=== PATIENT | female | born 1955 | race Caucasian/White ===

== ENCOUNTER 2016-12-29 13:51 | Emergency (ER) | payer OTHER ==
[~2016-12-29] VITALS: Ht 157.5 cm; Wt 75.0 kg
[~2016-12-29 13:51] MED LIST: ADV1DS IH; AGM875T PO; ALBU2.5V4 IH; ALBU8.5H2 IH; AZEL137S11 NS; AZEL137S4 NS; AZIT-21 PO; AZIT250T5 PO; BENZ200C25 PO; BENZ200C51 PO; CETI10CA PO; CHLO500T2 PO; CHLO500T4 PO; CIPR500S2 PO; CODE118S2 PO; CYCL10TA9 PO; DIPH25TA82 PO; DOXY100C2 PO; FEXO180T84 PO; FLT05NA16 NS; FLUT16SP22 NS; FLUT1DIS3 IH; GABA-488 PO; GABA-490 PO; HYDR-3812 PO; HYDR-757 PO; IBUP-1780 PO; IBUP800T26 PO; LACT1CAP62 PO; LEVO500T2 PO; MELO-170 PO; METH4TAB PO; MINO100C6 PO; MMT17NA; MNTL10T PO; NAPR500T PO; OMAL150V SQ; OMEP-10 PO; OMEP20TA7 PO; OMEPRAZOLE; ONDA4TAB8 PO; PHEN200T27 PO; PRCD5U PO; PRD20T PO; TIOT18CA2 IH; TRAM50TA2 PO; flexeril PO
--- OUTSIDE RECORDS SUMMARY | 2016-12-29 13:57 | XMS REPORT | Continuity of Care Document ---
Author Author [facility] Organization [facility] Address Unknown Phone Unavailable Care Team Providers Care Talent Director Name Role Phone [facility] PCP Insurance Providers Payer Name Policy Number Subscriber Name Relationship Self Pay Devi You 18 Self / Same As Patient Advance Directives Directive Response Recorded Date/Time Advance Directives No 09/24/16 12:05pm Health Care Power of Authorizer No 09/24/16 12:05pm Organ Donor Yes 09/24/16 [...] Inhalation Twice A Day 1 PUFF Tiotropium [place] 1 Inh 1 Inh Inhalation Daily 04/17/15 [...] Salmeterol Xinafoate/Fluticasone 250 Mcg/50 Mcg Inh, 1 [place] Inhalation Every 12 Hours 06/08/14 Discontinued Mometasone Furoate 17 Gm Naspr, 1 [place] Nasal Twice A Day 06/08/14 Discontinued Meloxicam 7.5 Mg Tablet, 1 Each Oral Daily 06/08/14 Discontinued [Omeprazole] , Mg Three Times A Day 06/08/14 Discontinued Ciprofloxacin 500 Mg/5 Ml [place]..rec, 500 Mg Oral Twice A Day 06/08/14 Discontinued Phenazopyridine Hcl 200 Mg Tablet, 1 Each Oral Twice A Day 06/08/14 Discontinued Fluticasone Propionate 16 Gm [place], 1 [place] Nasal Daily 07/28/14 Discontinued Fexofenadine Hcl 180 [...] 08/20/15 Discontinued Azelastine Hcl 137 Mcg/0.137 Ml [place].pump, 137 Mcg Nasal 01/28/16 Discontinued Omeprazole 20 [...] Reaction Status Last Updated Sulfa (Sulfonamide Antibiotics) ([id number]) Allergy Unknown Active 03/17 Immunizations No immunization records. Vital Signs Acute Vital Signs Vital Response Date/Time Temperature (Fahrenheit) 97.3 degrees F (97.6 - 99.5) 09/28/2016 11:40am Temperature (Calculated Celsius) 36.03737 degrees C (36.4 - 37.5) 09/28/2016 11:40am [...] 2.00 inches 09/28/2016 11:40am Height (Calculated Centimeters) 157.243755 cm 09/28/2016 11:40am Weight (Pounds) 147 pounds 09/28/2016 11:40am Weight (Ounces) 5.3 oz 09/28/2016 11:40am Weight (Calculated Grams) 81358.332 gm 09/28/2016 11:40am Weight (Calculated Kilograms) 66.123839 kilograms 09/28/2016 11:40am Capillary Refill Capillary Refill Less Than 3 Seconds 09/28/2016 11:40am Height 5 ft 2 in Weight 147 lb Body Mass Index 26.9 kg/m^2 Results No known relevant diagnostic tests, laboratory data and/or discharge summary. Procedures No known history of procedures. Encounters Encounter Location Arrival/Admit Date Discharge/Depart Date Attending Provider Discharged Rec[facility]ring [facility] 09/28/16 11:08am 11:59pm LALITHA SQUIRES DO Departed Emergency Room [facility] 09/24/16 11:34am 2:09pm OBDULIO FOSTER MD Registered Clinic [facility] 09/04/16 1:47pm YVETTE ROSA
[2016-12-29] MEDS ORDERED: PRD20T PO (14:45)
[2016-12-29] MEDS ORDERED: TRAM-42 PO (14:45)
--- NOTE | 2016-12-29 14:45 | ED Hip Pain/Injury ---
General Chief Complaint: Hip/Pelvic Problems Stated Complaint: L HIP AND BACK PAIN Source: patient Exam Limitations: no limitations History of Present Illness Time seen by provider: 14:41 Initial Comments To ER with left hip pain for several years. She's had this evaluated by her doctor with x-rays and no findings she states. Over the course of the past week she's had pain in the left side of the low back that radiates down the left leg worse than usual. No loss of bowel or bladder control. No history of cancer. No fevers or chills. No saddle anesthesia. She's been taking Motrin at home with some relief. She denies any twisting or falling or any injury Timing/Duration: week Severity: moderate Location: hip (L) Method of Injury: unknown Allergies and Home Medications Allergies Coded Allergies: Sulfa (Sulfonamide Antibiotics) (Unverified Allergy, Unknown, 06/08/14) Home Medications Albuterol 8.5 Gm Hfa.aer.ad 1 PUFF IH Q4H PRN PRN SHORTNESS OF BREATH (Reported ) 1 PUFFS Albuterol Sulfate 2.5 Mg/3 Ml Vial.neb #30 2.5 MG IH Q4H PRN PRN SHORTNESS OF BREATH Prescribed by: OBDULIO BAUGH on 09/24/16 1352 Azelastine Hcl 137 Mcg [place].pump 2 SPRAYS NS BID (Reported) Benzonatate 200 Mg Capsule #20 200 MG PO TID PRN PRN COUGH Prescribed by: OBDULIO BAUGH on 09/24/16 1352 Cetirizine Hcl 10 Mg Capsule 10 MG PO DAILY (Reported) Chlorzoxazone 500 Mg Tablet 500 MG PO TID (Reported) Chlorzoxazone 500 Mg Tablet 500 MG PO TID (Reported) Diphenhydramine Hcl 25 Mg Tablet 1 EACH PO HS (Reported) Fluticasone Propionate 16 Gm [place].susp 16 GM NS BID (Reported) Fluticasone/Salmeterol 1 Each Disk.w.dev 0 IH BID (Reported) 1 PUFF Gabapentin 300 Mg Capsule 300 MG PO DAILY (Reported) Ibuprofen 800 Mg Tablet 800 MG PO Q8H PRN PRN PAIN (Reported) Montelukast Sodium 10 Mg Tablet #30 1 TAB PO DAILY (Reported) Naproxen 500 Mg Tablet #20 500 MG PO BID Prescribed by: SITA VERDUZCO on 06/19/162055 Omalizumab 150 Mg [place] 150 MG SQ UD (Reported) Omeprazole 20 Mg Capsule.dr 40 MG PO BID (Reported) Prednisone 20 Mg Tab #10 40 MG PO DAILY Prescribed by: SITA VERDUZCO on 06/19/162055 Tiotropium [place] 1 Inh Aerp 1 INH IH DAILY (Reported) Tramadol HCl 50 Mg Tablet #14 50 MG PO Q4H PRN PRN PAIN Prescribed by: SITA VERDUZCO on 06/19/162055 Constitutional: see HPI EENTM: see HPI Respiratory: no symptoms reported Cardiovascular: no symptoms reported Genitourinary: no symptoms reported Musculoskeletal: see HPI back pain Skin: no symptoms reported Psychiatric/Neurological: No Symptoms Reported Past Sjanchn-Fxtync-Exunri Hx Patient Social History Alcohol Use: Denies Use Recreational Drug Use: No Smoking Status: Never a Smoker Recent Foreign Travel: No Contact w/Someone Who Travel: No Recent Hopitalizations: No Immunizations Up To Date Tetanus Booster (TDap): Unknown Date of Influenza Vaccine: Aug 06, 2016 Seasonal Allergies Seasonal Allergies: Yes Surgeries HX Surgeries: Yes (HAITAL HERNIA REPAIR, CARPAL TUNNEL) Surgeries: Abdominal, Gallbladder, Hysterectomy, Orthopedic Respiratory Hx Respiratory Disorders: Yes Respiratory Disorders: Asthma, COPD Cardiovascular Hx Cardiac Disorders: No Neurological Hx Neurological Disorders: No 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 System Hx 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 Disorders: No SUPPLIES PACKER History: Hysterectomy Genitourinary Hx Genitourinary Disorders: No Gastrointestinal Hx Gastrointestinal Disorders: Yes Gastrointestinal Disorders: Gastroesophageal Reflux Musculoskeletal Hx Musculoskeletal Disorders: Yes (OSTEOARTHRITIS) Musculoskeletal Disorders: Arthritis Endocrine Hx Endocrine Disorders: No HEENT HX ENT Disorders: No Loss of Vision: Bilateral Hearing Impairment: Denies Cancer Hx Cancer: No Psychosocial Hx Psychiatric Problems: No Integumentary HX Skin/Integumentary Disorder: No Blood Transfusions Hx Blood Disorders: No Adverse Reaction to a Blood Tr: No Physical Exam Vital Signs Capillary Refill : General Appearance: No Apparent Distress WD/WN HEENT: PERRL/EOMI TMs Normal Neck: Full Range of Motion Normal Inspection Non Tender Cardiovascular: Regular Rate, Rhythm Normal Peripheral Pulses Respiratory: Normal Breath Sounds No Accessory Muscle Use No Respiratory Distress Gastrointestinal: Normal Bowel Sounds Non Tender Soft Back: Normal Inspection Extremity: Normal Capillary Refill Normal Range of Motion Neurologic/Psychiatric: Alert Oriented x3 No Motor/Sensory Deficits Skin: Normal Color Warm/Dry Comments Positive straight leg raise on the left. Normal sensation in the toes Departure Impression Impression: Primary Impression: Lumbar radiculopathy Disposition: 01 HOME, SELF-CARE Condition: Stable Departure-Patient Inst. Decision time for Depature: 14:42 Referrals: [facility] (PCP/Family) Primary Care Physician Patient Instructions: Radiculopathy Add. Discharge Instructions: 1. Return to ER for any concerns 2. Follow-up with your doctor next week to discuss whether or not to obtain an MRI of your back 3. Steroids and pain medication as directed All discharge instructions reviewed with patient and/or family. Voiced understanding. Scripts Tramadol HCl (Ultram)50 Mg Jioabx23 Mg PO Q6H PRN PAIN #14 TAB Prov:NILA LEE APRN 12/29/16 Prednisone 20 Mg Tab40 Mg PO DAILY #8 TAB Prov:NILA LEE APRN 12/29/16 NILA LEE APRN Dec 29, 2016 14:45
[2016-12-29 14:56] VITALS: BP 126/81
== END 2016-12-29 14:56 | disposition home or self-care (01) ==
LOC: EDUNIT# 13:51 → ER 13:52
DX: M54.16 Radiculopathy, lumbar region (principal); J44.9 Chronic obstructive pulmonary disease, unspecified; Z79.899 Other long term (current) drug therapy
CPT/HCPCS: 99283

== ENCOUNTER 2017-01-22 13:47 | Outpatient (RCR) | payer OTHER ==
--- OUTSIDE RECORDS SUMMARY | 2016-10-26 09:56 | XMS REPORT | Continuity of Care Document ---
Author Author [facility] Organization [facility] Address Unknown Phone Unavailable Care Team Providers Care Vice President For Philanthropy Name Role Phone [facility] OF PCP Insurance Providers Payer Name Policy Number Subscriber Name Relationship Self Pay Devi You 18 Self / Same As Patient Advance Directives Directive Response Recorded Date/Time Advance Directives No 09/24/16 12:05pm Health Care Power of Bilingual Speech Therapist No 09/24/16 12:05pm Organ Donor Yes 09/24/16 12:05pm Problems Active Problems Medical Problem Onset Date Status Acute low back pain Unknown Acute Bronchitis Unknown Acute COPD exacerbation Unknown Acute Chronic cough Unknown Acute Concussion without loss of consciousness Unknown Acute Dog bite Unknown Acute Effusion, right knee Unknown Acute Fall Unknown Acute Gastroenteritis Unknown Acute Infiltrate noted on imaging study Unknown Acute Pain in right paraspinal region Unknown Acute Pyelonephritis Unknown Acute Right knee pain Unknown Acute Right shoulder strain Unknown Acute Soft tissue infection Unknown Acute Urinary tract infection Unknown Acute Medications Current Home Medications Medication Dose Units Route Directions Days/Qty Instructions Start Date Azelastine Hcl 137 Mcg 2 Sprays Nasal Twice A Day 06/08/14 Gabapentin 300 Mg 300 Mg Oral Daily 06/08/14 Diphenhydramine Hcl (Benadryl) 25 Mg 1 Each Oral Bedtime 07/28/14 Montelukast Sodium 10 Mg 1 Tab Oral Daily 30 07/28/14 Albuterol 8.5 Gm 1 Puff Inhalation Every 4HRS as needed for Shortness Of Breath 1 PUFFS 07/28/14 Fluticasone/Salmeterol 1 Each 0 Inhalation Twice A Day 1 PUFF Tiotropium [place] 1 Inh 1 Inh Inhalation Daily 04/17/15 Cetirizine Hcl 10 Mg 10 Mg Oral Daily 04/17/15 Omeprazole 20 Mg 40 Mg Oral Twice A Day 04/17/15 Chlorzoxazone 500 Mg 500 Mg Oral Three Times A Day 04/17/15 Omalizumab 150 Mg 150 Mg Sub-Q As Directed 01/28/16 Fluticasone Propionate 16 Gm 16 Gm Nasal Twice A Day 01/28/16 Chlorzoxazone 500 Mg 500 Mg Oral Three Times A Day 01/28/16 Ibuprofen 800 Mg 800 Mg Oral Every 8HRS as needed for Pain 01/28/16 Prednisone 20 Mg 40 Mg Oral Daily 10 06/19/16 Naproxen 500 Mg 500 Mg Oral Twice A Day 20 06/19/16 Tramadol Hcl 50 Mg 50 Mg Oral Every 4HRS as needed for Pain 14 Prednisone 20 Mg 20 Mg Oral As Directed 18 3 daily for 3 days, then 2 daily for 3 days, then one daily for 3 days 09/24/16 Azithromycin 250 Mg 250 Mg Oral As Directed 6 TAKE 2 TABLETS ON DAY ONE THEN TAKE 1 TABLET DAILY FOR FOUR MORE DAYS 09/24/16 Benzonatate 200 Mg 200 Mg Oral Three Times A Day as needed for Cough 20 09/24/16 Albuterol Sulfate 2.5 Mg/3 Ml 2.5 Mg Inhalation Every 4HRS as needed for Shortness Of Breath 30 09/24/16 Past Home Medications Medication Directions Ordered Status Salmeterol Xinafoate/Fluticasone 250 Mcg/50 Mcg Inh, 1 [place] Inhalation Every 12 Hours 06/08/14 Discontinued Mometasone Furoate 17 Gm Naspr, 1 [place] Nasal Twice A Day 06/08/14 Discontinued Meloxicam 7.5 Mg Tablet, 1 Each Oral Daily 06/08/14 Discontinued [Omeprazole] , Mg Three Times A Day 06/08/14 Discontinued Ciprofloxacin 500 Mg/5 Ml [place]..rec, 500 Mg Oral Twice A Day 06/08/14 Discontinued Phenazopyridine Hcl 200 Mg Tablet, 1 Each Oral Twice A Day 06/08/14 Discontinued Fluticasone Propionate 16 Gm [place], 1 [place] Nasal Daily 07/28/14 Discontinued Fexofenadine Hcl 180 Mg Tablet, 180 Mg Oral Daily 07/28/14 Discontinued Cyclobenzaprine Hcl (Flexeril) 10 Mg Tablet, 1 Each Oral Q8hr Prn as needed for Spasms 07/28/14 Discontinued Promethazine/Codeine 5 Ml Syrp, 5-10 Ml Oral Every 6 Hours as needed for Cough 12/26/14 Discontinued Mometasone Furoate 17 Gm Naspr, 1 Gm Nasal 02/03/15 Discontinued Ibuprofen (Motrin) 800 Mg Tablet, 800 Mg Oral Every 8 Hours as needed for Pain 02/03/15 Discontinued Azithromycin (Zpak) 250 Mg Tab, 0 Oral Z-Dwight 04/17/15 Discontinued Benzonatate (Tessalon Perles) 200 Mg Capsule, 1 Each Oral Give Every 8 Hrs On Schedule as needed for Cough 04/17/15 Discontinued Promethazine Hcl/Codeine 120 Ml Syrup, 1 Tsp Oral Every 6 Hours as needed for Cough 04/17/15 Discontinued Amoxicillin/Clavulanate K 875 Mg Tab, 1 Tab Oral Twice A Day 05/02/15 Discontinued Doxycycline Hyclate (Vibramycin) 100 Mg Capsule, 1 Each Oral Twice A Day 02/16 Discontinued Lactobacillus Acidophilus 1 Each Capsule, 1 Each Oral Twice A Day 05/07/15 Discontinued Hydrocodone Bit/Acetaminophen 1 Each Tablet, 1 Ea Oral Every 6 Hours as needed for Severe Pain 05/07/15 Discontinued Minocycline Hcl 100 Mg Capsule, 100 Mg Oral Twice A Day 05/07/15 Discontinued Hydrocodone/Acetaminophen 1 Each Tablet, 1-2 Each Oral Every 6 Hours as needed for Pain 08/08/15 Discontinued [Flexeril] , 10 Mg Oral Twice A Day 08/20/15 Discontinued Azithromycin 250 Mg Tablet, 250 Mg Oral As Directed 08/20/15 Discontinued Methylprednisolone 4 Mg Tab.ds.pk, 4 Mg Oral As Directed 08/20/15 Discontinued Levofloxacin 500 Mg Tablet, 500 Mg Oral Daily 08/20/15 Discontinued Azelastine Hcl 137 Mcg/0.137 Ml [place].pump, 137 Mcg Nasal 01/28/16 Discontinued Omeprazole 20 Mg Tablet.dr, 40 Mg Oral Twice A Day 01/28/16 Discontinued Gabapentin 400 Mg Capsule, 400 Mg Oral 01/28/16 Discontinued Ondansetron 4 Mg Tab.rapdis, 4 Mg Oral Every 4HRS for Nausea/Vomiting Discontinued Social History Social History Problem Response Recorded Date/Time Alcohol Use Denies Use 01/28/2016 12:29am Recreational Drug Use No 01/28/2016 12:29am Recent Foreign Travel No 07/04/2016 9:26am Do you dip or chew tobacco? No 01/28/2016 12:29am Recent Hopitalizations No 09/24/2016 12:05pm Hospital Discharge Instructions No hospital discharge instructions. Plan of Care Prescriptions See Medication Section Functional Status No functional status results. Allergies, Adverse Reactions, Alerts Allergen Type Severity Reaction Status Last Updated Sulfa (Sulfonamide Antibiotics) ([id number]) Allergy Unknown Active 03/17 Immunizations No immunization records. Vital Signs Acute Vital Signs Vital Response Date/Time Temperature (Fahrenheit) 97.3 degrees F (97.6 - 99.5) 09/28/2016 11:40am Temperature (Calculated Celsius) 36.20939 degrees C (36.4 - 37.5) 09/28/2016 11:40am Temperature Source Temporal 09/28/2016 11:40am Pulse Rate (adult) 97 bpm (60 - 90) 09/28/2016 11:40am Respiratory Rate 16 bpm (12 - 24) 09/28/2016 11:40am O2 Sat by Pulse Oximetry 98 % (88 - 100) 09/24/2016 2:09pm Blood Pressure 124/73 mm Hg 09/28/2016 11:40am Blood Pressure Mean 90 mm Hg 09/28/2016 11:40am Pain Numeric Pain Scale 0-No Pain 09/28/2016 11:40am Height (Feet) 5 feet 09/28/2016 11:40am Height (Inches) 2.00 inches 09/28/2016 11:40am Height (Calculated Centimeters) 157.050091 cm 09/28/2016 11:40am Weight (Pounds) 147 pounds 09/28/2016 11:40am Weight (Ounces) 5.3 oz 09/28/2016 11:40am Weight (Calculated Grams) 34805.332 gm 09/28/2016 11:40am Weight (Calculated Kilograms) 66.775412 kilograms 09/28/2016 11:40am Capillary Refill Capillary Refill Less Than 3 Seconds 09/28/2016 11:40am Height 5 ft 2 in Weight 147 lb Body Mass Index 26.9 kg/m^2 Results No known relevant diagnostic tests, laboratory data and/or discharge summary. Procedures No known history of procedures. Encounters Encounter Location Arrival/Admit Date Discharge/Depart Date Attending Provider Discharged [facility]ring [facility] 09/28/16 11:08am 11:59pm LALITHA SQUIRES DO Departed Emergency Room [facility] 09/24/16 11:34am 2:09pm OBDULIO FOSTER MD Registered Clinic [facility] 09/04/16 1:47pm YVETTE ROSA
[2016-10-26] MEDS: OMALIZUMAB 150 MG (XOLAIR) VIAL FREE STOCK SQ SCH (10:29)
[2016-10-26 10:34] VITALS: BP 114/73
[2016-11-27] MEDS: OMALIZUMAB 150 MG (XOLAIR) VIAL FREE STOCK SQ SCH (13:09)
[2016-11-27 13:10] VITALS: BP 112/71
[2016-12-25 13:45] VITALS: BP 117/74
[2016-12-25] MEDS: OMALIZUMAB 150 MG (XOLAIR) VIAL FREE STOCK SQ SCH (13:45)
[~2017-01-22] VITALS: Ht 157.5 cm; Wt 66.8 kg
[~2017-01-22 13:47] MED LIST changes: +TRAM-42 PO
[2017-01-22] MEDS: OMALIZUMAB 150 MG (XOLAIR) VIAL FREE STOCK SQ SCH (14:31)
[2017-01-22 14:35] VITALS: BP 134/83
== END 2017-01-24 | disposition home or self-care (01) ==
LOC: SDC 13:47
PROVIDERS: ATTEND Internal Medicine Critical Care Medicine
DX: J45.909 Unspecified asthma, uncomplicated (principal); J44.9 Chronic obstructive pulmonary disease, unspecified; R05 Cough; R06.00 Dyspnea, unspecified
CPT/HCPCS: 96372

== ENCOUNTER 2017-04-26 10:53 | Outpatient (RCR) | payer OTHER ==
[2017-02-22 12:49] VITALS: BP 130/80
[2017-02-22] MEDS: OMALIZUMAB SUB-Q 150 MG (XOLAIR) VIAL SQ SCH (12:49)
[2017-03-29 10:20] VITALS: BP 112/78
[2017-03-29] MEDS: OMALIZUMAB SUB-Q 150 MG (XOLAIR) VIAL SQ SCH (10:58)
[~2017-04-26] VITALS: Ht 157.5 cm; Wt 66.8 kg
[2017-04-26 11:30] VITALS: BP 126/73
[2017-04-26] MEDS: OMALIZUMAB SUB-Q 150 MG (XOLAIR) VIAL SQ SCH (11:35)
== END 2017-05-23 | disposition home or self-care (01) ==
LOC: SDC 10:53
PROVIDERS: ATTEND Internal Medicine Critical Care Medicine
DX: J45.909 Unspecified asthma, uncomplicated (principal); J44.9 Chronic obstructive pulmonary disease, unspecified; R05 Cough; R06.00 Dyspnea, unspecified
CPT/HCPCS: 96372

== ENCOUNTER 2017-07-22 11:22 | Outpatient (RCR) | payer OTHER ==
[2017-05-27] MEDS: OMALIZUMAB SUB-Q 150 MG (XOLAIR) VIAL SQ SCH (11:59)
[2017-05-27 12:16] VITALS: BP 117/74
[2017-06-24] MEDS: OMALIZUMAB SUB-Q 150 MG (XOLAIR) VIAL SQ SCH (11:29)
[2017-06-24 11:31] VITALS: BP 123/84
[~2017-07-22] VITALS: Ht 157.5 cm; Wt 66.8 kg
[~2017-07-22 11:22] MED LIST changes: +LORazepam INJ 2 MG/ML (ATIVAN) VIAL ONE
[2017-07-22] MEDS ORDERED: OMALIZUMAB 150 MG (XOLAIR) VIAL FREE STOCK SQ SCH (11:30)
[2017-07-22 12:05] VITALS: BP 119/75
== END 2017-08-03 | disposition home or self-care (01) ==
LOC: SDC 11:22
PROVIDERS: ATTEND Internal Medicine Critical Care Medicine
DX: J45.909 Unspecified asthma, uncomplicated (principal); J44.9 Chronic obstructive pulmonary disease, unspecified; R05 Cough; R06.00 Dyspnea, unspecified
CPT/HCPCS: 96372

== ENCOUNTER 2017-10-20 18:34 | Emergency (ER) | payer SELFPAY ==
[~2017-10-20] VITALS: Ht 157.5 cm; Wt 74.8 kg
[~2017-10-20 18:34] MED LIST changes: +AZIT250T12 PO; -AZIT250T5 PO; -LORazepam INJ 2 MG/ML (ATIVAN) VIAL ONE; +NAPR-1071 PO; -NAPR500T PO
--- OUTSIDE RECORDS SUMMARY | 2017-10-20 18:40 | XMS REPORT ---
Author Author TARIQ TATE [facility] Address [address] [place] [address] Care Team Providers Care Glaze Handler Name Role Phone TARIQ TATE Unavailable PROBLEMS Type Condition ICD9-CM Code VII25-DN Code Onset Dates Condition Status SNOMED Code Problem Enthesopathy of unspecified site 726.90 Active 67295238 Problem Osteoarthritis of both knees, unspecified osteoarthritis type M17.0 Active 480680081 Problem COPD (chronic obstructive pulmonary disease) 496 Active 05427251 Problem Unspecified breast screening V76.10 Active 923481689 Problem Moderate episode of recurrent major depressive disorder F33.1 Active 588919440 Problem Sciatic leg pain M54.30 Active 50048354 Problem Other depression F32.8 Active 46463501 Problem Hip bursitis, left M70.72 Active 97133196 Problem Chronic obstructive pulmonary disease, unspecified COPD type J44.9 Active 65954911 Problem Arthralgia of right temporomandibular joint M26.62 Active 41030494 ALLERGIES Substance Reaction Event Type Date Status Sulfamethoxazole nausea and vomiting Drug Allergy Jan, Active SOCIAL HISTORY Never Assessed PLAN OF CARE Activity Details Follow Up 4 Weeks Reason:leg pain VITAL SIGNS Height 62 in 2017-01-10 Weight 164.4 lbs 2017-01-10 Temperature 99.3 degrees Fahrenheit 2017-01-10 Heart Rate 88 bpm 2017-01-10 Respiratory Rate 16 2017-01-10 BMI 30.07 kg/m2 2017-01-10 Blood pressure systolic 120 mmHg 2017-01-10 Blood pressure diastolic 62 mmHg 2017-01-10 MEDICATIONS Medication Instructions Dosage Frequency Start Date End Date Duration Status Benadryl 25 MG Orally every 6 hrs 1 capsule as needed 6h Active Gabapentin 300 MG Orally 3 times a day 1 capsule 8h Active Omeprazole 20 MG Orally 2 times a day 2 capsules 12h Active Diclofenac Sodium 50 mg Orally Three times a day 1 tablet with food or milk 8h Jan, Active Spiriva HandiHaler 18 MCG Inhalation Once a day 1 capsule 24h Active Singulair 10 MG Orally Once a day 1 tablet 24h Active Albuterol 90 mcg/actuation by inhalation 4 times a day 2 puffs 6h Active Flonase 50 MCG/ACT Nasally 2 times a day 2 spray in each nostril 12h Active EPINEPHrine 0.3 MG/0.3ML Injection PRN as directed Aug, Active Advair Diskus 250 mcg-50 mcg Inhalation 2 times a day 1 puffs 12h Active Parafon Forte DSC 500 mg Orally Three times a day PRN. Must last one month 1 tablet Active Fluoxetine 20 mg Orally Once a day 2 capsule in the morning 24h Jun, Active Xolair 150 MG Active RESULTS No Results PROCEDURES No Known procedures IMMUNIZATIONS No Known Immunizations MEDICAL (GENERAL) HISTORY Type Description Date Medical History acid reflux Medical History hernia- Hiatel dx in 1999 Medical History asthma Medical History seasonal allergies Medical History chronic obstructive pulmonary disease (COPD) Medical History last mammogram 2014 reported as normal Medical History Depression Surgical History Bladder tied up 1999 Surgical History Post Cholecystectomy 1999 Surgical History Neuroplasty with transportation of median nerve at carpal tunnel right wrist Unknown Surgical History appendectomy 1999 Surgical History hysterectomy, total with bilateral salpingo-oophorectomy (BSO ) 2001 Hospitalization History surgeries Hospitalization History ER for left hip pain 12/2016
--- OUTSIDE RECORDS SUMMARY | 2017-10-20 18:40 | XMS REPORT ---
Author Author TARIQ TATE Organization [employer] Address Unknown Phone Unavailable Care Team Providers Care Locomotive Electrician Name Role Phone TARIQ TATE CP Unavailable Allergies No Known Allergies Problems Problem Type Condition Code Onset Dates Condition Status Problem Unspecified breast screening V76.10 Active Problem Influenza with other respiratory manifestations 487.1 Active Problem Need for prophylactic vaccination and inoculation, Influenza V04.81 Active Problem Osteoarthritis of both knees, unspecified osteoarthritis type M17.0 Active Problem Hip bursitis, left M70.72 Active Problem Other depression F32.8 Active Problem Allergic rhinitis, cause unspecified 477.9 Active Problem Acute sinusitis, unspecified 461.9 Active Problem COPD (chronic obstructive pulmonary disease) 496 Active Problem Unspecified otitis media 382.9 Active Problem Unspecified sinusitis (chronic) 473.9 Active Problem Cough 786.2 Active Problem Unspecified arthropathy, site unspecified 716.90 Active Problem Enthesopathy of unspecified site 726.90 Active Problem Acute bronchitis 466.0 Active Problem Acute upper respiratory infections of unspecified site 465.9 Active Problem Shortness of breath 786.05 Active Problem Unspecified myalgia and myositis 729.1 Active Problem Urinary tract infection, site not specified 599.0 Active Medications Medication Code System Code Instructions Start Date End Date Status Dosage Spiriva HandiHaler [facility] [id number] 18 MCG Inhalation Once a day 1 capsule Results No Known Results Summary Purpose [employer] Submission
--- OUTSIDE RECORDS SUMMARY | 2017-10-20 18:40 | XMS REPORT ---
Author Author DALIA MCCRACKEN Organization [employer] Address Unknown Phone Unavailable Care Team Providers Care Fuel Cell Technician Name Role Phone DALIA MCCRACKEN CP Unavailable Allergies No Known Allergies Problems Problem Type Condition Code Onset Dates Condition Status Problem Urinary tract infection, site not specified 599.0 Active Problem Need for prophylactic vaccination and inoculation, Influenza V04.81 Active Problem Unspecified breast screening V76.10 Active Problem Hip bursitis, left M70.72 Active Problem COPD (chronic obstructive pulmonary disease) 496 Active Problem Osteoarthritis of both knees, unspecified osteoarthritis type M17.0 Active Problem Acute sinusitis, unspecified 461.9 Active Problem Influenza with other respiratory manifestations 487.1 Active Problem Unspecified otitis media 382.9 Active Problem Allergic rhinitis, cause unspecified 477.9 Active Problem Unspecified arthropathy, site unspecified 716.90 Active Problem Unspecified sinusitis (chronic) 473.9 Active Problem Unspecified myalgia and myositis 729.1 Active Problem Enthesopathy of unspecified site 726.90 Active Problem Cough 786.2 Active Problem Acute bronchitis 466.0 Active Problem Acute upper respiratory infections of unspecified site 465.9 Active Problem Shortness of breath 786.05 Active Medications No Known Medications Results No Known Results Summary Purpose [employer] Submission
--- OUTSIDE RECORDS SUMMARY | 2017-10-20 18:41 | XMS REPORT ---
Author Author TARIQ TATE Organization [employer] Address Unknown Phone Unavailable Care Team Providers Care Instrument Processing Tech Name Role Phone TARIQ TATE CP Unavailable Allergies No Known Allergies Problems Problem Type Condition Code Onset Dates Condition Status Problem Other depression F32.8 Active Problem Osteoarthritis of both knees, unspecified osteoarthritis type M17.0 Active Problem Arthralgia of right temporomandibular joint M26.62 Active Problem Unspecified breast screening V76.10 Active Problem Enthesopathy of unspecified site 726.90 Active Problem Hip bursitis, left M70.72 Active Problem COPD (chronic obstructive pulmonary disease) 496 Active Medications No Known Medications Results No Known Results Summary Purpose [employer] Submission
--- OUTSIDE RECORDS SUMMARY | 2017-10-20 18:41 | XMS REPORT ---
Author Author TARIQ TATE Organization [employer] Address Unknown Phone Unavailable Care Team Providers Care Multigrapher Name Role Phone TARIQ TATE CP Unavailable Allergies No Known Allergies Problems Problem Type Condition Code Onset Dates Condition Status Problem Acute bronchitis 466.0 Active Problem Urinary tract infection, site not specified 599.0 Active Problem Shortness of breath 786.05 Active Problem Unspecified otitis media 382.9 Active Problem Allergic rhinitis, cause unspecified 477.9 Active Problem COPD (chronic obstructive pulmonary disease) 496 Active Problem Need for prophylactic vaccination and inoculation, Influenza V04.81 Active Problem Unspecified breast screening V76.10 Active Problem Acute sinusitis, unspecified 461.9 Active Problem Influenza with other respiratory manifestations 487.1 Active Problem Cough 786.2 Active Problem Acute upper respiratory infections of unspecified site 465.9 Active Problem Unspecified arthropathy, site unspecified 716.90 Active Problem Unspecified myalgia and myositis 729.1 Active Problem Unspecified sinusitis (chronic) 473.9 Active Problem Enthesopathy of unspecified site 726.90 Active Medications Medication Code System Code Instructions Start Date End Date Status Dosage Gabapentin [facility] [address]-56 400 MG Orally Once a day 1 capsule Parafon Forte DSC [facility] [address]-76 500 MG Orally Three times a day PRN. Must last one month February 22, 2015 1 tablet Results No Known Results Summary Purpose eClinicalWorks Submission
--- OUTSIDE RECORDS SUMMARY | 2017-10-20 18:41 | XMS REPORT ---
Author Author TARIQ TATE [facility] Address [address] [place] [address] Care Team Providers Care Transformer Repairer Name Role Phone TARIQ TATE Unavailable PROBLEMS Type Condition ICD9-CM Code [id number] Code Onset Dates Condition Status SNOMED Code Problem Enthesopathy of unspecified site 726.90 Active 61469353 Problem Osteoarthritis of both knees, unspecified osteoarthritis type M17.0 Active 373139079 Problem COPD (chronic obstructive pulmonary disease) 496 Active 32745079 Problem Unspecified breast screening V76.10 Active 773965491 Problem Moderate episode of recurrent major depressive disorder F33.1 Active 649181680 Problem Sciatic leg pain M54.30 Active 20995501 Problem Other depression F32.8 Active 95537685 Problem Hip bursitis, left M70.72 Active 98691439 Problem Chronic obstructive pulmonary disease, unspecified COPD type J44.9 Active 39270677 Problem Arthralgia of right temporomandibular joint M26.62 Active 65265906 ALLERGIES No Information SOCIAL HISTORY Never Assessed PLAN OF CARE VITAL SIGNS MEDICATIONS Medication Instructions Dosage Frequency Start Date End Date Duration Status Fluoxetine 20 mg Orally Once a day 2 capsule in the morning 24h Jun, Active RESULTS No Results PROCEDURES No Known [...]
--- OUTSIDE RECORDS SUMMARY | 2017-10-20 18:41 | XMS REPORT ---
Author Author THEO GRIER [facility] e[employer] Address Unknown Phone Unavailable Care Team Providers Care Crown Ceramist Name Role Phone THEO GRIER CP Unavailable Allergies, Adverse Reactions, Alerts Substance Reaction Event Type Sulfamethoxazole nausea and vomiting Drug Allergy Problems Problem Type Condition Code Onset Dates [...] Influenza with other respiratory manifestations 487.1 Active Assessment Encounter for immunization Z23 Active Assessment Screening breast examination Z12.39 Active Problem Cough 786.2 Active Problem Acute upper respiratory infections of unspecified site 465.9 Active Problem Unspecified arthropathy, site unspecified 716.90 Active Problem Unspecified myalgia and myositis 729.1 Active Problem Unspecified sinusitis (chronic) 473.9 Active Problem Enthesopathy of unspecified site 726.90 Active Medications Medication Code System Code Instructions Start Date End Date Status Dosage Singulair [facility] [address]-46 10 MG Orally Once a day 1 tablet Ibuprofen [facility] [address]-80 800 MG Orally Three times a day April 26, 2015 1 tablet Omeprazole [facility] [address]-02 20 MG Orally 2 times a day 2 capsules Gabapentin [facility] [address]-81 400 MG Orally Once a day 1 capsule Albuterol ND 0 90 mcg/actuation by inhalation 4 times a day 2 puffs Benadryl [facility] [address]-94 25 MG Orally every 6 hrs 1 capsule as needed Advair Diskus [facility] [address]-26 250 mcg-50 mcg Inhalation 2 times a day 1 puffs Parafon Forte DSC [facility] [address]-69 500 MG Orally Three times a day PRN. Must last one month February 22, 2015 1 tablet Spiriva HandiHaler [facility] [address]-97 18 MCG Inhalation Once a day 1 capsule Procedures Procedure Coding System Code Date PCV 13 CPT-4 74568 Aug 17, 2015 FLUARIX QUAD (3 & UP)-GSK-2014 CPT-4 92700 Aug 17, 2015 Preventive Care Est Pt. Age 40-64 CPT-4 18042 Aug 17, 2015 IMMUNIZATION ADMIN, EACH ADD (please include units) CPT-4 57235 Aug 17, 2015 SINGLE IMMUNIZATION ADMIN CPT-4 39224 Aug 17, 2015 Vital Signs Date/Time: Aug 17, 2015 Temperature 98.4 F Weight 165.0 lbs Height 62 in BMI 30.18 Index Blood Pressure Diastolic 76 mmHg Blood Pressure Systolic 100 mmHg Cardiac Monitoring Heart Rate 72 bpm Results No Known Results Immunizations Vaccine Administration Date FLUARIX QUAD (3 & UP)-GSK-2014Aug 17, 2015 PCV 13 Aug 17, 2015 Summary Purpose eClinicalWorks Submission
--- OUTSIDE RECORDS SUMMARY | 2017-10-20 18:41 | XMS REPORT ---
Author Author TARIQ TATE Organization [employer] Address Unknown Phone Unavailable Care Team Providers Care Satin Finisher Name Role Phone TARIQ TATE CP Unavailable [...] Instructions Start Date End Date Status Dosage EPINEPHrine [facility] [place] [address]-31 0.3 MG/0.3ML Injection PRN Aug 24, 2015 as directed Results No Known Results Summary Purpose eClinicalWorks Submission
--- OUTSIDE RECORDS SUMMARY | 2017-10-20 18:41 | XMS REPORT ---
Author Author TARIQ TATE Organization [employer] Address Unknown Phone Unavailable Care Team Providers Care Wheel Press Operator Name Role Phone TARIQ TATE CP Unavailable [...] Enthesopathy of unspecified site 726.90 Active Medications No Known Medications Results No Known Results Summary Purpose eClinicalWorks Submission
--- OUTSIDE RECORDS SUMMARY | 2017-10-20 18:42 | XMS REPORT ---
Author Author TARIQ TATE Organization [employer] Address Unknown Phone Unavailable Care Team Providers Care Group Work Program Aide Name Role Phone TARIQ TATE CP Unavailable [...] Instructions Start Date End Date Status Dosage EpiPen 2-Dwight [facility] [address]-02 0.3 MG/0.3ML Injection PRN Aug 24, 2015 as directed Results No Known Results Summary Purpose eClinicalWorks Submission
--- OUTSIDE RECORDS SUMMARY | 2017-10-20 18:42 | XMS REPORT ---
Author Author TARIQ TATE [facility] Address [address] [place] [address] Care Team Providers Care Pattern Hanger Name Role Phone TARIQ TATE Unavailable PROBLEMS Type Condition ICD9-CM Code [id number] Code Onset Dates Condition Status SNOMED Code Problem Enthesopathy of unspecified site 726.90 Active 67096289 Problem Osteoarthritis of both knees, unspecified osteoarthritis type M17.0 Active 711831782 Problem COPD (chronic obstructive pulmonary disease) 496 Active 63279091 Problem Unspecified breast screening V76.10 Active 943926200 Problem Moderate episode of recurrent major depressive disorder F33.1 Active 611485216 Problem Sciatic leg pain M54.30 Active 41385212 Problem Other depression F32.8 Active 63818060 Problem Hip bursitis, left M70.72 Active 03160145 Problem Chronic obstructive pulmonary disease, unspecified COPD type J44.9 Active 39678586 Problem Arthralgia of right temporomandibular joint M26.62 Active 51564098 ALLERGIES No Information SOCIAL HISTORY Never Assessed PLAN OF CARE VITAL SIGNS MEDICATIONS Unknown Medications RESULTS No Results PROCEDURES No Known procedures [...]
--- OUTSIDE RECORDS SUMMARY | 2017-10-20 18:42 | XMS REPORT ---
Author Author TARIQ TATE [facility] Address [address] [place] [address] Care Team Providers Care Facilities Administrator Name Role Phone TARIQ TATE Unavailable PROBLEMS Type Condition ICD9-CM Code [id number] Code Onset Dates Condition Status SNOMED Code Problem Enthesopathy of unspecified site 726.90 Active 83009549 Problem Osteoarthritis of both knees, unspecified osteoarthritis type M17.0 Active 680150995 Problem COPD (chronic obstructive pulmonary disease) 496 Active 56055141 Problem Unspecified breast screening V76.10 Active 084415525 Problem Moderate episode of recurrent major depressive disorder F33.1 Active 752047759 Problem Sciatic leg pain M54.30 Active 84225844 Problem Other depression F32.8 Active 28832341 Problem Hip bursitis, left M70.72 Active 34760836 Problem Chronic obstructive pulmonary disease, unspecified COPD type J44.9 Active 26859376 Problem Arthralgia of right temporomandibular joint M26.62 Active 70224314 ALLERGIES Unknown Allergies SOCIAL HISTORY No smoking Hx information available PLAN OF CARE VITAL SIGNS MEDICATIONS Medication Instructions Dosage Frequency Start Date End Date Duration Status Spiriva HandiHaler 18 MCG Inhalation Once a day 1 capsule 24h Active RESULTS No Results PROCEDURES No Known procedures IMMUNIZATIONS No Known Immunizations
--- OUTSIDE RECORDS SUMMARY | 2017-10-20 18:42 | XMS REPORT ---
Author Author YVETTE ROSA [facility] eClinicalWorks Address Unknown Phone Unavailable Care Team Providers Care Sales And Training Specialist Name Role Phone YVETTE ROSA CP Unavailable Allergies, Adverse Reactions, Alerts Substance Reaction Event Type Sulfamethoxazole nausea and vomiting Drug Allergy Problems Problem Type Condition Code Onset Dates Condition Status Assessment Encounter for well woman exam Z01.419 Active Problem Other depression F32.8 Active Problem Osteoarthritis of both knees, unspecified osteoarthritis type M17.0 Active Problem Arthralgia of right temporomandibular joint M26.62 Active Problem Unspecified breast screening V76.10 Active Problem Enthesopathy of unspecified site 726.90 Active Problem Hip bursitis, left M70.72 Active Problem COPD (chronic obstructive pulmonary disease) 496 Active Medications Medication Code System Code Instructions Start Date End Date Status Dosage Gabapentin [facility] [address]-23 400 MG Orally Once a day 1 capsule Ibuprofen [facility] [address]-06 800 MG Orally Three times a day April 26, 2015 1 tablet Omeprazole [facility] [address]-34 20 MG Orally 2 times a day 2 capsules EPINEPHrine [facility] [address]-98 0.3 MG/0.3ML Injection PRN Aug 24, 2015 as directed Xolair [facility] [address]-25 150 MG Subcutaneous not defined Flonase [facility] 27305189832 50 MCG/ACT Nasally 2 times a day 2 spray in each nostril Benadryl [facility] [address]-64 25 MG Orally every 6 hrs 1 capsule as needed Parafon Forte DSC [facility] [address]-28 500 MG Orally Three times a day PRN. Must last one month February 22, 2015 1 tablet Advair Diskus [facility] [address]-64 250 mcg-50 mcg Inhalation 2 times a day 1 puffs Singulair [facility] 63727923430 10 MG Orally Once a day 1 tablet Fluoxetine NDC 0 20 mg Orally Once a day Jun 04, 2016 2 capsule in the morning Flexeril [facility] [address]-49 10 MG Orally Three times a day 1 tablet Albuterol NDC 0 90 mcg/actuation by inhalation 4 times a day 2 puffs Spiriva HandiHaler [facility] [address]-01 18 MCG Inhalation Once a day 1 capsule Procedures Procedure Coding System Code Date Preventive Care Est Pt. Age 40-64 CPT-4 98918 Aug 13, 2016 Vital Signs Date/Time: Aug 13, 2016 Cardiac Monitoring Heart Rate 80 bpm Weight 162.2 lbs Height 62 in BMI 29.66 Index Blood Pressure Diastolic 68 mmHg Blood Pressure Systolic 126 mmHg Results No Known Results Summary Purpose eClinicalWorks Submission
--- OUTSIDE RECORDS SUMMARY | 2017-10-20 18:42 | XMS REPORT ---
Author Author TARIQ TATE Organization [employer] Address Unknown Phone Unavailable Care Team Providers Care Swimming Instructor Name Role Phone TARIQ TATE CP Unavailable [...] Instructions Start Date End Date Status Dosage Parafon Forte DSC [facility] [address]-18 500 MG Orally Three times a day PRN. Must last one month February 22, 2015 1 tablet Singulair [facility] [address]-32 10 MG Orally Once a day 1 tablet Results No Known Results Summary Purpose eClinicalWorks Submission
--- OUTSIDE RECORDS SUMMARY | 2017-10-20 18:42 | XMS REPORT ---
Author Author TARIQ TATE Organization [employer]ClinicalWorks Address Unknown Phone Unavailable Care Team Providers Care Polytechnic Teacher Name Role Phone TARIQ TATE CP Unavailable [...] Instructions Start Date End Date Status Dosage Advair Diskus [facility] [address]-84 250 mcg-50 mcg Inhalation 2 times a day 1 puffs Results No Known Results Summary Purpose eClinicalWorks Submission
--- OUTSIDE RECORDS SUMMARY | 2017-10-20 18:43 | XMS REPORT ---
Author Author TARIQ TATE [facility] Address [address] [place] [address] Care Team Providers Care Wire Inspector Name Role Phone TARIQ TATE Unavailable PROBLEMS Type Condition ICD9-CM Code [id number] Code Onset Dates Condition Status SNOMED Code Problem Enthesopathy of unspecified site 726.90 Active 58315370 Problem Osteoarthritis of both knees, unspecified osteoarthritis type M17.0 Active 519253485 Problem COPD (chronic obstructive pulmonary disease) 496 Active 44589864 Problem Unspecified breast screening V76.10 Active 885162193 Problem Moderate episode of recurrent major depressive disorder F33.1 Active 805861917 Problem Sciatic leg pain M54.30 Active 95993568 Problem Other depression F32.8 Active 43999727 Problem Hip bursitis, left M70.72 Active 70791070 Problem Chronic obstructive pulmonary disease, unspecified COPD type J44.9 Active 99659779 Problem Arthralgia of right temporomandibular joint M26.62 Active 31842075 ALLERGIES No Information SOCIAL HISTORY Never Assessed PLAN OF CARE VITAL SIGNS MEDICATIONS Medication Instructions Dosage Frequency Start Date End Date Duration Status Fluoxetine 40 mg Orally Once a day 1 capsule in the morning 24h Jun, 0 days Active Omeprazole 40 MG Orally 2 times a day 1 capsule 12h 0 days Active Diclofenac Sodium 50 mg Orally Three times a day 1 tablet with food or milk 8h Jan, 0 days Active Gabapentin 300 MG Orally 3 times a day 1 capsule 8h 0 days Active RESULTS No Results PROCEDURES No Known [...]
--- OUTSIDE RECORDS SUMMARY | 2017-10-20 18:43 | XMS REPORT ---
Author Author TARIQ TATE [facility] Address [address] [place] [address] Care Team Providers Care Financial Institution Vice President Name Role Phone TARIQ TATE Unavailable PROBLEMS Type Condition ICD9-CM Code WFT61-ZS Code Onset Dates Condition Status SNOMED Code Problem Enthesopathy of unspecified site 726.90 Active 61507785 Problem COPD (chronic obstructive pulmonary disease) 496 Active 12394094 Problem Unspecified breast screening V76.10 Active 296596233 Problem Sciatic leg pain M54.30 Active 82168956 Problem Chronic obstructive pulmonary disease, unspecified COPD type J44.9 Active 56003308 Problem Osteoarthritis of both knees, unspecified osteoarthritis type M17.0 Active 945898524 Problem Hip bursitis, left M70.72 Active 46099927 Problem Arthralgia of right temporomandibular joint M26.62 Active 13403533 Problem Other depression F32.8 Active 49543362 ALLERGIES Substance Reaction Event Type Date Status Sulfamethoxazole nausea and vomiting Drug Allergy Oct, Active SOCIAL HISTORY No smoking Hx information available PLAN OF CARE Activity Details Follow Up 3 Months Reason:depression VITAL SIGNS Height 62 in 2016-10-30 Weight 167.2 lbs 2016-10-30 Temperature 98.2 degrees Fahrenheit 2016-10-30 Heart Rate 90 bpm 2016-10-30 Respiratory Rate 18 2016-10-30 BMI 30.58 kg/m2 2016-10-30 Blood pressure systolic 106 mmHg 2016-10-30 Blood pressure diastolic 62 mmHg 2016-10-30 MEDICATIONS Medication Instructions Dosage Frequency Start Date End Date Duration Status Singulair 10 MG Orally Once a day 1 tablet 24h Active Albuterol 90 mcg/actuation by inhalation 4 times a day 2 puffs 6h Active Parafon Forte DSC 500 MG Orally Three times a day PRN. Must last one month 1 tablet Active Spiriva HandiHaler 18 MCG Inhalation Once a day 1 capsule 24h Active EPINEPHrine 0.3 MG/0.3ML Injection PRN as directed Aug, Active Fluoxetine 20 mg Orally Once a day 2 capsule in the morning 24h Jun, Active Omeprazole 20 MG Orally 2 times a day 2 capsules 12h Active Xolair 150 MG Active Advair Diskus 250 mcg-50 mcg Inhalation 2 times a day 1 puffs 12h Active Flonase 50 MCG/ACT Nasally 2 times a day 2 spray in each nostril 12h Active Ibuprofen 800 MG Orally Three times a day 1 tablet 8h Apr, Active Gabapentin 400 MG Orally Once a day 1 capsule 24h Active Benadryl 25 MG Orally every 6 hrs 1 capsule as needed 6h Active RESULTS No Results PROCEDURES Procedure Date Ordered Related Diagnosis Body Site Office Visit, Est Pt., Level 3 Oct 30, 2016 IMMUNIZATIONS No Known Immunizations
--- OUTSIDE RECORDS SUMMARY | 2017-10-20 18:43 | XMS REPORT ---
Author Author TARIQ TATE Organization eClinicalWorks Address Unknown Phone Unavailable Care Team Providers Care Office Technology Professor Name Role Phone TARIQ TATE CP Unavailable [...] Instructions Start Date End Date Status Dosage Azelastine HCl [facility] [address]-26 0.15 % Nasally Twice a day April 05, 2015 1 drop in each nostril Parafon Forte DSC [facility] [address]-60 500 MG Orally Three times a day PRN. Must last one month February 22, 2015 1 tablet Results No Known Results Summary Purpose eClinicalWorks Submission
--- OUTSIDE RECORDS SUMMARY | 2017-10-20 18:43 | XMS REPORT ---
Author Author TARIQ TATE [facility] Address [address] [place] [address] Care Team Providers Care Game Artist Name Role Phone TARIQ TATE Unavailable PROBLEMS Type Condition ICD9-CM Code JXP98-CY Code Onset Dates Condition Status SNOMED Code Problem Enthesopathy of unspecified site 726.90 Active 04191622 Problem Osteoarthritis of both knees, unspecified osteoarthritis type M17.0 Active 547651244 Problem COPD (chronic obstructive pulmonary disease) 496 Active 19794448 Problem Unspecified breast screening V76.10 Active 657631120 Problem Moderate episode of recurrent major depressive disorder F33.1 Active 670239400 Problem Sciatic leg pain M54.30 Active 07439071 Problem Other depression F32.8 Active 66627336 Problem Hip bursitis, left M70.72 Active 67186635 Problem Chronic obstructive pulmonary disease, unspecified COPD type J44.9 Active 81797123 Problem Arthralgia of right temporomandibular joint M26.62 Active 24752884 ALLERGIES No Information SOCIAL HISTORY Never Assessed [...]
--- OUTSIDE RECORDS SUMMARY | 2017-10-20 18:43 | XMS REPORT ---
Author Author TARIQ TATE [facility] Address [address] [place] [address] Care Team Providers Care Breaker Up Name Role Phone TARIQ TATE Unavailable PROBLEMS Type Condition ICD9-CM Code BTH04-VK Code Onset Dates Condition Status SNOMED Code Problem Enthesopathy of unspecified site 726.90 Active 08510742 Problem Osteoarthritis of both knees, unspecified osteoarthritis type M17.0 Active 558971967 Problem COPD (chronic obstructive pulmonary disease) 496 Active 51949043 Problem Unspecified breast screening V76.10 Active 918496017 Problem Moderate episode of recurrent major depressive disorder F33.1 Active 516374175 Problem Sciatic leg pain M54.30 Active 99046298 Problem Other depression F32.8 Active 53798561 Problem Hip bursitis, left M70.72 Active 73497210 Problem Chronic obstructive pulmonary disease, unspecified COPD type J44.9 Active 93331985 Problem Arthralgia of right temporomandibular joint M26.62 Active 06924242 ALLERGIES Unknown Allergies SOCIAL HISTORY No smoking Hx information available PLAN OF CARE VITAL SIGNS MEDICATIONS Unknown Medications RESULTS No Results PROCEDURES No Known procedures IMMUNIZATIONS No Known Immunizations
--- OUTSIDE RECORDS SUMMARY | 2017-10-20 18:43 | XMS REPORT ---
Author Author TARIQ TATE Organization [employer]ClinicalWorks Address Unknown Phone Unavailable Care Team Providers Care Boiler Operator Name Role Phone TARIQ TATE CP [...] Instructions Start Date End Date Status Dosage Flonase [facility] [address]-64 50 MCG/ACT Nasally 2 times a day Aug 12, 2015 2 spray in each nostril Results No Known Results Summary Purpose eClinicalWorks Submission
--- OUTSIDE RECORDS SUMMARY | 2017-10-20 18:43 | XMS REPORT ---
Author Author TARIQ TATE Organization [employer] Address Unknown Phone Unavailable Care Team Providers Care Pipelines Superintendent Name Role Phone TARIQ TATE CP Unavailable Allergies No Known Allergies Problems Problem Type Condition ICD-9 Code Onset Dates Condition Status Problem Acute [...] Date End Date Status Dosage Parafon Forte [facility] [address]-21 500 MG Orally Three times a day PRN. Must last one month February 22, 2015 1 tablet Results No Known Results Summary Purpose eClinicalWorks Submission
--- OUTSIDE RECORDS SUMMARY | 2017-10-20 18:44 | XMS REPORT ---
Author Author TARIQ TATE [facility] eClinicalWorks Address Unknown Phone Unavailable Care Team Providers Care Park Naturalist Name Role Phone TARIQ TATE CP Unavailable Allergies, Adverse Reactions, Alerts Substance [...] with other respiratory manifestations 487.1 Active Assessment Shoulder strain, right, initial encounter S46.911A Active Assessment Urinary tract infection N39.0 Active Problem Cough 786.2 Active Problem Acute upper respiratory infections of unspecified site 465.9 Active Problem Unspecified arthropathy, site unspecified 716.90 Active Problem Unspecified myalgia and myositis 729.1 Active Problem Unspecified sinusitis (chronic) 473.9 Active Problem Enthesopathy of unspecified site 726.90 Active Medications Medication Code System Code Instructions Start Date End Date Status Dosage Macrobid [facility] [address]-90 100 MG Orally every 12 hrs Aug 23, 2015Aug 1 capsule with food Omeprazole [facility] [address]-62 20 MG Orally 2 times a day 2 capsules PredniSONE [facility] [address]-12 5 MG Orally not defined Spiriva HandiHaler [facility] [address]-13 18 MCG Inhalation Once a day 1 capsule Levaquin [facility] [address]-83 500 MG Orally Once a day 1 tablet Singulair [facility] [address]-38 10 MG Orally Once a day 1 tablet Xolair [facility] [address]-20 150 MG Subcutaneous not defined Benadryl NDC [address]-10 25 MG Orally every 6 hrs 1 capsule as needed Advair Diskus [facility] [address]-15 250 mcg-50 mcg Inhalation 2 times a day 1 puffs Flexeril [facility] [address]-22 10 MG Orally Three times a day 1 tablet Albuterol NDC 0 90 mcg/actuation by inhalation 4 times a day 2 puffs Parafon Forte DSC [facility] [address]-85 500 MG Orally Three times a day PRN. Must last one month February 22, 2015 1 tablet Ibuprofen [facility] [address]-04 800 MG Orally Three times a day April 26, 2015 1 tablet Gabapentin [facility] [address]-23 400 MG Orally Once a day 1 capsule Procedures Procedure Coding System Code Date Office Visit, Est Pt., Level 3 CPT-4 89332 Aug 23, 2015 URINE CULTURE/COLONY COUNT CPT-4 68562 Aug 23, 2015 URINALYSIS, AUTO, W/O SCOPE CPT-4 35213 Aug 23, 2015 Vital Signs Date/Time: Aug 23, 2015 Temperature 98.5 F Weight 166.2 lbs Height 62 in BMI 30.40 Index Blood Pressure Diastolic 70 mmHg Blood Pressure Systolic 144 mmHg Cardiac Monitoring Heart Rate 68 bpm Results Name Result Date Reference Range Unit Abnormality Flag UA LONG DIP (IN HOUSE) Summary Purpose eClinicalWorks Submission
--- OUTSIDE RECORDS SUMMARY | 2017-10-20 18:44 | XMS REPORT ---
Author Author TARIQ TATE [facility] Address [address] [place] [address] Care Team Providers Care Allergist Immunologist Name Role Phone TARIQ TATE Unavailable PROBLEMS Type Condition ICD9-CM Code [id number] Code Onset Dates Condition Status SNOMED Code Problem Enthesopathy of unspecified site 726.90 Active 14742278 Problem Osteoarthritis of both knees, unspecified osteoarthritis type M17.0 Active 343568291 Problem COPD (chronic obstructive pulmonary disease) 496 Active 50348370 Problem Unspecified breast screening V76.10 Active 708212709 Problem Moderate episode of recurrent major depressive disorder F33.1 Active 362565549 Problem Sciatic leg pain M54.30 Active 87588061 Problem Other depression F32.8 Active 49817297 Problem Hip bursitis, left M70.72 Active 18153400 Problem Chronic obstructive pulmonary disease, unspecified COPD type J44.9 Active 77076068 Problem Arthralgia of right temporomandibular joint M26.62 Active 05462381 ALLERGIES No Information SOCIAL HISTORY Never Assessed PLAN OF CARE VITAL SIGNS MEDICATIONS Medication Instructions Dosage Frequency Start Date End Date Duration Status Singulair 10 mg Orally Once a day 1 tablet 24h Active Advair Diskus 250 mcg-50 mcg Inhalation 2 times a day 1 puffs 12h Active RESULTS No Results PROCEDURES No Known [...]
--- OUTSIDE RECORDS SUMMARY | 2017-10-20 18:44 | XMS REPORT ---
Author Author TRAIQ TATE [facility] eClinicalWorks Address Unknown Phone Unavailable Care Team Providers Care Engraver Steel Plate Name Role Phone TARIQ TATE CP Unavailable Allergies, Adverse Reactions, Alerts Substance Reaction Event Type Sulfamethoxazole nausea and vomiting Drug Allergy Problems Problem Type Condition Code Onset Dates Condition Status Assessment Encounter for immunization Z23 Active Assessment Other depression F32.8 Active Assessment Arthralgia of right temporomandibular joint M26.62 Active Problem Other depression F32.8 Active Problem [...] Date End Date Status Dosage Singulair [facility] 95427723452 10 MG Orally Once a day 1 tablet Parafon Forte DSC [facility] [address]-55 500 MG Orally Three times a day PRN. Must last one month February 22, 2015 1 tablet Ibuprofen [facility] [address]-60 800 MG Orally Three times a day April 26, 2015 1 tablet Advair Diskus [facility] [address]-76 250 mcg-50 mcg Inhalation 2 times a day 1 puffs Omeprazole [facility] [address]-17 20 MG Orally 2 times a day 2 capsules Xolair [facility] [address]-38 150 MG Subcutaneous not defined EPINEPHrine [facility] [address]-04 0.3 MG/0.3ML Injection PRN Aug 24, 2015 as directed Benadryl [facility] [address]-24 25 MG Orally every 6 hrs 1 capsule as needed Albuterol ND 0 90 mcg/actuation by inhalation 4 times a day 2 puffs Gabapentin [facility] [address]-09 400 MG Orally Once a day 1 capsule Fluoxetine NDC 0 20 mg Orally Once a day Jun 04, 2016 2 capsule in the morning Spiriva HandiHaler [facility] [address]-05 18 MCG Inhalation Once a day 1 capsule Flonase [facility] 35255533952 50 MCG/ACT Nasally 2 times a day 2 spray in each nostril Procedures Procedure Coding System Code Date FLUARIX QUAD P-FREE 3 AND UP .50 2015 CPT-4 73378 Aug 28, 2016 SINGLE IMMUNIZATION ADMIN CPT-4 75085 Aug 28, 2016 Office Visit, Est Pt., Level 3 CPT-4 83458 Aug 28, 2016 Vital Signs Date/Time: Aug 28, 2016 Cardiac Monitoring Heart Rate 92 bpm Weight 163.4 lbs Height 62 in BMI 29.88 Index Blood Pressure Diastolic 72 mmHg Blood Pressure Systolic 128 mmHg Results No Known Results Immunizations Vaccine Administration Date FLUARIX QUAD P-FREE 3 AND UP .50 2015Aug 28, 2016 Summary Purpose eClinicalWorks Submission
--- OUTSIDE RECORDS SUMMARY | 2017-10-20 18:44 | XMS REPORT ---
Author Author TARIQ TATE Organization eClinicalWorks Address Unknown Phone Unavailable Care Team Providers Care Vb Net Developer Name Role Phone TARIQ TATE CP Unavailable [...] Date End Date Status Dosage Spiriva HandiHaler [facility] [address]-65 18 MCG Inhalation Once a day 1 capsule Results No Known Results Summary Purpose eClinicalWorks Submission
--- OUTSIDE RECORDS SUMMARY | 2017-10-20 18:44 | XMS REPORT ---
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 [address]-01 100 MG Orally every 12 hrs Jun 11, 2016Jun 1 capsule with food Results No Known Results Summary Purpose eClinicalWorks Submission
--- OUTSIDE RECORDS SUMMARY | 2017-10-20 18:44 | XMS REPORT ---
Author Author TARIQ TATE Organization eClinicalWorks Address Unknown Phone Unavailable Care Team Providers Care Assembly Machine Set Up Mechanic Name Role Phone TARIQ TATE CP Unavailable [...] Instructions Start Date End Date Status Dosage Nasonex [facility] [address]-76 50 mcg/actuation Nasally 2 times a day 2 sprays Parafon Forte DSC [facility] [address]-83 500 MG Orally Three times a day PRN. Must last one month February 22, 2015 1 tablet Omeprazole [facility] [address]-51 20 MG Orally 2 times a day 2 capsules Results No Known Results Summary Purpose eClinicalWorks Submission
--- OUTSIDE RECORDS SUMMARY | 2017-10-20 18:45 | XMS REPORT ---
Author Author TARIQ TATE [facility] Address [address] [place] [address] Care Team Providers Care Clinical Fellow Name Role Phone TARIQ TATE Unavailable PROBLEMS Type Condition ICD9-CM Code [id number] Code Onset Dates Condition Status SNOMED Code Problem Enthesopathy of unspecified site 726.90 Active 38081442 Assessment Other depression F32.8 Jul, Active Problem Arthralgia of right temporomandibular joint M26.62 Active 83406439 Problem Other depression F32.8 Active 27640719 Problem COPD (chronic obstructive pulmonary disease) 496 Active 53808831 Problem Unspecified breast screening V76.10 Active 704928424 Problem Osteoarthritis of both knees, unspecified osteoarthritis type M17.0 Active 698244435 Problem Hip bursitis, left M70.72 Active 01547167 ALLERGIES Substance Reaction Event Type Date Status Sulfamethoxazole nausea and vomiting Drug Allergy Jul, Active SOCIAL HISTORY No smoking Hx information available PLAN OF CARE VITAL SIGNS Height 62 in 2016-07-11 Weight 162.8 lbs 2016-07-11 Heart Rate 101 bpm 2016-07-11 Respiratory Rate 16 2016-07-11 BMI 29.77 kg/m2 2016-07-11 Blood pressure systolic 122 mmHg 2016-07-11 Blood pressure diastolic 74 mmHg 2016-07-11 MEDICATIONS Medication Instructions Dosage Frequency Start Date End Date Duration Status Omeprazole 20 MG Orally 2 times a day 2 capsules 12h Active Albuterol 90 mcg/actuation by inhalation 4 times a day 2 puffs 6h Active EPINEPHrine 0.3 MG/0.3ML Injection PRN as directed Aug, Active Singulair 10 MG Orally Once a day 1 tablet 24h Active Benadryl 25 MG Orally every 6 hrs 1 capsule as needed 6h Active Flexeril 10 MG Orally Three times a day 1 tablet 8h Active Advair Diskus 250 mcg-50 mcg Inhalation 2 times a day 1 puffs 12h Active Ibuprofen 800 MG Orally Three times a day 1 tablet 8h Apr, Active Gabapentin 400 MG Orally Once a day 1 capsule 24h Active Xolair 150 MG Active Flonase 50 MCG/ACT Nasally 2 times a day 2 spray in each nostril 12h Aug Active Spiriva HandiHaler 18 MCG Inhalation Once a day 1 capsule 24h Active Parafon Forte DSC 500 MG Orally Three times a day PRN. Must last one month 1 tablet Feb, Active Fluoxetine 20 mg Orally Once a day 2 capsule in the morning 24h Jun, Active RESULTS No Results PROCEDURES Procedure Date Ordered Related Diagnosis Body Site Office Visit, Est Pt., Level 3 Jul 11, 2016 IMMUNIZATIONS No Known Immunizations
--- OUTSIDE RECORDS SUMMARY | 2017-10-20 18:47 | XMS REPORT | Continuity of Care Document ---
Author Author [facility] of [facility] of [facility] Address Unknown Phone Unavailable Allergies Active Description Code Type Severity Reaction Onset Reported/Identified Relationship to Patient Clinical Status Yes sulfa drug Drug Allergy 03/07/2011 Yes Sulfa (Sulfonamide Antibiotics) [id number] Drug Allergy Unknown N/A 2013 Medications There is no data. Problems Date Dx Coded Attending Type Code Diagnosis Diagnosed By 03/07/2011 TARIQ TATE APRN 477.0 ALLERGIC RHINITIS - POLLEN 03/07/2011 TARIQ TATE APRN 493.90 ASTHMA 03/07/2011 TARIQ TATE APRN 530.81 ESOPHAGEAL REFLUX 03/07/2011 477.0 ALLERGIC RHINITIS - POLLEN 03/07/2011 493.90 ASTHMA 03/07/2011 530.81 ESOPHAGEAL REFLUX 03/07/2011 477.0 ALLERGIC RHINITIS - POLLEN 03/07/2011 493.90 ASTHMA 03/07/2011 530.81 ESOPHAGEAL REFLUX 03/07/2011 477.0 ALLERGIC RHINITIS - POLLEN 03/07/2011 493.90 ASTHMA 03/07/2011 530.81 ESOPHAGEAL REFLUX 03/07/2011 477.0 ALLERGIC RHINITIS - POLLEN 03/07/2011 493.90 ASTHMA 03/07/2011 530.81 ESOPHAGEAL REFLUX 03/07/2011 477.0 ALLERGIC RHINITIS - POLLEN 03/07/2011 493.90 ASTHMA 03/07/2011 530.81 ESOPHAGEAL REFLUX 03/07/2011 477.0 ALLERGIC RHINITIS - POLLEN 03/07/2011 493.90 ASTHMA 03/07/2011 530.81 ESOPHAGEAL REFLUX 03/07/2011 477.0 ALLERGIC RHINITIS - POLLEN 03/07/2011 493.90 ASTHMA 03/07/2011 530.81 ESOPHAGEAL REFLUX 03/07/2011 477.0 ALLERGIC RHINITIS - POLLEN 03/07/2011 493.90 ASTHMA 03/07/2011 530.81 ESOPHAGEAL REFLUX 03/07/2011 DI SHUKLA DO 477.0 ALLERGIC RHINITIS - POLLEN 03/07/2011 SHUKLA DO, DI K 493.90 ASTHMA 03/07/2011 SHUKLA DO, DI K 530.81 ESOPHAGEAL REFLUX 03/07/2011 SHUKLA DO, DI K 477.0 ALLERGIC RHINITIS - POLLEN 03/07/2011 SHUKLA DO, DI K 493.90 ASTHMA 03/07/2011 SHUKLA DO, DI K 530.81 ESOPHAGEAL REFLUX 03/07/2011 SHUKLA DO, DI K 477.0 ALLERGIC RHINITIS - POLLEN 03/07/2011 SHUKLA DO, DI K 493.90 ASTHMA 03/07/2011 SHUKLA DO, DI K 530.81 ESOPHAGEAL REFLUX 03/07/2011 SHUKLA DO, DI K 477.0 ALLERGIC RHINITIS - POLLEN 03/07/2011 SHUKLA DO, DI K 493.90 ASTHMA 03/07/2011 SHUKLA DO, DI K 530.81 ESOPHAGEAL REFLUX 03/07/2011 TATE TARIQ WARNER R 477.0 ALLERGIC RHINITIS - POLLEN 03/07/2011 TATE LABORER SHELLFISH PROCESSINGTARIQ Mena R 493.90 ASTHMA 03/07/2011 TATE LABORER SHELLFISH PROCESSINGTARIQ Mena R 530.81 ESOPHAGEAL REFLUX 03/07/2011 TATE LABORER SHELLFISH PROCESSINGTARIQ R 477.0 ALLERGIC RHINITIS - POLLEN 03/07/2011 TATE LABORER SHELLFISH PROCESSING, TARIQ R 493.90 ASTHMA 03/07/2011 TATE LABORER SHELLFISH PROCESSING TARIQ R 530.81 ESOPHAGEAL REFLUX 03/07/2011 SHUKLA DO, DI K 477.0 ALLERGIC RHINITIS - POLLEN 03/07/2011 SHUKLA DO, DI K 493.90 ASTHMA 03/07/2011 SHUKLA DO, DI K 530.81 ESOPHAGEAL REFLUX 03/07/2011 SHUKLA DO, DI K 477.0 ALLERGIC RHINITIS - POLLEN 03/07/2011 SHUKLA DO, DI K 493.90 ASTHMA 03/07/2011 SHUKLA DO, DI K 530.81 ESOPHAGEAL REFLUX 03/07/2011 SHUKLA DO, DI K 477.0 ALLERGIC RHINITIS - POLLEN 03/07/2011 SHUKLA DO, DI K 493.90 ASTHMA 03/07/2011 SHUKLA DO, DI K 530.81 ESOPHAGEAL REFLUX 03/07/2011 SHUKLA DO, DI K 477.0 ALLERGIC RHINITIS - POLLEN 03/07/2011 SHUKLA DO, DI K 493.90 ASTHMA 03/07/2011 SHUKLA DO, DI K 530.81 ESOPHAGEAL REFLUX 03/07/2011 HELLWIG LABORER SHELLFISH PROCESSING, THEO E 477.0 ALLERGIC RHINITIS - POLLEN 03/07/2011 HELLWIG LABORER SHELLFISH PROCESSING, THEO E 493.90 ASTHMA 03/07/2011 SAMEERALWIG LABORER SHELLFISH PROCESSING, THEO E 530.81 ESOPHAGEAL REFLUX 03/07/2011 TATE LABORER SHELLFISH PROCESSINGTARIQ 477.0 ALLERGIC RHINITIS - POLLEN 03/07/2011 TATE LABORER SHELLFISH PROCESSING, TARIQ Bhardwaj 493.90 ASTHMA 03/07/2011 TATE LABORER SHELLFISH PROCESSING, TARIQ R 530.81 ESOPHAGEAL REFLUX 03/07/2011 SHUKLA DO, DI K 477.0 ALLERGIC RHINITIS - POLLEN 03/07/2011 SHUKLA DO, DI K 493.90 ASTHMA 03/07/2011 SHUKLA DO, DI K 530.81 ESOPHAGEAL REFLUX 03/07/2011 SHUKLA DO, DI K 477.0 ALLERGIC RHINITIS - POLLEN 03/07/2011 SHUKLA DO, DI K 493.90 ASTHMA 03/07/2011 SHUKLA DO, DI K 530.81 ESOPHAGEAL REFLUX 03/21/2011 TATE LABORER SHELLFISH PROCESSINGTARIQ Mena 372.30 CONJUNCTIVITIS UNSPECIFIED 03/21/2011 372.30 CONJUNCTIVITIS UNSPECIFIED 03/21/2011 372.30 CONJUNCTIVITIS UNSPECIFIED 03/21/2011 372.30 CONJUNCTIVITIS UNSPECIFIED 03/21/2011 372.30 CONJUNCTIVITIS UNSPECIFIED 03/21/2011 372.30 CONJUNCTIVITIS UNSPECIFIED 03/21/2011 372.30 CONJUNCTIVITIS UNSPECIFIED 03/21/2011 372.30 CONJUNCTIVITIS UNSPECIFIED 03/21/2011 372.30 CONJUNCTIVITIS UNSPECIFIED 03/21/2011 SHUKLA DO, DI K 372.30 CONJUNCTIVITIS UNSPECIFIED 03/21/2011 SHUKLA DO, DI K 372.30 CONJUNCTIVITIS UNSPECIFIED 03/21/2011 SHUKLA DO, DI K 372.30 CONJUNCTIVITIS UNSPECIFIED 03/21/2011 SHUKLA DO, DI K 372.30 CONJUNCTIVITIS UNSPECIFIED 03/21/2011 TATE TARIQ WARNER 372.30 CONJUNCTIVITIS UNSPECIFIED 03/21/2011 TATE LABORER SHELLFISH PROCESSINGTARIQ Mena 372.30 CONJUNCTIVITIS UNSPECIFIED 03/21/2011 SHUKLA DO, DI K 372.30 CONJUNCTIVITIS UNSPECIFIED 03/21/2011 SHUKLA DO, DI K 372.30 CONJUNCTIVITIS UNSPECIFIED 03/21/2011 SHUKLA DO, DI K 372.30 CONJUNCTIVITIS UNSPECIFIED 03/21/2011 SHUKLA DO, DI K 372.30 CONJUNCTIVITIS UNSPECIFIED 03/21/2011 THEO GRIER APRN 372.30 CONJUNCTIVITIS UNSPECIFIED 03/21/2011 TARIQ TATE APRN 372.30 CONJUNCTIVITIS UNSPECIFIED 03/21/2011 DI SHUKLA DO K 372.30 CONJUNCTIVITIS UNSPECIFIED 03/21/2011 SHUKLA , DI K 372.30 CONJUNCTIVITIS UNSPECIFIED 07/11/2011 TARIQ TATE APRN 536.8 DYSPEPSIA AND OTHER SPECIFIED DISORDERS OF FUNCTION OF STOMACH 07/11/2011 TARIQ TATE APRN V76.12 OTHER SCREENING MAMMOGRAM 07/11/2011 TARIQ TATE APRN V77.91 SCREENING FOR LIPOID DISORDERS 07/11/2011 TARIQ TATE APRN V81.2 SCREENING FOR OTHER AND UNSPECIFIED CARDIOVASCULAR CONDITIONS 07/11/2011 536.8 DYSPEPSIA AND OTHER SPECIFIED DISORDERS OF FUNCTION OF STOMACH 07/11/2011 V76.12 OTHER SCREENING MAMMOGRAM 07/11/2011 V77.91 SCREENING FOR LIPOID DISORDERS 07/11/2011 V81.2 SCREENING FOR OTHER AND UNSPECIFIED CARDIOVASCULAR CONDITIONS 07/11/2011 536.8 DYSPEPSIA AND OTHER SPECIFIED DISORDERS OF FUNCTION OF STOMACH 07/11/2011 V76.12 OTHER SCREENING MAMMOGRAM 07/11/2011 V77.91 SCREENING FOR LIPOID DISORDERS 07/11/2011 V81.2 SCREENING FOR OTHER AND UNSPECIFIED CARDIOVASCULAR CONDITIONS 07/11/2011 536.8 DYSPEPSIA AND OTHER SPECIFIED DISORDERS OF FUNCTION OF STOMACH 07/11/2011 V76.12 OTHER SCREENING MAMMOGRAM 07/11/2011 V77.91 SCREENING FOR LIPOID DISORDERS 07/11/2011 V81.2 SCREENING FOR OTHER AND UNSPECIFIED CARDIOVASCULAR CONDITIONS 07/11/2011 536.8 DYSPEPSIA AND OTHER SPECIFIED DISORDERS OF FUNCTION OF STOMACH 07/11/2011 V76.12 OTHER SCREENING MAMMOGRAM 07/11/2011 V77.91 SCREENING FOR LIPOID DISORDERS 07/11/2011 V81.2 SCREENING FOR OTHER AND UNSPECIFIED CARDIOVASCULAR CONDITIONS 07/11/2011 536.8 DYSPEPSIA AND OTHER SPECIFIED DISORDERS OF FUNCTION OF STOMACH 07/11/2011 V76.12 OTHER SCREENING MAMMOGRAM 07/11/2011 V77.91 SCREENING FOR LIPOID DISORDERS 07/11/2011 V81.2 SCREENING FOR OTHER AND UNSPECIFIED CARDIOVASCULAR CONDITIONS 07/11/2011 536.8 DYSPEPSIA AND OTHER SPECIFIED DISORDERS OF FUNCTION OF STOMACH 07/11/2011 V76.12 OTHER SCREENING MAMMOGRAM 07/11/2011 V77.91 SCREENING FOR LIPOID DISORDERS 07/11/2011 V81.2 SCREENING FOR OTHER AND UNSPECIFIED CARDIOVASCULAR CONDITIONS 07/11/2011 536.8 DYSPEPSIA AND OTHER SPECIFIED DISORDERS OF FUNCTION OF STOMACH 07/11/2011 V76.12 OTHER SCREENING MAMMOGRAM 07/11/2011 V77.91 SCREENING FOR LIPOID DISORDERS 07/11/2011 V81.2 SCREENING FOR OTHER AND UNSPECIFIED CARDIOVASCULAR CONDITIONS 07/11/2011 536.8 DYSPEPSIA AND OTHER SPECIFIED DISORDERS OF FUNCTION OF STOMACH 07/11/2011 V76.12 OTHER SCREENING MAMMOGRAM 07/11/2011 V77.91 SCREENING FOR LIPOID DISORDERS 07/11/2011 V81.2 SCREENING FOR OTHER AND UNSPECIFIED CARDIOVASCULAR CONDITIONS 07/11/2011 SHUKLA DO, DI K 536.8 DYSPEPSIA AND OTHER SPECIFIED DISORDERS OF FUNCTION OF STOMACH 07/11/2011 SHUKLA DO, DI K V76.12 OTHER SCREENING MAMMOGRAM 07/11/2011 SHUKLA DO, DI K V77.91 SCREENING FOR LIPOID DISORDERS 07/11/2011 SHUKLA DO, DI K V81.2 SCREENING FOR OTHER AND UNSPECIFIED CARDIOVASCULAR CONDITIONS 07/11/2011 SHUKLA DO, DI K 536.8 DYSPEPSIA AND OTHER SPECIFIED DISORDERS OF FUNCTION OF STOMACH 07/11/2011 SHUKLA DO, DI K V76.12 OTHER SCREENING MAMMOGRAM 07/11/2011 SHUKLA DO, DI K V77.91 SCREENING FOR LIPOID DISORDERS 07/11/2011 SHUKLA DO, DI K V81.2 SCREENING FOR OTHER AND UNSPECIFIED CARDIOVASCULAR CONDITIONS 07/11/2011 SHUKLA DO, DI K 536.8 DYSPEPSIA AND OTHER SPECIFIED DISORDERS OF FUNCTION OF STOMACH 07/11/2011 SHUKLA DO, DI K V76.12 OTHER SCREENING MAMMOGRAM 07/11/2011 SHUKLA DO, DI K V77.91 SCREENING FOR LIPOID DISORDERS 07/11/2011 SHUKLA DO, DI K V81.2 SCREENING FOR OTHER AND UNSPECIFIED CARDIOVASCULAR CONDITIONS 07/11/2011 SHUKLA DO, DI K 536.8 DYSPEPSIA AND OTHER SPECIFIED DISORDERS OF FUNCTION OF STOMACH 07/11/2011 SHUKLA DO, DI K V76.12 OTHER SCREENING MAMMOGRAM 07/11/2011 SHUKLA DO, DI K V77.91 SCREENING FOR LIPOID DISORDERS 07/11/2011 SHUKLA DO, DI K V81.2 SCREENING FOR OTHER AND UNSPECIFIED CARDIOVASCULAR CONDITIONS 07/11/2011 TATE LABORER SHELLFISH PROCESSINGTARIQ R 536.8 DYSPEPSIA AND OTHER SPECIFIED DISORDERS OF FUNCTION OF STOMACH 07/11/2011 TATE LABORER SHELLFISH PROCESSINGTARIQ R V76.12 OTHER SCREENING MAMMOGRAM 07/11/2011 TATE LABORER SHELLFISH PROCESSINGTARIQ R V77.91 SCREENING FOR LIPOID DISORDERS 07/11/2011 TATE LABORER SHELLFISH PROCESSING TARIQ R V81.2 SCREENING FOR OTHER AND UNSPECIFIED CARDIOVASCULAR CONDITIONS 07/11/2011 TATE LABORER SHELLFISH PROCESSINGTARIQ R 536.8 DYSPEPSIA AND OTHER SPECIFIED DISORDERS OF FUNCTION OF STOMACH 07/11/2011 TATE LABORER SHELLFISH PROCESSINGTARIQ R V76.12 OTHER SCREENING MAMMOGRAM 07/11/2011 TATE LABORER SHELLFISH PROCESSINGTARIQ R V77.91 SCREENING FOR LIPOID DISORDERS 07/11/2011 TATE LABORER SHELLFISH PROCESSINGTARIQ R V81.2 SCREENING FOR OTHER AND UNSPECIFIED CARDIOVASCULAR CONDITIONS 07/11/2011 SHUKLA DO, DI K 536.8 DYSPEPSIA AND OTHER SPECIFIED DISORDERS OF FUNCTION OF STOMACH 07/11/2011 SHUKLA DO, DI K V76.12 OTHER SCREENING MAMMOGRAM 07/11/2011 SHUKLA DO, DI K V77.91 SCREENING FOR LIPOID DISORDERS 07/11/2011 SHUKLA DO, DI K V81.2 SCREENING FOR OTHER AND UNSPECIFIED CARDIOVASCULAR CONDITIONS 07/11/2011 SHUKLA DO, DI K 536.8 DYSPEPSIA AND OTHER SPECIFIED DISORDERS OF FUNCTION OF STOMACH 07/11/2011 SHUKLA DO, DI K V76.12 OTHER SCREENING MAMMOGRAM 07/11/2011 SHUKLA DO, DI K V77.91 SCREENING FOR LIPOID DISORDERS 07/11/2011 SHUKLA DO, DI K V81.2 SCREENING FOR OTHER AND UNSPECIFIED CARDIOVASCULAR CONDITIONS 07/11/2011 SHUKLA DO, DI K 536.8 DYSPEPSIA AND OTHER SPECIFIED DISORDERS OF FUNCTION OF STOMACH 07/11/2011 SHUKLA DO, DI K V76.12 OTHER SCREENING MAMMOGRAM 07/11/2011 SHUKLA DO, DI K V77.91 SCREENING FOR LIPOID DISORDERS 07/11/2011 SHUKLA DO, DI K V81.2 SCREENING FOR OTHER AND UNSPECIFIED CARDIOVASCULAR CONDITIONS 07/11/2011 SHUKLA DO, DI K 536.8 DYSPEPSIA AND OTHER SPECIFIED DISORDERS OF FUNCTION OF STOMACH 07/11/2011 SHUKLA DO, DI K V76.12 OTHER SCREENING MAMMOGRAM 07/11/2011 SHUKLA DO, DI K V77.91 SCREENING FOR LIPOID DISORDERS 07/11/2011 SHUKLA DO, DI K V81.2 SCREENING FOR OTHER AND UNSPECIFIED CARDIOVASCULAR CONDITIONS 07/11/2011 HELLTHEO YA APRN E 536.8 DYSPEPSIA AND OTHER SPECIFIED DISORDERS OF FUNCTION OF STOMACH 07/11/2011 SAMEERALWIG THEO WARNER E V76.12 OTHER SCREENING MAMMOGRAM 07/11/2011 HELLWIG LABORER SHELLFISH PROCESSINGCAROL MneaE E V77.91 SCREENING FOR LIPOID DISORDERS 07/11/2011 HELLWIG THEO WARNER E V81.2 SCREENING FOR OTHER AND UNSPECIFIED CARDIOVASCULAR CONDITIONS 07/11/2011 TARIQ TATE APRN 536.8 DYSPEPSIA AND OTHER SPECIFIED DISORDERS OF FUNCTION OF STOMACH 07/11/2011 TARIQ TATE APRN V76.12 OTHER SCREENING MAMMOGRAM 07/11/2011 TARIQ TATE APRN V77.91 SCREENING FOR LIPOID DISORDERS 07/11/2011 TARIQ TATE APRN V81.2 SCREENING FOR OTHER AND UNSPECIFIED CARDIOVASCULAR CONDITIONS 07/11/2011 SHUKLA DO DI K 536.8 DYSPEPSIA AND OTHER SPECIFIED DISORDERS OF FUNCTION OF STOMACH 07/11/2011 SHUKLA DO DI K V76.12 OTHER SCREENING MAMMOGRAM 07/11/2011 SHUKLA DO DI K V77.91 SCREENING FOR LIPOID DISORDERS 07/11/2011 SHUKLA DO, DI K V81.2 SCREENING FOR OTHER AND UNSPECIFIED CARDIOVASCULAR CONDITIONS 07/11/2011 SHUKLA DO, DI K 536.8 DYSPEPSIA AND OTHER SPECIFIED DISORDERS OF FUNCTION OF STOMACH 07/11/2011 SHUKLA DO, DI K V76.12 OTHER SCREENING MAMMOGRAM 07/11/2011 SHUKLA DO, DI K V77.91 SCREENING FOR LIPOID DISORDERS 07/11/2011 SHUKLA DO, DI K V81.2 SCREENING FOR OTHER AND UNSPECIFIED CARDIOVASCULAR CONDITIONS 07/12/2011 TARIQ TATE APRN 627.3 POSTMENOPAUSAL ATROPHIC VAGINITIS 07/12/2011 TARIQ TATE APRN V72.31 SURVEYING TEACHER EXAM, ROUTINE 07/12/2011 627.3 POSTMENOPAUSAL ATROPHIC VAGINITIS 07/12/2011 V72.31 SURVEYING TEACHER EXAM, ROUTINE 07/12/2011 627.3 POSTMENOPAUSAL ATROPHIC VAGINITIS 07/12/2011 V72.31 SURVEYING TEACHER EXAM, ROUTINE 07/12/2011 627.3 POSTMENOPAUSAL ATROPHIC VAGINITIS 07/12/2011 V72.31 SURVEYING TEACHER EXAM, ROUTINE 07/12/2011 627.3 POSTMENOPAUSAL ATROPHIC VAGINITIS 07/12/2011 V72.31 SURVEYING TEACHER EXAM, ROUTINE 07/12/2011 627.3 POSTMENOPAUSAL ATROPHIC VAGINITIS 07/12/2011 V72.31 SURVEYING TEACHER EXAM, ROUTINE 07/12/2011 627.3 POSTMENOPAUSAL ATROPHIC VAGINITIS 07/12/2011 V72.31 SURVEYING TEACHER EXAM, ROUTINE 07/12/2011 627.3 POSTMENOPAUSAL ATROPHIC VAGINITIS 07/12/2011 V72.31 SURVEYING TEACHER EXAM, ROUTINE 07/12/2011 627.3 POSTMENOPAUSAL ATROPHIC VAGINITIS 07/12/2011 V72.31 SURVEYING TEACHER EXAM, ROUTINE 07/12/2011 DI SHUKLA DO 627.3 POSTMENOPAUSAL ATROPHIC VAGINITIS 07/12/2011 SHUKLA HOLLY LANGLEYA Nick V72.31 SURVEYING TEACHER EXAM, ROUTINE 07/12/2011 SHUKLA HOLLY LANGLEYA K 627.3 POSTMENOPAUSAL ATROPHIC VAGINITIS 07/12/2011 HOLLY SHUKLA DOA K V72.31 SURVEYING TEACHER EXAM, ROUTINE 07/12/2011 SHUKLA DOHOLLYA K 627.3 POSTMENOPAUSAL ATROPHIC VAGINITIS 07/12/2011 SHUKLA HOLLY LANGLEYA K V72.31 SURVEYING TEACHER EXAM, ROUTINE 07/12/2011 HOLLY SHUKLA DOA K 627.3 POSTMENOPAUSAL ATROPHIC VAGINITIS 07/12/2011 SHUKLA DO DI K V72.31 SURVEYING TEACHER EXAM, ROUTINE 07/12/2011 TATE TARIQ WARNER 627.3 POSTMENOPAUSAL ATROPHIC VAGINITIS 07/12/2011 TATE TARIQ WARNER V72.31 SURVEYING TEACHER EXAM, ROUTINE 07/12/2011 TATE TARIQ WARNER 627.3 POSTMENOPAUSAL ATROPHIC VAGINITIS 07/12/2011 TATE TARIQ WARNER V72.31 SURVEYING TEACHER EXAM, ROUTINE 07/12/2011 DI SHUKLA DO 627.3 POSTMENOPAUSAL ATROPHIC VAGINITIS 07/12/2011 HOLLY SHUKLA DOA K V72.31 SURVEYING TEACHER EXAM, ROUTINE 07/12/2011 SHUKLA DO, DI K 627.3 POSTMENOPAUSAL ATROPHIC VAGINITIS 07/12/2011 SHUKLA DO, DI K V72.31 SURVEYING TEACHER EXAM, ROUTINE 07/12/2011 SHUKLA DO, DI K 627.3 POSTMENOPAUSAL ATROPHIC VAGINITIS 07/12/2011 SHUKLA DO, DI K V72.31 SURVEYING TEACHER EXAM, ROUTINE 07/12/2011 SHUKLA DO, DI K 627.3 POSTMENOPAUSAL ATROPHIC VAGINITIS 07/12/2011 SHUKLA DO, DI K V72.31 SURVEYING TEACHER EXAM, ROUTINE 07/12/2011 SAMEERALTHEO YA APRN 627.3 POSTMENOPAUSAL ATROPHIC VAGINITIS 07/12/2011 THEO GRIER APRN V72.31 SURVEYING TEACHER EXAM, ROUTINE 07/12/2011 TARIQ TATE APRN 627.3 POSTMENOPAUSAL ATROPHIC VAGINITIS 07/12/2011 TARIQ TATE APRN V72.31 SURVEYING TEACHER EXAM, ROUTINE 07/12/2011 SHUKLA DO DI K 627.3 POSTMENOPAUSAL ATROPHIC VAGINITIS 07/12/2011 SHUKLA DO, DI K V72.31 SURVEYING TEACHER EXAM, ROUTINE 07/12/2011 SHUKLA DO, DI K 627.3 POSTMENOPAUSAL ATROPHIC VAGINITIS 07/12/2011 SHUKLA DO, DI K V72.31 SURVEYING TEACHER EXAM, ROUTINE 09/17/2011 TARIQ TATE APRN 354.0 CARPAL TUNNEL SYNDROME 09/17/2011 354.0 CARPAL TUNNEL SYNDROME 09/17/2011 354.0 CARPAL TUNNEL SYNDROME 09/17/2011 354.0 CARPAL TUNNEL SYNDROME 09/17/2011 354.0 CARPAL TUNNEL SYNDROME 09/17/2011 354.0 CARPAL TUNNEL SYNDROME 09/17/2011 354.0 CARPAL TUNNEL SYNDROME 09/17/2011 354.0 CARPAL TUNNEL SYNDROME 09/17/2011 354.0 CARPAL TUNNEL SYNDROME 09/17/2011 SHUKLA DO DI K 354.0 CARPAL TUNNEL SYNDROME 09/17/2011 SHUKLA DO DI K 354.0 CARPAL TUNNEL SYNDROME 09/17/2011 SHUKLA DO, DI K 354.0 CARPAL TUNNEL SYNDROME 09/17/2011 SHUKLA DO DI K 354.0 CARPAL TUNNEL SYNDROME 09/17/2011 TARIQ TATE APRN 354.0 CARPAL TUNNEL SYNDROME 09/17/2011 TARIQ TATE APRN 354.0 CARPAL TUNNEL SYNDROME 09/17/2011 SHUKLA DO, DI K 354.0 CARPAL TUNNEL SYNDROME 09/17/2011 SHUKLA DO, DI K 354.0 CARPAL TUNNEL SYNDROME 09/17/2011 SHUKLA DO, DI K 354.0 CARPAL TUNNEL SYNDROME 09/17/2011 SHUKLA DO, DI K 354.0 CARPAL TUNNEL SYNDROME 09/17/2011 THEO GRIER APRN 354.0 CARPAL TUNNEL SYNDROME 09/17/2011 TARIQ TATE APRN 354.0 CARPAL TUNNEL SYNDROME 09/17/2011 SHUKLA DO, DI K 354.0 CARPAL TUNNEL SYNDROME 09/17/2011 SHUKLA DO, DI K 354.0 CARPAL TUNNEL SYNDROME 06/23/2012 TARIQ TATE APRN 726.90 TENDONITIS 06/23/2012 TARIQ TATE APRN 729.1 MYALGIA AND MYOSITIS, UNSPECIFIED 06/23/2012 726.90 TENDONITIS 06/23/2012 729.1 MYALGIA AND MYOSITIS, UNSPECIFIED 06/23/2012 726.90 TENDONITIS 06/23/2012 729.1 MYALGIA AND MYOSITIS, UNSPECIFIED 06/23/2012 726.90 TENDONITIS 06/23/2012 729.1 MYALGIA AND MYOSITIS, UNSPECIFIED 06/23/2012 726.90 TENDONITIS 06/23/2012 729.1 MYALGIA AND MYOSITIS, UNSPECIFIED 06/23/2012 726.90 TENDONITIS 06/23/2012 729.1 MYALGIA AND MYOSITIS, UNSPECIFIED 06/23/2012 726.90 TENDONITIS 06/23/2012 729.1 MYALGIA AND MYOSITIS, UNSPECIFIED 06/23/2012 726.90 TENDONITIS 06/23/2012 729.1 MYALGIA AND MYOSITIS, UNSPECIFIED 06/23/2012 726.90 TENDONITIS 06/23/2012 729.1 MYALGIA AND MYOSITIS, UNSPECIFIED 06/23/2012 SHUKLA DI LANGLEY 726.90 TENDONITIS 06/23/2012 SHUKLA HOLLY LANGLEYA K 729.1 MYALGIA AND MYOSITIS, UNSPECIFIED 06/23/2012 VAZQUEZ LANGLEY DI K 726.90 TENDONITIS 06/23/2012 SHUKLA DO DI K 729.1 MYALGIA AND MYOSITIS, UNSPECIFIED 06/23/2012 SHUKLA DO, DI K 726.90 TENDONITIS 06/23/2012 SHUKLA DO, DI K 729.1 MYALGIA AND MYOSITIS, UNSPECIFIED 06/23/2012 SHUKLA DO DI K 726.90 TENDONITIS 06/23/2012 SHUKLA DO DI K 729.1 MYALGIA AND MYOSITIS, UNSPECIFIED 06/23/2012 TATE TARIQ WARNER 726.90 TENDONITIS 06/23/2012 TATE LABORER SHELLFISH PROCESSINGTARIQ Mena R 729.1 MYALGIA AND MYOSITIS, UNSPECIFIED 06/23/2012 TATE TARIQ WARNER 726.90 TENDONITIS 06/23/2012 TATE LABORER SHELLFISH PROCESSINGTARIQ Mena 729.1 MYALGIA AND MYOSITIS, UNSPECIFIED 06/23/2012 SHUKLA DOHOLLYA K 726.90 TENDONITIS 06/23/2012 SHUKLA DOHOLLYA K 729.1 MYALGIA AND MYOSITIS, UNSPECIFIED 06/23/2012 SHUKLA DO DI K 726.90 TENDONITIS 06/23/2012 SHUKLA DOHOLLYA K 729.1 MYALGIA AND MYOSITIS, UNSPECIFIED 06/23/2012 SHUKLA DO DI K 726.90 TENDONITIS 06/23/2012 SHUKLA DOHOLLYA K 729.1 MYALGIA AND MYOSITIS, UNSPECIFIED 06/23/2012 SHUKLA DOHOLLYA K 726.90 TENDONITIS 06/23/2012 SHUKLA DOHOLLYA K 729.1 MYALGIA AND MYOSITIS, UNSPECIFIED 06/23/2012 SAMEERALTHEO YA APRN E 726.90 TENDONITIS 06/23/2012 SAMEERALTHEO YA APRN E 729.1 MYALGIA AND MYOSITIS, UNSPECIFIED 06/23/2012 TATE TARIQ WARNER R 726.90 TENDONITIS 06/23/2012 TATE TARIQ WARNER R 729.1 MYALGIA AND MYOSITIS, UNSPECIFIED 06/23/2012 SHUKLA DOHOLLYA K 726.90 TENDONITIS 06/23/2012 SHUKLA DO, DI K 729.1 MYALGIA AND MYOSITIS, UNSPECIFIED 06/23/2012 SHUKLA DO, DI K 726.90 TENDONITIS 06/23/2012 SHUKLA DO, DI K 729.1 MYALGIA AND MYOSITIS, UNSPECIFIED 08/11/2012 TARIQ TATE APRN V04.81 FLU DX (3 YRS AND ABOVE, IM) 08/11/2012 V04.81 FLU DX (3 YRS AND ABOVE, IM) 08/11/2012 V04.81 FLU DX (3 YRS AND ABOVE, IM) 08/11/2012 V04.81 FLU DX (3 YRS AND ABOVE, IM) 08/11/2012 V04.81 FLU DX (3 YRS AND ABOVE, IM) 08/11/2012 V04.81 FLU DX (3 YRS AND ABOVE, IM) 08/11/2012 V04.81 FLU DX (3 YRS AND ABOVE, IM) 08/11/2012 V04.81 FLU DX (3 YRS AND ABOVE, IM) 08/11/2012 V04.81 FLU DX (3 YRS AND ABOVE, IM) 08/11/2012 SHUKLA DO, DI K V04.81 FLU DX (3 YRS AND ABOVE, IM) 08/11/2012 SHUKLA DO, DI K V04.81 FLU DX (3 YRS AND ABOVE, IM) 08/11/2012 SHUKLA DO, DI K V04.81 FLU DX (3 YRS AND ABOVE, IM) 08/11/2012 SHUKLA DO, DI K V04.81 FLU DX (3 YRS AND ABOVE, IM) 08/11/2012 TARIQ TATE APRN V04.81 FLU DX (3 YRS AND ABOVE, IM) 08/11/2012 TARIQ TATE APRN V04.81 FLU DX (3 YRS AND ABOVE, IM) 08/11/2012 SHUKLA DO, DI K V04.81 FLU DX (3 YRS AND ABOVE, IM) 08/11/2012 SHUKLA DO, DI K V04.81 FLU DX (3 YRS AND ABOVE, IM) 08/11/2012 SHUKLA DO, DI K V04.81 FLU DX (3 YRS AND ABOVE, IM) 08/11/2012 SHUKLA DO, DI K V04.81 FLU DX (3 YRS AND ABOVE, IM) 08/11/2012 THEO GRIER APRN V04.81 FLU DX (3 YRS AND ABOVE, IM) 08/11/2012 TATE LABORER SHELLFISH PROCESSINGTARIQ Mena V04.81 FLU DX (3 YRS AND ABOVE, IM) 08/11/2012 SHUKLA DO, DI K V04.81 FLU DX (3 YRS AND ABOVE, IM) 08/11/2012 SHUKLA DO, DI K V04.81 FLU DX (3 YRS AND ABOVE, IM) 08/13/2012 TATE LABORER SHELLFISH PROCESSINGTARIQ Mena V76.10 BREAST SCREENING UNSPECIFIED 08/13/2012 V76.10 BREAST SCREENING UNSPECIFIED 08/13/2012 V76.10 BREAST SCREENING UNSPECIFIED 08/13/2012 V76.10 BREAST SCREENING UNSPECIFIED 08/13/2012 V76.10 BREAST SCREENING UNSPECIFIED 08/13/2012 V76.10 BREAST SCREENING UNSPECIFIED 08/13/2012 V76.10 BREAST SCREENING UNSPECIFIED 08/13/2012 V76.10 BREAST SCREENING UNSPECIFIED 08/13/2012 V76.10 BREAST SCREENING UNSPECIFIED 08/13/2012 SHUKLA DO, DI K V76.10 BREAST SCREENING UNSPECIFIED 08/13/2012 SHUKLA DO, DI K V76.10 BREAST SCREENING UNSPECIFIED 08/13/2012 SHUKLA DO, DI K V76.10 BREAST SCREENING UNSPECIFIED 08/13/2012 SHUKLA DO, DI K V76.10 BREAST SCREENING UNSPECIFIED 08/13/2012 TATE TARIQ WARNER V76.10 BREAST SCREENING UNSPECIFIED 08/13/2012 TATE TARIQ WARNER V76.10 BREAST SCREENING UNSPECIFIED 08/13/2012 SHUKLA DO, DI K V76.10 BREAST SCREENING UNSPECIFIED 08/13/2012 SHUKLA DO, DI K V76.10 BREAST SCREENING UNSPECIFIED 08/13/2012 SHUKLA DO, DI K V76.10 BREAST SCREENING UNSPECIFIED 08/13/2012 SHUKLA DO, DI K V76.10 BREAST SCREENING UNSPECIFIED 08/13/2012 THEO GRIER APRN V76.10 BREAST SCREENING UNSPECIFIED 08/13/2012 TATE TARIQ WARNER V76.10 BREAST SCREENING UNSPECIFIED 08/13/2012 SHUKLA DO, DI K V76.10 BREAST SCREENING UNSPECIFIED 08/13/2012 SHUKLA DO, DI K V76.10 BREAST SCREENING UNSPECIFIED 09/08/2012 TATE TARIQ WARNER R 461.9 SINUSITIS ACUTE 09/08/2012 TATE LABORER SHELLFISH PROCESSING, TARIQ R 477.9 RHINITIS 09/08/2012 461.9 SINUSITIS ACUTE 09/08/2012 477.9 RHINITIS 09/08/2012 461.9 SINUSITIS ACUTE 09/08/2012 477.9 RHINITIS 09/08/2012 461.9 SINUSITIS ACUTE 09/08/2012 477.9 RHINITIS 09/08/2012 461.9 SINUSITIS ACUTE 09/08/2012 477.9 RHINITIS 09/08/2012 461.9 SINUSITIS ACUTE 09/08/2012 477.9 RHINITIS 09/08/2012 461.9 SINUSITIS ACUTE 09/08/2012 477.9 RHINITIS 09/08/2012 461.9 SINUSITIS ACUTE 09/08/2012 477.9 RHINITIS 09/08/2012 461.9 SINUSITIS ACUTE 09/08/2012 477.9 RHINITIS 09/08/2012 SHUKLA DO, DI K 461.9 SINUSITIS ACUTE 09/08/2012 SHUKLA DO, DI K 477.9 RHINITIS 09/08/2012 SHUKLA DO, DI K 461.9 SINUSITIS ACUTE 09/08/2012 SHUKLA DO, DI K 477.9 RHINITIS 09/08/2012 SHUKLA DO, DI K 461.9 SINUSITIS ACUTE 09/08/2012 SHUKLA DO, DI K 477.9 RHINITIS 09/08/2012 SHUKLA DO, DI K 461.9 SINUSITIS ACUTE 09/08/2012 SHUKLA DO, DI K 477.9 RHINITIS 09/08/2012 TATETARIQ CHRISTINE APRN R 461.9 SINUSITIS ACUTE 09/08/2012 TATE TARIQ WARNER R 477.9 RHINITIS 09/08/2012 TATE TARIQ WARNER R 461.9 SINUSITIS ACUTE 09/08/2012 TATE LABORER SHELLFISH PROCESSING, TARIQ R 477.9 RHINITIS 09/08/2012 SHUKLA DO, DI K 461.9 SINUSITIS ACUTE 09/08/2012 SHUKLA DO, DI K 477.9 RHINITIS 09/08/2012 SHUKLA DO, DI K 461.9 SINUSITIS ACUTE 09/08/2012 SHUKLA DO, DI K 477.9 RHINITIS 09/08/2012 SHUKLA DO, DI K 461.9 SINUSITIS ACUTE 09/08/2012 SHUKLA DO, DI K 477.9 RHINITIS 09/08/2012 SHUKLA DO, DI K 461.9 SINUSITIS ACUTE 09/08/2012 SHUKLA DO, DI K 477.9 RHINITIS 09/08/2012 THEO GRIER APRN E 461.9 SINUSITIS ACUTE 09/08/2012 THEO GRIER APRN E 477.9 RHINITIS 09/08/2012 TATE LABORER SHELLFISH PROCESSINGTARIQ Mena R 461.9 SINUSITIS ACUTE 09/08/2012 TATE LABORER SHELLFISH PROCESSING, TARIQ R 477.9 RHINITIS 09/08/2012 SHUKLA DO, DI K 461.9 SINUSITIS ACUTE 09/08/2012 SHUKLA DO, DI K 477.9 RHINITIS 09/08/2012 SHUKLA DO, DI K 461.9 SINUSITIS ACUTE 09/08/2012 SHUKLA DO, DI K 477.9 RHINITIS 12/29/2012 473.9 SINUSITIS ( CHRONIC) 12/29/2012 473.9 SINUSITIS ( CHRONIC) 12/29/2012 473.9 SINUSITIS ( CHRONIC) 12/29/2012 473.9 SINUSITIS ( CHRONIC) 12/29/2012 473.9 SINUSITIS ( CHRONIC) 12/29/2012 473.9 SINUSITIS ( CHRONIC) 12/29/2012 473.9 SINUSITIS ( CHRONIC) 12/29/2012 SHUKLA DO, DI K 473.9 SINUSITIS (CHRONIC) 12/29/2012 SHUKLA DO, DI K 473.9 SINUSITIS (CHRONIC) 12/29/2012 SHUKLA DO, DI K 473.9 SINUSITIS (CHRONIC) 12/29/2012 SHUKLA DO, DI K 473.9 SINUSITIS (CHRONIC) 12/29/2012 TATETARIQ CHRISTINE APRN R 473.9 SINUSITIS (CHRONIC) 12/29/2012 TATE LABORER SHELLFISH PROCESSINGTARIQ Mena R 473.9 SINUSITIS (CHRONIC) 12/29/2012 SHUKLA DO, DI K 473.9 SINUSITIS (CHRONIC) 12/29/2012 SHUKLA DO, DI K 473.9 SINUSITIS (CHRONIC) 12/29/2012 SHUKLA DO, DI K 473.9 SINUSITIS (CHRONIC) 12/29/2012 SHUKLA DO, DI K 473.9 SINUSITIS (CHRONIC) 12/29/2012 THEO GRIER APRN 473.9 SINUSITIS (CHRONIC) 12/29/2012 SHUKLA DO, DI K 473.9 SINUSITIS (CHRONIC) 12/29/2012 SHUKLA DO, DI K 473.9 SINUSITIS (CHRONIC) 01/26/2013 716.90 ARTHRITIS/ ARTHROPATHY, UNSPECIFIED 01/26/2013 716.90 ARTHRITIS/ ARTHROPATHY, UNSPECIFIED 01/26/2013 716.90 ARTHRITIS/ ARTHROPATHY, UNSPECIFIED 01/26/2013 716.90 ARTHRITIS/ ARTHROPATHY, UNSPECIFIED 01/26/2013 716.90 ARTHRITIS/ ARTHROPATHY, UNSPECIFIED 01/26/2013 716.90 ARTHRITIS/ ARTHROPATHY, UNSPECIFIED 01/26/2013 SHUKLA DO, DI K 716.90 ARTHRITIS/ ARTHROPATHY, UNSPECIFIED 01/26/2013 SHUKLA DO, DI K 716.90 ARTHRITIS/ ARTHROPATHY, UNSPECIFIED 01/26/2013 SHUKLA DO, DI K 716.90 ARTHRITIS/ ARTHROPATHY, UNSPECIFIED 01/26/2013 SHUKLA DO, DI K 716.90 ARTHRITIS/ ARTHROPATHY, UNSPECIFIED 01/26/2013 TARIQ TATE APRN 716.90 ARTHRITIS/ ARTHROPATHY, UNSPECIFIED 01/26/2013 TARIQ TATE APRN 716.90 ARTHRITIS/ ARTHROPATHY, UNSPECIFIED 01/26/2013 SHUKLA DO, DI K 716.90 ARTHRITIS/ ARTHROPATHY, UNSPECIFIED 01/26/2013 SHUKLA DO, DI K 716.90 ARTHRITIS/ ARTHROPATHY, UNSPECIFIED 01/26/2013 SHUKLA DO, DI K 716.90 ARTHRITIS/ ARTHROPATHY, UNSPECIFIED 01/26/2013 SHUKLA DO, DI K 716.90 ARTHRITIS/ ARTHROPATHY, UNSPECIFIED 01/26/2013 THEO GRIER APRN 716.90 ARTHRITIS/ ARTHROPATHY, UNSPECIFIED 01/26/2013 SHUKLA DO, DI K 716.90 ARTHRITIS/ ARTHROPATHY, UNSPECIFIED 01/26/2013 SHUKLA DO, DI K 716.90 ARTHRITIS/ ARTHROPATHY, UNSPECIFIED 07/07/2013 382.9 UNSPECIFIED OTITIS MEDIA 07/07/2013 382.9 UNSPECIFIED OTITIS MEDIA 07/07/2013 SHUKLA DO, DI K 382.9 UNSPECIFIED OTITIS MEDIA 07/07/2013 SHUKLA DO, DI K 382.9 UNSPECIFIED OTITIS MEDIA 07/07/2013 SHUKLA DO, DI K 382.9 UNSPECIFIED OTITIS MEDIA 07/07/2013 SHUKLA DO, DI K 382.9 UNSPECIFIED OTITIS MEDIA 07/07/2013 TATE LABORER SHELLFISH PROCESSINGTARIQ R 382.9 UNSPECIFIED OTITIS MEDIA 07/07/2013 TATE LABORER SHELLFISH PROCESSING, TARIQ R 382.9 UNSPECIFIED OTITIS MEDIA 07/07/2013 SHUKLA DO, DI K 382.9 UNSPECIFIED OTITIS MEDIA 07/07/2013 SHUKLA DO, DI K 382.9 UNSPECIFIED OTITIS MEDIA 07/07/2013 SHUKLA DO, DI K 382.9 UNSPECIFIED OTITIS MEDIA 07/07/2013 SHUKLA DO, DI K 382.9 UNSPECIFIED OTITIS MEDIA 07/07/2013 SAMEERALFELTON LABORER SHELLFISH PROCESSINGTHEO 382.9 UNSPECIFIED OTITIS MEDIA 07/07/2013 SHUKLA DO, DI K 382.9 UNSPECIFIED OTITIS MEDIA 07/07/2013 SHUKLA DO, DI K 382.9 UNSPECIFIED OTITIS MEDIA 07/21/2013 466.0 BRONCHITIS, ACUTE 07/21/2013 SHUKLA DO, DI K 466.0 BRONCHITIS, ACUTE 07/21/2013 SHUKLA DO, DI K 466.0 BRONCHITIS, ACUTE 07/21/2013 SHUKLA DO, DI K 466.0 BRONCHITIS, ACUTE 07/21/2013 SHUKLA DO, DI K 466.0 BRONCHITIS, ACUTE 07/21/2013 TATE LABORER SHELLFISH PROCESSING, TARIQ R 466.0 BRONCHITIS, ACUTE 07/21/2013 TATE LABORER SHELLFISH PROCESSING, TARIQ R 466.0 BRONCHITIS, ACUTE 07/21/2013 SHUKLA DO, DI K 466.0 BRONCHITIS, ACUTE 07/21/2013 SHUKLA DO, DI K 466.0 BRONCHITIS, ACUTE 07/21/2013 SHUKLA DO, DI K 466.0 BRONCHITIS, ACUTE 07/21/2013 SHUKLA DO, DI K 466.0 BRONCHITIS, ACUTE 07/21/2013 MARVEL LABORER SHELLFISH PROCESSINGTHEO Mena E 466.0 BRONCHITIS, ACUTE 07/21/2013 SHUKLA DO, DI K 466.0 BRONCHITIS, ACUTE 07/21/2013 SHUKLA DO, DI K 466.0 BRONCHITIS, ACUTE 09/23/2013 SHUKLA DO, DI K 465.9 UPPER RESPIRATORY INFECTION 09/23/2013 SHUKLA DO, DI K 465.9 UPPER RESPIRATORY INFECTION 09/23/2013 SHUKLA DO, DI K 465.9 UPPER RESPIRATORY INFECTION 09/23/2013 TARIQ TATE APRN 465.9 UPPER RESPIRATORY INFECTION 09/23/2013 TARIQ TATE APRN 465.9 UPPER RESPIRATORY INFECTION 09/23/2013 SHUKLA DO, DI K 465.9 UPPER RESPIRATORY INFECTION 09/23/2013 SHUKLA DO, DI K 465.9 UPPER RESPIRATORY INFECTION 09/23/2013 SHUKLA DO, DI K 465.9 UPPER RESPIRATORY INFECTION 09/23/2013 SHUKLA DO, DI K 465.9 UPPER RESPIRATORY INFECTION 09/23/2013 THEO GRIER APRN 465.9 UPPER RESPIRATORY INFECTION 09/23/2013 SHUKLA DO, DI K 465.9 UPPER RESPIRATORY INFECTION 09/23/2013 SHUKLA DO, DI K 465.9 UPPER RESPIRATORY INFECTION 10/26/2013 SHUKLA DO, DI K 786.2 COUGH 10/26/2013 SHUKLA DO, DI K 786.2 COUGH 10/26/2013 TARIQ TATE APRN R 786.2 COUGH 10/26/2013 TARIQ TATE APRN 786.2 COUGH 10/26/2013 SHUKLA DO, DI K 786.2 COUGH 10/26/2013 SHUKLA DO, DI K 786.2 COUGH 10/26/2013 SHUKLA DO, DI K 786.2 COUGH 10/26/2013 SHUKLA DO, DI K 786.2 COUGH 10/26/2013 THEO GRIER APRN 786.2 COUGH 10/26/2013 SHUKLA DO, DI K 786.2 COUGH 10/26/2013 SHUKLA DO, DI K 786.2 COUGH 12/10/2013 TARIQ TATE APRN 487.1 INFLUENZA 12/10/2013 SHUKLA DO, DI K 487.1 INFLUENZA 12/10/2013 SHUKLA DO, DI K 487.1 INFLUENZA 12/10/2013 SHUKLA DO, DI K 487.1 INFLUENZA 12/10/2013 SHUKLA DO, DI K 487.1 INFLUENZA 12/10/2013 THEO GRIER APRN 487.1 INFLUENZA 12/10/2013 SHUKLA DO, DI K 487.1 INFLUENZA 12/10/2013 SHUKLA DO, DI K 487.1 INFLUENZA 06/08/2014 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 Ot 590.80 PYELONEPHRITIS NOS 06/08/2014 LEE, PETER J LABORER SHELLFISH PROCESSING Ot 724.2 LUMBAGO 06/14/2014 SHUKLA DO, DI K 599.0 URINARY TRACT INFECTION 06/14/2014 SHUKLA DO, DI K 599.0 URINARY TRACT INFECTION 06/14/2014 SHUKLA DO, DI K 599.0 URINARY TRACT INFECTION 06/14/2014 THEO GRIER APRN 599.0 URINARY TRACT INFECTION 06/14/2014 SHUKLA DO, DI K 599.0 URINARY TRACT INFECTION 06/14/2014 SHUKLA DO, DI K 599.0 URINARY TRACT INFECTION 07/28/2014 SITA CLARKE Ot 784.0 HEADACHE 07/28/2014 SITA CLARKE Ot 850.0 CONCUSSION W/O COMA 07/28/2014 SITA CLARKE Ot E000.8 OTHER EXTERNAL CAUSE STATUS 07/28/2014 SITA CLARKE Ot E849.0 ACCIDENT IN HOME 07/28/2014 SITA CLARKE Ot E917.9 STRUCK BY OBJ/PERSON NEC 09/17/2014 CANDIE HERNANDEZ VP PURCHASING Ot V76.12 09/17/2014 THEO GRIER LABORER SHELLFISH PROCESSING Ot V76.12 09/17/2014 THEO GRIER LABORER SHELLFISH PROCESSING Ot V76.12 09/17/2014 THEO GRIER LABORER SHELLFISH PROCESSING Ot V76.12 12/26/2014 Ot 466.0 ACUTE BRONCHITIS 12/26/2014 Ot 786.2 COUGH 12/29/2014 CANDIE HERNANDEZ VP PURCHASING Ot V76.12 12/29/2014 THEO GRIER LABORER SHELLFISH PROCESSING Ot V76.12 01/18/2015 HOLLY SHUKLA DOA K 786.05 SHORTNESS OF BREATH 02/03/2015 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 Ot 724.2 LUMBAGO 02/03/2015 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 Ot 959.19 OTH INJURY OF OTHER SITES OF TRUNK 02/03/2015 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 Ot E000.8 OTHER EXTERNAL CAUSE STATUS 02/03/2015 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 Ot E849.0 ACCIDENT IN HOME 02/03/2015 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 Ot E888.9 FALL NOS 02/07/2015 HOLLY SHUKLA DOA K 496 COPD 02/11/2015 DI SHUKLA DO K 380.10 INFECTIVE OTITIS EXTERNA UNSPECIFIED 03/04/2015 TATETARIQ R CFNP Ot 496 03/04/2015 TATE, TARIQ R CFNP Ot 786.05 03/25/2015 TATE, TARIQ R CFNP Ot 496 03/25/2015 TATE, TARIQ R CFNP Ot 786.05 04/17/2015 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 Ot 496 CHR AIRWAY OBSTRUCT NEC 04/17/2015 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 Ot 786.2 COUGH 04/19/2015 TATE, TARIQ R CFNP Ot 573.8 04/19/2015 TATE, TARIQ R CFNP Ot 786.05 04/19/2015 TATE, TARIQ R CFNP Ot 786.2 04/19/2015 TATE, TARIQ R CFNP Ot 793.19 04/28/2015 TATE, TARIQ R CFNP Ot 573.8 04/28/2015 TATE, TARIQ R CFNP Ot 786.05 04/28/2015 TATE, TARIQ R CFNP Ot 786.2 04/28/2015 TATE, TARIQ R CFNP Ot 793.19 05/02/2015 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 Ot 881.00 OPEN WOUND OF FOREARM 05/02/2015 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 Ot 919.0 ABRASION NEC 05/02/2015 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 Ot E000.8 OTHER EXTERNAL CAUSE STATUS 05/02/2015 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 Ot E906.0 DOG BITE 05/02/2015 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 Ot V06.1 [id number], COMBINED [ 05/07/2015 CANDIE HERNANDEZ Ot V76.12 05/07/2015 THEO GRIER APRN Ot V76.12 05/07/2015 TATETARIQ R CFNP Ot 496 05/07/2015 TATE, TARIQ R CFNP Ot 786.05 05/07/2015 TATE, TARIQ R CFNP Ot 573.8 05/07/2015 TATE, TARIQ R CFNP Ot 786.05 05/07/2015 TATE, TARIQ R CFNP Ot 786.2 05/07/2015 TATE, TARIQ R CFNP Ot 793.19 05/07/2015 CANDIE HERNANDEZ VP PURCHASING Ot V76.12 05/07/2015 THEO GRIER LABORER SHELLFISH PROCESSING Ot V76.12 05/07/2015 TATE, TARIQ Bhardwaj CFNP Ot 496 05/07/2015 TATE, TARIQ R CFNP Ot 786.05 05/07/2015 TATE, TARIQ R CFNP Ot 573.8 05/07/2015 TATE, TARIQ R CFNP Ot 786.05 05/07/2015 TATE, TARIQ R CFNP Ot 786.2 05/07/2015 TATE, TARIQ Bhardwaj CFNP Ot 793.19 05/07/2015 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 Ot 686.9 LOCAL SKIN INFECTION NOS 05/07/2015 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 Ot 881.00 OPEN WOUND OF FOREARM 05/07/2015 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 Ot 890.0 OPEN WOUND OF HIP/THIGH 05/07/2015 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 Ot E000.8 OTHER EXTERNAL CAUSE STATUS 05/07/2015 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 Ot E906.0 DOG BITE 05/10/2015 CANDIE HERNANDEZ VP PURCHASING Ot V76.12 05/10/2015 THEO GRIER APRN Ot V76.12 05/10/2015 TATE, TARIQ Bhardwaj CFNP Ot 496 05/10/2015 TATE, TARIQ Bhardwaj CFNP Ot 786.05 05/10/2015 TATE, TARIQ Bhardwaj CFNP Ot 573.8 05/10/2015 TATE, TARIQ R CFNP Ot 786.05 05/10/2015 TATE, TARIQ R CFNP Ot 786.2 05/10/2015 TATE, TARIQ R CFNP Ot 793.19 06/07/2015 CANDIE HERNANDEZ VP PURCHASING Ot V76.12 06/07/2015 THEO GRIER LABORER SHELLFISH PROCESSING Ot V76.12 06/07/2015 TATE, TARIQ R CFNP Ot 496 06/07/2015 TATE, TARIQ R CFNP Ot 786.05 06/07/2015 TATE, TARIQ R CFNP Ot 573.8 06/07/2015 TATE, TARIQ R CFNP Ot 786.05 06/07/2015 TARIQ TATE CFNP Ot 786.2 06/07/2015 TARIQ TATE CFNP Ot 793.19 06/07/2015 LALITHA SQUIRES DO Ot 278.00 06/07/2015 TAVIA LANGLEYSTARLALITHA M Ot 496 06/07/2015 TAVIA LANGLEYSTARLALITHA M Ot 278.00 06/07/2015 LALITHA SQUIRES DO Ot 496 06/08/2015 LALITHA SQUIRES DO Ot 278.00 06/08/2015 TAVIA LANGLEY LALITHA M Ot 493.20 06/16/2015 TAVIA LANGLEY LALITHA M Ot 278.00 06/16/2015 LALITHA SQUIRES DO Ot 496 06/17/2015 LALITHA SQUIRES DO Ot 493.90 ASTHMA, UNSPECIFIED 06/17/2015 LALITHA SQUIRES DO Ot 786.09 RESPIRATORY ABNORM NEC 07/18/2015 LALITHA SQUIRES DO Ot 278.00 07/18/2015 LALITHA SQUIRES DO Ot 493.20 08/01/2015 TAVIA LANGLEY LALITHA M Ot 278.00 08/01/2015 TAVIA LANGLEY LALITHA M Ot 493.20 08/08/2015 ANA PAULA HERBERT, LUZ Canas Ot M25.511 PAIN IN RIGHT SHOULDER 08/08/2015 CANDIE HERNANDEZ Ot V76.12 08/08/2015 THEO GRIER APRN Ot V76.12 08/08/2015 TARIQ TATE CFNP Ot 496 08/08/2015 TARIQ TATE CFNP Ot 786.05 08/08/2015 TARIQ TATE CFNP Ot 573.8 08/08/2015 TARIQ TATE CFNP Ot 786.05 08/08/2015 TARIQ TATE CFNP Ot 786.2 08/08/2015 TARIQ TATE CFNP Ot 793.19 08/08/2015 LALITHA SQUIRES DO Ot 278.00 08/08/2015 LALITHA SQUIRES DO Ot 496 08/08/2015 LALITHA SQUIRES DO Ot 278.00 08/08/2015 LALITHA SQUIRES DO Ot 493.20 08/20/2015 Ot M54.9 DORSALGIA, UNSPECIFIED 08/20/2015 Ot N39.0 URINARY TRACT INFECTION, SITE NOT SPECIF 08/20/2015 Ot R91.8 OTHER NONSPECIFIC ABNORMAL FINDING OF NOAM 08/24/2015 CANDIE HERNANDEZP Ot V76.12 08/24/2015 THEO GRIER APRN Ot V76.12 08/24/2015 TARIQ TATE CFNP Ot 496 08/24/2015 TARIQ TATE R CFNP Ot 786.05 08/24/2015 TATETARIQ CHRISTINE R CFNP Ot 573.8 08/24/2015 TATETARIQ R CFNP Ot 786.05 08/24/2015 TATETARIQ R CFNP Ot 786.2 08/24/2015 TATETARIQ CHRISTINE CFNP Ot 793.19 08/24/2015 LALITHA SQUIRES DO Ot 278.00 08/24/2015 LALITHA SQUIRES DO Ot 496 08/24/2015 LALITHA SQUIRES DO Ot 278.00 08/24/2015 LALITHA SQUIRES DO Ot 493.20 08/24/2015 CANDIE HERNANDEZP Ot V76.12 08/24/2015 THEO GRIER LABORER SHELLFISH PROCESSING Ot V76.12 08/24/2015 TARIQ TATE CFNP Ot 496 08/24/2015 TATETARIQ CHRISTINE R CFNP Ot 786.05 08/24/2015 TATETARIQ CHRISTINE R CFNP Ot 573.8 08/24/2015 TARIQ TATE R CFNP Ot 786.05 08/24/2015 TARIQ TATE R CFNP Ot 786.2 08/24/2015 TATETARIQ CHRISTINE R CFNP Ot 793.19 08/24/2015 LALITHA SQUIRES DO Ot 278.00 08/24/2015 LALITHA SQUIRES DO Ot 496 08/24/2015 LALITHA SQUIRES DO Ot 278.00 08/24/2015 LALITHA SQUIRES DO Ot 493.20 08/26/2015 LALITHA SQUIRES DO Ot J44.9 08/26/2015 LALITHA SQUIRES DO Ot J45.909 08/26/2015 CANDIE HERNANDEZ Ot V76.12 08/26/2015 THEO GRIER APRN Ot V76.12 08/26/2015 TARIQ TATE R CFNP Ot 496 08/26/2015 TARIQ TATE R CFNP Ot 786.05 08/26/2015 TARIQ TATE R CFNP Ot 573.8 08/26/2015 TARIQ TATE R CFNP Ot 786.05 08/26/2015 TARIQ TATE R CFNP Ot 786.2 08/26/2015 TARIQ TATE R CFNP Ot 793.19 08/26/2015 STAR SQUIRES DOSON M Ot 278.00 08/26/2015 STAR SQUIRES DOSON M Ot 496 08/26/2015 STAR SQUIRES DOSON M Ot 278.00 08/26/2015 STAR SQUIRES DOSON M Ot 493.20 08/26/2015 THEO GRIER APRN Ot Z12.31 08/26/2015 STAR SQUIRES DOSON M Ot J44.9 08/26/2015 STAR SQUIRES DOSON M Ot J45.909 08/31/2015 STAR SQUIRES DOSON M Ot J44.9 08/31/2015 STAR SQUIRES DOSON M Ot J45.909 09/07/2015 THEO GRIER APRN Ot Z12.31 09/13/2015 THEO GRIER APRN Ot Z12.31 09/28/2015 STAR SQUIRES DOSON M Ot J44.9 09/28/2015 STAR SQUIRES DOSON M Ot J45.909 10/17/2015 STAR SQUIRES DOSON M Ot J44.9 10/17/2015 STAR SQUIRES DOSON M Ot J45.909 10/17/2015 STAR SQUIRES DOSON M Ot J44.9 10/17/2015 STAR SQUIRES DOSON M Ot J45.909 10/26/2015 STAR SQUIRES DOSON M Ot J44.9 10/26/2015 STAR SQUIRES DOSON M Ot J45.909 10/26/2015 STAR SQUIRES DOSON M Ot J44.9 10/26/2015 STAR SQUIRES DOSON M Ot J45.909 10/26/2015 LALITHA SQUIRES DO M Ot J44.9 10/26/2015 LALITHA SQUIRES DO M Ot J45.909 10/26/2015 LALITHA SQUIRES DO M Ot J44.9 10/26/2015 LALITHA SQUIRES DO M Ot J45.909 11/22/2015 LALITHA SQUIRES DO Ot J44.9 CHRONIC OBSTRUCTIVE PULMONARY DISEASE, U 11/22/2015 LALITHA SQUIRES DO Ot J45.909 UNSPECIFIED ASTHMA, UNCOMPLICATED 11/23/2015 LALITHA SQUIRES DO Ot J44.9 11/23/2015 LALITHA SQUIRES DO M Ot J45.909 11/23/2015 LALITHA SQUIRES DO Ot J44.9 11/23/2015 LALITHA SQUIRES DO M Ot J45.909 11/23/2015 LALITHA SQUIRES DO M Ot J44.9 11/23/2015 LALITHA SQUIRES DO M Ot J45.909 11/23/2015 LALITHA SQUIRES DO M Ot J44.9 11/23/2015 LALITHA SQUIRES DO M Ot J45.909 11/23/2015 LALITHA SQUIRES DO M Ot J44.9 11/23/2015 LALITHA SQUIRES DO M Ot J45.909 12/21/2015 LALITHA SQUIRES DO M Ot J44.9 12/21/2015 LALITHA SQUIRES DO M Ot J45.909 12/21/2015 LALITHA SQUIRES DO M Ot J44.9 12/21/2015 LALITHA SQUIRES DO M Ot J45.909 01/18/2016 LALITHA SQUIRES DO M Ot J44.9 01/18/2016 TAVIALALITHA MARADIAGA DO M Ot J45.909 01/18/2016 TAVIALALITHA MARADIAGA DO M Ot J44.9 01/18/2016 LALITHA SQUIRES DO M Ot J45.909 01/23/2016 LALITHA SQUIRES DO M Ot J44.9 01/23/2016 LALITHA SQUIRES DO M Ot J45.909 01/28/2016 KERVIN LIAO DO Ot K52.9 NONINFECTIVE GASTROENTERITIS AND COLITIS 01/28/2016 CANDIE HERNANDEZ Ot V76.12 01/28/2016 THEO GRIER APRN Ot V76.12 01/28/2016 TARIQ TATE R CFNP Ot 496 01/28/2016 TARIQ TATE R CFNP Ot 786.05 01/28/2016 TARIQ TATE R CFNP Ot 573.8 01/28/2016 TARIQ TATE R CFNP Ot 786.05 01/28/2016 TARIQ TATE R CFNP Ot 786.2 01/28/2016 TARIQ TATE R CFNP Ot 793.19 01/28/2016 LALITHA SQUIRES DO Ot 278.00 01/28/2016 LALITHA SQUIRES DO Ot 496 01/28/2016 LALITHA SQUIRES DO Ot 278.00 01/28/2016 LALITHA SQUIRES DO Ot 493.20 01/28/2016 THEO GRIER APRN Ot Z12.31 01/28/2016 LALITHA SQUIRES DO Ot J44.9 01/28/2016 LALITHA SQUIRES DO Ot J45.909 01/30/2016 KESHAWN LANGLEY KERVIN Nick Ot K52.9 02/15/2016 LALITHA SQUIRES DO Ot J44.9 02/15/2016 LALITHA SQUIRES DO Ot J45.909 02/15/2016 LALITHA SQUIRES DO Ot J44.9 02/15/2016 LALITHA SQUIRES DO Ot J45.909 02/21/2016 LALITHA SQUIRES DO Ot J44.9 CHRONIC OBSTRUCTIVE PULMONARY DISEASE, U 02/21/2016 LALITHA SQUIRES DO Ot J45.909 UNSPECIFIED ASTHMA, UNCOMPLICATED 03/14/2016 LALITHA SQUIRES DO Ot J44.9 CHRONIC OBSTRUCTIVE PULMONARY DISEASE, U 03/14/2016 LALITHA SQUIRES DO Ot J45.909 UNSPECIFIED ASTHMA, UNCOMPLICATED 03/14/2016 LALITHA SQUIRES DO Ot J44.9 CHRONIC OBSTRUCTIVE PULMONARY DISEASE, U 03/14/2016 LALITHA SQUIRES DO Ot J45.909 UNSPECIFIED ASTHMA, UNCOMPLICATED 03/15/2016 LALITHA SQUIRES DO Ot J44.9 CHRONIC OBSTRUCTIVE PULMONARY DISEASE, U 03/15/2016 LALITHA SQUIRES DO Ot J45.909 UNSPECIFIED ASTHMA, UNCOMPLICATED 03/20/2016 LALITHA SQUIRES DO Ot J44.9 CHRONIC OBSTRUCTIVE PULMONARY DISEASE, U 03/20/2016 LALITHA SQUIRES DO Ot J45.909 UNSPECIFIED ASTHMA, UNCOMPLICATED 04/11/2016 LALITHA SQUIRES DO Ot J44.9 CHRONIC OBSTRUCTIVE PULMONARY DISEASE, U 04/11/2016 LALITHA SQUIRES DO Ot J45.909 UNSPECIFIED ASTHMA, UNCOMPLICATED 05/09/2016 LALITHA SQUIRES DO Ot J44.9 CHRONIC OBSTRUCTIVE PULMONARY DISEASE, U 05/09/2016 LALITHA SQUIRES DO Ot J45.909 UNSPECIFIED ASTHMA, UNCOMPLICATED 06/06/2016 CANDIE HERNANDEZ Ot V76.12 OTH SCREEN MAMMO-MALIGN NEOPLASM OF YOLY 06/06/2016 THEO GRIER APRN Ot V76.12 OTH SCREEN MAMMO-MALIGN NEOPLASM OF YOLY 06/06/2016 TARIQ TATE CFNP Ot 496 CHR AIRWAY OBSTRUCT NEC 06/06/2016 TARIQ TATE CFNP Ot 786.05 SHORTNESS OF BREATH 06/06/2016 TARIQ TATE CFNP Ot 573.8 LIVER DISORDERS NEC 06/06/2016 TARIQ TATE CFNP Ot 786.05 SHORTNESS OF BREATH 06/06/2016 TARIQ TATE CFNP Ot 786.2 COUGH 06/06/2016 TARIQ TATE CFNP Ot 793.19 OTHER NONSPECIFIC ABNORMAL FINDING OF NOAM 06/06/2016 LALITHA SQUIRES DO Ot 278.00 OBESITY, NOS 06/06/2016 LALITHA SQUIRES DO Ot 496 CHR AIRWAY OBSTRUCT NEC 06/06/2016 LALITHA SQUIRES DO Ot 278.00 OBESITY, NOS 06/06/2016 LALITHA SQUIRES DO Ot 493.20 CHRONIC OBSTRUCTIVE ASTHMA, NOS 06/06/2016 THEO GRIER APRN Ot Z12.31 ENCNTR SCREEN MAMMOGRAM FOR MALIGNANT NE 06/06/2016 LALITHA SQUIRES DO Ot J44.9 CHRONIC OBSTRUCTIVE PULMONARY DISEASE, U 06/06/2016 LALITHA SQUIRES DO Ot J45.909 UNSPECIFIED ASTHMA, UNCOMPLICATED 06/06/2016 CANDIE HERNANDEZ Ot V76.12 OTH SCREEN MAMMO-MALIGN NEOPLASM OF YOLY 06/06/2016 THEO GRIER APRN Ot V76.12 OTH SCREEN MAMMO-MALIGN NEOPLASM OF YOLY 06/06/2016 TARIQ TATE Lashae CFNP Ot 496 CHR AIRWAY OBSTRUCT NEC 06/06/2016 TARIQ TATE R CFNP Ot 786.05 SHORTNESS OF BREATH 06/06/2016 TARIQ TATE R CFNP Ot 573.8 LIVER DISORDERS NEC 06/06/2016 TARIQ TATE R CFNP Ot 786.05 SHORTNESS OF BREATH 06/06/2016 TARIQ TATE R CFNP Ot 786.2 COUGH 06/06/2016 BEBETO TARIQ Bhardwaj CFNP Ot 793.19 OTHER NONSPECIFIC ABNORMAL FINDING OF NOAM 06/06/2016 LALITHA SQUIRES DO Ot 278.00 OBESITY, NOS 06/06/2016 LALITHA SQUIRES DO Ot 496 CHR AIRWAY OBSTRUCT NEC 06/06/2016 LALITHA SQUIRES DO Ot 278.00 OBESITY, NOS 06/06/2016 LALITHA SQUIRES DO Ot 493.20 CHRONIC OBSTRUCTIVE ASTHMA, NOS 06/06/2016 THEO GRIER APRN Ot Z12.31 ENCNTR SCREEN MAMMOGRAM FOR MALIGNANT NE 06/06/2016 LALITHA SQUIRES DO Ot J44.9 CHRONIC OBSTRUCTIVE PULMONARY DISEASE, U 06/06/2016 LALITHA SQUIRES DO Ot J45.909 UNSPECIFIED ASTHMA, UNCOMPLICATED 06/06/2016 LALITHA SQUIRES DO Ot J44.9 CHRONIC OBSTRUCTIVE PULMONARY DISEASE, U 06/06/2016 LALITHA SQUIRES DO Ot J45.909 UNSPECIFIED ASTHMA, UNCOMPLICATED 06/06/2016 LALITHA SQUIRES DO Ot J44.9 CHRONIC OBSTRUCTIVE PULMONARY DISEASE, U 06/06/2016 LALITHA SQUIRES DO Ot J45.909 UNSPECIFIED ASTHMA, UNCOMPLICATED 06/06/2016 LALITHA SQUIRES DO Ot J44.9 CHRONIC OBSTRUCTIVE PULMONARY DISEASE, U 06/06/2016 LALITHA SQUIRES DO Ot J45.909 UNSPECIFIED ASTHMA, UNCOMPLICATED 06/06/2016 LALITHA SQUIRES DO Ot J44.9 CHRONIC OBSTRUCTIVE PULMONARY DISEASE, U 06/06/2016 LALITHA SQUIRES DO Ot J45.909 UNSPECIFIED ASTHMA, UNCOMPLICATED 06/12/2016 LALITHA SQUIRES DO Ot J44.9 CHRONIC OBSTRUCTIVE PULMONARY DISEASE, U 06/12/2016 LALITHA SQUIRES DO Ot J45.909 UNSPECIFIED ASTHMA, UNCOMPLICATED 06/19/2016 CADNIE HERNANDEZ TIBURCIO Ot V76.12 OTH SCREEN MAMMO-MALIGN NEOPLASM OF YOLY 06/19/2016 THEO GRIER APRN Ot V76.12 OTH SCREEN MAMMO-MALIGN NEOPLASM OF YOLY 06/19/2016 TARIQ TATE CFNP Ot 496 CHR AIRWAY OBSTRUCT NEC 06/19/2016 TARIQ TATE CFNP Ot 786.05 SHORTNESS OF BREATH 06/19/2016 TARIQ TATE CFNP Ot 573.8 LIVER DISORDERS NEC 06/19/2016 TARIQ TATE CFNP Ot 786.05 SHORTNESS OF BREATH 06/19/2016 TARIQ TATE CFNP Ot 786.2 COUGH 06/19/2016 TARIQ TATE CFNP Ot 793.19 OTHER NONSPECIFIC ABNORMAL FINDING OF NOAM 06/19/2016 LALITHA SQUIRES DO Ot 278.00 OBESITY, NOS 06/19/2016 LALITHA SQUIRES DO Ot 496 CHR AIRWAY OBSTRUCT NEC 06/19/2016 LALITHA SQUIRES DO Ot 278.00 OBESITY, NOS 06/19/2016 LALITHA SQUIRES DO Ot 493.20 CHRONIC OBSTRUCTIVE ASTHMA, NOS 06/19/2016 THEO GRIER APRN Ot Z12.31 ENCNTR SCREEN MAMMOGRAM FOR MALIGNANT NE 06/19/2016 LALITHA SQUIRES DO Ot J44.9 CHRONIC OBSTRUCTIVE PULMONARY DISEASE, U 06/19/2016 LALITHA SQUIRES DO Ot J45.909 UNSPECIFIED ASTHMA, UNCOMPLICATED 06/19/2016 SITA CLARKE Ot M25.461 EFFUSION, RIGHT KNEE 06/19/2016 SITA CLARKE Ot M25.561 PAIN IN RIGHT KNEE 06/21/2016 SITA CLARKE Ot M25.461 EFFUSION, RIGHT KNEE 06/21/2016 SITA CLARKE Ot M25.561 PAIN IN RIGHT KNEE 06/25/2016 SITA CLARKE Ot M25.461 EFFUSION, RIGHT KNEE 06/25/2016 SITA CLARKE Ot M25.561 PAIN IN RIGHT KNEE 07/02/2016 LALITHA SQUIRES DO Ot J44.9 CHRONIC OBSTRUCTIVE PULMONARY DISEASE, U 07/02/2016 LALITHA SQUIRES DO Ot J45.909 UNSPECIFIED ASTHMA, UNCOMPLICATED 07/04/2016 CANDIE HERNANDEZ TIBURCIO Ot V76.12 OTH SCREEN MAMMO-MALIGN NEOPLASM OF YOLY 07/04/2016 THEO GRIER APRN Ot V76.12 OTH SCREEN MAMMO-MALIGN NEOPLASM OF YOLY 07/04/2016 TARIQ TATE CFNP Ot 496 CHR AIRWAY OBSTRUCT NEC 07/04/2016 TARIQ TATE CFNP Ot 786.05 SHORTNESS OF BREATH 07/04/2016 TARIQ TATE CFNP Ot 573.8 LIVER DISORDERS NEC 07/04/2016 TARIQ TATE CFNP Ot 786.05 SHORTNESS OF BREATH 07/04/2016 TARIQ TATE CFNP Ot 786.2 COUGH 07/04/2016 TARIQ TATE CFNP Ot 793.19 OTHER NONSPECIFIC ABNORMAL FINDING OF NOAM 07/04/2016 LALITHA SQUIRES DO Ot 278.00 OBESITY, NOS 07/04/2016 LALITHA SQUIRES DO Ot 496 CHR AIRWAY OBSTRUCT NEC 07/04/2016 LALITHA SQUIRES DO Ot 278.00 OBESITY, NOS 07/04/2016 LALITHA SQUIRES DO Ot 493.20 CHRONIC OBSTRUCTIVE ASTHMA, NOS 07/04/2016 THEO GRIER APRN Ot Z12.31 ENCNTR SCREEN MAMMOGRAM FOR MALIGNANT NE 07/04/2016 LALITHA SQUIRES DO Ot J44.9 CHRONIC OBSTRUCTIVE PULMONARY DISEASE, U 07/04/2016 LALITHA SQUIRES DO Ot J45.909 UNSPECIFIED ASTHMA, UNCOMPLICATED 07/04/2016 LALITHA SQUIRES DO Ot J44.9 CHRONIC OBSTRUCTIVE PULMONARY DISEASE, U 07/04/2016 LALITHA SQUIRES DO Ot J45.909 UNSPECIFIED ASTHMA, UNCOMPLICATED 07/04/2016 LALITHA SQUIRES DO Ot J44.9 CHRONIC OBSTRUCTIVE PULMONARY DISEASE, U 07/04/2016 LALITHA SQUIRES DO Ot J45.909 UNSPECIFIED ASTHMA, UNCOMPLICATED 07/05/2016 TAVIA LANGLEY LALITHA M Ot J44.9 CHRONIC OBSTRUCTIVE PULMONARY DISEASE, U 07/05/2016 TAVIA LANGLEY LALITHA M Ot J45.909 UNSPECIFIED ASTHMA, UNCOMPLICATED 08/02/2016 TAVIA LANGLEY LALITHA M Ot J44.9 CHRONIC OBSTRUCTIVE PULMONARY DISEASE, U 08/02/2016 TAVIA LANGLEY LALITHA M Ot J45.909 UNSPECIFIED ASTHMA, UNCOMPLICATED 08/29/2016 TAVIA LANGLEYSTARLALITHA M Ot J44.9 CHRONIC OBSTRUCTIVE PULMONARY DISEASE, U 08/29/2016 TAVIA LANGLEY, LALITHA M Ot J45.909 UNSPECIFIED ASTHMA, UNCOMPLICATED 08/29/2016 TAVIA LANGLEY LALITHA M Ot J44.9 CHRONIC OBSTRUCTIVE PULMONARY DISEASE, U 08/29/2016 TAVIA LANGLEY LALITHA M Ot J45.909 UNSPECIFIED ASTHMA, UNCOMPLICATED 08/31/2016 TAVIA LANGLEYLALITHA M Ot J44.9 CHRONIC OBSTRUCTIVE PULMONARY DISEASE, U 08/31/2016 TAVIA LANGLEY LALITHA M Ot J45.909 UNSPECIFIED ASTHMA, UNCOMPLICATED 08/31/2016 TAVIA LANGLEY LALITHA M Ot J44.9 CHRONIC OBSTRUCTIVE PULMONARY DISEASE, U 08/31/2016 TAVIA LANGLEY LALITHA M Ot J45.909 UNSPECIFIED ASTHMA, UNCOMPLICATED 09/05/2016 BAO ROSAHA L Ot Z12.31 ENCNTR SCREEN MAMMOGRAM FOR MALIGNANT NE 09/10/2016 MOE YVETTE L Ot Z12.31 ENCNTR SCREEN MAMMOGRAM FOR MALIGNANT NE 09/24/2016 KRISTIN HERBERT, OBDULIO T Ot J44.0 CHRONIC OBSTRUCTIVE PULMON DISEASE W ACU 09/24/2016 KRISTIN HERBERT, OBDULIO Merchant Ot R05 COUGH 09/24/2016 KRISTIN HERBERT, OBDULIO Merchant Ot 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 09/26/2016 KRISTIN HERBERT, OBDULIO Merchant Ot J44.0 CHRONIC OBSTRUCTIVE PULMON DISEASE W ACU 09/26/2016 KRISTIN HERBERT, OBDULIO T Ot R05 COUGH 09/26/2016 KRISTIN HERBERT, OBDULIO T Ot 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 09/28/2016 STAR SQUIRES DOSON M Ot J44.9 CHRONIC OBSTRUCTIVE PULMONARY DISEASE, U 09/28/2016 STAR SQUIRES DOSON M Ot J45.909 UNSPECIFIED ASTHMA, UNCOMPLICATED 09/30/2016 KRISTIN HERBERT, OBDULIO Merchant Ot J44.0 CHRONIC OBSTRUCTIVE PULMON DISEASE W ACU 09/30/2016 KRISTIN HERBERT, OBDULIO Merchant Ot R05 COUGH 09/30/2016 KRISTIN HERBERT, OBDULIO Merchant Ot 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 10/02/2016 STAR SQUIRES DOSON M Ot J44.9 CHRONIC OBSTRUCTIVE PULMONARY DISEASE, U 10/02/2016 STAR SQUIRES DOSON M Ot J45.909 UNSPECIFIED ASTHMA, UNCOMPLICATED 10/03/2016 LALITHA SQUIRES DO M Ot J44.9 CHRONIC OBSTRUCTIVE PULMONARY DISEASE, U 10/03/2016 STAR SQUIRES DOSON M Ot J45.909 UNSPECIFIED ASTHMA, UNCOMPLICATED 10/10/2016 LALITHA SQUIRES DO M Ot J44.9 CHRONIC OBSTRUCTIVE PULMONARY DISEASE, U 10/10/2016 STAR SQUIRES DOSON M Ot J45.909 UNSPECIFIED ASTHMA, UNCOMPLICATED 10/18/2016 STAR SQUIRES DOSON M Ot J44.9 CHRONIC OBSTRUCTIVE PULMONARY DISEASE, U 10/18/2016 STAR SQUIRES DOSON M Ot J45.909 UNSPECIFIED ASTHMA, UNCOMPLICATED 10/26/2016 STAR SQUIRES DOSON M Ot J44.9 CHRONIC OBSTRUCTIVE PULMONARY DISEASE, U 10/26/2016 STAR SQUIRES DOSON M Ot J45.909 UNSPECIFIED ASTHMA, UNCOMPLICATED 10/26/2016 STAR SQUIRES DOSON M Ot J44.9 CHRONIC OBSTRUCTIVE PULMONARY DISEASE, U 10/26/2016 STAR SQUIRES DOSON M Ot J45.909 UNSPECIFIED ASTHMA, UNCOMPLICATED 10/26/2016 STAR SQUIRES DOSON M Ot J44.9 CHRONIC OBSTRUCTIVE PULMONARY DISEASE, U 10/26/2016 STAR SQUIRES DOSON M Ot J45.909 UNSPECIFIED ASTHMA, UNCOMPLICATED 10/26/2016 STAR SQUIRES DOSON M Ot J44.9 CHRONIC OBSTRUCTIVE PULMONARY DISEASE, U 10/26/2016 STAR SQUIRES DOSON M Ot J45.909 UNSPECIFIED ASTHMA, UNCOMPLICATED 10/26/2016 TAVIALALITHA MARADIAGA DO Ot J44.9 CHRONIC OBSTRUCTIVE PULMONARY DISEASE, U 10/26/2016 LALITHA SQUIRES DO Ot J45.909 UNSPECIFIED ASTHMA, UNCOMPLICATED 10/29/2016 LALITHA SQUIRES DO Ot J44.9 CHRONIC OBSTRUCTIVE PULMONARY DISEASE, U 10/29/2016 LALITHA SQUIRES DO Ot J45.909 UNSPECIFIED ASTHMA, UNCOMPLICATED 10/31/2016 HERNANDEZCANDIE STINSON Willy DEY Ot V76.12 OTH SCREEN MAMMO-MALIGN NEOPLASM OF YOLY 10/31/2016 THEO GRIER APRN Ot V76.12 OTH SCREEN MAMMO-MALIGN NEOPLASM OF YOLY 10/31/2016 TARIQ TATE CFNP Ot 496 CHR AIRWAY OBSTRUCT NEC 10/31/2016 TARIQ TATE CFNP Ot 786.05 SHORTNESS OF BREATH 10/31/2016 TARIQ TATE CFNP Ot 573.8 LIVER DISORDERS NEC 10/31/2016 ATRIQ TATE CFNP Ot 786.05 SHORTNESS OF BREATH 10/31/2016 TARIQ TATE CFNP Ot 786.2 COUGH 10/31/2016 TARIQ TATE CFNP Ot 793.19 OTHER NONSPECIFIC ABNORMAL FINDING OF NOAM 10/31/2016 LALITHA SQUIRES DO Ot 278.00 OBESITY, NOS 10/31/2016 LALITHA SQUIRES DO Ot 496 CHR AIRWAY OBSTRUCT NEC 10/31/2016 LALITHA SQUIRES DO Ot 278.00 OBESITY, NOS 10/31/2016 LALITHA SQUIRES DO Ot 493.20 CHRONIC OBSTRUCTIVE ASTHMA, NOS 10/31/2016 THEO GRIER APRN Ot Z12.31 ENCNTR SCREEN MAMMOGRAM FOR MALIGNANT NE 10/31/2016 YVETTE ROSA Ot Z12.31 ENCNTR SCREEN MAMMOGRAM FOR MALIGNANT NE 10/31/2016 LALITHA SQUIRES DO Ot J44.9 CHRONIC OBSTRUCTIVE PULMONARY DISEASE, U 10/31/2016 LALITHA SQUIRES DO Ot J45.909 UNSPECIFIED ASTHMA, UNCOMPLICATED 10/31/2016 LALITHA SQUIRES DO Ot R05 COUGH 10/31/2016 LALITHA SQUIRES DO Ot R06.00 DYSPNEA, UNSPECIFIED 11/27/2016 LALITHA SQUIRES DO Ot J44.9 CHRONIC OBSTRUCTIVE PULMONARY DISEASE, U 11/27/2016 TAVIA DOSTARLALITHA M Ot J45.909 UNSPECIFIED ASTHMA, UNCOMPLICATED 11/27/2016 TAVIA DOSTARLALITHA M Ot R05 COUGH 11/27/2016 TAVIA DOSTARLALITHA M Ot R06.00 DYSPNEA, UNSPECIFIED 11/27/2016 TAVIA DOSTARLALITHA M Ot J44.9 CHRONIC OBSTRUCTIVE PULMONARY DISEASE, U 11/27/2016 TAVIA DOSTARLALITHA M Ot J45.909 UNSPECIFIED ASTHMA, UNCOMPLICATED 11/27/2016 TAVIA DOSTARLALITHA M Ot R05 COUGH 11/27/2016 TAVIA DOSTARLALITHA M Ot R06.00 DYSPNEA, UNSPECIFIED 12/25/2016 TAVIA DOSTARLALITHA M Ot J44.9 CHRONIC OBSTRUCTIVE PULMONARY DISEASE, U 12/25/2016 TAVIA DOSTARLALITHA M Ot J45.909 UNSPECIFIED ASTHMA, UNCOMPLICATED 12/25/2016 TAVIA DOSTARLALITHA M Ot R05 COUGH 12/25/2016 TAVIA DOSTARLALITHA M Ot R06.00 DYSPNEA, UNSPECIFIED 12/25/2016 TAVIA DOSTARLALITHA M Ot J44.9 CHRONIC OBSTRUCTIVE PULMONARY DISEASE, U 12/25/2016 TAVIA DOSATRLALITHA M Ot J45.909 UNSPECIFIED ASTHMA, UNCOMPLICATED 12/25/2016 TAVIA DOSTARLALITHA M Ot R05 COUGH 12/25/2016 TAVIA DOSTARLALITHA M Ot R06.00 DYSPNEA, UNSPECIFIED 12/29/2016 NILA LEE APRN Ot J44.9 CHRONIC OBSTRUCTIVE PULMONARY DISEASE, U 12/29/2016 NILA LEE APRN Ot M25.552 PAIN IN LEFT HIP 12/29/2016 NILA LEE APRN Ot M54.16 RADICULOPATHY, LUMBAR REGION 12/29/2016 NILA ELE APRN Ot 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 12/31/2016 NILA LEE APRN Ot J44.9 CHRONIC OBSTRUCTIVE PULMONARY DISEASE, U 12/31/2016 NILA LEE APRN Ot M25.552 PAIN IN LEFT HIP 12/31/2016 NILA LEE APRN Ot M54.16 RADICULOPATHY, LUMBAR REGION 12/31/2016 NILA LEE APRN Ot 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 01/22/2017 LALITHA SQUIRES DO M Ot J44.9 CHRONIC OBSTRUCTIVE PULMONARY DISEASE, U 01/22/2017 LALITHA SQUIRES DO M Ot J45.909 UNSPECIFIED ASTHMA, UNCOMPLICATED 01/22/2017 STAR SQUIRES DOSON M Ot R05 COUGH 01/22/2017 STAR SQUIRES DOSON M Ot R06.00 DYSPNEA, UNSPECIFIED 01/22/2017 LALITHA SQUIRES DO M Ot J44.9 CHRONIC OBSTRUCTIVE PULMONARY DISEASE, U 01/22/2017 STAR SQUIRES DOSON M Ot J45.909 UNSPECIFIED ASTHMA, UNCOMPLICATED 01/22/2017 STAR SQUIERS DOSON M Ot R05 COUGH 01/22/2017 STAR SQUIRES DOSON M Ot R06.00 DYSPNEA, UNSPECIFIED 01/24/2017 LALITHA SQUIRES DO M Ot J44.9 CHRONIC OBSTRUCTIVE PULMONARY DISEASE, U 01/24/2017 LALITHA SQUIRES DO M Ot J45.909 UNSPECIFIED ASTHMA, UNCOMPLICATED 01/24/2017 STAR SQUIRES DOSON M Ot R05 COUGH 01/24/2017 STAR SQUIRES DOSON M Ot R06.00 DYSPNEA, UNSPECIFIED 02/22/2017 LALITHA SQUIRES DO M Ot J44.9 CHRONIC OBSTRUCTIVE PULMONARY DISEASE, U 02/22/2017 LALITHA SQUIRES DO M Ot J45.909 UNSPECIFIED ASTHMA, UNCOMPLICATED 02/22/2017 STAR SQUIRES DOSON M Ot R05 COUGH 02/22/2017 STAR SQUIRES DOSON M Ot R06.00 DYSPNEA, UNSPECIFIED 02/22/2017 LALITHA SQUIRES DO M Ot J44.9 CHRONIC OBSTRUCTIVE PULMONARY DISEASE, U 02/22/2017 STAR SQUIRES DOSON M Ot J45.909 UNSPECIFIED ASTHMA, UNCOMPLICATED 02/22/2017 STAR SQUIRES DOSON M Ot R05 COUGH 02/22/2017 STAR SQUIRES DOSON M Ot R06.00 DYSPNEA, UNSPECIFIED 02/25/2017 STAR SQUIRES DOSON M Ot J44.9 CHRONIC OBSTRUCTIVE PULMONARY DISEASE, U 02/25/2017 STAR SQUIRES DOSON M Ot J45.909 UNSPECIFIED ASTHMA, UNCOMPLICATED 02/25/2017 STAR SQUIRES DOSON M Ot R05 COUGH 02/25/2017 LALITHA SQUIRES DO Ot R06.00 DYSPNEA, UNSPECIFIED 03/29/2017 LALITHA SQUIRES DO M Ot J44.9 CHRONIC OBSTRUCTIVE PULMONARY DISEASE, U 03/29/2017 LALITHA SQUIRES DO M Ot J45.909 UNSPECIFIED ASTHMA, UNCOMPLICATED 03/29/2017 TAVIA DOLALITHA M Ot R05 COUGH 03/29/2017 LALITHA SQUIRES DO M Ot R06.00 DYSPNEA, UNSPECIFIED 03/29/2017 LALITHA SQUIRES DO Ot J44.9 CHRONIC OBSTRUCTIVE PULMONARY DISEASE, U 03/29/2017 LALITHA SQUIRES DO M Ot J45.909 UNSPECIFIED ASTHMA, UNCOMPLICATED 03/29/2017 STAR SQUIRES DOSON M Ot R05 COUGH 03/29/2017 LALITHA SQUIRES DO M Ot R06.00 DYSPNEA, UNSPECIFIED 04/26/2017 LALITHA SQUIRES DO M Ot J44.9 CHRONIC OBSTRUCTIVE PULMONARY DISEASE, U 04/26/2017 LALITHA SQUIRES DO M Ot J45.909 UNSPECIFIED ASTHMA, UNCOMPLICATED 04/26/2017 LALITHA SQUIRES DO M Ot R05 COUGH 04/26/2017 LALITHA SQUIRES DO M Ot R06.00 DYSPNEA, UNSPECIFIED 04/26/2017 LALITHA SQUIRES DO M Ot J44.9 CHRONIC OBSTRUCTIVE PULMONARY DISEASE, U 04/26/2017 LALITHA SQUIRES DO M Ot J45.909 UNSPECIFIED ASTHMA, UNCOMPLICATED 04/26/2017 LALITHA SQUIRES DO M Ot R05 COUGH 04/26/2017 LALITHA SQUIRES DO M Ot R06.00 DYSPNEA, UNSPECIFIED 05/10/2017 LALITHA SQUIRES DO M Ot J44.9 CHRONIC OBSTRUCTIVE PULMONARY DISEASE, U 05/10/2017 STAR SQUIRES DOSON M Ot J45.909 UNSPECIFIED ASTHMA, UNCOMPLICATED 05/10/2017 TAVIA DOSTARLALITHA M Ot R05 COUGH 05/10/2017 STAR SQUIRES DOSON M Ot R06.00 DYSPNEA, UNSPECIFIED 05/23/2017 LALITHA SQUIRES DO M Ot J44.9 CHRONIC OBSTRUCTIVE PULMONARY DISEASE, U 05/23/2017 LALITHA SQUIRES DO M Ot J45.909 UNSPECIFIED ASTHMA, UNCOMPLICATED 05/23/2017 STAR SQUIRES DOSON M Ot R05 COUGH 05/23/2017 STAR SQUIRES DOSON M Ot R06.00 DYSPNEA, UNSPECIFIED 05/27/2017 TAVIA DOSTARLALITHA M Ot J44.9 CHRONIC OBSTRUCTIVE PULMONARY DISEASE, U 05/27/2017 TAVIA DOSTARLALITHA M Ot J45.909 UNSPECIFIED ASTHMA, UNCOMPLICATED 05/27/2017 TAVIA DOSTARLALITHA M Ot R05 COUGH 05/27/2017 TAVIA DOSTARLALITHA M Ot R06.00 DYSPNEA, UNSPECIFIED 05/27/2017 LALITHA SQUIRES DO M Ot J44.9 CHRONIC OBSTRUCTIVE PULMONARY DISEASE, U 05/27/2017 TAVIA DOSTARLALITHA M Ot J45.909 UNSPECIFIED ASTHMA, UNCOMPLICATED 05/27/2017 TAVIA DOSTARLALITHA M Ot R05 COUGH 05/27/2017 STAR SQUIRES DOSON M Ot R06.00 DYSPNEA, UNSPECIFIED 05/27/2017 LALITHA SQUIRES DO M Ot J44.9 CHRONIC OBSTRUCTIVE PULMONARY DISEASE, U 05/27/2017 STAR SQUIRES DOSON M Ot J45.909 UNSPECIFIED ASTHMA, UNCOMPLICATED 05/27/2017 STAR SQUIRES DOSON M Ot R05 COUGH 05/27/2017 TAVIA DOSTARLALITHA M Ot R06.00 DYSPNEA, UNSPECIFIED 05/28/2017 TAVIA DOSTARLALITHA M Ot J44.9 CHRONIC OBSTRUCTIVE PULMONARY DISEASE, U 05/28/2017 STAR SQUIRES DOSON M Ot J45.909 UNSPECIFIED ASTHMA, UNCOMPLICATED 05/28/2017 TAVIA DOSTARLALITHA M Ot R05 COUGH 05/28/2017 TAVIA DOSTARALLITHA M Ot R06.00 DYSPNEA, UNSPECIFIED 06/05/2017 LALITHA SQUIRES DO M Ot J44.9 CHRONIC OBSTRUCTIVE PULMONARY DISEASE, U 06/05/2017 TAVIA DOSTARLALITHA M Ot J45.909 UNSPECIFIED ASTHMA, UNCOMPLICATED 06/05/2017 TAVIA DOSTARLALITHA M Ot R05 COUGH 06/05/2017 TAVIA DOSTARLALITHA M Ot R06.00 DYSPNEA, UNSPECIFIED 06/24/2017 STAR SQUIRES DOSON M Ot J44.9 CHRONIC OBSTRUCTIVE PULMONARY DISEASE, U 06/24/2017 TAVIA DOSTARLALIHTA M Ot J45.909 UNSPECIFIED ASTHMA, UNCOMPLICATED 06/24/2017 TAVIASTAR MARADIAGA DOSON M Ot R05 COUGH 06/24/2017 STAR SQUIRES DOSON M Ot R06.00 DYSPNEA, UNSPECIFIED 06/24/2017 STAR SQUIRES DOSON M Ot J44.9 CHRONIC OBSTRUCTIVE PULMONARY DISEASE, U 06/24/2017 STAR SQUIRES DOSON M Ot J45.909 UNSPECIFIED ASTHMA, UNCOMPLICATED 06/24/2017 TAVIA DOSTARLALITHA M Ot R05 COUGH 06/24/2017 TAVIA DOSTARLALITHA M Ot R06.00 DYSPNEA, UNSPECIFIED 07/22/2017 STAR SQUIRES DOSON M Ot J44.9 CHRONIC OBSTRUCTIVE PULMONARY DISEASE, U 07/22/2017 TAVIA DOSTARLALITHA M Ot J45.909 UNSPECIFIED ASTHMA, UNCOMPLICATED 07/22/2017 TAVIA DOSTARLALITHA M Ot R05 COUGH 07/22/2017 TAVIA DOSTARLALITHA M Ot R06.00 DYSPNEA, UNSPECIFIED 07/22/2017 STAR SQUIRES DOSON M Ot J44.9 CHRONIC OBSTRUCTIVE PULMONARY DISEASE, U 07/22/2017 TAVIA DOSTARLALITHA M Ot J45.909 UNSPECIFIED ASTHMA, UNCOMPLICATED 07/22/2017 TAVIA DOSTARLALITHA M Ot R05 COUGH 07/22/2017 TAVIA DOSTARLALITHA M Ot R06.00 DYSPNEA, UNSPECIFIED 08/03/2017 TAVIA DOSTARLALITHA M Ot J44.9 CHRONIC OBSTRUCTIVE PULMONARY DISEASE, U 08/03/2017 TAVIA DOSTARLALITHA M Ot J45.909 UNSPECIFIED ASTHMA, UNCOMPLICATED 08/03/2017 TAVIA DOSTARLALITHA M Ot R05 COUGH 08/03/2017 TAVIA DOSATRLALITHA M Ot R06.00 DYSPNEA, UNSPECIFIED 08/09/2017 STAR SQUIRES DOSON M Ot J44.9 CHRONIC OBSTRUCTIVE PULMONARY DISEASE, U 08/09/2017 TAVIA DOSTARLALITHA M Ot J45.909 UNSPECIFIED ASTHMA, UNCOMPLICATED 08/09/2017 TAVIA DO LALITHA M Ot R05 COUGH 08/09/2017 TAVIA DOSATRLALITHA M Ot R06.00 DYSPNEA, UNSPECIFIED 08/19/2017 TAVIA DOSTARLALITHA M Ot J44.9 CHRONIC OBSTRUCTIVE PULMONARY DISEASE, U 08/19/2017 TAVIA DOSTARLALITHA M Ot J45.909 UNSPECIFIED ASTHMA, UNCOMPLICATED 08/19/2017 TAVIA DO LALITHA M Ot R05 COUGH 08/19/2017 TAVIA DOSTARLALITHA M Ot R06.00 DYSPNEA, UNSPECIFIED 08/19/2017 TAVIA DOSTARLALITHA M Ot J44.9 CHRONIC OBSTRUCTIVE PULMONARY DISEASE, U 08/19/2017 TAVIA DOSTARLALITHA M Ot J45.909 UNSPECIFIED ASTHMA, UNCOMPLICATED 08/19/2017 TAVIA DO, LALITHA M Ot R05 COUGH 08/19/2017 TAVIA DOSTARLALITHA M Ot R06.00 DYSPNEA, UNSPECIFIED 08/19/2017 TAVIA DOSTARLALITHA M Ot J44.9 CHRONIC OBSTRUCTIVE PULMONARY DISEASE, U 08/19/2017 TAVIA DO, LALITHA M Ot J45.909 UNSPECIFIED ASTHMA, UNCOMPLICATED 08/19/2017 TAVIA DO, LALITHA M Ot R05 COUGH 08/19/2017 TAVIA DO, LALITHA M Ot R06.00 DYSPNEA, UNSPECIFIED 08/19/2017 TAVIA DOSTARLALITHA M Ot J44.9 CHRONIC OBSTRUCTIVE PULMONARY DISEASE, U 08/19/2017 TAVIA DOSTARLALITHA M Ot J45.909 UNSPECIFIED ASTHMA, UNCOMPLICATED 08/19/2017 TAVIA DO, LALITHA M Ot R05 COUGH 08/19/2017 TAVIA DO, LALITHA M Ot R06.00 DYSPNEA, UNSPECIFIED 08/20/2017 TAVIA DOSTARLALITHA M Ot J44.9 CHRONIC OBSTRUCTIVE PULMONARY DISEASE, U 08/20/2017 TAVIA DOSTARLALITHA M Ot J45.909 UNSPECIFIED ASTHMA, UNCOMPLICATED 08/20/2017 TAVIA DO, LALITHA M Ot R05 COUGH 08/20/2017 TAVIA DOSTARLALITHA M Ot R06.00 DYSPNEA, UNSPECIFIED 09/17/2017 TAVIA DOSTARLALITHA M Ot J44.9 CHRONIC OBSTRUCTIVE PULMONARY DISEASE, U 09/17/2017 TAVIA DOSTARLALITHA M Ot J45.909 UNSPECIFIED ASTHMA, UNCOMPLICATED 09/17/2017 TAVIA DO, LALITHA M Ot R05 COUGH 09/17/2017 TAVIA DOSTARLALITHA M Ot R06.00 DYSPNEA, UNSPECIFIED 09/17/2017 TAVIA DOSTARLALITHA M Ot J44.9 CHRONIC OBSTRUCTIVE PULMONARY DISEASE, U 09/17/2017 TAVIA DOSTARLALITHA M Ot J45.909 UNSPECIFIED ASTHMA, UNCOMPLICATED 09/17/2017 TAVIA DOSTARLALITHA M Ot R05 COUGH 09/17/2017 TAVIA DOSTARLALITHA M Ot R06.00 DYSPNEA, UNSPECIFIED 09/17/2017 LALITHA SQUIRES DO Ot J44.9 CHRONIC OBSTRUCTIVE PULMONARY DISEASE, U 09/17/2017 LALITHA SQUIRES DO Ot J45.909 UNSPECIFIED ASTHMA, UNCOMPLICATED 09/17/2017 LALITHA SQUIRES DO Ot R05 COUGH 09/17/2017 LALITHA SQUIRES DO Ot R06.00 DYSPNEA, UNSPECIFIED 10/15/2017 STAR SQUIRES DOSON Willy Ot J44.9 CHRONIC OBSTRUCTIVE PULMONARY DISEASE, U 10/15/2017 LALITHA SQUIRES DO Ot J45.909 UNSPECIFIED ASTHMA, UNCOMPLICATED 10/15/2017 LALITHA SQUIRES DO M Ot R05 COUGH 10/15/2017 LALITHA SQUIRES DO Ot R06.00 DYSPNEA, UNSPECIFIED 10/15/2017 LALITHA SQUIRES DO Ot J44.9 CHRONIC OBSTRUCTIVE PULMONARY DISEASE, U 10/15/2017 LALITHA SQUIRES DO M Ot J45.909 UNSPECIFIED ASTHMA, UNCOMPLICATED 10/15/2017 TAVIA LANGLEY LALITHA Aguilera Ot R05 COUGH 10/15/2017 LALITHA SQUIRES DO Ot R06.00 DYSPNEA, UNSPECIFIED Procedures Code Description [place] [address] ROUTINE VENIPUNCTURE 10/26/2013 83864 XRAY CHEST 2 VIEW 10/26/2013 J3301 KENALOG INJ, PER 10 MG 10/26/2013 51369 LIPID PANEL 10/26/2013 51184 CBC 10/26/2013 2538702 GFR CALC (RESULT ONLY) 10/26/2013 03262 CMP 10/26/2013 26083 UA LONG DIP 06/14/2014 09935 MAMMOGRAM, SCREENING 08/18/2014 55861 XRAY CHEST 2 VIEW 02/17/2015 Results Test Result Range Influenza virus A and B antigen detection - 09/24/16 12:47 FLU RESULT NEGATIVE FOR INFLUENZA A AND B ANTIGENS BY IA NRG Encounters ACCT No. Visit Date/Time Discharge Status Pt. Type Provider Facility Loc./Unit Complaint [id number] 02/11/2015 08:47:00 02/11/2015 23:59:59 CLS Outpatient DI SHUKLA DO [id number] 12/07/2014 11:27:00 12/07/2014 23:59:59 CLS Outpatient DI SHUKLA DO [id number] 11/16/2014 10:08:00 11/16/2014 23:59:59 CLS Outpatient SHUKLA DODI [id number] 08/18/2014 10:57:00 08/18/2014 23:59:59 CLS Outpatient THEO GRIER APRN [id number] 07/29/2014 08:22:00 07/29/2014 23:59:59 CLS Outpatient HSUKLA DODI [id number] 06/24/2014 11:38:00 06/24/2014 23:59:59 CLS Outpatient SHUKLA DODI [id number] 06/14/2014 12:13:00 06/14/2014 23:59:59 CLS Outpatient SHUKLA DODI [id number] 03/24/2014 08:25:00 03/24/2014 23:59:59 CLS Outpatient SHUKLA DODI [id number] 12/10/2013 15:55:00 12/10/2013 23:59:59 CLS Outpatient TATETARIQ CHRISTINE APRN [id number] 11/12/2013 13:29:00 11/12/2013 23:59:59 CLS Outpatient SHUKLA DODI [id number] 10/26/2013 11:48:00 10/26/2013 23:59:59 CLS Outpatient SHUKLA DODI [id number] 10/23/2013 00:00:00 10/23/2013 23:59:59 CLS Outpatient TATETARIQ CHRISTINE APRN [id number] 09/23/2013 09:40:00 09/23/2013 23:59:59 CLS Outpatient SHUKLA DODI [id number] 08/19/2013 09:31:00 08/19/2013 23:59:59 CLS Outpatient SHUKLA DODI [id number] 12/29/2012 10:08:00 12/29/2012 23:59:59 CLS Outpatient [id number] 11/07/2012 09:34:00 11/07/2012 23:59:59 CLS Outpatient [id number] 10/08/2012 08:58:00 10/08/2012 23:59:59 CLS Outpatient TARIQ TATE APRN [id number] 09/08/2012 09:51:00 09/08/2012 23:59:59 CLS Outpatient TARIQ TATE APRN [id number] 07/21/2013 08:46:00 Document Registration [id number] 07/07/2013 08:45:00 Document Registration [id number] 06/05/2013 00:00:00 Document Registration [id number] 04/15/2013 10:45:00 Document Registration [id number] 03/13/2013 09:40:00 Document Registration [id number] 02/19/2013 10:11:00 Document Registration [id number] 10/15/2017 12:05:00 10/15/2017 23:59:59 CLS Outpatient LALITHA SQUIRES DO Via [facility] ASHTMA,COPD,ALLERGIC RHINITIS [id number] 07/22/2017 11:22:00 08/03/2017 00:01:00 DIS Outpatient LALITHA SQUIRES DO [facility] ASHTMA,COPD,ALLERGIC RHINITIS [id number] 04/26/2017 10:53:00 05/23/2017 00:01:00 DIS Outpatient LALITHA SQUIRES DO [facility] ASHA,COPD,ALLERGIC RHINITIS [id number] 01/22/2017 13:47:00 01/24/2017 00:01:00 [id number] 12/29/2016 13:52:00 12/29/2016 14:56:00 DIS Emergency NILA LEE APRN [facility] ER L HIP AND BACK PAIN [id number] 09/28/2016 11:08:00 10/02/2016 00:01:00 DIS [facility] [id number] 09/24/2016 11:34:00 09/24/2016 14:09:00 DIS Emergency OBDULIO FOSTER MD [facility] ER COUGH/CHEST CONGESTION [id number] 09/04/2016 13:47:00 09/04/2016 23:59:59 CLS Outpatient MEGANFFEYVETTE BROOKS [facility] RAD SCREENING [id number] 06/19/2016 19:03:00 06/19/2016 21:03:00 DIS Emergency SITA CLARKE [facility] ER R KNEE PAIN [id number] 06/06/2016 11:50:00 06/12/2016 00:01:00 DIS Outpatient LALITHA SQUIRES DO [facility] ASHTMA,COPD,ALLERGIC RHINITIS [id number] 02/15/2016 10:42:00 02/21/2016 00:01:00 DIS Outpatient LALITHA SQUIRES DO [facility] ASHTMA,COPD,ALLERGIC RHINITIS [id number] 01/28/2016 00:20:00 01/28/2016 02:26:00 DIS Emergency KESHAWN DO KERVIN Romero [facility] ER VOMITING [id number] 10/26/2015 12:54:00 10/26/2015 23:59:59 CLS Outpatient LALITHA SQUIRES DO [facility] ASHTMA,COPD,ALLERGIC RHINITIS [id number] 08/24/2015 10:43:00 08/24/2015 23:59:59 CLS Outpatient THEO GRIER APRN [facility] RAD SCREENING [id number] 08/08/2015 19:29:00 08/08/2015 22:16:00 DIS Emergency LUZ GOSS MD [facility] ER R SHOULDER PAIN [id number] 06/17/2015 10:57:00 06/17/2015 11:07:00 DIS Outpatient LALITHA SQUIRES DO [facility] SLEEP EDS, SNORING, GASPING DURING SLEEP [id number] 06/06/2015 14:10:00 06/06/2015 23:59:59 CLS Outpatient LALITHA SQUIRES DO [facility] RT COPD ASTHMA OBESITY [id number] 05/24/2015 15:10:00 05/24/2015 23:59:59 CLS Outpatient LALITHA SQUIRES DO [facility] LAB COPD,ASTHMA,OBESITY [id number] 05/07/2015 18:53:00 05/07/2015 19:25:00 DIS Emergency 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 Via [facility] ER DOG BITES INFECTED [id number] 05/02/2015 13:43:00 05/02/2015 15:21:00 DIS Emergency 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 Via [facility] ER MULTIPLE DOG BITES [id number] 04/17/2015 18:59:00 04/17/2015 20:13:00 DIS Emergency 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 Via [facility] ER COUGH;SOA [id number] 04/01/2015 13:52:00 04/01/2015 23:59:59 CLS Outpatient KEON BELLO MD (DDU) [facility] RAD [id number] 03/21/2015 08:59:00 03/21/2015 23:59:59 CLS Outpatient TARIQ TATE CFNP [facility] RAD COUGH [id number] 02/16/2015 12:16:00 02/16/2015 23:59:59 CLS Outpatient TARIQ TATE CFNP [facility] RAD COPD W/PERSISTENT COUGH [id number] 02/03/2015 15:02:00 02/03/2015 17:21:00 DIS Emergency 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 Via [facility] ER FALL, BACK/TAILBONE PAIN [id number] 08/23/2014 11:24:00 08/23/2014 23:59:59 CLS Outpatient THEO GRIER LABORER [employer]ING [facility] RAD SCREENING [id number] 07/28/2014 20:35:00 07/28/2014 23:27:00 DIS Emergency SITA CLARKE [facility] ER HEADACHE [id number] 06/08/2014 19:24:00 06/08/2014 20:38:00 DIS Emergency 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 [facility] ER L SIDE/BACK PAIN [id number] 08/17/2013 09:03:00 08/17/2013 23:59:59 CLS Outpatient CANDIE HERNANDEZ [facility] RAD ROUTINE [id number] 08/24/2015 10:43:00 Document Registration [id number] 12/26/2014 12:34:00 Document Registration [id number] 09/17/2014 11:01:00 Document Registration [id number] 09/17/2014 11:01:00 Document Registration
--- NOTE | 2017-10-20 19:42 | Diagnostic Imaging Report ---
INDICATION: Mid humeral pain, nontraumatic FINDINGS: No fracture, dislocation, bony erosion or abnormal periosteal reaction. No soft tissue gas or foreign body. IMPRESSION: Negative. Dictated by: Dictated on workstation # [id number]
--- NOTE | 2017-10-20 19:45 | Diagnostic Imaging Report ---
INDICATION: Woke with pain, no known injury. FINDINGS: There is AC joint and glenohumeral osteoarthritis relatively mild. No fracture or abnormal soft tissue calcifications. No loose body. No dislocation. IMPRESSION: No acute appearing abnormality Dictated by: Dictated on workstation # [id number]
--- NOTE | 2017-10-20 19:50 | ED Upper Extremity ---
General Chief Complaint: Upper Extremity Stated Complaint: R SHOULDER/ARM PAIN Nursing Triage Note: right mid humerus pain, no injury Nursing Sepsis Screen: No Definite Risk Source: patient History of Present Illness Time seen by provider: 19:05 Initial Comments PT STATES SHE WOKE UP WITH RIGHT UPPER ARM PAIN TODAY--PAIN FROM SHOULDER TO JUST ABOVE ELBOW STATES SHE WAS FINE WHEN SHE WENT TO BED LAST NIGHT NO KNOWN INJURY NO PARESTHESIAS OR MOTOR DEFICITS C/O MUCH PAIN WITH ANY MOVEMENT, AND THIS EVENING SHE HAD A POP AND SHARP PAIN IN HER SHOULDER AREA WHEN SHE MOVED IT YEARS AGO, SHE HAD PROBLEMS WITH THIS SHOULDER, BUT NOT FOR A LONG TIME PT IS RIGHT HANDED HAS NOT TAKEN ANYTHING FOR PAIN PCP: DOLORES TATE, [facility] Allergies and Home Medications Allergies Coded Allergies: Sulfa (Sulfonamide Antibiotics) (Unverified Allergy, Unknown, 06/08/14) Home Medications Albuterol 8.5 Gm Hfa.aer.ad, 1 PUFF IH Q4H PRN for SHORTNESS OF BREATH, ( Reported) 1 PUFFS Albuterol Sulfate 2.5 Mg/3 Ml Vial.neb, 2.5 MG IH Q4H PRN for SHORTNESS OF BREATH, #30 Prescribed by: OBDULIO BAUGH on 09/24/16 1352 Azelastine Hcl 137 Mcg [place].pump, 2 SPRAYS NS BID, (Reported) Cetirizine Hcl 10 Mg Capsule, 10 MG PO DAILY, (Reported) Chlorzoxazone 500 Mg Tablet, 500 MG PO TID, (Reported) Diphenhydramine Hcl 25 Mg Tablet, 1 EACH PO HS, (Reported) Fluticasone Propionate 16 Gm [place].susp, 16 GM NS BID, (Reported) Fluticasone/Salmeterol 1 Each Disk.w.dev, 0 IH BID, (Reported) 1 PUFF Gabapentin 300 Mg Capsule, 300 MG PO DAILY, (Reported) Ibuprofen 800 Mg Tablet, 800 MG PO Q8H PRN for PAIN, (Reported) Montelukast Sodium 10 Mg Tablet, 1 TAB PO DAILY, #30 (Reported) Omalizumab 150 Mg Ana, 150 MG SQ UD, (Reported) Omeprazole 20 Mg Capsule.dr, 40 MG PO BID, (Reported) Tiotropium [facility] 1 Inh Aerp, 1 INH IH DAILY, (Reported) Tramadol HCl 50 Mg Tablet, 50 MG PO Q4H PRN for PAIN, #14 Ref 0 Prescribed by: SITA VERDUZCO on 06/19/162055 Constitutional: no symptoms reported Respiratory: no symptoms reported Cardiovascular: no symptoms reported Gastrointestinal: no symptoms reported Musculoskeletal: see HPI Skin: no symptoms reported Psychiatric/Neurological: No Symptoms Reported Past Otathrs-Wkqyan-Jathro Hx Patient Social History Alcohol Use: Denies Use Recreational Drug Use: No Smoking Status: Never a Smoker 2nd Hand Smoke Exposure: No Recent Foreign Travel: No Contact w/Someone Who Travel: No Recent Infectious Disease Expo: No Recent Hopitalizations: No Immunizations Up To Date Tetanus Booster (TDap): Unknown Date of Influenza Vaccine: Aug 06, 2016 Seasonal Allergies Seasonal Allergies: Yes Surgeries History of Surgeries: Yes (HAITAL HERNIA REPAIR, CARPAL TUNNEL) Surgeries: Abdominal, Appendectomy, Gallbladder, Hysterectomy, Orthopedic Respiratory History of Respiratory Disorde: Yes Respiratory Disorders: Asthma, COPD Currently Using CPAP: No Currently Using BIPAP: No Cardiovascular History of Cardiac Disorders: No Neurological History of Neurological Disord: No 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 System : No Hx 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 Disorders: No 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, 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 Genitourinary History of Genitourinary Disor: No Gastrointestinal History of Gastrointestinal Di: Yes Gastrointestinal Disorders: Gastroesophageal Reflux Musculoskeletal History of Musculoskeletal Dis: Yes (OSTEOARTHRITIS) Musculoskeletal Disorders: Arthritis Endocrine History of Endocrine Disorders: No HEENT History of HEENT Disorders: No Loss of Vision: Bilateral Hearing Impairment: Denies Cancer History of Cancer: No Psychosocial History of Psychiatric Problem: Yes Behavioral Health Disorders: Depression Integumentary History of Skin or Integumenta: No Blood Transfusions History of Blood Disorders: No Adverse Reaction to a Blood Tr: No Physical Exam Vital Signs Vital Sign - Last 12Hours 10/20/17 19:06 Temp 99.0 Pulse 84 Resp 16 B/P (MAP) 117/77 (90) Pulse Ox 96 O2 Delivery Room Air Capillary Refill : Less Than 3 Seconds General Appearance: WD/WN, no apparent distress Neck: non-tender, full range of motion, supple, normal inspection Cardiovascular: normal peripheral pulses, regular rate, rhythm, no murmur Respiratory: chest non-tender, normal breath sounds, no respiratory distress, no accessory muscle use Back: normal inspection, no CVA tenderness, no vertebral tenderness Shoulder: no evidence of injury, bone tenderness, limited ROM, pain, soft tissue tenderness Elbow/Forearm: normal inspection Wrist: Yes normal inspection Hand: normal inspection Neurologic/Tendon: normal sensation, normal motor functions, normal tendon functions Neurologic/Psychiatric: band sawyer II-XII nml as tested, no motor/sensory deficits, alert, normal mood/affect, oriented x 3 Skin: normal color, warm/dry, No rash Splinting and Joint Reduction : Arm Sling: [place] Progress/Results/Core Measures Results/Orders My Orders Orders - KERVIN LIAO DO Shoulder, Right, 3 Views (10/20/17 19:13) Humerus, Right, 2 Views (10/20/17 19:13) Sling (10/20/17 19:50) Ketorolac Injection (Toradol Injection) (10/20/17 20:00) Orphenadrine Injection (Norflex Injectio (10/20/17 20:00) Ketorolac Injection (Toradol Injection) (10/20/17 19:57) Orphenadrine Injection (Norflex Injectio (10/20/17 19:57) Medications Given in ED Current Medications Medications Dose Ordered Sig/Basilio Route Start Time Stop Time Status Last Admin Dose Admin Ketorolac Tromethamine 60 mg ONCE ONCE IM 10/20/17 20:00 10/20/17 20:04 DC 10/20/17 20:00 60 MG Orphenadrine Citrate 60 mg ONCE ONCE IM 10/20/17 20:00 10/20/17 20:04 DC 10/20/17 20:00 60 MG Vital Signs/I&O Vital Sign - Last 12Hours 10/20/17 10/20/17 10/20/17 19:06 20:00 20:05 Temp 99.0 99.0 98.8 Pulse 84 80 Resp 16 16 B/P (MAP) 117/77 (90) Pulse Ox 96 97 O2 Delivery Room Air Room Air Blood Pressure Mean: 90 Diagnostic Imaging Comments XRAYS RIGHT SHOULDER AND HUMERUS--NO ACUTE PROCESS, PER RADIOLOGIST REPORTS @ 1947 Reviewed: Reviewed by Me Departure Impression Impression: Primary Impression: Pain in right upper arm Disposition: 01 HOME, SELF-CARE Condition: Stable Departure-Patient Inst. Referrals: [facility] [place] (PCP/Family) Primary Care Physician Patient Instructions: How to Use a Shoulder Sling, Muscle Strain (DC) Add. Discharge Instructions: ALTERNATE ICE AND HEAT TO SORE AREA AT 20 MINUTE INTERVALS WEAR SLING AT ALL TIMES TAKE YOUR IBUPROFEN AND TRAMADOL EVERY 6 HOURS NEEDED FOR PAIN FOLLOW UP WITH YOUR DR THIS WEEK FOR FURTHER CARE All discharge instructions reviewed with patient and/or family. Voiced understanding. KERVIN LIAO DO Oct 20, 2017 19:50
[2017-10-20] MEDS ORDERED: ORPHENADRINE 60 MG/2 ML (NORFLEX) AMP ONE (19:57)
[2017-10-20] MEDS ORDERED: KETOROLAC 60 MG/2 ML VIAL IM ONE ×2 (19:57→20:00)
[2017-10-20] MEDS ORDERED: ORPHENADRINE 60 MG/2 ML (NORFLEX) AMP IM ONE (20:00)
[2017-10-20 20:05] VITALS: BP 115/71
== END 2017-10-20 20:04 | disposition home or self-care (01) ==
LOC: EDUNIT# 18:34 → ER 18:35
DX: M79.621 Pain in right upper arm (principal); F32.9 Major depressive disorder, single episode, unspecified; M19.90 Unspecified osteoarthritis, unspecified site; K21.9 Gastro-esophageal reflux disease without esophagitis; J44.9 Chronic obstructive pulmonary disease, unspecified; Z90.710 Acquired absence of both cervix and uterus; Z90.49 Acquired absence of other specified parts of digestive tract; Z98.890 Other specified postprocedural states
CPT/HCPCS: 73030; 73060; 99284

== ENCOUNTER 2017-11-12 13:18 | Outpatient (RCR) | payer OTHER ==
[2017-08-19 13:48] VITALS: BP 123/76
[2017-08-19] MEDS: OMALIZUMAB 150 MG (XOLAIR) VIAL FREE STOCK SQ SCH (13:49)
[2017-09-17 13:15] VITALS: BP 117/74
[2017-09-17] MEDS: OMALIZUMAB 150 MG (XOLAIR) VIAL FREE STOCK SQ SCH (13:56)
[2017-10-15 12:11] VITALS: BP 114/79
[2017-10-15] MEDS: OMALIZUMAB 150 MG (XOLAIR) VIAL FREE STOCK SQ SCH (12:31)
[~2017-11-12] VITALS: Ht 157.5 cm; Wt 66.8 kg
[~2017-11-12 13:18] MED LIST changes: +ACHD5005 PO; -HYDR-3812 PO
[2017-11-12] MEDS: OMALIZUMAB 150 MG (XOLAIR) VIAL FREE STOCK SQ SCH (14:00)
[2017-11-12 14:05] VITALS: BP 121/74
== END 2017-11-17 | disposition home or self-care (01) ==
LOC: SDC 13:18
PROVIDERS: ATTEND Internal Medicine Critical Care Medicine
DX: J45.909 Unspecified asthma, uncomplicated (principal); J44.9 Chronic obstructive pulmonary disease, unspecified; R05 Cough; R06.00 Dyspnea, unspecified
CPT/HCPCS: 96372

== ENCOUNTER 2018-03-05 12:07 | Outpatient (RCR) | payer OTHER ==
[2017-12-11 12:13] VITALS: BP 118/72
[2017-12-11] MEDS: OMALIZUMAB 150 MG (XOLAIR) VIAL FREE STOCK SQ SCH (13:09)
[2018-01-08 14:10] VITALS: BP 114/74
[2018-01-08] MEDS: OMALIZUMAB 150 MG (XOLAIR) VIAL FREE STOCK SQ SCH (14:14)
[2018-02-05 09:38] VITALS: BP 117/77
[2018-02-05] MEDS: OMALIZUMAB 150 MG (XOLAIR) VIAL FREE STOCK SQ SCH (09:38)
[~2018-03-05] VITALS: Ht 157.5 cm; Wt 66.8 kg
[2018-03-05] MEDS: OMALIZUMAB 150 MG (XOLAIR) VIAL FREE STOCK SQ SCH (12:50)
[2018-03-05 12:55] VITALS: BP 124/78
== END 2018-03-11 | disposition home or self-care (01) ==
LOC: SDC 12:07
PROVIDERS: ATTEND Internal Medicine Critical Care Medicine
DX: J45.909 Unspecified asthma, uncomplicated (principal); J44.9 Chronic obstructive pulmonary disease, unspecified; R05 Cough; R06.00 Dyspnea, unspecified
CPT/HCPCS: 96372

== ENCOUNTER 2018-07-31 12:33 | Outpatient (RCR) | payer OTHER ==
[~2018-07-31] VITALS: Ht 157.5 cm; Wt 66.8 kg
[2018-07-31] MEDS ORDERED: OMALIZUMAB 150 MG (XOLAIR) VIAL FREE STOCK SQ SCH (12:41)
[2018-07-31 12:45] VITALS: BP 123/79
== END 2018-08-03 | disposition home or self-care (01) ==
LOC: SDC 12:33
PROVIDERS: ATTEND Internal Medicine Critical Care Medicine
DX: J45.909 Unspecified asthma, uncomplicated (principal); R05 Cough; R06.00 Dyspnea, unspecified
CPT/HCPCS: 96372

== ENCOUNTER → 2018-09-02 | Outpatient (CLI) | payer OTHER ==
--- NOTE | 2018-09-02 12:51 | Diagnostic Imaging Report ---
INDICATION: Routine screening. COMPARISON: 09/04/2016 and 10/24/2015. TECHNIQUE: 2D and 3D bilateral screening mammography was performed with CAD. FINDINGS: Both breasts are heterogeneously dense, limiting the sensitivity of mammography. Circumscribed benign-appearing nodules in the outer portions of both breasts appear stable and most consistent with intraparenchymal lymph nodes. The parenchymal pattern is stable. No spiculated mass or malignant appearing microcalcifications are seen. The axillae are unremarkable. IMPRESSION: No mammographic features suspicious for malignancy are identified. ACR BI-RADS Category 2: Benign findings. Result letter will be mailed to the patient. Note: At least 10% of breast cancer is not imaged by mammography. Dictated by: Dictated on workstation # [id number]
== END ==
LOC: RAD 09:26
PROVIDERS: ATTEND Registered Nurse
DX: Z12.31 Encounter for screening mammogram for malignant neoplasm of breast (principal)
CPT/HCPCS: 77067

== ENCOUNTER 2018-09-24 11:37 | Outpatient (RCR) | payer OTHER ==
[2018-08-27 12:10] VITALS: BP 117/69
[~2018-09-24] VITALS: Ht 157.5 cm; Wt 77.1 kg
[~2018-09-24 11:37] MED LIST changes: +OMALIZUMAB SUB-Q 150 MG (XOLAIR) VIAL SQ SCH
[2018-09-24] MEDS ORDERED: OMALIZUMAB 150 MG (XOLAIR) VIAL FREE STOCK SQ SCH (12:00)
[2018-09-24 12:15] VITALS: BP 118/73
== END 2018-11-25 | disposition home or self-care (01) ==
LOC: SDC 11:37
PROVIDERS: ATTEND Internal Medicine Critical Care Medicine
DX: J45.909 Unspecified asthma, uncomplicated (principal); J44.9 Chronic obstructive pulmonary disease, unspecified; R05 Cough; R06.00 Dyspnea, unspecified
CPT/HCPCS: 96372

== ENCOUNTER 2018-11-11 16:38 | Emergency (ER) | payer SELFPAY ==
[~2018-11-11] VITALS: Ht 160 cm; Wt 77.1 kg
[~2018-11-11 16:38] MED LIST changes: -OMALIZUMAB SUB-Q 150 MG (XOLAIR) VIAL SQ SCH
--- OUTSIDE RECORDS SUMMARY | 2018-11-11 16:44 | XMS REPORT ---
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 Name Role Phone TARIQ TATE Unavailable PROBLEMS Type Condition ICD9-CM Code SMC19-QB Code Onset Dates Condition Status SNOMED Code Problem Hip bursitis, left M70.72 Active 65330931 Problem Osteoarthritis of both knees, unspecified osteoarthritis type M17.0 Active 060138469 Problem Psychophysiological insomnia F51.04 Active 368494994 Problem Moderate episode of recurrent major depressive disorder F33.1 Active 785979978 Problem Arthralgia of right temporomandibular joint M26.62 Active 15405991 Problem Other depression F32.8 Active 17257637 Problem Sciatic leg pain M54.30 Active 94360453 Problem Chronic obstructive pulmonary disease, unspecified COPD type J44.9 Active 61032282 ALLERGIES No Information ENCOUNTERS Encounter Location Date Diagnosis [facility] [id number] [place] [address] [id number] Oct, [facility] [address] [id number] Sep, [facility] [id number] [place] [address] [id number] Sep, Psychophysiological insomnia F51.04 [facility] [id number] [place] [address] [id number] Aug, Breast cancer screening Z12.31 [facility] [id number] [place] [address] [id number] Aug, [facility] [id number] [place] [address] 247231- 6173 Aug, [facility] [id number] [place] [address] [id number] Jul, [facility] [id number] [place] [address] [id number] Jul, Chronic obstructive pulmonary disease, unspecified COPD type J44.9 ; Osteoarthritis of both knees, unspecified osteoarthritis type M17.0 ; Moderate episode of recurrent major depressive disorder F33.1 and Sciatic leg pain M54.30 [facility] [address] [id number] [place] [id number] Jun, Moderate episode of recurrent major depressive disorder F33.1 ; Sciatic leg pain M54.30 and Chronic obstructive pulmonary disease, unspecified COPD type J44.9 [facility] [address] [id number] [place] [id number] Jun, [facility] [address] [id number] [place] [address] [id number] May, Sciatic leg pain M54.30 [facility] [address] [id number] [place] [address] [id number] May, Chronic obstructive pulmonary disease, unspecified COPD type J44.9 [facility] [address] [id number] [id number] May, [facility] [address] [id number] [place] [address] [id number] Apr, Moderate episode of recurrent major depressive disorder F33.1 ; Sciatic leg pain M54.30 and Chronic obstructive pulmonary disease, unspecified COPD type J44.9 [facility] [address] [id number] [place] [id number] March, [facility] [address] [id number] [place] [id number] Feb, Sciatic leg pain M54.30 [facility] [address] [id number][place] [id number] Feb, [facility] [address] [id number] [place] [id number] Dec, Moderate episode of recurrent major depressive disorder F33.1 ; Sciatic leg pain M54.30 ; Chronic obstructive pulmonary disease, unspecified COPD type J44.9 and Screening for thyroid disorder Z13.29 [facility] [id number] [place] [id number] Dec, Chronic obstructive pulmonary disease, unspecified COPD type J44.9 [facility] [address] [id number] [place] [id number] Nov, Sciatic leg pain M54.30 [facility] [address] [id number], [place] [id number] Oct, [facility] [address] [id number] [place] [id number] Oct, Acute pain of right shoulder M25.511 [facility] [id number] [place] [address] [id number] Oct, Chronic obstructive pulmonary disease, unspecified COPD type J44.9 [facility] [address] [id number] [place] [id number] Oct, [facility] [address] [id number] [place] [address] [id number] Sep, Chronic obstructive pulmonary disease, unspecified COPD type J44.9 and Sciatic leg pain M54.30 [facility] [address] [id number] [place] [id number] Aug, Moderate episode of recurrent major depressive disorder F33.1 and Chronic obstructive pulmonary disease, unspecified COPD type J44.9 [facility] [address] [id number], [place] [id number] Aug, Moderate episode of recurrent major depressive disorder F33.1 [facility] [address] [id number] [place] [id number] Jul, Other depression F32.8 and Chronic obstructive pulmonary disease, unspecified COPD type J44.9 [facility] [address] [id number] [place] [id number] Jul, Moderate episode of recurrent major depressive disorder F33.1 [facility] [address] [id number], [place] [id number] Jun, [facility] [address] [id number] [place] [id number] Jun, Moderate episode of recurrent major depressive disorder F33.1 [facility] [address] [id number] [place] [id number] Jun, Moderate episode of recurrent major depressive disorder F33.1 [facility] [id number] [place] [id number] Jun, [facility] [id number] [place] [id number] Jun, Sciatic leg pain M54.30 [facility] [id number] [place] [id number] Jun, [facility] [id number] [place] [address] [id number] May, Screening for thyroid disorder Z13.29 and Screening for lipid disorders Z13.220 [facility] [id number] [place] [address] [id number] May, Other depression F32.8 [facility] [address]005[address]100[address] [place] 942129518 Apr, Sciatic leg pain M54.30 [facility] [address]00565100EL [place] [id number] Apr, Screening for lipid disorders Z13.220 ; Screening for thyroid disorder Z13.29 and Chronic obstructive pulmonary disease, unspecified COPD type J44.9 [id number] [place] [id number] Apr, Screening for lipid disorders Z13.220 ; Screening for thyroid disorder Z13.29 and Chronic obstructive pulmonary disease, unspecified COPD type J44.[address] [id number] [place] [id number] Apr, [address] [place] [id number] Apr, Chronic obstructive pulmonary disease, unspecified COPD type J44.9 [facility] [address] [place] [address] [id number] [place] [address] March [address] [address] [facility] [id number] [place] [id number] March, Sciatic leg pain M54.30 and Other depression F32.8 [address]005[address] [place] [id number] March, [facility] [id number] [place] [id number] Jan, Other depression F32.8 and Sciatic leg pain M54.30 [facility] [id number] [place] [address] [id number] Jan, Sciatic leg pain M54.30 [facility] [id number] [place] [address] [id number] Dec, Other depression F32.8 [facility] [address] [id number] [place] [address] [id number] Dec, Chronic obstructive pulmonary disease, unspecified COPD type J44.9 [facility] [address] [id number] [place] [address] [id number] Nov, [facility] [id number] [place] [address] [id number] Oct, Other depression F32.8 and Chronic obstructive pulmonary disease, unspecified COPD type J44.9 [facility] [id number] [place] [address] [id number] Aug, [facility] [id number] [place] [address] [id number] Aug, Other depression F32.8 ; Arthralgia of right temporomandibular joint M26.62 and Encounter for immunization Z23 [facility] [id number] [place] [address] [id number] Aug, Encounter for well woman exam Z01.419 [facility] [id number] [place] [address] [id number] Jul, Other depression F32.8 and Arthralgia of right temporomandibular joint M26.62 [facility] [id number] [place] [id number] Jun, [facility] CECILIA [place]ING[place] [id number] [place] [address] Jun [facility] [address] [id number] [place] [id number] Jun, [facility] [id number] [place] [id number] Jun, Other depression F32.8 and Urinary tract infection without hematuria, site unspecified N39.0 [facility] [id number] [place] [id number] Apr, [facility] [id number] [place] [address] [id number] Apr, Dysuria R30.0 [facility] [address]00565100[place], [place]- [address] March, [facility] [id number] [place] [address] [id number] March, Urinary tract infection, site unspecified N39.0 [facility] [id number] [place] [address] [id number] March, Urinary tract infection, site unspecified N39.0 [facility] [id number] [place] [address] [id number] Feb, [facility] [id number] [place] [address] [id number] Feb, Headache R51 and Ear pain H92.09 [facility] [id number] [place] [id number] Jan, Osteoarthritis of both knees, unspecified osteoarthritis type M17.0 and Hip bursitis, left M70.72 [facility] [id number] [place] [id number] Jan, [facility] [id number] [place] [address] [id number] Dec, Unspecified arthropathy, site unspecified 716.90 and COPD (chronic obstructive pulmonary disease) 496 [facility] [address] [id number] [place] [id number] Dec, [facility] [address] [id number] [place] [address] [id number] Nov, [facility] [id number] [place] [address] [id number] Oct, [facility] [id number] [place] [id number] Sep, [facility] [id number] [place] [id number] Sep, [facility] [address] [facility] [id number] [place] [id number] Aug, [facility]ARCELINA [address] [facility] [id number], [place] [id number] Aug, [facility] [address] [facility] [id number] [place] [id number] Aug, Urinary tract infection N39.0 and Shoulder strain, right, initial encounter S46.911A [facility] [id number] [place] [id number] Aug, Screening breast examination Z12.39 and Encounter for immunization Z23 [address] [address] [id number] [place] [address] [id number] Aug, [facility] [id number] [phone] Aug, [facility] [id number] [place] [address] [id number] Jul, [facility] [id number] [place] [address] [id number] Jun, [place] [id number] [place] [address] [id number] Jun, Allergic rhinitis, cause unspecified 477.9 and Cough 786.2 [facility] [id number] [place] [address] [id number] May, [address] [id number] [place] [address] [id number] May, [facility] [id number] [place] [address] [id number] May, Visit for suture removal V58.32 [facility] [id number] [place] [address] [id number] May, Dog bite 879.8 [facility] [id number] [place] [address] [id number] Apr, Rib pain on right side 786.50 [place] [id number] [place] [address] [id number] Apr, [place] [id number] [place] [id number] Apr, Allergic rhinitis, cause unspecified 477.9 and Cough 786.2 [facility] [id number] [place] [id number] March, [facility] [id number] [place] [id number] March, [facility] [id number] [place] [address] [id number] March, [facility] [id number] [place] [address] [id number] March, [facility] [id number] [place] [address] [id number] March, Cough 786.2 and Shortness of breath 786.05 [facility] [id number] [place] [address] [id number] March, [facility] [id number] [place] [address] [id number] March, Cough 786.2 ; COPD (chronic obstructive pulmonary disease) 496 and Allergic rhinitis, cause unspecified 477.9 [facility] [id number] [place] [address] [id number] Feb, Allergic rhinitis, cause unspecified 477.9 ; Cough 786.2 and COPD ( chronic obstructive pulmonary disease) 496 [facility] [address]00565100[place], [place] [address]- 2546 Feb, [facility] [id number] [place] [address] 66378 2546 Feb, [facility] [id number] [place] [address] 26466 2543 Jan, [facility] [id number] [place] [address] 95863 2546 Jan, [facility] [id number] [place] [address] 52924- 2546 Jan, [facility] [id number] [place] [address] [id number] Jan, [facility] [place] [facility] [address] [facility] [id number], [place] [address]- 65[address] Jan, [facility] [address] [facility] [id number] [place] [id number] Dec, [facility] [place] [facility] [address] [facility] [id number], [place] [address]- 3106 Dec, [facility] [address] [facility] [id number] [place] [id number] Dec, [facility] [place] [facility] [address] [facility] [id number] [address]- 7346 Dec, [facility] [address] [facility] [id number] [place] [id number] Dec, [facility] [place] [facility] [address]00565100[place], [place] [address]- 4266 Dec, [facility] [place] [facility] [address]00565100[place], [place] [address]- 2546 Dec, [facility] [address] [facility] [id number] [place] [id number] Nov, [facility] [place] [facility] [address]00565100[place], [place] [address]- 0436 Nov, [facility] [place] [facility] [address] [id number], [place] [address]- 2755 Nov, [facility] [address] [facility] [id number] [place] [id number] Nov, [facility] [place] [facility] [address] [facility] [id number], [place] [address]- 2546 Nov, [facility] [address] [facility] [id number] [place] [id number] Oct, [facility] [place] [facility] [address] [facility] [id number], [place] [address]- 2546 Oct, [facility] [address] [facility] [id number] [place] [id number] Sep, [facility] [place] [facility] [address] [id number], [place] [address]- 7734 Sep, [facility] [address] [facility] [id number] [place] [id number] Sep, [facility] [place] [facility] [address] [facility] [id number], [place] [address]- 7023 Sep, [facility] [address] [facility] [id number] [place] [id number] Aug, [facility] [place] [facility] [address] [facility] [id number], [place] [address]- 9767 Aug, [facility] [address] [facility] [id number] [place] [id number] Aug, [facility] [place] [facility] [address] [facility] [id number], [place] [address]- 6478 Aug, [facility] [place] [facility] [address] [facility] [id number], [place] [address]- 4976 Jul, [facility] [address] [facility] [id number] [place] [id number] Jul, [facility] [address] [facility] [id number] [place] [id number] Jul, [facility] [address] [facility] [id number] [place] [id number] Jul, [facility] [place] [facility] [address] [facility] [id number], [place] [address]- 0019 Jul, [facility] [place] [facility] [address] [facility] [id number], [place] [address]- 7486 Jul, [facility] [place] [facility] [address] [facility] [id number], [place] [address]- 5239 Jul, [facility] [place] [facility] [address] [facility] [id number], [place] [address]- 5851 Jul, [facility] [address] [facility] [id number] [place] 803779003 Jun, [facility] [place] [facility] [address] [facility] [id number], [place] [address]- 0738 Jun, [facility] [place] [facility] [address] [facility] [id number], [place] [address]- 5683 Jun, [facility] [address] [id number] [place] [id number] Jun, [facility] [place] [facility] [address] [facility] [id number] [place] [address]- 5773 Jun, [facility] [address] [facility] [id number] [place] [id number] Jun, [facility] [place] [facility] [address] [facility] [id number] [place] [address]- 0201 Jun, [facility] [address] [facility] [id number] [place] [id number] Apr, [facility] [place] [facility] [address] [facility] [id number], [place] [address]- 8932 Apr, [facility] [address] [facility] [id number] [place] [id number] Apr, [facility] [place] [facility] [address], [place] 90340324- 4634 Apr, [facility] [address] [facility] [id number] [place] [id number] Apr, [facility] [place] [facility] [address]65[address], [place] [address]- 7575 Apr, [facility] [place] [facility] [address] [facility] [id number], [place] [address]- 6815 March, [facility] [place] [facility] [address] [facility] [id number], [place] [address]- 3364 March, [facility] [address] [id number] [place] [id number] March, [facility] [address] [facility] [id number] [place] [id number] Feb, [facility] [place] [facility] [address] [facility] [id number] [place] [address]- 2242 Feb, [facility] [address] [facility] [id number] [place] [id number] Jan, [facility] [place] [facility] [address] [facility] [id number], [place] [address]- 5849 Jan, [facility] [address] [facility] [id number] [place] [id number] Dec, [facility] [place] [facility] [address] [facility] [id number], [place] [address]- 3826 Dec, [facility] [address] [facility] [id number] [place] [id number] Dec, [facility] [place] [facility] [address] [facility] [id number] [place] [address] 2546 Dec, [facility] [place] [facility] [address] [facility] [id number] [place] [address] 2546 Dec, [facility] [place] [facility] [address] [id number] [place] [address]- 4076 Dec, [facility] [address] [id number] [place] [id number] Nov, [facility] [place] [facility] [address] [id number] [address] Nov, [facility] [address] [id number] [place] [id number] Nov, [facility] [place] [facility] [address] [id number] [address] Nov, [facility] [address] [id number] [place] [id number] Nov, [facility] [place] [facility] [address] [facility] [id number], [place] [address] Nov, [facility] [address] [facility] [id number] [place] [id number] Oct, [facility] [place] [facility] [address] [facility] [id number], [place] [address] Oct, [facility] [place] [facility] [address] [facility] [id number][place] [address] Oct, [facility] [address] [facility] [id number] [place] [id number] Oct, [facility] [address] [facility] [id number], [place] [address] Sep, [facility] [address] [facility] [id number], [place] [address] Sep, [facility] [address] [id number] [place] [id number] Sep, [facility] [address] [facility] [id number], [place] [address] Sep, [facility] [address] [id number] [place] [id number] Aug, [facility] [address] [facility] [id number], [place] [address] Aug, [facility] [address] [id number] [place] [id number] Jul, [facility] [address] [id number] [place] [id number] Jul, [facility] [address] [id number] [place] [id number] Jun, [facility] [address] [id number] [place] [id number] May, [facility] [address] [id number] [place] [id number] May, [facility] [address] [id number], [place] [address] May, [facility] [address] [id number] [place] [id number] Apr, [facility] [address] [id number] [place] [id number] Apr, [facility] [address] [id number] [place] [id number] March, [facility] [address] [id number] [place] [id number] Feb, [facility] [address] [id number] [place] [id number] Feb, [facility] [address] [id number] [place] [id number] Jan, [facility] [address] [id number] [place] [id number] Jan, [facility] [address] [id number] [place] [id number] Dec, [facility] [address] [id number] [place] [id number] Nov, [facility] [place] [facility] [address] [facility] [id number], [place] [address] Oct, [facility] [place] [facility] [address] [facility] [id number] [address] Oct, [facility] [address] [facility] [id number] [place] [id number] Oct, [facility] [address], [place] [address] Oct, [facility] [address] [facility] [id number], [place] [address] Oct, [facility] [address] [id number] [place] [id number] Oct, [facility] [address] [facility] [id number] [place] [id number] Sep, [facility] [address]65[address], [place] [address] Sep, [facility] [address] [id number] [place] [id number] Sep, [facility] [address] [facility] [id number], [place] [address] Sep, [facility] [address] [id number] [place] [id number] Aug, [facility] [address] [facility] [id number], [place] [address] Aug, [facility] [address] [id number] [place] [id number] Aug, [facility] [address] [id number] [place] [id number] Jun, [facility] [id number] [place] [id number] Jun, [facility] [address] [id number], [place] [address] May, [facility] [id number] [place] [id number] Apr, [facility] [id number] [place] [id number] March, [facility] [id number] [place] [id number] Feb, [facility] [id number] [place] [id number] Jan, [facility] [id number] [place] [id number] Nov, [facility] [id number] [place] [phone] Sep, [facility] [id number] [place] [id number] Sep, [facility] [id number] [place] [phone] Aug, [facility] [id number] [place] [id number] Apr, [facility] [id number] [place] [id number] March, IMMUNIZATIONS No Known Immunizations SOCIAL HISTORY Never Assessed REASON FOR VISIT Requests return call PLAN OF CARE VITAL SIGNS MEDICATIONS Unknown Medications RESULTS No Results PROCEDURES No Known procedures INSTRUCTIONS MEDICATIONS ADMINISTERED No Known Medications MEDICAL (GENERAL) HISTORY Type Description Date Medical [...]
--- OUTSIDE RECORDS SUMMARY | 2018-11-11 16:44 | XMS REPORT ---
Author Author TARIQ TATE [facility] Address [address] [place] [address] Care Team Providers Care Senior Systems Administrator Name Role Phone TARIQ TATE Unavailable PROBLEMS Type Condition ICD9-CM Code UJN57-LO Code Onset Dates Condition Status SNOMED Code Problem Hip bursitis, left M70.72 Active 81586201 Problem Osteoarthritis of both knees, unspecified osteoarthritis type M17.0 Active 212347005 Problem Psychophysiological insomnia F51.04 Active 715932469 Problem Moderate episode of recurrent major depressive disorder F33.1 Active 346033553 Problem Arthralgia of right temporomandibular joint M26.62 Active 56537750 Problem Other depression F32.8 Active 38719121 Problem Sciatic leg pain M54.30 Active 62737237 Problem Chronic obstructive pulmonary disease, unspecified COPD type J44.9 Active [id number] ALLERGIES No Information ENCOUNTERS Encounter Location Date Diagnosis [facility] [id number] [place] [address] [id number] Oct, [facility] [id number] [place] [address] [id number] Sep, [facility] [id number] [place] [address] [id number] Sep, [facility] [id number] [place] [address] [phone] Sep, Psychophysiological insomnia F51.04 [facility] [id number] [place] [address] [id number] Aug, Breast cancer screening Z12.31 [facility] [id number] [place] [address] [id number] Aug, [facility] [address] [id number], [place] [address] Aug, [facility] [id number] [place] [address] [id number] Jul, [facility] [place] [address] [id number] [id number] Jul, Chronic obstructive pulmonary disease, unspecified COPD type J44.9 ; Osteoarthritis of both knees, unspecified osteoarthritis type M17.0 ; Moderate episode of recurrent major depressive disorder F33.1 and Sciatic leg pain M54.30 [facility] [place] [id number] [place] [address] [id number] Jun, Moderate episode of recurrent major depressive disorder F33.1 ; Sciatic leg pain M54.30 and Chronic obstructive pulmonary disease, unspecified COPD type J44.9 [facility] [id number] [place] [address] [id number] Jun, [facility] [place] [id number] [place] [address] [id number] May, Sciatic leg pain M54.30 [facility] [address] [id number] [place] [address] [id number] May, Chronic obstructive pulmonary disease, unspecified COPD type J44.9 [facility] [address] [id number], [place] [id number] May, [facility] [place] [id number] [place] [address] [id number] Apr, Moderate episode of recurrent major depressive disorder F33.1 ; Sciatic leg pain M54.30 and Chronic obstructive pulmonary disease, unspecified COPD type J44.9 [facility] [address] [id number], [place] [id number] March, [facility] [place] [id number] [place] [address] [id number] Feb, Sciatic leg pain M54.30 [facility] [address] [id number], [place] [id number] Feb, [facility] [place] [address] [id number], [place] [id number] Dec, Moderate episode of recurrent major depressive disorder F33.1 ; Sciatic leg pain M54.30 ; Chronic obstructive pulmonary disease, unspecified COPD type J44.9 and Screening for thyroid disorder Z13.29 [facility] [place] [address] [id number], [place] [id number] Dec, Chronic obstructive pulmonary disease, unspecified COPD type J44.9 [facility] [place] [address] [id number] [place] [id number] Nov, Sciatic leg pain M54.30 [facility] [address] [id number], [place] [id number] Oct, [facility] [address] [id number], [place] [phone] Oct, Acute pain of right shoulder M25.511 [facility] [place] [address] [id number] [place] [id number] Oct, Chronic obstructive pulmonary disease, unspecified COPD type J44.9 [facility] [place] [address] [id number], [place] [id number] Oct, [facility] [place] [id number] [place] [address] [id number] Sep, Chronic obstructive pulmonary disease, unspecified COPD type J44.9 and Sciatic leg pain M54.30 [facility] [place] [address] [id number], [place] [id number] Aug, Moderate episode of recurrent major depressive disorder F33.1 and Chronic obstructive pulmonary disease, unspecified COPD type J44.9 [facility] [address] [id number], [place] [phone] Aug, Moderate episode of recurrent major depressive disorder F33.1 [facility] [place] [address] [id number], [place] [id number] Jul, Other depression F32.8 and Chronic obstructive pulmonary disease, unspecified COPD type J44.9 [facility] [place] [address] [id number], [place] [id number] Jul, Moderate episode of recurrent major depressive disorder F33.1 [facility] [address] [id number], [place] [phone] Jun, [facility] [place] [address] [id number], [place] [id number] Jun, Moderate episode of recurrent major depressive disorder F33.1 [facility] [place] [address] [id number], [place] [id number] Jun, Moderate episode of recurrent major depressive disorder F33.1 [facility] [place] [address] [id number], [place] [id number] Jun, [facility] [place] [address] [id number], [place] [id number] Jun, Sciatic leg pain M54.30 [facility] [place] [address] [id number], [place] [phone] Jun, [facility] [place] [address] [id number], [place] [id number] May, Screening for thyroid disorder Z13.29 and Screening for lipid disorders Z13.220 [facility] [place] [address] [id number], [place] [id number] May, Other depression F32.8 [facility] [place] [address] [id number], [place] [id number] Apr, Sciatic leg pain M54.30 [facility] [place] [address] [id number], [place] [id number] Apr, Screening for lipid disorders Z13.220 ; Screening for thyroid disorder Z13.29 and Chronic obstructive pulmonary disease, unspecified COPD type J44.9 [facility] [place] [address] [id number], [place] [phone] Apr, Screening for lipid disorders Z13.220 ; Screening for thyroid disorder Z13.29 and Chronic obstructive pulmonary disease, unspecified COPD type J44.9 [facility] [place] [address] [id number], [place] [id number] Apr, [facility] [place] [address] [id number], [place] [id number] Apr, Chronic obstructive pulmonary disease, unspecified COPD type J44.9 [facility] [place] [address] [place], [place] [address]E [id number] [place] [address] March [facility] [place] [address] [id number], [place] [phone] March, Sciatic leg pain M54.30 and Other depression F32.8 [facility] [place] [address] [id number], [place] [id number] March, [facility] [place] [address] [id number] [place] [address] [id number] Jan, Other depression F32.8 and Sciatic leg pain M54.30 [facility] [place] [id number] [place] [address] [id number] Jan, Sciatic leg pain M54.30 [facility] [place] [id number] [place] [address] [id number] Dec, Other depression F32.8 [facility] [place] [id number] [place] [address] [id number] Dec, Chronic obstructive pulmonary disease, unspecified COPD type J44.9 [facility] [place] [id number] [place] [address] [id number] Nov, [facility] [place] [id number] [place] [address] [id number] Oct, Other depression F32.8 and Chronic obstructive pulmonary disease, unspecified COPD type J44.9 [facility] [place] [address] [id number], [place] [id number] Aug, [facility] [place] [id number] [place] [address] [id number] Aug, Other depression F32.8 ; Arthralgia of right temporomandibular joint M26.62 and Encounter for immunization Z23 [facility] [place] [address] [id number] [place] [address] [id number] Aug, Encounter for well woman exam Z01.419 [facility] [place] [address] [id number] [place] [address] [id number] Jul, Other depression F32.8 and Arthralgia of right temporomandibular joint M26.62 [facility] [place] [id number] [place] [address] [id number] Jun, [facility] [place] [address] [id number] [place] [address] Jun [facility] [place] [address] [id number] [place] [address] [id number] Jun, [facility] [address] [id number], [place] [id number] Jun, Other depression F32.8 and Urinary tract infection without hematuria, site unspecified N39.0 [facility] [place] [id number], [place] [phone] Apr, [facility] [place] [id number] [place] [address] [id number] Apr, Dysuria R30.0 [facility] [address] [id number], [place] [address] March, [facility] [place] [id number] [place] [address] [id number] March, Urinary tract infection, site unspecified N39.0 [facility] [place] [id number] [place] [address] [id number] March, Urinary tract infection, site unspecified N39.0 [facility] [place] [id number] [place] [address] [id number] Feb, [facility] [place] [id number] [place] [address] [id number] Feb, Headache R51 and Ear pain H92.09 [facility] [place] [id number] [place] [address] [id number] Jan, Osteoarthritis of both knees, unspecified osteoarthritis type M17.0 and Hip bursitis, left M70.72 [facility] [place] [id number], [place] [id number] Jan, [facility] [place] [id number] [place] [address] [id number] Dec, Unspecified arthropathy, site unspecified 716.90 and COPD (chronic obstructive pulmonary disease) 496 [facility] [place] [id number] [place] [address] [id number] Dec, [facility] [place] [id number] [place] [address] [id number] Nov, [facility] [id number], [place] [id number] Oct, [facility] [place] [address] [id number], [place] [phone] Sep, [facility] [address] [facility] [id number], [place] [id number] Sep, [facility] [id number], [place] [id number] Aug, [facility] [place] [address] [facility] [address] [id number], [place] [id number] Aug, [facility] [id number], [place] [id number] Aug, Urinary tract infection N39.0 and Shoulder strain, right, initial encounter [address]46.[address] [address] [id number], [place] [id number] Aug, Screening breast examination Z12.39 and Encounter for immunization Z23 [address] [id number], [place] [id number] Aug, [facility] [place] [id number] [place] [address] [id number] Aug, [facility] [address] [facility] [id number], [place] [id number] Jul, [address] [place] [id number] [place] [address] [id number] Jun, [address] [id number], [place] [id number] Jun, Allergic rhinitis, cause unspecified 477.9 and Cough 786.2 [address] [id number] [place] [address] [id number] May, [facility] [id number], [place] [id number] May, [place] [address] [facility] [id number], [place] [id number] May, Visit for suture removal V58.32 [facility] [id number] [place] [address] [id number] May, Dog bite 879.8 [address] [id number], [place] [id number] Apr, Rib pain on right side 786.50 [place] [address] [id number], [place] [id number] Apr, [facility] [place] [id number] [place] [address] [id number] Apr, Allergic rhinitis, cause unspecified 477.9 and Cough 786.2 [facility] [place] [id number], [place] [id number] March, [facility] [place] [id number] [place] [address] [id number] March, [facility] [place] [id number] [place] [address] [id number] March, [facility] [place] [id number] [place] [address] [id number] March, [facility] [place] [id number] [place] [address] [id number] March, Cough 786.2 and Shortness of breath 786.05 [facility] [place] [id number] [place] [address] [id number] March, [facility] [place] [id number] [place] [address] [id number] March, Cough 786.2 ; COPD (chronic obstructive pulmonary disease) 496 and Allergic rhinitis, cause unspecified 477.9 [facility] [place] [id number] [place] [address] [id number] Feb, Allergic rhinitis, cause unspecified 477.9 ; Cough 786.2 and COPD ( chronic obstructive pulmonary disease) 496 [facility] [address] [id number], [place] [address] Feb, [facility] [id number] [place] [address] Feb, [facility] [id number] [place] [address] 89420 2546 Jan, [facility] [id number] [place] [address]- 2546 Jan, [facility] [id number] [place] [address]- [address] Jan, [facility] [address] [id number] [place] [id number] Jan, [facility] [place] [facility] [address] [id number] [place] [address]- 25[address] Jan, [facility] [address] [id number] [place] [id number] Dec, [facility] [place] [facility] [address] [facility] [id number] [place] [address]- 25[address] Dec, [facility] [address] [id number] [place] [id number] Dec, [facility] [place] [facility] [address] [facility] [id number] [place] [address]- 2546 Dec, [facility] [address] [id number] [place] [id number] Dec, [facility] [place] [facility] [address]00565100[place], [place] [address]- [address] Dec, [facility] [place] [facility] [address] [facility] [id number], [place] [address]- 2546 Dec, [facility] [address] [facility] [id number], [place] [id number] Nov, [facility] [place] [facility] [address] [facility] [id number], [place] [address]- [address] Nov, [facility] [place] [facility] [address] [facility] [id number], [place] [address]- [address] Nov, [facility] [address] [id number], [place] [id number] Nov, [facility] [place] [facility] [address] [facility] [id number], [place] [address]- [address] Nov, [facility] [address] [id number] [place] [id number] Oct, [facility] [place] [facility] [address] [facility] [id number], [place] [address]- 289[address] Oct, [facility] [address] [id number] [place] [id number] Sep, [facility] [place] [facility] [address] [id number], [place] [address]- 0747 Sep, [facility] [address] [id number], [place] [id number] Sep, [facility] [place] [facility] [address] [facility] [id number], [place] [address]- 6[address] Sep, [facility] [address] [id number], [place] [id number] Aug, [facility] [place] [facility] [address] [facility] [id number], [place] [address]- 9414 Aug, [facility] [address] [id number], [place] [id number] Aug, [facility] [place] [facility] [address] [facility] [id number], [place] [address]- 8[address] Aug, [facility] [place] [facility] [address] [facility] [id number], [place] [address]- 9[address] Jul, [facility] [address] [id number], [place] [id number] Jul, [facility] [address] [id number], [place] [id number] Jul, [facility] [address] [id number], [place] [id number] Jul, [facility] [place] [facility] [address] [facility] [id number], [place] [address]- 1007 Jul, [facility] [place] [facility] [address] [facility] [id number], [place] [address]- 8735 Jul, [facility] [place] [facility] [address] [facility] [id number], [place] [address]- 3051 Jul, [facility] [place] [facility] [address] [facility] [id number], [place] [address]- 97[address] Jul, [facility] [address] [facility] [id number], [place] [id number] Jun, [facility] [place] [facility] [address] [id number], [place] [address]- 2[address] Jun, [facility] [place] [facility] [address] [id number], [place] [address]- 2915 Jun, [facility] [place] [address] [id number] [place] [id number] Jun, [facility] [address] [id number], [place] [address]- 8088 Jun, [facility] [address] [id number] [place] [id number] Jun, [facility] [address] [id number], [place] [address]- 9089 Jun, [facility] [address] [facility] [id number], [place] [id number] Apr, [facility] [place] [facility] [address] [facility] [id number], [place] [address]- 5[address] Apr, [facility] [address] [facility] [id number], [place] [id number] Apr, [facility] [place] [facility] [address] [facility] [id number], [place] [address]- 4961 Apr, [facility] [address] [facility] [id number], [place] [id number] Apr, [facility] [place] [facility] [address] [facility] [id number], [place] [address]- 3090 Apr, [facility] [place] [facility] [address] [facility] [id number], [place] [address]- 0482 March, [facility] [place] [facility] [address] [id number], [place] [address]- 3855 March, [facility] [address] [id number] [place] [id number] March, [facility] [address] [facility] [id number], [place] [id number] Feb, [facility] [place] [facility] [address] [facility] [id number][place] [address] Feb, [facility] [address] [id number] [place] [id number] Jan, [facility] [address] [facility] [id number] [place] [address] Jan, [facility] [address] [id number] [place] [id number] Dec, [facility] [address] [facility] [id number], [place] [address] Dec, [facility] [address] [id number] [place] [id number] Dec, [facility] [place] [facility] [address] [facility] [id number] [place] [address] Dec, [facility] [place] [facility] [address] [id number] [place] [address] Dec, [facility] [place] [facility] [id number], [place] [address] Dec, [facility] [address] [facility] [id number][place] [id number] Nov, [facility] [place] [facility] [id number], [place] [address] Nov, [facility] [address] [facility] [id number][place] [id number] Nov, [facility] [place] [facility] [address] [id number], [place] [address] Nov, [facility] [address] [facility] [id number][place] [id number] Nov, [facility] [place] [facility] [address] [facility] [id number], [place] [address] Nov, [facility] [address] [facility] [id number], [place] [id number] Oct, [facility] [place] [facility] [address] [facility] [id number], [place] [address] Oct, [facility] [place] [facility] [address] [facility] [id number], [place] [address] Oct, [facility] [address] [id number] [place] [id number] Oct, [facility] [address] [facility] [id number], [place] [address] Sep, [facility] [address] [facility] [id number], [place] [address] Sep, [facility] [address] [id number][place] [id number] Sep, [facility] [address] [facility] [id number], [place] [address] Sep, [facility] [address] [id number][place] [id number] Aug, [facility] [id number], [place] [address] Aug, [facility] [address] [id number][place] [id number] Jul, [facility] [address] [id number] [place] [id number] Jul, [facility] [address] [id number] [place] [id number] Jun, [facility] [address] [id number] [place] [id number] May, [facility] [address] [id number], [place] [id number] May, [facility] [place] [facility] [address] [facility] [id number], [place] [address] May, [facility] [address] [id number] [place] [id number] Apr, [facility] [address] [id number] [place] [id number] Apr, [facility] [address] [id number] [place] [id number] March, [facility] [address] [id number] [place] [id number] Feb, [facility] [address] [id number] [place] [id number] Feb, [facility] [address] [id number] [place] [id number] Jan, [facility] [address] [id number] [place] [id number] Jan, [facility] [address] [id number] [place] [id number] Dec, [facility] [address] [id number] [place] [id number] Nov, [facility] [address] [facility] [id number], [place] [address] Oct, [facility] [address] [facility] [id number], [place] [address] Oct, [facility] [address] [facility] [id number][place] [id number] Oct, [facility] [id number], [place] [address] Oct, [facility] [address]65[address], [place] [address] Oct, [facility] [address] [facility] [id number][place] [id number] Oct, [facility] [address] [facility] [id number][place] [id number] Sep, [facility] [address] [facility] [id number], [place] [address] Sep, [facility] [address] [id number][place] [id number] Sep, [facility] [address] [facility] [id number], [place] [address] Sep, [facility] [address] [facility] [id number][place] [id number] Aug, [facility] [address] [id number], [place] [address] Aug, [facility] [address] [id number][place] [id number] Aug, [facility] [id number][place] [id number] Jun, [facility] [place] [id number][place] [id number] Jun, [facility] [id number] [place] [address] May, [facility] [place] [facility] [place] [id number][place] [id number] Apr, [facility] [place] [id number] [place] [id number] March, [facility] [id number] [place] [id number] Feb, [facility] [id number] [place] [id number] Jan, [facility] [id number] [place] [id number] Nov, [facility] [id number] [place] [address] Sep, [facility] [id number] [place] [address] Sep, [facility] [id number] [place] [address] Aug, [facility] [id number] [place] [address] Apr, [facility] [id number] [place] [address] March, IMMUNIZATIONS No Known Immunizations SOCIAL HISTORY Never Assessed REASON FOR VISIT PLAN OF CARE VITAL SIGNS MEDICATIONS Medication Instructions Dosage Frequency Start Date End Date Duration Status Omeprazole 40 mg Orally 2 times a day 1 capsule 12h 30 days Active RESULTS No Results PROCEDURES No [...]
--- OUTSIDE RECORDS SUMMARY | 2018-11-11 16:45 | XMS REPORT ---
Author Author TARIQ TATE Organization [facility] Address [address] [place] [address] Care Team Providers Care Furniture Technician Name Role Phone TARIQ TATE Unavailable PROBLEMS Type Condition ICD9-CM Code HGM10-FS Code Onset Dates Condition Status SNOMED Code Problem Hip bursitis, left M70.72 Active 51696264 Problem Moderate episode of recurrent major depressive disorder F33.1 Active 501577438 Problem Sciatic leg pain M54.30 Active 29823010 Problem Other depression F32.8 Active 34184200 Problem Osteoarthritis of both knees, unspecified osteoarthritis type M17.0 Active 594670187 Problem Chronic obstructive pulmonary disease, unspecified COPD type J44.9 Active 65158970 Problem Arthralgia of right temporomandibular joint M26.62 Active 81554537 ALLERGIES Substance Reaction Event Type Date Status Sulfamethoxazole nausea and vomiting Drug Allergy Jul, Active ENCOUNTERS Encounter Location Date Diagnosis [place] [id number] [place] [address] [id number] Jul, [place] [id number] [place] [address] [phone] Jul, Chronic obstructive pulmonary disease, unspecified COPD type J44.9 ; Osteoarthritis of both knees, unspecified osteoarthritis type M17.0 ; Moderate episode of recurrent major depressive disorder F33.1 and Sciatic leg pain M54.30 [facility] [id number], [place] [address] Jun, Moderate episode of recurrent major depressive disorder F33.1 ; Sciatic leg pain M54.30 and Chronic obstructive pulmonary disease, unspecified COPD type J44.9 [facility] [id number], [place] [id number] Jun, [place] [id number] [place] [address] [phone] May, Sciatic leg pain M54.30 [facility] [address] [id number], [place] [id number] May, Chronic obstructive pulmonary disease, unspecified COPD type J44.9 [facility] [address] [id number] [place] [phone] May, [facility] [address] [id number], [place] [id number] Apr, Moderate episode of recurrent major depressive disorder F33.1 ; Sciatic leg pain M54.30 and Chronic obstructive pulmonary disease, unspecified COPD type J44.9 [facility] [address] [id number], [place] [address]233429 March, [facility] [address] [id number] [place] [place] [address] [phone] Feb, Sciatic leg pain M54.30 [facility] [address] [id number] [place] [id number] Feb, [facility] [address] [id number], [place] [id number] Dec, Moderate episode of recurrent major depressive disorder F33.1 ; Sciatic leg pain M54.30 ; Chronic obstructive pulmonary disease, unspecified COPD type J44.9 and Screening for thyroid disorder Z13.29 [facility] [address] [id number], [place] [id number] Dec, Chronic obstructive pulmonary disease, unspecified COPD type J44.9 [facility] [place] [address] [id number], [place] [id number] Nov, Sciatic leg pain M54.30 [facility] [address] [id number] [place] [id number] Oct, [facility] [address] [id number], [place] [id number] Oct, Acute pain of right shoulder M25.511 [facility] [address] [id number], [place] 448644481 Oct, Chronic obstructive pulmonary disease, unspecified COPD type J44.9 [facility] [address] [id number], [place] [id number] Oct, [facility] [address] [id number], [place] 505103249 Sep, Chronic obstructive pulmonary disease, unspecified COPD type J44.9 and Sciatic leg pain M54.30 [facility] [address] [id number] [place] [address] [phone] Aug, Moderate episode of recurrent major depressive disorder F33.1 and Chronic obstructive pulmonary disease, unspecified COPD type J44.9 [facility] [place] [address] [facility] [address] [id number] [place] [phone] Aug, Moderate episode of recurrent major depressive disorder F33.1 [facility] [address] [id number] [place] [address] [phone] Jul, Other depression F32.8 and Chronic obstructive pulmonary disease, unspecified COPD type J44.9 [facility] [address] [id number] [place] [address] [phone] Jul, Moderate episode of recurrent major depressive disorder F33.1 [facility] [place] [address] [facility] [address] [id number] [place] [id number] Jun, [facility] [address] [id number] [place] [address] [id number] Jun, Moderate episode of recurrent major depressive disorder F33.1 [facility] [address] [id number] [place] [address] [phone] Jun, Moderate episode of recurrent major depressive disorder F33.1 [facility] [address] [id number] [place] [address] [phone] Jun, [facility] [address] [id number] [place] [address] [phone] Jun, Sciatic leg pain M54.30 [facility] [address] [id number] [place] [address] [phone] Jun, [facility] [address] [id number] [place] [address] [phone] May, Screening for thyroid disorder Z13.29 and Screening for lipid disorders Z13.220 [facility] [address] [id number] [place] [address] [phone] May, Other depression F32.8 [facility] [address] [id number], [place] [id number] Apr, Sciatic leg pain M54.30 [facility] [address] [id number] [place] [address] [phone] Apr, Screening for lipid disorders Z13.220 ; Screening for thyroid disorder Z13.29 and Chronic obstructive pulmonary disease, unspecified COPD type J44.9 [facility] [address] [id number] [place] [address] [phone] Apr, Screening for lipid disorders Z13.220 ; Screening for thyroid disorder Z13.29 and Chronic obstructive pulmonary disease, unspecified COPD type J44.9 [facility] [address] [id number], [place] [id number] Apr, [facility] [address] [id number] [place] [address] [phone] Apr, Chronic obstructive pulmonary disease, unspecified COPD type J44.9 [facility] [id number] [address] March [facility] [address] [id number], [place] [id number] March, Sciatic leg pain M54.30 and Other depression F32.8 [facility] [address] [id number], [place] [id number] March, [facility] [address] [id number], [place] [phone] Jan, Other depression F32.8 and Sciatic leg pain M54.30 [facility] [address] [id number], [place] [id number] Jan, Sciatic leg pain M54.30 [facility] [address] [id number], [place] [id number] Dec, Other depression F32.8 [facility] [address] [id number], [place] [id number] Dec, Chronic obstructive pulmonary disease, unspecified COPD type J44.9 [facility] [address] [id number], [place] [phone] Nov, [facility] [address] [id number], [place] [id number] Oct, Other depression F32.8 and Chronic obstructive pulmonary disease, unspecified COPD type J44.9 [facility] [id number] [place] [place] [address] [phone] Aug, [facility] [id number] [place] [address] [phone] Aug, Other depression F32.8 ; Arthralgia of right temporomandibular joint M26.62 and Encounter for immunization Z23 [facility] [id number] [place] [address] [phone] Aug, Encounter for well woman exam Z01.419 [facility] [place] [id number] [place] [address] [phone] Jul, Other depression F32.8 and Arthralgia of right temporomandibular joint M26.62 [facility] [place] [id number] [place] [address] [phone] Jun, [facility] [place] [address] [id number] [place] [address] Jun [facility] [place] [id number], [place] [phone] Jun, [facility] [id number] [place] [address] [phone] Jun, Other depression F32.8 and Urinary tract infection without hematuria, site unspecified N39.0 [facility] [place] [id number], [place] [id number] Apr, [facility] [id number] [place] [address] [phone] Apr, Dysuria R30.0 [facility] [address]00565100[place] [address]- [address] March, [facility] [id number] [place] [address] [phone] March, Urinary tract infection, site unspecified N39.0 [facility] [place] [id number], [place] [id number] March, Urinary tract infection, site unspecified N39.0 [facility] [place] [address] [id number], [place] [phone] Feb, [facility] [address] [id number] [place] [address] [phone] Feb, Headache R51 and Ear pain H92.09 [facility] [place] [address] [id number] [place] [address] [phone] Jan, Osteoarthritis of both knees, unspecified osteoarthritis type M17.0 and Hip bursitis, left M70.72 [facility] [place] [address] [id number] [place] [address] [phone] Jan, [facility] [address] [id number] [place] [address] [phone] Dec, Unspecified arthropathy, site unspecified 716.90 and COPD (chronic obstructive pulmonary disease) 496 [facility] [place] [address] [id number], [place] [id number] Dec, [facility] [address] [id number] [place] [address] [phone] Nov, [facility] [address] [id number] [place] [address] [phone] Oct, [facility] [address] [id number] [place] [address] [phone] Sep, [facility] [address] [id number], [place] [phone] Sep, [facility] [address] [id number], [place] [id number] Aug, [address] [id number] [place] [phone] Aug, [facility] [place] [address] [facility] [id number], [place] [phone] Aug, Urinary tract infection N39.0 and Shoulder strain, right, initial encounter S46.911A [facility] [place] [id number] [place] [place] [address] [phone] 14 Aug, 2015 Screening breast examination Z12.39 and Encounter for immunization Z23 [facility] [id number] [place] [address] [id number] Aug, [facility] [address] [facility] [id number] [place] [id number] Aug, [facility] [id number], [place] [id number] Jul, [facility] [id number], [place] [id number] Jun, [facility] [id number] [place] [place] [address] [phone] Jun, Allergic rhinitis, cause unspecified 477.9 and Cough 786.2 [facility] [id number] [place] [place] [address] [id number] May, [facility] [id number] [place] [place] [address] [phone] May, [facility] [id number] [place] [address] [phone] May, Visit for suture removal V58.32 [facility] [id number], [place] [id number] May, Dog bite 879.8 [facility] [id number] [place] [address] [phone] Apr, Rib pain on right side 786.50 [facility] [id number], [place] [id number] Apr, [facility] [id number] [place] [address] [phone] Apr, Allergic rhinitis, cause unspecified 477.9 and Cough 786.2 [facility] [id number], [place] [id number] March, [facility] [id number], [place] [id number] March, [facility] [id number], [place] [id number] March, [facility] [id number], [place] [id number] March, [facility] [id number], [place] 485143729 March, Cough 786.2 and Shortness of breath 786.05 [facility] [place] [id number], [place] [id number] March, [facility] [place] [id number] [place] [address] [phone] March, Cough 786.2 ; COPD (chronic obstructive pulmonary disease) 496 and Allergic rhinitis, cause unspecified 477.9 [facility] [id number], [place] [id number] Feb, Allergic rhinitis, cause unspecified 477.9 ; Cough 786.2 and COPD ( chronic obstructive pulmonary disease) 496 [facility] [id number] [place] [address] 2406 Feb, [facility] [id number] [place] [address] 00281- 9106 Feb, [facility] [id number] [place] [address] 09[address]- 1306 Jan, [facility] [id number] [place] [address] 47[address]- 4676 Jan, [facility] [id number] [place] [address] 04357- 2443 Jan, [facility] [id number], [place] [phone] Jan, [facility] [address]00565100[place], [place] [address]- 25[address] Jan, [facility] [id number], [place] [id number] Dec, [facility] [address]00565100[place], [place] [address]- 2546 Dec, [facility] [id number], [place] [id number] Dec, [facility] [address]00565100[place], [place] [address]- 2546 Dec, [facility] [place] [address]00565100[place], [place] [id number] Dec, [facility] [place] [facility] [address] [facility] [id number], [place] [address]- 4714 Dec, [facility] [place] [facility] [address] [facility] [id number], [place] [address]- 7716 Dec, [facility] [address] [facility] [id number], [place] [id number] Nov, [facility] [place] [facility] [address] [facility] [id number], [place] [address]- 1692 Nov, [facility] [place] [facility] [address] [facility] [id number], [place] [address]- 9513 Nov, [facility] [address] [facility] [id number], [place] [id number] Nov, [facility] [place] [facility] [address] [facility] [id number], [place] [address]- 4508 Nov, [facility] [address] [facility] [id number], [place] [id number] Oct, [facility] [place] [facility] [address] [facility] [id number], [place] [address]- 9[address] Oct, [facility] [address] [facility] [id number], [place] [id number] Sep, [facility] [place] [facility] [address] [facility] [id number], [place] [address]- 1497 Sep, [facility] [address] [facility] [id number], [place] 055936096 Sep, [facility] [place] [facility] [address] [facility] [id number], [place] [address]- 7470 Sep, [facility] [address] [facility] [id number], [place] [id number] Aug, [facility] [place] [facility] [address] [facility] [id number], [place] [address]- 5765 Aug, [facility] [address] [facility] [id number], [place] [id number] Aug, [facility] [place] [facility] [address] [facility] [id number], [place] [address]- 1736 Aug, [facility] [place] [facility] [address] [id number] [place] [address]- 4453 Jul, [facility] [address] [id number] [place] [id number] Jul, [facility] [address] [facility] [id number] [place] [id number] Jul, [facility] [address] [id number] [place] [id number] Jul, [facility] [place] [facility] [address] [facility] [id number] [address]- 8419 Jul, [facility] [place] [facility] [address] [facility] [id number], [place] [address]- 6387 Jul, [facility] [place] [facility] [address] [place] [address]- 3280 Jul, [facility] [place] [facility] [address] [facility] [id number], [place] [address]- 8389 Jul, [facility] [address] [facility] [id number], [place] [id number] Jun, [facility] [place] [facility] [address] [facility] [id number], [place] [address]- 7037 Jun, [facility] [place] [facility] [address] [facility] [id number], [place] [address]- 0163 Jun, [facility] [address] [facility] [id number], [place] [id number] Jun, [facility] [place] [facility] [address] [facility] [id number], [place] [address]- 1161 Jun, [facility] [address] [facility] [id number] [place] [id number] Jun, [facility] [place] [facility] [address] [facility] [id number], [place] [address]- 4716 Jun, [facility] [address] [facility] [id number], [place] [id number] Apr, [facility] [place] [facility] [address] [facility] [id number], [place] [address]- 3952 Apr, [facility] [address] [facility] [id number] [place] [id number] Apr, [facility] [place] [facility] [address] [id number] [address]- 8526 Apr, [facility] [id number], [place] [id number] Apr, [facility] [place] [facility] [address] [facility] [id number] [place] [address]- 9184 Apr, [facility] [place] [facility] [address]00565100[place], [place] [address]- 7394 March, [facility] [place] [facility] [address]00565100[place], [place] [address]- 5334 March, [facility] [id number], [place] [id number] March, [facility] [address] [id number], [place] [id number] Feb, [facility] [place] [id number], [place] [address] Feb, [facility] [place] [address] [id number][place] [id number] Jan, [facility] [address] [id number], [place] [address] Jan, [facility] [place] [id number][place] [id number] Dec, [facility] [address] [id number] [address] Dec, [facility] [place] [address] [facility] [id number][place] [id number] Dec, [facility] [address] [id number], [place] [address] Dec, [facility] [id number], [place] [address] Dec, [facility] [address] [facility] [id number], [place] [address] Dec, [facility] [place] [address] [facility] [id number][place] [id number] Nov, [facility] [address] [facility] [id number], [place] [address] Nov, [facility] [place] [address] [facility] [id number][place] [id number] Nov, [facility] [address] [facility] [id number], [place] [address] Nov, [facility] [place] [address] [facility] [id number][place] [id number] Nov, [facility] [id number], [place] [address] Nov, [facility] [place] [id number][place] [id number] Oct, [facility] [address] [facility] [id number], [place] [address] Oct, [facility] [id number], [place] [address] Oct, [facility] [place] [address] [facility] [id number][place] [id number] Oct, [facility] [id number], [place] [address] Sep, [facility] [address] [facility] [id number], [place] [address] Sep, [facility] [place] [address] [facility] [id number], [place] [id number] Sep, [facility] [address] [facility] [id number], [place] [address] Sep, [facility] [place] [address] [facility] [id number] [place] [id number] Aug, [facility] [id number], [place] [address] Aug, [facility] [place] [address] [id number] [place] [id number] Jul, [facility] [place] [address] [id number] [place] [id number] Jul, [facility] [place] [address] [id number] [place] [id number] Jun, [facility] [place] [address] [id number] [place] [id number] May, [facility] [place] [address] [id number] [place] [id number] May, [facility] [address] [facility] [id number], [place] [address] May, [facility] [place] [address] [id number] [place] [id number] Apr, [facility] [place] [address] [id number] [place] [id number] Apr, [facility] [place] [address] [id number] [place] [id number] March, [facility] [place] [address] [id number] [place] [id number] Feb, [facility] [place] [address] [id number] [place] [id number] Feb, [facility] [place] [address] [id number] [place] [id number] Jan, [facility] [place] [address] [id number] [place] [id number] Jan, [facility] [place] [address] [id number] [place] [id number] Dec, [facility] [place] [address] [id number] [place] [id number] Nov, [facility] [address] [facility] [id number], [place] [address] Oct, [facility] [address] [id number], [place] [address] Oct, [facility] [place] [address] [id number][place] [id number] Oct, [facility] [address] [facility] [id number], [place] [address] Oct, [facility] [address] [facility] [id number], [place] [address] Oct, [facility] [place] [address] [id number][place] [id number] Oct, [facility] [place] [address] [id number][place] [id number] Sep, [facility] [address] [facility] [id number], [place] [address] Sep, [facility] [place] [address] [address] [id number][place] [id number] Sep, [facility] [address] [facility] [id number], [place] [address] Sep, [facility] [place] [address] [place] [address] [id number][place] [id number] Aug, [facility] [address] [facility] [id number], [place] [address] Aug, [facility] [place] [address] [id number][place] [id number] Aug, [facility] [place] [address] [address] [id number][place] [id number] Jun, [facility] [place] [address] [address] [id number][place] [id number] Jun, [facility] [address] [facility] [id number], [place] [address] May, [facility] [place] [address] [id number], [place] [id number] Apr, [facility] [place] [address] [id number][place] [id number] March, [facility] [place] [address] [id number][place] [id number] Feb, [facility] [place] [address] [id number][place] [id number] Jan, [facility] [address] [facility] [id number] [place] [id number] Nov, [facility] [address] [facility] [id number], [place] [address] Sep, [facility] [address] [facility] [id number], [place] [address] Sep, [facility] [address] [id number], [place] [address] Aug, [facility] [address] [facility] [id number], [place] [address] Apr, [facility] [address] [facility] [id number], [place] [address] March, IMMUNIZATIONS No Known Immunizations SOCIAL HISTORY Never Assessed REASON FOR VISIT CHM- Depression/COPD f/u Kee CAN PLAN OF CARE Activity Details Follow Up 6 Months Reason: VITAL SIGNS Height 62 in 2018-07-10 Weight 175 lbs 2018-07-10 Temperature 99.2 degrees Fahrenheit 2018-07-10 Heart Rate 106 bpm 2018-07-10 Respiratory Rate 18 2018-07-10 Oximetry 96 % 2018-07-10 BMI 32.00 kg/m2 2018-07-10 Blood pressure systolic 118 mmHg 2018-07-10 Blood pressure diastolic 76 mmHg 2018-07-10 MEDICATIONS Medication Instructions Dosage Frequency Start Date End Date Duration Status ProAir HFA 108 (90 Base) MCG/ACT Inhalation every 4 hrs as needed 2 puffs 0 days Active EPINEPHrine 0.3 MG/0.3ML Injection PRN as directed Aug, Active Symbicort 160-4.5 MCG/ACT Inhalation Twice a day 2 puffs 12h Jul, Active Xolair 150 MG Active Seroquel 25 MG Orally at bedtime as needed 1 tablet 0 days Active Atorvastatin Calcium 20 mg Orally Once a day at bedtime 1 tablet May, 0 days Active Fluoxetine 40 mg Orally Once a day 2 capsule in the morning 24h 0 days Active Flonase 50 MCG/ACT Nasally 2 times a day 2 spray in each nostril 12h Active Singulair 10 mg Orally Once a day 1 tablet in the evening 24h 27 Khalif, 2017 0 days Active Omeprazole 40 mg Orally 2 times a day 1 capsule 12h 0 days Active Diclofenac Sodium 50 MG Orally Three times a day 1 tablet with food or milk 8h Jan, 0 days Active Levothyroxine Sodium 25 MCG Orally Once a day half a tablet on an empty stomach in the morning 24h May, 0 days Active Spiriva HandiHaler 18 MCG Inhalation Once a day 1 capsule 24h Active Gabapentin 300 MG Orally 3 times [...]
--- OUTSIDE RECORDS SUMMARY | 2018-11-11 16:45 | XMS REPORT ---
Author Author WERO BARKLEY [facility] Address [address] [place] [address] Care Team Providers Care Performance Architect Name Role Phone RUBIA WERO Unavailable PROBLEMS Type Condition ICD9-CM Code VGG74-DF Code Onset Dates Condition Status SNOMED Code Problem Hip bursitis, left M70.72 Active 05222362 Problem Moderate episode of recurrent major depressive disorder F33.1 Active 898431788 Problem Sciatic leg pain M54.30 Active 24965374 Problem Other depression F32.8 Active 18214578 Problem Osteoarthritis of both knees, unspecified osteoarthritis type M17.0 Active 063576003 Problem Chronic obstructive pulmonary disease, unspecified COPD type J44.9 Active 14636645 Problem Arthralgia of right temporomandibular joint M26.62 Active 27610963 ALLERGIES Substance Reaction Event Type Date Status Sulfamethoxazole nausea and vomiting Drug Allergy Aug, Active ENCOUNTERS Encounter Location Date Diagnosis [address] [id number] Aug, Breast cancer screening Z12.31 [id number] [place] [address] [id number] Aug, [facility] [address] [id number], [place] [address] Aug, [facility] [id number] [place] [address] [id number] Jul, [id number] [place] [address] [id number] Jul, Chronic obstructive pulmonary disease, unspecified COPD type J44.9 ; Osteoarthritis of both knees, unspecified osteoarthritis type M17.0 ; Moderate episode of recurrent major depressive disorder F33.1 and Sciatic leg pain M54.30 [facility] [id number] [place] [address] [id number] Jun, Moderate episode of recurrent major depressive disorder F33.1 ; Sciatic leg pain M54.30 and Chronic obstructive pulmonary disease, unspecified COPD type J44.9 [facility] [address] [id number], [place] [id number] Jun, [facility] [place] [address] [id number], [place] [id number] May, Sciatic leg pain M54.30 [facility] [place] [address] [id number], [place] [id number] May, Chronic obstructive pulmonary disease, unspecified COPD type J44.9 [facility] [address] [id number][place] [id number] May, [facility] [address] [id number], [place] [id number] Apr, Moderate episode of recurrent major depressive disorder F33.1 ; Sciatic leg pain M54.30 and Chronic obstructive pulmonary disease, unspecified COPD type J44.9 [facility] [address] [id number], [place] [id number] March, [facility] [address] [id number], [place] [id number] Feb, Sciatic leg pain M54.30 [facility] [address] [id number], [place] [id number] Feb, [facility] [place] [address] [id number], [place] 116017512 Dec, Moderate episode of recurrent major depressive disorder F33.1 ; Sciatic leg pain M54.30 ; Chronic obstructive pulmonary disease, unspecified COPD type J44.9 and Screening for thyroid disorder Z13.29 [facility] [address] [id number], [place] [id number] Dec, Chronic obstructive pulmonary disease, unspecified COPD type J44.9 [facility] [address] [id number], [place] 728331498 Nov, Sciatic leg pain M54.30 [facility] [address] [id number], [place] [id number] Oct, [facility] [address] [id number], [place] 189270670 Oct, Acute pain of right shoulder M25.511 [facility] [address] [id number], [place] [id number] Oct, Chronic obstructive pulmonary disease, unspecified COPD type J44.9 [facility] [address] [id number], [place] [id number] Oct, [facility] [id number] [place] [address] [id number] Sep, Chronic obstructive pulmonary disease, unspecified COPD type J44.9 and Sciatic leg pain M54.30 [facility] [id number] [place] [address] [id number] Aug, Moderate episode of recurrent major depressive disorder F33.1 and Chronic obstructive pulmonary disease, unspecified COPD type J44.9 [facility] [address] [id number], [place] [id number] Aug, Moderate episode of recurrent major depressive disorder F33.1 [facility] [address] [id number], [place] [id number] Jul, Other depression F32.8 and Chronic obstructive pulmonary disease, unspecified COPD type J44.9 [facility] [place] [address] [id number], [place] [id number] Jul, Moderate episode of recurrent major depressive disorder F33.1 [facility] [address] [id number], [place] [id number] Jun, [facility] [address] [id number], [place] [id number] Jun, Moderate episode of recurrent major depressive disorder F33.1 [facility] [address] [id number], [place] [id number] Jun, Moderate episode of recurrent major depressive disorder F33.1 [facility] [address] [id number], [place] 880409934 Jun, [facility] [place] [address] [id number], [place] 847008935 Jun, Sciatic leg pain M54.30 [facility] [address] [id number], [place] [id number] Jun, [facility] [address] [id number], [place] [id number] May, Screening for thyroid disorder Z13.29 and Screening for lipid disorders Z13.220 [facility] [address] [id number], [place] 138640817 May, Other depression F32.8 [facility] [id number] [place] [address] [id number] Apr, Sciatic leg pain M54.30 [facility] [address] [id number], [place] [id number] Apr, Screening for lipid disorders Z13.220 ; Screening for thyroid disorder Z13.29 and Chronic obstructive pulmonary disease, unspecified COPD type J44.9 [facility] [address] [id number], [place] 786056416 Apr, Screening for lipid disorders Z13.220 ; Screening for thyroid disorder Z13.29 and Chronic obstructive pulmonary disease, unspecified COPD type J44.9 [facility] [address] [id number], [place] 047293357 Apr, [facility] [id number] [place] [address] [id number] Apr, Chronic obstructive pulmonary disease, unspecified COPD type J44.[address] [facility] [address] [id number] [place] [address] March [facility] [address] [id number], [place] [id number] March, Sciatic leg pain M54.30 and Other depression F32.8 [facility] [address] [id number], [place] [id number] March, [facility] [address] [id number], [place] [id number] Jan, Other depression F32.8 and Sciatic leg pain M54.30 [facility] [address] [id number], [place] 388775456 Jan, Sciatic leg pain M54.30 [facility] [address] [id number], [place] [id number] Dec, Other depression F32.8 [facility] [address] [id number], [place] 460802514 Dec, Chronic obstructive pulmonary disease, unspecified COPD type J44.9 [facility] [address] [id number], [place] 687604477 Nov, [facility] [id number] [place] [address] [id number] Oct, Other depression F32.8 and Chronic obstructive pulmonary disease, unspecified COPD type J44.9 [facility] [id number] [place] [address] [id number] Aug, [facility] [place] [id number] [place] [address] [id number] Aug, Other depression F32.8 ; Arthralgia of right temporomandibular joint M26.62 and Encounter for immunization Z23 [facility] [id number] [place] [address] [id number] Aug, Encounter for well woman exam Z01.419 [facility] [id number], [place] 091013476 Jul, Other depression F32.8 and Arthralgia of right temporomandibular joint M26.62 [facility] [id number], [place] [id number] Jun, [facility] [address] [id number] [place] [address] Jun [facility] [id number], [place] [id number] Jun, [facility] [address] [id number], [place] 085531083 Jun, Other depression F32.8 and Urinary tract infection without hematuria, site unspecified N39.0 [facility] [id number], [place] [id number] Apr, [facility] [id number], [place] 305941525 Apr, Dysuria R30.0 [facility] [address] [facility] [id number] [address] March, [facility] [place] [id number], [place] [id number] March, Urinary tract infection, site unspecified N39.0 [facility] [place] [id number], [place] 349671077 March, Urinary tract infection, site unspecified N39.0 [facility] [place] [id number], [place] 643147764 Feb, [facility] [place] [id number], [place] 014763266 Feb, Headache R51 and Ear pain H92.09 [facility] [id number], [place] 420348317 Jan, Osteoarthritis of both knees, unspecified osteoarthritis type M17.0 and Hip bursitis, left M70.72 [facility] [id number], [place] [id number] Jan, [facility] [place] [id number], [place] 942195760 Dec, Unspecified arthropathy, site unspecified 716.90 and COPD (chronic obstructive pulmonary disease) 496 [facility] [id number], [place] 135382262 Dec, [facility] [address] [id number], [place] [id number] Nov, [facility] [id number], [place] [id number] Oct, [facility] [place] [address] [facility] [id number], [place] 279108950 Sep, [facility] [place] [address] [facility] [id number], [place] [id number] Sep, [facility] [address] [facility] [id number], [place] [id number] Aug, [facility] [address] [facility] [id number], [place] [id number] Aug, [facility] [place] [address] [facility] [id number] [place] [address] [id number] Aug, Urinary tract infection N39.0 and Shoulder strain, right, initial encounter S46.911A [facility] [id number] [place] [address] [id number] Aug, Screening breast examination Z12.39 and Encounter for immunization Z23 [facility] [id number], [place] 297843553 Aug, [facility] [id number] [place] [address] [id number] Aug, [facility] [id number] [place] [address] [id number] Jul, [facility] [id number] [place] [address] [id number] Jun, [facility] [id number] [place] [address] [id number] Jun, Allergic rhinitis, cause unspecified 477.9 and Cough 786.2 [facility] [id number] [place] [address] [id number] May, [facility] [id number] [place] [address] [id number] May, [facility] [id number] [place] [address] [id number] May, Visit for suture removal V58.32 [facility] [id number] [place] [address] [id number] May, Dog bite 879.8 [facility] [id number] [place] [address] [id number] Apr, Rib pain on right side 786.50 [facility] [id number], [place] [id number] Apr, [facility] [id number] [place] [address] [id number] Apr, Allergic rhinitis, cause unspecified 477.9 and Cough 786.2 [facility] [id number] [place] [address] [id number] March, [facility] [id number] [place] [address] [id number] March, [facility] [address] [id number], [place] [id number] March, [facility] [address] [id number], [place] [id number] March, [facility] [address] [id number], [place] [id number] March, Cough 786.2 and Shortness of breath 786.05 [facility] [id number], [place] [id number] March, [facility] [id number], [place] 038760495 March, Cough 786.2 ; COPD (chronic obstructive pulmonary disease) 496 and Allergic rhinitis, cause unspecified 477.9 [facility] [id number], [place] [id number] Feb, Allergic rhinitis, cause unspecified 477.9 ; Cough 786.2 and COPD ( chronic obstructive pulmonary disease) 496 [facility] [address]00565100[place], [place] [address]- [address] Feb, [facility] [address]00565100[place], [place] [address]- 6[address] Feb, [facility] [address] [id number], [place] [address]- 239[address] Jan, [facility] [address]00565100[place], [place] [address]- 113[address] Jan, [facility] [address]00565100[place], [place] [address]- 2541 Jan, [facility] [address] [id number], [place] [id number] Jan, [facility] [address]00565100[place], [place] [address]- 2546 Jan, [facility] [address] [id number], [place] [id number] Dec, [facility] [id number] [place] [address] Dec, 2014 [facility] [address] [id number] [place] [id number] Dec, [facility] [place] [facility] [address] [facility] [id number], [place] [address]- [address] Dec, [facility] [address] [id number] [place] [id number] Dec, [facility] [place] [facility] [address] [facility] [id number], [place] [address]- 4[address] Dec, [facility] [place] [facility] [address] [facility] [id number] [place] [address]- 6[address] Dec, [facility] [address] [facility] [id number], [place] [id number] Nov, [facility] [place] [facility] [address]00565100[place], [place] [address]- 78[address] Nov, [facility] [place] [facility] [address]00565100[place], [place] [address]- 3429 Nov, [facility] [address] [facility] [id number], [place] [id number] Nov, [facility] [place] [facility] [address]65[address], [place] [address]- 0014 Nov, [facility] [address] [facility] [id number], [place] [id number] Oct, [facility] [place] [facility] [address] [facility] [id number], [place] [address]- 97[address] Oct, [facility] [address] [id number], [place] [id number] Sep, [facility] [place] [facility] [address] [facility] [id number], [place] [address]- 7[address] Sep, [facility] [address] [id number], [place] [id number] Sep, [facility] [place] [facility] [address] [facility] [id number], [place] [address]- 5875 Sep, [facility] [address] [id number] [place] [id number] Aug, [facility] [place] [facility] [address] [id number] [place] [address]- 3084 Aug, [facility] [address] [id number] [place] [id number] Aug, [facility] [place] [facility] [address] [facility] [id number] [place] [address]- 5176 Aug, [facility] [place] [facility] [address] [id number] [place] [address]- 4356 Jul, [facility] [address] [id number] [place] [id number] Jul, [facility] [address] [id number] [place] 868393083 Jul, [facility] [address] [facility] [id number] [place] [id number] Jul, [facility] [place] [facility] [address] [facility] [id number], [place] [address]- 0476 Jul, [facility] [place] [facility] [address] [facility] [id number], [place] [address]- 6221 Jul, [facility] [place] [facility] [address] [facility] [id number], [place] [address]- 7608 Jul, [facility] [place] [facility] [address] [facility] [id number], [place] [address]- 3704 Jul, [facility] [address] [facility] [id number], [place] [id number] Jun, [facility] [place] [facility] [address] [facility] [id number], [place] [address]- 7886 Jun, [facility] [place] [facility] [address] [facility] [id number], [place] [address]- 0593 Jun, [facility] [address] [facility] [id number] [place] [id number] Jun, [facility] [place] [facility] [address] [facility] [id number], [place] [address]- 5824 Jun, [facility] [address] [id number] [place] [id number] Jun, [facility] [place] [facility] [address] [facility] [id number] [place] [address]- 2546 Jun, [facility] [address] [id number] [place] [id number] Apr, [facility] [place] [facility] [address] [facility] [id number] [place] [address]- 5136 Apr, [facility] [address] [id number] [place] [id number] Apr, [facility] [place] [facility] [address] [facility] [id number][place] [address]- 1326 Apr, [facility] [address] [facility] [id number] [place] [id number] Apr, [facility] [place] [facility] [address] [facility] [id number], [place] [address]- 8572 Apr, [facility] [place] [facility] [address] [facility] [id number], [place] [address]- 5612 March, [facility] [place] [facility] [address] [facility] [id number], [place] [address]- 3896 March, [facility] [address] [facility] [id number], [place] [id number] March, [facility] [address] [facility] [id number] [place] [id number] Feb, [facility] [place] [facility] [address] [facility] [id number], [place] [address]- 1195 Feb, [facility] [address] [id number] [place] [id number] Jan, [facility] [place] [facility] [address] [facility] [id number], [place] [address]- 5066 Jan, [facility] [address] [facility] [id number] [place] [id number] Dec, [facility] [place] [facility] [address] [facility] [id number], [place] [address]- 2011 Dec, [facility] [address] [facility] [id number] [place] 719376091 Dec, [facility] [place] [facility] [address] [facility] [id number] [place] [address]- 2546 Dec, [facility] [place] [facility] [address] [facility] [id number] [place] [address]- 2546 Dec, [facility] [address] [facility] [id number], [place] [address]- 2546 Dec, [facility] [address] [facility] [id number] [place] [id number] Nov, [facility] [place] [address] [facility] [id number], [place] [address]- 2546 Nov, [facility] [address] [id number], [place] [id number] Nov, [facility] [place] [address]00565100[place], [place] [address]- 2546 Nov, [facility] [address] [facility] [id number], [place] [id number] Nov, [facility] [place] [facility] [address]00565100[place], [place] [address]- 2546 Nov, [facility] [address] [id number], [place] [id number] Oct, [facility] [place] [facility] [address] [facility] [id number], [place] [address]- 2546 Oct, [facility] [place] [facility] [address] [facility] [id number][place] [address]- 2546 Oct, [facility] [address] [facility] [id number], [place] [id number] Oct, [facility] [place] [facility] [address] [facility] [id number], [place] [address]- 2546 Sep, [facility] [place] [facility] [address] [facility] [id number][place] [address] Sep, [facility] [address] [id number] [place] [id number] Sep, [facility] [address] [facility] [id number][place] [address] Sep, [facility] [address] [id number] [place] [id number] Aug, [facility] [address] [facility] [id number], [place] [address] Aug, [facility] [address] [id number] [place] [id number] Jul, [facility] [address] [id number] [place] [id number] Jul, [facility] [address] [id number] [place] [id number] Jun, [facility] [address] [id number] [place] [id number] May, [facility] [address] [id number] [place] [id number] May, [facility] [address] [facility] [id number][place] [address] May, [facility] [address] [id number] [place] [id number] Apr, [facility] [address] [id number] [place] [id number] Apr, [facility] [address] [id number] [place] [id number] March, [facility] [address] [id number] [place] [id number] Feb, [facility] [address] [id number] [place] [id number] Feb, [facility] [address] [id number] [place] [id number] Jan, [facility] [address] [id number] [place] [id number] Jan, [facility] [address] [id number] [place] [id number] Dec, [facility] [address] [id number][place] [id number] Nov, [facility] [address] [facility] [id number], [place] [address] Oct, [facility] [address] [facility] [id number], [place] [address] Oct, [facility] [address] [id number][place] [id number] Oct, [facility] [address] [facility] [id number], [place] [address] Oct, [facility] [address] [facility] [id number], [place] [address] Oct, [facility] [address] [facility] [id number][place] [id number] Oct, [facility] [address] [id number][place] [id number] Sep, [facility] [address] [facility] [id number], [place] [address] Sep, [facility] [address] [id number][place] [id number] Sep, [facility] [id number], [place] [address] Sep, [facility] [address] [facility] [id number][place] [id number] Aug, [facility] [address] [facility] [id number], [place] [address] Aug, [facility] [address] [address] [id number] [id number] Aug, [facility] [address] [id number][place] [id number] Jun, [facility] [address] [id number][place] [id number] Jun, [facility] [address] [facility] [id number] [address] May, [facility] [address] [id number] [id number] Apr, [facility] [address] [id number] [id number] March, [facility] [address] [id number] [id number] Feb, [facility] [address] [id number] [id number] Jan, [facility] [id number] [id number] Nov, [facility] [id number], [place] [address] Sep, [facility] [id number] [place] [id number] Sep, [facility] [id number] [place] [id number] Aug, [facility] [address] [id number], [place] [address] Apr, [facility] [id number], [place] [address] March, IMMUNIZATIONS No Known Immunizations SOCIAL HISTORY Never Assessed REASON FOR VISIT Breast exam Kee CAN PLAN OF CARE Activity Details Follow Up pending mammogram, prn Reason: VITAL SIGNS Height 62 in 2018-08-26 Weight 172.1 lbs 2018-08-26 Temperature 97.8 degrees Fahrenheit 2018-08-26 Heart Rate 88 bpm 2018-08-26 Respiratory Rate 18 2018-08-26 BMI 31.47 kg/m2 2018-08-26 Blood pressure systolic 110 mmHg 2018-08-26 Blood pressure diastolic 70 mmHg 2018-08-26 MEDICATIONS Medication Instructions Dosage Frequency Start Date End Date Duration Status Levothyroxine Sodium 25 MCG Orally Once a day half a tablet on an empty stomach in the morning 24h May, 0 days Active Singulair 10 mg Orally Once a day 1 tablet in the evening 24h Apr, 0 days Active Flonase 50 MCG/ACT Nasally 2 times a day 2 spray in each nostril 12h Active Omeprazole 40 mg Orally 2 times a day 1 capsule 12h 0 days Active Spiriva HandiHaler 18 MCG Inhalation Once a day 1 capsule 24h Active Atorvastatin Calcium 20 mg Orally Once a day at bedtime 1 tablet May, 0 days Active Seroquel 25 MG Orally at bedtime as needed 1 tablet 0 days Active Diclofenac Sodium 50 MG Orally Three times a day 1 tablet with food or milk 8h Jan, 0 days Active Xolair 150 MG Active EPINEPHrine 0.3 MG/0.3ML Injection PRN as directed Aug, Active Symbicort 160-4.5 MCG/ACT Inhalation Twice a day 2 puffs 12h Jul, Active ProAir HFA 108 (90 Base) MCG/ACT Inhalation every 4 hrs as needed 2 puffs 0 days Active Fluoxetine 40 mg Orally Once a day 2 capsule in the morning 24h 0 days Active Gabapentin 300 MG Orally [...]
--- OUTSIDE RECORDS SUMMARY | 2018-11-11 16:45 | XMS REPORT ---
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 Name Role Phone TARIQ TATE Unavailable PROBLEMS Type Condition ICD9-CM Code RCS36-OG Code Onset Dates Condition Status SNOMED Code Problem Hip bursitis, left M70.72 Active 71180711 Problem Moderate episode of recurrent major depressive disorder F33.1 Active 741965591 Problem Sciatic leg pain M54.30 Active 39319065 Problem Other depression F32.8 Active 65066912 Problem Osteoarthritis of both knees, unspecified osteoarthritis type M17.0 Active 717344398 Problem Chronic obstructive pulmonary disease, unspecified COPD type J44.9 Active 20355000 Problem Arthralgia of right temporomandibular joint M26.62 Active 35300039 ALLERGIES No Information ENCOUNTERS Encounter Location Date Diagnosis [facility] [id number] [place] [address] [id number] Jul, [id number] [place] [address] [id number] Jul, Chronic obstructive pulmonary disease, unspecified COPD type J44.9 ; Osteoarthritis of both knees, unspecified osteoarthritis type M17.0 ; Moderate episode of recurrent major depressive disorder F33.1 and Sciatic leg pain M54.30 [facility] [id number] [place] [address] [id number] Jun, Moderate episode of recurrent major depressive disorder F33.1 ; Sciatic leg pain M54.30 and Chronic obstructive pulmonary disease, unspecified COPD type J44.9 [facility] [id number] [place] [address] [id number] Jun, [facility] [address] [id number] [place] [address] [id number] May, Sciatic leg pain M54.30 [place] [address] [id number] [place] [address] [id number] May, Chronic obstructive pulmonary disease, unspecified COPD type J44.9 [facility] [address] [id number], [place] [id number] May, [facility] [address] [id number], [place] [id number] Apr, Moderate episode of recurrent major depressive disorder F33.1 ; Sciatic leg pain M54.30 and Chronic obstructive pulmonary disease, unspecified COPD type J44.9 [facility] [address] [id number], [place] [id number] March, [facility] [address] [id number], [place] [id number] Feb, Sciatic leg pain M54.30 [facility] [address] [id number], [place] [id number] Feb, [facility] [address] [id number], [place] [id number] Dec, Moderate episode of recurrent major depressive disorder F33.1 ; Sciatic leg pain M54.30 ; Chronic obstructive pulmonary disease, unspecified COPD type J44.9 and Screening for thyroid disorder Z13.29 [facility] [address] [id number], [place] [id number] Dec, Chronic obstructive pulmonary disease, unspecified COPD type J44.9 [facility] [address] [id number], [place] [id number] Nov, Sciatic leg pain M54.30 [facility] [address] [id number], [place] [id number] Oct, [facility] [address] [id number], [place] [id number] Oct, Acute pain of right shoulder M25.511 [facility] [address] [id number], [place] [id number] Oct, Chronic obstructive pulmonary disease, unspecified COPD type J44.9 [facility] [address] [id number], [place] [id number] Oct, [facility] [address] [id number] [place] [address] [id number] Sep, Chronic obstructive pulmonary disease, unspecified COPD type J44.9 and Sciatic leg pain M54.30 [facility] [address] [id number] [place] [address] [id number] Aug, Moderate episode of recurrent major depressive disorder F33.1 and Chronic obstructive pulmonary disease, unspecified COPD type J44.9 [facility] [address] [id number], [place] [id number] Aug, Moderate episode of recurrent major depressive disorder F33.1 [facility] [id number] [place] [address] [id number] Jul, Other depression F32.8 and Chronic obstructive pulmonary disease, unspecified COPD type J44.9 [facility] [id number] [place] [address] [id number] Jul, Moderate episode of recurrent major depressive disorder F33.1 [facility] [address] [id number], [place] [id number] Jun, [facility] [address] [id number] [place] [address] [id number] Jun, Moderate episode of recurrent major depressive disorder F33.1 [facility] [id number] [place] [address] [id number] Jun, Moderate episode of recurrent major depressive disorder F33.1 [facility] [address] [id number] [place] [address] [id number] Jun, [facility] [address] [id number] [place] [address] [id number] Jun, Sciatic leg pain M54.30 [facility] [address] [id number] [place] [address] [id number] Jun, [facility] [address] [id number] [place] [address] [id number] May, Screening for thyroid disorder Z13.29 and Screening for lipid disorders Z13.220 [facility] [address] [id number] [place] [address] [id number] May, Other depression F32.8 [facility] [address] [id number] [place] [address] [id number] Apr, Sciatic leg pain M54.30 [facility] [address] [id number], [place] [id number] Apr, Screening for lipid disorders Z13.220 ; Screening for thyroid disorder Z13.29 and Chronic obstructive pulmonary disease, unspecified COPD type J44.9 [facility] [address] [id number] [place] [address] [id number] Apr, Screening for lipid disorders Z13.220 ; Screening for thyroid disorder Z13.29 and Chronic obstructive pulmonary disease, unspecified COPD type J44.9 [facility] [address] [id number], [place] [id number] Apr, [facility] [id number] [place] [address] [id number] Apr, Chronic obstructive pulmonary disease, unspecified COPD type J44.9 [facility] [address]00565[address] [address] March [facility] [id number] [place] [address] [id number] March, Sciatic leg pain M54.30 and Other depression F32.8 [facility] [address] [id number] [place] [address] [id number] March, [facility] [id number] [place] [address] [id number] Jan, Other depression F32.8 and Sciatic leg pain M54.30 [facility] [address] [id number] [place] [address] [id number] Jan, Sciatic leg pain M54.30 [facility] [address] [id number], [place] [id number] Dec, Other depression F32.8 [facility] [address] [id number] [place] [address] [id number] Dec, Chronic obstructive pulmonary disease, unspecified COPD type J44.9 [facility] [address] [id number], [place] [id number] Nov, [facility] [id number] [place] [address] [id number] Oct, Other depression F32.8 and Chronic obstructive pulmonary disease, unspecified COPD type J44.9 [facility] [id number] [place] [address] [id number] Aug, [facility] [id number] [place] [address] [id number] Aug, Other depression F32.8 ; Arthralgia of right temporomandibular joint M26.62 and Encounter for immunization Z23 [facility] [id number] [place] [address] [id number] Aug, Encounter for well woman exam Z01.419 [facility] [place] [id number] [place] [address] [id number] Jul, Other depression F32.8 and Arthralgia of right temporomandibular joint M26.62 [facility] [id number], [place] [id number] Jun, [facility] [id number] [place] [address] Jun [facility] [id number], [place] [id number] Jun, [facility] [id number] [place] [address] [id number] Jun, Other depression F32.8 and Urinary tract infection without hematuria, site unspecified N39.0 [facility] [id number], [place] [id number] Apr, [facility] [id number], [place] [id number] Apr, Dysuria R30.0 [facility] [address]00565100[place] [address] March, [facility] [id number] [place] [address] [id number] March, Urinary tract infection, site unspecified N39.0 [facility] [id number], [place] [id number] March, Urinary tract infection, site unspecified N39.0 [facility]00565100[place] [id number] Feb, [facility] [id number], [place] [id number] Feb, Headache R51 and Ear pain H92.09 [facility] [id number], [place] [id number] Jan, Osteoarthritis of both knees, unspecified osteoarthritis type M17.0 and Hip bursitis, left M70.72 [facility] [id number], [place] [id number] Jan, [facility] [id number], [place] 436952551 Dec, Unspecified arthropathy, site unspecified 716.90 and COPD (chronic obstructive pulmonary disease) 496 [facility] [id number], [place] [id number] Dec, [address]00565100[place], [place] [id number] Nov, [facility] [id number] [place] [address] [id number] Oct, [facility] [id number] [place] [address] [id number] Sep, [place] [id number] [place] [address] [id number] Sep, [address]00565100[place], [place] [id number] Aug, [address] [id number], [place] [id number] Aug, [facility] [address] [facility] [id number], [place] [id number] Aug, Urinary tract infection N39.0 and Shoulder strain, right, initial encounter S46.911A [address]00565100[place], [place] [id number] Aug, Screening breast examination Z12.39 and Encounter for immunization Z23 [place] [id number] [id number] 08 Aug, 2015 [place] [address]00565100[place], [place] [id number] Aug, [facility] [address] [id number], [place] [id number] Jul, [facility] [id number], [place] [id number] Jun, [facility] [id number], [place] [id number] Jun, Allergic rhinitis, cause unspecified 477.9 and Cough 786.2 [facility] [id number], [place] [id number] May, [facility] [id number], [place] [id number] May, [facility] [id number], [place] 337846042 May, Visit for suture removal V58.32 [facility] [id number], [place] 669731823 May, Dog bite 879.8 [facility] [id number], [place] [id number] Apr, Rib pain on right side 786.50 [facility] [id number], [place] [id number] Apr, [facility] [id number], [place] [id number] Apr, Allergic rhinitis, cause unspecified 477.9 and Cough 786.2 [facility] [id number], [place] [id number] March, [facility] [address] [id number], [place] [id number] March, [facility] [address] [id number], [place] 577162300 March, [facility] [id number], [place] [id number] March, [facility] [address] [id number], [place] 401784170 March, Cough 786.2 and Shortness of breath 786.05 [facility] [address] [id number], [place] [id number] March, [facility] [address] [id number] [place] [id number] March, Cough 786.2 ; COPD (chronic obstructive pulmonary disease) 496 and Allergic rhinitis, cause unspecified 477.9 [facility] [address] [id number], [place] [id number] Feb, Allergic rhinitis, cause unspecified 477.9 ; Cough 786.2 and COPD ( chronic obstructive pulmonary disease) 496 [facility] [address]00565100[place] [address] 2546 Feb, [facility] [place] [facility] [id number] [place] [address] 31300 2546 Feb, [facility] [address] [id number] [address]- 8[address] Jan, [facility] [place] [facility] [address] [id number] [address] 2546 Jan, [facility] [address]00565100[place] [address]- 1487 Jan, [facility] [id number], [place] [id number] Jan, [facility] [address]00565100[place] [address]- 5[address] Jan, [facility] [id number], [place] 693128735 Dec, [facility] [address]00565100[place] [address]- 2546 Dec, [facility] [address] [id number], [place] [id number] Dec, [facility] [address]00565100[place] [address]- 2546 Dec, [facility] [address] [id number], [place] [id number] Dec, [facility] [place] [facility] [address] [id number] [address]- 7586 Dec, [facility] [place] [facility] [address] [facility] [id number] [place] [address]- 8648 Dec, [facility] [address] [id number], [place] [id number] Nov, [facility] [place] [facility] [address] [facility] [id number] [address]- 0849 Nov, [facility] [place] [facility] [address] [facility] [id number] [place] [address]- 2468 Nov, [facility] [address] [facility] [id number], [place] 744473067 Nov, [facility] [place] [facility] [address] [facility] [id number] [place] [address]- 7461 Nov, [facility] [address] [facility] [id number], [place] [id number] Oct, [facility] [place] [facility] [address] [facility] [id number] [address]- 6314 Oct, [facility] [address] [facility] [id number], [place] 722373913 Sep, [facility] [place] [facility] [address] [facility] [id number] [place] [address]- 3117 Sep, [facility] [address] [facility] [id number], [place] [id number] Sep, [facility] [place] [facility] [address] [facility] [id number] [place] [address]- 3[address] Sep, [facility] [address] [facility] [id number], [place] [id number] Aug, [facility] [place] [facility] [address] [facility] [id number] [place] [address]- 285[address] Aug, [facility] [address] [id number], [place] 002646863 Aug, [facility] [place] [facility] [address] [facility] [id number] [address]- 47[address] Aug, [facility] [place] [facility] [address] [id number] [place]- [address] Jul, [facility] [address] [id number] [place] [id number] Jul, [facility] [address] [id number] [place] [id number] Jul, [facility] [address] [id number] [place] [id number] Jul, [facility] [place] [facility] [address] [facility] [id number] [place] [address]- 7102 Jul, [facility] [place] [facility] [address] [facility] [id number] [place] [address]- 9729 Jul, [facility] [place] [facility] [address] [facility] [id number] [address]- 1981 Jul, [facility] [place] [facility] [address]00565100[place] [address]- 2638 Jul, [facility] [address] [facility] [id number], [place] [id number] Jun, [facility] [place] [facility] [address] [facility] [id number] [address]- 6[address] Jun, [facility] [place] [facility] [address] [facility] [id number] [address] 1941 Jun, [facility] [address] [id number], [place] 366881010 Jun, [facility] [place] [facility] [address] [facility] [id number] [address]- 1264 Jun, [facility] [address] [id number] [place] [id number] Jun, [facility] [place] [facility] [address] [facility] [id number] [address]- 8158 Jun, [facility] [address] [id number], [place] 170920653 Apr, [facility] [place] [facility] [address] [facility] [id number] [address]- 8776 Apr, [facility] [address] [facility] [id number] [place] 213566885 Apr, [facility] [place] [facility] [address] [facility] [id number] [place] [address]- 6286 Apr, [facility] [address] [facility] [id number] [place] 744724247 Apr, [facility] [place] [facility] [address]00565100[place] [address]- 8173 Apr, [facility] [place] [facility] [address] [id number] [place] [address]- 2769 March, [facility] [place] [facility] [address] [place] [address]- 9284 March, [facility] [address] [id number] [place] [id number] March, [facility] [address] [id number] [place] 916445429 Feb, [facility] [place] [facility] [address]00565100[place] [address]- 6723 Feb, [facility] [address] [facility] [id number] [place] [id number] Jan, [facility] [place] [facility] [address]00565100[place] [address]- 2453 Jan, [facility] [id number], [place] 624381629 Dec, [facility] [place] [facility] [address] [facility] [id number] [address]- 3297 Dec, [facility] [address] [facility] [id number] [place] 710089577 Dec, [facility] [place] [facility] [address] [id number] [address]- 0785 Dec, [facility] [place] [facility] [address]00565100[place] [address]- 7615 Dec, [facility] [place] [facility] [address] [facility] [id number] [address]- 2546 Dec, [facility] [address] [facility] [id number], [place] 940269654 Nov, [facility] [place] [facility] [address] [facility] [id number] [address] 2546 Nov, [facility] [address] [facility] [id number], [place] 817783513 Nov, [facility] [place] [facility] [address] [facility] [id number] [address] 2546 Nov, [facility] [address] [facility] [id number], [place] 480961046 Nov, [facility] [place] [facility] [address] [facility] [id number] [address] 2546 Nov, [facility] [id number], [place] 917205388 Oct, [facility] [place] [facility] [address] [facility] [id number] [address]- 9646 Oct, [facility] [place] [facility] [address]00565100[place] [address]- 2516 Oct, [facility] [id number], [place] 604130713 Oct, [facility] [place] [facility] [address]00565100[place] [address]- 6106 Sep, [facility] [address] [facility] [id number] [address] Sep, [facility] [address] [facility] [id number][place] [id number] Sep, [facility] [address] [facility] [id number] [place] [address] Sep, [facility] [address] [facility] [id number][place] [id number] Aug, [facility] [address] [id number] [address] Aug, [facility] [address] [id number] [place] [id number] Jul, [facility] [address] [id number] [place] [id number] Jul, [facility] [address] [id number] [place] [id number] Jun, [facility] [address] [id number] [place] [id number] May, [facility] [address] [id number] [place] [id number] May, [facility] [address] [facility] [id number] [place] [address] May, [facility] [address] [id number] [place] [id number] Apr, [facility] [address] [id number] [place] [id number] Apr, [facility] [address] [id number] [place] [id number] March, [facility] [address] [id number] [place] [id number] Feb, [facility] [address] [id number] [place] [id number] Feb, [facility] [address] [id number] [place] [id number] Jan, [facility] [address] [id number] [place] [id number] Jan, [facility] [address] [id number] [place] [id number] Dec, [facility] [address] [id number] [place] [id number] Nov, [facility] [address] [id number] [address] Oct, [facility] [address] [facility] [id number] [address] Oct, [facility] [address] [id number][place] [id number] Oct, [facility] [address] [facility] [id number] [place] [address] Oct, [facility] [address] [facility] [id number] [place] [address] Oct, [facility] [address] [id number] [place] [id number] Oct, [facility] [address] [id number] [place] [id number] Sep, [facility] [address] [facility] [id number] [place] [address] Sep, [facility] [address] [id number] [place] [id number] Sep, [facility] [address] [facility] [id number] [place] [address] Sep, [facility] [address] [id number][place] [id number] Aug, [facility] [address] [facility] [id number] [place] [address] Aug, [facility] [address] [id number][place] [id number] Aug, [facility] [address] [id number][place] [id number] Jun, [facility] [address] [id number][place] [id number] Jun, [facility] [facility] [address] [facility] [id number] [address] May, [facility] [address] [id number][place] [id number] Apr, [facility] [address] [id number] [place] [id number] March, [facility] [address] [id number] [place] [id number] Feb, [facility] [address] [id number][place] [id number] Jan, [facility] [address] [id number] [place] [id number] Nov, [facility] [address] [facility] [id number] [place] [id number] Sep, [facility] [address] [facility] [id number] [place] [id number] Sep, [facility] [address] [facility] [id number] [place] [address] Aug, [facility] [address] [facility] [id number] [place] [id number] Apr, [facility] [address] [facility] [id number] [place] [address] March, IMMUNIZATIONS No Known Immunizations SOCIAL HISTORY [...]
--- OUTSIDE RECORDS SUMMARY | 2018-11-11 16:46 | XMS REPORT ---
Author Author TARIQ TATE [facility] Address [address] [place] [address] Care Team Providers Care Mirror Polisher Name Role Phone TARIQ TATE Unavailable PROBLEMS Type Condition ICD9-CM Code SEB68-TZ Code Onset Dates Condition Status SNOMED Code Problem Hip bursitis, left M70.72 Active 99296498 Problem Moderate episode of recurrent major depressive disorder F33.1 Active 282548229 Problem Sciatic leg pain M54.30 Active 92538368 Problem Other depression F32.8 Active 31401163 Problem Osteoarthritis of both knees, unspecified osteoarthritis type M17.0 Active 558763680 Problem Chronic obstructive pulmonary disease, unspecified COPD type J44.9 Active 46075665 Problem Arthralgia of right temporomandibular joint M26.62 Active 50776166 ALLERGIES No Information ENCOUNTERS Encounter Location Date Diagnosis [facility] [id number] [place] [address] [id number] Jul, [id number] [place] [address] [id number] Jul, Chronic obstructive pulmonary disease, unspecified COPD type J44.9 ; Osteoarthritis of both knees, unspecified osteoarthritis type M17.0 ; Moderate episode of recurrent major depressive disorder F33.1 and Sciatic leg pain M54.30 [facility] [id number] [place] [address] [id number] Jun, Moderate episode of recurrent major depressive disorder F33.1 ; Sciatic leg pain M54.30 and Chronic obstructive pulmonary disease, unspecified COPD type J44.9 [facility] [address] [id number] [place] [address] [id number] Jun, [facility] [address] [id number] [place] [address] [id number] May, Sciatic leg pain M54.30 [place] [id number] [place] [address] [phone] May, Chronic obstructive pulmonary disease, unspecified COPD type J44.9 [facility] [address] [id number][place] [id number] May, [facility] [address] [id number], [place] 323766923 Apr, Moderate episode of recurrent major depressive disorder F33.1 ; Sciatic leg pain M54.30 and Chronic obstructive pulmonary disease, unspecified COPD type J44.9 [facility] [address] [id number], [place] 578778084 March, [facility] [address] [id number], [place] [id number] Feb, Sciatic leg pain M54.30 [facility] [address] [id number], [place] [id number] Feb, [facility] [address] [id number], [place] 865752377 Dec, Moderate episode of recurrent major depressive disorder F33.1 ; Sciatic leg pain M54.30 ; Chronic obstructive pulmonary disease, unspecified COPD type J44.9 and Screening for thyroid disorder Z13.29 [facility] [address] [id number], [place] [id number] Dec, Chronic obstructive pulmonary disease, unspecified COPD type J44.9 [facility] [address] [id number], [place] [id number] Nov, Sciatic leg pain M54.30 [facility] [address] [id number], [place] [id number] Oct, [facility] [address] [id number], [place] 194729324 Oct, Acute pain of right shoulder M25.511 [facility] [address] [id number], [place] 350169202 Oct, Chronic obstructive pulmonary disease, unspecified COPD type J44.9 [facility] [address] [id number], [place] 500037349 Oct, [facility] [address] [id number] [place] [address] [id number] Sep, Chronic obstructive pulmonary disease, unspecified COPD type J44.9 and Sciatic leg pain M54.30 [facility] [id number] [place] [address] [id number] Aug, Moderate episode of recurrent major depressive disorder F33.1 and Chronic obstructive pulmonary disease, unspecified COPD type J44.9 [facility] [address] [id number], [place] 512652565 Aug, Moderate episode of recurrent major depressive disorder F33.1 [facility] [id number] [place] [address] [id number] Jul, Other depression F32.8 and Chronic obstructive pulmonary disease, unspecified COPD type J44.9 [facility] [address] [id number] [place] [address] [id number] Jul, Moderate episode of recurrent major depressive disorder F33.1 [facility] [place] [address] [facility] [address] [id number], [place] [id number] Jun, [facility] [id number] [place] [address] [id number] Jun, Moderate episode of recurrent major depressive disorder F33.1 [facility] [address] [id number] [place] [address] [id number] Jun, Moderate episode of recurrent major depressive disorder F33.1 [facility] [address] [id number] [place] [address] [id number] Jun, [facility] [address] [id number] [place] [address] [id number] Jun, Sciatic leg pain M54.30 [facility] [address] [id number] [place] [address] [id number] Jun, [facility] [address] [id number] [place] [address] [id number] May, Screening for thyroid disorder Z13.29 and Screening for lipid disorders Z13.220 [facility] [address] [id number] [place] [address] [id number] May, Other depression F32.8 [facility] [address] [id number] [place] [address] [id number] Apr, Sciatic leg pain M54.30 [facility] [address] [id number], [place] [phone] Apr, Screening for lipid disorders Z13.220 ; Screening for thyroid disorder Z13.29 and Chronic obstructive pulmonary disease, unspecified COPD type J44.9 [facility] [address] [id number] [place] [address] [id number] Apr, Screening for lipid disorders Z13.220 ; Screening for thyroid disorder Z13.29 and Chronic obstructive pulmonary disease, unspecified COPD type J44.9 [facility] [address] [id number], [place] [id number] Apr, [facility] [id number] [place] [address] [id number] Apr, Chronic obstructive pulmonary disease, unspecified COPD type J44.9 [facility] [address]00565100[place] [address] March [facility] [address] [id number] [place] [address] [id number] March, Sciatic leg pain M54.30 and Other depression F32.8 [facility] [address] [id number] [place] [address] [id number] March, [facility] [id number] [place] [address] [phone] Jan, Other depression F32.8 and Sciatic leg pain M54.30 [facility] [address] [id number] [place] [address] [id number] Jan, Sciatic leg pain M54.30 [facility] [address] [id number], [place] [id number] Dec, Other depression F32.8 [facility] [address] [id number] [place] [address] [id number] Dec, Chronic obstructive pulmonary disease, unspecified COPD type J44.9 [facility] [address] [id number], [place] [id number] Nov, [facility] [id number] [place] [address] [id number] Oct, Other depression F32.8 and Chronic obstructive pulmonary disease, unspecified COPD type J44.9 [facility] [id number] [place] [address] [id number] Aug, [facility] [id number] [place] [address] [id number] Aug, Other depression F32.8 ; Arthralgia of right temporomandibular joint M26.62 and Encounter for immunization Z23 [facility] [id number] [place] [address] [id number] Aug, Encounter for well woman exam Z01.419 [facility] [place] [address] [id number] [place] [address] [id number] Jul, Other depression F32.8 and Arthralgia of right temporomandibular joint M26.62 [facility] [id number], [place] [id number] Jun, [facility] [id number] [place] [address] Jun [facility] [id number], [place] [phone] Jun, [facility] [id number] [place] [address] [id number] Jun, Other depression F32.8 and Urinary tract infection without hematuria, site unspecified N39.0 [facility] [id number], [place] [id number] Apr, [facility] [id number], [place] [id number] Apr, Dysuria R30.0 [facility] [address]00565100[place], [place] 16700[address]- [address] March, [facility] [id number] [place] [address] [id number] March, Urinary tract infection, site unspecified N39.0 [facility] [id number], [place] [id number] March, Urinary tract infection, site unspecified N39.0 [facility]00565100[place], [place] [id number] Feb, [facility] [id number], [place] 787070704 Feb, Headache R51 and Ear pain H92.09 [facility] [id number], [place] 264968219 Jan, Osteoarthritis of both knees, unspecified osteoarthritis type M17.0 and Hip bursitis, left M70.72 [facility] [id number], [place] [phone] Jan, [facility] [id number], [place] [id number] Dec, Unspecified arthropathy, site unspecified 716.90 and COPD (chronic obstructive pulmonary disease) 496 [facility] [id number], [place] 638121348 Dec, [address]00565100[place], [place] [id number] Nov, [facility] [id number] [place] [address] [id number] Oct, [facility] [id number] [place] [address] [id number] Sep, [place] [id number] [place] [address] [id number] Sep, [address]00565100[place], [place] 867408468 Aug, [address] [id number], [place] 328201819 Aug, [facility] [address] [facility] [id number], [place] 253983107 Aug, Urinary tract infection N39.0 and Shoulder strain, right, initial encounter S46.911A [address]00565100[place], [place] 922684738 Aug, Screening breast examination Z12.39 and Encounter for immunization Z23 [id number] 674452531 08 Aug, 2015 [facility] [address]00565100[place] [id number] Aug, [facility] [address] [id number], [place] 528302922 Jul, [facility] [id number], [place] [id number] Jun, [facility] [id number], [place] [id number] Jun, Allergic rhinitis, cause unspecified 477.9 and Cough 786.2 [facility] [id number], [place] [id number] May, [facility] [id number], [place] [id number] May, [facility] [id number], [place] 330544317 May, Visit for suture removal V58.32 [facility] [id number], [place] 773868767 May, Dog bite 879.8 [facility] [id number], [place] 797679896 Apr, Rib pain on right side 786.50 [facility] [id number], [place] [id number] Apr, [facility] [id number], [place] 785785268 Apr, Allergic rhinitis, cause unspecified 477.9 and Cough 786.2 [facility] [id number], [place] [id number] March, [facility] [address] [id number], [place] [id number] March, [facility] [address] [id number], [place] 169982362 March, [facility] [id number], [place] 322276546 March, [facility] [address] [id number], [place] [id number] March, Cough 786.2 and Shortness of breath 786.05 [facility] [address] [id number], [place] [id number] March, [facility] [address] [id number] [place] [id number] March, Cough 786.2 ; COPD (chronic obstructive pulmonary disease) 496 and Allergic rhinitis, cause unspecified 477.9 [facility] [address] [id number], [place] 574183478 Feb, Allergic rhinitis, cause unspecified 477.9 ; Cough 786.2 and COPD ( chronic obstructive pulmonary disease) 496 [facility] [address]00565100[place], [place] [address] 2546 Feb, [facility] [id number] [place] [address] 2546 Feb, [facility] [address] [id number], [place] [address]- 6[address] Jan, [facility] [place] [facility] [address] [id number], [place] [address] 2546 Jan, [facility] [address]00565100[place], [place] [address]- 2908 Jan, [facility] [id number], [place] [id number] Jan, [facility] [address]00565100[place], [place] [address]- 8116 Jan, [facility] [id number], [place] 106363301 Dec, [facility] [address]00565100[place], [place] [address]- 2546 Dec, [facility] [address] [id number], [place] [id number] Dec, [facility] [address]00565100[place], [place] [address]- 2546 Dec, [facility] [address] [id number], [place] [id number] Dec, [facility] [place] [facility] [address] [id number], [place] [address]- 7076 Dec, [facility] [place] [facility] [address] [facility] [id number], [place] [address]- 5839 Dec, [facility] [address] [id number], [place] 736389902 Nov, [facility] [place] [facility] [address] [facility] [id number], [place] [address]- 1198 Nov, [facility] [place] [facility] [address] [facility] [id number], [place] [address]- 8099 Nov, [facility] [address] [facility] [id number], [place] [id number] Nov, [facility] [place] [facility] [address] [facility] [id number], [place] [address]- 5461 Nov, [facility] [address] [facility] [id number], [place] 074235136 Oct, [facility] [place] [facility] [address] [facility] [id number], [place] [address]- 0377 Oct, [facility] [address] [facility] [id number], [place] 711856183 Sep, [facility] [place] [facility] [address] [facility] [id number], [place] [address]- 6360 Sep, [facility] [address] [facility] [id number], [place] [id number] Sep, [facility] [place] [facility] [address] [facility] [id number], [place] [address]- 1822 Sep, [facility] [address] [facility] [id number], [place] [id number] Aug, [facility] [place] [facility] [address] [facility] [id number], [place] [address]- 3122 Aug, [facility] [address] [id number], [place] 734738152 Aug, [facility] [place] [facility] [address] [facility] [id number], [place] [address]- 6655 Aug, [facility] [place] [facility] [address] [id number] [place]- 5759 Jul, [facility] [address] [id number] [place] [id number] Jul, [facility] [address] [id number] [place] 728121135 Jul, [facility] [address] [id number] [place] 489039259 Jul, [facility] [place] [facility] [address] [facility] [id number] [place] [address]- 4978 Jul, [facility] [place] [facility] [address] [facility] [id number] [address]- 5195 Jul, [facility] [place] [facility] [address] [facility] [id number], [place] [address]- 2555 Jul, [facility] [place] [facility] [address]00565100[place], [place] [address]- 9308 Jul, [facility] [address] [facility] [id number], [place] 908461376 Jun, [facility] [place] [facility] [address] [facility] [id number], [place] [address]- 1080 Jun, [facility] [place] [facility] [address] [facility] [id number], [place] [address]- 8063 Jun, [facility] [address] [id number], [place] 795345291 Jun, [facility] [place] [facility] [address] [facility] [id number], [place] [address]- 4647 Jun, [facility] [address] [id number] [place] [id number] Jun, [facility] [place] [facility] [address] [facility] [id number], [place] [address]- 5047 Jun, [facility] [address] [id number], [place] 626941089 Apr, [facility] [place] [facility] [address] [facility] [id number], [place] [address]- 4086 Apr, [facility] [address] [facility] [id number] [place] [id number] Apr, [facility] [place] [facility] [address] [facility] [id number] [place] [address]- 4546 Apr, [facility] [address] [facility] [id number] [place] 016993468 Apr, [facility] [place] [facility] [address]00565100[place], [place] [address]- 8572 Apr, [facility] [place] [facility] [address] [id number] [address]- 4809 March, [facility] [place] [facility] [address] [place] [address]- 7253 March, [facility] [address] [id number] [place] [id number] March, [facility] [address] [id number] [place] 917631783 Feb, [facility] [place] [facility] [address]00565100[place], [place] [address]- 7149 Feb, [facility] [address] [facility] [id number] [place] 679341466 Jan, [facility] [place] [facility] [address]00565100[place], [place] [address]- 1457 Jan, [facility] [id number], [place] [id number] Dec, [facility] [place] [facility] [address] [facility] [id number], [place] [address]- 6269 Dec, [facility] [address] [facility] [id number] [place] [id number] Dec, [facility] [place] [facility] [address] [id number], [place] [address]- 8793 Dec, [facility] [place] [facility] [address]00565100[place], [place] [address]- 6558 Dec, [facility] [place] [facility] [address] [facility] [id number], [place] [address]- 2546 Dec, [facility] [address] [facility] [id number], [place] 854504508 Nov, [facility] [place] [facility] [address] [facility] [id number], [place] [address] 2546 Nov, [facility] [address] [facility] [id number], [place] 403623584 Nov, [facility] [place] [facility] [address] [facility] [id number], [place] [address] 2546 Nov, [facility] [address] [facility] [id number], [place] 703078197 Nov, [facility] [place] [facility] [address] [facility] [id number], [place] [address] 2546 Nov, [facility] [id number], [place] [id number] Oct, [facility] [place] [facility] [address] [facility] [id number], [place] [address]- 7946 Oct, [facility] [place] [facility] [address]00565100[place], [place] [address]- 8896 Oct, [facility] [id number], [place] 217463878 Oct, [facility] [place] [facility] [address]00565100[place], [place] [address]- 7476 Sep, [facility] [place] [address] [facility] [id number], [place] [address] Sep, [facility] [address] [facility] [id number][place] [id number] Sep, [facility] [address] [facility] [id number], [place] [address] Sep, [facility] [address] [facility] [id number][place] [id number] Aug, [facility] [address] [id number], [place] [address] Aug, [facility] [address] [id number] [place] [id number] Jul, [facility] [address] [id number] [place] [id number] Jul, [facility] [address] [id number] [place] [id number] Jun, [facility] [address] [id number] [place] [id number] May, [facility] [address] [id number] [place] [id number] May, [facility] [place] [address] [facility] [id number], [place] [address] May, [facility] [address] [id number] [place] [id number] Apr, [facility] [address] [id number] [place] [id number] Apr, [facility] [address] [id number] [place] [id number] March, [facility] [address] [id number] [place] [id number] Feb, [facility] [address] [id number] [place] [id number] Feb, [facility] [address] [id number] [place] [id number] Jan, [facility] [address] [id number] [place] [id number] Jan, [facility] [address] [id number] [place] [id number] Dec, [facility] [address] [id number] [place] [id number] Nov, [facility] [place] [address] [id number], [place] [address] Oct, [facility] [place] [address] [facility] [id number], [place] [address] Oct, [facility] [address] [id number][place] [id number] Oct, [facility] [address] [facility] [id number], [place] [address] Oct, [facility] [address] [facility] [id number], [place] [address] Oct, [facility] [address] [id number] [place] [id number] Oct, [facility] [address] [id number] [place] [id number] Sep, [facility] [address] [facility] [id number], [place] [address] Sep, [facility] [address] [id number] [place] [id number] Sep, [facility] [address] [facility] [id number], [place] [address] Sep, [facility] [address] [id number][place] [id number] Aug, [facility] [address] [facility] [id number], [place] [address] Aug, [facility] [address] [id number][place] [id number] Aug, [facility] [address] [id number][place] [id number] Jun, [facility] [address] [id number][place] [id number] Jun, [facility] [address] [facility] [id number], [place] [address] May, [facility] [address] [id number][place] [id number] Apr, [facility] [address] [id number] [place] [id number] March, [facility] [address] [id number] [place] [id number] Feb, [facility] [address] [id number], [place] [id number] Jan, [facility] [address] [id number] [place] [id number] Nov, [facility] [address] [facility] [id number], [place] [address] Sep, [facility] [address] [facility] [id number], [place] [address] Sep, [facility] [address] [facility] [id number], [place] [address] Aug, [facility] [address] [facility] [id number], [place] [address] Apr, [facility] [address] [facility] [id number][place] [id number] March, IMMUNIZATIONS No Known Immunizations SOCIAL HISTORY Never Assessed REASON FOR VISIT med refill PLAN OF CARE VITAL SIGNS MEDICATIONS Medication Instructions Dosage Frequency Start Date End Date Duration Status Gabapentin 300 MG Orally 3 times a day 1 capsule 8h 0 days Active ProAir HFA 108 (90 Base) MCG/ACT Inhalation every 4 hrs as needed 2 puffs 0 days Active Fluoxetine 40 mg Orally Once a day 2 capsule in the morning 24h 0 days Active Seroquel 25 MG Orally at bedtime as needed 1 tablet 0 days Active Levothyroxine Sodium 25 MCG Orally Once a day half a tablet on an empty stomach in the morning 24h May, 0 days Active Omeprazole 40 mg Orally 2 times a day 1 capsule 12h 0 days Active RESULTS No Results PROCEDURES [...]
--- OUTSIDE RECORDS SUMMARY | 2018-11-11 16:46 | XMS REPORT ---
Author Author YVETTE BLOOM Organization [facility] Address [address] [place] [address] Care Team Providers Care Latent Print Examiner Name Role Phone YVETTE BLOOM Unavailable PROBLEMS Type Condition ICD9-CM Code [id number] Code Onset Dates Condition Status SNOMED Code Problem Hip bursitis, left M70.72 Active 25909104 Problem Moderate episode of recurrent major depressive disorder F33.1 Active 340923984 Problem Sciatic leg pain M54.30 Active 54699297 Problem Other depression F32.8 Active 80167556 Problem Osteoarthritis of both knees, unspecified osteoarthritis type M17.0 Active 571252203 Problem Chronic obstructive pulmonary disease, unspecified COPD type J44.9 Active 37883054 Problem Arthralgia of right temporomandibular joint M26.62 Active 29520479 ALLERGIES No Information ENCOUNTERS Encounter Location Date Diagnosis [place] [id number] [place] [address] [id number] Jul, Chronic obstructive pulmonary disease, unspecified COPD type J44.9 ; Osteoarthritis of both knees, unspecified osteoarthritis type M17.0 ; Moderate episode of recurrent major depressive disorder F33.1 and Sciatic leg pain M54.30 [place] [id number] [place] [address] [id number] Jun, Moderate episode of recurrent major depressive disorder F33.1 ; Sciatic leg pain M54.30 and Chronic obstructive pulmonary disease, unspecified COPD type J44.9 [address] [place] [address] [id number] Jun, [place] [id number] [place] [address] [id number] May, Sciatic leg pain M54.30 [address] [place] [address] [id number] May, Chronic obstructive pulmonary disease, unspecified COPD type J44.9 [facility] [address] [id number][place] [id number] May, [facility] [place] [address] [id number], [place] [id number] Apr, Moderate episode of recurrent major depressive disorder F33.1 ; Sciatic leg pain M54.30 and Chronic obstructive pulmonary disease, unspecified COPD type J44.9 [facility] [place] [address] [id number], [place] [id number] March, [facility] [place] [address] [id number], [place] [id number] Feb, Sciatic leg pain M54.30 [facility] [address] [id number], [place] [id number] Feb, [facility] [place] [address] [id number], [place] [id number] Dec, Moderate episode of recurrent major depressive disorder F33.1 ; Sciatic leg pain M54.30 ; Chronic obstructive pulmonary disease, unspecified COPD type J44.9 and Screening for thyroid disorder Z13.29 [facility] [place] [address] [id number], [place] [phone] Dec, Chronic obstructive pulmonary disease, unspecified COPD type J44.9 [facility] [place] [address] [id number], [place] [id number] Nov, Sciatic leg pain M54.30 [facility] [address] [id number], [place] [id number] Oct, [facility] [place] [address] [id number], [place] [id number] Oct, Acute pain of right shoulder M25.511 [facility] [place] [id number] [place] [address] [id number] Oct, Chronic obstructive pulmonary disease, unspecified COPD type J44.9 [facility] [place] [address] [id number], [place] [id number] Oct, [facility] [place] [address] [id number], [place] [id number] Sep, Chronic obstructive pulmonary disease, unspecified COPD type J44.9 and Sciatic leg pain M54.30 [facility] [place] [address] [id number], [place] [id number] Aug, Moderate episode of recurrent major depressive disorder F33.1 and Chronic obstructive pulmonary disease, unspecified COPD type J44.9 [facility] [address] [id number], [place] [id number] Aug, Moderate episode of recurrent major depressive disorder F33.1 [facility] [place] [id number] [place] [address] [id number] Jul, Other depression F32.8 and Chronic obstructive pulmonary disease, unspecified COPD type J44.9 [facility] [place] [id number] [place] [address] [id number] Jul, Moderate episode of recurrent major depressive disorder F33.1 [facility] [place] [address] [facility] [address] [id number], [place] [id number] Jun, [facility] [place] [id number] [place] [address] [id number] Jun, Moderate episode of recurrent major depressive disorder F33.1 [facility] [place] [id number] [place] [address] [id number] Jun, Moderate episode of recurrent major depressive disorder F33.1 [facility] [place] [address] [id number] [place] [address] [id number] Jun, [facility] [place] [address] [id number] [place] [address] [id number] Jun, Sciatic leg pain M54.30 [facility] [place] [id number] [place] [address] [id number] Jun, [facility] [place] [id number] [place] [address] [id number] May, Screening for thyroid disorder Z13.29 and Screening for lipid disorders Z13.220 [facility] [place] [id number] [place] [address] [id number] May, Other depression F32.8 [facility] [place] [id number] [place] [address] [id number] Apr, Sciatic leg pain M54.30 [facility] [place] [address] [id number], [place] [id number] Apr, Screening for lipid disorders Z13.220 ; Screening for thyroid disorder Z13.29 and Chronic obstructive pulmonary disease, unspecified COPD type J44.9 [facility] [place] [address] [id number], [place] [id number] Apr, Screening for lipid disorders Z13.220 ; Screening for thyroid disorder Z13.29 and Chronic obstructive pulmonary disease, unspecified COPD type J44.9 [facility] [place] [address] [id number], [place] [id number] Apr, [facility] [place] [id number] [place] [address] [id number] Apr, Chronic obstructive pulmonary disease, unspecified COPD type J44.[address] [facility] [address] [id number] [place] [address] March [facility] [place] [id number] [place] [address] [id number] March, Sciatic leg pain M54.30 and Other depression F32.8 [facility] [place] [address] [id number], [place] [id number] March, [facility] [place] [address] [id number] [place] [address] [id number] Jan, Other depression F32.8 and Sciatic leg pain M54.30 [facility] [place] [address] [id number], [place] [id number] Jan, Sciatic leg pain M54.30 [facility] [place] [address] [id number], [place] [id number] Dec, Other depression F32.8 [facility] [place] [address] [id number], [place] [id number] Dec, Chronic obstructive pulmonary disease, unspecified COPD type J44.9 [facility] [place] [address] [id number], [place] [id number] Nov, [facility] [place] [id number] [place] [address] [id number] Oct, Other depression F32.8 and Chronic obstructive pulmonary disease, unspecified COPD type J44.9 [facility] [place] [id number] [place] [address] [id number] Aug, [facility] [place] [address] [place] [id number] [place] [address] [id number] Aug, Other depression F32.8 ; Arthralgia of right temporomandibular joint M26.62 and Encounter for immunization Z23 [facility] [place] [address] [place] [id number] [place] [address] [id number] Aug, Encounter for well woman exam Z01.419 [facility] [place] [address] [place] [id number] [place] [address] [id number] Jul, Other depression F32.8 and Arthralgia of right temporomandibular joint M26.62 [facility] [place] [id number] [place] [address] [id number] Jun, [facility] [address] [id number] [place] [address] Jun [facility] [place] [id number], [place] [id number] Jun, [facility] [place] [id number] [place] [address] [id number] Jun, Other depression F32.8 and Urinary tract infection without hematuria, site unspecified N39.0 [facility] [place] [id number], [place] [id number] Apr, [facility] [place] [address] [place] [id number] [place] [address] [id number] Apr, Dysuria R30.0 [facility] [address]00565100[place], [place] [address]24[address]- [address] March, [facility] [place] [id number] [place] [address] [id number] March, Urinary tract infection, site unspecified N39.0 [facility] [place] [id number] [place] [address] [id number] March, Urinary tract infection, site unspecified N39.0 [facility] [place] [address] [place] [id number] [place] [address] [id number] Feb, [facility] [address] [place] [id number], [place] [id number] Feb, Headache R51 and Ear pain H92.09 [facility] [id number] [place] [address] [id number] Jan, Osteoarthritis of both knees, unspecified osteoarthritis type M17.0 and Hip bursitis, left M70.72 [facility] [id number] [place] [address] [id number] Jan, [facility] [address] [place] [id number] [place] [address] [id number] Dec, Unspecified arthropathy, site unspecified 716.90 and COPD (chronic obstructive pulmonary disease) 496 [facility] [id number] [place] [address] [id number] Dec, [facility] [id number] [place] [address] [id number] Nov, [facility] [id number] [place] [address] [id number] Oct, [facility] [id number] [place] [address] [id number] Sep, [place] [id number] [place] [address] [id number] Sep, [facility] [id number] [place] [address] [id number] Aug, [address] [id number], [place] [id number] Aug, [facility] [id number] [place] [address] [id number] Aug, Urinary tract infection N39.0 and Shoulder strain, right, initial encounter S46.911A [place] [id number] [place] [address] [id number] Aug, 2015 Screening breast examination Z12.39 and Encounter for immunization Z23 [place] [address] [place] [id number], [place] [id number] 08 Aug, 2015 [facility] [place] [id number] [place] [address] [id number] Aug, [facility] [id number], [place] [id number] Jul, [facility] [address] [place] [id number] [place] [address] [id number] Jun, [facility] [address] [place] [id number] [place] [address] [id number] Jun, Allergic rhinitis, cause unspecified 477.9 and Cough 786.2 [facility] [address] [place] [id number] [place] [address] [id number] May, [facility] [id number] [place] [address] [id number] May, [facility] [address] [place] [id number] [place] [address] [id number] May, Visit for suture removal V58.32 [facility] [address] [place] [id number] [place] [address] [id number] May, Dog bite 879.8 [facility] [address] [place] [id number] [place] [address] [id number] Apr, Rib pain on right side 786.50 [facility] [id number] [place] [address] [id number] Apr, [facility] [address] [place] [id number] [place] [address] [id number] Apr, Allergic rhinitis, cause unspecified 477.9 and Cough 786.2 [facility] [id number], [place] [id number] March, [facility] [id number] [place] [address] [id number] March, [facility] [id number] [place] [address] [id number] March, [facility] [address] [place] [id number] [place] [address] [id number] March, [facility] [address] [id number] [place] [address] [id number] March, Cough 786.2 and Shortness of breath 786.05 [facility] [address] [place] [id number] [place] [address] [id number] March, [facility] [place] [address] [place] [id number], [place] [id number] March, Cough 786.2 ; COPD (chronic obstructive pulmonary disease) 496 and Allergic rhinitis, cause unspecified 477.9 [facility] [place] [address] [place] [id number], [place] [id number] Feb, Allergic rhinitis, cause unspecified 477.9 ; Cough 786.2 and COPD ( chronic obstructive pulmonary disease) 496 [facility] [address]00565100[place], [place] [address] Feb, [facility] [address] [place] [id number] [place] [address] 2546 Feb, [facility] [address]00565100[place], [place] [address]- 2546 Jan, [facility] [address]00565100[place], [place] [address]- 4[address] Jan, [facility] [address]00565100[place], [place] [address]- 2546 Jan, [facility] [place] [id number], [place] [id number] Jan, [facility] [address]00565100[place], [place] [address]- 2546 Jan, [facility] [place] [address] [place] [id number], [place] [id number] Dec, [facility] [address]00565100[place], [place] [address]- 2546 Dec, [facility] [place] [address] [place] [id number], [place] [id number] Dec, [facility] [address]00565100[place], [place] [address]- 2546 Dec, [facility] [place] [address] [place] [id number], [place] [id number] Dec, [facility] [address]00565100[place], [place] [address]- 7166 Dec, [facility] [place] [facility] [address] [id number] [place] [address]- 97[address] Dec, [facility] [place] [address] [id number], [place] [id number] Nov, [facility] [place] [facility] [address] [facility] [id number] [place] [address]- 3228 Nov, [facility] [place] [facility] [address] [facility] [id number], [place] [address]- 5507 Nov, [facility] [place] [address] [facility] [id number] [place] [id number] Nov, [facility] [place] [facility] [address] [facility] [id number], [place] [address]- 5897 Nov, [facility] [place] [address] [facility] [id number], [place] [id number] Oct, [facility] [place] [facility] [address] [facility] [id number], [place] [address]- 2660 Oct, [facility] [place] [address] [facility] [id number], [place] [id number] Sep, [facility] [place] [facility] [address] [place] [id number], [place] [address]- 3296 Sep, [facility] [place] [address] [facility] [id number], [place] [id number] Sep, [facility] [place] [facility] [address] [facility] [id number], [place] [address]- 7076 Sep, [facility] [place] [address] [facility] [id number], [place] [id number] Aug, [facility] [place] [facility] [address] [facility] [id number], [place] [address]- 9949 Aug, [facility] [place] [address] [facility] [id number], [place] [id number] Aug, [facility] [place] [facility] [address] [facility] [id number], [place] [address]- 6057 Aug, [facility] [place] [facility] [address] [facility] [id number] [place] [address]- 0246 Jul, [facility] [place] [address] [id number] [place] [id number] Jul, [facility] [place] [address] [id number] [place] [id number] Jul, [facility] [address] [id number] [place] [id number] Jul, [facility] [place] [facility] [address] [facility] [id number] [place] [address]- 9153 Jul, [facility] [place] [facility] [address] [facility] [id number] [place] [address]- 2513 Jul, [facility] [place] [facility] [address] [facility] [id number], [place] [address]- 7460 Jul, [facility] [place] [facility] [address] [facility] [id number], [place] [address]- 9129 Jul, [facility] [place] [address] [facility] [id number], [place] [id number] Jun, [facility] [place] [facility] [address] [facility] [id number], [place] [address]- 0873 Jun, [facility] [place] [facility] [address] [facility] [id number], [place] [address]- 1064 Jun, [facility] [address] [facility] [id number] [place] [id number] Jun, [facility] [place] [facility] [address] [facility] [id number], [place] [address]- 1585 Jun, [facility] [address] [id number] [place] [id number] Jun, [facility] [place] [facility] [address] [facility] [id number], [place] [address]- 0190 Jun, [facility] [address] [facility] [id number] [place] 610003639 Apr, [facility] [place] [facility] [address] [facility] [id number], [place] [address]- 2658 Apr, [facility] [address] [facility] [id number], [place] [id number] Apr, [facility] [place] [facility] [address] [facility] [id number], [place] [address]- 5830 Apr, [facility] [address] [facility] [id number], [place] 102551845 Apr, [facility] [place] [facility] [address]00565100[place], [place] [address]- 2245 Apr, [facility] [place] [facility] [address]00565100[place], [place] [address]- 0304 March, [facility] [place] [facility] [address]00565100[place], [place] [address]- 7742 March, [facility] [address] [facility] [id number], [place] [id number] March, [facility] [address] [id number], [place] 569488185 Feb, [facility] [place] [facility] [address]00565100[place], [place] [address]- 1397 Feb, [facility] [address] [facility] [id number], [place] 833859559 Jan, [facility] [place] [facility] [address]00565100[place], [place] [address]- 2290 Jan, [facility] [address] [facility] [id number], [place] [id number] Dec, [facility] [place] [facility] [address]00565100[place], [place] [address]- 6106 Dec, [facility] [address] [facility] [id number], [place] [id number] Dec, [facility] [place] [facility] [address]00565100[place], [place] [address]- 1466 Dec, [facility] [place] [facility] [address] [id number], [place] [address]- 5670 Dec, [facility] [place] [facility] [address]00565100[place], [place] [address]- 8896 Dec, [facility] [address] [id number] [place] [id number] Nov, [facility] [place] [facility] [address] [facility] [id number][place] [address]- 0006 Nov, [facility] [address] [id number] [place] [id number] Nov, [facility] [place] [facility] [address] [facility] [id number], [place] [address]- 0206 Nov, [facility] [address] [id number] [place] [id number] Nov, [facility] [place] [facility] [address] [facility] [id number], [place] [address]- 9456 Nov, [facility] [address] [id number], [place] 758215402 Oct, [facility] [place] [facility] [address]00565100[place], [place] [address]- 1356 Oct, [facility] [place] [facility] [address] [facility] [id number], [place] [address]- 4577 Oct, [facility] [address] [facility] [id number], [place] 433845709 Oct, [facility] [place] [facility] [address]00565100[place], [place] [address]- 3743 Sep, [facility] [place] [facility] [address] [facility] [id number], [place] [address]- 0146 Sep, [facility] [address] [id number] [id number] Sep, [facility] [address] [facility] [id number], [place] [address] Sep, [facility] [place] [address] [facility] [id number][place] [id number] Aug, [facility] [address] [facility] [id number], [place] [address] Aug, [facility] [place] [address] [id number] [place] [id number] Jul, [facility] [place] [address] [id number] [place] [id number] Jul, [facility] [place] [address] [id number] [place] [id number] Jun, [facility] [place] [address] [id number] [place] [id number] May, [facility] [place] [address] [id number] [place] [id number] May, [facility] [address] [facility] [id number][place] [id number] May, [facility] [place] [address] [id number] [place] [id number] Apr, [facility] [place] [address] [id number] [place] [id number] Apr, [facility] [place] [address] [id number] [place] [id number] March, [facility] [place] [address] [id number] [place] [id number] Feb, [facility] [place] [address] [id number] [place] [id number] Feb, [facility] [place] [address] [id number] [place] [id number] Jan, [facility] [place] [address] [id number] [place] [id number] Jan, [facility] [place] [address] [id number] [place] [id number] Dec, [facility] [place] [address] [id number] [place] [id number] Nov, [facility] [address] [facility] [id number][place] [id number] [address] Oct, [facility] [address] [facility] [id number][place] [address] Oct, [facility] [place] [address] [id number] [place] [id number] Oct, [facility] [address] [facility] [id number], [place] [address] Oct, [facility] [address] [facility] [id number], [place] [address] Oct, [facility] [place] [address] [id number][place] [id number] Oct, [facility] [place] [address] [id number] [place] [id number] Sep, [facility] [address] [facility] [id number], [place] [address] Sep, [facility] [place] [address] [id number] [place] [id number] Sep, [facility] [address] [facility] [id number], [place] [address] Sep, [facility] [place] [address] [id number][place] [id number] Aug, [facility] [address] [facility] [id number], [place] [address] Aug, [facility] [place] [address] [id number] [place] [id number] Aug, [facility] [place] [address] [id number][place] [id number] Jun, [facility] [place] [address] [id number][place] [id number] Jun, [facility] [address] [facility] [id number] [address] May, [facility] [address] [id number] [id number] Apr, [facility] [address] [id number] [place] [id number] March, [facility] [address] [id number] [place] [id number] Feb, [facility] [address] [id number] [place] [id number] Jan, [facility] [address] [id number] [place] [id number] Nov, [facility] [address] [facility] [id number] [place] [address] Sep, [facility] [address] [id number], [place] [address] Sep, [facility] [address] [facility] [id number], [place] [address] Aug, [facility] [address] [facility] [id number][place] [address] Apr, [facility] [address] [facility] [id number], [place] [address] March, IMMUNIZATIONS No Known Immunizations SOCIAL HISTORY Never Assessed REASON FOR VISIT PALS PLAN OF CARE VITAL SIGNS MEDICATIONS Medication Instructions Dosage Frequency Start Date End Date Duration Status Advair Diskus 250 mcg-50 mcg Inhalation 2 [...]
--- OUTSIDE RECORDS SUMMARY | 2018-11-11 16:47 | XMS REPORT ---
Author Author TARIQ TATE [facility] Address [address] [place] [address] Care Team Providers Care Bindery Chief Name Role Phone TARIQ TATE Unavailable PROBLEMS Type Condition ICD9-CM Code SNO86-DL Code Onset Dates Condition Status SNOMED Code Problem Hip bursitis, left M70.72 Active 01299619 Problem Moderate episode of recurrent major depressive disorder F33.1 Active 339698086 Problem Sciatic leg pain M54.30 Active 29613637 Problem Other depression F32.8 Active 56521223 Problem Osteoarthritis of both knees, unspecified osteoarthritis type M17.0 Active 021974735 Problem Chronic obstructive pulmonary disease, unspecified COPD type J44.9 Active 71358131 Problem Arthralgia of right temporomandibular joint M26.62 Active 86115330 ALLERGIES No Information ENCOUNTERS Encounter Location Date Diagnosis [facility] [id number] [place] [address] [id number] Jul, [place] [id number] [place] [address] [id number] Jul, Chronic obstructive pulmonary disease, unspecified COPD type J44.9 ; Osteoarthritis of both knees, unspecified osteoarthritis type M17.0 ; Moderate episode of recurrent major depressive disorder F33.1 and Sciatic leg pain M54.30 [facility] [id number] [place] [address] [id number] Jun, Moderate episode of recurrent major depressive disorder F33.1 ; Sciatic leg pain M54.30 and Chronic obstructive pulmonary disease, unspecified COPD type J44.9 [facility] [id number] [place] [address] [id number] Jun, [facility] [address] [id number] [place] [address] [id number] May, Sciatic leg pain M54.30 [place] [id number] [place] [address] [id number] May, Chronic obstructive pulmonary disease, unspecified COPD type J44.9 [facility] [address] [id number] [place] [id number] May, [facility] [place] [address] [id number], [place] [id number] Apr, Moderate episode of recurrent major depressive disorder F33.1 ; Sciatic leg pain M54.30 and Chronic obstructive pulmonary disease, unspecified COPD type J44.9 [facility] [place] [address] [id number], [place] [id number] March, [facility] [address] [id number], [place] 737131674 Feb, Sciatic leg pain M54.30 [facility] [address] [id number] [place] [id number] Feb, [facility] [address] [id number], [place] 552779329 Dec, Moderate episode of recurrent major depressive disorder F33.1 ; Sciatic leg pain M54.30 ; Chronic obstructive pulmonary disease, unspecified COPD type J44.9 and Screening for thyroid disorder Z13.29 [facility] [address] [id number], [place] 026170919 Dec, Chronic obstructive pulmonary disease, unspecified COPD type J44.9 [facility] [place] [address] [id number], [place] 155230797 Nov, Sciatic leg pain M54.30 [facility] [address] [id number] [place] [id number] Oct, [facility] [address] [id number], [place] 349283755 Oct, Acute pain of right shoulder M25.511 [facility] [address] [id number], [place] [id number] Oct, Chronic obstructive pulmonary disease, unspecified COPD type J44.9 [facility] [place] [address] [id number], [place] [id number] Oct, [facility] [id number] [place] [address] [id number] Sep, Chronic obstructive pulmonary disease, unspecified COPD type J44.9 and Sciatic leg pain M54.30 [facility] [address] [id number] [place] [address] [id number] Aug, Moderate episode of recurrent major depressive disorder F33.1 and Chronic obstructive pulmonary disease, unspecified COPD type J44.9 [facility] [address] [address] [id number] [place] [id number] Aug, Moderate episode of recurrent major depressive disorder F33.1 [facility] [id number] [place] [address] [id number] Jul, Other depression F32.8 and Chronic obstructive pulmonary disease, unspecified COPD type J44.9 [facility] [id number] [place] [address] [id number] Jul, Moderate episode of recurrent major depressive disorder F33.1 [facility] [place] [address] [facility] [address] [id number] [place] [id number] Jun, [facility] [address] [id number] [place] [address] [id number] Jun, Moderate episode of recurrent major depressive disorder F33.1 [facility] [address] [id number] [place] [address] [id number] Jun, Moderate episode of recurrent major depressive disorder F33.1 [facility] [id number] [place] [address] [id number] Jun, [facility] [id number] [place] [address] [id number] Jun, Sciatic leg pain M54.30 [facility] [id number] [place] [address] [id number] Jun, [facility] [address] [id number] [place] [address] [id number] May, Screening for thyroid disorder Z13.29 and Screening for lipid disorders Z13.220 [facility] [id number] [place] [address] [id number] May, Other depression F32.8 [facility] [address] [id number] [place] [address] [id number] Apr, Sciatic leg pain M54.30 [facility] [place] [address] [id number], [place] [id number] Apr, Screening for lipid disorders Z13.220 ; Screening for thyroid disorder Z13.29 and Chronic obstructive pulmonary disease, unspecified COPD type J44.9 [facility] [place] [address] [id number] [place] [address] [id number] Apr, Screening for lipid disorders Z13.220 ; Screening for thyroid disorder Z13.29 and Chronic obstructive pulmonary disease, unspecified COPD type J44.9 [facility] [place] [address] [id number], [place] [id number] Apr, [facility] [place] [id number] [place] [address] [id number] Apr, Chronic obstructive pulmonary disease, unspecified COPD type J44.9 [facility] [address] [address] March [facility] [place] [address] [id number] [place] [address] [id number] March, Sciatic leg pain M54.30 and Other depression F32.8 [facility] [place] [address] [id number] [place] [address] [id number] March, [facility] [place] [id number] [place] [address] [id number] Jan, Other depression F32.8 and Sciatic leg pain M54.30 [facility] [place] [address] [id number] [place] [address] [id number] Jan, Sciatic leg pain M54.30 [facility] [place] [address] [id number], [place] 937677746 Dec, Other depression F32.8 [facility] [place] [address] [id number] [place] [address] [id number] Dec, Chronic obstructive pulmonary disease, unspecified COPD type J44.9 [facility] [place] [address] [id number], [place] [id number] Nov, [facility] [place] [id number] [place] [address] [id number] Oct, Other depression F32.8 and Chronic obstructive pulmonary disease, unspecified COPD type J44.9 [facility] [id number] [place] [address] [id number] Aug, [facility] [id number] [place] [address] [id number] Aug, Other depression F32.8 ; Arthralgia of right temporomandibular joint M26.62 and Encounter for immunization Z23 [facility] [place] [id number] [place] [address] [id number] Aug, Encounter for well woman exam Z01.419 [facility] [place] [id number] [place] [address] [id number] Jul, Other depression F32.8 and Arthralgia of right temporomandibular joint M26.62 [facility] [id number], [place] [id number] Jun, [facility] [id number] [place] [address] Jun [facility] [id number], [place] [id number] Jun, [facility] [place] [id number] [place] [address] [id number] Jun, Other depression F32.8 and Urinary tract infection without hematuria, site unspecified N39.0 [facility] [id number], [place] [id number] Apr, [facility] [id number], [place] [id number] Apr, Dysuria R30.0 [facility] [address]00565100[place] 55743559- [address] March, [facility] [id number] [place] [address] [id number] March, Urinary tract infection, site unspecified N39.0 [facility] [id number], [place] [id number] March, Urinary tract infection, site unspecified N39.0 [facility]00565100[place], [place] 168104811 Feb, [facility] [id number], [place] 921748654 Feb, Headache R51 and Ear pain H92.09 [facility] [id number], [place] 422841129 Jan, Osteoarthritis of both knees, unspecified osteoarthritis type M17.0 and Hip bursitis, left M70.72 [facility] [id number], [place] [id number] Jan, [facility] [id number], [place] 018112323 Dec, Unspecified arthropathy, site unspecified 716.90 and COPD (chronic obstructive pulmonary disease) 496 [facility] [id number], [place] 326284810 Dec, [address]00565100[place] [id number] Nov, [facility] [id number] [place] [address] [id number] Oct, [facility] [id number] [place] [address] [id number] Sep, [place] [id number] [place] [address] [id number] Sep, [address]00565100[place], [place] [id number] Aug, [address] [id number] [place] 960904484 Aug, [facility] [address] [facility] [id number], [place] [id number] Aug, Urinary tract infection N39.0 and Shoulder strain, right, initial encounter S46.911A [address]00565100[place], [place] 587394995 Aug, Screening breast examination Z12.39 and Encounter for immunization Z23 [place] [id number] [id number] 08 Aug, 2015 [facility] [address]00565100[place] 868[address]8799 Aug, [facility] [address] [id number], [place] 610504633 Jul, [facility] [id number], [place] 066195579 Jun, [facility] [id number], [place] [id number] Jun, Allergic rhinitis, cause unspecified 477.9 and Cough 786.2 [facility] [id number], [place] [id number] May, [facility] [id number], [place] 019206555 May, [facility] [id number], [place] [id number] May, Visit for suture removal V58.32 [facility] [id number], [place] [id number] May, Dog bite 879.8 [facility] [id number], [place] 775413145 Apr, Rib pain on right side 786.50 [facility] [id number], [place] 885140924 Apr, [facility] [id number], [place] 760470676 Apr, Allergic rhinitis, cause unspecified 477.9 and Cough 786.2 [facility] [id number], [place] 529858154 March, [facility] [address] [id number], [place] [id number] March, [facility] [address] [id number], [place] [id number] March, [facility] [id number], [place] 834398347 March, [facility] [address] [id number], [place] 532397508 March, Cough 786.2 and Shortness of breath 786.05 [facility] [address] [id number], [place] [id number] March, [facility] [place] [address] [id number] [place] [id number] March, Cough 786.2 ; COPD (chronic obstructive pulmonary disease) 496 and Allergic rhinitis, cause unspecified 477.9 [facility] [address] [id number], [place] 020468245 Feb, Allergic rhinitis, cause unspecified 477.9 ; Cough 786.2 and COPD ( chronic obstructive pulmonary disease) 496 [facility] [address]00565100[place], [place] [address] 2546 Feb, [facility] [place] [facility] [id number] [place] [address] 2546 Feb, [facility] [address] [id number], [place] [address]- 25[address] Jan, [facility] [place] [facility] [address] [id number], [place] [address] 2546 Jan, [facility] [address]00565100[place], [place] [address]- 7[address] Jan, [facility] [id number], [place] [id number] Jan, [facility] [address]00565100[place], [place] [address]- 2[address] Jan, [facility] [id number], [place] 960375463 Dec, [facility] [address]00565100[place], [place] [address]- 2546 Dec, [facility] [address] [id number], [place] 101460716 Dec, [facility] [address]00565100[place], [place] [address]- 25[address] Dec, [facility] [address] [id number], [place] 010926811 Dec, [facility] [place] [facility] [address] [id number], [place] [address]- 4856 Dec, [facility] [place] [facility] [address] [facility] [id number], [place] [address]- 2[address] Dec, [facility] [address] [id number], [place] 694759230 Nov, [facility] [place] [facility] [address] [facility] [id number], [place] [address]- 5[address] Nov, [facility] [place] [facility] [address] [facility] [id number], [place] [address]- 7116 Nov, [facility] [address] [facility] [id number], [place] [id number] Nov, [facility] [place] [facility] [address] [facility] [id number], [place] [address]- 4816 Nov, [facility] [address] [facility] [id number], [place] [id number] Oct, [facility] [place] [facility] [address] [facility] [id number], [place] [address]- 0400 Oct, [facility] [address] [facility] [id number], [place] 568678683 Sep, [facility] [place] [facility] [address] [facility] [id number], [place] [address]- 98[address] Sep, [facility] [address] [facility] [id number], [place] [id number] Sep, [facility] [place] [facility] [address] [facility] [id number], [place] [address]- 3113 Sep, [facility] [address] [facility] [id number], [place] 821500405 Aug, [facility] [place] [facility] [address] [facility] [id number], [place] [address]- 6949 Aug, [facility] [address] [id number], [place] [id number] Aug, [facility] [place] [facility] [address] [facility] [id number], [place] [address]- 7852 Aug, [facility] [place] [facility] [address] [id number] [place] [address] Jul, [facility] [address] [id number] [place] 390841918 Jul, [facility] [address] [id number] [place] [id number] Jul, [facility] [address] [id number] [place] [id number] Jul, [facility] [place] [facility] [address] [facility] [id number] [place] [address]- 1375 Jul, [facility] [place] [facility] [address] [facility] [id number] [place] [address]- 8867 Jul, [facility] [place] [facility] [address] [facility] [id number], [place] [address]- 5523 Jul, [facility] [place] [facility] [address]00565100[place], [place] [address]- 2271 Jul, [facility] [address] [facility] [id number], [place] 392172904 Jun, [facility] [place] [facility] [address] [facility] [id number], [place] [address]- 0710 Jun, [facility] [place] [facility] [address] [facility] [id number], [place] [address]- 5406 Jun, [facility] [address] [id number], [place] 442885251 Jun, [facility] [place] [facility] [address] [facility] [id number], [place] [address]- 4491 Jun, [facility] [address] [id number] [place] [id number] Jun, [facility] [place] [facility] [address] [facility] [id number][place] [address]- 1378 Jun, [facility] [address] [id number], [place] [id number] Apr, [facility] [place] [facility] [address] [facility] [id number], [place] [address]- 1046 Apr, [facility] [address] [facility] [id number] [place] 796132489 Apr, [facility] [place] [facility] [address] [facility] [id number] [place] [address]- 6106 Apr, [facility] [address] [facility] [id number] [place] 477690191 Apr, [facility] [place] [facility] [address]00565100[place], [place] [address]- 7[address] Apr, [facility] [place] [facility] [address] [id number] [place] [address]- 1356 March, [facility] [place] [facility] [address]65100[facility] [place] [address]- 8502 March, [facility] [address] [id number] [place] 905225274 March, [facility] [address] [id number] [place] [id number] Feb, [facility] [place] [facility] [address]00565100[place], [place] [address]- 4872 Feb, [facility] [address] [facility] [id number] [place] [id number] Jan, [facility] [place] [facility] [address]00565100[place], [place] [address]- 4847 Jan, [facility] [id number], [place] 082876565 Dec, [facility] [place] [facility] [address] [facility] [id number], [place] [address]- 0089 Dec, [facility] [address] [facility] [id number] [place] [id number] Dec, [facility] [place] [facility] [address] [id number], [place] [address]- 3879 Dec, [facility] [place] [facility] [address]00565100[place], [place] [address]- 2596 Dec, [facility] [place] [facility] [address] [facility] [id number], [place] [address]- 2546 Dec, [facility] [address] [facility] [id number], [place] 382805096 Nov, [facility] [place] [facility] [address] [facility] [id number], [place] [address] 2546 Nov, [facility] [address] [facility] [id number], [place] 519812516 Nov, [facility] [place] [facility] [address] [facility] [id number], [place] [address] 2546 Nov, [facility] [address] [facility] [id number], [place] 219856368 Nov, [facility] [place] [facility] [address] [facility] [id number], [place] [address] 2546 Nov, [facility] [id number], [place] 787336195 Oct, [facility] [place] [facility] [address] [facility] [id number], [place] [address]- 9466 Oct, [facility] [place] [facility] [address]00565100[place], [place] [address]- 2856 Oct, [facility] [id number], [place] [id number] Oct, [facility] [place] [facility] [address]00565100[place], [place] [address]- 5396 Sep, [facility] [place] [facility] [address] [facility] [id number], [place] [address]- 2536 Sep, [facility] [address] [facility] [id number], [place] 254124984 Sep, [facility] [place] [facility] [address] [facility] [id number], [place] [address] 2546 Sep, [facility] [address] [facility] [id number], [place] 639873069 Aug, [facility] [place] [facility] [address] [id number], [place] [address]- 6406 Aug, [facility] [address] [id number] [place] [id number] Jul, [facility] [address] [id number] [place] [id number] Jul, [facility] [address] [id number] [place] [id number] Jun, [facility] [address] [id number] [place] [id number] May, [facility] [address] [id number] [place] [id number] May, [facility] [address] [facility] [id number], [place] [address] May, [facility] [address] [id number] [place] [id number] Apr, [facility] [address] [id number] [place] [id number] Apr, [facility] [address] [id number] [place] [id number] March, [facility] [address] [id number] [place] [id number] Feb, [facility] [address] [id number] [place] [id number] Feb, [facility] [address] [id number] [place] [id number] Jan, [facility] [address] [id number] [place] [id number] Jan, [facility] [address] [id number] [place] [id number] Dec, [facility] [address] [id number] [place] [id number] Nov, [facility] [address] [id number] [address] Oct, [facility] [address] [facility] [id number], [place] [address] Oct, [facility] [address] [id number][place] [id number] Oct, [facility] [address] [facility] [id number], [place] [address] Oct, [facility] [address] [facility] [id number], [place] [address] Oct, [facility] [address] [id number] [place] [id number] Oct, [facility] [address] [id number] [place] [id number] Sep, [facility] [address] [facility] [id number], [place] [address] Sep, [facility] [address] [id number] [place] [id number] Sep, [facility] [address] [facility] [id number], [place] [address] Sep, [facility] [address] [id number][place] [id number] Aug, [facility] [address] [facility] [id number], [place] [address] Aug, [facility] [address] [id number][place] [id number] Aug, [facility] [address] [id number][place] [id number] Jun, [facility] [address] [id number][place] [id number] Jun, [facility] [address] [facility] [id number], [place] [address] May, [facility] [address] [id number][place] [id number] Apr, [facility] [address] [id number] [place] [id number] March, [facility] [address] [id number] [place] [id number] Feb, [facility] [address] [id number][place] [id number] Jan, [facility] [address] [id number] [place] [id number] Nov, [facility] [address] [facility] [id number][place] [id number] Sep, [facility] [address] [facility] [id number] [address] Sep, [facility] [address] [facility] [id number], [place] [address] Aug, [facility] [address] [facility] [id number][place] [id number] Apr, [facility] [facility] [address] [facility] [id number] [id number] March, IMMUNIZATIONS No Known Immunizations SOCIAL HISTORY Never Assessed REASON FOR VISIT PALS PLAN OF CARE VITAL SIGNS MEDICATIONS Unknown [...]
--- OUTSIDE RECORDS SUMMARY | 2018-11-11 16:47 | XMS REPORT ---
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 Name Role Phone TARIQ TATE Unavailable PROBLEMS Type Condition ICD9-CM Code BHF16-ZL Code Onset Dates Condition Status SNOMED Code Problem Hip bursitis, left M70.72 Active 65798672 Problem Moderate episode of recurrent major depressive disorder F33.1 Active 200605949 Problem Sciatic leg pain M54.30 Active 20662197 Problem Other depression F32.8 Active 43600050 Problem Osteoarthritis of both knees, unspecified osteoarthritis type M17.0 Active 739249484 Problem Chronic obstructive pulmonary disease, unspecified COPD type J44.9 Active 22934255 Problem Arthralgia of right temporomandibular joint M26.62 Active [id number] ALLERGIES No Information ENCOUNTERS Encounter Location Date Diagnosis [facility] [id number] [place] [address] [id number] Jul, Chronic obstructive pulmonary disease, unspecified COPD type J44.9 ; Osteoarthritis of both knees, unspecified osteoarthritis type M17.0 ; Moderate episode of recurrent major depressive disorder F33.1 and Sciatic leg pain M54.30 [facility] [id number] [place] [address] [id number] Jun, Moderate episode of recurrent major depressive disorder F33.1 ; Sciatic leg pain M54.30 and Chronic obstructive pulmonary disease, unspecified COPD type J44.9 [facility] [id number] [place] [address] [id number] Jun, [facility] [id number] [place] [address] [id number] May, Sciatic leg pain M54.30 [facility] [id number] [place] [address] [id number] May, Chronic obstructive pulmonary disease, unspecified COPD type J44.9 [facility] [address] [id number] [id number] May, [facility] [id number], [place] [phone] Apr, Moderate episode of recurrent major depressive disorder F33.1 ; Sciatic leg pain M54.30 and Chronic obstructive pulmonary disease, unspecified COPD type J44.9 [facility] [address] [id number], [place] [id number] March, [facility] [address] [id number][place] [phone] Feb, Sciatic leg pain M54.30 [facility] [address] [id number], [place] [phone] Feb, [facility] [address] [id number], [place] [id number] Dec, Moderate episode of recurrent major depressive disorder F33.1 ; Sciatic leg pain M54.30 ; Chronic obstructive pulmonary disease, unspecified COPD type J44.9 and Screening for thyroid disorder Z13.29 [facility] [address] [id number][place] [phone] Dec, Chronic obstructive pulmonary disease, unspecified COPD type J44.9 [facility] [address] [id number][place] [id number] Nov, Sciatic leg pain M54.30 [facility] [address] [id number], [place] [id number] Oct, [facility] [address] [id number], [place] [id number] Oct, Acute pain of right shoulder M25.511 [facility] [address] [id number], [place] [id number] Oct, Chronic obstructive pulmonary disease, unspecified COPD type J44.9 [facility] [address] [id number], [place] [id number] Oct, [facility] [address] [id number], [place] 828662697 Sep, Chronic obstructive pulmonary disease, unspecified COPD type J44.9 and Sciatic leg pain M54.30 [facility] [address] [id number], [place] [id number] Aug, Moderate episode of recurrent major depressive disorder F33.1 and Chronic obstructive pulmonary disease, unspecified COPD type J44.[address] [facility] [address] [id number], [place] [phone] Aug, Moderate episode of recurrent major depressive disorder F33.1 [facility] [address] [id number] [place] [address] [id number] Jul, Other depression F32.8 and Chronic obstructive pulmonary disease, unspecified COPD type J44.9 [facility] [address] [id number] [place] [address] [id number] Jul, Moderate episode of recurrent major depressive disorder F33.1 [facility] [address] [id number], [place] [id number] Jun, [facility] [id number] [place] [address] [id number] Jun, Moderate episode of recurrent major depressive disorder F33.1 [facility] [address] [id number] [place] [address] [id number] Jun, Moderate episode of recurrent major depressive disorder F33.1 [facility] [id number] [place] [address] [id number] Jun, [facility] [address] [id number] [place] [address] [id number] Jun, Sciatic leg pain M54.30 [facility] [address] [id number] [place] [address] [id number] Jun, [facility] [id number] [place] [address] [id number] May, Screening for thyroid disorder Z13.29 and Screening for lipid disorders Z13.220 [facility] [address] [id number] [place] [address] [id number] May, Other depression F32.8 [facility] [address] [id number], [place] 778103310 Apr, Sciatic leg pain M54.30 [facility] [address] [id number], [place] [id number] Apr, Screening for lipid disorders Z13.220 ; Screening for thyroid disorder Z13.29 and Chronic obstructive pulmonary disease, unspecified COPD type J44.9 [facility] [address] [id number], [place] 268945357 Apr, Screening for lipid disorders Z13.220 ; Screening for thyroid disorder Z13.29 and Chronic obstructive pulmonary disease, unspecified COPD type J44.9 [facility] [address] [id number], [place] [phone] Apr, [facility] [address] [id number], [place] 727731711 Apr, Chronic obstructive pulmonary disease, unspecified COPD type J44.[address] [facility] [address] [id number] [place] [address] March [facility] [address] [id number], [place] [id number] March, Sciatic leg pain M54.30 and Other depression F32.8 [facility] [address] [id number], [place] [id number] March, [facility] [id number] [place] [address] [id number] Jan, Other depression F32.8 and Sciatic leg pain M54.30 [facility] [id number] [place] [address] [id number] Jan, Sciatic leg pain M54.30 [facility] [address] [id number], [place] [id number] Dec, Other depression F32.8 [facility] [address] [id number], [place] [id number] Dec, Chronic obstructive pulmonary disease, unspecified COPD type J44.9 [facility] [address] [id number], [place] [id number] Nov, [facility] [id number] [place] [address] [id number] Oct, Other depression F32.8 and Chronic obstructive pulmonary disease, unspecified COPD type J44.9 [facility] [id number], [place] [id number] Aug, [facility] [id number] [place] [address] [id number] Aug, Other depression F32.8 ; Arthralgia of right temporomandibular joint M26.62 and Encounter for immunization Z23 [facility] [id number] [place] [address] [id number] Aug, Encounter for well woman exam Z01.419 [facility] [id number] [place] [address] [id number] Jul, Other depression F32.8 and Arthralgia of right temporomandibular joint M26.62 [facility] [id number] [place] [address] [id number] Jun, [facility] [id number] [place] [address] Jun [facility] [id number], [place] [id number] Jun, [facility] [id number] [place] [address] [id number] Jun, Other depression F32.8 and Urinary tract infection without hematuria, site unspecified N39.0 [facility] [id number], [place] [id number] Apr, [facility] [id number], [place] [id number] Apr, Dysuria R30.0 [facility] [address]00565100[place] [address] March, [facility] [id number], [place] [id number] March, Urinary tract infection, site unspecified N39.0 [facility] [id number] [place] [address] [id number] March, Urinary tract infection, site unspecified N39.0 [facility] [id number], [place] [id number] Feb, [facility]00565100[place], [place] 063506143 Feb, Headache R51 and Ear pain H92.09 [place] [id number] [place] [address] [id number] Jan, Osteoarthritis of both knees, unspecified osteoarthritis type M17.0 and Hip bursitis, left M70.72 [facility] [id number] [place] [address] [id number] Jan, [place] [id number] [place] [address] [id number] Dec, Unspecified arthropathy, site unspecified 716.90 and COPD (chronic obstructive pulmonary disease) [address] [place] [address] [id number] Dec, [place] [id number] [place] [address] [id number] Nov, [address] [place] [address] [id number] Oct, [place] [id number] [place] [address] [id number] Sep, [place] [id number] [place] [address] [id number] Sep, [address] [place] [address] [id number] Aug, [address] [id number], [place] [id number] Aug, [id number] [place] [address] [id number] Aug, Urinary tract infection N39.0 and Shoulder strain, right, initial encounter S46.911A [address] [place] [address] [id number] Aug, Screening breast examination Z12.39 and Encounter for immunization Z23 [address] [place] [address] [id number] Aug, [facility] [address]00565100[place] [id number] Aug, [place] [address] [facility] [id number], [place] [id number] Jul, [facility] [address] [id number], [place] [phone] Jun, [facility] [id number] [place] [address] [id number] Jun, Allergic rhinitis, cause unspecified 477.9 and Cough 786.2 [facility] [id number] [place] [address] [id number] May, [facility] [id number] [place] [address] [id number] May, [facility] [id number] [place] [address] [id number] May, Visit for suture removal V58.32 [facility] [id number] [place] [address] [id number] May, Dog bite 879.8 [facility] [id number] [place] [address] [id number] Apr, Rib pain on right side 786.50 [facility] [id number], [place] [id number] Apr, [facility] [id number] [place] [address] [id number] Apr, Allergic rhinitis, cause unspecified 477.9 and Cough 786.2 [facility] [id number], [place] [id number] March, [facility] [id number], [place] [id number] March, [facility] [id number], [place] [id number] March, [facility] [id number], [place] [id number] March, [facility] [id number] [place] [address] [id number] March, Cough 786.2 and Shortness of breath 786.05 [facility] [id number], [place] [id number] March, [facility] [address] [id number], [place] 726153475 March, Cough 786.2 ; COPD (chronic obstructive pulmonary disease) 496 and Allergic rhinitis, cause unspecified 477.9 [facility] [id number], [place] [id number] Feb, Allergic rhinitis, cause unspecified 477.9 ; Cough 786.2 and COPD ( chronic obstructive pulmonary disease) 496 [facility] [address]00565100[place], [place] [address] Feb, [facility] [address]00565100[place], [place] [address]- [address]46 Feb, [facility] [address]00565100[place], [place] [address]- 2546 Jan, [facility] [address]00565100[place], [place] [address]- 5036 Jan, [facility] [address]00565100[place], [place] [address]- 1176 Jan, [facility] [address] [id number], [place] [id number] Jan, [facility] [address]00565100[place], [place] [address]- 2546 Jan, [facility] [address] [id number], [place] [id number] Dec, [facility] [address]00565100[place], [place] [address]- 2546 Dec, [facility] [address] [id number], [place] [id number] Dec, [facility] [address]00565100[place], [place] [address]- 2546 Dec, [facility] [address] [id number], [place] [id number] Dec, [facility] [address] [id number], [place] [address]- [address]46 Dec, [facility] [place] [facility] [address] [facility] [id number], [place] [address]- [address] Dec, [facility] [address] [facility] [id number] [place] [phone] Nov, [facility] [place] [facility] [address] [facility] [id number], [place] [address]- 5733 Nov, [facility] [place] [facility] [address] [facility] [id number], [place] [address]- 2725 Nov, [facility] [address] [facility] [id number], [place] [id number] Nov, [facility] [place] [facility] [address] [facility] [id number], [place] [address]- 1567 Nov, [facility] [address] [facility] [id number], [place] [id number] Oct, [facility] [place] [facility] [address] [facility] [id number], [place] [address]- [address]24 Oct, [facility] [address] [facility] [id number], [place] [id number] Sep, [facility] [place] [facility] [address] [facility] [id number], [place] [address]- 5[address] Sep, [facility] [address] [facility] [id number], [place] 749390824 Sep, [facility] [place] [facility] [address] [facility] [id number], [place] [address]- 2176 Sep, [facility] [address] [facility] [id number], [place] 049438353 Aug, [facility] [place] [facility] [address] [facility] [id number], [place] [address]- 5029 Aug, [facility] [address] [facility] [id number], [place] [id number] Aug, [facility] [place] [facility] [address] [facility] [id number], [place] [address]- 6619 Aug, [facility] [place] [facility] [address] [facility] [id number], [place] [address]- 0604 Jul, [facility] [address] [id number] [place] [id number] Jul, [facility] [address] [id number] [place] [id number] Jul, [facility] [address] [id number] [place] [id number] Jul, [facility] [place] [facility] [address] [facility] [id number], [place] [address]- 7822 Jul, [facility] [place] [facility] [address] [facility] [id number], [place] [address]- 3414 Jul, [facility] [place] [facility] [address] [facility] [id number], [place] [address]- 0105 Jul, [facility] [place] [facility] [address] [facility] [id number], [place] [address]- 3747 Jul, [facility] [address] [facility] [id number], [place] [id number] Jun, [facility] [place] [facility] [address] [facility] [id number], [place] [address]- 5799 Jun, [facility] [place] [facility] [address] [facility] [id number], [place] [address]- 8686 Jun, [facility] [address] [facility] [id number], [place] [id number] Jun, [facility] [place] [facility] [address] [facility] [id number], [place] [address]- 9836 Jun, [facility] [address] [id number] [place] [id number] Jun, [facility] [place] [facility] [address] [id number], [place] [address]- 5539 Jun, [facility] [address] [id number], [place] 816492393 Apr, [facility] [place] [facility] [address] [facility] [id number], [place] 45716737- 4666 Apr, [facility] [address] [id number], [place] [id number] Apr, [facility] [place] [facility] [address] [facility] [id number] [place] [address]- 9036 Apr, [facility] [address] [id number] [place] [id number] Apr, [facility] [place] [facility] [address] [id number] [address]- 0286 Apr, [facility] [place] [facility] [address] [id number] [address]- 0178 March, [facility] [place] [facility] [address] [facility] [id number] [place] [address]- 6045 March, [facility] [address] [id number] [place] [id number] March, [facility] [address] [id number] [place] [id number] Feb, [facility] [place] [facility] [address]00565100[place], [place] [address]- 7205 Feb, [facility] [address] [id number] [place] [id number] Jan, [facility] [place] [facility] [address]00565100[place], [place] [address]- 3167 Jan, [facility] [address] [facility] [id number] [place] [id number] Dec, [facility] [place] [facility] [address] [id number], [place] [address]- 2956 Dec, [facility] [address] [facility] [id number] [place] [id number] Dec, [facility] [place] [facility] [address] [facility] [id number], [place] [address]- 4687 Dec, [facility] [place] [facility] [address] [facility] [id number], [place] [address]- 7806 Dec, [facility] [place] [facility] [address] [id number], [place] [address]- 7001 Dec, [facility] [address] [facility] [id number], [place] [id number] Nov, [facility] [address] [facility] [id number], [place] [address]- 7836 Nov, [facility] [address] [facility] [id number], [place] [id number] Nov, [facility] [address] [facility] [id number], [place] [address]- 2546 Nov, [facility] [address] [facility] [id number], [place] [id number] Nov, [facility] [address] [facility] [id number], [place] [address] 2546 Nov, [facility] [address] [facility] [id number], [place] 815965219 Oct, [facility] [address]00565100[place], [place] [address]- 8326 Oct, [facility] [place] [facility] [address]00565100[place], [place] [address]- 2546 Oct, [facility] [address] [facility] [id number], [place] [id number] Oct, [facility] [place] [facility] [address]00565100[place], [place] [address]- 4016 Sep, [facility] [address]65100[place], [place] [address] Sep, [facility] [address] [facility] [id number][place] [id number] Sep, [facility] [address] [facility] [id number], [place] [address] Sep, [facility] [address] [facility] [id number][place] [id number] Aug, [facility] [address] [facility] [id number], [place] [address] Aug, [facility] [address] [facility] [id number][place] [id number] Jul, [facility] [address] [id number] [place] [id number] Jul, [facility] [address] [id number] [place] [id number] Jun, [facility] [address] [id number] [place] [id number] May, [facility] [address] [id number] [place] [id number] May, [facility] [address] [facility] [id number], [place] [address] May, [facility] [address] [id number] [place] [id number] Apr, [facility] [address] [id number] [place] [id number] Apr, [facility] [address] [id number] [place] [id number] March, [facility] [address] [id number] [place] [id number] Feb, [facility] [address] [id number] [place] [id number] Feb, [facility] [address] [id number] [place] [id number] Jan, [facility] [address] [id number] [place] [id number] Jan, [facility] [address] [id number] [place] [id number] Dec, [facility] [address] [id number] [place] [id number] Nov, [facility] [address] [facility] [id number], [place] [address] Oct, [facility] [address] [facility] [id number] [address] Oct, [facility] [address] [id number] [place] [id number] Oct, [facility] [id number] [place] [address] Oct, [facility] [address] [id number], [place] [address] Oct, [facility] [address] [id number] [place] [id number] Oct, [facility] [address] [id number] [place] [id number] Sep, [facility] [address] [facility] [id number], [place] [address] Sep, [facility] [address] [id number] [place] [id number] Sep, [facility] [address] [facility] [id number], [place] [address] Sep, [facility] [address] [id number][place] [id number] Aug, [facility] [address] [facility] [id number], [place] [address] Aug, [facility] [address] [id number], [place] [id number] Aug, [facility] [address] [id number] [place] [id number] Jun, [facility] [address] [id number] [place] [id number] Jun, [facility] [address] [facility] [id number], [place] [address] May, [facility] [address] [id number][place] [id number] Apr, [facility] [address] [id number] [place] [id number] March, [facility] [address] [id number] [place] [id number] Feb, [facility] [address] [id number] [place] [id number] Jan, [facility] [address] [id number] [place] [id number] Nov, [facility] [address] [facility] [id number] [place] [address] Sep, [facility] [address] [facility] [id number] [address] Sep, [facility] [address] [facility] [id number], [place] [address] Aug, [facility] [address] [facility] [id number], [place] [address] Apr, [facility] [address] [facility] [id number], [place] [address] March, IMMUNIZATIONS No Known Immunizations SOCIAL HISTORY Never Assessed REASON FOR VISIT Medication question PLAN OF CARE VITAL SIGNS MEDICATIONS Medication Instructions Dosage Frequency Start Date End Date Duration Status Diclofenac Sodium 50 MG Orally Three times a day 1 tablet with food or milk 8h Jan, 0 days Active Atorvastatin Calcium 20 mg Orally Once a day at bedtime 1 tablet May, 0 days Active RESULTS No Results PROCEDURES [...]
--- OUTSIDE RECORDS SUMMARY | 2018-11-11 16:48 | XMS REPORT ---
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 Role Phone TARIQ TATE Unavailable PROBLEMS Type Condition ICD9-CM Code JVE10-LY Code Onset Dates Condition Status SNOMED Code Problem Hip bursitis, left M70.72 Active 26673308 Problem Moderate episode of recurrent major depressive disorder F33.1 Active 257265886 Problem Sciatic leg pain M54.30 Active 08284344 Problem Other depression F32.8 Active 09247496 Problem Osteoarthritis of both knees, unspecified osteoarthritis type M17.0 Active 613097540 Problem Chronic obstructive pulmonary disease, unspecified COPD type J44.9 Active 52204063 Problem Arthralgia of right temporomandibular joint M26.62 Active 54569831 ALLERGIES No Information ENCOUNTERS Encounter Location Date Diagnosis [facility] [id number] [place] [address] [id number] Jul, [place] [id number] [place] [address] [id number] Jun, Moderate episode of recurrent major depressive disorder F33.1 ; Sciatic leg pain M54.30 and Chronic obstructive pulmonary disease, unspecified COPD type J44.9 [facility] [address] [id number] [place] [address] [id number] Jun, [facility] [address] [id number] [place] [address] [id number] May, Sciatic leg pain M54.30 [facility] [address] [id number] [place] [address] [id number] May, Chronic obstructive pulmonary disease, unspecified COPD type J44.9 [facility] [address] [facility] [address] [id number] [place] [id number] May, [facility] [id number] [place] [address] [id number] Apr, Moderate episode of recurrent major depressive disorder F33.1 ; Sciatic leg pain M54.30 and Chronic obstructive pulmonary disease, unspecified COPD type J44.9 [facility] [address] [id number], [place] [id number] March, [facility] [address] [id number], [place] [id number] Feb, Sciatic leg pain M54.30 [facility] [address] [id number] [place] [id number] Feb, [facility] [address] [id number], [place] [id number] Dec, Moderate episode of recurrent major depressive disorder F33.1 ; Sciatic leg pain M54.30 ; Chronic obstructive pulmonary disease, unspecified COPD type J44.9 and Screening for thyroid disorder Z13.29 [facility] [address] [id number] [place] [address] [id number] Dec, Chronic obstructive pulmonary disease, unspecified COPD type J44.9 [facility] [address] [id number], [place] [id number] Nov, Sciatic leg pain M54.30 [facility] [address] [facility] [id number] [place], [place] [phone] Oct, [facility] [address] [id number], [place] [id number] Oct, Acute pain of right shoulder M25.511 [facility] [address] [id number] [place] [address] [id number] Oct, Chronic obstructive pulmonary disease, unspecified COPD type J44.9 [facility] [address] [id number], [place] [id number] Oct, [facility] [address] [id number] [place] [address] [id number] Sep, Chronic obstructive pulmonary disease, unspecified COPD type J44.9 and Sciatic leg pain M54.30 [facility] [address] [id number], [place] [id number] Aug, Moderate episode of recurrent major depressive disorder F33.1 and Chronic obstructive pulmonary disease, unspecified COPD type J44.9 [facility] [address] [id number] [place] 589342497 Aug, Moderate episode of recurrent major depressive disorder F33.1 [facility] [address] [id number], [place] 469810151 Jul, Other depression F32.8 and Chronic obstructive pulmonary disease, unspecified COPD type J44.9 [facility] [address] [id number], [place] [id number] Jul, Moderate episode of recurrent major depressive disorder F33.1 [facility] [place] [address] [facility] [id number] [place], [place] [id number] Jun, [facility] [address] [id number], [place] [id number] Jun, Moderate episode of recurrent major depressive disorder F33.1 [facility] [address] [id number], [place] [id number] Jun, Moderate episode of recurrent major depressive disorder F33.1 [facility] [address] [id number], [place] [id number] Jun, [facility] [address] [id number] [place] [address] [id number] Jun, Sciatic leg pain M54.30 [facility] [address] [id number], [place] [id number] Jun, [facility] [address] [id number] [place] [address] [id number] May, Screening for thyroid disorder Z13.29 and Screening for lipid disorders Z13.220 [facility] [address] [id number], [place] [id number] May, Other depression F32.8 [facility] [address] [id number] [place] [address] [id number] Apr, Sciatic leg pain M54.30 [facility] [address] [id number] [place] [address] [id number] Apr, Screening for lipid disorders Z13.220 ; Screening for thyroid disorder Z13.29 and Chronic obstructive pulmonary disease, unspecified COPD type J44.9 [facility] [address] [id number], [place] [id number] Apr, Screening for lipid disorders Z13.220 ; Screening for thyroid disorder Z13.29 and Chronic obstructive pulmonary disease, unspecified COPD type J44.9 [facility] [address] [id number], [place] [id number] Apr, [facility] [address] [id number] [place] [address] [id number] Apr, Chronic obstructive pulmonary disease, unspecified COPD type J44.9 [facility] [address] [id number] [place] [address] March [facility] [address] [id number] [place] [address] [id number] March, Sciatic leg pain M54.30 and Other depression F32.8 [facility] [address] [id number] [place] [address] [id number] March, [facility] [address] [id number] [place] [address] [id number] Jan, Other depression F32.8 and Sciatic leg pain M54.30 [facility] [address] [id number] [place] [address] [id number] Jan, Sciatic leg pain M54.30 [facility] [address] [id number] [place] [address] [id number] Dec, Other depression F32.8 [facility] [address] [id number], [place] [id number] Dec, Chronic obstructive pulmonary disease, unspecified COPD type J44.9 [facility] [address] [id number], [place] [id number] Nov, [facility] [address] [id number] [place] [address] [id number] Oct, Other depression F32.8 and Chronic obstructive pulmonary disease, unspecified COPD type J44.9 [facility] [address] [id number], [place] [id number] Aug, [facility] [address] [id number] [place] [address] [id number] Aug, Other depression F32.8 ; Arthralgia of right temporomandibular joint M26.62 and Encounter for immunization Z23 [facility] [id number] [place] [address] [id number] Aug, Encounter for well woman exam Z01.419 [facility] [id number] [place] [address] [id number] Jul, Other depression F32.8 and Arthralgia of right temporomandibular joint M26.62 [facility] [address] [id number], [place] [id number] Jun, [facility] [place] [address] [id number] [address] Jun [facility] [id number] [place] [address] [id number] Jun, [facility] [id number] [place] [address] [id number] Jun, Other depression F32.8 and Urinary tract infection without hematuria, site unspecified N39.0 [facility] [id number], [place] [id number] Apr, [facility] [id number] [place] [address] [id number] Apr, Dysuria R30.0 [facility] [address]00565100[place] [address] March, [facility] [id number] [place] [address] [id number] March, Urinary tract infection, site unspecified N39.0 [facility] [id number] [place] [address] [id number] March, Urinary tract infection, site unspecified N39.0 [facility] [id number] [place] [address] [id number] Feb, [facility] [id number] [place] [address] [id number] Feb, Headache R51 and Ear pain H92.09 [facility] [id number] [place] [address] [id number] Jan, Osteoarthritis of both knees, unspecified osteoarthritis type M17.0 and Hip bursitis, left M70.72 [facility] [id number] [place] [address] [id number] Jan, [facility] [id number] [place] [address] [id number] Dec, Unspecified arthropathy, site unspecified 716.90 and COPD (chronic obstructive pulmonary disease) 496 [facility] [id number], [place] [id number] Dec, [facility] [id number] [place] [address] [id number] Nov, [facility] [id number] [place] [address] [id number] Oct, [facility] [id number] [place] [address] [id number] Sep, [id number] [place] [address] [id number] Sep, [facility] [id number] [place] [address] [id number] Aug, [address] [id number] [place] [id number] Aug, [facility] [id number], [place] [id number] Aug, Urinary tract infection N39.0 and Shoulder strain, right, initial encounter S46.911A [place] [id number], [place] [id number] Aug, Screening breast examination Z12.39 and Encounter for immunization Z23 [place] [id number], [place] [id number] Aug, [facility] [place] [address]00565100[place] [address] Aug, [facility] [address] [facility] [id number], [place] [id number] Jul, [id number] [place] [address] [id number] Jun, [facility] [id number], [place] [id number] Jun, Allergic rhinitis, cause unspecified 477.9 and Cough 786.2 [facility] [address] [id number] [place] [address] [id number] May, [facility] [id number] [place] [address] [id number] May, [facility] [id number] [place] [address] [id number] May, Visit for suture removal V58.32 [facility] [id number] [place] [address] [id number] May, Dog bite 879.8 [facility] [id number] [place] [address] [id number] Apr, Rib pain on right side 786.50 [facility] [id number] [place] [address] [id number] Apr, [facility] [id number] [place] [address] [id number] Apr, Allergic rhinitis, cause unspecified 477.9 and Cough 786.2 [facility] [id number] [place] [address] [id number] March, [facility] [id number] [place] [address] [id number] March, [facility] [id number] [place] [address] [id number] March, [facility] [id number] [place] [address] [id number] March, [facility] [id number] [place] [address] [id number] March, Cough 786.2 and Shortness of breath 786.05 [facility] [id number] [place] [address] [id number] March, [facility] [id number] [place] [address] [id number] March, Cough 786.2 ; COPD (chronic obstructive pulmonary disease) 496 and Allergic rhinitis, cause unspecified 477.9 [facility] [id number], [place] [id number] Feb, Allergic rhinitis, cause unspecified 477.9 ; Cough 786.2 and COPD ( chronic obstructive pulmonary disease) 496 [facility] [address]00565100[place] [address]- [address] 14 Feb, 2015 [facility] [id number], [place] [address]- 0[address] Feb, [facility] [id number], [place] [address]- 1066 Jan, [facility] [id number] [place] [address]- 7706 Jan, [facility] [address]00565100[place], [place] [address]- 1276 Jan, [facility] [id number], [place] [id number] Jan, [facility] [place] [id number], [place] [address]- 1566 Jan, [facility] [id number], [place] [id number] Dec, [facility] [place] [address]00565100[place], [place] [address]- 2546 Dec, [facility] [id number], [place] [id number] Dec, [facility] [place] [address]00565100[place], [place] [address]- 2546 Dec, [facility] [address] [id number], [place] [id number] Dec, [facility] [place] [address]00565100[place], [place] [address]- 2546 Dec, [facility] [address]00565100[place], [place] [address]- 2546 Dec, [facility] [id number], [place] [id number] Nov, [facility] [address] [id number], [place] [address]- 2655 Nov, [facility] [address] [facility] [id number] [address]- 3746 Nov, [facility] [address] [id number], [place] [id number] Nov, [facility] [address] [id number], [place] [address]- 5106 Nov, [facility] [address] [id number], [place] [id number] Oct, [facility] [address] [id number], [place] [address]- 1806 Oct, [facility] [address] [id number], [place] [id number] Sep, [facility] [address] [facility] [id number], [place] [address]- 7[address] Sep, [facility] [address] [id number], [place] [id number] Sep, [facility] [address] [facility] [id number][place] [address]- 0016 Sep, [facility] [address] [id number], [place] [id number] Aug, [facility] [address] [facility] [id number], [place] [address]- 7676 Aug, [facility] [address] [id number], [place] [id number] Aug, [facility] [address] [id number], [place] [address]- 0633 Aug, [facility] [address] [facility] [id number], [place] [address]- 8606 Jul, [facility] [address] [id number], [place] [id number] Jul, [facility] [address] [id number] [place] [id number] Jul, [facility] [address] [id number] [place] [id number] Jul, [facility] [address] [id number], [place] [address]- 3960 Jul, [facility] [address] [facility] [id number], [place] [address]- 6097 Jul, [facility] [address] [id number], [place] [address]- 5553 Jul, [facility] [address] [id number], [place] [address]- 4212 Jul, [facility] [address] [facility] [id number], [place] [id number] Jun, [facility] [address]00565100[place], [place] [address]- 8669 Jun, [facility] [address] [facility] [id number] [address]- 5693 Jun, [facility] [address] [id number] [place] [id number] Jun, [facility] [address] [facility] [id number], [place] [address]- 7974 Jun, [facility] [address] [id number], [place] [id number] Jun, [facility] [address] [id number], [place] [address]- 9982 Jun, [facility] [address] [id number], [place] 795503450 Apr, [facility] [address] [id number], [place] [address]- 7874 Apr, [facility] [address] [id number], [place] 065465409 Apr, [facility] [address] [facility] [id number] [address]- 4433 Apr, [facility] [address] [id number], [place] 415764128 Apr, [facility] [address] [facility] [id number], [place] [address]- 1777 Apr, [facility] [address] [id number], [place] [address]- 3346 March, [facility] [address]00565100[place], [place] [address]- 7803 March, [facility] [address] [facility] [id number], [place] [id number] March, [facility] [address] [facility] [id number], [place] 802118198 Feb, [facility] [address]00565100[place], [place] [address]- 5597 Feb, [facility] [id number], [place] [id number] Jan, [facility] [address]00565100[place], [place] [address]- 4319 Jan, [facility] [address] [facility] [id number], [place] 857866559 Dec, [facility] [address]00565100[place], [place] [address]- 9904 Dec, [facility] [address] [id number], [place] 142229597 Dec, [facility] [address]00565100[place], [place] [address]- 7474 Dec, [facility] [address] [facility] [id number] [address]- 3781 Dec, [facility] [address] [facility] [id number], [place] [address]- 7210 Dec, [facility] [address] [facility] [id number], [place] [id number] Nov, [facility] [address]00565100[place], [place] [address]- 2546 Nov, [facility] [address] [id number] [place] [id number] Nov, [facility] [address] [facility] [id number][place] [address]- 2546 Nov, [facility] [address] [id number], [place] [id number] Nov, [facility] [address] [facility] [id number], [place] [address] 2546 Nov, [facility] [address] [id number], [place] 476106179 Oct, [facility] [address] [facility] [id number], [place] [address]- 7126 Oct, [facility] [address] [id number], [place] [address]- 6726 Oct, [facility] [address] [id number], [place] 841181586 Oct, [facility] [address] [facility] [id number], [place] [address]- [address] Sep, [facility] [address] [facility] [id number], [place] [address] Sep, [facility] [place] [address] [id number][place] [id number] Sep, [facility] [address] [facility] [id number], [place] [address] Sep, [facility] [place] [address] [id number][place] [id number] Aug, [facility] [address] [id number], [place] [address] Aug, [facility] [place] [address] [id number][place] [id number] Jul, [facility] [place] [address] [id number] [place] [id number] Jul, [facility] [place] [address] [id number][place] [id number] Jun, [facility] [place] [address] [id number] [place] [id number] May, [facility] [place] [address] [id number] [place] [id number] May, [facility] [address] [facility] [id number], [place] [address] May, [facility] [place] [address] [id number] [place] [id number] Apr, [facility] [place] [address] [id number] [place] [id number] Apr, [facility] [place] [address] [id number] [place] [id number] March, [facility] [place] [address] [id number] [place] [id number] Feb, [facility] [place] [address] [id number] [place] [id number] Feb, [facility] [place] [address] [id number] [place] [id number] Jan, [facility] [place] [address] [id number] [place] [id number] Jan, [facility] [place] [address] [id number] [place] [id number] Dec, [facility] [place] [address] [id number] [place] [id number] Nov, [facility] [id number], [place] [address] Oct, [facility] [address] [facility] [id number], [place] [address] Oct, [facility] [place] [address] [id number] [place] [id number] Oct, [facility] [address] [facility] [id number], [place] [address] Oct, [facility] [address] [id number], [place] [address] Oct, [facility] [place] [address] [id number] [place] [id number] Oct, [facility] [place] [address] [id number] [place] [id number] Sep, [facility] [id number] [address] Sep, [facility] [place] [address] [id number] [place] [id number] Sep, [facility] [id number] [place] [id number] Sep, [facility] [place] [address] [id number] [place] [id number] Aug, [facility] [id number] [place] [address] Aug, [facility] [place] [address] [id number] [place] [id number] Aug, [facility] [place] [address] [id number][place] [id number] Jun, [facility] [place] [address] [id number] [place] [id number] Jun, [facility] [id number], [place] [address] May, [facility] [place] [address] [id number][place] [id number] Apr, [facility] [place] [address] [id number] [place] [id number] March, [facility] [place] [address] [id number] [id number] Feb, [facility] [place] [address] [id number] [place] [id number] Jan, [facility] [place] [address] [id number][place] [id number] Nov, [facility] [id number] [address] Sep, [facility] [id number] [place] [address] Sep, [facility] [place] [address] [facility] [id number] [place] [address] Aug, [facility], [place] [address] [facility] [id number] [address], [facility], [place] [address] [facility] [id number] [address] March, IMMUNIZATIONS No Known Immunizations SOCIAL HISTORY Never Assessed REASON FOR VISIT Refill request PLAN OF CARE VITAL SIGNS MEDICATIONS Medication [...]
--- OUTSIDE RECORDS SUMMARY | 2018-11-11 16:49 | XMS REPORT ---
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 Name Role Phone TARIQ TATE Unavailable PROBLEMS Type Condition ICD9-CM Code NZD02-YY Code Onset Dates Condition Status SNOMED Code Problem Hip bursitis, left M70.72 Active 72837845 Problem Moderate episode of recurrent major depressive disorder F33.1 Active 084029027 Problem Sciatic leg pain M54.30 Active 47211079 Problem Other depression F32.8 Active 54328274 Problem Osteoarthritis of both knees, unspecified osteoarthritis type M17.0 Active 005187923 Problem Chronic obstructive pulmonary disease, unspecified COPD type J44.9 Active 04563947 Problem Arthralgia of right temporomandibular joint M26.62 Active 62840103 ALLERGIES No Information ENCOUNTERS Encounter Location Date Diagnosis [facility] [id number] [place] [address] [id number] Jul, [place] [id number] [place] [address] [id number] Jun, Moderate episode of recurrent major depressive disorder F33.1 ; Sciatic leg pain M54.30 and Chronic obstructive pulmonary disease, unspecified COPD type J44.9 [facility] [id number] [place] [address] [id number] Jun, [facility] [address] [id number] [place] [address] [id number] May, Sciatic leg pain M54.30 [facility] [address] [id number] [place] [address] [id number] May, Chronic obstructive pulmonary disease, unspecified COPD type J44.9 [facility] [address] [id number][place] [id number] May, [facility] [id number] [place] [address] [id number] Apr, Moderate episode of recurrent major depressive disorder F33.1 ; Sciatic leg pain M54.30 and Chronic obstructive pulmonary disease, unspecified COPD type J44.9 [facility] [place] [address] [id number], [place] [id number] March, [facility] [place] [address] [id number], [place] [id number] Feb, Sciatic leg pain M54.30 [facility] [address] [id number], [place] [id number] Feb, [facility] [place] [address] [id number], [place] [id number] Dec, Moderate episode of recurrent major depressive disorder F33.1 ; Sciatic leg pain M54.30 ; Chronic obstructive pulmonary disease, unspecified COPD type J44.9 and Screening for thyroid disorder Z13.29 [facility] [id number] [place] [address] [id number] Dec, Chronic obstructive pulmonary disease, unspecified COPD type J44.9 [facility] [address] [id number], [place] [id number] Nov, Sciatic leg pain M54.30 [facility] [address] [id number], [place] [id number] Oct, [facility] [place] [address] [id number], [place] [id number] Oct, Acute pain of right shoulder M25.511 [facility] [id number] [place] [address] [id number] Oct, Chronic obstructive pulmonary disease, unspecified COPD type J44.9 [facility] [address] [id number], [place] [id number] Oct, [facility] [place] [address] [id number] [place] [address] [id number] Sep, Chronic obstructive pulmonary disease, unspecified COPD type J44.9 and Sciatic leg pain M54.30 [facility] [address] [id number], [place] [id number] Aug, Moderate episode of recurrent major depressive disorder F33.1 and Chronic obstructive pulmonary disease, unspecified COPD type J44.9 [facility] [address] [id number], [place] [id number] Aug, Moderate episode of recurrent major depressive disorder F33.1 [facility] [address] [id number], [place] [id number] Jul, Other depression F32.8 and Chronic obstructive pulmonary disease, unspecified COPD type J44.9 [facility] [place] [address] [id number], [place] [id number] Jul, Moderate episode of recurrent major depressive disorder F33.1 [facility] [place] [address] [id number], [place] [id number] Jun, [facility] [place] [address] [id number], [place] [id number] Jun, Moderate episode of recurrent major depressive disorder F33.1 [facility] [place] [address] [id number], [place] [id number] Jun, Moderate episode of recurrent major depressive disorder F33.1 [facility] [place] [address] [id number], [place] [id number] Jun, [facility] [place] [address] [id number] [place] [address] [id number] Jun, Sciatic leg pain M54.30 [facility] [place] [address] [id number], [place] [id number] Jun, [facility] [address] [id number] [place] [address] [id number] May, Screening for thyroid disorder Z13.29 and Screening for lipid disorders Z13.220 [facility] [place] [address] [id number], [place] [id number] May, Other depression F32.8 [facility] [place] [address] [id number] [place] [address] [id number] Apr, Sciatic leg pain M54.30 [facility] [place] [address] [id number] [place] [address] [id number] Apr, Screening for lipid disorders Z13.220 ; Screening for thyroid disorder Z13.29 and Chronic obstructive pulmonary disease, unspecified COPD type J44.9 [facility] [place] [address] [id number], [place] [id number] Apr, Screening for lipid disorders Z13.220 ; Screening for thyroid disorder Z13.29 and Chronic obstructive pulmonary disease, unspecified COPD type J44.9 [facility] [address] [id number], [place] [id number] Apr, [facility] [address] [id number] [place] [address] [id number] Apr, Chronic obstructive pulmonary disease, unspecified COPD type J44.9 [facility] [address] [id number] [place] [address] March [facility] [place] [address] [id number] [place] [address] [id number] March, Sciatic leg pain M54.30 and Other depression F32.8 [facility] [place] [address] [id number] [place] [address] [id number] March, [facility] [address] [id number] [place] [address] [id number] Jan, Other depression F32.8 and Sciatic leg pain M54.30 [facility] [place] [id number] [place] [address] [id number] Jan, Sciatic leg pain M54.30 [facility] [place] [address] [id number] [place] [address] [id number] Dec, Other depression F32.8 [facility] [place] [address] [id number], [place] [id number] Dec, Chronic obstructive pulmonary disease, unspecified COPD type J44.9 [facility] [place] [address] [id number], [place] [id number] Nov, [facility] [address] [id number] [place] [address] [id number] Oct, Other depression F32.8 and Chronic obstructive pulmonary disease, unspecified COPD type J44.9 [facility] [place] [address] [id number], [place] [id number] Aug, [facility] [place] [address] [id number] [place] [address] [id number] Aug, Other depression F32.8 ; Arthralgia of right temporomandibular joint M26.62 and Encounter for immunization Z23 [facility] [place] [id number] [place] [address] [id number] Aug, Encounter for well woman exam Z01.419 [facility] [place] [id number] [place] [address] [id number] Jul, Other depression F32.8 and Arthralgia of right temporomandibular joint M26.62 [facility] [place] [address] [id number], [place] [id number] Jun, [facility] [place] [address] [id number] [place] [address] Jun [facility] [place] [id number] [place] [address] [id number] Jun, [facility] [place] [id number] [place] [address] [id number] Jun, Other depression F32.8 and Urinary tract infection without hematuria, site unspecified N39.0 [facility] [place] [id number], [place] [id number] Apr, [facility] [id number] [place] [address] [id number] Apr, Dysuria R30.0 [facility] [address]00565100[place], [place] [address] March, [facility] [id number] [place] [address] [id number] March, Urinary tract infection, site unspecified N39.0 [facility] [place] [id number] [place] [address] [id number] March, Urinary tract infection, site unspecified N39.0 [facility] [id number] [place] [address] [id number] Feb, [facility] [id number] [place] [address] [id number] Feb, Headache R51 and Ear pain H92.09 [facility] [place] [id number] [place] [address] [id number] Jan, Osteoarthritis of both knees, unspecified osteoarthritis type M17.0 and Hip bursitis, left M70.72 [facility] [id number] [place] [address] [id number] Jan, [facility] [id number] [place] [address] [id number] Dec, Unspecified arthropathy, site unspecified 716.90 and COPD (chronic obstructive pulmonary disease) 496 [facility] [id number], [place] [id number] Dec, [facility] [id number] [place] [address] [id number] Nov, [facility] [id number] [place] [address] [id number] Oct, [facility] [id number] [place] [address] [id number] Sep, [id number] [place] [address] [id number] Sep, [facility] [id number] [place] [address] [id number] Aug, [address] [id number], [place] [id number] Aug, [facility] [id number], [place] [id number] Aug, Urinary tract infection N39.0 and Shoulder strain, right, initial encounter S46.911A [place] [id number], [place] [id number] Aug, Screening breast examination Z12.39 and Encounter for immunization Z23 [place] [id number], [place] [id number] Aug, [facility] [place] [address]00565100[place] [id number] Aug, [facility] [address] [facility] [id number], [place] [phone] Jul, [id number] [place] [address] [id number] Jun, [facility] [id number], [place] [id number] Jun, Allergic rhinitis, cause unspecified 477.9 and Cough 786.2 [facility] [id number] [place] [address] [id number] May, [facility] [id number] [place] [address] [id number] May, [facility] [id number] [place] [address] [id number] May, Visit for suture removal V58.32 [facility] [id number] [place] [address] [id number] May, Dog bite 879.8 [facility] [id number] [place] [address] [id number] Apr, Rib pain on right side 786.50 [facility] [id number] [place] [address] [id number] Apr, [facility] [id number] [place] [address] [phone] Apr, Allergic rhinitis, cause unspecified 477.9 and Cough 786.2 [facility] [id number] [place] [address] [id number] March, [facility] [id number] [place] [address] [id number] March, [facility] [id number] [place] [address] [id number] March, [facility] [id number] [place] [address] [id number] March, [facility] [id number] [place] [address] [id number] March, Cough 786.2 and Shortness of breath 786.05 [facility] [id number] [place] [address] [id number] March, [facility] [id number] [place] [address] [id number] March, Cough 786.2 ; COPD (chronic obstructive pulmonary disease) 496 and Allergic rhinitis, cause unspecified 477.9 [facility] [id number], [place] [id number] Feb, Allergic rhinitis, cause unspecified 477.9 ; Cough 786.2 and COPD ( chronic obstructive pulmonary disease) 496 [facility] [address]00565100[place], [place] [address] 14 Feb, 2015 [facility] [address]00565100[place], [place] [address] Feb, [facility] [address]00565100[place], [place] [address] Jan, [facility] [id number] [place] [address] Jan, [facility] [address]00565100[place], [place] [address]- 9[address] Jan, [facility] [id number], [place] [id number] Jan, [facility] [address]00565100[place], [place] [address] 9[address] Jan, [facility] [id number], [place] [id number] Dec, [facility] [address]00565100[place], [place] [address] Dec, [facility] [id number], [place] [id number] Dec, [facility] [address]00565100[place], [place] [address]- 2546 Dec, [facility] [address] [id number], [place] [phone] Dec, [facility] [address]00565100[place], [place] [address]- [address] Dec, [facility] [address]00565100[place], [place] [address]- 2546 Dec, [facility] [id number], [place] [id number] Nov, [facility] [address] [id number], [place] [address] Nov, [facility] [address] [facility] [id number], [place] [address] Nov, [facility] [address] [id number], [place] [id number] Nov, [facility] [address] [id number], [place] [address] Nov, [facility] [address] [id number], [place] [id number] Oct, [facility] [address] [id number], [place] [address] Oct, [facility] [place] [address] [id number], [place] [id number] Sep, [facility] [address] [facility] [id number], [place] [address] Sep, [facility] [address] [id number], [place] [id number] Sep, [facility] [address] [facility] [id number], [place] [address] Sep, [facility] [address] [id number], [place] [id number] Aug, [facility] [address] [facility] [id number], [place] [address] Aug, [facility] [address] [id number], [place] [id number] Aug, [facility] [address] [id number], [place] [address] Aug, [facility] [address] [facility] [id number], [place] [address] 8[address] Jul, [facility] [address] [id number], [place] [id number] Jul, [facility] [address] [id number] [place] [id number] Jul, [facility] [address] [id number] [place] [id number] Jul, [facility] [address] [id number], [place] [address]- 0778 Jul, [facility] [address] [facility] [id number], [place] [address]- 2536 Jul, [facility] [address] [id number], [place] [address]- 9989 Jul, [facility] [address] [id number], [place] [address]- 7969 Jul, [facility] [address] [facility] [id number], [place] [id number] Jun, [facility] [address]00565100[place], [place] [address]- 9[address] Jun, [facility] [address] [facility] [id number], [place] [address]- 5743 Jun, [facility] [address] [id number] [place] [id number] Jun, [facility] [address] [facility] [id number], [place] [address]- 7[address] Jun, [facility] [address] [id number], [place] [id number] Jun, [facility] [address] [id number], [place] [address]- 6[address] Jun, [facility] [address] [id number], [place] [id number] Apr, [facility] [address] [id number], [place] [address]- 0123 Apr, [facility] [address] [id number], [place] [id number] Apr, [facility] [address] [facility] [id number], [place] [address]- 2012 Apr, [facility] [address] [id number], [place] [id number] Apr, [facility] [address] [facility] [id number], [place] [address]- 8[address] Apr, [facility] [address] [id number], [place] [address]- 6176 March, [facility] [address]00565100[place], [place] [address]- 8626 March, [facility] [address] [facility] [id number], [place] [id number] March, [facility] [address] [facility] [id number], [place] [id number] Feb, [facility] [address]00565100[place], [place] [address] 1987 Feb, [facility] [id number], [place] [id number] Jan, [facility] [address]00565100[place], [place] [address]- 7998 Jan, [facility] [address] [facility] [id number], [place] 818556970 Dec, [facility] [address]00565100[place], [place] [address]- 3829 Dec, [facility] [address] [id number], [place] [id number] Dec, [facility] [address]65100[place], [place] [address]- 2969 Dec, [facility] [address] [facility] [id number], [place] [address]- 7942 Dec, [facility] [address] [facility] [id number], [place] [address]- 1287 Dec, [facility] [address] [facility] [id number], [place] 340090392 Nov, [facility] [address]00565100[place], [place] [address]- 2546 Nov, [facility] [address] [id number] [place] [id number] Nov, [facility] [address] [facility] [id number], [place] [address]- 2546 Nov, [facility] [address] [id number], [place] 364151959 Nov, [facility] [address] [facility] [id number], [place] [address] 2546 Nov, [facility] [address] [id number], [place] [id number] Oct, [facility] [address] [facility] [id number], [place] [address]- 0526 Oct, [facility] [address] [id number], [place] [address]- 0876 Oct, [facility] [address] [id number], [place] [id number] Oct, [facility] [address] [facility] [id number], [place] [address]- 1840 Sep, [facility] [address] [facility] [id number], [place] [address]- 5196 Sep, [facility] [address] [id number], [place] 808199066 Sep, [facility] [address] [facility] [id number], [place] [address] Sep, [facility] [place] [address] [id number][place] [id number] Aug, [facility] [address] [id number], [place] [address] Aug, [facility] [place] [address] [id number][place] [id number] Jul, [facility] [place] [address] [id number] [place] [id number] Jul, [facility] [place] [address] [id number][place] [id number] Jun, [facility] [place] [address] [id number] [place] [id number] May, [facility] [place] [address] [id number] [place] [id number] May, [facility] [address] [facility] [id number], [place] [address] May, [facility] [place] [address] [id number] [place] [id number] Apr, [facility] [place] [address] [id number] [place] [id number] Apr, [facility] [place] [address] [id number] [place] [id number] March, [facility] [place] [address] [id number] [place] [id number] Feb, [facility] [place] [address] [id number] [place] [id number] Feb, [facility] [place] [address] [id number] [place] [id number] Jan, [facility] [place] [address] [id number] [place] [id number] Jan, [facility] [place] [address] [id number] [place] [id number] Dec, [facility] [place] [address] [id number] [place] [id number] Nov, [facility] [id number], [place] [address] Oct, [facility] [address] [facility] [id number], [place] [address] Oct, [facility] [place] [address] [id number] [place] [id number] Oct, [facility] [address] [facility] [id number], [place] [address] Oct, [facility] [address] [id number], [place] [address] Oct, [facility] [place] [address] [id number] [place] [id number] Oct, [facility] [place] [address] [id number] [place] [id number] Sep, [facility] [id number], [place] [address] Sep, [facility] [place] [address] [id number] [place] [id number] Sep, [facility] [id number] [place] [address] Sep, [facility] [place] [address] [id number] [place] [id number] Aug, [facility] [id number] [place] [address] Aug, [facility] [place] [address] [id number] [place] [id number] Aug, [facility] [place] [address] [id number][place] [id number] Jun, [facility] [place] [address] [id number] [place] [id number] Jun, [facility] [address]00565100[place], [place] [address] May, [facility] [place] [address] [id number][place] [address] Apr, [facility] [place] [address] [id number] [place] [id number] March, [facility] [place] [address] [id number][place] [id number] Feb, [facility] [place] [address] [id number] [place] [id number] Jan, [facility] [place] [address] [id number][place] [id number] Nov, [facility] [address] [address] Sep, [facility] [id number] [place] [phone] Sep, [facility] [address] [facility] [id number] [place] [address] Aug, [facility] [address] [facility] [id number], [place] [address] Apr, [facility] [address] [facility] [id number] [place] [address] March, IMMUNIZATIONS No Known Immunizations SOCIAL HISTORY Never Assessed REASON FOR VISIT Repository refills PLAN OF CARE VITAL SIGNS MEDICATIONS Medication Instructions Dosage Frequency Start Date End Date Duration Status Fluoxetine 40 mg Orally Once a day 2 capsule in the morning 24h 0 days Active Seroquel 25 MG Orally at bedtime as needed 1 tablet 0 days Active Singulair 10 mg Orally Once a day 1 tablet in the evening 24h Apr, 0 days Active Gabapentin 300 MG Orally 3 times a day 1 capsule 8h 0 days Active Diclofenac Sodium 25 MG Orally Three times a day 2 tablet with food or milk 8h Jan, 0 days Active ProAir HFA 108 (90 Base) MCG/ACT Inhalation every 4 hrs as needed 2 puffs 0 days Active Levothyroxine Sodium 25 MCG Orally Once a day half a tablet on an empty stomach in the morning 24h May, 0 days Active RESULTS No Results [...]
--- OUTSIDE RECORDS SUMMARY | 2018-11-11 16:49 | XMS REPORT ---
Author Author TARIQ TATE Organization 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 Name Role Phone TARIQ TATE Unavailable PROBLEMS Type Condition ICD9-CM Code GEX28-YG Code Onset Dates Condition Status SNOMED Code Problem Hip bursitis, left M70.72 Active 84091952 Problem Moderate episode of recurrent major depressive disorder F33.1 Active 779898493 Problem Sciatic leg pain M54.30 Active 77957090 Problem Other depression F32.8 Active 79561679 Problem Osteoarthritis of both knees, unspecified osteoarthritis type M17.0 Active 713010112 Problem Chronic obstructive pulmonary disease, unspecified COPD type J44.9 Active 26955534 Problem Arthralgia of right temporomandibular joint M26.62 Active 65121929 ALLERGIES No Information ENCOUNTERS Encounter Location Date Diagnosis [place] [id number] [place] [address] [id number] Jun, [place] [id number] [place] [address] [id number] Jun, [place] [id number] [place] [address] [id number] May, Sciatic leg pain M54.30 [facility] [id number] [place] [address] [id number] May, Chronic obstructive pulmonary disease, unspecified COPD type J44.[address] [place] [address] [id number] [id number] May, [facility] [id number] [place] [address] [id number] Apr, Moderate episode of recurrent major depressive disorder F33.1 ; Sciatic leg pain M54.30 and Chronic obstructive pulmonary disease, unspecified COPD type J44.9 [facility] [id number] [place] [address] [id number] March, [facility] [address] [id number], [place] [phone] Feb, Sciatic leg pain M54.[address] [facility] [address] [id number], [place] [id number] Feb, [facility] [address] [id number], [place] 748753469 Dec, Moderate episode of recurrent major depressive disorder F33.1 ; Sciatic leg pain M54.30 ; Chronic obstructive pulmonary disease, unspecified COPD type J44.9 and Screening for thyroid disorder Z13.29 [facility] [address] [id number], [place] [phone] Dec, Chronic obstructive pulmonary disease, unspecified COPD type J44.9 [facility] [place] [address] [id number], [place] 638497082 Nov, Sciatic leg pain M54.30 [facility] [address] [address] [id number], [place] [id number] Oct, [facility] [address] [id number], [place] [id number] Oct, Acute pain of right shoulder M25.511 [facility] [address] [id number], [place] [phone] Oct, Chronic obstructive pulmonary disease, unspecified COPD type J44.9 [facility] [place] [address] [id number], [place] [id number] Oct, [facility] [address] [id number], [place] [id number] Sep, Chronic obstructive pulmonary disease, unspecified COPD type J44.9 and Sciatic leg pain M54.30 [facility] [address] [id number], [place] [id number] Aug, Moderate episode of recurrent major depressive disorder F33.1 and Chronic obstructive pulmonary disease, unspecified COPD type J44.9 [facility] [address] [id number], [place] [id number] Aug, Moderate episode of recurrent major depressive disorder F33.1 [facility] [address] [id number], [place] [id number] Jul, Other depression F32.8 and Chronic obstructive pulmonary disease, unspecified COPD type J44.9 [facility] [place] [id number] [place] [address] [id number] Jul, Moderate episode of recurrent major depressive disorder F33.1 [facility] [place] [address] [facility] [id number], [place] [id number] Jun, [facility] [id number] [place] [address] [id number] Jun, Moderate episode of recurrent major depressive disorder F33.1 [facility] [place] [id number] [place] [address] [id number] Jun, Moderate episode of recurrent major depressive disorder F33.1 [facility] [place] [id number] [place] [address] [id number] Jun, [facility] [place] [address] [id number] [place] [address] [id number] Jun, Sciatic leg pain M54.30 [facility] [place] [address] [id number], [place] [id number] Jun, [facility] [place] [address] [id number] [place] [address] [id number] May, Screening for thyroid disorder Z13.29 and Screening for lipid disorders Z13.220 [facility] [place] [id number] [place] [address] [id number] May, Other depression F32.8 [facility] [place] [address] [id number], [place] 096692217 Apr, Sciatic leg pain M54.30 [facility] [place] [address] [id number], [place] [id number] Apr, Screening for lipid disorders Z13.220 ; Screening for thyroid disorder Z13.29 and Chronic obstructive pulmonary disease, unspecified COPD type J44.9 [facility] [address] [id number], [place] [id number] Apr, Screening for lipid disorders Z13.220 ; Screening for thyroid disorder Z13.29 and Chronic obstructive pulmonary disease, unspecified COPD type J44.9 [facility] [address] [id number], [place] [id number] Apr, [facility] [address] [id number] [place] [address] [id number] Apr, Chronic obstructive pulmonary disease, unspecified COPD type J44.9 [facility] [place] [address] [place], [place] [address] [id number] [place] [address] March [facility] [address] [id number] [place] [address] [id number] March, Sciatic leg pain M54.30 and Other depression F32.8 [facility] [place] [address] [id number] [place] [address] [id number] March, [facility] [place] [address] [id number] [place] [address] [id number] Jan, Other depression F32.8 and Sciatic leg pain M54.30 [facility] [place] [address] [id number] [place] [address] [id number] Jan, Sciatic leg pain M54.30 [facility] [place] [address] [id number] [place] [address] [id number] Dec, Other depression F32.8 [facility] [place] [address] [id number] [place] [address] [id number] Dec, Chronic obstructive pulmonary disease, unspecified COPD type J44.9 [facility] [place] [address] [id number] [place] [address] [id number] Nov, [facility] [place] [address] [id number] [place] [address] [id number] Oct, Other depression F32.8 and Chronic obstructive pulmonary disease, unspecified COPD type J44.9 [facility] [place] [id number] [place] [address] [id number] Aug, [facility] [place] [address] [id number] [place] [address] [id number] Aug, Other depression F32.8 ; Arthralgia of right temporomandibular joint M26.62 and Encounter for immunization Z23 [facility] [place] [address] [id number] [place] [address] [id number] Aug, Encounter for well woman exam Z01.419 [facility] [id number], [place] [id number] Jul, Other depression F32.8 and Arthralgia of right temporomandibular joint M26.62 [facility] [address] [id number], [place] [id number] Jun, [facility] [place] [address] [address] [id number] [place] [address] Jun [facility] [address] [place] [address] [id number] [place] [address] [id number] Jun, [facility] [place] [address] [address] [id number] [place] [address] [id number] Jun, Other depression F32.8 and Urinary tract infection without hematuria, site unspecified N39.0 [facility] [place] [id number] [place] [address] [id number] Apr, [facility] [place] [id number] [place] [address] [id number] Apr, Dysuria R30.0 [facility] [address]005[address] [address]- [address] March, [facility] [place] [id number] [place] [address] [id number] March, Urinary tract infection, site unspecified N39.0 [facility] [place] [id number] [place] [address] [id number] March, Urinary tract infection, site unspecified N39.0 [facility] [place] [id number] [place] [address] [id number] Feb, [facility] [place] [id number] [place] [address] [id number] Feb, Headache R51 and Ear pain H92.09 [facility] [place] [id number] [place] [address] [id number] Jan, Osteoarthritis of both knees, unspecified osteoarthritis type M17.0 and Hip bursitis, left M70.72 [facility] [place] [id number] [place] [address] [id number] Jan, [facility] [address] [facility] [id number], [place] [phone] Dec, Unspecified arthropathy, site unspecified 716.90 and COPD (chronic obstructive pulmonary disease) 496 [facility] [id number], [place] [id number] Dec, [facility] [id number], [place] [id number] Nov, [facility] [id number] [place] [address] [id number] Oct, [facility] [id number], [place] [id number] Sep, [facility] [id number] [place] [address] [id number] Sep, [facility] [id number], [place] [id number] Aug, [address] [id number][place] [id number] Aug, [facility] [id number], [place] [id number] Aug, Urinary tract infection N39.0 and Shoulder strain, right, initial encounter S46.911A [place] [id number] [place] [address] [id number] Aug, Screening breast examination Z12.39 and Encounter for immunization Z23 [address]00565100[place], [place] [id number] Aug, [facility] [place] [id number] [id number] Aug, [facility] [address] [facility] [id number], [place] [id number] Jul, [place] [id number] [place] [address] [id number] Jun, [place] [id number], [place] [id number] Jun, Allergic rhinitis, cause unspecified 477.9 and Cough 786.2 [id number] [place] [address] [id number] May, [facility] [address] [place] [id number], [place] [id number] May, [facility] [id number], [place] [id number] May, Visit for suture removal V58.32 [facility] [id number], [place] [id number] May, Dog bite 879.8 [facility] [id number], [place] [id number] Apr, Rib pain on right side 786.50 [facility] [id number], [place] [id number] Apr, [facility] [id number], [place] [id number] Apr, Allergic rhinitis, cause unspecified 477.9 and Cough 786.2 [facility] [id number], [place] [id number] March, [facility] [id number], [place] [id number] March, [facility] [address] [place] [address] [id number], [place] [id number] March, [facility] [address] [place] [address] [id number], [place] [id number] March, [facility] [id number], [place] [id number] March, Cough 786.2 and Shortness of breath 786.05 [facility] [address] [place] [address] [id number], [place] [id number] March, [facility] [address] [place] [address] [id number], [place] [id number] March, Cough 786.2 ; COPD (chronic obstructive pulmonary disease) 496 and Allergic rhinitis, cause unspecified 477.9 [facility] [address] [place] [address] [id number], [place] [id number] Feb, Allergic rhinitis, cause unspecified 477.9 ; Cough 786.2 and COPD ( chronic obstructive pulmonary disease) 496 [facility] [address] [id number], [place] [address] 14 Feb, 2015 [facility] [place] [facility] [address] [facility] [id number], [place] [address]- 8[address] Feb, [facility] [place] [facility] [address] [facility] [id number], [place] [address] 2546 Jan, [facility] [place] [facility] [address] [facility] [id number], [place] [address]- 8626 Jan, [facility] [place] [facility] [address] [facility] [id number], [place] [address]- 2546 Jan, [facility] [address] [facility] [id number], [place] [id number] Jan, [facility] [place] [facility] [address] [id number], [place] [address]- 1396 Jan, [facility] [id number], [place] [id number] Dec, [facility] [place] [facility] [address] [id number], [place] [address]- 1036 Dec, [facility] [address] [place] [id number], [place] [id number] Dec, [facility] [place] [facility] [address]00565100[place], [place] [address]- 2546 Dec, [facility] [id number], [place] [id number] Dec, [facility] [place] [facility] [address] [facility] [id number], [place] [address]- 2546 Dec, [facility] [place] [facility] [address] [facility] [id number], [place] [address]- 2546 Dec, [facility] [address] [facility] [id number], [place] [id number] Nov, [facility] [place] [facility] [address] [facility] [id number], [place] [address]- 5676 Nov, [facility] [place] [facility] [address] [facility] [id number], [place] [address]- 8978 Nov, [facility] [address] [id number], [place] 536767091 Nov, [facility] [place] [facility] [address] [facility] [id number], [place] [address]- 5[address] Nov, [facility] [address] [id number], [place] [id number] Oct, [facility] [place] [facility] [address] [facility] [id number], [place] [address]- 405[address] Oct, [facility] [address] [id number], [place] 886935032 Sep, [facility] [place] [facility] [address] [facility] [id number], [place] [address]- 5300 Sep, [facility] [address] [facility] [id number], [place] [id number] Sep, [facility] [place] [facility] [address]00565100[place], [place] [address]- 3[address] Sep, [facility] [address] [facility] [id number], [place] [id number] Aug, [facility] [place] [facility] [address]00565100[place], [place] [address]- 5517 Aug, [facility] [address] [facility] [id number], [place] 051737346 Aug, [facility] [place] [facility] [address]00565100[place], [place] [address]- 2617 Aug, [facility] [place] [facility] [address] [facility] [id number], [place] [address]- 74[address] Jul, [facility] [address] [id number], [place] 953165572 Jul, [facility] [address] [id number], [place] 501811712 Jul, [facility] [address] [id number], [place] 755643741 Jul, [facility] [place] [facility] [address] [facility] [id number], [place] [address]- 8114 Jul, [facility] [place] [facility] [address] [facility] [id number] [place] [address]- 1379 Jul, [facility] [place] [facility] [address] [facility] [id number], [place] [address]- 2181 Jul, [facility] [place] [facility] [address] [facility] [id number], [place] [address]- 4406 Jul, [facility] [address] [facility] [id number], [place] 313824675 Jun, [facility] [place] [facility] [address] [facility] [id number] [place] [address]- 8591 Jun, [facility] [place] [facility] [address] [facility] [id number], [place] [address]- 6090 Jun, [facility] [address] [facility] [id number], [place] 017994791 Jun, [facility] [place] [facility] [address] [facility] [id number], [place] [address]- 0054 Jun, [facility] [address] [facility] [id number], [place] 925543680 Jun, [facility] [place] [facility] [address] [facility] [id number], [place] [address]- 1716 Jun, [facility] [address] [facility] [id number], [place] 677147697 Apr, [facility] [place] [facility] [address] [facility] [id number], [place] [address]- 9254 Apr, [facility] [address] [facility] [id number], [place] 258537530 Apr, [facility] [place] [facility] [address] [facility] [id number], [place] [address]- 1125 Apr, [facility] [address] [facility] [id number], [place] [id number] Apr, [facility] [place] [facility] [address] [facility] [id number], [place] [address]- 0115 Apr, [facility] [place] [facility] [address] [facility] [id number], [place] [address]- 9087 March, [facility] [place] [facility] [address] [facility] [id number], [place] [address]- 6072 March, [facility] [address] [id number] [place] [id number] March, [facility] [address] [facility] [id number] [place] 828398311 Feb, [facility] [place] [facility] [address] [facility] [id number], [place] [address] 2543 Feb, [facility] [address] [facility] [id number] [place] 155963722 Jan, [facility] [place] [facility] [address] [facility] [id number], [place] [address]- 5246 Jan, [facility] [id number], [place] 045874408 Dec, [facility] [place] [facility] [address] [facility] [id number], [place] [address]- 2675 Dec, [facility] [address] [facility] [id number], [place] [id number] Dec, [facility] [place] [facility] [address]00565100[place], [place] [address]- 4398 Dec, [facility] [place] [facility] [address]00565100[place], [place] [address]- 5248 Dec, [facility] [place] [facility] [address] [facility] [id number], [place] [address]- 8255 Dec, [facility] [address] [facility] [id number], [place] 390452479 Nov, [facility] [place] [facility] [address] [facility] [id number], [place] [address]- 4196 Nov, [facility] [address] [facility] [id number], [place] [id number] Nov, [facility] [place] [facility] [address] [facility] [id number] [place] [address]- 2546 Nov, [facility] [address] [id number] [place] [id number] Nov, [facility] [address] [facility] [id number], [place] [address]- 2546 Nov, [facility] [address] [id number] [place] [id number] Oct, [facility] [address] [facility] [id number], [place] [address]- 2546 Oct, [facility] [address] [facility] [id number] [place] [address]- 2546 Oct, [facility] [address] [id number] [place] [id number] Oct, [facility] [address] [id number], [place] [address]- 2546 Sep, [facility] [address] [id number] [address]- 2546 Sep, [facility] [address] [id number], [place] [id number] Sep, [facility] [address] [facility] [id number], [place] [address]- 2546 Sep, [facility] [address] [id number], [place] [id number] Aug, [facility] [address] [facility] [id number], [place] [address] Aug, [facility] [place] [address] [id number] [place] [id number] Jul, [facility] [place] [address] [id number] [place] [id number] Jul, [facility] [place] [address] [id number] [place] [id number] Jun, [facility] [place] [address] [id number] [place] [id number] May, [facility] [place] [address] [id number] [place] [id number] May, [facility] [place] [facility] [address] [facility] [id number], [place] [address] May, [facility] [place] [address] [id number] [place] [id number] Apr, [facility] [place] [address] [id number] [place] [id number] Apr, [facility] [place] [address] [id number] [place] [id number] March, [facility] [place] [address] [id number] [place] [id number] Feb, [facility] [place] [address] [id number] [place] [id number] Feb, [facility] [place] [address] [id number] [place] [id number] Jan, [facility] [place] [address] [id number] [place] [id number] Jan, [facility] [place] [address] [id number] [place] [id number] Dec, [facility] [place] [address] [id number] [place] [id number] Nov, [facility] [place] [facility] [id number], [place] [address] Oct, [facility] [place] [facility] [id number], [place] [address] Oct, [facility] [place] [address] [id number] [place] [id number] Oct, [facility] [place] [facility] [address] [facility] [id number], [place] [address] Oct, [facility] [place] [facility] [address] [facility] [id number], [place] [address] Oct, [facility] [place] [address] [id number] [place] [id number] Oct, [facility] [place] [address] [id number] [place] [id number] Sep, [facility] [place] [facility] [id number], [place] [address] Sep, [facility] [place] [address] [id number] [place] [id number] Sep, [facility] [place] [facility] [address] [facility] [id number], [place] [address] Sep, [facility] [place] [address] [id number] [place] [id number] Aug, [facility] [place] [facility] [address] [facility] [id number] [place] [address] Aug, [facility] [place] [address] [id number] [place] [id number] Aug, [facility] [place] [address] [id number] [place] [id number] Jun, [facility] [place] [address] [id number] [place] [id number] Jun, [facility] [place] [facility] [address] [facility] [id number], [place] [address] May, [facility] [place] [address] [id number] [place] [id number] Apr, [facility] [place] [address] [id number] [place] [id number] March, [facility] [place] [address] [id number] [place] [id number] Feb, [facility] [place] [address] [id number] [place] [id number] Jan, [facility] [place] [address] [id number] [place] [id number] Nov, [facility] [place] [facility] [address] [facility] [id number], [place] [address] Sep, [facility] [place] [facility] [address] [facility] [id number], [place] [address] Sep, [facility] [place] [facility] [address] [facility] [id number], [place] [address] Aug, [facility] [place] [facility] [id number] [address] Apr, [facility] [address] [facility] [facility] [id number] [place] [id number] March, IMMUNIZATIONS No Known Immunizations SOCIAL HISTORY [...]
--- OUTSIDE RECORDS SUMMARY | 2018-11-11 16:50 | XMS REPORT ---
Author Author TARIQ TATE [facility] Address [address] [place] [address] Care Team Providers Care Disc Inspector Name Role Phone TARIQ TATE Unavailable PROBLEMS Type Condition ICD9-CM Code OOR07-PD Code Onset Dates Condition Status SNOMED Code Problem Hip bursitis, left M70.72 Active 63930776 Problem Moderate episode of recurrent major depressive disorder F33.1 Active 824284220 Problem Sciatic leg pain M54.30 Active 12250063 Problem Other depression F32.8 Active 99094974 Problem Osteoarthritis of both knees, unspecified osteoarthritis type M17.0 Active 145219345 Problem Chronic obstructive pulmonary disease, unspecified COPD type J44.9 Active 42153782 Problem Arthralgia of right temporomandibular joint M26.62 Active 66503985 ALLERGIES No Information ENCOUNTERS Encounter Location Date Diagnosis [facility] [id number] [place] [address] [id number] Jun, [place] [id number] [place] [address] [id number] May, Sciatic leg pain M54.30 [place] [id number] [place] [id number] May, Chronic obstructive pulmonary disease, unspecified COPD type J44.[address] [id number] [place] [id number] May, [place] [id number] SPRINGS[place] [id number] Apr, Moderate episode of recurrent major depressive disorder F33.1 ; Sciatic leg pain M54.30 and Chronic obstructive pulmonary disease, unspecified COPD type J44.9 [facility] [address] [facility] [id number] [place] [id number] March, [facility] [id number] [place] [address] [id number] Feb, Sciatic leg pain M54.30 [facility] [address] [id number] [place] [id number] Feb, [facility] [place] [id number] [place] [id number] Dec, Moderate episode of recurrent major depressive disorder F33.1 ; Sciatic leg pain M54.30 ; Chronic obstructive pulmonary disease, unspecified COPD type J44.9 and Screening for thyroid disorder Z13.29 [facility] [address] [id number] [place] [id number] Dec, Chronic obstructive pulmonary disease, unspecified COPD type J44.9 [facility] [id number] [place] [address] [id number] Nov, Sciatic leg pain M54.30 [facility] [address] [facility] [address] [id number] [place] [id number] Oct, [facility] [address] [id number] SPRINGS[place] 247221229 Oct, Acute pain of right shoulder M25.511 [facility] [address] [id number] [place] [id number] Oct, Chronic obstructive pulmonary disease, unspecified COPD type J44.9 [facility] [address] [id number] [place] [id number] Oct, [facility] [address] [id number] [place] [id number] Sep, Chronic obstructive pulmonary disease, unspecified COPD type J44.9 and Sciatic leg pain M54.30 [facility] [address] [id number] [place] [id number] Aug, Moderate episode of recurrent major depressive disorder F33.1 and Chronic obstructive pulmonary disease, unspecified COPD type J44.9 [facility] [address] [id number] [place] 636852851 Aug, Moderate episode of recurrent major depressive disorder F33.1 [facility] [id number] [place] 515432028 Jul, Other depression F32.8 and Chronic obstructive pulmonary disease, unspecified COPD type J44.9 [facility] [address] [id number] [place] [id number] Jul, Moderate episode of recurrent major depressive disorder F33.1 [facility] Holly0 [facility] [address] [id number] [place] [id number] Jun, [facility] [address] [id number] [place] [id number] Jun, Moderate episode of recurrent major depressive disorder F33.1 [facility] [address] [id number] [place] [id number] Jun, Moderate episode of recurrent major depressive disorder F33.1 [facility] [id number] [place] [address] [id number] Jun, [facility] [address] [id number] [place] [address] [id number] Jun, Sciatic leg pain M54.30 [facility] [id number] [place] [address] [id number] Jun, [facility] [address] [id number] [place] [address] [id number] May, Screening for thyroid disorder Z13.29 and Screening for lipid disorders Z13.220 [facility] [id number] [place] [address] [id number] May, Other depression F32.8 [facility] [address] [id number] [place] [id number] Apr, Sciatic leg pain M54.30 [facility] [address] [id number] [place] [id number] Apr, Screening for lipid disorders Z13.220 ; Screening for thyroid disorder Z13.29 and Chronic obstructive pulmonary disease, unspecified COPD type J44.9 [facility] [id number] [place] [address] [id number] Apr, Screening for lipid disorders Z13.220 ; Screening for thyroid disorder Z13.29 and Chronic obstructive pulmonary disease, unspecified COPD type J44.9 [facility] [address] [id number] [place] [id number] Apr, [facility] [address] [id number] [place] [id number] Apr, Chronic obstructive pulmonary disease, unspecified COPD type J44.9 [facility] [place] [id number] [address] March [facility] [address] [id number] [place] [id number] March, Sciatic leg pain M54.30 and Other depression F32.8 [facility] [address] [id number] [place] [id number] March, [facility] [id number] [place] [address] [id number] Jan, Other depression F32.8 and Sciatic leg pain M54.30 [facility] [id number] [place] [address] [id number] Jan, Sciatic leg pain M54.30 [facility] [address] [id number] [place] [id number] Dec, Other depression F32.8 [facility] [address] [id number] [place] [id number] Dec, Chronic obstructive pulmonary disease, unspecified COPD type J44.9 [facility] [address] [id number] [place] [id number] Nov, [facility] [address] [id number] [place] 412431287 Oct, Other depression F32.8 and Chronic obstructive pulmonary disease, unspecified COPD type J44.9 [facility] [address] [id number] [place] [id number] Aug, [facility] [address] [id number] [place] [id number] Aug, Other depression F32.8 ; Arthralgia of right temporomandibular joint M26.62 and Encounter for immunization Z23 [facility] [address] [id number] [place] [id number] Aug, Encounter for well woman exam Z01.419 [facility] [id number] [place] [address] [id number] Jul, Other depression F32.8 and Arthralgia of right temporomandibular joint M26.62 [facility] [id number] [place] [address] [id number] Jun, [facility] [place] [id number] [place] [address] Jun [facility] [id number] [place] [address] [id number] Jun, [facility] [id number] [place] [address] [id number] Jun, Other depression F32.8 and Urinary tract infection without hematuria, site unspecified N39.0 [facility] [id number] [place] [address] [id number] Apr, [facility] [id number] [place] [address] [id number] Apr, Dysuria R30.0 [facility] [address]005[place]100[place] [address] March, [facility] [id number] [place] [address] [id number] March, Urinary tract infection, site unspecified N39.0 [facility] [id number] [place] [address] [id number] March, Urinary tract infection, site unspecified N39.0 [facility] [id number] [place] [address] [id number] Feb, [facility] [id number] [place] [address] [id number] Feb, Headache R51 and Ear pain H92.09 [facility] [id number] [place] [address] [id number] Jan, Osteoarthritis of both knees, unspecified osteoarthritis type M17.0 and Hip bursitis, left M70.72 [facility] [address] [id number] [place] [id number] Jan, [facility] [id number] [place] [address] [id number] Dec, Unspecified arthropathy, site unspecified 716.90 and COPD (chronic obstructive pulmonary disease) 496 [facility] [address] [facility] [id number] [place] [id number] Dec, [facility] [id number] [place] [id number] Nov, [facility] [address] [place] [id number] [place] [id number] Oct, [facility] [id number] [place] [address] [id number] Sep, [facility] [address] [facility] [id number] [place] [id number] Sep, [facility] [id number] [place] [id number] Aug, [address] [id number] [place] [id number] Aug, [facility] [id number] [place] [id number] Aug, Urinary tract infection N39.0 and Shoulder strain, right, initial encounter S46.911A [facility] [id number] [place] [id number] Aug, Screening breast examination Z12.39 and Encounter for immunization Z23 [facility] [id number] [place] [id number] Aug, [facility] [place] [address] [facility] [id number] [id number] Aug, [facility] [address] [facility] [id number] [place] [id number] Jul, [facility] [address] [facility] [id number] [place], [place] [id number] Jun, [facility] [id number] [place] [address] [id number] Jun, Allergic rhinitis, cause unspecified 477.9 and Cough 786.2 [facility] [id number] [place] [id number] May, [facility] [id number] [place] [address] [id number] May, [facility] [address] [place] [id number] [place] [address] [id number] May, Visit for suture removal V58.32 [facility] [id number] [place] [address] [id number] May, Dog bite 879.8 [facility] [id number] [place] [address] [id number] Apr, Rib pain on right side 786.50 [facility] [id number] [place] [address] [id number] Apr, [facility] [id number] [place] [address] [id number] Apr, Allergic rhinitis, cause unspecified 477.9 and Cough 786.2 [facility] [id number] [place] [address] [id number] March, [facility] [id number] [place] [address] [id number] March, [facility] [id number] [place] [address] [id number] March, [facility] [id number] [place] [address] [id number] March, [facility] [id number] [place] [address] [id number] March, Cough 786.2 and Shortness of breath 786.05 [facility] [id number] [place] [address] [id number] March, [facility] [id number] [place] [address] [id number] March, Cough 786.2 ; COPD (chronic obstructive pulmonary disease) 496 and Allergic rhinitis, cause unspecified 477.9 [facility] [id number] [place] [address] [id number] Feb, Allergic rhinitis, cause unspecified 477.9 ; Cough 786.2 and COPD ( chronic obstructive pulmonary disease) 496 [facility] [id number] [place] [address] [id number] Feb, [facility] [address] [facility] [id number] [address]- 6[address] Feb, [facility] [address] [facility] [id number] [address]- [address] Jan, [facility] [address] [facility] [id number], [place] [address]- 2546 Jan, [facility] [address] [facility] [id number], [place] [address]- 6126 Jan, [facility] [address] [facility] [id number] [place] [id number] Jan, [facility] [address] [facility] [id number], [place] [address]- 7776 Jan, [facility] [address] [facility] [id number] [place] [id number] Dec, [facility] [address] [facility] [id number], [place] [address]- 3756 Dec, [facility] [address] [facility] [id number] [place] [id number] Dec, [facility] [address] [facility] [id number] [address] 2546 Dec, [facility] [address] [facility] [id number] [place] [id number] Dec, [facility] [address] [place] [id number], [place] [address]- 2546 Dec, [facility] [address] [facility] [id number], [place] [address]- 2546 Dec, [facility] [address] [facility] [id number] [place] [id number] Nov, [facility] [address] [facility] [id number][place] [address]- 2546 Nov, [facility] [address] [facility] [id number], [place] [address]- 2546 Nov, [facility] [address] [facility] [id number] [place] [id number] Nov, [facility] [address] [id number], [place] [address]- 8456 Nov, [facility] [address] [id number] [place] [id number] Oct, [facility] [address] [facility] [id number], [place] [address]- 3178 Oct, [facility] [address] [id number] [place] [id number] Sep, [facility] [address] [facility] [id number], [place] [address]- 4905 Sep, [facility] [address] [facility] [id number] [place] 023641183 Sep, [facility] [address]00565100[place], [place] [address]- 7817 Sep, [facility] [address] [facility] [id number] [place] [id number] Aug, [facility] [address] [facility] [id number], [place] 260564- 45[address] Aug, [facility] [address] [facility] [id number] [place] [id number] Aug, [facility] [address] [facility] [id number][place] 759[place]- 6940 Aug, [facility] [address] [facility] [id number], [place] [address]- 0070 Jul, [facility] [address] [id number] [place] [id number] Jul, [facility] [address] [id number] [place] [id number] Jul, [facility] [address] [facility] [id number] [place] [id number] Jul, [facility] [address] [facility] [id number], [place] [address]- 2358 Jul, [facility] [address] [facility] [id number], [place] [address]- 4422 Jul, [facility] [address] [facility] [id number], [place] [address]- 1520 Jul, [facility] [address] [facility] [id number], [place] [address]- 3102 Jul, [facility] [address] [facility] [id number] [place] [id number] Jun, [facility] [address] [facility] [id number], [place] [address]- 0424 Jun, [facility] [address] [facility] [id number][place] [address]- 5622 Jun, [facility] [address] [facility] [id number] [place] [id number] Jun, [facility] [address]00565100[place], [place] [address]- 0368 Jun, [facility] [address] [id number] [place] [id number] Jun, [facility] [address] [facility] [id number][place] [address]- 4631 Jun, [facility] [address] [facility] [id number] [place] [id number] Apr, [facility] [address] [facility] [id number], [place] [address]- 8654 Apr, [facility] [address] [facility] [id number] [place] 812243923 Apr, [facility] [address] [facility] [id number], [place] [address]- 7651 Apr, [facility] [address] [facility] [id number] [place] 136006724 Apr, [facility] [address] [facility] [id number] [address]- 1365 Apr, [facility] [address] [facility] [id number], [place] [address]- 2127 March, [facility] [address] [id number] [address]- 6369 March, [facility] [address] [id number] [place] [id number] March, [facility] [address] [id number] [place] [id number] Feb, [facility] [address] [facility] [id number], [place] [address]- 7741 Feb, [facility] [address] [id number] [place] [id number] Jan, [facility] [address] [facility] [id number][place] [address]- 8426 Jan, [facility] [address] [facility] [id number] [place] [id number] Dec, [facility] [address] [facility] [id number], [place] [address]- 2591 Dec, [facility] [address] [facility] [id number] [place]INGS[place] 923104964 Dec, [facility] [address] [facility] [id number], [place] [address]- 8267 Dec, [facility] [address] [facility] [id number], [place] [address]- 7666 Dec, [facility] [address] [facility] [id number], [place] [address]- 4923 Dec, [facility] [address] [facility] [id number] [place] [id number] Nov, [facility] [address] [facility] [id number][place] [address]- 6096 Nov, [facility] [address] [id number] [place] [id number] Nov, [facility] [address] [facility] [id number], [place] [address]- 5057 Nov, [facility] [address] [facility] [id number] [place] [id number] Nov, [facility] [address] [facility] [id number], [place] [address]- 2546 Nov, [facility] [address] [id number] [place] [id number] Oct, [facility] [address] [facility] [id number], [place] [address]- 5596 Oct, [facility] [address] [facility] [id number] [address]- 5576 Oct, [facility] [address] [facility] [id number] [place] [id number] Oct, [facility] [address] [facility] [id number], [place] [address]- 8852 Sep, [facility] [address]00565100[place], [place] [address]- 8751 Sep, [facility] [address] [facility] [id number] [place] [id number] Sep, [facility] [address] [facility] [id number], [place] [address] Sep, [facility] [place] [address] [facility] [id number] [place] [id number] Aug, [facility] [id number], [place] [address] Aug, [facility] [place] [address] [id number] [place] [id number] Jul, [facility] [place] [address] [id number] [place] [id number] Jul, [facility] [place] [address] [id number] [place] [id number] Jun, [facility] [place] [address] [id number] [place] [id number] May, [facility] [place] [address] [id number] [place] [id number] May, [facility] [id number], [place] [address] May, [facility] [place] [address] [id number] [place] [id number] Apr, [facility] [place] [address] [id number] [place] [id number] Apr, [facility] [place] [address] [id number] [place] [id number] March, [facility] [place] [address] [id number] [place] [id number] Feb, [facility] [place] [address] [id number] [place] [id number] Feb, [facility] [place] [address] [id number] [place] [id number] Jan, [facility] [place] [address] [id number] [place] [id number] Jan, [facility] [place] [address] [id number] [place] [id number] Dec, [facility] [place] [address] [id number] [place] [id number] Nov, [facility] [address] [facility] [id number], [place] [address] Oct, [facility] [address] [facility] [id number], [place] [address] Oct, [facility] [place] [address] [id number] [place] [id number] Oct, [facility] [address] [facility] [id number], [place] [address] Oct, [facility] [address] [facility] [id number], [place] [address] Oct, [facility] [place] [address] [id number] [place] [id number] Oct, [facility] [place] [address] [id number] [place] [id number] Sep, [facility] [address] [facility] [id number], [place] [address] Sep, [facility] [place] [address] [id number] [place] [id number] Sep, [facility] [address] [address] [id number] [address] Sep, [facility] [address] [id number] [place] [id number] Aug, [facility] [address] [facility] [id number], [place] [address] Aug, [facility] [address] [id number] [place] [id number] Aug, [facility] [address] [id number] [place] [id number] Jun, [facility] [address] [id number] [place] [id number] Jun, [facility] [address] [facility] [id number], [place] [address] May, [facility] [address] [id number] [place] [id number] Apr, [facility] [address] [id number] [place] [id number] March, [facility] [address] [id number] [place] [id number] Feb, [facility] [address] [id number] [place] [id number] Jan, [facility] [address] [id number] [place] [id number] Nov, [facility] [address] [facility] [id number], [place] [address] Sep, [facility] [address] [facility] [id number], [place] [address] Sep, [facility] [address] [facility] [id number][place] [id number] Aug, [facility] [address] [facility] [id number], [place] [address] Apr, [facility] [address] [id number] [place] [address] March, IMMUNIZATIONS No Known Immunizations SOCIAL HISTORY Never Assessed REASON FOR VISIT pals received PLAN OF CARE VITAL SIGNS MEDICATIONS Unknown [...]
--- OUTSIDE RECORDS SUMMARY | 2018-11-11 16:50 | XMS REPORT ---
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 Name Role Phone TARIQ TATE Unavailable PROBLEMS Type Condition ICD9-CM Code ELZ83-RY Code Onset Dates Condition Status SNOMED Code Problem Hip bursitis, left M70.72 Active 09836676 Problem Moderate episode of recurrent major depressive disorder F33.1 Active 019345348 Problem Sciatic leg pain M54.30 Active 34442095 Problem Other depression F32.8 Active 59991693 Problem Osteoarthritis of both knees, unspecified osteoarthritis type M17.0 Active 044865203 Problem Chronic obstructive pulmonary disease, unspecified COPD type J44.9 Active 11556637 Problem Arthralgia of right temporomandibular joint M26.62 Active 93727349 ALLERGIES No Information ENCOUNTERS Encounter Location Date Diagnosis [facility] [id number] [place] [address] [id number] Jun, [place] [id number] [place] [address] [phone] May, Sciatic leg pain M54.30 [place] [id number], [place] [id number] May, Chronic obstructive pulmonary disease, unspecified COPD type J44.[address] [id number] [id number] May, [place] [id number], [place] [id number] Apr, Moderate episode of recurrent major depressive disorder F33.1 ; Sciatic leg pain M54.30 and Chronic obstructive pulmonary disease, unspecified COPD type J44.9 [facility] [address] [facility] [id number] [place] [address] [id number] March, [facility] [id number] [place] [address] [id number] Feb, Sciatic leg pain M54.30 [facility] [address] [id number][place] [phone] Feb, [facility] [id number], [place] [id number] Dec, Moderate episode of recurrent major depressive disorder F33.1 ; Sciatic leg pain M54.30 ; Chronic obstructive pulmonary disease, unspecified COPD type J44.9 and Screening for thyroid disorder Z13.29 [facility] [address] [id number], [place] [id number] Dec, Chronic obstructive pulmonary disease, unspecified COPD type J44.9 [facility] [id number] [place] [address] [id number] Nov, Sciatic leg pain M54.30 [facility] [address] [facility] [address] [id number], [place] [id number] Oct, [facility] [address] [id number], [place] [id number] Oct, Acute pain of right shoulder M25.511 [facility] [place] [address] [id number], [place] 744822805 Oct, Chronic obstructive pulmonary disease, unspecified COPD type J44.9 [facility] [address] [id number], [place] [id number] Oct, [facility] [address] [id number], [place] 721724661 Sep, Chronic obstructive pulmonary disease, unspecified COPD type J44.9 and Sciatic leg pain M54.30 [facility] [address] [id number], [place] [id number] Aug, Moderate episode of recurrent major depressive disorder F33.1 and Chronic obstructive pulmonary disease, unspecified COPD type J44.9 [facility] [address] [id number], [place] 616834455 Aug, Moderate episode of recurrent major depressive disorder F33.1 [facility] [id number], [place] 884632176 Jul, Other depression F32.8 and Chronic obstructive pulmonary disease, unspecified COPD type J44.9 [facility] [address] [id number], [place] [id number] Jul, Moderate episode of recurrent major depressive disorder F33.1 [facility] [facility] [address] [id number], [place] [id number] Jun, [facility] [address] [id number], [place] [id number] Jun, Moderate episode of recurrent major depressive disorder F33.1 [facility] [address] [id number], [place] 624513353 Jun, Moderate episode of recurrent major depressive disorder F33.1 [facility] [id number] [place] [address] [id number] Jun, [facility] [address] [id number] [place] [address] [id number] Jun, Sciatic leg pain M54.30 [facility] [place] [address] [id number] [place] [address] [id number] Jun, [facility] [address] [id number] [place] [address] [id number] May, Screening for thyroid disorder Z13.29 and Screening for lipid disorders Z13.220 [facility] [address] [id number] [place] [address] [id number] May, Other depression F32.8 [facility] [address] [id number], [place] [id number] Apr, Sciatic leg pain M54.30 [facility] [address] [id number], [place] [id number] Apr, Screening for lipid disorders Z13.220 ; Screening for thyroid disorder Z13.29 and Chronic obstructive pulmonary disease, unspecified COPD type J44.9 [facility] [id number] [place] [address] [id number] Apr, Screening for lipid disorders Z13.220 ; Screening for thyroid disorder Z13.29 and Chronic obstructive pulmonary disease, unspecified COPD type J44.9 [facility] [address] [id number], [place] [id number] Apr, [facility] [address] [id number], [place] [id number] Apr, Chronic obstructive pulmonary disease, unspecified COPD type J44.9 [facility] [id number] [address] March [facility] [address] [id number], [place] [id number] March, Sciatic leg pain M54.30 and Other depression F32.8 [facility] [address] [id number], [place] 154224287 March, [facility] [address] [id number] [place] [address] [id number] Jan, Other depression F32.8 and Sciatic leg pain M54.30 [facility] [address] [id number] [place] [address] [id number] Jan, Sciatic leg pain M54.30 [facility] [address] [id number], [place] [id number] Dec, Other depression F32.8 [facility] [address] [id number], [place] 115759075 Dec, Chronic obstructive pulmonary disease, unspecified COPD type J44.9 [facility] [address] [id number], [place] [id number] Nov, [facility] [address] [id number], [place] [id number] Oct, Other depression F32.8 and Chronic obstructive pulmonary disease, unspecified COPD type J44.9 [facility] [address] [id number], [place] [id number] Aug, [facility] [address] [id number], [place] [id number] Aug, Other depression F32.8 ; Arthralgia of right temporomandibular joint M26.62 and Encounter for immunization Z23 [facility] [address] [id number], [place] [id number] Aug, Encounter for well woman exam Z01.419 [facility] [id number] [place] [address] [id number] Jul, Other depression F32.8 and Arthralgia of right temporomandibular joint M26.62 [facility] [id number] [place] [address] [id number] Jun, [facility] [id number] [place] [address] Jun [facility] [id number] [place] [address] [id number] Jun, [facility] [id number] [place] [address] [id number] Jun, Other depression F32.8 and Urinary tract infection without hematuria, site unspecified N39.0 [facility] [id number] [place] [address] [id number] Apr, [facility] [id number] [place] [address] [id number] Apr, Dysuria R30.0 [facility] [address]00565100[place] [address] March, [facility] [place] [id number] [place] [address] [id number] March, Urinary tract infection, site unspecified N39.0 [facility] [id number] [place] [address] [id number] March, Urinary tract infection, site unspecified N39.0 [facility] [id number] [place] [address] [id number] Feb, [facility] [id number] [place] [address] [id number] Feb, Headache R51 and Ear pain H92.09 [facility] [id number] [place] [address] [id number] Jan, Osteoarthritis of both knees, unspecified osteoarthritis type M17.0 and Hip bursitis, left M70.72 [facility] [address] [id number], [place] [id number] Jan, [facility] [id number] [place] [address] [id number] Dec, Unspecified arthropathy, site unspecified 716.90 and COPD (chronic obstructive pulmonary disease) 496 [facility] [address] [facility] [id number], [place] [id number] Dec, [facility] [id number], [place] [id number] Nov, [facility] [address] [id number], [place] [id number] Oct, [facility] [id number] [place] [address] [id number] Sep, [facility] [address] [facility] [id number], [place] [id number] Sep, [facility] [id number], [place] [id number] Aug, [address] [id number], [place] [id number] Aug, [facility] [id number], [place] [id number] Aug, Urinary tract infection N39.0 and Shoulder strain, right, initial encounter S46.911A [facility] [id number], [place] [id number] Aug, Screening breast examination Z12.39 and Encounter for immunization Z23 [facility] [id number], [place] [id number] Aug, [facility] [address] [facility] [id number], [place] [id number] Aug, [facility] [address] [facility] [id number], [place] [id number] Jul, [facility] [address] [facility] [id number], [place] [id number] Jun, [facility] [id number] [place] [address] [id number] Jun, Allergic rhinitis, cause unspecified 477.9 and Cough 786.2 [facility] [id number], [place] [id number] May, [facility] [id number] [place] [address] [id number] May, [facility] [id number] [place] [address] [id number] May, Visit for suture removal V58.32 [facility] [id number] [place] [address] [id number] May, Dog bite 879.8 [facility] [id number] [place] [address] [id number] Apr, Rib pain on right side 786.50 [facility] [id number] [place] [address] [id number] Apr, [facility] [id number] [place] [address] [id number] Apr, Allergic rhinitis, cause unspecified 477.9 and Cough 786.2 [facility] [id number] [place] [address] [id number] March, [facility] [id number] [place] [address] [id number] March, [facility] [id number] [place] [address] [id number] March, [facility] [id number] [place] [address] [id number] March, [facility] [id number] [place] [address] [id number] March, Cough 786.2 and Shortness of breath 786.05 [facility] [id number] [place] [address] [id number] March, [facility] [id number] [place] [address] [id number] March, Cough 786.2 ; COPD (chronic obstructive pulmonary disease) 496 and Allergic rhinitis, cause unspecified 477.9 [facility] [id number] [place] [address] [id number] Feb, Allergic rhinitis, cause unspecified 477.9 ; Cough 786.2 and COPD ( chronic obstructive pulmonary disease) [address] [facility] [id number] [place] [address] [id number] 9924 Feb, [facility] [address] [facility] [id number][place] [address] Feb, [facility] [address] [facility] [id number][place] [address]- 2096 Jan, [facility] [address] [facility] [id number][place] [address]- 2546 Jan, [facility] [address] [facility] [id number], [place] [address]- 3426 Jan, [facility] [address] [facility] [id number], [place] [id number] Jan, [facility] [address] [facility] [id number], [place] [address]- 2326 Jan, [facility] [address] [facility] [id number], [place] [id number] Dec, [facility] [address] [facility] [id number][place] [address]- 2086 Dec, [facility] [address] [facility] [id number], [place] [id number] Dec, [facility] [address] [facility] [id number], [place] [address] 2546 Dec, [facility] [address] [facility] [id number], [place] [id number] Dec, [facility] [address] [id number], [place] [address]- 2546 Dec, [facility] [address] [facility] [id number][place] [address]- 2546 Dec, [facility] [address] [facility] [id number], [place] [id number] Nov, [facility] [address] [facility] [id number][place] [address]- 2546 Nov, [facility] [address] [facility] [id number], [place] [address]- 2546 Nov, [facility] [address] [facility] [id number], [place] [id number] Nov, [facility] [address] [id number], [place] [address]- 3[address] Nov, [facility] [address] [id number], [place] [id number] Oct, [facility] [address] [facility] [id number][place] [address]- 0457 Oct, [facility] [address] [id number], [place] [id number] Sep, [facility] [address] [facility] [id number], [place] [address]- 2902 Sep, [facility] [address] [facility] [id number], [place] 815778968 Sep, [facility] [address]00565100[place], [place] [address]- 1639 Sep, [facility] [address] [facility] [id number], [place] [id number] Aug, [facility] [address] [facility] [id number], [place] 342272- 9185 Aug, [facility] [address] [facility] [id number], [place] [id number] Aug, [facility] [address] [facility] [id number], [place] 377092- 0479 Aug, [facility] [address] [facility] [id number][place] [address]- 5595 Jul, [facility] [address] [id number], [place] 817531091 Jul, [facility] [address] [id number], [place] [id number] Jul, [facility] [address] [facility] [id number], [place] 865952649 Jul, [facility] [address] [facility] [id number][place] [address]- 6654 Jul, [facility] [address] [facility] [id number][place] [address]- 1300 Jul, [facility] [address] [facility] [id number][place] [address]- 4423 Jul, [facility] [address] [facility] [id number][place] [address]- 1436 Jul, [facility] [address] [facility] [id number], [place] [id number] Jun, [facility] [address] [facility] [id number][place] [address]- 0940 Jun, [facility] [address] [facility] [id number][place] [address]- 5765 Jun, [facility] [address] [facility] [id number], [place] [id number] Jun, [facility] [address]00565100[place], [place] [address]- 5606 Jun, [facility] [address] [id number], [place] [id number] Jun, [facility] [address] [facility] [id number][place] [address]- 9300 Jun, [facility] [address] [facility] [id number], [place] 685985247 Apr, [facility] [address] [facility] [id number], [place] [address]- 6043 Apr, [facility] [address] [facility] [id number], [place] 559601715 Apr, [facility] [address] [facility] [id number][place] [address]- 3583 Apr, [facility] [address] [facility] [id number], [place] [id number] Apr, [facility] [address] [facility] [id number], [place] [address]- 6684 Apr, [facility] [address] [facility] [id number][place] [address]- 7505 March, [facility] [address] [id number][place] [address]- 5808 March, [facility] [address] [id number] [place] [id number] March, [facility] [address] [id number] [place] [id number] Feb, [facility] [address] [facility] [id number][place] [address]- 3625 Feb, [facility] [address] [id number] [place] [id number] Jan, [facility] [address] [facility] [id number], [place] [address]- 3226 Jan, [facility] [address] [facility] [id number] [place] [id number] Dec, [facility] [address] [facility] [id number][place] [address]- 1972 Dec, [facility] [address] [facility] [id number], [place] 776011019 Dec, [facility] [address] [facility] [id number][place] [address]- 6129 Dec, [facility] [address] [facility] [id number], [place] [address]- 8876 Dec, [facility] [address] [facility] [id number][place] [address]- 2086 Dec, [facility] [address] [facility] [id number], [place] [id number] Nov, [facility] [address] [facility] [id number], [place] [address]- 8663 Nov, [facility] [address] [id number], [place] [id number] Nov, [facility] [address] [facility] [id number][place] [address]- 7786 Nov, [facility] [address] [facility] [id number], [place] [id number] Nov, [facility] [address] [facility] [id number][place] [address]- 2546 Nov, [facility] [address] [id number], [place] [id number] Oct, [facility] [address] [facility] [id number][place] [address]- 3216 Oct, [facility] [address] [facility] [id number][place] [address]- 6166 Oct, [facility] [address] [facility] [id number], [place] 530864100 Oct, [facility] [address] [facility] [id number], [place] [address]- 1673 Sep, [facility] [address]00565100[place], [place] [address]- 6756 Sep, [facility] [address] [facility] [id number], [place] [id number] Sep, [facility] [address] [facility] [id number], [place] [address] Sep, [facility] [place] [address] [facility] [id number][place] [id number] Aug, [facility] [id number], [place] [address] Aug, [facility] [place] [address] [id number] [id number] Jul, [facility] [place] [address] [id number][place] [id number] Jul, [facility] [place] [address] [id number][place] [id number] Jun, [facility] [place] [address] [id number][place] [id number] May, [facility] [place] [address] [id number][place] [id number] May, [facility] [id number], [place] [address] May, [facility] [place] [address] [id number] [place] [id number] Apr, [facility] [place] [address] [id number] [place] [id number] Apr, [facility] [place] [address] [id number] [place] [id number] March, [facility] [place] [address] [id number] [place] [id number] Feb, [facility] [place] [address] [id number] [place] [id number] Feb, [facility] [place] [address] [id number] [place] [id number] Jan, [facility] [place] [address] [id number] [place] [id number] Jan, [facility] [place] [address] [id number] [place] [id number] Dec, [facility] [place] [address] [id number] [place] [id number] Nov, [facility] [address] [facility] [id number], [place] [address] Oct, [facility] [address] [facility] [id number][place] [address] Oct, [facility] [place] [address] [id number][place] [id number] Oct, [facility] [address] [facility] [id number], [place] [address] Oct, [facility] [address] [facility] [id number], [place] [address] Oct, [facility] [place] [address] [id number] [place] [id number] Oct, [facility] [place] [address] [id number] [place] [id number] Sep, [facility] [address] [facility] [id number], [place] [address] Sep, [facility] [place] [address] [id number] [place] [id number] Sep, [facility] [address] [id number], [place] [address] Sep, [facility] [place] [address] [id number] [place] [id number] Aug, [facility] [address] [facility] [id number], [place] [address] Aug, [facility] [place] [address] [id number] [place] [id number] Aug, [facility] [place] [address] [id number] [place] [id number] Jun, [facility] [place] [address] [id number] [place] [id number] Jun, [facility] [address] [facility] [id number] [address] May, [facility] [address] [id number] [place] [id number] Apr, [facility] [address] [id number] [place] [id number] March, [facility] [address] [id number] [place] [id number] Feb, [facility] [address] [id number] [place] [id number] Jan, [facility] [address] [id number] [place] [id number] Nov, [facility] [address] [facility] [id number], [place] [address] Sep, [facility] [address] [facility] [id number], [place] [address] Sep, [facility] [address] [facility] [id number][place] [id number] Aug, [facility] [address] [facility] [id number][place] [address] Apr, [facility] [address] [id number] [place] [address] March, IMMUNIZATIONS No Known Immunizations SOCIAL HISTORY [...]
--- OUTSIDE RECORDS SUMMARY | 2018-11-11 16:51 | XMS REPORT ---
Author Author TARIQ TATE Organization [facility] Address [address] [place] [address] Care Team Providers Care Teacher Tutor Name Role Phone TARIQ TATE Unavailable PROBLEMS Type Condition ICD9-CM Code [id number] Code Onset Dates Condition Status SNOMED Code Problem Hip bursitis, left M70.72 Active 11161416 Problem Moderate episode of recurrent major depressive disorder F33.1 Active 981931915 Problem Sciatic leg pain M54.30 Active 80804017 Problem Other depression F32.8 Active 08170563 Problem Osteoarthritis of both knees, unspecified osteoarthritis type M17.0 Active 887415226 Problem Chronic obstructive pulmonary disease, unspecified COPD type J44.9 Active 25970997 Problem Arthralgia of right temporomandibular joint M26.62 Active 93255364 ALLERGIES Substance Reaction Event Type Date Status Sulfamethoxazole nausea and vomiting Drug Allergy Dec, Active ENCOUNTERS Encounter Location Date Diagnosis [facility] [address] [id number], [place] [id number] May, [place] [id number] [place] [address] [id number] Apr, Moderate episode of recurrent major depressive disorder F33.1 ; Sciatic leg pain M54.30 and Chronic obstructive pulmonary disease, unspecified COPD type J44.9 [facility] [address] [id number] [place] [id number] March, [facility] [id number] [place] [address] [id number] Feb, Sciatic leg pain M54.30 [facility] [address] [id number], [place] [id number] Feb, [facility] [place] [address] [id number] EARTH[place] [id number] Dec, Moderate episode of recurrent major depressive disorder F33.1 ; Sciatic leg pain M54.30 ; Chronic obstructive pulmonary disease, unspecified COPD type J44.9 and Screening for thyroid disorder Z13.29 [facility] [place] [address] [id number] [place] [address] [id number] Dec, Chronic obstructive pulmonary disease, unspecified COPD type J44.9 [facility] [place] [address] [id number] [place]ARTH, [place] [id number] Nov, Sciatic leg pain M54.30 [facility] [address] [id number], [place] [id number] Oct, [facility] [place] [address] [id number] [place] [address] [id number] Oct, Acute pain of right shoulder M25.511 [facility] [place] [address] [id number] [place] [address] [id number] Oct, Chronic obstructive pulmonary disease, unspecified COPD type J44.9 [facility] [address] [id number] [place] [address] [id number] Oct, [facility] [place] [address] [id number] [place] [address] [id number] Sep, Chronic obstructive pulmonary disease, unspecified COPD type J44.9 and Sciatic leg pain M54.30 [facility] [place] [address] [id number] EARTH, [place] [id number] Aug, Moderate episode of recurrent major depressive disorder F33.1 and Chronic obstructive pulmonary disease, unspecified COPD type J44.9 [facility] [address] [id number], [place] [id number] Aug, Moderate episode of recurrent major depressive disorder F33.1 [facility] [place] [address] [id number] [place]ARTH, [place] [id number] Jul, Other depression F32.8 and Chronic obstructive pulmonary disease, unspecified COPD type J44.9 [facility] [address] [id number] [place]ARTH[place] [id number] Jul, Moderate episode of recurrent major depressive disorder F33.1 [facility] [address] [id number], [place] [id number] Jun, [facility] [place] [address] [id number] [place]ARTH, [place] [id number] Jun, Moderate episode of recurrent major depressive disorder F33.1 [facility] [place] [address] [id number] [place] [address] [id number] Jun, Moderate episode of recurrent major depressive disorder F33.1 [facility] [place] [address] [id number] [place]ARTH, [place] [id number] Jun, [facility] [place] [address] [id number] [place] [address] [id number] Jun, Sciatic leg pain M54.30 [facility] [place] [address] [id number] [place] [address] [id number] Jun, [facility] [place] [address] [id number] [place] [address] [id number] May, Screening for thyroid disorder Z13.29 and Screening for lipid disorders Z13.220 [facility] [place] [id number] [place] [address] [id number] May, Other depression F32.8 [facility] [place] [address] [id number] EARTH, [place] [id number] Apr, Sciatic leg pain M54.30 [facility] [place] [address] [id number] [place] [address] [id number] Apr, Screening for lipid disorders Z13.220 ; Screening for thyroid disorder Z13.29 and Chronic obstructive pulmonary disease, unspecified COPD type J44.9 [facility] [place] [address] [id number] EARTH, [place] [id number] Apr, Screening for lipid disorders Z13.220 ; Screening for thyroid disorder Z13.29 and Chronic obstructive pulmonary disease, unspecified COPD type J44.9 [facility] [place] [address] [id number] E[place]TH, [place] [id number] Apr, [facility] [place] [id number] [place] [address] [id number] Apr, Chronic obstructive pulmonary disease, unspecified COPD type J44.9 [facility] [address] [id number] [place] [address] March [facility] [place] [address] [id number] [place]AR[place], [place] [id number] March, Sciatic leg pain M54.30 and Other depression F32.8 [facility] [place] [id number] [place] [address] [id number] March, [facility] [place] [address] [id number] [place] [address] [id number] Jan, Other depression F32.8 and Sciatic leg pain M54.30 [facility] [place] [address] [id number] [place] [address] [id number] Jan, Sciatic leg pain M54.30 [facility] [place] [address] [id number] [place] [address] [id number] Dec, Other depression F32.8 [facility] [place] [address] [id number] [place] [address] [id number] Dec, Chronic obstructive pulmonary disease, unspecified COPD type J44.9 [facility] [place] [address] [id number] [place] [address] [id number] Nov, [facility] [place] [address] [place] [id number] [place] [address] [id number] Oct, Other depression F32.8 and Chronic obstructive pulmonary disease, unspecified COPD type J44.9 [facility] [address] [id number] [place] [address] [id number] Aug, [facility] [id number] [place] [address] [id number] Aug, Other depression F32.8 ; Arthralgia of right temporomandibular joint M26.62 and Encounter for immunization Z23 [facility] [id number] [place] [address] [id number] Aug, Encounter for well woman exam Z01.419 [facility] [id number] [place] [address] [id number] Jul, Other depression F32.8 and Arthralgia of right temporomandibular joint M26.62 [facility] [place] [address] [id number] [place]ARTH, [place] [id number] Jun, [facility] [address] [id number] [address] Jun [facility] [place] [address] [id number] [place]AR[place], [place] [id number] Jun, [facility] [place] [id number] [place] [address] [id number] Jun, Other depression F32.8 and Urinary tract infection without hematuria, site unspecified N39.0 [facility] [place] [address] [id number] [place] [address] [id number] Apr, [facility] [place] [address] [place] [id number] [place] [address] [id number] Apr, Dysuria R30.0 [facility] [address]00565100[place] [address] March, [facility] [place] [id number] [place] [address] [id number] March, Urinary tract infection, site unspecified N39.0 [facility] [place] [id number] [place] [address] [id number] March, Urinary tract infection, site unspecified N39.0 [facility] [place] [id number] [place], [place] [id number] Feb, [facility] [place] [id number] [place] [address] [id number] Feb, Headache R51 and Ear pain H92.09 [facility] [place] [id number] [place] [address] [id number] Jan, Osteoarthritis of both knees, unspecified osteoarthritis type M17.0 and Hip bursitis, left M70.72 [facility] [place] [address] [id number] EARTH, [place] [id number] Jan, [facility] [place] [id number] [place], [place] 886684484 Dec, Unspecified arthropathy, site unspecified 716.90 and COPD (chronic obstructive pulmonary disease) 496 [facility] [place] [address] [id number] [place], [place] [id number] Dec, [facility] [place] [id number] [place], [place] [id number] Nov, [facility] [id number] [place] [id number] Oct, [facility] [address] [id number] [place], [place] [id number] Sep, [facility] [id number] [place], [place] [id number] Sep, [facility] [address] [id number] [place]AR[place], [place] [id number] Aug, [facility] [address] [id number], [place] [id number] Aug, [facility] [address] [id number] [place]ARTH, [place] [id number] Aug, Urinary tract infection N39.0 and Shoulder strain, right, initial encounter S46.911A [facility] [id number] [place], [place] [id number] Aug, Screening breast examination Z12.39 and Encounter for immunization Z23 [place] [id number] [place], [place] [id number] Aug, [facility] [place] [address] [facility] [id number], [place] [id number] Aug, [facility] [id number] [place] [address] [id number] Jul, [facility] [id number] [place]ARTH, [place] [id number] Jun, [place] [address] [place] [place] [id number] [place], [place] [id number] Jun, Allergic rhinitis, cause unspecified 477.9 and Cough 786.2 [facility] [address] [id number] [place]ARTH, [place] [id number] May, [facility] [address] [id number] [place], [place] [id number] May, [facility] [id number] [place], [place] [id number] May, Visit for suture removal V58.32 [facility] [id number] [place]TH, [place] [id number] May, Dog bite 879.8 [facility] [id number] [place]ARTH, [place] [id number] Apr, Rib pain on right side 786.50 [facility] [place] [id number] [place] [address] [id number] Apr, [facility] [place] [id number] [place] [address] [id number] Apr, Allergic rhinitis, cause unspecified 477.9 and Cough 786.2 [facility] [place] [id number] [place] [address] [id number] March, [facility] [id number] [place] [address] [id number] March, [facility] [id number] [place] [address] [id number] March, [facility] [id number] [place] [address] [id number] March, [facility] [id number] [place] [address] [id number] March, Cough 786.2 and Shortness of breath 786.05 [facility] [id number] [place] [address] [id number] March, [facility] [id number] [place] [address] [id number] March, Cough 786.2 ; COPD (chronic obstructive pulmonary disease) 496 and Allergic rhinitis, cause unspecified 477.9 [facility] [id number] [place] [address] [id number] Feb, Allergic rhinitis, cause unspecified 477.9 ; Cough 786.2 and COPD ( chronic obstructive pulmonary disease) 496 [facility] [place] [id number] [place] [address] Feb, [facility] [place] [id number] [place] [address] 520[address]- 1158 Feb, [facility] [place] [id number] [place] [address] 61444- 1590 Jan, [facility] [place] [id number] [place] [address] 35084- 9581 Jan, [facility] [place] [facility] [address] [id number] [address]- [address] Jan, [facility] [address] [id number] [place] [id number] Jan, [facility] [place] [facility] [address] [facility] [id number] [address]- 25[address] Jan, [facility] [address] [id number] [place] [id number] Dec, [facility] [place] [facility] [address] [id number] [place] [address]- [address] Dec, [facility] [address] [id number] [place] [id number] Dec, [facility] [place] [facility] [address] [id number] [address]- 2546 Dec, [facility] [address] [id number] [place] [id number] Dec, [facility] [place] [facility] [address] [facility] [id number] [address]- 2546 Dec, [facility] [place] [facility] [address] [id number] [place] [address]- [address] Dec, [facility] [address] [id number] EARTH, [place] [id number] Nov, [facility] [place] [facility] [address] [id number] [address]- 2546 Nov, [facility] [place] [facility] [address] [facility] [id number] [address]- [address] Nov, [facility] [address] [id number] [place] [id number] Nov, [facility] [place] [facility] [address] [facility] [id number] [place] [address]- 2546 Nov, [facility] [address] [id number] [place] [id number] Oct, [facility] [place] [facility] [address] [facility] [id number] [place] [address]- 6[address] Oct, [facility] [address] [id number] [place] [id number] Sep, [facility] [place] [facility] [address] [facility] [id number] [address]- [address] Sep, [facility] [address] [id number] [place] [id number] Sep, [facility] [place] [facility] [address] [facility] [id number] [address]- 98[address] Sep, [facility] [address] [id number] [place] [id number] Aug, [facility] [place] [facility] [address] [facility] [id number] [address]- 10[address] Aug, [facility] [address] [id number] [place] [id number] Aug, [facility] [place] [facility] [address] [facility] [id number] [place] [address]- 16[address] Aug, [facility] [place] [facility] [address] [facility] [id number] [place] [address]- 8[address] Jul, [facility] [address] [id number] [place], [place] [id number] Jul, [facility] [address] [id number] [place], [place] [id number] Jul, [facility] [address] [id number] [place], [place] [id number] Jul, [facility] [place] [facility] [address] [facility] [id number] [place] [address]- 64[address] Jul, [facility] [place] [facility] [address] [facility] [id number] [address]- 6367 Jul, [facility] [place] [facility] [address] [facility] [id number] [address]- 3123 Jul, [facility] [place] [facility] [address] [facility] [id number] [place] [address]- 38[address] Jul, [facility] [address] [id number] [place]ARTH, [place] [id number] Jun, [facility] [place] [facility] [address] [facility] [id number] [address]- 4293 Jun, [facility] [place] [facility] [address] [facility] [id number] [address]- 2286 Jun, [facility] [address] [id number] [place]AR[place], [place] [id number] Jun, [facility] [place] [facility] [address] [facility] [id number] [place] [address]- 4926 Jun, [facility] [address] [id number] EARTH, [place] [id number] Jun, [facility] [place] [facility] [address] [facility] [id number] [address]- 06[address] Jun, [facility] [address] [id number] [place]ARTH, [place] [id number] Apr, [facility] [place] [facility] [address] [id number] [address]- 1036 Apr, [facility] [address] [id number] [place] [id number] Apr, [facility] [place] [facility] [address] [id number] [address]- 7981 Apr, [facility] [address] [id number] [place], [place] 148553755 Apr, [facility] [place] [facility] [address] [facility] [id number] [address]- 2104 Apr, [facility] [place] [facility] [address] [facility] [id number] [place] [address]- 0600 March, [facility] [place] [facility] [address] [facility] [id number] [address]- 9646 March, [facility] [address] [id number] [place], [place] [id number] March, [facility] [address] [id number] [place], [place] [id number] Feb, [facility] [place] [facility] [address] [facility] [id number] [place] [address]- 3226 Feb, [facility] [address] [id number] [place] [id number] Jan, [facility] [place] [facility] [address] [facility] [id number] [place] [address]- 5816 Jan, [facility] [address] [id number] [place] [id number] Dec, [facility] [place] [facility] [address] [id number] [place] [address]- 4766 Dec, [facility] [address] [id number] [place] [id number] Dec, [facility] [place] [facility] [address] [facility] [id number] [address]- 5111 Dec, [facility] [place] [facility] [address] [id number] [address]- 2262 Dec, [facility] [place] [facility] [address] [facility] [id number] [address]- 2647 Dec, [facility] [address] [id number] [place] [id number] Nov, [facility] [place] [facility] [address] [facility] [id number] [place] [address]- 2414 Nov, [facility] [address] [id number] [place]AR[place], [place] [id number] Nov, [facility] [place] [facility] [address] [facility] [id number] [address] 2546 Nov, [facility] [address] [id number] [place]ARTH, [place] [id number] Nov, [facility] [place] [facility] [address] [facility] [id number] [address] Nov, [facility] [address] [facility] [facility] [id number] [place] [id number] Oct, [facility] [address] [facility] [id number] [place] [address] Oct, [facility] [address] [facility] [id number] [place] [address] Oct, [facility] [address] [facility] [facility] [id number] [place] [id number] Oct, [facility] [address] [facility] [id number] [place] [address] Sep, [facility] [address] [facility] [id number] [place] [address] Sep, [facility] [address] [id number] [place] [id number] Sep, [facility] [address] [facility] [id number] [place] [address] Sep, [facility] [address] [id number] [place] [id number] Aug, [facility] [id number] [address] Aug, [facility] [address] [id number] [place] [id number] Jul, [facility] [address] [id number] [place] [id number] Jul, [facility] [address] [id number] [place] [id number] Jun, [facility] [address] [id number] [place] [id number] May, [facility] [address] [id number] [place] [id number] May, [facility] [address] [facility] [id number] [place] [address] May, [facility] [address] [id number] [place] [id number] Apr, [facility] [address] [id number] [place] [id number] Apr, [facility] [address] [id number] [place] [id number] March, [facility] [address] [id number] [place] [id number] Feb, [facility] [address] [id number] [place] [id number] Feb, [facility] [address] [id number] [place] [id number] Jan, [facility] [address] [id number] [place] [id number] Jan, [facility] [address] [id number] [place] [id number] Dec, [facility] [address] [id number] [place] [id number] Nov, [facility] [address] [facility] [id number] [place] [address] Oct, [facility] [id number] [address] Oct, [facility] [address] [facility] [facility] [id number] [place] [id number] Oct, [facility] [id number] [address] Oct, [facility] [id number] [address] Oct, [facility] [address] [facility] [facility] [id number] [place] [id number] Oct, [facility] [address] [facility] [facility] [id number] [place] [id number] Sep, [facility] [address] [facility] [id number] [place] [address] Sep, [facility] [address] [facility] [facility] [id number] [place] [id number] Sep, [facility] [address] [facility] [id number] [address] Sep, [facility] [address] [id number] [id number] Aug, [facility] [id number] [address] Aug, [facility] [address] [id number] [place] [id number] Aug, [facility] [address] [id number] [place] [id number] Jun, [facility] [address] [id number] [place] [id number] Jun, [facility] [place] [id number] [place] [phone] May, [facility] [address] [id number] [place] [id number] Apr, [facility] [address] [id number] [place] [id number] March, [facility] [address] [id number] [place] [id number] Feb, [facility] [id number] [place] [id number] Jan, [facility] [id number] [id number] Nov, [facility] [place] [id number] [place] [phone] Sep, [facility] [place] [id number] [place] [phone] Sep, [facility] [place] [id number] [place] [phone] Aug, [facility] [place] [id number] [address] Apr, [facility] [place] [id number] [place] [phone] March, IMMUNIZATIONS No Known Immunizations SOCIAL HISTORY Never Assessed REASON FOR VISIT 3 month f/u Depression Kee CAN PLAN OF CARE Activity Details Follow Up 6 Months Reason:depression copd VITAL SIGNS Height 62 in 2017-12-18 Weight 166 lbs 2017-12-18 Temperature 98 degrees Fahrenheit 2017-12-18 Heart Rate 78 bpm 2017-12-18 Respiratory Rate 16 2017-12-18 BMI 30.36 kg/m2 2017-12-18 Blood pressure systolic 118 mmHg 2017-12-18 Blood pressure diastolic 68 mmHg 2017-12-18 MEDICATIONS Medication Instructions Dosage Frequency Start Date End Date Duration Status Levothyroxine Sodium 25 MCG Orally Once a day half a tablet on an empty stomach in the morning 24h May, 0 days Active Advair Diskus 250 mcg-50 mcg Inhalation 2 times a day 1 puffs 12h Active Gabapentin 300 MG Orally 3 times a day 1 capsule 8h 0 days Active Diclofenac Sodium 50 mg Orally Three times a day 1 tablet with food or milk 8h Jan, 0 days Active ProAir HFA 108 (90 Base) MCG/ACT Inhalation every 4 hrs as needed 2 puffs Active Singulair 10 mg Orally Once a day 1 tablet in the evening 24h Apr, Active Flonase 50 MCG/ACT Nasally 2 times a day 2 spray in each nostril 12h Active Seroquel 25 MG Orally at bedtime as needed 1 tablet Active EPINEPHrine 0.3 MG/0.3ML Injection PRN as directed Aug, Not-Taking Spiriva HandiHaler 18 MCG Inhalation Once a day 1 capsule 24h Active Atorvastatin Calcium 20 mg Orally Once a day at bedtime 1 tablet May, 0 days Active Fluoxetine 40 mg Orally Once a day 2 capsule in the morning 24h Active Xolair 150 MG Active Omeprazole 40 mg Orally 2 times a day 1 capsule 12h 0 days Active RESULTS Name Result Date Reference Range TSH 2017-12-18 TSH 4.04 0.40-4.50 PROCEDURES Procedure Date Ordered Result Body Site ASSAY THYROID STIM HORMONE Dec 18, 2017 VENIPUNCT, ROUTINE* Dec 18, 2017 INSTRUCTIONS MEDICATIONS ADMINISTERED No Known Medications MEDICAL [...]
--- OUTSIDE RECORDS SUMMARY | 2018-11-11 16:51 | XMS REPORT ---
Author Author RAFAT LONGORIA [facility] Address Unknown Phone Unavailable Care Team Providers Care Gill Box Fixer Name Role Phone RAFAT LONGORIA Unavailable Unavailable PROBLEMS Type Condition ICD9-CM Code VTF82-FO Code Onset Dates Condition Status SNOMED Code Problem Hip bursitis, left M70.72 Active 65746304 Problem Moderate episode of recurrent major depressive disorder F33.1 Active 341434688 Problem Sciatic leg pain M54.30 Active 18592297 Problem Other depression F32.8 Active 44104753 Problem Osteoarthritis of both knees, unspecified osteoarthritis type M17.0 Active 217914784 Problem Chronic obstructive pulmonary disease, unspecified COPD type J44.9 Active 44299245 Problem Arthralgia of right temporomandibular joint M26.62 Active 93851200 ALLERGIES No Information ENCOUNTERS Encounter Location Date Diagnosis [facility] [id number] [place] [address] [id number] Feb, Sciatic leg pain M54.30 [facility] [id number] [place] [address] [id number] Feb, [facility] [place] [id number] [place] [address] [id number] Dec, Moderate episode of recurrent major depressive disorder F33.1 ; Sciatic leg pain M54.30 ; Chronic obstructive pulmonary disease, unspecified COPD type J44.9 and Screening for thyroid disorder Z13.29 [address] [address]2964 Dec, Chronic obstructive pulmonary disease, unspecified COPD type J44.9 [place] [id number] [place] [address] [id number] Nov, Sciatic leg pain M54.30 [facility] [address] [id number], [place] [id number] Oct, [place] [id number] [place] [address] [id number] Oct, Acute pain of right shoulder M25.511 [facility] [place] [address] [id number], [place] [id number] Oct, Chronic obstructive pulmonary disease, unspecified COPD type J44.9 [facility] [place] [address] [id number], [place] [id number] Oct, [facility] [place] [address] [id number], [place] [id number] Sep, Chronic obstructive pulmonary disease, unspecified COPD type J44.9 and Sciatic leg pain M54.30 [facility] [place] [address] [id number], [place] [id number] Aug, Moderate episode of recurrent major depressive disorder F33.1 and Chronic obstructive pulmonary disease, unspecified COPD type J44.[address] [facility] [address] [id number], [place] [id number] Aug, Moderate episode of recurrent major depressive disorder F33.1 [facility] [place] [address] [id number], [place] [id number] Jul, Other depression F32.8 and Chronic obstructive pulmonary disease, unspecified COPD type J44.9 [facility] [place] [address] [id number], [place] [id number] Jul, Moderate episode of recurrent major depressive disorder F33.1 [facility] [address] [id number][place] [id number] Jun, [facility] [place] [address] [id number], [place] [id number] Jun, Moderate episode of recurrent major depressive disorder F33.1 [facility] [place] [address] [id number], [place] [id number] Jun, Moderate episode of recurrent major depressive disorder F33.1 [facility] [place] [address] [id number], [place] 312266557 Jun, [facility] [place] [address] [id number], [place] [id number] Jun, Sciatic leg pain M54.30 [facility] [place] [address] [id number], [place] 201868424 Jun, [facility] [place] [address] [id number], [place] 355185034 May, Screening for thyroid disorder Z13.29 and Screening for lipid disorders Z13.220 [facility] [place] [address] [id number], [place] 070248412 May, Other depression F32.8 [facility] [place] [address] [id number], [place] 194597600 Apr, Sciatic leg pain M54.30 [facility] [place] [id number] [place] [address] [id number] Apr, Screening for lipid disorders Z13.220 ; Screening for thyroid disorder Z13.29 and Chronic obstructive pulmonary disease, unspecified COPD type J44.9 [facility] [place] [address] [id number], [place] 674200748 Apr, Screening for lipid disorders Z13.220 ; Screening for thyroid disorder Z13.29 and Chronic obstructive pulmonary disease, unspecified COPD type J44.9 [facility] [place] [address] [id number], [place] [id number] Apr, [facility] [place] [address] [id number], [place] [id number] Apr, Chronic obstructive pulmonary disease, unspecified COPD type J44.9 [facility] [address] [id number] [place] [address] March [facility] [place] [address] [id number], [place] 760774876 March, Sciatic leg pain M54.30 and Other depression F32.8 [facility] [place] [address] [id number], [place] [id number] March, [facility] [place] [address] [id number], [place] [id number] Jan, Other depression F32.8 and Sciatic leg pain M54.30 [facility] [place] [address] [id number], [place] 748562912 Jan, Sciatic leg pain M54.30 [facility] [place] [address] [id number], [place] 109264759 Dec, Other depression F32.8 [facility] [place] [id number], [place] [id number] Dec, Chronic obstructive pulmonary disease, unspecified COPD type J44.9 [facility] [place] [id number], [place] [id number] Nov, [facility] [place] [id number] [place] [address] [id number] Oct, Other depression F32.8 and Chronic obstructive pulmonary disease, unspecified COPD type J44.9 [facility] [place] [id number], [place] 793169910 Aug, [facility] [place] [id number] [place] [address] [id number] Aug, Other depression F32.8 ; Arthralgia of right temporomandibular joint M26.62 and Encounter for immunization Z23 [facility] [place] [id number] [place] [address] [id number] Aug, Encounter for well woman exam Z01.419 [facility] [place] [id number] [place] [address] [id number] Jul, Other depression F32.8 and Arthralgia of right temporomandibular joint M26.62 [facility] [place] [id number], [place] [id number] Jun, [facility] [place] [address] [id number] [place] [address] Jun [facility] [place] [id number], [place] 776750090 Jun, [facility] [place] [id number], [place] 288468862 Jun, Other depression F32.8 and Urinary tract infection without hematuria, site unspecified N39.0 [facility] [place] [id number], [place] [id number] Apr, [facility] [place] [id number], [place] [id number] Apr, Dysuria R30.0 [facility] [address]00565100[place] [address] March, [facility] [place] [address] [id number], [place] [id number] March, Urinary tract infection, site unspecified N39.0 [facility] [place] [address] [id number], [place] [id number] March, Urinary tract infection, site unspecified N39.0 [facility] [place] [address] [id number], [place] 755943275 Feb, [facility] [place] [id number] [place] [address] [id number] Feb, Headache R51 and Ear pain H92.09 [facility] [place] [id number] [place] [address] [id number] Jan, Osteoarthritis of both knees, unspecified osteoarthritis type M17.0 and Hip bursitis, left M70.72 [facility] [place] [address] [id number] [place] [address] [id number] Jan, [facility] [place] [address] [id number] [place] [address] [id number] Dec, Unspecified arthropathy, site unspecified 716.90 and COPD (chronic obstructive pulmonary disease) 496 [facility] [place] [id number] [place] [address] [id number] Dec, [facility] [place] [address] [id number], [place] 024622954 Nov, [facility] [place] [address] [id number], [place] [id number] Oct, [facility] [place] [address] [id number], [place] [id number] Sep, [facility] [place] [address] [id number], [place] 901333546 Sep, [facility] [place] [address] [id number], [place] [id number] Aug, [facility] [place] [address] [facility] [id number], [place] [id number] Aug, [facility] [place] [address] [id number], [place] [id number] Aug, Urinary tract infection N39.0 and Shoulder strain, right, initial encounter S46.911A [facility] [id number], [place] [id number] Aug, Screening breast examination Z12.39 and Encounter for immunization Z23 [facility] [id number], [place] [id number] Aug, [facility] [id number] [place] [address] [id number] Aug, [facility] [id number] [place] [address] [id number] Jul, [place] [id number] [place] [address] [id number] Jun, [facility] [id number] [place] [address] [id number] Jun, Allergic rhinitis, cause unspecified 477.9 and Cough 786.2 [facility] [id number] [place] [address] [id number] May, [facility] [id number] [place] [address] [id number] May, [facility] [id number] [place] [address] [id number] May, Visit for suture removal V58.32 [facility] [id number] [place] [address] [id number] May, Dog bite 879.8 [place] [id number] [place] [address] [id number] Apr, Rib pain on right side 786.50 [facility] [id number] [place] [address] [id number] Apr, [place] [id number] [place] [address] [id number] Apr, Allergic rhinitis, cause unspecified 477.9 and Cough 786.2 [facility] [id number], [place] [id number] March, [place] [id number] [place] [address] [id number] March, [facility] [address] [id number], [place] [id number] March, [facility] [place] [address] [id number], [place] [id number] March, [facility] [place] [address] [id number], [place] [id number] March, Cough 786.2 and Shortness of breath 786.05 [facility] [place] [id number], [place] [id number] March, [facility] [place] [id number], [place] 625685049 March, Cough 786.2 ; COPD (chronic obstructive pulmonary disease) 496 and Allergic rhinitis, cause unspecified 477.9 [facility] [place] [id number], [place] [id number] Feb, Allergic rhinitis, cause unspecified 477.9 ; Cough 786.2 and COPD ( chronic obstructive pulmonary disease) 496 [facility] [id number] [place] [address]66- 2546 Feb, [facility] [id number] [place] [address] 74280- 2546 Feb, [facility] [id number] [place] [address] 06185- 2546 Jan, [facility] [id number] [place] [address] 68605- 2546 Jan, [facility] [id number] [place] [address] 28592- 2546 Jan, [facility] [place] [address] [id number], [place] [id number] Jan, [facility] [id number] [place] [address] 26076- 2546 Jan, [facility] [place] [id number], [place] [id number] Dec, [facility] [id number] [place] [address] 63532- 2546 Dec, [facility] [place] [address] [id number] [place] [id number] Dec, [facility] [place] [facility] [address] [facility] [id number] [place] [address]- 65[address] Dec, [facility] [place] [address] [id number] [place] [id number] Dec, [facility] [place] [facility] [address] [facility] [id number] [place] [address]- 9726 Dec, [facility] [place] [facility] [address] [facility] [id number] [place] [address]- 4317 Dec, [facility] [place] [address] [facility] [id number] [place] [id number] Nov, [facility] [place] [facility] [address] [facility] [id number] [place] [address]- 2593 Nov, [facility] [place] [facility] [address] [place] [id number] [address]- 8[address] Nov, [facility] [place] [address] [facility] [id number], [place] [phone] Nov, [facility] [place] [facility] [address] [facility] [id number], [place] [address]- 384[address] Nov, [facility] [place] [address] [facility] [id number], [place] [id number] Oct, [facility] [place] [facility] [address] [facility] [id number][place] [address]- 28[address] Oct, [facility] [place] [address] [facility] [id number], [place] [id number] Sep, [facility] [place] [facility] [address] [facility] [id number][place] [address]- 45[address] Sep, [facility] [place] [address] [id number], [place] [id number] Sep, [facility] [place] [facility] [address] [facility] [id number], [place] [address]- 8[address] Sep, [facility] [place] [address] [facility] [id number], [place] [id number] Aug, [facility] [place] [facility] [address] [id number] [place] [address]- 1521 Aug, [facility] [address] [id number] [place] [id number] Aug, [facility] [place] [facility] [address] [id number] [place] [address]- 8876 Aug, [facility] [place] [facility] [address] [id number], [place] 312995- 9755 Jul, [facility] [place] [address] [id number] [place] [id number] Jul, [facility] [address] [id number] [place] [id number] Jul, [facility] [place] [address] [id number] [place] [id number] Jul, [facility] [place] [facility] [address] [facility] [id number], [place] [address]- 3356 Jul, [facility] [place] [facility] [address] [facility] [id number], [place] [address]- 7745 Jul, [facility] [place] [facility] [address] [facility] [id number], [place] [address]- 0759 Jul, [facility] [place] [facility] [address] [facility] [id number][place] [address]- 3012 Jul, [facility] [place] [address] [facility] [id number], [place] [id number] Jun, [facility] [place] [facility] [address] [id number], [place] [address]- 6848 Jun, [facility] [place] [facility] [address] [id number][place] [address]- 3592 Jun, [facility] [address] [id number], [place] [id number] Jun, [facility] [place] [facility] [address] [id number], [place] [address]- 2147 Jun, [facility] [address] [id number] [place] [id number] Jun, [facility] [place] [facility] [address] [id number], [place] [address]- 5566 Jun, [facility] [place] [address] [id number] [place] [id number] Apr, [facility] [place] [facility] [address] [facility] [id number], [place] [address]- 5966 Apr, [facility] [address] [id number] [place] [id number] Apr, [facility] [place] [facility] [address] [facility] [id number], [place] [address]- 2428 Apr, [facility] [place] [address] [facility] [id number] [place] 785349593 Apr, [facility] [place] [facility] [address] [id number], [place] [address]- 8406 Apr, [facility] [place] [facility] [address] [facility] [id number], [place] [address]- 2575 March, [facility] [place] [facility] [address] [facility] [id number], [place] [address]- 7528 March, [facility] [place] [address] [facility] [id number], [place] [id number] March, [facility] [place] [address] [facility] [id number], [place] [id number] Feb, [facility] [place] [facility] [address] [facility] [id number], [place] [address]- 2732 Feb, [facility] [address] [id number], [place] [id number] Jan, [facility] [place] [facility] [address] [facility] [id number], [place] [address]- 7844 Jan, [facility] [place] [address] [facility] [id number] [place] 102348767 Dec, [facility] [place] [facility] [address] [facility] [id number], [place] [address]- 0171 Dec, [facility] [place] [address] [facility] [id number], [place] 545495665 Dec, [facility] [address] [facility] [id number], [place] [address] 2546 Dec, [facility] [place] [facility] [address] [facility] [id number], [place] [address]- 2546 Dec, [facility] [address] [facility] [id number], [place] [address]- 2546 Dec, [facility] [place] [address] [facility] [id number], [place] 311318591 Nov, [facility] [address] [facility] [id number], [place] [address]- 8366 Nov, [facility] [place] [address] [facility] [id number], [place] 381766974 Nov, [facility] [address]00565100[place], [place] [address]- 4646 Nov, [facility] [address] [facility] [id number], [place] 455472793 Nov, [facility] [address] [id number], [place] [address]- 7406 Nov, [facility] [address] [facility] [id number], [place] [id number] Oct, [facility] [place] [facility] [address] [facility] [id number][place] [address]- 3316 Oct, [facility] [place] [facility] [address] [facility] [id number], [place] [address]- 2546 Oct, [facility] [address] [facility] [id number], [place] 095175538 Oct, [facility] [place] [facility] [address] [facility] [id number], [place] [address]- 4346 Sep, [facility] [place] [facility] [address] [facility] [id number], [place] [address]- 2586 Sep, [facility] [address] [facility] [id number], [place] [id number] Sep, [facility] [address] [facility] [id number], [place] [address]- 2546 Sep, [facility] [address] [id number] [place] [id number] Aug, [facility] [address] [facility] [id number][place] [address]- 2546 Aug, [facility] [address] [id number] [place] 654457899 Jul, [facility] [address] [id number] [place] [id number] Jul, [facility] [address] [id number] [place] [id number] Jun, [facility] [address] [id number] [place] 313860191 May, [facility] [address] [id number] [place] 057609789 May, [facility] [address] [facility] [id number][place] [address]- 2546 May, [facility] [address] [id number] [place] [id number] Apr, [facility] [address] [id number] [place] [id number] Apr, [facility] [address] [id number], [place] 357370078 March, [facility] [address] [id number] [place] 823443756 Feb, [facility] [address] [id number] [place] [id number] Feb, [facility] [address] [id number] [place] [id number] Jan, [facility] [address] [id number] [place] [id number] Jan, [facility] [address] [id number] [place] [id number] Dec, [facility] [address] [id number][place] [id number] Nov, [facility] [address] [facility] [id number][place] [address] Oct, [facility] [address] [facility] [id number][place] [address] Oct, [facility] [address] [id number][place] [id number] Oct, [facility] [address] [facility] [id number], [place] [address] Oct, [facility] [address] [facility] [id number], [place] [address] Oct, [facility] [address] [id number][place] [id number] Oct, [facility] [address] [id number][place] [id number] Sep, [facility] [address] [facility] [id number][place] [address] Sep, [facility] [address] [id number][place] [id number] Sep, [facility] [address] [facility] [id number], [place] [address] Sep, [facility] [address] [id number][place] [id number] Aug, [facility] [address] [facility] [id number], [place] [address] Aug, [facility] [address] [id number], [place] [id number] Aug, [facility] [address] [id number][place] [id number] Jun, [facility] [address] [id number][place] [id number] Jun, [facility] [address] [facility] [id number], [place] [address] May, [facility] [address] [id number][place] [id number] Apr, [facility] [address] [facility] [id number], [place] [id number] March, [facility] [address] [id number][place] [id number] Feb, [facility] [address] [id number][place] [id number] Jan, [facility] [address] [id number][place] [id number] Nov, [facility] [id number] [address] Sep, [facility] [id number] [place] [address] Sep, [facility] [id number], [place] [address] Aug, [facility] [id number] [place] [address] Apr, [facility] [id number], [place] [address] March, IMMUNIZATIONS No Known Immunizations SOCIAL HISTORY Never Assessed REASON FOR VISIT f/u PLAN OF CARE Activity Details Follow Up Next available Reason: VITAL SIGNS MEDICATIONS Medication Instructions Dosage Frequency Start Date End Date Duration Status Fluoxetine 40 mg Orally Once a day 1 capsule in the morning 24h Active Fluoxetine 20 mg Orally Once a day total 60 mg/d 1 capsule in the morning Active Seroquel 25 MG Orally at bedtime as needed .5-1 tablet Active RESULTS No Results PROCEDURES Procedure Date Ordered Result Body Site Psychotherapy, patient &/family, 30 minutes, established patient Jul 19, 2017 INSTRUCTIONS MEDICATIONS ADMINISTERED No Known Medications [...] hysterectomy, total with bilateral salpingo-oophorectomy (BSO ) 2002 Hospitalization History surgeries Hospitalization History ER for left hip pain 12/2016
--- OUTSIDE RECORDS SUMMARY | 2018-11-11 16:51 | XMS REPORT ---
Author Author TARIQ TATE Organization [facility] Address [address] [place] [address] Care Team Providers Care Chrome Plater Name Role Phone TARIQ TATE Unavailable PROBLEMS Type Condition ICD9-CM Code [id number] Code Onset Dates Condition Status SNOMED Code Problem Hip bursitis, left M70.72 Active 97747690 Problem Moderate episode of recurrent major depressive disorder F33.1 Active 366119036 Problem Sciatic leg pain M54.30 Active 38352147 Problem Other depression F32.8 Active 09999480 Problem Osteoarthritis of both knees, unspecified osteoarthritis type M17.0 Active 359123555 Problem Chronic obstructive pulmonary disease, unspecified COPD type J44.9 Active 80812808 Problem Arthralgia of right temporomandibular joint M26.62 Active 45193938 ALLERGIES No Information ENCOUNTERS Encounter Location Date Diagnosis [id number] [place] [address] [id number] March, [address] [id number] [place] [address] [id number] Feb, Sciatic leg pain M54.[address] [id number] [id number] Feb, [address] [place] [address] [id number] Dec, Moderate episode of recurrent major depressive disorder F33.1 ; Sciatic leg pain M54.30 ; Chronic obstructive pulmonary disease, unspecified COPD type J44.9 and Screening for thyroid disorder Z13.[address] [place] [address] [id number] 05 Dec, 2017 Chronic obstructive pulmonary disease, unspecified COPD type J44.[id number] [place] [address] [id number] Nov, Sciatic leg pain M54.30 [facility] [address] [id number] [place] [id number] Oct, [facility] [address] [id number] [place] [id number] Oct, Acute pain of right shoulder M25.511 [facility] [address] [id number] [place] [id number] Oct, Chronic obstructive pulmonary disease, unspecified COPD type J44.9 [facility] [address] [id number] [place], [place] [id number] Oct, [facility] [address] [id number] [place] [id number] Sep, Chronic obstructive pulmonary disease, unspecified COPD type J44.9 and Sciatic leg pain M54.30 [facility] [address] [id number] [place] [id number] Aug, Moderate episode of recurrent major depressive disorder F33.1 and Chronic obstructive pulmonary disease, unspecified COPD type J44.9 [facility] [address] [id number][place] [id number] Aug, Moderate episode of recurrent major depressive disorder F33.1 [facility] [address] [id number] [place] [id number] Jul, Other depression F32.8 and Chronic obstructive pulmonary disease, unspecified COPD type J44.9 [facility] [place] [address] [id number] [place] 955891117 Jul, Moderate episode of recurrent major depressive disorder F33.1 [facility] [address] [id number], [place] [id number] Jun, [facility] [address] [id number] [place], [place] 618108875 Jun, Moderate episode of recurrent major depressive disorder F33.1 [facility] [address] [id number] [place], [place] [id number] Jun, Moderate episode of recurrent major depressive disorder F33.1 [facility] [address] [id number] [place], [place] [id number] Jun, [facility] [address] [id number] [place], [place] 139400973 Jun, Sciatic leg pain M54.30 [facility] [place] [id number] [place], [place] [id number] Jun, [facility] [place] [id number] [place] [address] [id number] May, Screening for thyroid disorder Z13.29 and Screening for lipid disorders Z13.220 [facility] [place] [id number] [place] [address] [id number] May, Other depression F32.8 [facility] [place] [id number] [place], [place] 907430687 Apr, Sciatic leg pain M54.30 [facility] [place] [id number] [place] [address] [id number] Apr, Screening for lipid disorders Z13.220 ; Screening for thyroid disorder Z13.29 and Chronic obstructive pulmonary disease, unspecified COPD type J44.9 [facility] [place] [id number] [place] [address] [id number] Apr, Screening for lipid disorders Z13.220 ; Screening for thyroid disorder Z13.29 and Chronic obstructive pulmonary disease, unspecified COPD type J44.9 [facility] [id number] [place], [place] [id number] Apr, [address]100[place], [place] 739411277 Apr, Chronic obstructive pulmonary disease, unspecified COPD type J44.9 [facility] [address] [id number] [place] [address] March [facility] [place] [address] [facility] [id number] [place] [id number] March, Sciatic leg pain M54.30 and Other depression F32.8 [facility] [place] [id number] [place], [place] [id number] March, [facility] [place] [address] [id number] [place] 258548187 Jan, Other depression F32.8 and Sciatic leg pain M54.30 [facility] [place] [id number] [place] [address] [id number] Jan, Sciatic leg pain M54.30 [facility] [place] [id number] [place] [address] [id number] Dec, Other depression F32.8 [facility] [place] [id number] [place] [address] [id number] 07 Dec, 2016 Chronic obstructive pulmonary disease, unspecified COPD type J44.9 [facility] [place] [id number] [place] [address] [id number] Nov, [facility] [place] [id number] [place] [address] [id number] Oct, Other depression F32.8 and Chronic obstructive pulmonary disease, unspecified COPD type J44.9 [facility] [place] [id number] [place] [address] [id number] Aug, [facility] [id number] [place] [address] [id number] Aug, Other depression F32.8 ; Arthralgia of right temporomandibular joint M26.62 and Encounter for immunization Z23 [facility] [id number] [place] [address] [id number] Aug, Encounter for well woman exam Z01.419 [place] [id number] [place] [address] [id number] Jul, Other depression F32.8 and Arthralgia of right temporomandibular joint M26.62 [facility] [id number] [place] [id number] Jun, [facility] [address] [id number] [place] [address] Jun [facility] [id number] [place] [address] [id number] Jun, [place] [id number] [place] [address] [id number] Jun, Other depression F32.8 and Urinary tract infection without hematuria, site unspecified N39.0 [facility] [id number] [place] [address] [id number] Apr, [facility] [address] [id number] [place] [id number] Apr, Dysuria R30.0 [facility] [address] [place] [address] March, [facility] [id number] [place] [id number] March, Urinary tract infection, site unspecified N39.0 [facility] [place] [id number] [place] 814724316 March, Urinary tract infection, site unspecified N39.0 [facility] [place] [id number] [place] [id number] Feb, [facility] [place] [id number] [place] [address] [id number] Feb, Headache R51 and Ear pain H92.09 [facility] [place] [id number] [place], [place] [id number] Jan, Osteoarthritis of both knees, unspecified osteoarthritis type M17.0 and Hip bursitis, left M70.72 [facility] [place] [id number] [place] [id number] Jan, [facility] [place] [id number] [place] [address] [id number] Dec, Unspecified arthropathy, site unspecified 716.90 and COPD (chronic obstructive pulmonary disease) 496 [facility] [place] [address] [facility] [id number] [place], [place] [id number] Dec, [facility] [id number] [place], [place] [id number] Nov, [facility] [address] [facility] [id number] [place], [place] [id number] Oct, [facility] [id number] [place], [place] [id number] Sep, [facility] [id number] [place], [place] 618193082 Sep, [facility] [place] [address] [facility] [id number] [place], [place] [id number] Aug, [facility] [place] [address] [facility] [id number] [place] [id number] Aug, [facility] [address] [facility] [id number] [place] 178194470 Aug, Urinary tract infection N39.0 and Shoulder strain, right, initial encounter S46.911A [facility] [address] [facility] [id number] [place], [place] 988780841 Aug, Screening breast examination Z12.39 and Encounter for immunization Z23 [facility] [address] [facility] [id number] [place], [place] 532782180 Aug, [facility]AN GRADY 604 [facility] [id number][place] [id number] Aug, [facility] [id number] [place] 064303859 Jul, [facility] [id number] [place], [place] 130664866 Jun, [facility] [id number] [place], [place] 866654822 Jun, Allergic rhinitis, cause unspecified 477.9 and Cough 786.2 [facility] [address] [facility] [id number] [place], [place] [id number] May, [facility] [id number] [place], [place] 709419725 May, [facility] [address] [id number] [place] 034471617 May, Visit for suture removal V58.32 [facility] [address] [facility] [id number] [place], [place] [id number] May, Dog bite 879.8 [facility] [address] [facility] [id number] [place], [place] [id number] Apr, Rib pain on right side 786.50 [facility] [id number] [place], [place] 759744559 Apr, [facility] [address] [facility] [id number] [place], [place] [id number] Apr, Allergic rhinitis, cause unspecified 477.9 and Cough 786.2 [facility] [address] [id number], [place] 538715624 March, [facility] [place] [address] [id number] [place], [place] 513862235 March, [facility] [address] [id number] [place], [place] [id number] March, [facility] [id number] [place], [place] [id number] March, [facility] [id number] [place], [place] 525338899 March, Cough 786.2 and Shortness of breath 786.05 [facility] [place] [id number] [place], [place] [id number] March, [facility] [id number] [place] [address] [id number] March, Cough 786.2 ; COPD (chronic obstructive pulmonary disease) 496 and Allergic rhinitis, cause unspecified 477.9 [facility] [place] [id number] [place], [place] [id number] Feb, Allergic rhinitis, cause unspecified 477.9 ; Cough 786.2 and COPD ( chronic obstructive pulmonary disease) 496 [facility] [id number] [place] [address] Feb, [facility] [id number] [place] [address] 61509- 1473 Feb, [facility] [address] [place] [address] 84994- 1437 Jan, [facility] [id number] [place] [address] 84661- 7772 Jan, [facility] [id number] [place] [address] 49[address]- 2[address] Jan, [facility] [place] [id number] [place] [id number] Jan, [facility] [address] [id number], [place] [address] Jan, [facility] [place] [address] [id number] [id number] Dec, 2014 [facility] [place] [facility] [address] [facility] [id number], [place] [address]- [address] Dec, 2014 [facility] [address] [facility] [id number] [place], [place] [id number] Dec, 2014 [facility] [place] [facility] [address]00565100[place], [place] [address]- 8896 Dec, 2014 [facility] [address] [facility] [id number] [place], [place] [id number] Dec, [facility] [place] [facility] [address] [facility] [id number] [place] [address]- 45[address] Dec, [facility] [place] [facility] [address]005[address]100[facility] [place] [address]- 8799 Dec, [facility] [id number] [place], [place] [id number] Nov, [facility] [place] [facility] [address]00565100[place], [place] [address]- 8786 Nov, [facility] [place] [facility] [address] [id number], [place] [address]- 4989 Nov, [facility] [address] [facility] [id number] [place] [id number] Nov, [facility] [place] [facility] [address] [id number], [place] [address] 9396 Nov, [facility] [address] [facility] [id number] [place], [place] [id number] Oct, [facility] [place] [facility] [address] [id number], [place] [address]- 7946 Oct, [facility] [address] [facility] [id number] [place], [place] 845098685 Sep, [facility] [place] [facility] [address] [facility] [id number], [place] [address]- 8306 Sep, [facility] [address] [id number] [place] 650382899 Sep, [facility] [place] [facility] [address] [facility] [id number], [place] [address]- 7716 Sep, [facility] [address] [facility] [id number] [place], [place] [id number] Aug, [facility] [place] [facility] [address] [facility] [id number], [place] [address]- 8797 Aug, [facility] [address] [facility] [id number] [place], [place] [id number] Aug, [facility] [place] [facility] [address] [facility] [id number], [place] [address]- 4882 Aug, [facility] [place] [facility] [address] [facility] [id number], [place] [address]- 2203 Jul, [facility] [address] [facility] [id number] [place], [place] [id number] Jul, [facility] [address] [facility] [id number] [place], [place] 344832523 Jul, [facility] [address] [facility] [id number] [place] 488358261 Jul, [facility] [place] [facility] [address] [facility] [id number], [place] [address]- 8424 Jul, [facility] [place] [facility] [address] [facility] [id number], [place] [address]- 2257 Jul, [facility] [place] [facility] [address] [facility] [id number], [place] [address]- 4332 Jul, [facility] [place] [facility] [address] [facility] [id number], [place] [address]- 4285 Jul, [facility] [address] [facility] [id number] [place], [place] [id number] Jun, [facility] [place] [facility] [address] [facility] [id number], [place] [address]- 9168 Jun, [facility] [place] [facility] [address] [facility] [id number], [place] [address]- 6585 Jun, [facility] [address] [facility] [id number] [place], [place] 712460505 Jun, [facility] [place] [facility] [address] [id number] [place] [address]- 2617 Jun, [facility] [address] [facility] [id number] [place] 004280900 Jun, [facility] [place] [facility] [address] [facility] [id number], [place] [address]- 7845 Jun, [facility] [address] [facility] [id number] [place] 759586391 Apr, [facility] [place] [facility] [address] [facility] [id number] [place] [address]- 3244 Apr, [facility] [address] [facility] [id number] [place] 640660505 Apr, [facility] [place] [facility] [address] [facility] [id number], [place] [address]- 1309 Apr, [facility] [address] [id number] [place] 708294248 Apr, [facility] [place] [facility] [address] [facility] [id number], [place] [address]- 2756 Apr, [facility] [place] [facility] [address] [facility] [id number], [place] [address]- 4529 March, [facility] [place] [facility] [address] [facility] [id number], [place] [address]- 7466 March, [facility] [address] [facility] [id number] [place] 729900796 March, [facility] [address] [facility] [id number] [place], [place] 955304614 Feb, [facility] [place] [facility] [address] [facility] [id number], [place] [address]- 2086 Feb, [facility] [address] [facility] [id number] [place] [id number] Jan, [facility] [place] [facility] [address] [facility] [id number] [address]- 6978 Jan, [facility] [address] [facility] [id number] [place], [place] 179439995 Dec, [facility] [address] [facility] [id number], [place] [address]- 3936 Dec, [facility] [address] [facility] [id number] [place], [place] [id number] Dec, [facility] [address] [facility] [id number], [place] [address]- 6218 Dec, [facility] [place] [facility] [address] [facility] [id number], [place] [address]- 0362 Dec, [facility] [address] [facility] [id number], [place] [address]- 5571 Dec, [facility] [address] [facility] [id number] [place], [place] 885176306 Nov, [facility] [address]00565100[place], [place] [address]- 4014 Nov, [facility] [address] [id number] [place] [id number] Nov, [facility] [address] [id number], [place] [address]- 4871 Nov, [facility] [address] [facility] [id number] [place], [place] 530686931 Nov, [facility] [address] [id number], [place] [address]- 6382 Nov, [facility] [address] [facility] [id number] [place], [place] [id number] Oct, [facility] [place] [facility] [address] [facility] [id number], [place] [address]- 6055 Oct, [facility] [place] [facility] [address] [facility] [id number][place] [address]- 6553 Oct, [facility] [address] [facility] [id number] [place], [place] 719003200 Oct, [facility] [place] [facility] [address] [id number], [place] [address]- 6101 Sep, [facility] [place] [facility] [address] [facility] [id number], [place] [address] 2544 Sep, [facility] [address] [id number] [place] [id number] Sep, [facility] [address] [facility] [id number], [place] [address] 2544 Sep, [facility] [address] [id number] [place] 145425387 Aug, [facility] [address] [facility] [id number] [place] [address] 2549 Aug, [facility] [address] [id number] [place] [id number] Jul, [facility] [address] [id number] [place] [id number] Jul, [facility] [address] [id number] [place] 804409629 Jun, [facility] [address] [id number] [place] [id number] May, [facility] [address] [id number] [place] 550049547 May, [facility] [address] [facility] [id number], [place] [address]- 2546 May, [facility] [address] [id number] [place] 689374936 Apr, [facility] [address] [id number] [place] 608363311 Apr, [facility] [address] [id number] [place] 358292241 March, [facility] [address] [id number] [place] 093805784 Feb, [facility] [address] [id number] [place] [id number] Feb, [facility] [address] [id number] [place] 503043547 Jan, [facility] [address] [id number] [place] [id number] Jan, [facility] [address] [id number] [place] 128922463 Dec, [facility] [address] [id number] [place] [id number] Nov, [facility] [address] [facility] [id number], [place] [address] Oct, [facility] [place] [facility] [address] [facility] [id number], [place] [address] Oct, [facility] [address] [id number] [place] [id number] Oct, [facility] [address] [facility] [id number] [place] [address] Oct, [facility] [id number], [place] [address] Oct, [facility] [address] [id number] [place] [id number] Oct, [facility] [address] [facility] [id number] [place] [id number] Sep, [facility] [id number], [place] [address] Sep, [facility] [address] [facility] [id number] [place] [id number] Sep, [facility] [address] [id number], [place] [address] Sep, [facility] [address] [id number] [place] [id number] Aug, [facility] [place] [facility] [address] [facility] [id number], [place] [address] Aug, [facility] [address] [id number] [place] [id number] Aug, [facility] [address] [id number] [place] [id number] Jun, [facility] [address] [id number] [place] [id number] Jun, [facility] [id number], [place] [address] May, [facility] [id number] [place] [id number] Apr, [facility] [id number] [place] [id number] March, [facility] [id number] [place] [id number] Feb, [facility] [id number] [place] [id number] Jan, [facility] [id number] [place] [id number] Nov, [facility] [id number] [place] [address] Sep, [facility] [id number] [place] [address] Sep, [facility] [id number] [place] [address] Aug, [facility] [id number] [place] [address] Apr, [facility] [id number] [place] [id number] March, IMMUNIZATIONS No Known Immunizations SOCIAL HISTORY Never Assessed REASON FOR VISIT med refills PLAN OF CARE VITAL SIGNS MEDICATIONS Medication Instructions Dosage Frequency Start Date End Date Duration Status Diclofenac Sodium 50 mg Orally Three times a day 1 tablet with food or milk 8h Jan, 0 days Active Levothyroxine Sodium 25 MCG Orally Once a day half a tablet on an empty stomach in the morning 24h May, 0 days Active Atorvastatin Calcium 20 mg Orally Once a day at bedtime 1 tablet May, 0 days Active ProAir HFA 108 (90 Base) MCG/ACT Inhalation every 4 hrs as needed 2 puffs Active Gabapentin 300 MG Orally 3 times [...]
--- OUTSIDE RECORDS SUMMARY | 2018-11-11 16:52 | XMS REPORT ---
Author Author TARIQ TATE [facility] Address [address] [place] [address] Care Team Providers Care Litigation Attorney Name Role Phone TARIQ TATE Unavailable PROBLEMS Type Condition ICD9-CM Code PKV04-YO Code Onset Dates Condition Status SNOMED Code Problem Hip bursitis, left M70.72 Active 12758753 Problem Moderate episode of recurrent major depressive disorder F33.1 Active 279827209 Problem Sciatic leg pain M54.30 Active 07601361 Problem Other depression F32.8 Active 14007222 Problem Osteoarthritis of both knees, unspecified osteoarthritis type M17.0 Active 521252844 Problem Chronic obstructive pulmonary disease, unspecified COPD type J44.9 Active 38639057 Problem Arthralgia of right temporomandibular joint M26.62 Active 51629419 ALLERGIES No Information ENCOUNTERS Encounter Location Date Diagnosis [facility] [employer] [id number] [id number] Feb, [id number] [place] [address] [id number] 14 Dec, 2017 Moderate episode of recurrent major depressive disorder F33.1 ; Sciatic leg pain M54.30 ; Chronic obstructive pulmonary disease, unspecified COPD type J44.9 and Screening for thyroid disorder Z13.[id number] [place] [address] [id number] 05 Dec, 2017 Chronic obstructive pulmonary disease, unspecified COPD type J44.[id number] [place] [address] [id number] Nov, Sciatic leg pain M54.30 [facility] [address] [id number][place] [id number] Oct, [place] [id number] [place] [address] [id number] Oct, Acute pain of right shoulder M25.511 [facility] [address] [id number] [place]OU[place] 447273156 Oct, Chronic obstructive pulmonary disease, unspecified COPD type J44.9 [facility] [address] [id number] [place] [id number] Oct, [facility] [address] [id number] [place] [id number] Sep, Chronic obstructive pulmonary disease, unspecified COPD type J44.9 and Sciatic leg pain M54.30 [facility] [address] [id number] [place]OU[place] 275842559 Aug, Moderate episode of recurrent major depressive disorder F33.1 and Chronic obstructive pulmonary disease, unspecified COPD type J44.9 [facility] [address] [id number], [place] 186701495 Aug, Moderate episode of recurrent major depressive disorder F33.1 [facility] [address] [id number] [place]OU[place] 712998148 Jul, Other depression F32.8 and Chronic obstructive pulmonary disease, unspecified COPD type J44.9 [facility] [place] [address] [id number] [place] [id number] Jul, Moderate episode of recurrent major depressive disorder F33.1 [facility] [address] [id number], [place] [id number] Jun, [facility] [address] [id number] [place] 130310142 Jun, Moderate episode of recurrent major depressive disorder F33.1 [facility] [address] [id number] [place] 420845949 Jun, Moderate episode of recurrent major depressive disorder F33.1 [facility] [address] [id number] [place] 402108379 Jun, [facility] [address] [id number] [place] 8189019[address] Jun, Sciatic leg pain M54.30 [facility] [address] [id number] [place] 470795[address] Jun, [facility] [address] [id number] [place]OU[place] 685496238 May, Screening for thyroid disorder Z13.29 and Screening for lipid disorders Z13.220 [facility] [address] [id number] [place] 685790759 May, Other depression F32.8 [facility] [place] [address] [id number] [place] 537829745 Apr, Sciatic leg pain M54.30 [facility] [place] [id number] [place] [address] [id number] Apr, Screening for lipid disorders Z13.220 ; Screening for thyroid disorder Z13.29 and Chronic obstructive pulmonary disease, unspecified COPD type J44.9 [facility] [place] [id number] [place] [address] [id number] Apr, Screening for lipid disorders Z13.220 ; Screening for thyroid disorder Z13.29 and Chronic obstructive pulmonary disease, unspecified COPD type J44.9 [facility] [place] [address] [id number] [place] [id number] Apr, [facility] [place] [address] [id number] [place] [id number] Apr, Chronic obstructive pulmonary disease, unspecified COPD type J44.9 [facility] [address] [id number] [place] [address] March [facility] [place] [address] [id number] [place] 764752134 March, Sciatic leg pain M54.30 and Other depression F32.8 [facility] [address] [id number] [place] 160469856 March, [facility] [place] [address] [id number] [place] 814625941 Jan, Other depression F32.8 and Sciatic leg pain M54.30 [facility] [address] [id number] [place] 827379758 Jan, Sciatic leg pain M54.30 [facility] [place] [address] [id number] [place] 014585066 Dec, Other depression F32.8 [facility] [place] [address] [id number] [place] 759012611 Dec, Chronic obstructive pulmonary disease, unspecified COPD type J44.9 [facility] [place] [id number] [place] [address] [id number] Nov, [facility] [place] [id number] [place] [address] [id number] Oct, Other depression F32.8 and Chronic obstructive pulmonary disease, unspecified COPD type J44.9 [facility] [place] [id number] [place] [address] [id number] Aug, [facility] [place] [id number] [place] [address] [id number] Aug, Other depression F32.8 ; Arthralgia of right temporomandibular joint M26.62 and Encounter for immunization Z23 [facility] [place] [id number] [place] [address] [id number] Aug, Encounter for well woman exam Z01.419 [facility] [place] [id number] [place] [address] [id number] Jul, Other depression F32.8 and Arthralgia of right temporomandibular joint M26.62 [facility] [place] [id number] [place] [address] [id number] Jun, [facility] [id number] [place] [address] Jun [facility] [place] [id number] [place] [id number] Jun, [facility] [place] [id number] [place] [address] [id number] Jun, Other depression F32.8 and Urinary tract infection without hematuria, site unspecified N39.0 [facility] [place] [id number] [place] [address] [id number] Apr, [facility] [place] [id number] [place] [address] [id number] Apr, Dysuria R30.0 [facility] [address]005[address] [address]- [address] March, [facility] [address] [id number] [place] 029799595 March, Urinary tract infection, site unspecified N39.0 [facility] [place] [address] [id number] [place] [address] [id number] March, Urinary tract infection, site unspecified N39.0 [facility] [place] [address] [id number] [place], [place] [phone] Feb, [facility] [place] [id number] [place] [address] [id number] Feb, Headache R51 and Ear pain H92.09 [facility] [place] [id number] [place] [address] [id number] Jan, Osteoarthritis of both knees, unspecified osteoarthritis type M17.0 and Hip bursitis, left M70.72 [facility] [place] [address] [id number] [place]OU[place] [id number] Jan, [facility] [place] [address] [id number] [place] 729853960 Dec, Unspecified arthropathy, site unspecified 716.90 and COPD (chronic obstructive pulmonary disease) 496 [facility] [address] [id number] [place] [id number] Dec, [facility] [place] [address] [id number] [place] 765543568 Nov, [facility] [place] [address] [id number] [place] [id number] Oct, [facility] [place] [address] [id number] [place] [id number] Sep, [facility] [place] [address] [id number] [place] 370866825 Sep, [facility] [place] [address] [id number] [place] [id number] Aug, [facility] [place] [address] [facility] [address] [id number] [place] [phone] Aug, [facility] [place] [address] [id number] [place] [id number] Aug, Urinary tract infection N39.0 and Shoulder strain, right, initial encounter S46.911A [facility] [address] [id number] [place] 810178299 Aug, Screening breast examination Z12.39 and Encounter for immunization Z23 [facility] [id number] [place] 997126777 Aug, [facility] [id number] [id number] Aug, [facility] [id number] [place] [address] [id number] Jul, [facility] [id number] [place] [address] [id number] Jun, [facility] [id number] [place] [address] [id number] Jun, Allergic rhinitis, cause unspecified 477.9 and Cough 786.2 [facility] [id number] [place] [address] [id number] May, [facility] [id number] [place] [address] [id number] May, [facility] [id number] [place] [address] [id number] May, Visit for suture removal V58.32 [facility] [id number] [place] [address] [phone] May, Dog bite 879.8 [facility] [id number] [place] [address] [id number] Apr, Rib pain on right side 786.50 [facility] [id number] [place] [address] [id number] Apr, [facility] [id number] [place] [address] [id number] Apr, Allergic rhinitis, cause unspecified 477.9 and Cough 786.2 [facility] [id number] [place] [address] [id number] March, [facility] [id number] [place] [address] [id number] March, [facility] [id number] [place] [address] [id number] March, [facility] [place] [address] [id number] [place] [id number] March, [facility] [place] [id number] [place]OU[place], [place] [id number] March, Cough 786.2 and Shortness of breath 786.05 [facility] [place] [id number] [place], [place] [id number] March, [facility] [place] [id number] [place] [id number] March, Cough 786.2 ; COPD (chronic obstructive pulmonary disease) 496 and Allergic rhinitis, cause unspecified 477.9 [facility] [place] [id number] [place] [address] [id number] Feb, Allergic rhinitis, cause unspecified 477.9 ; Cough 786.2 and COPD ( chronic obstructive pulmonary disease) 496 [facility] [address]00565100[place], [place] [address] Feb, [facility] [address]00565100[place], [place] [address]- [address] Feb, [facility] [address] [id number], [place] [address] 2546 Jan, [facility] [address]00565100[place], [place] [address]- [address]46 Jan, [facility] [address]00565100[place], [place] [address]- [address] Jan, [facility] [place] [address] [id number] [place] 004170249 Jan, [facility] [address]00565100[place], [place] [address]- 25[address] Jan, [facility] [place] [address] [id number] [place] [id number] Dec, [facility] [address]00565100[place], [place] [address]- [address]46 Dec, [facility] [place] [id number] [place] [id number] Dec, [facility] [place] [facility] [address] [facility] [id number], [place] [address]- [address] Dec, [facility] [address] [facility] [id number] [place] [id number] Dec, [facility] [place] [facility] [address]00565100[place], [place] [address]- [address] Dec, [facility] [place] [facility] [address]00565100[place], [place] [address] 8[address] Dec, [facility] [address] [facility] [id number] [place]OU[place] [id number] Nov, [facility] [place] [facility] [address]00565100[place], [place] [address]- 2[address] Nov, [facility] [place] [facility] [address]00565100[place], [place] [address]- 8331 Nov, [facility] [id number] [place] [id number] Nov, [facility] [place] [facility] [address]00565100[place], [place] [address] Nov, [facility] [id number] [place], [place] 729810178 Oct, [facility] [place] [facility] [address] [id number], [place] [address]- 16[address] Oct, [facility] [address] [facility] [id number] [place]OU[place] [id number] Sep, [facility] [place] [facility] [address] [facility] [id number], [place] [address]- [address] Sep, [facility] [address] [facility] [id number] [place] [id number] Sep, [facility] [place] [facility] [address] [id number], [place] [address]- 4[address] Sep, [facility] [address] [id number] [place] 889343399 Aug, [facility] [place] [facility] [address] [id number], [place] 819858- 97[address] Aug, [facility] [address] [id number] [place] [id number] Aug, [facility] [place] [facility] [address] [facility] [id number] [place]- 9626 Aug, [facility] [place] [facility] [address] [facility] 3] [id number] [place]- 6[address] Jul, [facility] [address] [id number] [place] [id number] Jul, [facility] [address] [id number] [place] [id number] Jul, [facility] [address] [facility] [id number] [place] [id number] Jul, [facility] [place] [facility] [address] [facility]] [id number], [place] [address]- 6[address] Jul, [facility] [place] [facility] [address] [facility]] [id number], [place] [address]- [address] Jul, [facility] [place] [facility] [address] [facility] 3] [id number][place] [address]- 12[address] Jul, [facility] [place] [facility] [address] [facility] 3] [id number], [place] [address]- 7969 Jul, [facility] [address] [facility] [id number] [place] 114865004 Jun, [facility] [place] [facility] [address] [facility]] [id number], [place] [address]- 7977 Jun, [facility] [place] [facility] [address] [facility] 3] [id number] [place] [address]- 4[address] Jun, [facility] [address] [id number] [place]OU[place] 987259931 Jun, [facility] [place] [facility] [address] [facility]] [id number], [place] 91813537- 1775 Jun, [facility] [address] [facility] [id number] [place] 730952466 Jun, [facility] [place] [facility] [address] [facility]] [id number][place] [address]- 3622 Jun, [facility] [address] [id number] [place] [id number] Apr, [facility] [place] [facility] [address] [facility]] [id number], [place] [address]- 3[address] Apr, [facility] [address] [facility] [id number] [place] [id number] Apr, [facility] [place] [facility] [address] [facility]] [id number], [place] [address]- 9081 Apr, [facility] [address] [facility] [id number] [place] 611005999 Apr, [facility] [place] [facility] [address] [facility]] [id number], [place] [address]- 0756 Apr, [facility] [place] [facility] [address] [id number], [place] [address]- 4957 March, [facility] [place] [facility] [address] [facility] 3] [id number], [place] [address]- 2770 March, [facility] [address] [id number] [place] [id number] March, [facility] [address] [facility] [id number] [place] [id number] Feb, [facility] [place] [facility] [address] [facility]NOTE 3] [id number], [place] [address]- 0395 Feb, [facility] [address] [id number] [place]OU[place] [id number] Jan, [facility] [place] [facility] [address] [facility] 3] [id number], [place] [address]- 6524 Jan, [facility] [address] [facility] [id number] [place]OU[place], [place] 613886294 Dec, [facility] [place] [facility] [address] [facility]] [id number], [place] [address]- 4115 Dec, [facility] [address] [facility] [id number] [place]OU[place] 301426201 Dec, [facility] [place] [facility] [address] [facility] 3] [id number], [place] [address]- 7796 Dec, [facility] [place] [facility] [address] [facility] 3] [id number] [address]- 2176 Dec, [facility] [address] [facility] 3] [id number], [place] [address]- 2546 Dec, [facility] [address] [facility] [id number] [place]OU[place], [place] 533927211 Nov, [facility] [place] [facility] [address] [facility] 3] [id number], [place] [address]- 2946 Nov, [facility] [address] [facility] [id number] [place] 067818674 Nov, [facility] [place] [facility] [address]65[address], [place] [address]- 6596 Nov, [facility] [address] [id number] [place] [id number] Nov, [facility] [place] [facility] [address] [id number], [place] [address]- 5136 Nov, [facility] [address] [id number] [place] 276975037 Oct, [facility] [place] [facility] [address] [facility]] [id number], [place] [address]- 4106 Oct, [facility] [place] [facility] [address] [facility] 3] [id number], [place] [address]- 2546 Oct, [facility] [address] [facility] [id number] [place] 589805580 Oct, [facility] [place] [facility] [address] [facility] [id number], [place] [address]- 6196 Sep, [facility] [place] [facility] [address] [facility]] [id number], [place] [address]- 2546 Sep, [facility] [address] [facility] [id number] [place]OU[place] 038692690 Sep, [facility] [place] [facility] [address] [facility]] [id number], [place] [address]- 9326 Sep, [facility] [address] [id number] [place] [id number] Aug, [facility] [address] [facility] [id number][place] [address]- 2546 Aug, [facility] [address] [id number] [place] [id number] Jul, [facility] [address] [id number] [place] [id number] Jul, [facility] [address] [id number] [place] [id number] Jun, [facility] [address] [id number] [place] [id number] May, [facility] [address] [id number] [place] [id number] May, [facility] [id number], [place] [address] May, [facility] [address] [id number] [place] [id number] Apr, [facility] [address] [id number] [place] [id number] Apr, [facility] [address] [id number] [place] [id number] March, [facility] [address] [id number] [place] [id number] Feb, [facility] [address] [id number] [place] [id number] Feb, [facility] [address] [id number] [place] [id number] Jan, [facility] [address] [id number] [place] [id number] Jan, [facility] [address] [id number] [place] [id number] Dec, [facility] [address] [id number] [place] [id number] Nov, [facility] [place] [facility] [address] [id number], [place] [address] Oct, [facility] [place] [facility] [address] [facility][NOTE 3] [id number] [place] [address] Oct, [facility] [address] [id number] [place] [id number] Oct, [facility] [place] [facility] [address] [facility][NOTE 3] [id number], [place] [address] Oct, [facility] [place] [facility] [address] [facility][NOTE 3] [id number] [place] [address] Oct, [facility] [address] [id number] [place] [id number] Oct, [facility] [address] [id number] [place]OU[place] [id number] Sep, [facility] [address] [facility][NOTE 3] [id number], [place] [address] Sep, [facility] [address] [facility] [id number] [place]OU[place] [id number] Sep, [facility] [place] [facility] [address] [facility][NOTE 3] [id number], [place] [address] Sep, [facility] [address] [facility] [id number] [place]OU[place] [id number] Aug, [facility] [address] [facility][NOTE 3] [id number], [place] [address] Aug, [facility] [address] [id number] [place]OU[place] [id number] Aug, [facility] [address] [id number] [place]OU[place] [id number] Jun, [facility] [address] [id number] [place]OU[place] [id number] Jun, [facility] [place] [facility] [address] [facility][NOTE 3] [id number], [place] [address] May, [facility] [address] [facility] [id number] [place]OU[place] [id number] Apr, [facility] [address] [id number] [place] [id number] March, [facility] [address] [id number] [place] [id number] Feb, [facility] [address] [place] [id number] [id number] Jan, [facility] [address]005[address] [id number] Nov, [facility] [address]005[address]100[place], [place] [address] Sep, [facility] [id number] [place] [address]- 5064 Sep, [facility] [id number] [place] [address] 23237- 1136 Aug, [facility] [address] [id number], [place] [address] Apr, [facility] [address] [id number], [place] [address] March, IMMUNIZATIONS No Known Immunizations SOCIAL HISTORY Never Assessed REASON FOR VISIT PALS -Advair received PLAN OF CARE VITAL SIGNS MEDICATIONS [...]
--- OUTSIDE RECORDS SUMMARY | 2018-11-11 16:53 | XMS REPORT ---
Author Author TARIQ TATE Organization [facility] Address [address] [place] [address] Care Team Providers Care Terrazzo Grinder Name Role Phone TARIQ TATE Unavailable PROBLEMS Type Condition ICD9-CM Code UTH80-QR Code Onset Dates Condition Status SNOMED Code Problem Hip bursitis, left M70.72 Active 02454994 Problem Moderate episode of recurrent major depressive disorder F33.1 Active 821330067 Problem Sciatic leg pain M54.30 Active 65987302 Problem Other depression F32.8 Active 42049750 Problem Osteoarthritis of both knees, unspecified osteoarthritis type M17.0 Active 918775546 Problem Chronic obstructive pulmonary disease, unspecified COPD type J44.9 Active 04719614 Problem Arthralgia of right temporomandibular joint M26.62 Active 77238567 ALLERGIES No Information ENCOUNTERS Encounter Location Date Diagnosis [id number] [place] [address] [id number] 14 Dec, 2017 Moderate episode of recurrent major depressive disorder F33.1 ; Sciatic leg pain M54.30 ; Chronic obstructive pulmonary disease, unspecified COPD type J44.9 and Screening for thyroid disorder Z13.29 [id number] [place] [address] [id number] Dec, Chronic obstructive pulmonary disease, unspecified COPD type J44.9 [address] [facility] [id number] [place] [address] [id number] Nov, Sciatic leg pain M54.[address] [id number] [id number] Oct, [facility] [id number] [place] [address] [id number] Oct, Acute pain of right shoulder M25.511 [address] [place] [address] [id number] Oct, Chronic obstructive pulmonary disease, unspecified COPD type J44.9 [facility] [address] [id number], [place] [phone] Oct, [facility] [address] [id number] [place] [address] [id number] Sep, Chronic obstructive pulmonary disease, unspecified COPD type J44.9 and Sciatic leg pain M54.30 [facility] [id number] [place] [address] [id number] Aug, Moderate episode of recurrent major depressive disorder F33.1 and Chronic obstructive pulmonary disease, unspecified COPD type J44.9 [facility] [address] [id number] [place] [id number] Aug, Moderate episode of recurrent major depressive disorder F33.1 [facility] [address] [id number], [place] [id number] Jul, Other depression F32.8 and Chronic obstructive pulmonary disease, unspecified COPD type J44.9 [facility] [address] [id number], [place] [id number] Jul, Moderate episode of recurrent major depressive disorder F33.1 [facility] [address] [id number] [place] [phone] Jun, [facility] [address] [id number], [place] 612932558 Jun, Moderate episode of recurrent major depressive disorder F33.1 [facility] [place] [address] [id number], [place] [phone] Jun, Moderate episode of recurrent major depressive disorder F33.1 [facility] [address] [id number], [place] [id number] Jun, [facility] [address] [id number], [place] [id number] Jun, Sciatic leg pain M54.30 [facility] [address] [id number], [place] [id number] Jun, [facility] [address] [id number], [place] [id number] May, Screening for thyroid disorder Z13.29 and Screening for lipid disorders Z13.220 [facility] [address] [id number], [place] 508194477 May, Other depression F32.8 [facility] [address] [id number] [place] [address] [id number] Apr, Sciatic leg pain M54.30 [facility] [address] [id number], [place] 101387926 Apr, Screening for lipid disorders Z13.220 ; Screening for thyroid disorder Z13.29 and Chronic obstructive pulmonary disease, unspecified COPD type J44.9 [facility] [address] [id number], [place] [id number] Apr, Screening for lipid disorders Z13.220 ; Screening for thyroid disorder Z13.29 and Chronic obstructive pulmonary disease, unspecified COPD type J44.9 [facility] [address] [id number], [place] 5457[address]152 Apr, [facility] [id number] [place] [address] [id number] Apr, Chronic obstructive pulmonary disease, unspecified COPD type J44.[address] [facility] [address] [id number] [place] [address] March [facility] [id number] [place] [address] [id number] March, Sciatic leg pain M54.30 and Other depression F32.8 [facility] [address] [id number], [place] [id number] March, [facility] [address] [id number], [place] [id number] Jan, Other depression F32.8 and Sciatic leg pain M54.30 [facility] [address] [id number], [place] [id number] Jan, Sciatic leg pain M54.30 [facility] [place] [id number], [place] [id number] Dec, Other depression F32.8 [facility] [address] [id number], [place] [id number] Dec, Chronic obstructive pulmonary disease, unspecified COPD type J44.9 [facility] [id number], [place] [id number] Nov, [facility] [id number] [place] [address] [phone] Oct, Other depression F32.8 and Chronic obstructive pulmonary disease, unspecified COPD type J44.9 [facility] [id number] [place] [address] [id number] Aug, [facility] [id number] [place] [address] [id number] Aug, Other depression F32.8 ; Arthralgia of right temporomandibular joint M26.62 and Encounter for immunization Z23 [facility] [place] [id number] [place] [address] [id number] Aug, Encounter for well woman exam Z01.419 [facility] [place] [id number] [place] [address] [id number] Jul, Other depression F32.8 and Arthralgia of right temporomandibular joint M26.62 [facility] [id number], [place] [id number] Jun, [facility] [address] [id number] [place] [address] Jun [facility] [id number] [place] [address] [id number] Jun, [facility] [id number] [place] [address] [id number] Jun, Other depression F32.8 and Urinary tract infection without hematuria, site unspecified N39.0 [facility] [id number], [place] [id number] Apr, [facility] [id number] [place] [address] [phone] Apr, Dysuria R30.0 [facility] [address]00565100[place], [place] [address] March, [facility] [id number] [place] [address] [id number] March, Urinary tract infection, site unspecified N39.0 [facility] [place] [address] [id number], [place] [id number] March, Urinary tract infection, site unspecified N39.0 [facility] [place] [address] [id number], [place] [phone] Feb, [facility] [address] [id number] [place] [address] [id number] Feb, Headache R51 and Ear pain H92.09 [facility] [id number] [place] [address] [id number] Jan, Osteoarthritis of both knees, unspecified osteoarthritis type M17.0 and Hip bursitis, left M70.72 [facility] [id number] [place] [address] [id number] Jan, [facility] [place] [id number] [place] [address] [phone] Dec, Unspecified arthropathy, site unspecified 716.90 and COPD (chronic obstructive pulmonary disease) 496 [facility] [place] [address] [id number], [place] [id number] Dec, [facility] [id number] [place] [address] [id number] Nov, [facility] [address] [id number] [place] [address] [phone] Oct, [facility] [id number] [place] [address] [id number] Sep, [facility] [id number] [place] [address] [id number] Sep, [facility] [address] [facility] [id number], [place] [id number] Aug, [facility] [place] [address] [facility] [id number] [place] [id number] Aug, [facility] [place] [address] [facility] [id number], [place] [phone] Aug, Urinary tract infection N39.0 and Shoulder strain, right, initial encounter S46.911A [facility] [id number] [place] [address] [id number] Aug, Encounter for immunization Z23 and Screening breast examination Z12.39 [facility] [address] [id number], [place] [phone] Aug, [facility] [id number] [place] [phone] Aug, [facility] [id number], [place] [phone] Jul, [facility] [id number] [place] [address] [id number] Jun, [facility] [id number], [place] [id number] Jun, Allergic rhinitis, cause unspecified 477.9 and Cough 786.2 [facility] [id number] [place] [address] [id number] May, [facility] [id number], [place] [id number] May, [facility] [id number] [place] [address] [phone] May, Visit for suture removal V58.32 [facility] [id number], [place] 946342904 May, Dog bite 879.8 [facility] [id number] [place] [address] [id number] Apr, Rib pain on right side 786.50 [facility] [id number], [place] [id number] Apr, [facility] [id number] [place] [address] [id number] Apr, Allergic rhinitis, cause unspecified 477.9 and Cough 786.2 [facility] [id number], [place] [phone] March, [facility] [id number] [place] [address] [id number] March, [facility] [id number], [place] [id number] March, [facility] [id number] [place] [address] [phone] March, [facility] [address] [id number], [place] [phone] March, Cough 786.2 and Shortness of breath 786.05 [facility] [place] [id number], [place] [phone] March, [facility] [id number], [place] [phone] March, Cough 786.2 ; COPD (chronic obstructive pulmonary disease) 496 and Allergic rhinitis, cause unspecified 477.9 [facility] [id number], [place] [id number] Feb, Allergic rhinitis, cause unspecified 477.9 ; Cough 786.2 and COPD ( chronic obstructive pulmonary disease) 496 [facility] [address]00565100[place], [place] [address]- [address] Feb, [facility] [id number] [place] [address]23- 3456 Feb, [facility] [id number] [place] [address] 19333- 2540 Jan, [facility] [id number] [place] [address] 88098- 0696 Jan, [facility] [address]00565100[place], [place] [address]- 0229 Jan, [facility] [id number], [place] [id number] Jan, [facility] [address]00565100[place], [place] [address]- 2546 Jan, [facility] [id number], [place] [id number] Dec, [facility] [address]00565100[place], [place] [address]- 2546 Dec, [facility] [address] [id number], [place] [id number] Dec, [facility] [address] [id number], [place] [address]- 6[address] Dec, [facility] [address] [id number] [place] [id number] Dec, [facility] [place] [facility] [address] [facility] [id number], [place] [address]- 8166 Dec, [facility] [place] [facility] [address] [facility] [id number] [place] [address]- 2546 Dec, [facility] [address] [facility] [id number], [place] [id number] Nov, [facility] [place] [facility] [address] [facility] [id number] [place] [address]- 5196 Nov, [facility] [place] [facility] [address] [facility] [id number] [place] [address]- 5801 Nov, [facility] [address] [facility] [id number], [place] [id number] Nov, [facility] [place] [facility] [address] [facility] [id number], [place] [address]- 2264 Nov, [facility] [address] [facility] [id number] [place] [id number] Oct, [facility] [place] [facility] [address] [facility] [id number], [place] [address]- 5026 Oct, [facility] [address] [facility] [id number] [place] [id number] Sep, [facility] [place] [facility] [address] [facility] [id number], [place] [address]- 2546 Sep, [facility] [address] [facility] [id number], [place] 840447025 Sep, [facility] [place] [facility] [address] [facility] [id number] [place] [address] 2546 Sep, [facility] [address] [facility] [id number], [place] [phone] Aug, [facility] [place] [facility] [address] [facility] [id number], [place] [address]- 0436 Aug, [facility] [address] [id number], [place] [id number] Aug, [facility] [place] [facility] [address] [facility] [id number], [place] [address]- 4015 Aug, [facility] [place] [facility] [address] [facility] [id number], [place] 164984- 2165 Jul, [facility] [address] [id number] [place] [id number] Jul, [facility] [address] [id number] [place] [id number] Jul, [facility] [address] [facility] [id number] [place] [id number] Jul, [facility] [place] [facility] [address] [facility] [id number], [place] [address]- 7372 Jul, [facility] [place] [facility] [address]00565100[place], [place] [address]- 1275 Jul, [facility] [place] [facility] [address] [facility] [id number], [place] [address]- 6644 Jul, [facility] [place] [facility] [address] [facility] [id number], [place] [address]- 7770 Jul, [facility] [address] [facility] [id number], [place] [id number] Jun, [facility] [place] [facility] [address] [facility] [id number], [place] [address]- 6967 Jun, [facility] [place] [facility] [address] [facility] [id number], [place] [address]- 4013 Jun, [facility] [address] [facility] [id number], [place] 090859863 Jun, [facility] [place] [facility] [address] [facility] [id number], [place] [address]- 5064 Jun, [facility] [address] [facility] [id number] [place] [id number] Jun, [facility] [place] [facility] [address] [facility] [id number], [place] [address]- 0728 Jun, [facility] [address] [id number], [place] [id number] Apr, [facility] [place] [facility] [address] [facility] [id number], [place] [address]- 2546 Apr, [facility] [address] [id number], [place] [id number] Apr, [facility] [place] [facility] [address]00565100[place], [place] [address]- 5166 Apr, [facility] [address] [id number], [place] 199720757 Apr, [facility] [place] [facility] [address]00565100[place], [place] [address]- 7306 Apr, [facility] [place] [facility] [address]00565100[place], [place] [address]- 6004 March, [facility] [place] [facility] [address]00565100[place], [place] [address]- 4424 March, [facility] [address] [id number], [place] [id number] March, [facility] [address] [facility] [id number], [place] [id number] Feb, [facility] [place] [facility] [address]00565100[place], [place] [address]- 9916 Feb, [facility] [address] [id number], [place] [id number] Jan, [facility] [place] [facility] [address] [facility] [id number], [place] [address] 2546 Jan, [facility] [address] [id number], [place] [id number] Dec, [facility] [place] [facility] [address] [facility] [id number], [place] [address]- 7896 Dec, [facility] [address] [facility] [id number], [place] 098471080 Dec, [facility] [place] [facility] [address]00565100[place], [place] [address]- 4706 Dec, [facility] [place] [facility] [address] [facility] [id number], [place] [address]- 9224 Dec, [facility] [place] [facility] [address] [id number], [place] [address]- 9750 Dec, [facility] [id number], [place] 542945781 Nov, [facility] [place] [facility] [address] [facility] [id number], [place] [address]- 6152 Nov, [facility] [address] [id number], [place] 142227216 Nov, [facility] [place] [facility] [address]00565100[place], [place] [address]- 1353 Nov, [facility] [id number], [place] 255055941 Nov, [facility] [place] [facility] [address]00565100[place], [place] [address]- 3211 Nov, [facility] [id number], [place] 124711763 Oct, [facility] [place] [facility] [address]00565100[place], [place] [address]- 9302 Oct, [facility] [place] [facility] [address]00565100[place], [place] [address]- 6458 Oct, [facility] [address] [id number], [place] 880230937 Oct, [facility] [place] [facility] [address] [facility] [id number], [place] [address]- 2152 Sep, [facility] [place] [facility] [address] [facility] [id number], [place] [address]- 7539 Sep, [facility] [address] [id number], [place] 134842008 Sep, [facility] [place] [facility] [address] [facility] [id number], [place] [address]- 5462 Sep, [facility] [address] [id number] [place] [id number] Aug, [facility] [address] [facility] [id number][place] [address]- 1554 Aug, [facility] [address] [id number] [place] [id number] Jul, [facility] [address] [id number] [place] [id number] Jul, [facility] [address] [id number] [place] [id number] Jun, [facility] [address] [id number] [place] 858479469 May, [facility] [address] [id number] [place] [id number] May, [facility] [address] [facility] [id number], [place] [address]- 2546 May, [facility] [address] [id number] [place] [id number] Apr, [facility] [address] [id number] [place] [id number] Apr, [facility] [address] [id number] [place] [id number] March, [facility] [address] [id number] [place] [id number] Feb, [facility] [address] [id number] [place] [id number] Feb, [facility] [address] [id number] [place] [id number] Jan, [facility] [address] [id number] [place] [id number] Jan, [facility] [address] [id number] [place] [id number] Dec, [facility] [address] [id number] [place] [id number] Nov, [facility] [id number] [address] Oct, [facility] [address] [facility] [id number], [place] [address] Oct, [facility] [address] [id number] [place] [id number] Oct, [facility] [address] [facility] [id number], [place] [address] Oct, [facility] [address] [facility] [id number], [place] [address] Oct, [facility] [address] [id number] [id number] Oct, [facility] [address] [id number] [place] [id number] Sep, [facility] [address] [facility] [id number], [place] [address] Sep, [facility] [address] [id number][place] [id number] Sep, [facility] [address] [id number], [place] [address] Sep, [facility] [address] [id number][place] [id number] Aug, [facility] [address] [facility] [id number], [place] [address] Aug, [facility] [address] [id number][place] [id number] Aug, [facility] [address] [id number][place] [id number] Jun, [facility] [address] [id number][place] [id number] Jun, [facility] [address] [facility] [id number], [place] [address] May, [facility] [address] [id number][place] [id number] Apr, [facility] [address] [id number][place] [id number] March, [facility] [address] [id number] [place] [id number] Feb, [facility] [address] [facility] [id number][place] [id number] Jan, [facility] [address] [id number] [id number] Nov, [facility] [id number], [place] [address] Sep, [facility] [id number], [place] [address] Sep, [facility] [id number], [place] [address] Aug, [facility] [id number], [place] [address] Apr, [facility] [id number], [place] [address] March, IMMUNIZATIONS No Known Immunizations SOCIAL HISTORY Never Assessed REASON FOR VISIT med refill PLAN OF CARE VITAL SIGNS MEDICATIONS Medication Instructions Dosage Frequency Start Date End Date Duration Status ProAir HFA 108 (90 Base) MCG/ACT Inhalation every 4 hrs as needed 2 puffs 0 days Active Gabapentin 300 MG Orally [...]
--- OUTSIDE RECORDS SUMMARY | 2018-11-11 16:53 | XMS REPORT ---
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 Name Role Phone TARIQ TATE Unavailable PROBLEMS Type Condition ICD9-CM Code YLI83-XD Code Onset Dates Condition Status SNOMED Code Problem Hip bursitis, left M70.72 Active 77321768 Problem Moderate episode of recurrent major depressive disorder F33.1 Active 671582265 Problem Sciatic leg pain M54.30 Active 89144904 Problem Other depression F32.8 Active 97213729 Problem Osteoarthritis of both knees, unspecified osteoarthritis type M17.0 Active 513035383 Problem Chronic obstructive pulmonary disease, unspecified COPD type J44.9 Active 18840791 Problem Arthralgia of right temporomandibular joint M26.62 Active 55424580 ALLERGIES No Information ENCOUNTERS Encounter Location Date Diagnosis [id number] [place] [address] [id number] Dec, Moderate episode of recurrent major depressive disorder F33.1 ; Sciatic leg pain M54.30 ; Chronic obstructive pulmonary disease, unspecified COPD type J44.9 and Screening for thyroid disorder Z13.29 [id number] [place] [address] [id number] Dec, Chronic obstructive pulmonary disease, unspecified COPD type J44.9 [place] [address] [facility] [id number] [place] [address] [id number] Nov, Sciatic leg pain M54.[address] [place] [place] [address] [id number] [id number] Oct, [facility] [id number] [place] [address] [id number] Oct, Acute pain of right shoulder M25.511 [address] [place] [address] [id number] Oct, Chronic obstructive pulmonary disease, unspecified COPD type J44.9 [facility] [place] [address] [id number], [place] [id number] Oct, [facility] [place] [id number] [place] [address] [id number] Sep, Chronic obstructive pulmonary disease, unspecified COPD type J44.9 and Sciatic leg pain M54.30 [facility] [place] [address] [id number] [place] [address] [id number] Aug, Moderate episode of recurrent major depressive disorder F33.1 and Chronic obstructive pulmonary disease, unspecified COPD type J44.9 [facility] [address] [id number] [id number] Aug, Moderate episode of recurrent major depressive disorder F33.1 [facility] [place] [address] [id number], [place] [id number] Jul, Other depression F32.8 and Chronic obstructive pulmonary disease, unspecified COPD type J44.9 [facility] [place] [address] [id number], [place] [id number] Jul, Moderate episode of recurrent major depressive disorder F33.1 [facility] [address] [id number], [place] [id number] Jun, [facility] [place] [address] [id number], [place] [id number] Jun, Moderate episode of recurrent major depressive disorder F33.1 [facility] [place] [address] [id number], [place] [id number] Jun, Moderate episode of recurrent major depressive disorder F33.1 [facility] [place] [address] [id number], [place] [id number] Jun, [facility] [place] [address] [id number], [place] 480547946 Jun, Sciatic leg pain M54.30 [facility] [place] [address] [id number], [place] [id number] Jun, [facility] [place] [address] [id number], [place] [id number] May, Screening for thyroid disorder Z13.29 and Screening for lipid disorders Z13.220 [facility] [place] [address] [id number], [place] 895506042 May, Other depression F32.8 [facility] [place] [address] [id number] [place] [address] [id number] Apr, Sciatic leg pain M54.30 [facility] [place] [address] [id number], [place] [id number] Apr, Screening for lipid disorders Z13.220 ; Screening for thyroid disorder Z13.29 and Chronic obstructive pulmonary disease, unspecified COPD type J44.9 [facility] [address] [id number], [place] [id number] Apr, Screening for lipid disorders Z13.220 ; Screening for thyroid disorder Z13.29 and Chronic obstructive pulmonary disease, unspecified COPD type J44.9 [facility] [address] [id number], [place] [id number] Apr, [facility] [place] [id number] [place] [address] [id number] Apr, Chronic obstructive pulmonary disease, unspecified COPD type J44.[address] [facility] [address] [id number] [place] [address] March [facility] [id number] [place] [address] [id number] March, Sciatic leg pain M54.30 and Other depression F32.8 [facility] [place] [address] [id number], [place] [id number] March, [facility] [place] [address] [id number], [place] [id number] Jan, Other depression F32.8 and Sciatic leg pain M54.30 [facility] [address] [id number], [place] [id number] Jan, Sciatic leg pain M54.30 [facility] [place] [id number], [place] [id number] Dec, Other depression F32.8 [facility] [place] [address] [id number], [place] 398391643 Dec, Chronic obstructive pulmonary disease, unspecified COPD type J44.9 [facility] [id number], [place] [id number] Nov, [facility] [place] [id number] [place] [address] [id number] Oct, Other depression F32.8 and Chronic obstructive pulmonary disease, unspecified COPD type J44.9 [facility] [id number] [place] [address] [id number] Aug, [facility] [place] [id number] [place] [address] [id number] Aug, Other depression F32.8 ; Arthralgia of right temporomandibular joint M26.62 and Encounter for immunization Z23 [facility] [place] [address] [place] [place] [id number] [place] [address] [id number] Aug, Encounter for well woman exam Z01.419 [facility] [place] [address] [place] [id number] [place] [address] [id number] Jul, Other depression F32.8 and Arthralgia of right temporomandibular joint M26.62 [facility] [place] [id number], [place] [id number] Jun, [facility] [address] [id number] [place] [address] Jun [facility] [place] [id number] [place] [address] [id number] Jun, [facility] [place] [id number] [place] [address] [id number] Jun, Other depression F32.8 and Urinary tract infection without hematuria, site unspecified N39.0 [facility] [place] [id number], [place] [id number] Apr, [facility] [place] [id number] [place] [address] [id number] Apr, Dysuria R30.0 [facility] [address]00565100[place] [address]- [address] March, [facility] [place] [id number] [place] [address] [id number] March, Urinary tract infection, site unspecified N39.0 [facility] [place] [address] [id number], [place] [id number] March, Urinary tract infection, site unspecified N39.0 [facility] [place] [address] [id number], [place] [id number] Feb, [facility] [place] [address] [id number] [place] [address] [id number] Feb, Headache R51 and Ear pain H92.09 [facility] [place] [id number] [place] [address] [id number] Jan, Osteoarthritis of both knees, unspecified osteoarthritis type M17.0 and Hip bursitis, left M70.72 [facility] [place] [id number] [place] [address] [id number] Jan, [facility] [place] [id number] [place] [address] [id number] Dec, Unspecified arthropathy, site unspecified 716.90 and COPD (chronic obstructive pulmonary disease) 496 [facility] [place] [address] [id number], [place] [id number] Dec, [facility] [place] [id number] [place] [address] [id number] Nov, [facility] [place] [address] [id number] [place] [address] [id number] Oct, [facility] [place] [id number] [place] [address] [id number] Sep, [facility] [place] [address] [id number] [place] [address] [id number] Sep, [facility] [place] [address] [facility] [id number], [place] [id number] Aug, [facility] [place] [address] [facility] [id number] [place] [id number] Aug, [facility] [place] [address] [facility] [id number], [place] [id number] Aug, Urinary tract infection N39.0 and Shoulder strain, right, initial encounter S46.911A [facility] [place] [id number] [place] [address] [id number] Aug, Screening breast examination Z12.39 and Encounter for immunization Z23 [facility] [address] [place] [id number], [place] [id number] Aug, [facility] [id number], [place] [id number] Aug, [facility] [id number], [place] [id number] Jul, [facility] [id number] [place] [address] [id number] Jun, [facility] [id number], [place] [id number] Jun, Allergic rhinitis, cause unspecified 477.9 and Cough 786.2 [facility] [id number] [place] [address] [id number] May, [facility] [id number], [place] [id number] May, [facility] [address] [id number] [place] [address] [id number] May, Visit for suture removal V58.32 [facility] [id number], [place] [id number] May, Dog bite 879.8 [facility] [id number] [place] [address] [id number] Apr, Rib pain on right side 786.50 [facility] [id number], [place] [id number] Apr, [facility] [address] [place] [id number] [place] [address] [id number] Apr, Allergic rhinitis, cause unspecified 477.9 and Cough 786.2 [facility] [id number], [place] [id number] March, [facility] [id number] [place] [address] [id number] March, [facility] [id number], [place] [id number] March, [facility] [address] [place] [id number] [place] [address] [id number] March, [facility] [place] [address] [place] [id number], [place] [id number] March, Cough 786.2 and Shortness of breath 786.05 [facility] [place] [id number], [place] [id number] March, [facility] [place] [id number], [place] [id number] March, Cough 786.2 ; COPD (chronic obstructive pulmonary disease) 496 and Allergic rhinitis, cause unspecified 477.9 [facility] [place] [id number], [place] [id number] Feb, Allergic rhinitis, cause unspecified 477.9 ; Cough 786.2 and COPD ( chronic obstructive pulmonary disease) 496 [facility] [address]00565100[place], [place] [address] Feb, [facility] [address] [place] [id number] [place] [address] 80[address]- 0086 Feb, [facility] [id number] [place] [address] 26252- 2548 Jan, [facility] [address] [place] [id number] [place] [address] 07580- 0396 Jan, [facility] [address]00565100[place], [place] [address]- 4804 Jan, [facility] [id number], [place] [id number] Jan, [facility] [address]00565100[place], [place] [address]- 2546 Jan, [facility] [id number], [place] [id number] Dec, [facility] [address]00565100[place], [place] [address]- 2546 Dec, [facility] [address] [place] [id number], [place] [id number] Dec, [facility] [address] [place] [address] [id number], [place] [address]- 9566 Dec, [facility] [address] [id number] [place] [id number] Dec, [facility] [place] [facility] [address] [facility] [id number], [place] [address]- [address] Dec, [facility] [place] [facility] [address] [facility] 3] [id number] [place] [address]- 2546 Dec, [facility] [address] [facility] [id number], [place] [id number] Nov, [facility] [place] [facility] [address] [facility]] [id number] [place] [address]- 5246 Nov, [facility] [place] [facility] [address] [facility] 3] [id number] [place] [address]- 1766 Nov, [facility] [address] [facility] [id number], [place] [id number] Nov, [facility] [place] [facility] [address] [facility] 3] [id number], [place] [address]- 4177 Nov, [facility] [address] [facility] [id number] [place] [id number] Oct, [facility] [place] [facility] [address] [facility] 3] [id number], [place] [address]- 7916 Oct, [facility] [address] [facility] [id number] [place] [id number] Sep, [facility] [place] [facility] [address] [facility] 3] [id number], [place] [address]- 2546 Sep, [facility] [address] [facility] [id number], [place] [id number] Sep, [facility] [place] [facility] [address] [facility] 3] [id number] [place] [address] 2546 Sep, [facility] [address] [facility] [id number], [place] [id number] Aug, [facility] [place] [facility] [address] [facility]] [id number], [place] [address]- 7657 Aug, [facility] [address] [id number], [place] [id number] Aug, [facility] [place] [facility] [address] [facility] 3] [id number], [place] [address]- 0256 Aug, [facility] [place] [facility] [address] [facility] 3] [id number], [place] 309912- 7654 Jul, [facility] [address] [id number] [place] [id number] Jul, [facility] [address] [id number] [place] [id number] Jul, [facility] [address] [facility] [id number] [place] 026831835 Jul, [facility] [place] [facility] [address] [facility] 3] [id number], [place] [address]- 9561 Jul, [facility] [place] [facility] [address]00565100[place], [place] [address]- 6885 Jul, [facility] [place] [facility] [address] [facility] 3] [id number], [place] [address]- 9813 Jul, [facility] [place] [facility] [address] [facility]NOTE 3] [id number], [place] [address]- 3507 Jul, [facility] [address] [facility] [id number], [place] [id number] Jun, [facility] [place] [facility] [address] [facility] 3] [id number], [place] [address]- 0819 Jun, [facility] [place] [facility] [address] [facility] 3] [id number], [place] [address]- 1784 Jun, [facility] [address] [facility] [id number], [place] [id number] Jun, [facility] [place] [facility] [address] [facility] 3] [id number], [place] [address]- 3196 Jun, [facility] [address] [facility] [id number] [place] [id number] Jun, [facility] [place] [facility] [address] [facility] 3] [id number], [place] [address]- 1640 Jun, [facility] [address] [id number], [place] [id number] Apr, [facility] [place] [facility] [address] [facility] 3] [id number], [place] [address]- 2546 Apr, [facility] [address] [id number], [place] 336508934 Apr, [facility] [place] [facility] [address]00565100[place], [place] [address]- 2726 Apr, [facility] [address] [id number], [place] [id number] Apr, [facility] [place] [facility] [address]00565100[place], [place] [address]- 7956 Apr, [facility] [place] [facility] [address]00565100[place], [place] [address]- 5311 March, [facility] [place] [facility] [address]00565100[place], [place] [address]- 9817 March, [facility] [address] [id number], [place] 560624798 March, [facility] [address] [facility] [id number], [place] 234572398 Feb, [facility] [place] [facility] [address]00565100[place], [place] [address]- 5306 Feb, [facility] [address] [id number], [place] 837959179 Jan, [facility] [place] [facility] [address] [facility] 3] [id number], [place] [address] 2546 Jan, [facility] [address] [id number], [place] [id number] Dec, [facility] [place] [facility] [address] [facility]NOTE 3] [id number], [place] [address]- 6356 Dec, [facility] [address] [facility] [id number], [place] 044819961 Dec, [facility] [place] [facility] [address]00565100[place], [place] [address]- 0066 Dec, [facility] [place] [facility] [address] [facility]NOTE 3] [id number], [place] [address]- 6112 Dec, [facility] [place] [facility] [address] [id number], [place] [address]- 9233 Dec, [facility] [id number], [place] 050999779 Nov, [facility] [place] [facility] [address] [facility]NOTE 3] [id number], [place] [address]- 4567 Nov, [facility] [address] [id number], [place] 512835903 Nov, [facility] [place] [facility] [address]00565100[place], [place] [address]- 0931 Nov, [facility] [id number], [place] 724245509 Nov, [facility] [place] [facility] [address]00565100[place], [place] [address]- 0863 Nov, [facility] [id number], [place] 697606554 Oct, [facility] [place] [facility] [address]00565100[place], [place] [address]- 7965 Oct, [facility] [place] [facility] [address]00565100[place], [place] [address]- 3178 Oct, [facility] [address] [id number], [place] 575037136 Oct, [facility] [facility] [address] [facility]NOTE 3] [id number], [place] [address]- 8858 Sep, [facility] [facility] [address] [facility]NOTE 3] [id number], [place] [address]- 4079 Sep, [facility] [address] [id number], [place] 695999804 Sep, [facility] [address] [facility]NOTE 3] [id number], [place] [address]- 7283 Sep, [facility] [address] [id number] [place] 994265067 Aug, [facility] [address] [facility] 3] [id number], [place] [address]- 1826 Aug, [facility] [address] [id number] [place] [id number] Jul, [facility] [address] [id number] [place] [id number] Jul, [facility] [address] [id number] [place] [id number] Jun, [facility] [address] [id number] [place] [id number] May, [facility] [address] [id number] [place] [id number] May, [facility] [address] [facility][NOTE 3] [id number], [place] [address] May, [facility] [address] [id number] [place] [id number] Apr, [facility] [address] [id number] [place] [id number] Apr, [facility] [address] [id number] [place] [id number] March, [facility] [address] [id number] [place] [id number] Feb, [facility] [address] [id number] [place] [id number] Feb, [facility] [address] [id number] [place] [id number] Jan, [facility] [address] [id number] [place] [id number] Jan, [facility] [address] [id number] [place] [id number] Dec, [facility] [address] [id number] [place] [id number] Nov, [facility] [id number] [address] Oct, [facility] [address] [facility][NOTE 3] [id number], [place] [address] Oct, [facility] [address] [id number] [place] [id number] Oct, [facility] [address] [facility][NOTE 3] [id number], [place] [address] Oct, [facility] [address] [facility][NOTE 3] [id number], [place] [address] Oct, [facility] [address] [id number][place] [id number] Oct, [facility] [address] [id number] [place] [id number] Sep, [facility] [address] [facility][NOTE 3] [id number], [place] [address] Sep, [facility] [address] [id number][place] [id number] Sep, [facility] [address] [id number] [address] Sep, [facility] [address] [id number], [place] [id number] Aug, [facility] [address] [facility][NOTE 3] [id number], [place] [address] Aug, [facility] [address] [id number], [place] [id number] Aug, [facility] [address] [id number], [place] [id number] Jun, [facility] [address] [id number], [place] [id number] Jun, [facility] [address] [facility][NOTE 3] [id number], [place] [address] May, [facility] [address] [id number][place] [id number] Apr, [facility] [address] [id number][place] [id number] March, [facility] [address] [id number] [place] [id number] Feb, [facility] [address] [facility] [id number][place] [id number] Jan, [facility] [address] [id number][place] [id number] Nov, [facility] [id number], [place] [address] Sep, [facility] [id number], [place] [address] Sep, [facility] [id number], [place] [address] Aug, [facility] [facility] [id number], [place] [address], [facility] [id number], [place] [address] March, IMMUNIZATIONS No Known Immunizations SOCIAL [...]
--- OUTSIDE RECORDS SUMMARY | 2018-11-11 16:54 | XMS REPORT ---
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 Role Phone TARIQ TATE Unavailable PROBLEMS Type Condition ICD9-CM Code [id number] Code Onset Dates Condition Status SNOMED Code Problem Hip bursitis, left M70.72 Active 55879942 Problem Moderate episode of recurrent major depressive disorder F33.1 Active 830756237 Problem Sciatic leg pain M54.30 Active 40104437 Problem Other depression F32.8 Active 71005245 Problem Osteoarthritis of both knees, unspecified osteoarthritis type M17.0 Active 649130165 Problem Chronic obstructive pulmonary disease, unspecified COPD type J44.9 Active 12756145 Problem Arthralgia of right temporomandibular joint M26.62 Active [id number] ALLERGIES No Information ENCOUNTERS Encounter Location Date Diagnosis [id number] [place] [address] [id number] 14 Dec, 2017 Moderate episode of recurrent major depressive disorder F33.1 ; Sciatic leg pain M54.30 ; Chronic obstructive pulmonary disease, unspecified COPD type J44.9 and Screening for thyroid disorder Z13.29 [id number] [place] [address] [id number] Dec, Chronic obstructive pulmonary disease, unspecified COPD type J44.9 [place] [address] [facility] [id number] [place] [address] [id number] Nov, Sciatic leg pain M54.[address] [id number] [id number] Oct, [facility] [id number] [place] [address] [id number] Oct, Acute pain of right shoulder M25.511 [address] [place] [address] [id number] Oct, Chronic obstructive pulmonary disease, unspecified COPD type J44.9 [facility] [place] [address] [id number] [place] [id number] Oct, [facility] [place] [id number] [place] [address] [id number] Sep, Chronic obstructive pulmonary disease, unspecified COPD type J44.9 and Sciatic leg pain M54.30 [facility] [place] [address] [id number] [place] [address] [id number] Aug, Moderate episode of recurrent major depressive disorder F33.1 and Chronic obstructive pulmonary disease, unspecified COPD type J44.9 [facility] [address] [id number][place] [id number] Aug, Moderate episode of recurrent major depressive disorder F33.1 [facility] [place] [address] [id number] [place] [id number] Jul, Other depression F32.8 and Chronic obstructive pulmonary disease, unspecified COPD type J44.9 [facility] [place] [address] [id number] [place] [id number] Jul, Moderate episode of recurrent major depressive disorder F33.1 [facility] [address] [id number], [place] [id number] Jun, [facility] [place] [address] [id number] [place] [id number] Jun, Moderate episode of recurrent major depressive disorder F33.1 [facility] [place] [address] [id number] [place] [id number] Jun, Moderate episode of recurrent major depressive disorder F33.1 [facility] [place] [address] [id number] [place] [id number] Jun, [facility] [place] [address] [id number] [place] [id number] Jun, Sciatic leg pain M54.30 [facility] [place] [address] [id number] [place] [id number] Jun, [facility] [place] [address] [id number] [place] [id number] May, Screening for thyroid disorder Z13.29 and Screening for lipid disorders Z13.220 [facility] [place] [address] [id number] [place] [id number] May, Other depression F32.8 [facility] [place] [id number] [place] [address] [id number] Apr, Sciatic leg pain M54.30 [facility] [place] [address] [id number] [place] [id number] Apr, Screening for lipid disorders Z13.220 ; Screening for thyroid disorder Z13.29 and Chronic obstructive pulmonary disease, unspecified COPD type J44.9 [facility] [place] [address] [id number] [place] 1216[address]179 Apr, Screening for lipid disorders Z13.220 ; Screening for thyroid disorder Z13.29 and Chronic obstructive pulmonary disease, unspecified COPD type J44.9 [facility] [place] [address] [id number] [place] [id number] Apr, [facility] [place] [id number] [place] [address] [id number] Apr, Chronic obstructive pulmonary disease, unspecified COPD type J44.[address] [facility] [address] [id number] [place] [address] March [facility] [place] [id number] [place] [address] [id number] March, Sciatic leg pain M54.30 and Other depression F32.8 [facility] [place] [address] [id number] [place] [id number] March, [facility] [place] [place] [address] [id number] [place] 670873096 Jan, Other depression F32.8 and Sciatic leg pain M54.30 [facility] [place] [address] [id number] [place] [id number] Jan, Sciatic leg pain M54.30 [facility] [place] [id number] [place] 024222072 Dec, Other depression F32.8 [facility] [place] [address] [id number] [place] 567831161 Dec, Chronic obstructive pulmonary disease, unspecified COPD type J44.9 [facility] [place] [id number] [place] [id number] Nov, [facility] [place] [address] [id number] [place] [address] [id number] Oct, Other depression F32.8 and Chronic obstructive pulmonary disease, unspecified COPD type J44.9 [facility] [place] [id number] [place] [address] [id number] Aug, [facility] [place] [id number] [place] [address] [id number] Aug, Other depression F32.8 ; Arthralgia of right temporomandibular joint M26.62 and Encounter for immunization Z23 [facility] [place] [address] [address] [id number] [place] [address] [id number] Aug, Encounter for well woman exam Z01.419 [facility] [place] [address] [address] [place] [id number] [place] [address] [id number] Jul, Other depression F32.8 and Arthralgia of right temporomandibular joint M26.62 [facility] [place] [id number] [place] [id number] Jun, [facility] [address] [id number] [place] [address] Jun [facility] [place] [id number] [place] [address] [id number] Jun, [facility] [place] [id number] [place] [address] [id number] Jun, Other depression F32.8 and Urinary tract infection without hematuria, site unspecified N39.0 [facility] [place] [id number] [place] [id number] Apr, [facility] [place] [id number] [place] [address] [id number] Apr, Dysuria R30.0 [facility] [address]00565100[place] [address]- [address] March, [facility] [place] [id number] [place] [address] [id number] March, Urinary tract infection, site unspecified N39.0 [facility] [place] [address] [id number] [place] [id number] March, Urinary tract infection, site unspecified N39.0 [facility] [place] [address] [id number] [place] [id number] Feb, [facility] [place] [id number] [place] [address] [id number] Feb, Headache R51 and Ear pain H92.09 [facility] [place] [id number] [place] [address] [id number] Jan, Osteoarthritis of both knees, unspecified osteoarthritis type M17.0 and Hip bursitis, left M70.72 [facility] [place] [address] [id number] [place] [address] [id number] Jan, [facility] [place] [id number] [place] [address] [id number] Dec, Unspecified arthropathy, site unspecified 716.90 and COPD (chronic obstructive pulmonary disease) 496 [facility] [place] [address] [id number] [place] [id number] Dec, [facility] [place] [id number] [place] [address] [id number] Nov, [facility] [place] [id number] [place] [address] [id number] Oct, [facility] [place] [id number] [place] [address] [id number] Sep, [facility] [place] [address] [id number] [place] [address] [id number] Sep, [facility] [place] [address] [facility] [id number] [place] [id number] Aug, [facility] [place] [address] [facility] [id number] [place] [id number] Aug, [facility] [place] [address] [facility] [id number] [place] [id number] Aug, Urinary tract infection N39.0 and Shoulder strain, right, initial encounter S46.911A [facility] [place] [id number] [place] [address] [id number] Aug, Encounter for immunization Z23 and Screening breast examination Z12.39 [facility] [address] [place] [id number] [place] 188430714 Aug, [facility] [id number] [id number] Aug, [facility] [id number] [place] [id number] Jul, [facility] [id number] [place] [address] [id number] Jun, [facility] [id number] [place] [id number] Jun, Allergic rhinitis, cause unspecified 477.9 and Cough 786.2 [facility] [id number] [place] [address] [id number] May, [facility] [id number] [place] [id number] May, [facility] [address] [address] [id number] [place] [address] [id number] May, Visit for suture removal V58.32 [facility] [id number] [place] [id number] May, Dog bite 879.8 [facility] [id number] [place] [address] [id number] Apr, Rib pain on right side 786.50 [facility] [id number] [place] [id number] Apr, [facility] [address] [address] [id number] [place] [address] [id number] Apr, Allergic rhinitis, cause unspecified 477.9 and Cough 786.2 [facility] [id number] [place] [id number] March, [facility] [id number] [place] [address] [id number] March, [facility] [id number] [place] [id number] March, [facility] [address] [place] [address] [id number] [place] [address] [id number] March, [facility] [place] [address] [place] [address] [id number] [place] [id number] March, Cough 786.2 and Shortness of breath 786.05 [facility] [place] [id number] [place] [id number] March, [facility] [place] [id number] [place] [id number] March, Cough 786.2 ; COPD (chronic obstructive pulmonary disease) 496 and Allergic rhinitis, cause unspecified 477.9 [facility] [place] [id number] [place] [id number] Feb, Allergic rhinitis, cause unspecified 477.9 ; Cough 786.2 and COPD ( chronic obstructive pulmonary disease) 496 [facility] [address]00565100[place], [place] [address]- [address] Feb, [facility] [address] [place] [id number] [place] [address]- 9326 Feb, [facility] [address] [place] [address] 70371- 2544 Jan, [facility] [address] [id number] [place] [address] 77[address]- 1646 Jan, [facility] [address]00565100[place], [place] [address]- 48[address] Jan, [facility] [id number] [place] [id number] Jan, [facility] [address]00565100[place], [place] [address]- 2546 Jan, [facility] [id number] [place] [id number] Dec, [facility] [address]00565100[place], [place] [address]- 2546 Dec, [facility] [address] [place] [address] [id number] [place] [id number] Dec, [facility] [address] [place] [id number], [place] [address]- 7[address] Dec, [facility] [address] [id number] [place] [id number] Dec, [facility] [place] [facility] [address] [facility] [id number], [place] [address]- 5[address] Dec, [facility] [place] [facility] [address] [facility] [id number] [place] [address]- 2546 Dec, [facility] [place] [address] [facility] [id number] [place] [id number] Nov, [facility] [place] [facility] [address] [facility] [id number] [place] [address]- 6276 Nov, [facility] [place] [facility] [address] [facility] [id number] [place] [address]- 3675 Nov, [facility] [place] [address] [facility] [id number] [place] [id number] Nov, [facility] [place] [facility] [address] [facility] [id number], [place] [address]- 4789 Nov, [facility] [address] [facility] [id number] [place] [id number] Oct, [facility] [place] [facility] [address] [facility] [id number][place] [address]- 5316 Oct, [facility] [address] [facility] [id number] [place] [id number] Sep, [facility] [place] [facility] [address] [facility] [id number][place] [address]- 2546 Sep, [facility] [address] [facility] [id number] [place] [id number] Sep, [facility] [place] [facility] [address] [facility] [id number] [place] [address] 2546 Sep, [facility] [address] [facility] [id number] [place] [id number] Aug, [facility] [place] [facility] [address] [facility] [id number], [place] [address]- 2[address] Aug, [facility] [address] [id number] [place] [id number] Aug, [facility] [place] [facility] [address] [facility] [id number], [place] [address]- 0082 Aug, [facility] [place] [facility] [address] [facility] [id number], [place] 093097- 4380 Jul, [facility] [address] [id number] [place] [id number] Jul, [facility] [address] [id number] [place] [id number] Jul, [facility] [address] [facility] [id number] [place] [id number] Jul, [facility] [place] [facility] [address] [facility] [id number] [address]- 6916 Jul, [facility] [place] [facility] [address]00565100[place], [place] [address]- 9989 Jul, [facility] [place] [facility] [address] [facility] [id number], [place] [address]- 5952 Jul, [facility] [place] [facility] [address] [facility] [id number], [place] [address]- 5869 Jul, [facility] [address] [facility] [id number] [place] [id number] Jun, [facility] [place] [facility] [address] [facility] [id number], [place] [address]- 4823 Jun, [facility] [place] [facility] [address] [facility] [id number], [place] [address]- 2675 Jun, [facility] [address] [facility] [id number] [place] [id number] Jun, [facility] [place] [facility] [address] [facility] [id number], [place] [address]- 9691 Jun, [facility] [address] [facility] [id number] [place] [id number] Jun, [facility] [place] [facility] [address] [facility] [id number][place] [address]- 0840 Jun, [facility] [address] [id number] [place] [id number] Apr, [facility] [place] [facility] [address] [facility] [id number], [place] [address]- 2546 Apr, [facility] [address] [id number] [place] 168423500 Apr, [facility] [place] [facility] [address]00565100[place], [place] [address]- 3146 Apr, [facility] [address] [id number] [place] [id number] Apr, [facility] [place] [facility] [address]00565100[place], [place] [address]- 4796 Apr, [facility] [place] [facility] [address]00565100[place], [place] [address]- 8429 March, [facility] [place] [facility] [address]00565100[place], [place] [address]- 4824 March, [facility] [address] [id number] [place] [id number] March, [facility] [address] [facility] [id number] [place] [id number] Feb, [facility] [place] [facility] [address]00565100[place], [place] [address]- 4946 Feb, [facility] [address] [id number] [place] [id number] Jan, [facility] [place] [facility] [address] [facility] [id number], [place] [address] 2546 Jan, [facility] [address] [id number] [place] 075231587 Dec, [facility] [place] [facility] [address] [facility] [id number][place] [address]- 1676 Dec, [facility] [address] [facility] [id number] [place] 664106285 Dec, [facility] [place] [facility] [address]00565100[place], [place] [address]- 7116 Dec, [facility] [place] [facility] [address] [facility] [id number] [address]- 4657 Dec, [facility] [place] [facility] [address] [id number], [place] [address]- 7464 Dec, [facility] [id number] [place] [id number] Nov, [facility] [place] [facility] [address] [facility] [id number], [place] [address]- 7681 Nov, [facility] [address] [id number] [place] 998242825 Nov, [facility] [place] [facility] [address]00565100[place], [place] [address]- 7495 Nov, [facility] [id number] [place] [id number] Nov, [facility] [place] [facility] [address]00565100[place], [place] [address]- 0258 Nov, [facility] [id number] [place] [id number] Oct, [facility] [place] [facility] [address]00565100[place], [place] [address]- 7224 Oct, [facility] [place] [facility] [address]00565100[place], [place] [address]- 1741 Oct, [facility] [address] [id number] [place] [id number] Oct, [facility] [place] [facility] [address] [facility] [id number], [place] [address]- 5488 Sep, [facility] [place] [facility] [address] [facility] [id number], [place] [address]- 1357 Sep, [facility] [address] [id number] [place] [id number] Sep, [facility] [place] [facility] [address] [facility] [id number], [place] [address]- 3896 Sep, [facility] [address] [id number] [place] [id number] Aug, [facility] [address] [facility] [id number], [place] [address]- 8473 Aug, [facility] [address] [id number] [place] [id number] Jul, [facility] [address] [id number] [place] [id number] Jul, [facility] [address] [id number] [place] [id number] Jun, [facility] [address] [id number] [place] [id number] May, [facility] [address] [id number] [place] [id number] May, [facility] [address] [facility] [id number], [place] [address] May, [facility] [address] [id number] [place] [id number] Apr, [facility] [address] [id number] [place] [id number] Apr, [facility] [address] [id number] [place] [id number] March, [facility] [address] [id number] [place] [id number] Feb, [facility] [address] [id number] [place] [id number] Feb, [facility] [address] [id number] [place] [id number] Jan, [facility] [address] [id number] [place] [id number] Jan, [facility] [address] [id number] [place] [id number] Dec, [facility] [address] [id number] [place] [id number] Nov, [facility] [id number], [place] [address] Oct, [facility] [address] [facility] [id number], [place] [address] Oct, [facility] [address] [id number] [place] [id number] Oct, [facility] [address] [facility] [id number], [place] [address] Oct, [facility] [address] [facility] [id number], [place] [address] Oct, [facility] [address] [id number] [place] [id number] Oct, [facility] [address] [id number] [place] [id number] Sep, [facility] [address] [facility] [id number][place] [address] Sep, [facility] [address] [id number] [place] [id number] Sep, [facility] [address] [id number], [place] [address] Sep, [facility] [address] [id number] [place] [id number] Aug, [facility] [address] [facility] [id number], [place] [address] Aug, [facility] [address] [id number] [place] [id number] Aug, [facility] [address] [id number] [place] [id number] Jun, [facility] [address] [id number] [place] [id number] Jun, [facility] [address] [facility] [id number], [place] [address] May, [facility] [address] [id number] [place] [id number] Apr, [facility] [address] [id number] [place] [id number] March, [facility] [address] [id number] [place] [id number] Feb, [facility] [address] [facility] [id number] [place] [id number] Jan, [facility] [address] [id number] [id number] Nov, [facility] [id number] [address] Sep, [facility] [id number] [address] Sep, [facility] [id number] [address] Aug, [facility] [id number] [address] Apr, [facility] [id number] [address] March, IMMUNIZATIONS No Known Immunizations SOCIAL HISTORY Never Assessed REASON FOR VISIT med change PLAN OF CARE VITAL SIGNS MEDICATIONS Medication Instructions Dosage Frequency Start Date End Date Duration Status Accolate 20 mg Orally Twice a day 1 tablet 12h Apr, Active RESULTS No Results PROCEDURES No Known [...]
--- OUTSIDE RECORDS SUMMARY | 2018-11-11 16:54 | XMS REPORT ---
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 Role Phone TARIQ TATE Unavailable PROBLEMS Type Condition ICD9-CM Code BNQ38-SD Code Onset Dates Condition Status SNOMED Code Problem Hip bursitis, left M70.72 Active 75286392 Problem Moderate episode of recurrent major depressive disorder F33.1 Active 744853262 Problem Sciatic leg pain M54.30 Active 96966329 Problem Other depression F32.8 Active 67483465 Problem Osteoarthritis of both knees, unspecified osteoarthritis type M17.0 Active 799311239 Problem Chronic obstructive pulmonary disease, unspecified COPD type J44.9 Active 64320878 Problem Arthralgia of right temporomandibular joint M26.62 Active 36720317 ALLERGIES Substance Reaction Event Type Date Status Sulfamethoxazole nausea and vomiting Drug Allergy May, Active ENCOUNTERS Encounter Location Date Diagnosis [id number] [place] [address] [id number] Dec, Moderate episode of recurrent major depressive disorder F33.1 ; Sciatic leg pain M54.30 ; Chronic obstructive pulmonary disease, unspecified COPD type J44.9 and Screening for thyroid disorder Z13.[address] [id number] [place] [id number] Dec, Chronic obstructive pulmonary disease, unspecified COPD type J44.[address] [id number] [place] [id number] Nov, Sciatic leg pain M54.30 [place] [address] [facility] [address] [id number] [id number] Oct, [address] [id number] [place] 350294404 Oct, Acute pain of right shoulder M25.511 [address]00565100[place] 799260283 Oct, Chronic obstructive pulmonary disease, unspecified COPD type J44.9 [facility] [place] [address] [id number] [place], [place] [id number] Oct, [facility] [place] [address] [id number] [place] [address] [id number] Sep, Chronic obstructive pulmonary disease, unspecified COPD type J44.9 and Sciatic leg pain M54.30 [facility] [place] [address] [id number] [place], [place] 311184746 Aug, Moderate episode of recurrent major depressive disorder F33.1 and Chronic obstructive pulmonary disease, unspecified COPD type J44.9 [facility] [address] [id number], [place] [id number] Aug, Moderate episode of recurrent major depressive disorder F33.1 [facility] [place] [address] [id number] [place], [place] [id number] Jul, Other depression F32.8 and Chronic obstructive pulmonary disease, unspecified COPD type J44.9 [facility] [place] [address] [id number] [place], [place] 411064126 Jul, Moderate episode of recurrent major depressive disorder F33.1 [facility] [address] [id number], [place] [id number] Jun, [facility] [place] [address] [id number] [place], [place] [id number] Jun, Moderate episode of recurrent major depressive disorder F33.1 [facility] [place] [address] [id number] [place], [place] 595926486 Jun, Moderate episode of recurrent major depressive disorder F33.1 [facility] [place] [address] [id number] [place], [place] [id number] Jun, [facility] [place] [address] [id number] [place], [place] 135567474 Jun, Sciatic leg pain M54.30 [facility] [place] [address] [id number] [place], [place] [id number] Jun, [facility] [place] [address] [id number] [place], [place] [id number] May, Screening for thyroid disorder Z13.29 and Screening for lipid disorders Z13.220 [facility] [place] [address] [id number] [place] [address] [id number] May, Other depression F32.8 [facility] [place] [address] [id number] [place] [address] [id number] Apr, Sciatic leg pain M54.30 [facility] [place] [address] [id number] [place] [address] [id number] Apr, Screening for lipid disorders Z13.220 ; Screening for thyroid disorder Z13.29 and Chronic obstructive pulmonary disease, unspecified COPD type J44.9 [facility] [place] [id number] [place] [address] [id number] Apr, Screening for lipid disorders Z13.220 ; Screening for thyroid disorder Z13.29 and Chronic obstructive pulmonary disease, unspecified COPD type J44.9 [facility] [place] [id number] [place], [place] [id number] Apr, [facility] [place] [id number] [place] [address] [id number] Apr, Chronic obstructive pulmonary disease, unspecified COPD type J44.9 [facility] [address] [id number] [place] [address] March [facility] [place] [id number] [place] [address] [id number] March, Sciatic leg pain M54.30 and Other depression F32.8 [facility] [place] [address] [id number] [place], [place] [id number] March, [facility] [place] [address] [facility] [id number] [place], [place] [id number] Jan, Other depression F32.8 and Sciatic leg pain M54.30 [facility] [place] [id number] [place] [address] [id number] Jan, Sciatic leg pain M54.30 [facility] [place] [id number] [place], [place] [id number] Dec, Other depression F32.8 [facility] [place] [id number] [place] [address] [id number] Dec, Chronic obstructive pulmonary disease, unspecified COPD type J44.9 [facility] [place] [id number] [place] [address] [id number] Nov, [facility] [place] [id number] [place] [address] [id number] Oct, Other depression F32.8 and Chronic obstructive pulmonary disease, unspecified COPD type J44.9 [facility] [place] [id number] [place] [address] [id number] Aug, [facility] [place] [id number] [place] [address] [id number] Aug, Other depression F32.8 ; Arthralgia of right temporomandibular joint M26.62 and Encounter for immunization Z23 [facility] [place] [id number] [place] [address] [id number] Aug, Encounter for well woman exam Z01.419 [facility] [place] [id number] [place] [address] [id number] Jul, Other depression F32.8 and Arthralgia of right temporomandibular joint M26.62 [facility] [place] [id number] [place], [place] [id number] Jun, [facility] [address] [id number] [place] [address] Jun [facility] [place] [id number] [place] [address] [id number] Jun, [facility] [place] [id number] [place] [address] [id number] Jun, Other depression F32.8 and Urinary tract infection without hematuria, site unspecified N39.0 [facility] [place] [id number] [place] [address] [id number] Apr, [facility] [place] [id number] [place] [address] [id number] Apr, Dysuria R30.0 [facility] [address]00565100[place], [place] [address] March, [facility] [place] [id number] [place] [address] [place] [id number] March, Urinary tract infection, site unspecified N39.0 [facility] [place] [address] [id number] [place], [place] 540702377 March, Urinary tract infection, site unspecified N39.0 [facility] [place] [address] [id number] [place], [place] [id number] Feb, [facility] [place] [address] [id number] [place] [address] [id number] Feb, Headache R51 and Ear pain H92.09 [facility] [place] [address] [id number] [place], [place] [id number] Jan, Osteoarthritis of both knees, unspecified osteoarthritis type M17.0 and Hip bursitis, left M70.72 [facility] [place] [address] [id number] [place], [place] [id number] Jan, [facility] [place] [address] [id number] [place], [place] [id number] Dec, Unspecified arthropathy, site unspecified 716.90 and COPD (chronic obstructive pulmonary disease) 496 [facility] [place] [address] [id number] [place], [place] [id number] Dec, [facility] [place] [address] [id number] [place], [place] [id number] Nov, [facility] [place] [address] [id number] [place], [place] [id number] Oct, [facility] [address] [id number] [place], [place] [id number] Sep, [facility] [place] [address] [id number] [place], [place] [id number] Sep, [facility] [place] [address] [id number] [place], [place] [id number] Aug, [facility] [place] [address] [facility] [address] [id number] [facility] [id number] Aug, [facility] [place] [address] [id number] [place], [place] [phone] Aug, Urinary tract infection N39.0 and Shoulder strain, right, initial encounter S46.911A [facility] [address] [id number] [place], [place] [id number] 14 Aug, 2015 Encounter for immunization Z23 and Screening breast examination Z12.39 [facility] [id number] [place], [place] 186450985 Aug, [facility] [id number], [place] [id number] Aug, [facility] [id number] [place], [place] [id number] Jul, [facility] [id number] [place] [address] [id number] Jun, [facility] [id number] [place] [address] [id number] Jun, Allergic rhinitis, cause unspecified 477.9 and Cough 786.2 [facility] [id number] [place], [place] [id number] May, [facility] [id number] [place], [place] [id number] May, [facility] [id number] [place] [address] [id number] May, Visit for suture removal V58.32 [facility] [id number] [place] [address] [id number] May, Dog bite 879.8 [facility] [id number] [place], [place] [id number] Apr, Rib pain on right side 786.50 [facility] [id number] [place], [place] [id number] Apr, [facility] [id number] [place], [place] [id number] Apr, Allergic rhinitis, cause unspecified 477.9 and Cough 786.2 [facility] [id number] [place], [place] [id number] March, [facility] [id number] [place], [place] [id number] March, [facility] [id number] [place], [place] [id number] March, [facility] [id number] [place], [place] [id number] March, [facility] [place] [id number] [place], [place] [id number] March, Cough 786.2 and Shortness of breath 786.05 [facility] [place] [id number] [place], [place] [id number] March, [facility] [place] [id number] [place] [address] [id number] March, Cough 786.2 ; COPD (chronic obstructive pulmonary disease) 496 and Allergic rhinitis, cause unspecified 477.9 [facility] [place] [id number] [place] [address] [id number] Feb, Allergic rhinitis, cause unspecified 477.9 ; Cough 786.2 and COPD ( chronic obstructive pulmonary disease) [address] [facility] [id number] [place] [address]- [address]46 Feb, [facility] [id number] [place] [address] 68575- 2546 Feb, [facility] [id number] [place] [address] 15297- 2546 Jan, [facility] [id number] [place] [address] 62548- 2546 Jan, [facility] [address] [id number], [place] [address]- [address] Jan, [facility] [place] [id number] [place], [place] [id number] Jan, [facility] [address]00565100[place], [place] [address]- 2546 Jan, [facility] [place] [id number] [place], [place] [id number] Dec, [facility] [address]00565100[place], [place] [address]- [address]46 Dec, [facility] [place] [id number] [place], [place] [id number] Dec, [facility] [place] [facility] [address] [id number], [place] [address]- [address] Dec, [facility] [address] [facility] [id number] [place] [id number] Dec, [facility] [place] [facility] [address] [facility] [id number] [place] [address]- [address] Dec, [facility] [place] [facility] [address] [facility] [id number] [place] [address]- 2546 Dec, [facility] [address] [id number] [place], [place] [id number] Nov, [facility] [place] [facility] [address] [facility] [id number] [place] [address]- 49[address] Nov, [facility] [place] [facility] [address]00565100[place], [place] [address]- [address] Nov, [facility] [id number] [place], [place] [id number] Nov, [facility] [place] [facility] [address] [facility] [id number], [place] [address]- 0627 Nov, [facility] [address] [facility] [id number] [place], [place] [id number] Oct, [facility] [place] [facility] [address] [id number], [place] [address]- 84[address] Oct, [facility] [address] [id number] [place], [place] [id number] Sep, [facility] [place] [facility] [address] [facility] [id number][place] [address]- 2546 Sep, [facility] [address] [id number] [place], [place] [id number] Sep, [facility] [place] [facility] [address] [facility] [id number] [address]- 7566 Sep, [facility] [address] [facility] [id number] [place], [place] [id number] Aug, [facility] [place] [facility] [address] [facility] [id number], [place] [address]- 0[address] Aug, [facility] [address] [id number] [place] [id number] Aug, [facility] [place] [facility] [address] [facility] [id number] [address]- 1196 Aug, [facility] [place] [facility] [address] [id number], [place] 053210- 1166 Jul, [facility] [address] [id number] [place] [id number] Jul, [facility] [address] [id number] [place] [id number] Jul, [facility] [address] [id number] [place] [id number] Jul, [facility] [place] [facility] [address] [facility] [id number], [place] [address]- 5[address] Jul, [facility] [place] [facility] [address]00565100[place], [place] [address]- 7127 Jul, [facility] [place] [facility] [address] [facility] [id number], [place] [address]- 4458 Jul, [facility] [place] [facility] [address] [id number], [place] [address]- 1177 Jul, [facility] [address] [facility] [id number] [place], [place] 198022715 Jun, [facility] [place] [facility] [address] [facility] [id number] [address]- 3294 Jun, [facility] [place] [facility] [address] [facility] [id number], [place] [address]- 5714 Jun, [facility] [address] [id number] [place] [id number] Jun, [facility] [place] [facility] [address] [facility] [id number] [address]- 2584 Jun, [facility] [address] [id number] [place], [place] 910010059 Jun, [facility] [place] [facility] [address] [facility] [id number], [place] [address]- 0059 Jun, [facility] [address] [facility] [id number] [place], [place] [id number] Apr, [facility] [place] [facility] [address] [facility] [id number], [place] [address]- 7519 Apr, [facility] [address] [facility] [id number] [place], [place] [id number] Apr, [facility] [place] [facility] [address] [facility] [id number] [address]- 5762 Apr, [facility] [address] [facility] [id number] [place], [place] [id number] Apr, [facility] [place] [facility] [address] [facility] [id number], [place] [address]- 6973 Apr, [facility] [place] [facility] [address]00565100[place], [place] [address]- 0477 March, [facility] [place] [facility] [address] [facility] [id number] [address]- 5533 March, [facility] [address] [facility] [id number] [place], [place] [id number] March, [facility] [address] [facility] [id number] [place], [place] [id number] Feb, [facility] [place] [facility] [address] [facility] [id number], [place] [address]- 0075 Feb, [facility] [address] [facility] [id number] [place], [place] 785911050 Jan, [facility] [place] [facility] [address] [facility] [id number], [place] [address]- 4487 Jan, [facility] [address] [facility] [id number] [place], [place] 126983245 Dec, [facility] [place] [facility] [address] [facility] [id number] [place] [address]- 5326 Dec, [facility] [address] [facility] [id number] [place], [place] [id number] Dec, [facility] [place] [facility] [address] [id number], [place] [address]- 8530 Dec, [facility] [place] [facility] [address] [id number] [place] [address]- 1411 Dec, [facility] [address] [facility] [id number], [place] [address]- 8139 Dec, [facility] [address] [facility] [id number] [place], [place] [id number] Nov, [facility] [address] [id number], [place] [address]- 4050 Nov, [facility] [address] [facility] [id number] [place], [place] [id number] Nov, [facility] [address] [facility] [id number], [place] [address]- 7356 Nov, [facility] [address] [id number] [place] 876327552 Nov, [facility] [address] [facility] [id number], [place] [address]- 9646 Nov, [facility] [address] [facility] [id number] [place], [place] [id number] Oct, [facility] [address] [facility] [id number] [address]- 4226 Oct, [facility] [place] [facility] [address] [facility] [id number], [place] [address]- 2918 Oct, [facility] [address] [facility] [id number] [place], [place] [id number] Oct, [facility] [place] [facility] [address] [id number], [place] [address]- 1859 Sep, [facility] [place] [facility] [address] [facility] [id number] [address]- 9746 Sep, [facility] [address] [facility] [id number] [id number] Sep, [facility] [address] [facility] [id number], [place] [address] Sep, [facility] [address] [id number] [place] [id number] Aug, [facility] [address] [facility] [id number], [place] [address] Aug, [facility] [address] [id number] [place] [id number] Jul, [facility] [address] [id number] [place] [id number] Jul, [facility] [address] [id number] [place] [id number] Jun, [facility] [address] [id number] [place] [id number] May, [facility] [address] [id number] [place] [id number] May, [facility] [id number], [place] [address] May, [facility] [address] [id number] [place] [id number] Apr, [facility] [address] [id number] [place] [id number] Apr, [facility] [address] [id number] [place] [id number] March, [facility] [address] [id number] [place] [id number] Feb, [facility] [address] [id number] [place] [id number] Feb, [facility] [address] [id number] [place] [id number] Jan, [facility] [address] [id number] [place] [id number] Jan, [facility] [address] [id number] [place] [id number] Dec, [facility] [address] [id number] [place] [id number] Nov, [facility] [address] [facility] [id number], [place] [address] Oct, [facility] [address] [id number], [place] [address] Oct, [facility] [address] [id number] [id number] Oct, [facility] [address] [facility] [id number], [place] [address] Oct, [facility] [address] [facility] [id number], [place] [address] Oct, [facility] [address] [id number] [place] [id number] Oct, [facility] [id number] [place] [id number] Sep, [facility] [id number], [place] [address] Sep, [facility] [address] [id number] [place] [id number] Sep, [facility] [address] [facility] [id number], [place] [address] Sep, [facility] [address] [id number] [place] [id number] Aug, [facility] [address] [facility] [id number], [place] [address] Aug, [facility] [address] [id number] [id number] Aug, [facility] [address] [id number] [place] [id number] Jun, [facility] [address] [id number] [place] [id number] Jun, [facility] [address] [facility] [id number], [place] [address] May, [facility] [address] [id number] [id number] Apr, [facility] [id number] [place] [id number] March, [facility] [address] [facility] [id number] [place] [id number] Feb, [facility] [address] [facility] [id number] [place] [id number] Jan, [facility] [address] [facility] [id number] [place] [id number] Nov, [facility] [id number] [address] Sep, [facility] [id number] [address] Sep, [facility] [id number] [place] [id number] Aug, [facility] [id number] [address] Apr, [facility] [id number] [address] March, IMMUNIZATIONS No Known Immunizations SOCIAL HISTORY Never Assessed REASON FOR VISIT Depression follow up Feng [employer] PLAN OF CARE Activity Details Follow Up 3 Months Reason:depression VITAL SIGNS Height 62 in 2017-05-06 Weight 174.4 lbs 2017-05-06 Temperature 98.1 degrees Fahrenheit 2017-05-06 Heart Rate 78 bpm 2017-05-06 Respiratory Rate 18 2017-05-06 BMI 31.89 kg/m2 2017-05-06 Blood pressure systolic 122 mmHg 2017-05-06 Blood pressure diastolic 70 mmHg 2017-05-06 MEDICATIONS Medication Instructions Dosage Frequency Start Date End Date Duration Status Accolate 20 mg Orally Twice a day 1 tablet 12h Apr, Active Gabapentin 300 MG Orally 3 times a day 1 capsule 8h 0 days Active Advair Diskus 250 mcg-50 mcg Inhalation 2 times a day 1 puffs 12h Active Singulair 10 mg Orally Once a day 1 tablet 24h Active ProAir HFA 108 (90 Base) MCG/ACT Inhalation every 4 hrs as needed 2 puffs 0 days Active Omeprazole 20 MG Orally 2 times a day 2 capsules 12h Active EPINEPHrine 0.3 MG/0.3ML Injection PRN as directed Aug, Active Omeprazole 40 MG Orally 2 times a day 1 capsule 12h 0 days Active Fluoxetine 40 mg Orally Once a day 1 capsule in the morning 24h Jun, Active Singulair 10 mg Orally Once a day 1 tablet in the evening 24h Apr, Active Xolair 150 MG Active Seroquel 25 MG Orally at bedtime as needed .5-1 tablet May, Active Diclofenac Sodium 50 mg Orally Three times a day 1 tablet with food or milk 8h Jan, 0 days Active Parafon Forte DSC 500 mg Orally Three times a day PRN. Must last one month 1 tablet Active Albuterol 90 mcg/actuation by inhalation 4 times a day 2 puffs 6h Active Spiriva HandiHaler 18 MCG Inhalation Once a day 1 capsule 24h Active Flonase 50 MCG/ACT Nasally 2 times a day 2 spray in each nostril 12h Active RESULTS No Results PROCEDURES No [...]
--- OUTSIDE RECORDS SUMMARY | 2018-11-11 16:55 | XMS REPORT ---
Author Author RAFAT LONGORIA [facility] Address Unknown Phone Unavailable Care Team Providers Care Research Lab Assistant Name Role Phone RAFAT LONGORIA Unavailable Unavailable PROBLEMS Type Condition ICD9-CM Code ENT67-WZ Code Onset Dates Condition Status SNOMED Code Problem Hip bursitis, left M70.72 Active 99137051 Problem Moderate episode of recurrent major depressive disorder F33.1 Active 056340045 Problem Sciatic leg pain M54.30 Active 56101878 Problem Other depression F32.8 Active 78123930 Problem Osteoarthritis of both knees, unspecified osteoarthritis type M17.0 Active 293885498 Problem Chronic obstructive pulmonary disease, unspecified COPD type J44.9 Active 92129692 Problem Arthralgia of right temporomandibular joint M26.62 Active 89060062 ALLERGIES No Information ENCOUNTERS Encounter Location Date Diagnosis [facility]TT[facility] [employer] [address] [id number] [id number] Feb, [facility]ITALzweitgeistBUS [id number] [place] [address] [id number] 14 Dec, 2017 Moderate episode of recurrent major depressive disorder F33.1 ; Sciatic leg pain M54.30 ; Chronic obstructive pulmonary disease, unspecified COPD type J44.9 and Screening for thyroid disorder Z13.29 [facility] [place] [address] [id number], [place] [id number] 05 Dec, 2017 Chronic obstructive pulmonary disease, unspecified COPD type J44.9 [facility] [address] [id number] [place] [address] [id number] Nov, Sciatic leg pain M54.30 [facility]ITALInteractive Advisory SoftwareTER [address] [id number] [place] [id number] Oct, [facility]ITALzweitgeistBUS [address] [id number] [place] [address] [id number] Oct, Acute pain of right shoulder M25.511 [facility] [place] [address] [id number] [place] [address] [id number] Oct, Chronic obstructive pulmonary disease, unspecified COPD type J44.9 [facility] [place] [address] [id number], [place] [id number] Oct, [facility] [place] [address] [id number] [place] [address] [id number] Sep, Chronic obstructive pulmonary disease, unspecified COPD type J44.9 and Sciatic leg pain M54.30 [facility] [place] [address] [id number] [place] [address] [id number] Aug, Moderate episode of recurrent major depressive disorder F33.1 and Chronic obstructive pulmonary disease, unspecified COPD type J44.9 [facility] [address] [id number] [place] [id number] Aug, Moderate episode of recurrent major depressive disorder F33.1 [facility] [place] [address] [id number], [place] [id number] Jul, Other depression F32.8 and Chronic obstructive pulmonary disease, unspecified COPD type J44.9 [facility] [place] [address] [id number][place] [id number] Jul, Moderate episode of recurrent major depressive disorder F33.1 [facility]ITALHARVEY [address] [id number] [place] [id number] Jun, [facility] [place] [address] [id number], [place] [id number] Jun, Moderate episode of recurrent major depressive disorder F33.1 [facility] [place] [address] [id number][place] [id number] Jun, Moderate episode of recurrent major depressive disorder F33.1 [facility] [place] [address] [id number], [place] [id number] Jun, [facility] [place] [address] [id number], [place] [id number] Jun, Sciatic leg pain M54.30 [facility] [place] [address] [id number], [place] [phone] Jun, [facility] [place] [address] [id number], [place] [id number] May, Screening for thyroid disorder Z13.29 and Screening for lipid disorders Z13.220 [facility] [place] [address] [id number], [place] [id number] May, Other depression F32.8 [facility] [place] [address] [id number] [place] [address] [id number] Apr, Sciatic leg pain M54.30 [facility] [place] [address] [id number] [place] [address] [id number] Apr, Screening for lipid disorders Z13.220 ; Screening for thyroid disorder Z13.29 and Chronic obstructive pulmonary disease, unspecified COPD type J44.9 [facility] [place] [id number] [place] [address] [id number] Apr, Screening for lipid disorders Z13.220 ; Screening for thyroid disorder Z13.29 and Chronic obstructive pulmonary disease, unspecified COPD type J44.9 [facility] [place] [id number] [place] [address] [id number] Apr, [facility] [place] [id number] [place] [address] [id number] Apr, Chronic obstructive pulmonary disease, unspecified COPD type J44.9 [facility] [address] [id number] [place] [address] March [facility] [place] [id number] [place] [address] [id number] March, Sciatic leg pain M54.30 and Other depression F32.8 [facility] [place] [address] [id number], [place] [id number] March, [facility] [place] [id number] [place] [address] [id number] Jan, Other depression F32.8 and Sciatic leg pain M54.30 [facility] [place] [id number] [place] [address] [id number] Jan, Sciatic leg pain M54.30 [facility] [place] [id number] [place] [address] [id number] Dec, Other depression F32.8 [facility] [place] [id number] [place] [address] [id number] Dec, Chronic obstructive pulmonary disease, unspecified COPD type J44.9 [facility] [place] [id number], [place] [id number] Nov, [facility] [place] [id number] [place] [address] [id number] Oct, Other depression F32.8 and Chronic obstructive pulmonary disease, unspecified COPD type J44.9 [facility] [place] [id number] [place] [address] [id number] Aug, [facility] [place] [id number] [place] [address] [id number] Aug, Other depression F32.8 ; Arthralgia of right temporomandibular joint M26.62 and Encounter for immunization Z23 [facility] [place] [id number] [place] [address] [id number] Aug, Encounter for well woman exam Z01.419 [facility] [place] [id number] [place] [address] [id number] Jul, Other depression F32.8 and Arthralgia of right temporomandibular joint M26.62 [facility] [place] [id number], [place] [id number] Jun, [facility] [place] [address] [place], [place] [address] [id number] [place] [address] Jun [facility] [place] [id number], [place] [id number] Jun, [facility] [place] [id number] [place] [address] [id number] Jun, Other depression F32.8 and Urinary tract infection without hematuria, site unspecified N39.0 [facility] [place] [id number], [place] [phone] Apr, [facility] [place] [id number] [place] [address] [id number] Apr, Dysuria R30.0 [facility] [address]00565100[place] [address] March, [facility] [place] [id number] [place] [address] [id number] March, Urinary tract infection, site unspecified N39.0 [facility] [place] [address] [id number], [place] [id number] March, Urinary tract infection, site unspecified N39.0 [facility] [place] [address] [id number], [place] [id number] Feb, [facility] [place] [address] [id number] [place] [address] [id number] Feb, Headache R51 and Ear pain H92.09 [facility] [place] [address] [id number] [place] [address] [id number] Jan, Osteoarthritis of both knees, unspecified osteoarthritis type M17.0 and Hip bursitis, left M70.72 [facility] [place] [address] [id number] [place] [address] [id number] Jan, [facility] [address] [id number] [place] [address] [id number] Dec, Unspecified arthropathy, site unspecified 716.90 and COPD (chronic obstructive pulmonary disease) 496 [facility] [place] [address] [id number], [place] [id number] Dec, [facility] [place] [address] [id number] [place] [address] [id number] Nov, [facility] [address] [id number] [place] [address] [id number] Oct, [facility] [address] [id number], [place] [id number] Sep, [facility] [address] [id number], [place] [phone] Sep, [facility] [place] [address] [id number], [place] [id number] Aug, [facility] [address] [id number] [place] [phone] Aug, [facility] [place] [address] [id number], [place] [id number] Aug, Urinary tract infection N39.0 and Shoulder strain, right, initial encounter S46.911A [facility] [place] [address] [id number], [place] [id number] Aug, Screening breast examination Z12.39 and Encounter for immunization Z23 [facility] [place] [address] [id number], [place] [id number] Aug, [facility] [id number] [place] [id number] Aug, [facility] [place] [address] [id number], [place] [id number] Jul, [facility] [place] [id number] [place] [address] [id number] Jun, [facility] [id number], [place] [id number] Jun, Allergic rhinitis, cause unspecified 477.9 and Cough 786.2 [facility] [id number], [place] [id number] May, [facility] [id number], [place] [id number] May, [facility] [place] [id number] [place] [address] [id number] May, Visit for suture removal V58.32 [facility] [id number], [place] [phone] May, Dog bite 879.8 [facility] [id number], [place] [phone] Apr, Rib pain on right side 786.50 [facility] [id number], [place] [id number] Apr, [facility] [id number], [place] [phone] Apr, Allergic rhinitis, cause unspecified 477.9 and Cough 786.2 [facility] [id number], [place] [id number] March, [facility] [place] [id number], [place] [id number] March, [facility] [address] [id number], [place] [id number] March, [facility] [address] [id number], [place] [id number] March, [facility] [id number], [place] [id number] March, Cough 786.2 and Shortness of breath 786.05 [facility] [place] [id number], [place] [id number] March, [facility] [id number], [place] [id number] March, Cough 786.2 ; COPD (chronic obstructive pulmonary disease) 496 and Allergic rhinitis, cause unspecified 477.9 [facility] [place] [id number] [place] [address] [id number] Feb, Allergic rhinitis, cause unspecified 477.9 ; Cough 786.2 and COPD ( chronic obstructive pulmonary disease) 496 [facility] [id number] [place] [address] Feb, [facility] [id number] [place] [address] 70241 2546 Feb, [facility] [id number] [place] [address] 75788- 2545 Jan, [facility] [id number] [place] [address] 51079- 2546 Jan, [facility] [id number] [place] [address] 65619- 3626 Jan, [facility] [id number], [place] [id number] Jan, [facility] [address]00565100[place], [place] [address] Jan, [facility] [id number], [place] [id number] Dec, [facility] [address] [id number], [place] [address]- [address] Dec, [facility] [address] [id number], [place] [phone] Dec, [facility] [place] [facility] [address] [id number], [place] [address] Dec, [facility] [address] [id number] [place] [id number] Dec, [facility] [place] [facility] [address] [facility] [place] [id number] [place] [address] 2546 Dec, [facility] [place] [facility] [address] [facility] [id number] [place] [address] Dec, [facility] [address] [id number], [place] [id number] Nov, [facility] [place] [facility] [address] [facility] [id number] [place] [address] Nov, [facility] [place] [facility] [address] [id number], [place] [address]- [address] Nov, [facility] [address] [facility] [id number], [place] [id number] Nov, [facility] [place] [facility] [address] [facility] [id number] [address]- [address] Nov, [facility] [address] [facility] [id number], [place] [id number] Oct, [facility] [place] [facility] [address] [facility] [id number] [address] Oct, [facility] [address] [id number], [place] [id number] Sep, [facility] [place] [facility] [address] [facility] [id number] [address]- [address] Sep, [facility] [address] [id number], [place] [id number] Sep, [facility] [place] [facility] [address] [facility] [id number][place] [address]- [address] Sep, [facility] [address] [facility] [id number], [place] [id number] Aug, [facility] [place] [facility] [address] [facility] [id number][place] [address]- [address]484 Aug, [facility] [address] [id number] [place] [id number] Aug, [facility] [place] [facility] [address] [id number], [place] [address]- [address] Aug, [facility] [place] [facility] [address] [id number] [address]- 1516 Jul, [facility] [address] [id number] [place] [id number] Jul, [facility] [address] [id number] [place] [id number] Jul, [facility] [address] [id number] [place] [id number] Jul, [facility] [place] [facility] [address] [facility] [id number] [address]- [address] Jul, [facility] [place] [facility] [address] [facility] [id number] [address]- 9914 Jul, [facility] [place] [facility] [address] [facility] [id number] [address]- 1536 Jul, [facility] [place] [facility] [address] [facility] [id number] [address]- 0[address] Jul, [facility] [address] [facility] [id number], [place] [id number] Jun, [facility] [place] [facility] [address] [facility] [id number], [place] [address]- 7966 Jun, [facility] [place] [facility] [address] [facility] [id number] [address]- 3846 Jun, [facility] [address] [id number], [place] [id number] Jun, [facility] [place] [facility] [address] [facility] [id number], [place] 26686785- 3706 Jun, [facility] [address] [id number] [place] [id number] Jun, [facility] [place] [facility] [address] [facility] [id number] [address]- 4776 Jun, [facility] [address] [facility] [id number] [place] [id number] Apr, [facility] [place] [facility] [address] [facility] [id number] [address]- 4[address] Apr, [facility] [address] [facility] [id number] [place] [id number] Apr, [facility] [place] [facility] [address] [facility] [id number] [address]- 2199 Apr, [facility] [address] [facility] [id number] [place] [id number] Apr, [facility] [place] [facility] [address]00565100[place], [place] [address]- 92[address] Apr, [facility] [place] [facility] [address]65[address] [place] [address]- [address] March, [facility] [place] [facility] [address]00565100[place], [place] [address]- 7966 March, [facility] [address] [facility] [id number] [place] [id number] March, [facility] [address] [facility] [id number], [place] [id number] Feb, [facility] [place] [facility] [address]00565100[place], [place] [address]- 30[address] Feb, [facility] [address] [facility] [id number], [place] [id number] Jan, [facility] [place] [facility] [address] [facility] [id number] [address] 2547 Jan, [facility] [address] [facility] [id number] [place] [id number] Dec, [facility] [place] [facility] [address] [facility] [id number] [place] [address]- 1056 Dec, [facility] [address] [facility] [id number], [place] [id number] Dec, [facility] [place] [facility] [address] [facility] [id number] [address]- 3626 Dec, [facility] [place] [facility] [address] [facility] [id number], [place] [address]- 6986 Dec, [facility] [place] [facility] [address] [facility] [id number] [address]- 6556 Dec, [facility] [address] [facility] [id number], [place] [id number] Nov, [facility] [place] [facility] [address] [facility] [id number] [address]- 4646 Nov, [facility] [address] [facility] [id number] [place] [address] [id number] Nov, [facility] [place] [facility] [address] [id number], [place] [address]- 8076 Nov, [facility] [id number], [place] [id number] Nov, [facility] [place] [facility] [address]00565100[place], [place] [address] Nov, [facility] [place] [address] [facility] [id number][place] [id number] Oct, [facility] [place] [facility] [address] [id number] [address] Oct, [facility] [place] [facility] [address] [facility] [place] [id number] [address] Oct, [facility] [place] [address] [facility] [id number][place] [id number] Oct, [facility] [place] [facility] [address] [facility] [place] [id number], [place] [address] Sep, [facility] [place] [facility] [address] [facility] [place] [id number] [address] Sep, [facility] [place] [address] [facility] [id number][place] [id number] Sep, [facility] [place] [facility] [address] [facility] [place] [id number] [address] Sep, [facility] [place] [address] [id number] [place] [id number] Aug, [facility] [address] [facility] [place] [id number] [address] Aug, [facility] [place] [address] [id number] [place] [id number] Jul, [facility] [place] [address] [id number] [place] [id number] Jul, [facility] [place] [address] [id number] [place] [id number] Jun, [facility] [place] [address] [id number] [place] [id number] May, [facility] [place] [address] [id number] [place] [id number] May, [facility] [id number], [place] [address] May, [facility] [place] [address] [id number] [place] [id number] Apr, [facility] [place] [address] [id number] [place] [id number] Apr, [facility] [place] [address] [id number] [place] [id number] March, [facility] [place] [address] [id number] [place] [id number] Feb, [facility] [place] [address] [id number] [place] [id number] Feb, [facility] [place] [address] [id number] [place] [id number] Jan, [facility] [place] [address] [id number] [place] [id number] Jan, [facility] [place] [address] [id number] [place] [id number] Dec, [facility] [place] [address] [id number] [place] [id number] Nov, [facility] [id number], [place] [address] Oct, [facility] [place] [facility] [address] [id number] [place] [address] Oct, [facility] [place] [address] [id number] [place] [id number] Oct, [facility] [place] [facility] [address] [facility] [place] [id number] [place] [address] Oct, [facility] [place] [facility] [address] [facility] [place] [id number], [place] [address] Oct, [facility] [place] [address] [id number] [place] [id number] Oct, [facility] [place] [address] [id number] [place] [id number] Sep, [facility] [place] [facility] [address]00565100[place], [place] [address] Sep, [facility] [place] [address] [id number][place] [id number] Sep, [facility] [address] [facility] [place] [id number], [place] [address] Sep, [facility] [place] [address] [id number] [place] [id number] Aug, [facility] [place] [facility] [address] [facility] [place] [id number] [address] Aug, [facility] [place] [address] [id number] [place] [id number] Aug, [facility] [place] [address] [id number][place] [id number] Jun, [facility] [place] [address] [id number] [place] [id number] Jun, [facility] [place] [facility] [address] [place] [facility] [id number] [address] May, [facility] [address] [id number] [place] [id number] Apr, [facility] [address] [id number] [place] [id number] March, [facility] [address] [facility] [id number] [place] [id number] Feb, [facility] [address] [facility] [id number] [id number] Jan, [facility] [address] [facility] [id number] [id number] Nov, [facility] [id number] [address] Sep, [facility] [id number] [address] Sep, [facility] [address] [id number] [address] Aug, [facility] [id number] [address] Apr, [facility] [id number] [address] March, IMMUNIZATIONS No Known Immunizations SOCIAL HISTORY Never Assessed REASON FOR VISIT F/U PLAN OF CARE Activity Details Follow Up Next available Reason: VITAL SIGNS MEDICATIONS Medication Instructions Dosage Frequency Start Date End Date Duration Status Fluoxetine 40 mg Orally Once a day 1 capsule in the morning 24h Active Seroquel 25 MG Orally at bedtime as needed .5-1 tablet Active Fluoxetine 20 mg Orally Once a day total 60 mg/d 1 capsule in the morning Active RESULTS No Results PROCEDURES Procedure Date Ordered Result Body Site Psychotherapy, patient &/family, 30 minutes, established patient Jun 28, 2017 INSTRUCTIONS MEDICATIONS ADMINISTERED No Known Medications [...]
--- OUTSIDE RECORDS SUMMARY | 2018-11-11 16:55 | XMS REPORT ---
Author Author TARIQ TATE Organization [facility] Address [address] [place] [address] Care Team Providers Care Analytical Data Scientist Name Role Phone TARIQ TATE Unavailable PROBLEMS Type Condition ICD9-CM Code AUN70-DT Code Onset Dates Condition Status SNOMED Code Problem Hip bursitis, left M70.72 Active 10677527 Problem Moderate episode of recurrent major depressive disorder F33.1 Active 483417862 Problem Sciatic leg pain M54.30 Active 75045833 Problem Other depression F32.8 Active 29212559 Problem Osteoarthritis of both knees, unspecified osteoarthritis type M17.0 Active 721530775 Problem Chronic obstructive pulmonary disease, unspecified COPD type J44.9 Active 02272178 Problem Arthralgia of right temporomandibular joint M26.62 Active 87237062 ALLERGIES No Information ENCOUNTERS Encounter Location Date Diagnosis [id number] [place] [address] [id number] 14 Dec, 2017 Moderate episode of recurrent major depressive disorder F33.1 ; Sciatic leg pain M54.30 ; Chronic obstructive pulmonary disease, unspecified COPD type J44.9 and Screening for thyroid disorder Z13.[id number] [place] [address] [id number] Dec, Chronic obstructive pulmonary disease, unspecified COPD type J44.9 [place] [address] [facility] [id number] [place] [address] [id number] Nov, Sciatic leg pain M54.[address] [id number] 490987[place] Oct, [facility] [id number] [place] [address] [id number] Oct, Acute pain of right shoulder M25.511 [address] [place] [address] [id number] Oct, Chronic obstructive pulmonary disease, unspecified COPD type J44.9 [facility] [place] [address] [id number], [place] [id number] Oct, [facility] [place] [id number] [place] [address] [id number] Sep, Chronic obstructive pulmonary disease, unspecified COPD type J44.9 and Sciatic leg pain M54.30 [facility] [place] [id number] [place] [address] [id number] Aug, Moderate episode of recurrent major depressive disorder F33.1 and Chronic obstructive pulmonary disease, unspecified COPD type J44.9 [facility] [address] [id number][place] [id number] Aug, Moderate episode of recurrent major depressive disorder F33.1 [facility] [place] [address] [id number], [place] [id number] Jul, Other depression F32.8 and Chronic obstructive pulmonary disease, unspecified COPD type J44.9 [facility] [place] [address] [id number], [place] [id number] Jul, Moderate episode of recurrent major depressive disorder F33.1 [facility] [address] [id number], [place] [id number] Jun, [facility] [place] [address] [id number], [place] 640383979 Jun, Moderate episode of recurrent major depressive disorder F33.1 [facility] [place] [address] [id number], [place] [id number] Jun, Moderate episode of recurrent major depressive disorder F33.1 [facility] [place] [address] [id number], [place] [id number] Jun, [facility] [place] [address] [id number], [place] [id number] Jun, Sciatic leg pain M54.30 [facility] [place] [address] [id number], [place] [id number] Jun, [facility] [place] [address] [id number], [place] [id number] May, Screening for thyroid disorder Z13.29 and Screening for lipid disorders Z13.220 [facility] [place] [address] [id number], [place] 036803791 May, Other depression F32.8 [facility] [place] [id number] [place] [address] [id number] Apr, Sciatic leg pain M54.30 [facility] [place] [address] [id number], [place] [id number] Apr, Screening for lipid disorders Z13.220 ; Screening for thyroid disorder Z13.29 and Chronic obstructive pulmonary disease, unspecified COPD type J44.9 [facility] [place] [address] [id number], [place] [id number] Apr, Screening for lipid disorders Z13.220 ; Screening for thyroid disorder Z13.29 and Chronic obstructive pulmonary disease, unspecified COPD type J44.9 [facility] [place] [address] [id number], [place] [id number] Apr, [facility] [place] [id number] [place] [address] [id number] Apr, Chronic obstructive pulmonary disease, unspecified COPD type J44.[address] [facility] [address] [id number] [place] [address] March [facility] [place] [id number] [place] [address] [id number] March, Sciatic leg pain M54.30 and Other depression F32.8 [facility] [place] [address] [id number], [place] [id number] March, [facility] [place] [address] [id number], [place] [id number] Jan, Other depression F32.8 and Sciatic leg pain M54.30 [facility] [place] [address] [id number], [place] [id number] Jan, Sciatic leg pain M54.30 [facility] [place] [id number], [place] [id number] Dec, Other depression F32.8 [facility] [place] [address] [id number], [place] [id number] Dec, Chronic obstructive pulmonary disease, unspecified COPD type J44.9 [facility] [place] [id number], [place] [id number] Nov, [facility] [place] [id number] [place] [address] [id number] Oct, Other depression F32.8 and Chronic obstructive pulmonary disease, unspecified COPD type J44.9 [facility] [place] [id number] [place] [address] [id number] Aug, [facility] [place] [id number] [place] [address] [id number] Aug, Other depression F32.8 ; Arthralgia of right temporomandibular joint M26.62 and Encounter for immunization Z23 [facility] [place] [address] [place] [id number] [place] [address] [id number] Aug, Encounter for well woman exam Z01.419 [facility] [place] [address] [place] [id number] [place] [address] [id number] Jul, Other depression F32.8 and Arthralgia of right temporomandibular joint M26.62 [facility] [place] [id number], [place] [id number] Jun, [facility] [address] [id number] [place] [address] Jun [facility] [place] [id number] [place] [address] [id number] Jun, [facility] [place] [id number] [place] [address] [id number] Jun, Other depression F32.8 and Urinary tract infection without hematuria, site unspecified N39.0 [facility] [place] [id number], [place] [id number] Apr, [facility] [place] [id number] [place] [address] [id number] Apr, Dysuria R30.0 [facility] [address]00565[address] [address]41- [address] March, [facility] [place] [id number] [place] [address] [id number] March, Urinary tract infection, site unspecified N39.0 [facility] [place] [address] [id number], [place] [id number] March, Urinary tract infection, site unspecified N39.0 [facility] [place] [address] [id number], [place] [id number] Feb, [facility] [place] [address] [id number] [place] [address] [id number] Feb, Headache R51 and Ear pain H92.09 [facility] [place] [address] [id number] [place] [address] [id number] Jan, Osteoarthritis of both knees, unspecified osteoarthritis type M17.0 and Hip bursitis, left M70.72 [facility] [place] [id number] [place] [address] [id number] Jan, [facility] [place] [id number] [place] [address] [id number] Dec, Unspecified arthropathy, site unspecified 716.90 and COPD (chronic obstructive pulmonary disease) 496 [facility] [place] [address] [id number], [place] [id number] Dec, [facility] [place] [id number] [place] [address] [id number] Nov, [facility] [place] [address] [id number] [place] [address] [id number] Oct, [facility] [place] [id number] [place] [address] [id number] Sep, [facility] [place] [address] [id number] [place] [address] [id number] Sep, [facility] [place] [address] [facility] [id number], [place] [id number] Aug, [facility] [place] [address] [facility] [id number] [place] [id number] Aug, [facility] [place] [address] [facility] [id number], [place] [id number] Aug, Urinary tract infection N39.0 and Shoulder strain, right, initial encounter S46.911A [facility] [place] [id number] [place] [address] [id number] Aug, Encounter for immunization Z23 and Screening breast examination Z12.39 [facility] [address] [place] [id number], [place] [id number] Aug, [facility] [id number], [place] [id number] Aug, [facility] [id number], [place] [id number] Jul, [facility] [id number] [place] [address] [id number] Jun, [facility] [id number], [place] [id number] Jun, Allergic rhinitis, cause unspecified 477.9 and Cough 786.2 [facility] [id number] [place] [address] [id number] May, [facility] [id number], [place] [id number] May, [facility] [address] [id number] [place] [address] [id number] May, Visit for suture removal V58.32 [facility] [id number], [place] [id number] May, Dog bite 879.8 [facility] [id number] [place] [address] [id number] Apr, Rib pain on right side 786.50 [facility] [id number], [place] [id number] Apr, [facility] [address] [place] [id number] [place] [address] [id number] Apr, Allergic rhinitis, cause unspecified 477.9 and Cough 786.2 [facility] [id number], [place] [id number] March, [facility] [id number] [place] [address] [id number] March, [facility] [id number], [place] [id number] March, [facility] [address] [place] [id number] [place] [address] [id number] March, [facility] [place] [address] [address] [id number], [place] [id number] March, Cough 786.2 and Shortness of breath 786.05 [facility] [place] [id number], [place] [id number] March, [facility] [place] [id number], [place] [id number] March, Cough 786.2 ; COPD (chronic obstructive pulmonary disease) 496 and Allergic rhinitis, cause unspecified 477.9 [facility] [place] [id number], [place] [id number] Feb, Allergic rhinitis, cause unspecified 477.9 ; Cough 786.2 and COPD ( chronic obstructive pulmonary disease) 496 [facility] [address]00565100[place], [place] [address]- [address]46 Feb, [facility] [address] [place] [id number] [place] [address] 46[address]- 6646 Feb, [facility] [id number] [place] [address] 08748- 2541 Jan, [facility] [address] [place] [place] [id number] [place] [address] 50501- 2966 Jan, [facility] [address]00565100[place], [place] [address]- 2899 Jan, [facility] [id number], [place] [id number] Jan, [facility] [address]00565100[place], [place] [address]- 2546 Jan, [facility] [id number], [place] [id number] Dec, [facility] [address]00565100[place], [place] [address]- 2546 Dec, [facility] [address] [place] [address] [id number], [place] [phone] Dec, [facility] [address] [place] [id number], [place] [address]- 8[address] Dec, [facility] [address] [id number] [place] [id number] Dec, [facility] [place] [facility] [address] [facility] [id number], [place] [address]- 0686 Dec, [facility] [place] [facility] [address] [facility] [id number] [address]- 2546 Dec, [facility] [address] [facility] [id number], [place] [id number] Nov, [facility] [place] [facility] [address] [facility] [id number] [address]- 2936 Nov, [facility] [place] [facility] [address] [facility] [id number] [place] [address]- 4438 Nov, [facility] [address] [facility] [id number], [place] [id number] Nov, [facility] [place] [facility] [address] [facility] [id number], [place] [address]- 1101 Nov, [facility] [address] [facility] [id number] [place] [id number] Oct, [facility] [place] [facility] [address] [facility] [id number], [place] [address]- 6176 Oct, [facility] [address] [facility] [id number] [place] [id number] Sep, [facility] [place] [facility] [address] [facility] [id number], [place] [address]- 2546 Sep, [facility] [address] [facility] [id number], [place] [id number] Sep, [facility] [place] [facility] [address] [facility] [id number] [place] [address] 2546 Sep, [facility] [address] [facility] [id number], [place] [id number] Aug, [facility] [place] [facility] [address] [facility] [id number], [place] [address]- 2863 Aug, [facility] [address] [id number], [place] [id number] Aug, [facility] [place] [facility] [address] [facility] [id number], [place] [address]- 2837 Aug, [facility] [place] [facility] [address] [facility] [id number], [place] 921058- 4569 Jul, [facility] [address] [id number] [place] [id number] Jul, [facility] [address] [id number] [place] [id number] Jul, [facility] [address] [facility] [id number] [place] [id number] Jul, [facility] [place] [facility] [address] [facility] [id number], [place] [address]- 9126 Jul, [facility] [place] [facility] [address]00565100[place], [place] [address]- 8451 Jul, [facility] [place] [facility] [address] [facility] [id number], [place] [address]- 5713 Jul, [facility] [place] [facility] [address] [facility] [id number], [place] [address]- 9651 Jul, [facility] [address] [facility] [id number], [place] [id number] Jun, [facility] [place] [facility] [address] [facility] [id number], [place] [address]- 3648 Jun, [facility] [place] [facility] [address] [facility] [id number], [place] [address]- 6867 Jun, [facility] [address] [facility] [id number], [place] [id number] Jun, [facility] [place] [facility] [address] [facility] [id number], [place] [address]- 8277 Jun, [facility] [address] [facility] [id number] [place] [id number] Jun, [facility] [place] [facility] [address] [facility] [id number], [place] [address]- 5805 Jun, [facility] [address] [id number], [place] [id number] Apr, [facility] [place] [facility] [address] [facility] [id number], [place] [address]- 2546 Apr, [facility] [address] [id number], [place] [id number] Apr, [facility] [place] [facility] [address]00565100[place], [place] [address]- 0116 Apr, [facility] [address] [id number], [place] [id number] Apr, [facility] [place] [facility] [address]00565100[place], [place] [address]- 6726 Apr, [facility] [place] [facility] [address]00565100[place], [place] [address]- 2606 March, [facility] [place] [facility] [address]00565100[place], [place] [address]- 1096 March, [facility] [address] [id number], [place] [id number] March, [facility] [address] [facility] [id number], [place] 128162036 Feb, [facility] [place] [facility] [address]00565100[place], [place] [address]- 2166 Feb, [facility] [address] [id number], [place] 380861269 Jan, [facility] [place] [facility] [address] [facility] [id number], [place] [address] 2546 Jan, [facility] [address] [id number], [place] 425008056 Dec, [facility] [place] [facility] [address] [facility] [id number], [place] [address]- 2176 Dec, [facility] [address] [facility] [id number], [place] 064948877 Dec, [facility] [place] [facility] [address]00565100[place], [place] [address]- 6686 Dec, [facility] [place] [facility] [address] [facility] [id number], [place] [address]- 0484 Dec, [facility] [place] [facility] [address] [place] [address] [id number], [place] [address]- 7270 Dec, [facility] [id number], [place] 844818649 Nov, [facility] [place] [facility] [address] [facility] [id number], [place] [address]- 0092 Nov, [facility] [address] [id number], [place] [id number] Nov, [facility] [place] [facility] [address]00565100[place], [place] [address]- 9870 Nov, [facility] [id number], [place] 102676729 Nov, [facility] [place] [facility] [address]00565100[place], [place] [address]- 6268 Nov, [facility] [id number], [place] 261328096 Oct, [facility] [place] [facility] [address]00565100[place], [place] [address]- 3618 Oct, [facility] [place] [facility] [address]00565100[place], [place] [address]- 9622 Oct, [facility] [address] [id number], [place] 298873205 Oct, [facility] [place] [facility] [address] [facility] [id number], [place] [address]- 6962 Sep, [facility] [place] [facility] [address] [facility] [id number], [place] [address]- 8184 Sep, [facility] [address] [id number], [place] [id number] Sep, [facility] [facility] [address] [facility] [id number], [place] [address]- 1569 Sep, [facility] [address] [id number] [place] [id number] Aug, [facility] [address] [facility] [id number], [place] [address]- 6337 Aug, [facility] [address] [id number] [place] [id number] Jul, [facility] [address] [id number] [place] 115678053 Jul, [facility] [address] [id number] [place] [id number] Jun, [facility] [address] [id number] [place] 018637812 May, [facility] [address] [id number] [place] 177562711 May, [facility] [address] [facility] [id number], [place] [address]- 2546 May, [facility] [address] [id number] [place] [id number] Apr, [facility] [address] [id number] [place] 183392713 Apr, [facility] [address] [id number] [place] 823571018 March, [facility] [address] [id number] [place] [id number] Feb, [facility] [address] [id number] [place] 036361325 Feb, [facility] [address] [id number] [place] 010947123 Jan, [facility] [address] [id number] [place] [id number] Jan, [facility] [address] [id number] [place] [id number] Dec, [facility] [address] [id number] [place] [id number] Nov, [facility] [address]00565100[place], [place] [address]- 2520 Oct, [facility] [place] [facility] [address] [facility] [id number], [place] [address] Oct, [facility] [address] [id number] [place] [id number] Oct, [facility] [address] [facility] [id number], [place] [address] Oct, [facility] [address] [facility] [id number], [place] [address] Oct, [facility] [address] [id number] [id number] Oct, [facility] [address] [id number] [place] [id number] Sep, [facility] [address] [facility] [id number], [place] [address] Sep, [facility] [address] [id number] [id number] Sep, [facility] [address] [id number] [address] Sep, [facility] [address] [id number][place] [id number] Aug, [facility] [address] [facility] [id number], [place] [address] Aug, [facility] [address] [id number][place] [id number] Aug, [facility] [address] [id number] [id number] Jun, [facility] [address] [id number] [id number] Jun, [facility] [address] [facility] [id number], [place] [address] May, [facility] [address] [id number][place] [id number] Apr, [facility] [address] [id number][place] [id number] March, [facility] [address] [id number] [place] [id number] Feb, [facility] [address] [facility] [id number][place] [id number] Jan, [facility] [address] [id number] [id number] Nov, [facility] [id number], [place] [address] Sep, [facility] [id number], [place] [address] Sep, [facility] [id number], [place] [address] Aug, [facility] [id number], [place] [address] Apr, [facility] [id number], [place] [address] March, IMMUNIZATIONS No Known Immunizations SOCIAL HISTORY Never Assessed REASON FOR VISIT Lab draw Kee CAN, Called in Accolate yesterday because she was told Singulair was very expensive. Accolate is $31.00 and Singulair is $6.00. DC'd Accolate and called in Singulair. rony Hernandez PLAN OF CARE VITAL SIGNS MEDICATIONS Medication Instructions Dosage Frequency Start Date End Date Duration Status Singulair 10 mg Orally Once a day 1 tablet in the evening 24h Apr, Active RESULTS Name Result Date Reference Range TSH 2017-04-30 TSH 6.980 0.450-4.500 CBC 2017-04-30 WBC 5.8 3.4-10.8 RBC 5.04 3.77-5.28 Hemoglobin 14.5 11.1-15.9 Hematocrit 44.6 34.0-46.6 MCV 89 79-97 MCH 28.8 26.6-33.0 MCHC 32.5 31.5-35.7 RDW 14.3 12.3-15.4 Platelets 275 150-379 Neutrophils 41 Lymphs 42 Monocytes 10 Eos 5 Basos 2 Immature Cells Neutrophils (Absolute) 2.4 1.4-7.0 Lymphs (Absolute) 2.4 0.7-3.1 Monocytes(Absolute) 0.6 0.1-0.9 Eos (Absolute) 0.3 0.0-0.4 Baso (Absolute) 0.1 0.0-0.2 Immature Granulocytes 0 Immature Grans (Abs) 0.0 0.0-0.1 [facility] Hematology Comments: LIPID PANEL 2017-04-30 Cholesterol, Total 231 100-199 Triglycerides 148 0-149 HDL Cholesterol 42 >39 VLDL Cholesterol Khadar 30 5-40 LDL Cholesterol Calc 159 0-99 Comment: CMP 2017-04-30 Glucose, Serum 87 65-99 BUN 11 8-27 Creatinine, Serum 0.83 0.57-1.00 eGFR If NonAfricn Am 77 >59 eGFR If Africn Am 89 >59 BUN/Creatinine Ratio 13 12-28 Sodium, Serum 142 134-144 Potassium, Serum 3.8 3.5-5.2 Chloride, Serum 105 96-106 Carbon Dioxide, Total 21 18-29 Calcium, Serum 9.2 8.7-10.3 Protein, Total, Serum 6.5 6.0-8.5 Albumin, Serum 4.2 3.6-4.8 Globulin, Total 2.3 1.5-4.5 A/G Ratio 1.8 1.2-2.2 Bilirubin, Total 0.6 0.0-1.2 Alkaline Phosphatase, S 71 39-117 AST (SGOT) 21 0-40 ALT (SGPT) 45 0-32 PROCEDURES Procedure Date Ordered Result Body Site COMPREHEN METABOLIC PANEL April 30, 2017 LIPID PANEL April 30, 2017 ASSAY THYROID STIM HORMONE April 30, 2017 COMPLETE CBC W/AUTO DIFF WBC April 30, 2017 VENIPUNCT, ROUTINE* April 30, 2017 INSTRUCTIONS MEDICATIONS ADMINISTERED No Known Medications [...]
--- OUTSIDE RECORDS SUMMARY | 2018-11-11 16:56 | XMS REPORT ---
Author Author TARIQ TATE [facility] Address [address] [place] [address] Care Team Providers Care Home Economics Expert Name Role Phone TARIQ TATE Unavailable PROBLEMS Type Condition ICD9-CM Code RBY09-HV Code Onset Dates Condition Status SNOMED Code Problem Hip bursitis, left M70.72 Active 06843866 Problem Moderate episode of recurrent major depressive disorder F33.1 Active 769601814 Problem Sciatic leg pain M54.30 Active 07354206 Problem Other depression F32.8 Active 20026002 Problem Osteoarthritis of both knees, unspecified osteoarthritis type M17.0 Active 570622615 Problem Chronic obstructive pulmonary disease, unspecified COPD type J44.9 Active 98533742 Problem Arthralgia of right temporomandibular joint M26.62 Active 14728559 ALLERGIES Substance Reaction Event Type Date Status Sulfamethoxazole nausea and vomiting Drug Allergy Jun, Active ENCOUNTERS Encounter Location Date [facility] [address] [id number] [id number] Feb, [place] [id number] [place] [address] [id number] Dec, Moderate episode of recurrent major depressive disorder F33.1 ; Sciatic leg pain M54.30 ; Chronic obstructive pulmonary disease, unspecified COPD type J44.9 and Screening for thyroid disorder Z13.[address] [id number], [place] [id number] Dec, Chronic obstructive pulmonary disease, unspecified COPD type J44.[id number] [place] [address] [id number] Nov, Sciatic leg pain M54.30 [facility] [address] [id number], [place] [id number] Oct, [place] [id number] [place] [address] [place] [id number] Oct, Acute pain of right shoulder M25.511 [facility] [place] [address] [id number], [place] 299548113 Oct, Chronic obstructive pulmonary disease, unspecified COPD type J44.9 [facility] [place] [address] [id number], [place] 890423256 Oct, [facility] [place] [id number] [place] [address] [id number] Sep, Chronic obstructive pulmonary disease, unspecified COPD type J44.9 and Sciatic leg pain M54.30 [facility] [place] [id number] [place] [address] [id number] Aug, Moderate episode of recurrent major depressive disorder F33.1 and Chronic obstructive pulmonary disease, unspecified COPD type J44.9 [facility] [address] [id number][place] [id number] Aug, Moderate episode of recurrent major depressive disorder F33.1 [facility] [place] [address] [id number], [place] [id number] Jul, Other depression F32.8 and Chronic obstructive pulmonary disease, unspecified COPD type J44.9 [facility] [place] [id number] [place] [address] [id number] Jul, Moderate episode of recurrent major depressive disorder F33.1 [facility] [address] [id number], [place] [id number] Jun, [facility] [place] [address] [id number], [place] 210467476 Jun, Moderate episode of recurrent major depressive disorder F33.1 [facility] [place] [address] [id number], [place] [id number] Jun, Moderate episode of recurrent major depressive disorder F33.1 [facility] [place] [address] [id number], [place] 439589316 Jun, [facility] [place] [address] [id number], [place] 261992523 Jun, Sciatic leg pain M54.30 [facility] [place] [id number] [place] [address] [id number] Jun, [facility] [place] [address] [id number], [place] 038423033 May, Screening for thyroid disorder Z13.29 and Screening for lipid disorders Z13.220 [facility] [place] [address] [id number], [place] [id number] May, Other depression F32.8 [facility] [place] [address] [id number], [place] 826181216 Apr, Sciatic leg pain M54.30 [facility] [place] [address] [id number], [place] [id number] Apr, Screening for lipid disorders Z13.220 ; Screening for thyroid disorder Z13.29 and Chronic obstructive pulmonary disease, unspecified COPD type J44.9 [facility] [place] [address] [id number], [place] 050520535 Apr, Screening for lipid disorders Z13.220 ; Screening for thyroid disorder Z13.29 and Chronic obstructive pulmonary disease, unspecified COPD type J44.9 [facility] [place] [address] [id number], [place] [id number] Apr, [facility] [place] [address] [facility] [id number], [place] [id number] Apr, Chronic obstructive pulmonary disease, unspecified COPD type J44.9 [facility] [address] [id number] [place] [address] March [facility] [place] [address] [id number], [place] [id number] March, Sciatic leg pain M54.30 and Other depression F32.8 [facility] [place] [address] [id number], [place] [id number] March, [facility] [place] [address] [id number], [place] 670288876 Jan, Other depression F32.8 and Sciatic leg pain M54.30 [facility] [place] [address] [id number], [place] [id number] Jan, Sciatic leg pain M54.30 [facility] [place] [id number], [place] 503455606 Dec, Other depression F32.8 [facility] [place] [id number], [place] 498457490 Dec, Chronic obstructive pulmonary disease, unspecified COPD type J44.9 [facility] [place] [id number], [place] [id number] Nov, [facility] [place] [id number] [place] [address] [id number] Oct, Other depression F32.8 and Chronic obstructive pulmonary disease, unspecified COPD type J44.9 [facility] [place] [id number], [place] [id number] Aug, [facility] [place] [address] [place] [id number] [place] [address] [id number] Aug, Other depression F32.8 ; Arthralgia of right temporomandibular joint M26.62 and Encounter for immunization Z23 [facility] [place] [address] [place] [id number] [place] [address] [id number] Aug, Encounter for well woman exam Z01.419 [facility] [place] [id number], [place] 545133335 Jul, Other depression F32.8 and Arthralgia of right temporomandibular joint M26.62 [facility] [place] [id number], [place] [id number] Jun, [facility] [place] [address] [id number] [place] [address] Jun [facility] [place] [id number], [place] [id number] Jun, [facility] [place] [id number], [place] 271872976 Jun, Other depression F32.8 and Urinary tract infection without hematuria, site unspecified N39.0 [facility] [place] [id number], [place] [id number] Apr, [facility] [place] [id number], [place] 988811434 Apr, Dysuria R30.0 [facility] [address]00565100[place], [place] [address] March, [facility] [place] [id number], [place] 226908923 March, Urinary tract infection, site unspecified N39.0 [facility] [place] [id number], [place] 641885319 March, Urinary tract infection, site unspecified N39.0 [facility] [place] [id number], [place] [id number] Feb, [facility] [place] [id number] [place] [address] [id number] Feb, Headache R51 and Ear pain H92.09 [facility] [place] [id number] [place] [address] [id number] Jan, Osteoarthritis of both knees, unspecified osteoarthritis type M17.0 and Hip bursitis, left M70.72 [facility] [place] [id number], [place] 628759558 Jan, [facility] [place] [id number], [place] 690785867 Dec, Unspecified arthropathy, site unspecified 716.90 and COPD (chronic obstructive pulmonary disease) 496 [facility] [place] [id number], [place] 545184971 Dec, [facility] [place] [id number], [place] 137046031 Nov, [facility] [place] [id number], [place] 016980774 Oct, [facility] [place] [id number], [place] 024693140 Sep, [facility] [place] [address] [facility] [id number], [place] 756302540 Sep, [facility] [place] [id number], [place] 901709752 Aug, [facility] [place] [address] [facility] [id number][facility] [id number] Aug, [facility] [place] [id number], [place] 013418102 Aug, Urinary tract infection N39.0 and Shoulder strain, right, initial encounter S46.911A [facility] [id number], [place] [id number] Aug, Encounter for immunization Z23 and Screening breast examination Z12.39 [facility] [address] [place] [id number], [place] 878990578 Aug, [facility] [place] [id number] [place] [address] [id number] Aug, [facility] [id number], [place] [id number] Jul, [place] [id number] [place] [address] [id number] Jun, [facility] [id number] [place] [address] [id number] Jun, Allergic rhinitis, cause unspecified 477.9 and Cough 786.2 [place] [id number] [place] [address] [id number] May, [facility] [id number] [place] [address] [id number] May, [place] [id number] [place] [address] [id number] May, Visit for suture removal V58.32 [facility] [id number] [place] [address] [id number] May, Dog bite 879.8 [place] [id number] [place] [address] [id number] Apr, Rib pain on right side 786.50 [facility] [address] [place] [id number], [place] [id number] Apr, [place] [id number] [place] [address] [id number] Apr, Allergic rhinitis, cause unspecified 477.9 and Cough 786.2 [facility] [id number], [place] [id number] March, [place] [id number] [place] [address] [id number] March, [facility] [place] [address] [place] [id number], [place] [id number] March, [facility] [place] [address] [place] [id number], [place] [id number] March, [facility] [place] [address] [place] [id number], [place] [id number] March, Cough 786.2 and Shortness of breath 786.05 [facility] [place] [id number], [place] [id number] March, [facility] [place] [id number], [place] [id number] March, Cough 786.2 ; COPD (chronic obstructive pulmonary disease) 496 and Allergic rhinitis, cause unspecified 477.9 [facility] [place] [id number], [place] 502485899 Feb, Allergic rhinitis, cause unspecified 477.9 ; Cough 786.2 and COPD ( chronic obstructive pulmonary disease) 496 [facility] [id number] [place] [address]- [address]46 Feb, [facility] [id number] [place] [address] 51535- 1696 Feb, [facility] [address] [place] [id number] [place] [address] 7[address] 2546 Jan, [facility] [address] [place] [id number], [place] [address]- 8046 Jan, [facility] [address] [place] [id number] [place] [address] 71698- 2546 Jan, [facility] [address] [place] [address] [id number], [place] [id number] Jan, [facility] [address] [place] [id number] [place] [address] 30314- 2546 Jan, [facility] [address] [place] [address] [id number], [place] [id number] Dec, [facility] [id number] [place] [address] 26994- 7376 Dec, [facility] [place] [address] [id number] [place] [id number] Dec, [facility] [place] [facility] [address] [id number] [place] [address]- [address] Dec, [facility] [place] [address] [id number] [place] [id number] Dec, [facility] [place] [facility] [address] [facility] [id number], [place] [address] 2546 Dec, [facility] [place] [facility] [address] [facility] [id number] [place] [address]- 9[address] Dec, [facility] [address] [id number], [place] 422821296 Nov, [facility] [place] [facility] [address]00565100[place], [place] [address]- 69[address] Nov, [facility] [place] [facility] [address]00565100[place], [place] [address]- 5565 Nov, [facility] [place] [address] [id number], [place] [id number] Nov, [facility] [place] [facility] [address]00565100[place], [place] [address]- 4[address] Nov, [facility] [place] [address] [facility] [id number], [place] [id number] Oct, [facility] [place] [facility] [address] [facility] [id number], [place] [address]- 9[address] Oct, [facility] [address] [id number], [place] 635112188 Sep, [facility] [place] [facility] [address] [id number], [place] [address]- 8[address] Sep, [facility] [place] [address] [id number], [place] 819449314 Sep, [facility] [place] [facility] [address] [facility] [id number], [place] [address]- 9[address] Sep, [facility] [address] [id number] [place] [id number] Aug, [facility] [place] [facility] [address] [id number] [place] 7035[place]- 0812 Aug, [facility] [place] [address] [id number] [place] [id number] Aug, [facility] [place] [facility] [address] [facility] [id number] [place] [address]- 3626 Aug, [facility] [place] [facility] [address] [id number], [place] [address]- 4406 Jul, [facility] [place] [address] [id number] [place] [id number] Jul, [facility] [address] [id number] [place] [id number] Jul, [facility] [place] [address] [id number] [place] [id number] Jul, [facility] [place] [facility] [address] [facility] [id number], [place] [address]- 7[address] Jul, [facility] [place] [facility] [address] [id number], [place] [address]- 5[address] Jul, [facility] [place] [facility] [address] [facility] [id number], [place] [address]- 9016 Jul, [facility] [place] [facility] [address] [facility] [id number], [place] [address]- 2470 Jul, [facility] [place] [address] [facility] [id number], [place] 468537985 Jun, [facility] [place] [facility] [address] [id number], [place] [address]- 5623 Jun, [facility] [place] [facility] [address] [facility] [id number] [place] [address]- 6566 Jun, [facility] [place] [address] [id number] [place] [id number] Jun, [facility] [place] [facility] [address] [id number], [place] [address]- 2384 Jun, [facility] [place] [address] [id number] [place] [id number] Jun, [facility] [place] [facility] [address] [facility] [id number], [place] [address]- 1514 Jun, [facility] [place] [address] [facility] [id number] [place] [id number] Apr, [facility] [place] [facility] [address] [facility] [id number], [place] [address]- 4476 Apr, [facility] [place] [address] [facility] [id number] [place] [id number] Apr, [facility] [place] [facility] [address] [facility] [id number], [place] [address]- 6225 Apr, [facility] [address] [facility] [id number] [place] [id number] Apr, [facility] [place] [facility] [address]00565100[place], [place] [address]- 5497 Apr, [facility] [place] [facility] [address] [facility] [id number], [place] [address]- 9335 March, [facility] [place] [facility] [address] [facility] [id number], [place] [address]- 5659 March, [facility] [address] [facility] [id number] [place] [id number] March, [facility] [address] [place] [id number] [place] [id number] Feb, [facility] [place] [facility] [address] [facility] [id number], [place] [address]- 5917 Feb, [facility] [address] [facility] [id number] [place] [id number] Jan, [facility] [place] [facility] [address] [facility] [id number], [place] [address]- 3922 Jan, [facility] [address] [facility] [id number] [place] [id number] Dec, [facility] [place] [facility] [address] [facility] [id number], [place] [address]- 1418 Dec, [facility] [address] [id number], [place] [id number] Dec, [facility] [address] [facility] [id number] [place] [address]- 2546 Dec, [facility] [place] [facility] [address] [facility] [id number] [place] [address]- 2546 Dec, [facility] [place] [facility] [address] [facility] [id number], [place] [address]- 2546 Dec, [facility] [address] [id number], [place] 934013673 Nov, [facility] [place] [facility] [address] [facility] [id number] [place] [address]- 2546 Nov, [facility] [address] [id number], [place] [id number] Nov, [facility] [address]00565100[place], [place] [address]- 2546 Nov, [facility] [address] [id number], [place] [id number] Nov, [facility] [place] [facility] [address] [address] [id number], [place] [address]- 2546 Nov, [facility] [address] [facility] [id number], [place] [id number] Oct, [facility] [place] [facility] [address] [facility] [id number], [place] [address]- 2546 Oct, [facility] [place] [facility] [address] [facility] [id number], [place] [address]- 2546 Oct, [facility] [place] [address] [id number], [place] [id number] Oct, [facility] [place] [facility] [address] [facility] [id number], [place] [address]- 2546 Sep, [facility] [place] [facility] [address] [facility] [id number], [place] [address]- 2546 Sep, [facility] [address] [id number] [place] [id number] Sep, [facility] [address] [facility] [id number], [place] [address]- 2546 Sep, [facility] [address] [id number] [place] [id number] Aug, [facility] [address] [facility] [id number], [place] [address] Aug, [facility] [address] [id number] [place] [id number] Jul, [facility] [address] [id number] [place] [id number] Jul, [facility] [address] [id number] [place] [id number] Jun, [facility] [address] [id number] [place] [id number] May, [facility] [address] [id number] [place] [id number] May, [facility] [address] [facility] [id number], [place] [address] May, [facility] [address] [id number] [place] [id number] Apr, [facility] [address] [id number] [place] [id number] Apr, [facility] [address] [id number] [place] [id number] March, [facility] [address] [id number] [place] [id number] Feb, [facility] [address] [id number] [place] [id number] Feb, [facility] [address] [id number] [place] [id number] Jan, [facility] [address] [id number] [place] [id number] Jan, [facility] [address] [id number] [place] [id number] Dec, [facility] [address] [id number][place] [id number] Nov, [facility] [address] [facility] [id number], [place] [address] Oct, [facility] [address] [facility] [id number], [place] [address] Oct, [facility] [address] [facility] [id number][place] [id number] Oct, [facility] [address] [facility] [id number], [place] [address] Oct, [facility] [address] [facility] [id number], [place] [address] Oct, [facility] [address] [facility] [id number][place] [id number] Oct, [facility] [address] [id number] [id number] Sep, [facility] [id number], [place] [address] Sep, [facility] [address] [facility] [id number], [place] [id number] Sep, [facility] [id number], [place] [address] Sep, [facility] [address] [id number][place] [id number] Aug, [facility] [address] [facility] [id number], [place] [address] Aug, [facility] [address] [id number][place] [id number] Aug, [facility] [address] [id number], [place] [id number] Jun, [facility] [address] [facility] [id number][place] [id number] Jun, [facility] [address] [facility] [id number], [place] [address] May, [facility] [address] [id number][place] [id number] Apr, [facility] [address] [id number][place] [id number] March, [facility] [address] [id number][place] [id number] Feb, [facility] [address] [id number][place] [id number] Jan, [facility] [id number], [place] [id number] Nov, [facility] [address] [id number], [place] [address] Sep, [facility] [id number] [place] [address] Sep, [facility] [id number] [place] [address] Aug, [facility] [facility] [id number] [place] [id number] Apr, [facility] [id number], [place] [id number] March, IMMUNIZATIONS No Known Immunizations SOCIAL HISTORY Never Assessed REASON FOR VISIT CHM- Depression f/u. Hasn't felt much difference since starting the seroquel last month [facility] CAN PLAN OF CARE Activity Details Follow Up 4 Weeks Reason:depression VITAL SIGNS Height 62 in 2017-06-27 Weight 172.6 lbs 2017-06-27 Temperature 98.0 degrees Fahrenheit 2017-06-27 Heart Rate 76 bpm 2017-06-27 Respiratory Rate 16 2017-06-27 BMI 31.57 kg/m2 2017-06-27 Blood pressure systolic 124 mmHg 2017-06-27 Blood pressure diastolic 70 mmHg 2017-06-27 MEDICATIONS Medication Instructions Dosage Frequency Start Date End Date Duration Status Diclofenac Sodium 50 mg Orally Three times a day 1 tablet with food or milk 8h Jan, 0 days Active Accolate 20 mg Orally Twice a day 1 tablet 12h Apr, Active Parafon Forte DSC 500 mg Orally Three times a day PRN. Must last one month 1 tablet Active Spiriva HandiHaler 18 MCG Inhalation Once a day 1 capsule 24h Active ProAir HFA 108 (90 Base) MCG/ACT Inhalation every 4 hrs as needed 2 puffs 0 days Active Levothyroxine Sodium 25 MCG Orally Once a day half a tablet on an empty stomach in the morning 24h May, 0 days Active Seroquel 25 MG Orally at bedtime as needed .5-1 tablet May, Active Xolair 150 MG Active Advair Diskus 250 mcg-50 mcg Inhalation 2 times a day 1 puffs 12h Active Singulair 10 mg Orally Once a day 1 tablet in the evening 24h Apr, Active Fluoxetine 40 mg Orally Once a day 1 capsule in the morning 24h Jun, Active Flonase 50 MCG/ACT Nasally 2 times a day 2 spray in each nostril 12h Active Gabapentin 300 MG Orally 3 times a day 1 capsule 8h 0 days Active Atorvastatin Calcium 20 mg Orally Once a day at bedtime 1 tablet May, 0 days Active Omeprazole 40 MG Orally 2 times a day 1 capsule 12h 0 days Active Fluoxetine 20 mg Orally Once a day total 60 mg/d 1 capsule in the morning Jun, Active RESULTS No Results PROCEDURES No [...]
--- OUTSIDE RECORDS SUMMARY | 2018-11-11 16:56 | XMS REPORT ---
Author Author TARIQ TATE Organization [facility] Address [address] [place] [address] Care Team Providers Care Warehouse Picker Name Role Phone TARIQ TATE Unavailable PROBLEMS Type Condition ICD9-CM Code UEA43-LH Code Onset Dates Condition Status SNOMED Code Problem Hip bursitis, left M70.72 Active 51035568 Problem Moderate episode of recurrent major depressive disorder F33.1 Active 270440883 Problem Sciatic leg pain M54.30 Active 05297703 Problem Other depression F32.8 Active 25363099 Problem Osteoarthritis of both knees, unspecified osteoarthritis type M17.0 Active 719954054 Problem Chronic obstructive pulmonary disease, unspecified COPD type J44.9 Active 76073580 Problem Arthralgia of right temporomandibular joint M26.62 Active 70853168 ALLERGIES No Information ENCOUNTERS Encounter Location Date Diagnosis [id number] [place] [address] [id number] Apr, Moderate episode of recurrent major depressive disorder F33.1 ; Sciatic leg pain M54.30 and Chronic obstructive pulmonary disease, unspecified COPD type J44.[id number] [place] [address] [id number] March, [id number] [place] [address] [id number] Feb, Sciatic leg pain M54.30 [place] [address] [facility] [address] [id number][place] [id number] Feb, [id number] [place] [address] [id number] 14 Dec, 2017 Moderate episode of recurrent major depressive disorder F33.1 ; Sciatic leg pain M54.30 ; Chronic obstructive pulmonary disease, unspecified COPD type J44.9 and Screening for thyroid disorder Z13.29 [place] [id number] [place] [address] [id number] Dec, Chronic obstructive pulmonary disease, unspecified COPD type J44.9 [facility] [address] [id number] [place] [id number] Nov, Sciatic leg pain M54.[address] [facility] [address] [id number], [place] [id number] Oct, [facility] [address] [id number] [place] 075187301 Oct, Acute pain of right shoulder M25.511 [facility] [address] [id number] [place] [id number] Oct, Chronic obstructive pulmonary disease, unspecified COPD type J44.9 [facility] [address] [id number] [place] [id number] Oct, [facility] [address] [id number] [place] 739381764 Sep, Chronic obstructive pulmonary disease, unspecified COPD type J44.9 and Sciatic leg pain M54.30 [facility] [address] [id number] [place] [id number] Aug, Moderate episode of recurrent major depressive disorder F33.1 and Chronic obstructive pulmonary disease, unspecified COPD type J44.9 [facility] [address] [id number], [place] 399701426 Aug, Moderate episode of recurrent major depressive disorder F33.1 [facility] [address] [id number] [place] 512477149 Jul, Other depression F32.8 and Chronic obstructive pulmonary disease, unspecified COPD type J44.9 [facility] [address] [id number] [place] 238531336 Jul, Moderate episode of recurrent major depressive disorder F33.[address] [facility] [address] [id number], [place] [id number] Jun, [facility] [address] [id number] [place] 830993052 Jun, Moderate episode of recurrent major depressive disorder F33.1 [facility] [address] [id number] [place] [id number] Jun, Moderate episode of recurrent major depressive disorder F33.1 [facility] [id number] [place] [address]84392851 Jun, [facility] [id number] [place] 025209105 Jun, Sciatic leg pain M54.30 [facility] [id number] [place] [address] [id number] Jun, [facility] [id number] [place] [address] [id number] May, Screening for thyroid disorder Z13.29 and Screening for lipid disorders Z13.220 [place] [id number] [place] [address] [id number] May, Other depression F32.8 [address] 019982476 Apr, Sciatic leg pain M54.30 [address] [place] [address] [id number] Apr, Screening for lipid disorders Z13.220 ; Screening for thyroid disorder Z13.29 and Chronic obstructive pulmonary disease, unspecified COPD type J44.9 [address] [place] [address] [id number] Apr, Screening for lipid disorders Z13.220 ; Screening for thyroid disorder Z13.29 and Chronic obstructive pulmonary disease, unspecified COPD type J44.9 [facility] [address]100[place] [address]175[address]338 Apr, [facility] [address] [place] [id number] Apr, Chronic obstructive pulmonary disease, unspecified COPD type J44.9 [facility] [address] [place] [address] [id number] [place] [address] March [facility] [id number] [place] [id number] March, Sciatic leg pain M54.30 and Other depression F32.8 [address] [place] 348761716 March, [facility] [address] [id number] [place] 087540997 Jan, Other depression F32.8 and Sciatic leg pain M54.30 [facility] [address] [id number] [place] [id number] Jan, Sciatic leg pain M54.30 [facility] [address] [id number] [place] 180025992 Dec, Other depression F32.8 [facility] [id number] [place] [address] [id number] Dec, Chronic obstructive pulmonary disease, unspecified COPD type J44.9 [facility] [id number] [place] [address] [id number] Nov, [facility] [id number] [place] [address] [id number] Oct, Other depression F32.8 and Chronic obstructive pulmonary disease, unspecified COPD type J44.9 [facility] [address] [id number] [place] 713083478 Aug, [facility] [id number] [place] 761336128 Aug, Other depression F32.8 ; Arthralgia of right temporomandibular joint M26.62 and Encounter for immunization Z23 [facility] [place] [id number] [place] [id number] Aug, Encounter for well woman exam Z01.419 [facility] [place] [address] [id number] [place] 452168289 Jul, Other depression F32.8 and Arthralgia of right temporomandibular joint M26.62 [facility] [address] [id number] [place] [phone] Jun, [facility] [id number] [place] [address] Jun [facility] [address] [id number] [place] [id number] Jun, [facility] [id number] [place] [address] [id number] Jun, Other depression F32.8 and Urinary tract infection without hematuria, site unspecified N39.0 [facility] [id number] [place] [address] [id number] Apr, [facility] [id number] [place] [address] [id number] Apr, Dysuria R30.0 [facility] [address] [id number] [address] March, [facility] [id number] [place] [address] [id number] March, Urinary tract infection, site unspecified N39.0 [facility] [id number] [place] [address] [id number] March, Urinary tract infection, site unspecified N39.0 [facility] [id number] [place] [address] [id number] Feb, [facility] [id number] [place] [address] [id number] Feb, Headache R51 and Ear pain H92.09 [facility] [id number] [place] [address] [id number] Jan, Osteoarthritis of both knees, unspecified osteoarthritis type M17.0 and Hip bursitis, left M70.72 [facility] [id number] [place] [address] [id number] Jan, [facility] [id number] [place] [address] [id number] Dec, Unspecified arthropathy, site unspecified 716.90 and COPD (chronic obstructive pulmonary disease) 496 [facility] [id number] [place] [id number] Dec, [facility] [id number] [place] [address] [id number] Nov, [facility] [id number] [place] 823004951 Oct, [facility] [id number] [place] [address] [id number] Sep, [facility] [address] [facility] [id number] [place] [phone] Sep, [facility] [address] [facility] [id number] [place] [id number] Aug, [facility] [id number], [place] [id number] Aug, [facility] [address] [facility] [id number] [place] 995145559 Aug, Urinary tract infection N39.0 and Shoulder strain, right, initial encounter S46.911A [facility] [address] [facility] [id number] [place] [id number] Aug, Screening breast examination Z12.39 and Encounter for immunization Z23 [facility] [id number] [place] 316714217 Aug, [facility] [address]00565[address] [id number] Aug, [facility] [id number] [place] 807443815 Jul, [facility] [id number] [place] [address] [id number] Jun, [facility] [id number] [place] [address] [id number] Jun, Allergic rhinitis, cause unspecified 477.9 and Cough 786.2 [facility] [id number] [place] [address] [id number] May, [facility] [id number] [place] [address] [id number] May, [facility] [address] [facility] [id number] [place] 590606498 May, Visit for suture removal V58.32 [facility] [id number] [place] [address] [id number] May, Dog bite 879.8 [facility] [address] [place] [id number] [place] [id number] Apr, Rib pain on right side 786.50 [facility] [id number] [place] [address] [id number] Apr, [facility] [address] [id number] [place] [phone] Apr, Allergic rhinitis, cause unspecified 477.9 and Cough 786.2 [facility] [address] [id number] [place] [id number] March, [facility] [id number] [place] 151538275 March, [facility] [id number] [place] [id number] March, [facility] [id number] [place] 197787031 March, [facility] [id number] [place] [address] [id number] March, Cough 786.2 and Shortness of breath 786.05 [facility] [id number] [place] [address] [id number] March, [facility] [id number] [place] 750699551 March, Cough 786.2 ; COPD (chronic obstructive pulmonary disease) 496 and Allergic rhinitis, cause unspecified 477.9 [facility] [id number] [place] 515816853 Feb, Allergic rhinitis, cause unspecified 477.9 ; Cough 786.2 and COPD ( chronic obstructive pulmonary disease) 496 [facility] [address]00565100[place] [address] Feb, [facility] [id number] [place] [address] Feb, [facility] [address]00565100[place] [address]- [address] Jan, [facility] [id number] [place] [address] 76[address]- 2689 Jan, [facility] [address] [id number] [address]- [address] Jan, [facility] [address] [id number] [id number] Jan, [facility] [place] [facility] [address] [facility] [id number], [place] [address]- [address] Jan, [facility] [address] [facility] [id number] [place] [id number] Dec, [facility] [place] [facility] [address] [facility] [id number][place] [address]- 9[address] Dec, [facility] [address] [facility] [id number] [place] [id number] Dec, [facility] [place] [facility] [address] [facility] [id number][place] [address]- 6[address] Dec, [facility] [address] [facility] [id number] [place] [id number] Dec, [facility] [place] [facility] [address]00565100[place], [place] [address]- 8[address] Dec, [facility] [place] [facility] [address]00565100[place], [place] [address]- 4607 Dec, [facility] [address] [facility] [id number] [place] [id number] Nov, [facility] [place] [facility] [address]00565100[place], [place] [address]- 00[address] Nov, [facility] [place] [facility] [address] [id number], [place] [address]- 1656 Nov, [facility] [address] [facility] [id number] [place] [id number] Nov, [facility] [place] [facility] [address] [facility] [id number][place] [address]- 368[address] Nov, [facility] [address] [facility] [id number] [place] 867349032 Oct, [facility] [place] [facility] [address] [facility] [id number][place] [address]- 9466 Oct, [facility] [address] [id number] [place] [id number] Sep, [facility] [place] [facility] [address] [id number][place] [address]- 85[address] Sep, [facility] [address] [facility] [id number] [place] [id number] Sep, [facility] [place] [facility] [address] [facility] [id number][place] [address]- 9007 Sep, [facility] [address] [facility] [id number] [place] [id number] Aug, [facility] [place] [facility] [address] [facility] [id number], [place] [address]- 0427 Aug, [facility] [address] [id number] [place] [id number] Aug, [facility] [place] [facility] [address] [facility] [id number] [address]- 6902 Aug, [facility] [place] [facility] [address] [facility] [id number][place] [address]- 5767 Jul, [facility] [address] [id number] [place] 875689332 Jul, [facility] [address] [facility] [id number] [place] [id number] Jul, [facility] [address] [facility] [id number] [place] 776018993 Jul, [facility] [place] [facility] [address] [facility] [id number], [place] [address]- 1877 Jul, [facility] [place] [facility] [address] [facility] [id number][place] [address]- 9191 Jul, [facility] [place] [facility] [address] [facility] [id number], [place] [address]- 1655 Jul, [facility] [place] [facility] [address] [facility] [id number][place] [address]- 5070 Jul, [facility] [address] [facility] [id number] [place] [id number] Jun, [facility] [place] [facility] [address] [facility] [id number][place] [address]- 3016 Jun, [facility] [place] [facility] [address] [id number] [place] [address]- 0661 Jun, [facility] [address] [id number] [place] 718238659 Jun, [facility] [place] [facility] [address] [id number] [place] [address]- 5306 Jun, [facility] [address] [id number] [place] 102962572 Jun, [facility] [place] [facility] [address] [id number] [place] [address]- 4981 Jun, [facility] [address] [id number] [place] 738264684 Apr, [facility] [place] [facility] [address] [facility] [id number][place] [address]- 3111 Apr, [facility] [address] [facility] [id number] [place] 714898441 Apr, [facility] [place] [facility] [address] [facility] [id number][place] [address]- 4281 Apr, [facility] [address] [id number] [place] [id number] Apr, [facility] [place] [facility] [address] [facility] [id number][place] [address]- 4139 Apr, [facility] [place] [facility] [address] [facility] [id number] [place] [address]- 9866 March, [facility] [place] [facility] [address] [id number] [place] [address]- 4847 March, [facility] [address] [id number] [place] [id number] March, [facility] [address] [id number] [place] [id number] Feb, [facility] [place] [facility] [address] [id number] [place] [address]- 2554 Feb, [facility] [address] [id number] [place] 630264000 Jan, [facility] [address] [facility] [id number], [place] [address]- 0666 Jan, [facility] [address] [facility] [id number] [place] [id number] Dec, [facility] [place] [facility] [address]00565100[place], [place] [address]- 8366 Dec, [facility] [address] [facility] [id number] [place] 498337656 Dec, [facility] [place] [facility] [address] [facility] [id number][place] [address]- 7537 Dec, [facility] [place] [facility] [address] [id number], [place] [address]- 0696 Dec, [facility] [place] [facility] [address]00565100[place], [place] [address]- [address] Dec, [facility] [address] [id number] [place] 421547363 Nov, [facility] [place] [facility] [address] [id number], [place] [address]- 3229 Nov, [facility] [address] [id number] [place] 554752743 Nov, [facility] [place] [facility] [address] [id number], [place] [address]- 5326 Nov, [facility] [address] [facility] [id number] [place] 439624311 Nov, [facility] [place] [facility] [address] [facility] [id number][place] [address]- 6566 Nov, [facility] [address] [facility] [id number] [place] 226882370 Oct, [facility] [place] [facility] [address] [facility] [id number][place] [address]- 7346 Oct, [facility] [place] [facility] [address] [id number], [place] [address]- 2320 Oct, [facility] [address] [id number] [place] 699202966 Oct, [facility] [address] [facility] [id number], [place] [address]- 2546 Sep, [facility] [address] [facility] [id number][place] [address]- 2546 Sep, [facility] [address] [id number] [place] 069797604 Sep, [facility] [place] [facility] [address] [facility] [id number][place] [address]- 2546 Sep, [facility] [address] [id number] [place] 226061558 Aug, [facility] [place] [facility] [address] [facility] [id number][place] [address]- 2546 Aug, [facility] [address] [id number] [place] [id number] Jul, [facility] [address] [id number] [place] 191437729 Jul, [facility] [address] [id number] [place] [id number] Jun, [facility] [address] [id number] [place] [id number] May, [facility] [address] [id number] [place] 846040118 May, [facility] [address] [id number], [place] [address]- 2546 May, [facility] [address] [id number] [place] 245278835 Apr, [facility] [address] [id number] [place] 185633294 Apr, [facility] [address] [id number] [place] [id number] March, [facility] [address] [id number] [place] [id number] Feb, [facility] [address] [id number] [place] [id number] Feb, [facility] [address] [id number] [place] [id number] Jan, [facility] [address] [id number] [place] [id number] Jan, [facility] [address] [id number] [place] [id number] Dec, [facility] [address] [id number] [place] [id number] Nov, [facility] [address] [facility] [id number], [place] [address] Oct, [facility] [address] [facility] [id number], [place] [address] Oct, [facility] [address] [id number] [place] [id number] Oct, [facility] [id number], [place] [address] Oct, [facility] [id number], [place] [address] Oct, [facility] [address] [id number] [place] [id number] Oct, [facility] [address] [facility] [id number] [place] [id number] Sep, [facility] [address]00565[address], [place] [address] Sep, [facility] [address] [id number] [place] [id number] Sep, [facility] [address] [facility] [id number], [place] [address] Sep, [facility] [address] [facility] [id number] [place] [id number] Aug, [facility] [address] [id number], [place] [address] Aug, [facility] [address] [facility] [id number] [place] [id number] Aug, [facility] [id number] [place] [id number] Jun, [facility] [id number] [place] [id number] Jun, [facility] [id number] [place] [address] May, [facility] [id number] [place] [id number] Apr, [facility] [id number] [place] [id number] March, [facility] [id number] [place] [id number] Feb, [facility] [id number] [place] [id number] Jan, [facility] [id number] [place] [id number] Nov, [facility] [id number] [place] [address] Sep, [facility] [id number] [place] [address] Sep, [facility] [id number] [place] [address] Aug, [facility] [id number] [place] [address] Apr, [facility] [id number] [place] [address] March, IMMUNIZATIONS No Known Immunizations SOCIAL HISTORY Never Assessed REASON FOR VISIT PALS Received-Advair PLAN OF CARE VITAL SIGNS MEDICATIONS Unknown Medications RESULTS No Results PROCEDURES No Known procedures INSTRUCTIONS MEDICATIONS ADMINISTERED No Known Medications MEDICAL (GENERAL) HISTORY Type Description Date Medical History acid reflux Medical History hernia- Hiatel dx in 1999 Medical History asthma Medical History seasonal allergies Medical History chronic obstructive pulmonary disease (COPD) Medical History last mammogram 2015 reported as normal Medical History Depression Surgical History Bladder tied up 1999 Surgical History Post Cholecystectomy 1999 Surgical History Neuroplasty with transportation of median nerve at carpal tunnel right wrist Unknown Surgical History appendectomy 1999 Surgical History hysterectomy, total with bilateral salpingo-oophorectomy (BSO ) 2001 Hospitalization History surgeries Hospitalization History ER for left hip pain 12/2016
--- OUTSIDE RECORDS SUMMARY | 2018-11-11 16:57 | XMS REPORT ---
Author Author TARIQ TATE [facility] Address [address] [place] [address] Care Team Providers Care Skip Tracer Name Role Phone TARIQ TATE Unavailable PROBLEMS Type Condition ICD9-CM Code RSF13-DJ Code Onset Dates Condition Status SNOMED Code Problem Hip bursitis, left M70.72 Active 10967529 Problem Moderate episode of recurrent major depressive disorder F33.1 Active 124215115 Problem Sciatic leg pain M54.30 Active 98648735 Problem Other depression F32.8 Active 67484877 Problem Osteoarthritis of both knees, unspecified osteoarthritis type M17.0 Active 986970057 Problem Chronic obstructive pulmonary disease, unspecified COPD type J44.9 Active 37465718 Problem Arthralgia of right temporomandibular joint M26.62 Active 90204870 ALLERGIES Substance Reaction Event Type Date Status Sulfamethoxazole nausea and vomiting Drug Allergy Oct, Active ENCOUNTERS Encounter Location Date Diagnosis [address] [id number] [place] [address] [id number] Apr, Moderate episode of recurrent major depressive disorder F33.1 ; Sciatic leg pain M54.30 and Chronic obstructive pulmonary disease, unspecified COPD type J44.[address] [id number] [place] [address] [id number] March, [address] [id number] [place] [address] [id number] Feb, Sciatic leg pain M54.30 [facility] [address] [id number] [id number] Feb, [address] [id number] [place] [address] [id number] Dec, Moderate episode of recurrent major depressive disorder F33.1 ; Sciatic leg pain M54.30 ; Chronic obstructive pulmonary disease, unspecified COPD type J44.9 and Screening for thyroid disorder Z13.29 [facility] [address] [id number], [place] [id number] Dec, Chronic obstructive pulmonary disease, unspecified COPD type J44.9 [facility] [place] [address] [id number] [place] [id number] Nov, Sciatic leg pain M54.30 [facility] [address] [id number], [place] [phone] Oct, [facility] [address] [id number], [place] 057110743 Oct, Acute pain of right shoulder M25.511 [facility] [place] [address] [id number] [place] [id number] Oct, Chronic obstructive pulmonary disease, unspecified COPD type J44.9 [facility] [place] [address] [id number], [place] [id number] Oct, [facility] [place] [address] [id number] [place] [address] [id number] Sep, Chronic obstructive pulmonary disease, unspecified COPD type J44.9 and Sciatic leg pain M54.30 [facility] [place] [address] [id number], [place] [id number] Aug, Moderate episode of recurrent major depressive disorder F33.1 and Chronic obstructive pulmonary disease, unspecified COPD type J44.9 [facility] [address] [id number], [place] [id number] Aug, Moderate episode of recurrent major depressive disorder F33.1 [facility] [address] [id number], [place] [id number] Jul, Other depression F32.8 and Chronic obstructive pulmonary disease, unspecified COPD type J44.9 [facility] [place] [address] [id number], [place] [id number] Jul, Moderate episode of recurrent major depressive disorder F33.[address] [facility] [address] [id number], [place] [id number] Jun, [facility] [place] [address] [id number], [place] [id number] Jun, Moderate episode of recurrent major depressive disorder F33.1 [facility] [place] [address] [id number], [place] [phone] Jun, Moderate episode of recurrent major depressive disorder F33.1 [facility] [place] [address] [id number], [place] [id number] Jun, [facility] [place] [address] [id number], [place] [id number] Jun, Sciatic leg pain M54.30 [facility] [place] [address] [id number], [place] 829534878 Jun, [facility] [place] [address] [id number], [place] [id number] May, Screening for thyroid disorder Z13.29 and Screening for lipid disorders Z13.220 [facility] [place] [address] [id number], [place] 517351051 May, Other depression F32.8 [facility] [place] [address] [id number], [place] [id number] Apr, Sciatic leg pain M54.30 [facility] [place] [address] [id number], [place] [id number] Apr, Screening for lipid disorders Z13.220 ; Screening for thyroid disorder Z13.29 and Chronic obstructive pulmonary disease, unspecified COPD type J44.9 [facility] [place] [address] [id number], [place] [id number] Apr, Screening for lipid disorders Z13.220 ; Screening for thyroid disorder Z13.29 and Chronic obstructive pulmonary disease, unspecified COPD type J44.9 [facility] [place] [address] [id number], [place] [id number] Apr, [facility] [place] [address] [id number], [place] [id number] Apr, Chronic obstructive pulmonary disease, unspecified COPD type J44.9 [facility] [place] [address] [place], [place] [address] [id number] [place] [address] March [facility] [place] [address] [id number], [place] [id number] March, Sciatic leg pain M54.30 and Other depression F32.8 [facility] [place] [address] [id number], [place] [id number] March, [facility] [place] [address] [id number] [place] [address] [id number] Jan, Other depression F32.8 and Sciatic leg pain M54.30 [facility] [place] [address] [id number] [place] [address] [id number] Jan, Sciatic leg pain M54.30 [facility] [place] [address] [id number] [place] [address] [id number] Dec, Other depression F32.8 [facility] [place] [address] [id number] [place] [address] [id number] Dec, Chronic obstructive pulmonary disease, unspecified COPD type J44.9 [facility] [place] [address] [id number] [place] [address] [id number] Nov, [facility] [id number] [place] [address] [id number] Oct, Other depression F32.8 and Chronic obstructive pulmonary disease, unspecified COPD type J44.9 [facility] [address] [id number], [place] [id number] Aug, [facility] [id number] [place] [address] [id number] Aug, Other depression F32.8 ; Arthralgia of right temporomandibular joint M26.62 and Encounter for immunization Z23 [place] [id number] [place] [address] [id number] Aug, Encounter for well woman exam Z01.419 [facility] [id number] [place] [address] [id number] Jul, Other depression F32.8 and Arthralgia of right temporomandibular joint M26.62 [facility] [id number] [place] [address] [id number] Jun, [facility] [place] [id number] [place] [address] Jun [facility] [id number] [place] [address] [id number] Jun, [facility] [id number], [place] 022833204 Jun, Other depression F32.8 and Urinary tract infection without hematuria, site unspecified N39.0 [facility] [place] [id number], [place] [id number] Apr, [facility] [place] [id number] [place] [address] [id number] Apr, Dysuria R30.0 [facility] [address]00565100[place] [address] March, [facility] [place] [id number] [place] [address] [id number] March, Urinary tract infection, site unspecified N39.0 [facility] [place] [id number] [place] [address] [id number] March, Urinary tract infection, site unspecified N39.0 [facility] [place] [id number] [place] [address] [id number] Feb, [facility] [id number] [place] [address] [id number] Feb, Headache R51 and Ear pain H92.09 [facility] [id number] [place] [address] [id number] Jan, Osteoarthritis of both knees, unspecified osteoarthritis type M17.0 and Hip bursitis, left M70.72 [facility] [place] [id number], [place] 315719672 Jan, [facility] [place] [id number] [place] [address] [id number] Dec, Unspecified arthropathy, site unspecified 716.90 and COPD (chronic obstructive pulmonary disease) 496 [facility] [place] [id number] [place] [address] [id number] Dec, [facility] [place] [id number] [place] [address] [id number] Nov, [facility] [id number], [place] [id number] Oct, [facility] [place] [address] [id number], [place] [id number] Sep, [facility] [place] [address] [facility] [id number], [place] [id number] Sep, [facility] [id number], [place] [id number] Aug, [facility] [place] [address] [facility] [address] [id number], [place] [id number] Aug, [facility] [place] [id number], [place] [id number] Aug, Urinary tract infection N39.0 and Shoulder strain, right, initial encounter S46.911A [facility] [id number], [place] 359161029 Aug, Screening breast examination Z12.39 and Encounter for immunization Z23 [facility] [id number], [place] [id number] Aug, [facility] [place] [address]00565100[place] [id number] Aug, [facility] [address] [facility] [id number], [place] [id number] Jul, [facility] [id number], [place] [id number] Jun, [facility] [id number], [place] 746231184 Jun, Allergic rhinitis, cause unspecified 477.9 and Cough 786.2 [facility] [id number], [place] [id number] May, [facility] [id number], [place] [id number] May, [facility] [address] [facility] [id number], [place] [id number] May, Visit for suture removal V58.32 [facility] [id number], [place] [id number] May, Dog bite 879.8 [place] [id number], [place] [id number] Apr, Rib pain on right side 786.50 [facility] [address] [id number], [place] [id number] Apr, [facility] [place] [address] [id number], [place] [id number] Apr, Allergic rhinitis, cause unspecified 477.9 and Cough 786.2 [facility] [place] [id number], [place] [id number] March, [facility] [place] [id number] [place] [address] [id number] March, [facility] [place] [id number] [place] [address] [id number] March, [facility] [place] [id number] [place] [address] [id number] March, [facility] [place] [id number] [place] [address] [id number] March, Cough 786.2 and Shortness of breath 786.05 [facility] [place] [id number] [place] [address] [id number] March, [facility] [place] [id number] [place] [address] [id number] March, Cough 786.2 ; COPD (chronic obstructive pulmonary disease) 496 and Allergic rhinitis, cause unspecified 477.9 [facility] [id number] [place] [address] [id number] Feb, Allergic rhinitis, cause unspecified 477.9 ; Cough 786.2 and COPD ( chronic obstructive pulmonary disease) 496 [facility] [address]00565100[place] [address] Feb, [facility] [id number] [place] [address]- [address] Feb, [facility] [id number] [place] [address]68- 1794 Jan, [facility] [id number] [place] [address] 91[address]- 5831 Jan, [facility] [id number] [place] [address]- 1601 Jan, [facility] [address] [id number] [place] [id number] Jan, [facility] [place] [facility] [address] [facility] [id number] [place] [address]- [address] Jan, [facility] [address] [id number] [place] [id number] Dec, [facility] [place] [facility] [address] [facility] [id number] [address]- 2546 Dec, [facility] [address] [id number] [place] [id number] Dec, [facility] [place] [facility] [address] [facility] [id number][place] [address]- 2546 Dec, [facility] [address] [facility] [id number] [place] [id number] Dec, [facility] [place] [facility] [address]00565100[place] [address]- 2546 Dec, [facility] [place] [facility] [address] [facility] [id number] [address]- 4516 Dec, [facility] [address] [facility] [id number], [place] [id number] Nov, [facility] [place] [facility] [address] [facility] [id number] [address]- 9[address] Nov, [facility] [place] [facility] [address] [facility] [id number] [address]- 40[address] Nov, [facility] [address] [id number], [place] [id number] Nov, [facility] [place] [facility] [address] [facility] [id number] [address]- 8866 Nov, [facility] [address] [id number], [place] [id number] Oct, [facility] [place] [facility] [address] [facility] [id number], [place] [address]- 7506 Oct, [facility] [address] [id number], [place] [id number] Sep, [facility] [place] [facility] [address] [id number], [place] [address]- 8123 Sep, [facility] [address] [id number], [place] [id number] Sep, [facility] [place] [facility] [address] [facility] [id number] [address]- 1743 Sep, [facility] [address] [id number], [place] [id number] Aug, [facility] [place] [facility] [address] [facility] [id number], [place] 225492- 8826 Aug, [facility] [address] [id number], [place] [id number] Aug, [facility] [place] [facility] [address] [facility] [id number], [place] 247907- 6838 Aug, [facility] [place] [facility] [address] [facility] [id number], [place] [address]- 1644 Jul, [facility] [address] [id number], [place] [id number] Jul, [facility] [address] [id number], [place] [id number] Jul, [facility] [address] [id number], [place] [id number] Jul, [facility] [place] [facility] [address] [facility] [id number], [place] [address]- 5434 Jul, [facility] [place] [facility] [address] [facility] [id number] [address]- 5194 Jul, [facility] [place] [facility] [address] [facility] [id number] [address]- 7177 Jul, [facility] [place] [facility] [address] [facility] [id number], [place] [address]- 8167 Jul, [facility] [address] [facility] [id number], [place] [id number] Jun, [facility] [place] [facility] [address] [id number] [address]- 8020 Jun, [facility] [place] [facility] [address] [id number][place] [address]- 2075 Jun, [facility] [address] [id number] [place] [id number] Jun, [facility] [address] [id number] [address]- 6398 Jun, [facility] [address] [facility] [id number] [place] [id number] Jun, [facility] [place] [facility] [address] [id number] [address]- 1351 Jun, [facility] [address] [facility] [id number] [place] [id number] Apr, [facility] [place] [facility] [address] [facility] [id number] [address]- 2844 Apr, [facility] [address] [facility] [id number], [place] 077131325 Apr, [facility] [place] [facility] [address] [facility] [id number], [place] 013392- 3940 Apr, [facility] [address] [facility] [id number], [place] [id number] Apr, [facility] [place] [facility] [address] [facility] [id number] [address]- 5135 Apr, [facility] [place] [facility] [address] [facility] [id number], [place] [address]- 5004 March, [facility] [place] [facility] [address] [id number] [address]- 5046 March, [facility] [address] [id number] [place] [id number] March, [facility] [address] [facility] [id number], [place] [id number] Feb, [facility] [place] [facility] [address] [facility] [id number] [address]- 1556 Feb, [facility] [address] [id number] [place] 017853081 Jan, [facility] [address] [facility] [id number] [address]- 2546 Jan, [facility] [address] [facility] [id number], [place] [id number] Dec, [facility] [address] [facility] [id number] [address]- 8946 Dec, [facility] [address] [id number] [place] 690783747 Dec, [facility] [place] [facility] [address] [facility] [id number] [address]- 3666 Dec, [facility] [place] [facility] [address] [id number] [address]- 4166 Dec, [facility] [place] [facility] [address]00565100[place] [address]- 0912 Dec, [facility] [address] [facility] [id number], [place] 143735116 Nov, [facility] [place] [facility] [address]00565100[place] [address]- 9506 Nov, [facility] [address] [facility] [id number], [place] [id number] Nov, [facility] [place] [facility] [address] [id number], [place] [address]- 5206 Nov, [facility] [address] [facility] [id number], [place] 411478003 Nov, [facility] [place] [facility] [address] [facility] [id number] [address]- 2546 Nov, [facility] [address] [facility] [id number], [place] 056286048 Oct, [facility] [place] [facility] [address] [id number] [address]- 9916 Oct, [facility] [place] [facility] [address] [facility] [id number] [address]- 2546 Oct, [facility] [address] [id number] [place] [id number] Oct, [facility] [address] [facility] [id number] [address]- 2546 Sep, [facility] [address] [facility] [id number] [address]- 2546 Sep, [facility] [address] [id number], [place] [id number] Sep, [facility] [address] [facility] [id number] [address] Sep, [facility] [address] [id number][place] [id number] Aug, [facility] [address] [id number] [address] Aug, [facility] [address] [id number][place] [id number] Jul, [facility] [address] [id number] [place] [id number] Jul, [facility] [address] [id number] [place] [id number] Jun, [facility] [address] [id number][place] [id number] May, [facility] [address] [id number][place] [id number] May, [facility] [address] [facility] [id number], [place] [address] May, [facility] [address] [id number] [place] [id number] Apr, [facility] [address] [id number] [place] [id number] Apr, [facility] [address] [id number] [place] [id number] March, [facility] [address] [id number] [place] [id number] Feb, [facility] [address] [id number] [place] [id number] Feb, [facility] [address] [id number] [place] [id number] Jan, [facility] [address] [id number] [place] [id number] Jan, [facility] [address] [id number] [place] [id number] Dec, [facility] [address] [id number] [place] [id number] Nov, [facility] [address] [facility] [id number], [place] [address] Oct, [facility] [address] [facility] [id number] [address] Oct, [facility] [address] [facility] [id number][place] [id number] Oct, [facility] [id number], [place] [address] Oct, [facility] [id number], [place] [address] Oct, [facility] [address] [facility] [id number][place] [id number] Oct, [facility] [address] [facility] [id number][place] [id number] Sep, [facility] [address] [facility] [id number], [place] [address] Sep, [facility] [address] [facility] [id number][place] [id number] Sep, [facility] [address] [facility] [id number], [place] [address] Sep, [facility] [address] [facility] [id number][place] [id number] Aug, [facility] [address] [id number], [place] [address] Aug, [facility] [address] [id number], [place] [id number] Aug, [facility] [address] [id number][place] [id number] Jun, [facility] [address] [id number] [place] [id number] Jun, [facility] [address] [id number], [place] [address] May, [facility] [address] [id number] [place] [id number] Apr, [facility] [address] [id number] [place] [id number] March, [facility] [id number] [place] [id number] Feb, [facility] [id number] [place] [id number] Jan, [facility] [place] [id number] [place] [address] [id number] Nov, [facility] [id number] [place] [phone] Sep, [facility] [id number] [place] [phone] Sep, [facility] [id number] [place] [phone] Aug, [facility] [id number] [place] [phone] Apr, [facility] [id number] [place] [address] [phone] March, IMMUNIZATIONS No Known Immunizations SOCIAL HISTORY Never Assessed REASON FOR VISIT ER f/u right shoulder pain f/u, xray marky Sweet MA PLAN OF CARE Activity Details Follow Up prn Reason: VITAL SIGNS Height 62 in 2017-10-22 Weight 166.6 lbs 2017-10-22 Temperature 97.3 degrees Fahrenheit 2017-10-22 Heart Rate 76 bpm 2017-10-22 Respiratory Rate 16 2017-10-22 BMI 30.47 kg/m2 2017-10-22 Blood pressure systolic 110 mmHg 2017-10-22 Blood pressure diastolic 62 mmHg 2017-10-22 MEDICATIONS Medication Instructions Dosage Frequency Start Date End Date Duration Status Ibuprofen 800 MG Orally Three times a day 1 tablet with food or milk as needed 8h Oct, Active Xolair 150 MG Active Spiriva HandiHaler 18 MCG Inhalation Once a day 1 capsule 24h Active Advair Diskus 250 mcg-50 mcg Inhalation 2 times a day 1 puffs 12h Active Singulair 10 mg Orally Once a day 1 tablet in the evening 24h Apr, Active Omeprazole 40 mg Orally 2 times a day 1 capsule 12h 0 days Active Fluoxetine 40 mg Orally Once a day 2 capsule in the morning 24h Active Accolate 20 mg Orally Twice a day 1 tablet 12h Apr, Active EPINEPHrine 0.3 MG/0.3ML Injection PRN as directed Aug, Not-Taking Flonase 50 MCG/ACT Nasally 2 times a day 2 spray in each nostril 12h Active ProAir HFA 108 (90 Base) MCG/ACT [...] bedtime 1 tablet May, 0 days Active Levothyroxine Sodium 25 MCG Orally Once a day half a tablet on an empty stomach in the morning 24h May, 0 days Active Seroquel 25 MG Orally at bedtime as needed 1 tablet Active RESULTS No Results PROCEDURES No Known [...]
--- OUTSIDE RECORDS SUMMARY | 2018-11-11 16:59 | XMS REPORT ---
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 Name Role Phone TARIQ TATE Unavailable PROBLEMS Type Condition ICD9-CM Code XSL52-ZA Code Onset Dates Condition Status SNOMED Code Problem Hip bursitis, left M70.72 Active 63274858 Problem Moderate episode of recurrent major depressive disorder F33.1 Active 609736023 Problem Sciatic leg pain M54.30 Active 95785629 Problem Other depression F32.8 Active 06064228 Problem Osteoarthritis of both knees, unspecified osteoarthritis type M17.0 Active 921235159 Problem Chronic obstructive pulmonary disease, unspecified COPD type J44.9 Active 61103702 Problem Arthralgia of right temporomandibular joint M26.62 Active 62199413 ALLERGIES No Information ENCOUNTERS Encounter Location Date Diagnosis [id number] [place] [address] [id number] Apr, [id number] [place] [address] [id number] March, [place] [id number] [place] [address] [id number] Feb, Sciatic leg pain M54.30 [facility] [address] [id number] [id number] Feb, [address] [id number] [place] [address] [id number] Dec, Moderate episode of recurrent major depressive disorder F33.1 ; Sciatic leg pain M54.30 ; Chronic obstructive pulmonary disease, unspecified COPD type J44.9 and Screening for thyroid disorder Z13.[id number] [place] [address] [id number] Dec, Chronic obstructive pulmonary disease, unspecified COPD type J44.9 [address] [id number] Nov, Sciatic leg pain M54.30 [facility] [address] [id number] [place] [id number] Oct, [facility] [address] [id number], [place] 645603693 Oct, Acute pain of right shoulder M25.511 [facility] [address] [id number], [place] [id number] Oct, Chronic obstructive pulmonary disease, unspecified COPD type J44.9 [facility] [address] [id number], [place] 640507987 Oct, [facility] [address] [id number] [place] [address] [id number] Sep, Chronic obstructive pulmonary disease, unspecified COPD type J44.9 and Sciatic leg pain M54.30 [facility] [address] [id number], [place] [id number] Aug, Moderate episode of recurrent major depressive disorder F33.1 and Chronic obstructive pulmonary disease, unspecified COPD type J44.9 [facility] [address] [id number], [place] [id number] Aug, Moderate episode of recurrent major depressive disorder F33.1 [facility] [address] [id number], [place] [id number] Jul, Other depression F32.8 and Chronic obstructive pulmonary disease, unspecified COPD type J44.9 [facility] [address] [id number], [place] [id number] Jul, Moderate episode of recurrent major depressive disorder F33.1 [facility] [address] [id number], [place] [id number] Jun, [facility] [address] [id number], [place] [id number] Jun, Moderate episode of recurrent major depressive disorder F33.1 [facility] [address] [id number], [place] [id number] Jun, Moderate episode of recurrent major depressive disorder F33.1 [facility] [address] [id number], [place] [id number] Jun, [facility] [address] [id number], [place] [id number] Jun, Sciatic leg pain M54.30 [facility] [address] [id number], [place] 199217536 Jun, [facility] [address] [id number], [place] 312589918 May, Screening for thyroid disorder Z13.29 and Screening for lipid disorders Z13.220 [facility] [address] [id number], [place] [id number] May, Other depression F32.8 [facility] [address] [id number] [place] [address] [id number] Apr, Sciatic leg pain M54.30 [facility] [id number], [place] [id number] Apr, Screening for lipid disorders Z13.220 ; Screening for thyroid disorder Z13.29 and Chronic obstructive pulmonary disease, unspecified COPD type J44.9 [facility] [address] [id number], [place] [id number] Apr, Screening for lipid disorders Z13.220 ; Screening for thyroid disorder Z13.29 and Chronic obstructive pulmonary disease, unspecified COPD type J44.9 [facility] [address] [id number], [place] [id number] Apr, [facility] [address] [id number], [place] 434691127 Apr, Chronic obstructive pulmonary disease, unspecified COPD type J44.9 [facility] [place] [facility] [address] [id number] [place] [address] March [facility] [address] [facility] [id number], [place] [id number] March, Sciatic leg pain M54.30 and Other depression F32.8 [facility] [address] [id number], [place] 956694463 March, [facility] [id number], [place] 509271846 Jan, Other depression F32.8 and Sciatic leg pain M54.30 [facility] [id number], [place] 203809455 Jan, Sciatic leg pain M54.30 [facility] [id number] [place] [address] [id number] Dec, Other depression F32.8 [facility] [id number] [place] [address] [id number] Dec, Chronic obstructive pulmonary disease, unspecified COPD type J44.9 [facility] [id number] [place] [address] [id number] Nov, [facility] [address] [id number] [place] [address] [id number] Oct, Other depression F32.8 and Chronic obstructive pulmonary disease, unspecified COPD type J44.9 [facility] [id number] [place] [address] [id number] Aug, [facility] [place] [id number] [place] [address] [id number] Aug, Other depression F32.8 ; Arthralgia of right temporomandibular joint M26.62 and Encounter for immunization Z23 [facility] [place] [id number] [place] [address] [id number] Aug, Encounter for well woman exam Z01.419 [facility] [place] [id number] [place] [address] [id number] Jul, Other depression F32.8 and Arthralgia of right temporomandibular joint M26.62 [facility] [id number], [place] 038234951 Jun, [facility] [place] [address] [id number] [address] Jun [facility] [id number] [place] [address] [id number] Jun, [facility] [id number] [place] [address] [id number] Jun, Other depression F32.8 and Urinary tract infection without hematuria, site unspecified N39.0 [facility] [place] [id number], [place] [id number] Apr, [facility] [id number], [place] [id number] Apr, Dysuria R30.0 [facility] [address] [id number] [address] March, [facility] [id number], [place] [id number] March, Urinary tract infection, site unspecified N39.0 [facility] [id number], [place] [id number] March, Urinary tract infection, site unspecified N39.0 [facility] [place] [id number], [place] 775241652 Feb, [facility] [place] [id number] [place] [address] [id number] Feb, Headache R51 and Ear pain H92.09 [facility] [place] [id number], [place] [id number] Jan, Osteoarthritis of both knees, unspecified osteoarthritis type M17.0 and Hip bursitis, left M70.72 [facility] [place] [id number], [place] [id number] Jan, [facility] [place] [id number] [place] [address] [id number] Dec, Unspecified arthropathy, site unspecified 716.90 and COPD (chronic obstructive pulmonary disease) 496 [facility] [id number], [place] [id number] Dec, [facility] [id number], [place] [id number] Nov, [facility] [id number], [place] [id number] Oct, [facility] [address] [id number], [place] [id number] Sep, [facility] [id number], [place] 943793312 Sep, [facility] [place] [address] [id number], [place] [id number] Aug, [facility] [place] [address] [facility] [address] [id number], [place] 775180736 Aug, [facility] [id number], [place] [id number] Aug, Urinary tract infection N39.0 and Shoulder strain, right, initial encounter S46.911A [facility] [id number] [place] [address] [id number] Aug, Encounter for immunization Z23 and Screening breast examination Z12.39 [facility] [address] [facility] [id number], [place] [id number] Aug, [facility] [address]00565100[place] [id number] Aug, [facility] [address] [place] [address] [id number], [place] [id number] Jul, [facility] [id number] [place] [address] [id number] Jun, [facility] [id number], [place] [id number] Jun, Allergic rhinitis, cause unspecified 477.9 and Cough 786.2 [facility] [id number] [place] [address] [id number] May, [place] [address] [place] [id number], [place] 665488357 May, [place] [id number] [place] [address] [id number] May, Visit for suture removal V58.32 [facility] [address] [facility] [id number], [place] 978139987 May, Dog bite 879.8 [place] [id number] [place] [address] [id number] Apr, Rib pain on right side 786.50 [facility] [address] [place] [address] [id number], [place] [id number] Apr, [place] [id number] [place] [address] [id number] Apr, Allergic rhinitis, cause unspecified 477.9 and Cough 786.2 [facility] [id number], [place] [id number] March, [facility] [id number], [place] [id number] March, [facility] [place] [id number] [place] [address] [id number] March, [facility] [id number] [place] [address] [id number] March, [facility] [place] [id number] [place] [address] [id number] March, Cough 786.2 and Shortness of breath 786.05 [facility] [place] [address] [id number] [place] [address] [id number] March, [facility] [id number] [place] [address] [id number] March, Cough 786.2 ; COPD (chronic obstructive pulmonary disease) 496 and Allergic rhinitis, cause unspecified 477.9 [facility] [place] [id number], [place] [id number] Feb, Allergic rhinitis, cause unspecified 477.9 ; Cough 786.2 and COPD ( chronic obstructive pulmonary disease) 496 [facility] [address] [id number], [place] [address] Feb, [facility] [id number] [place] [address] 9565 Feb, [facility] [id number] [place] [address] 43600 2545 Jan, [facility] [id number] [place] [address] 316[address]- 9991 Jan, [facility] [id number] [place] [address] 64[address]- 6241 Jan, [facility] [id number], [place] [id number] Jan, [facility] [id number] [place] [address] [place] [address] Jan, [facility] [address] [facility] [id number] [place] 468321905 Dec, [facility] [place] [facility] [address] [facility] [id number], [place] [address]- [address] Dec, [facility] [address] [facility] [id number], [place] [id number] Dec, [facility] [place] [facility] [address] [facility] [id number], [place] [address]- 9736 Dec, [facility] [address] [facility] [id number], [place] 418166199 Dec, [facility] [place] [facility] [address] [facility] [id number], [place] [address]- 4486 Dec, [facility] [place] [facility] [address]00565100[place], [place] [address]- 8816 Dec, [facility] [address] [facility] [id number], [place] [id number] Nov, [facility] [place] [facility] [address] [facility] [id number], [place] [address]- 6471 Nov, [facility] [place] [facility] [address] [facility] [id number], [place] [address]- 1142 Nov, [facility] [address] [facility] [id number], [place] [id number] Nov, [facility] [place] [facility] [address] [facility] [id number], [place] [address]- 2253 Nov, [facility] [address] [facility] [id number], [place] [id number] Oct, [facility] [place] [facility] [address] [facility] [id number], [place] [address]- 0386 Oct, [facility] [address] [facility] [id number], [place] [id number] Sep, [facility] [place] [facility] [address] [id number], [place] [address]- 0079 Sep, [facility] [address] [id number], [place] [id number] Sep, [facility] [place] [facility] [address] [facility] [id number], [place] [address]- 6956 Sep, [facility] [address] [id number] [place] [id number] Aug, [facility] [place] [facility] [address] [facility] [id number], [place] [address]- 2097 Aug, [facility] [address] [id number], [place] [id number] Aug, [facility] [place] [facility] [address] [facility] [id number], [place] [address]- 7785 Aug, [facility] [place] [facility] [address] [facility] [id number], [place] [address]- 8866 Jul, [facility] [address] [facility] [id number], [place] 816901135 Jul, [facility] [address] [facility] [id number], [place] 745325357 Jul, [facility] [address] [facility] [id number] [place] [id number] Jul, [facility] [place] [facility] [address] [facility] [id number], [place] [address]- 5761 Jul, [facility] [place] [facility] [address] [facility] [id number], [place] [address]- 7691 Jul, [facility] [place] [facility] [address] [facility] [id number], [place] [address]- 6967 Jul, [facility] [place] [facility] [address] [facility] [id number], [place] [address]- 5457 Jul, [facility] [address] [facility] [id number], [place] 307407956 Jun, [facility] [place] [facility] [address] [facility] [id number], [place] [address]- 0895 Jun, [facility] [place] [facility] [address] [facility] [id number], [place] [address]- 8269 Jun, [facility] [address] [id number] [place] 863488585 Jun, [facility] [place] [facility] [address] [id number] [place] [address]- 7646 Jun, [facility] [address] [id number] [place] 203536772 Jun, [facility] [place] [facility] [address] [facility] [id number] [place] [address]- 6636 Jun, [facility] [address] [id number] [place] 366950241 Apr, [facility] [place] [facility] [address] [facility] [id number], [place] [address]- 5866 Apr, [facility] [address] [id number] [place] 720247888 Apr, [facility] [place] [facility] [address]00565100[place], [place] [address]- 6558 Apr, [facility] [address] [id number], [place] 020563020 Apr, [facility] [place] [facility] [address] [facility] [id number], [place] [address]- 6906 Apr, [facility] [place] [facility] [address] [facility] [id number], [place] [address]- 0500 March, [facility] [place] [facility] [address] [facility] [id number], [place] [address]- 8956 March, [facility] [address] [id number], [place] 541651116 March, [facility] [address] [id number] [place] 771195149 Feb, [facility] [place] [facility] [address] [facility] [id number], [place] [address]- 2256 Feb, [facility] [address] [id number] [place] 208972517 Jan, [facility] [place] [facility] [address] [facility] [id number], [place] [address]- 8096 Jan, [facility] [address] [id number], [place] 878450719 Dec, [facility] [address] [facility] [id number], [place] [address]- 4556 Dec, [facility] [address] [facility] [id number], [place] 151076317 Dec, [facility] [address] [facility] [id number], [place] [address]- 7086 Dec, [facility] [address] [facility] [id number], [place] [address]- 1003 Dec, [facility] [address] [facility] [id number], [place] [address]- 1992 Dec, [facility] [address] [facility] [id number], [place] [id number] Nov, [facility] [address]00565100[place], [place] [address]- 7045 Nov, [facility] [address] [facility] [id number], [place] [id number] Nov, [facility] [address] [id number], [place] [address]- 6334 Nov, [facility] [address] [facility] [id number], [place] [id number] Nov, [facility] [address] [facility] [id number], [place] [address] 2546 Nov, [facility] [address] [facility] [id number], [place] 515077590 Oct, [facility] [place] [facility] [address] [facility] [id number], [place] [address] 2546 Oct, [facility] [place] [facility] [address] [facility] [id number], [place] [address]- 2546 Oct, [facility] [address] [facility] [id number], [place] 974901157 Oct, [facility] [place] [facility] [address] [facility] [id number], [place] [address]- 5275 Sep, [facility] [address] [facility] [id number], [place] [address]- 6341 Sep, [facility] [address] [id number] [place] 560589671 Sep, [facility] [address] [facility] [id number], [place] [address]- 8573 Sep, [facility] [address] [id number] [place] 874555669 Aug, [facility] [address] [facility] [id number], [place] [address]- 9303 Aug, [facility] [address] [id number] [place] 715972838 Jul, [facility] [address] [id number] [place] 417326407 Jul, [facility] [address] [id number] [place] 668610659 Jun, [facility] [address] [id number] [place] 724362195 May, [facility] [address] [id number] [place] [id number] May, [facility] [address] [facility] [id number], [place] [address] May, [facility] [address] [id number] [place] [id number] Apr, [facility] [address] [id number] [place] [id number] Apr, [facility] [address] [id number] [place] [id number] March, [facility] [address] [id number] [place] [id number] Feb, [facility] [address] [id number] [place] [id number] Feb, [facility] [address] [id number] [place] [id number] Jan, [facility] [address] [id number] [place] [id number] Jan, [facility] [address] [id number] [place] [id number] Dec, [facility] [address] [id number] [place] [id number] Nov, [facility] [address] [facility] [id number], [place] [address] Oct, [facility] [address] [facility] [id number], [place] [address] Oct, [facility] [address] [id number][place] [id number] Oct, [facility] [address] [facility] [id number], [place] [address] Oct, [facility] [address] [id number], [place] [address] Oct, [facility] [address] [id number][place] [id number] Oct, [facility] [address] [id number][place] [id number] Sep, [facility] [address] [facility] [id number], [place] [address] Sep, [facility] [address] [id number][place] [id number] Sep, [facility] [address] [facility] [id number], [place] [address] Sep, [facility] [address] [id number], [place] [id number] Aug, [facility] [address] [facility] [id number], [place] [address] Aug, [facility] [address] [id number][place] [id number] Aug, [facility] [address] [facility] [id number][place] [id number] Jun, [facility] [address] [id number][place] [id number] Jun, [facility] [id number] [place] [address] May, [facility] [address] [id number][place] [id number] Apr, [facility] [id number][place] [id number] March, [facility] [id number] [place] [id number] Feb, [facility] [id number] [place] [id number] Jan, [facility] [id number] [place] [id number] Nov, [facility] [id number] [place] [address] Sep, [facility] [id number] [place] [address] Sep, [facility] [id number] [place] [id number] Aug, [facility] [address] [id number] [place] [id number] [id number] Apr, [facility] [id number] [place] [phone] March, IMMUNIZATIONS No Known Immunizations SOCIAL HISTORY Never Assessed REASON FOR VISIT PALS refill PLAN OF CARE VITAL SIGNS MEDICATIONS Unknown [...]
--- OUTSIDE RECORDS SUMMARY | 2018-11-11 17:00 | XMS REPORT ---
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 Name Role Phone TARIQ TATE Unavailable PROBLEMS Type Condition ICD9-CM Code RZO06-ET Code Onset Dates Condition Status SNOMED Code Problem Hip bursitis, left M70.72 Active 51198651 Problem Moderate episode of recurrent major depressive disorder F33.1 Active 286256225 Problem Sciatic leg pain M54.30 Active 79183624 Problem Other depression F32.8 Active 71390073 Problem Osteoarthritis of both knees, unspecified osteoarthritis type M17.0 Active 855262672 Problem Chronic obstructive pulmonary disease, unspecified COPD type J44.9 Active 98256646 Problem Arthralgia of right temporomandibular joint M26.62 Active 25729226 ALLERGIES No Information ENCOUNTERS Encounter Location Date Diagnosis [id number] [place] [address] [id number] Apr, [id number] [place] [address] [id number] March, [place] [id number] [place] [address] [id number] Feb, Sciatic leg pain M54.30 [facility] [id number] [id number] [place] [id number] Feb, [address] [id number] [place] [address] [id number] Dec, Moderate episode of recurrent major depressive disorder F33.1 ; Sciatic leg pain M54.30 ; Chronic obstructive pulmonary disease, unspecified COPD type J44.9 and Screening for thyroid disorder Z13.[id number] [place] [address] [id number] Dec, Chronic obstructive pulmonary disease, unspecified COPD type J44.9 [address] [id number] Nov, Sciatic leg pain M54.30 [facility] [address] [id number] [place] [id number] Oct, [facility] [address] [id number], [place] [id number] Oct, Acute pain of right shoulder M25.511 [facility] [address] [id number], [place] [id number] Oct, Chronic obstructive pulmonary disease, unspecified COPD type J44.9 [facility] [address] [id number], [place] [phone] Oct, [facility] [id number] [place] [address] [id number] Sep, Chronic obstructive pulmonary disease, unspecified COPD type J44.9 and Sciatic leg pain M54.30 [facility] [place] [address] [id number], [place] [id number] Aug, Moderate episode of recurrent major depressive disorder F33.1 and Chronic obstructive pulmonary disease, unspecified COPD type J44.9 [facility] [address] [id number] [place] [phone] Aug, Moderate episode of recurrent major depressive disorder F33.1 [facility] [address] [id number], [place] [id number] Jul, Other depression F32.8 and Chronic obstructive pulmonary disease, unspecified COPD type J44.9 [facility] [address] [id number], [place] [id number] Jul, Moderate episode of recurrent major depressive disorder F33.1 [facility] [address] [id number] [place] [phone] Jun, [facility] [address] [id number], [place] 200036709 Jun, Moderate episode of recurrent major depressive disorder F33.1 [facility] [address] [id number], [place] [id number] Jun, Moderate episode of recurrent major depressive disorder F33.1 [facility] [address] [id number], [place] [id number] Jun, [facility] [address] [id number], [place] 646999034 Jun, Sciatic leg pain M54.30 [facility] [address] [id number], [place] 241105179 Jun, [facility] [address] [id number], [place] [id number] May, Screening for thyroid disorder Z13.29 and Screening for lipid disorders Z13.220 [facility] [address] [id number], [place] [id number] May, Other depression F32.8 [facility] [id number] [place] [address] [id number] Apr, Sciatic leg pain M54.30 [facility] [id number], [place] [id number] Apr, Screening for lipid disorders Z13.220 ; Screening for thyroid disorder Z13.29 and Chronic obstructive pulmonary disease, unspecified COPD type J44.9 [facility] [address] [id number], [place] [id number] Apr, Screening for lipid disorders Z13.220 ; Screening for thyroid disorder Z13.29 and Chronic obstructive pulmonary disease, unspecified COPD type J44.9 [facility] [address] [id number], [place] [phone] Apr, [facility] [address] [id number], [place] [id number] Apr, Chronic obstructive pulmonary disease, unspecified COPD type J44.9 [facility] [place] [facility] [address] [id number] [place] [address] March [facility] [address] [facility] [id number], [place] [id number] March, Sciatic leg pain M54.30 and Other depression F32.8 [facility] [address] [id number], [place] [phone] March, [facility] [id number], [place] 519850278 Jan, Other depression F32.8 and Sciatic leg pain M54.30 [facility] [id number], [place] 699962365 Jan, Sciatic leg pain M54.30 [facility] [id number] [place] [address] [id number] Dec, Other depression F32.8 [facility] [id number] [place] [address] [id number] Dec, Chronic obstructive pulmonary disease, unspecified COPD type J44.9 [facility] [place] [id number] [place] [address] [id number] Nov, [facility] [id number] [place] [address] [id number] Oct, Other depression F32.8 and Chronic obstructive pulmonary disease, unspecified COPD type J44.9 [facility] [id number] [place] [address] [id number] Aug, [facility] [place] [id number] [place] [address] [id number] Aug, Other depression F32.8 ; Arthralgia of right temporomandibular joint M26.62 and Encounter for immunization Z23 [facility] [place] [id number] [place] [address] [id number] Aug, Encounter for well woman exam Z01.419 [facility] [place] [id number] [place] [address] [id number] Jul, Other depression F32.8 and Arthralgia of right temporomandibular joint M26.62 [facility] [id number], [place] [phone] Jun, [facility] [place] [address] [id number] [address] Jun [facility] [place] [id number] [place] [address] [id number] Jun, [facility] [place] [id number] [place] [address] [id number] Jun, Other depression F32.8 and Urinary tract infection without hematuria, site unspecified N39.0 [facility] [place] [id number], [place] 550472610 Apr, [facility] [id number], [place] [id number] Apr, Dysuria R30.0 [facility] [address] [id number] [address] March, [facility] [id number], [place] [id number] March, Urinary tract infection, site unspecified N39.0 [facility] [id number], [place] 815953348 March, Urinary tract infection, site unspecified N39.0 [facility] [place] [id number], [place] [id number] Feb, [facility] [place] [id number] [place] [address] [id number] Feb, Headache R51 and Ear pain H92.09 [facility] [place] [id number], [place] [id number] Jan, Osteoarthritis of both knees, unspecified osteoarthritis type M17.0 and Hip bursitis, left M70.72 [facility] [place] [id number], [place] [phone] Jan, [facility] [place] [id number] [place] [address] [id number] Dec, Unspecified arthropathy, site unspecified 716.90 and COPD (chronic obstructive pulmonary disease) 496 [facility] [place] [id number], [place] [id number] Dec, [facility] [id number], [place] [id number] Nov, [facility] [id number], [place] [phone] Oct, [facility] [address] [id number], [place] 747388934 Sep, [facility] [id number], [place] 643761204 Sep, [facility] [address] [id number], [place] [id number] Aug, [facility] [place] [address] [facility] [address] [id number] [place] [id number] Aug, [facility] [id number], [place] [id number] Aug, Urinary tract infection N39.0 and Shoulder strain, right, initial encounter S46.911A [facility] [id number] [place] [address] [id number] Aug, Encounter for immunization Z23 and Screening breast examination Z12.39 [facility] [address] [facility] [id number], [place] [id number] Aug, [facility] [address]00565100[place] [phone] Aug, [facility] [address] [place] [address] [id number], [place] [id number] Jul, [facility] [id number] [place] [address] [id number] Jun, [facility] [id number], [place] [id number] Jun, Allergic rhinitis, cause unspecified 477.9 and Cough 786.2 [facility] [id number] [place] [address] [id number] May, [place] [address] [id number], [place] 360942474 May, [place] [id number] [place] [address] [id number] May, Visit for suture removal V58.32 [facility] [address] [facility] [id number], [place] [phone] May, Dog bite 879.8 [place] [id number] [place] [address] [phone] Apr, Rib pain on right side 786.50 [facility] [address] [place] [id number], [place] [id number] Apr, [place] [id number] [place] [address] [id number] Apr, Allergic rhinitis, cause unspecified 477.9 and Cough 786.2 [facility] [place] [id number], [place] [id number] March, [facility] [place] [id number], [place] [id number] March, [facility] [place] [id number] [place] [address] [id number] March, [facility] [place] [id number] [place] [address] [id number] March, [facility] [place] [id number] [place] [address] [id number] March, Cough 786.2 and Shortness of breath 786.05 [facility] [place] [id number] [place] [address] [id number] March, [facility] [id number] [place] [address] [id number] March, Cough 786.2 ; COPD (chronic obstructive pulmonary disease) 496 and Allergic rhinitis, cause unspecified 477.9 [facility] [place] [id number], [place] [id number] Feb, Allergic rhinitis, cause unspecified 477.9 ; Cough 786.2 and COPD ( chronic obstructive pulmonary disease) 496 [facility] [address] [id number] [address] Feb, [facility] [id number] [place] [address]- 4136 Feb, [facility] [id number] [place] [address] 85435 2548 Jan, [facility] [id number] [place] [address] 97860- 3715 Jan, [facility] [id number] [place] [address] 98[address]- 0928 Jan, [facility] [id number], [place] [id number] Jan, [facility] [id number] [place] [address] [place] [address]- 7266 Jan, [facility] [address] [facility] [id number] [place] [id number] Dec, [facility] [place] [facility] [address] [facility] [id number] [address]- 2466 Dec, [facility] [address] [facility] [id number], [place] [id number] Dec, [facility] [place] [facility] [address] [facility] [id number] [address]- 6796 Dec, [facility] [address] [facility] [id number], [place] [phone] Dec, [facility] [place] [facility] [address] [facility] [id number] [address]- 3306 Dec, [facility] [place] [facility] [address]00565100[place], [place] [address]- 4066 Dec, [facility] [address] [facility] [id number], [place] 735458510 Nov, [facility] [place] [facility] [address] [facility] [id number], [place] [address]- 1771 Nov, [facility] [place] [facility] [address] [facility] [id number][place] [address]- 5004 Nov, [facility] [address] [facility] [id number], [place] [id number] Nov, [facility] [place] [facility] [address] [facility] [id number], [place] [address]- 0360 Nov, [facility] [address] [facility] [id number], [place] [id number] Oct, [facility] [place] [facility] [address] [facility] [id number], [place] [address]- 2916 Oct, [facility] [address] [facility] [id number], [place] [id number] Sep, [facility] [place] [facility] [address] [id number], [place] [address]- 5640 Sep, [facility] [address] [id number], [place] [id number] Sep, [facility] [place] [facility] [address] [facility] [id number], [place] [address]- 1758 Sep, [facility] [address] [id number] [place] [id number] Aug, [facility] [place] [facility] [address] [facility] [id number][place] [address]- 4794 Aug, [facility] [address] [id number], [place] [id number] Aug, [facility] [place] [facility] [address] [facility] [id number][place] [address]- 9832 Aug, [facility] [place] [facility] [address] [facility] [id number], [place] [address]- 6342 Jul, [facility] [address] [facility] [id number], [place] [id number] Jul, [facility] [address] [facility] [id number], [place] [id number] Jul, [facility] [address] [facility] [id number] [place] 895343275 Jul, [facility] [place] [facility] [address] [facility] [id number][place] [address]- 4713 Jul, [facility] [place] [facility] [address] [facility] [id number][place] [address]- 3667 Jul, [facility] [place] [facility] [address] [facility] [id number][place] [address]- 8374 Jul, [facility] [place] [facility] [address] [facility] [id number], [place] [address]- 0958 Jul, [facility] [address] [facility] [id number], [place] [id number] Jun, [facility] [place] [facility] [address] [facility] [id number], [place] [address]- 7167 Jun, [facility] [place] [facility] [address] [facility] [id number], [place] [address]- 4700 Jun, [facility] [address] [id number] [place] 332434193 Jun, [facility] [place] [facility] [address] [id number] [place] [address]- 9096 Jun, [facility] [address] [id number] [place] [id number] Jun, [facility] [place] [facility] [address] [facility] [id number] [place] [address]- 8526 Jun, [facility] [address] [id number] [place] [id number] Apr, [facility] [place] [facility] [address] [facility] [id number], [place] [address]- 2466 Apr, [facility] [address] [id number] [place] 136826384 Apr, [facility] [place] [facility] [address]00565100[place] [address]- 0800 Apr, [facility] [address] [id number], [place] 711427250 Apr, [facility] [place] [facility] [address] [facility] [id number], [place] [address]- 5606 Apr, [facility] [place] [facility] [address] [facility] [id number] [address]- 8430 March, [facility] [place] [facility] [address] [facility] [id number] [address]- 4586 March, [facility] [address] [id number], [place] 534559099 March, [facility] [address] [id number] [place] 336929898 Feb, [facility] [place] [facility] [address] [facility] [id number] [address]- 6736 Feb, [facility] [address] [id number] [place] 097679549 Jan, [facility] [place] [facility] [address] [facility] [id number][place] [address]- 3246 Jan, [facility] [address] [id number], [place] 267240649 Dec, [facility] [address] [facility] [id number], [place] [address]- 0906 Dec, [facility] [address] [facility] [id number], [place] 698393740 Dec, [facility] [address] [facility] [id number] [address]- 7606 Dec, [facility] [address] [facility] [id number][place] [address]- 7469 Dec, [facility] [address] [facility] [id number] [address]- 1720 Dec, [facility] [address] [facility] [id number], [place] [id number] Nov, [facility] [address]00565100[place] [address]- 1563 Nov, [facility] [address] [facility] [id number], [place] 631721739 Nov, [facility] [address] [id number] [address]- 9336 Nov, [facility] [address] [facility] [id number], [place] 761551347 Nov, [facility] [address] [facility] [id number] [address] 2546 Nov, [facility] [address] [facility] [id number], [place] [id number] Oct, [facility] [place] [facility] [address] [facility] [id number] [address] 2546 Oct, [facility] [place] [facility] [address] [facility] [id number], [place] [address]- 2546 Oct, [facility] [address] [facility] [id number], [place] 171067380 Oct, [facility] [place] [facility] [address] [facility] [id number], [place] [address]- 8978 Sep, [facility] [address] [facility] [id number], [place] [address]- 1175 Sep, [facility] [address] [id number] [place] 929009857 Sep, [facility] [address] [facility] [id number][place] [address]- 5401 Sep, [facility] [address] [id number] [place] [id number] Aug, [facility] [address] [facility] [id number], [place] [address]- 7447 Aug, [facility] [address] [id number] [place] [id number] Jul, [facility] [address] [id number] [place] [id number] Jul, [facility] [address] [id number] [place] [id number] Jun, [facility] [address] [id number] [place] [id number] May, [facility] [address] [id number] [place] [id number] May, [facility] [address] [facility] [id number][place] [address] May, [facility] [address] [id number] [place] [id number] Apr, [facility] [address] [id number] [place] [id number] Apr, [facility] [address] [id number] [place] [id number] March, [facility] [address] [id number] [place] [id number] Feb, [facility] [address] [id number] [place] [id number] Feb, [facility] [address] [id number] [place] [id number] Jan, [facility] [address] [id number] [place] [id number] Jan, [facility] [address] [id number] [place] [id number] Dec, [facility] [address] [id number] [place] [id number] Nov, [facility] [address] [facility] [id number][place] [address] Oct, [facility] [address] [facility] [id number], [place] [address] Oct, [facility] [address] [id number][place] [id number] Oct, [facility] [address] [facility] [id number], [place] [address] Oct, [facility] [address] [id number] [address] Oct, [facility] [address] [id number][place] [id number] Oct, [facility] [address] [id number][place] [id number] Sep, [facility] [address] [facility] [id number], [place] [address] Sep, [facility] [address] [id number][place] [id number] Sep, [facility] [address] [facility] [id number], [place] [address] Sep, [facility] [address] [id number][place] [id number] Aug, [facility] [address] [facility] [id number], [place] [address] Aug, [facility] [address] [id number][place] [id number] Aug, [facility] [address] [facility] [id number][place] [id number] Jun, [facility] [address] [id number][place] [id number] Jun, [facility] [address] [id number], [place] [address] May, [facility] [address] [id number][place] [id number] Apr, [facility] [id number], [place] [id number] March, [facility] [id number][place] [id number] Feb, [facility] [id number], [place] [id number] Jan, [facility] [id number] [place] [id number] Nov, [facility] [id number] [place] [address] Sep, [facility] [id number] [place] [address] Sep, [facility] [id number] [place] [address] Aug, [facility] [id number] [place] [address] Apr, [facility] [address] [id number], [place] [address] March, IMMUNIZATIONS No Known Immunizations SOCIAL HISTORY [...] tied up 1999 Surgical History Post Cholecystectomy 2000 Surgical History Neuroplasty with transportation of median nerve at carpal tunnel right wrist Unknown Surgical History appendectomy 1999 Surgical History hysterectomy, total with bilateral salpingo-oophorectomy (BSO ) 2001 Hospitalization History surgeries Hospitalization History ER for left hip pain 12/2016
--- OUTSIDE RECORDS SUMMARY | 2018-11-11 17:01 | XMS REPORT ---
Author Author TARIQ TATE Organization [facility] Address [address] [place] [address] Care Team Providers Care Vocational Rehab Consultant Name Role Phone TARIQ TATE Unavailable PROBLEMS Type Condition ICD9-CM Code WOA30-QF Code Onset Dates Condition Status SNOMED Code Problem Hip bursitis, left M70.72 Active 85556707 Problem Moderate episode of recurrent major depressive disorder F33.1 Active 521994914 Problem Sciatic leg pain M54.30 Active 24154330 Problem Other depression F32.8 Active 06444484 Problem Osteoarthritis of both knees, unspecified osteoarthritis type M17.0 Active 769816439 Problem Chronic obstructive pulmonary disease, unspecified COPD type J44.9 Active 37850623 Problem Arthralgia of right temporomandibular joint M26.62 Active 27603649 ALLERGIES No Information ENCOUNTERS Encounter Location Date Diagnosis [id number] [place] [address] [id number] 14 Dec, 2017 Moderate episode of recurrent major depressive disorder F33.1 ; Sciatic leg pain M54.30 ; Chronic obstructive pulmonary disease, unspecified COPD type J44.9 and Screening for thyroid disorder Z13.[id number] [place] [address] [id number] Dec, Chronic obstructive pulmonary disease, unspecified COPD type J44.9 [place] [address] [address] [facility] [id number] [place] [address] [id number] Nov, Sciatic leg pain M54.[address] [id number][place] [phone] Oct, [facility] [id number] [place] [address] [id number] Oct, Acute pain of right shoulder M25.511 [address] [place] [address] [id number] Oct, Chronic obstructive pulmonary disease, unspecified COPD type J44.9 [facility] [place] [address] [id number] [id number] Oct, [facility] [place] [id number] [place] [address] [id number] Sep, Chronic obstructive pulmonary disease, unspecified COPD type J44.9 and Sciatic leg pain M54.30 [facility] [place] [id number] [place] [address] [id number] Aug, Moderate episode of recurrent major depressive disorder F33.1 and Chronic obstructive pulmonary disease, unspecified COPD type J44.9 [facility] [place] [address] [id number][place] [id number] Aug, Moderate episode of recurrent major depressive disorder F33.1 [facility] [place] [address] [id number], [place] [phone] Jul, Other depression F32.8 and Chronic obstructive pulmonary disease, unspecified COPD type J44.9 [facility] [place] [address] [id number][place] 875133927 Jul, Moderate episode of recurrent major depressive disorder F33.1 [facility] [address] [id number], [place] [phone] Jun, [facility] [place] [address] [id number], [place] [id number] Jun, Moderate episode of recurrent major depressive disorder F33.1 [facility] [place] [address] [id number][place] 896006846 Jun, Moderate episode of recurrent major depressive disorder F33.1 [facility] [place] [address] [id number], [place] [phone] Jun, [facility] [place] [address] [id number], [place] [id number] Jun, Sciatic leg pain M54.30 [facility] [place] [address] [id number], [place] [phone] Jun, [facility] [place] [address] [id number], [place] [id number] May, Screening for thyroid disorder Z13.29 and Screening for lipid disorders Z13.220 [facility] [place] [address] [id number], [place] [id number] May, Other depression F32.8 [facility] [place] [address] [id number] [place] [address] [id number] Apr, Sciatic leg pain M54.30 [facility] [place] [address] [id number], [place] 648471391 Apr, Screening for lipid disorders Z13.220 ; Screening for thyroid disorder Z13.29 and Chronic obstructive pulmonary disease, unspecified COPD type J44.9 [facility] [place] [address] [id number], [place] 942479612 Apr, Screening for lipid disorders Z13.220 ; Screening for thyroid disorder Z13.29 and Chronic obstructive pulmonary disease, unspecified COPD type J44.9 [facility] [place] [address] [id number], [place] [id number] Apr, [facility] [place] [id number] [place] [address] [id number] Apr, Chronic obstructive pulmonary disease, unspecified COPD type J44.[address] [facility] [address] [id number] [place] [address] March [facility] [place] [id number] [place] [address] [id number] March, Sciatic leg pain M54.30 and Other depression F32.8 [facility] [place] [address] [id number], [place] [id number] March, [facility] [place] [address] [id number], [place] 384122786 Jan, Other depression F32.8 and Sciatic leg pain M54.30 [facility] [place] [address] [id number], [place] [id number] Jan, Sciatic leg pain M54.30 [facility] [place] [id number], [place] 868396649 Dec, Other depression F32.8 [facility] [place] [address] [id number], [place] 344818925 Dec, Chronic obstructive pulmonary disease, unspecified COPD type J44.9 [facility] [place] [id number], [place] 862327566 Nov, [facility] [place] [address] [place] [id number] [place] [address] [id number] Oct, Other depression F32.8 and Chronic obstructive pulmonary disease, unspecified COPD type J44.9 [facility] [place] [id number] [place] [address] [id number] Aug, [facility] [place] [address] [id number] [place] [address] [id number] Aug, Other depression F32.8 ; Arthralgia of right temporomandibular joint M26.62 and Encounter for immunization Z23 [facility] [place] [address] [address] [place] [id number] [place] [address] [id number] Aug, Encounter for well woman exam Z01.419 [facility] [place] [address] [address] [place] [id number] [place] [address] [id number] Jul, Other depression F32.8 and Arthralgia of right temporomandibular joint M26.62 [facility] [place] [id number], [place] [id number] Jun, [facility] [address] [id number] [place] [address] Jun [facility] [place] [id number] [place] [address] [id number] Jun, [facility] [place] [id number] [place] [address] [id number] Jun, Other depression F32.8 and Urinary tract infection without hematuria, site unspecified N39.0 [facility] [place] [id number], [place] [id number] Apr, [facility] [place] [id number] [place] [address] [id number] Apr, Dysuria R30.0 [facility] [address] [address] March, [facility] [place] [id number] [place] [address] [id number] March, Urinary tract infection, site unspecified N39.0 [facility] [place] [address] [id number], [place] [id number] March, Urinary tract infection, site unspecified N39.0 [facility] [place] [address] [id number], [place] [id number] Feb, [facility] [place] [id number] [place] [address] [id number] Feb, Headache R51 and Ear pain H92.09 [facility] [place] [address] [id number] [place] [address] [id number] Jan, Osteoarthritis of both knees, unspecified osteoarthritis type M17.0 and Hip bursitis, left M70.72 [facility] [place] [id number] [place] [address] [id number] Jan, [facility] [place] [id number] [place] [address] [id number] Dec, Unspecified arthropathy, site unspecified 716.90 and COPD (chronic obstructive pulmonary disease) 496 [facility] [place] [address] [id number], [place] 527489558 Dec, [facility] [place] [id number] [place] [address] [id number] Nov, [facility] [place] [id number] [place] [address] [id number] Oct, [facility] [place] [id number] [place] [address] [id number] Sep, [facility] [place] [id number] [place] [address] [id number] Sep, [facility] [place] [address] [facility] [id number], [place] [id number] Aug, [facility] [place] [address] [facility] [id number] [place] [address] Aug, [facility] [place] [address] [facility] [id number], [place] [phone] Aug, Urinary tract infection N39.0 and Shoulder strain, right, initial encounter S46.911A [facility] [place] [id number] [place] [address] [id number] Aug, Encounter for immunization Z23 and Screening breast examination Z12.39 [facility] [address] [place] [id number], [place] [phone] Aug, [facility] [id number] 944[address]2414 Aug, [facility] [id number], [place] [phone] Jul, [facility] [id number] [place] [address] [id number] Jun, [facility] [id number], [place] [id number] Jun, Allergic rhinitis, cause unspecified 477.9 and Cough 786.2 [facility] [id number] [place] [address] [id number] May, [facility] [id number], [place] [id number] May, [facility] [address] [place] [id number] [place] [address] [id number] May, Visit for suture removal V58.32 [facility] [id number], [place] [id number] May, Dog bite 879.8 [facility] [id number] [place] [address] [id number] Apr, Rib pain on right side 786.50 [facility] [id number], [place] [id number] Apr, [facility] [address] [place] [id number] [place] [address] [id number] Apr, Allergic rhinitis, cause unspecified 477.9 and Cough 786.2 [facility] [id number], [place] [id number] March, [facility] [id number] [place] [address] [id number] March, [facility] [id number], [place] [id number] March, [facility] [address] [place] [id number] [place] [address] [id number] March, [facility] [place] [address] [place] [address] [id number], [place] [id number] March, Cough 786.2 and Shortness of breath 786.05 [facility] [place] [id number], [place] [id number] March, [facility] [place] [id number], [place] [id number] March, Cough 786.2 ; COPD (chronic obstructive pulmonary disease) 496 and Allergic rhinitis, cause unspecified 477.9 [facility] [place] [id number], [place] [id number] Feb, Allergic rhinitis, cause unspecified 477.9 ; Cough 786.2 and COPD ( chronic obstructive pulmonary disease) 496 [facility] [address] [address] Feb, [facility] [address] [place] [id number] [place] [address]- 7096 Feb, [facility] [address] [place] [address] 63793- 2545 Jan, [facility] [address] [place] [id number] [place] [address]- 5626 Jan, [facility] [address]00565100[place], [place] [address]- [address] Jan, [facility] [id number], [place] [id number] Jan, [facility] [address]00565100[place], [place] [address]- [address]46 Jan, [facility] [id number], [place] [id number] Dec, [facility] [address]00565100[place], [place] [address]- 25[address] Dec, [facility] [address] [place] [address] [id number], [place] [phone] Dec, [facility] [address] [place] [id number], [place] [address]- 8[address] Dec, [facility] [address] [id number] [place] [id number] Dec, [facility] [place] [facility] [address] [facility] [id number], [place] [address]- [address] Dec, [facility] [place] [facility] [address] [facility] [id number] [place] [address]- 25[address] Dec, [facility] [place] [address] [facility] [id number], [place] [id number] Nov, [facility] [place] [facility] [address] [facility] [id number] [place] [address]- 0066 Nov, [facility] [place] [facility] [address] [facility] [id number] [place] [address]- 6258 Nov, [facility] [address] [facility] [id number], [place] 417632493 Nov, [facility] [place] [facility] [address] [facility] [id number], [place] [address]- 7[address] Nov, [facility] [address] [facility] [id number] [place] 019114332 Oct, [facility] [place] [facility] [address] [facility] [id number], [place] [address]- 1276 Oct, [facility] [address] [facility] [id number] [place] [id number] Sep, [facility] [place] [facility] [address] [facility] [id number], [place] [address]- 2546 Sep, [facility] [address] [facility] [id number], [place] [phone] Sep, [facility] [place] [facility] [address] [facility] [id number] [place] [address] 2546 Sep, [facility] [address] [facility] [id number], [place] 159077593 Aug, [facility] [place] [facility] [address] [facility] [id number], [place] [address]- 5[address] Aug, [facility] [address] [id number], [place] [id number] Aug, [facility] [place] [facility] [address] [facility] [id number], [place] [address]- 3666 Aug, [facility] [place] [facility] [address] [facility] [id number], [place] 779103- 6957 Jul, [facility] [address] [id number] [place] 039556871 Jul, [facility] [address] [id number] [place] [id number] Jul, [facility] [address] [facility] [id number] [place] 053573783 Jul, [facility] [place] [facility] [address] [facility] [id number], [place] [address]- 9261 Jul, [facility] [place] [facility] [address]00565100[place], [place] [address]- 9815 Jul, [facility] [place] [facility] [address] [facility] [id number], [place] [address]- 4245 Jul, [facility] [place] [facility] [address] [facility] [id number][place] [address]- 3777 Jul, [facility] [address] [facility] [id number], [place] 011512121 Jun, [facility] [place] [facility] [address] [facility] [id number], [place] [address]- [address] Jun, [facility] [place] [facility] [address] [facility] [id number], [place] [address]- 9614 Jun, [facility] [address] [facility] [id number], [place] 110101335 Jun, [facility] [place] [facility] [address] [facility] [id number], [place] [address]- 8376 Jun, [facility] [address] [facility] [id number] [place] [id number] Jun, [facility] [place] [facility] [address] [facility] [id number], [place] [address]- 2342 Jun, [facility] [address] [id number], [place] [id number] Apr, [facility] [place] [facility] [address] [facility] [id number], [place] [address]- 2546 Apr, [facility] [address] [id number], [place] 109464800 Apr, [facility] [place] [facility] [address]00565100[place], [place] [address]- 0806 Apr, [facility] [address] [id number], [place] [id number] Apr, [facility] [place] [facility] [address]00565100[place], [place] [address]- 0116 Apr, [facility] [place] [facility] [address]00565100[place], [place] [address]- 8518 March, [facility] [place] [facility] [address]00565100[place], [place] [address]- 0879 March, [facility] [address] [id number], [place] 372450807 March, [facility] [address] [facility] [id number], [place] 215496820 Feb, [facility] [place] [facility] [address]00565100[place], [place] [address]- 5476 Feb, [facility] [address] [id number], [place] [id number] Jan, [facility] [place] [facility] [address] [facility] [id number], [place] [address] 2546 Jan, [facility] [address] [id number], [place] 525949870 Dec, [facility] [place] [facility] [address] [facility] [id number], [place] [address]- 0426 Dec, [facility] [address] [facility] [id number], [place] [id number] Dec, [facility] [place] [facility] [address]00565100[place], [place] [address]- 0496 Dec, [facility] [place] [facility] [address] [facility] [id number], [place] [address]- 5745 Dec, [facility] [place] [facility] [address] [place] [address] [id number], [place] [address]- 7924 Dec, [facility] [id number], [place] 215664683 Nov, [facility] [place] [facility] [address] [facility] [id number], [place] [address]- 0243 Nov, [facility] [address] [id number], [place] 606493956 Nov, [facility] [place] [facility] [address]00565100[place], [place] [address]- 72[address] Nov, [facility] [id number], [place] 680394859 Nov, [facility] [place] [facility] [address]00565100[place], [place] [address]- 0994 Nov, [facility] [id number], [place] 484840123 Oct, [facility] [place] [facility] [address]00565100[place], [place] [address]- 6196 Oct, [facility] [address]00565100[place], [place] [address]- 6778 Oct, [facility] [address] [id number], [place] 938199245 Oct, [facility] [place] [facility] [address] [facility] [id number], [place] [address]- 9542 Sep, [facility] [place] [facility] [address] [facility] [id number], [place] [address]- 6747 Sep, [facility] [address] [id number], [place] 575354759 Sep, [facility] [place] [facility] [address] [facility] [id number], [place] [address]- 6058 Sep, [facility] [address] [id number] [place] 147401984 Aug, [facility] [address] [facility] [id number], [place] [address]- 6231 Aug, [facility] [address] [id number] [place] [id number] Jul, [facility] [address] [id number] [place] [id number] Jul, [facility] [address] [id number] [place] [id number] Jun, [facility] [address] [id number] [place] [id number] May, [facility] [address] [id number] [place] [id number] May, [facility] [address] [facility] [id number], [place] [address] May, [facility] [address] [id number] [place] [id number] Apr, [facility] [address] [id number] [place] [id number] Apr, [facility] [address] [id number] [place] [id number] March, [facility] [address] [id number] [place] [id number] Feb, [facility] [address] [id number] [place] [id number] Feb, [facility] [address] [id number] [place] [id number] Jan, [facility] [address] [id number] [place] [id number] Jan, [facility] [address] [id number] [place] [id number] Dec, [facility] [address] [id number] [place] [id number] Nov, [facility] [id number], [place] [address] Oct, [facility] [address] [facility] [id number], [place] [address] Oct, [facility] [address] [id number] [place] [id number] Oct, [facility] [address] [facility] [id number], [place] [address] Oct, [facility] [address] [facility] [id number], [place] [address] Oct, [facility] [address] [id number][place] [id number] Oct, [facility] [address] [id number] [place] [id number] Sep, [facility] [address] [facility] [id number], [place] [address] Sep, [facility] [address] [id number][place] [id number] Sep, [facility] [address] [id number], [place] [address] Sep, [facility] [address] [id number][place] [id number] Aug, [facility] [address] [facility] [id number], [place] [address] Aug, [facility] [address] [id number][place] [id number] Aug, [facility] [address] [id number][place] [id number] Jun, [facility] [address] [id number][place] [id number] Jun, [facility] [address] [facility] [id number], [place] [address] May, [facility] [address] [id number][place] [id number] Apr, [facility] [address] [id number][place] [id number] March, [facility] [address] [id number] [place] [id number] Feb, [facility] [address] [facility] [id number][place] [id number] Jan, [facility] [address] [id number][place] [id number] Nov, [facility] [id number], [place] [address] Sep, [facility] [id number], [place] [address] Sep, [facility] [id number] [address] Aug, [facility] [id number] [id number] Apr, [facility] [id number], [place] [address] March, IMMUNIZATIONS No Known Immunizations SOCIAL HISTORY Never Assessed REASON FOR VISIT PALS received PLAN OF CARE VITAL SIGNS MEDICATIONS No Known Medications RESULTS No Results PROCEDURES No Known [...]
--- OUTSIDE RECORDS SUMMARY | 2018-11-11 17:08 | XMS REPORT | Continuity of Care Document ---
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 PULMONARY DISEASE, U 04/30/2018 TAVIA DOSTARLALITHA M Ot R05 COUGH 04/30/2018 TAVIA DOSTARLALITHA M Ot R06.00 DYSPNEA, UNSPECIFIED 04/30/2018 TAVIA DOSTARLALITHA M Ot J44.9 CHRONIC OBSTRUCTIVE PULMONARY DISEASE, U 04/30/2018 TAVIA DOSTARLALITHA M Ot R05 COUGH 04/30/2018 TAVIA DOSTARLALITHA M Ot R06.00 DYSPNEA, UNSPECIFIED 2018 LALITHA SQUIRES DO M Ot J44.9 CHRONIC OBSTRUCTIVE PULMONARY DISEASE, U 2018 TAVIA DOSTARLALITHA M Ot R05 COUGH 2018 TAVIA DOSTARLALITHA M Ot R06.00 DYSPNEA, UNSPECIFIED 2018 TAVIA DOSTARLALITHA M Ot J44.9 CHRONIC OBSTRUCTIVE PULMONARY DISEASE, U 2018 TAVIA DOSTARLALITHA M Ot R05 COUGH 2018 TAVIA DOSTARLALITHA M Ot R06.00 DYSPNEA, UNSPECIFIED 2018 TAVIA DOSTARLALITHA M Ot J44.9 CHRONIC OBSTRUCTIVE PULMONARY DISEASE, U 2018 TAVIA DOSTARLALITHA M Ot R05 COUGH 2018 TAVIA DOSTARLALITHA M Ot R06.00 DYSPNEA, UNSPECIFIED 06/03/2018 TAVIA DOSTARLALITHA M Ot J44.9 CHRONIC OBSTRUCTIVE PULMONARY DISEASE, U 06/03/2018 TAVIA DOSTARLALITHA M Ot J45.909 UNSPECIFIED ASTHMA, UNCOMPLICATED 06/03/2018 TAVIA DOSTARLALITHA M Ot R05 COUGH 06/03/2018 TAVIA DOSTARLALITHA M Ot R06.00 DYSPNEA, UNSPECIFIED 06/30/2018 TAVIA DOSTARLALITHA M Ot J44.9 CHRONIC OBSTRUCTIVE PULMONARY DISEASE, U 06/30/2018 TAVIA DO, LALITHA M Ot R05 COUGH 06/30/2018 TAVIA DOSTARLALITHA M Ot R06.00 DYSPNEA, UNSPECIFIED 07/01/2018 STAR SQUIRES DOSON M Ot J44.9 CHRONIC OBSTRUCTIVE PULMONARY DISEASE, U 07/01/2018 TAVIA DOSTARLALITHA M Ot R05 COUGH 07/01/2018 TAVIA DOSTARLALITHA M Ot R06.00 DYSPNEA, UNSPECIFIED 07/29/2018 STAR SQUIRES DOSON M Ot J44.9 CHRONIC OBSTRUCTIVE PULMONARY DISEASE, U 07/29/2018 TAVIA DO, LALITHA M Ot R05 COUGH 07/29/2018 TAVIA DO, LALITHA M Ot R06.00 DYSPNEA, UNSPECIFIED 08/03/2018 TAVIA DOSTARLALITHA M Ot J45.909 UNSPECIFIED ASTHMA, UNCOMPLICATED 08/03/2018 TAVIA DOSTARLALITHA M Ot R05 COUGH 08/03/2018 TAVIA DOSTARLALITHA M Ot R06.00 DYSPNEA, UNSPECIFIED 08/06/2018 STAR SQUIRES DOSON M Ot J45.909 UNSPECIFIED ASTHMA, UNCOMPLICATED 08/06/2018 TAVIA DOSTARLALITHA M Ot R05 COUGH 08/06/2018 TAVIA DOSTARLALITHA M Ot R06.00 DYSPNEA, UNSPECIFIED 08/27/2018 TAVIA DOSTARLALITHA M Ot J44.9 CHRONIC OBSTRUCTIVE PULMONARY DISEASE, U 08/27/2018 TAVIA DOSTARLALITHA M Ot R05 COUGH 08/27/2018 TAVIA DOSTARLALITHA M Ot R06.00 DYSPNEA, UNSPECIFIED 08/27/2018 TAVIA DOSTARLALITHA M Ot J44.9 CHRONIC OBSTRUCTIVE PULMONARY DISEASE, U 08/27/2018 TAVIA DOSTARLALITHA M Ot R05 COUGH 08/27/2018 STAR SQUIRES DOSON M Ot R06.00 DYSPNEA, UNSPECIFIED 08/27/2018 TAVIA DOSTARLALITHA M Ot J44.9 CHRONIC OBSTRUCTIVE PULMONARY DISEASE, U 08/27/2018 TAVIA DOSTARLALITHA M Ot R05 COUGH 08/27/2018 TAVIA DOSTARLALITHA M Ot R06.00 DYSPNEA, UNSPECIFIED 08/28/2018 STAR SQUIRES DOSON M Ot J44.9 CHRONIC OBSTRUCTIVE PULMONARY DISEASE, U 08/28/2018 TAVIA DOSTARLALITHA M Ot R05 COUGH 08/28/2018 TAVIA DOSTARLALITHA M Ot R06.00 DYSPNEA, UNSPECIFIED 09/04/2018 KARON BARKLEYI Missael BUNK ASSEMBLER Ot Z12.31 ENCNTR SCREEN MAMMOGRAM FOR MALIGNANT NE 09/24/2018 LALITHA SQUIRES DO M Ot J44.9 CHRONIC OBSTRUCTIVE PULMONARY DISEASE, U 09/24/2018 STAR SQUIRES DOSON M Ot J45.909 UNSPECIFIED ASTHMA, UNCOMPLICATED 09/24/2018 STAR SQUIRES DOSON M Ot R05 COUGH 09/24/2018 STAR SQUIRES DOSON M Ot R06.00 DYSPNEA, UNSPECIFIED 09/24/2018 TAVIA DOSTARLALITHA M Ot J44.9 CHRONIC OBSTRUCTIVE PULMONARY DISEASE, U 09/24/2018 STAR SQUIRES DOSON M Ot J45.909 UNSPECIFIED ASTHMA, UNCOMPLICATED 09/24/2018 TAVIA DOSTARLALITHA M Ot R05 COUGH 09/24/2018 TAVIA DOSTARLALITHA M Ot R06.00 DYSPNEA, UNSPECIFIED 10/13/2018 LALITHA SQUIRES DO M Ot J44.9 CHRONIC OBSTRUCTIVE PULMONARY DISEASE, U 10/13/2018 STAR SQUIRES DOSON M Ot J45.909 UNSPECIFIED ASTHMA, UNCOMPLICATED 10/13/2018 TAVIA DOSTARLALITHA M Ot R05 COUGH 10/13/2018 TAVIA DOSTARLALITHA M Ot R06.00 DYSPNEA, UNSPECIFIED 10/13/2018 TAVIA DOSTARLALITHA M Ot J44.9 CHRONIC OBSTRUCTIVE PULMONARY DISEASE, U 10/13/2018 TAVIA DOSTARLALITHA M Ot J45.909 UNSPECIFIED ASTHMA, UNCOMPLICATED 10/13/2018 TAVIA DOSTARLALITHA M Ot R05 COUGH 10/13/2018 TAVIA DOSTARLALITHA M Ot R06.00 DYSPNEA, UNSPECIFIED 10/22/2018 LALITHA SQUIRES DO Ot J44.9 CHRONIC OBSTRUCTIVE PULMONARY DISEASE, U 10/22/2018 LALITHA SQUIRES DO Ot R05 COUGH 10/22/2018 LALITHA SQUIRES DO Ot R06.00 DYSPNEA, UNSPECIFIED 10/22/2018 WERO BARKLEY ALANA Ot Z12.31 ENCNTR SCREEN MAMMOGRAM FOR MALIGNANT NE Procedures Code [place] [address] ROUTINE VENIPUNCTURE 10/26/2013 40223 XRAY CHEST 2 VIEW 10/26/2013 J3301 KENALOG INJ, PER 10 MG 10/26/2013 07949 LIPID PANEL 10/26/2013 81885 CBC 10/26/2013 4971131 GFR CALC (RESULT ONLY) 10/26/2013 32050 CMP 10/26/2013 98548 UA LONG DIP 06/14/2014 65783 MAMMOGRAM, SCREENING 08/18/2014 84430 XRAY CHEST 2 VIEW 02/17/2015 Results Test Result Range Influenza virus A and B antigen detection - 09/24/16 12:47 FLU RESULT NEGATIVE FOR INFLUENZA A AND B ANTIGENS BY IA NRG TSH - 12/18/17 14:03 TSH 4.04 mIU/L 0.40-4.50 Encounters ACCT No. Visit Date/Time Discharge Status Pt. Type Provider Facility Loc./Unit Complaint [id number] 02/11/2015 08:47:00 02/11/2015 23:59:59 CLS Outpatient DI SHUKLA DO [id number] 12/07/2014 11:27:00 12/07/2014 23:59:59 CLS Outpatient DI SHUKLA DO [id number] 11/16/2014 10:08:00 11/16/2014 23:59:59 CLS Outpatient DI SHUKLA DO [id number] 08/18/2014 10:57:00 08/18/2014 23:59:59 CLS Outpatient THEO GRIER APRN [id number] 07/29/2014 08:22:00 07/29/2014 23:59:59 CLS Outpatient DI SHUKLA DO [id number] 06/24/2014 11:38:00 06/24/2014 23:59:59 CLS Outpatient DI SHUKLA DO [id number] 06/14/2014 12:13:00 06/14/2014 23:59:59 CLS Outpatient DI SHUKLA DO [id number] 03/24/2014 08:25:00 03/24/2014 23:59:59 CLS Outpatient DI SHUKLA DO [id number] 12/10/2013 15:55:00 12/10/2013 23:59:59 CLS Outpatient BEBETO COLEMANTARIQ Mena [id number] 11/12/2013 13:29:00 11/12/2013 23:59:59 CLS Outpatient DI SHUKLA DO [id number] 10/26/2013 11:48:00 10/26/2013 23:59:59 CLS Outpatient DI SHUKLA DO Nick [id number] 10/23/2013 00:00:00 10/23/2013 23:59:59 CLS Outpatient TATE BUNK ASSEMBLERTARIQ Mena [id number] 09/23/2013 09:40:00 09/23/2013 23:59:59 CLS Outpatient DI SHUKLA DO Nick [id number] 08/19/2013 09:31:00 08/19/2013 23:59:59 CLS Outpatient DI SHUKLA DO Nick [id number] 12/29/2012 10:08:00 12/29/2012 23:59:59 CLS Outpatient [id number] 11/07/2012 09:34:00 11/07/2012 23:59:59 CLS Outpatient [id number] 10/08/2012 08:58:00 10/08/2012 23:59:59 CLS Outpatient TATE TARIQ WARNER [id number] 09/08/2012 09:51:00 09/08/2012 23:59:59 CLS Outpatient TATETARIQ Rojo APRN [id number] 07/21/2013 08:46:00 Document Registration [id number] 07/07/2013 08:45:00 Document Registration [id number] 06/05/2013 00:00:00 Document Registration [id number] 04/15/2013 10:45:00 Document Registration [id number] 03/13/2013 09:40:00 Document Registration [id number] 02/19/2013 10:11:00 Document Registration [id number] 10/22/2018 10:00:00 10/22/2018 23:59:59 CLS Preadmit LALITHA SQUIRES DO [facility] J45.909 ASTHMA [id number] 09/24/2018 11:37:00 09/24/2018 23:59:59 CLS Outpatient LALITHA SQUIRES DO [facility] J45.909 ASTHMA [id number] 09/02/2018 09:26:00 09/02/2018 23:59:59 CLS Outpatient WERO BARKLEY APRN [facility] RAD SCREENING [id number] 07/31/2018 12:33:00 08/03/2018 00:01:00 DIS Outpatient LALITHA SQUIRES DO [facility] J45.909 ASTHMA [id number] 07/02/2018 13:00:00 07/02/2018 23:59:59 CLS Preadmit LALITHA SQUIRES DO [facility] ASHTMA,COPD,ALLERGIC RHINITIS [id number] 06/30/2018 12:51:00 07/01/2018 00:01:00 DIS Outpatient LALITHA SQUIRES DO [facility] ASHA,COPD,ALLERGIC RHINITIS [id number] 03/05/2018 12:07:00 03/11/2018 00:01:00 [facility] [id number] 11/12/2017 13:18:00 11/17/2017 00:01:00 DIS Outpatient LALITHA SQUIRES DO [facility] ASHA,COPD,ALLERGIC RHINITIS [id number] 10/20/2017 18:35:00 10/20/2017 20:04:00 DIS Emergency KERVIN LIAO DO [facility] ER R SHOULDER/ARM PAIN [id number] 07/22/2017 11:22:00 08/03/2017 00:01:00 DIS Outpatient LALITHA SQUIRES DO [facility] ASHA,COPD,ALLERGIC RHINITIS [id number] 04/26/2017 10:53:00 05/23/2017 00:01:00 DIS Outpatient LALITHA SQUIRES DO [facility] ASHTMA,COPD,ALLERGIC RHINITIS [id number] 01/22/2017 13:47:00 01/24/2017 00:01:00 DIS Outpatient LALITHA SQUIRES DO [facility] ASHTMA,COPD,ALLERGIC RHINITIS [id number] 12/29/2016 13:52:00 12/29/2016 14:56:00 DIS Emergency LEENILA APRN [facility] ER L HIP AND BACK PAIN [id number] 09/28/2016 11:08:00 10/02/2016 00:01:00 DIS Outpatient LALITHA SQUIRES DO [facility] ASHTMA,COPD,ALLERGIC RHINITIS [id number] 09/24/2016 11:34:00 09/24/2016 14:09:00 DIS Emergency OBDULIO FOSTER MD [facility] ER COUGH/CHEST CONGESTION [id number] 09/04/2016 13:47:00 09/04/2016 23:59:59 CLS Outpatient YVETTE ROSA [facility] RAD SCREENING [id number] 06/19/2016 19:03:00 06/19/2016 21:03:00 DIS Emergency SITA CLARKE [facility] ER R KNEE PAIN [id number] 06/06/2016 11:50:00 06/12/2016 00:01:00 DIS Outpatient LALITHA SQUIRES DO [facility] ASHA,COPD,ALLERGIC RHINITIS [id number] 02/15/2016 10:42:00 02/21/2016 00:01:00 DIS Outpatient LALITHA SQUIRES DO [facility] ASHA,COPD,ALLERGIC RHINITIS [id number] 01/28/2016 00:20:00 01/28/2016 02:26:00 DIS Emergency KERVIN LIAO DO [facility] ER VOMITING [id number] 10/26/2015 12:54:00 10/26/2015 23:59:59 CLS Outpatient LALITHA SQUIRES DO [facility] ASHTMA,COPD,ALLERGIC RHINITIS [id number] 08/24/2015 10:43:00 08/24/2015 23:59:59 CLS Outpatient THEO GRIER BUNK ASSEMBLER [facility] RAD SCREENING [id number] 08/08/2015 19:29:00 08/08/2015 22:16:00 DIS Emergency LUZ GOSS MD [facility] ER R SHOULDER PAIN [id number] 06/17/2015 10:57:00 06/17/2015 11:07:00 DIS Outpatient LALITHA SQUIRES DO [facility] SLEEP EDS, SNORING, GASPING DURING SLEEP [id number] 06/06/2015 14:10:00 06/06/2015 23:59:59 CLS Outpatient LALITHA SQUIRES DO [facility] RT COPD ASTHMA OBESITY [id number] 05/24/2015 15:10:00 05/24/2015 23:59:59 CLS Outpatient LALITHA SQUIRES DO [facility] LAB COPD,ASTHMA,OBESITY [id number] 05/07/2015 18:53:00 05/07/2015 19:25:00 DIS Emergency NILA LEE APRN [facility] ER DOG BITES INFECTED [id number] 05/02/2015 13:43:00 05/02/2015 15:21:00 DIS Emergency NILA LEE BUNK ASSEMBLER [facility] ER MULTIPLE DOG BITES [id number] 04/17/2015 18:59:00 04/17/2015 20:13:00 DIS Emergency NILA LEE APRN [facility] ER COUGH;SOA [id number] 04/01/2015 13:52:00 04/01/2015 23:59:59 CLS Outpatient KEON BELLO MD (DDU) [facility] RAD [id number] 03/21/2015 08:59:00 03/21/2015 23:59:59 CLS Outpatient TARIQ TATE CFNP [facility] RAD COUGH [id number] 02/16/2015 12:16:00 02/16/2015 23:59:59 CLS Outpatient TARIQ TATE CFNP [facility] RAD COPD W/PERSISTENT COUGH [id number] 02/03/2015 15:02:00 02/03/2015 17:21:00 DIS Emergency NILA LEE APRN [facility] ER FALL, BACK/TAILBONE PAIN [id number] 08/23/2014 11:24:00 08/23/2014 23:59:59 CLS Outpatient THEO GRIER BUNK ASSEMBLER [facility] RAD SCREENING [id number] 07/28/2014 20:35:00 07/28/2014 23:27:00 DIS Emergency SITA CLARKE [facility] ER HEADACHE [id number] 06/08/2014 19:24:00 06/08/2014 20:38:00 DIS Emergency NILA LEE APRN [facility] ER L SIDE/BACK PAIN [id number] 08/17/2013 09:03:00 08/17/2013 23:59:59 CLS Outpatient HERNANDEZCANDIE [facility] RAD ROUTINE [id number] 08/24/2015 10:43:00 Document Registration [id number] 12/26/2014 12:34:00 Document Registration [id number] 09/17/2014 11:01:00 Document Registration [id number] 09/17/2014 11:01:00 Document Registration [id number] 10/14/2018 13:40:00 10/14/2018 23:59:59 CLS Outpatient TARIQ TATE APRN [facility] [id number] 12/18/2017 13:00:00 Document Registration
--- NOTE | 2018-11-11 17:11 | Diagnostic Imaging Report ---
INDICATION: Fall with laceration to the knee. TIME OF EXAM: 05:23 p.m. FINDINGS: Three views of the right knee demonstrate medial and patellofemoral compartmental degenerative change. Articular surfaces are smooth. No fracture, dislocation, or effusion is seen. IMPRESSION: Degenerative changes. No acute bony abnormality is detected. Dictated by: Dictated on workstation # [id number]
--- NOTE | 2018-11-11 17:13 | Diagnostic Imaging Report ---
PATIENT HISTORY: Fall, pain to posterior elbow. TECHNIQUE: Three views of the left elbow. COMPARISON: None. FINDINGS: No acute fracture or dislocation is seen in the left elbow. Alignment appears normal. Joint spaces are preserved. There is no significant left elbow joint effusion. IMPRESSION: No acute osseous abnormality is seen in the left elbow. Dictated by: Dictated on workstation # [id number]
--- NOTE | 2018-11-11 17:15 | Diagnostic Imaging Report ---
INDICATION: Fall. TIME OF EXAM: 05:24 p.m. FINDINGS: Frontal and lateral views of the right tibia and fibula were obtained. Alignment at the knee and ankle appears normal. The tibia and fibula appear intact. No fractures are seen. Soft tissues are unremarkable. IMPRESSION: No acute abnormality is detected. Dictated by: Dictated on workstation # [id number]
--- NOTE | 2018-11-11 17:39 | ED Fall/Injury ---
General Chief Complaint: Trauma-Non Activation Stated Complaint: FELL Nursing Triage Note: PT BROUGHT IN BY [facility] WITH COMPLAINT OF FALL. PT STATES SHE WAS WALKING OUT OF THE [place] QUICK STOP AND TRIPPED GOING DOWN THE STEP. PT IS COMPLAINING OF RIGHT LEG PAIN AND LEFT ELBOW. DENIES NECK PAIN. Source: patient, EMS Exam Limitations: no limitations History of Present Illness Date Seen by Provider: Nov 11, 2018 Time Seen by Provider: 17:41 Initial Comments To ER per [facility] ambulance service after she fell at a gas station and [facility]. She did not hit her head and denies any neck pain. Fire department on scene did apply rigid cervical collar. She has an abrasion to the anterior right knee, hematoma to the right anterior lower leg, abrasion to the dorsal left elbow. No other complaints of pain. Tetanus is up-to-date. No other injury. Occurred: just prior to arrival Severity: mild Injuries/Pain Location: upper extremity, lower extremity Context: tripped Loss of Consciousness: no loss of consciousness Associated Symptoms (Fall): No Abdominal Pain, No Chest Pain, No Confusion, No Dizziness, No Headache, No Lightheadedness, No Muscle Spasms, No Nausea/Vomiting , No Neck Pain, No Ringing in Ears, No Seizures, No Shortness of Air, No Slurred Speech Allergies and Home Medications Allergies Coded Allergies: Sulfa (Sulfonamide Antibiotics) (Unverified Allergy, Unknown, 06/08/14) Home Medications Albuterol 8.5 Gm Hfa.aer.ad, 1 PUFF IH Q4H PRN for SHORTNESS OF BREATH, ( Reported) 1 PUFFS Albuterol Sulfate 2.5 Mg/3 Ml Vial.neb, 2.5 MG IH Q4H PRN for SHORTNESS OF BREATH Prescribed by: OBDULIO BAUGH on 09/24/16 1352 Azelastine Hcl 137 Mcg [place].pump, 2 SPRAYS NS BID, (Reported) Cetirizine Hcl 10 Mg Capsule, 10 MG PO DAILY, (Reported) Chlorzoxazone 500 Mg Tablet, 500 MG PO TID, (Reported) Diphenhydramine Hcl 25 Mg Tablet, 1 EACH PO HS, (Reported) Fluticasone Propionate 16 Gm [place].susp, 16 GM NS BID, (Reported) Fluticasone/Salmeterol 1 Each Disk.w.dev, 0 IH BID, (Reported) 1 PUFF Gabapentin 300 Mg Capsule, 300 MG PO DAILY, (Reported) Ibuprofen 800 Mg Tablet, 800 MG PO Q8H PRN for PAIN, (Reported) Montelukast Sodium 10 Mg Tablet, 1 TAB PO DAILY, (Reported) Omalizumab 150 Mg Ana, 150 MG SQ UD, (Reported) Omeprazole 20 Mg Capsule.dr, 40 MG PO BID, (Reported) Tiotropium [place] 1 Inh Aerp, 1 INH IH DAILY, (Reported) Tramadol HCl 50 Mg Tablet, 50 MG PO Q4H PRN for PAIN Prescribed by: SITA VERDUZCO on 06/19/162055 Patient Home Medication List Home Medication List Reviewed: Yes Review of Systems Review of Systems Constitutional: see HPI Eyes: No Symptoms Reported Ears, Nose, Mouth, Throat: no symptoms reported Respiratory: no symptoms reported Cardiovascular: no symptoms reported Genitourinary: no symptoms reported Musculoskeletal: see HPI Skin: see HPI Past Hbypfxi-Nvexqk-Arlxxw Hx Patient Social History Alcohol Use: Denies Use Recreational Drug Use: No Smoking Status: Never a Smoker 2nd Hand Smoke Exposure: No Recent Foreign Travel: No Contact w/Someone Who Travel: No Recent Infectious Disease Expo: No Recent Hopitalizations: No Immunizations Up To Date Tetanus Booster (TDap): Unknown Date of Influenza Vaccine: Aug 06, 2016 Seasonal Allergies Seasonal Allergies: Yes Past Medical History Surgeries: Yes (HIATAL HERNIA REPAIR, CARPAL TUNNEL) Abdominal, Appendectomy, Gallbladder, Hysterectomy, Orthopedic Respiratory: Yes Asthma, COPD Currently Using CPAP: No Currently Using BIPAP: No Cardiac: No Neurological: No 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 Disorders: No [employer] History: Hysterectomy, Menopausal Genitourinary: No Gastrointestinal: Yes Gastroesophageal Reflux Musculoskeletal: Yes (OSTEOARTHRITIS) Arthritis Endocrine: No HEENT: No Loss of Vision: Bilateral Hearing Impairment: Denies Cancer: No Psychosocial: Yes Depression Integumentary: No Blood Disorders: No Adverse Reaction/Blood Tranf: No Physical Exam Vital Signs Vital Signs - First Documented 11/11/18 16:38 Pulse 69 Resp 20 B/P (MAP) 129/75 (93) Pulse Ox 96 O2 Delivery Room Air Capillary Refill : Less Than 3 Seconds Height, Weight, BMI Height: 5'3.00" Weight: 170lbs. 5.3oz. 77.989300va; 27.0 BMI Method:Stated General Appearance: WD/WN, no apparent distress HEENT: PERRL/EOMI, normal ENT inspection, TMs normal Neck: non-tender, full range of motion, other (I remove the rigid cervical collar upon arrival to ER. She is able to flex her chin to chest and turn to either direction without pain. She has no paresthesias.) Respiratory: chest non-tender, lungs clear, normal breath sounds Gastrointestinal: normal bowel sounds, non tender, soft Neurologic/Psychiatric: alert, normal mood/affect, oriented x 3 Skin: normal color, warm/dry, other (there is an abrasion to the right anterior knee. A small quarter-sized hematoma to the right anterior lower leg. Small abrasion to the posterior left elbow.) Mariaelena Coma Score Best Eye Response: (4) Open Spontaneously Best Verbal Response: (5) Oriented Best Motor Response: (6) Obeys Commands Mariaelena Total: 15 Progress/Results/Core Measures Results/Orders My Orders Orders - NILA LEE APRN Tibia/Fibula, Right, 2 Views (11/11/18 16:41) Knee, Right, 3 Views (11/11/18 16:41) Elbow, Left, 3 Views (11/11/18 16:41) Vital Signs/I&O 11/11/18 16:38 Pulse 69 Resp 20 B/P (MAP) 129/75 (93) Pulse Ox 96 O2 Delivery Room Air Blood Pressure Mean: 93 Departure Impression Primary Impression: Abrasion Additional Impression: Hematoma Disposition: 01 HOME, SELF-CARE Condition: Stable Departure-Patient Inst. Decision time for Depature: 17:43 Referrals: [facility] (PCP/Family) Primary Care Physician Patient Instructions: Skin Abrasions (DC) Add. Discharge Instructions: 1. Return to ER for any redness swelling or other concerns. Follow-up with your doctor next week. All discharge instructions reviewed with patient and/or family. Voiced understanding. NILA LEE APRN Nov 11, 2018 17:39
[2018-11-11 18:00] VITALS: BP 129/75
== END 2018-11-11 18:00 | disposition home or self-care (01) ==
LOC: EDUNIT# 16:38 → ER 16:39
DX: S80.11XA Contusion of right lower leg, initial encounter (principal); S50.02XA Contusion of left elbow, initial encounter; S80.01XA Contusion of right knee, initial encounter; J44.9 Chronic obstructive pulmonary disease, unspecified; K21.9 Gastro-esophageal reflux disease without esophagitis; F32.9 Major depressive disorder, single episode, unspecified; R40.2142 Coma scale, eyes open, spontaneous, at arrival to emergency department; R40.2252 Coma scale, best verbal response, oriented, at arrival to emergency department; R40.2362 Coma scale, best motor response, obeys commands, at arrival to emergency department; Z88.2 Allergy status to sulfonamides; Z79.51 Long term (current) use of inhaled steroids; Z98.890 Other specified postprocedural states; Z90.49 Acquired absence of other specified parts of digestive tract; Z90.710 Acquired absence of both cervix and uterus; W10.8XXA Fall (on) (from) other stairs and steps, initial encounter; Y92.524 Gas station as the place of occurrence of the external cause
CPT/HCPCS: 73080; 73562; 73590

== ENCOUNTER 2019-07-02 14:38 | Emergency (ER) | payer SELFPAY ==
[~2019-07-02] VITALS: Ht 157.5 cm; Wt 80.3 kg
--- NOTE | 2019-07-02 15:09 | ED Upper Extremity ---
General Chief Complaint: Upper Extremity Stated Complaint: R SHOULDER PAIN Nursing Triage Note: PATIENT STATES THAT SHE HAS BEEN HAVING SHOULDER PAIN FOR 3 DAYS. SHE DOES NOT RECALL ANY INJURY. Nursing Sepsis Screen: No Definite Risk Source: patient Exam Limitations: no limitations History of Present Illness Date Seen by Provider: Jul 02, 2019 Time Seen by Provider: 15:08 Initial Comments To ER with reports of right shoulder pain for 3 days no known injury. Limited range of motion of the shoulder because of the severe pain. Pain is worsened with any movement. No fevers or chills. No falls or trauma. Onset: just prior to arrival Severity: moderate Pain/Injury Location: right shoulder Method of Injury: unknown Modifying Factors: Improves With Movement Allergies and Home Medications Allergies Coded Allergies: Sulfa (Sulfonamide Antibiotics) (Unverified Allergy, Unknown, 06/08/14) Home Medications Albuterol 8.5 Gm Hfa.aer.ad, 1 PUFF IH Q4H PRN for SHORTNESS OF BREATH, (R eported) 1 PUFFS Albuterol Sulfate 2.5 Mg/3 Ml Vial.neb, 2.5 MG IH Q4H PRN for SHORTNESS OF BREATH Prescribed by: OBDULIO BAUGH on 09/24/16 1352 Azelastine Hcl 137 Mcg [place].pump, 2 SPRAYS NS BID, (Reported) Cetirizine Hcl 10 Mg Capsule, 10 MG PO DAILY, (Reported) Chlorzoxazone 500 Mg Tablet, 500 MG PO TID, (Reported) Diphenhydramine Hcl 25 Mg Tablet, 1 EACH PO HS, (Reported) Fluticasone Propionate 16 Gm [place].susp, 16 GM NS BID, (Reported) Fluticasone/Salmeterol 1 Each Disk.w.dev, 0 IH BID, (Reported) 1 PUFF Gabapentin 300 Mg Capsule, 300 MG PO DAILY, (Reported) Ibuprofen 800 Mg Tablet, 800 MG PO Q8H PRN for PAIN, (Reported) Montelukast Sodium 10 Mg Tablet, 1 TAB PO DAILY, (Reported) Naproxen 500 Mg Tablet.dr, 500 MG PO PRN PRN for PAIN-MODERATE Prescribed by: NILA LEE on 07/02/19 1533 Omalizumab 150 Mg Ana, 150 MG SQ UD, (Reported) Omeprazole 20 Mg Capsule.dr, 40 MG PO BID, (Reported) Tiotropium [place] 1 Inh Aerp, 1 INH IH DAILY, (Reported) Tramadol HCl 50 Mg Tablet, 50 MG PO Q4H PRN for PAIN Prescribed by: SITA VERDUZCO on 06/19/162055 Patient Home Medication List Home Medication List Reviewed: Yes Review of Systems Constitutional: see HPI EENTM: see HPI Respiratory: no symptoms reported Cardiovascular: no symptoms reported Genitourinary: no symptoms reported Musculoskeletal: see HPI Skin: no symptoms reported Psychiatric/Neurological: No Symptoms Reported Past Abglutw-Lgsqyx-Xfaati Hx Patient Social History Alcohol Use: Denies Use Recreational Drug Use: No Smoking Status: Never a Smoker 2nd Hand Smoke Exposure: No Recent Foreign Travel: No Contact w/Someone Who Travel: No Recent Infectious Disease Expo: No Recent Hopitalizations: No Immunizations Up To Date Tetanus Booster (TDap): Unknown Date of Influenza Vaccine: Aug 06, 2016 Seasonal Allergies Seasonal Allergies: Yes Past Medical History Surgeries: Yes (HIATAL HERNIA REPAIR, CARPAL TUNNEL) Abdominal, Appendectomy, Gallbladder, Hysterectomy, Orthopedic Respiratory: Yes Asthma, COPD Currently Using CPAP: No Currently Using BIPAP: No Cardiac: No Neurological: No 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 0oz. [id number]; 27.0 BMI Method:Actual General Appearance: WD/WN, no apparent distress HEENT: PERRL/EOMI, normal ENT inspection Respiratory: no respiratory distress, no accessory muscle use Gastrointestinal: normal bowel sounds, non tender, soft Shoulder: normal inspection, limited ROM, pain Elbow/Forearm: normal inspection, non-tender Hand: normal inspection, non-tender Neurologic/Psychiatric: alert, normal mood/affect, oriented x 3 Skin: normal color ( she passed out or name or anything about), warm/dry Progress/Results/Core Measures Results/Orders My Orders Orders - NILA LEE APRN Shoulder, Right, 3 Views (07/02/19 15:05) Vital Signs/I&O 07/02/19 14:41 Temp 97.5 Pulse 76 Resp 18 B/P (MAP) 136/82 (100) Pulse Ox 98 Blood Pressure Mean: 100 Departure Impression Primary Impression: Internal derangement of right shoulder Disposition: 01 HOME, SELF-CARE Condition: Stable Departure-Patient Inst. Decision time for Depature: 15:31 Referrals: [facility] [place] (PCP/Family) Primary Care Physician Patient Instructions: NO INSTRUCTIONS GIVEN Add. Discharge Instructions: 1. Medication as directed 2. Return to ER for any concerns 3. If pain persists into next week or your family doctor to discuss obtaining an MRI of the shoulder. All discharge instructions reviewed with patient and/or family. Voiced understanding. Scripts Naproxen (Naproxen) 500 Mg Tablet. 500 MG PO PRN PRN for PAIN-MODERATE, #20 TAB Prov: NILA LEE APRN 07/02/19 NILA LEE APRN Jul 02, 2019 15:09
[2019-07-02] MEDS ORDERED: NAPR500T8 PO (15:33)
--- NOTE | 2019-07-02 15:39 | Diagnostic Imaging Report ---
EXAMINATION: Right shoulder, three views. INDICATION: Right shoulder pain. No evidence of injury. COMPARISON: 10/20/2017. FINDINGS: No fracture or acute osseous abnormality. Bony alignment is maintained. The humeral head is well seated in the glenohumeral joint. Acromioclavicular joint is intact. Soft tissues are unremarkable. IMPRESSION: No acute fracture or dislocation. Dictated by: Dictated on workstation # [id number]
[2019-07-02 15:59] VITALS: BP 136/82
== END 2019-07-02 16:02 | disposition home or self-care (01) ==
LOC: EDUNIT# 14:38 → ER 14:39
DX: M24.111 Other articular cartilage disorders, right shoulder (principal); J44.9 Chronic obstructive pulmonary disease, unspecified; F32.9 Major depressive disorder, single episode, unspecified; K21.9 Gastro-esophageal reflux disease without esophagitis; Z90.710 Acquired absence of both cervix and uterus; Z90.49 Acquired absence of other specified parts of digestive tract; Z88.2 Allergy status to sulfonamides; Z79.51 Long term (current) use of inhaled steroids
CPT/HCPCS: 73030

== ENCOUNTER 2019-07-10 01:26 | Emergency (ER) | payer SELFPAY ==
[~2019-07-10] VITALS: Ht 157.5 cm; Wt 80.3 kg
[~2019-07-10 01:26] MED LIST changes: +NAPR500T8 PO
--- NOTE | 2019-07-10 01:31 | NUR ---
pt to rm 7 c/o right shoulder pain since 06/26/19. denies injury. seen pcp 07/07/19 for same. reports pain increasing. pt wearing sling at this time.
[2019-07-10] MEDS ORDERED: RX-CYCLOBENZAPRINE 10 MG (FLEXERIL) TAB PPK#3 PO STA (01:40)
[2019-07-10] MEDS ORDERED: METH4TAB PO (01:44)
[2019-07-10] MEDS ORDERED: CYCL10TA9 PO (01:44)
--- NOTE | 2019-07-10 01:44 | ED Upper Extremity ---
General Chief Complaint: Upper Extremity Stated Complaint: RT SHOULDER PAIN Nursing Triage Note: right shoulder pain since 06/26/19, denies injury. Nursing Sepsis Screen: No Definite Risk Source: patient, old records History of Present Illness Date Seen by Provider: Jul 10, 2019 Time Seen by Provider: 01:32 Initial Comments PT ARRIVES VIA POV FROM HOME, WEARING A SLING ON RIGHT ARM C/O RIGHT SHOULDER PAIN SINCE 06/26/19 NO INJURY NO PRIOR PROBLEMS WITH THIS SHOULDER NO RADIATION OF PAIN NO PARESTHESIAS OR MOTOR DEFICITS PAIN IS MUCH WORSE WITH ANY MOVEMENTS PT IS RIGHT HANDED SEEN HERE 06/30/19 FOR THIS PROBLEM--XRAYS WERE READ NORMAL, PT PLACED IN A SLING AND GIVEN RX FOR NAPROXEN SEEN BY [facility] AT [facility] ON 07/07/19 AND XRAYS TAKEN AGAIN AND REPORTEDLY NORMAL. NO ADDITIONAL RX HAS FOLLOW UP APPOINTMENT 07/21/19 PT MOSTLY TALKS ABOUT HER WHO 01/03/19, AND DOES NOT MENTION HER SHOULDER PAIN FOR REMAINDER OF ER STAY PCP: [facility] Allergies and Home Medications Allergies Coded Allergies: Sulfa (Sulfonamide Antibiotics) (Unverified Allergy, Unknown, 06/08/14) Home Medications Albuterol 8.5 Gm Hfa.aer.ad, 1 PUFF IH Q4H PRN for SHORTNESS OF BREATH, (Reported) 1 PUFFS Albuterol Sulfate 2.5 Mg/3 Ml Vial.neb, 2.5 MG IH Q4H PRN for SHORTNESS OF BREATH Prescribed by: OBDULIO BAUGH on 09/24/16 1352 Azelastine Hcl 137 Mcg [place].pump, 2 SPRAYS NS BID, (Reported) Cetirizine Hcl 10 Mg Capsule, 10 MG PO DAILY, (Reported) Chlorzoxazone 500 Mg Tablet, 500 MG PO TID, (Reported) Cyclobenzaprine HCl 10 Mg Tablet, 10 MG PO Q8H Prescribed by: KERVIN LIAO on 07/10/19 0144 Diphenhydramine Hcl 25 Mg Tablet, 1 EACH PO HS, (Reported) Fluticasone Propionate 16 Gm [place].susp, 16 GM NS BID, (Reported) Fluticasone/Salmeterol 1 Each Disk.w.dev, 0 IH BID, (Reported) 1 PUFF Gabapentin 300 Mg Capsule, 300 MG PO DAILY, (Reported) Ibuprofen 800 Mg Tablet, 800 MG PO Q8H PRN for PAIN, (Reported) Methylprednisolone 4 Mg Tab.ds.pk, 4 MG PO UD Prescribed by: KERVIN LIAO on 07/10/19 0144 Montelukast Sodium 10 Mg Tablet, 1 TAB PO DAILY, (Reported) Naproxen 500 Mg Tablet.dr, 500 MG PO PRN PRN for PAIN-MODERATE Prescribed by: NILA LEE on 07/02/19 1533 Omalizumab 150 Mg Ana, 150 MG SQ UD, (Reported) Omeprazole 20 Mg Capsule.dr, 40 MG PO BID, (Reported) Tiotropium [place] 1 Inh Aerp, 1 INH IH DAILY, (Reported) Tramadol HCl 50 Mg Tablet, 50 MG PO Q4H PRN for PAIN Prescribed by: SITA VERDUZCO on 06/19/162055 Patient Home Medication List Home Medication List Reviewed: Yes Review of Systems Constitutional: no symptoms reported Respiratory: no symptoms reported; No short of breath Cardiovascular: no symptoms reported; No chest pain Gastrointestinal: no symptoms reported Genitourinary: no symptoms reported Musculoskeletal: see HPI; No back pain; joint pain (RIGHT SHOULDER); No neck pain Skin: no symptoms reported Psychiatric/Neurological: No Symptoms Reported; Denies Numbness, Denies Paresthesia, Denies Tingling, Denies Weakness Past Rwmwvec-Xcfshb-Sxyeng Hx Patient Social History Alcohol Use: Denies Use Recreational Drug Use: No Smoking Status: Never a Smoker 2nd Hand Smoke Exposure: No Recent Foreign Travel: No Contact w/Someone Who Travel: No Recent Infectious Disease Expo: No Recent Hopitalizations: No Physical Abuse: No Sexual Abuse: No Mistreated: No Fear: No Immunizations Up To Date Tetanus Booster (TDap): Unknown Date of Influenza Vaccine: Aug 06, 2016 Seasonal Allergies Seasonal Allergies: Yes Past Medical History Surgeries: Yes (HIATAL HERNIA REPAIR, CARPAL TUNNEL) Abdominal, Appendectomy, Gallbladder, Hysterectomy, Orthopedic Respiratory: Yes Asthma, COPD Currently Using CPAP: No Currently Using BIPAP: No Cardiac: No Neurological: No : No 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 Disorders: No 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 0oz. 80.928336gy; 27.0 BMI Method:Stated General Appearance: WD/WN, no apparent distress, other (VERY MALODOROUS, AND IS COVERED IN ANIMAL HAIR) Neck: non-tender, full range of motion, supple, normal inspection Cardiovascular: normal peripheral pulses, regular rate, rhythm, no edema, no JVD, no murmur Respiratory: chest non-tender, normal breath sounds, no respiratory distress, no accessory muscle use Gastrointestinal: non tender, soft Back: normal inspection, no CVA tenderness, no vertebral tenderness Shoulder: no evidence of injury; No asymmetry; bone tenderness; No deformity; limited ROM, pain, soft tissue tenderness; No swelling Elbow/Forearm: normal inspection, non-tender, no evidence of injury, normal ROM Wrist: Yes normal inspection, Yes non-tender, Yes no evidence of injury, Yes normal ROM Hand: normal inspection, non-tender, no evidence of injury, normal ROM Neurologic/Tendon: normal sensation, normal motor functions, normal tendon functions Neurologic/Psychiatric: services host II-XII nml as tested, no motor/sensory deficits, alert, normal mood/affect, oriented x 3 Skin: normal color, warm/dry; No rash Progress/Results/Core Measures Results/Orders My Orders Orders - KERVIN LIAO DO Ketorolac Injection (Toradol Injection) (07/10/19 01:45) Rx-Cyclobenzaprine Tablet (Rx-Flexeril T (07/10/19 01:40) Vital Signs/I&O 07/10/19 01:31 Temp 97.9 Pulse 79 Resp 18 B/P (MAP) 132/93 (106) Pulse Ox 97 O2 Delivery Room Air Blood Pressure Mean: 106 Progress Progress Note : Progress Note REVIEWED XRAYS AND REPORT FROM 06/30/19--READ NORMAL BY RADIOLOGIST Departure Impression Primary Impression: Right shoulder pain Disposition: 01 HOME, SELF-CARE Condition: Stable Departure-Patient Inst. Referrals: [facility] (PCP) Primary Care Physician DEUCE RUIZ MD Patient Instructions: How to Use a Shoulder Sling, Shoulder Pain (DC) Add. Discharge Instructions: STOP NAPROXEN ALTERNATE ICE AND HEAT TO AREA AT 20 MINUTE INTERVALS WEAR SLING NEEDED FOR COMFORT FOLLOW UP WITH DR. RUIZ FOR FURTHER CARE--CALL IN AM TO MAKE AN APPOINTMENT All discharge instructions reviewed with patient and/or family. Voiced understanding. Scripts Cyclobenzaprine HCl (Cyclobenzaprine HCl) 10 Mg Tablet 10 MG PO Q8H, #15 TAB Prov: KERVIN LIAO DO 07/10/19 Methylprednisolone (Medrol) 4 Mg Tab.ds.pk 4 MG PO UD, #1 PKG Prov: KERVIN LIAO DO 07/10/19 KERVIN LIAO DO Jul 10, 2019 01:44
[2019-07-10] MEDS ORDERED: KETOROLAC 60 MG/2 ML VIAL IM ONE (01:45)
[2019-07-10 01:53] VITALS: BP 132/93
== END 2019-07-10 01:56 | disposition home or self-care (01) ==
LOC: EDUNIT# 01:26 → ER 01:29
DX: M25.511 Pain in right shoulder (principal); J44.9 Chronic obstructive pulmonary disease, unspecified; K21.9 Gastro-esophageal reflux disease without esophagitis; F32.9 Major depressive disorder, single episode, unspecified; Z88.2 Allergy status to sulfonamides; Z98.890 Other specified postprocedural states; Z90.49 Acquired absence of other specified parts of digestive tract; Z90.710 Acquired absence of both cervix and uterus
CPT/HCPCS: 96372; 99284

== ENCOUNTER 2019-07-23 07:20 | Inpatient (IN) | payer OTHER ==
[~2019-07-23] VITALS: Ht 160.2 cm; Wt 86.3 kg
[2019-07-23] MEDS ORDERED: ACETAMINOPHEN 500 MG TAB (TYLENOL) ONE (07:32)
[2019-07-23] MEDS ORDERED: LACTATED RINGERS 1,000 ML IV ONE ×2 (07:32→07:38)
[2019-07-23] MEDS ORDERED: ACETAMINOPHEN 500 MG TAB (TYLENOL) PO PRN (07:45)
[2019-07-23 07:50] LABS: BASOPHILS % (AUTO) 0 % (0-10); EOSINOPHILS % (AUTO) 0 % (0-10); HEMATOCRIT 43 % (35-52); HEMOGLOBIN 14.1 G/DL (11.5-16.0); LYMPHOCYTES # (AUTO) 0.8 X 10^3 (1.0-4.0); LYMPHOCYTES % (AUTO) 11 % (12-44); MEAN CORPUSCULAR HEMOGLOBIN 29 PG (25-34); MEAN CORPUSCULAR HGB CONC 33 G/DL (32-36); MEAN CORPUSCULAR VOLUME 89 FL (80-99); MEAN PLATELET VOLUME 10.3 FL (7.4-10.4); MONOCYTES # (AUTO) 0.2 X 10^3 (0.0-1.0); MONOCYTES % (AUTO) 2 % (0-12); NEUTROPHILS # (AUTO) 6.4 X 10^3 (1.8-7.8); NEUTROPHILS % (AUTO) 86 % (42-75); PLATELET COUNT 246 10^3/uL (130-400); RED CELL DISTRIBUTION WIDTH 14.1 % (10.0-14.5); WHITE BLOOD COUNT 7.5 10^3/uL (4.3-11.0)
[2019-07-23 07:55] LABS: INR 0.9 (0.8-1.4); PROTHROMBIN TIME PATIENT 12.5 SEC (12.2-14.7)
[2019-07-23 08:04] LABS: ALBUMIN 3.9 GM/DL (3.2-4.5); BILIRUBIN,TOTAL 0.9 MG/DL (0.1-1.0); CALCIUM 9.2 MG/DL (8.5-10.1); CREATININE SERUM 0.96 MG/DL (0.60-1.30); POTASSIUM 3.4 MMOL/L (3.6-5.0); TOTAL PROTEIN 6.6 GM/DL (6.4-8.2)
--- NOTE | 2019-07-23 08:06 | ED General ---
General Chief Complaint: Respiratory Problems Stated Complaint: CP;SOA Nursing Triage Note: PT AMB TO RM 5 WITH COMPLAINT OF SOA, CP, AND COUGH. STATES STARTED AT 2 AM. Nursing Sepsis Screen: No Definite Risk Source of Information: Patient Exam Limitations: No Limitations (OBDULIO CHAMPION MED STUDENT) History of Present Illness Date Seen by Provider: Jul 23, 2019 Time Seen by Provider: 07:50 Initial Comments The patient is a wd/wn 64 y/o female who is here with a chief complaint of cough and shortness of breath. She reports that she woke up at 2 am with a wet cough and shortness of breath. She used albuterol inhaler five times with minimal relief. She is also experiencing midepigastric pain as well as midline, lower thoracic back pain. She is also complaining of a mild headache and unsteadiness. She denies nausea, vomiting, or diarrhea. She has no known recent sick contacts. Timing/Duration: 4-6 Hours Severity: Moderate Associated Systoms: Chest Pain, Cough, Fever/Chills, Headaches; No Nausea/Vomiting; Shortness of Air (OBDULIO CHAMPION MED STUDENT) Allergies and Home Medications Allergies Coded Allergies: Sulfa (Sulfonamide Antibiotics) (Unverified Allergy, Unknown, 06/08/14) Home Medications Albuterol 8.5 Gm Hfa.aer.ad, 1 PUFF IH Q4H PRN for SHORTNESS OF BREATH, (Reported) 1 PUFFS Albuterol Sulfate 2.5 Mg/3 Ml Vial.neb, 2.5 MG IH Q4H PRN for SHORTNESS OF BREATH Prescribed by: OBDULIO BAUGH on 09/24/16 1352 Azelastine Hcl 137 Mcg [place].pump, 2 SPRAYS NS BID, (Reported) Cetirizine Hcl 10 Mg Capsule, 10 MG PO DAILY, (Reported) Chlorzoxazone 500 Mg Tablet, 500 MG PO TID, (Reported) Cyclobenzaprine HCl 10 Mg Tablet, 10 MG PO Q8H Prescribed by: KERVIN LIAO on 07/10/19 0144 Diphenhydramine Hcl 25 Mg Tablet, 1 EACH PO HS, (Reported) Fluticasone Propionate 16 Gm [place].susp, 16 GM NS BID, (Reported) Fluticasone/Salmeterol 1 Each Disk.w.dev, 0 IH BID, (Reported) 1 PUFF Gabapentin 300 Mg Capsule, 300 MG PO DAILY, (Reported) Ibuprofen 800 Mg Tablet, 800 MG PO Q8H PRN for PAIN, (Reported) Methylprednisolone 4 Mg Tab.ds.pk, 4 MG PO UD Prescribed by: KERVIN LIAO on 07/10/19 0144 Montelukast Sodium 10 Mg Tablet, 1 TAB PO DAILY, (Reported) Naproxen 500 Mg Tablet.dr, 500 MG PO PRN PRN for PAIN-MODERATE Prescribed by: NILA LEE on 07/02/19 1533 Omalizumab 150 Mg Ana, 150 MG SQ UD, (Reported) Omeprazole 20 Mg Capsule.dr, 40 MG PO BID, (Reported) Tiotropium [place] 1 Inh Aerp, 1 INH IH DAILY, (Reported) Tramadol HCl 50 Mg Tablet, 50 MG PO Q4H PRN for PAIN Prescribed by: SITA VERDUZCO on 06/19/162055 Patient Home Medication List Home Medication List Reviewed: Yes (LUZ GOSS MD) Review of Systems Review of Systems Constitutional: chills, fever EENTM: No blurred vision, No double vision Respiratory: cough, short of breath Cardiovascular: chest pain; No palpitations Gastrointestinal: abdominal pain (LUQ); No diarrhea, No nausea, No vomiting Musculoskeletal: back pain, neck pain (OBDULIO CHAMPION STUDENT) Constitutional: chills, fever EENTM: nose congestion, throat pain Respiratory: cough, short of breath, wheezing Cardiovascular: see HPI Gastrointestinal: abdominal pain (LUQ); No nausea, No vomiting (LUZ GOSS MD) All Other Systems Reviewed Negative Unless Noted: Yes (LUZ GOSS MD) Past Mxvkplf-Fubocc-Wdzzdm Hx Past Med/Social Hx: Reviewed Nursing Past Med/Soc Hx (LUZ GOSS MD) Patient Social History Alcohol Use: Denies Use Recreational Drug Use: No Smoking Status: Never a Smoker 2nd Hand Smoke Exposure: No Recent Foreign Travel: No Contact w/Someone Who Travel: No Recent Infectious Disease Expo: No Recent Hopitalizations: No Physical Abuse: No Sexual Abuse: No Mistreated: No Fear: No (OBDULIO CHAMPION STUDENT) Immunizations Up To Date Tetanus Booster (TDap): Unknown Date of Influenza Vaccine: Aug 06, 2016 (OBDULIO CHAMPION STUDENT) Seasonal Allergies Seasonal Allergies: Yes (OBDULIO CHAMPION STUDENT) Past Medical History Surgeries: Yes (HIATAL HERNIA REPAIR, CARPAL TUNNEL) Abdominal, Appendectomy, Gallbladder, Hysterectomy, Orthopedic Respiratory: Yes Asthma, COPD Currently Using CPAP: No Currently Using BIPAP: No Cardiac: No Neurological: No 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 Disorders: No 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, 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 Genitourinary: No Gastrointestinal: Yes Gastroesophageal Reflux Musculoskeletal: Yes Arthritis Endocrine: No HEENT: No Loss of Vision: Bilateral Hearing Impairment: Denies Cancer: No Psychosocial: Yes Depression Integumentary: No Blood Disorders: No Adverse Reaction/Blood Tranf: No (OBDULIO CHAMPION STUDENT) Family Medical History Reviewed Nursing Family Hx (LUZ GOSS MD) No Pertinent Family Hx (LUZ GOSS MD) Physical Exam-Suspected Sepsis Physical Exam Vital Signs Vital Signs - First Documented 07/23/19 07:22 Temp 40.2 Pulse 104 Resp 32 B/P (MAP) 143/83 (103) Pulse Ox 92 O2 Delivery Room Air (LUZ GOSS MD) Vital Signs Capillary Refill : Less Than 3 Seconds (OBDULIO CHAMPION STUDENT) Blood Pressure Mean: 103 Height, Weight, BMI Height: 5'2.00" Weight: 177lbs. 0oz. 80.038891di; 31.00 BMI Method:Stated General Appearance: WD/WN, Anxious Respiratory: Chest Non Tender, Wheezing Cardiovascular: No Murmur, Tachycardia Gastrointestinal: Normal Bowel Sounds, Tenderness Neurologic/Psychiatric: Alert, Oriented x3, No Motor/Sensory Deficits (OBDULIO STONER MED STUDENT) General Appearance: WD/WN, Anxious HEENT: PERRL/EOMI, Pharyngeal Erythema Neck: Non Tender, Supple Respiratory: Crackles, Wheezing Cardiovascular: No Murmur, Tachycardia Gastrointestinal: Soft, Tenderness (mild left upper quadrant) Back: Normal Inspection, No CVA Tenderness, No Vertebral Tenderness Extremity: Normal Range of Motion, Non Tender Neurologic/Psychiatric: Alert, Oriented x3, No Motor/Sensory Deficits Skin: normal color, warm/dry (LUZ GOSS MD) Focused Exam Lactate Level 07/23/19 07:38: Lactic Acid Level 3.27*H (LUZ GOSS MD) Lactic Acid Level Laboratory Tests Test 07/23/19 07:38 Lactic Acid Level 3.27 MMOL/L (0.50-2.00) *H (LUZ GOSS MD) Progress/Results/Core Measures Suspected Sepsis Recent Fever Within 48 Hours: No Infection Criteria Present: None New/Unexplained Altered Menta: No Sepsis Screen: No Definite Risk SIRS Temperature: Pulse: 104 Respiratory Rate: 32 Laboratory Tests 07/23/19 07:38: White Blood Count 7.5 Blood Pressure 143 /83 Mean: 103 07/23/19 07:38: Laboratory Tests 07/23/19 07:38: Platelet Count 246 (OBDULIO CHAMPION STUDENT) Results/Orders Lab Results Laboratory Tests Test 07/23/19 07:38 07/23/19 08:20 Range/Units White Blood Count 7.5 4.3-11.0 10^3/uL Red Blood Count 4.81 4.35-5.85 10^6/uL Hemoglobin 14.1 11.5-16.0 G/DL Hematocrit 43 35-52 % Mean Corpuscular Volume 89 80-99 FL Mean Corpuscular Hemoglobin 29 25-34 PG Mean Corpuscular Hemoglobin Concent 33 32-36 G/DL Red Cell Distribution Width 14.1 10.0-14.5 % Platelet Count 246 130-400 10^3/uL Mean Platelet Volume 10.3 7.4-10.4 FL Neutrophils (%) (Auto) 86 H 42-75 % Lymphocytes (%) (Auto) 11 L 12-44 % Monocytes (%) (Auto) 2 0-12 % Eosinophils (%) (Auto) 0 0-10 % Basophils (%) (Auto) 0 0-10 % Neutrophils # (Auto) 6.4 1.8-7.8 X 10^3 Lymphocytes # (Auto) 0.8 L 1.0-4.0 X 10^3 Monocytes # (Auto) 0.2 0.0-1.0 X 10^3 Eosinophils # (Auto) 0.0 0.0-0.3 10^3/uL Basophils # (Auto) 0.0 0.0-0.1 10^3/uL Neutrophils % (Manual) 83 % Lymphocytes % (Manual) 14 % Monocytes % (Manual) 3 % Blood Morphology Comment NORMAL Prothrombin Time 12.5 12.2-14.7 SEC INR Comment 0.9 0.8-1.4 Activated Partial Thromboplast Time 25 24-35 SEC Sodium Level 144 135-145 MMOL/L Potassium Level 3.4 L 3.6-5.0 MMOL/L Chloride Level 109 H 98-107 MMOL/L Carbon Dioxide Level 23 21-32 MMOL/L Anion Gap 12 5-14 MMOL/L Blood Urea Nitrogen 14 7-18 MG/DL Creatinine 0.96 0.60-1.30 MG/DL Estimat Glomerular Filtration Rate 59 BUN/Creatinine Ratio 15 Glucose Level 120 H 70-105 MG/DL Lactic Acid Level 3.27 *H 0.50-2.00 MMOL/L Calcium Level 9.2 8.5-10.1 MG/DL Corrected Calcium 9.3 8.5-10.1 MG/DL Total Bilirubin 0.9 0.1-1.0 MG/DL Aspartate Amino Transf (AST/SGOT) 21 5-34 U/L Alanine Aminotransferase (ALT/SGPT) 33 0-55 U/L Alkaline Phosphatase 81 40-136 U/L Troponin I < 0.028 <0.028 NG/ML Total Protein 6.6 6.4-8.2 GM/DL Albumin 3.9 3.2-4.5 GM/DL Lipase 10 8-78 U/L Urine Color YELLOW Urine Clarity CLEAR Urine pH 7 5-9 Urine Specific [place] 1.010 L 1.016-1.022 Urine Protein NEGATIVE NEGATIVE Urine Glucose (UA) NEGATIVE NEGATIVE Urine Ketones NEGATIVE NEGATIVE Urine Nitrite NEGATIVE NEGATIVE Urine Bilirubin NEGATIVE NEGATIVE Urine Urobilinogen NORMAL NORMAL MG/DL Urine Leukocyte Esterase 2+ H NEGATIVE Urine RBC (Auto) 2+ H NEGATIVE Urine RBC 2-5 H /HPF Urine WBC 0-2 /HPF Urine Squamous Epithelial Cells RARE /HPF Urine Crystals NONE /LPF Urine Bacteria NEGATIVE /HPF Urine Casts NONE /LPF Urine Mucus NEGATIVE /LPF Urine Culture Indicated NO (LUZ GOSS MD) Micro Results Microbiology 07/23/19 Influenza Types A,B Antigen (MAL) - Final, Complete (LUZ GOSS MD) My Orders Orders - LUZ GOSS MD Cbc With Automated Diff (07/23/19 07:38) Comprehensive Metabolic Panel (07/23/19 07:38) Blood Culture (07/23/19 07:38) Sputum Culture (07/23/19 07:38) Urinalysis (07/23/19 07:38) Urine Culture (07/23/19 07:38) Protime With Inr (07/23/19 07:38) Partial Thromboplastin Time (07/23/19 07:38) Chest 1 View, Ap/Pa Only (07/23/19 07:38) Acetaminophen Tablet (Tylenol Tablet) (07/23/19 07:45) Ed Iv/Invasive Line Start (07/23/19 07:38) Vital Signs Adult Sepsis Patie Q15M (07/23/19 07:38) O2 (07/23/19 07:38) Remove Rings In Anticipation O (07/23/19 07:38) Lactic Acid Analyzer (07/23/19 07:38) Influenza A And B Antigens (07/23/19 07:38) Lactated Ringers (Lr 1000 Ml Iv Solution (07/23/19 07:38) Lactated Ringers (Lr 1000 Ml Iv Solution (07/23/19 07:32) Acetaminophen Tablet (Tylenol Tablet) (07/23/19 07:32) Troponin I (07/23/19 07:43) Ekg Tracing (07/23/19 07:43) Manual Differential (07/23/19 07:38) Lipase (07/23/19 07:54) Albuterol/Ipra Inhalation Soln (Duoneb I (07/23/19 09:00) Svn Small Volume Nebulizer (07/23/19 08:58) Cefepime Injection (Maxipime Injection) (07/23/19 09:00) Albuterol/Ipra Inhalation Soln (Duoneb I (07/23/19 08:51) (LUZ GOSS MD) Medications Given in ED Current Medications Medications Dose Ordered Sig/Basilio Route Start Time Stop Time Status Last Admin Dose Admin Acetaminophen 1,000 mg ONCE PRN PO 07/23/19 07:45 07/23/19 07:45 DC 07/23/19 07:43 1,000 MG Lactated Ringer's 1,000 ml @ 0 mls/hr Q0M ONCE IV 07/23/19 07:38 07/23/19 07:40 DC 07/23/19 07:43 1,000 MLS/HR (LUZ GOSS MD) Vital Signs/I&O 07/23/19 07/23/19 07:22 07:43 Temp 40.2 40.2 Pulse 104 Resp 32 B/P (MAP) 143/83 (103) Pulse Ox 92 O2 Delivery Room Air (LUZ GOSS MD) Vital Signs/I&O Capillary Refill : Less Than 3 Seconds (OBDULIO CHAMPION MED STUDENT) Blood Pressure Mean: 103 Progress Note : Time: 08:05 Progress Note The patient is anxious but resting in the exam room. She will be evaluated for possible sepsis with routine protocol as well as troponin and lipase. Tylenol is administered for fever and pain and LR for fluid resuscitation. (OBDULIO CHAMPION MED STUDENT) Progress Note : Progress Note I have seen and evaluated the patient and agree with above except as indicated. I have directed the plan of care. Patient's here with onset of cough, shortness of breath and high fever. Noted worse this morning early and started with what cough and now has a dry cough. Also reports sore throat. Physical exam reveals wheezes to bilateral lung with left greater than right and a few crackles at the left base. She is tachycardic. Abdomen is soft and nontender. She is mentating well. Plan is for IV, labs, blood cultures, lactic as a, influenza screen, UA and chest x-ray. LR 1 L bolus. Tylenol 1 g by mouth. Monitor patient. 0852: Pneumonia noted. We will initiate treatment. Patient will car admission due to elevated lactic acid and pneumonia. Duo neb ordered. Cefepime 1 g IV ordered. 0903: I have discussed the case with Dr. Dhaliwal and she accepts patient for admission, inpatient status. Requested consult with Dr. García which was done at 0904. Patient agrees with admission. Patient does have elevated lactic acid but it is less than 4. She is not hypotensive. She does not require high-volume fluid resuscitation at this time. (LUZ GOSS MD) ECG Initial ECG Impression Date: Jul 23, 2019 Initial ECG Impression Time: 07:39 Initial ECG Rate: 103 Initial ECG Rhythm: S.Tach Initial ECG Comparisson: No Previous ECG Available Comment Sinus tachycardia with normal axis. No evidence of ST elevation [place]. No previous available for comparison. Interpreted by me. (LUZ GOSS MD) Diagnostic Imaging Diagonstic Imaging: Xray Plain Films/CT/US/NM/MRI: chest Comments NAME: DEON SERVIN [facility] REC#: [id number] PT STATUS: REG ER : 1955 PHYSICIAN: LUZ GOSS MD ADMIT DATE: 07/23/19/ER Draft Date of Exam:07/23/19 CHEST 1 VIEW, AP/PA ONLY INDICATION: Complains shortness of breath, chest pain and cough this started about 2:00 AM. EXAM: Portable chest x-ray upright view. COMPARISONS: Chest x-ray dated 09/24/2016. FINDINGS: There is interval development of small to moderate amount of patchy airspace infiltrates involving the periphery of the left midlung field and left lung base. Remainder of lungs are clear. There is no pleural effusion or pneumothorax. There is mild cardiomegaly. There is no significant pulmonary vascular congestion. There is right curvature of the thoracic spine. IMPRESSION: 1: Interval development of left midlung field left lung base infiltrates. 2: There is mild cardiomegaly. Dictated on workstation # [id number] Dict: 07/23/19 0835 Trans: 07/23/19 0847 [id number] Interpreted by: ETHAN GUERRA MD Electronically signed by: Reviewed: Reviewed by Me (LUZ GOSS MD) Departure Communication (Admissions) Time/Spoke to Admitting Phy: 09:03 (LUZ GOSS MD) Impression Primary Impression: Left lower lobe pneumonia Qualified Codes: J18.1 - Lobar pneumonia, unspecified organism Disposition: ADMITTED INPATIENT Condition: Stable Admissions Decision to Admit Reason: Admit from ER (General) Decision to Admit/Date: Jul 23, 2019 Time/Decision to Admit Time: 09:03 (LUZ GOSS MD) Departure-Patient Inst. Referrals: [facility] (PCP/Family) Primary Care Physician OBDULIO CHAMPION STUDENT Jul 23, 2019 08:06 LUZ GOSS MD Jul 23, 2019 08:54
[2019-07-23 08:25] LABS: LYMPHOCYTES % (MANUAL) 14 %; MONOCYTES % (MANUAL) 3 %; NEUTROPHILS % (MANUAL) 83 %; RBC MORPH NORMAL
[2019-07-23 08:28] LABS: BILIRUBIN,URINE NEGATIVE (NEGATIVE); CLARITY,URINE CLEAR; COLOR,URINE YELLOW; GLUCOSE, URINE (UA) NEGATIVE (NEGATIVE); KETONES,URINE NEGATIVE (NEGATIVE); LEUKOCYTE ESTERASE ,URINE 2+ (NEGATIVE); NITRITE,URINE NEGATIVE (NEGATIVE); PH,URINE 7 (5-9); PROTEIN,URINE NEGATIVE (NEGATIVE); UROBILINOGEN,URINE NORMAL (NORMAL)
[2019-07-23 08:44] LABS: BACTERIA,URINE NEGATIVE /HPF; SQUAMOUS EPITHELIAL CELL,UR RARE /HPF; WBC,URINE 0-2 /HPF
--- NOTE | 2019-07-23 08:47 | Diagnostic Imaging Report ---
INDICATION: Complains shortness of breath, chest pain and cough this started about 2:00 AM. EXAM: Portable chest x-ray upright view. COMPARISONS: Chest x-ray dated 09/24/2016. FINDINGS: There is interval development of small to moderate amount of patchy airspace infiltrates involving the periphery of the left midlung field and left lung base. Remainder of lungs are clear. There is no pleural effusion or pneumothorax. There is mild cardiomegaly. There is no significant pulmonary vascular congestion. There is right curvature of the thoracic spine. IMPRESSION: 1: Interval development of left midlung field left lung base infiltrates. 2: There is mild cardiomegaly. Dictated by: Dictated on workstation # [id number]
[2019-07-23] MEDS ORDERED: RT-ALBUTEROL/IPRATROPIUM 3 ML (DUONEB) VIAL ONE (08:51)
[2019-07-23] MEDS ORDERED: RT-ALBUTEROL/IPRATROPIUM 3 ML (DUONEB) VIAL INH ONE (09:00)
[2019-07-23] MEDS ORDERED: CEFEPIME INJECTION 1,000 MG in WATER (STERILE) FOR INJECTION 10 ML IV ONE (09:00)
[2019-07-23] MEDS ORDERED: CEFEPIME 1 GM (MAXIPIME) VIAL ONE (09:10)
[2019-07-23] MEDS ORDERED: WATER (STERILE) FOR INJECTION 10 ML ONE (09:10)
--- NOTE | 2019-07-23 09:40 | NUR ---
DEON SERVIN admitted to room 414-1, with an admitting diagnosis of PNEUMONIA, on 07/23/19 from [place] via EMERGENCY, accompanied by ADULT SISTERS.DEON SERVIN introduced to surroundings, call light, bed controls, phone, TV, temperature control, lights, meal times, smoking policy, visitor policy, side rail policy, bathrooms and showers. DEON SERVIN verbalizes understanding that [facility] is not responsible for the loss or damage to any personal effects or valuables that are kept in the patients posession during their hospitalization. The following Patient Care Plans were discussed with the PNEUMONIA: Discharge Planning, PAIN, and PNEUMONIA. DEON SERVIN verbalizes understanding of Interdisciplinary Patient Education. Patient and/or family were informed about the Rapid Response Team and its purpose.
[2019-07-23 09:49] VITALS: BP 118/62
[2019-07-23] MEDS ORDERED: CATHETER FLUSH 10 ML SYR IV PRN (10:00)
[2019-07-23] MEDS: LACTATED RINGERS 1,000 ML IV SCH ×3 (10:12→23:36)
[2019-07-23] MEDS ORDERED: CETI10TA20 PO (10:46)
[2019-07-23] MEDS ORDERED: MULT1TAB69 PO (10:46)
[2019-07-23] MEDS ORDERED: ATOR20TA66 PO (11:28)
[2019-07-23] MEDS ORDERED: FLUT1DIS26 IH (11:28)
[2019-07-23] MEDS ORDERED: FLUO40CA12 PO (11:28)
[2019-07-23] MEDS ORDERED: QUET100T PO (11:28)
[2019-07-23] MEDS ORDERED: RT-ALBUINH IH (11:28)
[2019-07-23] MEDS ORDERED: OMEP40CA36 PO (11:28)
[2019-07-23] MEDS ORDERED: DICL50TA6 PO (11:28)
[2019-07-23] MEDS ORDERED: MONT10TA24 PO (11:28)
[2019-07-23] MEDS ORDERED: GABA-488 PO (11:28)
[2019-07-23] MEDS ORDERED: TIOT18CA2 IH (11:28)
[2019-07-23] MEDS ORDERED: LEVO25TA5 PO (11:28)
--- NOTE | 2019-07-23 11:35 | NUR ---
SPOKE WITH THE PATIENT ABOUT HER MEDICATIONS. SHE LISTED WHAT SHE IS TAKING. SHE STATES SHE GETS MOST OF HER MEDS THROUGH THE REPOSITORY IN [place]. I CALLED THEM WELL [facility] FOR A LIST OF RECENTLY DISPENSED MEDICATIONS. [facility] FILLED: 06-30-19 SEROQUEL 100MG 1.5 TABS HS #45 06-09-19 GABAPENTIN 300MG TID #90 [place] REPOSITORY: 07-15-19 OMEPRAZOLE 40MG BID #180 06-30-19 PROAIR 1 PUFFS Q4H PRN #1 06-08-19 SINGULAIR 10MG HS #90 05-12-19 DICLOFENAC 50MG TID #180 (STATES SHE ONLY TAKES IT BID) 05-12-19 LEVOTHYROXINE 25MCG 1.5 TABS DAILY #90 (INCREASED FROM 1/2 TAB TO 1.5 TABS) 05-08-19 ATORVASTATIN 20MG HS #90 05-08-19 PROZAC 40MG 2 DAILY #90 05-05-19 ADVAIR 250/50 BID #3 (PALS) 02-26-19 SPIRIVA #90 HS (PALS) MAY HAVE BEEN MAILED OUT SINCE THAT WAS AUTHORIZED) FLONASE 2 SPRAYS EN BID OTC MEDS: MTV DAILY ZYRTEC DAILY
[2019-07-23 12:00] VITALS: BP 97/61
[2019-07-23 14:08] VITALS: BP 143/83
[2019-07-23] MEDS ORDERED: RT-ALBUTEROL/IPRATROPIUM 3 ML (DUONEB) VIAL INH PRN (14:30)
[2019-07-23] MEDS: ACETAMINOPHEN 500 MG TAB (TYLENOL) PO PRN (15:20)
[2019-07-23] MEDS: CHLORASEPTIC SPRAY 177 ML LIQUID MC PRN ×2 (15:58→21:08)
[2019-07-23] MEDS: CEFEPIME 1,000 MG/SWFI 10 ML IV PUSH IV SCH ×4 (15:58→21:09)
[2019-07-23] MEDS: ONDANSETRON 4 MG/2 ML (SDV) Z0FRAN IV PRN (15:58)
[2019-07-23 16:00] VITALS: BP 111/70
[2019-07-23] MEDS: RT-ALBUTEROL/IPRATROPIUM 3 ML (DUONEB) VIAL INH SCH ×2 (18:50→22:36)
[2019-07-23 20:00] VITALS: BP 134/66
--- NOTE | 2019-07-23 21:07 | Progress Note ---
Progress Note Chief complaint: Cough with fever HPI: This is a 64yoWF patient of [facility] who presented to the ER with a couple day Hx of cough, found to have a 104 fever, found to have left lower lobe pneumonia and Hx COPD with a lactic acid of 3.0 consistent with sepsis, given IV fluids in the ER and placed on Cefepime protocol for pneumonia. Dr. García will consulted. FRANCK TUCKER DO Jul 23, 2019 21:07
[2019-07-23] MEDS ORDERED: LOPERAMIDE 2 MG (IMODIUM) TABLET PO PRN (21:15)
[2019-07-23] MEDS ORDERED: diphenhydrAMINE 25 MG TAB (BENADRYL) PO PRN (21:15)
[2019-07-23] MEDS ORDERED: MELATONIN 3 MG TABLET PO PRN (21:15)
[2019-07-23] MEDS ORDERED: CALCIUM CARBONATE 500 MG (TUMS) TAB.CHEW PO PRN (21:15)
[2019-07-23] MEDS ORDERED: IBUPROFEN TABLET 200 MG TAB PO PRN (21:15)
[2019-07-23] MEDS ORDERED: ALPRAZolam 0.25 MG (XANAX) TAB PO PRN (21:15)
[2019-07-23] MEDS ORDERED: HYDROcodone/APAP 5 MG/325 MG (LORTAB) TAB PO PRN (21:15)
[2019-07-23] MEDS ORDERED: fentaNYL INJECTION 100 MCG/2 ML AMP IVP PRN (21:15)
[2019-07-23] MEDS ORDERED: DOCUSATE SODIUM 100 MG (COLACE) CAP PO PRN (21:15)
[2019-07-24] VITALS: BP 111/68
[2019-07-24 04:00] VITALS: BP 111/62
[2019-07-24] MEDS: CHLORASEPTIC SPRAY 177 ML LIQUID MC PRN (04:33)
[2019-07-24] MEDS: CEFEPIME 1,000 MG/SWFI 10 ML IV PUSH IV SCH ×8 (04:33→22:01)
[2019-07-24] MEDS: RT-ALBUTEROL/IPRATROPIUM 3 ML (DUONEB) VIAL INH SCH ×5 (05:03→21:45)
[2019-07-24 06:00] LABS: BASOPHILS % (AUTO) 0 % (0-10); EOSINOPHILS # (AUTO) 0.1 10^3/uL (0.0-0.3); EOSINOPHILS % (AUTO) 0 % (0-10); HEMATOCRIT 34 % (35-52); LYMPHOCYTES # (AUTO) 2.1 X 10^3 (1.0-4.0); LYMPHOCYTES % (AUTO) 16 % (12-44); MEAN CORPUSCULAR HEMOGLOBIN 29 PG (25-34); MEAN CORPUSCULAR HGB CONC 33 G/DL (32-36); MEAN CORPUSCULAR VOLUME 89 FL (80-99); MEAN PLATELET VOLUME 10.3 FL (7.4-10.4); MONOCYTES % (AUTO) 7 % (0-12); NEUTROPHILS # (AUTO) 10.3 X 10^3 (1.8-7.8); NEUTROPHILS % (AUTO) 76 % (42-75); PLATELET COUNT 198 10^3/uL (130-400); RED CELL DISTRIBUTION WIDTH 14.4 % (10.0-14.5); WHITE BLOOD COUNT 13.6 10^3/uL (4.3-11.0)
[2019-07-24 06:24] LABS: ALANINE AMINOTRANSFERASE 27 U/L (0-55); ALKALINE PHOSPHATASE 73 U/L (40-136); BILIRUBIN,TOTAL 0.6 MG/DL (0.1-1.0); BUN/CREATININE RATIO 16; CALCIUM 8.8 MG/DL (8.5-10.1); CARBON DIOXIDE 24 MMOL/L (21-32); CHLORIDE 110 MMOL/L (98-107); CREATININE SERUM 0.82 MG/DL (0.60-1.30); GFR ESTIMATED > 60; GLUCOSE 98 MG/DL (70-105); POTASSIUM 3.6 MMOL/L (3.6-5.0); SODIUM 140 MMOL/L (135-145); TOTAL PROTEIN 5.1 GM/DL (6.4-8.2)
[2019-07-24] MEDS: LACTATED RINGERS 1,000 ML IV SCH (06:26)
[2019-07-24 08:00] VITALS: BP 126/73
[2019-07-24] MEDS: SENNA W/DOCUSATE (SENOKOT S) TABLET PO SCH ×2 (08:05→22:09)
--- NOTE | 2019-07-24 11:35 | History & Physical-Hospitalist ---
History of Present Illness HPI/Chief Complaint Chief complaint: Sepsis with fever and pneumonia HPI: This is a 64-year-old white female with known COPD he sees Dr. García on a regular basis who presents to the ER with complaints of cough and fever found to have a left lower lobe pneumonia with elevated lactic acid and in need of aggressive treatment. 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 Her home medications were reviewed and restarted and IV fluid was given which resulted in improvement in lactic acid that resolved the elevated reading. Overall patient felt that she was improved from ER admission. Source: patient Exam Limitations: no limitations Date Seen 07/24/19 Time Seen by a Provider: 09:00 Attending Physician Keira Dhaliwal DO [facility] Referring Physician Date of Admission Jul 23, 2019 at 09:14 Home Medications & Allergies Home Medications Reviewed patient Home Medication Reconciliation performed by pharmacy medication reconciliations network control technician and/or nursing. Patients Allergies have been reviewed. Allergies Allergies Coded Allergies Sulfa (Sulfonamide Antibiotics) (Unverified Allergy, Unknown, 06/08/14) Past Lsuybeo-Wlpdly-Fkkzhx Hx Past Med/Social Hx: Reviewed Nursing Past Med/Soc Hx, Reviewed and Corrections made Patient Social History Marrital Status: Employed/Student: unemployed, retired Alcohol Use: Denies Use Recreational Drug Use: No Smoking Status: Never a Smoker 2nd Hand Smoke Exposure: No Physical Abuse Screen: No Sexual Abuse: No Recent Foreign Travel: No Contact w/other who traveled: No Recent Hopitalizations: No Recent Infectious Disease Expo: No Immunizations Up To Date Tetanus Booster (TDap): Unknown Date of Pneumonia Vaccine: Jul 23, 2013 Date of Influenza Vaccine: Aug 06, 2016 Seasonal Allergies Seasonal Allergies: Yes Past Medical History Surgeries: Abdominal, Appendectomy, Gallbladder, Hysterectomy, Orthopedic Respiratory: COPD Currently Using CPAP: No Currently Using BIPAP: No 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: No Hysterectomy, Menopausal Gastrointestinal: Gastroesophageal Reflux Musculoskeletal: Arthritis Loss of Vision: Bilateral Hearing Impairment: Denies Psychosocial: Depression History of Blood Disorders: No Adverse Reaction to Blood Parada: No Family History Reviewed Nursing Family Hx No Pertinent Family Hx Review of Systems Constitutional: see HPI EENTM: no symptoms reported Respiratory: cough, dyspnea on exertion, wheezing Cardiovascular: no symptoms reported Gastrointestinal: no symptoms reported Genitourinary: no symptoms reported Musculoskeletal: no symptoms reported Skin: no symptoms reported Psychiatric/Neurological: Anxiety, Depressed Physical Exam Physical Exam Vital Signs Vital Signs - First Documented 07/23/19 07:22 Temp 40.2 Pulse 104 Resp 32 B/P (MAP) 143/83 (103) Pulse Ox 92 O2 Delivery Room Air Capillary Refill : Less Than 3 SecondsLess Than 3 Seconds Height, Weight, BMI Height: 5'2.00" Weight: 177lbs. 0oz. 80.708099ah; 33.62 BMI Method:Stated General Appearance: No Apparent Distress, WD/WN, Anxious, Chronically ill Eyes: Right Eye Normal Inspection, Right Eye PERRL HEENT: PERRL/EOMI, Normal ENT Inspection, Pharynx Normal, Moist Mucous Membranes Neck: Full Range of Motion, Normal Inspection, Non Tender Respiratory: Chest Non Tender, No Accessory Muscle Use, No Respiratory Distress , Crackles, Wheezing Cardiovascular: Regular Rate, Rhythm, No Edema, No Gallop, No JVD, No Murmur, Normal Peripheral Pulses Gastrointestinal: Normal Bowel Sounds, No Organomegaly, No Pulsatile Mass, Non Tender, Soft Back: Normal Inspection, No CVA Tenderness, No Vertebral Tenderness Extremity: Normal Capillary Refill, Normal Inspection, Normal Range of Motion, Non Tender, No Calf Tenderness, No Pedal Edema Neurologic/Psychiatric: Alert, Oriented x3, No Motor/Sensory Deficits, Normal Mood/Affect Skin: Normal Color, Warm/Dry Lymphatic: No Adenopathy Results Results/Procedures Labs Laboratory Tests 07/24/19 05:40 07/25/19 05:09 Patient resulted labs reviewed. Assessment/Plan Admission Diagnosis Assessment: Left lower lobe pneumonia Sepsis COPD exacerbation Mental illness Plan: Antibiotics IV fluids Pulmonary consultation is appreciated Admission Status: Inpatient Order (span 2 midnights) Reason for Inpatient Admission: Pneumonia with COPD high risk for decompensation requiring pulmonology consultation will take 3 days Diagnosis/Problems Diagnosis/Problems (1) Left lower lobe pneumonia Status: Acute Qualifiers: Pneumonia type: due to unspecified organism Qualified Codes: J18.1 - Lobar pneumonia, unspecified organism (2) COPD exacerbation Status: Acute Clinical Quality Measures DVT/VTE Risk/Contraindication: Risk Factor Score Per Nursin RFS Level Per Nursing on Admit: 4+=Very High KEIRA DHALIWAL DO Jul 24, 2019 11:35
[2019-07-24] MEDS ORDERED: FLUTICASONE NASAL SPRAY (FLONASE) 16 GM BTL NS PRN (11:45)
[2019-07-24] MEDS ORDERED: RT-ALBUTEROL SULF 2.5 MG/3 ML PRE-MIX VIAL IH PRN (11:45)
--- NOTE | 2019-07-24 11:45 | Pulmonary Consultation ---
History of Present Illness History of Present Illness Date of Consultation 07/23/19 Late Note Today is 07/24/19 1600 Time Seen by Provider: 11:39 Date of Admission History of Present Illness 64yo presented to ED secondary to worsening cough, wheezing, and SOB. She did take extra doses of albuterol however it did not seem to help her SOB. She does have a documented fever. No prior episodes like this in the past. Influenza is negative. Pt was found to have hypotension in the ED. CXR shows PNA on the left. She was given aggressive IVF in the ED. I am consulted for pulmonary management. Allergies and Home Medications Allergies Coded Allergies: Sulfa (Sulfonamide Antibiotics) (Unverified Allergy, Unknown, 06/08/14) Home Medications Albuterol Sulfate 1 Puff Puff, 2 PUFF IH Q4H PRN for SHORTNESS OF BREATH, (Reported) 1 PUFF = 90 MCG Atorvastatin Calcium 20 Mg Tablet, 20 MG PO HS, (Reported) Cetirizine HCl 10 Mg Tablet, 10 MG PO DAILY, (Reported) Diclofenac Sodium 50 Mg Tablet.dr, 50 MG PO BID, (Reported) Fluoxetine HCl 40 Mg Capsule, 80 MG PO DAILY, (Reported) TAKES 2 (40MG) CAPSULES Fluticasone Propionate 16 Gm [place].susp, 2 SPRAYS NS BID PRN for ALLERGIES, (Reported) Fluticasone/Salmeterol 1 Each Blst.w.dev, 1 PUFF IH BID, (Reported) Gabapentin 300 Mg Capsule, 300 MG PO BID, (Reported) Levothyroxine Sodium 25 Mcg Tablet, 37.5 MCG PO DAILY, (Reported) TAKES 1 & 1/2 (25MCG) TABLET Montelukast Sodium 10 Mg Tablet, 10 MG PO HS, (Reported) Multivitamin 1 Each Tablet, 1 TAB PO DAILY, (Reported) Omeprazole 40 Mg Capsule.dr, 40 MG PO BID, (Reported) Quetiapine Fumarate 100 Mg Tablet, 150 MG PO HS, (Reported) TAKES 1 & 1/2 (100MG) TABLETS Tiotropium [place] 1 Inh Aerp, 1 CAP IH HS, (Reported) Past Qljqhvj-Tpzugx-Cljkle Hx Past Med/Social Hx: Reviewed Nursing Past Med/Soc Hx Patient Social History Alcohol Use: Denies Use Recreational Drug Use: No Smoking Status: Never a Smoker 2nd Hand Smoke Exposure: No Recent Foreign Travel: No Contact w/Someone Who Travel: No Recent Infectious Disease Expo: No Recent Hopitalizations: No Physical Abuse: No Sexual Abuse: No Mistreated: No Fear: No Immunizations Up To Date Tetanus Booster (TDap): Unknown Date of Pneumonia Vaccine: Jul 23, 2013 Date of Influenza Vaccine: Aug 06, 2016 Seasonal Allergies Seasonal Allergies: Yes Past Medical History Surgeries: Yes (HIATAL HERNIA REPAIR, CARPAL TUNNEL) Abdominal, Appendectomy, Gallbladder, Hysterectomy, Orthopedic Respiratory: Yes Asthma, COPD Currently Using CPAP: No Currently Using BIPAP: No Cardiac: No Neurological: No 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 Disorders: No 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, Menopausal Genitourinary: No Gastrointestinal: Yes Gastroesophageal Reflux Musculoskeletal: Yes Arthritis Endocrine: No HEENT: No Loss of Vision: Bilateral Hearing Impairment: Denies Cancer: No Psychosocial: Yes Depression Integumentary: No Blood Disorders: No Adverse Reaction/Blood Tranf: No Family Medical History Reviewed Nursing Family Hx No Pertinent Family Hx Review of Systems Time Seen by Provider: 11:45 Constitutional: Fever, Chills, Sweats, Weakness, Malaise, Other Eyes: No: Pain, Vision change, Conjunctivae inflammation, Eyelid inflammation, Other, Redness ENT: Nose congestion; No: Ear pain, Ear discharge, Nose pain, Nose discharge, Mouth pain, Mouth swelling, Throat pain, Throat swelling, Other Respiratory: Cough, Shortness of breath, SOB with excertion, Wheezing, Sputum Cardiovascular: Palpitations, Paroxysmal Noc. Dyspnea; No: Chest Pain Gastrointestinal: No: Nausea, Vomiting, Diarrhea Genitourinary: No Dysuria, No Frequency, No Incontinence, No Hematuria, No Retention, No Other Musculoskeletal: No: other, neck pain, shoulder pain, arm pain, back pain, hand pain, leg pain, foot pain Sepsis Event Evaluation Height, Weight, BMI Height: 5'2.00" Weight: 177lbs. 0oz. 80.339060vo; 33.62 BMI Method:Stated Exam Exam Vital Signs Date Time Temp Pulse Resp B/P (MAP) Pulse Ox O2 Delivery O2 Flow Rate FiO2 07/24/19 10:39 92 Room Air 07/24/19 08:00 37.2 97 20 126/73 (90) 94 Room Air 07/24/19 06:53 92 Room Air 07/24/19 04:00 37.1 99 24 111/62 (78) 94 Room Air 07/24/19 00:10 37.4 07/24/19 00:00 38.3 106 18 111/68 (82) 93 Room Air 07/23/19 23:05 38.3 07/23/19 22:36 93 Room Air 07/23/19 20:36 Room Air 07/23/19 20:00 37.6 114 20 134/66 (88) 93 Room Air 07/23/19 18:50 93 Room Air 07/23/19 16:00 38.4 85 20 111/70 (84) 93 Room Air 07/23/19 15:49 93 Room Air 07/23/19 14:08 40.2 104 92 07/23/19 12:00 38.1 97 14 97/61 (73) 94 Room Air I & O 07/24/19 07:00 Intake Total 5920 ml Output Total 2100 ml Balance 3820 ml Height & Weight Height: 5'2.00" Weight: 177lbs. 0oz. 80.639168fm; 33.62 BMI Method:Stated General Appearance: WD/WN, Anxious, Mild Distress HEENT: PERRL/EOMI, Pharyngeal Erythema Neck: Non Tender, Supple Respiratory: Crackles, Decreased Breath Sounds, Wheezing Cardiovascular: No Murmur, Tachycardia Capillary Refill: Less Than 3 Seconds Gastrointestinal: normal bowel sounds, non tender, soft Extremity: Normal Range of Motion, Non Tender Neurologic/Psychiatric: Alert, Oriented x3, No Motor/Sensory Deficits Skin: Normal Color, Warm/Dry Lymphatic: No Adenopathy Results Lab Laboratory Tests 07/23/19 07:38 07/24/19 05:40 Assessment/Plan Assessment/Plan LLL pneumonia with sepsis -Cefepime -August cultures - await final C&S Metabolic lactic acidosis -Continue IVF -repeat LA -Monitor Sinus tachy -IVF Low threshold for transferring to ICU. LALITHA SQUIRES DO Jul 24, 2019 11:44
--- NOTE | 2019-07-24 11:58 | Pulmonary Progress Note ---
Subjective Time Seen by a Provider: 11:57 Subjective/Events-last exam Pt feels improved. Sepsis Event Evaluation Height, Weight, BMI Height: 5'2.00" Weight: 177lbs. 0oz. 80.015864ip; 33.62 BMI Method:Stated Focused Exam Lactate Level 07/23/19 07:38: Lactic Acid Level 3.27*H 07/23/19 10:14: Lactic Acid Level 2.62*H Exam Exam Vital Signs Date Time Temp Pulse Resp B/P (MAP) Pulse Ox O2 Delivery O2 Flow Rate FiO2 07/24/19 10:39 92 Room Air 07/24/19 08:00 37.2 97 20 126/73 (90) 94 Room Air 07/24/19 06:53 92 Room Air 07/24/19 04:00 37.1 99 24 111/62 (78) 94 Room Air 07/24/19 00:10 37.4 07/24/19 00:00 38.3 106 18 111/68 (82) 93 Room Air 07/23/19 23:05 38.3 07/23/19 22:36 93 Room Air 07/23/19 20:36 Room Air 07/23/19 20:00 37.6 114 20 134/66 (88) 93 Room Air 07/23/19 18:50 93 Room Air 07/23/19 16:00 38.4 85 20 111/70 (84) 93 Room Air 07/23/19 15:49 93 Room Air 07/23/19 14:08 40.2 104 92 07/23/19 12:00 38.1 97 14 97/61 (73) 94 Room Air I & O 07/24/19 07:00 Intake Total 5920 ml Output Total 2100 ml Balance 3820 ml Height & Weight Height: 5'2.00" Weight: 177lbs. 0oz. 80.913708ec; 33.62 BMI Method:Stated General Appearance: No Apparent Distress, WD/WN, Anxious HEENT: PERRL/EOMI, Pharyngeal Erythema Neck: Non Tender, Supple Respiratory: Crackles, Decreased Breath Sounds Cardiovascular: No Murmur, Tachycardia Capillary Refill: Less Than 3 Seconds Gastrointestinal: normal bowel sounds, non tender, soft Extremity: Normal Range of Motion, Non Tender Neurologic/Psychiatric: Alert, Oriented x3, No Motor/Sensory Deficits Skin: Normal Color, Warm/Dry Lymphatic: No Adenopathy Results Lab Laboratory Tests 07/23/19 07:38 07/24/19 05:40 Assessment/Plan Assessment/Plan LLL pneumonia with sepsis -Cefepime -August cultures - await final C&S Metabolic lactic acidosis -Continue IVF -repeat LA -Monitor Sinus tachy -IVF LALTIHA SQUIRES DO Jul 24, 2019 11:58
[2019-07-24 12:00] VITALS: BP 125/68
[2019-07-24] MEDS ORDERED: FAMOTIDINE 20 MG (PEPCID) TABLET PO PRN (12:00)
[2019-07-24] MEDS: ACETAMINOPHEN 500 MG TAB (TYLENOL) PO PRN (13:12)
[2019-07-24] MEDS: ENOXAPARIN 40 MG/0.4 ML (LOVENOX) SYR SC SCH (13:13)
[2019-07-24] MEDS: ONDANSETRON 4 MG/2 ML (SDV) Z0FRAN IV PRN ×3 (13:13→21:56)
[2019-07-24 16:00] VITALS: BP 142/86
--- NOTE | 2019-07-24 18:45 | NUR ---
PT CONTINUES TO BE NAUSIATED WITH BOUTS OF EMESIS X2
[2019-07-24 19:50] VITALS: BP 146/86
[2019-07-24] MEDS: PANTOPRAZOLE 40 MG (PROTONIX) TAB PO SCH (20:34)
[2019-07-24] MEDS ORDERED: UMECLIDINIUM BROMIDE (INCRUSE ELLIPTA) 7'S IH SCH (21:00)
[2019-07-24] MEDS ORDERED: QUEtiapine 100 MG (SEROquel) TAB IMMEDIATE RELEASE PO SCH (21:00)
[2019-07-24] MEDS ORDERED: MONTELUKAST 10 MG (SINGULAIR) TAB PO SCH (21:00)
[2019-07-24] MEDS: RT-ADVAIR HFA 115/21 MCG PER PUFF IH SCH (21:45)
[2019-07-24] MEDS: GABAPENTIN 300 MG (NEURONTIN) CAP PO SCH (22:00)
[2019-07-24] MEDS: ETODOLAC 200 MG (LODINE) CAP PO SCH (22:16)
[2019-07-25 00:54] VITALS: BP 112/70
[2019-07-25] MEDS: RT-ALBUTEROL/IPRATROPIUM 3 ML (DUONEB) VIAL INH SCH ×3 (01:45→10:27)
[2019-07-25] MEDS: ACETAMINOPHEN 500 MG TAB (TYLENOL) PO PRN ×2 (02:13→12:18)
[2019-07-25] MEDS: CEFEPIME 1,000 MG/SWFI 10 ML IV PUSH IV SCH ×2 (04:00)
[2019-07-25 04:16] VITALS: BP 97/50
[2019-07-25 05:25] LABS: BASOPHILS % (AUTO) 0 % (0-10); EOSINOPHILS # (AUTO) 0.1 10^3/uL (0.0-0.3); EOSINOPHILS % (AUTO) 1 % (0-10); HEMATOCRIT 35 % (35-52); HEMOGLOBIN 11.5 G/DL (11.5-16.0); LYMPHOCYTES # (AUTO) 1.7 X 10^3 (1.0-4.0); LYMPHOCYTES % (AUTO) 18 % (12-44); MEAN CORPUSCULAR HEMOGLOBIN 29 PG (25-34); MEAN CORPUSCULAR HGB CONC 33 G/DL (32-36); MEAN CORPUSCULAR VOLUME 89 FL (80-99); MEAN PLATELET VOLUME 10.5 FL (7.4-10.4); MONOCYTES # (AUTO) 0.7 X 10^3 (0.0-1.0); MONOCYTES % (AUTO) 8 % (0-12); NEUTROPHILS % (AUTO) 73 % (42-75); PLATELET COUNT 200 10^3/uL (130-400); RED CELL DISTRIBUTION WIDTH 14.2 % (10.0-14.5); WHITE BLOOD COUNT 9.5 10^3/uL (4.3-11.0)
[2019-07-25 05:47] LABS: ALANINE AMINOTRANSFERASE 27 U/L (0-55); ALBUMIN 3.4 GM/DL (3.2-4.5); ALKALINE PHOSPHATASE 68 U/L (40-136); BILIRUBIN,TOTAL 0.8 MG/DL (0.1-1.0); BUN/CREATININE RATIO 15; CALCIUM 9.1 MG/DL (8.5-10.1); CARBON DIOXIDE 23 MMOL/L (21-32); CHLORIDE 109 MMOL/L (98-107); CREATININE SERUM 0.75 MG/DL (0.60-1.30); GFR ESTIMATED > 60; GLUCOSE 93 MG/DL (70-105); POTASSIUM 3.5 MMOL/L (3.6-5.0); SODIUM 141 MMOL/L (135-145); TOTAL PROTEIN 5.9 GM/DL (6.4-8.2)
[2019-07-25] MEDS ORDERED: LEVOTHYROXINE 25 MCG (LEVOTHROID) TAB PO SCH (06:30)
[2019-07-25] MEDS: RT-ADVAIR HFA 115/21 MCG PER PUFF IH SCH (07:17)
[2019-07-25 08:00] VITALS: BP 125/81
[2019-07-25] MEDS ORDERED: UMECLIDINIUM BROMIDE (INCRUSE ELLIPTA) 7'S IH SCH (08:00)
[2019-07-25] MEDS ORDERED: LORATADINE (CLARITIN) 10 MG TAB PO SCH (09:00)
[2019-07-25] MEDS ORDERED: KCL 20 MEQ TAB (K-DUR) PO ONE (09:00)
[2019-07-25] MEDS ORDERED: MULTIVIT W/MINERALS TAB (THERAGRAN M) PO SCH (09:00)
[2019-07-25] MEDS ORDERED: FLUoxetine HCL 20 MG (PROzac) CAP PO SCH (09:00)
[2019-07-25] MEDS ORDERED: CEFDINIR 300 MG (OMNICEF) CAP PO SCH (09:00)
--- NOTE | 2019-07-25 09:00 | Pulmonary Progress Note ---
Subjective Time Seen by a Provider: 09:00 Subjective/Events-last exam Pt appears to be doing better. Sepsis Event Evaluation Height, Weight, BMI Height: 5'2.00" Weight: 177lbs. 0oz. 80.785470fa; 33.62 BMI Method:Stated Focused Exam Lactate Level 07/23/19 07:38: Lactic Acid Level 3.27*H 07/23/19 10:14: Lactic Acid Level 2.62*H 07/24/19 16:40: Lactic Acid Level 0.94 Exam Exam Vital Signs Date Time Temp Pulse Resp B/P (MAP) Pulse Ox O2 Delivery O2 Flow Rate FiO2 07/25/19 08:00 36.5 64 20 125/81 (96) 92 Room Air 07/25/19 07:21 Room Air 07/25/19 07:20 Room Air 07/25/19 07:19 90 Room Air 07/25/19 04:16 36.5 108 18 97/50 (66) 90 Room Air 07/25/19 01:45 88 Room Air 07/25/19 00:54 37.2 108 20 112/70 (84) 94 Room Air 07/24/19 21:45 90 Room Air 07/24/19 21:45 98 Room Air 07/24/19 19:50 36.8 90 20 146/86 (106) 95 Room Air 07/24/19 16:00 37.3 98 18 142/86 (104) 96 Room Air 07/24/19 12:00 37.8 105 20 125/68 (87) 94 Room Air 07/24/19 10:39 92 Room Air I & O 07/25/19 07:00 Intake Total 2274 ml Output Total 2650 ml Balance -376 ml Height & Weight Height: 5'2.00" Weight: 177lbs. 0oz. 80.488314vj; 33.62 BMI Method:Stated General Appearance: No Apparent Distress, WD/WN, Anxious HEENT: PERRL/EOMI, Pharyngeal Erythema Neck: Non Tender, Supple Respiratory: Crackles, Decreased Breath Sounds Cardiovascular: No Murmur, Tachycardia Capillary Refill: Less Than 3 Seconds Gastrointestinal: normal bowel sounds, non tender, soft Extremity: Normal Range of Motion, Non Tender Neurologic/Psychiatric: Alert, Oriented x3, No Motor/Sensory Deficits Skin: Normal Color, Warm/Dry Lymphatic: No Adenopathy Results Lab Laboratory Tests 07/24/19 05:40 07/25/19 05:09 Assessment/Plan Assessment/Plan LLL pneumonia with sepsis -Cefepime - change to PO omnicef - needs total Abx 7days -August cultures - await final C&S Metabolic lactic acidosis -Continue IVF -Monitor Sinus tachy -IVF LALITHA SQUIRES DO Jul 25, 2019 09:00
[2019-07-25] MEDS: SENNA W/DOCUSATE (SENOKOT S) TABLET PO SCH (09:37)
[2019-07-25] MEDS: GABAPENTIN 300 MG (NEURONTIN) CAP PO SCH (09:37)
[2019-07-25] MEDS: PANTOPRAZOLE 40 MG (PROTONIX) TAB PO SCH (09:38)
--- NOTE | 2019-07-25 10:19 | Diagnostic Imaging Report ---
INDICATION: Pneumonia. COMPARISON: 07/23/2019 TECHNIQUE: Single radiograph of the chest dated 07/25/2019. FINDINGS: The cardiac silhouette is mildly enlarged, though stable. No significant pulmonary vascular congestion. Left basilar opacities are again identified, though slightly improved since the prior examination. Minimal right basilar interstitial opacities have developed. No significant right pleural effusion. Probable tiny left pleural effusion. No pneumothorax. No acute osseous abnormality. IMPRESSION: Improved though persistent left basilar infiltrate. Developing minimal right basilar atelectasis and/or pneumonitis. Dictated by: Dictated on workstation # [id number]
[2019-07-25] MEDS ORDERED: CEFD300C3 PO (10:45)
--- NOTE | 2019-07-25 10:48 | Discharge Summary ---
Discharge Summary Hospital Course Was the Problem List Reviewed?: Yes Problems/Dx: (1) Left lower lobe pneumonia Status: Acute Qualifiers: Qualified Codes: J18.1 - Lobar pneumonia, unspecified organism (2) COPD exacerbation Status: Acute Hospital Course Date of Admission: Jul 23, 2019 at 09:14 Admission Diagnosis : Family Physician/Provider: Kelechi Lan - [facility] Date of Discharge: 07/25/19 Discharge Diagnosis: Pneumonia, exacerbation of COPD, sepsis, elevated lactic acid Hospital Course: Patient had an uneventful hospital course after she was admitted for sepsis elevated lactic acid and found to have pneumonia. 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 Patient tolerated antibiotics and IV fluids well and those were discontinued once oral intake was adequate. Overall patient felt well did not require any steroids her lungs were much improved at time of discharge and was able to be discharged in improved condition. Labs and Pending Lab Test: Laboratory Tests 07/24/19 16:40: Lactic Acid Level 0.94 07/25/19 05:09: White Blood Count 9.5, Red Blood Count 3.91L, Hemoglobin 11.5, Hematocrit 35, Mean Corpuscular Volume 89, Mean Corpuscular Hemoglobin 29, Mean Corpuscular Hemoglobin Concent 33, Red Cell Distribution Width 14.2, Platelet Count 200, Mean Platelet Volume 10.5H, Neutrophils (%) (Auto) 73, Lymphocytes (%) (Auto) 18, Monocytes (%) (Auto) 8, Eosinophils (%) (Auto) 1, Basophils (%) (Auto) 0, Neutrophils # (Auto) 7.0, Lymphocytes # (Auto) 1.7, Monocytes # (Auto) 0.7, Eosinophils # (Auto) 0.1, Basophils # (Auto) 0.0, Sodium Level 141, Potassium Level 3.5L, Chloride Level 109H, Carbon Dioxide Level 23, Anion Gap 9, Blood Urea Nitrogen 11, Creatinine 0.75, Estimat Glomerular Filtration Rate > 60, BUN/Creatinine Ratio 15, Glucose Level 93, Calcium Level 9.1, Corrected Calcium 9.6, Total Bilirubin 0.8, Aspartate Amino Transf (AST/SGOT) 17, Alanine Aminotransferase (ALT/SGPT) 27, Alkaline Phosphatase 68, Total Protein 5.9L, Albumin 3.4 Microbiology 07/23/19 Blood Culture - Preliminary, Resulted No growth 07/23/19 Influenza Types A,B Antigen (MAL) - Final, Complete 07/23/19 Urine Culture - Final, Complete 3 or more isolates Home Meds Active Reported Seroquel (Quetiapine Fumarate) 100 Mg Tablet 150 Mg PO HS TAKES 1 & 1/2 (100MG) TABLETS Advair 250-50 Diskus (Fluticasone/Salmeterol) 1 Each Blst.w.dev 1 Puff IH BID Proair Hfa (Albuterol Sulfate) 1 Puff Puff 2 Puff IH Q4H PRN 1 PUFF = 90 MCG Atorvastatin Calcium 20 Mg Tablet 20 Mg PO HS Levothyroxine Sodium 25 Mcg Tablet 37.5 Mcg PO DAILY TAKES 1 & 1/2 (25MCG) TABLET Diclofenac Sodium 50 Mg Tablet.dr 50 Mg PO BID Omeprazole 40 Mg Capsule.dr 40 Mg PO BID Gabapentin 300 Mg Capsule 300 Mg PO BID Prozac (Fluoxetine HCl) 40 Mg Capsule 80 Mg PO DAILY TAKES 2 (40MG) CAPSULES Spiriva (Tiotropium [place]) 1 Inh Aerp 1 Cap IH HS Montelukast Sodium 10 Mg Tablet 10 Mg PO HS Multivitamins (Multivitamin) 1 Each Tablet 1 Tab PO DAILY Zyrtec (Cetirizine HCl) 10 Mg Tablet 10 Mg PO DAILY Fluticasone Propionate 16 Gm [place].susp 2 Sprays NS BID PRN Assessment/Pt Instructions Please see Asher Celestin as scheduled on 07/29/19 Discharge Planning: <30 minutes discharge planning Discharge Instructions Discharge Diet: No Restrictions Pneumonia Vaccine Order Indica: Yes Discharge Physical Examination Vital Signs Vital Signs Date Time Temp Pulse Resp B/P (MAP) Pulse Ox O2 Delivery O2 Flow Rate FiO2 07/25/19 10:28 93 Room Air 07/25/19 08:00 36.5 64 20 125/81 (96) General Appearance: No Apparent Distress, WD/WN Respiratory: Chest Non Tender, Normal Breath Sounds, No Accessory Muscle Use, No Respiratory Distress, Crackles (LLL) Neurologic/Psychiatric: Alert, Oriented x3, No Motor/Sensory Deficits, Normal Mood/Affect Allergies: Coded Allergies: Sulfa (Sulfonamide Antibiotics) (Unverified Allergy, Unknown, 06/08/14) Discharge Summary Date of Admission Jul 23, 2019 at 09:14 Date of Discharge Clinical Quality Measures DVT/VTE Risk/Contraindication: Risk Factor Score Per Nursin RFS Level Per Nursing on Admit: 4+=Very High FRANCK TUCKER DO Jul 25, 2019 10:48
[2019-07-25] MEDS: ETODOLAC 200 MG (LODINE) CAP PO SCH (11:11)
[2019-07-25 12:00] VITALS: BP 122/70
[2019-07-25] MEDS: ENOXAPARIN 40 MG/0.4 ML (LOVENOX) SYR SC SCH (12:18)
[2019-07-25 13:30] VITALS: BP 122/70
--- NOTE | 2019-07-25 13:30 | NUR ---
DEON SERVIN demonstrates understanding of discharge instructions and accurately returns instructions upon questioning. Copy of Post-Discharge Instructions and Medication Discharge Instructions given to PATIENT. DEON SERVIN is able to manage continuing needs after discharge. Patients belongings returned to PATIENT. Skin dry and intact; no breakdown noted. Patient discharged from [facility]- on 07/25/19 at 1330. DEON SERVIN left floor via W/C, accompanied by STAFF AND FAMILY.
== END 2019-07-25 13:30 | disposition home or self-care (01) | DRG 871 ==
LOC: EDUNIT# 07:20 → ER 07:21 → 4TH 09:14
PROVIDERS: ADMIT Internal Medicine; ATTEND Internal Medicine
DX: A41.9 Sepsis, unspecified organism (principal); J18.1 Lobar pneumonia, unspecified organism; J44.0 Chronic obstructive pulmonary disease with (acute) lower respiratory infection; J44.1 Chronic obstructive pulmonary disease with (acute) exacerbation; E87.2 Acidosis; K21.9 Gastro-esophageal reflux disease without esophagitis; M19.91 Primary osteoarthritis, unspecified site; F32.9 Major depressive disorder, single episode, unspecified; J30.2 Other seasonal allergic rhinitis
CPT/HCPCS: 36415; 71045; 80053; 81000; 83605; 83690; 84484; 85007; 85025; 85027; 85610; 85730; 87040; 87088; 87804; 93005; 94640; 94664; 94760; 96374

== ENCOUNTER → 2019-08-03 | Outpatient (CLI) | payer SELFPAY ==
[~2019-08-03] MED LIST changes: +ATOR20TA66 PO; +CEFD300C3 PO; +CETI10TA20 PO; +DICL50TA6 PO; +FLUO40CA12 PO; +FLUT1DIS26 IH; +LEVO25TA5 PO; +MONT10TA24 PO; +MULT1TAB69 PO; +OMEP40CA36 PO; +QUET100T PO; +RT-ALBUINH IH
== END ==
LOC: ORTHO 08:49
PROVIDERS: ATTEND Orthopaedic Surgery
DX: M25.511 Pain in right shoulder (principal)

== ENCOUNTER 2019-08-29 11:12 | Emergency (ER) | payer SELFPAY ==
[~2019-08-29] VITALS: Ht 157 cm; Wt 80.3 kg
--- NOTE | 2019-08-29 11:30 | ED Upper Extremity ---
General Chief Complaint: Upper Extremity Stated Complaint: FALL - R ARM / RIB PAIN Nursing Triage Note: PT AMBULATE TO TRIAGE WITH C/O RIGHT ARM AND RIB PAIN STARTING A COUPLE WEEKS AGO AFTER A FALL. PT STATES WAS SEEN [facility] AND WAS TOLD THAT THERE WAS NO FX IN RIBS OR ARM. PT STATES PAIN IS WORSE TODAY WITH PAIN ON INSPIRATION. Nursing Sepsis Screen: No Definite Risk Source: patient Exam Limitations: no limitations History of Present Illness Date Seen by Provider: Aug 29, 2019 Time Seen by Provider: 11:28 Initial Comments To ER with reports of right shoulder and right anterolateral lower rib pain. She fell a few weeks ago and has had some pain intermittently since then, today the pains a bit worse than it has been. Onset: just prior to arrival Severity: moderate Pain/Injury Location: right shoulder Method of Injury: fell (3 weeks ago) Modifying Factors: Worse With Movement Allergies and Home Medications Allergies Coded Allergies: Sulfa (Sulfonamide Antibiotics) (Unverified Allergy, Unknown, 06/08/14) Home Medications Albuterol Sulfate 1 Puff Puff, 2 PUFF IH Q4H PRN for SHORTNESS OF BREATH, (Reported) 1 PUFF = 90 MCG Atorvastatin Calcium 20 Mg Tablet, 20 MG PO HS, (Reported) Cefdinir 300 Mg Capsule, 300 MG PO BID Prescribed by: FRANCK TUCKER on 07/25/19 1045 Cetirizine HCl 10 Mg Tablet, 10 MG PO DAILY, (Reported) Diclofenac Sodium 50 Mg Tablet.dr, 50 MG PO BID, (Reported) Fluoxetine HCl 40 Mg Capsule, 80 MG PO DAILY, (Reported) TAKES 2 (40MG) CAPSULES Fluticasone Propionate 16 Gm [place].susp, 2 SPRAYS NS BID PRN for ALLERGIES, (Reported) Fluticasone/Salmeterol 1 Each Blst.w.dev, 1 PUFF IH BID, (Reported) Gabapentin 300 Mg Capsule, 300 MG PO BID, (Reported) Levothyroxine Sodium 25 Mcg Tablet, 37.5 MCG PO DAILY, (Reported) TAKES 1 & 1/2 (25MCG) TABLET Montelukast Sodium 10 Mg Tablet, 10 MG PO HS, (Reported) Multivitamin 1 Each Tablet, 1 TAB PO DAILY, (Reported) Omeprazole 40 Mg Capsule.dr, 40 MG PO BID, (Reported) Quetiapine Fumarate 100 Mg Tablet, 150 MG PO HS, (Reported) TAKES 1 & 1/2 (100MG) TABLETS Tiotropium [place] 1 Inh Aerp, 1 CAP IH HS, (Reported) Patient Home Medication List Home Medication List Reviewed: Yes Review of Systems Constitutional: see HPI EENTM: see HPI Respiratory: no symptoms reported Cardiovascular: no symptoms reported Genitourinary: no symptoms reported Musculoskeletal: see HPI Skin: no symptoms reported Psychiatric/Neurological: No Symptoms Reported Past Liavjth-Mzsdhs-Lxldgo Hx Patient Social History Alcohol Use: Denies Use Recreational Drug Use: No Smoking Status: Never a Smoker 2nd Hand Smoke Exposure: No Recent Foreign Travel: No Contact w/Someone Who Travel: No Recent Infectious Disease Expo: No Recent Hopitalizations: No Physical Abuse: No Sexual Abuse: No Mistreated: No Fear: No Immunizations Up To Date Tetanus Booster (TDap): Unknown Date of Pneumonia Vaccine: Jul 23, 2013 Date of Influenza Vaccine: Aug 06, 2016 Seasonal Allergies Seasonal Allergies: Yes Past Medical History Surgeries: Yes (HIATAL HERNIA REPAIR, CARPAL TUNNEL) Abdominal, Appendectomy, Gallbladder, Hysterectomy, Orthopedic Respiratory: Yes Asthma, COPD Currently Using CPAP: No Currently Using BIPAP: No Cardiac: No Neurological: No 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 Disorders: No 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 0oz. 80.899859yh; 32.00 BMI Method:Stated General Appearance: WD/WN, no apparent distress HEENT: PERRL/EOMI, normal ENT inspection Respiratory: no respiratory distress, no accessory muscle use Gastrointestinal: normal bowel sounds, non tender Shoulder: normal inspection, non-tender, no evidence of injury, ecchymosis (old yellowish bruising lateral right upper arm. ) Elbow/Forearm: normal inspection, non-tender Hand: normal inspection, non-tender Neurologic/Psychiatric: alert, normal mood/affect, oriented x 3 Skin: normal color, warm/dry Progress/Results/Core Measures Results/Orders My Orders Orders - NILA LEE APRN Shoulder, Right, 3 Views (08/29/19 11:28) Ribs/Unilateral With Chest (08/29/19 11:28) Vital Signs/I&O 08/29/19 11:18 Temp 36.8 Pulse 85 Resp 17 B/P (MAP) 123/82 (96) O2 Delivery Room Air Blood Pressure Mean: 96 Departure Impression Primary Impression: Chest wall pain Disposition: 01 HOME, SELF-CARE Condition: Stable Departure-Patient Inst. Decision time for Depature: 12:18 Referrals: [facility] (PCP/Family) Primary Care Physician Patient Instructions: Chest Pain Add. Discharge Instructions: 1. Tylenol and ibuprofen for pain control 2. Return to ER for any concerns 3. All discharge instructions reviewed with patient and/or family. Voiced understanding. NILA LEE APRN Aug 29, 2019 11:30
--- NOTE | 2019-08-29 12:08 | Diagnostic Imaging Report ---
EXAMINATION: PA chest and right ribs at 1150 hours. INDICATION: Fell, chest pain. A single PA view of the chest and three views of the right ribs were obtained. The heart size is within normal limits and similar to the prior exam of 07/25/2019. The bibasilar atelectasis/infiltrate and small left pleural effusion seen previously have essentially resolved. The lungs are generally clear. The mediastinum is not widened. The views of the ribs show no evidence for a displaced rib fracture. There is no sign of a pneumothorax either. IMPRESSION: 1. The appearance of the chest has improved since the prior exam as both lung bases are much better aerated. There is no evidence for an acute cardiopulmonary abnormality at this time. 2. There is no displaced rib fracture on the right. Dictated by: Dictated on workstation # [id number]
--- NOTE | 2019-08-29 12:08 | Diagnostic Imaging Report ---
Right shoulder at 11:52. Indication: Fell 2 weeks ago, shoulder pain. 3 views were obtained. There is no fracture, dislocation or acute bony abnormality evident. As noted on the prior exam of 07/02/2019 there is moderate narrowing of the glenohumeral joint and the acromioclavicular joint. The soft tissues are unremarkable. Impression: There is no evidence for an acute bony abnormality. Dictated by: Dictated on workstation # [id number]
[2019-08-29 12:22] VITALS: BP 129/81
== END 2019-08-29 12:22 | disposition home or self-care (01) ==
LOC: EDUNIT# 11:12 → ER 11:13
DX: S40.021A Contusion of right upper arm, initial encounter (principal); R07.89 Other chest pain; J44.9 Chronic obstructive pulmonary disease, unspecified; F32.9 Major depressive disorder, single episode, unspecified; K21.9 Gastro-esophageal reflux disease without esophagitis; Z88.2 Allergy status to sulfonamides; Z79.51 Long term (current) use of inhaled steroids; Z90.710 Acquired absence of both cervix and uterus; Z90.49 Acquired absence of other specified parts of digestive tract; W19.XXXA Unspecified fall, initial encounter
CPT/HCPCS: 71101; 73030

== ENCOUNTER → 2019-09-23 | Outpatient (CLI) | payer OTHER ==
--- NOTE | 2019-09-23 14:44 | Diagnostic Imaging Report ---
INDICATION: Dyspnea. COMPARISON: Comparison made with prior examination from 08/29/2019. FINDINGS: Heart size is normal. Mediastinum is unremarkable. Lungs are clear. There is no pleural effusion or pneumothorax. IMPRESSION: No acute cardiopulmonary abnormality. Dictated by: Dictated on workstation # [id number]
== END ==
LOC: RAD 11:51
PROVIDERS: ATTEND Nurse Practitioner Family
DX: J45.909 Unspecified asthma, uncomplicated (principal)
CPT/HCPCS: 71046

== ENCOUNTER → 2019-09-24 | Outpatient (CLI) | payer SELFPAY | LOC: ORTHO 09:38 | PROVIDERS: ATTEND Orthopaedic Surgery | DX: S50.311A Abrasion of right elbow, initial encounter (principal); M25.511 Pain in right shoulder; M79.601 Pain in right arm; J40 Bronchitis, not specified as acute or chronic; J45.909 Unspecified asthma, uncomplicated; W19.XXXA Unspecified fall, initial encounter ==

== ENCOUNTER 2019-10-08 07:15 | Inpatient (IN) | payer OTHER ==
[~2019-10-08] VITALS: Ht 151.5 cm; Wt 80.9 kg
[~2019-10-08 07:15] MED LIST changes: +OMEP40CA27 PO; -OMEP40CA36 PO; -TRAM50TA2 PO; +TRM50T PO
[2019-10-08] MEDS ORDERED: LACTATED RINGERS 1,000 ML IV ONE ×2 (07:23→07:25)
[2019-10-08] MEDS ORDERED: ACETAMINOPHEN 500 MG TAB (TYLENOL) ONE (07:23)
[2019-10-08] MEDS ORDERED: ACETAMINOPHEN 500 MG TAB (TYLENOL) PO PRN (07:30)
[2019-10-08 07:38] LABS: BASOPHILS % (AUTO) 0 % (0-10); EOSINOPHILS # (AUTO) 0.1 10^3/uL (0.0-0.3); EOSINOPHILS % (AUTO) 1 % (0-10); HEMATOCRIT 41 % (35-52); HEMOGLOBIN 13.4 G/DL (11.5-16.0); LYMPHOCYTES # (AUTO) 0.6 X 10^3 (1.0-4.0); LYMPHOCYTES % (AUTO) 5 % (12-44); MEAN CORPUSCULAR HEMOGLOBIN 29 PG (25-34); MEAN CORPUSCULAR HGB CONC 33 G/DL (32-36); MEAN CORPUSCULAR VOLUME 89 FL (80-99); MEAN PLATELET VOLUME 10.1 FL (7.4-10.4); MONOCYTES # (AUTO) 0.3 X 10^3 (0.0-1.0); MONOCYTES % (AUTO) 3 % (0-12); NEUTROPHILS # (AUTO) 11.2 X 10^3 (1.8-7.8); NEUTROPHILS % (AUTO) 92 % (42-75); PLATELET COUNT 265 10^3/uL (130-400); RED CELL DISTRIBUTION WIDTH 15.1 % (10.0-14.5); WHITE BLOOD COUNT 12.2 10^3/uL (4.3-11.0)
--- NOTE | 2019-10-08 07:40 | ED General ---
General Chief Complaint: Respiratory Problems Stated Complaint: SOA;DIZZINESS Nursing Triage Note: PT TO RM 6 BY WHEELCHAIR WITH COMPLAINT OF DIZZINESS THAT STARTED AT 4AM, CHEST PAIN SINCE LAST NIGHT, AND COUGH/CONGESTION. Nursing Sepsis Screen: No Definite Risk Source of Information: Patient Exam Limitations: No Limitations History of Present Illness Date Seen by Provider: Oct 08, 2019 Time Seen by Provider: 07:28 Initial Comments Here with report of fever, dizziness and shortness of air that started at around 4 AM. Also complains of chest congestion in the left lower aspect. Does have history of pneumonia on the left and July. Arrives with fever of 39C. He i s short of breath. Denies nausea, vomiting or diarrhea. Reports taking her meds as directed. Complains of being thirsty. Timing/Duration: 4-6 Hours Severity: Moderate Associated Systoms: Chest Pain, Cough, Fever/Chills; No Nausea/Vomiting; Shortness of Air; No Weakness Allergies and Home Medications Allergies Coded Allergies: Sulfa (Sulfonamide Antibiotics) (Unverified Allergy, Unknown, 06/08/14) Home Medications Albuterol Sulfate 1 Puff Puff, 2 PUFF IH Q4H PRN for SHORTNESS OF BREATH, (Reported) 1 PUFF = 90 MCG Atorvastatin Calcium 20 Mg Tablet, 20 MG PO HS, (Reported) Cefdinir 300 Mg Capsule, 300 MG PO BID Prescribed by: FRANCK TUCKER on 07/25/19 1045 Cetirizine HCl 10 Mg Tablet, 10 MG PO DAILY, (Reported) Diclofenac Sodium 50 Mg Tablet.dr, 50 MG PO BID, (Reported) Fluoxetine HCl 40 Mg Capsule, 80 MG PO DAILY, (Reported) TAKES 2 (40MG) CAPSULES Fluticasone Propionate 16 Gm [place].susp, 2 SPRAYS NS BID PRN for ALLERGIES, (Reported) Fluticasone/Salmeterol 1 Each Blst.w.dev, 1 PUFF IH BID, (Reported) Gabapentin 300 Mg Capsule, 300 MG PO BID, (Reported) Levothyroxine Sodium 25 Mcg Tablet, 37.5 MCG PO DAILY, (Reported) TAKES 1 & 1/2 (25MCG) TABLET Montelukast Sodium 10 Mg Tablet, 10 MG PO HS, (Reported) Multivitamin 1 Each Tablet, 1 TAB PO DAILY, (Reported) Omeprazole 40 Mg Capsule.dr, 40 MG PO BID, (Reported) Quetiapine Fumarate 100 Mg Tablet, 150 MG PO HS, (Reported) TAKES 1 & 1/2 (100MG) TABLETS Tiotropium [place] 1 Inh Aerp, 1 CAP IH HS, (Reported) Patient Home Medication List Home Medication List Reviewed: Yes Review of Systems Review of Systems Constitutional: see HPI, chills, fever EENTM: no symptoms reported Respiratory: see HPI, short of breath Cardiovascular: see HPI, chest pain (left-sided tightness nonradiating) Gastrointestinal: abdominal pain (LUQ); No nausea, No vomiting Genitourinary: no symptoms reported Musculoskeletal: muscle pain; No muscle weakness Skin: no symptoms reported Psychiatric/Neurological: No Symptoms Reported All Other Systems Reviewed Negative Unless Noted: Yes Past Rfkscci-Bpdwih-Felfzb Hx Past Med/Social Hx: Reviewed Nursing Past Med/Soc Hx Patient Social History Alcohol Use: Denies Use Recreational Drug Use: No Smoking Status: Never a Smoker 2nd Hand Smoke Exposure: No Recent Foreign Travel: No Contact w/Someone Who Travel: No Recent Infectious Disease Expo: No Recent Hopitalizations: No Physical Abuse: No Sexual Abuse: No Mistreated: No Fear: No Immunizations Up To Date Tetanus Booster (TDap): Unknown Date of Pneumonia Vaccine: Jul 23, 2013 Date of Influenza Vaccine: Aug 06, 2016 Seasonal Allergies Seasonal Allergies: Yes Past Medical History Surgeries: Yes (HIATAL HERNIA REPAIR, CARPAL TUNNEL) Abdominal, Appendectomy, Gallbladder, Hysterectomy, Orthopedic Respiratory: Yes Asthma, COPD Currently Using CPAP: No Currently Using BIPAP: No Cardiac: No Neurological: No 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 Disorders: No 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, 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 Genitourinary: No Gastrointestinal: Yes Gastroesophageal Reflux Musculoskeletal: Yes Arthritis Endocrine: No HEENT: No Loss of Vision: Bilateral Hearing Impairment: Denies Cancer: No Psychosocial: Yes Depression Integumentary: No Blood Disorders: No Adverse Reaction/Blood Tranf: No Family Medical History Reviewed Nursing Family Hx No Pertinent Family Hx Physical Exam-Suspected Sepsis Physical Exam Vital Signs Vital Signs - First Documented 10/08/19 07:15 Temp 39.2 Pulse 124 Resp 24 B/P (MAP) 116/75 (89) Pulse Ox 94 O2 Delivery Room Air Capillary Refill : Less Than 3 Seconds Blood Pressure Mean: 89 POS Height, Weight, BMI Height: 5'2.00" Weight: 177lbs. 0oz. [id number]; 32.00 BMI Method:Stated General Appearance: No Apparent Distress, WD/WN HEENT: PERRL/EOMI, TMs Normal, Pharynx Normal Neck: Non Tender, Supple Respiratory: Lungs Clear, Normal Breath Sounds Cardiovascular: No Murmur, Tachycardia Gastrointestinal: Non Tender, Soft Back: Normal Inspection, No CVA Tenderness, No Vertebral Tenderness Extremity: Normal Inspection, Normal Range of Motion, Non Tender, No Calf Tenderness Neurologic/Psychiatric: Alert, Oriented x3 Skin: normal color, warm/dry Focused Exam Lactate Level 10/08/19 07:21: Lactic Acid Level 2.80*H Lactic Acid Level Laboratory Tests Test 10/08/19 07:21 Lactic Acid Level 2.80 MMOL/L (0.50-2.00) *H Progress/Results/Core Measures Suspected Sepsis Recent Fever Within 48 Hours: No Infection Criteria Present: None New/Unexplained Altered Menta: No Sepsis Screen: No Definite Risk SIRS Temperature: Pulse: 124 Respiratory Rate: 24 Laboratory Tests 10/08/19 07:21: White Blood Count 12.2H Blood Pressure 116 /75 Mean: 89 10/08/19 07:21: Lactic Acid Level 2.80*H Laboratory Tests 10/08/19 07:21: Creatinine 0.96, INR Comment 1.0, Platelet Count 265, Total Bilirubin 0.9 Results/Orders Lab Results Laboratory Tests Test 10/08/19 07:21 10/08/19 08:07 Range/Units White Blood Count 12.2 H 4.3-11.0 10^3/uL Red Blood Count 4.62 4.35-5.85 10^6/uL Hemoglobin 13.4 11.5-16.0 G/DL Hematocrit 41 35-52 % Mean Corpuscular Volume 89 80-99 FL Mean Corpuscular Hemoglobin 29 25-34 PG Mean Corpuscular Hemoglobin Concent 33 32-36 G/DL Red Cell Distribution Width 15.1 H 10.0-14.5 % Platelet Count 265 130-400 10^3/uL Mean Platelet Volume 10.1 7.4-10.4 FL Neutrophils (%) (Auto) 92 H 42-75 % Lymphocytes (%) (Auto) 5 L 12-44 % Monocytes (%) (Auto) 3 0-12 % Eosinophils (%) (Auto) 1 0-10 % Basophils (%) (Auto) 0 0-10 % Neutrophils # (Auto) 11.2 H 1.8-7.8 X 10^3 Lymphocytes # (Auto) 0.6 L 1.0-4.0 X 10^3 Monocytes # (Auto) 0.3 0.0-1.0 X 10^3 Eosinophils # (Auto) 0.1 0.0-0.3 10^3/uL Basophils # (Auto) 0.0 0.0-0.1 10^3/uL Neutrophils % (Manual) 93 % Lymphocytes % (Manual) 3 % Monocytes % (Manual) 4 % Blood Morphology Comment NORMAL Prothrombin Time 13.2 12.2-14.7 SEC INR Comment 1.0 0.8-1.4 Activated Partial Thromboplast Time 25 24-35 SEC Sodium Level 142 135-145 MMOL/L Potassium Level 3.8 3.6-5.0 MMOL/L Chloride Level 107 98-107 MMOL/L Carbon Dioxide Level 22 21-32 MMOL/L Anion Gap 13 5-14 MMOL/L Blood Urea Nitrogen 13 7-18 MG/DL Creatinine 0.96 0.60-1.30 MG/DL Estimat Glomerular Filtration Rate 59 BUN/Creatinine Ratio 14 Glucose Level 141 H 70-105 MG/DL Lactic Acid Level 2.80 *H 0.50-2.00 MMOL/L Calcium Level 9.2 8.5-10.1 MG/DL Corrected Calcium 9.4 8.5-10.1 MG/DL Total Bilirubin 0.9 0.1-1.0 MG/DL Aspartate Amino Transf (AST/SGOT) 19 5-34 U/L Alanine Aminotransferase (ALT/SGPT) 40 0-55 U/L Alkaline Phosphatase 81 40-136 U/L Troponin I < 0.028 <0.028 NG/ML Total Protein 6.3 L 6.4-8.2 GM/DL Albumin 3.8 3.2-4.5 GM/DL Amylase Level 47 25-125 U/L Lipase 16 8-78 U/L Urine Color YELLOW Urine Clarity CLEAR Urine pH 8.0 5-9 Urine Specific [place] 1.015 L 1.016-1.022 Urine Protein NEGATIVE NEGATIVE Urine Glucose (UA) NEGATIVE NEGATIVE Urine Ketones NEGATIVE NEGATIVE Urine Nitrite NEGATIVE NEGATIVE Urine Bilirubin NEGATIVE NEGATIVE Urine Urobilinogen 1.0 < = 1.0 MG/DL Urine Leukocyte Esterase NEGATIVE NEGATIVE Urine RBC (Auto) NEGATIVE NEGATIVE Urine RBC NONE /HPF Urine WBC NONE /HPF Urine Squamous Epithelial Cells 0-2 /HPF Urine Crystals NONE /LPF Urine Bacteria NEGATIVE /HPF Urine Casts NONE /LPF Urine Mucus NEGATIVE /LPF Urine Culture Indicated NO My Orders Orders - LUZ GOSS MD Ed Iv/Invasive Line Start (10/08/19 07:25) Lactated Ringers (Lr 1000 Ml Iv Solution (10/08/19 07:25) Cbc With Automated Diff (10/08/19 07:25) Comprehensive Metabolic Panel (10/08/19 07:25) Blood Culture (10/08/19 07:25) Sputum Culture (10/08/19 07:25) Urinalysis (10/08/19 07:25) Urine Culture (10/08/19 07:25) Protime With Inr (10/08/19 07:25) Partial Thromboplastin Time (10/08/19 07:25) Chest 1 View, Ap/Pa Only (10/08/19 07:25) Acetaminophen Tablet (Tylenol Tablet) (10/08/19 07:30) Vital Signs Adult Sepsis Patie Q15M (10/08/19 07:25) O2 (10/08/19 07:25) Remove Rings In Anticipation O (10/08/19 07:25) Lactic Acid Analyzer (10/08/19 07:25) Influenza A And B Antigens (10/08/19 07:25) Lactated Ringers (Lr 1000 Ml Iv Solution (10/08/19 07:23) Acetaminophen Tablet (Tylenol Tablet) (10/08/19 07:23) Manual Differential (10/08/19 07:21) Troponin I (10/08/19 07:40) Ekg Tracing (10/08/19 07:40) Amylase (10/08/19 07:42) Lipase (10/08/19 07:42) Mrsa Screen (Icu,Preop,Cath) (10/08/19 07:19) Medications Given in ED Current Medications Medications Dose Ordered Sig/Basilio Route Start Time Stop Time Status Last Admin Dose Admin Acetaminophen 1,000 mg ONCE PRN PO 10/08/19 07:30 10/08/19 07:31 DC 10/08/19 07:30 1,000 MG Lactated Ringer's 1,000 ml @ 0 mls/hr Q0M ONCE IV 10/08/19 07:25 10/08/19 07:28 DC 10/08/19 07:30 500 MLS/HR Vital Signs/I&O 10/08/19 07:15 Temp 39.2 Pulse 124 Resp 24 B/P (MAP) 116/75 (89) Pulse Ox 94 O2 Delivery Room Air Capillary Refill : Less Than 3 Seconds Blood Pressure Mean: 89 POS Progress Note : Progress Note Seen and evaluated. IV, labs, blood cultures, lactic acid, UA, chest x-ray and LR 1 L bolus ordered. Acetaminophen 1000 mg by mouth. Patient has vague comp laints of chest pain which she actually is saying is tightness or congestion but we will go ahead and get EKG and troponin. Influenza screen ordered as well. Monitor patient. 0839: I discussed the case with Dr. Tucker as she has left lower lobe pneumonia. Consult Dr. García completed. Cefepime 2 g IV. Patient agrees to admission. ECG Initial ECG Impression Date: Oct 08, 2019 Initial ECG Impression Time: 08:26 Initial ECG Rate: 104 Initial ECG Rhythm: S.Tach Initial ECG Comparisson: Unchanged Comment Sinus rhythm with leftward axis. No evidence of ST elevation NH. Unchanged from previous. Interpreted by me. Departure Communication (Admissions) Time/Spoke to Admitting Phy: 08:33 Time/Spoke to Consulting Phy: 08:35 Impression Primary Impression: Pneumonia involving left lung Qualified Codes: J18.1 - Lobar pneumonia, unspecified organism Disposition: ADMITTED INPATIENT Condition: Stable Admissions Decision to Admit Reason: Admit from ER (General) Decision to Admit/Date: Oct 08, 2019 Time/Decision to Admit Time: 08:33 Departure-Patient Inst. Referrals: [facility] (PCP/Family) Primary Care Physician LUZ GOSS MD Oct 08, 2019 07:39 POS
[2019-10-08 07:51] LABS: ALBUMIN 3.8 GM/DL (3.2-4.5); BILIRUBIN,TOTAL 0.9 MG/DL (0.1-1.0); CALCIUM 9.2 MG/DL (8.5-10.1); CREATININE SERUM 0.96 MG/DL (0.60-1.30); POTASSIUM 3.8 MMOL/L (3.6-5.0); TOTAL PROTEIN 6.3 GM/DL (6.4-8.2)
[2019-10-08 07:54] LABS: PROTHROMBIN TIME PATIENT 13.2 SEC (12.2-14.7)
[2019-10-08 08:00] LABS: AMYLASE 47 U/L (25-125); LIPASE 16 U/L (8-78)
--- NOTE | 2019-10-08 08:11 | Diagnostic Imaging Report ---
INDICATION: Dizziness. Chest pain. Cough. Comparison with 09/23/2019. FINDINGS: There has been development of some alveolar infiltrate in the left lung base since previous exam. Left upper lung is clear. The right lung is clear. The heart is not enlarged. No pneumothorax or pleural effusion. IMPRESSION: Developing left lower lobe infiltrate consistent with pneumonia. Dictated by: Dictated on workstation # [id number]
[2019-10-08 08:12] LABS: LYMPHOCYTES % (MANUAL) 3 %; MONOCYTES % (MANUAL) 4 %; NEUTROPHILS % (MANUAL) 93 %; RBC MORPH NORMAL
[2019-10-08 08:12] LABS: BILIRUBIN,URINE NEGATIVE (NEGATIVE); CLARITY,URINE CLEAR; COLOR,URINE YELLOW; GLUCOSE, URINE (UA) NEGATIVE (NEGATIVE); KETONES,URINE NEGATIVE (NEGATIVE); LEUKOCYTE ESTERASE ,URINE NEGATIVE (NEGATIVE); NITRITE,URINE NEGATIVE (NEGATIVE); PROTEIN,URINE NEGATIVE (NEGATIVE)
[2019-10-08 08:21] LABS: BACTERIA,URINE NEGATIVE /HPF; SQUAMOUS EPITHELIAL CELL,UR 0-2 /HPF
[2019-10-08] MEDS ORDERED: CEFEPIME INJECTION 2,000 MG in WATER (STERILE) FOR INJECTION 20 ML IV STA (08:43)
--- NOTE | 2019-10-08 09:30 | NUR ---
DEON SERVIN admitted to room 425-1, with an admitting diagnosis of PNEUMONIA, on 10/08/19 from ER via W/C, accompanied by STAFF.DEON SERVIN introduced to surroundings, call light, bed controls, phone, TV, temperature control, lights, meal times, smoking policy, visitor policy, side rail policy, bathrooms and showers. Patient Rights given to patient in the handbook.DEON SERVIN verbalizes understanding that [facility] is not responsible for the loss or damage to any personal effects or valuables that are kept in the patients posession during their hospitalization. The following Patient Care Plans were discussed with the PT: Discharge Planning, PAIN CONTROL,IV THERAPY, and TESTS AND PROCEDURES. DEON SERVIN verbalizes understanding of Interdisciplinary Patient Education. Patient and/or family were informed about the Rapid Response Team and its purpose.
[2019-10-08 09:55] VITALS: BP 116/75
[2019-10-08] MEDS ORDERED: CEFEPIME 2,000 MG/SWFI 20 ML IV PUSH IV SCH ×2 (10:00)
[2019-10-08] MEDS ORDERED: ONDANSETRON 4 MG/2 ML (SDV) Z0FRAN IVP PRN (10:15)
[2019-10-08 10:21] VITALS: BP 111/62
--- NOTE | 2019-10-08 11:30 | History & Physical-Hospitalist ---
NONI,SHAHZAD,MED STUDENT 10/08/19 1130: History of Present Illness HPI/Chief Complaint Patient is a 64 y/o female who presented to the ED today after waking this morning around 0200 with fever, chills, productive cough, and shortness of breath. She was diagnosed with pneumonia and placed on cefepime and received breathing treatments. Her shortness of breath, fever, and chills have improved. She continues to complain of cough but states that it is a more dry cough now. The cough is made worse with deep inspiration and is associated with headache, neck pain, dizziness, and chest pain. She was evaluated in the ED for the chest pain with EKG and troponins which were negative for acute process. She had a flu shot 2 weeks ago. Denies abdominal pain, constipation, diarrhea, or dysuria. Date Seen 10/08/19 Time Seen by a Provider: 11:16 Attending Physician Keira Tucker DO [email or web address] Ref[facility] Date of Admission Oct 08, 2019 at 09:12 Home Medications & Allergies Home Medications Reviewed patient Home Medication Reconciliation performed by pharmacy medication reconciliations plumbing service technician and/or nursing. Patients Allergies have been reviewed. 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) Alcohol Use: Denies Use Recreational Drug Use: No Smoking Status: Never a Smoker 2nd Hand Smoke Exposure: No Recent Foreign Travel: No Contact w/other who traveled: No Recent Hopitalizations: No Recent Infectious Disease Expo: No Immunizations Up To Date Tetanus Booster (TDap): Unknown Date of Pneumonia Vaccine: Jul 23, 2013 Date of Influenza Vaccine: Aug 06, 2016 Seasonal Allergies Seasonal Allergies: Yes Past Medical History Surgeries: Abdominal, Appendectomy, Gallbladder, Hysterectomy, Orthopedic Respiratory: COPD Currently Using CPAP: No Currently Using BIPAP: No 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: No Hysterectomy, Menopausal Gastrointestinal: Gastroesophageal Reflux Musculoskeletal: Arthritis Loss of Vision: Bilateral Hearing Impairment: Denies Psychosocial: Depression History of Blood Disorders: No Adverse Reaction to Blood Parada: No Family History Reviewed Nursing Family Hx No Pertinent Family Hx Review of Systems Constitutional: chills, dizziness, fever EENTM: No hearing loss, No vision loss Respiratory: cough, phlegm, short of breath Cardiovascular: chest pain; No palpitations Gastrointestinal: No abdominal pain, No constipation, No diarrhea Genitourinary: No dysuria, No hematuria Musculoskeletal: muscle pain, neck pain Skin: No lesions, No rash Psychiatric/Neurological: Denies Anxiety, Denies Depressed Physical Exam Physical Exam Vital Signs Vital Signs - First Documented 10/08/19 10/08/19 07:15 09:55 Temp 39.2 Pulse 124 Resp 24 B/P (MAP) 116/75 (89) Pulse Ox 94 O2 Delivery Room Air FiO2 21 Capillary Refill : Less Than 3 Seconds Height, Weight, BMI Height: 5'2.00" Weight: 177lbs. 0oz. [id number]; 35.24 BMI Method:Stated General Appearance: No Apparent Distress, WD/WN HEENT: PERRL/EOMI, Pharynx Normal Neck: Full Range of Motion, Supple Respiratory: Chest Non Tender, Lungs Clear, Normal Breath Sounds, No Accessory Muscle Use, No Respiratory Distress Cardiovascular: Regular Rate, Rhythm, No Edema, No Murmur Gastrointestinal: Non Tender, Soft; No Distended Extremity: Non Tender, No Pedal Edema Neurologic/Psychiatric: Alert, No Motor/Sensory Deficits, Normal Mood/Affect Skin: Normal Color, Warm/Dry Lymphatic: No Adenopathy Results Results/Procedures Labs Laboratory Tests 10/08/19 07:21 Patient resulted labs reviewed. Assessment/Plan Admission Diagnosis Reason for Inpatient Admission: Pneumonia Fever Assessment and Plan Assessment: Pneumonia Fever COPD Plan: Cefepime IV fluids Influenza swab pending Dr. García consult Albuterol treatments PRN Fever improving KEIRA TUCKER DO 10/08/192137: History of Present Illness HPI/Chief Complaint Chief complaint: Fever with cough HPI: This is a 64yoWF clinic Pt of [facility] who presents to the ER with cough and fever for the past several days, found to have a pneumonia with elevated lactic acid of 2.9 and hypoxia. She was given aggressive IV fluids and IV antibiotics and nebulizer treatments, Dr. García will be consulted and Pt was placed inpatient status for IV antibiotics and resolution of sepsis. Source: patient Exam Limitations: no limitations Past Ealmxsl-Ltgfzf-Xsflfj Hx Past Med/Social Hx: Reviewed Nursing Past Med/Soc Hx, Reviewed and Corrections made Patient Social History Smoking Status: Former Smoker Review of Systems Constitutional: fever Respiratory: cough, dyspnea on exertion Physical Exam Physical Exam General Appearance: No Apparent Distress, Anxious, Chronically ill Eyes: Right Eye Normal Inspection, Right Eye PERRL HEENT: PERRL/EOMI, Normal ENT Inspection, Pharynx Normal, Moist Mucous Membranes Neck: Full Range of Motion, Normal Inspection, Non Tender Respiratory: Chest Non Tender, No Accessory Muscle Use, No Respiratory Distress, Crackles, Decreased Breath Sounds, Wheezing Cardiovascular: Regular Rate, Rhythm, No Edema, No Gallop, No JVD, No Murmur, Normal Peripheral Pulses Gastrointestinal: Normal Bowel Sounds, No Organomegaly, No Pulsatile Mass, Non Tender, Soft Back: Normal Inspection, No CVA Tenderness, No Vertebral Tenderness Extremity: Normal Capillary Refill, Normal Inspection, Normal Range of Motion, Non Tender, No Calf Tenderness, No Pedal Edema Neurologic/Psychiatric: Alert, Oriented x3, No Motor/Sensory Deficits, Normal Mood/Affect Skin: Normal Color, Warm/Dry Lymphatic: No Adenopathy Assessment/Plan Admission Diagnosis Assessment: PNA Sepsis Fever Leukocytosis COPD Plan: ABx IVF Home meds O2 Admission Status: Inpatient Order (span 2 midnights) Reason for Inpatient Admission: PNA with sepsis Diagnosis/Problems Diagnosis/Problems (1) Sepsis (2) Pneumonia involving left lung Status: Acute Qualifiers: Pneumonia type: due to unspecified organism Lung location: lower lobe of lung Qualified Codes: J18.1 - Lobar pneumonia, unspecified organism (3) COPD exacerbation Status: Acute (4) Chronic cough Status: Acute Supervisory-Addendum Brief Verification & Attestation Participated in pt care: history, MDM, physical Personally performed: exam, history, MDM, supervision of care Care discussed with: Medical Student Procedures: n/a Results interpretation: Verified all documentation Verification and Attestation of Medical Student E/M Service A medical student performed and documented this service in my presence. I reviewed and verified all information documented by the medical student and made modifications to such information, when appropriate. I personally performed the physical exam and medical decision making. Keira Tucker, Oct 08, 2019,21:38 SHAHZAD CHENEY,MED STUDENT Oct 08, 2019 11:30 KEIRA CHILDERS DO Oct 08, 2019 21:38 POS
[2019-10-08 12:00] VITALS: BP 117/72
[2019-10-08] MEDS ORDERED: RT-ALBUTEROL/IPRATROPIUM 3 ML (DUONEB) VIAL INH PRN (12:00)
[2019-10-08] MEDS ORDERED: CELE100C PO (13:15)
--- NOTE | 2019-10-08 13:15 | Pulmonary Consultation ---
History of Present Illness History of Present Illness Date Seen by Provider: Oct 08, 2019 Time Seen by Provider: 13:09 Date of Admission History of Present Illness 64yo presented to ED secondary to fever, CP, chills, productive cough and worsening SOB. She was dx with PNA in the ED and admitted with Cefepime and close observation. Troponin while in ED is negative. Denies abdominal pain, constipation, diarrhea, or dysuria. I am consulted for pulmonary management. Allergies and Home Medications Allergies Coded Allergies: Sulfa (Sulfonamide Antibiotics) (Unverified Allergy, Unknown, 06/08/14) Home Medications Albuterol Sulfate 1 Puff Puff, 2 PUFF IH Q4H PRN for SHORTNESS OF BREATH, (Repo rted) 1 PUFF = 90 MCG Atorvastatin Calcium 20 Mg Tablet, 20 MG PO HS, (Reported) Celecoxib 100 Mg Capsule, 100 MG PO BID, (Reported) Cetirizine HCl 10 Mg Tablet, 10 MG PO DAILY, (Reported) Fluoxetine HCl 40 Mg Capsule, 80 MG PO DAILY, (Reported) TAKES 2 (40MG) CAPSULES Fluticasone Propionate 16 Gm [place].susp, 2 SPRAYS NS BID PRN for ALLERGIES, (Reported) Fluticasone/Salmeterol 1 Each Blst.w.dev, 1 PUFF IH BID, (Reported) Gabapentin 300 Mg Capsule, 300 MG PO BID, (Reported) Levothyroxine Sodium 25 Mcg Tablet, 37.5 MCG PO DAILY, (Reported) TAKES 1 & 1/2 (25MCG) TABLET Montelukast Sodium 10 Mg Tablet, 10 MG PO HS, (Reported) LAST RECEIVED #90 8-- FROM REPOSITORY Multivitamin 1 Each Tablet, 1 TAB PO DAILY, (Reported) Omeprazole 40 Mg Capsule.dr, 40 MG PO BID, (Reported) Quetiapine Fumarate 100 Mg Tablet, 150 MG PO HS, (Reported) TAKES 1 & 1/2 (100MG) TABLETS Tiotropium [place] 1 Inh Aerp, 1 CAP IH HS, (Reported) Past Kmackbu-Onwnop-Afsguv Hx Past Med/Social Hx: Reviewed Nursing Past Med/Soc Hx Patient Social History Alcohol Use: Denies Use Recreational Drug Use: No Smoking Status: Never a Smoker 2nd Hand Smoke Exposure: No Recent Foreign Travel: No Contact w/Someone Who Travel: No Recent Infectious Disease Expo: No Recent Hopitalizations: No Physical Abuse: No Sexual Abuse: No Mistreated: No Fear: No Immunizations Up To Date Tetanus Booster (TDap): Unknown Date of Pneumonia Vaccine: Jul 23, 2013 Date of Influenza Vaccine: Aug 06, 2016 Seasonal Allergies Seasonal Allergies: Yes Past Medical History Surgeries: Yes (HIATAL HERNIA REPAIR, CARPAL TUNNEL) Abdominal, Appendectomy, Gallbladder, Hysterectomy, Orthopedic Respiratory: Yes Asthma, COPD Currently Using CPAP: No Currently Using BIPAP: No Cardiac: No Neurological: No 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, 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 Genitourinary: No Gastrointestinal: Yes Gastroesophageal Reflux Musculoskeletal: Yes Arthritis Endocrine: No HEENT: No Loss of Vision: Bilateral Hearing Impairment: Denies Cancer: No Psychosocial: Yes Depression Integumentary: No Blood Disorders: No Adverse Reaction/Blood Tranf: No Family Medical History Reviewed Nursing Family Hx No Pertinent Family Hx Review of Systems Time Seen by Provider: 13:17 Constitutional: Fever, Chills, Sweats, Weakness, Malaise, Other Eyes: No: Pain, Vision change, Conjunctivae inflammation, Eyelid inflammation, Other, Redness ENT: Nose congestion; No: Ear pain, Ear discharge, Nose pain, Nose discharge, Mouth pain, Mouth swelling, Throat pain, Throat swelling, Other Respiratory: Cough, Dry, Shortness of breath Cardiovascular: Paroxysmal Noc. Dyspnea, Lt Headedness Gastrointestinal: No: Nausea, Vomiting, Abdominal Pain, Diarrhea, Constipation, Melena, Hematochezia, Other Sepsis Event Evaluation Height, Weight, BMI Height: 5'2.00" Weight: 177lbs. 0oz. 80.715982pf; 35.24 BMI Method:Stated Exam Exam Vital Signs Date Time Temp Pulse Resp B/P (MAP) Pulse Ox O2 Delivery O2 Flow Rate FiO2 10/08/19 12:00 36.0 101 18 117/72 (87) 94 Room Air 10/08/19 10:22 Room Air 10/08/19 10:21 37.6 102 20 111/62 92 Room Air 10/08/19 09:55 39.2 124 94 21 10/08/19 07:15 39.2 124 24 116/75 (89) 94 Room Air Height & Weight Height: 5'2.00" Weight: 177lbs. 0oz. 80.080349vt; 35.24 BMI Method:Stated General Appearance: WD/WN, Anxious, Chronically ill, Mild Distress, Obese HEENT: PERRL/EOMI, Pharynx Normal Neck: Full Range of Motion, Supple Respiratory: Chest Non Tender, No Accessory Muscle Use, No Respiratory Distress, Crackles, Decreased Breath Sounds Cardiovascular: Regular Rate, Rhythm, No Edema, No Murmur, Normal Peripheral Pulses, Tachycardia Capillary Refill: Less Than 3 Seconds Gastrointestinal: normal bowel sounds, non tender, soft, no organomegaly Extremity: Non Tender, No Pedal Edema Neurologic/Psychiatric: Alert, No Motor/Sensory Deficits, Normal Mood/Affect Skin: Normal Color, Warm/Dry Lymphatic: No Adenopathy Results Lab Laboratory Tests 10/08/19 07:21 Assessment/Plan Assessment/Plan PNA with sepsis -Continue Cefepime -Monitor closely -Duoneb -August cultures -IVF Metabolic lactic acidosis -IVF Anemia -Montior COPDAE -02 -SVNS LALITHA SQUIRES DO Oct 08, 2019 13:15 POS
--- NOTE | 2019-10-08 13:23 | NUR ---
SPOKE WITH THE PATIENT ABOUT HER MEDICATIONS. SHE STATES THE ONLY THING THAT HAS CHANGED SINCE HER LAST VISIT WAS THEY RECENTLY STOPPED DICLOFENAC AND PRESCRIBED CELEBREX. [facility] FILLED: 10-05-19 CELEBREX 100MG BID 09-21-19 GABAPENTIN 300MG TID #90 (STATES SHE ONLY TAKES IT BID) 09-14-19 SEROQUEL 100MG 1.5 TABS HS #135 08-31-19 IBU 800MG TID #90 (NO LONGER TAKING 08-04-19 LIPITOR 20MG HS #90 07-10-19 FLEXERIL 10MG Q8H #15 (NO LONGER TAKING) [facility] REPOSITORY DISPENSED: 10-05-19 FLUOXETINE 40MG 2 DAILY 10-05-19 OMEPRAZOLE 40MG BID 09-14-19 PROAIR INHALER 08-04-19 LEVOTHYROXINE 25MCG 1.5 TABS DAILY #90 08-04-19 LIPITOR 20MG 06-08-19 SINGULAIR 10MG HS #90 (NOTED PAST DUE FILL DATE ON MED REC) ADVAIR 250-50 AND SPIRIVA ARE DISPENSED THROUGH [facility]. OTC MEDS: MTV DAILY ZYRTEC DAILY PATIENT ALSO STATES SHE USES FLONASE NASAL SPRAY NEEDED THAT SHE RECEIVES FROM THE CLINIC HOWEVER THEY DID NOT STATE WHEN IT WAS LAST GIVEN.
[2019-10-08 16:00] VITALS: BP 104/60
[2019-10-08] MEDS ORDERED: ACETAMINOPHEN 325 MG TABLET PO PRN (16:00)
[2019-10-08] MEDS: NS IV 1000 ML 1,000 ML IV SCH ×2 (17:27→19:21)
[2019-10-08] MEDS: RT-ALBUTEROL/IPRATROPIUM 3 ML (DUONEB) VIAL INH SCH ×3 (18:55→21:54)
[2019-10-08 19:17] VITALS: BP 150/67
[2019-10-08] MEDS: ENOXAPARIN 40 MG/0.4 ML (LOVENOX) SYR SC SCH (19:21)
[2019-10-08] MEDS: CEFEPIME 2,000 MG/SWFI 20 ML IV PUSH IV SCH ×2 (20:00)
[2019-10-08] MEDS ORDERED: CALCIUM CARBONATE 500 MG (TUMS) TAB.CHEW PO PRN (21:45)
[2019-10-08] MEDS ORDERED: fentaNYL INJECTION 100 MCG/2 ML AMP IVP PRN (21:45)
[2019-10-08] MEDS ORDERED: diphenhydrAMINE 25 MG TAB (BENADRYL) PO PRN (21:45)
[2019-10-08] MEDS ORDERED: LOPERAMIDE 2 MG (IMODIUM) TABLET PO PRN (21:45)
[2019-10-08] MEDS ORDERED: MELATONIN 3 MG TABLET PO PRN (21:45)
[2019-10-08] MEDS ORDERED: ALPRAZolam 0.25 MG (XANAX) TAB PO PRN (21:45)
[2019-10-08] MEDS ORDERED: DOCUSATE SODIUM 100 MG (COLACE) CAP PO PRN (21:45)
[2019-10-08] MEDS ORDERED: FLUTICASONE NASAL SPRAY (FLONASE) 16 GM BTL NS PRN (21:45)
[2019-10-08] MEDS ORDERED: GABAPENTIN 300 MG (NEURONTIN) CAP ONE (21:58)
[2019-10-08] MEDS ORDERED: SENNA W/DOCUSATE (SENOKOT S) TABLET ONE (21:58)
[2019-10-08] MEDS ORDERED: PANTOPRAZOLE 40 MG (PROTONIX) TAB PO ONE (21:58)
[2019-10-08] MEDS ORDERED: MONTELUKAST 10 MG (SINGULAIR) TAB ONE (21:59)
[2019-10-08] MEDS ORDERED: QUEtiapine 100 MG (SEROquel) TAB IMMEDIATE RELEASE ONE (22:00)
[2019-10-08] MEDS ORDERED: CELECOXIB 100 MG (CeleBREX) CAP PO ONE (22:00)
[2019-10-08] MEDS: CELECOXIB 100 MG (CeleBREX) CAP PO SCH (22:04)
[2019-10-08] MEDS: GABAPENTIN 300 MG (NEURONTIN) CAP PO SCH (22:04)
[2019-10-08] MEDS: QUEtiapine 100 MG (SEROquel) TAB IMMEDIATE RELEASE PO SCH (22:05)
[2019-10-08] MEDS: PANTOPRAZOLE 40 MG (PROTONIX) TAB PO SCH (22:05)
[2019-10-08] MEDS: MONTELUKAST 10 MG (SINGULAIR) TAB PO SCH (22:06)
[2019-10-09] VITALS (7 sets, daily range): BP systolic 102–131; BP diastolic 55–78
[2019-10-09] MEDS: NS IV 1000 ML 1,000 ML IV SCH (01:50)
[2019-10-09] MEDS: RT-ALBUTEROL/IPRATROPIUM 3 ML (DUONEB) VIAL INH SCH ×6 (02:04→21:35)
[2019-10-09 05:41] LABS: BASOPHILS % (AUTO) 0 % (0-10); EOSINOPHILS # (AUTO) 0.2 10^3/uL (0.0-0.3); EOSINOPHILS % (AUTO) 2 % (0-10); HEMATOCRIT 32 % (35-52); HEMOGLOBIN 10.4 G/DL (11.5-16.0); LYMPHOCYTES # (AUTO) 1.7 X 10^3 (1.0-4.0); LYMPHOCYTES % (AUTO) 18 % (12-44); MEAN CORPUSCULAR HEMOGLOBIN 29 PG (25-34); MEAN CORPUSCULAR HGB CONC 32 G/DL (32-36); MEAN CORPUSCULAR VOLUME 90 FL (80-99); MEAN PLATELET VOLUME 10.2 FL (7.4-10.4); MONOCYTES # (AUTO) 0.6 X 10^3 (0.0-1.0); MONOCYTES % (AUTO) 6 % (0-12); NEUTROPHILS # (AUTO) 7.2 X 10^3 (1.8-7.8); NEUTROPHILS % (AUTO) 74 % (42-75); PLATELET COUNT 191 10^3/uL (130-400); RED CELL DISTRIBUTION WIDTH 15.1 % (10.0-14.5); WHITE BLOOD COUNT 9.7 10^3/uL (4.3-11.0)
--- NOTE | 2019-10-09 06:04 | Pulmonary Progress Note ---
Subjective Time Seen by a Provider: 06:04 Subjective/Events-last exam Pt appears to be doing better Sepsis Event Evaluation Height, Weight, BMI Height: 5'2.00" Weight: 177lbs. 0oz. 80.912230tf; 35.24 BMI Method:Stated Focused Exam Lactate Level 10/08/19 07:21: Lactic Acid Level 2.80*H 10/08/19 09:40: Lactic Acid Level 2.00 Exam Exam Vital Signs Date Time Temp Pulse Resp B/P (MAP) Pulse Ox O2 Delivery O2 Flow Rate FiO2 10/09/19 02:05 95 Room Air 10/09/19 00:15 37.1 89 20 103/64 (77) 93 Room Air 10/08/19 21:54 95 Room Air 10/08/19 19:55 95 Room Air 10/08/19 19:17 36.6 89 18 150/67 (94) 95 Room Air 10/08/19 18:57 95 Room Air 10/08/19 16:00 37.0 85 18 104/60 (75) 95 Room Air 10/08/19 15:56 92 Room Air 10/08/19 15:50 92 Room Air 10/08/19 12:00 36.0 101 18 117/72 (87) 94 Room Air 10/08/19 10:22 Room Air 10/08/19 10:21 37.6 102 20 111/62 92 Room Air 10/08/19 09:55 39.2 124 94 21 10/08/19 09:30 102 22 127/76 93 Room Air 10/08/19 07:15 39.2 124 24 116/75 (89) 94 Room Air I & O 10/09/19 07:00 Intake Total 4190 ml Output Total 3950 ml Balance 240 ml Height & Weight Height: 5'2.00" Weight: 177lbs. 0oz. 80.089379vj; 35.24 BMI Method:Stated General Appearance: No Apparent Distress, Anxious, Chronically ill HEENT: PERRL/EOMI, Normal ENT Inspection, Pharynx Normal, Moist Mucous Membranes Neck: Full Range of Motion, Normal Inspection, Non Tender Respiratory: Chest Non Tender, No Accessory Muscle Use, No Respiratory Distress, Crackles, Decreased Breath Sounds, Wheezing Cardiovascular: Regular Rate, Rhythm, No Edema, No Gallop, No JVD, No Murmur, Normal Peripheral Pulses Capillary Refill: Less Than 3 Seconds Extremity: Normal Capillary Refill, Normal Inspection, Normal Range of Motion, Non Tender, No Calf Tenderness, No Pedal Edema Neurologic/Psychiatric: Alert, Oriented x3, No Motor/Sensory Deficits, Normal Mood/Affect Skin: Normal Color, Warm/Dry Lymphatic: No Adenopathy Results Lab Laboratory Tests 10/08/19 07:21 10/09/19 05:00 Assessment/Plan Assessment/Plan PNA with sepsis -Continue Cefepime -Monitor closely -Duoneb -August cultures -IVF -- SL IVF Metabolic lactic acidosis- resolved Anemia -Montior COPDAE -02 -SVNS LALITHA SQUIRES DO Oct 09, 2019 06:04 POS
[2019-10-09 06:11] LABS: ALANINE AMINOTRANSFERASE 26 U/L (0-55); ALBUMIN 2.9 GM/DL (3.2-4.5); ALKALINE PHOSPHATASE 59 U/L (40-136); BILIRUBIN,TOTAL 0.6 MG/DL (0.1-1.0); BUN/CREATININE RATIO 15; CALCIUM 8.4 MG/DL (8.5-10.1); CARBON DIOXIDE 21 MMOL/L (21-32); CHLORIDE 112 MMOL/L (98-107); CREATININE SERUM 0.79 MG/DL (0.60-1.30); GFR ESTIMATED > 60; GLUCOSE 102 MG/DL (70-105); POTASSIUM 3.8 MMOL/L (3.6-5.0); SODIUM 141 MMOL/L (135-145); TOTAL PROTEIN 4.9 GM/DL (6.4-8.2)
[2019-10-09] MEDS: RT-ADVAIR HFA 115/21 MCG PER PUFF IH SCH ×2 (08:15→19:35)
[2019-10-09] MEDS: CEFEPIME 2,000 MG/SWFI 20 ML IV PUSH IV SCH ×4 (08:30→20:45)
[2019-10-09] MEDS: SENNA W/DOCUSATE (SENOKOT S) TABLET PO SCH ×2 (08:30→20:47)
[2019-10-09] MEDS: PANTOPRAZOLE 40 MG (PROTONIX) TAB PO SCH ×2 (08:30→20:48)
[2019-10-09] MEDS: GABAPENTIN 300 MG (NEURONTIN) CAP PO SCH ×2 (08:30→20:47)
[2019-10-09] MEDS: MULTIVIT W/MINERALS TAB (THERAGRAN M) PO SCH (08:30)
[2019-10-09] MEDS: LORATADINE (CLARITIN) 10 MG TAB PO SCH (08:31)
[2019-10-09] MEDS: LEVOTHYROXINE 25 MCG (LEVOTHROID) TAB PO SCH (08:31)
[2019-10-09] MEDS: FLUoxetine HCL 20 MG (PROzac) CAP PO SCH (08:31)
[2019-10-09] MEDS: CELECOXIB 100 MG (CeleBREX) CAP PO SCH ×2 (08:31→20:49)
[2019-10-09] MEDS ORDERED: NON-FORMULARY MEDICATION 1 EA EA (Cetirizine HCl (Zyrtec) 10 MG) PO SCH (09:00)
[2019-10-09] MEDS ORDERED: NON-FORMULARY MEDICATION 1 EA EA (Fluticasone/Salmeterol (Advair 250-50 Diskus) 1 PUFF) IH SCH (09:00)
[2019-10-09] MEDS ORDERED: NON-FORMULARY MEDICATION 1 EA EA (Omeprazole 40 MG) PO SCH (09:00)
[2019-10-09] MEDS ORDERED: FLUOXETINE HCL 80 MG PO SCH (09:00)
--- NOTE | 2019-10-09 13:01 | Progress Note - Hospitalist ---
SHAHZAD CHENEY,MED STUDENT 10/09/19 1301: Subjective HPI/CC On Admission Date Seen by Provider: Oct 09, 2019 Time Seen by Provider: 11:48 Chief complaint: Fever with cough HPI: This is a 64yoWF clinic Pt of [facility] who presents to the ER with cough and fever for the past several days, found to have a pneumonia with elevated lactic acid of 2.9 and hypoxia. She was given aggressive IV fluids and IV antibiotics and nebulizer treatments, Dr. García will be consulted and Pt was placed inpatient status for IV antibiotics and resolution of sepsis. Subjective/Events-last exam Continues to have dry cough but overall feeling better, breathing is improved Complains of sore throat from coughing WBC count down to 9.[address] García following Focused Exam Lactate Level 10/08/19 07:21: Lactic Acid Level 2.80*H 10/08/19 09:40: Lactic Acid Level 2.00 Objective Exam Vital Signs Vital Signs Date Time Temp Pulse Resp B/P (MAP) Pulse Ox O2 Delivery O2 Flow Rate FiO2 10/09/19 12:00 37.7 90 18 127/73 (91) 96 Room Air 10/08/19 09:55 21 Capillary Refill : Less Than 3 Seconds General Appearance: No Apparent Distress, WD/WN HEENT: PERRL/EOMI, Pharynx Normal; No Pharyngeal Erythema Neck: Full Range of Motion, Non Tender, Supple Respiratory: Chest Non Tender, Lungs Clear, Normal Breath Sounds, No Accessory Muscle Use, No Respiratory Distress Cardiovascular: Regular Rate, Rhythm, No Edema, No Murmur Gastrointestinal: Non Tender, Soft; No Distended Extremity: Non Tender, No Pedal Edema Neurologic/Psychiatric: Alert, No Motor/Sensory Deficits, Normal Mood/Affect Skin: Normal Color, Warm/Dry Lymphatic: No Adenopathy Results/Procedures Lab Laboratory Tests 10/09/19 05:00 10/09/19 05:20 Patient resulted labs reviewed. Assessment/Plan Assessment and Plan Assess & Plan/Chief Complaint Assessment: Pneumonia Fever resolved COPD Plan: Cefepime IV fluids Will order chloraseptic spray for sore throat Dr. García following Albuterol treatments PRN Clinical Quality Measures DVT/VTE Risk/Contraindication: Risk Factor Score Per Nursin RFS Level Per Nursing on Admit: 3=High KEIRA TUCKER DO 10/10/19 0949: Subjective Subjective/Events-last exam Bowels are moving. Heplock IV fluid. Chloraseptic spray will be given for sore throat. Tolerating antibiotics. Nebulizer treatments maintained. Getting up to go to the bathroom pretty well. Review of Systems General: Fatigue Pulmonary: Dyspnea Objective Exam General Appearance: No Apparent Distress, WD/WN Respiratory: Lungs Clear, Normal Breath Sounds Cardiovascular: Regular Rate, Rhythm Neurologic/Psychiatric: Alert, Oriented x3, No Motor/Sensory Deficits, Normal Mood/Affect Assessment/Plan Assessment and Plan Assess & Plan/Chief Complaint Assessment: PNA Sepsis Fever Leukocytosis COPD Plan: ABx IVFHL Home meds O2 Supervisory-Addendum Brief Verification & Attestation Participated in pt care: history, MDM, physical Personally performed: exam, history, MDM, supervision of care Care discussed with: Medical Student Procedures: n/a Results interpretation: Verified all documentation Verification and Attestation of Medical Student E/M Service A medical student performed and documented this service in my presence. I reviewed and verified all information documented by the medical student and made modifications to such information, when appropriate. I personally performed the physical exam and medical decision making. Keira Tucker, Oct 10, 2019,09:48 SHAHZAD CHENEY,MED STUDENT Oct 09, 2019 13:01 KEIRA CHILDERS DO Oct 10, 2019 09:49 POS
--- NOTE | 2019-10-09 16:10 | NUR ---
Pastoral care visit.
[2019-10-09] MEDS: ENOXAPARIN 40 MG/0.4 ML (LOVENOX) SYR SC SCH (18:09)
[2019-10-09] MEDS: UMECLIDINIUM BROMIDE (INCRUSE ELLIPTA) 7'S IH SCH (19:35)
[2019-10-09] MEDS: MONTELUKAST 10 MG (SINGULAIR) TAB PO SCH (20:48)
[2019-10-09] MEDS: HYDROcodone/APAP 5 MG/325 MG (LORTAB) TAB PO PRN ×2 (20:49→21:19)
[2019-10-09] MEDS: QUEtiapine 100 MG (SEROquel) TAB IMMEDIATE RELEASE PO SCH (20:53)
[2019-10-09] MEDS ORDERED: TIOTROPIUM BROMIDE (SPIRIVA) 5'S INHALER IH SCH (21:00)
[2019-10-09] MEDS ORDERED: QUETIAPINE FUMARATE 150 MG PO SCH (21:00)
[2019-10-10] MEDS: RT-ALBUTEROL/IPRATROPIUM 3 ML (DUONEB) VIAL INH SCH ×4 (02:00→22:54)
[2019-10-10 03:35] VITALS: BP 96/60
[2019-10-10 08:00] VITALS: BP 95/47
[2019-10-10] MEDS: SENNA W/DOCUSATE (SENOKOT S) TABLET PO SCH ×2 (08:09→21:17)
[2019-10-10] MEDS: GABAPENTIN 300 MG (NEURONTIN) CAP PO SCH ×2 (08:09→21:16)
[2019-10-10] MEDS: CEFEPIME 2,000 MG/SWFI 20 ML IV PUSH IV SCH ×4 (08:09→21:16)
[2019-10-10] MEDS: LORATADINE (CLARITIN) 10 MG TAB PO SCH (08:09)
[2019-10-10] MEDS: MULTIVIT W/MINERALS TAB (THERAGRAN M) PO SCH (08:09)
[2019-10-10] MEDS: FLUoxetine HCL 20 MG (PROzac) CAP PO SCH (08:09)
[2019-10-10] MEDS: CELECOXIB 100 MG (CeleBREX) CAP PO SCH ×2 (08:09→21:16)
[2019-10-10] MEDS: LEVOTHYROXINE 25 MCG (LEVOTHROID) TAB PO SCH (08:09)
[2019-10-10] MEDS: PANTOPRAZOLE 40 MG (PROTONIX) TAB PO SCH ×2 (08:09→21:14)
[2019-10-10] MEDS: RT-ADVAIR HFA 115/21 MCG PER PUFF IH SCH ×2 (10:36→19:51)
[2019-10-10 12:02] VITALS: BP 120/70
--- NOTE | 2019-10-10 12:04 | Progress Note - Hospitalist ---
Subjective HPI/CC On Admission Date Seen by Provider: Oct 10, 2019 Time Seen by Provider: 10:30 Chief complaint: Fever with cough HPI: This is a 64[facility]WF clinic Pt of [facility] who presents to the ER with cough and fever for the past several days, found to have a pneumonia with elevated lactic acid of 2.9 and hypoxia. She was given aggressive IV fluids and IV antibiotics and nebulizer treatments, Dr. García will be consulted and Pt was placed inpatient status for IV antibiotics and resolution of sepsis. Subjective/Events-last exam Patient feels pretty good Wants some Chloraseptic for sore throat Her nasal passageways are dry so will initiate saline nasal spray Appreciate Dr. García consultation Patient coughing quite a bit today Denies any pain Review of Systems General: Fatigue Pulmonary: Dyspnea, Cough Focused Exam Lactate Level Objective Exam Vital Signs Vital Signs Date Time Temp Pulse Resp B/P (MAP) Pulse Ox O2 Delivery O2 Flow Rate FiO2 10/11/19 13:37 96 Room Air 10/11/19 08:00 37.1 83 20 123/74 (90) 10/08/19 09:55 21 Capillary Refill : Less Than 3 SecondsLess Than 3 Seconds General Appearance: No Apparent Distress, WD/WN Respiratory: Chest Non Tender, Lungs Clear, Normal Breath Sounds, No Accessory Muscle Use, No Respiratory Distress Cardiovascular: Regular Rate, Rhythm, No Edema, No Gallop, No JVD, No Murmur, Normal Peripheral Pulses Neurologic/Psychiatric: Alert, Oriented x3, No Motor/Sensory Deficits, Normal Mood/Affect Results/Procedures Lab Patient resulted labs reviewed. Assessment/Plan Assessment and Plan Assess & Plan/Chief Complaint Assessment: PNA Sepsis Fever Leukocytosis COPD Plan: ABx IVFHL Home meds O2 Diagnosis/Problems Diagnosis/Problems (1) Sepsis (2) Pneumonia involving left lung Status: Acute Qualifiers: Pneumonia type: due to unspecified organism Lung location: lower lobe of lung Qualified Codes: J18.1 - Lobar pneumonia, unspecified organism (3) COPD exacerbation Status: Acute (4) Chronic cough Status: Acute Clinical Quality Measures DVT/VTE Risk/Contraindication: Risk Factor Score Per Nursin RFS Level Per Nursing on Admit: 3=High FRANCK TUCKER DO Oct 10, 2019 12:04 POS
--- NOTE | 2019-10-10 14:31 | Pulmonary Progress Note ---
Subjective Time Seen by a Provider: 13:35 Sepsis Event Evaluation Height, Weight, BMI Height: 5'2.00" Weight: 177lbs. 0oz. 80.147432lt; 35.24 BMI Method:Stated Focused Exam Lactate Level 10/08/19 07:21: Lactic Acid Level 2.80*H 10/08/19 09:40: Lactic Acid Level 2.00 Exam Exam Vital Signs Date Time Temp Pulse Resp B/P (MAP) Pulse Ox O2 Delivery O2 Flow Rate FiO2 10/10/19 12:02 36.6 104 20 120/70 (87) Room Air 10/10/19 10:36 94 Room Air 10/10/19 08:00 Room Air 10/10/19 08:00 36.8 86 20 95/47 (63) 95 Room Air 10/10/19 03:35 36.9 82 20 96/60 (72) 93 Room Air 10/09/19 23:58 37.1 92 21 102/60 (74) 93 Room Air 10/09/19 21:35 96 Room Air 10/09/19 21:19 37.4 10/09/19 20:00 96 Room Air 10/09/19 19:37 37.4 83 18 128/67 (87) 95 Room Air 10/09/19 19:36 96 Room Air 10/09/19 16:00 37.3 76 18 119/55 (76) 96 Room Air 10/09/19 15:22 96 Room Air I & O 10/10/19 07:00 Intake Total 3010 ml Output Total 2500 ml Balance 510 ml Height & Weight Height: 5'2.00" Weight: 177lbs. 0oz. 80.423240yr; 35.24 BMI Method:Stated General Appearance: No Apparent Distress, WD/WN HEENT: PERRL/EOMI, Pharynx Normal; No Pharyngeal Erythema Neck: Full Range of Motion, Non Tender, Supple Respiratory: Lungs Clear, Normal Breath Sounds Cardiovascular: Regular Rate, Rhythm Capillary Refill: Less Than 3 Seconds Gastrointestinal: normal bowel sounds, non tender, soft, no organomegaly Extremity: Non Tender, No Pedal Edema Neurologic/Psychiatric: Alert, Oriented x3, No Motor/Sensory Deficits, Normal Mood/Affect Skin: Normal Color, Warm/Dry Lymphatic: No Adenopathy Results Lab Laboratory Tests 10/09/19 05:00 10/09/19 05:20 Assessment/Plan Assessment/Plan PNA with sepsis -Cefepime -Monitor closely -Duoneb -August cultures Metabolic lactic acidosis- resolved Anemia -Montior COPDAE -02 -SVNS LALITHA SQUIRES DO Oct 10, 2019 14:31
[2019-10-10 16:00] VITALS: BP 117/78
[2019-10-10] MEDS: ENOXAPARIN 40 MG/0.4 ML (LOVENOX) SYR SC SCH (17:29)
[2019-10-10] MEDS ORDERED: SALINE NASAL SPRAY (OCEAN) 45 ML BTL PRN (17:30)
[2019-10-10] MEDS ORDERED: CHLORASEPTIC SPRAY 177 ML LIQUID MC PRN (17:30)
[2019-10-10] MEDS ORDERED: SALINE NASAL SPRAY (OCEAN) 45 ML BTL ONE (17:32)
[2019-10-10] MEDS ORDERED: CHLORASEPTIC SPRAY 177 ML LIQUID MC ONE (17:33)
[2019-10-10] MEDS: ACETAMINOPHEN 500 MG TAB (TYLENOL) PO PRN (17:45)
[2019-10-10 19:40] VITALS: BP 118/69
[2019-10-10] MEDS: MONTELUKAST 10 MG (SINGULAIR) TAB PO SCH (21:14)
[2019-10-10] MEDS: QUEtiapine 100 MG (SEROquel) TAB IMMEDIATE RELEASE PO SCH (21:16)
[2019-10-10 23:39] VITALS: BP 108/67
[2019-10-11] MEDS: RT-ALBUTEROL/IPRATROPIUM 3 ML (DUONEB) VIAL INH SCH ×4 (03:39→19:08)
[2019-10-11 08:00] VITALS: BP 123/74
[2019-10-11] MEDS: CEFEPIME 2,000 MG/SWFI 20 ML IV PUSH IV SCH ×4 (08:14→21:12)
[2019-10-11] MEDS: LORATADINE (CLARITIN) 10 MG TAB PO SCH (08:14)
[2019-10-11] MEDS: MULTIVIT W/MINERALS TAB (THERAGRAN M) PO SCH (08:14)
[2019-10-11] MEDS: CELECOXIB 100 MG (CeleBREX) CAP PO SCH ×2 (08:14→21:11)
[2019-10-11] MEDS: PANTOPRAZOLE 40 MG (PROTONIX) TAB PO SCH ×2 (08:14→21:11)
[2019-10-11] MEDS: GABAPENTIN 300 MG (NEURONTIN) CAP PO SCH ×2 (08:14→21:11)
[2019-10-11] MEDS: FLUoxetine HCL 20 MG (PROzac) CAP PO SCH (08:14)
[2019-10-11] MEDS: SENNA W/DOCUSATE (SENOKOT S) TABLET PO SCH ×2 (08:14→21:12)
[2019-10-11] MEDS: LEVOTHYROXINE 25 MCG (LEVOTHROID) TAB PO SCH (08:15)
[2019-10-11] MEDS: RT-ADVAIR HFA 115/21 MCG PER PUFF IH SCH ×2 (09:36→19:13)
[2019-10-11] MEDS: UMECLIDINIUM BROMIDE (INCRUSE ELLIPTA) 7'S IH SCH ×2 (10:21→19:15)
--- NOTE | 2019-10-11 12:11 | Progress Note - Hospitalist ---
Subjective HPI/CC On Admission Date Seen by Provider: Oct 11, 2019 Time Seen by Provider: 10:30 Chief complaint: Fever with cough HPI: This is a 64yoWF clinic Pt of [facility] who presents to the ER with cough and fever for the past several days, found to have a pneumonia with elevated lactic acid of 2.9 and hypoxia. She was given aggressive IV fluids and IV antibiotics and nebulizer treatments, Dr. García will be consulted and Pt was placed inpatient status for IV antibiotics and resolution of sepsis. Subjective/Events-last exam Robitussin-DM will be started for the cough Needs a neb machine at home Does not feel comfortable leaving today Will need close monitoring in order for patient to avoid readmission Walking around pretty well Review of Systems General: Fatigue Pulmonary: Dyspnea Objective Exam Vital Signs Vital Signs Date Time Temp Pulse Resp B/P (MAP) Pulse Ox O2 Delivery O2 Flow Rate FiO2 10/11/19 13:37 96 Room Air 10/11/19 08:00 37.1 83 20 123/74 (90) 10/08/19 09:55 21 Capillary Refill : Less Than 3 SecondsLess Than 3 Seconds General Appearance: No Apparent Distress, WD/WN Respiratory: Chest Non Tender, Lungs Clear, Normal Breath Sounds, No Accessory Muscle Use, No Respiratory Distress Cardiovascular: Regular Rate, Rhythm, No Edema, No Gallop, No JVD, No Murmur, Normal Peripheral Pulses Neurologic/Psychiatric: Alert, Oriented x3, No Motor/Sensory Deficits, Normal Mood/Affect Results/Procedures Lab Patient resulted labs reviewed. Assessment/Plan Assessment and Plan Assess & Plan/Chief Complaint Assessment: PNA Sepsis Fever Leukocytosis COPD Plan: ABx IVFHL Home meds O2 Diagnosis/Problems Diagnosis/Problems (1) Sepsis (2) Pneumonia involving left lung Status: Acute Qualifiers: Pneumonia type: due to unspecified organism Lung location: lower lobe of lung Qualified Codes: J18.1 - Lobar pneumonia, unspecified organism (3) COPD exacerbation Status: Acute (4) Chronic cough Status: Acute Clinical Quality Measures DVT/VTE Risk/Contraindication: Risk Factor Score Per Nursin RFS Level Per Nursing on Admit: 3=High FRANCK TUCKER DO Oct 11, 2019 12:10 POS
[2019-10-11 15:26] VITALS: BP 120/73
[2019-10-11] MEDS: guaiFENesin/DM (ROBITUSSIN DM) 10 ML UDC PO PRN (17:00)
[2019-10-11] MEDS: ENOXAPARIN 40 MG/0.4 ML (LOVENOX) SYR SC SCH (17:01)
[2019-10-11 19:17] VITALS: BP 123/75
[2019-10-11] MEDS: QUEtiapine 100 MG (SEROquel) TAB IMMEDIATE RELEASE PO SCH (21:10)
[2019-10-11] MEDS: MONTELUKAST 10 MG (SINGULAIR) TAB PO SCH (21:11)
[2019-10-11] MEDS: HYDROcodone/APAP 5 MG/325 MG (LORTAB) TAB PO PRN (21:55)
[2019-10-11 23:41] VITALS: BP 122/76
[2019-10-12] MEDS: guaiFENesin/DM (ROBITUSSIN DM) 10 ML UDC PO PRN ×2 (00:32→12:12)
[2019-10-12] MEDS: RT-ALBUTEROL/IPRATROPIUM 3 ML (DUONEB) VIAL INH SCH ×4 (00:33→11:47)
[2019-10-12 05:53] LABS: BASOPHILS % (AUTO) 1 % (0-10); EOSINOPHILS # (AUTO) 0.3 10^3/uL (0.0-0.3); EOSINOPHILS % (AUTO) 5 % (0-10); HEMATOCRIT 36 % (35-52); HEMOGLOBIN 11.8 G/DL (11.5-16.0); LYMPHOCYTES # (AUTO) 1.7 X 10^3 (1.0-4.0); LYMPHOCYTES % (AUTO) 28 % (12-44); MEAN CORPUSCULAR HEMOGLOBIN 29 PG (25-34); MEAN CORPUSCULAR HGB CONC 33 G/DL (32-36); MEAN CORPUSCULAR VOLUME 87 FL (80-99); MEAN PLATELET VOLUME 10.1 FL (7.4-10.4); MONOCYTES # (AUTO) 0.5 X 10^3 (0.0-1.0); MONOCYTES % (AUTO) 9 % (0-12); NEUTROPHILS # (AUTO) 3.4 X 10^3 (1.8-7.8); NEUTROPHILS % (AUTO) 57 % (42-75); PLATELET COUNT 257 10^3/uL (130-400); RED CELL DISTRIBUTION WIDTH 15.3 % (10.0-14.5); WHITE BLOOD COUNT 5.9 10^3/uL (4.3-11.0)
[2019-10-12 06:17] LABS: ALBUMIN 3.5 GM/DL (3.2-4.5); BILIRUBIN,TOTAL 0.4 MG/DL (0.1-1.0); CALCIUM 8.9 MG/DL (8.5-10.1); CREATININE SERUM 0.95 MG/DL (0.60-1.30); POTASSIUM 3.8 MMOL/L (3.6-5.0); TOTAL PROTEIN 5.9 GM/DL (6.4-8.2)
[2019-10-12] MEDS: RT-ADVAIR HFA 115/21 MCG PER PUFF IH SCH (06:50)
[2019-10-12 07:50] VITALS: BP 117/77
[2019-10-12] MEDS: LEVOTHYROXINE 25 MCG (LEVOTHROID) TAB PO SCH (08:21)
[2019-10-12] MEDS: GABAPENTIN 300 MG (NEURONTIN) CAP PO SCH (08:21)
[2019-10-12] MEDS: CELECOXIB 100 MG (CeleBREX) CAP PO SCH (08:21)
[2019-10-12] MEDS: LORATADINE (CLARITIN) 10 MG TAB PO SCH (08:21)
[2019-10-12] MEDS: PANTOPRAZOLE 40 MG (PROTONIX) TAB PO SCH (08:21)
[2019-10-12] MEDS: MULTIVIT W/MINERALS TAB (THERAGRAN M) PO SCH (08:21)
[2019-10-12] MEDS: CEFEPIME 2,000 MG/SWFI 20 ML IV PUSH IV SCH ×2 (08:21)
[2019-10-12] MEDS: SENNA W/DOCUSATE (SENOKOT S) TABLET PO SCH (08:22)
[2019-10-12] MEDS: FLUoxetine HCL 20 MG (PROzac) CAP PO SCH (08:24)
[2019-10-12] MEDS: ACETAMINOPHEN 500 MG TAB (TYLENOL) PO PRN (12:13)
--- NOTE | 2019-10-12 12:38 | Discharge Summary ---
Diagnosis/Chief Complaint Date of Admission Oct 08, 2019 at 09:12 Date of Discharge 10/12/19 Admission Diagnosis Admission Diagnosis See problem list Discharge Diagnosis See below Problems/Diagnosis: (1) Sepsis Assessment & Plan: - Patient was started on IV antibiotics and IVFs, Had elevated LA upon admission that resolved with repeat. Qualifiers: Qualified Codes: A41.9 - Sepsis, unspecified organism (2) CAP (community acquired pneumonia) Qualifiers: Qualified Codes: J18.9 - Pneumonia, unspecified organism (3) COPD exacerbation Assessment & Plan: - Likely 2/2 to PNA, MAT protocol, patient was sent script for nebulizer upon d/c for duoneb Status: Acute Discharge Summary-Simple/Stand Consultations Dr García: Pulmonary and Critical Care Discharge Physical Examination Allergies: Coded Allergies: Sulfa (Sulfonamide Antibiotics) (Unverified Allergy, Unknown, 06/08/14) Vitals & I&Os Vital Sign - Last 12Hours Date Time Temp Pulse Resp B/P (MAP) Pulse Ox O2 Delivery O2 Flow Rate FiO2 10/12/19 11:47 92 Room Air 10/12/19 07:50 36.8 96 16 117/77 (90) 10/08/19 09:55 21 Intake and Output 10/12/19 00:00 Intake Total 1620 ml Balance 1620 ml General Appearance: Alert, Oriented X3, Cooperative, No Acute Distress HEENT: Mucous Memb Moist/[place] Respiratory: Clear to Auscultation, Normal Air Movement Cardiovascular: Regular Rate, No Murmurs Abdominal: Normal Bowel Sounds, Soft, No Tenderness, No Masses Extremities: No Edema, No Tenderness/Swelling Skin: No Rashes, No Breakdown Neuro: Normal Speech, Strength at 5/5 X4 Ext, Sensation Intact, Cranial Nerves 3-12 NL Psych/Mental Status: Mental Status NL, Mood NL Hospital Course Was the Problem List Reviewed?: Yes See final discharge diagnosis. Discussion & Recommendations 64 yo F with known COPD that presented with several days of fever and increased shortness of breath. Patient improved with nebulizer treatments and antibiotics. LA resolved with IVFs. She was able to be titrated to RA prior to d/c. Patient was sent home to complete antibiotics PO. Discharge Condition at discharge stable Instructions to patient/family Please see electronic discharge instructions given to patient. Discharge Medications Reviewed and agree with Discharge Medication list on patient's Discharge Instruction sheet Clinical Quality Measures DVT/VTE Risk/Contraindication: Risk Factor Score Per Nursin RFS Level Per Nursing on Admit: 3=High Copy Copies To 1: Asher BANDA HOLLY R MD Oct 12, 2019 12:38 POS
[2019-10-12] MEDS ORDERED: CEFD300C3 PO (12:46)
--- NOTE | 2019-10-12 12:50 | Discharge Instructions ---
Discharge [facility] Reconcile Patient Problems Problems Reviewed?: Yes Discharge Medications New, Converted or Re-Newed RX: Transmitted to Pharmacy New Medications: Cefdinir (Cefdinir) 300 Mg Capsule 300 MG PO BID, #10 CAP Continued Medications: Albuterol Sulfate (Proair Hfa) 1 Puff Puff 2 PUFF IH Q4H PRN for SHORTNESS OF BREATH, INHALER 1 PUFF = 90 MCG Atorvastatin Calcium (Atorvastatin Calcium) 20 Mg Tablet 20 MG PO HS, TAB Celecoxib (Celebrex) 100 Mg Capsule 100 MG PO BID, CAP Cetirizine HCl (Zyrtec) 10 Mg Tablet 10 MG PO DAILY, TAB Fluoxetine HCl (Prozac) 40 Mg Capsule 80 MG PO DAILY, CAP TAKES 2 (40MG) CAPSULES Fluticasone Propionate (Fluticasone Propionate) 16 Gm [place].susp 2 SPRAYS NS BID PRN for ALLERGIES, EA Fluticasone/Salmeterol (Advair 250-50 Diskus) 1 Each Blst.w.dev 1 PUFF IH BID Gabapentin (Gabapentin) 300 Mg Capsule 300 MG PO BID, CAP Levothyroxine Sodium (Levothyroxine Sodium) 25 Mcg Tablet 37.5 MCG PO DAILY, TAB TAKES 1 & 1/2 (25MCG) TABLET Montelukast Sodium (Montelukast Sodium) 10 Mg Tablet 10 MG PO HS, TAB LAST RECEIVED #90 06-08-19 FROM REPOSITORY Multivitamin (Multivitamins) 1 Each Tablet 1 TAB PO DAILY, TAB Omeprazole (Omeprazole) 40 Mg Capsule.dr 40 MG PO BID, CAP Quetiapine Fumarate (Seroquel) 100 Mg Tablet 150 MG PO HS, TAB TAKES 1 & 1/2 (100MG) TABLETS Tiotropium [place] (Spiriva) 1 Inh Aerp 1 CAP IH HS, INHALER Patient Instructions Goal/Follow Up Appt: You will be called with appt with Asher Celestin Patient Instructions: - make sure to complete your antibiotics - Continue to use IS and Aerobike Activity & Diet Discharge Diet: Cardiac Diet Activity as Tolerated: Yes Copy Copies To 1: [facility] MD Oct 12, 2019 12:50 POS
--- NOTE | 2019-10-12 15:05 | NUR ---
CM/SS spoke with the patient to assess for needs upon discharge. Plan: The patient will return home with Nebulizer from [facility] ([phone]). Options for Self Pay were discussed. CM/SS contacted DME and faxed over information. The patient states that she did not have any other needs and her sister was present in room who was going to give her a ride home.
--- OUTSIDE RECORDS SUMMARY | 2019-11-03 06:02 | XMS REPORT | Continuity of Care Document ---
Author Organization Unknown Address Unknown Phone Unavailable Allergies Active Description Code Type Severity Reaction Onset Reported/Identified Relationship to Patient Clinical Status Yes sulfa drug Drug Allergy 03/07/2011 Yes Sulfa (Sulfonamide Antibiotics) [id number] Drug Allergy Unknown N/A 014 Medications There is no data. Problems Date Dx Coded Attending Type Code Diagnosis Diagnosed By 03/07/2011 TARIQ TATE APRN 477.0 ALLERGIC RHINITIS - POLLEN 03/07/2011 TARIQ TATE APRN 493.90 ASTHMA 03/07/2011 TARIQ TATE APRN 530.81 ESOPHAGEAL REFLUX 03/07/2011 477.0 SAYRA RGIC RHINITIS - POLLEN 03/07/2011 493.90 ASTHMA 03/07/2011 530.81 ESO PHAGEAL REFLUX 03/07/2011 477.0 SAYRA RGIC RHINITIS - POLLEN 03/07/2011 493.90 ASTHMA 03/07/2011 530.81 ESO PHAGEAL REFLUX 03/07/2011 477.0 SAYRA RGIC RHINITIS - POLLEN 03/07/2011 493.90 ASTHMA 03/07/2011 530.81 ESO PHAGEAL REFLUX 03/07/2011 477.0 SAYRA RGIC RHINITIS - POLLEN 03/07/2011 493.90 ASTHMA 03/07/2011 530.81 ESO PHAGEAL REFLUX 03/07/2011 477.0 SAYRA RGIC RHINITIS - POLLEN 03/07/2011 493.90 ASTHMA 03/07/2011 530.81 ESO PHAGEAL REFLUX 03/07/2011 477.0 SAYRA RGIC RHINITIS - POLLEN 03/07/2011 493.90 ASTHMA 03/07/2011 530.81 ESO PHAGEAL REFLUX 03/07/2011 477.0 SAYRA RGIC RHINITIS - POLLEN 03/07/2011 493.90 ASTHMA 03/07/2011 530.81 ESO PHAGEAL REFLUX 03/07/2011 477.0 SAYRA RGIC RHINITIS - POLLEN 03/07/2011 493.90 ASTHMA 03/07/2011 530.81 ESO PHAGEAL REFLUX 03/07/2011 SHUKLA DO, DI K 477.0 [...] DI K 530.81 ESOPHAGEAL REFLUX 03/07/2011 TATE DERMATOLOGIST, TARIQ R 477.0 ALLERGIC RHINITIS - POLLEN 03/07/2011 TATE DERMATOLOGIST, TARIQ R 493.90 ASTHMA 03/07/2011 TATE DERMATOLOGIST, TARIQ R 530.81 ESOPHAGEAL REFLUX 03/07/2011 TATE DERMATOLOGIST, TARIQ R 477.0 ALLERGIC RHINITIS - POLLEN 03/07/2011 TATE DERMATOLOGIST, TARIQ R 493.90 ASTHMA 03/07/2011 TATE DERMATOLOGIST, TARIQ R 530.81 ESOPHAGEAL REFLUX 03/07/2011 SHUKLA [...] DI K 530.81 ESOPHAGEAL REFLUX 03/07/2011 HELLWIG DERMATOLOGIST, THEO E 477.0 ALLERGIC RHINITIS - POLLEN 03/07/2011 HELLWIG DERMATOLOGIST, THEO E 493.90 ASTHMA 03/07/2011 HELLWIG DERMATOLOGIST, THEO E 530.81 ESOPHAGEAL REFLUX 03/07/2011 TATE TARIQ WARNER 477.0 ALLERGIC RHINITIS - POLLEN 03/07/2011 TATE DERMATOLOGISTTRAIQ Mena 493.90 ASTHMA 03/07/2011 TATE DERMATOLOGIST, TARIQ Bhardwaj 530.81 ESOPHAGEAL REFLUX 03/07/2011 SHUKLA DO, DI K 477.0 ALLERGIC RHINITIS - POLLEN 03/07/2011 SHUKLA DO, DI K 493.90 ASTHMA 03/07/2011 SHUKLA DO, DI K 530.81 ESOPHAGEAL REFLUX 03/07/2011 SHUKLA DO, DI K 477.0 ALLERGIC RHINITIS - POLLEN 03/07/2011 SHUKLA DO, DI K 493.90 ASTHMA 03/07/2011 SHUKLA DO, DI K 530.81 ESOPHAGEAL REFLUX 03/21/2011 TATETARIQ CHRISTINE APRN 372.30 CONJUNCTIVITIS UNSPECIFIED 03/21/2011 372.30 CON JUNCTIVITIS UNSPECIFIED 03/21/2011 372.30 CON JUNCTIVITIS UNSPECIFIED 03/21/2011 372.30 CON JUNCTIVITIS UNSPECIFIED 03/21/2011 372.30 CON JUNCTIVITIS UNSPECIFIED 03/21/2011 372.30 CON JUNCTIVITIS UNSPECIFIED 03/21/2011 372.30 CON JUNCTIVITIS UNSPECIFIED 03/21/2011 372.30 CON JUNCTIVITIS UNSPECIFIED 03/21/2011 372.30 CON JUNCTIVITIS UNSPECIFIED 03/21/2011 SHUKLA DO, DI K 372.30 CONJUNCTIVITIS UNSPECIFIED 03/21/2011 SHUKLA DO, DI K 372.30 CONJUNCTIVITIS UNSPECIFIED 03/21/2011 SHUKLA DO, DI K 372.30 CONJUNCTIVITIS UNSPECIFIED 03/21/2011 SHUKLA DO, DI K 372.30 CONJUNCTIVITIS UNSPECIFIED 03/21/2011 TATETARIQ CHRISTINE APRN 372.30 CONJUNCTIVITIS UNSPECIFIED 03/21/2011 TATE TARIQ WARNER 372.30 CONJUNCTIVITIS UNSPECIFIED 03/21/2011 SHUKLA DO, DI K 372.30 CONJUNCTIVITIS UNSPECIFIED 03/21/2011 SHUKLA , DI K 372.30 CONJUNCTIVITIS UNSPECIFIED 03/21/2011 SHUKLA DO, DI K 372.30 CONJUNCTIVITIS UNSPECIFIED 03/21/2011 SHUKLA DO, DI K 372.30 CONJUNCTIVITIS UNSPECIFIED 03/21/2011 THEO GRIER APRN 372.30 CONJUNCTIVITIS UNSPECIFIED 03/21/2011 TARIQ TATE APRN 372.30 CONJUNCTIVITIS UNSPECIFIED 03/21/2011 VAZQUEZ LANGLEY DI K 372.30 CONJUNCTIVITIS UNSPECIFIED 03/21/2011 VAZQUEZ LANGLEY, DI K 372.30 CONJUNCTIVITIS UNSPECIFIED 07/11/2011 TARIQ TATE APRN 536.8 DYSPEPSIA AND OTHER SPECIFIED DISORDERS OF FUNCTION OF STOMACH 07/11/2011 TARIQ TATE APRN V76.12 OTHER SCREENING MAMMOGRAM 07/11/2011 TARIQ TATE APRN V77.91 SCREENING FOR LIPOID DISORDERS 07/11/2011 TARIQ TATE APRN V81.2 SCREENING FOR OTHER AND UNSPECIFIED CARDIOVASCULAR CON DITIONS 07/11/2011 536.8 DYSP EPSIA AND OTHER SPECIFIED DISORDERS OF FUNCTION OF STOMACH 07/11/2011 V76.12 OTH ER SCREENING MAMMOGRAM 07/11/2011 V77.91 SCR EENING FOR LIPOID DISORDERS 07/11/2011 V81.2 SCRE ENING FOR OTHER AND UNSPECIFIED CARDIOVASCULAR CONDITIONS 07/11/2011 536.8 DYSP EPSIA AND OTHER SPECIFIED DISORDERS OF FUNCTION OF STOMACH 07/11/2011 V76.12 OTH ER SCREENING MAMMOGRAM 07/11/2011 V77.91 SCR EENING FOR LIPOID DISORDERS 07/11/2011 V81.2 SCRE ENING FOR OTHER AND UNSPECIFIED CARDIOVASCULAR CONDITIONS 07/11/2011 536.8 DYSP EPSIA AND OTHER SPECIFIED DISORDERS OF FUNCTION OF STOMACH 07/11/2011 V76.12 OTH ER SCREENING MAMMOGRAM 07/11/2011 V77.91 SCR EENING FOR LIPOID DISORDERS 07/11/2011 V81.2 SCRE ENING FOR OTHER AND UNSPECIFIED CARDIOVASCULAR CONDITIONS 07/11/2011 536.8 DYSP EPSIA AND OTHER SPECIFIED DISORDERS OF FUNCTION OF STOMACH 07/11/2011 V76.12 OTH ER SCREENING MAMMOGRAM 07/11/2011 V77.91 SCR EENING FOR LIPOID DISORDERS 07/11/2011 V81.2 SCRE ENING FOR OTHER AND UNSPECIFIED CARDIOVASCULAR CONDITIONS 07/11/2011 536.8 DYSP EPSIA AND OTHER SPECIFIED DISORDERS OF FUNCTION OF STOMACH 07/11/2011 V76.12 OTH ER SCREENING MAMMOGRAM 07/11/2011 V77.91 SCR EENING FOR LIPOID DISORDERS 07/11/2011 V81.2 SCRE ENING FOR OTHER AND UNSPECIFIED CARDIOVASCULAR CONDITIONS 07/11/2011 536.8 DYSP EPSIA AND OTHER SPECIFIED DISORDERS OF FUNCTION OF STOMACH 07/11/2011 V76.12 OTH ER SCREENING MAMMOGRAM 07/11/2011 V77.91 SCR EENING FOR LIPOID DISORDERS 07/11/2011 V81.2 SCRE ENING FOR OTHER AND UNSPECIFIED CARDIOVASCULAR CONDITIONS 07/11/2011 536.8 DYSP EPSIA AND OTHER SPECIFIED DISORDERS OF FUNCTION OF STOMACH 07/11/2011 V76.12 OTH ER SCREENING MAMMOGRAM 07/11/2011 V77.91 SCR EENING FOR LIPOID DISORDERS 07/11/2011 V81.2 SCRE ENING FOR OTHER AND UNSPECIFIED CARDIOVASCULAR CONDITIONS 07/11/2011 536.8 DYSP EPSIA AND OTHER SPECIFIED DISORDERS OF FUNCTION OF STOMACH 07/11/2011 V76.12 OTH ER SCREENING MAMMOGRAM 07/11/2011 V77.91 SCR EENING FOR LIPOID DISORDERS 07/11/2011 V81.2 SCRE ENING FOR OTHER AND UNSPECIFIED CARDIOVASCULAR CONDITIONS 07/11/2011 SHUKLA DO DI K 536.8 DYSPEPSIA AND OTHER SPECIFIED DISORDERS OF FUNCTION OF STOMACH 07/11/2011 SHUKLA DO DI K V76.12 OTHER SCREENING MAMMOGRAM 07/11/2011 SHUKLA DO DI K V77.91 SCREENING FOR LIPOID DISORDERS 07/11/2011 SHUKLA DO DI K V81.2 SCREENING FOR OTHER AND UNSPECIFIED CARDIOVASCULAR CONDITIONS 07/11/2011 SHUKLA DO DI K 536.8 DYSPEPSIA AND OTHER SPECIFIED DISORDERS OF FUNCTION OF STOMACH 07/11/2011 SHUKLA DO DI K V76.12 OTHER SCREENING MAMMOGRAM 07/11/2011 SHUKLA DO DI K V77.91 SCREENING FOR LIPOID DISORDERS 07/11/2011 SHUKLA DO DI K V81.2 SCREENING FOR OTHER AND [...] OTHER AND UNSPECIFIED CARDIOVASCULAR CONDITIONS 07/11/2011 TATE DERMATOLOGIST TARIQ R 536.8 DYSPEPSIA AND OTHER SPECIFIED DISORDERS OF FUNCTION OF STOMACH 07/11/2011 TATE DERMATOLOGIST TARIQ R V76.12 OTHER SCREENING MAMMOGRAM 07/11/2011 TATE DERMATOLOGISTTARIQ R V77.91 SCREENING FOR LIPOID DISORDERS 07/11/2011 TATE DERMATOLOGISTTARIQ Mena R V81.2 SCREENING FOR OTHER AND UNSPECIFIED CARDIOVASCULAR CON DITIONS 07/11/2011 TATE DERMATOLOGISTTARIQ Mena R 536.8 DYSPEPSIA AND OTHER SPECIFIED DISORDERS OF FUNCTION OF STOMACH 07/11/2011 TATE DERMATOLOGIST, TARIQ R V76.12 OTHER SCREENING MAMMOGRAM 07/11/2011 TATE DERMATOLOGIST TARIQ R V77.91 SCREENING FOR LIPOID DISORDERS 07/11/2011 TATE DERMATOLOGIST TARIQ R V81.2 SCREENING FOR OTHER AND UNSPECIFIED CARDIOVASCULAR CON DITIONS 07/11/2011 SHUKLA DO DI K 536.8 DYSPEPSIA [...] FOR OTHER AND UNSPECIFIED CARDIOVASCULAR CONDITIONS 07/11/2011 THEO GRIER APRN 536.8 DYSPEPSIA AND OTHER SPECIFIED DISORDERS OF FUNCTION OF STOMACH 07/11/2011 THEO GRIER APRN E V76.12 OTHER SCREENING MAMMOGRAM 07/11/2011 MARVEL DERMATOLOGISTHOLLY MenaSIE E V77.91 SCREENING FOR LIPOID DISORDERS 07/11/2011 THEO GRIER APRN E V81.2 SCREENING FOR OTHER AND UNSPECIFIED CARDIOVASCULAR CON DITIONS 07/11/2011 TARIQ TATE APRN 536.8 DYSPEPSIA AND OTHER SPECIFIED DISORDERS OF FUNCTION OF STOMACH 07/11/2011 TARIQ TATE APRN V76.12 OTHER SCREENING MAMMOGRAM 07/11/2011 TARIQ TATE APRN V77.91 SCREENING FOR LIPOID DISORDERS 07/11/2011 TATE TARIQ WARNER R V81.2 SCREENING FOR OTHER AND UNSPECIFIED CARDIOVASCULAR CON DITIONS 07/11/2011 SHUKLA DO DI K 536.8 DYSPEPSIA AND OTHER SPECIFIED DISORDERS OF FUNCTION OF STOMACH 07/11/2011 SHUKLA DO, DI K V76.12 OTHER SCREENING MAMMOGRAM 07/11/2011 SHUKLA DO, DI K V77.91 SCREENING FOR LIPOID DISORDERS 07/11/2011 SHUKLA DO, DI K V81.2 SCREENING FOR OTHER AND UNSPECIFIED CARDIOVASCULAR CONDITIONS 07/11/2011 SHUKLA DO DI K 536.8 DYSPEPSIA AND OTHER SPECIFIED DISORDERS OF FUNCTION OF STOMACH 07/11/2011 DI SHUKLA DO V76.12 OTHER SCREENING MAMMOGRAM 07/11/2011 DI SHUKLA DO V77.91 SCREENING FOR LIPOID DISORDERS 07/11/2011 DI SHUKLA DO V81.2 SCREENING FOR OTHER AND UNSPECIFIED CARDIOVASCULAR CONDITIONS 07/12/2011 TARIQ TATE APRN 627.3 POSTMENOPAUSAL ATROPHIC VAGINITIS 07/12/2011 TARIQ TATE APRN V72.31 TRACTOR EXPERT EXAM, ROUTINE 07/12/2011 627.3 POST MENOPAUSAL ATROPHIC VAGINITIS 07/12/2011 V72.31 TRACTOR EXPERT EXAM, ROUTINE 07/12/2011 627.3 POST MENOPAUSAL ATROPHIC VAGINITIS 07/12/2011 V72.31 TRACTOR EXPERT EXAM, ROUTINE 07/12/2011 627.3 POST MENOPAUSAL ATROPHIC VAGINITIS 07/12/2011 V72.31 TRACTOR EXPERT EXAM, ROUTINE 07/12/2011 627.3 POST MENOPAUSAL ATROPHIC VAGINITIS 07/12/2011 V72.31 TRACTOR EXPERT EXAM, ROUTINE 07/12/2011 627.3 POST MENOPAUSAL ATROPHIC VAGINITIS 07/12/2011 V72.31 TRACTOR EXPERT EXAM, ROUTINE 07/12/2011 627.3 POST MENOPAUSAL ATROPHIC VAGINITIS 07/12/2011 V72.31 TRACTOR EXPERT EXAM, ROUTINE 07/12/2011 627.3 POST MENOPAUSAL ATROPHIC VAGINITIS 07/12/2011 V72.31 TRACTOR EXPERT EXAM, ROUTINE 07/12/2011 627.3 POST MENOPAUSAL ATROPHIC VAGINITIS 07/12/2011 V72.31 TRACTOR EXPERT EXAM, ROUTINE 07/12/2011 DI SHUKLA DO 627.3 POSTMENOPAUSAL ATROPHIC VAGINITIS 07/12/2011 DI SHUKLA DO V72.31 TRACTOR EXPERT EXAM, ROUTINE 07/12/2011 DI SHUKLA DO 627.3 POSTMENOPAUSAL ATROPHIC VAGINITIS 07/12/2011 SHUKLA DI LANGLEY V72.31 TRACTOR EXPERT EXAM, ROUTINE 07/12/2011 DI SHUKLA DO 627.3 POSTMENOPAUSAL ATROPHIC VAGINITIS 07/12/2011 SHUKLA HOLLY LANGLEYA Nick V72.31 TRACTOR EXPERT EXAM, ROUTINE 07/12/2011 SHUKLA HOLLY LANGLEYA Nick 627.3 POSTMENOPAUSAL ATROPHIC VAGINITIS 07/12/2011 HOLLY SHUKLA DOA Nick V72.31 TRACTOR EXPERT EXAM, ROUTINE 07/12/2011 TARIQ TATE APRN 627.3 POSTMENOPAUSAL ATROPHIC VAGINITIS 07/12/2011 TATE TARIQ WARNER V72.31 TRACTOR EXPERT EXAM, ROUTINE 07/12/2011 TATE TARIQ WARNER 627.3 POSTMENOPAUSAL ATROPHIC VAGINITIS 07/12/2011 TATE TARIQ WARNER V72.31 TRACTOR EXPERT EXAM, ROUTINE 07/12/2011 SHUKLA DI LANGLEY 627.3 POSTMENOPAUSAL ATROPHIC VAGINITIS 07/12/2011 SHUKLA DO, DI Romero V72.31 TRACTOR EXPERT EXAM, ROUTINE 07/12/2011 SHUKLA DO, DI Romero 627.3 POSTMENOPAUSAL ATROPHIC VAGINITIS 07/12/2011 SHUKLA DO, DI Romero V72.31 TRACTOR EXPERT EXAM, ROUTINE 07/12/2011 SHUKLA DODI 627.3 POSTMENOPAUSAL ATROPHIC VAGINITIS 07/12/2011 SHUKLA DO, DI Romero V72.31 TRACTOR EXPERT EXAM, ROUTINE 07/12/2011 SHUKLA DI LANGLEY 627.3 POSTMENOPAUSAL ATROPHIC VAGINITIS 07/12/2011 SHUKLA DODI V72.31 TRACTOR EXPERT EXAM, ROUTINE 07/12/2011 THEO GRIER APRN 627.3 POSTMENOPAUSAL ATROPHIC VAGINITIS 07/12/2011 SAMEERALTHEO YA APRN V72.31 TRACTOR EXPERT EXAM, ROUTINE 07/12/2011 TATE TARIQ WARENR 627.3 POSTMENOPAUSAL ATROPHIC VAGINITIS 07/12/2011 TATE TARIQ WARNER V72.31 TRACTOR EXPERT EXAM, ROUTINE 07/12/2011 DI SHUKLA DO 627.3 POSTMENOPAUSAL ATROPHIC VAGINITIS 07/12/2011 SHUKLA DODI V72.31 TRACTOR EXPERT EXAM, ROUTINE 07/12/2011 SHUKLA DODI 627.3 POSTMENOPAUSAL ATROPHIC VAGINITIS 07/12/2011 SHUKLA DO, DI K V72.31 TRACTOR EXPERT EXAM, ROUTINE 09/17/2011 TARIQ TATE APRN 354.0 CARPAL TUNNEL SYNDROME 09/17/2011 354.0 CARP AL TUNNEL SYNDROME 09/17/2011 354.0 CARP AL TUNNEL SYNDROME 09/17/2011 354.0 CARP AL TUNNEL SYNDROME 09/17/2011 354.0 CARP AL TUNNEL SYNDROME 09/17/2011 354.0 CARP AL TUNNEL SYNDROME 09/17/2011 354.0 CARP AL TUNNEL SYNDROME 09/17/2011 354.0 CARP AL TUNNEL SYNDROME 09/17/2011 354.0 CARP AL TUNNEL SYNDROME 09/17/2011 SHUKLA DO, DI K [...] 729.1 MYALGIA AND MYOSITIS, UNSPECIFIED 06/23/2012 726.90 TEN DONITIS 06/23/2012 729.1 MYAL DAVE AND MYOSITIS, UNSPECIFIED 06/23/2012 726.90 TEN DONITIS 06/23/2012 729.1 MYAL DAVE AND MYOSITIS, UNSPECIFIED 06/23/2012 726.90 TEN DONITIS 06/23/2012 729.1 MYAL DAVE AND MYOSITIS, UNSPECIFIED 06/23/2012 726.90 TEN DONITIS 06/23/2012 729.1 MYAL DAVE AND MYOSITIS, UNSPECIFIED 06/23/2012 726.90 TEN DONITIS 06/23/2012 729.1 MYAL DAVE AND MYOSITIS, UNSPECIFIED 06/23/2012 726.90 TEN DONITIS 06/23/2012 729.1 MYAL DAVE AND MYOSITIS, UNSPECIFIED 06/23/2012 726.90 TEN DONITIS 06/23/2012 729.1 MYAL DAVE AND MYOSITIS, UNSPECIFIED 06/23/2012 726.90 TEN DONITIS 06/23/2012 729.1 MYAL DAVE AND MYOSITIS, UNSPECIFIED 06/23/2012 SHUKLA DO DI K 726.90 TENDONITIS 06/23/2012 SHUKLA DO, DI K 729.1 MYALGIA AND MYOSITIS, UNSPECIFIED 06/23/2012 SHUKLA DO, DI K 726.90 TENDONITIS 06/23/2012 SHUKLA DO, DI K 729.1 MYALGIA AND MYOSITIS, UNSPECIFIED 06/23/2012 SHUKLA DO, DI K 726.90 TENDONITIS 06/23/2012 SHUKLA DO DI K 729.1 MYALGIA AND MYOSITIS, UNSPECIFIED 06/23/2012 SHUKLA DO, DI K 726.90 TENDONITIS 06/23/2012 SHUKLA DO, DI K 729.1 MYALGIA AND MYOSITIS, UNSPECIFIED 06/23/2012 TATETARIQ CHRISTINE APRN 726.90 TENDONITIS 06/23/2012 TARIQ TATE APRN 729.1 MYALGIA AND MYOSITIS, UNSPECIFIED 06/23/2012 TARIQ TATE APRN 726.90 TENDONITIS 06/23/2012 TARIQ TATE APRN 729.1 MYALGIA AND MYOSITIS, UNSPECIFIED 06/23/2012 SHUKLA DO DI K 726.90 TENDONITIS 06/23/2012 SHUKLA DO, [...] K 729.1 MYALGIA AND MYOSITIS, UNSPECIFIED 06/23/2012 SAMEERATHEO VILLAR APRN E 726.90 TENDONITIS 06/23/2012 THEO GRIER APRN E 729.1 MYALGIA AND MYOSITIS, UNSPECIFIED 06/23/2012 TARIQ TATE APRN 726.90 TENDONITIS 06/23/2012 TARIQ TATE APRN 729.1 MYALGIA AND MYOSITIS, UNSPECIFIED 06/23/2012 DI SHUKLA DO 726.90 TENDONITIS 06/23/2012 DI SHUKLA DO 729.1 MYALGIA AND MYOSITIS, UNSPECIFIED 06/23/2012 DI SHUKLA DO K 726.90 TENDONITIS 06/23/2012 DI SHUKLA DO 729.1 MYALGIA AND MYOSITIS, UNSPECIFIED 08/11/2012 TARIQ [...] DX (3 YRS AND ABOVE, IM) 08/11/2012 DI SHUKLA DO V04.81 FLU DX (3 YRS AND ABOVE, IM) 08/11/2012 DI SHUKLA DO K V04.81 FLU DX (3 YRS AND ABOVE, IM) 08/11/2012 DI SHUKLA DO K V04.81 FLU DX (3 YRS AND ABOVE, IM) 08/11/2012 DI SHUKLA DO K V04.81 FLU DX (3 YRS AND [...] DX (3 YRS AND ABOVE, IM) 08/13/2012 TARIQ TATE APRN V76.10 BREAST SCREENING UNSPECIFIED 08/13/2012 V76.10 CODY AST SCREENING UNSPECIFIED 08/13/2012 V76.10 CODY AST SCREENING UNSPECIFIED 08/13/2012 V76.10 CODY AST SCREENING UNSPECIFIED 08/13/2012 V76.10 CODY AST SCREENING UNSPECIFIED 08/13/2012 V76.10 CODY AST SCREENING UNSPECIFIED 08/13/2012 V76.10 CODY AST SCREENING UNSPECIFIED 08/13/2012 V76.10 CODY AST SCREENING UNSPECIFIED 08/13/2012 V76.10 CODY AST SCREENING UNSPECIFIED 08/13/2012 HOLLY SHUKLA DOA K V76.10 BREAST SCREENING UNSPECIFIED 08/13/2012 SHUKLA DO, DI K V76.10 BREAST SCREENING UNSPECIFIED 08/13/2012 SHUKLA DO, DI K V76.10 BREAST SCREENING UNSPECIFIED 08/13/2012 SHUKLA , DI K V76.10 BREAST SCREENING UNSPECIFIED 08/13/2012 TARIQ TATE APRN V76.10 BREAST SCREENING UNSPECIFIED 08/13/2012 TARIQ TATE APRN V76.10 BREAST SCREENING UNSPECIFIED 08/13/2012 SHUKLA DI LANGLEY K V76.10 BREAST SCREENING UNSPECIFIED 08/13/2012 SHUKLA DO, DI K V76.10 BREAST SCREENING UNSPECIFIED 08/13/2012 SHUKLA DO, DI K V76.10 BREAST SCREENING UNSPECIFIED 08/13/2012 SHUKLA DO, DI K V76.10 BREAST SCREENING UNSPECIFIED 08/13/2012 MARVEL COLEMANTrina THEO Shelly V76.10 BREAST SCREENING UNSPECIFIED 08/13/2012 TARIQ TATE APRN V76.10 BREAST SCREENING UNSPECIFIED 08/13/2012 SHUKLA DO, DI K V76.10 BREAST SCREENING UNSPECIFIED 08/13/2012 SHUKLA DO, DI K V76.10 BREAST SCREENING UNSPECIFIED 09/08/2012 TARIQ TATE APRN 461.9 SINUSITIS ACUTE 09/08/2012 TARIQ TATE APRN 477.9 RHINITIS 09/08/2012 461.9 SINU SITIS ACUTE 09/08/2012 477.9 RHINITIS 09/08/2012 461.9 SINU SITIS ACUTE 09/08/2012 477.9 RHINITIS 09/08/2012 461.9 SINU SITIS ACUTE 09/08/2012 477.9 RHINITIS 09/08/2012 461.9 SINU SITIS ACUTE 09/08/2012 477.9 RHINITIS 09/08/2012 461.9 SINU SITIS ACUTE 09/08/2012 477.9 RHINITIS 09/08/2012 461.9 SINU SITIS ACUTE 09/08/2012 477.9 RHINITIS 09/08/2012 461.9 SINU SITIS ACUTE 09/08/2012 477.9 RHINITIS 09/08/2012 461.9 SINU SITIS ACUTE 09/08/2012 477.9 RHINITIS 09/08/2012 SHUKLA DO, [...] SHUKLA DO, DI K 477.9 RHINITIS 09/08/2012 TATE DERMATOLOGIST, TARIQ R 461.9 SINUSITIS ACUTE 09/08/2012 TATE DERMATOLOGIST, TARIQ R 477.9 RHINITIS 09/08/2012 TATE DERMATOLOGIST, TARIQ R 461.9 SINUSITIS ACUTE 09/08/2012 TATE DERMATOLOGIST, TARIQ R 477.9 RHINITIS 09/08/2012 SHUKLA DO, [...] SHUKLA DO, DI K 477.9 RHINITIS 09/08/2012 HELLWIG DERMATOLOGISTTHEO E 461.9 SINUSITIS ACUTE 09/08/2012 HELLWIG DERMATOLOGIST, THEO E 477.9 RHINITIS 09/08/2012 TATE DERMATOLOGIST, TARIQ R 461.9 SINUSITIS ACUTE 09/08/2012 TATE DERMATOLOGIST, TARIQ R 477.9 RHINITIS 09/08/2012 SHUKLA DO, DI K 461.9 SINUSITIS ACUTE 09/08/2012 SHUKLA DO, DI K 477.9 RHINITIS 09/08/2012 SHUKLA DO, DI K 461.9 SINUSITIS ACUTE 09/08/2012 SHUKLA DO, DI K 477.9 RHINITIS 12/29/2012 473.9 SINU SITIS (CHRONIC) 12/29/2012 473.9 SINU SITIS (CHRONIC) 12/29/2012 473.9 SINU SITIS (CHRONIC) 12/29/2012 473.9 SINU SITIS (CHRONIC) 12/29/2012 473.9 SINU SITIS (CHRONIC) 12/29/2012 473.9 SINU SITIS (CHRONIC) 12/29/2012 473.9 SINU SITIS (CHRONIC) 12/29/2012 SHUKLA DO, DI K 473.9 SINUSITIS (CHRONIC) 12/29/2012 SHUKLA DO, DI K 473.9 SINUSITIS (CHRONIC) 12/29/2012 SHUKLA DO, DI K 473.9 SINUSITIS (CHRONIC) 12/29/2012 SHUKLA DO, DI K 473.9 SINUSITIS (CHRONIC) 12/29/2012 TARIQ TATE APRN 473.9 SINUSITIS (CHRONIC) 12/29/2012 TARIQ TATE APRN 473.9 SINUSITIS (CHRONIC) 12/29/2012 SHUKLA DO, DI K 473.9 SINUSITIS (CHRONIC) 12/29/2012 SHUKLA DO, DI K 473.9 SINUSITIS (CHRONIC) 12/29/2012 SHUKLA DO, DI K 473.9 SINUSITIS (CHRONIC) 12/29/2012 SHUKLA DO, DI K 473.9 SINUSITIS (CHRONIC) 12/29/2012 THEO GRIER APRN 473.9 SINUSITIS (CHRONIC) 12/29/2012 SHUKLA DO, DI K 473.9 SINUSITIS (CHRONIC) 12/29/2012 SHUKLA DO, DI K 473.9 SINUSITIS (CHRONIC) 01/26/2013 716.90 ART HRITIS/ ARTHROPATHY, UNSPECIFIED 01/26/2013 716.90 ART HRITIS/ ARTHROPATHY, UNSPECIFIED 01/26/2013 716.90 ART HRITIS/ ARTHROPATHY, UNSPECIFIED 01/26/2013 716.90 ART HRITIS/ ARTHROPATHY, UNSPECIFIED 01/26/2013 716.90 ART HRITIS/ ARTHROPATHY, UNSPECIFIED 01/26/2013 716.90 ART HRITIS/ ARTHROPATHY, UNSPECIFIED 01/26/2013 SHUKLA DO, DI K 716.90 ARTHRITIS/ ARTHROPATHY, UNSPECIFIED 01/26/2013 SHUKLA DO, DI K 716.90 ARTHRITIS/ ARTHROPATHY, UNSPECIFIED 01/26/2013 SHUKLA DO, DI K 716.90 ARTHRITIS/ ARTHROPATHY, UNSPECIFIED 01/26/2013 SHUKLA DO, DI K 716.90 ARTHRITIS/ ARTHROPATHY, UNSPECIFIED 01/26/2013 TARIQ TATE APRN 716.90 ARTHRITIS/ ARTHROPATHY, UNSPECIFIED 01/26/2013 TARIQ TATE APRN 716.90 ARTHRITIS/ ARTHROPATHY, UNSPECIFIED 01/26/2013 SHUKLA DO DI K 716.90 ARTHRITIS/ ARTHROPATHY, UNSPECIFIED 01/26/2013 SHUKLA DO, DI K 716.90 ARTHRITIS/ ARTHROPATHY, UNSPECIFIED 01/26/2013 SHUKLA DO, DI K 716.90 ARTHRITIS/ ARTHROPATHY, UNSPECIFIED 01/26/2013 SHUKLA DO, DI K 716.90 ARTHRITIS/ ARTHROPATHY, UNSPECIFIED 01/26/2013 THEO GRIER APRN 716.90 ARTHRITIS/ ARTHROPATHY, UNSPECIFIED 01/26/2013 SHUKLA DO, DI K 716.90 ARTHRITIS/ ARTHROPATHY, UNSPECIFIED 01/26/2013 SHUKLA DO, DI K 716.90 ARTHRITIS/ ARTHROPATHY, UNSPECIFIED 07/07/2013 382.9 UNSP ECIFIED OTITIS MEDIA 07/07/2013 382.9 UNSP ECIFIED OTITIS MEDIA 07/07/2013 SHUKLA DO, DI K 382.9 UNSPECIFIED OTITIS MEDIA 07/07/2013 SHUKLA DO, DI K 382.9 UNSPECIFIED OTITIS MEDIA 07/07/2013 SHUKLA DO, DI K 382.9 UNSPECIFIED OTITIS MEDIA 07/07/2013 SHUKLA DO, DI K 382.9 UNSPECIFIED OTITIS MEDIA 07/07/2013 TARIQ TATE APRN 382.9 UNSPECIFIED OTITIS MEDIA 07/07/2013 TARIQ TATE APRN 382.9 UNSPECIFIED OTITIS MEDIA 07/07/2013 SHUKLA DO, DI K 382.9 UNSPECIFIED OTITIS MEDIA 07/07/2013 SHUKLA DO, DI K 382.9 UNSPECIFIED OTITIS MEDIA 07/07/2013 SHUKLA DO, DI K 382.9 UNSPECIFIED OTITIS MEDIA 07/07/2013 SHUKLA DO, DI K 382.9 UNSPECIFIED OTITIS MEDIA 07/07/2013 THEO GRIER APRN 382.9 UNSPECIFIED OTITIS MEDIA 07/07/2013 SHUKLA DO, DI K 382.9 UNSPECIFIED OTITIS MEDIA 07/07/2013 SHUKLA DO, DI K 382.9 UNSPECIFIED OTITIS MEDIA 07/21/2013 466.0 BRON CHITIS, ACUTE 07/21/2013 SHUKLA DO, DI K 466.0 BRONCHITIS, ACUTE 07/21/2013 SHUKLA DO, DI K 466.0 BRONCHITIS, ACUTE 07/21/2013 SHUKLA DO, DI K 466.0 BRONCHITIS, ACUTE 07/21/2013 SHUKLA DO, DI K 466.0 BRONCHITIS, ACUTE 07/21/2013 TARIQ TATE APRN 466.0 BRONCHITIS, ACUTE 07/21/2013 TARIQ TATE APRN R 466.0 BRONCHITIS, ACUTE 07/21/2013 SHUKLA DO, DI K 466.0 BRONCHITIS, ACUTE 07/21/2013 SHUKLA DO, DI K 466.0 BRONCHITIS, ACUTE 07/21/2013 SHUKLA DO, DI K 466.0 BRONCHITIS, ACUTE 07/21/2013 SHUKLA DO, DI K 466.0 BRONCHITIS, ACUTE 07/21/2013 THEO GRIER APRN E 466.0 BRONCHITIS, ACUTE 07/21/2013 SHUKLA DO, DI K 466.0 BRONCHITIS, ACUTE 07/21/2013 SHUKLA DO, DI K 466.0 BRONCHITIS, ACUTE 09/23/2013 SHUKLA DO, DI K 465.9 UPPER RESPIRATORY INFECTION 09/23/2013 SHUKLA DO, DI K 465.9 UPPER RESPIRATORY INFECTION 09/23/2013 SHUKLA DO, DI K 465.9 UPPER RESPIRATORY INFECTION 09/23/2013 TARIQ TATE APRN R 465.9 UPPER RESPIRATORY INFECTION 09/23/2013 TARIQ TATE APRN 465.9 UPPER RESPIRATORY INFECTION 09/23/2013 SHUKLA DO, DI K 465.9 UPPER RESPIRATORY INFECTION 09/23/2013 SHUKLA DO, DI K 465.9 UPPER RESPIRATORY INFECTION 09/23/2013 SHUKLA DO, DI K 465.9 UPPER RESPIRATORY INFECTION 09/23/2013 SHUKLA DO, DI K 465.9 UPPER RESPIRATORY INFECTION 09/23/2013 THEO GRIER APRN E 465.9 UPPER RESPIRATORY INFECTION 09/23/2013 SHUKLA DO, [...] K 786.2 COUGH 10/26/2013 THEO GRIER APRN E 786.2 COUGH 10/26/2013 SHUKLA DO, DI K 786.2 COUGH 10/26/2013 SHUKLA , DI K 786.2 COUGH 12/10/2013 TARIQ TATE APRN 487.1 INFLUENZA 12/10/2013 SHUKLA DO, DI K 487.1 INFLUENZA 12/10/2013 SHUKLA DO, DI K 487.1 INFLUENZA 12/10/2013 SHUKLA DO, DI K 487.1 INFLUENZA 12/10/2013 SHUKLA DO, DI K 487.1 INFLUENZA 12/10/2013 THEO GRIER APRN 487.1 INFLUENZA 12/10/2013 SHUKLA DO, DI K 487.1 INFLUENZA 12/10/2013 SHUKLA , DI K 487.1 INFLUENZA 06/08/2014 NILA LEE DERMATOLOGIST Ot 590.80 PYELONEPHRITIS NOS 06/08/2014 NILA LEE DERMATOLOGIST Ot 724 .2 LUMBAGO 06/14/2014 VAZQUEZ LANGLEY, DI K 599.0 URINARY TRACT INFECTION 06/14/2014 VAZQUEZ LANGLEY, DI K 599.0 URINARY TRACT INFECTION 06/14/2014 VAZQUEZ LANGLEY, DI K 599.0 URINARY TRACT INFECTION 06/14/2014 THEO GRIER APRN 599.0 URINARY TRACT INFECTION 06/14/2014 VAZQUEZ LANGLEY, DI K 599.0 URINARY TRACT INFECTION 06/14/2014 VAZQUEZ LANGLEY, DI K 599.0 URINARY TRACT INFECTION 07/28/2014 SITA CLARKE Ot 784.0 HEADACHE 07/28/2014 SITA CLARKE Ot 850.0 CONCUSSION W/O COMA 07/28/2014 SITA CLARKE Ot E000.8 OTHER EXTERNAL CAUSE STATUS 07/28/2014 SITA CLARKE Ot E849.0 ACCIDENT IN HOME 07/28/2014 SITA CLARKE Ot E917.9 STRUCK BY OBJ/PERSON NEC 09/17/2014 CANDIE HERNANDEZ Ot V76.12 09/17/2014 THEO GRIER DERMATOLOGIST Ot V76.12 09/17/2014 THEO GRIER DERMATOLOGIST Ot V76.12 09/17/2014 THEO GRIER DERMATOLOGIST Ot V76.12 12/26/2014 Ot 466.0 ACUT E BRONCHITIS 12/26/2014 Ot 786.2 COUGH 12/29/2014 CANDIE HERNANDEZ BUSINESS PROCESS LEAD Ot V76.12 12/29/2014 THEO GRIER ALANA Ot V76.12 01/18/2015 DI SHUKLA DO K 786.05 SHORTNESS OF BREATH 02/03/2015 NILA LEE DERMATOLOGIST Ot 724 .2 LUMBAGO 02/03/2015 NILA LEE DERMATOLOGIST Ot 959.19 OTH INJURY OF OTHER SITES OF TRUNK 02/03/2015 NILA LEE DERMATOLOGIST Ot E000.8 OTHER EXTERNAL CAUSE STATUS 02/03/2015 NILA LEE DERMATOLOGIST Ot E849.0 ACCIDENT IN HOME 02/03/2015 NILA LEE APRN Ot E888.9 FALL NOS 02/07/2015 DI SHUKLA DO K 496 COPD 02/11/2015 VAZQUEZ LANGLEY DI K 380.10 INFECTIVE OTITIS EXTERNA UNSPECIFIED 03/04/2015 TARIQ TATE R CFNP Ot 496 03/04/2015 TARIQ TATE R CFNP Ot 786.05 03/25/2015 BEBETO TARIQ R CFNP Ot 496 03/25/2015 BEBETO, TARIQ R CFNP Ot 786.05 04/17/2015 NILA LEE APRN Ot 496 CHR AIRWAY OBSTRUCT NEC 04/17/2015 NILA LEE DERMATOLOGIST Ot 786 .2 COUGH 04/19/2015 TATETARIQ CHRISTINE R CFNP Ot 573.8 04/19/2015 TATE TARIQ R CFNP Ot 786.05 04/19/2015 TATE, TARIQ R CFNP Ot 786.2 04/19/2015 TATE, TARIQ R CFNP Ot 793.19 04/28/2015 TATE, TARIQ R CFNP Ot 573.8 04/28/2015 TATE TARIQ R CFNP Ot 786.05 04/28/2015 TATE, TARIQ R CFNP Ot 786.2 04/28/2015 TATE, TARIQ R CFNP Ot 793.19 05/02/2015 NILA LEE DERMATOLOGIST Ot 881.00 OPEN WOUND OF FOREARM 05/02/2015 NILA LEE DERMATOLOGIST Ot 919 .0 ABRASION NEC 05/02/2015 NILA LEE DERMATOLOGIST Ot E000.8 OTHER EXTERNAL CAUSE STATUS 05/02/2015 NILA LEE DERMATOLOGIST Ot E906.0 DOG BITE 05/02/2015 NILA LEE DERMATOLOGIST Ot V06 .1 [id number], COMBINED [ 05/07/2015 CANDIE HERNANDEZP Ot V76.12 05/07/2015 THEO GRIER APRN Ot V76.12 05/07/2015 TATETARIQ R CFNP Ot 496 05/07/2015 TATETARIQ R CFNP Ot 786.05 05/07/2015 TATETARIQ R CFNP Ot 573.8 05/07/2015 TATETARIQ R CFNP Ot 786.05 05/07/2015 TATE, TARIQ R CFNP Ot 786.2 05/07/2015 TATETARIQ R CFNP Ot 793.19 05/07/2015 CANDIE HERNANDEZP Ot V76.12 05/07/2015 THEO GRIER DERMATOLOGIST Ot V76.12 05/07/2015 TATETARIQ R CFNP Ot 496 05/07/2015 TATETARIQ R CFNP Ot 786.05 05/07/2015 TATETARIQ R CFNP Ot 573.8 05/07/2015 TATE, TARIQ R CFNP Ot 786.05 05/07/2015 TATE, TARIQ R CFNP Ot 786.2 05/07/2015 TATETARIQ CFNP Ot 793.19 05/07/2015 NILA LEE DERMATOLOGIST Ot 686 .9 LOCAL SKIN INFECTION NOS 05/07/2015 NILA LEE DERMATOLOGIST Ot 881.00 OPEN WOUND OF FOREARM 05/07/2015 NILA LEE DERMATOLOGIST Ot 890 .0 OPEN WOUND OF HIP/THIGH 05/07/2015 NILA LEE DERMATOLOGIST Ot E000.8 OTHER EXTERNAL CAUSE STATUS 05/07/2015 NILA LEE DERMATOLOGIST Ot E906.0 DOG BITE 05/10/2015 CANDIE HERNANDEZ BUSINESS PROCESS LEAD Ot V76.12 05/10/2015 THEO GRIER DERMATOLOGIST Ot V76.12 05/10/2015 TARIQ TATE CFNP Ot 496 05/10/2015 TATE, TARIQ R CFNP Ot 786.05 05/10/2015 TATE, TARIQ R CFNP Ot 573.8 05/10/2015 TATE, TARIQ R CFNP Ot 786.05 05/10/2015 TATE, TARIQ R CFNP Ot 786.2 05/10/2015 TATE, TARIQ R CFNP Ot 793.19 06/07/2015 CANDIE HERNANDEZ Ot V76.12 06/07/2015 THEO GRIER APRN Ot V76.12 06/07/2015 TATE, TARIQ R CFNP Ot 496 06/07/2015 TATE, TARIQ R CFNP Ot 786.05 06/07/2015 TATE, TARIQ R CFNP Ot 573.8 06/07/2015 TATE, TARIQ R CFNP Ot 786.05 06/07/2015 TATE, TARIQ R CFNP Ot 786.2 06/07/2015 TATE, TARIQ R CFNP Ot 793.19 06/07/2015 LALITHA SQUIRES DO M Ot 278. 00 06/07/2015 TAVIA LANGLEY, LALITHA M Ot 496 06/07/2015 TAVIA LANGLEY, LALITHA M Ot 278. 00 06/07/2015 TAVIA LANGLEY, LALITHA M Ot 496 06/08/2015 TAVIA DO, LALITHA M Ot 278. 00 06/08/2015 TAVIA LANGLEY, LALITHA M Ot 493. 20 06/16/2015 TAVIA LANGLEY, LALITHA M Ot 278. 00 06/16/2015 TAVIA DO, LALITHA M Ot 496 06/17/2015 LALITHA SQUIRES DO M Ot 493. 90 ASTHMA, UNSPECIFIED 06/17/2015 TAVIA DOLALITHA M Ot 786. 09 RESPIRATORY ABNORM NEC 07/18/2015 TAVIA LANGLEY, LALITHA M Ot 278. 00 07/18/2015 TAVIA LANGLEY, LALITHA M Ot 493. 20 08/01/2015 TAVIA LANGLEY, LALITHA M Ot 278. 00 08/01/2015 STAR SQUIRES DOSON M Ot 493. 20 08/08/2015 ANA PAULA HERBERT, LUZ Canas Ot M25.511 PAIN IN RIGHT SHOULDER 08/08/2015 CANDIE HERNANDEZ Ot V76.12 08/08/2015 THEO GRIER APRN Ot V76.12 08/08/2015 TATETARIQ CHRISTINE CFNP Ot 496 08/08/2015 TATETARIQ R CFNP Ot 786.05 08/08/2015 TATETARIQ R CFNP Ot 573.8 08/08/2015 TATETARIQ R CFNP Ot 786.05 08/08/2015 TATETARIQ CFNP Ot 786.2 08/08/2015 TATETARIQ CFNP Ot 793.19 08/08/2015 LALITHA SQUIRES DO Ot 278. 00 08/08/2015 LALITHA SQUIRES DO Ot 496 08/08/2015 LALITHA SQUIRES DO Ot 278. 00 08/08/2015 LALITHA SQUIRES DO Ot 493. 20 08/20/2015 Ot M54.9 DORS ALGIA, UNSPECIFIED 08/20/2015 Ot N39.0 URIN SHANIA TRACT INFECTION, SITE NOT SPECIF 08/20/2015 Ot R91.8 OTHE R NONSPECIFIC ABNORMAL FINDING OF NOAM 08/24/2015 CANDIE HERNANDEZ Ot V76.12 08/24/2015 THEO GRIER APRN Ot V76.12 08/24/2015 TATETARIQ CHRISTINE CFNP Ot 496 08/24/2015 TATETARIQ CHRISTINE R CFNP Ot 786.05 08/24/2015 TATETARIQ CHRISTINE CFNP Ot 573.8 08/24/2015 TATETARIQ CHRISTINE R CFNP Ot 786.05 08/24/2015 TATETARIQ R CFNP Ot 786.2 08/24/2015 TATETARIQ R CFNP Ot 793.19 08/24/2015 LALITHA SQUIRES DO Ot 278. 00 08/24/2015 LALITHA SQUIRES DO Ot 496 08/24/2015 LALITHA SQUIRES DO Ot 278. 00 08/24/2015 LALITHA SQUIRES DO Ot 493. 20 08/24/2015 CANDIE HERNANDEZP Ot V76.12 08/24/2015 THEO GRIER DERMATOLOGIST Ot V76.12 08/24/2015 TATETARIQ CHRISTINE R CFNP Ot 496 08/24/2015 TARIQ TATE R CFNP Ot 786.05 08/24/2015 TARIQ TATE R CFNP Ot 573.8 08/24/2015 TARIQ TATE R CFNP Ot 786.05 08/24/2015 TARIQ TATE R CFNP Ot 786.2 08/24/2015 TARIQ TATE R CFNP Ot 793.19 08/24/2015 LALITHA SQUIRES DO M Ot 278. 00 08/24/2015 STAR SQUIRES DOSON M Ot 496 08/24/2015 TAVIA DOSTARLALITHA M Ot 278. 00 08/24/2015 STAR SQUIRES DOSON M Ot 493. 20 08/26/2015 LALITHA SQUIRES DO M Ot J44. 9 08/26/2015 LALITHA SQUIRES DO M Ot J45.909 08/26/2015 CANDIE HERNANDEZ Ot V76.12 08/26/2015 THEO GRIER APRN Ot V76.12 08/26/2015 TARIQ TATE R CFNP Ot 496 08/26/2015 TARIQ TATE R CFNP Ot 786.05 08/26/2015 TARIQ TATE R CFNP Ot 573.8 08/26/2015 TARIQ TATE R CFNP Ot 786.05 08/26/2015 TARIQ TATE R CFNP Ot 786.2 08/26/2015 TARIQ TATE R CFNP Ot 793.19 08/26/2015 STAR SQUIRES DOSON M Ot 278. 00 08/26/2015 STAR SQUIRES DOSON M Ot 496 08/26/2015 STAR SQUIRES DOSON M Ot 278. 00 08/26/2015 STAR SQUIRES DOSON M Ot 493. 20 08/26/2015 THEO GRIER APRN Ot Z12.31 08/26/2015 STAR SQUIRES DOSON M Ot J44. 9 08/26/2015 STAR SQUIRES DOSON M Ot J45.909 08/31/2015 STAR SQUIRES DOSON M Ot J44. 9 08/31/2015 STAR SQUIRES DOSON M Ot J45.909 09/07/2015 THEO GRIER APRN Ot Z12.31 09/13/2015 THEO GRIER APRN Ot Z12.31 09/28/2015 LALITHA SQUIRES DO Ot J44. 9 09/28/2015 LALITHA SQUIRES DO M Ot J45.909 10/17/2015 TAVIA DOLALITHA M Ot J44. 9 10/17/2015 TAVIA DOLALITHA M Ot J45.909 10/17/2015 LALITHA SQUIRES DO M Ot J44. 9 10/17/2015 LALITHA SQUIRES DO M Ot J45.909 10/26/2015 TAVIA DOLALITHA M Ot J44. 9 10/26/2015 TAVIA DOLALITHA M Ot J45.909 10/26/2015 LALITHA SQUIRES DO M Ot J44. 9 10/26/2015 LALITHA SQUIRES DO M Ot J45.909 10/26/2015 LALITHA SQUIRES DO M Ot J44. 9 10/26/2015 LALITHA SQUIRES DO M Ot J45.909 10/26/2015 LALITHA SQUIRES DO Ot J44. 9 10/26/2015 LALITHA SQUIRES DO M Ot J45.909 11/22/2015 LALITHA SQUIRES DO Ot J44. 9 CHRONIC OBSTRUCTIVE PULMONARY DISEASE, U 11/22/2015 LALITHA SQUIRES DO Ot J45.909 UNSPECIFIED ASTHMA, UNCOMPLICATED 11/23/2015 LALITHA SQUIRES DO Ot J44. 9 11/23/2015 LALITHA SQUIRES DO M Ot J45.909 11/23/2015 LALITHA SQUIRES DO M Ot J44. 9 11/23/2015 LALITHA SQUIRES DO M Ot J45.909 11/23/2015 LALITHA SQUIRES DO M Ot J44. 9 11/23/2015 LALITHA SQUIRES DO M Ot J45.909 11/23/2015 LALITHA SQUIRES DO M Ot J44. 9 11/23/2015 LALITHA SQUIRES DO M Ot J45.909 11/23/2015 LALITHA SQUIRES DO M Ot J44. 9 11/23/2015 LALITHA SQUIRES DO Ot J45.909 12/21/2015 LALITHA SQUIRES DO M Ot J44. 9 12/21/2015 TAVIA DOLALITHA M Ot J45.909 12/21/2015 TAVIA DOLALITHA M Ot J44. 9 12/21/2015 TAVIA DO, LALITHA M Ot J45.909 01/18/2016 TAVIA DOSTARLALITHA M Ot J44. 9 01/18/2016 TAVIA DOLALITHA M Ot J45.909 01/18/2016 TAVIA DOLALITHA M Ot J44. 9 01/18/2016 TAVIA DOLALITHA M Ot J45.909 01/23/2016 TAVIA DOLALITHA M Ot J44. 9 01/23/2016 TAVIA DOLALITHA M Ot J45.909 01/28/2016 KERVIN LIAO DO Ot K52.9 NONINFECTIVE GASTROENTERITIS AND COLITIS 01/28/2016 CANDIE HERNANDEZ Ot V76.12 01/28/2016 THEO GRIER APRN Ot V76.12 01/28/2016 TARIQ TATE CFNP Ot 496 01/28/2016 TARIQ TATE R CFNP Ot 786.05 01/28/2016 TARIQ TATE CFNP Ot 573.8 01/28/2016 TARIQ TATE CFNP Ot 786.05 01/28/2016 TARIQ TATE CFNP Ot 786.2 01/28/2016 TARIQ TATE CFNP Ot 793.19 01/28/2016 LALITHA SQUIRES DO M Ot 278. 00 01/28/2016 LALITHA SQUIRES DO M Ot 496 01/28/2016 LALITHA SQUIRES DO M Ot 278. 00 01/28/2016 LALITHA SQUIRES DO M Ot 493. 20 01/28/2016 THEO GRIER APRN Ot Z12.31 01/28/2016 LALITHA SQUIRES DO M Ot J44. 9 01/28/2016 LALITHA SQUIRES DO M Ot J45.909 01/30/2016 KERVIN LIAO DO Ot K52.9 02/15/2016 LALITHA SQUIRES DO M Ot J44. 9 02/15/2016 LALITHA SQUIRES DO M Ot J45.909 02/15/2016 LALITHA SQUIRES DO M Ot J44. 9 02/15/2016 TAVIA DO LALITHA M Ot J45.909 02/21/2016 TAVIA DOSTARLALITHA M Ot J44. 9 CHRONIC OBSTRUCTIVE PULMONARY DISEASE, U 02/21/2016 TAVIA DO, LALITHA M Ot J45.909 UNSPECIFIED ASTHMA, UNCOMPLICATED 03/14/2016 TAVIA DOSTARLALITHA M Ot J44. 9 CHRONIC OBSTRUCTIVE PULMONARY DISEASE, U 03/14/2016 TAVIA DO, LALITHA M Ot J45.909 UNSPECIFIED ASTHMA, UNCOMPLICATED 03/14/2016 TAVIA DO, LALITHA M Ot J44. 9 CHRONIC OBSTRUCTIVE PULMONARY DISEASE, U 03/14/2016 TAVIA DO, LALITHA M Ot J45.909 UNSPECIFIED ASTHMA, UNCOMPLICATED 03/15/2016 TAVIA DOSTARLALITHA M Ot J44. 9 CHRONIC OBSTRUCTIVE PULMONARY DISEASE, U 03/15/2016 TAVIA DOSTARLALITHA M Ot J45.909 UNSPECIFIED ASTHMA, UNCOMPLICATED 03/20/2016 STAR SQUIRES DOSON M Ot J44. 9 CHRONIC OBSTRUCTIVE PULMONARY DISEASE, U 03/20/2016 TAVIA DO, LALITHA M Ot J45.909 UNSPECIFIED ASTHMA, UNCOMPLICATED 04/11/2016 TAVIA DO, LALITHA M Ot J44. 9 CHRONIC OBSTRUCTIVE PULMONARY DISEASE, U 04/11/2016 TAVIA DO, LALITHA M Ot J45.909 UNSPECIFIED ASTHMA, UNCOMPLICATED 05/09/2016 TAVIA DO, LALITHA M Ot J44. 9 CHRONIC OBSTRUCTIVE PULMONARY DISEASE, U 05/09/2016 TAVIA DO LALITHA M Ot J45.909 UNSPECIFIED ASTHMA, UNCOMPLICATED 06/06/2016 CANDIE [...] TARIQ TATE CFNP Ot 786.2 COUGH 06/06/2016 TATETARIQ CHRISTINE CFNP Ot 793.19 OTHER NONSPECIFIC ABNORMAL FINDING OF NOAM 06/06/2016 LALITHA SQUIRES DO Ot 278. 00 OBESITY, NOS 06/06/2016 LALITHA SQUIRES DO Ot 496 CHR AIRWAY OBSTRUCT NEC 06/06/2016 LALITHA SQUIRES DO Ot 278. 00 OBESITY, NOS 06/06/2016 LALITHA SQUIRES DO Ot 493. 20 CHRONIC OBSTRUCTIVE ASTHMA, NOS 06/06/2016 THEO GRIER DERMATOLOGIST Ot Z12.31 ENCNTR SCREEN MAMMOGRAM FOR MALIGNANT NE 06/06/2016 LALITHA SQUIRES DO Ot J44. 9 CHRONIC OBSTRUCTIVE PULMONARY DISEASE, U 06/06/2016 LALITHA SQUIRES DO Ot J45.909 UNSPECIFIED ASTHMA, UNCOMPLICATED 06/06/2016 CANDIE HERNANDEZ Ot V76.12 OTH SCREEN MAMMO-MALIGN NEOPLASM OF YOLY 06/06/2016 THEO GRIER DERMATOLOGIST Ot V76.12 OTH SCREEN MAMMO-MALIGN NEOPLASM OF [...] OF NOAM 06/06/2016 LALITHA SQUIRES DO Ot 278. 00 OBESITY, NOS 06/06/2016 LALITHA SQUIRES DO Ot 496 CHR AIRWAY OBSTRUCT NEC 06/06/2016 LALITHA SQUIRES DO Ot 278. 00 OBESITY, NOS 06/06/2016 LALITHA SQUIRES DO Ot 493. 20 CHRONIC OBSTRUCTIVE ASTHMA, NOS 06/06/2016 THEO GRIER E DERMATOLOGIST Ot Z12.31 ENCNTR SCREEN MAMMOGRAM FOR MALIGNANT NE 06/06/2016 LALITHA SQUIRES DO Ot J44. 9 CHRONIC OBSTRUCTIVE PULMONARY DISEASE, U 06/06/2016 STAR SQUIRES DOSON M Ot J45.909 UNSPECIFIED ASTHMA, UNCOMPLICATED 06/06/2016 LALITHA SQUIRES DO M Ot J44. 9 CHRONIC OBSTRUCTIVE PULMONARY DISEASE, U 06/06/2016 STAR SQUIRES DOSON M Ot J45.909 UNSPECIFIED ASTHMA, UNCOMPLICATED 06/06/2016 STAR SQUIRES DOSON M Ot J44. 9 CHRONIC OBSTRUCTIVE PULMONARY DISEASE, U 06/06/2016 STAR SQUIRES DOSON M Ot J45.909 UNSPECIFIED ASTHMA, UNCOMPLICATED 06/06/2016 STAR SQUIRES DOSON M Ot J44. 9 CHRONIC OBSTRUCTIVE PULMONARY DISEASE, U 06/06/2016 STAR SQUIRES DOSON M Ot J45.909 UNSPECIFIED ASTHMA, UNCOMPLICATED 06/06/2016 LALITHA SQUIRES DO M Ot J44. 9 CHRONIC OBSTRUCTIVE PULMONARY DISEASE, U 06/06/2016 STAR SQUIRES DOSON M Ot J45.909 UNSPECIFIED ASTHMA, UNCOMPLICATED 06/12/2016 STAR SQUIRES DOSON M Ot J44. 9 CHRONIC OBSTRUCTIVE PULMONARY DISEASE, U 06/12/2016 STAR SQUIRES DOSON M Ot J45.909 UNSPECIFIED ASTHMA, UNCOMPLICATED 06/19/2016 CANDIE HERNANDEZ Ot V76.12 OTH SCREEN MAMMO-MALIGN [...] OF NOAM 06/19/2016 LALITHA SQUIRES DO Ot 278. 00 OBESITY, NOS 06/19/2016 STAR SQUIRES DOSON M Ot 496 CHR AIRWAY OBSTRUCT NEC 06/19/2016 LALITHA SQUIRES DO Ot 278. 00 OBESITY, NOS 06/19/2016 LALITHA SQUIRES DO Ot 493. 20 CHRONIC OBSTRUCTIVE ASTHMA, NOS 06/19/2016 THEO GRIER APRN Ot Z12.31 ENCNTR SCREEN MAMMOGRAM FOR MALIGNANT NE 06/19/2016 LALITHA SQUIRES DO Ot J44. 9 CHRONIC OBSTRUCTIVE PULMONARY DISEASE, U 06/19/2016 LALITHA SQUIRES DO Ot J45.909 UNSPECIFIED ASTHMA, UNCOMPLICATED 06/19/2016 KEYSHAWN CLARKEEN L Ot M25.461 EFFUSION, RIGHT KNEE 06/19/2016 LUBA ZULETA, SITA L Ot M25.561 PAIN IN RIGHT KNEE 06/21/2016 LUBA ZULETA, SITA L Ot M25.461 EFFUSION, RIGHT KNEE 06/21/2016 LUBA ZULETA, SITA L Ot M25.561 PAIN IN RIGHT KNEE 06/25/2016 SITA CLARKE L Ot M25.461 EFFUSION, RIGHT KNEE 06/25/2016 KEYSHAWN CLARKEEN L Ot M25.561 PAIN IN RIGHT KNEE 07/02/2016 LALITHA SQUIRES DO Ot J44. 9 CHRONIC OBSTRUCTIVE PULMONARY DISEASE, U 07/02/2016 LALITHA SQUIRES DO Ot J45.909 UNSPECIFIED ASTHMA, UNCOMPLICATED 07/04/2016 CANDIE HERNANDEZ Ot V76.12 OTH SCREEN MAMMO-MALIGN [...] OF NOAM 07/04/2016 LALITHA SQUIRES DO Ot 278. 00 OBESITY, NOS 07/04/2016 LALITHA SQUIRES DO Ot 496 CHR AIRWAY OBSTRUCT NEC 07/04/2016 LALITHA SQUIRES DO Ot 278. 00 OBESITY, NOS 07/04/2016 LALITHA SQUIRES DO M Ot 493. 20 CHRONIC OBSTRUCTIVE ASTHMA, NOS 07/04/2016 MARVELTHEO ALAAN Ot Z12.31 ENCNTR SCREEN MAMMOGRAM FOR MALIGNANT NE 07/04/2016 LALITHA SQUIRES DO M Ot J44. 9 CHRONIC OBSTRUCTIVE PULMONARY DISEASE, U 07/04/2016 STAR SQUIRES DOSON M Ot J45.909 UNSPECIFIED ASTHMA, UNCOMPLICATED 07/04/2016 LALITHA SQUIRES DO M Ot J44. 9 CHRONIC OBSTRUCTIVE PULMONARY DISEASE, U 07/04/2016 STAR SQUIRES DOSON M Ot J45.909 UNSPECIFIED ASTHMA, UNCOMPLICATED 07/04/2016 STAR SQUIRES DOSON M Ot J44. 9 CHRONIC OBSTRUCTIVE PULMONARY DISEASE, U 07/04/2016 STAR SQUIRES DOSON M Ot J45.909 UNSPECIFIED ASTHMA, UNCOMPLICATED 07/05/2016 LALITHA SQUIRES DO M Ot J44. 9 CHRONIC OBSTRUCTIVE PULMONARY DISEASE, U 07/05/2016 STAR SQUIRES DOSON M Ot J45.909 UNSPECIFIED ASTHMA, UNCOMPLICATED 08/02/2016 STAR SQUIRES DOSON M Ot J44. 9 CHRONIC OBSTRUCTIVE PULMONARY DISEASE, U 08/02/2016 STAR SQUIRES DOSON M Ot J45.909 UNSPECIFIED ASTHMA, UNCOMPLICATED 08/29/2016 STAR SQUIRES DOSON M Ot J44. 9 CHRONIC OBSTRUCTIVE PULMONARY DISEASE, U 08/29/2016 STAR SQUIRES DOSON M Ot J45.909 UNSPECIFIED ASTHMA, UNCOMPLICATED 08/29/2016 STAR SQUIRES DOSON M Ot J44. 9 CHRONIC OBSTRUCTIVE PULMONARY DISEASE, U 08/29/2016 STAR SQUIRES DOSON M Ot J45.909 UNSPECIFIED ASTHMA, UNCOMPLICATED 08/31/2016 STAR SQUIRES DOSON M Ot J44. 9 CHRONIC OBSTRUCTIVE PULMONARY DISEASE, U 08/31/2016 STAR SQUIRES DOSON M Ot J45.909 UNSPECIFIED ASTHMA, UNCOMPLICATED 08/31/2016 STAR SQUIRES DOSON M Ot J44. 9 CHRONIC OBSTRUCTIVE PULMONARY DISEASE, U 08/31/2016 STAR SQUIRES DOSON M Ot J45.909 UNSPECIFIED ASTHMA, UNCOMPLICATED 09/05/2016 YVETTE ROSA Ot Z12.31 ENCNTR SCREEN MAMMOGRAM FOR MALIGNANT NE 09/10/2016 YVETTE ROSA L Ot Z12.31 ENCNTR SCREEN MAMMOGRAM FOR MALIGNANT NE 09/24/2016 KRISTIN HERBERT, OBDULIO Merchant Ot J44.0 CHRONIC OBSTRUCTIVE PULMON DISEASE W ACU 09/24/2016 KRISTIN HERBERT, OBDULIO Merchant Ot R05 COUGH 09/24/2016 KRISTIN HERBERT, OBDULIO Merchant Ot Z79.899 OTHER GROUP HOME (CURRENT) DRUG THERAPY 09/26/2016 KRISTIN HERBERT, OBDULIO Merchant Ot J44.0 CHRONIC OBSTRUCTIVE PULMON DISEASE W ACU 09/26/2016 KRISTIN HERBERT, OBDULIO Merchant Ot R05 COUGH 09/26/2016 KRISTIN HERBERT, OBDULIO Merchant Ot Z79.899 OTHER PHOTOGRAPHY COORDINATOR (CURRENT) DRUG THERAPY 09/28/2016 LALITHA SQUIRES DO Ot J44. 9 CHRONIC OBSTRUCTIVE PULMONARY DISEASE, U 09/28/2016 LALITHA SQUIRES DO Ot J45.909 UNSPECIFIED ASTHMA, UNCOMPLICATED 09/30/2016 OBDULIO FOSTER MD Ot J44.0 CHRONIC OBSTRUCTIVE PULMON DISEASE W ACU 09/30/2016 OBDULIO FOSTER MD Ot R05 COUGH 09/30/2016 OBDULIO FOSTER MD Ot Z79.899 OTHER GROUP HOME (CURRENT) DRUG THERAPY 10/02/2016 LALITHA SQUIRES DO Ot J44. 9 CHRONIC OBSTRUCTIVE PULMONARY DISEASE, U 10/02/2016 LALITHA SQUIRES DO Ot J45.909 UNSPECIFIED ASTHMA, UNCOMPLICATED 10/03/2016 LALITHA SQUIRES DO Ot J44. 9 CHRONIC OBSTRUCTIVE PULMONARY DISEASE, U 10/03/2016 LALITHA SQUIRES DO Ot J45.909 UNSPECIFIED ASTHMA, UNCOMPLICATED 10/10/2016 LALITHA SQUIRES DO Ot J44. 9 CHRONIC OBSTRUCTIVE PULMONARY DISEASE, U 10/10/2016 LALITHA SQUIRES DO Ot J45.909 UNSPECIFIED ASTHMA, UNCOMPLICATED 10/18/2016 LALITHA SQUIRES DO Ot J44. 9 CHRONIC OBSTRUCTIVE PULMONARY DISEASE, U 10/18/2016 LALITHA SQUIRES DO Ot J45.909 UNSPECIFIED ASTHMA, UNCOMPLICATED 10/26/2016 LALITHA SQUIRES DO M Ot J44. 9 CHRONIC OBSTRUCTIVE PULMONARY DISEASE, U 10/26/2016 STAR SQUIRES DOSON M Ot J45.909 UNSPECIFIED ASTHMA, UNCOMPLICATED 10/26/2016 STAR SQUIRES DOSON M Ot J44. 9 CHRONIC OBSTRUCTIVE PULMONARY DISEASE, U 10/26/2016 STAR SQUIRES DOSON M Ot J45.909 UNSPECIFIED ASTHMA, UNCOMPLICATED 10/26/2016 STAR SQUIRES DOSON M Ot J44. 9 CHRONIC OBSTRUCTIVE PULMONARY DISEASE, U 10/26/2016 TAVIA DOSTARLALITHA M Ot J45.909 UNSPECIFIED ASTHMA, UNCOMPLICATED 10/26/2016 STAR SQUIRES DOSON M Ot J44. 9 CHRONIC OBSTRUCTIVE PULMONARY DISEASE, U 10/26/2016 STAR SQUIRES DOSON M Ot J45.909 UNSPECIFIED ASTHMA, UNCOMPLICATED 10/26/2016 STAR SQUIRES DOSON M Ot J44. 9 CHRONIC OBSTRUCTIVE PULMONARY DISEASE, U 10/26/2016 STAR SQUIRES DOSON M Ot J45.909 UNSPECIFIED ASTHMA, UNCOMPLICATED 10/29/2016 STAR SQUIRES DOSON M Ot J44. 9 CHRONIC OBSTRUCTIVE PULMONARY DISEASE, U 10/29/2016 STAR SQUIRES DOSON M Ot J45.909 UNSPECIFIED ASTHMA, UNCOMPLICATED 10/31/2016 CANDIE HERNANDEZ Ot V76.12 OTH SCREEN MAMMO-MALIGN [...] OF NOAM 10/31/2016 LALITHA SQUIRES DO Ot 278. 00 OBESITY, NOS 10/31/2016 LALITHA SQUIRES DO M Ot 496 CHR AIRWAY OBSTRUCT NEC 10/31/2016 LALITHA SQUIRES DO Ot 278. 00 OBESITY, NOS 10/31/2016 LALITHA SQUIRES DO Ot 493. 20 CHRONIC OBSTRUCTIVE ASTHMA, NOS 10/31/2016 THEO GRIER APRN Ot Z12.31 ENCNTR SCREEN MAMMOGRAM FOR MALIGNANT NE 10/31/2016 YVETTE ROSA Ot Z12.31 ENCNTR SCREEN MAMMOGRAM FOR MALIGNANT NE 10/31/2016 LALITHA SQUIRES DO Ot J44. 9 CHRONIC OBSTRUCTIVE PULMONARY DISEASE, U 10/31/2016 LALITHA SQUIRES DO Ot J45.909 UNSPECIFIED ASTHMA, UNCOMPLICATED 10/31/2016 LALITHA SQUIRES DO Ot R05 COUGH 10/31/2016 LALITHA SQUIRES DO Ot R06. 00 DYSPNEA, UNSPECIFIED 11/27/2016 LALITHA SQUIRES DO Ot J44. 9 CHRONIC OBSTRUCTIVE PULMONARY DISEASE, U 11/27/2016 LALITHA SQUIRES DO Ot J45.909 UNSPECIFIED ASTHMA, UNCOMPLICATED 11/27/2016 LALITHA SQUIRES DO Ot R05 COUGH 11/27/2016 LALITHA SQUIRES DO Ot R06. 00 DYSPNEA, UNSPECIFIED 11/27/2016 LALITHA SQUIRES DO Ot J44. 9 CHRONIC OBSTRUCTIVE PULMONARY DISEASE, U 11/27/2016 LALITHA SQUIRES DO Ot J45.909 UNSPECIFIED ASTHMA, UNCOMPLICATED 11/27/2016 LALITHA QSUIRES DO M Ot R05 COUGH 11/27/2016 LALITHA SQUIRES DO Ot R06. 00 DYSPNEA, UNSPECIFIED 12/25/2016 LALITHA SQUIRES DO Ot J44. 9 CHRONIC OBSTRUCTIVE PULMONARY DISEASE, U 12/25/2016 LALITHA SQUIRES DO Ot J45.909 UNSPECIFIED ASTHMA, UNCOMPLICATED 12/25/2016 LALITHA SQUIRES DO Ot R05 COUGH 12/25/2016 LALITHA SQUIRES DO Ot R06. 00 DYSPNEA, UNSPECIFIED 12/25/2016 LALITHA SQUIRES DO Ot J44. 9 CHRONIC OBSTRUCTIVE PULMONARY DISEASE, U 12/25/2016 LALITHA SQUIRES DO Ot J45.909 UNSPECIFIED ASTHMA, UNCOMPLICATED 12/25/2016 LALITHA SQUIRES DO Ot R05 COUGH 12/25/2016 LALITHA SQUIRES DO Ot R06. 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 9 CHRONIC OBSTRUCTIVE PULMONARY DISEASE, U 01/22/2017 LALITHA SQUIRES DO M Ot J45.909 UNSPECIFIED ASTHMA, UNCOMPLICATED 01/22/2017 STAR SQUIRES DOSON M Ot R05 COUGH 01/22/2017 LALITHA SQUIRES DO M Ot R06. 00 DYSPNEA, UNSPECIFIED 01/22/2017 LALITHA SQUIRES DO M Ot J44. 9 CHRONIC OBSTRUCTIVE PULMONARY DISEASE, U 01/22/2017 LALITHA SQUIRES DO M Ot J45.909 UNSPECIFIED ASTHMA, UNCOMPLICATED 01/22/2017 LALITHA SQUIRES DO M Ot R05 COUGH 01/22/2017 LALITHA SQUIRES DO M Ot R06. 00 DYSPNEA, UNSPECIFIED 01/24/2017 LALITHA SQUIRES DO M Ot J44. 9 CHRONIC OBSTRUCTIVE PULMONARY DISEASE, U 01/24/2017 LALITHA SQUIRES DO Ot J45.909 UNSPECIFIED ASTHMA, UNCOMPLICATED 01/24/2017 LALITHA SQUIRES DO M Ot R05 COUGH 01/24/2017 LALITHA SQUIRES DO M Ot R06. 00 DYSPNEA, UNSPECIFIED 02/22/2017 LALITHA SQUIRES DO M Ot J44. 9 CHRONIC OBSTRUCTIVE PULMONARY DISEASE, U 02/22/2017 LALITHA SQUIRES DO Ot J45.909 UNSPECIFIED ASTHMA, UNCOMPLICATED 02/22/2017 LALITHA SQUIRES DO M Ot R05 COUGH 02/22/2017 LALITHA SQUIRES DO Ot R06. 00 DYSPNEA, UNSPECIFIED 02/22/2017 LALITHA SQUIRES DO M Ot J44. 9 CHRONIC OBSTRUCTIVE PULMONARY DISEASE, U 02/22/2017 LALITHA SQUIRES DO M Ot J45.909 UNSPECIFIED ASTHMA, UNCOMPLICATED 02/22/2017 LALITHA SQUIRES DO M Ot R05 COUGH 02/22/2017 LALITHA SQUIRES DO M Ot R06. 00 DYSPNEA, UNSPECIFIED 02/25/2017 LALITHA SQUIRES DO M Ot J44. 9 CHRONIC OBSTRUCTIVE PULMONARY DISEASE, U 02/25/2017 LALITHA SQUIRES DO M Ot J45.909 UNSPECIFIED ASTHMA, UNCOMPLICATED 02/25/2017 LALITHA SQUIRES DO M Ot R05 COUGH 02/25/2017 LALITHA SQUIRES DO M Ot R06. 00 DYSPNEA, UNSPECIFIED 03/29/2017 LALITHA SQUIRES DO Ot J44. 9 CHRONIC OBSTRUCTIVE PULMONARY DISEASE, U 03/29/2017 LALITHA SQUIRES DO M Ot J45.909 UNSPECIFIED ASTHMA, UNCOMPLICATED 03/29/2017 LALITHA SQUIRES DO M Ot R05 COUGH 03/29/2017 LALITHA SQUIRES DO M Ot R06. 00 DYSPNEA, UNSPECIFIED 03/29/2017 LALITHA SQUIRES DO M Ot J44. 9 CHRONIC OBSTRUCTIVE PULMONARY DISEASE, U 03/29/2017 LALITHA SQUIRES DO M Ot J45.909 UNSPECIFIED ASTHMA, UNCOMPLICATED 03/29/2017 LALITHA SQUIRES DO M Ot R05 COUGH 03/29/2017 LALITHA SQUIRES DO M Ot R06. 00 DYSPNEA, UNSPECIFIED 04/26/2017 LALITHA SQUIRES DO M Ot J44. 9 CHRONIC OBSTRUCTIVE PULMONARY DISEASE, U 04/26/2017 LALITHA SQUIRES DO M Ot J45.909 UNSPECIFIED ASTHMA, UNCOMPLICATED 04/26/2017 LALITHA SQUIRES DO M Ot R05 COUGH 04/26/2017 LALITHA SQUIRES DO M Ot R06. 00 DYSPNEA, UNSPECIFIED 04/26/2017 LALITHA SQUIRES DO M Ot J44. 9 CHRONIC OBSTRUCTIVE PULMONARY DISEASE, U 04/26/2017 LALITHA SQUIRES DO M Ot J45.909 UNSPECIFIED ASTHMA, UNCOMPLICATED 04/26/2017 STAR SQUIRES DOSON M Ot R05 COUGH 04/26/2017 LALITHA SQUIRES DO M Ot R06. 00 DYSPNEA, UNSPECIFIED 05/10/2017 LALITHA SQUIRES DO M Ot J44. 9 CHRONIC OBSTRUCTIVE PULMONARY DISEASE, U 05/10/2017 LALITHA SQUIRES DO M Ot J45.909 UNSPECIFIED ASTHMA, UNCOMPLICATED 05/10/2017 LALITHA SQUIRES DO M Ot R05 COUGH 05/10/2017 LALITHA SQUIRES DO M Ot R06. 00 DYSPNEA, UNSPECIFIED 05/23/2017 LALITHA SQUIRES DO M Ot J44. 9 CHRONIC OBSTRUCTIVE PULMONARY DISEASE, U 05/23/2017 LALITHA SQUIRES DO M Ot J45.909 UNSPECIFIED ASTHMA, UNCOMPLICATED 05/23/2017 STAR SQUIRES DOSON M Ot R05 COUGH 05/23/2017 LALITHA SQUIRES DO M Ot R06. 00 DYSPNEA, UNSPECIFIED 05/27/2017 LALITHA SQUIRES DO M Ot J44. 9 CHRONIC OBSTRUCTIVE PULMONARY DISEASE, U 05/27/2017 LALITHA SQUIRES DO M Ot J45.909 UNSPECIFIED ASTHMA, UNCOMPLICATED 05/27/2017 STAR SQUIRES DOSON M Ot R05 COUGH 05/27/2017 STAR SQUIRES DOSON M Ot R06. 00 DYSPNEA, UNSPECIFIED 05/27/2017 LALITHA SQUIRES DO M Ot J44. 9 CHRONIC OBSTRUCTIVE PULMONARY DISEASE, U 05/27/2017 LALTIHA SQUIRES DO M Ot J45.909 UNSPECIFIED ASTHMA, UNCOMPLICATED 05/27/2017 STAR SQUIRES DOSON M Ot R05 COUGH 05/27/2017 LALITHA SQUIRES DO M Ot R06. 00 DYSPNEA, UNSPECIFIED 05/27/2017 LALITHA SQUIRES DO M Ot J44. 9 CHRONIC OBSTRUCTIVE PULMONARY DISEASE, U 05/27/2017 LALITHA SQUIRES DO M Ot J45.909 UNSPECIFIED ASTHMA, UNCOMPLICATED 05/27/2017 STAR SQUIRES DOSON M Ot R05 COUGH 05/27/2017 TAVIA DOSTARLALITHA M Ot R06. 00 DYSPNEA, UNSPECIFIED 05/28/2017 STAR SQUIRES DOSON M Ot J44. 9 CHRONIC OBSTRUCTIVE PULMONARY DISEASE, U 05/28/2017 STAR SQUIRES DOSON M Ot J45.909 UNSPECIFIED ASTHMA, UNCOMPLICATED 05/28/2017 STAR SQUIRES DOSON M Ot R05 COUGH 05/28/2017 LALITHA SQUIRES DO M Ot R06. 00 DYSPNEA, UNSPECIFIED 06/05/2017 LALITHA SQUIRES DO M Ot J44. 9 CHRONIC OBSTRUCTIVE PULMONARY DISEASE, U 06/05/2017 LALITHA SQUIRES DO M Ot J45.909 UNSPECIFIED ASTHMA, UNCOMPLICATED 06/05/2017 LALITHA SQUIRES DO M Ot R05 COUGH 06/05/2017 LALITHA SQUIRES DO M Ot R06. 00 DYSPNEA, UNSPECIFIED 06/24/2017 LALITHA SQUIRES DO M Ot J44. 9 CHRONIC OBSTRUCTIVE PULMONARY DISEASE, U 06/24/2017 LALITHA SQUIRES DO M Ot J45.909 UNSPECIFIED ASTHMA, UNCOMPLICATED 06/24/2017 LALITHA SQUIRES DO M Ot R05 COUGH 06/24/2017 LALITHA SQUIRES DO M Ot R06. 00 DYSPNEA, UNSPECIFIED 06/24/2017 LALITHA SQUIRES DO M Ot J44. 9 CHRONIC OBSTRUCTIVE PULMONARY DISEASE, U 06/24/2017 LALITHA SQUIRES DO M Ot J45.909 UNSPECIFIED ASTHMA, UNCOMPLICATED 06/24/2017 STAR SQUIRES DOSON M Ot R05 COUGH 06/24/2017 STAR SQUIRES DOSON M Ot R06. 00 DYSPNEA, UNSPECIFIED 07/22/2017 LALITHA SQUIRES DO M Ot J44. 9 CHRONIC OBSTRUCTIVE PULMONARY DISEASE, U 07/22/2017 LALITHA SQUIRES DO M Ot J45.909 UNSPECIFIED ASTHMA, UNCOMPLICATED 07/22/2017 STAR SQUIRES DOSON M Ot R05 COUGH 07/22/2017 LALITHA SQUIRES DO M Ot R06. 00 DYSPNEA, UNSPECIFIED 07/22/2017 LALITHA SQUIRES DO M Ot J44. 9 CHRONIC OBSTRUCTIVE PULMONARY DISEASE, U 07/22/2017 STAR SQUIRES DOSON M Ot J45.909 UNSPECIFIED ASTHMA, UNCOMPLICATED 07/22/2017 STAR SQUIRES DOSON M Ot R05 COUGH 07/22/2017 TAVIA DOSTARLALITHA M Ot R06. 00 DYSPNEA, UNSPECIFIED 08/03/2017 STAR SQUIRES DOSON M Ot J44. 9 CHRONIC OBSTRUCTIVE PULMONARY DISEASE, U 08/03/2017 STAR SQUIRES DOSON M Ot J45.909 UNSPECIFIED ASTHMA, UNCOMPLICATED 08/03/2017 TAVIA DOSTARLALITHA M Ot R05 COUGH 08/03/2017 TAVIA DO, LALITHA M Ot R06. 00 DYSPNEA, UNSPECIFIED 08/09/2017 TAVIA DOSTARLALITHA M Ot J44. 9 CHRONIC OBSTRUCTIVE PULMONARY DISEASE, U 08/09/2017 TAVIA DOSTARLALITHA M Ot J45.909 UNSPECIFIED ASTHMA, UNCOMPLICATED 08/09/2017 TAVIA DOSTARLALITHA M Ot R05 COUGH 08/09/2017 TAVIA DOSTARLALITHA M Ot R06. 00 DYSPNEA, UNSPECIFIED 08/19/2017 TAVIA DOSTARLALITHA M Ot J44. 9 CHRONIC OBSTRUCTIVE PULMONARY DISEASE, U 08/19/2017 TAVIA DOSTARLALITHA M Ot J45.909 UNSPECIFIED ASTHMA, UNCOMPLICATED 08/19/2017 TAVIA DOSTARLALITHA M Ot R05 COUGH 08/19/2017 TAVIA DOSTARLALITHA M Ot R06. 00 DYSPNEA, UNSPECIFIED 08/19/2017 TAVIA DOSTARLALITHA M Ot J44. 9 CHRONIC OBSTRUCTIVE PULMONARY DISEASE, U 08/19/2017 TAVIA DOSTARLALITHA M Ot J45.909 UNSPECIFIED ASTHMA, UNCOMPLICATED 08/19/2017 TAVIA DOSTARLALITHA M Ot R05 COUGH 08/19/2017 TAVIA DOSTARLALITHA M Ot R06. 00 DYSPNEA, UNSPECIFIED 08/19/2017 TAVIA DOSTARLALITHA M Ot J44. 9 CHRONIC OBSTRUCTIVE PULMONARY DISEASE, U 08/19/2017 TAVIA DOSTARLALITHA M Ot J45.909 UNSPECIFIED ASTHMA, UNCOMPLICATED 08/19/2017 TAVIA DOSTARLALITHA M Ot R05 COUGH 08/19/2017 TAVIA DOSTARLALITHA M Ot R06. 00 DYSPNEA, UNSPECIFIED 08/19/2017 TAVIA DOSTARLALITHA M Ot J44. 9 CHRONIC OBSTRUCTIVE PULMONARY DISEASE, U 08/19/2017 TAVIA DOSTARLALITHA M Ot J45.909 UNSPECIFIED ASTHMA, UNCOMPLICATED 08/19/2017 TAVIA DOSTARLALITHA M Ot R05 COUGH 08/19/2017 TAVIA DO LALITHA M Ot R06. 00 DYSPNEA, UNSPECIFIED 08/20/2017 TAVIA DOSTARLALITHA M Ot J44. 9 CHRONIC OBSTRUCTIVE PULMONARY DISEASE, U 08/20/2017 TAVIA DOSTARLALITHA M Ot J45.909 UNSPECIFIED ASTHMA, UNCOMPLICATED 08/20/2017 TAVIA DOSTARLALITHA M Ot R05 COUGH 08/20/2017 TAVIA DOSTARLALITHA M Ot R06. 00 DYSPNEA, UNSPECIFIED 09/17/2017 TAVIA DOSTARLALITHA M Ot J44. 9 CHRONIC OBSTRUCTIVE PULMONARY DISEASE, U 09/17/2017 TAVIA DOSTARLALITHA M Ot J45.909 UNSPECIFIED ASTHMA, UNCOMPLICATED 09/17/2017 ATVIA DOSTARLALITHA M Ot R05 COUGH 09/17/2017 TAVIA DOSTARLALITHA M Ot R06. 00 DYSPNEA, UNSPECIFIED 09/17/2017 TAVIA DOSTARLALITHA M Ot J44. 9 CHRONIC OBSTRUCTIVE PULMONARY DISEASE, U 09/17/2017 TAVIA DOSTARLALITHA M Ot J45.909 UNSPECIFIED ASTHMA, UNCOMPLICATED 09/17/2017 TAVIA DOSTARLALITHA M Ot R05 COUGH 09/17/2017 TAVIA DOSTARLALITHA M Ot R06. 00 DYSPNEA, UNSPECIFIED 09/17/2017 TAVIA DOSTARLALITHA M Ot J44. 9 CHRONIC OBSTRUCTIVE PULMONARY DISEASE, U 09/17/2017 TAVIA DOSTARLALITHA M Ot J45.909 UNSPECIFIED ASTHMA, UNCOMPLICATED 09/17/2017 TAVIA DOSTARLALITHA M Ot R05 COUGH 09/17/2017 TAVIA DOSTARLALITHA M Ot R06. 00 DYSPNEA, UNSPECIFIED 10/15/2017 STAR SQUIRES DOSON M Ot J44. 9 CHRONIC OBSTRUCTIVE PULMONARY DISEASE, U 10/15/2017 TAVIA DOSTARLALITHA M Ot J45.909 UNSPECIFIED ASTHMA, UNCOMPLICATED 10/15/2017 TAVIA DOSTARLALITHA M Ot R05 COUGH 10/15/2017 TAVIA DOSTARLALITHA M Ot R06. 00 DYSPNEA, UNSPECIFIED 10/15/2017 TAVIA DOSTARLALITHA M Ot J44. 9 CHRONIC OBSTRUCTIVE PULMONARY DISEASE, U 10/15/2017 TAVIA DOSTARLALITHA M Ot J45.909 UNSPECIFIED ASTHMA, UNCOMPLICATED 10/15/2017 TAVIA DOSTARLALITHA M Ot R05 COUGH 10/15/2017 TAVIA DOSTARLALITHA M Ot R06. 00 DYSPNEA, UNSPECIFIED 10/20/2017 KERVIN LIAO DO Ot F32.9 MAJOR DEPRESSIVE DISORDER, SINGLE EPISOD 10/20/2017 KERVIN LIAO DO Ot J44.9 CHRONIC OBSTRUCTIVE PULMONARY DISEASE, U 10/20/2017 KERVIN LIAO DO Ot K21.9 GASTRO-ESOPHAGEAL REFLUX DISEASE WITHOUT 10/20/2017 KERVIN LIAO DO Ot M19.90 UNSPECIFIED OSTEOARTHRITIS, UNSPECIFIED 10/20/2017 KERVIN LIAO DO Ot M79.621 PAIN IN RIGHT UPPER ARM 10/20/2017 KERVIN LIAO DO Ot Z90.49 ACQUIRED ABSENCE OF OTHER SPECIFIED PART 10/20/2017 KERVIN LIAO DO Ot Z90.710 ACQUIRED ABSENCE OF BOTH CERVIX AND UTER 10/20/2017 KERVIN LIAO DO Ot Z98.890 OTHER SPECIFIED POSTPROCEDURAL STATES 11/12/2017 LALITHA SQUIRES DO Ot J44. 9 CHRONIC OBSTRUCTIVE PULMONARY DISEASE, U 11/12/2017 LALITHA SQUIRES DO Ot J45.909 UNSPECIFIED ASTHMA, UNCOMPLICATED 11/12/2017 LALITHA SQUIRES DO Ot R05 COUGH 11/12/2017 LALITHA SQUIRES DO Ot R06. 00 DYSPNEA, UNSPECIFIED 11/13/2017 LALITHA SQUIRES DO Ot J44. 9 CHRONIC OBSTRUCTIVE PULMONARY DISEASE, U 11/13/2017 LALITHA SQUIRES DO Ot J45.909 UNSPECIFIED ASTHMA, UNCOMPLICATED 11/13/2017 LALITHA SQUIRES DO Ot R05 COUGH 11/13/2017 LALITHA SQUIRES DO Ot R06. 00 DYSPNEA, UNSPECIFIED 11/17/2017 LALITHA SQUIRES DO Ot J44. 9 CHRONIC OBSTRUCTIVE PULMONARY DISEASE, U 11/17/2017 LALITHA SQUIRES DO Ot J45.909 UNSPECIFIED ASTHMA, UNCOMPLICATED 11/17/2017 LALITHA SQUIRES DO Ot R05 COUGH 11/17/2017 LALITHA SQUIRES DO Ot R06. 00 DYSPNEA, UNSPECIFIED 11/18/2017 LALITHA SQUIRES DO Ot J44. 9 CHRONIC OBSTRUCTIVE PULMONARY DISEASE, U 11/18/2017 LALITHA SQUIRES DO Ot J45.909 UNSPECIFIED ASTHMA, UNCOMPLICATED 11/18/2017 LALITHA SQUIRES DO M Ot R05 COUGH 11/18/2017 LALITHA SQUIRES DO Ot R06. 00 DYSPNEA, UNSPECIFIED 11/29/2017 LALITHA SQUIRES DO Ot J44. 9 CHRONIC OBSTRUCTIVE PULMONARY DISEASE, U 11/29/2017 LALITHA SQUIRES DO Ot J45.909 UNSPECIFIED ASTHMA, UNCOMPLICATED 11/29/2017 TAVIA DO, LALITHA M Ot R05 COUGH 11/29/2017 TAVIA DOSTARLALITHA M Ot R06. 00 DYSPNEA, UNSPECIFIED 12/11/2017 TAVIA DOSTARLALITHA M Ot J44. 9 CHRONIC OBSTRUCTIVE PULMONARY DISEASE, U 12/11/2017 TAVIA DOSTARLALITHA M Ot J45.909 UNSPECIFIED ASTHMA, UNCOMPLICATED 12/11/2017 TAVIA DOSTARLALITHA M Ot R05 COUGH 12/11/2017 TAVIA DOSTARLALITAH M Ot R06. 00 DYSPNEA, UNSPECIFIED 12/11/2017 TAVIA DOSTARLALITHA M Ot J44. 9 CHRONIC OBSTRUCTIVE PULMONARY DISEASE, U 12/11/2017 TAVIA DOSTARLALITHA M Ot J45.909 UNSPECIFIED ASTHMA, UNCOMPLICATED 12/11/2017 TAVIA DOSTARLALITHA M Ot R05 COUGH 12/11/2017 TAVIA DOSTARLALITHA M Ot R06. 00 DYSPNEA, UNSPECIFIED 12/11/2017 TAVIA DOSTARLALITHA M Ot J44. 9 CHRONIC OBSTRUCTIVE PULMONARY DISEASE, U 12/11/2017 TAVIA DOSTARLALITHA M Ot J45.909 UNSPECIFIED ASTHMA, UNCOMPLICATED 12/11/2017 TAVIA DOSTARLALITHA M Ot R05 COUGH 12/11/2017 TAVIA DOSTARLALITHA M Ot R06. 00 DYSPNEA, UNSPECIFIED 12/12/2017 TAVIA DOSTARLALITHA M Ot J44. 9 CHRONIC OBSTRUCTIVE PULMONARY DISEASE, U 12/12/2017 TAVIA DOSTARLALITHA M Ot J45.909 UNSPECIFIED ASTHMA, UNCOMPLICATED 12/12/2017 TAVIA DOSTARLALITHA M Ot R05 COUGH 12/12/2017 TAVIA DOSTARLALITHA M Ot R06. 00 DYSPNEA, UNSPECIFIED 01/08/2018 TAVIA DOSTARLALITHA M Ot J44. 9 CHRONIC OBSTRUCTIVE PULMONARY DISEASE, U 01/08/2018 TAVIA DOSTARLALITHA M Ot J45.909 UNSPECIFIED ASTHMA, UNCOMPLICATED 01/08/2018 TAVIA DO LALITHA M Ot R05 COUGH 01/08/2018 TAVIA DO LALITHA M Ot R06. 00 DYSPNEA, UNSPECIFIED 01/16/2018 TAVIA DOSTARLALITHA M Ot J44. 9 CHRONIC OBSTRUCTIVE PULMONARY DISEASE, U 01/16/2018 TAVIA DO, LALITHA M Ot J45.909 UNSPECIFIED ASTHMA, UNCOMPLICATED 01/16/2018 TAVIA DO, LALITHA M Ot R05 COUGH 01/16/2018 TAVIA DOSTARLALITHA M Ot R06. 00 DYSPNEA, UNSPECIFIED 02/05/2018 TAVIA DOSTARLALITHA M Ot J44. 9 CHRONIC OBSTRUCTIVE PULMONARY DISEASE, U 02/05/2018 TAVIA DOSTARLALITHA M Ot J45.909 UNSPECIFIED ASTHMA, UNCOMPLICATED 02/05/2018 TAVIA DOSTARLALITHA M Ot R05 COUGH 02/05/2018 TAVIA DOSTARLALITHA M Ot R06. 00 DYSPNEA, UNSPECIFIED 02/05/2018 TAVIA DOSTARLALITHA M Ot J44. 9 CHRONIC OBSTRUCTIVE PULMONARY DISEASE, U 02/05/2018 TAVIA DOSTARLALITHA M Ot J45.909 UNSPECIFIED ASTHMA, UNCOMPLICATED 02/05/2018 TAVIA DOSTARLALITHA M Ot R05 COUGH 02/05/2018 TAVIA DOSTARLALITHA M Ot R06. 00 DYSPNEA, UNSPECIFIED 03/05/2018 STAR SQUIRES DOSON M Ot J44. 9 CHRONIC OBSTRUCTIVE PULMONARY DISEASE, U 03/05/2018 TAVIA DOSTARLALITHA M Ot J45.909 UNSPECIFIED ASTHMA, UNCOMPLICATED 03/05/2018 TAVIA DOSTARLALITHA M Ot R05 COUGH 03/05/2018 TAVIA DOSTARLALITHA M Ot R06. 00 DYSPNEA, UNSPECIFIED 03/05/2018 TAVIA DOSTARLALITHA M Ot J44. 9 CHRONIC OBSTRUCTIVE PULMONARY DISEASE, U 03/05/2018 TAVIA DOSTARLALITHA M Ot J45.909 UNSPECIFIED ASTHMA, UNCOMPLICATED 03/05/2018 TAVIA DOSTARLALITHA M Ot R05 COUGH 03/05/2018 TAVIA DOSTARLALITHA M Ot R06. 00 DYSPNEA, UNSPECIFIED 03/05/2018 TAVIA DOSTARLALITHA M Ot J44. 9 CHRONIC OBSTRUCTIVE PULMONARY DISEASE, U 03/05/2018 TAVIA DOSTARLALITHA M Ot J45.909 UNSPECIFIED ASTHMA, UNCOMPLICATED 03/05/2018 TAVIA DOSTARLALITHA M Ot R05 COUGH 03/05/2018 TAVIA DOSTARLALITHA M Ot R06. 00 DYSPNEA, UNSPECIFIED 03/11/2018 TAVIA DOSTARLALITHA M Ot J44. 9 CHRONIC OBSTRUCTIVE PULMONARY DISEASE, U 03/11/2018 TAVIA DOSTARLALITHA M Ot J45.909 UNSPECIFIED ASTHMA, UNCOMPLICATED 03/11/2018 TAVIA DOSTARLALITHA M Ot R05 COUGH 03/11/2018 TAVIA DOSTARLALITHA M Ot R06. 00 DYSPNEA, UNSPECIFIED 03/12/2018 TAVIA DOSTARLALITHA M Ot J44. 9 CHRONIC OBSTRUCTIVE PULMONARY DISEASE, U 03/12/2018 TAVIA DOSTARLALITHA M Ot J45.909 UNSPECIFIED ASTHMA, UNCOMPLICATED 03/12/2018 TAVIA DOSTARLALITHA M Ot R05 COUGH 03/12/2018 TAVIA DOSTARLALITHA M Ot R06. 00 DYSPNEA, UNSPECIFIED 03/17/2018 TAVIA DOSTARLALITHA M Ot J44. 9 CHRONIC OBSTRUCTIVE PULMONARY DISEASE, U 03/17/2018 TAVIA DOSTARLALITHA M Ot J45.909 UNSPECIFIED ASTHMA, UNCOMPLICATED 03/17/2018 TAVIA DOSTARLALITHA M Ot R05 COUGH 03/17/2018 TAVIA DOSTARLALITHA M Ot R06. 00 DYSPNEA, UNSPECIFIED 04/02/2018 TAVIA DOSTARLALITHA M Ot J44. 9 CHRONIC OBSTRUCTIVE PULMONARY DISEASE, U 04/02/2018 TAVIA DOSTARLALITHA M Ot J45.909 UNSPECIFIED ASTHMA, UNCOMPLICATED 04/02/2018 TAVIA DOSTARLALITHA M Ot R05 COUGH 04/02/2018 TAVIA DOSTARLALITHA M Ot R06. 00 DYSPNEA, UNSPECIFIED 04/02/2018 TAVIA DOSTARLALITHA M Ot J44. 9 CHRONIC OBSTRUCTIVE PULMONARY DISEASE, U 04/02/2018 TAVIA DOSTARLALITHA M Ot J45.909 UNSPECIFIED ASTHMA, UNCOMPLICATED 04/02/2018 TAVIA DOSTARLALITHA M Ot R05 COUGH 04/02/2018 TAVIA DO LALITHA M Ot R06. 00 DYSPNEA, UNSPECIFIED 04/03/2018 TAVIA DOSTARLALITHA M Ot J44. 9 CHRONIC OBSTRUCTIVE PULMONARY DISEASE, U 04/03/2018 TAVIA DOSTARLALITHA M Ot J45.909 UNSPECIFIED ASTHMA, UNCOMPLICATED 04/03/2018 TAVIA DO LALITHA M Ot R05 COUGH 04/03/2018 TAVIA DO LALITHA M Ot R06. 00 DYSPNEA, UNSPECIFIED 04/03/2018 CANDIE HERNANDEZ Ot V76.12 OT SCREEN MAMMO-MALIGN NEOPLASM OF YOLY 04/03/2018 THEO GRIER APRN Ot V76.12 OTH SCREEN MAMMO-MALIGN NEOPLASM OF YOLY 04/03/2018 TARIQ TATE CFNP Ot 496 CHR AIRWAY OBSTRUCT NEC 04/03/2018 TARIQ TATE R CFNP Ot 786.05 SHORTNESS OF BREATH 04/03/2018 TARIQ TATE CFNP Ot 573.8 LIVER DISORDERS NEC 04/03/2018 TATETARIQ CHRISTINE R CFNP Ot 786.05 SHORTNESS OF BREATH 04/03/2018 TATETARIQ CHRISTINE R CFNP Ot 786.2 COUGH 04/03/2018 TARIQ TATE CFNP Ot 793.19 OTHER NONSPECIFIC ABNORMAL FINDING OF NOAM 04/03/2018 LALITHA SQUIRES DO Ot 278. 00 OBESITY, NOS 04/03/2018 LALITHA SQUIRES DO Ot 496 CHR AIRWAY OBSTRUCT NEC 04/03/2018 LALITHA SQUIRES DO Ot 278. 00 OBESITY, NOS 04/03/2018 LALITHA SQUIRES DO Ot 493. 20 CHRONIC OBSTRUCTIVE ASTHMA, NOS 04/03/2018 THEO GRIER APRN Ot Z12.31 ENCNTR SCREEN MAMMOGRAM FOR MALIGNANT NE 04/03/2018 YVETTE ROSA Ot Z12.31 ENCNTR SCREEN MAMMOGRAM FOR MALIGNANT NE 04/03/2018 LALITHA SQUIRES DO Ot J44. 9 CHRONIC OBSTRUCTIVE PULMONARY DISEASE, U 04/03/2018 LALITHA SQUIRES DO Ot R05 COUGH 04/03/2018 LALITHA SQUIRES DO Ot R06. 00 DYSPNEA, UNSPECIFIED 04/30/2018 LALITHA SQUIRES DO Ot J44. 9 CHRONIC OBSTRUCTIVE PULMONARY DISEASE, U 04/30/2018 LALITHA SQUIRES DO Ot R05 COUGH 04/30/2018 LALITHA SQUIRES DO Ot R06. 00 DYSPNEA, UNSPECIFIED 04/30/2018 LALITHA SQUIRES DO Ot J44. 9 CHRONIC OBSTRUCTIVE PULMONARY DISEASE, U 04/30/2018 LALITHA SQUIRES DO Ot R05 COUGH 04/30/2018 LALITHA SQUIRES DO Ot R06. 00 DYSPNEA, UNSPECIFIED 04/30/2018 LALITHA SQUIRES DO Ot J44. 9 CHRONIC OBSTRUCTIVE PULMONARY DISEASE, U 04/30/2018 TAVIA DO, LALITHA M Ot R05 COUGH 04/30/2018 TAVIA DO, LALITHA M Ot R06. 00 DYSPNEA, UNSPECIFIED 2018 TAVIA DOSTARLALITHA M Ot J44. 9 CHRONIC OBSTRUCTIVE PULMONARY DISEASE, U 2018 TAVIA DO, LALITHA M Ot R05 COUGH 2018 TAVIA DO, LALITHA M Ot R06. 00 DYSPNEA, UNSPECIFIED 2018 TAVIA DOSTARLALITHA M Ot J44. 9 CHRONIC OBSTRUCTIVE PULMONARY DISEASE, U 2018 TAVIA DO, LALITHA M Ot R05 COUGH 2018 TAVIA DO LALITHA M Ot R06. 00 DYSPNEA, UNSPECIFIED 2018 TAVIA DOSTARLALITHA M Ot J44. 9 CHRONIC OBSTRUCTIVE PULMONARY DISEASE, U 2018 TAVIA DO, LALITHA M Ot R05 COUGH 2018 TAVIA DO LALITHA M Ot R06. 00 DYSPNEA, UNSPECIFIED 06/03/2018 TAVIA DOSTARLALITHA M Ot J44. 9 CHRONIC OBSTRUCTIVE PULMONARY DISEASE, U 06/03/2018 TAVIA DO LALITHA M Ot J45.909 UNSPECIFIED ASTHMA, UNCOMPLICATED 06/03/2018 TAVIA DO, LALITHA M Ot R05 COUGH 06/03/2018 TAVIA DO LALITHA M Ot R06. 00 DYSPNEA, UNSPECIFIED 06/30/2018 TAVIA DOSTARLALITHA M Ot J44. 9 CHRONIC OBSTRUCTIVE PULMONARY DISEASE, U 06/30/2018 TAVIA DO LALITHA M Ot R05 COUGH 06/30/2018 TAVIA DOSTARLALITHA M Ot R06. 00 DYSPNEA, UNSPECIFIED 07/01/2018 TAVIA DOSTARLALITHA M Ot J44. 9 CHRONIC OBSTRUCTIVE PULMONARY DISEASE, U 07/01/2018 TAVIA DO LALITHA M Ot R05 COUGH 07/01/2018 TAVIA DO LALITHA M Ot R06. 00 DYSPNEA, UNSPECIFIED 07/29/2018 TAVIA DOSTARLALITHA M Ot J44. 9 CHRONIC OBSTRUCTIVE PULMONARY DISEASE, U 07/29/2018 TAVIA DO, LALITHA M Ot R05 COUGH 07/29/2018 TAVIA DO, LALITHA M Ot R06. 00 DYSPNEA, UNSPECIFIED 08/03/2018 TAVIA DOSTARLALITHA M Ot J45.909 UNSPECIFIED ASTHMA, UNCOMPLICATED 08/03/2018 TAVIA DO, LALITHA M Ot R05 COUGH 08/03/2018 TAVIA DOSTARLALITHA M Ot R06. 00 DYSPNEA, UNSPECIFIED 08/06/2018 STAR SQUIRES DOSON M Ot J45.909 UNSPECIFIED ASTHMA, UNCOMPLICATED 08/06/2018 TAVIA DOSTARLALITHA M Ot R05 COUGH 08/06/2018 TAVIA DOSTARLALITHA M Ot R06. 00 DYSPNEA, UNSPECIFIED 08/27/2018 TAVIA DOSTARLALITHA M Ot J44. 9 CHRONIC OBSTRUCTIVE PULMONARY DISEASE, U 08/27/2018 TAVIA DO, LALITHA M Ot R05 COUGH 08/27/2018 TAVIA DOSTARALLITHA M Ot R06. 00 DYSPNEA, UNSPECIFIED 08/27/2018 STAR SQUIRES DOSON M Ot J44. 9 CHRONIC OBSTRUCTIVE PULMONARY DISEASE, U 08/27/2018 TAVIA DOSTARLALITHA M Ot R05 COUGH 08/27/2018 TAVIA DOSTARLALITHA M Ot R06. 00 DYSPNEA, UNSPECIFIED 08/27/2018 STAR SQUIRES DOSON M Ot J44. 9 CHRONIC OBSTRUCTIVE PULMONARY DISEASE, U 08/27/2018 TAVIA DOSTARLALITHA M Ot R05 COUGH 08/27/2018 TAVIA DOSTARLALITHA M Ot R06. 00 DYSPNEA, UNSPECIFIED 08/28/2018 STAR SQUIRES DOSON M Ot J44. 9 CHRONIC OBSTRUCTIVE PULMONARY DISEASE, U 08/28/2018 TAVIA DOSTARLALITHA M Ot R05 COUGH 08/28/2018 TAVIA DOSTARLALITHA M Ot R06. 00 DYSPNEA, UNSPECIFIED 09/04/2018 WERO BARKLEY APRN Ot Z12.31 ENCNTR SCREEN MAMMOGRAM FOR MALIGNANT NE 09/24/2018 STAR SQUIRES DOSON M Ot J44. 9 CHRONIC OBSTRUCTIVE PULMONARY DISEASE, U 09/24/2018 TAVIA DOSTARLALITHA M Ot J45.909 UNSPECIFIED ASTHMA, UNCOMPLICATED 09/24/2018 TAVIA DOSTARLALITHA M Ot R05 COUGH 09/24/2018 TAVIA DOSTARLALITHA M Ot R06. 00 DYSPNEA, UNSPECIFIED 09/24/2018 TAVIA DOSTARLALITHA M Ot J44. 9 CHRONIC OBSTRUCTIVE PULMONARY DISEASE, U 09/24/2018 TAVIA DOSTARLALITHA M Ot J45.909 UNSPECIFIED ASTHMA, UNCOMPLICATED 09/24/2018 TAVIA DO, LALITHA M Ot R05 COUGH 09/24/2018 TAVIA DO, LALITHA M Ot R06. 00 DYSPNEA, UNSPECIFIED 10/13/2018 TAVIA DO, LALITHA M Ot J44. 9 CHRONIC OBSTRUCTIVE PULMONARY DISEASE, U 10/13/2018 TAVIA DO, LALITHA M Ot J45.909 UNSPECIFIED ASTHMA, UNCOMPLICATED 10/13/2018 TAVIA DO, LALITHA M Ot R05 COUGH 10/13/2018 TAVIA DO, LALITHA M Ot R06. 00 DYSPNEA, UNSPECIFIED 10/13/2018 TAVIA DO, LALITHA M Ot J44. 9 CHRONIC OBSTRUCTIVE PULMONARY DISEASE, U 10/13/2018 TAVIA DO, LALITHA M Ot J45.909 UNSPECIFIED ASTHMA, UNCOMPLICATED 10/13/2018 TAVIA DO, LALITHA M Ot R05 COUGH 10/13/2018 TAVIA DO, LALITHA M Ot R06. 00 DYSPNEA, UNSPECIFIED 10/22/2018 TAVIA DO, LALITHA M Ot J44. 9 CHRONIC OBSTRUCTIVE PULMONARY DISEASE, U 10/22/2018 TAVIA DO, LALITHA M Ot R05 COUGH 10/22/2018 TAVIA DO, LALITHA M Ot R06. 00 DYSPNEA, UNSPECIFIED 10/22/2018 WERO BARKLEY DERMATOLOGIST Ot Z12.31 ENCNTR SCREEN MAMMOGRAM FOR MALIGNANT NE 11/11/2018 TAVIA DOSTARLALITHA M Ot J44. 9 CHRONIC OBSTRUCTIVE PULMONARY DISEASE, U 11/11/2018 TAVIA DO, LALITHA M Ot R05 COUGH 11/11/2018 TAVIA DO, LALITHA M Ot R06. 00 DYSPNEA, UNSPECIFIED 11/11/2018 WERO BARKLEY DERMATOLOGIST Ot Z12.31 ENCNTR SCREEN MAMMOGRAM FOR MALIGNANT NE 11/11/2018 TAVIA DO, LALITHA M Ot J44. 9 CHRONIC OBSTRUCTIVE PULMONARY DISEASE, U 11/11/2018 TAVIA DO, LALITHA M Ot R05 COUGH 11/11/2018 TAVIA DO, LALITHA M Ot R06. 00 DYSPNEA, UNSPECIFIED 11/11/2018 WERO BARKLEY DERMATOLOGIST Ot Z12.31 ENCNTR SCREEN MAMMOGRAM FOR MALIGNANT NE 11/11/2018 NILA LEE APRN Ot F32 .9 MAJOR DEPRESSIVE DISORDER, SINGLE EPISOD 11/11/2018 NILA LEE APRN Ot J44 .9 CHRONIC OBSTRUCTIVE PULMONARY DISEASE, U 11/11/2018 NILA LEE APRN Ot K21 .9 GASTRO-ESOPHAGEAL REFLUX DISEASE WITHOUT 11/11/2018 NILA LEE APRN Ot R40.2142 COMA SCALE, EYES OPEN, SPONTANEOUS, EMR 11/11/2018 NILA LEE APRN Ot R40.2252 COMA SCALE, BEST VERBAL RESPONSE, ORIENT 11/11/2018 NILA LEE APRN Ot R40.2362 COMA SCALE, BEST MOTOR RESPONSE, OBEYS C 11/11/2018 NILA LEE APRN Ot S50.02XA CONTUSION OF LEFT ELBOW, INITIAL ENCOUNT 11/11/2018 NILA LEE APRN Ot S80.01XA CONTUSION OF RIGHT KNEE, INITIAL ENCOUNT 11/11/2018 NILA LEE APRN Ot S80.11XA CONTUSION OF RIGHT LOWER LEG, INITIAL EN 11/11/2018 NILA LEE APRN Ot W10.8XXA FALL (ON) (FROM) OTHER STAIRS AND STEPS, 11/11/2018 NILA LEE APRN Ot Y92.[address] OF OCCURRENCE O 11/11/2018 NILA LEE APRN Ot Z79.51 PHOTOGRAPHY 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 (CURRENT) USE OF INHALED STERO 11/11/2018 NILA LEE APRN Ot Z88 .2 ALLERGY STATUS TO SULFONAMIDES STATUS 11/11/2018 NILA LEE APRN Ot Z90.49 ACQUIRED ABSENCE OF OTHER SPECIFIED PART 11/11/2018 NILA LEE APRN Ot Z90.710 ACQUIRED ABSENCE OF BOTH CERVIX AND UTER 11/11/2018 NILA LEE APRN Ot Z98.890 OTHER SPECIFIED POSTPROCEDURAL STATES 11/13/2018 NILA LEE APRN Ot F32 .9 MAJOR DEPRESSIVE DISORDER, SINGLE EPISOD 11/13/2018 NILA LEE APRN, Ot J44 .9 CHRONIC OBSTRUCTIVE PULMONARY DISEASE, U 11/13/2018 NILA LEE APRN Ot K21 .9 GASTRO-ESOPHAGEAL REFLUX DISEASE WITHOUT 11/13/2018 NILA LEE APRN Ot R40.2142 COMA SCALE, EYES OPEN, SPONTANEOUS, EMR 11/13/2018 NILA LEE APRN Ot R40.2252 COMA SCALE, BEST VERBAL RESPONSE, ORIENT 11/13/2018 NILA LEE APRN Ot R40.2362 COMA SCALE, BEST MOTOR RESPONSE, OBEYS C 11/13/2018 NILA LEE APRN Ot S50.02XA CONTUSION OF LEFT ELBOW, INITIAL ENCOUNT 11/13/2018 NILA LEE APRN Ot S80.01XA CONTUSION OF RIGHT KNEE, INITIAL ENCOUNT 11/13/2018 NILA LEE APRN Ot S80.11XA CONTUSION OF RIGHT LOWER LEG, INITIAL EN 11/13/2018 NILA LEE APRN Ot W10.8XXA FALL (ON) (FROM) OTHER STAIRS AND STEPS, 11/13/2018 NILA LEE APRN Ot Y92.[address] OF OCCURRENCE O 11/13/2018 NILA LEE APRN Ot Z79.51 GROUP HOME (CURRENT) USE OF INHALED STERO 11/13/2018 NILA LEE APRN Ot Z88 .2 ALLERGY STATUS TO SULFONAMIDES STATUS 11/13/2018 NILA LEE APRN Ot Z90.49 ACQUIRED ABSENCE OF OTHER SPECIFIED PART 11/13/2018 NILA LEE APRN Ot Z90.710 ACQUIRED ABSENCE OF BOTH CERVIX AND UTER 11/13/2018 NILA LEE APRN Ot Z98.890 OTHER SPECIFIED POSTPROCEDURAL STATES 11/25/2018 LALITHA SQUIRES DO, Ot J44. 9 CHRONIC OBSTRUCTIVE PULMONARY DISEASE, U 11/25/2018 LALITHA SQUIRES DO Ot J45.909 UNSPECIFIED ASTHMA, UNCOMPLICATED 11/25/2018 LALITHA SQUIRES DO Ot R05 COUGH 11/25/2018 LALITHA SQUIRES DO Ot R06. 00 DYSPNEA, UNSPECIFIED 11/26/2018 LALITHA SQUIRES DO, Ot J44. 9 CHRONIC OBSTRUCTIVE PULMONARY DISEASE, U 11/26/2018 LALITHA SQUIRES DO, Ot J45.909 UNSPECIFIED ASTHMA, UNCOMPLICATED 11/26/2018 LALITHA SQUIRES DO Ot R05 COUGH 11/26/2018 LALITHA SQUIRES DO Ot R06. 00 DYSPNEA, UNSPECIFIED 07/02/2019 LALITHA SQUIRES DO, Ot J44. 9 CHRONIC OBSTRUCTIVE PULMONARY DISEASE, U 07/02/2019 LALITHA SQUIRES DO Ot R05 COUGH 07/02/2019 LALITHA SQUIRES DO Ot R06. 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 9 CHRONIC OBSTRUCTIVE PULMONARY DISEASE, U 07/02/2019 LALITHA SQUIRES DO Ot R05 COUGH 07/02/2019 LALITHA SQUIRES DO Ot R06. 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, RIG 07/04/2019 NILA LEE APRN Ot M25.511 PAIN IN RIGHT SHOULDER 07/04/2019 NILA LEE APRN Ot Z79.51 GROUP HOME (CURRENT) USE OF INHALED STERO 07/04/2019 NILA LEE APRN Ot Z88 .2 ALLERGY STATUS TO SULFONAMIDES STATUS 07/04/2019 LEE, PETER J DERMATOLOGIST Ot Z90.49 ACQUIRED ABSENCE OF OTHER SPECIFIED PART 07/04/2019 NILA LEE DERMATOLOGIST Ot Z90.710 ACQUIRED ABSENCE OF BOTH CERVIX AND UTER 07/10/2019 KESHAWN KERVIN Nick Ot F32.9 MAJOR DEPRESSIVE DISORDER, SINGLE EPISOD 07/10/2019 KERVIN LIAO DO Nick Ot J44.9 CHRONIC OBSTRUCTIVE PULMONARY DISEASE, U 07/10/2019 KESHAWN KERVIN Nick Ot K21.9 GASTRO-ESOPHAGEAL REFLUX DISEASE WITHOUT 07/10/2019 KESHAWN DO KERVIN Romero Ot M25.511 PAIN IN RIGHT SHOULDER 07/10/2019 KESHAWN KERVIN Romero Ot Z88.2 ALLERGY STATUS TO SULFONAMIDES STATUS 07/10/2019 KESHAWN KERVIN Nick Ot Z90.49 ACQUIRED ABSENCE OF OTHER SPECIFIED PART 07/10/2019 KESHAWN KERVIN Romero Ot Z90.710 ACQUIRED ABSENCE OF BOTH CERVIX AND UTER 07/10/2019 KESHAWN KERVIN Romero Ot Z98.890 OTHER SPECIFIED POSTPROCEDURAL STATES 07/25/2019 CAITLIN LANGLEY FRANCK Ot A41.9 SEPSIS, UNSPECIFIED ORGANISM 07/25/2019 TUCKERALAN LANGLEY FRANCK Ot E87.2 ACIDOSIS 07/25/2019 FRANCK TUCKER DO Ot F32.9 MAJOR DEPRESSIVE DISORDER, SINGLE EPISOD 07/25/2019 CAITLIN LANGLEY FRANCK Ot J18.1 LOBAR PNEUMONIA, UNSPECIFIED ORGANISM 07/25/2019 CAITLIN LANGLEY FRANCK Ot J30.2 OTHER SEASONAL ALLERGIC RHINITIS 07/25/2019 CAITLIN LANGLEY FRANCK Ot J44.0 CHRONIC OBSTRUCTIVE PULMON DISEASE W ACU 07/25/2019 CAITLIN LANGLEY FRANCK Ot J44.1 CHRONIC OBSTRUCTIVE PULMONARY DISEASE W 07/25/2019 CAITLIN LANGLEY FRANCK Ot K21.9 GASTRO-ESOPHAGEAL REFLUX DISEASE WITHOUT 07/25/2019 CAITLIN LANGLEY FRANCK Ot M19.91 PRIMARY OSTEOARTHRITIS, UNSPECIFIED SITE 07/29/2019 THEO GRIER APRN Ot V76.12 OTH SCREEN MAMMO-MALIGN NEOPLASM OF YOLY 07/29/2019 TARIQ TATE Ot 496 CHR AIRWAY OBSTRUCT NEC 07/29/2019 TARIQ TATE CFNP Ot 786.05 SHORTNESS OF BREATH 07/29/2019 TATE, TARIQ R CFNP Ot 573.8 LIVER DISORDERS NEC 07/29/2019 TATETARIQ R CFNP Ot 786.05 SHORTNESS OF BREATH 07/29/2019 TATETARIQ R CFNP Ot 786.2 COUGH 07/29/2019 TATETARIQ R CFNP Ot 793.19 OTHER NONSPECIFIC ABNORMAL FINDING OF NOAM 07/29/2019 LALITHA SQUIRES DO M Ot 278. 00 OBESITY, NOS 07/29/2019 STAR SQUIRES DOSON M Ot 496 CHR AIRWAY OBSTRUCT NEC 07/29/2019 STAR SQUIRES DOSON M Ot 278. 00 OBESITY, NOS 07/29/2019 STAR SQUIRES DOSON M Ot 493. 20 CHRONIC OBSTRUCTIVE ASTHMA, NOS 07/29/2019 THEO GRIER APRN Ot Z12.31 ENCNTR SCREEN MAMMOGRAM FOR MALIGNANT NE 07/29/2019 YVETTE ROSA Ot Z12.31 ENCNTR SCREEN MAMMOGRAM FOR MALIGNANT NE 07/29/2019 LALITHA SQUIRES DO Ot J44. 9 CHRONIC OBSTRUCTIVE PULMONARY DISEASE, U 07/29/2019 LALITHA SQUIRES DO M Ot R05 COUGH 07/29/2019 STAR SQUIRES DOSON M Ot R06. 00 DYSPNEA, UNSPECIFIED 08/04/2019 DEUCE RUIZ MD Ot M25.511 PAIN IN RIGHT SHOULDER 08/07/2019 LALITHA SQUIRES DO Ot J44. 9 CHRONIC OBSTRUCTIVE PULMONARY DISEASE, U 08/07/2019 STAR SQUIRES DOSON M Ot R05 COUGH 08/07/2019 LALITHA SQUIRES DO Ot R06. 00 DYSPNEA, UNSPECIFIED 08/07/2019 WERO BARKLEY DERMATOLOGIST Ot Z12.31 ENCNTR SCREEN MAMMOGRAM FOR MALIGNANT NE 08/07/2019 DEUCE RUIZ MD Ot M25.511 PAIN IN RIGHT SHOULDER 08/07/2019 THEO GRIER APRN Ot V76.12 OTH SCREEN MAMMO-MALIGN NEOPLASM OF YOLY 08/07/2019 TARIQ TATE CFNP Ot 496 CHR AIRWAY OBSTRUCT NEC 08/07/2019 TATETARIQ CHRISTINE R CFNP Ot 786.05 SHORTNESS OF BREATH 08/07/2019 TARIQ TATE R CFNP Ot 573.8 LIVER DISORDERS NEC 08/07/2019 TATETARIQ CHRISTINE CFNP Ot 786.05 SHORTNESS OF BREATH 08/07/2019 TARIQ TATE CFNP Ot 786.2 COUGH 08/07/2019 TATETARIQ CHRISTINE CFNP Ot 793.19 OTHER NONSPECIFIC ABNORMAL FINDING OF NOAM 08/07/2019 LALITHA SQUIRES DO Ot 278. 00 OBESITY, NOS 08/07/2019 LALITHA SQUIRES DO Ot 496 CHR AIRWAY OBSTRUCT NEC 08/07/2019 LALITHA SQUIRES DO Ot 278. 00 OBESITY, NOS 08/07/2019 LALITHA SQUIRES DO Ot 493. 20 CHRONIC OBSTRUCTIVE ASTHMA, NOS 08/07/2019 THEO GRIER APRN Ot Z12.31 ENCNTR SCREEN MAMMOGRAM FOR MALIGNANT NE 08/07/2019 YVETTE ROSA Ot Z12.31 ENCNTR SCREEN MAMMOGRAM FOR MALIGNANT NE 08/07/2019 LALITHA SQUIRES DO Ot J44. 9 CHRONIC OBSTRUCTIVE PULMONARY DISEASE, U 08/07/2019 LALITHA SQUIRES DO Ot R05 COUGH 08/07/2019 LALITHA SQUIRES DO Ot R06. 00 DYSPNEA, UNSPECIFIED 08/07/2019 DEUCE RUIZ MD Ot M25.511 PAIN IN RIGHT SHOULDER 08/21/2019 DEUCE RUIZ MD Ot M25.511 PAIN IN RIGHT SHOULDER 08/29/2019 NLIA LEE APRN Ot F32 .9 MAJOR DEPRESSIVE DISORDER, SINGLE EPISOD 08/29/2019 NILA LEE APRN Ot J44 .9 CHRONIC OBSTRUCTIVE PULMONARY DISEASE, U 08/29/2019 NILA LEE APRN Ot K21 .9 GASTRO-ESOPHAGEAL REFLUX DISEASE WITHOUT 08/29/2019 NILA LEE APRN Ot R07.89 OTHER CHEST PAIN 08/29/2019 NILA LEE APRN Ot S40.021A CONTUSION OF RIGHT UPPER ARM, INITIAL EN 08/29/2019 NILA LEE APRN Ot W19.XXXA UNSPECIFIED FALL, INITIAL ENCOUNTER 08/29/2019 NILA LEE APRN Ot Z79.51 PHOTOGRAPHY COORDINATOR (CURRENT) USE OF INHALED STERO 08/29/2019 NILA LEE APRN Ot Z88 .2 ALLERGY STATUS TO SULFONAMIDES STATUS 08/29/2019 NILA LEE APRN Ot Z90.49 ACQUIRED ABSENCE OF OTHER SPECIFIED PART 08/29/2019 NILA LEE APRN Ot Z90.710 ACQUIRED ABSENCE OF BOTH CERVIX AND UTER 09/02/2019 NILA LEE APRN Ot F32 .9 MAJOR DEPRESSIVE DISORDER, SINGLE EPISOD 09/02/2019 NILA LEE APRN Ot J44 .9 CHRONIC OBSTRUCTIVE PULMONARY DISEASE, U 09/02/2019 NILA LEE APRN Ot K21 .9 GASTRO-ESOPHAGEAL REFLUX DISEASE WITHOUT 09/02/2019 NILA LEE APRN Ot R07.89 OTHER CHEST PAIN 09/02/2019 NILA LEE APRN Ot W19.XXXA UNSPECIFIED FALL, INITIAL ENCOUNTER 09/02/2019 NILA LEE APRN Ot Z79.51 PHOTOGRAPHY COORDINATOR (CURRENT) USE OF INHALED STERO 09/02/2019 NILA LEE APRN Ot Z88 .2 ALLERGY STATUS TO SULFONAMIDES STATUS 09/02/2019 NILA LEE APRN Ot Z90.49 ACQUIRED ABSENCE OF OTHER SPECIFIED PART 09/02/2019 NILA LEE APRN Ot Z90.710 ACQUIRED ABSENCE OF BOTH CERVIX AND UTER 09/02/2019 NILA LEE APRN Ot F32 .9 MAJOR DEPRESSIVE DISORDER, SINGLE EPISOD 09/02/2019 NILA LEE APRN Ot J44 .9 CHRONIC OBSTRUCTIVE PULMONARY DISEASE, U 09/02/2019 NILA LEE APRN Ot K21 .9 GASTRO-ESOPHAGEAL REFLUX DISEASE WITHOUT 09/02/2019 NILA LEE APRN Ot R07.89 OTHER CHEST PAIN 09/02/2019 NILA LEE APRN Ot S40.021A CONTUSION OF RIGHT UPPER ARM, INITIAL EN 09/02/2019 NILA LEE APRN Ot W19.XXXA UNSPECIFIED FALL, INITIAL ENCOUNTER 09/02/2019 NILA LEE APRN Ot Z79.51 GROUP HOME (CURRENT) USE OF INHALED STERO 09/02/2019 NILA LEE APRN Ot Z88 .2 ALLERGY STATUS TO SULFONAMIDES STATUS 09/02/2019 NILA LEE APRN Ot Z90.49 ACQUIRED ABSENCE OF OTHER SPECIFIED PART 09/02/2019 NILA LEE APRN Ot Z90.710 ACQUIRED ABSENCE OF BOTH CERVIX AND UTER 09/23/2019 HTEO GRIER APRN Ot V76.12 OTH SCREEN MAMMO-MALIGN NEOPLASM OF YOLY 09/23/2019 TARIQ TATE CFNP Ot 496 CHR AIRWAY OBSTRUCT NEC 09/23/2019 TARIQ TATE CFNP Ot 786.05 SHORTNESS OF BREATH 09/23/2019 TARIQ TATE CFNP Ot 573.8 LIVER DISORDERS NEC 09/23/2019 TARIQ TATE CFNP Ot 786.05 SHORTNESS OF BREATH 09/23/2019 TARIQ TATE CFNP Ot 786.2 COUGH 09/23/2019 TARIQ TATE CFNP Ot 793.19 OTHER NONSPECIFIC ABNORMAL FINDING OF NOAM 09/23/2019 LALITHA SQUIRES DO Ot 278. 00 OBESITY, NOS 09/23/2019 LALITHA SQUIRES DO Ot 496 CHR AIRWAY OBSTRUCT NEC 09/23/2019 LALITHA SQUIRES DO Ot 278. 00 OBESITY, NOS 09/23/2019 LALITHA SQUIRES DO Ot 493. 20 CHRONIC OBSTRUCTIVE ASTHMA, NOS 09/23/2019 THEO GRIER APRN Ot Z12.31 ENCNTR SCREEN MAMMOGRAM FOR MALIGNANT NE 09/23/2019 YVETTE ROSA Ot Z12.31 ENCNTR SCREEN MAMMOGRAM FOR MALIGNANT NE 09/23/2019 LALITHA SQUIRES DO Ot J44. 9 CHRONIC OBSTRUCTIVE PULMONARY DISEASE, U 09/23/2019 LALITHA SQUIRES DO Ot R05 COUGH 09/23/2019 LALITHA SQUIRES DO Ot R06. 00 DYSPNEA, UNSPECIFIED 09/23/2019 JOSEPH HERBERT, DEUCE Canas Ot M25.511 PAIN IN RIGHT SHOULDER 09/25/2019 [address] WAL[address]S APRN Ot J45.909 UNSPECIFIED ASTHMA, UNCOMPLICATED 10/08/2019 Ot J40 BRONCH ITIS, NOT SPECIFIED ACUTE OR CH 10/08/2019 Ot J45.909 UN SPECIFIED ASTHMA, UNCOMPLICATED 10/08/2019 Ot M25.511 PA IN IN RIGHT SHOULDER 10/08/2019 Ot M79.601 PA IN IN RIGHT ARM 10/08/2019 Ot S50.311A A BRASION OF RIGHT ELBOW, INITIAL ENCOUNT 10/08/2019 Ot W19.XXXA U NSPECIFIED FALL, INITIAL ENCOUNTER 10/12/2019 TUCKER DO, FRANCK Ot A41.9 SEPSIS, UNSPECIFIED ORGANISM 10/12/2019 TUCKER DO, FRANCK Ot D64.9 ANEMIA, UNSPECIFIED 10/12/2019 TUCKER DO, FRANCK Ot E66.9 OBESITY, UNSPECIFIED 10/12/2019 TUCKER DO, FRANCK Ot E87.2 ACIDOSIS 10/12/2019 TUCKER DO, FRANCK Ot F32.9 MAJOR DEPRESSIVE DISORDER, SINGLE EPISOD 10/12/2019 TUCKER DO, FRANCK Ot J18.1 LOBAR PNEUMONIA, UNSPECIFIED ORGANISM 10/12/2019 TUCKER DO, FRANCK Ot J30.2 OTHER SEASONAL ALLERGIC RHINITIS 10/12/2019 TUCKER DO, FRANCK Ot J44.1 CHRONIC OBSTRUCTIVE PULMONARY DISEASE W 10/12/2019 TUCKRE DO, FRANCK Ot K21.9 GASTRO-ESOPHAGEAL REFLUX DISEASE WITHOUT 10/12/2019 TUCKER DO, FRANCK Ot M19.91 PRIMARY OSTEOARTHRITIS, UNSPECIFIED SITE 10/12/2019 TUCKER DO, FRANCK Ot Z68.35 BODY MASS INDEX (BMI) 35.0-35.9, ADULT 10/14/[address] WALTERS APRN Ot J45.909 UNSPECIFIED ASTHMA, UNCOMPLICATED 10/14/2019 Ot J40 BRONCH ITIS, NOT SPECIFIED ACUTE OR CH 10/14/2019 Ot J45.909 UN SPECIFIED ASTHMA, UNCOMPLICATED 10/14/2019 Ot M25.511 PA IN IN RIGHT SHOULDER 10/14/2019 Ot M79.601 PA IN IN RIGHT ARM 10/14/2019 Ot S50.311A A BRASION OF RIGHT ELBOW, INITIAL ENCOUNT 10/14/2019 Ot W19.XXXA U NSPECIFIED FALL, INITIAL ENCOUNTER 10/19/2019 THEO GRIER APRN Ot V76.12 OTH SCREEN MAMMO-MALIGN NEOPLASM OF YOLY 10/19/2019 TARIQ TATE CFNP Ot 496 CHR AIRWAY OBSTRUCT NEC 10/19/2019 TARIQ TATE CFNP Ot 786.05 SHORTNESS OF BREATH 10/19/2019 TARIQ TATE CFNP Ot 573.8 LIVER DISORDERS NEC 10/19/2019 TARIQ TATE CFNP Ot 786.05 SHORTNESS OF BREATH 10/19/2019 TARIQ TATE CFNP Ot 786.2 COUGH 10/19/2019 TARIQ TATE CFNP Ot 793.19 OTHER NONSPECIFIC ABNORMAL FINDING OF NOMA 10/19/2019 LALITHA SQUIRES DO Ot 278. 00 OBESITY, NOS 10/19/2019 LALITHA SQUIRES DO Ot 496 CHR AIRWAY OBSTRUCT NEC 10/19/2019 LALITHA SQUIRES DO Ot 278. 00 OBESITY, NOS 10/19/2019 LALITHA SQUIRES DO Ot 493. 20 CHRONIC OBSTRUCTIVE ASTHMA, NOS 10/19/2019 THEO GRIER APRN Ot Z12.31 ENCNTR SCREEN MAMMOGRAM FOR MALIGNANT NE 10/19/2019 STEFANILESLIYVETTE MIRANDA Vicky Ot Z12.31 ENCNTR SCREEN MAMMOGRAM FOR MALIGNANT NE 10/19/2019 LALITHA SQUIRES DO Ot J44. 9 CHRONIC OBSTRUCTIVE PULMONARY DISEASE, U 10/19/2019 LALITHA SQUIRES DO Ot R05 COUGH 10/19/2019 LALITHA SQUIRES DO Ot R06. 00 DYSPNEA, UNSPECIFIED 10/19/2019 JOSEPH HERBERT, DEUCE Canas Ot M25.511 PAIN IN RIGHT SHOULDER Procedures Code Description [place] [address] ROUT INE VENIPUNCTURE 10/26/2013 88585 XRAY CHEST 2 VIEW 10/26/2013 J3301 GIGI LOG INJ, PER 10 MG 10/26/2013 36317 LIPI D PANEL 10/26/2013 86617 CBC 10/26/2013 2346965 GF R CALC (RESULT ONLY) 10/26/2013 91772 CMP 10/26/2013 53559 UA L HAILEY DIP 06/14/2014 33410 MAMM OGRAM, SCREENING 08/18/2014 73678 XRAY CHEST 2 VIEW 02/17/2015 Results Test Result Range Influenza virus A and B antigen detectio n - 09/24/16 12:47 FLU RESULT NEGATIVE FOR INFLUENZA A AND B ANTIGENS BY IA NRG TSH - 12/18/17 14:03 TSH 4.04 mIU/L 0.40-4.50 UA W/ MICROSCOPY - 03/09/19 11:29 COLOR YELLOW YELLOW APPEARANCE CLEAR CLEAR SPECIFIC GRAVITY 1.012 1.001-1.035 PH 6.5 5.0-8.0 GLUCOSE NEGATIVE NEGATIVE BILIRUBIN NEGATIVE NEGATIVE KETONES NEGATIVE NEGATIVE OCCULT BLOOD NEGATIVE NEGATIVE PROTEIN NEGATIVE NEGATIVE NITRITE NEGATIVE NEGATIVE LEUKOCYTE ESTERASE TRACE NEGATIVE WBC NONE SEEN /HPF < OR = 5 RBC 0-2 /HPF < OR = 2 SQUAMOUS EPITHELIAL CELLS NONE SEEN /HPF < OR = 5 BACTERIA MANY /HPF NONE SEEN HYALINE CAST NONE SEEN /LPF NONE SEEN CULTURE, URINE - 03/09/19 11:29 CULTURE, URINE, ROUTINE SEE NOTE NRG CULTURE, URINE - 04/21/19 19:00 CULTURE, URINE, ROUTINE SEE NOTE NRG TSH - 06/30/19 08:58 TSH 7.78 mIU/L 0.40-4.50 Bacterial blood culture - 07/23/19 07:35 Bacterial blood culture NG NRG Complete blood count (CBC) with automate d white blood cell (WBC) differential - 07/23/19 07:38 Blood leukocytes automated count (number/volume) 7.5 10*3/uL 4.3-11.0 Blood erythrocytes automated count (number/volume) 4.81 10*6/uL 4.35-5.85 Venous blood hemoglobin measurement (mass/volume) 14.1 g/dL 11.5-16.0 Blood hematocrit (volume fraction) 43 % 35-52 Automated erythrocyte mean corpuscular volume 89 [ foz_us] 80-99 Automated erythrocyte mean corpuscular h emoglobin (mass per erythrocyte) 29 pg 25-34 Automated erythrocyte mean corpuscular h emoglobin concentration measurement (mass/volume) 33 g/dL 32-36 Automated erythrocyte distribution width ratio 14. 1 % 10.0- 14.5 Automated blood platelet count (count/volume) 246 10*3/uL 130-400 Automated blood platelet mean volume measurement 10.3 [foz_us] 7.4-10.4 Automated blood neutrophils/100 leukocytes 86 % 42-75 Automated blood lymphocytes/100 leukocytes 11 % 12-44 Blood monocytes/100 leukocytes 2 % 0-12 Automated blood eosinophils/100 leukocytes 0 % 0-10 Automated blood basophils/100 leukocytes 0 % 0-10 Blood neutrophils automated count (number/volume) 6.4 10*3 1.8-7.8 Blood lymphocytes automated count (number/volume) 0.8 10*3 1.0-4.0 Blood monocytes automated count (number/volume) 0. 2 10*3 0.0-1.0 Automated eosinophil count 0.0 10*3/uL 0 .0-0.3 Automated blood basophil count (count/volume) 0.0 10*3/uL 0.0-0.1 Comprehensive metabolic panel - 07/23/19 07:38 Serum or plasma sodium measurement (moles/volume) 144 mmol/L 135-145 Serum or plasma potassium measurement (moles/volume) 3.4 mmol/L 3.6-5.0 Serum or plasma chloride measurement (moles/volume) 109 mmol/L 98-107 Carbon dioxide 23 mmol/L 21-32 Serum or plasma anion gap determination (moles/volume) 12 mmol/L 5-14 Serum or plasma urea nitrogen measurement (mass/volume ) 14 mg/dL 7-18 Serum or plasma creatinine measurement (mass/volume) 0.96 mg/dL 0.60-1.30 Serum or plasma urea nitrogen/creatinine mass ratio 15 NRG Serum or plasma creatinine measurement w ith calculation of estimated glomerular filtration rate 59 NRG Serum or plasma glucose measurement (mass/volume) 120 mg/dL 70-105 Serum or plasma calcium measurement (mass/volume) 9.2 mg/dL 8.5-10.1 Serum or plasma total bilirubin measurement (mass/volu me) 0.9 mg/dL 0.1-1.0 Serum or plasma alkaline phosphatase marco surement (enzymatic activity/volume) 81 U/L 40-136 Serum or plasma aspartate aminotransfera se measurement (enzymatic activity/volume) 21 U/L 5-34 Serum or plasma alanine aminotransferase measurement (enzymatic activity/volume) 33 U/L 0-55 Serum or plasma protein measurement (mass/volume) 6.6 g/dL 6.4-8.2 Serum or plasma albumin measurement (mass/volume) 3.9 g/dL 3.2-4.5 CALCIUM CORRECTED 9.3 mg/dL 8.5-10.1 PT panel in platelet poor plasma by coag ulation assay - 07/23/19 07:38 Prothrombin time (PT) in platelet poor plasma by coagu lation assay 12.5 s 12.2-14.7 INR in platelet poor plasma or blood by coagulation as say 0.9 0.8-1.4 Activated partial thromboplastin time (a PTT) in platelet poor plasma bycoagulation assay - 07/23/19 07:38 Activated partial thromboplastin time (a PTT) in platelet poor plasma bycoagulation assay 25 s 24-35 Influenza virus A and B antigen detectio n - 07/23/19 07:38 FLU RESULT NEGATIVE FOR INFLUENZA A AND B ANTIGENS BY IA NRG Serum or plasma troponin i.cardiac measu rement (mass/volume) - 07/23/19 07:38 Serum or plasma troponin i.cardiac measurement (mass/v olume) < ng/mL <0.028 Blood lactic acid measurement (moles/vol ume) - 07/23/19 07:38 Blood lactic acid measurement (moles/volume) 3.27 mmol/L 0.50-2.00 Manual absolute plasma cell count - 07/05 07/23 07:38 Blood monocytes/100 leukocytes 3 % NRG Manual blood segmented neutrophils/100 leukocytes 83 % NRG Manual blood lymphocytes/100 leukocytes 14 % NRG Blood erythrocyte morphology finding identification NORMAL NRG Lipase - 07/23/19 07:38 Lipase 10 U/L 8-78 Bacterial blood culture - 07/23/19 08:03 Bacterial blood culture NG NRG Complete urinalysis with reflex to cultu re - 07/23/19 08:20 Urine color determination YELLOW NRG Urine clarity determination CLEAR NR G Urine pH measurement by test strip 7 5-9 Specific gravity of urine by test strip 1.010 1.016-1.022 Urine protein assay by test strip, semi-quantitative NEGATIVE NEGATIVE Urine glucose detection by automated test strip NE GATIVE NEGATIVE Erythrocytes detection in urine sediment by light micr oscopy 2+ NEGATIVE Urine ketones detection by automated test strip NE GATIVE NEGATIVE Urine nitrite detection by test strip NEGATIVE NEGATIVE Urine total bilirubin detection by test strip NEGA TIVE NEGATIVE Urine urobilinogen measurement by automated test strip (mass/volume) NORMAL NORMAL Urine leukocyte esterase detection by dipstick 2+ NEGATIVE Automated urine sediment erythrocyte cou nt by microscopy (number/high power field) [HPF] NRG Automated urine sediment leukocyte count by microscopy (number/high power field) [HPF] NRG Bacteria detection in urine sediment by light microsco py NEGATIVE NRG Squamous epithelial cells detection in u rine sediment by light microscopy RARE NRG Crystals detection in urine sediment by light microsco py NONE NRG Casts detection in urine sediment by light microscopy NONE NRG Mucus detection in urine sediment by light microscopy NEGATIVE NRG Complete urinalysis with reflex to culture NO NRG Bacterial urine culture - 07/23/19 08:20 Bacterial urine culture 3 OR MORE NRG COLONY COUNT 60,000 cfu/ml NRG FTX;REPORTABLE SUGGESTING PROBABLE COLLECTION NRG FREE TEXT ENTRY 2 CONTAMINATION WITH SKIN CHANDAN NRG FREE TEXT ENTRY 3 NO SUSCEPTIBILITY PERFORMED NR Serum or plasma lactate measurement (mol es/volume) - 07/23/19 10:14 Serum or plasma lactate measurement (moles/volume) 2.62 mmol/L 0.50-2.00 Complete blood count (CBC) with automate d white blood cell (WBC) differential - 07/24/19 05:40 Blood leukocytes automated count (number/volume) 13.6 10*3/uL 4.3-11.0 Blood erythrocytes automated count (number/volume) 3.78 10*6/uL 4.35-5.85 Venous blood hemoglobin measurement (mass/volume) 11.0 g/dL 11.5-16.0 Blood hematocrit (volume fraction) 34 % 35-52 Automated erythrocyte mean corpuscular volume 89 [ foz_us] 80-99 Automated erythrocyte mean corpuscular h emoglobin (mass per erythrocyte) 29 pg 25-34 Automated erythrocyte mean corpuscular h emoglobin concentration measurement (mass/volume) 33 g/dL 32-36 Automated erythrocyte distribution width ratio 14. 4 % 10.0- 14.5 Automated blood platelet count (count/volume) 198 10*3/uL 130-400 Automated blood platelet mean volume measurement 10.3 [foz_us] 7.4-10.4 Automated blood neutrophils/100 leukocytes 76 % 42-75 Automated blood lymphocytes/100 leukocytes 16 % 12-44 Blood monocytes/100 leukocytes 7 % 0-12 Automated blood eosinophils/100 leukocytes 0 % 0-10 Automated blood basophils/100 leukocytes 0 % 0-10 Blood neutrophils automated count (number/volume) 10.3 10*3 1.8-7.8 Blood lymphocytes automated count (number/volume) 2.1 10*3 1.0-4.0 Blood monocytes automated count (number/volume) 1. 0 10*3 0.0-1.0 Automated eosinophil count 0.1 10*3/uL 0 .0-0.3 Automated blood basophil count (count/volume) 0.0 10*3/uL 0.0-0.1 Comprehensive metabolic panel - 07/24/19 05:40 Serum or plasma sodium measurement (moles/volume) 140 mmol/L 135-145 Serum or plasma potassium measurement (moles/volume) 3.6 mmol/L 3.6-5.0 Serum or plasma chloride measurement (moles/volume) 110 mmol/L 98-107 Carbon dioxide 24 mmol/L 21-32 Serum or plasma anion gap determination (moles/volume) 6 mmol/L 5-14 Serum or plasma urea nitrogen measurement (mass/volume ) 13 mg/dL 7-18 Serum or plasma creatinine measurement (mass/volume) 0.82 mg/dL 0.60-1.30 Serum or plasma urea nitrogen/creatinine mass ratio 16 NRG Serum or plasma creatinine measurement w ith calculation of estimated glomerular filtration rate > NRG Serum or plasma glucose measurement (mass/volume) 98 mg/dL 70-105 Serum or plasma calcium measurement (mass/volume) 8.8 mg/dL 8.5-10.1 Serum or plasma total bilirubin measurement (mass/volu me) 0.6 mg/dL 0.1-1.0 Serum or plasma alkaline phosphatase marco surement (enzymatic activity/volume) 73 U/L 40-136 Serum or plasma aspartate aminotransfera se measurement (enzymatic activity/volume) 19 U/L 5-34 Serum or plasma alanine aminotransferase measurement (enzymatic activity/volume) 27 U/L 0-55 Serum or plasma protein measurement (mass/volume) 5.1 g/dL 6.4-8.2 Serum or plasma albumin measurement (mass/volume) 3.0 g/dL 3.2-4.5 CALCIUM CORRECTED 9.6 mg/dL 8.5-10.1 Blood lactic acid measurement (moles/vol ume) - 07/24/19 16:40 Blood lactic acid measurement (moles/volume) 0.94 mmol/L 0.50-2.00 Complete blood count (CBC) with automate d white blood cell (WBC) differential - 07/25/19 05:09 Blood leukocytes automated count (number/volume) 9.5 10*3/uL 4.3-11.0 Blood erythrocytes automated count (number/volume) 3.91 10*6/uL 4.35-5.85 Venous blood hemoglobin measurement (mass/volume) 11.5 g/dL 11.5-16.0 Blood hematocrit (volume fraction) 35 % 35-52 Automated erythrocyte mean corpuscular volume 89 [ foz_us] 80-99 Automated erythrocyte mean corpuscular h emoglobin (mass per erythrocyte) 29 pg 25-34 Automated erythrocyte mean corpuscular h emoglobin concentration measurement (mass/volume) 33 g/dL 32-36 Automated erythrocyte distribution width ratio 14. 2 % 10.0- 14.5 Automated blood platelet count (count/volume) 200 10*3/uL 130-400 Automated blood platelet mean volume measurement 10.5 [foz_us] 7.4-10.4 Automated blood neutrophils/100 leukocytes 73 % 42-75 Automated blood lymphocytes/100 leukocytes 18 % 12-44 Blood monocytes/100 leukocytes 8 % 0-12 Automated blood eosinophils/100 leukocytes 1 % 0-10 Automated blood basophils/100 leukocytes 0 % 0-10 Blood neutrophils automated count (number/volume) 7.0 10*3 1.8-7.8 Blood lymphocytes automated count (number/volume) 1.7 10*3 1.0-4.0 Blood monocytes automated count (number/volume) 0. 7 10*3 0.0-1.0 Automated eosinophil count 0.1 10*3/uL 0 .0-0.3 Automated blood basophil count (count/volume) 0.0 10*3/uL 0.0-0.1 Comprehensive metabolic panel - 07/25/19 05:09 Serum or plasma sodium measurement (moles/volume) 141 mmol/L 135-145 Serum or plasma potassium measurement (moles/volume) 3.5 mmol/L 3.6-5.0 Serum or plasma chloride measurement (moles/volume) 109 mmol/L 98-107 Carbon dioxide 23 mmol/L 21-32 Serum or plasma anion gap determination (moles/volume) 9 mmol/L 5-14 Serum or plasma urea nitrogen measurement (mass/volume ) 11 mg/dL 7-18 Serum or plasma creatinine measurement (mass/volume) 0.75 mg/dL 0.60-1.30 Serum or plasma urea nitrogen/creatinine mass ratio 15 NRG Serum or plasma creatinine measurement w ith calculation of estimated glomerular filtration rate > NRG Serum or plasma glucose measurement (mass/volume) 93 mg/dL 70-105 Serum or plasma calcium measurement (mass/volume) 9.1 mg/dL 8.5-10.1 Serum or plasma total bilirubin measurement (mass/volu me) 0.8 mg/dL 0.1-1.0 Serum or plasma alkaline phosphatase marco surement (enzymatic activity/volume) 68 U/L 40-136 Serum or plasma aspartate aminotransfera se measurement (enzymatic activity/volume) 17 U/L 5-34 Serum or plasma alanine aminotransferase measurement (enzymatic activity/volume) 27 U/L 0-55 Serum or plasma protein measurement (mass/volume) 5.9 g/dL 6.4-8.2 Serum or plasma albumin measurement (mass/volume) 3.4 g/dL 3.2-4.5 CALCIUM CORRECTED 9.6 mg/dL 8.5-10.1 Methicillin resistant Staphylococcus aur eus (MRSA) screening culture - 10/08/19 07:19 Methicillin resistant Staphylococcus aureus (MRSA) scr eening culture NEG NRG Complete blood count (CBC) with automate d white blood cell (WBC) differential - 10/08/19 07:21 Blood leukocytes automated count (number/volume) 12.2 10*3/uL 4.3-11.0 Blood erythrocytes automated count (number/volume) 4.62 10*6/uL 4.35-5.85 Venous blood hemoglobin measurement (mass/volume) 13.4 g/dL 11.5-16.0 Blood hematocrit (volume fraction) 41 % 35-52 Automated erythrocyte mean corpuscular volume 89 [ foz_us] 80-99 Automated erythrocyte mean corpuscular h emoglobin (mass per erythrocyte) 29 pg 25-34 Automated erythrocyte mean corpuscular h emoglobin concentration measurement (mass/volume) 33 g/dL 32-36 Automated erythrocyte distribution width ratio 15. 1 % 10.0- 14.5 Automated blood platelet count (count/volume) 265 10*3/uL 130-400 Automated blood platelet mean volume measurement 10.1 [foz_us] 7.4-10.4 Automated blood neutrophils/100 leukocytes 92 % 42-75 Automated blood lymphocytes/100 leukocytes 5 % 12-44 Blood monocytes/100 leukocytes 3 % 0-12 Automated blood eosinophils/100 leukocytes 1 % 0-10 Automated blood basophils/100 leukocytes 0 % 0-10 Blood neutrophils automated count (number/volume) 11.2 10*3 1.8-7.8 Blood lymphocytes automated count (number/volume) 0.6 10*3 1.0-4.0 Blood monocytes automated count (number/volume) 0. 3 10*3 0.0-1.0 Automated eosinophil count 0.1 10*3/uL 0 .0-0.3 Automated blood basophil count (count/volume) 0.0 10*3/uL 0.0-0.1 Blood lactic acid measurement (moles/vol ume) - 10/08/19 07:21 Blood lactic acid measurement (moles/volume) 2.80 mmol/L 0.50-2.00 Comprehensive metabolic panel - 10/08/19 07:21 Serum or plasma sodium measurement (moles/volume) 142 mmol/L 135-145 Serum or plasma potassium measurement (moles/volume) 3.8 mmol/L 3.6-5.0 Serum or plasma chloride measurement (moles/volume) 107 mmol/L 98-107 Carbon dioxide 22 mmol/L 21-32 Serum or plasma anion gap determination (moles/volume) 13 mmol/L 5-14 Serum or plasma urea nitrogen measurement (mass/volume ) 13 mg/dL 7-18 Serum or plasma creatinine measurement (mass/volume) 0.96 mg/dL 0.60-1.30 Serum or plasma urea nitrogen/creatinine mass ratio 14 NRG Serum or plasma creatinine measurement w ith calculation of estimated glomerular filtration rate 59 NRG Serum or plasma glucose measurement (mass/volume) 141 mg/dL 70-105 Serum or plasma calcium measurement (mass/volume) 9.2 mg/dL 8.5-10.1 Serum or plasma total bilirubin measurement (mass/volu me) 0.9 mg/dL 0.1-1.0 Serum or plasma alkaline phosphatase marco surement (enzymatic activity/volume) 81 U/L 40-136 Serum or plasma aspartate aminotransfera se measurement (enzymatic activity/volume) 19 U/L 5-34 Serum or plasma alanine aminotransferase measurement (enzymatic activity/volume) 40 U/L 0-55 Serum or plasma protein measurement (mass/volume) 6.3 g/dL 6.4-8.2 Serum or plasma albumin measurement (mass/volume) 3.8 g/dL 3.2-4.5 CALCIUM CORRECTED 9.4 mg/dL 8.5-10.1 PT panel in platelet poor plasma by coag ulation assay - 10/08/19 07:21 Prothrombin time (PT) in platelet poor plasma by coagu lation assay 13.2 s 12.2-14.7 INR in platelet poor plasma or blood by coagulation as say 1.0 0.8-1.4 Activated partial thromboplastin time (a PTT) in platelet poor plasma bycoagulation assay - 10/08/19 07:21 Activated partial thromboplastin time (a PTT) in platelet poor plasma bycoagulation assay 25 s 24-35 Serum or plasma troponin i.cardiac measu rement (mass/volume) - 10/08/19 07:21 Serum or plasma troponin i.cardiac measurement (mass/v olume) < ng/mL <0.028 Serum or plasma amylase measurement (enz ymatic activity/volume) - 10/08/19 07:21 Serum or plasma amylase measurement (enzymatic activit y/volume) 47 U/L 25-125 Lipase - 10/08/19 07:21 Lipase 16 U/L 8-78 Manual absolute plasma cell count - 03/22 07:21 Blood monocytes/100 leukocytes 4 % NRG Manual blood segmented neutrophils/100 leukocytes 93 % NRG Manual blood lymphocytes/100 leukocytes 3 % NRG Blood erythrocyte morphology finding identification NORMAL NRG Bacterial blood culture - 10/08/19 07:21 QUANTITY OF GROWTH . NRG Bacterial blood culture SEE COMMEN NR Bacterial blood culture - 10/08/19 07:48 Bacterial blood culture NG NR Complete urinalysis with reflex to cultu re - 10/08/19 08:07 Urine color determination YELLOW NRG Urine clarity determination CLEAR NR G Urine pH measurement by test strip 8.0 5-9 Specific gravity of urine by test strip 1.015 1.016-1.022 Urine protein assay by test strip, semi-quantitative NEGATIVE NEGATIVE Urine glucose detection by automated test strip NE GATIVE NEGATIVE Erythrocytes detection in urine sediment by light micr oscopy NEGATIVE NEGATIVE Urine ketones detection by automated test strip NE GATIVE NEGATIVE Urine nitrite detection by test strip NEGATIVE NEGATIVE Urine total bilirubin detection by test strip NEGA TIVE NEGATIVE Urine urobilinogen measurement by automated test strip (mass/volume) 1.0 mg/dL < = 1.0 Urine leukocyte esterase detection by dipstick NEG ATIVE NEGATIVE Automated urine sediment erythrocyte cou nt by microscopy (number/high power field) NONE NRG Automated urine sediment leukocyte count by microscopy (number/high power field) NONE NRG Bacteria detection in urine sediment by light microsco py NEGATIVE NRG Squamous epithelial cells detection in u rine sediment by light microscopy 0-2 NRG Crystals detection in urine sediment by light microsco py NONE NRG Casts detection in urine sediment by light microscopy NONE NRG Mucus detection in urine sediment by light microscopy NEGATIVE NRG Complete urinalysis with reflex to culture NO NRG Bacterial urine culture - 10/08/19 08:07 Bacterial urine culture 3 OR MORE NRG COLONY COUNT 60,000 cfu/ml NRG FTX;REPORTABLE GRAM POSITIVE ISOLATES; SUGGESTING NRG FREE TEXT ENTRY 2 PROBABLE COLLECTION CONTAMINATIO N WITH NRG FREE TEXT ENTRY 3 SKIN CHANDAN. NO SUSCEPTIBILITY PE RFORMED. NRG Serum or plasma lactate measurement (mol es/volume) - 10/08/19 09:40 Serum or plasma lactate measurement (moles/volume) 2.00 mmol/L 0.50-2.00 Complete blood count (CBC) with automate d white blood cell (WBC) differential - 10/09/19 05:00 Blood leukocytes automated count (number/volume) 9.7 10*3/uL 4.3-11.0 Blood erythrocytes automated count (number/volume) 3.59 10*6/uL 4.35-5.85 Venous blood hemoglobin measurement (mass/volume) 10.4 g/dL 11.5-16.0 Blood hematocrit (volume fraction) 32 % 35-52 Automated erythrocyte mean corpuscular volume 90 [ foz_us] 80-99 Automated erythrocyte mean corpuscular h emoglobin (mass per erythrocyte) 29 pg 25-34 Automated erythrocyte mean corpuscular h emoglobin concentration measurement (mass/volume) 32 g/dL 32-36 Automated erythrocyte distribution width ratio 15. 1 % 10.0- 14.5 Automated blood platelet count (count/volume) 191 10*3/uL 130-400 Automated blood platelet mean volume measurement 10.2 [foz_us] 7.4-10.4 Automated blood neutrophils/100 leukocytes 74 % 42-75 Automated blood lymphocytes/100 leukocytes 18 % 12-44 Blood monocytes/100 leukocytes 6 % 0-12 Automated blood eosinophils/100 leukocytes 2 % 0-10 Automated blood basophils/100 leukocytes 0 % 0-10 Blood neutrophils automated count (number/volume) 7.2 10*3 1.8-7.8 Blood lymphocytes automated count (number/volume) 1.7 10*3 1.0-4.0 Blood monocytes automated count (number/volume) 0. 6 10*3 0.0-1.0 Automated eosinophil count 0.2 10*3/uL 0 .0-0.3 Automated blood basophil count (count/volume) 0.0 10*3/uL 0.0-0.1 Comprehensive metabolic panel - 10/09/19 05:20 Serum or plasma sodium measurement (moles/volume) 141 mmol/L 135-145 Serum or plasma potassium measurement (moles/volume) 3.8 mmol/L 3.6-5.0 Serum or plasma chloride measurement (moles/volume) 112 mmol/L 98-107 Carbon dioxide 21 mmol/L 21-32 Serum or plasma anion gap determination (moles/volume) 8 mmol/L 5-14 Serum or plasma urea nitrogen measurement (mass/volume ) 12 mg/dL 7-18 Serum or plasma creatinine measurement (mass/volume) 0.79 mg/dL 0.60-1.30 Serum or plasma urea nitrogen/creatinine mass ratio 15 NRG Serum or plasma creatinine measurement w ith calculation of estimated glomerular filtration rate > NRG Serum or plasma glucose measurement (mass/volume) 102 mg/dL 70-105 Serum or plasma calcium measurement (mass/volume) 8.4 mg/dL 8.5-10.1 Serum or plasma total bilirubin measurement (mass/volu me) 0.6 mg/dL 0.1-1.0 Serum or plasma alkaline phosphatase marco surement (enzymatic activity/volume) 59 U/L 40-136 Serum or plasma aspartate aminotransfera se measurement (enzymatic activity/volume) 14 U/L 5-34 Serum or plasma alanine aminotransferase measurement (enzymatic activity/volume) 26 U/L 0-55 Serum or plasma protein measurement (mass/volume) 4.9 g/dL 6.4-8.2 Serum or plasma albumin measurement (mass/volume) 2.9 g/dL 3.2-4.5 CALCIUM CORRECTED 9.3 mg/dL 8.5-10.1 Complete blood count (CBC) with automate d white blood cell (WBC) differential - 10/12/19 04:55 Blood leukocytes automated count (number/volume) 5.9 10*3/uL 4.3-11.0 Blood erythrocytes automated count (number/volume) 4.14 10*6/uL 4.35-5.85 Venous blood hemoglobin measurement (mass/volume) 11.8 g/dL 11.5-16.0 Blood hematocrit (volume fraction) 36 % 35-52 Automated erythrocyte mean corpuscular volume 87 [ foz_us] 80-99 Automated erythrocyte mean corpuscular h emoglobin (mass per erythrocyte) 29 pg 25-34 Automated erythrocyte mean corpuscular h emoglobin concentration measurement (mass/volume) 33 g/dL 32-36 Automated erythrocyte distribution width ratio 15. 3 % 10.0- 14.5 Automated blood platelet count (count/volume) 257 10*3/uL 130-400 Automated blood platelet mean volume measurement 10.1 [foz_us] 7.4-10.4 Automated blood neutrophils/100 leukocytes 57 % 42-75 Automated blood lymphocytes/100 leukocytes 28 % 12-44 Blood monocytes/100 leukocytes 9 % 0-12 Automated blood eosinophils/100 leukocytes 5 % 0-10 Automated blood basophils/100 leukocytes 1 % 0-10 Blood neutrophils automated count (number/volume) 3.4 10*3 1.8-7.8 Blood lymphocytes automated count (number/volume) 1.7 10*3 1.0-4.0 Blood monocytes automated count (number/volume) 0. 5 10*3 0.0-1.0 Automated eosinophil count 0.3 10*3/uL 0 .0-0.3 Automated blood basophil count (count/volume) 0.0 10*3/uL 0.0-0.1 Comprehensive metabolic panel - 10/12/19 04:55 Serum or plasma sodium measurement (moles/volume) 139 mmol/L 135-145 Serum or plasma potassium measurement (moles/volume) 3.8 mmol/L 3.6-5.0 Serum or plasma chloride measurement (moles/volume) 110 mmol/L 98-107 Carbon dioxide 19 mmol/L 21-32 Serum or plasma anion gap determination (moles/volume) 10 mmol/L 5-14 Serum or plasma urea nitrogen measurement (mass/volume ) 13 mg/dL 7-18 Serum or plasma creatinine measurement (mass/volume) 0.95 mg/dL 0.60-1.30 Serum or plasma urea nitrogen/creatinine mass ratio 14 NRG Serum or plasma creatinine measurement w ith calculation of estimated glomerular filtration rate 59 NRG Serum or plasma glucose measurement (mass/volume) 88 mg/dL 70-105 Serum or plasma calcium measurement (mass/volume) 8.9 mg/dL 8.5-10.1 Serum or plasma total bilirubin measurement (mass/volu me) 0.4 mg/dL 0.1-1.0 Serum or plasma alkaline phosphatase marco surement (enzymatic activity/volume) 71 U/L 40-136 Serum or plasma aspartate aminotransfera se measurement (enzymatic activity/volume) 19 U/L 5-34 Serum or plasma alanine aminotransferase measurement (enzymatic activity/volume) 34 U/L 0-55 Serum or plasma protein measurement (mass/volume) 5.9 g/dL 6.4-8.2 Serum or plasma albumin measurement (mass/volume) 3.5 g/dL 3.2-4.5 CALCIUM CORRECTED 9.3 mg/dL 8.5-10.1 Encounters ACCT No. Visit Date/Time Discharge Status Pt. Type Provider Facility Loc./Unit Complaint [id number] 10/15/2019 10:20:00 10/15/2019 23:59: 59 CLS Outpatient TARIQ TATE APRN [facility] [id number] 06/30/2019 08:20:00 Document Registration [id number] 04/21/2019 08:40:00 Document Registration [id number] 03/09/2019 11:20:00 Document Registration [id number] 12/18/2017 13:00:00 Document Registration [id number] 10/08/2019 09:12:00 14:23:00 DIS Inpatient FRANCK TUCKER DO, [facility] 4TH PNA [id number] 09/23/2019 11:51:00 23:59:[address] WALTERS APRN [facility] RAD ASTHMA [id number] 08/29/2019 11:13:00 12:22:00 DIS Emergency NILA LEE APRN [facility] ER FALL - R ARM / RIB PAIN [id number] 08/03/2019 08:49:00 23:59:59 CLS Outpatient DEUCE RUIZ MD [facility] ORTHO [id number] 07/23/2019 09:14:00 13:30:00 DIS Inpatient CELESTE TUCKER [place] [facility] 4TH LLL PNA [id number] 07/22/2019 09:25:00 23:59:59 CLS Preadmit TARIQ TATE CFDOLORES [facility] RAD INJURY OF RT ROTATOR C UFF [id number] 07/10/2019 01:29:00 01:56:00 DIS Emergency KESHAWN KERVIN Nick [facility] ER RT SHOULDER PAIN [id number] 07/02/2019 14:39:00 16:02:00 DIS Emergency NILA LEE APRN [facility] ER R SHOULDER PAIN [id number] 11/26/2018 13:00:00 23:59:59 CLS Preadmit LALITHA SQUIRES DO [facility] J45.909 ASTHMA [id number] 09/24/2018 11:37:00 00:01:00 DIS Outpatient LALITHA SQUIRES DO [facility] J45.909 ASTHMA [id number] 11/11/2018 16:39:00 18:00:00 DIS Emergency NILA LEE APRN [facility] ER FELL [id number] 10/22/2018 10:00:00 23:59:59 CLS Preadmit LALITHA SQUIRES DO [facility] J45.909 ASTHMA [id number] 09/02/2018 09:26:00 23:59:59 CLS Outpatient WERO BARKLEY APRN [facility] RAD SCREENING [id number] 07/31/2018 12:33:00 00:01:00 DIS Outpatient LALITHA SQUIRES DO [facility] J45.909 ASTHMA [id number] 07/02/2018 13:00:00 23:59:59 CLS Preadmit LALITHA SQUIRES DO [facility] ASHTMA,COPD,ALLERGIC RH INITIS [id number] 06/30/2018 12:51:00 018 00:01:00 DIS Outpatient LALITHA SQUIRES DO [facility] ASHTMA,COPD,ALLERGIC RH INITIS [id number] 03/05/2018 12:07:00 018 00:01:00 DIS Outpatient LALITHA SQUIRES DO [facility] ASHA,COPD,ALLERGIC RH INITIS [id number] 11/12/2017 13:18:00 018 00:01:00 DIS Outpatient LALTIHA SQUIRES DO [facility] ASHA,COPD,ALLERGIC RH INITIS [id number] 10/20/2017 18:35:00 017 20:04:00 DIS Emergency KERVIN LIAO DO [facility] ER R SHOULDER/ARM PAIN [id number] 07/22/2017 11:22:00 017 00:01:00 DIS [facility] [id number] 04/26/2017 10:53:00 017 00:01:00 DIS Outpatient [facility] INIT[facility] [id number] 01/22/2017 13:47:00 017 00:01:00 DIS Outpatient [facility] INITIS [id number] 12/29/2016 13:52:00 017 14:56:00 DIS Emergency NILA LEE APRN [facility] ER L HIP AND BACK PAIN [id number] 09/28/2016 11:08:00 016 00:01:00 DIS Outpatient [facility]IT[facility] [id number] 09/24/2016 11:34:00 14:09:00 DIS Emergency OBDULIO FOSTER MD [facility] ER COUGH/CHEST CON GESTION [id number] 09/04/2016 13:47:00 23:59:59 CLS Outpatient YVETTE ROSA [facility] RAD SCREENING [id number] 06/19/2016 19:03:00 21:03:00 DIS Emergency SITA CLARKE [facility] ER R KNEE PAIN [id number] 06/06/2016 11:50:00 00:01:00 DIS Outpatient LALITHA SQUIRES DO [facility] ASHTMA,COPD,ALLERGIC RH INITIS [id number] 02/15/2016 10:42:00 00:01:00 DIS Outpatient LALITHA SQUIRES DO [facility] ASHTMA,COPD,ALLERGIC RH INITIS [id number] 01/28/2016 00:20:00 02:26:00 DIS Emergency KERVIN LIAO DO a [facility] ER VOMITING [id number] 10/26/2015 12:54:00 23:59:59 CLS Outpatient LALITHA SQUIRES DO [facility] ASHTMA,COPD,ALLERGIC RH INITIS [id number] 08/24/2015 10:43:00 23:59:59 CLS Outpatient THEO GIRER APRN [facility] RAD SCREENING [id number] 08/08/2015 19:29:00 22:16:00 DIS Emergency LUZ GOSS MD [facility] ER R SHOULDER PAIN [id number] 06/17/2015 10:57:00 11:07:00 DIS Outpatient LALITHA SQUIRES DO [facility] SLEEP EDS, SNORING, GASPING D URING SLEEP [id number] 06/06/2015 14:10:00 015 23:59:59 CLS Outpatient LALITHA SQUIRES DO [facility] RT COPD ASTHMA OBESITY [id number] 05/24/2015 15:10:00 015 23:59:59 CLS Outpatient LALITHA SQUIRES DO [facility] LAB COPD,ASTHMA,OBESITY [id number] 05/07/2015 18:53:00 015 19:25:00 DIS Emergency NILA LEE APRN [facility] ER DOG BITES INFECTED [id number] 05/02/2015 13:43:00 015 15:21:00 DIS Emergency NILA LEE APRN [facility] ER MULTIPLE DOG BITES [id number] 04/17/2015 18:59:00 20:13:00 DIS Emergency NILA LEE APRN [facility] ER COUGH;SOA [id number] 04/01/2015 13:52:00 015 23:59:59 CLS Outpatient KEON BELLO MD (DDU) [facility] RAD [id number] 03/21/2015 08:59:00 015 23:59:59 CLS Outpatient TARIQ TATE CFNP [facility] RAD COUGH [id number] 02/16/2015 12:16:00 23:59:59 CLS Outpatient TARIQ TATE CFNP [facility] RAD COPD W/PERSISTE NT COUGH [id number] 02/03/2015 15:02:00 17:21:00 DIS Emergency NILA LEE APRN [facility] ER FALL, BACK/TAILBONE COLLIN N [id number] 08/23/2014 11:24:00 23:59:59 CLS Outpatient THEO GRIER DERMATOLOGIST [facility] RAD SCREENING [id number] 07/28/2014 20:35:00 014 23:27:00 DIS Emergency SITA CLARKE [facility] ER HEADACHE [id number] 06/08/2014 19:24:00 014 20:38:00 DIS Emergency JESUS NILA Lopez APRN [facility] ER L SIDE/BACK PAIN [id number] 08/17/2013 09:03:00 013 23:59:59 CLS Outpatient CANDIE HERNANDEZ BUSINESS PROCESS LEAD [facility] RAD ROUTINE [id number] 09/24/2019 09:38:00 Document Registration [id number] 08/24/2015 10:43:00 Document Registration [id number] 12/26/2014 12:34:00 Document Registration [id number] 09/17/2014 11:01:00 Document Registration [id number] 09/17/2014 11:01:00 Document Registration [id number] 02/11/2015 08:47:00 02/11/2015 23:59: 59 CLS Outpatient SHUKLA DODI [id number] 12/07/2014 11:27:00 12/07/2014 23:59: 59 CLS Outpatient SHUKLA DODI [id number] 11/16/2014 10:08:00 11/16/2014 23:59: 59 CLS Outpatient VAZQUEZ DODI [id number] 08/18/2014 10:57:00 08/18/2014 23:59: 59 CLS Outpatient THEO GRIER APRN [id number] 07/29/2014 08:22:00 07/29/2014 23:59: 59 CLS Outpatient SHUKLA DODI [id number] 06/24/2014 11:38:00 06/24/2014 23:59: 59 CLS Outpatient SHUKLA DODI [id number] 06/14/2014 12:13:00 06/14/2014 23:59: 59 CLS Outpatient SUHKLA DODI [id number] 03/24/2014 08:25:00 03/24/2014 23:59: 59 CLS Outpatient VAZQUEZ DODI [id number] 12/10/2013 15:55:00 12/10/2013 23:59: 59 CLS Outpatient TARIQ TATE APRN [id number] 11/12/2013 13:29:00 11/12/2013 23:59: 59 CLS Outpatient DI SHUKLA DO [id number] 10/26/2013 11:48:00 10/26/2013 23:59: 59 CLS Outpatient DI SHUKLA DO [id number] 10/23/2013 00:00:00 10/23/2013 23:59: 59 CLS Outpatient TARIQ TATE APRN [id number] 09/23/2013 09:40:00 09/23/2013 23:59: 59 CLS Outpatient DI SHUKLA DO [id number] 08/19/2013 09:31:00 08/19/2013 23:59: 59 CLS Outpatient DI SHUKLA DO Nick [id number] 12/29/2012 10:08:00 12/29/2012 23:59: 59 CLS Outpatient [id number] 11/07/2012 09:34:00 11/07/2012 23:59: 59 CLS Outpatient [id number] 10/08/2012 08:58:00 10/08/2012 23:59: 59 CLS Outpatient TARIQ TATE APRN [id number] 09/08/2012 09:51:00 09/08/2012 23:59:5 9 CLS Outpatient TARIQ TATE APRN [id number] 07/21/2013 08:46:00 Document Registration [id number] 07/07/2013 08:45:00 Document Registration [id number] 06/05/2013 00:00:00 Document Registration [id number] 04/15/2013 10:45:00 Document Registration [id number] 03/13/2013 09:40:00 Document Registration [id number] 02/19/2013 10:11:00 Document Registration
== END 2019-10-12 14:23 | disposition home or self-care (01) | DRG 871 ==
LOC: EDUNIT# 07:15 → ER 07:16 → 4TH 09:12
PROVIDERS: ADMIT Internal Medicine; ATTEND Internal Medicine
DX: A41.9 Sepsis, unspecified organism (principal); J18.1 Lobar pneumonia, unspecified organism; J44.1 Chronic obstructive pulmonary disease with (acute) exacerbation; E87.2 Acidosis; J30.2 Other seasonal allergic rhinitis; D64.9 Anemia, unspecified; E66.9 Obesity, unspecified; K21.9 Gastro-esophageal reflux disease without esophagitis; F32.9 Major depressive disorder, single episode, unspecified; M19.91 Primary osteoarthritis, unspecified site; Z68.35 Body mass index [BMI] 35.0-35.9, adult
CPT/HCPCS: 36415; 71045; 80053; 81000; 82150; 83605; 83690; 84484; 85007; 85025; 85027; 85610; 85730; 87040; 87081; 87088; 93005; 94640; 94664; 94760; 96361; 96374

== ENCOUNTER 2020-03-11 07:44 | Emergency (ER) | payer SELFPAY ==
[~2020-03-11] VITALS: Ht 157.5 cm; Wt 77.3 kg
[~2020-03-11 07:44] MED LIST changes: +CELE100C PO; -CETI10TA20 PO; +CETI10TA21 PO; -MONT10TA24 PO; +MONT10TA26 PO
[2020-03-11] MEDS ORDERED: RX-ALBUTEROL INHALER (PROAIR) 8.5 GM IH ONE (07:51)
[2020-03-11] MEDS ORDERED: RX-ALBUTEROL INHALER (PROAIR) 8.5 GM IH STA (08:03)
--- NOTE | 2020-03-11 08:10 | ED General ---
General Chief Complaint: Respiratory Problems Stated Complaint: SOA Nursing Triage Note: Pt amb to room #10 with c/o SOA et cough she believes to be r/t asthma. Audible wheezes heard with labored breathing noted. Pt reports symptoms began at approx 0300 on this day. Pt denies fever or any known exposure to COVID-19. Pt reports recent travel to [place], [place], [place], [place], et [place], [place]. Pt reports he sister is under quarentine et was last around her sister 1-2 wks ago. A&OX4. Nursing Sepsis Screen: No Definite Risk Source of Information: Patient Exam Limitations: No Limitations History of Present Illness Date Seen by Provider: March 11, 2020 Time Seen by Provider: 07:50 Initial Comments Here with report of shortness of air that started at about 3 AM. States it feels Like when she had pneumonia last time. She's had 2 admissions for pneumonia over the last 8 months. Has been using her nebulizer at home but has not used it today. States that she got quite short of breath 3 AM. Travel history includes trips to [place], [place] and [place] for supplies and meds. Has a sister that is under quarantine currently. She states that she has not had contact with her for over the last 10-14 days. Denies fevers but has cough, sore throat and shortness of breath. Does have history of asthma. Timing/Duration: 12 Hours Severity: Moderate Associated Systoms: Cough; No Fever/Chills, No Nausea/Vomiting; Shortness of Air; No Weakness Allergies and Home Medications Allergies Coded Allergies: Sulfa (Sulfonamide Antibiotics) (Unverified Allergy, Unknown, 06/08/14) Home Medications Albuterol Sulfate 1 Puff Puff, 2 PUFF IH Q4H PRN for SHORTNESS OF BREATH, (Repor patrick) 1 PUFF = 90 MCG Atorvastatin Calcium 20 Mg Tablet, 20 MG PO HS, (Reported) Celecoxib 100 Mg Capsule, 100 MG PO BID, (Reported) Cetirizine HCl 10 Mg Tablet, 10 MG PO DAILY, (Reported) Fluoxetine HCl 40 Mg Capsule, 80 MG PO DAILY, (Reported) TAKES 2 (40MG) CAPSULES Fluticasone Propionate 16 Gm [place].susp, 2 SPRAYS NS BID PRN for ALLERGIES, (Reported) Fluticasone/Salmeterol 1 Each Blst.w.dev, 1 PUFF IH BID, (Reported) Gabapentin 300 Mg Capsule, 300 MG PO BID, (Reported) Levothyroxine Sodium 25 Mcg Tablet, 37.5 MCG PO DAILY, (Reported) TAKES 1 & 1/2 (25MCG) TABLET Montelukast Sodium 10 Mg Tablet, 10 MG PO HS, (Reported) LAST RECEIVED #90 8-5-19 FROM REPOSITORY Multivitamin 1 Each Tablet, 1 TAB PO DAILY, (Reported) Omeprazole 40 Mg Capsule.dr, 40 MG PO BID, (Reported) Quetiapine Fumarate 100 Mg Tablet, 150 MG PO HS, (Reported) TAKES 1 & 1/2 (100MG) TABLETS Tiotropium [place] 1 Inh Aerp, 1 CAP IH HS, (Reported) Patient Home Medication List Home Medication List Reviewed: Yes Review of Systems Review of Systems Constitutional: see HPI; No chills, No fever, No weakness EENTM: nose congestion, throat pain; No ear pain Respiratory: cough, short of breath, wheezing Cardiovascular: no symptoms reported Gastrointestinal: no symptoms reported Genitourinary: no symptoms reported Musculoskeletal: no symptoms reported Skin: no symptoms reported Psychiatric/Neurological: No Symptoms Reported All Other Systems Reviewed Negative Unless Noted: Yes Past Ffdyjkn-Xixokn-Lobwsk Hx Past Med/Social Hx: Reviewed Nursing Past Med/Soc Hx Patient Social History Alcohol Use: Denies Use Recreational Drug Use: No Smoking Status: Never a Smoker 2nd Hand Smoke Exposure: No Recent Foreign Travel: No Contact w/Someone Who Travel: No Recent Infectious Disease Expo: No Recent Hopitalizations: No Immunizations Up To Date Tetanus Booster (TDap): Unknown Date of Pneumonia Vaccine: Aug 06, 2016 Date of Influenza Vaccine: Aug 04, 2019 Seasonal Allergies Seasonal Allergies: Yes Past Medical History Surgeries: Yes (HIATAL HERNIA REPAIR, CARPAL TUNNEL) Abdominal, Appendectomy, Gallbladder, Hysterectomy, Orthopedic Respiratory: Yes Asthma, COPD Currently Using CPAP: No Currently Using BIPAP: No Cardiac: No Neurological: No 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 Disorders: No [employer] History: Hysterectomy, Menopausal Genitourinary: No Gastrointestinal: Yes Gastroesophageal Reflux Musculoskeletal: Yes Arthritis Endocrine: No HEENT: No Loss of Vision: Bilateral Hearing Impairment: Denies Cancer: No Psychosocial: Yes Anxiety, Depression Integumentary: No Blood Disorders: No Adverse Reaction/Blood Tranf: No Family Medical History Reviewed Nursing Family Hx No Pertinent Family Hx Physical Exam-Suspected Sepsis Physical Exam Vital Signs Vital Signs - First Documented Capillary Refill : Less Than 3 Seconds Blood Pressure Mean: 90 Height, Weight, BMI Height: 5'2.00" Weight: 177lbs. 0oz. [id number]; 31.00 BMI Method:Stated General Appearance: No Apparent Distress, WD/WN HEENT: PERRL/EOMI, Pharynx Normal Neck: Non Tender, Supple Respiratory: No Accessory Muscle Use, Crackles, Expiration, Wheezing (scattered) Cardiovascular: Regular Rate, Rhythm Gastrointestinal: Non Tender, Soft Back: Normal Inspection, No CVA Tenderness, No Vertebral Tenderness Extremity: Normal Inspection, Normal Range of Motion, Non Tender Neurologic/Psychiatric: Alert, Oriented x3 Skin: normal color, warm/dry Focused Exam Lactate Level 03/11/20 08:02: Lactic Acid Level 1.86 Lactic Acid Level Laboratory Tests Test 03/11/20 08:02 Lactic Acid Level 1.86 MMOL/L (0.50-2.00) Progress/Results/Core Measures Suspected Sepsis Recent Fever Within 48 Hours: No Infection Criteria Present: Suspected New Infection New/Unexplained Altered Menta: No Sepsis Screen: No Definite Risk SIRS Temperature: Pulse: 90 Respiratory Rate: 25 Laboratory Tests 03/11/20 08:02: White Blood Count 8.8 Blood Pressure 110 /80 Mean: 90 03/11/20 08:02: Lactic Acid Level 1.86 Laboratory Tests 03/11/20 08:02: Creatinine 0.96, INR Comment 0.9, Platelet Count 232, Total Bilirubin 0.4 Results/Orders Lab Results Laboratory Tests Test 03/11/20 08:02 03/11/20 08:20 03/11/20 09:10 Range/Units White Blood Count 8.8 4.3-11.0 10^3/uL Red Blood Count 4.61 4.35-5.85 10^6/uL Hemoglobin 13.4 11.5-16.0 G/DL Hematocrit 41 35-52 % Mean Corpuscular Volume 89 80-99 FL Mean Corpuscular Hemoglobin 29 25-34 PG Mean Corpuscular Hemoglobin Concent 33 32-36 G/DL Red Cell Distribution Width 14.3 10.0-14.5 % Platelet Count 232 130-400 10^3/uL Mean Platelet Volume 10.2 7.4-10.4 FL Neutrophils (%) (Auto) 77 H 42-75 % Lymphocytes (%) (Auto) 17 12-44 % Monocytes (%) (Auto) 4 0-12 % Eosinophils (%) (Auto) 2 0-10 % Basophils (%) (Auto) 0 0-10 % Neutrophils # (Auto) 6.7 1.8-7.8 X 10^3 Lymphocytes # (Auto) 1.5 1.0-4.0 X 10^3 Monocytes # (Auto) 0.4 0.0-1.0 X 10^3 Eosinophils # (Auto) 0.2 0.0-0.3 10^3/uL Basophils # (Auto) 0.0 0.0-0.1 10^3/uL Erythrocyte Sedimentation Rate 7 0-30 MM/HR Prothrombin Time 12.0 L 12.2-14.7 SEC INR Comment 0.9 0.8-1.4 Activated Partial Thromboplast Time 28 24-35 SEC D-Dimer 0.45 0.00-0.49 UG/ML Sodium Level 143 135-145 MMOL/L Potassium Level 3.3 L 3.6-5.0 MMOL/L Chloride Level 109 H 98-107 MMOL/L Carbon Dioxide Level 23 21-32 MMOL/L Anion Gap 11 5-14 MMOL/L Blood Urea Nitrogen 11 7-18 MG/DL Creatinine 0.96 0.60-1.30 MG/DL Estimat Glomerular Filtration Rate 59 BUN/Creatinine Ratio 11 Glucose Level 111 H 70-105 MG/DL Lactic Acid Level 1.86 0.50-2.00 MMOL/L Calcium Level 9.3 8.5-10.1 MG/DL Corrected Calcium 9.4 8.5-10.1 MG/DL Total Bilirubin 0.4 0.1-1.0 MG/DL Aspartate Amino Transf (AST/SGOT) 23 5-34 U/L Alanine Aminotransferase (ALT/SGPT) 33 0-55 U/L Alkaline Phosphatase 79 40-136 U/L Lactate Dehydrogenase 200 125-220 U/L C-Reactive Protein High Sensitivity 0.13 0.00-0.50 MG/DL Total Protein 6.3 L 6.4-8.2 GM/DL Albumin 3.9 3.2-4.5 GM/DL Procalcitonin 0.02 <0.10 NG/ML Urine Color YELLOW Urine Clarity CLEAR Urine pH 6.0 5-9 Urine Specific [place] 1.020 1.016-1.022 Urine Protein NEGATIVE NEGATIVE Urine Glucose (UA) NEGATIVE NEGATIVE Urine Ketones NEGATIVE NEGATIVE Urine Nitrite NEGATIVE NEGATIVE Urine Bilirubin NEGATIVE NEGATIVE Urine Urobilinogen 0.2 < = 1.0 MG/DL Urine Leukocyte Esterase TRACE H NEGATIVE Urine RBC (Auto) NEGATIVE NEGATIVE Urine RBC RARE /HPF Urine WBC 0-2 /HPF Urine Squamous Epithelial Cells RARE /HPF Urine Crystals NONE /LPF Urine Bacteria NEGATIVE /HPF Urine Casts NONE /LPF Urine Mucus NEGATIVE /LPF Urine Culture Indicated CULTURE PENDING My Orders Orders - LUZ GOSS MD Rx-Albuterol Inhaler (Rx-Proair) (03/11/20 07:51) Cbc With Automated Diff (03/11/20 08:01) Comprehensive Metabolic Panel (03/11/20 08:01) Blood Culture (03/11/20 08:01) Sputum Culture (03/11/20 08:01) Urinalysis (03/11/20 08:01) Urine Culture (03/11/20 08:01) Protime With Inr (03/11/20 08:01) Partial Thromboplastin Time (03/11/20 08:01) Chest 1 View, Ap/Pa Only (03/11/20 08:01) Ed Iv/Invasive Line Start (03/11/20 08:01) Vital Signs Adult Sepsis Patie Q15M (03/11/20 08:01) O2 (03/11/20 08:01) Remove Rings In Anticipation O (03/11/20 08:01) Lactic Acid Analyzer (03/11/20 08:01) Fibrin Degradation Products (03/11/20 08:01) Procalcitonin (Pct) (03/11/20 08:01) Hs C Reactive Protein (03/11/20 08:01) Erythrocyte Sedimentation Rate (03/11/20 08:01) LDH (03/11/20 08:01) Coronavirus Sars-Cov-2 So 2018 (03/11/20 08:01) Rx-Albuterol Inhaler (Rx-Proair) (03/11/20 08:03) Cefdinir Capsule (Omnicef Capsule) (03/11/20 09:45) Azithromycin Tablet (Zithromax Tablet) (03/11/20 09:35) Vital Signs/I&O 03/11/20 03/11/20 07:45 07:45 Temp 36.6 Pulse 90 Resp 25 B/P (MAP) 110/80 (90) Pulse Ox 97 97 O2 Delivery Nasal Cannula Nasal Cannula O2 Flow Rate 2.00 2.00 Capillary Refill : Less Than 3 Seconds Blood Pressure Mean: 90 Progress Note : Progress Note Seen and evaluated. IV, labs, chest x-ray, COVID-19 screening, blood cultures and lactic acid ordered. Albuterol MDI 2 puffs times one now. Sepsis order set initiated. Monitor patient. 0939: Question pneumonia on chest x-ray. Labs okay at this point. This is probably more related to asthma but given her history of previous pneumonia over the last several months we will go ahead and treat this. I think patient is safe for treatment outpatient. Cefdinir 300 mg by mouth, azithromycin 500 mg by mouth and prednisone 40 mg by mouth given. Discharged home with return precautions. Patient verbalize understanding instructions and agreement with plan. Patient understands COVID instructions. Diagnostic Imaging Diagonstic Imaging: Xray Plain Films/CT/US/NM/MRI: chest Comments [facility], [facility]. [place], [place] NAME: DEON SERVIN [facility] REC#: [id number] PT STATUS: REG ER : 1955 PHYSICIAN: LUZ GOSS MD ADMIT DATE: 03/11/20/ER Signed Date of Exam:03/11/20 CHEST 1 VIEW, AP/PA ONLY CLINICAL INDICATION: Patient shortness of air and cough. Patient believes to be related to asthma. EXAM: Portable chest x-ray upright view. COMPARISONS: Chest x-ray dated 10/08/2019. FINDINGS: Lungs/pleura: There is interval development of mild bibasilar atelectasis, but superimposed infiltrate cannot be completely excluded. Otherwise, lungs are clear. There is no pneumothorax. There is no pleural effusion. Mediastinum: Unremarkable. Pulmonary vasculature: Unremarkable. Heart: Unremarkable. Bones/extrathoracic soft tissue: There is right curvature of the thoracic spine. IMPRESSION: There is interval development of mild bibasilar atelectasis, but superimposed infiltrate cannot be completely excluded. Dictated by: Dictated on workstation # [id number] Dict: 03/11/20840 Trans: 03/11/20919 [id number] Interpreted by: ETHAN GUERRA MD Electronically signed by: ETHAN GUERRA MD 03/11/20919 Reviewed: Reviewed by Me Departure Impression Primary Impression: Pneumonia of both lower lobes Qualified Codes: J18.1 - Lobar pneumonia, unspecified organism Additional Impressions: Asthma exacerbation Qualified Codes: J45.21 - Mild intermittent asthma with (acute) exacerbation COVID 19 evaluation Disposition: 01 HOME, SELF-CARE Condition: Improved Departure-Patient Inst. Decision time for Depature: 09:41 Referrals: [facility] (PCP/Family) Primary Care Physician Patient Instructions: Asthma, Adult (DC), Coronavirus Disease 2019 (COVID-19) (DC), Pneumonia, Adult (DC) Add. Discharge Instructions: All discharge instructions reviewed with patient and/or family. Voiced understanding. Take medications as directed. Follow-up with your early next week for recheck. You are being investigated for COVID-19. As such, you are under quarantine until you get results and her cleared. If your negative, you will be contacted and he may follow standard precautions for pneumonia. If you are positive, the health department will contact you and you will need to follow their directions. At a minimum you should refrain from contact with other people for 7 days and 3 days after symptoms are resolved including no fever for 3 days without anti-fever medicines. Drink plenty of fluids. Return for worse pain, p ersistent fever, vomiting, weakness, breathing problems or other concerns as needed. Use your albuterol nebulizer every 4 hours or the albuterol metered-dose inhaler 2 puffs every 4 hours as needed for the next few days to control asthma and breathing symptoms. Scripts Prednisone (Prednisone) 20 Mg Tab 40 MG PO DAILY, #8 TAB 0 Refills Prov: LUZ GOSS MD 03/11/20 Cefdinir (Cefdinir) 300 Mg Capsule 300 MG PO BID, #13 CAP 0 Refills Prov: LUZ GOSS MD 03/11/20 Azithromycin (Azithromycin) 250 Mg Tablet 250 MG PO DAILY, #4 TAB 0 Refills Prov: LUZ GOSS MD 03/11/20 LUZ GOSS MD March 11, 2020 08:09
--- NOTE | 2020-03-11 08:10 | NUR ---
[facility].
[2020-03-11 08:17] LABS: BASOPHILS % (AUTO) 0 % (0-10); EOSINOPHILS # (AUTO) 0.2 10^3/uL (0.0-0.3); EOSINOPHILS % (AUTO) 2 % (0-10); HEMATOCRIT 41 % (35-52); HEMOGLOBIN 13.4 G/DL (11.5-16.0); LYMPHOCYTES # (AUTO) 1.5 X 10^3 (1.0-4.0); LYMPHOCYTES % (AUTO) 17 % (12-44); MEAN CORPUSCULAR HEMOGLOBIN 29 PG (25-34); MEAN CORPUSCULAR HGB CONC 33 G/DL (32-36); MEAN CORPUSCULAR VOLUME 89 FL (80-99); MEAN PLATELET VOLUME 10.2 FL (7.4-10.4); MONOCYTES # (AUTO) 0.4 X 10^3 (0.0-1.0); MONOCYTES % (AUTO) 4 % (0-12); NEUTROPHILS # (AUTO) 6.7 X 10^3 (1.8-7.8); NEUTROPHILS % (AUTO) 77 % (42-75); PLATELET COUNT 232 10^3/uL (130-400); RED CELL DISTRIBUTION WIDTH 14.3 % (10.0-14.5); WHITE BLOOD COUNT 8.8 10^3/uL (4.3-11.0)
[2020-03-11 08:31] LABS: ALBUMIN 3.9 GM/DL (3.2-4.5); POTASSIUM 3.3 MMOL/L (3.6-5.0)
[2020-03-11 08:32] LABS: CALCIUM 9.3 MG/DL (8.5-10.1)
[2020-03-11 08:34] LABS: TOTAL PROTEIN 6.3 GM/DL (6.4-8.2)
[2020-03-11 08:35] LABS: BILIRUBIN,TOTAL 0.4 MG/DL (0.1-1.0)
[2020-03-11 08:37] LABS: CREATININE SERUM 0.96 MG/DL (0.60-1.30)
--- NOTE | 2020-03-11 08:52 | Diagnostic Imaging Report ---
CLINICAL INDICATION: Patient shortness of air and cough. Patient believes to be related to asthma. EXAM: Portable chest x-ray upright view. COMPARISONS: Chest x-ray dated 10/08/2019. FINDINGS: Lungs/pleura: There is interval development of mild bibasilar atelectasis, but superimposed infiltrate cannot be completely excluded. Otherwise, lungs are clear. There is no pneumothorax. There is no pleural effusion. Mediastinum: Unremarkable. Pulmonary vasculature: Unremarkable. Heart: Unremarkable. Bones/extrathoracic soft tissue: There is right curvature of the thoracic spine. IMPRESSION: There is interval development of mild bibasilar atelectasis, but superimposed infiltrate cannot be completely excluded. Dictated by: Dictated on workstation # [id number]
[2020-03-11 08:55] LABS: FIBRIN DEGRADATION PRODUCTS 0.45 UG/ML (0.00-0.49); INR 0.9 (0.8-1.4)
[2020-03-11 08:56] LABS: ERYTHROCYTE SEDIMENTATION RATE 7 MM/HR (0-30)
[2020-03-11 09:18] LABS: BILIRUBIN,URINE NEGATIVE (NEGATIVE); CLARITY,URINE CLEAR; COLOR,URINE YELLOW; GLUCOSE, URINE (UA) NEGATIVE (NEGATIVE); KETONES,URINE NEGATIVE (NEGATIVE); LEUKOCYTE ESTERASE ,URINE TRACE (NEGATIVE); NITRITE,URINE NEGATIVE (NEGATIVE); PROTEIN,URINE NEGATIVE (NEGATIVE)
[2020-03-11 09:28] LABS: BACTERIA,URINE NEGATIVE /HPF; RBC,URINE RARE /HPF; WBC,URINE 0-2 /HPF
[2020-03-11 09:29] LABS: SQUAMOUS EPITHELIAL CELL,UR RARE /HPF
[2020-03-11] MEDS ORDERED: AZITHROMYCIN 250 MG TAB (ZITHROMAX) PO STA (09:35)
[2020-03-11] MEDS ORDERED: CEFDINIR 300 MG (OMNICEF) CAP PO ONE (09:45)
[2020-03-11] MEDS ORDERED: CEFD300C3 PO (09:45)
[2020-03-11] MEDS ORDERED: predniSONE 20 MG TAB PO ONE (09:45)
[2020-03-11] MEDS ORDERED: AZIT250T12 PO (09:45)
[2020-03-11] MEDS ORDERED: PRD20T PO (09:45)
[2020-03-11 10:05] VITALS: BP 125/86
== END 2020-03-11 10:05 | disposition home or self-care (01) ==
LOC: EDUNIT# 07:44 → ER 07:45
DX: J18.9 Pneumonia, unspecified organism (principal); J45.901 Unspecified asthma with (acute) exacerbation; J44.0 Chronic obstructive pulmonary disease with (acute) lower respiratory infection; K21.9 Gastro-esophageal reflux disease without esophagitis; F41.9 Anxiety disorder, unspecified; F32.9 Major depressive disorder, single episode, unspecified; Z88.2 Allergy status to sulfonamides; Z11.59 Encounter for screening for other viral diseases; Z79.51 Long term (current) use of inhaled steroids
CPT/HCPCS: 36415; 71045; 80053; 81000; 83605; 83615; 84145; 85025; 85379; 85610; 85652; 85730; 86141; 87040; 87088; 87635

== ENCOUNTER 2020-03-30 07:01 | Inpatient (IN) | payer OTHER ==
[2020-03-30] VITALS (8 sets, daily range): BP systolic 91–132; BP diastolic 50–92
[~2020-03-30] VITALS: Ht 157.5 cm; Wt 88.3 kg
--- OUTSIDE RECORDS SUMMARY | 2020-03-30 07:09 | XMS REPORT ---
Author Author Devi TATE Organization [address] Address [address] [place] [address] Care Team Providers Care Machine Cell Tuber Name Role Phone TARIQ TATE Unavailable PROBLEMS Type Condition ICD9-CM Code DTF57-QL Code Onset Dates Condition S tatus SNOMED Code Problem Osteoarthritis of both knees, unspecified osteoarthritis t ype M17.0 Active 774993296 Problem Other depression F32.8 Active 354 37873 Problem Hip bursitis, left M70.72 Active 8 2305529 Problem Chronic obstructive pulmonary disease, unspecified COPD ty pe J44.9 Active 13312673 Problem Arthralgia of right temporomandibular joint M26.62 Active 82536379 Problem Psychophysiological insomnia F51.04 A ctive 612286765 Problem Hypothyroidism, unspecified type E03.9 Active 90579931 Problem Hypothyroidism, unspecified type E03.9 Active 44952695 Problem Chronic obstructive pulmonary disease with acute exacerbat ion J44.1 Active 259946668 Problem Moderate episode of recurrent major depressive disorder F33.1 Active 990723174 Problem Seasonal allergic rhinitis, unspecified trigger J3 0.2 Active 454846827 Problem Sciatic leg pain M54.30 Active 230 15085 Problem Mixed hyperlipidemia E78.2 Active 825164071 Problem Mixed hyperlipidemia E78.2 Active 733474680 Problem Other chronic pain G89.29 Active 8 1700027 Problem Chronic obstructive pulmonary disease with acute exacerbat ion J44.1 Active 094801582 ALLERGIES No Information ENCOUNTERS Encounter Location Date Diagnosis [place] [address] [id number] [place] [address] March, [place] [address] [id number] [place] [address] March, [address] [id number] [place] [address] March, [facility]upa [place] [address] [id number] [place] [address] March, [facility] [address] [place] [address] [id number] [place] [address] March, Seasonal allergic rhinitis, unspecified trigger J30.2 [facility] [place] [address] [id number] [place] [id number] March, Chronic obstructive pulmonary disease, u nspecified COPD type J44.9 [facility] Rupa [place] [address] [id number] [place] [address] Feb, Psychophysiological insomnia F51.04 [facility] [address] [id number] [facility] [place] [place] [id number] Feb, Chronic obstructive pulmonary disease, u nspecified COPD type J44.9 [facility] [place] [address] [id number] [place] [address] Feb, [facility] [place] [address] [id number] [place] [id number] Feb, Moderate episode of recurrent major depr essive disorder F33.1 [facility] Rupa [place] [address] [id number] [place] [address] Jan, [facility] [place] [address] [id number] [place] [address] Jan, Chronic obstructive pulmonary disease, u nspecified COPD type J44.9 [facility] [place] [address] [id number] [place] [address] Jan, Moderate episode of recurrent major depr essive disorder F33.1 [facility] [address] [place] [address] [id number] [place] [address] Dec, Seasonal allergic rhinitis, unspecified trigger J30.2 [facility] Rupa [place] [address] [id number] [place] [address] Dec, Moderate episode of recurrent major depr essive disorder F33.1 [facility] [address] [place] [address] [id number] [place] [address] 17 Dec, 2019 Chronic obstructive pulmonary disease, u nspecified COPD type J44.9 and Cough R05 [facility] [address] [place] [address] [id number] [place] [address] 10 Dec, 2019 Chronic obstructive pulmonary disease wi th acute exacerbation J44.1 and Chronic obstructive pulmonary disease, unspecified COPD type J44.9 [facility] [address] [place] [address] [id number] [place] [address] Nov, [facility] [address] [place] [address] [id number] [place] [address] Nov, [facility] [place] [address] [id number] [place] [id number] Oct, Community acquired pneumonia, unspecifie d laterality J18.9 [facility] [place] [address] [id number] [place] [id number] Oct, Community acquired pneumonia, unspecifie d laterality J18.9 and Chronic obstructive pulmonary disease with acute exacerbation J44.1 [facility] [place] [address] [id number] [place] [id number] Oct, [facility] [place] [address] [id number] [place] [id number] Oct, [facility] [place] [address] [id number] [place] [id number] Oct, Hip bursitis, left M70.72 ; Pain in righ t shoulder M25.511 ; Other chronic pain G89.29 and Moderate episode of recurrent major depressive disorder F33.1 [facility] [place] [address] [id number] [place] [id number] Sep, Encounter for immunization Z23 [facility] [place] [address] [id number] [place] [id number] Sep, [facility] [place] [address] [id number] [place] [id number] Sep, Chronic obstructive pulmonary disease, u nspecified COPD type J44.9 [facility] [place] [address] [id number] [place] [id number] Sep, Moderate episode of recurrent major depr essive disorder F33.1 [facility] [place] [address] [id number] [place] [id number] Aug, Acute pain of right shoulder M25.511 and Injury of right rotator cuff, subsequent encounter S46.001D [facility] [place] [address] [id number] [place] [id number] Aug, [facility] [place] [address] [id number] [place] [id number] Aug, Moderate episode of recurrent major depr essive disorder F33.1 and Chronic obstructive pulmonary disease, unspecified COPD type J44.[address] [facility] [address] [id number] [place] [id number] Jul, Injury of right rotator cuff, subsequent encounter S46.001D ; Sciatic leg pain M54.30 and Acute pain of right shoulder M25.[address] [facility] [address] [id number] [place] [id number] Jul, [facility] [place] [address] [id number] [place] [id number] Jul, Community acquired pneumonia of left low er lobe of lung J18.[address] [facility] [address] [id number] [place] [id number] Jul, [facility] [place] [address] [id number] [place] [id number] Jul, Injury of right rotator cuff, subsequent encounter S46.001D [facility] [address] [id number] [place] [id number] Jul, [facility] [place] [address] [id number] [place] [id number] Jul, [facility] [place] [address] [id number] [place] [id number] Jul, Screening for thyroid disorder Z13.[address] [facility] [address] [id number] [place] [id number] Jun, Right shoulder pain, unspecified chronic ity M25.511 and Injury of right shoulder, initial encounter S49.91XA [facility] [place] [address] [id number] [place] [id number] Jun, Right shoulder pain, unspecified chronic ity M25.511 and Injury of right shoulder, initial encounter S49.91XA [facility] [place] [address] [id number] [place] [id number] Jun, Moderate episode of recurrent major depr essive disorder F33.1 ; Chronic obstructive pulmonary disease, unspecified COPD type J44.9 ; Mixed hyperlipidemia E78.2 and Hypothyroidism, unspecified type E03.9 [facility] [place] [address] [id number] [place] [id number] Jun, Chronic obstructive pulmonary disease, u nspecified COPD type J44.9 [place] [address] [id number] [place] [id number] May, Contusion of right knee, initial encount er S80.01XA [facility] [place] [address] [id number] [place] [id number] May, Moderate episode of recurrent major depr essive disorder F33.1 ; Chronic obstructive pulmonary disease, unspecified COPD type J44.9 and Sciatic leg pain M54.30 [facility] [address] [id number] [place] [id number] May, [facility] [address] [id number] [place] [id number] Apr, Urinary frequency R35.0 [facility] [place] [address] [id number][place] [id number] Apr, [facility] [place] [address] [id number] [place] [id number] March, Contusion of right knee, initial encount er S80.01XA and Chronic obstructive pulmonary disease, unspecified COPD type J44.9 [facility] [address] [id number] [place] [id number] March, Moderate episode of recurrent major depr essive disorder F33.1 and Urinary frequency R35.0 [facility] [address] [id number] [place] [id number] Feb, [facility] [address] [id number] [place] [id number] Feb, Chronic obstructive pulmonary disease, u nspecified COPD type J44.9 [facility] [address] [id number] [place] [id number] Feb, Dysuria R30.0 [facility] [address] [id number] [place] [id number] Feb, Moderate episode of recurrent major depr essive disorder F33.1 [facility] [address] [id number] [place] [id number] Jan, Moderate episode of recurrent major depr essive disorder F33.1 ; Chronic obstructive pulmonary disease, unspecified COPD type J44.9 ; Psychophysiological insomnia F51.04 ; Sciatic leg pain M54.30 and Contusion of right knee, initial encounter S80.01XA [facility] [address] [id number] [place] [id number] Dec, Chronic obstructive pulmonary disease, u nspecified COPD type J44.9 [facility] [address] [id number] [place] [id number] Nov, Chronic obstructive pulmonary disease, u nspecified COPD type J44.9 [facility] [address] [id number] [place] [id number] Nov, Contusion of right knee, initial encount er S80.01XA [facility] [address] [id number] [place] [id number] Nov, Osteoarthritis of both knees, unspecifie d osteoarthritis type M17.0 ; Sciatic leg pain M54.30 and Moderate episode of recurrent major depressive disorder F33.1 [facility] [address] [id number] [place] [id number] Oct, Psychophysiological insomnia F51.04 [facility] [address] [id number] [place] [id number] Sep, [facility] [place] [facility] [address] [id number] [facility] [id number] Sep, [facility] [place] [address] [id number] [place] [id number] Sep, Psychophysiological insomnia F51.04 [facility] [place] [address] [id number] [place] [id number] Aug, Breast cancer screening Z12.31 [facility] [place] [address] [id number] [place] [id number] Aug, [facility] [address] [id number] [place] [address] Aug, [facility] [place] [address] [id number] [place] [id number] Jul, [facility] [place] [address] [id number] [place] [id number] Jul, Chronic obstructive pulmonary disease, u nspecified COPD type J44.9 ; Osteoarthritis of both knees, unspecified osteoarthritis type M17.0 ; Moderate episode of recurrent major depressive disorder F33.1 and Sciatic leg pain M54.30 [facility] [place] [address] [id number] [place] [id number] Jun, Moderate episode of recurrent major depr essive disorder F33.1 ; Sciatic leg pain M54.30 and Chronic obstructive pulmonary disease, unspecified COPD type J44.9 [facility] [address] [id number] [place] [id number] Jun, [facility] [place] [address] [id number] [place] [id number] May, Sciatic leg pain M54.30 [facility] [place] [address] [id number] [place] [id number] May, Chronic obstructive pulmonary disease, u nspecified COPD type J44.9 [facility] [place] [address] [id number] [place] [id number] May, [facility] [address] [id number] [place] [id number] Apr, Moderate episode of recurrent major depr essive disorder F33.1 ; Sciatic leg pain M54.30 and Chronic obstructive pulmonary disease, unspecified COPD type J44.9 [facility] [place] [address] [id number] [place] [id number] March, [facility] [place] [address] [id number] [place] [id number] Feb, Sciatic leg pain M54.30 [facility] [address] [id number] [place] [id number] Feb, [facility] [place] [address] [id number] [place] [id number] Dec, Moderate episode of recurrent major depr essive disorder F33.1 ; Sciatic leg pain M54.30 ; Chronic obstructive pulmonary disease, unspecified COPD type J44.9 and Screening for thyroid disorder Z13.29 [facility] [place] [address] [id number] [place] [id number] Dec, Chronic obstructive pulmonary disease, u nspecified COPD type J44.9 [facility] [place] [address] [id number] [place] [id number] Nov, Sciatic leg pain M54.30 [facility] [address] [id number] [place] [id number] Oct, [facility] [place] [address] [id number] [place] [id number] Oct, Acute pain of right shoulder M25.511 [facility] [place] [address] [id number] [place] [id number] Oct, Chronic obstructive pulmonary disease, u nspecified COPD type J44.9 [facility] [place] [address] [id number] [place] [id number] Oct, [facility] [place] [address] [id number] [place] [id number] Sep, Chronic obstructive pulmonary disease, u nspecified COPD type J44.9 and Sciatic leg pain M54.30 [facility] [place] [address] [id number] [place] [id number] Aug, Moderate episode of recurrent major depr essive disorder F33.1 and Chronic obstructive pulmonary disease, unspecified COPD type J44.9 [facility] [address] [id number] [place] [id number] Aug, Moderate episode of recurrent major depr essive disorder F33.1 [facility] [place] [address] [id number] [place] [id number] Jul, Other depression F32.8 and Chronic obstr uctive pulmonary disease, unspecified COPD type J44.9 [facility] [place] [address] [id number] [place] [id number] Jul, Moderate episode of recurrent major depr essive disorder F33.1 [facility] [address] [id number] [place] [id number] Jun, [facility] [place] [address] [id number] [place] [id number] Jun, Moderate episode of recurrent major depr essive disorder F33.1 [facility] [place] [address] [id number] [place] [id number] Jun, Moderate episode of recurrent major depr essive disorder F33.1 [facility] [place] [address] [id number] [place] [id number] Jun, [facility] [place] [address] [id number] [place] [id number] Jun, Sciatic leg pain M54.30 [facility] [place] [address] [id number] [place] [id number] Jun, [facility] [place] [address] [id number] [place] [id number] May, Screening for thyroid disorder Z13.29 an d Screening for lipid disorders Z13.220 [facility] [place] [address] [id number] [place] [id number] May, Other depression F32.8 [facility] [place] [address] [id number] [place] [id number] Apr, Sciatic leg pain M54.30 [facility] [place] [address] [id number] [place] [id number] Apr, Screening for lipid disorders Z13.220 ; Screening for thyroid disorder Z13.29 and Chronic obstructive pulmonary disease, unspecified COPD type J44.9 [facility] [place] [address] [id number] [place] [id number] Apr, Screening for lipid disorders Z13.220 ; Screening for thyroid disorder Z13.29 and Chronic obstructive pulmonary disease, unspecified COPD type J44.9 [facility] [place] [address] [id number] [place] [id number] Apr, [facility] [place] [address] [id number] [place] [id number] Apr, Chronic obstructive pulmonary disease, u nspecified COPD type J44.9 [facility] [place] [address] [place], [place] [address] [id number] [place] [address] March, [facility] [place] [address] [id number] [place] [id number] March, Sciatic leg pain M54.30 and Other depres kobe F32.8 [facility] [place] [address] [id number] [place] [id number] March, [facility] [place] [address] [id number] [place] [id number] Jan, Other depression F32.8 and Sciatic leg p ain M54.30 [facility] [place] [address] [id number] [place] [id number] Jan, Sciatic leg pain M54.30 [facility] [place] [address] [id number] [place] [id number] Dec, Other depression F32.8 [facility] [place] [address] [id number] [place] [id number] Dec, Chronic obstructive pulmonary disease, u nspecified COPD type J44.9 [facility] [place] [address] [id number] [place] [id number] Nov, [facility] [place] [address] [id number] [place] [id number] Oct, Other depression F32.8 and Chronic obstr uctive pulmonary disease, unspecified COPD type J44.9 [facility] [place] [address] [id number] [place] [id number] Aug, [facility] [place] [address] [id number] [place] [id number] Aug, Other depression F32.8 ; Arthralgia of r ight temporomandibular joint M26.62 and Encounter for immunization Z23 [facility] [place] [address] [id number] [place] [id number] Aug, Encounter for well woman exam Z01.419 [facility] [place] [address] [id number] [place] [id number] Jul, Other depression F32.8 and Arthralgia of right temporomandibular joint M26.62 [facility] [place] [address] [id number] [place] [id number] Jun, [facility] [id number] [place] [address] Jun, [facility] [place] [address] [id number] [place] [id number] Jun, [facility] [place] [address] [id number] [place] [id number] Jun, Other depression F32.8 and Urinary tract infection without hematuria, site unspecified N39.0 [facility] [place] [address] [id number] [place] [id number] Apr, [facility] [place] [address] [id number] [place] [id number] Apr, Dysuria R30.0 [facility] [address] [id number] [place] [address] March, [facility] [place] [address] [id number] [place] [id number] March, Urinary tract infection, site unspecifie d N39.0 [facility] [place] [address] [id number] [place] [id number] March, Urinary tract infection, site unspecifie d N39.0 [facility] [place] [address] [id number] [place] [id number] Feb, [facility] [place] [address] [id number] [place] [id number] Feb, Headache R51 and Ear pain H92.09 [facility] [place] [address] [id number] [place] [id number] Jan, Osteoarthritis of both knees, unspecifie d osteoarthritis type M17.0 and Hip bursitis, left M70.72 [facility] [place] [address] [id number] [place] [id number] Jan, [facility] [place] [address] [id number] [place] [id number] Dec, Unspecified arthropathy, site unspecifie d 716.90 and COPD (chronic obstructive pulmonary disease) 496 [facility] [place] [address] [id number] [place] [id number] Dec, [facility] [place] [address] [id number] [place] [id number] Nov, [facility] [place] [address] [id number] [place] [id number] Oct, [facility] [place] [address] [id number] [place] [id number] Sep, [facility] [place] [address] [id number] [place] [id number] Sep, [facility] [place] [address] [id number] [place] [id number] Aug, [facility] [place] [address] [id number][place] [id number] Aug, [facility] [place] [address] [id number] [place] [id number] Aug, Urinary tract infection N39.0 and Should er strain, right, initial encounter S46.911A [facility] [place] [address] [id number] [place] [id number] Aug, Screening breast examination Z12.39 and Encounter for immunization Z23 [facility] [place] [address] [id number] [place] [id number] Aug, Negrita SOLOMON [address] [id number] JOSE ROBERT [id number] Aug, [facility] [place] [address] [id number] [place] [id number] Jul, [facility] [place] [address] [id number] [place] [id number] Jun, [facility] [place] [address] [id number] [place] [id number] Jun, Allergic rhinitis, cause unspecified 477 .9 and Cough 786.2 [facility] [place] [address] [id number] [place] [id number] May, [facility] [place] [address] [id number] [place] [id number] May, [facility] [place] [address] [id number] [place] [id number] May, Visit for suture removal V58.32 [facility] [place] [address] [id number] [place] [id number] May, Dog bite 879.8 [facility] [place] [address] [id number] [place] [id number] Apr, Rib pain on right side 786.50 [facility] [place] [address] [id number] [place] [id number] Apr, [facility] [place] [address] [id number] [place] [id number] Apr, Allergic rhinitis, cause unspecified 477 .9 and Cough 786.2 [facility] [place] [address] [id number] [place] [id number] March, [facility] [place] [address] [id number] [place] [id number] March, [facility] [place] [address] [id number] [place] [id number] March, [facility] [place] [address] [id number] [place] [id number] March, [facility] [place] [address] [id number] [place] [id number] March, Cough 786.2 and Shortness of breath 786. 05 [facility] [place] [address] [id number] [place] [id number] March, [facility] [place] [address] [facility] [id number] [place] [id number] March, Cough 786.2 ; COPD (chronic obstructive pulmonary disease) 496 and Allergic rhinitis, cause unspecified 477.9 [facility] [place] [address] [facility] [id number] [place] [id number] Feb, Allergic rhinitis, cause unspecified 477 .9 ; Cough 786.2 and COPD (chronic obstructive pulmonary disease) 496 [facility] [address] [facility] [id number] [address] [place] [address] Feb, [facility] [address] [place] [id number] [address] [place] [address] Feb, [facility] [address] [place] [id number] [address] [place] [address] Jan, [facility] [address] [facility] [id number] [address] [place] [phone] Jan, [facility] [address] [facility] [id number] [address] [place] [id number] Jan, [facility] [address] [facility] [id number] [place] [id number] Jan, [facility] [address] [facility] [id number] [address] [place] [phone] Jan, [facility] [address] [facility] [id number] [place] [id number] Dec, [facility] [address] [facility] [id number] [address] [place] [phone] Dec, [facility] [address] [facility] [id number] [place], [place] [id number] Dec, [facility] [address] [facility] [id number] [address] [place] [id number] Dec, [facility] [place] [address] [id number] [place] [id number] Dec, [facility] [place] [facility] [address] [id number] [address] [place] [address], [place] [address] Dec, [facility] [place] [facility] [address] [id number] [address] [place] [address], [place] [address] Dec, [facility] [place] [address] [id number] [place] [id number] Nov, [facility] [place] [facility] [address] [id number] [address] [place] [address], [place] [address] Nov, [facility] [place] [facility] [address] [id number] [address] [place] [address], [place] [address] Nov, [facility] [place] [address] [id number] [place] [id number] Nov, [facility] [place] [facility] [address] [id number] [address] [place] [address], [place] [address] Nov, [facility] [place] [address] [id number] [place] [id number] Oct, [facility] [place] [facility] [address] [id number] [address] [place] [address], [place] [address] Oct, [facility] [place] [address] [id number] [place] [id number] Sep, [facility] [place] [facility] [address] [id number] [address] [place] [address], [place] [address] Sep, [facility] [place] [address] [id number] [place] [id number] Sep, [facility] [place] [facility] [address] [id number] [address] [place] [address], [place] [address] Sep, [facility] [place] [address] [id number] [place] [id number] Aug, [facility] [place] [facility] [address] [id number] [address] [place] [address], [place] [address] Aug, [facility] [place] [address] [id number] [place] [id number] Aug, [facility] [place] [facility] [address] [id number] [address] [place] [address], [place] [address] Aug, [facility] [place] [facility] [address] [id number] [address] [place] [address], [place] [address] Jul, [facility] [place] [address] [id number] [place] [id number] Jul, [facility] [place] [address] [id number] [place] [id number] Jul, [facility] [place] [address] [id number] [place] [id number] Jul, [facility] [place] [facility] [address] [id number] [address] [place] [address], [place] [address] Jul, [facility] [place] [facility] [address] [id number] [address] [place] [address], [place] [address] Jul, [facility] [place] [facility] [address] [id number] [address] [place] [address], [place] [address] Jul, [facility] [place] [facility] [address] [id number] [address] [place] [address], [place] [address] Jul, [facility] [place] [address] [id number] [place] [id number] Jun, [facility] [place] [facility] [address] [id number] [address] [place] [address] Jun, [facility] [place] [facility] [address] [id number] [address] [place] [address], [place] [address] Jun, [facility] [place] [address] [id number] [place] [id number] Jun, [facility] [place] [facility] [address] [id number] [address] [place] [address], [place] [address] Jun, [facility] [place] [address] [id number] [place] [id number] Jun, [facility] [place] [facility] [address] [id number] [address] [place] [address], [place] [address] Jun, [facility] [place] [address] [id number] [place] [id number] Apr, [facility] [place] [facility] [address] [id number] [address] [place] [address], [place] [address] Apr, [facility] [place] [address] [id number] [place] [id number] Apr, [facility] [place] [facility] [address] [id number] [address] [place] [address], [place] [address] Apr, [facility] [place] [address] [id number] [place] [id number] Apr, [facility] [place] [facility] [address] [id number] [address] [place] [address], [place] [address] Apr, [facility] [place] [facility] [address] [facility] [id number] [address] [place] [address], [place] [address] March, [facility] [place] [facility] [address] [id number] [address] [place] [address], [place] [address] March, [facility] [place] [address] [id number] [place] [id number] March, [facility] [place] [address] [id number] [place] [id number] Feb, [facility] [place] [facility] [address] [facility] [id number] [address] [place] [address], [place] [address] Feb, [facility] [place] [address] [id number] [place] [id number] Jan, [facility] [place] [facility] [address] [id number] [address] [place] [address], [place] [address] Jan, [facility] [place] [address] [id number] [place] [id number] Dec, [facility] [place] [facility] [address] [id number] [address] [place] [address], [place] [address] Dec, [facility] [place] [address] [id number] [place] [id number] Dec, [facility] [place] [facility] [address] [id number] [address] [place] [address] Dec, [facility] [place] [facility] [address] [id number] [address] [place] [address], [place] [address] Dec, [facility] [place] [facility] [address] [id number] [address] [place] [address], [place] [address] Dec, [facility] [place] [address] [id number] [place] [id number] Nov, [facility] [place] [facility] [address] [id number] [address] [place] [address], [place] [address] Nov, [facility] [place] [address] [id number] [place] [id number] Nov, [facility] [place] [facility] [address] [facility] [id number] [address] [place] [address], [place] [address] Nov, [facility] [place] [address] [id number] [place] [id number] Nov, [facility] [place] [facility] [address] [id number] [address] [place] [address], [place] [address] Nov, [facility] [place] [address] [id number] [place] [id number] Oct, [facility] [place] [facility] [address] [facility] [id number] [address] [place] [address] Oct, [facility] [place] [facility] [address] [id number] [address] [place] [address] Oct, [facility] [place] [address] [id number] [place] [id number] Oct, [facility] [place] [facility] [address] [id number] [address] [place] [address], [place] [address] Sep, [facility] [place] [facility] [address] [id number] [address] [place] [address] Sep, [facility] [place] [address] [id number] [place] [id number] Sep, [facility] [place] [facility] [address] [id number] [place] [address] Sep, [facility] [place] [address] [id number] [place] [id number] Aug, [facility] [address] [facility] [id number] [place] [address] Aug, [facility] [place] [address] [id number] [place] [id number] Jul, [facility] [place] [address] [id number] [place] [id number] Jul, [facility] [place] [address] [id number] [place] [id number] Jun, [facility] [place] [address] [id number] [place] [id number] May, [facility] [place] [address] [id number] [place] [id number] May, [facility] [address] [facility] [id number] [place] [address] May, [facility] [place] [address] [id number] [place] [id number] Apr, [facility] [place] [address] [id number] [place] [id number] Apr, [facility] [place] [address] [id number] [place] [id number] March, [facility] [place] [address] [id number] [place] [id number] Feb, [facility] [place] [address] [id number] [place] [id number] Feb, [facility] [place] [address] [id number] [place] [id number] Jan, [facility] [place] [address] [id number] [place] [id number] Jan, [facility] [place] [address] [id number] [place] [id number] Dec, [facility] [place] [address] [id number] [place] [id number] Nov, [facility] [place] [facility] [address] [id number] [address] [place] [address], [place] [address] Oct, [facility] [place] [facility] [address] [id number] [address] [place] [address], [place] [address] Oct, [facility] [place] [address] [id number] [place] [id number] Oct, [facility] [place] [facility] [address] [id number] [address] [place] [address], [place] [address] Oct, [facility] [place] [facility] [address] [id number] [address] [place] [address], [place] [address] Oct, [facility] [place] [address] [id number] [place] [id number] Oct, [facility] [place] [address] [id number] [place] [id number] Sep, [facility] [address] [facility] [id number] [address] [place] [address], [place] [address] Sep, [facility] [place] [address] [id number] [place] [id number] Sep, [facility] [place] [facility] [address] [id number] [address] [place] [address], [place] [address] Sep, [facility] [place] [address] [id number] [place] [id number] Aug, [facility] [place] [facility] [address] [id number] [address] [place] [address], [place] [address] Aug, [facility] [place] [address] [id number] [place] [id number] Aug, [facility] [place] [address] [id number] [place] [id number] Jun, [facility] [place] [address] [id number] [place] [id number] Jun, [facility] [place] [facility] [address] [id number] [address] [place] [address], [place] [address] May, [facility] [place] [address] [id number] [place] [id number] Apr, [facility] [address] [id number] [place] [id number] March, [facility] [address] [facility] [id number] [place] [id number] Feb, [facility] [address] [facility] [id number] [place] [id number] Jan, [facility] [address] [facility] [id number] [place] [id number] Nov, [facility] [address] [facility] [id number] [address] [place] [address] Sep, [facility] [address] [facility] [id number] [address] [place] [address] Sep, [facility] [address] [facility] [id number] [address] [place] [address] Aug, [facility] [address] [place] [id number] [address] [place] [address] Apr, [facility] [address] [place] [id number] [address] [place] [address] March, IMMUNIZATIONS No Known Immunizations SOCIAL HISTORY Never Assessed REASON FOR VISIT PLAN OF CARE VITAL SIGNS Height 62.5 in 2013-04-15 Weight 168.8 lbs 2013-04-15 Temperature 97.5 degrees Fahrenheit 2013-04-15 Heart Rate 74 bpm 2013-04-15 Respiratory Rate 16 2013-04-15 Blood pressure systolic 120 mmHg 2013-04-15 Blood pressure diastolic 60 mmHg 2013-04-15 MEDICATIONS Unknown Medications RESULTS No Results PROCEDURES No Known procedures INSTRUCTIONS MEDICATIONS ADMINISTERED No Known Medications MEDICAL (GENERAL) HISTORY Type Description Date Medical History acid reflux Medical History hernia- Hiatel dx in 1999 Medical History asthma Medical History seasonal allergies Medical History chronic obstructive pulmonary disease (C OPD) Medical History last mammogram 2014 reported as normal Medical History Depression Surgical History Bladder tied up 1999 Surgical History Post Cholecystectomy 1999 Surgical History Neuroplasty with transportat ion of median nerve at carpal tunnel right wrist Unknown Surgical History appendectomy 1999 Surgical History hysterectomy, total with bilateral salpi mallory-oophorectomy (BSO) 2001 Hospitalization History surgeries Hospitalization History ER for left hip pain 12/2016 Hospitalization History ER via sweta shoulder pain 019
--- OUTSIDE RECORDS SUMMARY | 2020-03-30 07:09 | XMS REPORT ---
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9 Active 00978417 Problem Hypothyroidism, unspecified type E03.9 Active 00683109 Problem Chronic obstructive pulmonary disease with acute exacerbat ion J44.1 Active 004727667 Problem Moderate episode of recurrent major depressive disorder F33.1 Active 898946900 Problem Seasonal allergic rhinitis, unspecified trigger J3 0.2 Active 924297891 Problem Sciatic leg pain M54.30 Active 230 31894 Problem Mixed hyperlipidemia E78.2 Active 705112219 Problem Mixed hyperlipidemia E78.2 Active 988478592 Problem Other chronic pain G89.29 Active 8 0625204 Problem Chronic obstructive pulmonary disease with acute exacerbat ion J44.1 Active 173571983 ALLERGIES No Information ENCOUNTERS Encounter Location Date Diagnosis [address] [id number] [place] [address] March, [place] [address] [id number] [place] [address] Feb, Psychophysiological insomnia F51.[address] [place] [id number] [id number] Feb, Chronic obstructive pulmonary disease, u nspecified COPD type J44.9 [facility] [address] [place] [address] [id number] [place] [address] Feb, [facility] [place] [address] [id number] [place] [id number] Feb, Moderate episode of recurrent major depr essive disorder F33.1 [facility] [address] [place] [address] [id number] [place] [address] Jan, [facility] [address] [place] [address] [id number] [place] [address] Jan, Chronic obstructive pulmonary disease, u nspecified COPD type J44.9 [facility] [address] [place] [address] [id number] [place] [address] Jan, Moderate episode of recurrent major depr essive disorder F33.1 [facility] [address] [place] [address] [id number] [place] [address] Dec, Seasonal allergic rhinitis, unspecified trigger J30.2 [facility] [address] [place] [address] [id number] [place] [address] 18 Dec, 2019 Moderate episode of recurrent major depr essive disorder F33.1 [facility] [address] [place] [address] [id number] [place] [address] 17 Dec, 2019 Chronic obstructive pulmonary disease, u nspecified COPD type J44.9 and Cough R05 [facility] [address] [place] [address] [id number] [place] [address] 10 Dec, 2019 Chronic obstructive pulmonary disease wi th acute exacerbation J44.1 and Chronic obstructive pulmonary disease, unspecified COPD type J44.9 [facility] [address] [place] [address] [id number] [place] [address] Nov, [facility] [address] [place] [address] [id number] [place] [address] Nov, [facility] [place] [address] [facility] [address] [id number] [place] [address] Oct, Community acquired pneumonia, unspecifie d laterality J18.9 [facility] [place] [address] [id number] [place] [id number] Oct, Community acquired pneumonia, unspecifie d laterality J18.9 and Chronic obstructive pulmonary disease with acute exacerbation J44.1 [facility] [place] [address] [id number] [place] [id number] Oct, [facility] [place] [address] [id number] [place] [id number] Oct, [facility] [place] [address] [id number] [place] [id number] Oct, Hip bursitis, left M70.72 ; Pain in righ t shoulder M25.511 ; Other chronic pain G89.29 and Moderate episode of recurrent major depressive disorder F33.1 [facility] [place] [address] [id number] [place] [id number] Sep, Encounter for immunization Z23 [facility] [place] [address] [id number] [place] [id number] Sep, [facility] [place] [address] [id number] [place] [id number] Sep, Chronic obstructive pulmonary disease, u nspecified COPD type J44.9 [facility] [place] [address] [id number] [place] [id number] Sep, Moderate episode of recurrent major depr essive disorder F33.1 [facility] [place] [address] [id number] [place] [id number] Aug, Acute pain of right shoulder M25.511 and Injury of right rotator cuff, subsequent encounter S46.001D [facility] [place] [address] [id number] [place] [id number] Aug, [facility] [place] [address] [id number] [place] [id number] Aug, Moderate episode of recurrent major depr essive disorder F33.1 and Chronic obstructive pulmonary disease, unspecified COPD type J44.9 [facility] [address] [id number] [place] [address] 30 Jul, 2019 Injury of right rotator cuff, subsequent encounter S46.001D ; Sciatic leg pain M54.30 and Acute pain of right shoulder M25.511 [facility] [address] [id number] [place] [address] Jul, [facility] [place] [address] [id number] [place] [id number] Jul, Community acquired pneumonia of left low er lobe of lung J18.1 [facility] [address] [id number] [place] [address] Jul, [facility] [place] [address] [id number] [place] [id number] Jul, Injury of right rotator cuff, subsequent encounter S46.001D [facility] [address] [id number] [address] Jul, [facility] [place] [address] [id number] [place] [id number] Jul, [facility] [place] [address] [id number] [place] [id number] Jul, Screening for thyroid disorder Z13.29 [facility] [address] [id number][place] [address] Jun, Right shoulder pain, unspecified chronic ity M25.511 and Injury of right shoulder, initial encounter S49.91XA [facility] [place] [address] [id number] [place] [id number] Jun, Right shoulder pain, unspecified chronic ity M25.511 and Injury of right shoulder, initial encounter S49.91XA [facility] [place] [address] [id number] [place] [id number] Jun, Moderate episode of recurrent major depr essive disorder F33.1 ; Chronic obstructive pulmonary disease, unspecified COPD type J44.9 ; Mixed hyperlipidemia E78.2 and Hypothyroidism, unspecified type E03.9 [facility] [place] [address] [id number] [place] [id number] Jun, Chronic obstructive pulmonary disease, u nspecified COPD type J44.9 [facility] [place] [address] [id number] [place] [id number] May, Contusion of right knee, initial encount er S80.01XA [facility] [place] [address] [id number] [place] [id number] May, Moderate episode of recurrent major depr essive disorder F33.1 ; Chronic obstructive pulmonary disease, unspecified COPD type J44.9 and Sciatic leg pain M54.30 [facility] [place] [address] [id number] [place] [id number] May, [facility] [place] [address] [id number] [place] [id number] Apr, Urinary frequency R35.0 [facility] [place] [address] [facility] [address] [id number] [place] [address] Apr, [facility] [place] [address] [id number] [place] [id number] March, Contusion of right knee, initial encount er S80.01XA and Chronic obstructive pulmonary disease, unspecified COPD type J44.9 [facility] [place] [address] [id number] [place] [id number] March, Moderate episode of recurrent major depr essive disorder F33.1 and Urinary frequency R35.0 [facility] [place] [address] [id number] [place] [id number] Feb, [facility] [place] [address] [id number] [place] [id number] Feb, Chronic obstructive pulmonary disease, u nspecified COPD type J44.9 [facility] [place] [address] [id number] [place] [id number] Feb, Dysuria R30.0 [facility] [place] [address] [id number] [place] [id number] Feb, Moderate episode of recurrent major depr essive disorder F33.1 [facility] [place] [address] [id number] [place] [id number] Jan, Moderate episode of recurrent major depr essive disorder F33.1 ; Chronic obstructive pulmonary disease, unspecified COPD type J44.9 ; Psychophysiological insomnia F51.04 ; Sciatic leg pain M54.30 and Contusion of right knee, initial encounter S80.01XA [facility] [place] [address] [id number] [place] [id number] Dec, Chronic obstructive pulmonary disease, u nspecified COPD type J44.9 [facility] [place] [address] [id number] [place] [id number] Nov, Chronic obstructive pulmonary disease, u nspecified COPD type J44.9 [facility] [place] [address] [id number] [place] [id number] Nov, Contusion of right knee, initial encount er S80.01XA [facility] [place] [address] [id number] [place] [id number] Nov, Osteoarthritis of both knees, unspecifie d osteoarthritis type M17.0 ; Sciatic leg pain M54.30 and Moderate episode of recurrent major depressive disorder F33.1 [facility] [place] [address] [id number] [place] [id number] Oct, Psychophysiological insomnia F51.04 [facility] [place] [address] [id number] [place] [id number] Sep, [facility] [address] [id number] [id number] Sep, [facility] [place] [address] [id number] [place] [id number] Sep, Psychophysiological insomnia F51.04 [facility] [place] [address] [id number] [place] [id number] Aug, Breast cancer screening Z12.31 [facility] [place] [address] [id number] [place] [id number] Aug, [facility] [address] [id number] 100KS [place] [address] Aug, [facility] [place] [address] [id number] [place] [id number] Jul, [facility] [place] [address] [id number] [place] [id number] Jul, Chronic obstructive pulmonary disease, u nspecified COPD type J44.9 ; Osteoarthritis of both knees, unspecified osteoarthritis type M17.0 ; Moderate episode of recurrent major depressive disorder F33.1 and Sciatic leg pain M54.30 [facility] [place] [address] [id number] [place] [id number] Jun, Moderate episode of recurrent major depr essive disorder F33.1 ; Sciatic leg pain M54.30 and Chronic obstructive pulmonary disease, unspecified COPD type J44.9 [facility] [place] [address] [id number] [place] [id number] Jun, [facility] [place] [address] [id number] [place] [id number] May, Sciatic leg pain M54.30 [facility] [place] [address] [id number] [place] [id number] May, Chronic obstructive pulmonary disease, u nspecified COPD type J44.[address] [facility] [address] [id number] [place] [facility] [place] [id number] May, [facility] [place] [address] [id number] [place] [id number] Apr, Moderate episode of recurrent major depr essive disorder F33.1 ; Sciatic leg pain M54.30 and Chronic obstructive pulmonary disease, unspecified COPD type J44.9 [facility] [place] [address] [id number] [place] [id number] March, [facility] [place] [address] [id number] [place] [id number] Feb, Sciatic leg pain M54.[address] [facility] [address] [id number] [place] [id number] Feb, [facility] [place] [address] [id number] [place] [id number] Dec, Moderate episode of recurrent major depr essive disorder F33.1 ; Sciatic leg pain M54.30 ; Chronic obstructive pulmonary disease, unspecified COPD type J44.9 and Screening for thyroid disorder Z13.29 [facility] [place] [address] [id number] [place] [id number] Dec, Chronic obstructive pulmonary disease, u nspecified COPD type J44.9 [facility] [place] [address] [id number] [place] [id number] Nov, Sciatic leg pain M54.30 [facility] [place] [id number] [place] [address] Oct, [facility] [place] [address] [id number] [place] [id number] Oct, Acute pain of right shoulder M25.511 [facility] [place] [address] [id number] [place] [id number] Oct, Chronic obstructive pulmonary disease, u nspecified COPD type J44.9 [facility] [place] [address] [id number] [place] [id number] Oct, [facility] [place] [address] [id number] [place] [id number] Sep, Chronic obstructive pulmonary disease, u nspecified COPD type J44.9 and Sciatic leg pain M54.30 [facility] [place] [address] [id number] [place] [id number] Aug, Moderate episode of recurrent major depr essive disorder F33.1 and Chronic obstructive pulmonary disease, unspecified COPD type J44.9 [facility] [address] [id number] [place] [id number] Aug, Moderate episode of recurrent major depr essive disorder F33.1 [facility] [place] [address] [id number] [place] [id number] Jul, Other depression F32.8 and Chronic obstr uctive pulmonary disease, unspecified COPD type J44.9 [facility] [place] [address] [id number] [place] [id number] Jul, Moderate episode of recurrent major depr essive disorder F33.1 [facility] [place] [id number] [place] [id number] Jun, [facility] [place] [address] [id number] [place] [id number] Jun, Moderate episode of recurrent major depr essive disorder F33.1 [facility] [place] [address] [id number] [place] [id number] Jun, Moderate episode of recurrent major depr essive disorder F33.1 [facility] [place] [address] [id number] [place] [id number] Jun, [facility] [place] [address] [id number] [place] [id number] Jun, Sciatic leg pain M54.30 [facility] [place] [address] [id number] [place] [id number] Jun, [facility] [place] [address] [id number] [place] [id number] May, Screening for thyroid disorder Z13.29 an d Screening for lipid disorders Z13.220 [facility] [place] [address] [id number] [place] [id number] May, Other depression F32.8 [facility] [place] [address] [id number] [place] [id number] Apr, Sciatic leg pain M54.30 [facility] [place] [address] [id number] [place] [id number] Apr, Screening for lipid disorders Z13.220 ; Screening for thyroid disorder Z13.29 and Chronic obstructive pulmonary disease, unspecified COPD type J44.9 [facility] [place] [address] [id number] [place] [id number] Apr, Screening for lipid disorders Z13.220 ; Screening for thyroid disorder Z13.29 and Chronic obstructive pulmonary disease, unspecified COPD type J44.9 [facility] [place] [address] [id number] [place] [id number] Apr, [facility] [place] [address] [id number] [place] [id number] Apr, Chronic obstructive pulmonary disease, u nspecified COPD type J44.9 [facility] [place] [facility] RAMIREZ [id number] [place] [address] March, [facility] [place] [address] [id number] [place] [id number] March, Sciatic leg pain M54.30 and Other depres kobe F32.8 [facility] [place] [address] [id number] [place] [id number] March, [facility] [place] [address] [id number] [place] [id number] Jan, Other depression F32.8 and Sciatic leg p ain M54.30 [facility] [place] [address] [id number] [place] [id number] Jan, Sciatic leg pain M54.30 [facility] [place] [address] [id number] [place] [id number] Dec, Other depression F32.8 [facility] [place] [address] [id number] [place] [id number] Dec, Chronic obstructive pulmonary disease, u nspecified COPD type J44.9 [facility] [place] [address] [id number] [place] [id number] Nov, [facility] [place] [address] [id number] [place] [id number] Oct, Other depression F32.8 and Chronic obstr uctive pulmonary disease, unspecified COPD type J44.9 [facility] [place] [address] [id number] [place] [id number] Aug, [facility] [place] [address] [id number] [place] [id number] Aug, Other depression F32.8 ; Arthralgia of r ight temporomandibular joint M26.62 and Encounter for immunization Z23 [facility] [place] [address] [id number] [place] [id number] 10 Aug, 2016 Encounter for well woman exam Z01.419 [facility] [place] [address] [id number] [place] [id number] 07 Jul, 2016 Other depression F32.8 and Arthralgia of right temporomandibular joint M26.62 [facility] [place] [address] [id number] [place] [id number] Jun, [facility] [place] [address] [id number] [place] [address] Jun, [facility] [place] [address] [id number] [place] [id number] Jun, [facility] [place] [address] [id number] [place] [id number] Jun, Other depression F32.8 and Urinary tract infection without hematuria, site unspecified N39.0 [facility] [place] [address] [id number] [place] [id number] Apr, [facility] [place] [address] [id number] [place] [id number] Apr, Dysuria R30.0 [facility] [address] [id number] 100[place] [address] March, [facility] [place] [address] [id number] [place] [id number] March, Urinary tract infection, site unspecifie d N39.0 [facility] [place] [address] [id number] [place] [id number] March, Urinary tract infection, site unspecifie d N39.0 [facility] [place] [address] [id number] [place] [id number] Feb, [facility] [place] [address] [id number] [place] [id number] Feb, Headache R51 and Ear pain H92.09 [facility] [place] [address] [id number] [place] [id number] Jan, Osteoarthritis of both knees, unspecifie d osteoarthritis type M17.0 and Hip bursitis, left M70.72 [facility] [place] [address] [id number] [place] [id number] Jan, [facility] [place] [address] [id number] [place] [id number] Dec, Unspecified arthropathy, site unspecifie d 716.90 and COPD (chronic obstructive pulmonary disease) 496 [facility] [place] [address] [id number] [place] [id number] Dec, [facility] [place] [address] [id number] [place] [id number] Nov, [facility] [place] [address] [id number] [place] [id number] Oct, [facility] [place] [address] [id number] [place] [id number] Sep, [facility] [place] [address] [id number] [place] [id number] Sep, [facility] [place] [address] [id number] [place] [id number] Aug, [address] [id number] [address] Aug, [facility] [address] [id number] [place] [id number] Aug, Urinary tract infection N39.0 and Should er strain, right, initial encounter S46.911A [facility] [address] [id number] [place] [id number] Aug, Screening breast examination Z12.39 and Encounter for immunization Z23 [facility] [address] [id number] [place] [id number] Aug, [facility] [place] [address] [facility] [id number] [id number] Aug, [facility] [place] [address] [id number] [place] [id number] Jul, [facility] [place] [address] [id number] [place] [id number] Jun, [facility] [place] [address] [id number] [place] [id number] Jun, Allergic rhinitis, cause unspecified 477 .9 and Cough 786.2 [facility] [place] [address] [id number] [place] [id number] May, [facility] [place] [address] [id number] [place] [id number] May, [facility] [address] [id number] [place] [id number] May, Visit for suture removal V58.32 [facility] [place] [address] [id number] [place] [id number] May, Dog bite 879.8 [facility] [place] [address] [id number] [place] [id number] Apr, Rib pain on right side 786.50 [facility] [address] [id number] [place] [id number] Apr, [facility] [address] [id number] [place] [id number] Apr, Allergic rhinitis, cause unspecified 477 .9 and Cough 786.2 [facility] [address] [id number] [place] [id number] March, [facility] [address] [id number] [place] [id number] March, [facility] [address] [id number] [place] [id number] March, [facility] [place] [address] [id number] [place] [id number] March, [facility] [place] [address] [id number] [place] [id number] March, Cough 786.2 and Shortness of breath 786. 05 [facility] [address] [id number] [place] [id number] March, [facility] [place] [address] [id number] [place] [id number] March, Cough 786.2 ; COPD (chronic obstructive pulmonary disease) 496 and Allergic rhinitis, cause unspecified 477.9 [facility] [address] [facility] [id number] [place] [id number] Feb, Allergic rhinitis, cause unspecified 477 .9 ; Cough 786.2 and COPD (chronic obstructive pulmonary disease) 496 [facility] [address] [facility] [id number] 100[place], [place] [address] Feb, [facility] [place] [facility] [address] [id number] [address] [place] [address], [place] [address] Feb, [facility] [place] [facility] [address] [id number] [address] [place] [id number] Jan, [facility] [place] [facility] [address] [id number] [address] [place] [address], [place] [address] Jan, [facility] [place] [facility] [address] [id number] [address] [place] [address], [place] [address] Jan, [facility] [place] [address] [id number] [place] [id number] Jan, [facility] [place] [facility] [address] [id number] [address] [place] [address], [place] [address] Jan, [facility] [place] [address] [id number] [place] [id number] Dec, [facility] [place] [facility] [address] [id number] [address] [place] [address], [place] [address] Dec, [facility] [place] [address] [id number] [place] [id number] Dec, [facility] [place] [facility] [address] [id number] [address] [place] [address], [place] [address] Dec, [facility] [place] [address] [id number] [place] [id number] Dec, [facility] [place] [facility] [address] [id number] [address] [place] [id number] Dec, [facility] [place] [facility] [address] [id number] [address] [place] [address], [place] [address] Dec, [facility] [place] [address] [id number] [place] [id number] Nov, [facility] [place] [facility] [address] [id number] [address] [place] [address], [place] [id number] Nov, [facility] [address] [id number] [address] [place] [address] Nov, [facility] [place] [address] [id number] [place] [id number] Nov, [facility] [address] [id number] [address] [place] [address], [place] [address] Nov, [facility] [place] [address] [id number] [place] [id number] Oct, [facility] [address] [id number] [address] [place] [address], [place] [address] Oct, [facility] [place] [address] [id number] [place] [id number] Sep, [facility] [address] [id number] [address] [place] [address] Sep, [facility] [place] [address] [id number] [place] [id number] Sep, [facility] [address] [facility] [id number] [address] [place] [address] Sep, [facility] [place] [address] [id number] [place] [id number] Aug, [facility] [address] [facility] [id number] [address] [place] [address] Aug, [facility] [place] [address] [id number] [place] [id number] Aug, [facility] [address] [facility] [id number] [address] [place] [address] Aug, [facility] [address] [id number] [address] [place] [address], [place] [address] Jul, [facility] [place] [address] [id number] [place] [id number] Jul, [facility] [place] [address] [id number] [place] [id number] Jul, [facility] [place] [address] [id number] [place] [id number] Jul, [facility] [address] [id number] [address] [place] [address] Jul, [facility] [address] [id number] [address] [place] [address], [place] [address] Jul, [facility] [address] [id number] [address] [place] [address], [place] [address] Jul, [facility] [address] [id number] [address] [place] [address], [place] [address] Jul, [facility] [place] [address] [id number] [place] [id number] Jun, [facility] [address] [id number] [address] [place] [address], [place] [address] Jun, [facility] [address] [id number] [address] [place] [address], [place] [address] Jun, [facility] [place] [address] [id number] [place] [id number] Jun, [facility] [address] [id number] [address] [place] [address], [place] [address] Jun, [facility] [place] [address] [id number] [place] [id number] Jun, [facility] [address] [id number] [address] [place] [address] Jun, [facility] [place] [address] [id number] [place] [id number] Apr, [facility] [address] [id number] [address] [place] [address], [place] [address] Apr, [facility] [place] [address] [id number] [place] [id number] Apr, [facility] [address] [id number] [address] [place] [address], [place] [address] Apr, [facility] [place] [address] [id number] [place] [id number] Apr, [facility] [address] [id number] [address] [place] [address] Apr, [facility] [address] [id number] [address] [place] [address] March, [facility] [address] [id number] [address] [place] [address], [place] [address] March, [facility] [place] [address] [id number] [place] [id number] March, [facility] [place] [address] [id number] [place] [id number] Feb, [facility] [address] [id number] [address] [place] [address], [place] [address] Feb, [facility] [place] [address] [id number] [place] [id number] Jan, [facility] [address] [facility] [id number] [address] [place] [address] Jan, [facility] [place] [address] [id number] [place] [id number] Dec, [facility] [address] [id number] [address] [place] [address] Dec, [facility] [place] [address] [id number] [place] [id number] Dec, [facility] [address] [facility] [id number] [address] [place] [id number] Dec, [facility] [address] [facility] [id number] [address] [place] [address] Dec, [facility] [address] [facility] [id number] [address] [place] [address] Dec, [facility] [place] [address] [id number] [place] [id number] Nov, [facility] [address] [id number] [address] [place] [address] Nov, [facility] [place] [address] [id number] [place] [id number] Nov, [facility] [address] [facility] [id number] [address] [place] [address] Nov, [facility] [place] [address] [id number] [place] [id number] Nov, [facility] [address] [facility] [id number] [address] [place] [address] Nov, [facility] [place] [address] [id number] [place] [id number] Oct, [facility] [address] [facility] [id number] [address] [place] [address] Oct, [facility] [address] [facility] [id number] [address] [place] [address] Oct, [facility] [place] [address] [id number] [place] [id number] Oct, [facility] [address] [facility] [id number] [address] [place] [address] Sep, [facility] [address] [facility] [id number] [address] [place] [address] Sep, [facility] [place] [address] [id number] [place] [id number] Sep, [facility] [address] [facility] [id number] [address] [place] [address] Sep, [facility] [place] [address] [id number] [place] [id number] Aug, [facility] [address] [facility] [id number] [address] [place] [address] Aug, [facility] [place] [address] [id number] [place] [id number] Jul, [facility] [place] [address] [id number] [place] [id number] Jul, [facility] [place] [address] [id number] [place] [id number] Jun, [facility] [place] [address] [id number] [place] [id number] May, [facility] [place] [address] [id number] [place] [id number] May, [facility] [address] [facility] [id number] [address] [place] [address] May, [facility] [place] [address] [id number] [place] [id number] Apr, [facility] [place] [address] [id number] [place] [id number] Apr, [facility] [place] [address] [id number] [place] [id number] March, [facility] [place] [address] [id number] [place] [id number] Feb, [facility] [place] [address] [id number] [place] [id number] Feb, [facility] [place] [address] [id number] [place] [id number] Jan, [facility] [place] [address] [id number] [place] [id number] Jan, [facility] [place] [address] [id number] [place] [id number] Dec, [facility] [place] [address] [id number] [place] [id number] Nov, [facility] [address] [facility] [id number] [address] [place] [address] Oct, [facility] [address] [facility] [id number] [address] [place] [address] Oct, [facility] [place] [address] [id number] [place] [id number] Oct, [facility] [address] [facility] [id number] [address] [place] [address] Oct, [facility] [address] [facility] [id number] [address] [place] [address] Oct, [facility] [place] [address] [id number] [place] [id number] Oct, [facility] [place] [address] [id number] [place] [id number] Sep, [facility] [address] [id number] [address] [place] [address], [place] [address] Sep, [facility] [place] [address] [id number] [place] [id number] Sep, [facility] [address] [facility] [id number] [address] [place] [address] Sep, [facility] [place] [address] [id number] [place] [id number] Aug, [facility] [address] [id number] [address] [place] [address], [place] [address] Aug, [facility] [place] [address] [id number] [place] [id number] Aug, [facility] [place] [address] [id number] [place] [id number] Jun, [facility] [place] [address] [id number] [place] [id number] Jun, [facility] [address] [id number] [address] [place] [address], [place] [address] May, [facility] [place] [address] [id number] [place] [id number] Apr, [facility] [place] [address] [id number] [place] [id number] March, [facility] [place] [address] [id number] [place] [id number] Feb, [facility] [place] [address] [id number] [place] [id number] Jan, [facility] [place] [address] [id number] [place] [id number] Nov, [facility] [address] [id number] [address] [place] [address], [place] [address] Sep, [facility] [address] [facility] [id number] [address] [place] [address] Sep, [facility] [address] [facility] [id number] [address], [place] [address] Aug, [facility] [address] [facility] [id number] [address] [place] [address] Apr, [facility] [address] [facility] [id number] [address] [place] [id number] March, IMMUNIZATIONS No Known Immunizations SOCIAL HISTORY Never Assessed REASON FOR VISIT PLAN OF CARE VITAL SIGNS Height 62 in 2014-12-21 Weight 173 lbs 2014-12-21 Temperature 98.8 degrees Fahrenheit 2014-12-21 Heart Rate 88 bpm 2014-12-21 Respiratory Rate 20 2014-12-21 Blood pressure systolic 130 mmHg 2014-12-21 Blood pressure diastolic 70 mmHg 2014-12-21 MEDICATIONS Unknown Medications RESULTS No Results PROCEDURES [...]
--- OUTSIDE RECORDS SUMMARY | 2020-03-30 07:09 | XMS REPORT ---
Author Author Devi TATE Organization [facility] [address] Address [address] [place] [address] Care Team Providers Care Spares Scheduler Name Role Phone TARIQ TATE Unavailable PROBLEMS Type Condition ICD9-CM Code TOR16-QM Code Onset Dates Condition S tatus SNOMED Code Problem Osteoarthritis of both knees, unspecified osteoarthritis t ype M17.0 Active 935512107 Problem Other depression F32.8 Active 354 90044 Problem Hip bursitis, left M70.72 Active 8 2566484 Problem Chronic obstructive pulmonary disease, unspecified COPD ty pe J44.9 Active 06036455 Problem Arthralgia of right temporomandibular joint M26.62 Active 34748997 Problem Psychophysiological insomnia F51.04 A ctive 747131732 Problem Hypothyroidism, unspecified type E03.9 Active 06549434 Problem Hypothyroidism, unspecified type E03.9 Active 43253236 Problem Chronic obstructive pulmonary disease with acute exacerbat ion J44.1 Active 091147883 Problem Moderate episode of recurrent major depressive disorder F33.1 Active 386641929 Problem Seasonal allergic rhinitis, unspecified trigger J3 0.2 Active 398791159 Problem Sciatic leg pain M54.30 Active 230 38336 Problem Mixed hyperlipidemia E78.2 Active 665670963 Problem Mixed hyperlipidemia E78.2 Active 735993949 Problem Other chronic pain G89.29 Active 8 0440940 Problem Chronic obstructive pulmonary disease with acute exacerbat ion J44.1 Active 934278501 ALLERGIES No Information ENCOUNTERS Encounter Location Date Diagnosis [address] [id number] [place] [address] March, Psychophysiological insomnia F51.04 and Vertigo R42 [facility] [address] [place] [address] March, [address] [place] [address] 18 2019 SOB (shortness of breath) R06.02 [facility] [address] [place] [address] [id number] [place] [address] March, [facility] [address] [place] [id number] [place] [address] March, [facility] [address] [place] [address] [id number] [place] [address] March, [facility] [address] [place] [address] [id number] [place] [address] March, [facility] [address] [place] [address] [id number] [place] [address] March, Seasonal allergic rhinitis, unspecified trigger J30.2 [facility] [place] [address] [id number] [place] [id number] March, Chronic obstructive pulmonary disease, u nspecified COPD type J44.9 [facility] [address] [place] [address] [id number] [place] [address] Feb, Psychophysiological insomnia F51.04 [facility] [address] [id number] [place] [id number] Feb, Chronic obstructive pulmonary disease, u nspecified COPD type J44.9 [facility] [address] [place] [address] [id number] [place] [address] Feb, [facility] [place] [address] [id number] [place] [id number] Feb, Moderate episode of recurrent major depr essive disorder F33.1 [facility] [address] [place] [address] [id number] [place] [address] Jan, [facility] [address] [place] [address] [id number] [place] [address] Jan, Chronic obstructive pulmonary disease, u nspecified COPD type J44.9 [facility] [address] [place] [address] [id number] [place] [address] Jan, Moderate episode of recurrent major depr essive disorder F33.1 [facility] [address] [place] [address] [id number] [place] [address] Dec, Seasonal allergic rhinitis, unspecified trigger J30.2 [facility] [address] [place] [address] [id number] [place] [address] Dec, Moderate episode of recurrent major depr essive disorder F33.1 [facility] [address] [place] [address] [id number] [place] [address] Dec, Chronic obstructive pulmonary disease, u nspecified COPD type J44.9 and Cough R05 [facility] [address] [place] [id number] [place] [address] Dec, Chronic obstructive pulmonary disease wi th acute exacerbation J44.1 and Chronic obstructive pulmonary disease, unspecified COPD type J44.9 [facility] [address] [place] [id number] [facility] [place] [address] Nov, [facility] [address] [place] [address] [id number] [facility] [place] [address] Nov, [facility] [place] [id number] [facility] [address] [id number] [place] [id number] Oct, Community acquired pneumonia, unspecifie d laterality J18.9 [facility] [place] [address] [id number] [place] [id number] Oct, Community acquired pneumonia, unspecifie d laterality J18.9 and Chronic obstructive pulmonary disease with acute exacerbation J44.1 [facility] [place] [address] [id number] [place] [id number] Oct, [facility] [place] [address] [id number] [place] [id number] Oct, [facility] [place] [address] [id number] [place] [id number] Oct, Hip bursitis, left M70.72 ; Pain in righ t shoulder M25.511 ; Other chronic pain G89.29 and Moderate episode of recurrent major depressive disorder F33.1 [facility] [place] [address] [id number] [place] [id number] Sep, Encounter for immunization Z23 [facility] [place] [address] [id number] [place] [id number] Sep, [facility] [place] [address] [id number] [place] [id number] Sep, Chronic obstructive pulmonary disease, u nspecified COPD type J44.9 [facility] [place] [address] [id number] [place] [id number] Sep, Moderate episode of recurrent major depr essive disorder F33.1 [facility] [place] [address] [id number] [place] [id number] Aug, Acute pain of right shoulder M25.511 and Injury of right rotator cuff, subsequent encounter S46.001D [facility] [place] [address] [id number] [place] [id number] Aug, [facility] [place] [address] [id number] [place] [id number] Aug, Moderate episode of recurrent major depr essive disorder F33.1 and Chronic obstructive pulmonary disease, unspecified COPD type J44.9 [facility] [address] [id number] [place] [id number] Jul, Injury of right rotator cuff, subsequent encounter S46.001D ; Sciatic leg pain M54.30 and Acute pain of right shoulder M25.511 [facility] [address] [id number] [place] [id number] Jul, [facility] [place] [address] [id number] [place] [id number] Jul, Community acquired pneumonia of left low er lobe of lung J18.[address] [facility] [facility] [address] [id number] [place] [id number] Jul, [facility] [place] [address] [id number] [place] [id number] Jul, Injury of right rotator cuff, subsequent encounter S46.001D [facility] [address] [id number] [id number] Jul, [facility] [place] [address] [id number] [place] [id number] Jul, [facility] [place] [address] [id number] [place] [id number] Jul, Screening for thyroid disorder Z13.29 [facility] [address] [id number] [id number] Jun, Right shoulder pain, unspecified chronic ity M25.511 and Injury of right shoulder, initial encounter S49.91XA [facility] [place] [address] [id number] [place] [id number] Jun, Right shoulder pain, unspecified chronic ity M25.511 and Injury of right shoulder, initial encounter S49.91XA [facility] [place] [address] [id number] [place] [id number] Jun, Moderate episode of recurrent major depr essive disorder F33.1 ; Chronic obstructive pulmonary disease, unspecified COPD type J44.9 ; Mixed hyperlipidemia E78.2 and Hypothyroidism, unspecified type E03.9 [facility] [place] [address] [id number] [place] [id number] Jun, Chronic obstructive pulmonary disease, u nspecified COPD type J44.9 [facility] [place] [address] [id number] [place] [id number] May, Contusion of right knee, initial encount er S80.01XA [facility] [place] [address] [id number] [place] [id number] May, Moderate episode of recurrent major depr essive disorder F33.1 ; Chronic obstructive pulmonary disease, unspecified COPD type J44.9 and Sciatic leg pain M54.30 [facility] [place] [address] [id number] [place] [id number] May, [facility] [place] [address] [id number] [place] [id number] Apr, Urinary frequency R35.0 [facility] [address] [id number] [place] [id number] Apr, [facility] [place] [address] [id number] [place] [id number] March, Contusion of right knee, initial encount er S80.01XA and Chronic obstructive pulmonary disease, unspecified COPD type J44.9 [facility] [place] [address] [id number] [place] [id number] March, Moderate episode of recurrent major depr essive disorder F33.1 and Urinary frequency R35.0 [facility] [place] [address] [id number] [place] [id number] Feb, [facility] [place] [address] [id number] [place] [id number] Feb, Chronic obstructive pulmonary disease, u nspecified COPD type J44.9 [facility] [place] [address] [id number] [place] [id number] Feb, Dysuria R30.0 [facility] [place] [address] [id number] [place] [id number] Feb, Moderate episode of recurrent major depr essive disorder F33.1 [facility] [place] [address] [id number] [place] [id number] Jan, Moderate episode of recurrent major depr essive disorder F33.1 ; Chronic obstructive pulmonary disease, unspecified COPD type J44.9 ; Psychophysiological insomnia F51.04 ; Sciatic leg pain M54.30 and Contusion of right knee, initial encounter S80.01XA [facility] [place] [address] [id number] [place] [id number] Dec, Chronic obstructive pulmonary disease, u nspecified COPD type J44.9 [facility] [place] [address] [id number] [place] [id number] Nov, Chronic obstructive pulmonary disease, u nspecified COPD type J44.9 [facility] [place] [address] [id number] [place] [id number] Nov, Contusion of right knee, initial encount er S80.01XA [facility] [place] [address] [id number] [place] [id number] Nov, Osteoarthritis of both knees, unspecifie d osteoarthritis type M17.0 ; Sciatic leg pain M54.30 and Moderate episode of recurrent major depressive disorder F33.1 [facility] [place] [address] [id number] [place] [id number] Oct, Psychophysiological insomnia F51.04 [facility] [place] [address] [id number] [place] [id number] Sep, [facility] [address] [id number] [facility] [place] [id number] Sep, [facility] [place] [address] [id number] [place] [id number] Sep, Psychophysiological insomnia F51.04 [facility] [place] [address] [id number] [place] [id number] Aug, Breast cancer screening Z12.31 [facility] [place] [address] [id number] [place] [id number] Aug, [facility] [address] [id number] [place] [address] Aug, [facility] [place] [address] [id number] [place] [id number] Jul, [facility] [place] [address] [id number] [place] [id number] Jul, Chronic obstructive pulmonary disease, u nspecified COPD type J44.9 ; Osteoarthritis of both knees, unspecified osteoarthritis type M17.0 ; Moderate episode of recurrent major depressive disorder F33.1 and Sciatic leg pain M54.30 [facility] [place] [address] [id number] [place] [id number] Jun, Moderate episode of recurrent major depr essive disorder F33.1 ; Sciatic leg pain M54.30 and Chronic obstructive pulmonary disease, unspecified COPD type J44.9 [facility] [place] [address] [id number] [place] [id number] Jun, [facility] [place] [address] [id number] [place] [id number] May, Sciatic leg pain M54.30 [facility] [place] [address] [id number] [place] [id number] May, Chronic obstructive pulmonary disease, u nspecified COPD type J44.[address] [facility] [address] [id number] [place] [id number] May, [facility] [place] [address] [id number] [place] [id number] Apr, Moderate episode of recurrent major depr essive disorder F33.1 ; Sciatic leg pain M54.30 and Chronic obstructive pulmonary disease, unspecified COPD type J44.9 [facility] [place] [address] [id number] [place] [id number] March, [facility] [place] [address] [id number] [place] [id number] Feb, Sciatic leg pain M54.30 [facility] [address] [id number] [place] [id number] Feb, [facility] [place] [address] [id number] [place] [id number] Dec, Moderate episode of recurrent major depr essive disorder F33.1 ; Sciatic leg pain M54.30 ; Chronic obstructive pulmonary disease, unspecified COPD type J44.9 and Screening for thyroid disorder Z13.29 [facility] [place] [address] [id number] [place] [id number] Dec, Chronic obstructive pulmonary disease, u nspecified COPD type J44.9 [facility] [place] [address] [id number] [place] [id number] Nov, Sciatic leg pain M54.[address] [facility] [address] [id number] [place] [id number] Oct, [facility] [place] [address] [id number] [place] [id number] Oct, Acute pain of right shoulder M25.511 [facility] [place] [address] [id number] [place] [id number] Oct, Chronic obstructive pulmonary disease, u nspecified COPD type J44.9 [facility] [place] [address] [id number] [place] [id number] Oct, [facility] [place] [address] [id number] [place] [id number] Sep, Chronic obstructive pulmonary disease, u nspecified COPD type J44.9 and Sciatic leg pain M54.30 [facility] [place] [address] [id number] [place] [id number] Aug, Moderate episode of recurrent major depr essive disorder F33.1 and Chronic obstructive pulmonary disease, unspecified COPD type J44.[address] [facility] [address] [id number] [place] [id number] Aug, Moderate episode of recurrent major depr essive disorder F33.1 [facility] [place] [address] [id number] [place] [id number] Jul, Other depression F32.8 and Chronic obstr uctive pulmonary disease, unspecified COPD type J44.9 [facility] [place] [address] [id number] [place] [id number] Jul, Moderate episode of recurrent major depr essive disorder F33.1 [facility] [address] [id number] [place] [id number] Jun, [facility] [place] [address] [id number] [place] [id number] Jun, Moderate episode of recurrent major depr essive disorder F33.1 [facility] [place] [address] [id number] [place] [id number] Jun, Moderate episode of recurrent major depr essive disorder F33.1 [facility] [place] [address] [id number] [place] [id number] Jun, [facility] [place] [address] [id number] [place] [id number] Jun, Sciatic leg pain M54.30 [facility] [place] [address] [id number] [place] [id number] Jun, [facility] [place] [address] [id number] [place] [id number] May, Screening for thyroid disorder Z13.29 an d Screening for lipid disorders Z13.220 [facility] [place] [address] [id number] [place] [id number] May, Other depression F32.8 [facility] [place] [address] [id number] [place] [id number] Apr, Sciatic leg pain M54.30 [facility] [place] [address] [id number] [place] [id number] Apr, Screening for lipid disorders Z13.220 ; Screening for thyroid disorder Z13.29 and Chronic obstructive pulmonary disease, unspecified COPD type J44.9 [facility] [place] [address] [id number] [place] [id number] Apr, Screening for lipid disorders Z13.220 ; Screening for thyroid disorder Z13.29 and Chronic obstructive pulmonary disease, unspecified COPD type J44.9 [facility] [place] [address] [id number] [place] [id number] Apr, [facility] [place] [address] [id number] [place] [id number] Apr, Chronic obstructive pulmonary disease, u nspecified COPD type J44.[address] [facility] [address] [id number] [place] [address] March, [facility] [place] [address] [id number] [place] [id number] March, Sciatic leg pain M54.30 and Other depres kobe F32.8 [facility] [place] [address] [id number] [place] [id number] March, [facility] [place] [address] [id number] [place] [id number] Jan, Other depression F32.8 and Sciatic leg p ain M54.30 [facility] [place] [address] [id number] [place] [id number] Jan, Sciatic leg pain M54.30 [facility] [place] [address] [id number] [place] [id number] Dec, Other depression F32.8 [facility] [place] [address] [id number] [place] [id number] 07 Dec, 2016 Chronic obstructive pulmonary disease, u nspecified COPD type J44.9 [facility] [place] [address] [id number] [place] [id number] Nov, [facility] [place] [address] [id number] [place] [id number] Oct, Other depression F32.8 and Chronic obstr uctive pulmonary disease, unspecified COPD type J44.9 [facility] [place] [address] [id number] [place] [id number] Aug, [facility] [place] [address] [id number] [place] [id number] Aug, Other depression F32.8 ; Arthralgia of r ight temporomandibular joint M26.62 and Encounter for immunization Z23 [facility] [place] [address] [facility] [id number] [place] [id number] Aug, Encounter for well woman exam Z01.419 [facility] [place] [address] [id number] [place] [id number] Jul, Other depression F32.8 and Arthralgia of right temporomandibular joint M26.62 [facility] [place] [address] [id number] [place] [id number] Jun, [facility] [place]note 2[facility] [place] [id number] [place] [address] Jun, [facility] [place] [address] [id number] [place] [id number] Jun, [facility] [place] [address] [facility] [id number] [place] [id number] Jun, Other depression F32.8 and Urinary tract infection without hematuria, site unspecified N39.0 [facility] [place] [address] [id number] [place] [id number] Apr, [facility] [place] [address] [id number] [place] [id number] Apr, Dysuria R30.[address] [facility] [address] [facility] [id number] [address] [place] [address] March, [facility] [place] [address] [id number] [place] [id number] March, Urinary tract infection, site unspecifie d N39.0 [facility] [place] [address] [id number] [place] [id number] March, Urinary tract infection, site unspecifie d N39.0 [facility] [place] [address] [id number] [place] [id number] Feb, [facility] [place] [address] [id number] [place] [id number] Feb, Headache R51 and Ear pain H92.09 [facility] [place] [address] [id number] [place] [id number] Jan, Osteoarthritis of both knees, unspecifie d osteoarthritis type M17.0 and Hip bursitis, left M70.72 [facility] [place] [address] [id number] [place] [id number] Jan, [facility] [place] [address] [id number] [place] [id number] Dec, Unspecified arthropathy, site unspecifie d 716.90 and COPD (chronic obstructive pulmonary disease) 496 [facility] [place] [address] [id number] [place] [id number] Dec, [facility] [place] [address] [id number] [place] [id number] Nov, [facility] [place] [address] [id number] [place] [id number] Oct, [facility] [place] [address] [id number] [place] [id number] Sep, [facility] [place] [address] [id number] [place] [id number] Sep, [facility] [place] [address] [id number] [place] [id number] Aug, [facility] [address] [id number] [id number] Aug, [facility] [place] [address] [id number] [place] [id number] Aug, Urinary tract infection N39.0 and Should er strain, right, initial encounter S46.911A [facility] [address] [id number] [place] [id number] Aug, Screening breast examination Z12.39 and Encounter for immunization Z23 [facility] [address] [facility] [id number] [place] [id number] Aug, zMichael SOLOMON [address] [facility] [id number] JOSE ROBERT [id number] Aug, [facility] [address] [id number] [place] [id number] Jul, [facility] [place] [address] [id number] [place] [id number] Jun, [facility] [address] [facility] [id number] [place] [id number] Jun, Allergic rhinitis, cause unspecified 477 .9 and Cough 786.2 [facility] [place] [address] [id number] [place] [id number] May, [facility] [place] [address] [id number] [place] [id number] May, [facility] [place] [address] [id number] [place] [id number] May, Visit for suture removal V58.32 [facility] [place] [address] [id number] [place] [id number] May, Dog bite 879.8 [facility] [place] [address] [id number] [place] [id number] Apr, Rib pain on right side 786.50 [facility] [place] [address] [id number] [place] [id number] Apr, [facility] [place] [address] [id number] [place] [id number] Apr, Allergic rhinitis, cause unspecified 477 .9 and Cough 786.2 [facility] [place] [address] [facility] [id number] [place] [id number] March, [facility] [place] [address] [id number] [place] [id number] March, [facility] [place] [address] [id number] [place] [id number] March, [facility] [place] [address] [id number] [place] [id number] March, [facility] [place] [address] [id number] [place] [id number] March, Cough 786.2 and Shortness of breath 786. 05 [facility] [place] [address] [id number] [place] [id number] March, [facility] [place] [address] [id number] [place] [id number] March, Cough 786.2 ; COPD (chronic obstructive pulmonary disease) 496 and Allergic rhinitis, cause unspecified 477.9 [facility] [place] [address] [id number] [place] [id number] Feb, Allergic rhinitis, cause unspecified 477 .9 ; Cough 786.2 and COPD (chronic obstructive pulmonary disease) 496 [facility] [address] [facility] [id number] [address] [place] [id number] Feb, [facility] [address] [facility] [id number] [address] [place] [id number] Feb, [facility] [address] [facility] [id number] [address] [place] [id number] Jan, [facility] [address] [facility] [id number] [address] [place] [id number] Jan, [facility] [address] [facility] [id number] [address] [place] [id number] Jan, [facility] [place] [address] [id number] [place] [id number] Jan, [facility] [address] [facility] [id number] [address] [place] [id number] Jan, [facility] [place] [address] [id number] [place] [id number] Dec, [facility] [address] [address] [id number] [address] [place] [address], [place] [address] Dec, [facility] [place] [address] [id number] [place] [id number] Dec, [facility] [address] [id number] [address] [place] [address], [place] [address] Dec, [facility] [place] [address] [id number] [place] [id number] Dec, [facility] [address] [id number] [address] [place] [address], [place] [address] Dec, [facility] [address] [facility] [id number] [address] [place] [address], [place] [address] Dec, [facility] [place] [address] [id number] [place] [id number] Nov, [facility] [address] [facility] [id number] [address] [place] [address], [place] [address] Nov, [facility] [address] [facility] [id number] [address] [place] [address], [place] [address] Nov, [facility] [place] [address] [facility] [id number] [place] [id number] Nov, [facility] [address] [facility] [id number] [address] [place] [address], [place] [address] Nov, [facility] [place] [address] [id number] [place] [id number] Oct, [facility] [address] [id number] [address] [place] [address], [place] [address] Oct, [facility] [place] [address] [id number] [place] [id number] Sep, [facility] [address] [id number] [facility] [place] [address] Sep, [facility] [place] [address] [id number] [place] [id number] Sep, [facility] [address] [id number] [address] [place] [address], [place] [address] Sep, [facility] [place] [address] [id number] [place] [id number] Aug, [facility] [address] [id number] [facility] [place] [address] Aug, [facility] [place] [address] [id number] [place] [id number] Aug, [facility] [address] [id number] [address] [place] [address], [place] [address] Aug, [facility] [address] [id number] [address] [place] [address], [place] [address] Jul, [facility] [place] [address] [id number] [place] [id number] Jul, [facility] [place] [address] [id number] [place] [id number] Jul, [facility] [place] [address] [id number] [place] [id number] Jul, [facility] [address] [id number] [address] [place] [address], [place] [address] Jul, [facility] [address] [id number] [address] [place] [address], [place] [address] Jul, [facility] [address] [id number] [address] [place] [address], [place] [address] Jul, [facility] [address] [id number] [address] [place] [address], [place] [address] Jul, [facility] [place] [address] [id number] [place] [id number] Jun, [facility] [address] [id number] [address] [place] [address], [place] [address] Jun, [facility] [address] [id number] [address] [place] [address], [place] [address] Jun, [facility] [place] [address] [id number] [place] [id number] Jun, [facility] [address] [id number] [facility] [address] Jun, [facility] [place] [address] [id number] [place] [id number] Jun, [facility] [address] [id number] [facility] [place] [address] Jun, [facility] [place] [address] [id number] [place] [id number] Apr, [facility] [address] [id number] [facility] [place] [address] Apr, [facility] [place] [address] [id number] [place] [id number] Apr, [facility] [address] [id number] [address] [place] [address], [place] [address] Apr, [facility] [place] [address] [id number] [place] [id number] Apr, [facility] [address] [id number] [address] [place] [address], [place] [address] Apr, [facility] [address] [id number] [address] [place] [address], [place] [address] March, [facility] [address] [id number] [address] [place] [address], [place] [address] March, [facility] [place] [address] [id number] [place] [id number] March, [facility] [place] [address] [id number] [place] [id number] Feb, [facility] [address] [id number] [address] [place] [address], [place] [address] Feb, [facility] [place] [address] [id number] [place] [id number] Jan, [facility] [address] [id number] [address] [place] [address], [place] [address] Jan, [facility] [place] [address] [id number] [place] [id number] Dec, [facility] [address] [id number] [address] [place] [address], [place] [address] Dec, [facility] [place] [address] [id number] [place] [id number] Dec, [facility] [address] [id number] [address] [place] [address], [place] [address] Dec, [facility] [address] [id number] [address] [place] [address], [place] [address] Dec, [facility] [address] [id number] [address] [place] [address], [place] [address] Dec, [facility] [place] [address] [id number] [place] [id number] Nov, [facility] [address] [id number] [address] [place] [address], [place] [address] Nov, [facility] [place] [address] [id number] [place] [id number] Nov, [facility] [address] [id number] [address] [place] [address], [place] [address] Nov, [facility] [place] [address] [id number] [place] [id number] Nov, [facility] [address] [id number] [address] [place] [address], [place] [address] Nov, [facility] [place] [address] [id number] [place] [id number] Oct, [facility] [address] [id number] [address] [place] [address], [place] [address] Oct, [facility] [address] [id number] [address] [place] [address] Oct, [facility] [place] [address] [id number] [place] [id number] Oct, [facility] [address] [id number] [address] [place] [address] Sep, [facility] [address] [facility] [id number] [address] [place] [address] Sep, [facility] [place] [address] [id number] [place] [id number] Sep, [facility] [address] [facility] [id number] [address] [place] [address] Sep, [facility] [place] [address] [id number] [place] [id number] Aug, [facility] [address] [facility] [id number] [address] [place] [address] Aug, [facility] [place] [address] [id number] [place] [id number] Jul, [facility] [place] [address] [id number] [place] [id number] Jul, [facility] [place] [address] [id number] [place] [id number] Jun, [facility] [place] [address] [id number] [place] [id number] May, [facility] [place] [address] [id number] [place] [id number] May, [facility] [address] [facility] [id number] [address] [place] [address] May, [facility] [place] [address] [id number] [place] [id number] Apr, [facility] [place] [address] [id number] [place] [id number] Apr, [facility] [place] [address] [id number] [place] [id number] March, [facility] [place] [address] [id number] [place] [id number] Feb, [facility] [place] [address] [id number] [place] [id number] Feb, [facility] [place] [address] [id number] [place] [id number] Jan, [facility] [place] [address] [id number] [place] [id number] Jan, [facility] [place] [address] [id number] [place] [id number] Dec, [facility] [place] [address] [id number] [place] [id number] Nov, [facility] [address] [id number] [address] [place] [address], [place] [address] Oct, [facility] [address] [id number] [address] [place] [address] Oct, [facility] [place] [address] [id number] [place] [id number] Oct, [facility] [address] [facility] [id number] [address] [place] [address] Oct, [facility] [address] [facility] [id number] [address] [place] [address] Oct, [facility] [place] [address] [id number] [place] [id number] Oct, [facility] [place] [address] [id number] [place] [id number] Sep, [facility] [address] [facility] [id number] [address] [place] [address] Sep, [facility] [place] [address] [id number] [place] [id number] Sep, [facility] [address] [id number] [address] [place] [address], [place] [address] Sep, [facility] [place] [address] [id number] [place] [id number] Aug, [facility] [address] [id number] [address] [place] [id number] Aug, [facility] [place] [address] [id number] [place] [id number] Aug, [facility] [place] [address] [id number] [place] [id number] Jun, [facility] [place] [address] [id number] [place] [id number] Jun, [facility] [address] [facility] [id number] [address] [place] [address] May, [facility] [place] [address] [id number] [place] [id number] Apr, [facility] [place] [address] [id number] [place] [id number] March, [facility] [place] [address] [id number] [place] [id number] Feb, [facility] [place] [address] [id number] [place] [id number] Jan, [facility] [place] [address] [id number] [place] [id number] Nov, [facility] [address] [facility] [id number] [address] [place] [id number] Sep, [facility] [address] [place] [place] [id number] [address] [place] [address] Sep, [facility] [address] [place] [id number] [address] [place] [address] Aug, [facility] [address] [place] [id number] [address] [place] [address] Apr, [facility] [address] [place] [place] [id number] [address] [place] [address] March, IMMUNIZATIONS No Known Immunizations SOCIAL HISTORY Never Assessed REASON FOR VISIT PLAN OF CARE VITAL SIGNS Height 62 in 2013-10-26 Weight 171.5 lbs 2013-10-26 Temperature 98.2 degrees Fahrenheit 2013-10-26 Heart Rate 88 bpm 2013-10-26 Respiratory Rate 20 2013-10-26 Blood pressure systolic 126 mmHg 2013-10-26 Blood pressure diastolic 80 mmHg 2013-10-26 MEDICATIONS No Known Medications RESULTS No Results PROCEDURES Procedure Date Ordered Result Body Site COMPLETE CBC W/AUTO DIFF WBC Oct 26, 2013 INJ TRIAMCINOLONE ACETONIDE 10 MG Oct 26, 2013 LIPID PANEL Oct 26, 2013 COMPREHEN METABOLIC PANEL Oct 26, 2013 CHEST X-RAY Oct 26, 2013 VENIPUNCT, ROUTINE* Oct 26, 2013 INSTRUCTIONS MEDICATIONS ADMINISTERED No Known Medications MEDICAL [...]
--- OUTSIDE RECORDS SUMMARY | 2020-03-30 07:10 | XMS REPORT ---
Author Author Devi Robert Organization [facility] Address [address] [place] [address] Care Team Providers Care Correctional Corporal Name Role Phone THEO Robert Unavailable PROBLEMS Type Condition ICD9-CM Code NTQ69-RE Code Onset Dates Condition S tatus SNOMED Code Problem Osteoarthritis of both knees, unspecified osteoarthritis t ype M17.0 Active 756769374 Problem Other depression F32.8 Active 354 57809 Problem Hip bursitis, left M70.72 Active 8 9720093 Problem Chronic obstructive pulmonary disease, unspecified COPD ty pe J44.9 Active 91647367 Problem Arthralgia of right temporomandibular joint M26.62 Active 59104600 Problem Psychophysiological insomnia F51.04 A ctive 070717359 Problem Hypothyroidism, unspecified type E03.9 Active 05484673 Problem Hypothyroidism, unspecified type E03.9 Active 25953338 Problem Chronic obstructive pulmonary disease with acute exacerbat ion J44.1 Active 636688213 Problem Moderate episode of recurrent major depressive disorder F33.1 Active 632717683 Problem Seasonal allergic rhinitis, unspecified trigger J3 0.2 Active 708827095 Problem Sciatic leg pain M54.30 Active 230 24795 Problem Mixed hyperlipidemia E78.2 Active 131389606 Problem Mixed hyperlipidemia E78.2 Active 692560736 Problem Other chronic pain G89.29 Active 8 3144954 Problem Chronic obstructive pulmonary disease with acute exacerbat ion J44.1 Active 382478028 ALLERGIES No Information ENCOUNTERS Encounter Location Date Diagnosis [facility] [address] [facility] [id number] [place] [id number] Feb, Moderate episode of recurrent major depr essive disorder F33.[address] [id number] [facility] [place] [address] Jan, [address] [id number] [place] [address] Jan, Chronic obstructive pulmonary disease, u nspecified COPD type J44.9 [facility] [address] [place] [address] [id number] [place] [address] Jan, Moderate episode of recurrent major depr essive disorder F33.1 [facility] [address] [place] [address] [id number] [place] [address] 25 Dec, 2019 Seasonal allergic rhinitis, unspecified trigger J30.2 [facility] [address] [place] [address] [id number] [place] [address] 18 Dec, 2019 Moderate episode of recurrent major depr essive disorder F33.1 [facility] [address] [place] [address] [id number] [place] [address] 17 Dec, 2019 Chronic obstructive pulmonary disease, u nspecified COPD type J44.9 and Cough R05 [facility] [address] [place] [address] [id number] [place] [address] Dec, Chronic obstructive pulmonary disease wi th acute exacerbation J44.1 and Chronic obstructive pulmonary disease, unspecified COPD type J44.9 [facility] [address] [place] [address] [id number] [place] [address] Nov, [facility] [address] [place] [address] [address] [id number] [place] [address] Nov, [facility] [id number] [id number] Oct, Community acquired pneumonia, unspecifie d laterality J18.9 [facility] [place] [address] [id number] [place] [id number] Oct, Community acquired pneumonia, unspecifie d laterality J18.9 and Chronic obstructive pulmonary disease with acute exacerbation J44.1 [facility] [place] [address] [id number] [place] [id number] Oct, [facility] [address] [id number] [place] [id number] Oct, [facility] [place] [address] [id number] [place] [id number] Oct, Hip bursitis, left M70.72 ; Pain in righ t shoulder M25.511 ; Other chronic pain G89.29 and Moderate episode of recurrent major depressive disorder F33.1 [facility] [place] [address] [id number] [place] [id number] Sep, Encounter for immunization Z23 [facility] [place] [address] [id number] [place] [id number] Sep, [facility] [place] [address] [id number] [place] [id number] Sep, Chronic obstructive pulmonary disease, u nspecified COPD type J44.9 [facility] [place] [address] [id number] [place] [id number] Sep, Moderate episode of recurrent major depr essive disorder F33.1 [facility] [place] [address] [id number] [place] [id number] Aug, Acute pain of right shoulder M25.511 and Injury of right rotator cuff, subsequent encounter S46.001D [facility] [place] [address] [id number] [place] [id number] Aug, [facility] [place] [address] [id number] [place] [id number] Aug, Moderate episode of recurrent major depr essive disorder F33.1 and Chronic obstructive pulmonary disease, unspecified COPD type J44.[address] [facility] [address] [id number] [place] [id number] Jul, Injury of right rotator cuff, subsequent encounter S46.001D ; Sciatic leg pain M54.30 and Acute pain of right shoulder M25.[address] [facility] [address] [id number] [place] [id number] Jul, [facility] [place] [address] [id number] [place] [id number] Jul, Community acquired pneumonia of left low er lobe of lung J18.[address] [facility] [address] [id number] [place] [id number] Jul, [facility] [place] [address] [id number] [place] [id number] Jul, Injury of right rotator cuff, subsequent encounter S46.001D [address] [id number] [id number] Jul, [facility] [place] [address] [id number] [place] [id number] Jul, [facility] [place] [address] [id number] [place] [id number] Jul, Screening for thyroid disorder Z13.29 [address] [id number] [id number] Jun, Right shoulder pain, unspecified chronic ity M25.511 and Injury of right shoulder, initial encounter S49.91XA [facility] [place] [address] [id number] [place] [id number] Jun, Right shoulder pain, unspecified chronic ity M25.511 and Injury of right shoulder, initial encounter S49.91XA [facility] [place] [address] [id number] [place] [id number] Jun, Moderate episode of recurrent major depr essive disorder F33.1 ; Chronic obstructive pulmonary disease, unspecified COPD type J44.9 ; Mixed hyperlipidemia E78.2 and Hypothyroidism, unspecified type E03.9 [facility] [place] [address] [id number] [place] [id number] Jun, Chronic obstructive pulmonary disease, u nspecified COPD type J44.9 [facility] [place] [address] [id number] [place] [id number] May, Contusion of right knee, initial encount er S80.01XA [facility] [place] [address] [id number] [place] [id number] May, Moderate episode of recurrent major depr essive disorder F33.1 ; Chronic obstructive pulmonary disease, unspecified COPD type J44.9 and Sciatic leg pain M54.30 [facility] [place] [address] [id number] [place] [id number] May, [facility] [place] [address] [id number] [place] [id number] Apr, Urinary frequency R35.0 [facility] [facility] [address] [id number] [id number] Apr, [facility] [place] [address] [id number] [place] [id number] March, Contusion of right knee, initial encount er S80.01XA and Chronic obstructive pulmonary disease, unspecified COPD type J44.9 [facility] [place] [address] [id number] [place] [id number] March, Moderate episode of recurrent major depr essive disorder F33.1 and Urinary frequency R35.0 [facility] [place] [address] [id number] [place] [id number] Feb, [facility] [place] [address] [id number] [place] [id number] Feb, Chronic obstructive pulmonary disease, u nspecified COPD type J44.9 [facility] [place] [address] [id number] [place] [id number] Feb, Dysuria R30.0 [facility] [place] [address] [id number] [place] [id number] Feb, Moderate episode of recurrent major depr essive disorder F33.1 [facility] [place] [address] [id number] [place] [id number] Jan, Moderate episode of recurrent major depr essive disorder F33.1 ; Chronic obstructive pulmonary disease, unspecified COPD type J44.9 ; Psychophysiological insomnia F51.04 ; Sciatic leg pain M54.30 and Contusion of right knee, initial encounter S80.01XA [facility] [place] [address] [id number] [place] [id number] Dec, Chronic obstructive pulmonary disease, u nspecified COPD type J44.9 [facility] [place] [address] [id number] [place] [id number] Nov, Chronic obstructive pulmonary disease, u nspecified COPD type J44.9 [facility] [place] [address] [id number] [place] [id number] Nov, Contusion of right knee, initial encount er S80.01XA [facility] [place] [address] [id number] [place] [id number] Nov, Osteoarthritis of both knees, unspecifie d osteoarthritis type M17.0 ; Sciatic leg pain M54.30 and Moderate episode of recurrent major depressive disorder F33.1 [facility] [place] [address] [id number] [place] [id number] Oct, Psychophysiological insomnia F51.04 [facility] [place] [address] [id number] [place] [id number] Sep, [facility] [place] [facility] [address] [id number] [facility] [id number] Sep, [facility] [place] [address] [id number] [place] [id number] Sep, Psychophysiological insomnia F51.04 [facility] [place] [address] [id number] [place] [id number] Aug, Breast cancer screening Z12.31 [facility] [place] [address] [id number] [place] [id number] Aug, [facility] [address] [facility] [id number] [facility] [place] [address] Aug, [facility] [place] [address] [id number] [place] [id number] Jul, [facility] [place] [address] [id number] [place] [id number] Jul, Chronic obstructive pulmonary disease, u nspecified COPD type J44.9 ; Osteoarthritis of both knees, unspecified osteoarthritis type M17.0 ; Moderate episode of recurrent major depressive disorder F33.1 and Sciatic leg pain M54.30 [facility] [place] [address] [id number] [place] [id number] Jun, Moderate episode of recurrent major depr essive disorder F33.1 ; Sciatic leg pain M54.30 and Chronic obstructive pulmonary disease, unspecified COPD type J44.9 [facility] [place] [address] [id number] [place] [id number] Jun, [facility] [place] [address] [id number] [place] [id number] May, Sciatic leg pain M54.30 [facility] [place] [address] [id number] [place] [id number] May, Chronic obstructive pulmonary disease, u nspecified COPD type J44.[address] [facility] [address] [id number] [place] [id number] May, [facility] [place] [address] [id number] [place] [id number] Apr, Moderate episode of recurrent major depr essive disorder F33.1 ; Sciatic leg pain M54.30 and Chronic obstructive pulmonary disease, unspecified COPD type J44.9 [facility] [place] [address] [id number] [place] [id number] March, [facility] [place] [address] [id number] [place] [id number] Feb, Sciatic leg pain M54.[address] [facility] [address] [id number] [place] [id number] Feb, [facility] [place] [address] [id number] [place] [id number] Dec, Moderate episode of recurrent major depr essive disorder F33.1 ; Sciatic leg pain M54.30 ; Chronic obstructive pulmonary disease, unspecified COPD type J44.9 and Screening for thyroid disorder Z13.29 [facility] [place] [address] [id number] [place] [id number] Dec, Chronic obstructive pulmonary disease, u nspecified COPD type J44.9 [facility] [place] [address] [id number] [place] [id number] Nov, Sciatic leg pain M54.[address] [facility] [address] [id number] [place] [id number] Oct, [facility] [place] [address] [id number] [place] [id number] Oct, Acute pain of right shoulder M25.511 [facility] [place] [address] [id number] [place] [id number] Oct, Chronic obstructive pulmonary disease, u nspecified COPD type J44.9 [facility] [place] [address] [id number] [place] [id number] Oct, [facility] [place] [address] [id number] [place] [id number] Sep, Chronic obstructive pulmonary disease, u nspecified COPD type J44.9 and Sciatic leg pain M54.30 [facility] [place] [address] [id number] [place] [id number] Aug, Moderate episode of recurrent major depr essive disorder F33.1 and Chronic obstructive pulmonary disease, unspecified COPD type J44.9 [facility] [address] [id number] [place] [id number] Aug, Moderate episode of recurrent major depr essive disorder F33.1 [facility] [place] [address] [id number] [place] [id number] Jul, Other depression F32.8 and Chronic obstr uctive pulmonary disease, unspecified COPD type J44.9 [facility] [place] [address] [id number] [place] [id number] Jul, Moderate episode of recurrent major depr essive disorder F33.1 [facility] [address] [id number] [place] [id number] Jun, [facility] [place] [address] [id number] [place] [id number] Jun, Moderate episode of recurrent major depr essive disorder F33.1 [facility] [place] [address] [id number] [place] [id number] Jun, Moderate episode of recurrent major depr essive disorder F33.1 [facility] [place] [address] [id number] [place] [id number] Jun, [facility] [place] [address] [id number] [place] [id number] Jun, Sciatic leg pain M54.30 [facility] [place] [address] [id number] [place] [id number] Jun, [facility] [place] [address] [id number] [place] [id number] May, Screening for thyroid disorder Z13.29 an d Screening for lipid disorders Z13.220 [facility] [place] [address] [id number] [place] [id number] May, Other depression F32.8 [facility] [place] [address] [id number] [place] [id number] Apr, Sciatic leg pain M54.30 [facility] [place] [address] [id number] [place] [id number] Apr, Screening for lipid disorders Z13.220 ; Screening for thyroid disorder Z13.29 and Chronic obstructive pulmonary disease, unspecified COPD type J44.9 [facility] [place] [address] [id number] [place] [id number] Apr, Screening for lipid disorders Z13.220 ; Screening for thyroid disorder Z13.29 and Chronic obstructive pulmonary disease, unspecified COPD type J44.9 [facility] [place] [address] [id number] [place] [id number] Apr, [facility] [place] [address] [id number] [place] [id number] Apr, Chronic obstructive pulmonary disease, u nspecified COPD type J44.9 [facility] [address] [id number] [place] [address] March, [facility] [place] [address] [id number] [place] [id number] March, Sciatic leg pain M54.30 and Other depres kobe F32.8 [facility] [place] [address] [id number] [place] [id number] March, [facility] [place] [address] [id number] [place] [id number] Jan, Other depression F32.8 and Sciatic leg p ain M54.30 [facility] [place] [address] [id number] [place] [id number] Jan, Sciatic leg pain M54.30 [facility] [place] [address] [id number] [place] [id number] Dec, Other depression F32.8 [facility] [place] [address] [id number] [place] [id number] Dec, Chronic obstructive pulmonary disease, u nspecified COPD type J44.9 [facility] [place] [address] [id number] [place] [id number] Nov, [facility] [place] [address] [id number] [place] [id number] Oct, Other depression F32.8 and Chronic obstr uctive pulmonary disease, unspecified COPD type J44.9 [facility] [place] [address] [id number] [place] [id number] Aug, [facility] [place] [address] [id number] [place] [id number] Aug, Other depression F32.8 ; Arthralgia of r ight temporomandibular joint M26.62 and Encounter for immunization Z23 [facility] [place] [address] [id number] [place] [id number] Aug, Encounter for well woman exam Z01.419 [facility] [place] [address] [id number] [place] [id number] Jul, Other depression F32.8 and Arthralgia of right temporomandibular joint M26.62 [facility] [place] [address] [id number] [place] [id number] Jun, [facility] [place] [address] [id number] [place] [address] Jun, [facility] [place] [address] [id number] [place] [id number] Jun, [facility] [place] [address] [id number] [place] [id number] Jun, Other depression F32.8 and Urinary tract infection without hematuria, site unspecified N39.0 [facility] [place] [address] [id number] [place] [id number] Apr, [facility] [place] [address] [id number] [place] [id number] Apr, Dysuria R30.0 [facility] [address] [id number] [place] [address] March, [facility] [place] [address] [id number] [place] [id number] March, Urinary tract infection, site unspecifie d N39.0 [facility] [place] [address] [id number] [place] [id number] March, Urinary tract infection, site unspecifie d N39.0 [facility] [place] [address] [id number] [place] [id number] Feb, [facility] [place] [address] [id number] [place] [id number] Feb, Headache R51 and Ear pain H92.09 [facility] [place] [address] [id number] [place] [id number] Jan, Osteoarthritis of both knees, unspecifie d osteoarthritis type M17.0 and Hip bursitis, left M70.72 [facility] [place] [address] [id number] [place] [id number] Jan, [facility] [place] [address] [id number] [place] [id number] Dec, Unspecified arthropathy, site unspecifie d 716.90 and COPD (chronic obstructive pulmonary disease) 496 [facility] [place] [address] [id number] [place] [id number] Dec, [facility] [place] [address] [id number] [place] [id number] Nov, [facility] [place] [address] [id number] [place] [id number] Oct, [facility] [place] [address] [id number] [place] [id number] Sep, [facility] [place] [address] [id number] [place] [id number] Sep, [facility] [place] [address] [id number] [place] [id number] Aug, [facility] [place] [address] [id number] [place] [id number] Aug, [facility] [place] [address] [id number] [place] [id number] Aug, Urinary tract infection N39.0 and Should er strain, right, initial encounter S46.911A [facility] [place] [address] [id number] [place] [id number] Aug, Screening breast examination Z12.39 and Encounter for immunization Z23 [facility] [place] [address] [id number] [place] [id number] Aug, [facility] [address] [facility] [id number] [place] [id number] Aug, [facility] [place] [address] [id number] [place] [id number] Jul, [facility] [place] [address] [id number] [place] [id number] Jun, [facility] [place] [address] [id number] [place] [id number] Jun, Allergic rhinitis, cause unspecified 477 .9 and Cough 786.2 [facility] [place] [address] [id number] [place] [id number] May, [facility] [place] [address] [id number] [place] [id number] May, [facility] [place] [address] [id number] [place] [id number] May, Visit for suture removal V58.32 [facility] [place] [address] [id number] [place] [id number] May, Dog bite 879.8 [facility] [place] [address] [id number] [place] [id number] Apr, Rib pain on right side 786.50 [facility] [place] [address] [id number] [place] [id number] Apr, [facility] [place] [address] [id number] [place] [id number] Apr, Allergic rhinitis, cause unspecified 477 .9 and Cough 786.2 [facility] [place] [address] [id number] [place] [id number] March, [facility] [place] [address] [id number] [place] [id number] March, [facility] [place] [address] [id number] [place] [id number] March, [facility] [place] [address] [id number] [place] [id number] March, [facility] [place] [address] [id number] [place] [id number] March, Cough 786.2 and Shortness of breath 786. 05 [facility] [place] [address] [id number] [place] [id number] March, [facility] [place] [address] [id number] [place] [id number] March, Cough 786.2 ; COPD (chronic obstructive pulmonary disease) 496 and Allergic rhinitis, cause unspecified 477.9 [facility] [place] [address] [id number] [place] [id number] Feb, Allergic rhinitis, cause unspecified 477 .9 ; Cough 786.2 and COPD (chronic obstructive pulmonary disease) 496 [facility] [address] [id number] [address] [place] [address] Feb, [facility] [address] [id number] [address] [place] [address] Feb, [facility] [address] [facility] [id number] [address] [place] [address] Jan, [facility] [address] [id number] [address] [place] [address] Jan, [facility] [address] [id number] [address] [place] [address] Jan, [facility] [id number] [place] [address], [place] [id number] Jan, [facility] [address] [id number] [address] [place] [address], [place] [address] Jan, [facility] [place] [address] [id number] [place] [id number] Dec, [facility] [address] [id number] [address] [place] [address], [place] [address] Dec, [facility] [place] [address] [id number] [place] [id number] Dec, [facility] [address] [id number] [address] [place] [address], [place] [address] Dec, [facility] [place] [address] [id number] [place] [id number] Dec, [facility] [address] [facility] [id number] [address] [place] [address], [place] [address] Dec, [facility] [address] [id number] [address] [place] [address], [place] [address] Dec, [facility] [place] [address] [id number] [place] [id number] Nov, [facility] [address] [facility] [id number] [address] [place] [address], [place] [address] Nov, [facility] [address] [id number] [address] [place] [address], [place] [address] Nov, [facility] [place] [address] [id number] [place] [id number] Nov, [facility] [address] [id number] [address] [place] [address], [place] [address] Nov, [facility] [place] [address] [id number] [place] [id number] Oct, [facility] [address] [id number] [address] [place] [address], [place] [address] Oct, [facility] [place] [address] [id number] [place] [id number] Sep, [facility] [address] [id number] [address] [place] [address], [place] [address] Sep, [facility] [place] [address] [id number] [place] [id number] Sep, [facility] [address] [id number] [address] [place] [address], [place] [address] Sep, [facility] [place] [address] [id number] [place] [id number] Aug, [facility] [address] [id number] [address] [place] [address], [place] [address] Aug, [facility] [place] [address] [id number] [place] [id number] Aug, [facility] [address] [id number] [address] [place] [address], [place] [address] Aug, [facility] [address] [id number] [address] [place] [address], [place] [address] Jul, [facility] [place] [address] [id number] [place] [id number] Jul, [facility] [place] [address] [id number] [place] [id number] Jul, [facility] [place] [address] [id number] [place] [id number] Jul, [facility] [address] [id number] [address] [place] [address], [place] [address] Jul, [facility] [address] [id number] [address] [place] [address], [place] [address] Jul, [facility] [address] [id number] [address] [place] [address], [place] [address] Jul, [facility] [address] [id number] [address] [place] [address], [place] [address] Jul, [facility] [place] [address] [id number] [place] [id number] Jun, [facility] [address] [id number] [facility] [place] [address] Jun, [facility] [address] [id number] [facility] [place] [address] Jun, [facility] [place] [address] [id number] [place] [id number] Jun, [facility] [address] [id number] [facility] [place] [address] Jun, [facility] [place] [address] [id number] [place] [id number] Jun, [facility] [address] [id number] [facility] [place] [address] Jun, [facility] [place] [address] [id number] [place] [id number] Apr, [facility] [address] [id number] [facility] [place] [address] Apr, [facility] [place] [address] [id number] [place] [id number] Apr, [facility] [address] [id number] [address] [place] [address], [place] [address] Apr, [facility] [place] [address] [id number] [place] [id number] Apr, [facility] [address] [id number] [facility] [place] [address] Apr, [facility] [address] [id number] [facility] [place] [address] March, [facility] [address] [id number] [facility] [place] [address] March, [facility] [place] [address] [id number] [place] [id number] March, [facility] [place] [address] [id number] [place] [id number] Feb, [facility] [address] [id number] [facility] [place] [address] Feb, [facility] [place] [address] [id number] [place] [id number] Jan, [facility] [address] [id number] [facility] [place] [address] Jan, [facility] [place] [address] [id number] [place] [id number] Dec, [facility] [address] [id number] [address] [place] [address], [place] [address] Dec, [facility] [place] [address] [id number] [place] [id number] Dec, [facility] [address] [id number] [address] [place] [address], [place] [address] Dec, [facility] [address] [facility] [id number] [address] [place] [address], [place] [address] Dec, [facility] [address] [facility] [id number] [address] [place] [address] Dec, [facility] [place] [address] [id number] [place] [id number] Nov, [facility] [address] [id number] [address] [place] [address] Nov, [facility] [place] [address] [id number] [place] [id number] Nov, [facility] [address] [id number] [address] [place] [address] Nov, [facility] [place] [address] [id number] [place] [id number] Nov, [facility] [address] [id number] [address] [place] [address], [place] [address] Nov, [facility] [place] [address] [id number] [place] [id number] Oct, [facility] [address] [id number] [address] [place] [address] Oct, [facility] [address] [id number] [place] [address] Oct, [facility] [place] [address] [id number] [place] [id number] Oct, [facility] [address] [facility] [id number] [address] [place] [address] Sep, [facility] [address] [facility] [id number] [address] [place] [address] Sep, [facility] [place] [address] [id number] [place] [id number] Sep, [facility] [address] [facility] [id number] [address] [place] [address] Sep, [facility] [place] [address] [id number] [place] [id number] Aug, [facility] [address] [facility] [id number] [address] [place] [address] Aug, [facility] [place] [address] [id number] [place] [id number] Jul, [facility] [place] [address] [id number] [place] [id number] Jul, [facility] [place] [address] [id number] [place] [id number] Jun, [facility] [place] [address] [id number] [place] [id number] May, [facility] [place] [address] [id number] [place] [id number] May, [facility] [address] [id number] [address] [place] [address], [place] [address] May, [facility] [place] [address] [id number] [place] [id number] Apr, [facility] [place] [address] [id number] [place] [id number] Apr, [facility] [place] [address] [id number] [place] [id number] March, [facility] [place] [address] [id number] [place] [id number] Feb, [facility] [place] [address] [id number] [place] [id number] Feb, [facility] [place] [address] [id number] [place] [id number] Jan, [facility] [place] [address] [id number] [place] [id number] Jan, [facility] [place] [address] [id number] [place] [id number] Dec, [facility] [place] [address] [id number] [place] [id number] Nov, [facility] [address] [id number] [address] [place] [address] Oct, [facility] [address] [facility] [id number] [address] [place] [address] Oct, [facility] [place] [address] [id number] [place] [id number] Oct, [facility] [address] [facility] [id number] [address] [place] [address] Oct, [facility] [address] [facility] [id number] [address] [place] [address] Oct, [facility] [place] [address] [id number] [place] [id number] Oct, [facility] [place] [address] [id number] [place] [id number] Sep, [facility] [address] [id number] [address] [place] [address] Sep, [facility] [place] [address] [id number] [place] [id number] Sep, [facility] [address] [facility] [id number] [address] [place] [address] Sep, [facility] [place] [address] [id number] [place] [id number] Aug, [facility] [address] [facility] [id number] [address] [place] [address] Aug, [facility] [place] [address] [id number] [place] [id number] Aug, [facility] [place] [address] [id number] [place] [id number] Jun, [facility] [place] [address] [id number] [place] [id number] Jun, [facility] [address] [id number] [address] [place] [address] May, [facility] [place] [address] [id number] [place] [id number] Apr, [facility] [place] [address] [id number] [place] [id number] March, [facility] [place] [address] [id number] [place] [id number] Feb, [facility] [place] [address] [id number] [place] [id number] Jan, [facility] [place] [address] [id number] [place] [id number] Nov, [facility] [address] [facility] [id number] [address] [place] [address] Sep, [facility] [address] [facility] [id number] [address] [place] [address] Sep, [facility] [address] [facility] [id number] [address] [place] [address] Aug, [facility] [address] [facility] [id number] [address] [place] [address] Apr, [facility] [address] [facility] [id number] [address] [place] [address] March, IMMUNIZATIONS No Known Immunizations SOCIAL HISTORY Never Assessed REASON FOR VISIT PLAN OF CARE VITAL SIGNS Height 62 in 2014-08-18 Weight 168.5 lbs 2014-08-18 Temperature 99.5 degrees Fahrenheit 2014-08-18 Heart Rate 108 bpm 2014-08-18 Respiratory Rate 16 2014-08-18 Blood pressure systolic 132 mmHg 2014-08-18 Blood pressure diastolic 90 mmHg 2014-08-18 MEDICATIONS Unknown Medications RESULTS No Results PROCEDURES Procedure Date Ordered Result Body Site MAMMOGRAM, SCREENING Aug 18, 2014 INSTRUCTIONS MEDICATIONS ADMINISTERED No Known Medications MEDICAL [...]
--- OUTSIDE RECORDS SUMMARY | 2020-03-30 07:10 | XMS REPORT ---
Author Author Devi TATE Organization [address] Address [address] [place] [address] Care Team Providers Care Operations Label Clerk Name Role Phone TARIQ TATE Unavailable PROBLEMS Type Condition ICD9-CM Code HTL59-OB Code Onset Dates Condition S tatus SNOMED Code Problem Osteoarthritis of both knees, unspecified osteoarthritis t ype M17.0 Active 567345813 Problem Other depression F32.8 Active 354 32481 Problem Hip bursitis, left M70.72 Active 8 3485602 Problem Chronic obstructive pulmonary disease, unspecified COPD ty pe J44.9 Active 13715026 Problem Arthralgia of right temporomandibular joint M26.62 Active 82471044 Problem Psychophysiological insomnia F51.04 A ctive 873610249 Problem Hypothyroidism, unspecified type E03.9 Active 14697966 Problem Hypothyroidism, unspecified type E03.9 Active 20547471 Problem Chronic obstructive pulmonary disease with acute exacerbat ion J44.1 Active 940435884 Problem Moderate episode of recurrent major depressive disorder F33.1 Active 514973239 Problem Seasonal allergic rhinitis, unspecified trigger J3 0.2 Active 538150208 Problem Sciatic leg pain M54.30 Active 230 61855 Problem Mixed hyperlipidemia E78.2 Active 971484676 Problem Mixed hyperlipidemia E78.2 Active 354343371 Problem Other chronic pain G89.29 Active 8 0917060 Problem Chronic obstructive pulmonary disease with acute exacerbat ion J44.1 Active 621954017 ALLERGIES No Information ENCOUNTERS Encounter Location Date Diagnosis [facility] [address] [id number] [facility] S [id number] Feb, Moderate episode of recurrent major depr essive disorder F33.[address] [id number] [place] [address] Jan, [address] [id number] [address] Jan, Chronic obstructive pulmonary disease, u nspecified COPD type J44.9 [facility] [address] [place] [address] [id number] [place] [address] Jan, Moderate episode of recurrent major depr essive disorder F33.1 [facility] [address] [place] [address] [id number] [place] [address] 25 Dec, 2019 Seasonal allergic rhinitis, unspecified trigger J30.2 [facility] [address] [place] [address] [id number] [place] [address] 18 Dec, 2019 Moderate episode of recurrent major depr essive disorder F33.1 [facility] [address] [place] [address] [id number] [place] [address] 17 Dec, 2019 Chronic obstructive pulmonary disease, u nspecified COPD type J44.9 and Cough R05 [facility] [address] [place] [address] [id number] [place] [address] Dec, Chronic obstructive pulmonary disease wi th acute exacerbation J44.1 and Chronic obstructive pulmonary disease, unspecified COPD type J44.9 [facility] [address] [place] [address] [id number] [place] [address] Nov, [facility] [address] [place] [address] [id number] [place] [address] Nov, [facility] [id number] [id number] Oct, Community acquired pneumonia, unspecifie d laterality J18.9 [facility] [place] [address] [id number] [place] [id number] Oct, Community acquired pneumonia, unspecifie d laterality J18.9 and Chronic obstructive pulmonary disease with acute exacerbation J44.1 [facility] [place] [address] [id number] [place] [id number] Oct, [facility] [place] [address] [id number] [place] [id number] Oct, [facility] [address] [id number] [place] [id number] Oct, Hip bursitis, left M70.72 ; Pain in righ t shoulder M25.511 ; Other chronic pain G89.29 and Moderate episode of recurrent major depressive disorder F33.1 [facility] [place] [address] [id number] [place] [id number] Sep, Encounter for immunization Z23 [facility] [place] [address] [id number] [place] [id number] Sep, [facility] [place] [address] [id number] [place] [id number] Sep, Chronic obstructive pulmonary disease, u nspecified COPD type J44.9 [facility] [place] [address] [id number] [place] [id number] Sep, Moderate episode of recurrent major depr essive disorder F33.1 [facility] [place] [address] [id number] [place] [id number] Aug, Acute pain of right shoulder M25.511 and Injury of right rotator cuff, subsequent encounter S46.001D [facility] [place] [address] [id number] [place] [id number] Aug, [facility] [place] [address] [id number] [place] [id number] Aug, Moderate episode of recurrent major depr essive disorder F33.1 and Chronic obstructive pulmonary disease, unspecified COPD type J44.9 [facility] [address] [id number] [place] [address] Jul, Injury of right rotator cuff, subsequent encounter S46.001D ; Sciatic leg pain M54.30 and Acute pain of right shoulder M25.511 [facility] [address] [address] [id number] [place] [id number] Jul, [facility] [place] [address] [id number] [place] [id number] Jul, Community acquired pneumonia of left low er lobe of lung J18.1 [facility] [address] [id number] [place] [id number] Jul, [facility] ESTRELLA [address] [id number] [place] [id number] Jul, Injury of right rotator cuff, subsequent encounter S46.001D VERONIKA Raza [facility] [address] [id number] [place] [id number] Jul, [facility] ESTRELLA [address] [id number] [place] [id number] Jul, [facility] [place] [address] [id number] [place] [id number] Jul, Screening for thyroid disorder Z13.29 [facility] [place] [address] [facility] [address] [id number] [id number] Jun, Right shoulder pain, unspecified chronic ity M25.511 and Injury of right shoulder, initial encounter S49.91XA [facility] [place] [address] [id number] [place] [id number] Jun, Right shoulder pain, unspecified chronic ity M25.511 and Injury of right shoulder, initial encounter S49.91XA TAYSENick [place] [address] [id number] [place] [id number] Jun, Moderate episode of recurrent major depr essive disorder F33.1 ; Chronic obstructive pulmonary disease, unspecified COPD type J44.9 ; Mixed hyperlipidemia E78.2 and Hypothyroidism, unspecified type E03.9 [facility] [place] [address] [id number] [place] [id number] Jun, Chronic obstructive pulmonary disease, u nspecified COPD type J44.9 [facility] [place] [address] [id number] [place] [id number] May, Contusion of right knee, initial encount er S80.01XA [facility] [place] [address] [id number] [place] [id number] May, Moderate episode of recurrent major depr essive disorder F33.1 ; Chronic obstructive pulmonary disease, unspecified COPD type J44.9 and Sciatic leg pain M54.30 [facility] [place] [address] [id number] [place] [id number] May, [facility] [place] [address] [id number] [place] [id number] Apr, Urinary frequency R35.0 VERONIKA Holly0 [facility] [id number] [facility] [place] [place] [id number] Apr, [facility] [place] [address] [id number] [place] [id number] March, Contusion of right knee, initial encount er S80.01XA and Chronic obstructive pulmonary disease, unspecified COPD type J44.9 [facility] [place] [address] [id number] [place] [id number] March, Moderate episode of recurrent major depr essive disorder F33.1 and Urinary frequency R35.0 [facility] [place] [address] [id number] [place] [id number] Feb, [facility] [place] [address] [id number] [place] [id number] Feb, Chronic obstructive pulmonary disease, u nspecified COPD type J44.9 [facility] [place] [address] [id number] [place] [id number] Feb, Dysuria R30.0 [facility] [place] [address] [id number] [place] [id number] Feb, Moderate episode of recurrent major depr essive disorder F33.1 [facility] [place] [address] [id number] [place] [id number] Jan, Moderate episode of recurrent major depr essive disorder F33.1 ; Chronic obstructive pulmonary disease, unspecified COPD type J44.9 ; Psychophysiological insomnia F51.04 ; Sciatic leg pain M54.30 and Contusion of right knee, initial encounter S80.01XA [facility] [place] [address] [id number] [place] [id number] Dec, Chronic obstructive pulmonary disease, u nspecified COPD type J44.9 [facility] [place] [address] [id number] [place] [id number] Nov, Chronic obstructive pulmonary disease, u nspecified COPD type J44.9 [facility] [place] [address] [id number] [place] [id number] Nov, Contusion of right knee, initial encount er S80.01XA [facility] [place] [address] [id number] [place] [id number] Nov, Osteoarthritis of both knees, unspecifie d osteoarthritis type M17.0 ; Sciatic leg pain M54.30 and Moderate episode of recurrent major depressive disorder F33.1 [facility] [place] [address] [id number] [place] [id number] Oct, Psychophysiological insomnia F51.04 [facility] [place] [address] [id number] [place] [id number] Sep, [facility] [place] [facility] [address] [id number] [place] [id number] Sep, [facility] [place] [address] [id number] [place] [id number] Sep, Psychophysiological insomnia F51.04 [facility] [place] [address] [id number] [place] [id number] Aug, Breast cancer screening Z12.31 [facility] [place] [address] [id number] [place] [id number] Aug, [facility] [address] [id number] [facility] [place] [address] Aug, [facility] [place] [address] [id number] [place] [id number] Jul, [facility] [place] [address] [id number] [place] [id number] Jul, Chronic obstructive pulmonary disease, u nspecified COPD type J44.9 ; Osteoarthritis of both knees, unspecified osteoarthritis type M17.0 ; Moderate episode of recurrent major depressive disorder F33.1 and Sciatic leg pain M54.30 [facility] [place] [address] [id number] [place] [id number] Jun, Moderate episode of recurrent major depr essive disorder F33.1 ; Sciatic leg pain M54.30 and Chronic obstructive pulmonary disease, unspecified COPD type J44.9 [facility] [place] [address] [id number] [place] [id number] Jun, [facility] [place] [address] [id number] [place] [id number] May, Sciatic leg pain M54.30 [facility] [place] [address] [id number] [place] [id number] May, Chronic obstructive pulmonary disease, u nspecified COPD type J44.[address] [facility] [place] [address] [id number] [employer] [id number] May, [facility] [place] [address] [id number] [place] [id number] Apr, Moderate episode of recurrent major depr essive disorder F33.1 ; Sciatic leg pain M54.30 and Chronic obstructive pulmonary disease, unspecified COPD type J44.9 [facility] [place] [address] [id number] [place] [id number] March, [facility] [place] [address] [id number] [place] [id number] Feb, Sciatic leg pain M54.[address] [facility] [place] [address] [id number] [employer] [id number] Feb, [facility] [place] [address] [id number] [place] [id number] Dec, Moderate episode of recurrent major depr essive disorder F33.1 ; Sciatic leg pain M54.30 ; Chronic obstructive pulmonary disease, unspecified COPD type J44.9 and Screening for thyroid disorder Z13.29 [facility] [place] [address] [id number] [place] [id number] Dec, Chronic obstructive pulmonary disease, u nspecified COPD type J44.9 [facility] [place] [address] [id number] [place] [id number] Nov, Sciatic leg pain M54.[address] [facility] [address] [id number] [employer] [id number] Oct, [facility] [place] [address] [id number] [place] [id number] Oct, Acute pain of right shoulder M25.511 [facility] [place] [address] [id number] [place] [id number] Oct, Chronic obstructive pulmonary disease, u nspecified COPD type J44.9 [facility] [place] [address] [id number] [place] [id number] Oct, [facility] [place] [address] [id number] [place] [id number] Sep, Chronic obstructive pulmonary disease, u nspecified COPD type J44.9 and Sciatic leg pain M54.30 [facility] [place] [address] [id number] [place] [id number] Aug, Moderate episode of recurrent major depr essive disorder F33.1 and Chronic obstructive pulmonary disease, unspecified COPD type J44.[address] [facility] [address] [id number] [place] [id number] Aug, Moderate episode of recurrent major depr essive disorder F33.1 [facility] [place] [address] [id number] [place] [id number] Jul, Other depression F32.8 and Chronic obstr uctive pulmonary disease, unspecified COPD type J44.9 [facility] [place] [address] [id number] [place] [id number] Jul, Moderate episode of recurrent major depr essive disorder F33.1 [facility] [address] [id number] [place] [id number] Jun, [facility] [place] [address] [id number] [place] [id number] Jun, Moderate episode of recurrent major depr essive disorder F33.1 [facility] [place] [address] [id number] [place] [id number] Jun, Moderate episode of recurrent major depr essive disorder F33.1 [facility] [place] [address] [id number] [place] [id number] Jun, [facility] [place] [address] [id number] [place] [id number] Jun, Sciatic leg pain M54.30 [facility] [place] [address] [id number] [place] [id number] Jun, [facility] [place] [address] [id number] [place] [id number] May, Screening for thyroid disorder Z13.29 an d Screening for lipid disorders Z13.220 [facility] [place] [address] [id number] [place] [id number] May, Other depression F32.8 [facility] [place] [address] [id number] [place] [id number] Apr, Sciatic leg pain M54.30 [facility] [place] [address] [id number] [place] [id number] Apr, Screening for lipid disorders Z13.220 ; Screening for thyroid disorder Z13.29 and Chronic obstructive pulmonary disease, unspecified COPD type J44.9 [facility] [place] [address] [id number] [place] [id number] Apr, Screening for lipid disorders Z13.220 ; Screening for thyroid disorder Z13.29 and Chronic obstructive pulmonary disease, unspecified COPD type J44.9 [facility] [place] [address] [id number] [place] [id number] Apr, [facility] [place] [address] [id number] [place] [id number] Apr, Chronic obstructive pulmonary disease, u nspecified COPD type J44.9 [facility] [place] [id number] [place] [address] March, [facility] [place] [address] [id number] [place] [id number] March, Sciatic leg pain M54.30 and Other depres kobe F32.8 [facility] [place] [address] [id number] [place] [id number] March, [facility] [place] [address] [id number] [place] [id number] Jan, Other depression F32.8 and Sciatic leg p ain M54.30 [facility] [place] [address] [id number] [place] [id number] Jan, Sciatic leg pain M54.30 [facility] [place] [address] [id number] [place] [id number] Dec, Other depression F32.8 [facility] [place] [address] [id number] [place] [id number] Dec, Chronic obstructive pulmonary disease, u nspecified COPD type J44.9 [facility] [place] [address] [id number] [place] [id number] Nov, [facility] [place] [address] [id number] [place] [id number] Oct, Other depression F32.8 and Chronic obstr uctive pulmonary disease, unspecified COPD type J44.9 [facility] [place] [address] [id number] [place] [id number] Aug, [facility] [place] [address] [id number] [place] [id number] Aug, Other depression F32.8 ; Arthralgia of r ight temporomandibular joint M26.62 and Encounter for immunization Z23 [facility] [place] [address] [id number] [place] [id number] Aug, Encounter for well woman exam Z01.419 [facility] [place] [address] [id number] [place] [id number] Jul, Other depression F32.8 and Arthralgia of right temporomandibular joint M26.62 [facility] [place] [address] [id number] [place] [id number] Jun, [facility] [place] [address] [id number] [place] [address] Jun, [facility] [place] [address] [id number] [place] [id number] Jun, [facility] [place] [address] [id number] [place] [id number] Jun, Other depression F32.8 and Urinary tract infection without hematuria, site unspecified N39.0 [facility] [place] [address] [id number] [place] [id number] Apr, [facility] [place] [address] [id number] [place] [id number] Apr, Dysuria R30.0 [facility] [address] [facility] [id number] [address] March, [facility] [place] [address] [id number] [place] [id number] March, Urinary tract infection, site unspecifie d N39.0 [facility] [place] [address] [id number] [place] [id number] March, Urinary tract infection, site unspecifie d N39.0 [facility] [place] [address] [id number] [place] [id number] Feb, [facility] [place] [address] [id number] [place] [id number] Feb, Headache R51 and Ear pain H92.09 [facility] [place] [address] [id number] [place] [id number] Jan, Osteoarthritis of both knees, unspecifie d osteoarthritis type M17.0 and Hip bursitis, left M70.72 [facility] [place] [address] [id number] [place] [id number] Jan, [facility] [place] [address] [id number] [place] [id number] Dec, Unspecified arthropathy, site unspecifie d 716.90 and COPD (chronic obstructive pulmonary disease) 496 [facility] [place] [address] [id number] [place] [id number] Dec, [facility] [place] [address] [id number] [place] [id number] Nov, [facility] [place] [address] [id number] [place] [id number] Oct, [facility] [place] [address] [id number] [place] [id number] Sep, [facility] [place] [address] [id number] [place] [id number] Sep, [facility] [place] [address] [id number] [place] [id number] Aug, [facility] [address] [id number] [place] [id number] Aug, [facility] [place] [address] [id number] [place] [id number] Aug, Urinary tract infection N39.0 and Should er strain, right, initial encounter S46.911A [facility] [place] [address] [id number] [place] [id number] Aug, Screening breast examination Z12.39 and Encounter for immunization Z23 [facility] [place] [address] [facility] [id number] [place] [id number] Aug, zzCHBRAYAN SOLOMON [address] [facility] [id number] [place] [id number] Aug, [facility] [place] [address] [id number] [place] [id number] Jul, [facility] [place] [address] [facility] [id number] [place] [id number] Jun, [facility] [place] [address] [id number] [place] [id number] Jun, Allergic rhinitis, cause unspecified 477 .9 and Cough 786.2 [facility] [place] [address] [id number] [place] [id number] May, [facility] [place] [address] [id number] [place] [id number] May, [facility] [place] [address] [facility] [id number] [place] [id number] May, Visit for suture removal V58.32 [facility] [place] [address] [facility] [id number] [place] [id number] May, Dog bite 879.8 [facility] [place] [address] [facility] [id number] [place] [id number] Apr, Rib pain on right side 786.50 [facility] [place] [address] [id number] [place] [id number] Apr, [facility] [place] [address] [id number] [place] [id number] Apr, Allergic rhinitis, cause unspecified 477 .9 and Cough 786.2 [facility] [place] [address] [id number] [place] [id number] March, [facility] [place] [address] [id number] [place] [id number] March, [facility] [place] [address] [id number] [place] [id number] March, [facility] [place] [address] [id number] [place] [id number] March, [facility] [place] [address] [id number] [place] [id number] March, Cough 786.2 and Shortness of breath 786. 05 [facility] [place] [address] [id number] [place] [id number] March, [facility] [place] [address] [id number] [place] [id number] March, Cough 786.2 ; COPD (chronic obstructive pulmonary disease) 496 and Allergic rhinitis, cause unspecified 477.9 [facility] [place] [address] [id number] [place] [id number] Feb, Allergic rhinitis, cause unspecified 477 .9 ; Cough 786.2 and COPD (chronic obstructive pulmonary disease) 496 [facility] [address] [address] Feb, [facility] [id number] [place] [address] Feb, [facility] [address] [id number] [address] [place] [address] Jan, [facility] [address] [id number] Jan, [facility] [address] [id number] [address] [place] [id number] Jan, [facility] [id number] [place] [address], [place] [id number] Jan, [facility] [address] [id number] [address] [place] [address], [place] [address] Jan, [facility] [address] [id number] [place] [id number] Dec, [facility] [address] [id number] [address] [place] [address], [place] [id number] Dec, [facility] [address] [id number] [place] [id number] Dec, [facility] [address] [id number] [address] [place] [address], [place] [id number] Dec, [facility] [address] [id number] [place] [id number] Dec, [facility] [address] [facility] [id number] [address] [place] [address], [place] [id number] Dec, [facility] [address] [facility] [id number] [address] [place] [address], [place] [address] Dec, [facility] [place] [address] [id number] [place] [id number] Nov, [facility] [address] [facility] [id number] [address] [place] [address], [place] [address] Nov, [facility] [address] [facility] [id number] [address] [place] [address], [place] [address] Nov, [facility] [place] [address] [id number] [place] [id number] Nov, [facility] [address] [id number] [address] [place] [address], [place] [address] Nov, [facility] [place] [address] [id number] [place] [id number] Oct, [facility] [address] [id number] [address] [place] [address], [place] [address] Oct, [facility] [place] [address] [id number] [place] [id number] Sep, [facility] [address] [id number] [address] [place] [address], [place] [address] Sep, [facility] [place] [address] [id number] [place] [id number] Sep, [facility] [address] [id number] [address] [place] [address], [place] [address] Sep, [facility] [place] [address] [id number] [place] [id number] Aug, [facility] [address] [id number] [address] [place] [address], [place] [address] Aug, [facility] [place] [address] [id number] [place] [id number] Aug, [facility] [address] [id number] [address] [place] [address], [place] [address] Aug, [facility] [address] [id number] [address] [place] [address], [place] [address] Jul, [facility] [place] [address] [id number] [place] [id number] Jul, [facility] [place] [address] [id number] [place] [id number] Jul, [facility] [place] [address] [id number] [place] [id number] Jul, [facility] [address] [id number] [address] [place] [address] Jul, [facility] [address] [id number] [address] [place] [address], [place] [address] Jul, [facility] [address] [id number] [address] [place] [address], [place] [address] Jul, [facility] [address] [id number] [address] [place] [address] Jul, [facility] [place] [address] [id number] [place] [id number] Jun, [facility] [address] [id number] [address] [place] [address], [place] [address] Jun, [facility] [address] [id number] [facility] [place] [address] Jun, [facility] [place] [address] [id number] [place] [id number] Jun, [facility] [address] [id number] [facility] [place] [address] Jun, [facility] [place] [address] [id number] [place] [id number] Jun, [facility] [address] [id number] [facility] [place] [address] Jun, [facility] [place] [address] [id number] [place] [id number] Apr, [facility] [address] [id number] [facility] [place] [address] Apr, [facility] [place] [address] [id number] [place] [id number] Apr, [facility] [address] [id number] [facility] [place] [address] Apr, [facility] [place] [address] [id number] [place] [id number] Apr, [facility] [address] [id number] [address] [place] [address], [place] [address] Apr, [facility] [address] [id number] [address] [place] [address], [place] [address] March, [facility] [address] [id number] [address] [place] [address], [place] [address] March, [facility] [place] [address] [id number] [place] [id number] March, [facility] [place] [address] [id number] [place] [id number] Feb, [facility] [address] [id number] [facility] [place] [address] Feb, [facility] [place] [address] [id number] [place] [id number] Jan, [facility] [address] [id number] [facility] [place] [address] Jan, [facility] [place] [address] [id number] [place] [id number] Dec, [facility] [address] [id number] [facility] [place] [address] Dec, [facility] [place] [address] [id number] [place] [id number] Dec, [facility] [address] [id number] [address] [place] [address], [place] [address] Dec, [facility] [address] [facility] [id number] [address] [place] [address], [place] [address] Dec, [facility] [address] [facility] [id number] [address] [place] [address], [place] [address] Dec, [facility] [place] [address] [id number] [place] [id number] Nov, [facility] [address] [id number] [address] [place] [address], [place] [address] Nov, [facility] [place] [address] [id number] [place] [id number] Nov, [facility] [address] [id number] [address] [place] [address], [place] [address] Nov, [facility] [place] [address] [id number] [place] [id number] Nov, [facility] [address] [id number] [address] [place] [address], [place] [address] Nov, [facility] [place] [address] [id number] [place] [id number] Oct, [facility] [address] [id number] [address] [place] [address], [place] [address] Oct, [facility] [address] [id number] [address] [place] [address] Oct, [facility] [place] [address] [id number] [place] [id number] Oct, [facility] [address] [facility] [id number] [address] [place] [address] Sep, [facility] [address] [facility] [id number] [address] [place] [address] Sep, [facility] [place] [address] [id number] [place] [id number] Sep, [facility] [address] [id number] [address] [place] [address] Sep, [facility] [place] [address] [id number] [place] [id number] Aug, [facility] [address] [facility] [id number] [address] [place] [address] Aug, [facility] [place] [address] [id number] [place] [id number] Jul, [facility] [place] [address] [id number] [place] [id number] Jul, [facility] [place] [address] [id number] [place] [id number] Jun, [facility] [place] [address] [id number] [place] [id number] May, [facility] [place] [address] [id number] [place] [id number] May, [facility] [address] [id number] [address] [place] [address], [place] [address] May, [facility] [place] [address] [id number] [place] [id number] Apr, [facility] [place] [address] [id number] [place] [id number] Apr, [facility] [place] [address] [id number] [place] [id number] March, [facility] [place] [address] [id number] [place] [id number] Feb, [facility] [place] [address] [id number] [place] [id number] Feb, [facility] [place] [address] [id number] [place] [id number] Jan, [facility] [place] [address] [id number] [place] [id number] Jan, [facility] [place] [address] [id number] [place] [id number] Dec, [facility] [place] [address] [id number] [place] [id number] Nov, [facility] [address] [facility] [id number] [address] [place] [address] Oct, [facility] [address] [facility] [id number] [address] [place] [address] Oct, [facility] [place] [address] [id number] [place] [id number] Oct, [facility] [address] [facility] [id number] [address] [place] [address] Oct, [facility] [address] [facility] [id number] [address] [place] [address] Oct, [facility] [place] [address] [id number] [place] [id number] Oct, [facility] [place] [address] [id number] [place] [id number] Sep, [facility] [address] [facility] [id number] [address] [place] [address] Sep, [facility] [place] [address] [id number] [place] [id number] Sep, [facility] [address] [facility] [id number] [address] [place] [address] Sep, [facility] [place] [address] [id number] [place] [id number] Aug, [facility] [address] [facility] [id number] [address] [place] [address] Aug, [facility] [place] [address] [id number] [place] [id number] Aug, [facility] [place] [address] [id number] [place] [id number] Jun, [facility] [place] [address] [id number] [place] [id number] Jun, [facility] [address] [id number] [address] [place] [address] May, [facility] [place] [address] [id number] [place] [id number] Apr, [facility] [place] [address] [id number] [place] [id number] March, [facility] [place] [address] [id number] [place] [id number] Feb, [facility] [place] [address] [id number] [place] [id number] Jan, [facility] [place] [address] [id number] [place] [id number] Nov, [facility] [address] [place] [id number] [address] [place] [address] Sep, [facility] [address] [facility] [id number] [address] [place] [address] Sep, [facility] [address] [place] [id number] [address] [place] [address] Aug, [facility] [address] [place] [id number] [address] [place] [address] Apr, [facility] [address] [address] March, IMMUNIZATIONS No Known Immunizations SOCIAL HISTORY Never Assessed REASON FOR VISIT PLAN OF CARE VITAL SIGNS MEDICATIONS Unknown [...]
--- OUTSIDE RECORDS SUMMARY | 2020-03-30 07:10 | XMS REPORT ---
Author Author Devi TATE Organization [address] Address [address] [place] [address] Care Team Providers Care Inside Account Representative Name Role Phone TARIQ TATE Unavailable PROBLEMS Type Condition ICD9-CM Code SLT08-NT Code Onset Dates Condition S tatus SNOMED Code Problem Osteoarthritis of both knees, unspecified osteoarthritis t ype M17.0 Active 937283131 Problem Other depression F32.8 Active 354 96171 Problem Hip bursitis, left M70.72 Active 8 4327760 Problem Chronic obstructive pulmonary disease, unspecified COPD ty pe J44.9 Active 60509216 Problem Arthralgia of right temporomandibular joint M26.62 Active 81239673 Problem Psychophysiological insomnia F51.04 A ctive 688909307 Problem Hypothyroidism, unspecified type E03.9 Active 81055384 Problem Hypothyroidism, unspecified type E03.9 Active 30628960 Problem Chronic obstructive pulmonary disease with acute exacerbat ion J44.1 Active 449588065 Problem Moderate episode of recurrent major depressive disorder F33.1 Active 403071986 Problem Seasonal allergic rhinitis, unspecified trigger J3 0.2 Active 677116267 Problem Sciatic leg pain M54.30 Active 230 14839 Problem Mixed hyperlipidemia E78.2 Active 036608242 Problem Mixed hyperlipidemia E78.2 Active 441697752 Problem Other chronic pain G89.29 Active 8 3788513 Problem Chronic obstructive pulmonary disease with acute exacerbat ion J44.1 Active 962119923 ALLERGIES No Information ENCOUNTERS Encounter Location Date Diagnosis [facility] [address] [id number] [id number] Feb, Moderate episode of recurrent major depr essive disorder F33.[address] [id number] [place] [address] Jan, [address] [id number] [address] Jan, Chronic obstructive pulmonary disease, u nspecified COPD type J44.9 [facility] [address] [place] [address] [id number] [place] [address] Jan, Moderate episode of recurrent major depr essive disorder F33.1 [facility] [address] [place] [address] [id number] [place] [address] 25 Dec, 2019 Seasonal allergic rhinitis, unspecified trigger J30.2 [facility] [address] [place] [address] [id number] [place] [address] 18 Dec, 2019 Moderate episode of recurrent major depr essive disorder F33.1 [facility] [address] [place] [address] [id number] [place] [address] 17 Dec, 2019 Chronic obstructive pulmonary disease, u nspecified COPD type J44.9 and Cough R05 [facility] [address] [place] [address] [id number] [place] [address] Dec, Chronic obstructive pulmonary disease wi th acute exacerbation J44.1 and Chronic obstructive pulmonary disease, unspecified COPD type J44.9 [facility] [address] [place] [address] [id number] [place] [address] Nov, [facility] [address] [place] [address] [id number] [place] [address] Nov, [facility] [id number] [id number] Oct, Community acquired pneumonia, unspecifie d laterality J18.9 [facility] [place] [address] [id number] [place] [id number] Oct, Community acquired pneumonia, unspecifie d laterality J18.9 and Chronic obstructive pulmonary disease with acute exacerbation J44.1 [facility] [place] [address] [id number] [place] [id number] Oct, [facility] [place] [address] [id number] [place] [id number] Oct, [facility] [address] [id number] [place] [id number] Oct, Hip bursitis, left M70.72 ; Pain in righ t shoulder M25.511 ; Other chronic pain G89.29 and Moderate episode of recurrent major depressive disorder F33.1 [facility] [place] [address] [id number] [place] [id number] Sep, Encounter for immunization Z23 [facility] [place] [address] [id number] [place] [id number] Sep, [facility] [place] [address] [id number] [place] [id number] Sep, Chronic obstructive pulmonary disease, u nspecified COPD type J44.9 [facility] [place] [address] [id number] [place] [id number] Sep, Moderate episode of recurrent major depr essive disorder F33.1 [facility] [place] [address] [id number] [place] [id number] Aug, Acute pain of right shoulder M25.511 and Injury of right rotator cuff, subsequent encounter S46.001D [facility] [place] [address] [id number] [place] [id number] Aug, [facility] [place] [address] [id number] [place] [id number] Aug, Moderate episode of recurrent major depr essive disorder F33.1 and Chronic obstructive pulmonary disease, unspecified COPD type J44.9 [facility] [address] [id number] [place] [id number] Jul, Injury of right rotator cuff, subsequent encounter S46.001D ; Sciatic leg pain M54.30 and Acute pain of right shoulder M25.511 [facility] [address] [id number] [place] [id number] Jul, [facility] [place] [address] [id number] [place] [id number] Jul, Community acquired pneumonia of left low er lobe of lung J18.1 [facility] [address] [id number] [place] 9[address] Jul, [facility] [place] [address] [id number] [place] [id number] Jul, Injury of right rotator cuff, subsequent encounter S46.001D VERONIKA Raza [facility] [id number] [place] [id number] Jul, [facility] [address] [id number] [place] [id number] Jul, [facility] [place] [address] [id number] [place] [id number] Jul, Screening for thyroid disorder Z13.29 [facility] [address] [facility] [address] [id number] [address] Jun, Right shoulder pain, unspecified chronic ity M25.511 and Injury of right shoulder, initial encounter S49.91XA [facility] [place] [address] [id number] [place] [id number] Jun, Right shoulder pain, unspecified chronic ity M25.511 and Injury of right shoulder, initial encounter S49.91XA TAYSENick [place] [address] [id number] [place] [id number] Jun, Moderate episode of recurrent major depr essive disorder F33.1 ; Chronic obstructive pulmonary disease, unspecified COPD type J44.9 ; Mixed hyperlipidemia E78.2 and Hypothyroidism, unspecified type E03.9 [facility] [place] [address] [id number] [place] [id number] Jun, Chronic obstructive pulmonary disease, u nspecified COPD type J44.9 [facility] [place] [address] [id number] [place] [id number] May, Contusion of right knee, initial encount er S80.01XA [facility] [place] [address] [id number] [place] [id number] May, Moderate episode of recurrent major depr essive disorder F33.1 ; Chronic obstructive pulmonary disease, unspecified COPD type J44.9 and Sciatic leg pain M54.30 [facility] [place] [address] [id number] [place] [id number] May, [facility] [place] [address] [id number] [place] [id number] Apr, Urinary frequency R35.0 VERONIKA Holly[address] [facility] [id number] [id number] Apr, [facility] [place] [address] [id number] [place] [id number] March, Contusion of right knee, initial encount er S80.01XA and Chronic obstructive pulmonary disease, unspecified COPD type J44.9 [facility] [place] [address] [id number] [place] [id number] March, Moderate episode of recurrent major depr essive disorder F33.1 and Urinary frequency R35.0 [facility] [place] [address] [id number] [place] [id number] Feb, [facility] [place] [address] [id number] [place] [id number] Feb, Chronic obstructive pulmonary disease, u nspecified COPD type J44.9 [facility] [place] [address] [id number] [place] [id number] Feb, Dysuria R30.0 [facility] [place] [address] [id number] [place] [id number] Feb, Moderate episode of recurrent major depr essive disorder F33.1 [facility] [place] [address] [id number] [place] [id number] Jan, Moderate episode of recurrent major depr essive disorder F33.1 ; Chronic obstructive pulmonary disease, unspecified COPD type J44.9 ; Psychophysiological insomnia F51.04 ; Sciatic leg pain M54.30 and Contusion of right knee, initial encounter S80.01XA [facility] [place] [address] [id number] [place] [id number] Dec, Chronic obstructive pulmonary disease, u nspecified COPD type J44.9 [facility] [place] [address] [id number] [place] [id number] Nov, Chronic obstructive pulmonary disease, u nspecified COPD type J44.9 [facility] [place] [address] [id number] [place] [id number] Nov, Contusion of right knee, initial encount er S80.01XA [facility] [place] [address] [id number] [place] [id number] Nov, Osteoarthritis of both knees, unspecifie d osteoarthritis type M17.0 ; Sciatic leg pain M54.30 and Moderate episode of recurrent major depressive disorder F33.1 [facility] [place] [address] [id number] [place] [id number] Oct, Psychophysiological insomnia F51.04 [facility] [place] [address] [id number] [place] [id number] Sep, [facility] [place] [facility] [address] [id number] [place] [id number] Sep, [facility] [place] [address] [id number] [place] [id number] Sep, Psychophysiological insomnia F51.04 [facility] [place] [address] [id number] [place] [id number] Aug, Breast cancer screening Z12.31 [facility] [place] [address] [id number] [place] [id number] Aug, [facility] [address] [id number] [facility] [place] [place] [address] Aug, [facility] [place] [address] [id number] [place] [id number] Jul, [facility] [place] [address] [id number] [place] [id number] Jul, Chronic obstructive pulmonary disease, u nspecified COPD type J44.9 ; Osteoarthritis of both knees, unspecified osteoarthritis type M17.0 ; Moderate episode of recurrent major depressive disorder F33.1 and Sciatic leg pain M54.30 [facility] [place] [address] [id number] [place] [id number] Jun, Moderate episode of recurrent major depr essive disorder F33.1 ; Sciatic leg pain M54.30 and Chronic obstructive pulmonary disease, unspecified COPD type J44.9 [facility] [place] [address] [id number] [place] [id number] Jun, [facility] [place] [address] [id number] [place] [id number] May, Sciatic leg pain M54.30 [facility] [place] [address] [id number] [place] [id number] May, Chronic obstructive pulmonary disease, u nspecified COPD type J44.[address] [facility] [address] [id number] [facility] [place] [id number] May, [facility] [place] [address] [id number] [place] [id number] Apr, Moderate episode of recurrent major depr essive disorder F33.1 ; Sciatic leg pain M54.30 and Chronic obstructive pulmonary disease, unspecified COPD type J44.9 [facility] [place] [address] [id number] [place] [id number] March, [facility] [place] [address] [id number] [place] [id number] Feb, Sciatic leg pain M54.[address] [facility] [address] [id number] [facility] [id number] Feb, [facility] [place] [address] [id number] [place] [id number] Dec, Moderate episode of recurrent major depr essive disorder F33.1 ; Sciatic leg pain M54.30 ; Chronic obstructive pulmonary disease, unspecified COPD type J44.9 and Screening for thyroid disorder Z13.29 [facility] [place] [address] [id number] [place] [id number] Dec, Chronic obstructive pulmonary disease, u nspecified COPD type J44.9 [facility] [place] [address] [id number] [place] [id number] Nov, Sciatic leg pain M54.[address] [facility] [address] [id number] [facility] [id number] Oct, [facility] [place] [address] [id number] [place] [id number] Oct, Acute pain of right shoulder M25.511 [facility] [place] [address] [id number] [place] [id number] Oct, Chronic obstructive pulmonary disease, u nspecified COPD type J44.9 [facility] [place] [address] [id number] [place] [id number] Oct, [facility] [place] [address] [id number] [place] [id number] Sep, Chronic obstructive pulmonary disease, u nspecified COPD type J44.9 and Sciatic leg pain M54.30 [facility] [place] [address] [id number] [place] [id number] Aug, Moderate episode of recurrent major depr essive disorder F33.1 and Chronic obstructive pulmonary disease, unspecified COPD type J44.[address] [facility] [address] [id number] [place] [id number] Aug, Moderate episode of recurrent major depr essive disorder F33.1 [facility] [place] [address] [id number] [place] [id number] Jul, Other depression F32.8 and Chronic obstr uctive pulmonary disease, unspecified COPD type J44.9 [facility] [place] [address] [id number] [place] [id number] Jul, Moderate episode of recurrent major depr essive disorder F33.1 [facility] [id number] [place] [id number] Jun, [facility] [place] [address] [id number] [place] [id number] Jun, Moderate episode of recurrent major depr essive disorder F33.1 [facility] [place] [address] [id number] [place] [id number] Jun, Moderate episode of recurrent major depr essive disorder F33.1 [facility] [place] [address] [id number] [place] [id number] Jun, [facility] [place] [address] [id number] [place] [id number] Jun, Sciatic leg pain M54.30 [facility] [place] [address] [id number] [place] [id number] Jun, [facility] [place] [address] [id number] [place] [id number] May, Screening for thyroid disorder Z13.29 an d Screening for lipid disorders Z13.220 [facility] [place] [address] [id number] [place] [id number] May, Other depression F32.8 [facility] [place] [address] [id number] [place] [id number] Apr, Sciatic leg pain M54.30 [facility] [place] [address] [id number] [place] [id number] Apr, Screening for lipid disorders Z13.220 ; Screening for thyroid disorder Z13.29 and Chronic obstructive pulmonary disease, unspecified COPD type J44.9 [facility] [place] [address] [id number] [place] [id number] Apr, Screening for lipid disorders Z13.220 ; Screening for thyroid disorder Z13.29 and Chronic obstructive pulmonary disease, unspecified COPD type J44.9 [facility] [place] [address] [id number] [place] [id number] Apr, [facility] [place] [address] [id number] [place] [id number] Apr, Chronic obstructive pulmonary disease, u nspecified COPD type J44.9 [facility] [place] [id number] [place] [address] March, [facility] [place] [address] [id number] [place] [id number] March, Sciatic leg pain M54.30 and Other depres kobe F32.8 [facility] [place] [address] [id number] [place] [id number] March, [facility] [place] [address] [id number] [place] [id number] Jan, Other depression F32.8 and Sciatic leg p ain M54.30 [facility] [place] [address] [id number] [place] [id number] Jan, Sciatic leg pain M54.30 [facility] [place] [address] [id number] [place] [id number] Dec, Other depression F32.8 [facility] [place] [address] [id number] [place] [id number] Dec, Chronic obstructive pulmonary disease, u nspecified COPD type J44.9 [facility] [place] [address] [id number] [place] [id number] Nov, [facility] [place] [address] [id number] [place] [id number] Oct, Other depression F32.8 and Chronic obstr uctive pulmonary disease, unspecified COPD type J44.9 [facility] [place] [address] [id number] [place] [id number] Aug, [facility] [place] [address] [id number] [place] [id number] Aug, Other depression F32.8 ; Arthralgia of r ight temporomandibular joint M26.62 and Encounter for immunization Z23 [facility] [place] [address] [id number] [place] [id number] Aug, Encounter for well woman exam Z01.419 [facility] [place] [address] [id number] [place] [id number] Jul, Other depression F32.8 and Arthralgia of right temporomandibular joint M26.62 [facility] [place] [address] [id number] [place] [id number] Jun, [facility] [place] [address] [id number] [place] [address] Jun, [facility] [place] [address] [id number] [place] [id number] Jun, [facility] [place] [address] [id number] [place] [id number] Jun, Other depression F32.8 and Urinary tract infection without hematuria, site unspecified N39.0 [facility] [place] [address] [id number] [place] [id number] Apr, [facility] [place] [address] [id number] [place] [id number] Apr, Dysuria R30.0 [facility] [address] [facility] [id number] 100[place] [address] March, [facility] [place] [address] [id number] [place] [id number] March, Urinary tract infection, site unspecifie d N39.0 [facility] [place] [address] [id number] [place] [id number] March, Urinary tract infection, site unspecifie d N39.0 [facility] [place] [address] [id number] [place] [id number] Feb, [facility] [place] [address] [id number] [place] [id number] Feb, Headache R51 and Ear pain H92.09 [facility] [place] [address] [id number] [place] [id number] Jan, Osteoarthritis of both knees, unspecifie d osteoarthritis type M17.0 and Hip bursitis, left M70.72 [facility] [place] [address] [id number] [place] [id number] Jan, [facility] [place] [address] [id number] [place] [id number] Dec, Unspecified arthropathy, site unspecifie d 716.90 and COPD (chronic obstructive pulmonary disease) 496 [facility] [place] [address] [id number] [place] [id number] Dec, [facility] [place] [address] [id number] [place] [id number] Nov, [facility] [place] [address] [id number] [place] [id number] Oct, [facility] [place] [address] [id number] [place] [id number] Sep, [facility] [place] [address] [id number] [place] [id number] Sep, [facility] [place] [address] [id number] [place] [id number] Aug, [facility] [address] [id number] [place] [id number] Aug, [facility] [place] [address] [id number] [place] [id number] Aug, Urinary tract infection N39.0 and Should er strain, right, initial encounter S46.911A [facility] [place] [address] [id number] [place] [id number] Aug, Screening breast examination Z12.39 and Encounter for immunization Z23 [facility] [place] [address] [facility] [id number] [place] [id number] Aug, [facility] SOLOMON [address] [facility] [id number] [place] [id number] Aug, [facility] [place] [address] [id number] [place] [id number] Jul, [facility] [place] [address] [facility] [id number] [place] [id number] Jun, [facility] [place] [address] [id number] [place] [id number] Jun, Allergic rhinitis, cause unspecified 477 .9 and Cough 786.2 [facility] [place] [address] [id number] [place] [id number] May, [facility] [place] [address] [id number] [place] [id number] May, [facility] [place] [address] [facility] [id number] [place] [id number] May, Visit for suture removal V58.32 [facility] [place] [address] [facility] [id number] [place] [id number] May, Dog bite 879.8 [facility] [place] [address] [facility] [id number] [place] [id number] Apr, Rib pain on right side 786.50 [facility] [place] [address] [id number] [place] [id number] Apr, [facility] [place] [address] [id number] [place] [id number] Apr, Allergic rhinitis, cause unspecified 477 .9 and Cough 786.2 [facility] [place] [address] [id number] [place] [id number] March, [facility] [place] [address] [id number] [place] [id number] March, [facility] [place] [address] [id number] [place] [id number] March, [facility] [place] [address] [id number] [place] [id number] March, [facility] [place] [address] [id number] [place] [id number] March, Cough 786.2 and Shortness of breath 786. 05 [facility] [place] [address] [id number] [place] [id number] March, [facility] [place] [address] [id number] [place] [id number] March, Cough 786.2 ; COPD (chronic obstructive pulmonary disease) 496 and Allergic rhinitis, cause unspecified 477.9 [facility] [place] [address] [id number] [place] [id number] Feb, Allergic rhinitis, cause unspecified 477 .9 ; Cough 786.2 and COPD (chronic obstructive pulmonary disease) 496 [facility] [address] [address] Feb, [facility] [address] [place] [id number] [address] [place] [address] Feb, [facility] [address] [place] [id number] [address] [place] [address] Jan, [facility] [address] [address] Jan, [facility] [address] [place] [id number] [address] [place] [address] Jan, [facility] [id number] [place] [address], [place] [id number] Jan, [facility] [address] [id number] [address] [place] [address], [place] [address] Jan, [facility] [place] [address] [id number] [place] [id number] Dec, [facility] [address] [id number] [address] [place] [address], [place] [id number] Dec, [facility] [place] [address] [id number] [place] [id number] Dec, [facility] [address] [id number] [address] [place] [address], [place] [id number] Dec, [facility] [place] [address] [id number] [place] [id number] Dec, [facility] [address] [facility] [id number] [address] [place] [address], [place] [id number] Dec, [facility] [address] [facility] [id number] [address] [place] [address], [place] [id number] Dec, [facility] [place] [address] [id number] [place] [id number] Nov, [facility] [address] [facility] [id number] [address] [place] [address], [place] [id number] Nov, [facility] [address] [facility] [id number] [address] [place] [address], [place] [id number] Nov, [facility] [place] [address] [id number] [place] [id number] Nov, [facility] [address] [id number] [address] [place] [address], [place] [id number] Nov, [facility] [place] [address] [id number] [place] [id number] Oct, [facility] [address] [id number] [address] [place] [address], [place] [id number] Oct, [facility] [place] [address] [id number] [place] [id number] Sep, [facility] [address] [id number] [address] [place] [address], [place] [address] Sep, [facility] [place] [address] [id number] [place] [id number] Sep, [facility] [address] [id number] [address] [place] [address], [place] [address] Sep, [facility] [place] [address] [id number] [place] [id number] Aug, [facility] [address] [id number] [address] [place] [address], [place] [address] Aug, [facility] [place] [address] [id number] [place] [id number] Aug, [facility] [address] [id number] [address] [place] [address], [place] [address] Aug, [facility] [address] [id number] [address] [place] [address], [place] [address] Jul, [facility] [place] [address] [id number] [place] [id number] Jul, [facility] [place] [address] [id number] [place] [id number] Jul, [facility] [place] [address] [id number] [place] [id number] Jul, [facility] [address] [id number] [address] [place] [id number] Jul, [facility] [address] [id number] [address] [place] [address], [place] [address] Jul, [facility] [address] [id number] [address] [place] [address], [place] [address] Jul, [facility] [address] [id number] [address] [place] [id number] Jul, [facility] [place] [address] [id number] [place] [id number] Jun, [facility] [address] [id number] [address] [place] [address], [place] [address] Jun, [facility] [address] [id number] [facility] [place] [address] Jun, [facility] [place] [address] [id number] [place] [id number] Jun, [facility] [address] [id number] [facility] [place] [address] Jun, [facility] [place] [address] [id number] [place] [id number] Jun, [facility] [address] [id number] [facility] [place] [address] Jun, [facility] [place] [address] [id number] [place] [id number] Apr, [facility] [address] [id number] [facility] [place] [address] Apr, [facility] [place] [address] [id number] [place] [id number] Apr, [facility] [address] [id number] [facility] [place] [address] Apr, [facility] [place] [address] [id number] [place] [id number] Apr, [facility] [address] [id number] [address] [place] [address], [place] [address] Apr, [facility] [address] [id number] [address] [place] [address], [place] [address] March, [facility] [address] [id number] [address] [place] [address], [place] [address] March, [facility] [place] [address] [id number] [place] [id number] March, [facility] [place] [address] [id number] [place] [id number] Feb, [facility] [address] [id number] [facility] [place] [address] Feb, [facility] [place] [address] [id number] [place] [id number] Jan, [facility] [address] [id number] [facility] [place] [address] Jan, [facility] [place] [address] [id number] [place] [id number] Dec, [facility] [address] [id number] [facility] [place] [address] Dec, [facility] [place] [address] [id number] [place] [id number] Dec, [facility] [address] [id number] [address] [place] [address], [place] [address] Dec, [facility] [address] [facility] [id number] [address] [place] [address], [place] [address] Dec, [facility] [address] [facility] [id number] [address] [place] [address], [place] [address] Dec, [facility] [place] [address] [id number] [place] [id number] Nov, [facility] [address] [id number] [address] [place] [address], [place] [address] Nov, [facility] [place] [address] [id number] [place] [id number] Nov, [facility] [address] [id number] [address] [place] [address], [place] [address] Nov, [facility] [place] [address] [id number] [place] [id number] Nov, [facility] [address] [id number] [address] [place] [address], [place] [address] Nov, [facility] [place] [address] [id number] [place] [id number] Oct, [facility] [address] [id number] [address] [place] [address], [place] [address] Oct, [facility] [address] [id number] [address] [place] [id number] Oct, [facility] [place] [address] [id number] [place] [id number] Oct, [facility] [address] [facility] [id number] [address] [place] [address] Sep, [facility] [address] [facility] [id number] [address] [place] [address] Sep, [facility] [place] [address] [id number] [place] [id number] Sep, [facility] [address] [id number] [address] [place] [id number] Sep, [facility] [place] [address] [id number] [place] [id number] Aug, [facility] [address] [facility] [id number] [address] [place] [address] Aug, [facility] [place] [address] [id number] [place] [id number] Jul, [facility] [place] [address] [id number] [place] [id number] Jul, [facility] [place] [address] [id number] [place] [id number] Jun, [facility] [place] [address] [id number] [place] [id number] May, [facility] [place] [address] [id number] [place] [id number] May, [facility] [address] [id number] [address] [place] [address], [place] [address] May, [facility] [place] [address] [id number] [place] [id number] Apr, [facility] [place] [address] [id number] [place] [id number] Apr, [facility] [place] [address] [id number] [place] [id number] March, [facility] [place] [address] [id number] [place] [id number] Feb, [facility] [place] [address] [id number] [place] [id number] Feb, [facility] [place] [address] [id number] [place] [id number] Jan, [facility] [place] [address] [id number] [place] [id number] Jan, [facility] [place] [address] [id number] [place] [id number] Dec, [facility] [place] [address] [id number] [place] [id number] Nov, [facility] [address] [facility] [id number] [address] [place] [id number] Oct, [facility] [address] [facility] [id number] [address] [place] [id number] Oct, [facility] [place] [address] [id number] [place] [id number] Oct, [facility] [address] [facility] [id number] [address] [place] [id number] Oct, [facility] [address] [facility] [id number] [address] [place] [address] Oct, [facility] [place] [address] [id number] [place] [id number] Oct, [facility] [place] [address] [id number] [place] [id number] Sep, [facility] [address] [facility] [id number] [address] [place] [address] Sep, [facility] [place] [address] [id number] [place] [id number] Sep, [facility] [address] [facility] [id number] [address] [place] [address] Sep, [facility] [place] [address] [id number] [place] [id number] Aug, [facility] [address] [facility] [id number] [address] [place] [address] Aug[facility] [place] [address] [id number] [place] [id number] Aug, [facility] [place] [address] [id number] [place] [id number] Jun, [facility] [place] [address] [id number] [place] [id number] Jun, [facility] [address] [id number] [address] [place] [id number] May, [facility] [place] [address] [id number] [place] [id number] Apr, [facility] [place] [address] [id number] [place] [id number] March, [facility] [place] [address] [id number] [place] [id number] Feb, [facility] [place] [address] [id number] [place] [id number] Jan, [facility] [place] [address] [id number] [place] [id number] Nov, [facility] [address] [place] [place] [id number] [address] [place] [id number] Sep, [facility] [address] [facility] [id number] [address] [place] [id number] Sep, [facility] [address] [id number] [address] [place] [address] Aug, [facility] [address] [id number] [address] [place] [id number] Apr, [facility] [address] [id number] March, IMMUNIZATIONS No Known Immunizations SOCIAL HISTORY [...]
--- NOTE | 2020-03-30 07:11 | NUR ---
COVID-19 swab sent to lab at 0711.
--- OUTSIDE RECORDS SUMMARY | 2020-03-30 07:11 | XMS REPORT ---
Author Author Devi TATE Organization [address] Address [address] [place] [address] Care Team Providers Care Companion Name Role Phone TARIQ TATE Unavailable PROBLEMS Type Condition ICD9-CM Code KAI83-NS Code Onset Dates Condition S tatus SNOMED Code Problem Osteoarthritis of both knees, unspecified osteoarthritis t ype M17.0 Active 312770617 Problem Other depression F32.8 Active 354 67745 Problem Hip bursitis, left M70.72 Active 8 9231198 Problem Chronic obstructive pulmonary disease, unspecified COPD ty pe J44.9 Active 45444705 Problem Arthralgia of right temporomandibular joint M26.62 Active 40851384 Problem Psychophysiological insomnia F51.04 A ctive 713670728 Problem Hypothyroidism, unspecified type E03.9 Active 51248865 Problem Hypothyroidism, unspecified type E03.9 Active 35869314 Problem Chronic obstructive pulmonary disease with acute exacerbat ion J44.1 Active 782619442 Problem Moderate episode of recurrent major depressive disorder F33.1 Active 953724609 Problem Seasonal allergic rhinitis, unspecified trigger J3 0.2 Active 079230259 Problem Sciatic leg pain M54.30 Active 230 11075 Problem Mixed hyperlipidemia E78.2 Active 941538991 Problem Mixed hyperlipidemia E78.2 Active 153462811 Problem Other chronic pain G89.29 Active 8 9909253 Problem Chronic obstructive pulmonary disease with acute exacerbat ion J44.1 Active 318536199 ALLERGIES No Information ENCOUNTERS Encounter Location Date Diagnosis [address] [address] 2 3 Jan, [address] [address] 2 3 Jan, 2020 Chronic obstructive pulmonary disease, unspecified COPD type J44.[address] [address] 0 6 Jan, 2020 Moderate episode of recurrent major depressive disorder F33.[address] [address] 2 5 Dec, 2019 Seasonal allergic rhinitis, unspecified trigger J30.[address] [address] 1 8 Dec, 2019 Moderate episode of recurrent major depressive disorder F33.[address] [address] 1 7 Dec, 2019 Chronic obstructive pulmonary disease, unspecified COPD type J44.9 and Cough R05 [address] [address] 1 0 Dec, 2019 Chronic obstructive pulmonary disease with acute exacerbation J44.1 and Chronic obstructive pulmonary disease, unspecified COPD type J44.[address] [address] 0 3 Nov, [address] [address] 0 2 Nov, 2019 [facility] [place] Pending sale to [id number] [place] [id number] Oct, Community acquired pneumonia, unspecifie d laterality J18.[address] [id number] Oct, Community acquired pneumonia, unspecified laterality J18.9 and Chronic obstructive pulmonary disease with acute exacerbation J44.[address] [id number] Oct, [address] [id number] Oct, [address] [id number] Oct, Hip bursitis, left M70.72 ; Pain in right shoulder M25.511 ; Other chronic pain G89.29 and Moderate episode of recurrent major depressive disorder F33.[address] [id number] Sep, Encounter for immunization Z23 [address] [id number] Sep, [place] [id number] [place] [address] [id number] Sep, Chronic obstructive pulmonary disease, unspecified COPD type J44.9 [place] [id number] [place] [address] [id number] Sep, Moderate episode of recurrent major depressive disorder F33.[address] [id number] Aug, Acute pain of right shoulder M25.511 and Injury of right rotator cuff, subsequent encounter S46.001D [address] [id number] Aug, [address] [id number] Aug, Moderate episode of recurrent major depressive disorder F33.1 and Chronic obstructive pulmonary disease, unspecified COPD type J44.[address] [place] [id number] [employer] [place] [id number] Jul, Injury of right rotator cuff, subsequent encounter S46.001D ; Sciatic leg pain M54.30 and Acute pain of right shoulder M25.[address] [place] [id number] [place] [employer] [place] [id number] Jul, [address] [id number] Jul, Community acquired pneumonia of left lower lobe of lung J18.[address] [place] [place] [address] [id number] [place] [employer] , [place] [id number] Jul, [address] [id number] Jul, Injury of right rotator cuff, subsequent encounter S46.001D [facility] [address] [id number] [place] [employer] [place] [id number] Jul, [address] [id number] Jul, [address] [id number] Jul, Screening for thyroid disorder Z13.29 [facility] [place] [address] [id number] [facility] [place] [id number] Jun, Right shoulder pain, unspecified chronic ity M25.511 and Injury of right shoulder, initial encounter S49.91XA [place] [id number] [place] [address] [id number] Jun, Right shoulder pain, unspecified chronicity M25.511 and Injury of right shoulder, initial encounter S49.91XA [address] [id number] Jun, Moderate episode of recurrent major depressive disorder F33.1 ; Chronic obstructive pulmonary disease, unspecified COPD type J44.9 ; Mixed hyperlipidemia E78.2 and Hypothyroidism, unspecified type E03.9 [place] [id number] [place] [address] [id number] Jun, Chronic obstructive pulmonary disease, unspecified COPD type J44.[address] [id number] May, Contusion of right knee, initial encounter S80.01XA [address] [id number] May, Moderate episode of recurrent major depressive disorder F33.1 ; Chronic obstructive pulmonary disease, unspecified COPD type J44.9 and Sciatic leg pain M54.30 [place] [id number] [place] [address] [id number] May, [address] [id number] Apr, Urinary frequency R35.0 [facility] [place] [address] [facility] [address] [id number] [facility] [place] [id number] Apr, [place] [id number] [place] [address] [id number] March, Contusion of right knee, initial encounter S80.01XA and Chronic obstructive pulmonary disease, unspecified COPD type J44.9 [place] [id number] [place] [address] [id number] March, Moderate episode of recurrent major depressive disorder F33.1 and Urinary frequency R35.[address] [id number] Feb, [address] [id number] Feb, Chronic obstructive pulmonary disease, unspecified COPD type J44.[address] [id number] Feb, Dysuria R30.[address] [id number] Feb, Moderate episode of recurrent major depressive disorder F33.[address] [id number] Jan, Moderate episode of recurrent major depressive disorder F33.1 ; Chronic obstructive pulmonary disease, unspecified COPD type J44.9 ; Psychophysiological insomnia F51.04 ; Sciatic leg pain M54.30 and Contusion of right knee, initial encounter S80.01XA [address] [id number] Dec, Chronic obstructive pulmonary disease, unspecified COPD type J44.[address] [id number] Nov, Chronic obstructive pulmonary disease, unspecified COPD type J44.[address] [id number] Nov, Contusion of right knee, initial encounter S80.01XA [address] [id number] Nov, Osteoarthritis of both knees, unspecified osteoarthritis type M17.0 ; Sciatic leg pain M54.30 and Moderate episode of recurrent major depressive disorder F33.[address] [id number] Oct, Psychophysiological insomnia F51.[address] [id number] Sep, [facility] [address] [place] [address] [id number] [place] [address] Sep, [address] [place] [address] [id number] Sep, Psychophysiological insomnia F51.04 [facility] [address] [place] [id number] [place] [address] [id number] Aug, Breast cancer screening Z12.31 [facility] [address] [place] [id number] [place] [address] [id number] Aug, [facility] [address] [facility] [place] [address] Aug, [facility] [address] [id number] Jul, [facility] [address] [place] [id number] [place] [address] [id number] Jul, Chronic obstructive pulmonary disease, unspecified COPD type J44.9 ; Osteoarthritis of both knees, unspecified osteoarthritis type M17.0 ; Moderate episode of recurrent major depressive disorder F33.1 and Sciatic leg pain M54.30 [facility] [address] [place] [id number] [place] [address] [id number] Jun, Moderate episode of recurrent major depressive disorder F33.1 ; Sciatic leg pain M54.30 and Chronic obstructive pulmonary disease, unspecified COPD type J44.9 [facility] [address] [place] [id number] [place] [address] [id number] Jun, [address] [id number] May, Sciatic leg pain M54.30 [address] [address] May, Chronic obstructive pulmonary disease, unspecified COPD type J44.[address] [place] [id number] May, [facility] [address] [facility] [place] [address] [id number] Apr, Moderate episode of recurrent major depressive disorder F33.1 ; Sciatic leg pain M54.30 and Chronic obstructive pulmonary disease, unspecified COPD type J44.9 [facility] [address] [facility] [id number] March, [address] [id number] Feb, Sciatic leg pain M54.30 [facility] [address] [id number] [employer] [place] [id number] Feb, [address] [id number] Dec, Moderate episode of recurrent major depressive disorder F33.1 ; Sciatic leg pain M54.30 ; Chronic obstructive pulmonary disease, unspecified COPD type J44.9 and Screening for thyroid disorder Z13.[address] [id number] Dec, Chronic obstructive pulmonary disease, unspecified COPD type J44.[address] [id number] Nov, Sciatic leg pain M54.30 [facility] [address] [facility]000[facility] [id number] Oct, [address] [id number] Oct, Acute pain of right shoulder M25.[address] [id number] Oct, Chronic obstructive pulmonary disease, unspecified COPD type J44.[address] [id number] Oct, [address] [id number] Sep, Chronic obstructive pulmonary disease, unspecified COPD type J44.9 and Sciatic leg pain M54.[address] [id number] Aug, Moderate episode of recurrent major depressive disorder F33.1 and Chronic obstructive pulmonary disease, unspecified COPD type J44.9 [facility] [address] [id number] [employer] [place] [id number] Aug, Moderate episode of recurrent major depr essive disorder F33.[address] [id number] Jul, Other depression F32.8 and Chronic obstructive pulmonary disease, unspecified COPD type J44.9 [facility] [address] [id number] Jul, Moderate episode of recurrent major depressive disorder F33.1 [facility] [place] [address] [facility] [address] [id number] [place] [id number] Jun, [facility] [address] [id number] Jun, Moderate episode of recurrent major depressive disorder F33.[address] [id number] Jun, Moderate episode of recurrent major depressive disorder F33.[address] [id number] Jun, [address] [id number] Jun, Sciatic leg pain M54.[address] [id number] Jun, [address] [id number] May, Screening for thyroid disorder Z13.29 and Screening for lipid disorders Z13.[address] [id number] May, Other depression F32.[address] [id number] Apr, Sciatic leg pain M54.[address] [id number] Apr, Screening for lipid disorders Z13.220 ; Screening for thyroid disorder Z13.29 and Chronic obstructive pulmonary disease, unspecified COPD type J44.[address] [id number] Apr, Screening for lipid disorders Z13.220 ; Screening for thyroid disorder Z13.29 and Chronic obstructive pulmonary disease, unspecified COPD type J44.9 [facility] [address] [id number] Apr, [address] [id number] Apr, Chronic obstructive pulmonary disease, unspecified COPD type J44.9 [facility] [address] [place] [id number] [address] March, [address] [id number] March, Sciatic leg pain M54.30 and Other depression F32.[address] [id number] March, [address] [id number] Jan, Other depression F32.8 and Sciatic leg pain M54.[address] [id number] Jan, Sciatic leg pain M54.[address] [id number] Dec, Other depression F32.[address] [id number] Dec, Chronic obstructive pulmonary disease, unspecified COPD type J44.[address] [id number] Nov, [address] [id number] Oct, Other depression F32.8 and Chronic obstructive pulmonary disease, unspecified COPD type J44.[address] [id number] Aug, [address] [id number] Aug, Other depression F32.8 ; Arthralgia of right temporomandibular joint M26.62 and Encounter for immunization Z23 [address] [id number] Aug, Encounter for well woman exam Z01.[address] [id number] Jul, Other depression F32.8 and Arthralgia of right temporomandibular joint M26.[address] [id number] Jun, [facility] [place] [id number] [place] [address] Jun, [facility] [address] [id number] Jun, [facility] [address] [id number] Jun, Other depression F32.8 and Urinary tract infection without hematuria, site unspecified N39.0 [facility] [address] [id number] Apr, [facility] [address] [id number] Apr, Dysuria R30.0 [facility] [address] [facility] [place] [address] March, [facility] [address] [id number] March, Urinary tract infection, site unspecified N39.[address] [id number] March, Urinary tract infection, site unspecified N39.[address] [id number] Feb, [address] [id number] Feb, Headache R51 and Ear pain H92.[address] [id number] Jan, Osteoarthritis of both knees, unspecified osteoarthritis type M17.0 and Hip bursitis, left M70.[address] [id number] Jan, [address] [id number] Dec, Unspecified arthropathy, site unspecified 716.90 and COPD (chronic obstructive pulmonary disease) [address] [id number] Dec, [facility] [id number] Nov, [place] [address] [facility] [id number] Oct, [address] [id number] Sep, [facility] [address] [place] [id number] [place] [address] [id number] Sep, [facility] [address] [facility] [place] [address] [id number] Aug, [place] [address] [facility] [address] [id number] [facility] [id number] Aug, [facility] [address] [facility] [place] [address] [id number] Aug, Urinary tract infection N39.0 and Shoulder strain, right, initial encounter S46.911A [place] [address] [facility] [place] [address] [id number] Aug, Screening breast examination Z12.39 and Encounter for immunization Z23 [address] [id number] Aug, [facility] [address] [facility] [id number] [facility] [place] [id number] Aug, [address] [id number] Jul, [address] [id number] Jun, [address] [id number] Jun, Allergic rhinitis, cause unspecified 477.9 and Cough 786.[address] [id number] May, [address] [id number] May, [address] [id number] May, Visit for suture removal V58.[address] [id number] May, Dog bite 879.8 [place] [address] [id number] [address] Apr, Rib pain on right side 786.50 [facility] [address] [id number] Apr, [facility] [address] [id number] Apr, Allergic rhinitis, cause unspecified 477.9 and Cough 786.[address] [id number] March, [address] [id number] March, [address] [id number] March, [facility] [address] [id number] March, [place] [id number] [place] [address] [id number] March, Cough 786.2 and Shortness of breath 786.[address] [id number] March, [address] [id number] March, Cough 786.2 ; COPD (chronic obstructive pulmonary disease) 496 and Allergic rhinitis, cause unspecified 477.9 [place] [id number] [place] [address] [id number] Feb, Allergic rhinitis, cause unspecified 477.9 ; Cough 786.2 and COPD (chronic obstructive pulmonary disease) 496 [facility] [address] [place] [id number] [place] [address] Feb, [facility] [address] [address] Feb, [facility] [address] [address] Jan, [facility] [id number] [place] [address] Jan, [facility] [address] [place] [address] [place] [address] Jan, [facility] [address] [place] [id number] [id number] Jan, [facility] [address] [facility] [place] [address] Jan, [facility] [address] [place] [id number] [id number] Dec, [facility] [id number] [place] [address] Dec, [facility] [address] [place] [id number] [id number] Dec, [facility] [id number] [place] [address] Dec, [facility] [address] [place] [id number] [address] Dec, [facility] [id number] [place] [address] Dec, [facility] [address] [facility] [place] [address] Dec, [facility] [address] [place] [id number] [id number] Nov, [facility] [id number] [place] [address] Nov, [facility] [id number] [place] [address] Nov, [facility] [address] [place] [address] [id number] [id number] Nov, [facility] [id number] [place] [address] Nov, [facility] [address] [place] [id number] [id number] Oct, [facility] [id number] [place] [address] Oct, [facility] [address] [place] [id number] [address] Sep, [facility] [address] [facility] [place] [address] Sep, [facility] [address] [place] [address] [id number] [address] Sep, [facility] [address] [facility] [place] [address] Sep, [facility] [address] [place] [place] [address]757[place] [address] Aug, [facility] [address] [facility] [place] [address] Aug, [facility] [address] [place] [address] [id number] Aug, [facility] [id number] [place] [address] Aug, [facility] [id number] [place] [address] Jul, [facility] [address] [id number] [id number] Jul, [facility] [address] [place] [id number] 15[address] Jul, [facility] [address] [place] [id number] [address] Jul, [facility] [address] [facility] [place] [address] Jul, [facility] [address] [facility] [place] [address] Jul, [facility] [address] [facility] [place] [address] Jul, [facility] [address] [facility] [place] [address] Jul, [facility] [id number] [address] Jun, [facility] [address] [facility] [place] [address] Jun, [facility] [id number] [place] [address] Jun, [facility] [address] [facility]07757[facility] [id number] Jun, [facility] [address] [facility] [place] [address] Jun, [facility] [address] [place] [id number] [id number] Jun, [facility] [address] [facility] [place] [address] Jun, [facility] [address] [place] [id number] [id number] Apr, [facility] [id number] [place] [address] Apr, [facility] [address] [place] [id number] [address] Apr, [facility] [id number] [place] [address] Apr, [facility] [address] [place] [id number] [address] Apr, [facility] [id number] [place] [address] Apr, [facility] [id number] [place] [address] March, [facility] [id number] [place] [address] March, [facility] [address] [place] [id number] [id number] March, [facility] [address] [facility]757[facility] [address] Feb, [facility] [id number] [place] [address] Feb, [facility] [address] [facility]07757[facility] [id number] Jan, [facility] [address] [facility] [place] [address] Jan, [facility] [address] [facility]757G [place] [address] Dec, [facility] [address] [id number] [place] [address] Dec, [facility] [address] [facility]757[place] [address] Dec, [facility] [id number] [place] [address] Dec, [facility] [id number] [place] [address] Dec, [facility] [id number] [place] [address] Dec, [facility] [id number] 4[address]076 Nov, [facility] [id number] [place] [address] Nov, [facility] [id number] [address] Nov, [facility] [id number] [place] [address] Nov, [facility] [id number] [address] Nov, [facility] [id number] [place] [address] Nov, [facility] [id number] [address]88[address] Oct, [facility] [id number] [place] [address] Oct, [facility] [id number] [place] [address] Oct, [facility] [id number] [address] Oct, [facility] [id number] [place] [address] Sep, [facility] [id number] [place] [address] Sep, [facility] [address] [facility]757[facility] [address] Sep, [facility] [address] [facility] [place] [address] Sep, [facility] [address] [facility]07757[facility] [address] Aug, [facility] [id number] [place] [address] Aug, [facility] [address] [facility]07757[facility] [address] Jul, [facility] [address] [address] [id number] [id number] Jul, [facility] [address] [id number] [place] [id number] Jun, [facility] [address] [facility] [id number] May, [facility] [address] [id number] [place] [id number] May, [facility] [address] [id number] [place] [address] May, [facility] [address] [id number] [id number] Apr[facility] [address] [facility] [id number] Apr, [facility] [address] [id number] [id number] March, [facility] [address] [id number] [id number] Feb, [facility] [address] [facility] [place] [id number] Feb, [facility] [address] [id number] [id number] Jan[facility] [address] [id number] [place] [id number] Jan, [facility] [address] [id number] [place] [id number] Dec, [facility] [address] [id number] [facility] [id number] Nov, [facility] [address] [id number] [place] [address] Oct, [facility] [id number] [place] [address] Oct, [facility] [address] [id number] [id number] Oct, [facility] [id number] [place] [address] Oct, [facility] [address] [id number] [place] [address] Oct, [facility] [address] [id number] [id number] Oct, [facility] [address] [id number] [id number] Sep, [facility] [id number] [place] [address] Sep, [facility] [address] [id number] [id number] Sep, [facility] [address] [id number] [place] [address] Sep, [facility] [address] [id number] [id number] Aug, [facility] [address] [id number] [place] [address] Aug, [facility] [address] [id number] [id number] Aug, [facility] [address] [id number] [id number] Jun, [facility] [id number] [place] [address], [place] [id number] Jun, [facility] [address] [id number] [place] [address] May, [facility] [address] [id number] [id number] Apr, [facility] [address] [id number] [place] [id number] March, [facility] [address] [id number] [place] [id number] Feb, [facility] [address] [facility] [id number] Jan, [facility] [address] [id number] [place] [id number] Nov, [facility] [address] [address] Sep, [facility] [address] [address] Sep, [facility] [address] [address] Aug, [facility] [id number] [place] [address] Apr, [facility] [address] [address] March, IMMUNIZATIONS No Known Immunizations SOCIAL HISTORY [...]
--- OUTSIDE RECORDS SUMMARY | 2020-03-30 07:11 | XMS REPORT ---
Author Author Devi TATE Organization [address] Address [address] [place] [address] Care Team Providers Care Feed Weigher Name Role Phone TARIQ TATE Unavailable PROBLEMS Type Condition ICD9-CM Code WQR08-HV Code Onset Dates Condition S tatus SNOMED Code Problem Osteoarthritis of both knees, unspecified osteoarthritis t ype M17.0 Active 561173159 Problem Other depression F32.8 Active 354 00045 Problem Hip bursitis, left M70.72 Active 8 4633181 Problem Chronic obstructive pulmonary disease, unspecified COPD ty pe J44.9 Active 22114481 Problem Arthralgia of right temporomandibular joint M26.62 Active 51036445 Problem Psychophysiological insomnia F51.04 A ctive 121994321 Problem Hypothyroidism, unspecified type E03.9 Active 12702388 Problem Hypothyroidism, unspecified type E03.9 Active 38984808 Problem Chronic obstructive pulmonary disease with acute exacerbat ion J44.1 Active 305311373 Problem Moderate episode of recurrent major depressive disorder F33.1 Active 558586847 Problem Seasonal allergic rhinitis, unspecified trigger J3 0.2 Active 910093133 Problem Sciatic leg pain M54.30 Active 230 40549 Problem Mixed hyperlipidemia E78.2 Active 771032179 Problem Mixed hyperlipidemia E78.2 Active 464871157 Problem Other chronic pain G89.29 Active 8 0585656 Problem Chronic obstructive pulmonary disease with acute exacerbat ion J44.1 Active 113811753 ALLERGIES No Information ENCOUNTERS Encounter Location Date Diagnosis [place] [address] [id number] [place] [address] Jan, [place] [address] [id number] [place] [address] Jan, Chronic obstructive pulmonary disease, u nspecified COPD type J44.9 [place] [address] [id number] [place] [address] Jan, Moderate episode of recurrent major depr essive disorder F33.1 [facility] [address] [place] [address] [id number] [place] [address] 25 Dec, 2019 Seasonal allergic rhinitis, unspecified trigger J30.2 [facility] [address] [place] [address] [id number] [place] [address] Dec, Moderate episode of recurrent major depr essive disorder F33.1 [facility] [address] [place] [address] [id number] [place] [address] 17 Dec, 2019 Chronic obstructive pulmonary disease, u nspecified COPD type J44.9 and Cough R05 [facility] [address] [place] [address] [id number] [place] [address] 10 Dec, 2019 Chronic obstructive pulmonary disease wi th acute exacerbation J44.1 and Chronic obstructive pulmonary disease, unspecified COPD type J44.9 [facility] [address] [place] [address] [id number] [place] [address] Nov, [facility] [address] [place] [address] [id number] [place] [address] Nov, [facility] [address] [id number] [id number] Oct, Community acquired pneumonia, unspecifie d laterality J18.9 [facility] [place] [address] [id number] [place] [id number] Oct, Community acquired pneumonia, unspecifie d laterality J18.9 and Chronic obstructive pulmonary disease with acute exacerbation J44.1 [facility] [place] [address] [id number] [place] [id number] Oct, [facility] [place] [address] [id number] [place] [id number] Oct, [facility] [place] [address] [id number] [place] [id number] Oct, Hip bursitis, left M70.72 ; Pain in righ t shoulder M25.511 ; Other chronic pain G89.29 and Moderate episode of recurrent major depressive disorder F33.1 [facility] [place] [address] [id number] [place] [id number] Sep, Encounter for immunization Z23 [facility] [place] [address] [id number] [place] [id number] Sep, [facility] [place] [address] [id number] [place] [id number] Sep, Chronic obstructive pulmonary disease, u nspecified COPD type J44.9 [facility] [place] [address] [id number] [place] [id number] Sep, Moderate episode of recurrent major depr essive disorder F33.1 [facility] [place] [address] [id number] [place] [id number] Aug, Acute pain of right shoulder M25.511 and Injury of right rotator cuff, subsequent encounter S46.001D [facility] [place] [address] [id number] [place] [id number] Aug, [facility] [place] [address] [id number] [place] [id number] Aug, Moderate episode of recurrent major depr essive disorder F33.1 and Chronic obstructive pulmonary disease, unspecified COPD type J44.[address] [facility] [address] [id number] [place] [id number] Jul, Injury of right rotator cuff, subsequent encounter S46.001D ; Sciatic leg pain M54.30 and Acute pain of right shoulder M25.[address] [facility] [address] [id number] [place] [id number] Jul, [facility] [place] [address] [id number] [place] [id number] Jul, Community acquired pneumonia of left low er lobe of lung J18.1 [facility] [address] [id number] [place] [id number] Jul, [facility] [place] [address] [id number] [place] [id number] Jul, Injury of right rotator cuff, subsequent encounter S46.001D [facility] [address] [facility] [address] [id number] [id number] Jul, [facility] [place] [address] [id number] [place] [id number] Jul, [facility] [place] [address] [id number] [place] [id number] Jul, Screening for thyroid disorder Z13.29 [facility] [address] [address] [id number] [address] Jun, Right shoulder pain, unspecified chronic ity M25.511 and Injury of right shoulder, initial encounter S49.91XA [facility] [place] [address] [id number] [place] [id number] Jun, Right shoulder pain, unspecified chronic ity M25.511 and Injury of right shoulder, initial encounter S49.91XA [facility] [place] [address] [id number] [place] [id number] Jun, Moderate episode of recurrent major depr essive disorder F33.1 ; Chronic obstructive pulmonary disease, unspecified COPD type J44.9 ; Mixed hyperlipidemia E78.2 and Hypothyroidism, unspecified type E03.9 [facility] [place] [address] [id number] [place] [id number] Jun, Chronic obstructive pulmonary disease, u nspecified COPD type J44.9 [facility] [place] [address] [id number] [place] [id number] May, Contusion of right knee, initial encount er S80.01XA [facility] [place] [address] [id number] [place] [id number] May, Moderate episode of recurrent major depr essive disorder F33.1 ; Chronic obstructive pulmonary disease, unspecified COPD type J44.9 and Sciatic leg pain M54.30 [facility] [place] [address] [id number] [place] [id number] May, [facility] [place] [address] [id number] [place] [id number] Apr, Urinary frequency R35.0 [facility] [address] [facility] [address] [id number] [place] [id number] Apr, [facility] [place] [address] [id number] [place] [id number] March, Contusion of right knee, initial encount er S80.01XA and Chronic obstructive pulmonary disease, unspecified COPD type J44.9 [facility] [place] [address] [id number] [place] [id number] March, Moderate episode of recurrent major depr essive disorder F33.1 and Urinary frequency R35.0 [facility] [place] [address] [id number] [place] [id number] Feb, [facility] [place] [address] [id number] [place] [id number] Feb, Chronic obstructive pulmonary disease, u nspecified COPD type J44.9 [facility] [place] [address] [id number] [place] [id number] Feb, Dysuria R30.0 [facility] [place] [address] [id number] [place] [id number] Feb, Moderate episode of recurrent major depr essive disorder F33.1 [facility] [place] [address] [id number] [place] [id number] Jan, Moderate episode of recurrent major depr essive disorder F33.1 ; Chronic obstructive pulmonary disease, unspecified COPD type J44.9 ; Psychophysiological insomnia F51.04 ; Sciatic leg pain M54.30 and Contusion of right knee, initial encounter S80.01XA [facility] [place] [address] [id number] [place] [id number] Dec, Chronic obstructive pulmonary disease, u nspecified COPD type J44.9 [facility] [place] [address] [id number] [place] [id number] Nov, Chronic obstructive pulmonary disease, u nspecified COPD type J44.9 [facility] [place] [address] [id number] [place] [id number] Nov, Contusion of right knee, initial encount er S80.01XA [facility] [place] [address] [id number] [place] [id number] Nov, Osteoarthritis of both knees, unspecifie d osteoarthritis type M17.0 ; Sciatic leg pain M54.30 and Moderate episode of recurrent major depressive disorder F33.1 [facility] [place] [address] [id number] [place] [id number] Oct, Psychophysiological insomnia F51.04 [facility] [place] [address] [id number] [place] [id number] Sep, [facility] [place] [facility] [address] [id number] [place] [id number] Sep, [facility] [place] [address] [id number] [place] [id number] Sep, Psychophysiological insomnia F51.04 [facility] [place] [address] [id number] [place] [id number] Aug, Breast cancer screening Z12.31 [facility] [place] [address] [id number] [place] [id number] Aug, [facility] [address] [id number] [address] [address] Aug, [facility] [place] [address] [id number] [place] [id number] Jul, [facility] [place] [address] [id number] [place] [id number] Jul, Chronic obstructive pulmonary disease, u nspecified COPD type J44.9 ; Osteoarthritis of both knees, unspecified osteoarthritis type M17.0 ; Moderate episode of recurrent major depressive disorder F33.1 and Sciatic leg pain M54.30 [facility] [place] [address] [id number] [place] [id number] Jun, Moderate episode of recurrent major depr essive disorder F33.1 ; Sciatic leg pain M54.30 and Chronic obstructive pulmonary disease, unspecified COPD type J44.9 [facility] [place] [address] [id number] [place] [id number] Jun, [facility] [place] [address] [id number] [place] [id number] May, Sciatic leg pain M54.30 [facility] [place] [address] [id number] [place] [id number] May, Chronic obstructive pulmonary disease, u nspecified COPD type J44.[address] [facility] [address] [id number] [place] [id number] May, [facility] [place] [address] [id number] [place] [id number] Apr, Moderate episode of recurrent major depr essive disorder F33.1 ; Sciatic leg pain M54.30 and Chronic obstructive pulmonary disease, unspecified COPD type J44.9 [facility] [place] [address] [id number] [place] [id number] March, [facility] [place] [address] [id number] [place] [id number] Feb, Sciatic leg pain M54.[address] [facility] [address] [id number] [place] [id number] Feb, [facility] [place] [address] [id number] [place] [id number] Dec, Moderate episode of recurrent major depr essive disorder F33.1 ; Sciatic leg pain M54.30 ; Chronic obstructive pulmonary disease, unspecified COPD type J44.9 and Screening for thyroid disorder Z13.29 [facility] [place] [address] [id number] [place] [id number] Dec, Chronic obstructive pulmonary disease, u nspecified COPD type J44.9 [facility] [place] [address] [id number] [place] [id number] Nov, Sciatic leg pain M54.[address] [facility] [address] [id number] [place] [id number] Oct, [facility] [place] [address] [id number] [place] [id number] Oct, Acute pain of right shoulder M25.511 [facility] [place] [address] [id number] [place] [id number] Oct, Chronic obstructive pulmonary disease, u nspecified COPD type J44.9 [facility] [place] [address] [id number] [place] [id number] Oct, [facility] [place] [address] [id number] [place] [id number] Sep, Chronic obstructive pulmonary disease, u nspecified COPD type J44.9 and Sciatic leg pain M54.30 [facility] [place] [address] [id number] [place] [id number] Aug, Moderate episode of recurrent major depr essive disorder F33.1 and Chronic obstructive pulmonary disease, unspecified COPD type J44.9 [facility] [address] [id number] [place] [id number] Aug, Moderate episode of recurrent major depr essive disorder F33.1 [facility] [place] [address] [id number] [place] [id number] Jul, Other depression F32.8 and Chronic obstr uctive pulmonary disease, unspecified COPD type J44.9 [facility] [place] [address] [id number] [place] [id number] Jul, Moderate episode of recurrent major depr essive disorder F33.1 [facility] [address] [address] [id number] [place] [id number] Jun, [facility] [place] [address] [id number] [place] [id number] Jun, Moderate episode of recurrent major depr essive disorder F33.1 [facility] [place] [address] [id number] [place] [id number] Jun, Moderate episode of recurrent major depr essive disorder F33.1 [facility] [place] [address] [id number] [place] [id number] Jun, [facility] [place] [address] [id number] [place] [id number] Jun, Sciatic leg pain M54.30 [facility] [place] [address] [id number] [place] [id number] Jun, [facility] [place] [address] [id number] [place] [id number] May, Screening for thyroid disorder Z13.29 an d Screening for lipid disorders Z13.220 [facility] [place] [address] [id number] [place] [id number] May, Other depression F32.8 [facility] [place] [address] [id number] [place] [id number] Apr, Sciatic leg pain M54.30 [facility] [place] [address] [id number] [place] [id number] Apr, Screening for lipid disorders Z13.220 ; Screening for thyroid disorder Z13.29 and Chronic obstructive pulmonary disease, unspecified COPD type J44.9 [facility] [place] [address] [id number] [place] [id number] Apr, Screening for lipid disorders Z13.220 ; Screening for thyroid disorder Z13.29 and Chronic obstructive pulmonary disease, unspecified COPD type J44.9 [facility] [place] [address] [id number] [place] [id number] Apr, [facility] [place] [address] [id number] [place] [id number] Apr, Chronic obstructive pulmonary disease, u nspecified COPD type J44.9 [facility] [place] [address] [place], [place] [address] [id number] [place] [address] March, [facility] [place] [address] [id number] [place] [id number] March, Sciatic leg pain M54.30 and Other depres kobe F32.8 [facility] [place] [address] [id number] [place] [id number] March, [facility] [place] [address] [id number] [place] [id number] Jan, Other depression F32.8 and Sciatic leg p ain M54.30 [facility] [place] [address] [id number] [place] [id number] Jan, Sciatic leg pain M54.30 [facility] [place] [address] [id number] [place] [id number] Dec, Other depression F32.8 [facility] [place] [address] [id number] [place] [id number] Dec, Chronic obstructive pulmonary disease, u nspecified COPD type J44.9 [facility] [place] [address] [id number] [place] [id number] Nov, [facility] [place] [address] [id number] [place] [id number] Oct, Other depression F32.8 and Chronic obstr uctive pulmonary disease, unspecified COPD type J44.9 [facility] [place] [address] [id number] [place] [id number] Aug, [facility] [place] [address] [id number] [place] [id number] Aug, Other depression F32.8 ; Arthralgia of r ight temporomandibular joint M26.62 and Encounter for immunization Z23 [facility] [place] [address] [id number] [place] [id number] Aug, Encounter for well woman exam Z01.419 [facility] [place] [address] [id number] [place] [id number] Jul, Other depression F32.8 and Arthralgia of right temporomandibular joint M26.62 [facility] [place] [address] [id number] [place] [id number] Jun, [facility] [place] [facility] [id number] [place] [address] Jun, [facility] [place] [address] [id number] [place] [id number] Jun, [facility] [place] [address] [id number] [place] [id number] Jun, Other depression F32.8 and Urinary tract infection without hematuria, site unspecified N39.0 [facility] [place] [address] [id number] [place] [id number] Apr, [facility] [place] [address] [id number] [place] [id number] Apr, Dysuria R30.0 [facility] [address] [id number] [address] [place] [address] March, [facility] [place] [address] [id number] [place] [id number] March, Urinary tract infection, site unspecifie d N39.0 [facility] [place] [address] [id number] [place] [id number] March, Urinary tract infection, site unspecifie d N39.0 [facility] [place] [address] [id number] [place] [id number] Feb, [facility] [place] [address] [id number] [place] [id number] Feb, Headache R51 and Ear pain H92.09 [facility] [place] [address] [id number] [place] [id number] Jan, Osteoarthritis of both knees, unspecifie d osteoarthritis type M17.0 and Hip bursitis, left M70.72 [facility] [place] [address] [id number] [place] [id number] Jan, [facility] [place] [address] [id number] [place] [id number] Dec, Unspecified arthropathy, site unspecifie d 716.90 and COPD (chronic obstructive pulmonary disease) 496 [facility] [place] [address] [id number] [place] [id number] Dec, [facility] [place] [address] [id number] [place] [id number] Nov, [facility] [place] [address] [id number] [place] [id number] Oct, [facility] [place] [address] [id number] [place] [id number] Sep, [facility] [place] [address] [id number] [place] [id number] Sep, [facility] [place] [address] [id number] [place] [id number] Aug, [address] [id number] [id number] Aug, [facility] [place] [address] [id number] [place] [id number] Aug, Urinary tract infection N39.0 and Should er strain, right, initial encounter S46.911A [facility] [place] [address] [id number] [place] [id number] Aug, Screening breast examination Z12.39 and Encounter for immunization Z23 [facility] [place] [address] [id number] [place] [id number] Aug, [facility] [address] [facility] [id number] [place] [id number] Aug, [facility] [place] [address] [id number] [place] [id number] Jul, [facility] [place] [address] [id number] [place] [id number] Jun, [facility] [place] [address] [id number] [place] [id number] Jun, Allergic rhinitis, cause unspecified 477 .9 and Cough 786.2 [facility] [place] [address] [id number] [place] [id number] May, [facility] [place] [address] [id number] [place] [id number] May, [facility] [place] [address] [id number] [place] [id number] May, Visit for suture removal V58.32 [facility] [place] [address] [id number] [place] [id number] May, Dog bite 879.8 [facility] [place] [address] [id number] [place] [id number] Apr, Rib pain on right side 786.50 [facility] [place] [address] [id number] [place] [id number] Apr, [facility] [place] [address] [id number] [place] [id number] Apr, Allergic rhinitis, cause unspecified 477 .9 and Cough 786.2 [facility] [place] [address] [id number] [place] [id number] March, [facility] [place] [address] [id number] [place] [id number] March, [facility] [place] [address] [id number] [place] [id number] March, [facility] [place] [address] [id number] [place] [id number] March, [facility] [place] [address] [id number] [place] [id number] March, Cough 786.2 and Shortness of breath 786. 05 [facility] [place] [address] [id number] [place] [id number] March, [facility] [place] [address] [id number] [place] [id number] March, Cough 786.2 ; COPD (chronic obstructive pulmonary disease) 496 and Allergic rhinitis, cause unspecified 477.9 [facility] [place] [address] [id number] [place] [id number] Feb, Allergic rhinitis, cause unspecified 477 .9 ; Cough 786.2 and COPD (chronic obstructive pulmonary disease) 496 [facility] [address] [address] Feb, [facility] [address] [place] [id number] [address] [place] [address] Feb, [facility] [address] [place] [id number] [address] [place] [address] Jan, [facility] [address] [facility] [id number] [address] [place] [address] Jan, [facility] [address] [place] [id number] [address] [place] [address] Jan, [facility] [place] [address] [facility] [id number] [place] [id number] Jan, [facility] [address] [place] [address] [id number] [address] [place] [address] Jan, [facility] [place] [address] [id number] [place] [id number] Dec, [facility] [address] [id number] [facility] [place] [address] Dec, [facility] [place] [address] [id number] [place] [id number] Dec, [facility] [address] [id number] [facility] [address] Dec, [facility] [place] [address] [id number] [place] [id number] Dec, [facility] [address] [id number] [address] [place] [address], [place] [address] Dec, [facility] [address] [facility] [id number] [address] [place] [address], [place] [address] Dec, [facility] [place] [address] [id number] [place] [id number] Nov, [facility] [address] [id number] [address] [place] [address], [place] [address] Nov, [facility] [address] [facility] [id number] [address] [place] [address], [place] [id number] Nov, [facility] [place] [address] [facility] [id number] [place] [id number] Nov, [facility] [address] [facility] [id number] [address] [place] [address], [place] [id number] Nov, [facility] [place] [address] [id number] [place] [id number] Oct, [facility] [address] [id number] [address] [place] [address], [place] [id number] Oct, [facility] [place] [address] [id number] [place] [id number] Sep, [facility] [address] [facility] [id number] [facility] [place] [address] Sep, [facility] [place] [address] [id number] [place] [id number] Sep, [facility] [address] [id number] [address] [place] [address], [place] [id number] Sep, [facility] [place] [address] [id number] [place] [id number] Aug, [facility] [address] [id number] [address] [place] [address], [place] [id number] Aug, [facility] [place] [address] [id number] [place] [id number] Aug, [facility] [address] [address] [id number] [address] [place] [address], [place] [address] Aug, [facility] [address] [id number] [address] [place] [address], [place] [address] Jul, [facility] [place] [address] [id number] [place] [id number] Jul, [facility] [place] [address] [id number] [place] [id number] Jul, [facility] [place] [address] [id number] [place] [id number] Jul, [facility] [address] [id number] [address] [place] [address], [place] [address] Jul, [facility] [address] [id number] [address] [place] [address], [place] [address] Jul, [facility] [address] [id number] [address] [place] [address], [place] [address] Jul, [facility] [address] [id number] [address] [place] [address], [place] [address] Jul, [facility] [place] [address] [id number] [place] [id number] Jun, [facility] [address] [id number] [address] [place] [address], [place] [address] Jun, [facility] [address] [id number] [address] [place] [address], [place] [address] Jun, [facility] [place] [address] [id number] [place] [id number] Jun, [facility] [address] [id number] [facility] [place] [address] Jun, [facility] [place] [address] [id number] [place] [id number] Jun, [facility] [address] [id number] [address] [place] [address], [place] [address] Jun, [facility] [place] [address] [id number] [place] [id number] Apr, [facility] [address] [id number] [address] [place] [address], [place] [address] Apr, [facility] [place] [address] [id number] [place] [id number] Apr, [facility] [address] [id number] [address] [place] [address], [place] [address] Apr, [facility] [place] [address] [id number] [place] [id number] Apr, [facility] [address] [id number] [address] [place] [address], [place] [address] Apr, [facility] [address] [id number] [address] [place] [address], [place] [address] March, [facility] [address] [id number] [address] [place] [address], [place] [address] March, [facility] [place] [address] [id number] [place] [id number] March, [facility] [place] [address] [id number] [place] [id number] Feb, [facility] [address] [id number] [address] [place] [address], [place] [address] Feb, [facility] [place] [address] [id number] [place] [id number] Jan, [facility] [address] [id number] [address] [place] [id number] Jan, [facility] [place] [address] [id number] [place] [id number] Dec, [facility] [address] [facility] [id number] [address] [place] [id number] Dec, [facility] [place] [address] [facility] [id number] [place] [id number] Dec, [facility] [address] [facility] [id number] [address] [place] [address] Dec, [facility] [address] [facility] [id number] [address] [place] [address] Dec, [facility] [address] [facility] [id number] [address] [place] [address] Dec, [facility] [place] [address] [facility] [id number] [place] [id number] Nov, [facility] [address] [facility] [id number] [address] [place] [address] Nov, [facility] [place] [address] [facility] [id number] [place] [id number] Nov, [facility] [address] [facility] [id number] [address] [place] [address] Nov, [facility] [place] [address] [id number] [place] [id number] Nov, [facility] [address] [facility] [id number] [address] [place] [id number] Nov, [facility] [place] [address] [id number] [place] [id number] Oct, [facility] [address] [facility] [id number] [address] [place] [id number] Oct, [facility] [address] [facility] [id number] [address] [place] [address] Oct, [facility] [place] [address] [facility] [id number] [place] [id number] Oct, [facility] [address] [facility] [id number] [address] [place] [id number] Sep, [facility] [address] [facility] [id number] [address] [place] [id number] Sep, [facility] [place] [address] [id number] [place] [id number] Sep, [facility] [address] [facility] [id number] [address] [place] [address] Sep, [facility] [place] [address] [id number] [place] [id number] Aug, [facility] [address] [facility] [id number] [address] [place] [id number] Aug, [facility] [place] [address] [id number] [place] [id number] Jul, [facility] [place] [address] [id number] [place] [id number] Jul, [facility] [place] [address] [id number] [place] [id number] Jun, [facility] [place] [address] [id number] [place] [id number] May, [facility] [place] [address] [id number] [place] [id number] May, [facility] [address] [facility] [id number] [address] [place] [id number] May, [facility] [place] [address] [id number] [place] [id number] Apr, [facility] [place] [address] [id number] [place] [id number] Apr, [facility] [place] [address] [id number] [place] [id number] March, [facility] [place] [address] [id number] [place] [id number] Feb, [facility] [place] [address] [id number] [place] [id number] Feb, [facility] [place] [address] [id number] [place] [id number] Jan, [facility] [place] [address] [id number] [place] [id number] Jan, [facility] [place] [address] [id number] [place] [id number] Dec, [facility] [place] [address] [id number] [place] [id number] Nov, [facility] [address] [id number] [address] [place] [address], [place] [address] Oct, [facility] [address] [id number] [address] [place] [address], [place] [address] Oct, [facility] [place] [address] [id number] [place] [id number] Oct, [facility] [address] [facility] [id number] [address] [place] [address], [place] [address] Oct, [facility] [address] [facility] [id number] [address] [place] [id number] Oct, [facility] [place] [address] [id number] [place] [id number] Oct, [facility] [place] [address] [id number] [place] [id number] Sep, [facility] [address] [facility] [id number] [address] [place] [address], [place] [address] Sep, [facility] [place] [address] [id number] [place] [id number] Sep, [facility] [address] [id number] [address] [place] [address], [place] [address] Sep, [facility] [place] [address] [id number] [place] [id number] Aug, [facility] [address] [facility] [id number] [address] [place] [address], [place] [address] Aug, [facility] [place] [address] [id number] [place] [id number] Aug, [facility] [place] [address] [id number] [place] [id number] Jun, [facility] [place] [address] [id number] [place] [id number] Jun, [facility] [address] [facility] [id number] [address] [place] [id number] May, [facility] [place] [address] [id number] [place] [id number] Apr, [facility] [place] [address] [id number] [place] [id number] March, [facility] [place] [address] [id number] [place] [id number] Feb, [facility] [place] [address] [id number] [place] [id number] Jan, [facility] [place] [address] [id number] [place] [id number] Nov, [facility] [address] [id number] [address] [place] [address] Sep, [facility] [address] [id number] [address] [place] [address] Sep, [facility] [address] [id number] [address] [place] [address] Aug, [facility] [address] [id number] [address] [place] [id number] Apr, [facility] [address] [id number] [address] [place] [phone] March, IMMUNIZATIONS No Known Immunizations SOCIAL HISTORY Never Assessed REASON FOR VISIT PLAN OF CARE VITAL SIGNS Height 62.5 in 2013-03-13 Weight 170.06 lbs 2013-03-13 Temperature 97.9 degrees Fahrenheit 2013-03-13 Heart Rate 80 bpm 2013-03-13 Respiratory Rate 16 2013-03-13 Blood pressure systolic 110 mmHg 2013-03-13 Blood pressure diastolic 76 mmHg 2013-03-13 MEDICATIONS Unknown Medications RESULTS No Results PROCEDURES [...]
--- OUTSIDE RECORDS SUMMARY | 2020-03-30 07:11 | XMS REPORT ---
Author Author Devi TATE Organization [address] Address [address] [place] [address] Care Team Providers Care Property Custodian Name Role Phone TARIQ TATE Unavailable PROBLEMS Type Condition ICD9-CM Code HIO09-NJ Code Onset Dates Condition S tatus SNOMED Code Problem Osteoarthritis of both knees, unspecified osteoarthritis t ype M17.0 Active 090617429 Problem Other depression F32.8 Active 354 53257 Problem Hip bursitis, left M70.72 Active 8 5326368 Problem Chronic obstructive pulmonary disease, unspecified COPD ty pe J44.9 Active 73912626 Problem Arthralgia of right temporomandibular joint M26.62 Active 69130774 Problem Psychophysiological insomnia F51.04 A ctive 336438854 Problem Hypothyroidism, unspecified type E03.9 Active 47403897 Problem Hypothyroidism, unspecified type E03.9 Active 59053454 Problem Chronic obstructive pulmonary disease with acute exacerbat ion J44.1 Active 056035354 Problem Moderate episode of recurrent major depressive disorder F33.1 Active 705828260 Problem Seasonal allergic rhinitis, unspecified trigger J3 0.2 Active 689686682 Problem Sciatic leg pain M54.30 Active 230 51813 Problem Mixed hyperlipidemia E78.2 Active 986264755 Problem Mixed hyperlipidemia E78.2 Active 401740134 Problem Other chronic pain G89.29 Active 8 8341666 Problem Chronic obstructive pulmonary disease with acute exacerbat ion J44.1 Active 079148061 ALLERGIES No Information ENCOUNTERS Encounter Location Date Diagnosis [place] [address] [id number] [place] [address] Jan, [place] [address] [id number] [place] [address] Jan, Chronic obstructive pulmonary disease, u nspecified COPD type J44.9 [place] [address] [id number] [place] [address] Jan, Moderate episode of recurrent major depr essive disorder F33.1 [facility] [address] [place] [address] [id number] [place] [address] 25 Dec, 2019 Seasonal allergic rhinitis, unspecified trigger J30.2 [facility] [address] [place] [address] [id number] [place] [address] Dec, Moderate episode of recurrent major depr essive disorder F33.1 [facility] [address] [place] [address] [id number] [place] [address] 17 Dec, 2019 Chronic obstructive pulmonary disease, u nspecified COPD type J44.9 and Cough R05 [facility] [address] [place] [address] [id number] [place] [address] 10 Dec, 2019 Chronic obstructive pulmonary disease wi th acute exacerbation J44.1 and Chronic obstructive pulmonary disease, unspecified COPD type J44.9 [facility] [address] [place] [address] [id number] [place] [address] Nov, [facility] [address] [place] [address] [id number] [place] [address] Nov, [facility] [address] [id number] [id number] Oct, Community acquired pneumonia, unspecifie d laterality J18.9 [facility] [place] [address] [id number] [place] [id number] Oct, Community acquired pneumonia, unspecifie d laterality J18.9 and Chronic obstructive pulmonary disease with acute exacerbation J44.1 [facility] [place] [address] [id number] [place] [id number] Oct, [facility] [place] [address] [id number] [place] [id number] Oct, [facility] [place] [address] [id number] [place] [id number] Oct, Hip bursitis, left M70.72 ; Pain in righ t shoulder M25.511 ; Other chronic pain G89.29 and Moderate episode of recurrent major depressive disorder F33.1 [facility] [place] [address] [id number] [place] [id number] Sep, Encounter for immunization Z23 [facility] [place] [address] [id number] [place] [id number] Sep, [facility] [place] [address] [id number] [place] [id number] Sep, Chronic obstructive pulmonary disease, u nspecified COPD type J44.9 [facility] [place] [address] [id number] [place] [id number] Sep, Moderate episode of recurrent major depr essive disorder F33.1 [facility] [place] [address] [id number] [place] [id number] Aug, Acute pain of right shoulder M25.511 and Injury of right rotator cuff, subsequent encounter S46.001D [facility] [place] [address] [id number] [place] [id number] Aug, [facility] [place] [address] [id number] [place] [id number] Aug, Moderate episode of recurrent major depr essive disorder F33.1 and Chronic obstructive pulmonary disease, unspecified COPD type J44.9 [facility] [address] [id number] [place] [id number] Jul, Injury of right rotator cuff, subsequent encounter S46.001D ; Sciatic leg pain M54.30 and Acute pain of right shoulder M25.511 [facility] [address] [id number] [place] [id number] Jul, [facility] [place] [address] [id number] [place] [id number] Jul, Community acquired pneumonia of left low er lobe of lung J18.1 [facility] [address] [id number] [place] [id number] Jul, [facility] [place] [address] [id number] [place] [id number] Jul, Injury of right rotator cuff, subsequent encounter S46.001D [facility] [address] [facility] [address] [id number][place] [id number] Jul, [facility] [place] [address] [id number] [place] [id number] Jul, [facility] [place] [address] [id number] [place] [id number] Jul, Screening for thyroid disorder Z13.29 [facility] [address] [id number][place] [address] Jun, Right shoulder pain, unspecified chronic ity M25.511 and Injury of right shoulder, initial encounter S49.91XA [facility] [place] [address] [id number] [place] [id number] Jun, Right shoulder pain, unspecified chronic ity M25.511 and Injury of right shoulder, initial encounter S49.91XA [facility] [place] [address] [id number] [place] [id number] Jun, Moderate episode of recurrent major depr essive disorder F33.1 ; Chronic obstructive pulmonary disease, unspecified COPD type J44.9 ; Mixed hyperlipidemia E78.2 and Hypothyroidism, unspecified type E03.9 [facility] [place] [address] [id number] [place] [id number] Jun, Chronic obstructive pulmonary disease, u nspecified COPD type J44.9 [facility] [place] [address] [id number] [place] [id number] May, Contusion of right knee, initial encount er S80.01XA [facility] [place] [address] [id number] [place] [id number] May, Moderate episode of recurrent major depr essive disorder F33.1 ; Chronic obstructive pulmonary disease, unspecified COPD type J44.9 and Sciatic leg pain M54.30 [facility] [place] [address] [id number] [place] [id number] May, [facility] [place] [address] [id number] [place] [id number] Apr, Urinary frequency R35.0 [facility] [address] [facility] [address] [id number] [place] [id number] Apr, [facility] [place] [address] [id number] [place] [id number] March, Contusion of right knee, initial encount er S80.01XA and Chronic obstructive pulmonary disease, unspecified COPD type J44.9 [facility] [place] [address] [id number] [place] [id number] March, Moderate episode of recurrent major depr essive disorder F33.1 and Urinary frequency R35.0 [facility] [place] [address] [id number] [place] [id number] Feb, [facility] [place] [address] [id number] [place] [id number] Feb, Chronic obstructive pulmonary disease, u nspecified COPD type J44.9 [facility] [place] [address] [id number] [place] [id number] Feb, Dysuria R30.0 [facility] [place] [address] [id number] [place] [id number] Feb, Moderate episode of recurrent major depr essive disorder F33.1 [facility] [place] [address] [id number] [place] [id number] Jan, Moderate episode of recurrent major depr essive disorder F33.1 ; Chronic obstructive pulmonary disease, unspecified COPD type J44.9 ; Psychophysiological insomnia F51.04 ; Sciatic leg pain M54.30 and Contusion of right knee, initial encounter S80.01XA [facility] [place] [address] [id number] [place] [id number] Dec, Chronic obstructive pulmonary disease, u nspecified COPD type J44.9 [facility] [place] [address] [id number] [place] [id number] Nov, Chronic obstructive pulmonary disease, u nspecified COPD type J44.9 [facility] [place] [address] [id number] [place] [id number] Nov, Contusion of right knee, initial encount er S80.01XA [facility] [place] [address] [id number] [place] [id number] Nov, Osteoarthritis of both knees, unspecifie d osteoarthritis type M17.0 ; Sciatic leg pain M54.30 and Moderate episode of recurrent major depressive disorder F33.1 [facility] [place] [address] [id number] [place] [id number] Oct, Psychophysiological insomnia F51.04 [facility] [place] [address] [id number] [place] [id number] Sep, [facility] [place] [facility] [address] [id number] [place] [id number] Sep, [facility] [place] [address] [id number] [place] [id number] Sep, Psychophysiological insomnia F51.04 [facility] [place] [address] [id number] [place] [id number] Aug, Breast cancer screening Z12.31 [facility] [place] [address] [id number] [place] [id number] Aug, [facility] [address] [id number] 100[address] [place] [address] Aug, [facility] [place] [address] [id number] [place] [id number] Jul, [facility] [place] [address] [id number] [place] [id number] Jul, Chronic obstructive pulmonary disease, u nspecified COPD type J44.9 ; Osteoarthritis of both knees, unspecified osteoarthritis type M17.0 ; Moderate episode of recurrent major depressive disorder F33.1 and Sciatic leg pain M54.30 [facility] [place] [address] [id number] [place] [id number] Jun, Moderate episode of recurrent major depr essive disorder F33.1 ; Sciatic leg pain M54.30 and Chronic obstructive pulmonary disease, unspecified COPD type J44.9 [facility] [place] [address] [id number] [place] [id number] Jun, [facility] [place] [address] [id number] [place] [id number] May, Sciatic leg pain M54.30 [facility] [place] [address] [id number] [place] [id number] May, Chronic obstructive pulmonary disease, u nspecified COPD type J44.[address] [facility] [address] [id number] [place] [id number] May, [facility] [place] [address] [id number] [place] [id number] Apr, Moderate episode of recurrent major depr essive disorder F33.1 ; Sciatic leg pain M54.30 and Chronic obstructive pulmonary disease, unspecified COPD type J44.9 [facility] [place] [address] [id number] [place] [id number] March, [facility] [place] [address] [id number] [place] [id number] Feb, Sciatic leg pain M54.[address] [facility] [address] [id number] [place] [id number] Feb, [facility] [place] [address] [id number] [place] [id number] Dec, Moderate episode of recurrent major depr essive disorder F33.1 ; Sciatic leg pain M54.30 ; Chronic obstructive pulmonary disease, unspecified COPD type J44.9 and Screening for thyroid disorder Z13.29 [facility] [place] [address] [id number] [place] [id number] Dec, Chronic obstructive pulmonary disease, u nspecified COPD type J44.9 [facility] [place] [address] [id number] [place] [id number] Nov, Sciatic leg pain M54.[address] [facility] [address] [id number] [place] [id number] Oct, [facility] [place] [address] [id number] [place] [id number] Oct, Acute pain of right shoulder M25.511 [facility] [place] [address] [id number] [place] [id number] Oct, Chronic obstructive pulmonary disease, u nspecified COPD type J44.9 [facility] [place] [address] [id number] [place] [id number] Oct, [facility] [place] [address] [id number] [place] [id number] Sep, Chronic obstructive pulmonary disease, u nspecified COPD type J44.9 and Sciatic leg pain M54.30 [facility] [place] [address] [id number] [place] [id number] Aug, Moderate episode of recurrent major depr essive disorder F33.1 and Chronic obstructive pulmonary disease, unspecified COPD type J44.9 [facility] [address] [id number] [place] [id number] Aug, Moderate episode of recurrent major depr essive disorder F33.1 [facility] [place] [address] [id number] [place] [id number] Jul, Other depression F32.8 and Chronic obstr uctive pulmonary disease, unspecified COPD type J44.9 [facility] [place] [address] [id number] [place] [id number] Jul, Moderate episode of recurrent major depr essive disorder F33.1 [facility] [address] [id number] [place] [id number] Jun, [facility] [place] [address] [id number] [place] [id number] Jun, Moderate episode of recurrent major depr essive disorder F33.1 [facility] [place] [address] [id number] [place] [id number] Jun, Moderate episode of recurrent major depr essive disorder F33.1 [facility] [place] [address] [id number] [place] [id number] Jun, [facility] [place] [address] [id number] [place] [id number] Jun, Sciatic leg pain M54.30 [facility] [place] [address] [id number] [place] [id number] Jun, [facility] [place] [address] [id number] [place] [id number] May, Screening for thyroid disorder Z13.29 an d Screening for lipid disorders Z13.220 [facility] [place] [address] [id number] [place] [id number] May, Other depression F32.8 [facility] [place] [address] [id number] [place] [id number] Apr, Sciatic leg pain M54.30 [facility] [place] [address] [id number] [place] [id number] Apr, Screening for lipid disorders Z13.220 ; Screening for thyroid disorder Z13.29 and Chronic obstructive pulmonary disease, unspecified COPD type J44.9 [facility] [place] [address] [id number] [place] [id number] Apr, Screening for lipid disorders Z13.220 ; Screening for thyroid disorder Z13.29 and Chronic obstructive pulmonary disease, unspecified COPD type J44.9 [facility] [place] [address] [id number] [place] [id number] Apr, [facility] [place] [address] [id number] [place] [id number] Apr, Chronic obstructive pulmonary disease, u nspecified COPD type J44.9 [facility] [place] [address] [place], [place] [address] [id number] [place] [address] March, [facility] [place] [address] [id number] [place] [id number] March, Sciatic leg pain M54.30 and Other depres kobe F32.8 [facility] [place] [address] [id number] [place] [id number] March, [facility] [place] [address] [id number] [place] [id number] Jan, Other depression F32.8 and Sciatic leg p ain M54.30 [facility] [place] [address] [id number] [place] [id number] Jan, Sciatic leg pain M54.30 [facility] [place] [address] [id number] [place] [id number] Dec, Other depression F32.8 [facility] [place] [address] [id number] [place] [id number] Dec, Chronic obstructive pulmonary disease, u nspecified COPD type J44.9 [facility] [place] [address] [id number] [place] [id number] Nov, [facility] [place] [address] [id number] [place] [id number] Oct, Other depression F32.8 and Chronic obstr uctive pulmonary disease, unspecified COPD type J44.9 [facility] [place] [address] [id number] [place] [id number] Aug, [facility] [place] [address] [id number] [place] [id number] Aug, Other depression F32.8 ; Arthralgia of r ight temporomandibular joint M26.62 and Encounter for immunization Z23 [facility] [place] [address] [id number] [place] [id number] Aug, Encounter for well woman exam Z01.419 [facility] [place] [address] [id number] [place] [id number] Jul, Other depression F32.8 and Arthralgia of right temporomandibular joint M26.62 [facility] [place] [address] [id number] [place] [id number] Jun, [facility] [place] [facility] [id number] [place] [address] Jun, [facility] [place] [address] [id number] [place] [id number] Jun, [facility] [place] [address] [id number] [place] [id number] Jun, Other depression F32.8 and Urinary tract infection without hematuria, site unspecified N39.0 [facility] [place] [address] [id number] [place] [id number] Apr, [facility] [place] [address] [id number] [place] [id number] Apr, Dysuria R30.0 [facility] [address] [id number] [address] [place] [address] March, [facility] [place] [address] [id number] [place] [id number] March, Urinary tract infection, site unspecifie d N39.0 [facility] [place] [address] [id number] [place] [id number] March, Urinary tract infection, site unspecifie d N39.0 [facility] [place] [address] [id number] [place] [id number] Feb, [facility] [place] [address] [id number] [place] [id number] Feb, Headache R51 and Ear pain H92.09 [facility] [place] [address] [id number] [place] [id number] Jan, Osteoarthritis of both knees, unspecifie d osteoarthritis type M17.0 and Hip bursitis, left M70.72 [facility] [place] [address] [id number] [place] [id number] Jan, [facility] [place] [address] [id number] [place] [id number] Dec, Unspecified arthropathy, site unspecifie d 716.90 and COPD (chronic obstructive pulmonary disease) 496 [facility] [place] [address] [id number] [place] [id number] Dec, [facility] [place] [address] [id number] [place] [id number] Nov, [facility] [place] [address] [id number] [place] [id number] Oct, [facility] [place] [address] [id number] [place] [id number] Sep, [facility] [place] [address] [id number] [place] [id number] Sep, [facility] [place] [address] [id number] [place] [id number] Aug, [address] [id number] [id number] Aug, [facility] [place] [address] [id number] [place] [id number] Aug, Urinary tract infection N39.0 and Should er strain, right, initial encounter S46.911A [facility] [place] [address] [id number] [place] [id number] Aug, Screening breast examination Z12.39 and Encounter for immunization Z23 [facility] [place] [address] [id number] [place] [id number] Aug, [facility] [address] [facility] [id number] [place] [id number] Aug, [facility] [place] [address] [id number] [place] [id number] Jul, [facility] [place] [address] [id number] [place] [id number] Jun, [facility] [place] [address] [id number] [place] [id number] Jun, Allergic rhinitis, cause unspecified 477 .9 and Cough 786.2 [facility] [place] [address] [id number] [place] [id number] May, [facility] [place] [address] [id number] [place] [id number] May, [facility] [place] [address] [id number] [place] [id number] May, Visit for suture removal V58.32 [facility] [place] [address] [id number] [place] [id number] May, Dog bite 879.8 [facility] [place] [address] [id number] [place] [id number] Apr, Rib pain on right side 786.50 [facility] [place] [address] [id number] [place] [id number] Apr, [facility] [place] [address] [id number] [place] [id number] Apr, Allergic rhinitis, cause unspecified 477 .9 and Cough 786.2 [facility] [place] [address] [id number] [place] [id number] March, [facility] [place] [address] [id number] [place] [id number] March, [facility] [place] [address] [id number] [place] [id number] March, [facility] [place] [address] [id number] [place] [id number] March, [facility] [place] [address] [id number] [place] [id number] March, Cough 786.2 and Shortness of breath 786. 05 [facility] [place] [address] [id number] [place] [id number] March, [facility] [place] [address] [id number] [place] [id number] March, Cough 786.2 ; COPD (chronic obstructive pulmonary disease) 496 and Allergic rhinitis, cause unspecified 477.9 [facility] [place] [address] [id number] [place] [id number] Feb, Allergic rhinitis, cause unspecified 477 .9 ; Cough 786.2 and COPD (chronic obstructive pulmonary disease) 496 [facility] [address] [address] Feb, [facility] [address] [place] [id number] [address] [place] [address] Feb, [facility] [address] [place] [id number] [address] [place] [address] Jan, [facility] [address] [facility] [id number] [address] [place] [address] Jan, [facility] [address] [place] [id number] [address] [place] [address] Jan, [facility] [place] [address] [facility] [id number] [place] [id number] Jan, [facility] [address] [place] [id number] [address] [place] [address] Jan, [facility] [place] [address] [id number] [place] [id number] Dec, [facility] [address] [id number] [facility] [place] [address] Dec, [facility] [place] [address] [id number] [place] [id number] Dec, [facility] [address] [id number] [facility] [place] [address] Dec, [facility] [place] [address] [id number] [place] [id number] Dec, [facility] [address] [id number] [address] [place] [address], [place] [address] Dec, [facility] [address] [facility] [id number] [address] [place] [address], [place] [address] Dec, [facility] [place] [address] [id number] [place] [id number] Nov, [facility] [address] [id number] [address] [place] [address], [place] [address] Nov, [facility] [address] [facility] [id number] [address] [place] [address], [place] [address] Nov, [facility] [place] [address] [facility] [id number] [place] [id number] Nov, [facility] [address] [facility] [place] [id number] [address] [place] [address], [place] [address] Nov, [facility] [place] [address] [id number] [place] [id number] Oct, [facility] [address] [id number] [address] [place] [address], [place] [address] Oct, [facility] [place] [address] [id number] [place] [id number] Sep, [facility] [address] [facility] [id number] [facility] [place] [address] Sep, [facility] [place] [address] [id number] [place] [id number] Sep, [facility] [address] [id number] [address] [place] [address], [place] [address] Sep, [facility] [place] [address] [id number] [place] [id number] Aug, [facility] [address] [id number] [address] [place] [address], [place] [address] Aug, [facility] [place] [address] [id number] [place] [id number] Aug, [facility] [address] [id number] [address] [place] [address], [place] [address] Aug, [facility] [address] [id number] [address] [place] [address], [place] [address] Jul, [facility] [place] [address] [id number] [place] [id number] Jul, [facility] [place] [address] [id number] [place] [id number] Jul, [facility] [place] [address] [id number] [place] [id number] Jul, [facility] [address] [id number] [address] [place] [address], [place] [address] Jul, [facility] [address] [id number] [address] [place] [address], [place] [address] Jul, [facility] [address] [id number] [address] [place] [address], [place] [address] Jul, [facility] [address] [id number] [address] [place] [address], [place] [address] Jul, [facility] [place] [address] [id number] [place] [id number] Jun, [facility] [address] [id number] [address] [place] [address], [place] [address] Jun, [facility] [address] [id number] [address] [place] [address], [place] [address] Jun, [facility] [place] [address] [id number] [place] [id number] Jun, [facility] [address] [id number] [facility] [place] [address] Jun, [facility] [place] [address] [id number] [place] [id number] Jun, [facility] [address] [id number] [address] [place] [address], [place] [address] Jun, [facility] [place] [address] [id number] [place] [id number] Apr, [facility] [address] [id number] [address] [place] [address], [place] [address] Apr, [facility] [place] [address] [id number] [place] [id number] Apr, [facility] [address] [id number] [address] [place] [address], [place] [address] Apr, [facility] [place] [address] [id number] [place] [id number] Apr, [facility] [address] [id number] [address] [place] [address], [place] [address] Apr, [facility] [address] [id number] [address] [place] [address], [place] [address] March, [facility] [address] [id number] [address] [place] [address], [place] [address] March, [facility] [place] [address] [id number] [place] [id number] March, [facility] [place] [address] [id number] [place] [id number] Feb, [facility] [address] [id number] [address] [place] [address], [place] [address] Feb, [facility] [place] [address] [id number] [place] [id number] Jan, [facility] [address] [id number] [address] [place] [address] Jan, [facility] [place] [address] [id number] [place] [id number] Dec, [facility] [address] [facility] [id number] [address] [place] [address] Dec, [facility] [place] [address] [facility] [id number] [place] [id number] Dec, [facility] [address] [facility] [id number] [address] [place] [address] Dec, [facility] [address] [facility] [id number] [address] [place] [address] Dec, [facility] [address] [facility] [id number] [address] [place] [address] Dec, [facility] [place] [address] [facility] [id number] [place] [id number] Nov, [facility] [address] [facility] [id number] [address] [place] [address] Nov, [facility] [place] [address] [facility] [id number] [place] [id number] Nov, [facility] [address] [facility] [id number] [address] [place] [address] Nov, [facility] [place] [address] [id number] [place] [id number] Nov, [facility] [address] [facility] [id number] [address] [place] [address] Nov, [facility] [place] [address] [id number] [place] [id number] Oct, [facility] [address] [facility] [id number] [address] [place] [address] Oct, [facility] [address] [facility] [id number] [address] [place] [address] Oct, [facility] [place] [address] [facility] [id number] [place] [id number] Oct, [facility] [address] [facility] [id number] [address] [place] [address] Sep, [facility] [address] [facility] [id number] [address] [place] [address] Sep, [facility] [place] [address] [id number] [place] [id number] Sep, [facility] [address] [facility] [id number] [address] [place] [address] Sep, [facility] [place] [address] [id number] [place] [id number] Aug, [facility] [address] [facility] [id number] [address] [place] [address] Aug, [facility] [place] [address] [id number] [place] [id number] Jul, [facility] [place] [address] [id number] [place] [id number] Jul, [facility] [place] [address] [id number] [place] [id number] Jun, [facility] [place] [address] [id number] [place] [id number] May, [facility] [place] [address] [id number] [place] [id number] May, [facility] [address] [facility] [id number] [address] [place] [address] May, [facility] [place] [address] [id number] [place] [id number] Apr, [facility] [place] [address] [id number] [place] [id number] Apr, [facility] [place] [address] [id number] [place] [id number] March, [facility] [place] [address] [id number] [place] [id number] Feb, [facility] [place] [address] [id number] [place] [id number] Feb, [facility] [place] [address] [id number] [place] [id number] Jan, [facility] [place] [address] [id number] [place] [id number] Jan, [facility] [place] [address] [id number] [place] [id number] Dec, [facility] [place] [address] [id number] [place] [id number] Nov, [facility] [address] [id number] [address] [place] [address], [place] [address] Oct, [facility] [address] [id number] [address] [place] [address], [place] [address] Oct, [facility] [place] [address] [id number] [place] [id number] Oct, [facility] [address] [facility] [id number] [address] [place] [address], [place] [address] Oct, [facility] [address] [facility] [id number] [address] [place] [address] Oct, [facility] [place] [address] [id number] [place] [id number] Oct, [facility] [place] [address] [id number] [place] [id number] Sep, [facility] [address] [facility] [id number] [address] [place] [address], [place] [address] Sep, [facility] [place] [address] [id number] [place] [id number] Sep, [facility] [address] [id number] [address] [place] [address], [place] [address] Sep, [facility] [place] [address] [id number] [place] [id number] Aug, [facility] [address] [facility] [id number] [address] [place] [address], [place] [address] Aug, [facility] [place] [address] [id number] [place] [id number] Aug, [facility] [place] [address] [id number] [place] [id number] Jun, [facility] [place] [address] [id number] [place] [id number] Jun, [facility] [address] [facility] [id number] [address] [place] [address] May, [facility] [place] [address] [id number] [place] [id number] Apr, [facility] [place] [address] [id number] [place] [id number] March, [facility] [place] [address] [id number] [place] [id number] Feb, [facility] [place] [address] [id number] [place] [id number] Jan, [facility] [place] [address] [id number] [place] [id number] Nov, [facility] [address] [id number] [address] [place] [address] Sep, [facility] [address] [id number] [address] [place] [address] Sep, [facility] [address] [id number] [address] [place] [address] Aug, [facility] [address] [id number] [address] [place] [address] Apr, [facility] [address] [id number] [address] [place] [address] March, IMMUNIZATIONS No Known Immunizations SOCIAL HISTORY Never Assessed REASON FOR VISIT PLAN OF CARE VITAL SIGNS Height 62 in 2013-11-12 Weight 171.2 lbs 2013-11-12 Temperature 98.2 degrees Fahrenheit 2013-11-12 Heart Rate 80 bpm 2013-11-12 Respiratory Rate 20 2013-11-12 Blood pressure systolic 118 mmHg 2013-11-12 Blood pressure diastolic 60 mmHg 2013-11-12 MEDICATIONS Unknown Medications RESULTS No Results PROCEDURES [...]
--- OUTSIDE RECORDS SUMMARY | 2020-03-30 07:12 | XMS REPORT ---
Author Author Devi TATE Organization [address] Address [address] [place] [address] Care Team Providers Care Supervisor Vendor Quality Name Role Phone TARIQ TATE Unavailable PROBLEMS Type Condition ICD9-CM Code [id number] Code Onset Dates Condition S tatus SNOMED Code Problem Osteoarthritis of both knees, unspecified osteoarthritis t ype M17.0 Active 687273093 Problem Other depression F32.8 Active 354 00121 Problem Hip bursitis, left M70.72 Active 8 8391990 Problem Chronic obstructive pulmonary disease, unspecified COPD ty pe J44.9 Active 93814909 Problem Arthralgia of right temporomandibular joint M26.62 Active 40225499 Problem Psychophysiological insomnia F51.04 A ctive 461777207 Problem Hypothyroidism, unspecified type E03.9 Active 62937579 Problem Hypothyroidism, unspecified type E03.9 Active 01913062 Problem Chronic obstructive pulmonary disease with acute exacerbat ion J44.1 Active 111224019 Problem Moderate episode of recurrent major depressive disorder F33.1 Active 004108447 Problem Seasonal allergic rhinitis, unspecified trigger J3 0.2 Active 827840076 Problem Sciatic leg pain M54.30 Active 230 95582 Problem Mixed hyperlipidemia E78.2 Active 548428418 Problem Mixed hyperlipidemia E78.2 Active 276264956 Problem Other chronic pain G89.29 Active 8 6746388 Problem Chronic obstructive pulmonary disease with acute exacerbat ion J44.1 Active 124302107 ALLERGIES No Information ENCOUNTERS Encounter Location Date Diagnosis [address] [id number] 0 6 Jan, 2020 Moderate episode of recurrent major depressive disorder F33.[address] [address] 2 5 Dec, 2019 Seasonal allergic rhinitis, unspecified trigger J30.[address] [address] 1 8 Dec, 2019 Moderate episode of recurrent major depressive disorder F33.[address] [address] 1 7 Dec, 2019 Chronic obstructive pulmonary disease, unspecified COPD type J44.9 and Cough R05 [address] [address] 1 0 Dec, 2019 Chronic obstructive pulmonary disease with acute exacerbation J44.1 and Chronic obstructive pulmonary disease, unspecified COPD type J44.[address] [address] 0 3 Nov, [address] [address] 0 2 Nov, [address] [place] [id number] Oct, Community acquired pneumonia, unspecifie d laterality J18.[address] [id number] Oct, Community acquired pneumonia, unspecified laterality J18.9 and Chronic obstructive pulmonary disease with acute exacerbation J44.[address] [id number] Oct, [address] [id number] Oct, [address] [id number] Oct, Hip bursitis, left M70.72 ; Pain in right shoulder M25.511 ; Other chronic pain G89.29 and Moderate episode of recurrent major depressive disorder F33.[address] [id number] Sep, Encounter for immunization Z23 [address] [id number] Sep, [address] [id number] Sep, Chronic obstructive pulmonary disease, unspecified COPD type J44.[address] [id number] Sep, Moderate episode of recurrent major depressive disorder F33.1 [place] [id number] [place] [address] [id number] Aug, Acute pain of right shoulder M25.511 and Injury of right rotator cuff, subsequent encounter S46.001D [address] [id number] Aug, [address] [id number] Aug, Moderate episode of recurrent major depressive disorder F33.1 and Chronic obstructive pulmonary disease, unspecified COPD type J44.[address] [id number] [employer] [place] [id number] Jul, Injury of right rotator cuff, subsequent encounter S46.001D ; Sciatic leg pain M54.30 and Acute pain of right shoulder M25.511 [place] [address] [id number] [employer] [place] [id number] Jul, [address] [id number] Jul, Community acquired pneumonia of left lower lobe of lung J18.[address] [id number] [employer] [place] [id number] Jul, [address] [id number] Jul, Injury of right rotator cuff, subsequent encounter S46.001D [address] [id number] [employer] [place] [id number] Jul, [address] [id number] Jul, [address] [id number] Jul, Screening for thyroid disorder Z13.29 [facility] [address] [id number] [employer] [employer] [place] [id number] Jun, Right shoulder pain, unspecified chronic ity M25.511 and Injury of right shoulder, initial encounter S49.91XA [address] [id number] Jun, Right shoulder pain, unspecified chronicity M25.511 and Injury of right shoulder, initial encounter S49.91XA [address] [id number] Jun, Moderate episode of recurrent major depressive disorder F33.1 ; Chronic obstructive pulmonary disease, unspecified COPD type J44.9 ; Mixed hyperlipidemia E78.2 and Hypothyroidism, unspecified type E03.[address] [id number] Jun, Chronic obstructive pulmonary disease, unspecified COPD type J44.[address] [id number] May, Contusion of right knee, initial encounter S80.01XA [address] [id number] May, Moderate episode of recurrent major depressive disorder F33.1 ; Chronic obstructive pulmonary disease, unspecified COPD type J44.9 and Sciatic leg pain M54.[address] [id number] May, [address] [id number] Apr, Urinary frequency R35.0 [facility] [place] [address] [facility] [id number] [id number] Apr, [place] [id number] [place] [address] [id number] March, Contusion of right knee, initial encounter S80.01XA and Chronic obstructive pulmonary disease, unspecified COPD type J44.[address] [id number] March, Moderate episode of recurrent major depressive disorder F33.1 and Urinary frequency R35.[address] [id number] Feb, [address] [id number] Feb, Chronic obstructive pulmonary disease, unspecified COPD type J44.[address] [id number] Feb, Dysuria R30.[address] [id number] Feb, Moderate episode of recurrent major depressive disorder F33.[address] [id number] Jan, Moderate episode of recurrent major depressive disorder F33.1 ; Chronic obstructive pulmonary disease, unspecified COPD type J44.9 ; Psychophysiological insomnia F51.04 ; Sciatic leg pain M54.30 and Contusion of right knee, initial encounter S80.01XA [address] [id number] Dec, Chronic obstructive pulmonary disease, unspecified COPD type J44.[address] [id number] Nov, Chronic obstructive pulmonary disease, unspecified COPD type J44.[address] [id number] Nov, Contusion of right knee, initial encounter S80.01XA [address] [id number] Nov, Osteoarthritis of both knees, unspecified osteoarthritis type M17.0 ; Sciatic leg pain M54.30 and Moderate episode of recurrent major depressive disorder F33.[address] [id number] Oct, Psychophysiological insomnia F51.[address] [id number] Sep, [facility] [address] [place] [address] [id number] [place] [id number] Sep, [address] [id number] Sep, Psychophysiological insomnia F51.[address] [id number] Aug, Breast cancer screening Z12.[address] [id number] Aug, [facility] [address] [facility] [place] [address] Aug, [place] [id number] [place] [address] [id number] Jul, [place] [id number] [place] [address] [id number] Jul, Chronic obstructive pulmonary disease, unspecified COPD type J44.9 ; Osteoarthritis of both knees, unspecified osteoarthritis type M17.0 ; Moderate episode of recurrent major depressive disorder F33.1 and Sciatic leg pain M54.30 [address] [place] [address] [id number] Jun, Moderate episode of recurrent major depressive disorder F33.1 ; Sciatic leg pain M54.30 and Chronic obstructive pulmonary disease, unspecified COPD type J44.9 [place] [id number] [place] [address] [id number] Jun, [address] [id number] May, Sciatic leg pain M54.30 [place] [id number] [place] [address] [id number] May, Chronic obstructive pulmonary disease, unspecified COPD type J44.9 [facility] [address] [id number] [place] [id number] May, [place] [id number] [place] [address] [id number] Apr, Moderate episode of recurrent major depressive disorder F33.1 ; Sciatic leg pain M54.30 and Chronic obstructive pulmonary disease, unspecified COPD type J44.9 [address] [place] [id number] March, [place] [id number] [place] [address] [id number] Feb, Sciatic leg pain M54.30 [facility] [address] [id number] [place] [id number] Feb, [address] [place] [address] [id number] Dec, Moderate episode of recurrent major depressive disorder F33.1 ; Sciatic leg pain M54.30 ; Chronic obstructive pulmonary disease, unspecified COPD type J44.9 and Screening for thyroid disorder Z13.[address] [id number] Dec, Chronic obstructive pulmonary disease, unspecified COPD type J44.[address] [id number] Nov, Sciatic leg pain M54.30 [place] [address] [facility] A[address] [id number] [place] [id number] Oct, [address] [id number] Oct, Acute pain of right shoulder M25.[address] [id number] Oct, Chronic obstructive pulmonary disease, unspecified COPD type J44.[address] [id number] Oct, [address] [id number] Sep, Chronic obstructive pulmonary disease, unspecified COPD type J44.9 and Sciatic leg pain M54.[address] [id number] Aug, Moderate episode of recurrent major depressive disorder F33.1 and Chronic obstructive pulmonary disease, unspecified COPD type J44.9 [facility] [address] [id number] [facility] [id number] Aug, Moderate episode of recurrent major depr essive disorder F33.[address] [id number] Jul, Other depression F32.8 and Chronic obstructive pulmonary disease, unspecified COPD type J44.[address] [id number] Jul, Moderate episode of recurrent major depressive disorder F33.1 [facility] [address] [id number] [place] [id number] Jun, [facility] [id number] Jun, Moderate episode of recurrent major depressive disorder F33.[address] [id number] Jun, Moderate episode of recurrent major depressive disorder F33.[address] [id number] Jun, [address] [id number] Jun, Sciatic leg pain M54.[address] [id number] Jun, [address] [id number] May, Screening for thyroid disorder Z13.29 and Screening for lipid disorders Z13.[address] [id number] May, Other depression F32.[address] [id number] Apr, Sciatic leg pain M54.[address] [id number] Apr, Screening for lipid disorders Z13.220 ; Screening for thyroid disorder Z13.29 and Chronic obstructive pulmonary disease, unspecified COPD type J44.[address] [id number] Apr, Screening for lipid disorders Z13.220 ; Screening for thyroid disorder Z13.29 and Chronic obstructive pulmonary disease, unspecified COPD type J44.[address] [id number] Apr, [address] [id number] Apr, Chronic obstructive pulmonary disease, unspecified COPD type J44.9 [facility] [address] [id number] [address] March, [address] [place] [address] [id number] March, Sciatic leg pain M54.30 and Other depression F32.[address] [id number] March, [address] [id number] Jan, Other depression F32.8 and Sciatic leg pain M54.[address] [id number] Jan, Sciatic leg pain M54.[address] [id number] Dec, Other depression F32.[address] [id number] Dec, Chronic obstructive pulmonary disease, unspecified COPD type J44.[address] [id number] Nov, [address] [id number] Oct, Other depression F32.8 and Chronic obstructive pulmonary disease, unspecified COPD type J44.[address] [id number] Aug, [address] [id number] Aug, Other depression F32.8 ; Arthralgia of right temporomandibular joint M26.62 and Encounter for immunization Z23 [address] [id number] Aug, Encounter for well woman exam Z01.[address] [id number] Jul, Other depression F32.8 and Arthralgia of right temporomandibular joint M26.[address] [id number] Jun, [facility] [place] [address] [id number] [address] Jun, [address] [id number] Jun, [place] [id number] [id number] Jun, Other depression F32.8 and Urinary tract infection without hematuria, site unspecified N39.0 [facility] [address] [id number] [place] [address] [id number] Apr, [place] [id number] [place] [address] [id number] Apr, Dysuria R30.0 [facility] [address] [facility] [place] [address] March, [place] [id number] [place] [address] [id number] March, Urinary tract infection, site unspecified N39.[address] [id number] March, Urinary tract infection, site unspecified N39.0 [place] [id number] [place] [address] [id number] Feb, [address] [id number] Feb, Headache R51 and Ear pain H92.[address] [id number] Jan, Osteoarthritis of both knees, unspecified osteoarthritis type M17.0 and Hip bursitis, left M70.72 [place] [id number] [place] [address] [id number] Jan, [address] [id number] Dec, Unspecified arthropathy, site unspecified 716.90 and COPD (chronic obstructive pulmonary disease) [address] [id number] Dec, [address] [id number] Nov, [address] [id number] Oct, [place] [id number] [place] [address] [id number] Sep, [place] [id number] [id number] Sep, [address] [place] [id number] Aug, [facility] [place] [address] [id number] [facility] [place] [id number] Aug, [address] [place] [id number] Aug, Urinary tract infection N39.0 and Shoulder strain, right, initial encounter S46.911A [address] [id number] Aug, Screening breast examination Z12.39 and Encounter for immunization Z23 [address] [id number] Aug, [facility] [address] [facility] [id number] [place] [id number] Aug, [address] [id number] Jul, [address] [id number] Jun, [address] [id number] Jun, Allergic rhinitis, cause unspecified 477.9 and Cough 786.[address] [id number] May, [address] [id number] May, [address] [id number] May, Visit for suture removal V58.[address] [id number] May, Dog bite 879.[address] [id number] Apr, Rib pain on right side 786.[address] [id number] Apr, [place] [address] [id number] Apr, Allergic rhinitis, cause unspecified 477.9 and Cough 786.2 [facility] [address] [place] [id number] [place] [address] [id number] March, [facility] [address] [id number] March, [address] [id number] March, [facility] [address] [id number] March, [facility] [address] [id number] March, Cough 786.2 and Shortness of breath 786.05 [facility] [address] [place] [id number] [place] [address] [id number] March, [place] [id number] [place] [address] [id number] March, Cough 786.2 ; COPD (chronic obstructive pulmonary disease) 496 and Allergic rhinitis, cause unspecified 477.[address] [place] [address] [id number] Feb, Allergic rhinitis, cause unspecified 477.9 ; Cough 786.2 and COPD (chronic obstructive pulmonary disease) 496 [facility] [address] [address] Feb, [facility] [address] [address] Feb, [facility] [address] [address] Jan, [facility] [address] [address] Jan, [facility] [address] [address] Jan, [place] [id number] [place] [address] [id number] Jan, [facility] [address] [address] Jan, [facility] [address] [facility]07757[facility] [id number] Dec, [facility] [address] [place] [id number] [place] [address] Dec, [facility] [address] [facility]07757[facility] [id number] Dec, 2014 [facility] [address] [id number] [place] [address] Dec, 2014 [facility] [address] [place] 22761757[facility] [id number] Dec, [facility] [address] [place] [id number] [place] [address] Dec, [facility] [address] [place] [id number] [place] [address] Dec, [facility] [address] [place] [id number] [id number] Nov, [facility] [address] [place] [id number] [place] [address] Nov, [facility] [address] [place] [id number] [place] [address] Nov, [facility] [address] [place] 22761757[place] [id number] Nov, [facility] [address] [place] [id number] [place] [address] Nov, [facility] [address] [place] 22761757[place] [id number] Oct, [facility] [address] [place] [id number] [place] [address] Oct, [facility] [address] [place] [id number] [id number] Sep, [facility] [address] [place] [id number] [place] [address] Sep, [facility] [address] [place] [id number] [id number] Sep, [facility] [address] [facility] [place] [address] Sep, [facility] [address] [facility]07757[facility] [id number] Aug, [facility] [address] [facility] [place] [address] Aug, [facility] [address] [facility]07757[facility] [id number] Aug, [facility] [address] [facility] [place] [address] Aug, [facility] [address] [facility] [place] [address] Jul, [facility] [address] [place] 22761757[facility] [id number] Jul, [facility] [address] [place] 22761757[facility] [id number] Jul, [facility] [address] [place] 22761757[place] [address] Jul, [facility] [address] [facility] [place] [address] Jul, [facility] [address] [facility] [place] [address] Jul, [facility] [address] [facility] [place] [address] Jul, [facility] [address] [facility] [place] [address] Jul, [facility] [address] [facility]07757[place] [id number] Jun, [facility] [address] [facility] [place] [address] Jun, [facility] [address] [facility] [place] [address] Jun, [facility] [address] [facility]07757[place] [id number] Jun, [facility] [address] [facility] [place] [address] Jun, [facility] [address] [facility]07757[facility] [id number] Jun, [facility] [address] [id number] [place] [address] Jun, [facility] [address] [facility]07757[facility] 088510183 Apr, [facility] [address] [id number] [place] [address] Apr, [facility] [address] [place] 22761757[facility] [id number] Apr, [facility] [address] [id number] [place] [address] Apr, [facility] [address] [place] 22761757[facility] [id number] Apr, [facility] [address] [id number] [place] [address] Apr, [facility] [address] [id number] [place] [address] March, [facility] [address] [id number] [place] [address] March, [facility] [address] [place] 22761757[facility] [id number] March, [facility] [address] [place] [id number] 233101942 Feb, [facility] [id number] [place] [address] Feb, [facility] [address] [place] 227617[place] [id number] Jan, [facility] [id number] [place] [address] Jan, [facility] [address] [place] 22761757[facility] [id number] Dec, [facility] [id number] [place] [address] Dec, [facility] [address] 22761757[place] [id number] Dec, [facility] [address] [facility] [place] [address] Dec, [facility] [address] [facility] [place] [address] Dec, [facility] [address] [facility] [place] [address] Dec, [facility] [address] [place] [id number] [id number] Nov, [facility] [id number] [place] [address] Nov, [facility] [address] [place] [id number] [id number] Nov, [facility] [id number] [place] [address] Nov, [facility] [address] [place] [address] [id number] [id number] Nov, [facility] [id number] [place] [address] Nov, [facility] [address] [place] [id number] [id number] Oct, [facility] [id number] [place] [address] Oct, [facility] [address] [facility] [place] [address] Oct, [facility] [address] [id number] [id number] Oct, [facility] [address] [facility] [place] [address] Sep, [facility] [id number] [place] [address] Sep, [facility] [address] [facility]07757[place] 44[address] Sep, [facility] [id number] [place] [address] Sep, [facility] [address] [place] 22761757[facility] [id number] Aug, [facility] [place] [facility] [id number] [place] [address] Aug, [facility] [id number] [place] [address], [place] [id number] Jul, [facility] [address] [id number] [id number] Jul, [facility] [address], [place] [id number] Jun, [facility] [id number] [place] [address], [place] [id number] May, [facility] [address], [place] [id number] May, [facility] [address] [id number] [place] [address] May, [facility] [address], [place] [id number] Apr, [facility] [address] [id number] [id number] Apr, [facility] [id number] [place] [address], [place] [id number] March, [facility] [id number] [place] [address], [place] [id number] Feb, [facility] [id number] [place] [address], [place] [id number] Feb, [facility] [address], [place] [id number] Jan, [facility] [id number] [place] [address], [place] [id number] Jan, [facility] [id number] [place] [address], [place] [id number] Dec, [facility] [id number] [place] [address], [place] [id number] Nov, [facility] [id number] [place] [address] Oct, [facility] [id number] [place] [address] Oct, [facility] [address] [id number] [id number] Oct, [facility] [id number] [place] [address] Oct, [facility] [id number] [place] [address] Oct, [facility] [id number] [place] [address], [place] [id number] Oct, [facility] [address] [id number] [id number] Sep, [facility] [id number] [place] [address] Sep, [facility] [id number] [place] [address], [place] [id number] Sep, [facility] [id number] [place] [address] Sep, [facility] [id number] [place] [id number] Aug, [facility] [id number] [place] [address] Aug, [facility] [id number] [id number] Aug, [facility] [id number] [id number] Jun, [facility] [id number] [place] [id number] Jun, [facility] [id number] [place] [address] May, [facility] [address] [id number] [id number] Apr, [facility] [id number] [place] [address], [place] [id number] March, [facility] [id number] [place] [address], [place] [id number] Feb, [facility] [address] [id number] Jan, [facility] [address] [facility] [id number] [place] [id number] Nov, [facility] [address] [id number] [place] [address] Sep, [facility] [address] [id number] [place] [address] Sep, [facility] [address] [id number] [place] [address] Aug, [facility] [address] [id number] [place] [address] Apr, [facility] [address] [id number] [place] [address] March, IMMUNIZATIONS No Known Immunizations SOCIAL HISTORY [...]
--- OUTSIDE RECORDS SUMMARY | 2020-03-30 07:12 | XMS REPORT ---
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9 Active 64435016 Problem Hypothyroidism, unspecified type E03.9 Active 69720709 Problem Chronic obstructive pulmonary disease with acute exacerbat ion J44.1 Active 389248036 Problem Moderate episode of recurrent major depressive disorder F33.1 Active 575437729 Problem Seasonal allergic rhinitis, unspecified trigger J3 0.2 Active 066526856 Problem Sciatic leg pain M54.30 Active 230 75560 Problem Mixed hyperlipidemia E78.2 Active 883459508 Problem Mixed hyperlipidemia E78.2 Active 215578928 Problem Other chronic pain G89.29 Active 8 7441384 Problem Chronic obstructive pulmonary disease with acute exacerbat ion J44.1 Active 254268081 ALLERGIES No Information ENCOUNTERS Encounter Location Date Diagnosis [address] [address] 2 5 Dec, 2019 Seasonal allergic rhinitis, unspecified trigger J30.[address] [address] 1 8 Dec, 2019 Moderate episode of recurrent major depressive disorder F33.[address] [address] 1 7 Dec, 2019 Chronic obstructive pulmonary disease, unspecified COPD type J44.9 and Cough R05 [address] [address] 1 0 Dec, 2019 Chronic obstructive pulmonary disease with acute exacerbation J44.1 and Chronic obstructive pulmonary disease, unspecified COPD type J44.[address] [place] [address] 0 3 Nov, [address] [address] 0 2 Nov, [address] [facility] [place] [facility] [place] [address] Oct, Community acquired pneumonia, unspecifie d laterality J18.[address] [id number] Oct, Community acquired pneumonia, unspecified laterality J18.9 and Chronic obstructive pulmonary disease with acute exacerbation J44.[address] [id number] Oct, [address] [id number] Oct, [address] [id number] Oct, Hip bursitis, left M70.72 ; Pain in right shoulder M25.511 ; Other chronic pain G89.29 and Moderate episode of recurrent major depressive disorder F33.[address] [id number] Sep, Encounter for immunization Z23 [address] [id number] Sep, [address] [id number] Sep, Chronic obstructive pulmonary disease, unspecified COPD type J44.[address] [id number] Sep, Moderate episode of recurrent major depressive disorder F33.[address] [id number] Aug, Acute pain of right shoulder M25.511 and Injury of right rotator cuff, subsequent encounter S46.001D [address] [id number] Aug, [address] [id number] Aug, Moderate episode of recurrent major depressive disorder F33.1 and Chronic obstructive pulmonary disease, unspecified COPD type J44.[address] [facility] [place] [address] [id number] [place] [id number] Jul, Injury of right rotator cuff, subsequent encounter S46.001D ; Sciatic leg pain M54.30 and Acute pain of right shoulder M25.511 [facility] [address] [id number] [place] [id number] Jul, [address] [id number] Jul, Community acquired pneumonia of left lower lobe of lung J18.1 [facility] [address] [id number] [place] [employer] [place] [id number] Jul, [address] [id number] Jul, Injury of right rotator cuff, subsequent encounter S46.001D [facility] [place] [address] [facility] [place] [facility] [address] [id number] [place] [employer] [place] [id number] Jul, [address] [id number] Jul, [address] [id number] Jul, Screening for thyroid disorder Z13.[address] [facility] [place] [address] [id number] [place] [id number] Jun, Right shoulder pain, unspecified chronic ity M25.511 and Injury of right shoulder, initial encounter S49.91XA [address] [id number] Jun, Right shoulder pain, unspecified chronicity M25.511 and Injury of right shoulder, initial encounter S49.91XA [address] [id number] Jun, Moderate episode of recurrent major depressive disorder F33.1 ; Chronic obstructive pulmonary disease, unspecified COPD type J44.9 ; Mixed hyperlipidemia E78.2 and Hypothyroidism, unspecified type E03.[address] [id number] Jun, Chronic obstructive pulmonary disease, unspecified COPD type J44.[address] [id number] May, Contusion of right knee, initial encounter S80.01XA [address] [id number] May, Moderate episode of recurrent major depressive disorder F33.1 ; Chronic obstructive pulmonary disease, unspecified COPD type J44.9 and Sciatic leg pain M54.[address] [id number] May, [address] [id number] Apr, Urinary frequency R35.0 [place] [address] [facility] [place] [place] [address] Apr, [address] [id number] March, Contusion of right knee, initial encounter S80.01XA and Chronic obstructive pulmonary disease, unspecified COPD type J44.[address] [id number] March, Moderate episode of recurrent major depressive disorder F33.1 and Urinary frequency R35.[address] [id number] Feb, [address] [id number] Feb, Chronic obstructive pulmonary disease, unspecified COPD type J44.[address] [id number] Feb, Dysuria R30.[address] [id number] Feb, Moderate episode of recurrent major depressive disorder F33.[address] [id number] Jan, Moderate episode of recurrent major depressive disorder F33.1 ; Chronic obstructive pulmonary disease, unspecified COPD type J44.9 ; Psychophysiological insomnia F51.04 ; Sciatic leg pain M54.30 and Contusion of right knee, initial encounter S80.01XA [address] [id number] Dec, Chronic obstructive pulmonary disease, unspecified COPD type J44.[address] [id number] Nov, Chronic obstructive pulmonary disease, unspecified COPD type J44.[address] [id number] Nov, Contusion of right knee, initial encounter S80.01XA [address] [id number] Nov, Osteoarthritis of both knees, unspecified osteoarthritis type M17.0 ; Sciatic leg pain M54.30 and Moderate episode of recurrent major depressive disorder F33.[address] [id number] Oct, Psychophysiological insomnia F51.04 [place] [id number] [place] [address] [id number] Sep, [address] [id number] [id number] Sep, [address] [place] [address] [id number] Sep, Psychophysiological insomnia F51.[address] [id number] Aug, Breast cancer screening Z12.[address] [id number] Aug, [facility] [address] [id number] [place] [address] Aug, [facility] [id number] Jul, [address] [id number] Jul, Chronic obstructive pulmonary disease, unspecified COPD type J44.9 ; Osteoarthritis of both knees, unspecified osteoarthritis type M17.0 ; Moderate episode of recurrent major depressive disorder F33.1 and Sciatic leg pain M54.[address] [id number] Jun, Moderate episode of recurrent major depressive disorder F33.1 ; Sciatic leg pain M54.30 and Chronic obstructive pulmonary disease, unspecified COPD type J44.[address] [id number] Jun, [address] [id number] May, Sciatic leg pain M54.[address] [id number] May, Chronic obstructive pulmonary disease, unspecified COPD type J44.9 [facility] [address] [id number] [place] [id number] May, [address] [id number] Apr, Moderate episode of recurrent major depressive disorder F33.1 ; Sciatic leg pain M54.30 and Chronic obstructive pulmonary disease, unspecified COPD type J44.[address] [id number] March, [address] [id number] Feb, Sciatic leg pain M54.[address] [facility] [place] [address] [id number] [place] [id number] Feb, [address] [id number] Dec, Moderate episode of recurrent major depressive disorder F33.1 ; Sciatic leg pain M54.30 ; Chronic obstructive pulmonary disease, unspecified COPD type J44.9 and Screening for thyroid disorder Z13.[address] [id number] [place] [address] Dec, Chronic obstructive pulmonary disease, unspecified COPD type J44.9 [facility] [address] [id number] Nov, Sciatic leg pain M54.30 [facility] [address] [id number] [place] [id number] Oct, [facility] [address] [id number] Oct, Acute pain of right shoulder M25.511 [facility] [address], [place] [id number] Oct, Chronic obstructive pulmonary disease, unspecified COPD type J44.9 [facility] [address], [place] [id number] Oct, [facility] [address], [place] [address] Sep, Chronic obstructive pulmonary disease, unspecified COPD type J44.9 and Sciatic leg pain M54.30 [facility] [address] [id number] Aug, Moderate episode of recurrent major depressive disorder F33.1 and Chronic obstructive pulmonary disease, unspecified COPD type J44.9 [facility] [address] [facility] [place] [facility] [place] [place] [id number] Aug, Moderate episode of recurrent major depr essive disorder F33.1 [facility] [address] [id number] Jul, Other depression F32.8 and Chronic obstructive pulmonary disease, unspecified COPD type J44.9 [facility] [address] [id number] Jul, Moderate episode of recurrent major depressive disorder F33.1 [facility] [address] [id number] [place] [id number] Jun, [facility] [address] [id number] Jun, Moderate episode of recurrent major depressive disorder F33.1 [facility] [address] [id number] Jun, Moderate episode of recurrent major depressive disorder F33.[address] [id number] Jun, [address] [id number] Jun, Sciatic leg pain M54.30 [place] [id number] [place] [address] [id number] Jun, [address] [id number] May, Screening for thyroid disorder Z13.29 and Screening for lipid disorders Z13.[address] [id number] May, Other depression F32.8 [place] [address] [place] [address] [id number] Apr, Sciatic leg pain M54.[address] [id number] Apr, Screening for lipid disorders Z13.220 ; Screening for thyroid disorder Z13.29 and Chronic obstructive pulmonary disease, unspecified COPD type J44.[address] [id number] Apr, Screening for lipid disorders Z13.220 ; Screening for thyroid disorder Z13.29 and Chronic obstructive pulmonary disease, unspecified COPD type J44.9 [address] [id number] Apr, [address] [id number] Apr, Chronic obstructive pulmonary disease, unspecified COPD type J44.[address] [facility] [place] [id number] [address] March, [address]757[place] [address] March, Sciatic leg pain M54.30 and Other depression F32.8 [place] [id number] [place] [id number] March, [facility] [id number] Jan, Other depression F32.8 and Sciatic leg pain M54.[address] [id number] 09 Jan, 2017 Sciatic leg pain M54.[address] [id number] Dec, Other depression F32.[address] [id number] Dec, Chronic obstructive pulmonary disease, unspecified COPD type J44.[address] [id number] Nov, [address] [id number] Oct, Other depression F32.8 and Chronic obstructive pulmonary disease, unspecified COPD type J44.[address] [id number] Aug, [address] [id number] Aug, Other depression F32.8 ; Arthralgia of right temporomandibular joint M26.62 and Encounter for immunization Z23 [address] [id number] Aug, Encounter for well woman exam Z01.[address] [id number] Jul, Other depression F32.8 and Arthralgia of right temporomandibular joint M26.[address] [id number] Jun, [facility] [id number] [address] Jun, [address] [id number] Jun, [address] [id number] Jun, Other depression F32.8 and Urinary tract infection without hematuria, site unspecified N39.[address] [facility] [place] [address] [place] [id number] [place] [address] [id number] Apr, [address] [id number] Apr, Dysuria R30.0 [facility] [place] [address] [id number] [place] [address] March, [facility] [address] [id number] March, Urinary tract infection, site unspecified N39.0 [facility] [address] [id number] March, Urinary tract infection, site unspecified N39.[address] [id number] Feb, [address] [id number] Feb, Headache R51 and Ear pain H92.[address] [id number] Jan, Osteoarthritis of both knees, unspecified osteoarthritis type M17.0 and Hip bursitis, left M70.[address] [id number] Jan, [place] [address] [id number] Dec, Unspecified arthropathy, site unspecified 716.90 and COPD (chronic obstructive pulmonary disease) [address] [id number] Dec, [address] [id number] Nov, [address] [id number] Oct, [facility] [address] [id number] Sep, [facility] [address] [id number] Sep, [address] [id number] Aug, [facility] [place] [address] [id number] [facility] [place] [id number] Aug, [address] [place] [address] [id number] Aug, Urinary tract infection N39.0 and Shoulder strain, right, initial encounter S46.911A [address] [id number] Aug, Screening breast examination Z12.39 and Encounter for immunization Z23 [address] [id number] Aug, [facility] [address] [facility] [id number] [facility] [place] [id number] Aug, [address] [id number] Jul, [address] [id number] Jun, [address] [id number] Jun, Allergic rhinitis, cause unspecified 477.9 and Cough 786.[address] [id number] May, [address] [id number] May, [address] [id number] May, Visit for suture removal V58.[address] [id number] May, Dog bite 879.[address] [id number] Apr, Rib pain on right side 786.[address] [id number] Apr, [address] [id number] Apr, Allergic rhinitis, cause unspecified 477.9 and Cough 786.2 [address]757[place] [address] March, [facility] [address] [place] [id number] [place] [address] [id number] March, [facility] [address] [place] [id number] [place] [address], [place] [id number] March, [facility] [place] [address] [place] [id number] [place] [address], [place] [id number] March, [address], [place] [id number] March, Cough 786.2 and Shortness of breath 786.[address] [id number] March, [address], [place] [id number] March, Cough 786.2 ; COPD (chronic obstructive pulmonary disease) 496 and Allergic rhinitis, cause unspecified 477.[address] [id number] Feb, Allergic rhinitis, cause unspecified 477.9 ; Cough 786.2 and COPD (chronic obstructive pulmonary disease) 496 [facility] [address] [address] Feb, [facility] [address] [address] Feb, [facility] [address] [address] Jan, [facility] [address] [address] Jan, [facility] [address] [address] Jan, [address] [id number] Jan, [facility] [address] [address] Jan, [place] [id number] [place] [address] [id number] Dec, [facility] [address] [id number] [place] [address] Dec, 2014 [facility] [place] [address] [place] [id number] [id number] Dec, 2014 [facility] [address] [id number] [place] [address] Dec, 2014 [facility] [place] [address] [place] [id number] [id number] Dec, [facility] [address] [place] [id number] [place] [address] Dec, [facility] [address] [place] [id number] [place] [address] Dec, [facility] [place] [address] [id number] [id number] Nov, [facility] [address] [place] [id number] [place] [address] Nov, [facility] [address] [place] [id number] [place] [address] Nov, [facility] [place] [address] [place] [id number] [id number] Nov, [facility] [address] [place] [id number] [place] [address] Nov, [facility] [place] [address] [place] [id number] [id number] Oct, [facility] [address] [place] [id number] [place] [address] Oct, [facility] [place] [address] [place] [address] Sep, [facility] [address] [place] [id number] [place] [address] Sep, [facility] [place] [address] [place] [id number] [address] Sep, [facility] [address] [place] [id number] [place] [address] Sep, [facility] [place] [address] [place] [id number] [address] Aug, [facility] [address] [id number] [place] [address] Aug, [facility] [place] [address] [facility]757[facility], [place] [id number] Aug, [facility] [address] [id number] [place] [address] Aug, [facility] [address] [id number] [place] [address] Jul, [facility] [place] [address] [facility]757[facility], [place] [id number] Jul, [facility] [place] [address] [facility]757[facility], [place] [id number] Jul, [facility] [place] [address] [facility]757[facility], [place] [id number] Jul, [facility] [address] [place] [id number] [place] [address] Jul, [facility] [address] [id number] [place] [address] Jul, [facility] [address] [id number] [place] [address] Jul, [facility] [address] [id number] [place] [address] Jul, [facility] [place] 120 [facility]07757[place] [id number] Jun, [facility] [address] [id number] [place] [address] Jun, [facility] [address] [id number] [place] [address] Jun, [facility] [place] [address] [facility]07757[place] [id number] Jun, [facility] [address] [id number] [place] [address] Jun, [facility] [place] [address] [facility]07757[place] [id number] Jun, [facility] [address] [id number] [place] [address] Jun, [facility] [place] [address] [facility]757[facility], [place] [id number] Apr, [facility] [address] [id number] [place] [address] Apr, [facility] [place] [address] [facility]757[facility], [place] [id number] Apr, [facility] [address] [id number] [place] [address] Apr, [facility] [place] [address] [place] [id number], [place] [id number] Apr, [facility] [address] [place] [id number] [place] [address] Apr, [facility] [address] [place] [id number] [place] [address] March, [facility] [address] [place] [id number] [place] [address] March, [facility] [place] [address] [place] [address] March, [facility] [place] [address] [place] [address] Feb, [facility] [address] [place] [id number] [place] [address] Feb, [facility] [place] [address] [facility]07757[place] [address] Jan, [facility] [address] [place] [id number] [place] [address] Jan, [facility] [place] [address] [place] [id number] [address]185[address] Dec, [facility] [address] [place] [id number] [place] [address] Dec, [facility] [place] [address] [facility]07757[place], [place] 8[address]39[address] Dec, [facility] [address] [place] [id number] [place] [address] Dec, [facility] [address] [id number] [place] [address] Dec, [facility] [address] [id number] [place] [address] Dec, [facility] [place] [address] [facility]07757G [place] [id number] Nov, [facility] [address] [place] [id number] [place] [address] Nov, [facility] [place] [address] [place] [id number], [place] [id number] Nov, [facility] [address] [place] [id number] [place] [address] Nov, [facility] [place] [address] [place] [id number] 194052401 Nov, [facility] [address] [place] [id number] [place] [address] Nov, [facility] [place] [address] [place] [id number], [place] 460247489 Oct, [facility] [address] [id number] [place] [address] Oct, [facility] [address] [id number] [place] [address] Oct, [facility] [place] [address] [place] [id number] 0[address]15764 Oct, [facility] [address] [id number] [place] [address] Sep, [facility] [address] [id number] [place] [address] Sep, [facility] [place] [address] [place] [id number], [place] [id number] Sep, [facility] [address] [id number] [place] [address] Sep, [facility] [place] 120 [facility]07757[place], [place] [address] Aug, [facility] [address] [place] [id number] [place] [address] Aug, [facility] [place] [address] [place] [id number], [place] [id number] Jul, [facility] [place] [address] [place] [id number], [place] [id number] Jul, [facility] [place] [address] [place] [address] [id number] [place] [address], [place] [id number] Jun, [facility] [place] [address], [place] [id number] May, [facility] [place] [address] [place] 81731757[facility], [place] [id number] May, [facility] [address] [id number] [place] [id number] May, [facility] [address] [id number], [place] [id number] Apr, [facility] [id number] [place] [address], [place] [id number] Apr, [facility] [id number] [place] [address], [place] [id number] March, [facility] [address] [id number], [place] [id number] Feb, [facility] [id number] [place] [address], [place] [id number] Feb, [facility] [address] [id number], [place] [id number] Jan, [facility] [id number] [address], [place] [id number] Jan, [facility] [id number] [place] [address], [place] [id number] Dec, [facility] [id number] [place] [address], [place] [id number] Nov, [facility] [id number] [place] [address] Oct, [facility] [address] [id number] [place] [address] Oct, [facility] [id number] [place] [address], [place] [id number] Oct, [facility] [address] [id number] [place] [address] Oct, [facility] [id number] [place] [address] Oct, [facility] [id number], [place] [id number] Oct, [facility] [id number] [place] [address], [place] [id number] Sep, [facility] [id number] [place] [address] Sep, [facility] [id number], [place] [id number] Sep, [facility] [id number] [place] [address] Sep, [facility] [id number] [place] [address], [place] [id number] Aug, [facility] [id number] [place] [address] Aug, [facility] [id number], [place] [id number] Aug, [facility] [address] [id number] Jun, [facility] [id number], [place] [id number] Jun, [facility] [id number] [place] [address] May, [facility] [id number] [place] [id number] Apr, [facility] [id number] [id number] March, [facility] [id number] [place] [address], [place] [id number] Feb, [facility] [id number] [place] [address], [place] [id number] Jan, [facility] [id number] [place] [address], [place] [id number] Nov, [facility] [address] [id number] [place] [address] Sep, [facility] [address] [id number] [place] [address] Sep, [facility] [address] [id number] [place] [address] Aug, [facility] [address] [id number] [place] [address] Apr, [facility] [address] [id number] [place] [address] March, IMMUNIZATIONS No Known Immunizations SOCIAL HISTORY Never Assessed REASON FOR VISIT PLAN OF CARE VITAL SIGNS Height 62 in 2013-12-10 Weight 173 lbs 2013-12-10 Temperature 98.3 degrees Fahrenheit 2013-12-10 Heart Rate 72 bpm 2013-12-10 Respiratory Rate 20 2013-12-10 Blood pressure systolic 118 mmHg 2013-12-10 Blood pressure diastolic 76 mmHg 2013-12-10 MEDICATIONS No Known Medications RESULTS No Results [...]
--- OUTSIDE RECORDS SUMMARY | 2020-03-30 07:12 | XMS REPORT ---
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9 Active 26424819 Problem Hypothyroidism, unspecified type E03.9 Active 58614342 Problem Chronic obstructive pulmonary disease with acute exacerbat ion J44.1 Active 444422803 Problem Moderate episode of recurrent major depressive disorder F33.1 Active 831439635 Problem Seasonal allergic rhinitis, unspecified trigger J3 0.2 Active 560605966 Problem Sciatic leg pain M54.30 Active 230 92147 Problem Mixed hyperlipidemia E78.2 Active 983002555 Problem Mixed hyperlipidemia E78.2 Active 730534218 Problem Other chronic pain G89.29 Active 8 6409466 Problem Chronic obstructive pulmonary disease with acute exacerbat ion J44.1 Active 541203861 ALLERGIES No Information ENCOUNTERS Encounter Location Date Diagnosis [address] [address] 0 6 Jan, 2020 Moderate episode of recurrent major depressive disorder F33.[address] [address] 2 5 Dec, 2019 Seasonal allergic rhinitis, unspecified trigger J30.[address] [address] 1 8 Dec, 2019 Moderate episode of recurrent major depressive disorder F33.[address] [address] 1 7 Dec, 2019 Chronic obstructive pulmonary disease, unspecified COPD type J44.9 and Cough R05 [address] [address] 1 0 Dec, 2019 Chronic obstructive pulmonary disease with acute exacerbation J44.1 and Chronic obstructive pulmonary disease, unspecified COPD type J44.[address] [address] 0 3 Nov, [address] [address] 0 2 Nov, [address] [place] [id number] Oct, Community acquired pneumonia, unspecifie d laterality J18.[address] [id number] Oct, Community acquired pneumonia, unspecified laterality J18.9 and Chronic obstructive pulmonary disease with acute exacerbation J44.[address] [id number] Oct, [address] [id number] Oct, [address] [id number] Oct, Hip bursitis, left M70.72 ; Pain in right shoulder M25.511 ; Other chronic pain G89.29 and Moderate episode of recurrent major depressive disorder F33.[address] [id number] Sep, Encounter for immunization Z23 [address] [id number] Sep, [address] [id number] Sep, Chronic obstructive pulmonary disease, unspecified COPD type J44.[address] [id number] Sep, Moderate episode of recurrent major depressive disorder F33.1 [place] [id number] [place] [address] [id number] Aug, Acute pain of right shoulder M25.511 and Injury of right rotator cuff, subsequent encounter S46.001D [address] [id number] Aug, [address] [id number] Aug, Moderate episode of recurrent major depressive disorder F33.1 and Chronic obstructive pulmonary disease, unspecified COPD type J44.[address] [id number] [place] [address] Jul, Injury of right rotator cuff, subsequent encounter S46.001D ; Sciatic leg pain M54.30 and Acute pain of right shoulder M25.511 [place] [address] [id number] [place] [id number] Jul, [address] [id number] Jul, Community acquired pneumonia of left lower lobe of lung J18.[address] [id number] [place] [id number] Jul, [address] [id number] Jul, Injury of right rotator cuff, subsequent encounter S46.001D [address] [id number] [place] [id number] Jul, [address] [id number] Jul, [address] [id number] Jul, Screening for thyroid disorder Z13.29 [facility] [address] [id number] [place] [id number] Jun, Right shoulder pain, unspecified chronic ity M25.511 and Injury of right shoulder, initial encounter S49.91XA [address] [id number] Jun, Right shoulder pain, unspecified chronicity M25.511 and Injury of right shoulder, initial encounter S49.91XA [address] [id number] Jun, Moderate episode of recurrent major depressive disorder F33.1 ; Chronic obstructive pulmonary disease, unspecified COPD type J44.9 ; Mixed hyperlipidemia E78.2 and Hypothyroidism, unspecified type E03.[address] [id number] Jun, Chronic obstructive pulmonary disease, unspecified COPD type J44.[address] [id number] May, Contusion of right knee, initial encounter S80.01XA [address] [id number] May, Moderate episode of recurrent major depressive disorder F33.1 ; Chronic obstructive pulmonary disease, unspecified COPD type J44.9 and Sciatic leg pain M54.[address] [id number] May, [address] [id number] Apr, Urinary frequency R35.0 [facility] [place] [address] [facility]ITAL[facility] [address] Apr, [place] [id number] [place] [address] [id number] March, Contusion of right knee, initial encounter S80.01XA and Chronic obstructive pulmonary disease, unspecified COPD type J44.[address] [id number] March, Moderate episode of recurrent major depressive disorder F33.1 and Urinary frequency R35.[address] [id number] Feb, [address] [id number] Feb, Chronic obstructive pulmonary disease, unspecified COPD type J44.[address] [id number] Feb, Dysuria R30.[address] [id number] Feb, Moderate episode of recurrent major depressive disorder F33.[address] [id number] Jan, Moderate episode of recurrent major depressive disorder F33.1 ; Chronic obstructive pulmonary disease, unspecified COPD type J44.9 ; Psychophysiological insomnia F51.04 ; Sciatic leg pain M54.30 and Contusion of right knee, initial encounter S80.01XA [address] [id number] Dec, Chronic obstructive pulmonary disease, unspecified COPD type J44.[address] [id number] Nov, Chronic obstructive pulmonary disease, unspecified COPD type J44.[address] [id number] Nov, Contusion of right knee, initial encounter S80.01XA [address] [id number] Nov, Osteoarthritis of both knees, unspecified osteoarthritis type M17.0 ; Sciatic leg pain M54.30 and Moderate episode of recurrent major depressive disorder F33.[address] [id number] Oct, Psychophysiological insomnia F51.[address] [id number] Sep, [facility] [address] [place] [address] [id number] [place] [id number] Sep, [address] [id number] Sep, Psychophysiological insomnia F51.[address] [id number] Aug, Breast cancer screening Z12.[address] [id number] Aug, [facility] [address] [facility] [place] [address] Aug, [place] [id number] [place] [address] [id number] Jul, [place] [address] [place] [address] [id number] Jul, Chronic obstructive pulmonary disease, unspecified COPD type J44.9 ; Osteoarthritis of both knees, unspecified osteoarthritis type M17.0 ; Moderate episode of recurrent major depressive disorder F33.1 and Sciatic leg pain M54.30 [address] [place] [address] [id number] Jun, Moderate episode of recurrent major depressive disorder F33.1 ; Sciatic leg pain M54.30 and Chronic obstructive pulmonary disease, unspecified COPD type J44.9 [place] [id number] [place] [address] [id number] Jun, [address] [id number] May, Sciatic leg pain M54.30 [place] [address] [place] [address] [id number] May, Chronic obstructive pulmonary disease, unspecified COPD type J44.9 [facility] [address] [id number] [place] [id number] May, [place] [id number] [place] [address] [id number] Apr, Moderate episode of recurrent major depressive disorder F33.1 ; Sciatic leg pain M54.30 and Chronic obstructive pulmonary disease, unspecified COPD type J44.9 [address] [place] [id number] March, [place] [id number] [place] [address] [id number] Feb, Sciatic leg pain M54.30 [facility] [address] [id number] [place] [id number] Feb, [address] [place] [address] [id number] Dec, Moderate episode of recurrent major depressive disorder F33.1 ; Sciatic leg pain M54.30 ; Chronic obstructive pulmonary disease, unspecified COPD type J44.9 and Screening for thyroid disorder Z13.[address] [id number] Dec, Chronic obstructive pulmonary disease, unspecified COPD type J44.[address] [id number] Nov, Sciatic leg pain M54.30 [place] [address] [facility] A[address] [id number]. [facility] [id number] Oct, [address] [id number] Oct, Acute pain of right shoulder M25.[address] [id number] Oct, Chronic obstructive pulmonary disease, unspecified COPD type J44.[address] [id number] Oct, [address] [id number] Sep, Chronic obstructive pulmonary disease, unspecified COPD type J44.9 and Sciatic leg pain M54.[address] [id number] Aug, Moderate episode of recurrent major depressive disorder F33.1 and Chronic obstructive pulmonary disease, unspecified COPD type J44.9 [facility] [address] [id number] [facility] [id number] Aug, Moderate episode of recurrent major depr essive disorder F33.[address] [id number] Jul, Other depression F32.8 and Chronic obstructive pulmonary disease, unspecified COPD type J44.[address] [id number] Jul, Moderate episode of recurrent major depressive disorder F33.1 [facility] [address] [id number] [place] [id number] Jun, [facility] [id number] Jun, Moderate episode of recurrent major depressive disorder F33.[address] [id number] Jun, Moderate episode of recurrent major depressive disorder F33.[address] [id number] Jun, [address] [id number] Jun, Sciatic leg pain M54.[address] [id number] Jun, [address] [id number] May, Screening for thyroid disorder Z13.29 and Screening for lipid disorders Z13.[address] [id number] May, Other depression F32.[address] [id number] Apr, Sciatic leg pain M54.[address] [id number] Apr, Screening for lipid disorders Z13.220 ; Screening for thyroid disorder Z13.29 and Chronic obstructive pulmonary disease, unspecified COPD type J44.[address] [id number] Apr, Screening for lipid disorders Z13.220 ; Screening for thyroid disorder Z13.29 and Chronic obstructive pulmonary disease, unspecified COPD type J44.[address] [id number] Apr, [address] [id number] Apr, Chronic obstructive pulmonary disease, unspecified COPD type J44.9 [facility] [address] [id number] [place] [address] March, [address] [place] [place] [address] [id number] March, Sciatic leg pain M54.30 and Other depression F32.[address] [id number] March, [address] [id number] Jan, Other depression F32.8 and Sciatic leg pain M54.[address] [id number] Jan, Sciatic leg pain M54.[address] [id number] Dec, Other depression F32.[address] [id number] Dec, Chronic obstructive pulmonary disease, unspecified COPD type J44.[address] [id number] Nov, [address] [id number] Oct, Other depression F32.8 and Chronic obstructive pulmonary disease, unspecified COPD type J44.[address] [id number] Aug, [address] [id number] Aug, Other depression F32.8 ; Arthralgia of right temporomandibular joint M26.62 and Encounter for immunization Z23 [address] [id number] Aug, Encounter for well woman exam Z01.[address] [id number] Jul, Other depression F32.8 and Arthralgia of right temporomandibular joint M26.[address] [id number] Jun, [facility] [place] [address] [place] [id number] [place] [address] Jun, [address] [id number] Jun, [place] [address] [place] [address] Jun, Other depression F32.8 and Urinary tract infection without hematuria, site unspecified N39.0 [facility] [address] [place] [id number] [place] [address] [id number] Apr, [place] [id number] [place] [address] [id number] Apr, Dysuria R30.0 [facility] [address] [facility] [place] [address] March, [place] [id number] [place] [address] [id number] March, Urinary tract infection, site unspecified N39.[address] [id number] March, Urinary tract infection, site unspecified N39.0 [place] [id number] [place] [address] [id number] Feb, [address] [id number] Feb, Headache R51 and Ear pain H92.[address] [id number] Jan, Osteoarthritis of both knees, unspecified osteoarthritis type M17.0 and Hip bursitis, left M70.72 [place] [id number] [place] [address] [id number] Jan, [address] [id number] Dec, Unspecified arthropathy, site unspecified 716.90 and COPD (chronic obstructive pulmonary disease) [address] [id number] Dec, [address] [id number] Nov, [address] [id number] Oct, [place] [id number] [place] [address] [id number] Sep, [place] [address] [place] [address] Sep, [address] [place] [id number] Aug, [facility] [place] [address] [id number] [facility] [place] [id number] Aug, [address] [place] [id number] Aug, Urinary tract infection N39.0 and Shoulder strain, right, initial encounter S46.911A [address] [id number] Aug, Screening breast examination Z12.39 and Encounter for immunization Z23 [address] [id number] Aug, [facility] [address] [facility] [id number] [id number] Aug, [address] [id number] Jul, [address] [id number] Jun, [address] [id number] Jun, Allergic rhinitis, cause unspecified 477.9 and Cough 786.[address] [id number] May, [address] [id number] May, [address] [id number] May, Visit for suture removal V58.[address] [id number] May, Dog bite 879.[address] [id number] Apr, Rib pain on right side 786.[address] [id number] Apr, [place] [address] [place] [address] Apr, Allergic rhinitis, cause unspecified 477.9 and Cough 786.2 [facility] [address] [place] [address] [id number] [place] [address] [id number] March, [facility] [address] [id number] March, [address] [id number] March, [facility] [address] [id number] March, [facility] [address] [id number] March, Cough 786.2 and Shortness of breath 786.05 [facility] [address] [place] [id number] [place] [address] [id number] March, [place] [id number] [place] [address] [id number] March, Cough 786.2 ; COPD (chronic obstructive pulmonary disease) 496 and Allergic rhinitis, cause unspecified 477.9 [address] [place] [address] [id number] Feb, Allergic rhinitis, cause unspecified 477.9 ; Cough 786.2 and COPD (chronic obstructive pulmonary disease) 496 [facility] [address] [address] Feb, [facility] [address] [address] Feb, [facility] [address] [address] Jan, [facility] [address] [address] Jan, [facility] [address] [address] Jan, [place] [id number] [place] [address] [id number] Jan, [facility] [address] [address] Jan, [facility] [address] [facility]757[facility] [id number] Dec, [facility] [address] [id number] [place] [address] Dec, [facility] [address] [facility]07757[facility] [id number] Dec, 2014 [facility] [id number] [place] [address] Dec, 2014 [facility] [address] [place] [id number] [id number] Dec, [facility] [id number] [place] [address] Dec, [facility] [id number] [place] [address] Dec, [facility] [address] [place] [place] [address] [place] [id number] Nov, [facility] [id number] [place] [address] Nov, [facility] [id number] [place] [address] Nov, [facility] [address] [place] [address]00757[address] [place] [id number] Nov, [facility] [id number] [place] [address] Nov, [facility] [address] [place] [address] 20000757[address] [place] [id number] Oct, [facility] [id number] [place] [address] Oct, [facility] [address] [place] 8[address]757[place] [id number] Sep, [facility] [id number] [place] [address] Sep, [facility] [address] [place] [address] [id number] Sep, [facility] [address] [facility] [place] [address] Sep, [facility] [address] [facility]07757[facility] [id number] Aug, [facility] [address] [id number] [place] [address] Aug, [facility] [address] [facility]07757[facility] [id number] Aug, [facility] [address] [id number] [place] [address] Aug, [facility] [address] [facility] [place] [address] Jul, [facility] [address] [place] [id number] [id number] Jul, [facility] [address] [place] 20000757[facility] [id number] Jul, [facility] [address] [address] 20000757[address] [place] [id number] Jul, [facility] [address] [facility] [place] [address] Jul, [facility] [address] [facility] [place] [address] Jul, [facility] [address] [facility] [place] [address] Jul, [facility] [address] [facility] [place] [address] Jul, [facility] [address] [facility]757DE [place] [id number] Jun, [facility] [address] [facility] [place] [address] Jun, [facility] [address] [facility] [place] [address] Jun, [facility] [address] [facility]07757DE [place] 9234[address] Jun, [facility] [address] [facility] [place] [address] Jun, [facility] [address] [facility]07757[facility] [id number] Jun, [facility] [id number] [place] [address] Jun, [facility] [address] [facility]07757[facility] [id number] Apr, [facility] [id number] [place] [address] Apr, [facility] [address] [place] [id number] [id number] Apr, [facility] [id number] [place] [address] Apr, [facility] [address] [place] [id number] [id number] Apr, [facility] [id number] [place] [address] Apr, [facility] [id number] [place] [address] March, [facility] [id number] [place] [address] March, [facility] [address] [place] [id number] [id number] March, [facility] [address] [place] [id number] 0505038[address] Feb, [facility] [id number] [place] [address] Feb, [facility] [address] [id number] [place] [id number] Jan, [facility] [id number] [place] [address] Jan, [facility] [address] [place] [id number] [id number] Dec, [facility] [id number] [place] [address] Dec, [facility] [address] [id number] [place] 907[address]80[address] Dec, [facility] [address] [facility] [place] [address] Dec, [facility] [address] [id number] [place] [address] Dec, [facility] [address] [id number] [place] [address] Dec, [facility] [address] [place] [id number] Nov, [facility] [id number] [place] [address] Nov, [facility] [address] [id number] [id number] Nov, [facility] [id number] [place] [address] Nov, [facility] [id number] [id number] Nov, [facility] [id number] [place] [address] Nov, [facility] [address] [id number] [place] 02736[address]13 Oct, [facility] [id number] [place] [address] Oct, [facility] [address] [id number] [place] [address] Oct, [facility] [address] [place] 1772[address] Oct, [facility] [address] [id number] [place] [address] Sep, [facility] [id number] [place] [address] Sep, [facility] [address] [facility] [place] [id number] Sep, [facility] [id number] [place] [address] Sep, [facility] [address] [id number] [id number] Aug, [facility] [id number] [place] [address] Aug, [facility] [id number] [place] [address], [place] [id number] Jul, [facility] [address] [id number] [id number] Jul, [facility] [address], [place] [id number] Jun, [facility] [id number] [place] [address], [place] [id number] May, [facility] [address], [place] [id number] May, [facility] [id number] [place] [address] May, [facility] [address], [place] [id number] Apr, [facility] [address] [place] [id number] [id number] Apr, [facility] [id number] [place] [address], [place] [id number] March, [facility] [id number] [place] [address], [place] [id number] Feb, [facility] [id number] [place] [address], [place] [id number] Feb, [facility] [address], [place] [id number] Jan, [facility] [id number] [place] [address], [place] [id number] Jan, [facility] [id number] [place] [address], [place] [id number] Dec, [facility] [id number] [place] [address], [place] [id number] Nov, [facility] [address] [id number] [place] [address] Oct, [facility] [id number] [place] [address] Oct, [facility] [address] [id number] [id number] Oct, [facility] [address] [id number] [place] [address] Oct, [facility] [address] [id number] [place] [address] Oct, [facility] [id number] [place] [address], [place] [id number] Oct, [facility] [address] [id number] [id number] Sep, [facility] [address] [id number] [place] [address] Sep, [facility] [id number] [place] [address], [place] [id number] Sep, [facility] [address] [id number] [place] [address] Sep, [facility] [id number] [place] [id number] Aug, [facility] [address] [id number] [place] [address] Aug, [facility] [id number] [place] [id number] Aug, [facility] [address] [id number] [place] [id number] Jun, [facility] [id number] [place] [id number] Jun, [facility] [address] [id number] [place] [address] May, [facility] [address] [id number] [place] [id number] Apr, [facility] [id number] [place] [address], [place] [id number] March, [facility] [id number] [place] [address], [place] [id number] Feb, [facility] [address] [id number] Jan, [facility] [address] [facility] [id number] [place] [id number] Nov, [facility] [address] [id number] [place] [address] Sep, [facility] [address] [id number] [place] [address] Sep, [facility] [address] [id number] [place] [address] Aug, [facility] [address] [id number] [place] [address] Apr, [facility] [address] [id number] [place] [address] March, IMMUNIZATIONS No Known Immunizations SOCIAL HISTORY [...]
--- OUTSIDE RECORDS SUMMARY | 2020-03-30 07:13 | XMS REPORT ---
Author Author Devi TATE Organization [address] Address [address] [place] [address] Care Team Providers Care Patient Financial Coordinator Name Role Phone TARIQ TATE Unavailable PROBLEMS Type Condition ICD9-CM Code ZOF40-FW Code Onset Dates Condition S tatus SNOMED Code Problem Hip bursitis, left M70.72 Active 8 5976130 Problem Osteoarthritis of both knees, unspecified osteoarthritis t ype M17.0 Active 813799085 Problem Arthralgia of right temporomandibular joint M26.62 Active 09141465 Problem Other depression F32.8 Active 354 38518 Problem Moderate episode of recurrent major depressive disorder F33.1 Active 316595199 Problem Psychophysiological insomnia F51.04 A ctive 240095996 Problem Hypothyroidism, unspecified type E03.9 Active 98789189 Problem Chronic obstructive pulmonary disease with acute exacerbat ion J44.1 Active 710824491 Problem Sciatic leg pain M54.30 Active 230 37200 Problem Chronic obstructive pulmonary disease with acute exacerbat ion J44.1 Active 638579536 Problem Chronic obstructive pulmonary disease, unspecified COPD ty pe J44.9 Active 36433788 Problem Hypothyroidism, unspecified type E03.9 Active 37322604 Problem Mixed hyperlipidemia E78.2 Active 729954276 Problem Mixed hyperlipidemia E78.2 Active 076571773 Problem Other chronic pain G89.29 Active 8 3234000 ALLERGIES No Information ENCOUNTERS Encounter Location Date Diagnosis [address] [place] [address] 0 3 Nov, [address] [place] [address] 0 2 Nov, 2019 [facility] [address] [id number] [place] [id number] Oct, Community acquired pneumonia, unspecifie d laterality J18.9 [facility] 120 [facility] [id number] [place] [address] [id number] Oct, Community acquired pneumonia, unspecified laterality J18.9 and Chronic obstructive pulmonary disease with acute exacerbation J44.[address] [id number] Oct, [address] [id number] Oct, [address] [id number] Oct, Hip bursitis, left M70.72 ; Pain in right shoulder M25.511 ; Other chronic pain G89.29 and Moderate episode of recurrent major depressive disorder F33.[address] [id number] Sep, Encounter for immunization Z23 [address] [id number] Sep, [address] [id number] Sep, Chronic obstructive pulmonary disease, unspecified COPD type J44.[address] [id number] Sep, Moderate episode of recurrent major depressive disorder F33.[address] [id number] Aug, Acute pain of right shoulder M25.511 and Injury of right rotator cuff, subsequent encounter S46.001D [address] [id number] Aug, [address] [id number] Aug, Moderate episode of recurrent major depressive disorder F33.1 and Chronic obstructive pulmonary disease, unspecified COPD type J44.9 [facility] [address] [id number] [facility] [place] [id number] Jul, Injury of right rotator cuff, subsequent encounter S46.001D ; Sciatic leg pain M54.30 and Acute pain of right shoulder M25.511 [facility] [address] [id number] [place] [id number] Jul, [address] [id number] Jul, Community acquired pneumonia of left lower lobe of lung J18.[address], [place] [id number] Jul, [address] [id number] Jul, Injury of right rotator cuff, subsequent encounter S46.001D [address], [place] [id number] Jul, [address] [id number] Jul, [address] [id number] Jul, Screening for thyroid disorder Z13.[address], [place] [id number] Jun, Right shoulder pain, unspecified chronic ity M25.511 and Injury of right shoulder, initial encounter S49.91XA [address] [id number] Jun, Right shoulder pain, unspecified chronicity M25.511 and Injury of right shoulder, initial encounter S49.91XA [address] [id number] Jun, Moderate episode of recurrent major depressive disorder F33.1 ; Chronic obstructive pulmonary disease, unspecified COPD type J44.9 ; Mixed hyperlipidemia E78.2 and Hypothyroidism, unspecified type E03.[address] [id number] Jun, Chronic obstructive pulmonary disease, unspecified COPD type J44.[address] [id number] May, Contusion of right knee, initial encounter S80.01XA [address] [id number] May, Moderate episode of recurrent major depressive disorder F33.1 ; Chronic obstructive pulmonary disease, unspecified COPD type J44.9 and Sciatic leg pain M54.30 [facility] [address] [id number] May, [facility] [address] [id number] Apr, Urinary frequency R35.0 [facility] [place] [address] [facility] [id number] [place] [id number] Apr, [facility] [address] [id number] March, Contusion of right knee, initial encounter S80.01XA and Chronic obstructive pulmonary disease, unspecified COPD type J44.[address] [id number] March, Moderate episode of recurrent major depressive disorder F33.1 and Urinary frequency R35.[address] [id number] Feb, [facility] [address] [id number] Feb, Chronic obstructive pulmonary disease, unspecified COPD type J44.[address] [id number] Feb, Dysuria R30.[address] [id number] Feb, Moderate episode of recurrent major depressive disorder F33.1 [facility] [address] [id number] Jan, Moderate episode of recurrent major depressive disorder F33.1 ; Chronic obstructive pulmonary disease, unspecified COPD type J44.9 ; Psychophysiological insomnia F51.04 ; Sciatic leg pain M54.30 and Contusion of right knee, initial encounter S80.01XA [facility] [address] [id number] Dec, Chronic obstructive pulmonary disease, unspecified COPD type J44.[address] [id number] Nov, Chronic obstructive pulmonary disease, unspecified COPD type J44.9 [address] [id number] Nov, Contusion of right knee, initial encounter S80.01XA [facility] [address] [id number] Nov, Osteoarthritis of both knees, unspecified osteoarthritis type M17.0 ; Sciatic leg pain M54.30 and Moderate episode of recurrent major depressive disorder F33.1 [facility] [address] [id number] Oct, Psychophysiological insomnia F51.04 [facility] [address] [id number] Sep, [facility] [place] [id number] [id number] [place] [id number] Sep, [address] [id number] Sep, Psychophysiological insomnia F51.[address] [id number] Aug, Breast cancer screening Z12.[address] [id number] Aug, [facility] [address] [facility] [place] [address] Aug, [address] [id number] Jul, [address] [id number] Jul, Chronic obstructive pulmonary disease, unspecified COPD type J44.9 ; Osteoarthritis of both knees, unspecified osteoarthritis type M17.0 ; Moderate episode of recurrent major depressive disorder F33.1 and Sciatic leg pain M54.[address] [id number] Jun, Moderate episode of recurrent major depressive disorder F33.1 ; Sciatic leg pain M54.30 and Chronic obstructive pulmonary disease, unspecified COPD type J44.9 [facility] [address] [id number] Jun, [address] [id number] May, Sciatic leg pain M54.30 [place] [id number] [place] [address] [id number] May, Chronic obstructive pulmonary disease, unspecified COPD type J44.9 [facility] [address] [id number] [place] [id number] May, [address] [id number] Apr, Moderate episode of recurrent major depressive disorder F33.1 ; Sciatic leg pain M54.30 and Chronic obstructive pulmonary disease, unspecified COPD type J44.[address] [id number] March, [address] [id number] Feb, Sciatic leg pain M54.30 [facility] [address] [id number] [place] [id number] Feb, [address] [id number] Dec, Moderate episode of recurrent major depressive disorder F33.1 ; Sciatic leg pain M54.30 ; Chronic obstructive pulmonary disease, unspecified COPD type J44.9 and Screening for thyroid disorder Z13.[address] [id number] Dec, Chronic obstructive pulmonary disease, unspecified COPD type J44.[address] [id number] Nov, Sciatic leg pain M54.30 [facility] [address] [id number] [place] [id number] Oct, [address] [id number] Oct, Acute pain of right shoulder M25.[address] [id number] Oct, Chronic obstructive pulmonary disease, unspecified COPD type J44.[address] [id number] Oct, [place] [id number] [place] [address] [id number] Sep, Chronic obstructive pulmonary disease, unspecified COPD type J44.9 and Sciatic leg pain M54.[address] [id number] Aug, Moderate episode of recurrent major depressive disorder F33.1 and Chronic obstructive pulmonary disease, unspecified COPD type J44.9 [place] [address] [id number] [place] [place] [id number] Aug, Moderate episode of recurrent major depr essive disorder F33.[address] [id number] Jul, Other depression F32.8 and Chronic obstructive pulmonary disease, unspecified COPD type J44.[address] [id number] Jul, Moderate episode of recurrent major depressive disorder F33.1 [place] [address] [facility] [id number] [place] [place] [id number] Jun, [address] [id number] Jun, Moderate episode of recurrent major depressive disorder F33.[address] [id number] Jun, Moderate episode of recurrent major depressive disorder F33.[address] [id number] Jun, [address] [id number] Jun, Sciatic leg pain M54.[address] [id number] Jun, [address] [id number] May, Screening for thyroid disorder Z13.29 and Screening for lipid disorders Z13.[address] [id number] May, Other depression F32.[address] [id number] Apr, Sciatic leg pain M54.[address] [id number] Apr, Screening for lipid disorders Z13.220 ; Screening for thyroid disorder Z13.29 and Chronic obstructive pulmonary disease, unspecified COPD type J44.[address] [id number] Apr, Screening for lipid disorders Z13.220 ; Screening for thyroid disorder Z13.29 and Chronic obstructive pulmonary disease, unspecified COPD type J44.[address] [id number] Apr, [address] [id number] Apr, Chronic obstructive pulmonary disease, unspecified COPD type J44.[address] [id number] [place] [address] March, [address] [id number] March, Sciatic leg pain M54.30 and Other depression F32.[address] [id number] March, [address] [id number] Jan, Other depression F32.8 and Sciatic leg pain M54.[address] [id number] Jan, Sciatic leg pain M54.[address] [id number] Dec, Other depression F32.[address] [id number] Dec, Chronic obstructive pulmonary disease, unspecified COPD type J44.[address] [id number] Nov, [address] [id number] Oct, Other depression F32.8 and Chronic obstructive pulmonary disease, unspecified COPD type J44.9 [facility] [address] [id number] Aug, [facility] [address] [id number] Aug, Other depression F32.8 ; Arthralgia of right temporomandibular joint M26.62 and Encounter for immunization Z23 [facility] [address] [id number] Aug, Encounter for well woman exam Z01.419 [facility] [address] [id number] Jul, Other depression F32.8 and Arthralgia of right temporomandibular joint M26.62 [facility] [address] [id number] Jun, [facility] [id number] [address] Jun, [facility] [address] [id number] Jun, [facility] [address] [id number] Jun, Other depression F32.8 and Urinary tract infection without hematuria, site unspecified N39.0 [facility] [address] [id number] Apr, [facility] [address] [id number] Apr, Dysuria R30.[address] [facility] [address] [facility] [place] [address] March, [facility] [address] [id number] March, Urinary tract infection, site unspecified N39.0 [facility] [address] [id number] March, Urinary tract infection, site unspecified N39.0 [facility] [address] [id number] Feb, [address] [id number] Feb, Headache R51 and Ear pain H92.[address] [id number] Jan, Osteoarthritis of both knees, unspecified osteoarthritis type M17.0 and Hip bursitis, left M70.[address] [id number] Jan, [address] [id number] Dec, Unspecified arthropathy, site unspecified 716.90 and COPD (chronic obstructive pulmonary disease) [address] [id number] Dec, [address] [id number] Nov, [address] [id number] Oct, [address] [id number] Sep, [address] [id number] Sep, [address] [id number] Aug, [address] [id number] [place] [id number] Aug, [address] [place] [address] [id number] Aug, Urinary tract infection N39.0 and Shoulder strain, right, initial encounter S46.911A [address] [id number] Aug, Screening breast examination Z12.39 and Encounter for immunization Z23 [address] [id number] Aug, [facility] [place] 510964 [facility] [id number] [place] [id number] Aug, [address] [id number] Jul, [facility] [address] [id number] Jun, [facility] [address] [id number] Jun, Allergic rhinitis, cause unspecified 477.9 and Cough 786.2 [facility] [address] [id number] May, [facility] [address] [id number] May, [facility] [address] [id number] May, Visit for suture removal V58.32 [facility] [address] [id number] May, Dog bite 879.[address] [id number] Apr, Rib pain on right side 786.50 [facility] [address] [id number] Apr, [facility] [address] [id number] Apr, Allergic rhinitis, cause unspecified 477.9 and Cough 786.2 [facility] [address] [id number] March, [facility] [address] [id number] March, [facility] [address] [id number] March, [facility] [address] [id number] March, [facility] [address] [id number] March, Cough 786.2 and Shortness of breath 786.05 [facility] [address] [id number] March, [facility] [address] [id number] March, Cough 786.2 ; COPD (chronic obstructive pulmonary disease) 496 and Allergic rhinitis, cause unspecified 477.9 [facility] [place] [address] [id number] [id number] Feb, Allergic rhinitis, cause unspecified 477.9 ; Cough 786.2 and COPD (chronic obstructive pulmonary disease) 496 [facility] [id number] [place] [address] 14 Feb, 2015 [facility] [address] [address] Feb, [facility] [address] [address] Jan, [facility] [address] [address] Jan, [facility] [address] [address] Jan, [facility] [address] [id number] Jan, [facility] [address] [address] Jan, [facility] [address] [id number] Dec, [facility] [id number] [place] [address] Dec, [facility] [address] [id number] [id number] Dec, [facility] [id number] [place] [address] Dec, [facility] [place] [address] [id number] [place] [address] [id number] Dec, [facility] [address] [address] Dec, [facility] [address] [address] Dec, [facility] [place] [address] [id number] Nov, [facility] [id number] [place] [address] Nov, [facility] [address] [facility] [place] [address] Nov, [facility] [address] [place] [address] [id number] [id number] Nov, [facility] [id number] [place] [address] Nov, [facility] [address] [place] [id number] [id number] Oct, [facility] [address] [place] [id number] [place] [address] Oct, [facility] [address] [place] [id number] [place] [address] [id number] Sep, [facility] [id number] [place] [address] Sep, [facility] [place] [address] [place] [id number] [place] [address] [id number] Sep, [facility] [id number] [place] [address] Sep, [facility] [address] [id number] [id number] Aug, [facility] [id number] [place] [address] Aug, [facility] [place] [address] [id number] [place] [address] [id number] Aug, [facility] [id number] [place] [address] Aug, [facility] [address] [address] Jul, [facility] [address] [id number] [address] Jul, [facility] [address] [id number] [place] [address] [id number] Jul, [facility] [place] [address] [id number] Jul, [facility] [address] [id number] [place] [address] Jul, [facility] [address] [id number] [place] [address] Jul, [facility] [address] [id number] [place] [address] Jul, [facility] [address] [id number] [place] [address] Jul, [facility] [address] [facility] [address] Jun, [facility] [id number] [place] [address] Jun, [facility] [address] [id number] [place] [address] Jun, [facility] [address] [id number] [address] Jun, [facility] [address] [facility] [place] [address] Jun, [facility] [address] [place] [id number] [address] Jun, [facility] [address] [facility] [place] [address] Jun, [facility] [address] [id number] [id number] Apr, [facility] [address] [id number] [place] [address] Apr, [facility] 120 [facility]757[place] [id number] Apr, [facility] [address] [id number] [place] [address] Apr, [facility] 120 [facility]757[place] [id number] Apr, [facility] [address] [id number] [place] [address] Apr, [facility] [address] [id number] [place] [address] March, [facility] [id number] [place] [address] March, [facility] [address] [place] [address] [id number] [id number] March, [facility] [address] [place] [id number] [address] Feb, [facility] [id number] [place] [address] Feb, [facility] [address] [place] [address] [id number] [id number] Jan, [facility] [id number] [place] [address] Jan, [facility] [address] [address] [id number] [id number] Dec, [facility] [id number] [place] [address] Dec, [facility] [address] [address] [id number] [id number] Dec, [facility] [id number] [place] [address] Dec, [facility] [id number] [place] [address] Dec, [facility] [id number] [place] [address] Dec, [facility] [address] [id number] [id number] Nov, [facility] [id number] [place] [address] Nov, [facility] [address] [id number] 720[address]051 Nov, [facility] [id number] [place] [address] Nov, [facility] [address] [id number] [address] Nov, [facility] [place] [facility] [id number] [place] [address] Nov, [facility] [address] [place] [id number] [address] Oct, [facility] [id number] [place] [address] Oct, [facility] [id number] [place] [address] Oct, [facility] 120 [facility]07757[facility] [id number] Oct, [facility] [id number] [place] [address] Sep, [facility] [address] [id number] [place] [address] Sep, [facility] [address] [address] [id number] [id number] Sep, [facility] [id number] [place] [address] Sep, [facility] [address] [id number] [id number] Aug, [facility] [id number] [place] [address] Aug, [facility] [address] [id number] [id number] Jul, [facility] [address] [address] [id number] 540403124 Jul, [facility] 120 [facility]757[facility] [id number] Jun, [facility] [address] [id number] 6459[address]146 May, [facility] [address] [place] [id number] [id number] May, [facility] [id number] [place] [address] May, [facility] [address] [address] [id number] [id number] Apr, [facility] [address] [facility] [place] [id number] Apr, [facility] [address] [id number] [id number] March, [facility] [address] [facility] 876[address] Feb, [facility] [address] [id number] [address] Feb, [facility] [address] [id number] 8004[address]371 Jan, [facility] [address] [id number] 454956481 Jan, [facility] [address] [id number] [id number] Dec, [facility] [address] [id number] [id number] Nov[facility] [id number] [place] [address] Oct, [facility] [id number] [place] [address] Oct, [facility] [address] [id number] [id number] Oct, [facility] [address] [id number] [place] [address] Oct, [facility] [address] [id number] Oct, [facility] [address] [id number] [id number] Oct, [facility] [address] [id number] [id number] Sep, [facility] [id number] [place] [address] Sep, [facility] [id number] [place] [address], [place] [id number] Sep, [facility] [address] [id number] Sep, [facility] [address] [id number] [id number] Aug[facility] [address] [address] [address] Aug, [facility] [address] [id number] [place] [id number] Aug, [facility] [id number] [place] [address], [place] [id number] Jun, [facility] [address], [place] [id number] Jun, [facility] [address] [phone] May, [facility] [id number] [place] [address], [place] [id number] Apr, [facility] [id number] [place] [address], [place] [id number] March, [facility] [address] [id number] Feb, [facility] [id number] [place] [id number] Jan, [facility] [address] [id number] Nov, [facility] [id number] [place] [address] Sep, [facility] [address] [id number] Sep, [facility] [id number] [place] [address] Aug, [facility] [address] [address] Apr, [facility] [address] [phone] March, IMMUNIZATIONS No Known Immunizations SOCIAL HISTORY Never Assessed REASON FOR VISIT PLAN OF CARE VITAL SIGNS Height 62 in 2014-03-24 Weight 172.8 lbs 2014-03-24 Temperature 97.6 degrees Fahrenheit 2014-03-24 Heart Rate 80 bpm 2014-03-24 Respiratory Rate 16 2014-03-24 Blood pressure systolic 116 mmHg 2014-03-24 Blood pressure diastolic 78 mmHg 2014-03-24 MEDICATIONS Unknown Medications RESULTS No Results PROCEDURES [...]
--- OUTSIDE RECORDS SUMMARY | 2020-03-30 07:13 | XMS REPORT ---
Author Author Devi TATE Organization [address] Address [address] [place] [address] Care Team Providers Care Rn Assessment Name Role Phone TARIQ TATE Unavailable PROBLEMS Type Condition ICD9-CM Code PQW95-OB Code Onset Dates Condition S tatus SNOMED Code Problem Hip bursitis, left M70.72 Active 8 1094093 Problem Osteoarthritis of both knees, unspecified osteoarthritis t ype M17.0 Active 317951666 Problem Arthralgia of right temporomandibular joint M26.62 Active 64701410 Problem Other depression F32.8 Active 354 03990 Problem Moderate episode of recurrent major depressive disorder F33.1 Active 487904997 Problem Psychophysiological insomnia F51.04 A ctive 706384593 Problem Hypothyroidism, unspecified type E03.9 Active 29718553 Problem Chronic obstructive pulmonary disease with acute exacerbat ion J44.1 Active 433508979 Problem Sciatic leg pain M54.30 Active 230 69292 Problem Chronic obstructive pulmonary disease with acute exacerbat ion J44.1 Active 615093404 Problem Chronic obstructive pulmonary disease, unspecified COPD ty pe J44.9 Active 34862423 Problem Hypothyroidism, unspecified type E03.9 Active 91434778 Problem Mixed hyperlipidemia E78.2 Active 616770455 Problem Mixed hyperlipidemia E78.2 Active 377758365 Problem Other chronic pain G89.29 Active 8 [id number] ALLERGIES No Information ENCOUNTERS Encounter Location Date Diagnosis [address] [place] [address] 0 3 Nov, [address] [place] [address] 0 2 Nov, 2019 [facility] [address] [id number] [place] [id number] Oct, Community acquired pneumonia, unspecifie d laterality J18.9 [facility] [address] [facility] [id number] [place] [address] [id number] Oct, Community acquired pneumonia, unspecified laterality J18.9 and Chronic obstructive pulmonary disease with acute exacerbation J44.[address] [id number] Oct, [address] [id number] Oct, [address] [id number] Oct, Hip bursitis, left M70.72 ; Pain in right shoulder M25.511 ; Other chronic pain G89.29 and Moderate episode of recurrent major depressive disorder F33.[address] [id number] Sep, Encounter for immunization Z23 [address] [id number] Sep, [address] [id number] Sep, Chronic obstructive pulmonary disease, unspecified COPD type J44.[address] [id number] Sep, Moderate episode of recurrent major depressive disorder F33.[address] [id number] Aug, Acute pain of right shoulder M25.511 and Injury of right rotator cuff, subsequent encounter S46.001D [address] [id number] Aug, [address] [id number] Aug, Moderate episode of recurrent major depressive disorder F33.1 and Chronic obstructive pulmonary disease, unspecified COPD type J44.9 [facility] [address] [id number] [facility] [place] [id number] Jul, Injury of right rotator cuff, subsequent encounter S46.001D ; Sciatic leg pain M54.30 and Acute pain of right shoulder M25.511 [facility] [place] [address] [id number] [place] [id number] Jul, [address] [id number] Jul, Community acquired pneumonia of left lower lobe of lung J18.[address] [id number] Jul, [address] [id number] Jul, Injury of right rotator cuff, subsequent encounter S46.001D [address], [place] [id number] Jul, [address] [id number] Jul, [address] [id number] Jul, Screening for thyroid disorder Z13.[address], [place] [id number] Jun, Right shoulder pain, unspecified chronic ity M25.511 and Injury of right shoulder, initial encounter S49.91XA [address] [id number] Jun, Right shoulder pain, unspecified chronicity M25.511 and Injury of right shoulder, initial encounter S49.91XA [address] [id number] Jun, Moderate episode of recurrent major depressive disorder F33.1 ; Chronic obstructive pulmonary disease, unspecified COPD type J44.9 ; Mixed hyperlipidemia E78.2 and Hypothyroidism, unspecified type E03.[address] [id number] Jun, Chronic obstructive pulmonary disease, unspecified COPD type J44.[address] [id number] May, Contusion of right knee, initial encounter S80.01XA [address] [id number] May, Moderate episode of recurrent major depressive disorder F33.1 ; Chronic obstructive pulmonary disease, unspecified COPD type J44.9 and Sciatic leg pain M54.30 [facility] [address] [id number] May, [facility] [address] [id number] Apr, Urinary frequency R35.0 [facility] [place] [address] [facility] [address] [id number] [place] [id number] Apr, [facility] [address] [id number] March, Contusion of right knee, initial encounter S80.01XA and Chronic obstructive pulmonary disease, unspecified COPD type J44.[address] [id number] March, Moderate episode of recurrent major depressive disorder F33.1 and Urinary frequency R35.[address] [id number] Feb, [facility] [address] [id number] Feb, Chronic obstructive pulmonary disease, unspecified COPD type J44.[address] [id number] Feb, Dysuria R30.[address] [id number] Feb, Moderate episode of recurrent major depressive disorder F33.1 [facility] [address] [id number] Jan, Moderate episode of recurrent major depressive disorder F33.1 ; Chronic obstructive pulmonary disease, unspecified COPD type J44.9 ; Psychophysiological insomnia F51.04 ; Sciatic leg pain M54.30 and Contusion of right knee, initial encounter S80.01XA [facility] [address] [id number] Dec, Chronic obstructive pulmonary disease, unspecified COPD type J44.[address] [id number] Nov, Chronic obstructive pulmonary disease, unspecified COPD type J44.9 [address] [id number] Nov, Contusion of right knee, initial encounter S80.01XA [facility] [address] [id number] Nov, Osteoarthritis of both knees, unspecified osteoarthritis type M17.0 ; Sciatic leg pain M54.30 and Moderate episode of recurrent major depressive disorder F33.1 [facility] [address] [id number] Oct, Psychophysiological insomnia F51.04 [facility] [address] [id number] Sep, [facility] [address] [id number] [place] [id number] Sep, [address] [id number] Sep, Psychophysiological insomnia F51.[address] [id number] Aug, Breast cancer screening Z12.[address] [id number] Aug, [facility] [address] [facility] [place] [address] Aug, [address] [id number] Jul, [address] [id number] Jul, Chronic obstructive pulmonary disease, unspecified COPD type J44.9 ; Osteoarthritis of both knees, unspecified osteoarthritis type M17.0 ; Moderate episode of recurrent major depressive disorder F33.1 and Sciatic leg pain M54.[address] [id number] Jun, Moderate episode of recurrent major depressive disorder F33.1 ; Sciatic leg pain M54.30 and Chronic obstructive pulmonary disease, unspecified COPD type J44.9 [facility] [address] [id number] Jun, [address] [id number] May, Sciatic leg pain M54.30 [place] [id number] [place] [address] [id number] May, Chronic obstructive pulmonary disease, unspecified COPD type J44.9 [facility] [place] [address] [id number] [place] [id number] May, [address] [id number] Apr, Moderate episode of recurrent major depressive disorder F33.1 ; Sciatic leg pain M54.30 and Chronic obstructive pulmonary disease, unspecified COPD type J44.[address] [id number] March, [address] [id number] Feb, Sciatic leg pain M54.30 [facility] [place] [address] [id number] [place] [id number] Feb, [address] [id number] Dec, Moderate episode of recurrent major depressive disorder F33.1 ; Sciatic leg pain M54.30 ; Chronic obstructive pulmonary disease, unspecified COPD type J44.9 and Screening for thyroid disorder Z13.[address] [id number] Dec, Chronic obstructive pulmonary disease, unspecified COPD type J44.[address] [id number] Nov, Sciatic leg pain M54.30 [facility] [place] [address] [id number] [place] [id number] Oct, [address] [id number] Oct, Acute pain of right shoulder M25.[address] [id number] Oct, Chronic obstructive pulmonary disease, unspecified COPD type J44.[address] [id number] Oct, [place] [id number] [place] [address] [id number] Sep, Chronic obstructive pulmonary disease, unspecified COPD type J44.9 and Sciatic leg pain M54.[address] [id number] Aug, Moderate episode of recurrent major depressive disorder F33.1 and Chronic obstructive pulmonary disease, unspecified COPD type J44.9 [place] [address] [facility] [address] [id number] [place] [id number] Aug, Moderate episode of recurrent major depr essive disorder F33.[address] [id number] Jul, Other depression F32.8 and Chronic obstructive pulmonary disease, unspecified COPD type J44.[address] [id number] Jul, Moderate episode of recurrent major depressive disorder F33.1 [place] [address] [facility] [address] [id number] [place] [id number] Jun, [address] [id number] Jun, Moderate episode of recurrent major depressive disorder F33.[address] [id number] Jun, Moderate episode of recurrent major depressive disorder F33.[address] [id number] Jun, [address] [id number] Jun, Sciatic leg pain M54.[address] [id number] Jun, [address] [id number] May, Screening for thyroid disorder Z13.29 and Screening for lipid disorders Z13.[address] [id number] May, Other depression F32.[address] [id number] Apr, Sciatic leg pain M54.[address] [id number] Apr, Screening for lipid disorders Z13.220 ; Screening for thyroid disorder Z13.29 and Chronic obstructive pulmonary disease, unspecified COPD type J44.[address] [id number] Apr, Screening for lipid disorders Z13.220 ; Screening for thyroid disorder Z13.29 and Chronic obstructive pulmonary disease, unspecified COPD type J44.[address] [id number] Apr, [address] [id number] Apr, Chronic obstructive pulmonary disease, unspecified COPD type J44.[address] [id number] [address] March, [address] [id number] March, Sciatic leg pain M54.30 and Other depression F32.[address] [id number] March, [address] [id number] Jan, Other depression F32.8 and Sciatic leg pain M54.[address] [id number] Jan, Sciatic leg pain M54.[address] [id number] Dec, Other depression F32.[address] [id number] Dec, Chronic obstructive pulmonary disease, unspecified COPD type J44.[address] [id number] Nov, [address] [id number] Oct, Other depression F32.8 and Chronic obstructive pulmonary disease, unspecified COPD type J44.9 [facility] [address] [id number] Aug, [facility] [address] [id number] Aug, Other depression F32.8 ; Arthralgia of right temporomandibular joint M26.62 and Encounter for immunization Z23 [facility] [address] [id number] Aug, Encounter for well woman exam Z01.419 [facility] [address] [id number] Jul, Other depression F32.8 and Arthralgia of right temporomandibular joint M26.62 [facility] [address] [id number] Jun, [facility] [place] [id number] [place] [address] Jun, [facility] [address] [id number] Jun, [facility] [address] [id number] Jun, Other depression F32.8 and Urinary tract infection without hematuria, site unspecified N39.0 [facility] [address] [id number] Apr, [facility] [address] [id number] Apr, Dysuria R30.0 [facility] [address] [facility] [place] [address] March, [facility] [address] [id number] March, Urinary tract infection, site unspecified N39.0 [facility] [address] [id number] March, Urinary tract infection, site unspecified N39.0 [facility] [address] [id number] Feb, [address] [id number] Feb, Headache R51 and Ear pain H92.[address] [id number] Jan, Osteoarthritis of both knees, unspecified osteoarthritis type M17.0 and Hip bursitis, left M70.[address] [id number] Jan, [address] [id number] Dec, Unspecified arthropathy, site unspecified 716.90 and COPD (chronic obstructive pulmonary disease) [address] [id number] Dec, [address] [id number] Nov, [address] [id number] Oct, [address] [id number] Sep, [address] [id number] Sep, [address] [id number] Aug, [address] [id number] [place] [id number] Aug, [address] [place] [address] [id number] Aug, Urinary tract infection N39.0 and Shoulder strain, right, initial encounter S46.911A [address] [id number] Aug, Screening breast examination Z12.39 and Encounter for immunization Z23 [address] [id number] Aug, [facility] [place] 9170[address] [facility] [id number] [place] [id number] Aug, [address] [id number] Jul, [facility] [address] [id number] Jun, [facility] [address] [id number] Jun, Allergic rhinitis, cause unspecified 477.9 and Cough 786.2 [facility] [address] [id number] May, [facility] [address] [id number] May, [facility] [address] [id number] May, Visit for suture removal V58.32 [facility] [address] [id number] May, Dog bite 879.[address] [id number] Apr, Rib pain on right side 786.50 [facility] [address] [id number] Apr, [facility] [address] [id number] Apr, Allergic rhinitis, cause unspecified 477.9 and Cough 786.2 [facility] [address] [id number] March, [facility] [address] [id number] March, [facility] [address] [id number] March, [facility] [address] [id number] March, [facility] [address] [id number] March, Cough 786.2 and Shortness of breath 786.05 [facility] [address] [id number] March, [facility] [address] [id number] March, Cough 786.2 ; COPD (chronic obstructive pulmonary disease) 496 and Allergic rhinitis, cause unspecified 477.9 [facility] [place] [address] [id number] [id number] Feb, Allergic rhinitis, cause unspecified 477.9 ; Cough 786.2 and COPD (chronic obstructive pulmonary disease) 496 [facility] [address] [place] [address] [id number] [place] [address] 14 Feb, 2015 [facility] [address] [address] Feb, [facility] [address] [address] Jan, [facility] [address] [address] Jan, [facility] [address] [address] Jan, [facility] [address] [id number] Jan, [facility] [address] [address] Jan, [facility] [address] [id number] Dec, [facility] [address] [place] [place] [address] Dec, [facility] [address] [id number] [id number] Dec, [facility] [address] [address] [place] [address] Dec, [facility] [place] [address] [place] [id number] [place] [address] [id number] Dec, [facility] [address] [address] Dec, [facility] [address] [address] Dec, [facility] [place] [address] [id number] Nov, [facility] [id number] [place] [address] Nov, [facility] [address] [facility] [place] [address] Nov, [facility] [address] [place] [id number] [id number] Nov, [facility] [address] [place] [address] Nov, [facility] [address] [place] [id number] [id number] Oct, [facility] [address] [id number] [place] [address] Oct, [facility] [id number] [place] [address] [id number] Sep, [facility] [id number] [place] [address] Sep, [facility] [place] [id number] [place] [address] [id number] Sep, [facility] [id number] [place] [address] Sep, [facility] [address] [id number] [id number] Aug, [facility] [id number] [place] [address] Aug, [facility] [place] [address] [id number] [place] [address] [id number] Aug, [facility] [id number] [place] [address] Aug, [facility] [address] [address] Jul, [facility] [address] [id number] [address] Jul, [facility] [address] [id number] [place] [address] [id number] Jul, [facility] [address] [id number] Jul, [facility] [address] [facility] [place] [address] Jul, [facility] [address] [facility] [place] [address] Jul, [facility] [address] [facility] [place] [address] Jul, [facility] [address] [facility] [place] [address] Jul, [facility] [address] [facility]07757[facility] [id number] Jun, [facility] [id number] [place] [address] Jun, [facility] [address] [facility] [place] [address] Jun, [facility] [address] [id number] [id number] Jun, [facility] [address] [facility] [place] [address] Jun, [facility] [address] [id number] [id number] Jun, [facility] [address] [facility] [place] [address] Jun, [facility] [address] [id number] [id number] Apr, [facility] [address] [facility] [place] [address] Apr, [facility] 120 [facility]07757[place] [id number] Apr, [facility] [address] [facility] [place] [address] Apr, [facility] [address] [facility]07757[place] [id number] Apr, [facility] [address] [facility] [place] [address] Apr, [facility] [address] [facility] [place] [address] March, [facility] [id number] [place] [address] March, [facility] [address] [place] [address] [id number] [id number] March, [facility] [address] [place] [address] [id number] [id number] Feb, [facility] [id number] [place] [address] Feb, [facility] [address] [place] [id number] [id number] Jan, [facility] [id number] [place] [address] Jan, [facility] [address] [id number] [id number] Dec, [facility] [id number] [place] [address] Dec, [facility] [address] [place] [id number] [id number] Dec, [facility] [id number] [place] [address] Dec, [facility] [id number] [place] [address] Dec, [facility] [id number] [place] [address] Dec, [facility] [address] [place] [id number] [id number] Nov, [facility] [id number] [place] [address] Nov, [facility] [address] [id number] [id number] Nov, [facility] [id number] [place] [address] Nov, [facility] [address] [place] [id number] [id number] Nov, [facility] [place] [facility] [id number] [place] [address] Nov, [facility] [address] [place] [id number] [id number] Oct, [facility] [id number] [place] [address] Oct, [facility] [id number] [place] [address] Oct, [facility] 120 [facility]07757[facility] [id number] Oct, [facility] [id number] [place] [address] Sep, [facility] [address] [facility] [place] [address] Sep, [facility] [id number] [id number] Sep, [facility] [id number] [place] [address] Sep, [facility] [id number] [id number] Aug, [facility] [id number] [place] [address] Aug, [facility] [address] [id number] [id number] Jul, [facility] [id number] 885384692 Jul, [facility] 120 [facility]07757[facility] [id number] Jun, [facility] [id number] 365[address] May, [facility] [address] [id number] [id number] May, [facility] [id number] [place] [address] May, [facility] [address] [id number] [id number] Apr, [facility] [address] [facility] [address] Apr, [facility] [address] [place] [address] [id number] [id number] March, [facility] [address] [facility]07757[facility] [id number] Feb, [facility] [address] [place] [address] [id number] [id number] Feb, [facility] [address] [id number] [id number] Jan, [facility] [address] [id number] [id number] Jan, [facility] [address] [id number] [place] [id number] Dec, [facility] [address] [facility] [id number] Nov, [facility] [id number] [place] [address] Oct, [facility] [id number] [place] [address] Oct, [facility] [address] [id number] [id number] Oct, [facility] [address] [id number] [place] [address] Oct, [facility] [address] [id number] Oct, [facility] [address] [id number] [id number] Oct, [facility] [address] [id number] [id number] Sep, [facility] [id number] [place] [address] Sep, [facility] [id number] [place] [address], [place] [id number] Sep, [facility] [address] [address] Sep, [facility] [address] [id number] [id number] Aug, [facility] [address] [address] Aug, [facility] [address] [id number] [id number] Aug, [facility] [id number] [place] [id number] Jun, [facility] [address] [id number] Jun, [facility] [address] [id number] May, [facility] [address] [id number] Apr, [facility] [address] [id number] March, [facility] [address] [id number] Feb, [facility] [address] [id number] Jan, [address] [id number] Nov, [facility] [address] [id number] Sep, [facility] [address] [phone] Sep, [facility] [address] [id number] Aug, [facility] [address] [phone] Apr, [facility] [address] [phone] March, IMMUNIZATIONS No Known Immunizations SOCIAL HISTORY [...]
--- OUTSIDE RECORDS SUMMARY | 2020-03-30 07:13 | XMS REPORT ---
Author Author Devi TATE Organization [address] Address [address] [place] [address] Care Team Providers Care Supervisor Cured Meats Name Role Phone TARIQ TATE Unavailable PROBLEMS Type Condition ICD9-CM Code MKW67-AT Code Onset Dates Condition S tatus SNOMED Code Problem Osteoarthritis of both knees, unspecified osteoarthritis t ype M17.0 Active 820442089 Problem Other depression F32.8 Active 354 82340 Problem Hip bursitis, left M70.72 Active 8 4433554 Problem Chronic obstructive pulmonary disease, unspecified COPD ty pe J44.9 Active 82789080 Problem Arthralgia of right temporomandibular joint M26.62 Active 84053265 Problem Psychophysiological insomnia F51.04 A ctive 532642937 Problem Hypothyroidism, unspecified type E03.9 Active 65252524 Problem Hypothyroidism, unspecified type E03.9 Active 43558641 Problem Chronic obstructive pulmonary disease with acute exacerbat ion J44.1 Active 842445211 Problem Moderate episode of recurrent major depressive disorder F33.1 Active 604978953 Problem Seasonal allergic rhinitis, unspecified trigger J3 0.2 Active 176069288 Problem Sciatic leg pain M54.30 Active 230 71079 Problem Mixed hyperlipidemia E78.2 Active 638252017 Problem Mixed hyperlipidemia E78.2 Active 779871693 Problem Other chronic pain G89.29 Active 8 3004333 Problem Chronic obstructive pulmonary disease with acute exacerbat ion J44.1 Active 819092290 ALLERGIES No Information ENCOUNTERS Encounter Location Date Diagnosis [address] [address] 2 5 Dec, 2019 Seasonal allergic rhinitis, unspecified trigger J30.[address] [address] 1 8 Dec, 2019 Moderate episode of recurrent major depressive disorder F33.[address] [address] 1 7 Dec, 2019 Chronic obstructive pulmonary disease, unspecified COPD type J44.9 and Cough R05 [address] [address] 1 0 Dec, 2019 Chronic obstructive pulmonary disease with acute exacerbation J44.1 and Chronic obstructive pulmonary disease, unspecified COPD type J44.[address] [place] [address] 0 3 Nov, [address] [address] 0 2 Nov, 2019 [facility] [place] [facility] [place] [id number] Oct, Community acquired pneumonia, unspecifie d laterality J18.[address] [id number] Oct, Community acquired pneumonia, unspecified laterality J18.9 and Chronic obstructive pulmonary disease with acute exacerbation J44.[address] [id number] Oct, [address] [id number] Oct, [address] [id number] Oct, Hip bursitis, left M70.72 ; Pain in right shoulder M25.511 ; Other chronic pain G89.29 and Moderate episode of recurrent major depressive disorder F33.[address] [id number] Sep, Encounter for immunization Z23 [address] [id number] Sep, [address] [id number] Sep, Chronic obstructive pulmonary disease, unspecified COPD type J44.[address] [id number] Sep, Moderate episode of recurrent major depressive disorder F33.[address] [id number] Aug, Acute pain of right shoulder M25.511 and Injury of right rotator cuff, subsequent encounter S46.001D [address] [id number] Aug, [address] [id number] Aug, Moderate episode of recurrent major depressive disorder F33.1 and Chronic obstructive pulmonary disease, unspecified COPD type J44.9 [facility] [place] [address] [id number] [place] [address] Jul, Injury of right rotator cuff, subsequent encounter S46.001D ; Sciatic leg pain M54.30 and Acute pain of right shoulder M25.511 [facility] [address] [id number] [place] [address] Jul, [address] [id number] Jul, Community acquired pneumonia of left lower lobe of lung J18.1 [facility] [address] [id number] [place] [address] Jul, [address] [id number] Jul, Injury of right rotator cuff, subsequent encounter S46.001D [facility] [place] [address] [facility] [address] [id number] [place] [address] Jul, [address] [id number] Jul, [address] [id number] Jul, Screening for thyroid disorder Z13.29 [facility] [place] [address] [id number] [place] [address] Jun, Right shoulder pain, unspecified chronic ity M25.511 and Injury of right shoulder, initial encounter S49.91XA [address] [id number] Jun, Right shoulder pain, unspecified chronicity M25.511 and Injury of right shoulder, initial encounter S49.91XA [address] [id number] Jun, Moderate episode of recurrent major depressive disorder F33.1 ; Chronic obstructive pulmonary disease, unspecified COPD type J44.9 ; Mixed hyperlipidemia E78.2 and Hypothyroidism, unspecified type E03.[address] [id number] Jun, Chronic obstructive pulmonary disease, unspecified COPD type J44.[address] [id number] May, Contusion of right knee, initial encounter S80.01XA [address] [id number] May, Moderate episode of recurrent major depressive disorder F33.1 ; Chronic obstructive pulmonary disease, unspecified COPD type J44.9 and Sciatic leg pain M54.[address] [id number] May, [address] [id number] Apr, Urinary frequency R35.0 [place] [address] [facility] [place] [address] Apr, [address] [id number] March, Contusion of right knee, initial encounter S80.01XA and Chronic obstructive pulmonary disease, unspecified COPD type J44.[address] [id number] March, Moderate episode of recurrent major depressive disorder F33.1 and Urinary frequency R35.[address] [id number] Feb, [address] [id number] Feb, Chronic obstructive pulmonary disease, unspecified COPD type J44.[address] [id number] Feb, Dysuria R30.[address] [id number] Feb, Moderate episode of recurrent major depressive disorder F33.[address] [id number] Jan, Moderate episode of recurrent major depressive disorder F33.1 ; Chronic obstructive pulmonary disease, unspecified COPD type J44.9 ; Psychophysiological insomnia F51.04 ; Sciatic leg pain M54.30 and Contusion of right knee, initial encounter S80.01XA [address] [id number] Dec, Chronic obstructive pulmonary disease, unspecified COPD type J44.[address] [id number] Nov, Chronic obstructive pulmonary disease, unspecified COPD type J44.[address] [id number] Nov, Contusion of right knee, initial encounter S80.01XA [address] [id number] Nov, Osteoarthritis of both knees, unspecified osteoarthritis type M17.0 ; Sciatic leg pain M54.30 and Moderate episode of recurrent major depressive disorder F33.[address] [id number] Oct, Psychophysiological insomnia F51.04 [place] [id number] [place] [id number] Sep, [address] [id number] [place] [id number] Sep, [address] [place] [address] [id number] Sep, Psychophysiological insomnia F51.[address] [id number] Aug, Breast cancer screening Z12.[address] [id number] Aug, [facility] [address] [facility] [place] [address] Aug, [address] [id number] Jul, [address] [id number] Jul, Chronic obstructive pulmonary disease, unspecified COPD type J44.9 ; Osteoarthritis of both knees, unspecified osteoarthritis type M17.0 ; Moderate episode of recurrent major depressive disorder F33.1 and Sciatic leg pain M54.[address] [id number] Jun, Moderate episode of recurrent major depressive disorder F33.1 ; Sciatic leg pain M54.30 and Chronic obstructive pulmonary disease, unspecified COPD type J44.[address] [id number] Jun, [address] [id number] May, Sciatic leg pain M54.[address] [id number] May, Chronic obstructive pulmonary disease, unspecified COPD type J44.9 [facility] [address] [id number] [place] [address] May, [address] [id number] Apr, Moderate episode of recurrent major depressive disorder F33.1 ; Sciatic leg pain M54.30 and Chronic obstructive pulmonary disease, unspecified COPD type J44.[address] [id number] March, [address] [id number] Feb, Sciatic leg pain M54.30 [facility] [place] [address] [id number] [place] [address] Feb, [address] [id number] Dec, Moderate episode of recurrent major depressive disorder F33.1 ; Sciatic leg pain M54.30 ; Chronic obstructive pulmonary disease, unspecified COPD type J44.9 and Screening for thyroid disorder Z13.[address] [id number] [place] [address] Dec, Chronic obstructive pulmonary disease, unspecified COPD type J44.9 [facility] [address] [id number] Nov, Sciatic leg pain M54.30 [facility] [address] [id number] [place] [address] Oct, [facility] [address] [id number] Oct, Acute pain of right shoulder M25.511 [facility] [address], [place] [address] Oct, Chronic obstructive pulmonary disease, unspecified COPD type J44.9 [facility] [address], [place] [address] Oct, [facility] [address], [place] [address] Sep, Chronic obstructive pulmonary disease, unspecified COPD type J44.9 and Sciatic leg pain M54.30 [facility] [address] [id number] Aug, Moderate episode of recurrent major depressive disorder F33.1 and Chronic obstructive pulmonary disease, unspecified COPD type J44.9 [facility] [address] [facility]52[facility] [place] [address] Aug, Moderate episode of recurrent major depr essive disorder F33.1 [facility] [address] [id number] Jul, Other depression F32.8 and Chronic obstructive pulmonary disease, unspecified COPD type J44.9 [facility] [address] [id number] Jul, Moderate episode of recurrent major depressive disorder F33.1 [facility] [address] [id number] [place] [address] Jun, [facility] [address] [id number] Jun, Moderate episode of recurrent major depressive disorder F33.1 [facility] [address] [address] Jun, Moderate episode of recurrent major depressive disorder F33.[address] [id number] Jun, [address] [id number] Jun, Sciatic leg pain M54.30 [place] [id number] [place] [address] [id number] Jun, [address] [id number] May, Screening for thyroid disorder Z13.29 and Screening for lipid disorders Z13.[address] [id number] May, Other depression F32.8 [place] [id number] [place] [address] [id number] Apr, Sciatic leg pain M54.[address] [id number] Apr, Screening for lipid disorders Z13.220 ; Screening for thyroid disorder Z13.29 and Chronic obstructive pulmonary disease, unspecified COPD type J44.[address] [id number] Apr, Screening for lipid disorders Z13.220 ; Screening for thyroid disorder Z13.29 and Chronic obstructive pulmonary disease, unspecified COPD type J44.9 [address] [address] Apr, [address] [id number] Apr, Chronic obstructive pulmonary disease, unspecified COPD type J44.9 [facility] [place] [id number] [address] March, [address] [address] March, Sciatic leg pain M54.30 and Other depression F32.8 [place] [id number] [place] [address] [id number] March, [address] [id number] Jan, Other depression F32.8 and Sciatic leg pain M54.[address] [id number] 09 Jan, 2017 Sciatic leg pain M54.[address] [id number] Dec, Other depression F32.[address] [id number] Dec, Chronic obstructive pulmonary disease, unspecified COPD type J44.[address] [id number] Nov, [address] [id number] Oct, Other depression F32.8 and Chronic obstructive pulmonary disease, unspecified COPD type J44.[address] [id number] Aug, [address] [id number] Aug, Other depression F32.8 ; Arthralgia of right temporomandibular joint M26.62 and Encounter for immunization Z23 [address] [id number] Aug, Encounter for well woman exam Z01.[address] [id number] Jul, Other depression F32.8 and Arthralgia of right temporomandibular joint M26.[address] [id number] Jun, [facility] [id number] [address] Jun, [address] [id number] Jun, [address] [id number] Jun, Other depression F32.8 and Urinary tract infection without hematuria, site unspecified N39.0 [facility] [place] [address] [place] [id number] [place] [id number] Apr, [address] [id number] Apr, Dysuria R30.0 [facility] [address] [facility] [place] [address] March, [facility] [address] [id number] March, Urinary tract infection, site unspecified N39.0 [facility] [address] [id number] March, Urinary tract infection, site unspecified N39.[address] [id number] Feb, [address] [id number] Feb, Headache R51 and Ear pain H92.[address] [id number] Jan, Osteoarthritis of both knees, unspecified osteoarthritis type M17.0 and Hip bursitis, left M70.[address] [id number] Jan, [place] [address] [id number] Dec, Unspecified arthropathy, site unspecified 716.90 and COPD (chronic obstructive pulmonary disease) [address] [id number] Dec, [address] [id number] Nov, [address] [id number] Oct, [facility] [address] [id number] Sep, [facility] [address] [id number] Sep, [address] [id number] Aug, [facility] [place] [address] [id number] [facility] [place] [id number] Aug, [address] [place] [address] [id number] Aug, Urinary tract infection N39.0 and Shoulder strain, right, initial encounter S46.911A [address] [id number] Aug, Screening breast examination Z12.39 and Encounter for immunization Z23 [address] [id number] Aug, [facility] [address] [facility] [id number] [facility] [place] [id number] Aug, [address] [id number] Jul, [address] [id number] Jun, [address] [id number] Jun, Allergic rhinitis, cause unspecified 477.9 and Cough 786.[address] [id number] May, [address] [id number] May, [address] [id number] May, Visit for suture removal V58.[address] [id number] May, Dog bite 879.[address] [id number] Apr, Rib pain on right side 786.[address] [id number] Apr, [address] [id number] Apr, Allergic rhinitis, cause unspecified 477.9 and Cough 786.2 [address] [address] March, [facility] [address] [place] [id number] [place] [address] [id number] March, [facility] [address] [place] [id number] [place] [address], [place] [id number] March, [facility] [place] [address] [place] [id number] [place] [address], [place] [id number] March, [address], [place] [address] March, Cough 786.2 and Shortness of breath 786.[address] [id number] March, [address], [place] [address] March, Cough 786.2 ; COPD (chronic obstructive pulmonary disease) 496 and Allergic rhinitis, cause unspecified 477.[address] [id number] Feb, Allergic rhinitis, cause unspecified 477.9 ; Cough 786.2 and COPD (chronic obstructive pulmonary disease) 496 [facility] [address] [address] Feb, [facility] [address] [address] Feb, [facility] [address] [address] Jan, [facility] [address] [address] Jan, [facility] [address] [address] Jan, [address] [id number] Jan, [facility] [address] [address] Jan, [place] [id number] [place] [address] [id number] Dec, [facility] [address] [facility] [place] [address] Dec, 2014 [facility] [place] [address] [place] [id number] [id number] Dec, 2014 [facility] [address] [facility] [place] [address] Dec, 2014 [facility] [place] [address] [place] [id number] [id number] Dec, [facility] [address] [place] [id number] [place] [address] Dec, [facility] [address] [place] [id number] [place] [address] Dec, [facility] [place] [address] [id number] [id number] Nov, [facility] [address] [place] [id number] [place] [address] Nov, [facility] [address] [place] [id number] [place] [address] Nov, [facility] [place] [address] [place] [id number] [id number] Nov, [facility] [address] [place] [id number] [place] [address] Nov, [facility] [place] [address] [place] [id number] [id number] Oct, [facility] [address] [place] [id number] [place] [address] Oct, [facility] [place] [address] [id number] [address] Sep, [facility] [address] [place] [id number] [place] [address] Sep, [facility] [place] [address] [place] [id number] [address] Sep, [facility] [address] [place] [id number] [place] [address] Sep, [facility] [place] [address] [place] [id number] [address] Aug, [facility] [address] [facility] [place] [address] Aug, [facility] [place] [address] [facility]07757[facility] [address] Aug, [facility] [address] [facility] [place] [address] Aug, [facility] [address] [facility] [place] [address] Jul, [facility] [place] [address] [facility]07757[facility] [id number] Jul, [facility] [place] [address] [facility]757[facility] [address] Jul, [facility] [place] [address] [facility]07757[facility] [address] Jul, [facility] [address] [place] [id number] [place] [address] Jul, [facility] [address] [facility] [place] [address] Jul, [facility] [address] [facility] [place] [address] Jul, [facility] [address] [facility] [place] [address] Jul, [facility] [place] [address] [facility]07757[place] [id number] Jun, [facility] [address] [facility] [place] [address] Jun, [facility] [address] [id number] [place] [address] Jun, [facility] [place] [address] [facility]07757[place] [address] Jun, [facility] [address] [facility] [place] [address] Jun, [facility] [place] [address] [facility]07757[place] [id number] Jun, [facility] [address] [id number] [place] [address] Jun, [facility] [place] [address] [facility]07757[facility] [address] Apr, [facility] [address] [id number] [place] [address] Apr, [facility] [place] [address] [facility]07757[facility] [address] Apr, [facility] [address] [id number] [place] [address] Apr, [facility] [place] [address] [place] [id number] [address] Apr, [facility] [address] [place] [id number] [place] [address] Apr, [facility] [address] [place] [id number] [place] [address] March, [facility] [address] [place] [id number] [place] [address] March, [facility] [place] [address] [id number] [id number] March, [facility] [place] [address] [place] [id number] [address] Feb, [facility] [address] [place] [id number] [place] [address] Feb, [facility] [place] [address] [facility]07757[place] [address] Jan, [facility] [address] [place] [id number] [place] [address] Jan, [facility] [place] [address] [place] [id number] [id number] Dec, [facility] [address] [place] [id number] [place] [address] Dec, [facility] [place] [address] [facility]07757[place] [id number] Dec, [facility] [address] [place] [id number] [place] [address] Dec, [facility] [address] [id number] [place] [address] Dec, [facility] [address] [id number] [place] [address] Dec, [facility] [place] [address] [facility] [address] Nov, [facility] [address] [place] [id number] [place] [address] Nov, [facility] [place] [address] [place] [id number] [address] Nov, [facility] [address] [place] [id number] [place] [address] Nov, [facility] [place] [address] [place] [id number] [address] Nov, [facility] [address] [place] [id number] [place] [address] Nov, [facility] [place] [address] [place] [id number] 843807283 Oct, [facility] [address] [id number] [place] [address] Oct, [facility] [address] [id number] [place] [address] Oct, [facility] [place] [address] [place] [id number] [id number] Oct, [facility] [address] [id number] [place] [address] Sep, [facility] [address] [id number] [place] [address] Sep, [facility] [place] [address] [place] [id number] [address] Sep, [facility] [address] [id number] [place] [address] Sep, [facility] [place] [address] [facility]07757[place] [address] Aug, [facility] [address] [place] [id number] [place] [address] Aug, [facility] [place] [address] [place] [id number] [address] Jul, [facility] [place] [address] [place] [id number] [address] Jul, [facility] [place] [address] [place] [id number] [place] [address], [place] [id number] Jun, [facility] [place] [address], [place] [address] May, [facility] [place] [address] [place] [id number] [place] [id number] May, [facility] [address] [id number] [place] [address] May, [facility] [address] [id number] [place] [id number] Apr, [facility] [id number] [place] [address], [place] [id number] Apr, [facility] [id number] [place] [address], [place] [id number] March, [facility] [address] [id number] [place] [id number] Feb, [facility] [id number] [place] [address], [place] [id number] Feb, [facility] [address] [id number] [place] [id number] Jan, [facility] [id number] [place] [address], [place] [id number] Jan, [facility] [id number] [place] [address], [place] [id number] Dec, [facility] [address] [id number] [place] [address], [place] [id number] Nov, [facility] [id number] [place] [address] Oct, [facility] [address] [id number] [place] [address] Oct, [facility] [id number] [place] [address], [place] [id number] Oct, [facility] [address] [id number] [place] [address] Oct, [facility] [id number] [place] [address] Oct, [facility] [address] [id number] [place] [id number] Oct, [facility] [id number] [place] [address], [place] [id number] Sep, [facility] [id number] [place] [address] Sep, [facility] [address] [id number] [place] [id number] Sep, [facility] [id number] [place] [address] Sep, [facility] [id number] [place] [address], [place] [id number] Aug, [facility] [id number] [place] [address] Aug, [facility] [address] [id number] [id number] Aug, [facility] [address] [id number] Jun, [facility] [address] [id number] [place] [id number] Jun, [facility] [id number] [place] [address] May, [facility] [id number] [place] [id number] Apr, [facility] [address] [id number] [id number] March, [facility] [id number] [place] [address], [place] [id number] Feb, [facility] [id number] [place] [address], [place] [id number] Jan, [facility] [id number] [place] [address], [place] [id number] Nov, [facility] [address] [id number] [place] [address] Sep, [facility] [address] [id number] [place] [address] Sep, [facility] [address] [id number] [place] [address] Aug, [facility] [address] [id number] [place] [address] Apr, [facility] [address] [id number] [place] [address] March, IMMUNIZATIONS No Known Immunizations SOCIAL HISTORY Never Assessed REASON FOR VISIT PLAN OF CARE VITAL SIGNS MEDICATIONS No [...]
--- OUTSIDE RECORDS SUMMARY | 2020-03-30 07:14 | XMS REPORT ---
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 Name Role Phone TARIQ TATE Unavailable PROBLEMS Type Condition ICD9-CM Code [id number] Code Onset Dates Condition S tatus SNOMED Code Problem Hip bursitis, left M70.72 Active 8 5643926 Problem Osteoarthritis of both knees, unspecified osteoarthritis t ype M17.0 Active 541469306 Problem Arthralgia of right temporomandibular joint M26.62 Active 65440835 Problem Other depression F32.8 Active 354 81465 Problem Moderate episode of recurrent major depressive disorder F33.1 Active 783634507 Problem Psychophysiological insomnia F51.04 A ctive 557072745 Problem Hypothyroidism, unspecified type E03.9 Active 66319509 Problem Chronic obstructive pulmonary disease with acute exacerbat ion J44.1 Active 569020322 Problem Sciatic leg pain M54.30 Active 230 29682 Problem Chronic obstructive pulmonary disease with acute exacerbat ion J44.1 Active 761040515 Problem Chronic obstructive pulmonary disease, unspecified COPD ty pe J44.9 Active 69280219 Problem Hypothyroidism, unspecified type E03.9 Active 49823467 Problem Mixed hyperlipidemia E78.2 Active 097394633 Problem Mixed hyperlipidemia E78.2 Active 393594168 Problem Other chronic pain G89.29 Active 8 [id number] ALLERGIES No Information ENCOUNTERS Encounter Location Date Diagnosis [address] [place] [address] 0 3 Nov, [address] [place] [address] 0 2 Nov, 2019 [facility] [address] [id number] [place], [place] [id number] Oct, Community acquired pneumonia, unspecifie d laterality J18.9 [facility] 120 [facility] [id number] [place] [address] [id number] Oct, Community acquired pneumonia, unspecified laterality J18.9 and Chronic obstructive pulmonary disease with acute exacerbation J44.[address] [id number] Oct, [address] [id number] Oct, [address] [id number] Oct, Hip bursitis, left M70.72 ; Pain in right shoulder M25.511 ; Other chronic pain G89.29 and Moderate episode of recurrent major depressive disorder F33.[address] [id number] Sep, Encounter for immunization Z23 [address] [id number] Sep, [address] [id number] Sep, Chronic obstructive pulmonary disease, unspecified COPD type J44.[address] [id number] Sep, Moderate episode of recurrent major depressive disorder F33.[address] [id number] Aug, Acute pain of right shoulder M25.511 and Injury of right rotator cuff, subsequent encounter S46.001D [address] [id number] Aug, [address] [id number] Aug, Moderate episode of recurrent major depressive disorder F33.1 and Chronic obstructive pulmonary disease, unspecified COPD type J44.9 [facility] [address] [id number] [facility] [place] [place] [id number] Jul, Injury of right rotator cuff, subsequent encounter S46.001D ; Sciatic leg pain M54.30 and Acute pain of right shoulder M25.511 [facility] [address] [id number] [place] [id number] Jul, [address] [id number] Jul, Community acquired pneumonia of left lower lobe of lung J18.[address] [id number] Jul, [address] [id number] Jul, Injury of right rotator cuff, subsequent encounter S46.001D [address], [place] [id number] Jul, [address] [id number] Jul, [address] [id number] Jul, Screening for thyroid disorder Z13.[address], [place] [id number] Jun, Right shoulder pain, unspecified chronic ity M25.511 and Injury of right shoulder, initial encounter S49.91XA [address] [id number] Jun, Right shoulder pain, unspecified chronicity M25.511 and Injury of right shoulder, initial encounter S49.91XA [address] [id number] Jun, Moderate episode of recurrent major depressive disorder F33.1 ; Chronic obstructive pulmonary disease, unspecified COPD type J44.9 ; Mixed hyperlipidemia E78.2 and Hypothyroidism, unspecified type E03.[address] [id number] Jun, Chronic obstructive pulmonary disease, unspecified COPD type J44.[address] [id number] May, Contusion of right knee, initial encounter S80.01XA [address] [id number] May, Moderate episode of recurrent major depressive disorder F33.1 ; Chronic obstructive pulmonary disease, unspecified COPD type J44.9 and Sciatic leg pain M54.30 [facility] [address] [id number] May, [facility] [address] [id number] Apr, Urinary frequency R35.0 [facility] [address] [facility] AV [id number] [place], [place] [id number] Apr, [facility] [address] [id number] March, Contusion of right knee, initial encounter S80.01XA and Chronic obstructive pulmonary disease, unspecified COPD type J44.[address] [id number] March, Moderate episode of recurrent major depressive disorder F33.1 and Urinary frequency R35.[address] [id number] Feb, [facility] [address] [id number] Feb, Chronic obstructive pulmonary disease, unspecified COPD type J44.[address] [id number] Feb, Dysuria R30.[address] [id number] Feb, Moderate episode of recurrent major depressive disorder F33.1 [facility] [address] [id number] Jan, Moderate episode of recurrent major depressive disorder F33.1 ; Chronic obstructive pulmonary disease, unspecified COPD type J44.9 ; Psychophysiological insomnia F51.04 ; Sciatic leg pain M54.30 and Contusion of right knee, initial encounter S80.01XA [facility] [address] [id number] Dec, Chronic obstructive pulmonary disease, unspecified COPD type J44.[address] [id number] Nov, Chronic obstructive pulmonary disease, unspecified COPD type J44.9 [address] [address] Nov, Contusion of right knee, initial encounter S80.01XA [facility] [address] [id number] Nov, Osteoarthritis of both knees, unspecified osteoarthritis type M17.0 ; Sciatic leg pain M54.30 and Moderate episode of recurrent major depressive disorder F33.1 [facility] [address] [id number] Oct, Psychophysiological insomnia F51.04 [facility] [address] [id number] Sep, [facility] [address] [id number] [place] [id number] Sep, [address] [id number] Sep, Psychophysiological insomnia F51.[address] [id number] Aug, Breast cancer screening Z12.[address] [id number] Aug, [facility] [place] [address] [facility] [place] [address] Aug, [address] [id number] Jul, [address] [id number] Jul, Chronic obstructive pulmonary disease, unspecified COPD type J44.9 ; Osteoarthritis of both knees, unspecified osteoarthritis type M17.0 ; Moderate episode of recurrent major depressive disorder F33.1 and Sciatic leg pain M54.[address] [id number] Jun, Moderate episode of recurrent major depressive disorder F33.1 ; Sciatic leg pain M54.30 and Chronic obstructive pulmonary disease, unspecified COPD type J44.9 [facility] [address] [id number] Jun, [address] [id number] May, Sciatic leg pain M54.30 [place] [id number] [place] [address] [id number] May, Chronic obstructive pulmonary disease, unspecified COPD type J44.9 [facility] [address] [id number] [place] [id number] May, [address] [id number] Apr, Moderate episode of recurrent major depressive disorder F33.1 ; Sciatic leg pain M54.30 and Chronic obstructive pulmonary disease, unspecified COPD type J44.[address] [id number] March, [address] [id number] Feb, Sciatic leg pain M54.30 [facility] [address] [id number] [place] [id number] Feb, [address] [id number] Dec, Moderate episode of recurrent major depressive disorder F33.1 ; Sciatic leg pain M54.30 ; Chronic obstructive pulmonary disease, unspecified COPD type J44.9 and Screening for thyroid disorder Z13.[address] [id number] Dec, Chronic obstructive pulmonary disease, unspecified COPD type J44.[address] [id number] Nov, Sciatic leg pain M54.30 [facility] [address] [id number] [place] [id number] Oct, [address] [id number] Oct, Acute pain of right shoulder M25.[address] [id number] Oct, Chronic obstructive pulmonary disease, unspecified COPD type J44.[address] [id number] Oct, [place] [id number] [place] [address] [id number] Sep, Chronic obstructive pulmonary disease, unspecified COPD type J44.9 and Sciatic leg pain M54.[address] [id number] Aug, Moderate episode of recurrent major depressive disorder F33.1 and Chronic obstructive pulmonary disease, unspecified COPD type J44.9 [place] [address] [facility] [address] [id number] [place] [id number] Aug, Moderate episode of recurrent major depr essive disorder F33.[address] [id number] Jul, Other depression F32.8 and Chronic obstructive pulmonary disease, unspecified COPD type J44.[address] [id number] Jul, Moderate episode of recurrent major depressive disorder F33.1 [place] [address] [facility] [address] [id number] [place] [id number] Jun, [address] [id number] Jun, Moderate episode of recurrent major depressive disorder F33.[address] [id number] Jun, Moderate episode of recurrent major depressive disorder F33.[address] [id number] Jun, [address] [id number] Jun, Sciatic leg pain M54.[address] [id number] Jun, [address] [id number] May, Screening for thyroid disorder Z13.29 and Screening for lipid disorders Z13.[address] [id number] May, Other depression F32.[address] [id number] Apr, Sciatic leg pain M54.[address] [id number] Apr, Screening for lipid disorders Z13.220 ; Screening for thyroid disorder Z13.29 and Chronic obstructive pulmonary disease, unspecified COPD type J44.[address] [id number] Apr, Screening for lipid disorders Z13.220 ; Screening for thyroid disorder Z13.29 and Chronic obstructive pulmonary disease, unspecified COPD type J44.[address] [id number] Apr, [address] [id number] Apr, Chronic obstructive pulmonary disease, unspecified COPD type J44.[address] [id number] [place] [address] March, [address] [id number] March, Sciatic leg pain M54.30 and Other depression F32.[address] [id number] March, [address] [id number] Jan, Other depression F32.8 and Sciatic leg pain M54.[address] [id number] Jan, Sciatic leg pain M54.[address] [id number] Dec, Other depression F32.[address] [id number] Dec, Chronic obstructive pulmonary disease, unspecified COPD type J44.[address] [id number] Nov, [address] [id number] Oct, Other depression F32.8 and Chronic obstructive pulmonary disease, unspecified COPD type J44.9 [facility] [address] [id number] Aug, [facility] [address] [id number] Aug, Other depression F32.8 ; Arthralgia of right temporomandibular joint M26.62 and Encounter for immunization Z23 [facility] [address] [id number] Aug, Encounter for well woman exam Z01.419 [facility] [address] [id number] Jul, Other depression F32.8 and Arthralgia of right temporomandibular joint M26.62 [facility] [address] [id number] Jun, [facility] [place] [id number] [place] [address] Jun, [facility] [address] [id number] Jun, [facility] [address] [id number] Jun, Other depression F32.8 and Urinary tract infection without hematuria, site unspecified N39.0 [facility] [address] [id number] Apr, [facility] [address] [id number] Apr, Dysuria R30.0 [facility] [address] [facility] [place] [address] March, [facility] [address] [id number] March, Urinary tract infection, site unspecified N39.0 [facility] [address] [id number] March, Urinary tract infection, site unspecified N39.0 [facility] [address] [id number] Feb, [address] [id number] Feb, Headache R51 and Ear pain H92.[address] [id number] Jan, Osteoarthritis of both knees, unspecified osteoarthritis type M17.0 and Hip bursitis, left M70.[address] [id number] Jan, [address] [id number] Dec, Unspecified arthropathy, site unspecified 716.90 and COPD (chronic obstructive pulmonary disease) [address] [id number] Dec, [address] [id number] Nov, [address] [id number] Oct, [address] [id number] Sep, [address] [id number] Sep, [address] [id number] Aug, [address] [facility]IN[facility]71640P [place] [id number] Aug, [address] [place] [address] [id number] Aug, Urinary tract infection N39.0 and Shoulder strain, right, initial encounter S46.911A [address] [id number] Aug, Screening breast examination Z12.39 and Encounter for immunization Z23 [address] [id number] Aug, [facility] [place] 029[address] [facility] [id number] [place] [id number] Aug, [address] [id number] Jul, [facility] [address] [id number] Jun, [facility] [address] [id number] Jun, Allergic rhinitis, cause unspecified 477.9 and Cough 786.2 [facility] [address] [id number] May, [facility] [address] [id number] May, [facility] [address] [id number] May, Visit for suture removal V58.32 [facility] [address] [id number] May, Dog bite 879.[address] [id number] Apr, Rib pain on right side 786.50 [facility] [address] [id number] Apr, [facility] [address] [id number] Apr, Allergic rhinitis, cause unspecified 477.9 and Cough 786.2 [facility] [address] [id number] March, [facility] [address] [id number] March, [facility] [address] [id number] March, [facility] [address] [id number] March, [facility] [address] [id number] March, Cough 786.2 and Shortness of breath 786.05 [facility] [address] [id number] March, [facility] [address] [id number] March, Cough 786.2 ; COPD (chronic obstructive pulmonary disease) 496 and Allergic rhinitis, cause unspecified 477.9 [facility] [place] [address] [id number] [id number] Feb, Allergic rhinitis, cause unspecified 477.9 ; Cough 786.2 and COPD (chronic obstructive pulmonary disease) 496 [facility] [place] [id number] [place] [address] 14 Feb, 2015 [facility] [place] [address] [address] Feb, [facility] [place] [address] [address] Jan, [facility] [place] [address] [address] Jan, [facility] [place] [address] [address] Jan, [facility] [address] [id number] Jan, [facility] [place] [address] [address] Jan, [facility] [address] [id number] Dec, [facility] [place] [id number] [place] [address] Dec, [facility] [address] [id number] [id number] Dec, [facility] [place] [id number] [place] [address] Dec, [facility] [place] [address] [place] [id number] [place] [address] [id number] Dec, [facility] [place] [address] [address] Dec, [facility] [place] [address] [address] Dec, [facility] [address] [id number] Nov, [facility] [id number] [place] [address] Nov, [facility] [address] [facility] [place] [address] Nov, [facility] [address] [place] [id number] [place] [id number] Nov, [facility] [address] [place] [address] Nov, [facility] [address] [place] [id number] [id number] Oct, [facility] [address] [id number] [place] [address] Oct, [facility] [address] [place] [id number] [place] [address] [id number] Sep, [facility] [id number] [place] [address] Sep, [facility] [address] [place] [id number] [place] [address] [id number] Sep, [facility] [id number] [place] [address] Sep, [facility] [id number] [id number] Aug, [facility] [id number] [place] [address] Aug, [facility] [address] [address] [id number] [place] [address] [id number] Aug, [facility] [id number] [place] [address] Aug, [facility] [address] [address] Jul, [facility] [id number] [address] Jul, [facility] [address] [place] [id number] [place] [address] [id number] Jul, [facility] [address] [id number] Jul, [facility] [address] [facility] [place] [address] Jul, [facility] [address] [facility] [place] [address] Jul, [facility] [address] [id number] [place] [address] Jul, [facility] [address] [facility] [place] [address] Jul, [facility] [address] [facility] [address] [address]757[facility] [place] [id number] Jun, [facility] [id number] [place] [address] Jun, [facility] [address] [facility] [place] [address] Jun, [facility] [address] [id number] [id number] Jun, [facility] [address] [facility] [place] [address] Jun, [facility] [address] [address] [id number] [id number] Jun, [facility] [address] [facility] [place] [address] Jun, [facility] [id number] [id number] Apr, [facility] [address] [id number] [place] [address] Apr, [facility] 120 [facility]07757[place] [id number] Apr, [facility] [address] [id number] [place] [address] Apr, [facility] 120 [facility]07757[place] [id number] Apr, [facility] [address] [id number] [place] [address] Apr, [facility] [address] [id number] [place] [address] March, [facility] [id number] [place] [address] March, [facility] [address] [address] [id number] [id number] March, [facility] [address] [address] [id number] [address] Feb, [facility] [id number] [place] [address] Feb, [facility] [address] [place] [id number] [id number] Jan, [facility] [id number] [place] [address] Jan, [facility] [address] [place] [address] [id number] [id number] Dec, [facility] [id number] [place] [address] Dec, [facility] [address] [address] [id number] [address] Dec, [facility] [id number] [place] [address] Dec, [facility] [id number] [place] [address] Dec, [facility] [id number] [place] [address] Dec, [facility] [address] [id number] [id number] Nov, [facility] [id number] [place] [address] Nov, [facility] [address] [id number] [id number] Nov, [facility] [id number] [place] [address] Nov, [facility] [address] [id number] [id number] Nov, [facility] [place] [facility] [id number] [place] [address] Nov, [facility] [address] [id number] [id number] Oct, [facility] [id number] [place] [address] Oct, [facility] [id number] [place] [address] Oct, [facility] 120 [facility]07757[facility] [id number] Oct, [facility] [id number] [place] [address] Sep, [facility] [address] [id number] [place] [address] Sep, [facility] [address] [id number] [id number] Sep, [facility] [id number] [place] [address] Sep, [facility] [address] [id number] [id number] Aug, [facility] [id number] [place] [address] Aug, [facility] [address] [id number] [id number] Jul, [facility] [address] [id number] [id number] Jul, [facility] 120 [facility]07757[facility] [id number] Jun, [facility] [address] [id number] 5118[address]862 May, [facility] [address] [id number] [id number] May, [facility] [id number] [place] [address] May, [facility] [address] [id number] [id number] Apr, [facility] [address] W [facility] [place] [address] Apr, [facility] [address] [place] [id number] [id number] March, [facility] [address] [facility] [address] [address] [address] [id number] Feb, [facility] [address] [id number] [place] [id number] Feb, [facility] [address] [id number] [id number] Jan, [facility] [address] [id number] [place] [id number] Jan, [facility] [address] [id number] [place] [id number] Dec, [facility] [address] [facility] [id number] [place] [id number] Nov, [facility] [id number] [place] [address] Oct, [facility] [id number] [place] [address] Oct, [facility] [address] [id number] [id number] Oct, [facility] [address] [id number] [place] [address] Oct, [facility] [address] [address] Oct, [facility] [address] [id number] [id number] Oct, [facility] [address] [id number] [place] [id number] Sep, [facility] [id number] [place] [address] Sep, [facility] [id number] [place] [address], [place] [id number] Sep, [facility] [address] [id number] Sep, [facility] [address] [id number] [id number] Aug, [facility], [place], [facility] [address] [id number] Aug, [facility] [address] [id number] [id number] Aug, [facility] [id number] [place] [id number] Jun, [facility] [address] [id number] Jun, [facility], [place], [facility] [address] [id number] May, [facility] [address] [id number] Apr, [facility] [address] [id number] March, [facility] [address] [id number] Feb, [facility] [address] [id number] Jan, [address] [id number] Nov, [facility], [place], [facility] [address] [id number] Sep, [facility], [place], [facility] [address] [id number] Sep, [facility], [place], [facility] [address] [id number] Aug, [facility], [place], [facility] [address] [id number] Apr, [facility], [place], [facility] [address] [id number] March, IMMUNIZATIONS No Known Immunizations SOCIAL HISTORY [...]
--- OUTSIDE RECORDS SUMMARY | 2020-03-30 07:14 | XMS REPORT ---
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 Name Role Phone TARIQ TATE Unavailable PROBLEMS Type Condition ICD9-CM Code MDM41-RI Code Onset Dates Condition S tatus SNOMED Code Problem Hip bursitis, left M70.72 Active 8 6718340 Problem Osteoarthritis of both knees, unspecified osteoarthritis t ype M17.0 Active 077012345 Problem Arthralgia of right temporomandibular joint M26.62 Active 09229117 Problem Other depression F32.8 Active 354 23288 Problem Moderate episode of recurrent major depressive disorder F33.1 Active 359248931 Problem Psychophysiological insomnia F51.04 A ctive 315170672 Problem Hypothyroidism, unspecified type E03.9 Active 39946505 Problem Chronic obstructive pulmonary disease with acute exacerbat ion J44.1 Active 126951956 Problem Sciatic leg pain M54.30 Active 230 11390 Problem Chronic obstructive pulmonary disease with acute exacerbat ion J44.1 Active 262310703 Problem Chronic obstructive pulmonary disease, unspecified COPD ty pe J44.9 Active 74596583 Problem Hypothyroidism, unspecified type E03.9 Active 33656494 Problem Mixed hyperlipidemia E78.2 Active 705269613 Problem Mixed hyperlipidemia E78.2 Active 399068857 Problem Other chronic pain G89.29 Active 8 7740351 ALLERGIES No Information ENCOUNTERS Encounter Location Date Diagnosis [address] [place] [address] 0 3 Nov, [address] [place] [address] 0 2 Nov, 2019 [facility] [place] [address] [id number] [place] [id number] Oct, Community acquired pneumonia, unspecifie d laterality J18.9 [facility] [address] [facility] [id number] [place] [address] [id number] Oct, Community acquired pneumonia, unspecified laterality J18.9 and Chronic obstructive pulmonary disease with acute exacerbation J44.[address] [id number] Oct, [address] [id number] Oct, [address] [id number] Oct, Hip bursitis, left M70.72 ; Pain in right shoulder M25.511 ; Other chronic pain G89.29 and Moderate episode of recurrent major depressive disorder F33.[address] [id number] Sep, Encounter for immunization Z23 [address] [id number] Sep, [address] [id number] Sep, Chronic obstructive pulmonary disease, unspecified COPD type J44.[address] [id number] Sep, Moderate episode of recurrent major depressive disorder F33.[address] [id number] Aug, Acute pain of right shoulder M25.511 and Injury of right rotator cuff, subsequent encounter S46.001D [address] [id number] Aug, [address] [id number] Aug, Moderate episode of recurrent major depressive disorder F33.1 and Chronic obstructive pulmonary disease, unspecified COPD type J44.9 [facility] [address] [id number] [facility] [place] [id number] Jul, Injury of right rotator cuff, subsequent encounter S46.001D ; Sciatic leg pain M54.30 and Acute pain of right shoulder M25.511 [facility] [address] [id number] [place] [id number] Jul, [address] [id number] Jul, Community acquired pneumonia of left lower lobe of lung J18.[address] [id number] Jul, [address] [id number] Jul, Injury of right rotator cuff, subsequent encounter S46.001D [address], [place] [id number] Jul, [address] [id number] Jul, [address] [id number] Jul, Screening for thyroid disorder Z13.[address], [place] [id number] Jun, Right shoulder pain, unspecified chronic ity M25.511 and Injury of right shoulder, initial encounter S49.91XA [address] [id number] Jun, Right shoulder pain, unspecified chronicity M25.511 and Injury of right shoulder, initial encounter S49.91XA [address] [id number] Jun, Moderate episode of recurrent major depressive disorder F33.1 ; Chronic obstructive pulmonary disease, unspecified COPD type J44.9 ; Mixed hyperlipidemia E78.2 and Hypothyroidism, unspecified type E03.[address] [id number] Jun, Chronic obstructive pulmonary disease, unspecified COPD type J44.[address] [id number] May, Contusion of right knee, initial encounter S80.01XA [address] [id number] May, Moderate episode of recurrent major depressive disorder F33.1 ; Chronic obstructive pulmonary disease, unspecified COPD type J44.9 and Sciatic leg pain M54.30 [facility] [address] [id number] May, [facility] [address] [id number] Apr, Urinary frequency R35.0 [facility] [address] [facility] AV [id number] [place] [id number] Apr, [facility] [address] [id number] March, Contusion of right knee, initial encounter S80.01XA and Chronic obstructive pulmonary disease, unspecified COPD type J44.[address] [id number] March, Moderate episode of recurrent major depressive disorder F33.1 and Urinary frequency R35.[address] [id number] Feb, [facility] [address] [id number] Feb, Chronic obstructive pulmonary disease, unspecified COPD type J44.[address] [id number] Feb, Dysuria R30.[address] [id number] Feb, Moderate episode of recurrent major depressive disorder F33.1 [facility] [address] [id number] Jan, Moderate episode of recurrent major depressive disorder F33.1 ; Chronic obstructive pulmonary disease, unspecified COPD type J44.9 ; Psychophysiological insomnia F51.04 ; Sciatic leg pain M54.30 and Contusion of right knee, initial encounter S80.01XA [facility] [address] [id number] Dec, Chronic obstructive pulmonary disease, unspecified COPD type J44.[address] [id number] Nov, Chronic obstructive pulmonary disease, unspecified COPD type J44.9 [address] [address] Nov, Contusion of right knee, initial encounter S80.01XA [facility] [address] [id number] Nov, Osteoarthritis of both knees, unspecified osteoarthritis type M17.0 ; Sciatic leg pain M54.30 and Moderate episode of recurrent major depressive disorder F33.1 [facility] [address] [id number] Oct, Psychophysiological insomnia F51.04 [facility] [address] [id number] Sep, [facility] [place] [address] [id number] [place] [id number] Sep, [address] [id number] Sep, Psychophysiological insomnia F51.[address] [id number] Aug, Breast cancer screening Z12.[address] [id number] Aug, [facility] [address] [facility] [place] [address] Aug, [address] [id number] Jul, [address] [id number] Jul, Chronic obstructive pulmonary disease, unspecified COPD type J44.9 ; Osteoarthritis of both knees, unspecified osteoarthritis type M17.0 ; Moderate episode of recurrent major depressive disorder F33.1 and Sciatic leg pain M54.[address] [id number] Jun, Moderate episode of recurrent major depressive disorder F33.1 ; Sciatic leg pain M54.30 and Chronic obstructive pulmonary disease, unspecified COPD type J44.9 [facility] [address] [id number] Jun, [address] [id number] May, Sciatic leg pain M54.30 [place] [id number] [place] [address] [id number] May, Chronic obstructive pulmonary disease, unspecified COPD type J44.9 [facility] [address] [id number] [place] [id number] May, [address] [id number] Apr, Moderate episode of recurrent major depressive disorder F33.1 ; Sciatic leg pain M54.30 and Chronic obstructive pulmonary disease, unspecified COPD type J44.[address] [id number] March, [address] [id number] Feb, Sciatic leg pain M54.30 [facility] [address] [id number] [place] [id number] Feb, [address] [id number] Dec, Moderate episode of recurrent major depressive disorder F33.1 ; Sciatic leg pain M54.30 ; Chronic obstructive pulmonary disease, unspecified COPD type J44.9 and Screening for thyroid disorder Z13.[address] [id number] Dec, Chronic obstructive pulmonary disease, unspecified COPD type J44.[address] [id number] Nov, Sciatic leg pain M54.30 [facility] [address] [id number] [place] [id number] Oct, [address] [id number] Oct, Acute pain of right shoulder M25.[address] [id number] Oct, Chronic obstructive pulmonary disease, unspecified COPD type J44.[address] [id number] Oct, [place] [id number] [place] [address] [id number] Sep, Chronic obstructive pulmonary disease, unspecified COPD type J44.9 and Sciatic leg pain M54.[address] [id number] Aug, Moderate episode of recurrent major depressive disorder F33.1 and Chronic obstructive pulmonary disease, unspecified COPD type J44.9 [place] [address] [facility] [address] [id number] [id number] Aug, Moderate episode of recurrent major depr essive disorder F33.[address] [id number] Jul, Other depression F32.8 and Chronic obstructive pulmonary disease, unspecified COPD type J44.[address] [id number] Jul, Moderate episode of recurrent major depressive disorder F33.1 [place] [address] [facility] [address] [id number] [id number] Jun, [address] [id number] Jun, Moderate episode of recurrent major depressive disorder F33.[address] [id number] Jun, Moderate episode of recurrent major depressive disorder F33.[address] [id number] Jun, [address] [id number] Jun, Sciatic leg pain M54.[address] [id number] Jun, [address] [id number] May, Screening for thyroid disorder Z13.29 and Screening for lipid disorders Z13.[address] [id number] May, Other depression F32.[address] [id number] Apr, Sciatic leg pain M54.[address] [id number] Apr, Screening for lipid disorders Z13.220 ; Screening for thyroid disorder Z13.29 and Chronic obstructive pulmonary disease, unspecified COPD type J44.[address] [id number] Apr, Screening for lipid disorders Z13.220 ; Screening for thyroid disorder Z13.29 and Chronic obstructive pulmonary disease, unspecified COPD type J44.[address] [id number] Apr, [address] [id number] Apr, Chronic obstructive pulmonary disease, unspecified COPD type J44.[address] [id number] [place] [address] March, [address] [id number] March, Sciatic leg pain M54.30 and Other depression F32.[address] [id number] March, [address] [id number] Jan, Other depression F32.8 and Sciatic leg pain M54.[address] [id number] Jan, Sciatic leg pain M54.[address] [id number] Dec, Other depression F32.[address] [id number] Dec, Chronic obstructive pulmonary disease, unspecified COPD type J44.[address] [id number] Nov, [address] [id number] Oct, Other depression F32.8 and Chronic obstructive pulmonary disease, unspecified COPD type J44.9 [facility] [address] [id number] Aug, [facility] [address] [id number] Aug, Other depression F32.8 ; Arthralgia of right temporomandibular joint M26.62 and Encounter for immunization Z23 [facility] [address] [id number] Aug, Encounter for well woman exam Z01.419 [facility] [address] [id number] Jul, Other depression F32.8 and Arthralgia of right temporomandibular joint M26.62 [facility] [address] [id number] Jun, [facility] [place] [id number] [address] Jun, [facility] [address] [id number] Jun, [facility] [address] [id number] Jun, Other depression F32.8 and Urinary tract infection without hematuria, site unspecified N39.0 [facility] [address] [id number] Apr, [facility] [address] [id number] Apr, Dysuria R30.0 [facility] [address] [facility] [place] [address] March, [facility] [address] [id number] March, Urinary tract infection, site unspecified N39.0 [facility] [address] [id number] March, Urinary tract infection, site unspecified N39.0 [facility] [address] [id number] Feb, [address] [id number] Feb, Headache R51 and Ear pain H92.[address] [id number] Jan, Osteoarthritis of both knees, unspecified osteoarthritis type M17.0 and Hip bursitis, left M70.[address] [id number] Jan, [address] [id number] Dec, Unspecified arthropathy, site unspecified 716.90 and COPD (chronic obstructive pulmonary disease) [address] [id number] Dec, [address] [id number] Nov, [address] [id number] Oct, [address] [id number] Sep, [address] [id number] Sep, [address] [id number] Aug, [address] [id number] [place] [id number] Aug, [address] [place] [address] [id number] Aug, Urinary tract infection N39.0 and Shoulder strain, right, initial encounter S46.911A [address] [id number] Aug, Screening breast examination Z12.39 and Encounter for immunization Z23 [address] [id number] Aug, [facility] [place] 109[address] [facility] [id number] [place] [id number] Aug, [address] [id number] Jul, [facility] [address] [id number] Jun, [facility] [address] [id number] Jun, Allergic rhinitis, cause unspecified 477.9 and Cough 786.2 [facility] [address] [id number] May, [facility] [address] [id number] May, [facility] [address] [id number] May, Visit for suture removal V58.32 [facility] [address] [id number] May, Dog bite 879.[address] [id number] Apr, Rib pain on right side 786.50 [facility] [address] [id number] Apr, [facility] [address] [id number] Apr, Allergic rhinitis, cause unspecified 477.9 and Cough 786.2 [facility] [address] [id number] March, [facility] [address] [id number] March, [facility] [address] [id number] March, [facility] [address] [id number] March, [facility] [address] [id number] March, Cough 786.2 and Shortness of breath 786.05 [facility] [address] [id number] March, [facility] [address] [id number] March, Cough 786.2 ; COPD (chronic obstructive pulmonary disease) 496 and Allergic rhinitis, cause unspecified 477.9 [facility] [place] [address] [id number] [address] Feb, Allergic rhinitis, cause unspecified 477.9 ; Cough 786.2 and COPD (chronic obstructive pulmonary disease) 496 [facility] [id number] [place] [address] 14 Feb, 2015 [facility] [address] [address] Feb, [facility] [address] [address] Jan, [facility] [address] [address] Jan, [facility] [address] [address] Jan, [facility] [address] [id number] Jan, [facility] [address] [address] Jan, [facility] [address] [id number] Dec, [facility] [id number] [place] [address] Dec, [facility] [address] [id number] [id number] Dec, [facility] [id number] [place] [address] Dec, [facility] [place] [id number] [place] [address] [id number] Dec, [facility] [address] [address] Dec, [facility] [address] [address] Dec, [facility] [place] [address] [id number] Nov, [facility] [id number] [place] [address] Nov, [facility] [address] [facility] [place] [address] Nov, [facility] [address] [place] [id number] [id number] Nov, [facility] [address] [place] [address] Nov, [facility] [address] [place] [id number] [id number] Oct, [facility] [id number] [place] [address] Oct, [facility] [address] [id number] [place] [address] [id number] Sep, [facility] [id number] [place] [address] Sep, [facility] [id number] [place] [address] [id number] Sep, [facility] [id number] [place] [address] Sep, [facility] [id number] [address] Aug, [facility] [id number] [place] [address] Aug, [facility] [id number] [place] [address] [id number] Aug, [facility] [id number] [place] [address] Aug, [facility] [address] [address] Jul, [facility] [id number] [id number] Jul, [facility] [address] [place] [id number] [place] [address] [id number] Jul, [facility] [address] [id number] Jul, [facility] [address] [id number] [place] [address] Jul, [facility] [address] [id number] [place] [address] Jul, [facility] [address] [facility] [place] [address] Jul, [facility] [address] [facility] [place] [address] Jul, [facility] [address] [facility]757[facility] [id number] Jun, [facility] [id number] [place] [address] Jun, [facility] [address] [facility] [place] [address] Jun, [facility] [address] [id number] [id number] Jun, [facility] [address] [facility] [place] [address] Jun, [facility] [address] [place] [id number] [address] Jun, [facility] [address] [facility] [place] [address] Jun, [facility] [id number] [id number] Apr, [facility] [address] [facility] [place] [address] Apr, [facility] [address] [facility]07[address] [id number] Apr, [facility] [address] [id number] [place] [address] Apr, [facility] [address] [facility]07757[place] [id number] Apr, [facility] [address] [id number] [place] [address] Apr, [facility] [address] [id number] [place] [address] March, [facility] [id number] [place] [address] March, [facility] [address] [place] [address] [id number] [id number] March, [facility] [address] [place] [id number] [id number] Feb, [facility] [id number] [place] [address] Feb, [facility] [address] [place] [address] [id number] [id number] Jan, [facility] [id number] [place] [address] Jan, [facility] [address] [place] [id number] [id number] Dec, [facility] [id number] [place] [address] Dec, [facility] [address] [place] [id number] [id number] Dec, [facility] [id number] [place] [address] Dec, [facility] [id number] [place] [address] Dec, [facility] [id number] [place] [address] Dec, [facility] [address] [id number] [address] Nov, [facility] [id number] [place] [address] Nov, [facility] [address] [id number] [address] Nov, [facility] [id number] [place] [address] Nov, [facility] [address] [id number] [address] Nov, [facility] [place] [facility] [id number] [place] [address] Nov, [facility] [address] [place] [id number] [id number] Oct, [facility] [id number] [place] [address] Oct, [facility] [id number] [place] [address] Oct, [facility] [address] [facility]07757[facility] [id number] Oct, [facility] [id number] [place] [address] Sep, [facility] [address] [id number] [place] [address] Sep, [facility] [address] [id number] [id number] Sep, [facility] [id number] [place] [address] Sep, [facility] [id number] 56[address] Aug, [facility] [id number] [place] [address] Aug, [facility] [id number] [address] Jul, [facility] [id number] [address] Jul, [facility] [address] [facility]07757[facility] [id number] Jun, [facility] [id number] [address] May, [facility] [address] [place] [id number] [id number] May, [facility] [id number] [place] [address] May, [facility] [address] [id number] [id number] Apr, [facility] [address] [facility]63Y[facility] [address] Apr, [facility] [address] [place] [id number] [id number] March, [facility] [address] [facility]07757[facility] [address] Feb, [facility] [address] [place] [id number] [id number] Feb, [facility] [address] [place] [id number] [address] Jan, [facility] [id number] [id number] Jan, [facility] [id number] [id number] Dec, [facility] [address] [id number] [id number] Nov, [facility] [id number] [place] [address] Oct, [facility] [id number] [place] [address] Oct, [facility] [address] [id number] [id number] Oct, [facility] [id number] [place] [address] Oct, [facility] [address] [address] Oct, [facility] [id number] [id number] Oct, [facility] [address] [id number] [id number] Sep, [facility] [id number] [place] [address] Sep, [facility] [id number] [place] [address], [place] [id number] Sep, [facility] [address] [address] Sep, [facility] [address] [id number] [id number] Aug, [facility] [address] [id number] Aug, [facility] [address] [id number] [id number] Aug, [facility] [id number] [place] [id number] Jun, [facility] [place] [address] [id number] Jun, [facility] [address] [id number] May, [facility] [place] [address] [id number] Apr, [facility] [address] [id number] March, [facility] [place] [address] [id number] Feb, [facility] [place] [address] [id number] Jan, [address] [id number] Nov, [facility] [address] [id number] Sep, [facility] [address] [id number] Sep, [facility] [address] [id number] Aug, [facility] [address] [id number] Apr, [facility] [address] [id number] March, IMMUNIZATIONS No Known Immunizations SOCIAL HISTORY [...]
--- OUTSIDE RECORDS SUMMARY | 2020-03-30 07:14 | XMS REPORT ---
Author Author Devi TATE Organization [address] Address [address] [place] [address] Care Team Providers Care Crystal Calibrator Name Role Phone TARIQ TATE Unavailable PROBLEMS Type Condition ICD9-CM Code FJY50-GQ Code Onset Dates Condition S tatus SNOMED Code Problem Hip bursitis, left M70.72 Active 8 6200782 Problem Osteoarthritis of both knees, unspecified osteoarthritis t ype M17.0 Active 823062138 Problem Arthralgia of right temporomandibular joint M26.62 Active 38660459 Problem Other depression F32.8 Active 354 86281 Problem Moderate episode of recurrent major depressive disorder F33.1 Active 908012379 Problem Psychophysiological insomnia F51.04 A ctive 247022537 Problem Hypothyroidism, unspecified type E03.9 Active 21793914 Problem Chronic obstructive pulmonary disease with acute exacerbat ion J44.1 Active 293562506 Problem Sciatic leg pain M54.30 Active 230 62512 Problem Chronic obstructive pulmonary disease with acute exacerbat ion J44.1 Active 615260036 Problem Chronic obstructive pulmonary disease, unspecified COPD ty pe J44.9 Active 29160252 Problem Hypothyroidism, unspecified type E03.9 Active 40263904 Problem Mixed hyperlipidemia E78.2 Active 555459793 Problem Mixed hyperlipidemia E78.2 Active 610751158 Problem Other chronic pain G89.29 Active 8 [id number] ALLERGIES No Information ENCOUNTERS Encounter Location Date Diagnosis [address] [place] [address] 0 3 Nov, [address] [place] [address] 0 2 Nov, 2019 [facility] [address] [id number] [place] [id number] Oct, Community acquired pneumonia, unspecifie d laterality J18.9 [facility] 120 [facility] [id number] [place] [address] [id number] Oct, Community acquired pneumonia, unspecified laterality J18.9 and Chronic obstructive pulmonary disease with acute exacerbation J44.[address] [id number] Oct, [address] [id number] Oct, [address] [id number] Oct, Hip bursitis, left M70.72 ; Pain in right shoulder M25.511 ; Other chronic pain G89.29 and Moderate episode of recurrent major depressive disorder F33.[address] [id number] Sep, Encounter for immunization Z23 [address] [id number] Sep, [address] [id number] Sep, Chronic obstructive pulmonary disease, unspecified COPD type J44.[address] [id number] Sep, Moderate episode of recurrent major depressive disorder F33.[address] [id number] Aug, Acute pain of right shoulder M25.511 and Injury of right rotator cuff, subsequent encounter S46.001D [address] [id number] Aug, [address] [id number] Aug, Moderate episode of recurrent major depressive disorder F33.1 and Chronic obstructive pulmonary disease, unspecified COPD type J44.9 [facility] [address] [id number] [facility] [place] [id number] Jul, Injury of right rotator cuff, subsequent encounter S46.001D ; Sciatic leg pain M54.30 and Acute pain of right shoulder M25.511 [facility] [address] [id number] [place] [employer] [place] [id number] Jul, [address] [id number] Jul, Community acquired pneumonia of left lower lobe of lung J18.[address], [place] [id number] Jul, [address] [id number] Jul, Injury of right rotator cuff, subsequent encounter S46.001D [address], [place] [id number] Jul, [address] [id number] Jul, [address] [id number] Jul, Screening for thyroid disorder Z13.[address], [place] [address] Jun, Right shoulder pain, unspecified chronic ity M25.511 and Injury of right shoulder, initial encounter S49.91XA [address] [id number] Jun, Right shoulder pain, unspecified chronicity M25.511 and Injury of right shoulder, initial encounter S49.91XA [address] [id number] Jun, Moderate episode of recurrent major depressive disorder F33.1 ; Chronic obstructive pulmonary disease, unspecified COPD type J44.9 ; Mixed hyperlipidemia E78.2 and Hypothyroidism, unspecified type E03.[address] [id number] Jun, Chronic obstructive pulmonary disease, unspecified COPD type J44.[address] [id number] May, Contusion of right knee, initial encounter S80.01XA [address] [id number] May, Moderate episode of recurrent major depressive disorder F33.1 ; Chronic obstructive pulmonary disease, unspecified COPD type J44.9 and Sciatic leg pain M54.30 [facility] [address] [id number] May, [facility] [address] [id number] Apr, Urinary frequency R35.0 [facility] [place] [address] [facility] [address] [id number] [place] [id number] Apr, [facility] [address] [id number] March, Contusion of right knee, initial encounter S80.01XA and Chronic obstructive pulmonary disease, unspecified COPD type J44.[address] [id number] March, Moderate episode of recurrent major depressive disorder F33.1 and Urinary frequency R35.[address] [id number] Feb, [facility] [address] [id number] Feb, Chronic obstructive pulmonary disease, unspecified COPD type J44.[address] [id number] Feb, Dysuria R30.[address] [id number] Feb, Moderate episode of recurrent major depressive disorder F33.1 [facility] [address] [id number] Jan, Moderate episode of recurrent major depressive disorder F33.1 ; Chronic obstructive pulmonary disease, unspecified COPD type J44.9 ; Psychophysiological insomnia F51.04 ; Sciatic leg pain M54.30 and Contusion of right knee, initial encounter S80.01XA [facility] [address] [id number] Dec, Chronic obstructive pulmonary disease, unspecified COPD type J44.[address] [id number] Nov, Chronic obstructive pulmonary disease, unspecified COPD type J44.9 [address] [id number] Nov, Contusion of right knee, initial encounter S80.01XA [facility] [address] [id number] Nov, Osteoarthritis of both knees, unspecified osteoarthritis type M17.0 ; Sciatic leg pain M54.30 and Moderate episode of recurrent major depressive disorder F33.1 [facility] [address] [id number] Oct, Psychophysiological insomnia F51.04 [facility] [address] [id number] Sep, [facility] [address]FQ[address] [id number] [place] [address] Sep, [address] [id number] Sep, Psychophysiological insomnia F51.[address] [id number] Aug, Breast cancer screening Z12.[address] [id number] Aug, [facility] [address] [facility] [place] [address] Aug, [address] [id number] Jul, [address] [id number] Jul, Chronic obstructive pulmonary disease, unspecified COPD type J44.9 ; Osteoarthritis of both knees, unspecified osteoarthritis type M17.0 ; Moderate episode of recurrent major depressive disorder F33.1 and Sciatic leg pain M54.[address] [id number] Jun, Moderate episode of recurrent major depressive disorder F33.1 ; Sciatic leg pain M54.30 and Chronic obstructive pulmonary disease, unspecified COPD type J44.9 [facility] [address] [id number] Jun, [address] [id number] May, Sciatic leg pain M54.30 [place] [id number] [place] [address] [id number] May, Chronic obstructive pulmonary disease, unspecified COPD type J44.9 [facility] [address] [id number] [place] [id number] May, [address] [id number] Apr, Moderate episode of recurrent major depressive disorder F33.1 ; Sciatic leg pain M54.30 and Chronic obstructive pulmonary disease, unspecified COPD type J44.[address] [id number] March, [address] [id number] Feb, Sciatic leg pain M54.30 [facility] [address] [id number] [place] [id number] Feb, [address] [id number] Dec, Moderate episode of recurrent major depressive disorder F33.1 ; Sciatic leg pain M54.30 ; Chronic obstructive pulmonary disease, unspecified COPD type J44.9 and Screening for thyroid disorder Z13.[address] [id number] Dec, Chronic obstructive pulmonary disease, unspecified COPD type J44.[address] [id number] Nov, Sciatic leg pain M54.30 [facility] [address] [id number] [place] [id number] Oct, [address] [id number] Oct, Acute pain of right shoulder M25.[address] [id number] Oct, Chronic obstructive pulmonary disease, unspecified COPD type J44.[address] [id number] Oct, [place] [id number] [place] [address] [id number] Sep, Chronic obstructive pulmonary disease, unspecified COPD type J44.9 and Sciatic leg pain M54.[address] [id number] Aug, Moderate episode of recurrent major depressive disorder F33.1 and Chronic obstructive pulmonary disease, unspecified COPD type J44.9 [place] [address] [facility] [address] [id number] [id number] Aug, Moderate episode of recurrent major depr essive disorder F33.[address] [id number] Jul, Other depression F32.8 and Chronic obstructive pulmonary disease, unspecified COPD type J44.[address] [id number] Jul, Moderate episode of recurrent major depressive disorder F33.1 [place] [address] [facility] [address] [id number] [place] [id number] Jun, [address] [id number] Jun, Moderate episode of recurrent major depressive disorder F33.[address] [id number] Jun, Moderate episode of recurrent major depressive disorder F33.[address] [id number] Jun, [address] [id number] Jun, Sciatic leg pain M54.[address] [id number] Jun, [address] [id number] May, Screening for thyroid disorder Z13.29 and Screening for lipid disorders Z13.[address] [id number] May, Other depression F32.[address] [id number] Apr, Sciatic leg pain M54.[address] [id number] Apr, Screening for lipid disorders Z13.220 ; Screening for thyroid disorder Z13.29 and Chronic obstructive pulmonary disease, unspecified COPD type J44.[address] [id number] Apr, Screening for lipid disorders Z13.220 ; Screening for thyroid disorder Z13.29 and Chronic obstructive pulmonary disease, unspecified COPD type J44.[address] [id number] Apr, [address] [id number] Apr, Chronic obstructive pulmonary disease, unspecified COPD type J44.[address] [id number] [address] March, [address] [id number] March, Sciatic leg pain M54.30 and Other depression F32.[address] [id number] March, [address] [id number] Jan, Other depression F32.8 and Sciatic leg pain M54.[address] [id number] Jan, Sciatic leg pain M54.[address] [id number] Dec, Other depression F32.[address] [id number] Dec, Chronic obstructive pulmonary disease, unspecified COPD type J44.[address] [id number] Nov, [address] [id number] Oct, Other depression F32.8 and Chronic obstructive pulmonary disease, unspecified COPD type J44.9 [facility] [address] [id number] Aug, [facility] [address] [id number] Aug, Other depression F32.8 ; Arthralgia of right temporomandibular joint M26.62 and Encounter for immunization Z23 [facility] [address] [id number] Aug, Encounter for well woman exam Z01.419 [facility] [address] [id number] Jul, Other depression F32.8 and Arthralgia of right temporomandibular joint M26.62 [facility] [address] [id number] Jun, [facility] [id number] [address] Jun, [facility] [address] [id number] Jun, [facility] [address] [id number] Jun, Other depression F32.8 and Urinary tract infection without hematuria, site unspecified N39.0 [facility] [address] [id number] Apr, [facility] [address] [id number] Apr, Dysuria R30.0 [facility] [address] [place] [address] March, [facility] [address] [id number] March, Urinary tract infection, site unspecified N39.0 [facility] [address] [id number] March, Urinary tract infection, site unspecified N39.0 [facility] [address] [id number] Feb, [address] [id number] Feb, Headache R51 and Ear pain H92.[address] [id number] Jan, Osteoarthritis of both knees, unspecified osteoarthritis type M17.0 and Hip bursitis, left M70.[address] [id number] Jan, [address] [id number] Dec, Unspecified arthropathy, site unspecified 716.90 and COPD (chronic obstructive pulmonary disease) [address] [id number] Dec, [address] [id number] Nov, [address] [id number] Oct, [address] [id number] Sep, [address] [id number] Sep, [address] [id number] Aug, [address] [id number] [place] [id number] Aug, [address] [place] [address] [id number] Aug, Urinary tract infection N39.0 and Shoulder strain, right, initial encounter S46.911A [address] [id number] Aug, Screening breast examination Z12.39 and Encounter for immunization Z23 [address] [id number] Aug, [facility] [place] [address] [facility] [id number] [place] [id number] Aug, [address] [id number] Jul, [facility] [address] [id number] Jun, [facility] [address] [id number] Jun, Allergic rhinitis, cause unspecified 477.9 and Cough 786.2 [facility] [address] [id number] May, [facility] [address] [id number] May, [facility] [address] [id number] May, Visit for suture removal V58.32 [facility] [address] [id number] May, Dog bite 879.[address] [id number] Apr, Rib pain on right side 786.50 [facility] [address] [id number] Apr, [facility] [address] [id number] Apr, Allergic rhinitis, cause unspecified 477.9 and Cough 786.2 [facility] [address] [id number] March, [facility] [address] [id number] March, [facility] [address] [id number] March, [facility] [address] [id number] March, [facility] [address] [id number] March, Cough 786.2 and Shortness of breath 786.05 [facility] [address] [id number] March, [facility] [address] [id number] March, Cough 786.2 ; COPD (chronic obstructive pulmonary disease) 496 and Allergic rhinitis, cause unspecified 477.9 [facility] [place] [address] [id number] [id number] Feb, Allergic rhinitis, cause unspecified 477.9 ; Cough 786.2 and COPD (chronic obstructive pulmonary disease) 496 [facility] [id number] [place] [address] 14 Feb, 2015 [facility] [address] [address] Feb, [facility] [address] [address] Jan, [facility] [address] [address] Jan, [facility] [address] [address] Jan, [facility] [address] [id number] Jan, [facility] [address] [address] Jan, [facility] [address] [id number] Dec, [facility] [id number] [place] [address] Dec, [facility] [id number] [id number] Dec, [facility] [id number] [place] [address] Dec, [facility] [place] [address] [id number] [place] [address] [id number] Dec, [facility] [address] [address] Dec, [facility] [address] [address] Dec, [facility] [place] [address] [id number] Nov, [facility] [address] [id number] [place] [address] Nov, [facility] [address] [facility] [place] [address] Nov, [facility] [address] [place] [address] [id number] [id number] Nov, [facility] [address] [place] [address] Nov, [facility] [address] [id number] [id number] Oct, [facility] [address] [place] [id number] [place] [address] Oct, [facility] [id number] [place] [address] [id number] Sep, [facility] [address] [id number] [place] [address] Sep, [facility] [id number] [place] [address] [id number] Sep, [facility] [address] [id number] [place] [address] Sep, [facility] [address] [id number] [id number] Aug, [facility] [address] [id number] [place] [address] Aug, [facility] [id number] [place] [address] [id number] Aug, [facility] [address] [id number] [place] [address] Aug, [facility] [address] [address] Jul, [facility] [address] [id number] [id number] Jul, [facility] [address] [id number] [place] [address] [id number] Jul, [facility] [address] [id number] Jul, [facility] [address] [facility] [place] [address] Jul, [facility] [address] [facility] [place] [address] Jul, [facility] [address] [facility] [place] [address] Jul, [facility] [address] [facility] [place] [address] Jul, [facility] [address] [facility]07757[facility] [id number] Jun, [facility] [id number] [place] [address] Jun, [facility] [address] [facility] [place] [address] Jun, [facility] [address] [id number] [address] Jun, [facility] [address] [facility] [place] [address] Jun, [facility] [address] [place] [id number] [id number] Jun, [facility] [address] [facility] [place] [address] Jun, [facility] [address] [id number] [id number] Apr, [facility] [address] [facility] [place] [address] Apr, [facility] 120 [facility]07757[place] [id number] Apr, [facility] [address] [facility] [place] [address] Apr, [facility] 120 [facility]07757[place] [id number] Apr, [facility] [address] [facility] [place] [address] Apr, [facility] [address] [facility] [place] [address] March, [facility] [id number] [place] [address] March, [facility] [address] [id number] [id number] March, [facility] [address] [id number] [id number] Feb, [facility] [id number] [place] [address] Feb, [facility] [address] [place] [id number] [id number] Jan, [facility] [id number] [place] [address] Jan, [facility] [address] [id number] [address] Dec, [facility] [id number] [place] [address] Dec, [facility] [address] [id number] [id number] Dec, [facility] [id number] [place] [address] Dec, [facility] [address] [id number] [place] [address] Dec, [facility] [id number] [place] [address] Dec, [facility] [address] [id number] [address] Nov, [facility] [id number] [place] [address] Nov, [facility] [address] [id number] [address] Nov, [facility] [id number] [place] [address] Nov, [facility] [address] [id number] [id number] Nov, [facility] [place] [facility] [id number] [place] [address] Nov, [facility] [address] [id number] [id number] Oct, [facility] [id number] [place] [address] Oct, [facility] [address] [id number] [place] [address] Oct, [facility] 120 [facility]07757[facility] [id number] Oct, [facility] [address] [id number] [place] [address] Sep, [facility] [address] [facility] [place] [address] Sep, [facility] [address] [id number] [address] Sep, [facility] [address] [id number] [place] [address] Sep, [facility] [address] [id number] [id number] Aug, [facility] [id number] [place] [address] Aug, [facility] [address] [id number] [id number] Jul, [facility] [address] [id number] [id number] Jul, [facility] 120 [facility]07757[facility] [id number] Jun, [facility] [id number] [id number] May, [facility] [address] [id number] [id number] May, [facility] [address] [id number] [place] [address] May, [facility] [address] [id number] [id number] Apr, [facility] [address] [facility] [place] [address] Apr, [facility] [address] [id number] [id number] March, [facility] [address] [id number] [id number] Feb, [facility] [address] [id number] [id number] Feb, [facility] [address] [id number] [id number] Jan, [facility] [address] [id number] [place] [id number] Jan, [facility] [address] [id number] [id number] Dec, [facility] [address] [id number] [place] [id number] Nov, [facility] [id number] [place] [address] Oct, [facility] [id number] [place] [address] Oct, [facility] [address] [id number] [place], [place] [id number] Oct, [facility] [address] [id number] [place] [address] Oct, [facility] [address] [address] Oct, [facility] [address] [id number] [place] [place] [id number] Oct, [facility] [address] [id number] [place] [id number] Sep, [facility] [id number] [place] [address] Sep, [facility] [id number] [place] [address], [place] [id number] Sep, [facility] [address] [address] Sep, [facility] [address] [id number] [id number] Aug, [facility] [address] [address] Aug, [facility] [address] [id number] [id number] Aug, [facility] [id number] [place] [id number] Jun, [facility] [address] [id number] Jun, [facility] [address] [address] May, [facility] [address] [id number] Apr, [facility] [address] [id number] March, [facility] [address] [id number] Feb, [facility] [address] [id number] Jan, [address] [id number] Nov, [facility] [address] [address] Sep, [facility] [address] [address] Sep, [facility] [address] [address] Aug, [facility] [address] [address] Apr, [facility] [address] [address] March, IMMUNIZATIONS No Known Immunizations SOCIAL HISTORY [...]
[2020-03-30] MEDS ORDERED: NS IV 1000 ML 1,000 ML IV ONE (07:21)
--- OUTSIDE RECORDS SUMMARY | 2020-03-30 07:22 | XMS REPORT | Continuity of Care Document ---
Author Organization Unknown Address Unknown Phone Unavailable Allergies Active Description Code Type Severity Reaction Onset Reported/Identified Relationship to Patient Clinical Status Yes sulfa drug Drug Allergy 03/07/2011 Yes Sulfa (Sulfonamide Antibiotics) [id number] 0491 Drug Allergy Unknown N/A 014 Medications [...] DI K 530.81 ESOPHAGEAL REFLUX 03/07/2011 TATE ELECTRICAL ACCESSORIES II ASSEMBLER, TARIQ R 477.0 ALLERGIC RHINITIS - POLLEN 03/07/2011 TATE ELECTRICAL ACCESSORIES II ASSEMBLER, TARIQ R 493.90 ASTHMA 03/07/2011 TATE ELECTRICAL ACCESSORIES II ASSEMBLER, TARIQ R 530.81 ESOPHAGEAL REFLUX 03/07/2011 TATE ELECTRICAL ACCESSORIES II ASSEMBLER, TARIQ R 477.0 ALLERGIC RHINITIS - POLLEN 03/07/2011 TATE ELECTRICAL ACCESSORIES II ASSEMBLER, TARIQ R 493.90 ASTHMA 03/07/2011 TATE ELECTRICAL ACCESSORIES II ASSEMBLER, TARIQ R 530.81 ESOPHAGEAL REFLUX 03/07/2011 SHUKLA DO, DI K 477.0 ALLERGIC RHINITIS - POLLEN 03/07/2011 SHUKLA DO, DI K 493.90 ASTHMA 03/07/2011 SHULKA DO, DI K 530.81 ESOPHAGEAL REFLUX 03/07/2011 [...] DI K 530.81 ESOPHAGEAL REFLUX 03/07/2011 HELLWIG ELECTRICAL ACCESSORIES II ASSEMBLER, THEO E 477.0 ALLERGIC RHINITIS - POLLEN 03/07/2011 HELLWIG ELECTRICAL ACCESSORIES II ASSEMBLER, THEO E 493.90 ASTHMA 03/07/2011 HELLWIG ELECTRICAL ACCESSORIES II ASSEMBLER, THEO E 530.81 ESOPHAGEAL REFLUX 03/07/2011 TATE TARIQ WARNER 477.0 ALLERGIC RHINITIS - POLLEN 03/07/2011 TATE ELECTRICAL ACCESSORIES II ASSEMBLERTARIQ Mena 493.90 ASTHMA 03/07/2011 TATE ELECTRICAL ACCESSORIES II ASSEMBLER, TARIQ Bhardwaj 530.81 ESOPHAGEAL REFLUX 03/07/2011 SHUKLA [...] OTHER AND UNSPECIFIED CARDIOVASCULAR CONDITIONS 07/11/2011 TATE ELECTRICAL ACCESSORIES II ASSEMBLER TARIQ R 536.8 DYSPEPSIA AND OTHER SPECIFIED DISORDERS OF FUNCTION OF STOMACH 07/11/2011 TATE ELECTRICAL ACCESSORIES II ASSEMBLER TARIQ R V76.12 OTHER SCREENING MAMMOGRAM 07/11/2011 TATE ELECTRICAL ACCESSORIES II ASSEMBLERTARIQ R V77.91 SCREENING FOR LIPOID DISORDERS 07/11/2011 TATE ELECTRICAL ACCESSORIES II ASSEMBLERTARIQ Mena R V81.2 SCREENING FOR OTHER AND UNSPECIFIED CARDIOVASCULAR CON DITIONS 07/11/2011 TATE ELECTRICAL ACCESSORIES II ASSEMBLERTARIQ Mena R 536.8 DYSPEPSIA AND OTHER SPECIFIED DISORDERS OF FUNCTION OF STOMACH 07/11/2011 TATE ELECTRICAL ACCESSORIES II ASSEMBLER, TARIQ R V76.12 OTHER SCREENING MAMMOGRAM 07/11/2011 TATE ELECTRICAL ACCESSORIES II ASSEMBLER TARIQ R V77.91 SCREENING FOR LIPOID DISORDERS 07/11/2011 TATE ELECTRICAL ACCESSORIES II ASSEMBLER TARIQ R V81.2 SCREENING FOR OTHER [...] DI K V76.12 OTHER SCREENING MAMMOGRAM 07/11/2011 SHKULA DO, DI K V77.91 SCREENING FOR LIPOID [...] E V76.12 OTHER SCREENING MAMMOGRAM 07/11/2011 MARVEL ELECTRICAL ACCESSORIES II ASSEMBLERHOLLY MenaSIE E V77.91 SCREENING FOR LIPOID DISORDERS 07/11/2011 THEO GRIER APRN E V81.2 SCREENING FOR OTHER AND UNSPECIFIED CARDIOVASCULAR CON DITIONS 07/11/2011 TARIQ ATTE APRN 536.8 DYSPEPSIA AND OTHER SPECIFIED DISORDERS [...] ATROPHIC VAGINITIS 07/12/2011 TARIQ TATE APRN V72.31 DISTANCE LEARNING ADMINISTRATOR EXAM, ROUTINE 07/12/2011 627.3 POST MENOPAUSAL ATROPHIC VAGINITIS 07/12/2011 V72.31 DISTANCE LEARNING ADMINISTRATOR EXAM, ROUTINE 07/12/2011 627.3 POST MENOPAUSAL ATROPHIC VAGINITIS 07/12/2011 V72.31 DISTANCE LEARNING ADMINISTRATOR EXAM, ROUTINE 07/12/2011 627.3 POST MENOPAUSAL ATROPHIC VAGINITIS 07/12/2011 V72.31 DISTANCE LEARNING ADMINISTRATOR EXAM, ROUTINE 07/12/2011 627.3 POST MENOPAUSAL ATROPHIC VAGINITIS 07/12/2011 V72.31 DISTANCE LEARNING ADMINISTRATOR EXAM, ROUTINE 07/12/2011 627.3 POST MENOPAUSAL ATROPHIC VAGINITIS 07/12/2011 V72.31 DISTANCE LEARNING ADMINISTRATOR EXAM, ROUTINE 07/12/2011 627.3 POST MENOPAUSAL ATROPHIC VAGINITIS 07/12/2011 V72.31 DISTANCE LEARNING ADMINISTRATOR EXAM, ROUTINE 07/12/2011 627.3 POST MENOPAUSAL ATROPHIC VAGINITIS 07/12/2011 V72.31 DISTANCE LEARNING ADMINISTRATOR EXAM, ROUTINE 07/12/2011 627.3 POST MENOPAUSAL ATROPHIC VAGINITIS 07/12/2011 V72.31 DISTANCE LEARNING ADMINISTRATOR EXAM, ROUTINE 07/12/2011 DI SHUKLA DO 627.3 POSTMENOPAUSAL ATROPHIC VAGINITIS 07/12/2011 DI SHUKLA DO V72.31 DISTANCE LEARNING ADMINISTRATOR EXAM, ROUTINE 07/12/2011 DI SHUKLA DO 627.3 POSTMENOPAUSAL ATROPHIC VAGINITIS 07/12/2011 SHUKLA DI LANGLEY V72.31 DISTANCE LEARNING ADMINISTRATOR EXAM, ROUTINE 07/12/2011 DI SHUKLA DO 627.3 POSTMENOPAUSAL ATROPHIC VAGINITIS 07/12/2011 SHUKLA HOLLY LANGLEYA Nick V72.31 DISTANCE LEARNING ADMINISTRATOR EXAM, ROUTINE 07/12/2011 SHUKLA HOLLY LANGLEYA Nick 627.3 POSTMENOPAUSAL ATROPHIC VAGINITIS 07/12/2011 HOLLY SHUKLA DOA Nick V72.31 DISTANCE LEARNING ADMINISTRATOR EXAM, ROUTINE 07/12/2011 TARIQ TATE APRN 627.3 POSTMENOPAUSAL ATROPHIC VAGINITIS 07/12/2011 TATE TARIQ WARNER V72.31 DISTANCE LEARNING ADMINISTRATOR EXAM, ROUTINE 07/12/2011 TATE TARIQ WARNER 627.3 POSTMENOPAUSAL ATROPHIC VAGINITIS 07/12/2011 TATE TARIQ WARNER V72.31 DISTANCE LEARNING ADMINISTRATOR EXAM, ROUTINE 07/12/2011 SHUKLA DI LANGLEY 627.3 POSTMENOPAUSAL ATROPHIC VAGINITIS 07/12/2011 SHUKLA DO, DI Romero V72.31 DISTANCE LEARNING ADMINISTRATOR EXAM, ROUTINE 07/12/2011 SHUKLA DO, DI Romero 627.3 POSTMENOPAUSAL ATROPHIC VAGINITIS 07/12/2011 SHUKLA DO, DI Romero V72.31 DISTANCE LEARNING ADMINISTRATOR EXAM, ROUTINE 07/12/2011 SHUKLA DODI 627.3 POSTMENOPAUSAL ATROPHIC VAGINITIS 07/12/2011 SHUKLA DO, DI Romero V72.31 DISTANCE LEARNING ADMINISTRATOR EXAM, ROUTINE 07/12/2011 SHUKLA DI LANGLEY 627.3 POSTMENOPAUSAL ATROPHIC VAGINITIS 07/12/2011 SHUKLA DODI V72.31 DISTANCE LEARNING ADMINISTRATOR EXAM, ROUTINE 07/12/2011 THEO GRIER APRN 627.3 POSTMENOPAUSAL ATROPHIC VAGINITIS 07/12/2011 SAMEERALTHEO YA APRN V72.31 DISTANCE LEARNING ADMINISTRATOR EXAM, ROUTINE 07/12/2011 TATE TARIQ WARNER 627.3 POSTMENOPAUSAL ATROPHIC VAGINITIS 07/12/2011 TATE TARIQ WARNER V72.31 DISTANCE LEARNING ADMINISTRATOR EXAM, ROUTINE 07/12/2011 DI SHUKLA DO 627.3 POSTMENOPAUSAL ATROPHIC VAGINITIS 07/12/2011 SHUKLA DODI V72.31 DISTANCE LEARNING ADMINISTRATOR EXAM, ROUTINE 07/12/2011 SHUKLA DODI 627.3 POSTMENOPAUSAL ATROPHIC VAGINITIS 07/12/2011 SHUKLA DO, DI K V72.31 DISTANCE LEARNING ADMINISTRATOR EXAM, ROUTINE 09/17/2011 TARIQ TATE APRN 354.0 [...] 729.1 MYALGIA AND MYOSITIS, UNSPECIFIED 08/11/2012 TARIQ TTAE APRN V04.81 FLU DX (3 YRS AND [...] DO, DI K 477.9 RHINITIS 09/08/2012 TATE ELECTRICAL ACCESSORIES II ASSEMBLER, TARIQ R 461.9 SINUSITIS ACUTE 09/08/2012 TATE ELECTRICAL ACCESSORIES II ASSEMBLER, TARIQ R 477.9 RHINITIS 09/08/2012 TATE ELECTRICAL ACCESSORIES II ASSEMBLER, TARIQ R 461.9 SINUSITIS ACUTE 09/08/2012 TATE ELECTRICAL ACCESSORIES II ASSEMBLER, TARIQ R 477.9 RHINITIS 09/08/2012 SHUKLA [...] DO, DI K 477.9 RHINITIS 09/08/2012 HELLWIG ELECTRICAL ACCESSORIES II ASSEMBLERTHEO E 461.9 SINUSITIS ACUTE 09/08/2012 HELLWIG ELECTRICAL ACCESSORIES II ASSEMBLER, THEO E 477.9 RHINITIS 09/08/2012 TATE ELECTRICAL ACCESSORIES II ASSEMBLER, TARIQ R 461.9 SINUSITIS ACUTE 09/08/2012 TATE ELECTRICAL ACCESSORIES II ASSEMBLER, TARIQ R 477.9 RHINITIS 09/08/2012 SHUKLA [...] DI K 487.1 INFLUENZA 06/08/2014 NILA LEE ELECTRICAL ACCESSORIES II ASSEMBLER Ot 590.80 PYELONEPHRITIS NOS 06/08/2014 NILA LEE ELECTRICAL ACCESSORIES II ASSEMBLER Ot 724 .2 LUMBAGO 06/14/2014 VAZQUEZ LANGLEY, [...] CANDIE HERNANDEZ Ot V76.12 09/17/2014 THEO GRIER ELECTRICAL ACCESSORIES II ASSEMBLER Ot V76.12 09/17/2014 THEO GRIER ELECTRICAL ACCESSORIES II ASSEMBLER Ot V76.12 09/17/2014 THEO GRIER ELECTRICAL ACCESSORIES II ASSEMBLER Ot V76.12 12/26/2014 Ot 466.0 ACUT E BRONCHITIS 12/26/2014 Ot 786.2 COUGH 12/29/2014 CANDIE HERNANDEZ LOCAL ANNOUNCER Ot V76.12 12/29/2014 THEO GRIER ALANA Ot V76.12 01/18/2015 DI SHUKAL DO K 786.05 SHORTNESS OF BREATH 02/03/2015 NILA LEE ELECTRICAL ACCESSORIES II ASSEMBLER Ot 724 .2 LUMBAGO 02/03/2015 NILA LEE ELECTRICAL ACCESSORIES II ASSEMBLER Ot 959.19 OTH INJURY OF OTHER SITES OF TRUNK 02/03/2015 NILA LEE ELECTRICAL ACCESSORIES II ASSEMBLER Ot E000.8 OTHER EXTERNAL CAUSE STATUS 02/03/2015 NILA LEE ELECTRICAL ACCESSORIES II ASSEMBLER Ot E849.0 ACCIDENT IN HOME 02/03/2015 [...] CHR AIRWAY OBSTRUCT NEC 04/17/2015 NILA LEE ELECTRICAL ACCESSORIES II ASSEMBLER Ot 786 .2 COUGH 04/19/2015 TATETARIQ CHRISTINE R CFNP Ot 573.8 04/19/2015 TATE TARIQ R CFNP Ot 786.05 04/19/2015 TATE, TARIQ R CFNP Ot 786.2 04/19/2015 TATE, TARIQ R CFNP Ot 793.19 04/28/2015 TATE, TARIQ R CFNP Ot 573.8 04/28/2015 TATE TARIQ R CFNP Ot 786.05 04/28/2015 TATE, TARIQ R CFNP Ot 786.2 04/28/2015 TATE, TARIQ R CFNP Ot 793.19 05/02/2015 NILA LEE ELECTRICAL ACCESSORIES II ASSEMBLER Ot 881.00 OPEN WOUND OF FOREARM 05/02/2015 NILA LEE ELECTRICAL ACCESSORIES II ASSEMBLER Ot 919 .0 ABRASION NEC 05/02/2015 NILA LEE ELECTRICAL ACCESSORIES II ASSEMBLER Ot E000.8 OTHER EXTERNAL CAUSE STATUS 05/02/2015 NILA LEE ELECTRICAL ACCESSORIES II ASSEMBLER Ot E906.0 DOG BITE 05/02/2015 NILA LEE ELECTRICAL ACCESSORIES II ASSEMBLER Ot V06 .1 [id number], COMBINED [ 05/07/2015 CANDIE HERNANDEZP Ot V76.12 05/07/2015 THEO GRIER APRN Ot V76.12 05/07/2015 TATETARIQ R CFNP Ot 496 05/07/2015 TATETARIQ R CFNP Ot 786.05 05/07/2015 TATETARIQ R CFNP Ot 573.8 05/07/2015 TATETARIQ R CFNP Ot 786.05 05/07/2015 TATE, TARIQ R CFNP Ot 786.2 05/07/2015 TATETARIQ R CFNP Ot 793.19 05/07/2015 CANDIE HERNANDEZP Ot V76.12 05/07/2015 THEO GRIER ELECTRICAL ACCESSORIES II ASSEMBLER Ot V76.12 05/07/2015 TATETARIQ R CFNP Ot 496 05/07/2015 TATETARIQ R CFNP Ot 786.05 05/07/2015 TATETARIQ R CFNP Ot 573.8 05/07/2015 TATE, TARIQ R CFNP Ot 786.05 05/07/2015 TATE, TARIQ R CFNP Ot 786.2 05/07/2015 TATETARIQ CFNP Ot 793.19 05/07/2015 NILA LEE ELECTRICAL ACCESSORIES II ASSEMBLER Ot 686 .9 LOCAL SKIN INFECTION NOS 05/07/2015 NILA LEE ELECTRICAL ACCESSORIES II ASSEMBLER Ot 881.00 OPEN WOUND OF FOREARM 05/07/2015 NILA LEE ELECTRICAL ACCESSORIES II ASSEMBLER Ot 890 .0 OPEN WOUND OF HIP/THIGH 05/07/2015 NILA LEE ELECTRICAL ACCESSORIES II ASSEMBLER Ot E000.8 OTHER EXTERNAL CAUSE STATUS 05/07/2015 NILA LEE ELECTRICAL ACCESSORIES II ASSEMBLER Ot E906.0 DOG BITE 05/10/2015 CANDIE HERNANDEZ LOCAL ANNOUNCER Ot V76.12 05/10/2015 THEO GRIER ELECTRICAL ACCESSORIES II ASSEMBLER Ot V76.12 05/10/2015 TARIQ TATE CFNP Ot [...] CANDIE HERNANDEZP Ot V76.12 08/24/2015 THEO GRIER ELECTRICAL ACCESSORIES II ASSEMBLER Ot V76.12 08/24/2015 TATETARIQ CHRISTINE R CFNP Ot 496 08/24/2015 TARIQ TATE R CFNP Ot 786.05 08/24/2015 TARIQ TATE R CFNP Ot 573.8 08/24/2015 TARIQ TATE R CFNP Ot 786.05 08/24/2015 TARIQ TATE R CFNP Ot 786.2 08/24/2015 TARIQ TTAE R CFNP Ot 793.19 08/24/2015 LALITHA SQUIRES [...] SQUIRES DO M Ot J44. 9 12/21/2015 TAIVA DOLALITHA M Ot J45.909 12/21/2015 TAVIA DOLALITHA [...] CHRONIC OBSTRUCTIVE ASTHMA, NOS 06/06/2016 THEO GRIER ELECTRICAL ACCESSORIES II ASSEMBLER Ot Z12.31 ENCNTR SCREEN MAMMOGRAM FOR MALIGNANT NE 06/06/2016 LALITHA SQUIRES DO Ot J44. 9 CHRONIC OBSTRUCTIVE PULMONARY DISEASE, U 06/06/2016 LALITHA SQUIRES DO Ot J45.909 UNSPECIFIED ASTHMA, UNCOMPLICATED 06/06/2016 CANDIE HERNANDEZ Ot V76.12 OTH SCREEN MAMMO-MALIGN NEOPLASM OF YOLY 06/06/2016 THEO GRIER ELECTRICAL ACCESSORIES II ASSEMBLER Ot V76.12 OTH SCREEN MAMMO-MALIGN NEOPLASM OF [...] OBSTRUCTIVE ASTHMA, NOS 06/06/2016 THEO GRIER E ELECTRICAL ACCESSORIES II ASSEMBLER Ot Z12.31 ENCNTR SCREEN MAMMOGRAM FOR [...] 20 CHRONIC OBSTRUCTIVE ASTHMA, NOS 07/04/2016 MARVELTHEO ALANA Ot Z12.31 ENCNTR SCREEN MAMMOGRAM FOR [...] KRISTIN HERBERT, OBDULIO Merchant Ot Z79.899 OTHER HALF-WAY (CURRENT) DRUG THERAPY 09/26/2016 KRISTIN HERBERT, OBDULIO Merchant Ot J44.0 CHRONIC OBSTRUCTIVE PULMON DISEASE W ACU 09/26/2016 KRISTIN HERBERT, OBDULIO Merchant Ot R05 COUGH 09/26/2016 KRISTIN HERBERT, OBDULIO Merchant Ot Z79.899 OTHER SALES REPRESENTATIVE GAS SERVICE (CURRENT) DRUG THERAPY 09/28/2016 LALITHA SQUIRES DO Ot J44. 9 CHRONIC OBSTRUCTIVE PULMONARY DISEASE, U 09/28/2016 LALITHA SQUIRES DO Ot J45.909 UNSPECIFIED ASTHMA, UNCOMPLICATED 09/30/2016 OBDULIO FOSTER MD Ot J44.0 CHRONIC OBSTRUCTIVE PULMON DISEASE W ACU 09/30/2016 OBDULIO FOSTER MD Ot R05 COUGH 09/30/2016 OBDULIO FOSTER MD Ot Z79.899 OTHER HALF-WAY (CURRENT) DRUG THERAPY 10/02/2016 LALITHA SQUIRES DO [...] UNSPECIFIED ASTHMA, UNCOMPLICATED 11/27/2016 LALITHA SQUIRES DO M Ot R05 COUGH 11/27/2016 LALITHA [...] 12/29/2016 NILA LEE APRN Ot Z79.899 OTHER SALES REPRESENTATIVE GAS SERVICE (CURRENT) DRUG THERAPY 12/31/2016 NILA LEE APRN Ot J44 .9 CHRONIC OBSTRUCTIVE PULMONARY DISEASE, U 12/31/2016 NILA LEE APRN Ot M25.552 PAIN IN LEFT HIP 12/31/2016 NILA LEE APRN Ot M54.16 RADICULOPATHY, LUMBAR REGION 12/31/2016 NILA LEE APRN Ot Z79.899 OTHER SALES REPRESENTATIVE GAS SERVICE (CURRENT) DRUG THERAPY 01/22/2017 LALITHA SQUIRES DO Ot J44. 9 CHRONIC OBSTRUCTIVE PULMONARY DISEASE, U 01/22/2017 LALITHA SQUIRES DO M Ot J45.909 UNSPECIFIED ASTHMA, UNCOMPLICATED 01/22/2017 STAR SUQIRES DOSON M Ot R05 COUGH 01/22/2017 LALITHA [...] M Ot R06. 00 DYSPNEA, UNSPECIFIED 05/23/2017 LALIHTA SQUIRES DO M Ot J44. 9 CHRONIC [...] M Ot R05 COUGH 04/02/2018 TAVIA DO LALIHTA M Ot R06. 00 DYSPNEA, UNSPECIFIED 04/03/2018 [...] LALITHA M Ot R05 COUGH 08/27/2018 TAVIA DOSTARLALITHA [...] R06. 00 DYSPNEA, UNSPECIFIED 10/22/2018 WERO BARKLEY ELECTRICAL ACCESSORIES II ASSEMBLER Ot Z12.31 ENCNTR SCREEN MAMMOGRAM FOR MALIGNANT NE 11/11/2018 TAVIA DOSTARLALITHA M Ot J44. 9 CHRONIC OBSTRUCTIVE PULMONARY DISEASE, U 11/11/2018 TAVIA DO, LALITHA M Ot R05 COUGH 11/11/2018 TAVIA DO, LALITHA M Ot R06. 00 DYSPNEA, UNSPECIFIED 11/11/2018 WERO BARKLEY ELECTRICAL ACCESSORIES II ASSEMBLER Ot Z12.31 ENCNTR SCREEN MAMMOGRAM FOR MALIGNANT NE 11/11/2018 TAVIA DO, LALITHA M Ot J44. 9 CHRONIC OBSTRUCTIVE PULMONARY DISEASE, U 11/11/2018 TAVIA DO, LALITHA M Ot R05 COUGH 11/11/2018 TAVIA DO, LALITHA M Ot R06. 00 DYSPNEA, UNSPECIFIED 11/11/2018 WERO BARKLEY ELECTRICAL ACCESSORIES II ASSEMBLER Ot Z12.31 ENCNTR SCREEN MAMMOGRAM FOR [...] O 11/11/2018 NILA LEE APRN Ot Z79.51 SALES REPRESENTATIVE GAS SERVICE (CURRENT) USE OF INHALED STERO 11/11/2018 NILA [...] O 11/13/2018 NILA LEE APRN Ot Z79.51 HALF-WAY (CURRENT) USE OF INHALED STERO 11/13/2018 NILA [...] 00 DYSPNEA, UNSPECIFIED 07/02/2019 BARKLEY, WERO D ELECTRICAL ACCESSORIES II ASSEMBLER Ot Z12.31 ENCNTR SCREEN MAMMOGRAM FOR MALIGNANT NE 07/02/2019 NILA LEE APRN Ot F32 .9 MAJOR DEPRESSIVE DISORDER, SINGLE EPISOD 07/02/2019 NILA LEE APRN Ot J44 .9 CHRONIC OBSTRUCTIVE PULMONARY DISEASE, U 07/02/2019 NILA LEE APRN Ot K21 .9 GASTRO-ESOPHAGEAL REFLUX DISEASE WITHOUT 07/02/2019 NILA LEE APRN Ot M24.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, RIG 07/02/2019 NILA LEE APRN Ot M25.511 PAIN IN RIGHT SHOULDER 07/02/2019 NILA LEE APRN Ot Z79.51 SALES REPRESENTATIVE GAS SERVICE (CURRENT) USE OF INHALED STERO 07/02/2019 NILA [...] 00 DYSPNEA, UNSPECIFIED 07/02/2019 RUBIA, WERO D ELECTRICAL ACCESSORIES II ASSEMBLER Ot Z12.31 ENCNTR SCREEN MAMMOGRAM FOR [...] SHOULDER 07/04/2019 NILA LEE APRN Ot Z79.51 HALF-WAY (CURRENT) USE OF INHALED STERO 07/04/2019 NILA LEE APRN Ot Z88 .2 ALLERGY STATUS TO SULFONAMIDES STATUS 07/04/2019 LEE, PETER J ELECTRICAL ACCESSORIES II ASSEMBLER Ot Z90.49 ACQUIRED ABSENCE OF OTHER SPECIFIED PART 07/04/2019 NILA LEE ELECTRICAL ACCESSORIES II ASSEMBLER Ot Z90.710 ACQUIRED ABSENCE OF BOTH CERVIX [...] OTH SCREEN MAMMO-MALIGN NEOPLASM OF YOLY 07/29/2019 ATRIQ TATE Ot 496 CHR AIRWAY OBSTRUCT NEC [...] R06. 00 DYSPNEA, UNSPECIFIED 08/07/2019 WERO BARKLEY ELECTRICAL ACCESSORIES II ASSEMBLER Ot Z12.31 ENCNTR SCREEN MAMMOGRAM FOR [...] SCREEN MAMMOGRAM FOR MALIGNANT NE 08/07/2019 YVETTE ROAS Ot Z12.31 ENCNTR SCREEN MAMMOGRAM FOR MALIGNANT NE 08/07/2019 LALITHA SQUIRES DO Ot J44. 9 CHRONIC OBSTRUCTIVE PULMONARY DISEASE, U 08/07/2019 LALITHA SQUIRES DO Ot R05 COUGH 08/07/2019 LALITHA SQUIRES DO Ot R06. 00 DYSPNEA, UNSPECIFIED 08/07/2019 DEUCE RUZI MD Ot M25.511 PAIN IN RIGHT SHOULDER 08/21/2019 DEUCE RUIZ MD Ot M25.511 PAIN IN RIGHT SHOULDER 08/29/2019 NILA LEE APRN Ot F32 .9 MAJOR [...] ENCOUNTER 08/29/2019 NILA LEE APRN Ot Z79.51 SALES REPRESENTATIVE GAS SERVICE (CURRENT) USE OF INHALED STERO 08/29/2019 NILA [...] ENCOUNTER 09/02/2019 NILA LEE APRN Ot Z79.51 SALES REPRESENTATIVE GAS SERVICE (CURRENT) USE OF INHALED STERO 09/02/2019 NILA [...] ENCOUNTER 09/02/2019 NILA LEE APRN Ot Z79.51 HALF-WAY (CURRENT) USE OF INHALED STERO 09/02/2019 NILA LEE APRN Ot Z88 .2 ALLERGY STATUS TO SULFONAMIDES STATUS 09/02/2019 NILA LEE APRN Ot Z90.49 ACQUIRED ABSENCE OF OTHER SPECIFIED PART 09/02/2019 NILA LEE APRN Ot Z90.710 ACQUIRED ABSENCE OF BOTH CERVIX AND UTER 09/23/2019 THEO GRIER APRN Ot V76.12 OTH SCREEN MAMMO-MALIGN NEOPLASM OF YOLY 09/23/2019 TARIQ TATE CFNP Ot 496 CHR AIRWAY OBSTRUCT NEC 09/23/2019 TARIQ TATE CFNP Ot 786.05 SHORTNESS OF BREATH 09/23/2019 TARIQ TATE CFNP Ot 573.8 LIVER DISORDERS NEC 09/23/2019 TARIQ TATE CFNP Ot 786.05 SHORTNESS OF BREATH 09/23/2019 TARIQ ATTE CFNP Ot 786.2 COUGH 09/23/2019 TARIQ TATE [...] J44.1 CHRONIC OBSTRUCTIVE PULMONARY DISEASE W 10/12/2019 TUCKER DO, FRANCK Ot K21.9 GASTRO-ESOPHAGEAL REFLUX DISEASE [...] 793.19 OTHER NONSPECIFIC ABNORMAL FINDING OF NOAM 10/19/2019 LALITHA SQUIRES DO Ot 278. 00 OBESITY, NOS 10/19/2019 LALITHA SQUIRES DO Ot 496 CHR AIRWAY OBSTRUCT NEC 10/19/2019 LALITHA SQUIRES DO Ot 278. 00 OBESITY, NOS 10/19/2019 LALITHA SQUIRES DO Ot 493. 20 CHRONIC OBSTRUCTIVE ASTHMA, NOS 10/19/2019 THEO GRIER APRN Ot Z12.31 ENCNTR SCREEN MAMMOGRAM FOR MALIGNANT NE 10/19/2019 YVETTE ROSA Ot Z12.31 ENCNTR SCREEN MAMMOGRAM FOR MALIGNANT NE 10/19/2019 LALITHA SQUIRES DO Ot J44. 9 CHRONIC OBSTRUCTIVE PULMONARY DISEASE, U 10/19/2019 LALITHA SQUIRES DO Ot R05 COUGH 10/19/2019 LALITHA SQUIRES DO Ot R06. 00 DYSPNEA, UNSPECIFIED 10/19/2019 DEUCE RUIZ MD Ot M25.511 PAIN IN RIGHT SHOULDER 03/12/2020 LALITHA SQUIRES DO Ot J44. 9 CHRONIC OBSTRUCTIVE PULMONARY DISEASE, U 03/12/2020 LALITHA SQUIRES DO Ot R05 COUGH 03/12/2020 LALITHA SQUIRES DO Ot R06. 00 DYSPNEA, UNSPECIFIED 03/12/2020 WERO BARKLEY ELECTRICAL ACCESSORIES II ASSEMBLER Ot Z12.31 ENCNTR SCREEN MAMMOGRAM FOR MALIGNANT NE 03/12/2020 DEUCE RUIZ MD Ot M25.511 PAIN IN RIGHT SHOULDER 03/12/2020 [address] WALTERS APRN Ot J45.909 UNSPECIFIED ASTHMA, UNCOMPLICATED 03/12/2020 Ot J40 BRONCH ITIS, NOT SPECIFIED ACUTE OR CH 03/12/2020 Ot J45.909 UN SPECIFIED ASTHMA, UNCOMPLICATED 03/12/2020 Ot M25.511 PA IN IN RIGHT SHOULDER 03/12/2020 Ot M79.601 PA IN IN RIGHT ARM 03/12/2020 Ot S50.311A A BRASION OF RIGHT ELBOW, INITIAL ENCOUNT 03/12/2020 Ot W19.XXXA U NSPECIFIED FALL, INITIAL ENCOUNTER 03/15/2020 LUZ GOSS MD Ot F32.9 MAJOR DEPRESSIVE DISORDER, SINGLE EPISOD 03/15/2020 LUZ GOSS MD, Ot F41.9 ANXIETY DISORDER, UNSPECIFIED 03/15/2020 LUZ GOSS MD, Ot J18.9 PNEUMONIA, UNSPECIFIED ORGANISM 03/15/2020 LUZ GOSS MD, Ot J44.0 CHR OBSTRUCTIVE PULMON DISEASE WITH (ACU 03/15/2020 LUZ GOSS MD, Ot J45.901 UNSPECIFIED ASTHMA WITH (ACUTE) EXACERBA 03/15/2020 LUZ GOSS MD, Ot K21.9 GASTRO-ESOPHAGEAL REFLUX DISEASE WITHOUT 03/15/2020 LUZ GOSS MD, Ot R06.02 SHORTNESS OF BREATH 03/15/2020 LUZ GOSS MD, Ot Z11.59 ENCOUNTER FOR SCREENING FOR OTHER VIRAL 03/15/2020 LUZ GOSS MD, Ot Z79.51 HALF-WAY (CURRENT) USE OF INHALED STERO 03/15/2020 LUZ GOSS MD, Ot Z88.2 ALLERGY STATUS TO SULFONAMIDES STATUS Procedures Code Description [place] [address] ROUT INE VENIPUNCTURE 10/26/2013 13567 XRAY CHEST 2 VIEW 10/26/2013 J3301 GIGI LOG INJ, PER 10 MG 10/26/2013 17698 LIPI D PANEL 10/26/2013 75472 CBC 10/26/2013 [id number] GF R CALC (RESULT ONLY) 10/26/2013 55692 CMP 10/26/2013 49839 UA L HAILEY DIP 06/14/2014 20723 MAMM OGRAM, SCREENING 08/18/2014 94300 XRAY CHEST 2 VIEW 02/17/2015 Results Test [...] TEXT ENTRY 2 CONTAMINATION WITH SKIN CHANDAN NR FREE TEXT ENTRY 3 NO SUSCEPTIBILITY PERFORMED [facility] Serum or plasma lactate measurement (mol es/volume) [...] . NRG Bacterial blood culture SEE COMMEN NRG Bacterial blood culture - 10/08/19 07:48 Bacterial blood culture NG NRG Complete urinalysis [...] d white blood cell (WBC) differential - 03/11/20 08:02 Blood leukocytes automated count (number/volume) 8.8 10*3/uL 4.3-11.0 Blood erythrocytes automated count (number/volume) 4.61 10*6/uL 4.35-5.85 Venous blood hemoglobin measurement (mass/volume) 13.4 g/dL 11.5-16.0 Blood hematocrit (volume fraction) 41 % 35-52 Automated erythrocyte mean corpuscular volume 89 [ foz_us] 80-99 Automated erythrocyte mean corpuscular h emoglobin (mass per erythrocyte) 29 pg 25-34 Automated erythrocyte mean corpuscular h emoglobin concentration measurement (mass/volume) 33 g/dL 32-36 Automated erythrocyte distribution width ratio 14. 3 % 10.0- 14.5 Automated blood platelet count (count/volume) 232 10*3/uL 130-400 Automated blood platelet mean volume measurement 10.2 [foz_us] 7.4-10.4 Automated blood neutrophils/100 leukocytes 77 % 42-75 Automated blood lymphocytes/100 leukocytes 17 % 12-44 Blood monocytes/100 leukocytes 4 % 0-12 Automated blood eosinophils/100 leukocytes 2 % 0-10 Automated blood basophils/100 leukocytes 0 % 0-10 Blood neutrophils automated count (number/volume) 6.7 10*3 1.8-7.8 Blood lymphocytes automated count (number/volume) 1.5 10*3 1.0-4.0 Blood monocytes automated count (number/volume) 0. 4 10*3 0.0-1.0 Automated eosinophil count 0.2 10*3/uL 0 .0-0.3 Automated blood basophil count (count/volume) 0.0 10*3/uL 0.0-0.1 Comprehensive metabolic panel - 03/11/20 08:02 Serum or plasma sodium measurement (moles/volume) 143 mmol/L 135-145 Serum or plasma potassium measurement (moles/volume) 3.3 mmol/L 3.6-5.0 Serum or plasma chloride measurement (moles/volume) 109 mmol/L 98-107 Carbon dioxide 23 mmol/L 21-32 Serum or plasma anion gap determination (moles/volume) 11 mmol/L 5-14 Serum or plasma urea nitrogen measurement (mass/volume ) 11 mg/dL 7-18 Serum or plasma creatinine measurement (mass/volume) 0.96 mg/dL 0.60-1.30 Serum or plasma urea nitrogen/creatinine mass ratio 11 NRG Serum or plasma creatinine measurement w ith calculation of estimated glomerular filtration rate 59 NRG Serum or plasma glucose measurement (mass/volume) 111 mg/dL 70-105 Serum or plasma calcium measurement (mass/volume) 9.3 mg/dL 8.5-10.1 Serum or plasma total bilirubin measurement (mass/volu me) 0.4 mg/dL 0.1-1.0 Serum or plasma alkaline phosphatase marco surement (enzymatic activity/volume) 79 U/L 40-136 Serum or plasma aspartate aminotransfera se measurement (enzymatic activity/volume) 23 U/L 5-34 Serum or plasma alanine aminotransferase measurement (enzymatic activity/volume) 33 U/L 0-55 Serum or plasma protein measurement (mass/volume) 6.3 g/dL 6.4-8.2 Serum or plasma albumin measurement (mass/volume) 3.9 g/dL 3.2-4.5 CALCIUM CORRECTED 9.4 mg/dL 8.5-10.1 Blood lactic acid measurement (moles/vol ume) - 03/11/20 08:02 Blood lactic acid measurement (moles/volume) 1.86 mmol/L 0.50-2.00 Serum ragweed IgE antibody assay - 03/11 08:02 Serum ragweed IgE antibody assay 200 U/L 125-220 PROCALCITONIN (PCT) - 03/11/20 08:02 PROCALCITONIN (PCT) 0.02 ng/mL <0.10 PT panel in platelet poor plasma by coag ulation assay - 03/11/20 08:02 Prothrombin time (PT) in platelet poor plasma by coagu lation assay 12.0 s 12.2-14.7 INR in platelet poor plasma or blood by coagulation as say 0.9 0.8-1.4 Activated partial thromboplastin time (a PTT) in platelet poor plasma bycoagulation assay - 03/11/20 08:02 Activated partial thromboplastin time (a PTT) in platelet poor plasma bycoagulation assay 28 s 24-35 Fibrin D-dimer FEU measurement in platel et poor plasma (mass/volume) - 03/11/20 08:02 Fibrin D-dimer FEU measurement in platelet poor plasma (mass/volume) 0.45 ug/mL 0.00-0.49 Erythrocyte sedimentation rate by tadeo gren method - 03/11/20 08:02 Erythrocyte sedimentation rate by westergren method 7 mm 0- 30 Serum or plasma C reactive protein measu rement (mass/volume) - 03/11/20 08:02 Serum or plasma C reactive protein measurement (mass/v olume) 0.13 mg/dL 0.00-0.50 Bacterial blood culture - 03/11/20 08:02 Bacterial blood culture NG NRG Bacterial blood culture - 03/11/20 08:08 Bacterial blood culture NG NRG Coronavirus SARS-CoV-2 SO 2018 - 0 08:20 Coronavirus Ab [Units/volume] in Serum Negative Negative Complete urinalysis with reflex to cultu re - 03/11/20 09:10 Urine color determination YELLOW NRG Urine clarity determination CLEAR NR G Urine pH measurement by test strip 6.0 5-9 Specific gravity of urine by test strip 1.020 1.016-1.022 Urine protein assay by test strip, [...] urobilinogen measurement by automated test strip (mass/volume) 0.2 mg/dL < = 1.0 Urine leukocyte esterase detection by dipstick TRA CE NEGATIVE Automated urine sediment erythrocyte cou nt by microscopy (number/high power field) RARE NRG Automated urine sediment leukocyte count by [...] NRG Complete urinalysis with reflex to culture CULTURE PENDING NRG Bacterial urine culture - 03/11/20 09:10 Bacterial urine culture 3 OR MORE NRG COLONY COUNT >100,000/ML NRG SUSCEPTIBILITY GRAM POSITIVE ISOLATES SUGGESTING NRG MRSA SCREEN PROBABLE COLLECTION CONTAMINATION WITH NRG RAPID ID SKIN CHANDAN. NO SUSCEPTIBILITY PERFORMED NRG Encounters ACCT No. Visit Date/Time Discharge Status Pt. Type Provider Facility Loc./Unit Complaint [id number] 02/25/2020 11:00:00 02/25/2020 23:59: 59 CLS Outpatient TARIQ TATE APRN [facility] [address] [id number] 06/30/2019 08:20:00 Document Registration [id number] 04/21/2019 08:40:00 Document Registration [id number] 03/09/2019 11:20:00 Document Registration [id number] 12/18/2017 13:00:00 Document Registration [id number] 03/11/2020 07:45:00 10:05:00 DIS Outpatient LUZ GOSS MD [facility] ER SOA [id number] 10/08/2019 09:12:00 14:23:00 DIS Inpatient FRANCK TUCKER DO [facility] 4TH PNA [id number] 09/23/2019 11:51:00 23:59:[address] W[employer]S [employer] [facility] RAD ASTHMA [id number] 08/29/2019 11:13:00 12:22:00 DIS Emergency NILA LEE [employer] [facility] ER FALL - R ARM / RIB PAIN [id number] 08/03/2019 08:49:00 23:59:59 CLS Outpatient DEUCE RUIZ MD [facility] ORTHO [id number] 07/23/2019 09:14:00 13:30:00 DIS Inpatient FRANCK TUCKER DO, [facility] 4TH LLL PNA [id number] 07/22/2019 09:25:00 23:59:59 CLS Preadmit TARIQ TATE CFNP [facility] RAD INJURY OF RT ROTATOR C UFF [id number] 07/10/2019 01:29:00 01:56:00 DIS Emergency KESHAWN KERVINKim Seaman [facility] ER RT SHOULDER PAIN [id number] 07/02/2019 14:39:00 16:02:00 DIS Emergency NILA LEE APRN [facility] ER R SHOULDER PAIN [id number] 11/26/2018 13:00:00 23:59:59 CLS Preadmit LALITHA SQUIRES DO [facility] J45.909 ASTHMA [id number] 09/24/2018 11:37:00 00:01:00 DIS Outpatient LALITHA SQUIRES DO [facility] J45.909 ASTHMA [id number] 11/11/2018 16:39:00 18:00:00 DIS Emergency NILA LEE [employer] [facility] ER FELL [id number] 10/22/2018 10:00:00 23:59:59 CLS Preadmit LALITHA SQUIRES DO [facility] J45.909 ASTHMA [id number] 09/02/2018 09:26:00 23:59:59 CLS Outpatient WERO BARKLEY [employer] [facility] RAD SCREENING [id number] 07/31/2018 12:33:00 00:01:00 DIS Outpatient LALITHA SQUIRES DO [facility] J45.909 ASTHMA [id number] 07/02/2018 13:00:00 018 23:59:59 CLS Preadmit LALITHA SQUIRES DO [facility] ASHTMA,COPD,ALLERGIC RH INITIS [id number] 06/30/2018 12:51:00 018 00:01:00 DIS Outpatient LALITHA SQUIRES DO [facility] ASHA,COPD,ALLERGIC RH INITIS [id number] 03/05/2018 12:07:00 018 00:01:00 DIS Outpatient LALITHA SQUIRES DO [facility] ASHA,COPD,ALLERGIC RH INITIS [id number] 11/12/2017 13:18:00 018 00:01:00 DIS Outpatient LALITHA SQUIRES DO [facility] ASHA,COPD,ALLERGIC RH INITIS [id number] 10/20/2017 18:35:00 017 20:04:00 DIS Emergency KERVIN LIAO DO [facility] ER R SHOULDER/ARM PAIN [id number] 07/22/2017 11:22:00 017 00:01:00 DIS Outpatient LALITHA SQUIRES DO [facility] ASHA,COPD,ALLERGIC RH INITIS [id number] 04/26/2017 10:53:00 017 00:01:00 DIS [facility] [id number] 01/22/2017 13:47:00 017 00:01:00 DIS Outpatient LALITHA SQUIRES DO [facility] ASHA,COPD,ALLERGIC RH INITIS [id number] 12/29/2016 13:52:00 017 14:56:00 DIS Emergency NILA LEE APRN [facility] ER L HIP AND BACK PAIN [id number] 09/28/2016 11:08:00 016 00:01:00 DIS Outpatient LALITHA SQUIRES DO [facility] ASHTMA,COPD,ALLERGIC RH INITIS [id number] 09/24/2016 11:34:00 14:09:00 DIS Emergency OBDULIO FOSTER MD [facility] ER COUGH/CHEST CON GESTION [id number] 09/04/2016 13:47:00 23:59:59 CLS Outpatient YVETTE ROSA [facility] RAD SCREENING [id number] 06/19/2016 19:03:00 21:03:00 DIS Emergency SITA CLARKE [facility] ER R KNEE PAIN [id number] 06/06/2016 11:50:00 00:01:00 DIS Outpatient LALITHA SQUIRES DO [facility] ASHTMA,COPD,ALLERGIC RH INITIS [id number] 02/15/2016 10:42:00 00:01:00 DIS Outpatient LALITHA SQUIRES DO [facility] ASHTMA,COPD,ALLERGIC RH INITIS [id number] 01/28/2016 00:20:00 016 02:26:00 DIS Emergency KERVIN LIAO DO a [facility] ER VOMITING [id number] 10/26/2015 12:54:00 23:59:59 CLS Outpatient LALITHA SQUIRES DO [facility] ASHTMA,COPD,ALLERGIC RH INITIS [id number] 08/24/2015 10:43:00 23:59:59 CLS Outpatient THEO GRIER APRN [facility] RAD SCREENING [id number] 08/08/2015 19:29:00 22:16:00 DIS Emergency LUZ GOSS MD [facility] ER R SHOULDER PAIN [id number] 06/17/2015 10:57:00 015 11:07:00 DIS Outpatient LALITHA SQUIRES DO [facility] SLEEP EDS, SNORING, GASPING D URING SLEEP [id number] 06/06/2015 14:10:00 23:59:59 CLS Outpatient LALITHA SQUIRES DO [facility] RT COPD ASTHMA OBESITY [id number] 05/24/2015 15:10:00 23:59:59 CLS Outpatient LALITHA SQUIRES DO [facility] LAB COPD,ASTHMA,OBESITY [id number] 05/07/2015 18:53:00 19:25:00 DIS Emergency NILA LEE APRN [facility] ER DOG BITES INFECTED [id number] 05/02/2015 13:43:00 15:21:00 DIS Emergency NILA LEE APRN [facility] ER MULTIPLE DOG BITES [id number] 04/17/2015 18:59:00 20:13:00 DIS Emergency NILA LEE APRN [facility] ER COUGH;SOA [id number] 04/01/2015 13:52:00 23:59:59 CLS Outpatient KEON BELLO MD (DDU) [facility] RAD [id number] 03/21/2015 08:59:00 23:59:59 CLS Outpatient TARIQ TATE CFNP [facility] RAD COUGH [id number] 02/16/2015 12:16:00 23:59:59 CLS Outpatient TARIQ TATE CFNP [facility] RAD COPD W/PERSISTE NT COUGH [id number] 02/03/2015 15:02:00 17:21:00 DIS Emergency NILA LEE APRN [facility] ER FALL, BACK/TAILBONE COLLIN N [id number] 08/23/2014 11:24:00 014 23:59:59 CLS Outpatient THEO GRIER APRN [facility] RAD SCREENING [id number] 07/28/2014 20:35:00 014 23:27:00 DIS Emergency SITA CLARKE [facility] ER HEADACHE [id number] 06/08/2014 19:24:00 014 20:38:00 DIS Emergency NILA LEE [employer] [facility] ER L SIDE/BACK PAIN [id number] 08/17/2013 09:03:00 013 23:59:59 CLS Outpatient CANDIE HERNANDEZ Willy LOCAL ANNOUNCER [facility] RAD ROUTINE [id number] 03/30/2020 07:02:[address] Emergency KRISTIN HERBERT, OBDULIO Merchant [facility] ER SOA/FEVER [id number] 09/24/2019 09:38:00 Document Registration [id number] 08/24/2015 10:43:00 Document Registration [id number] 12/26/2014 12:34:00 Document Registration [id number] 09/17/2014 11:01:00 Document Registration [id number] 09/17/2014 11:01:00 Document Registration [id number] 02/11/2015 08:47:00 02/11/2015 23:59: 59 CLS Outpatient DI SHUKLA DO [id number] 12/07/2014 11:27:00 12/07/2014 23:59: 59 CLS Outpatient DI SHUKLA DO [id number] 11/16/2014 10:08:00 11/16/2014 23:59: 59 CLS Outpatient DI SHUKLA DO [id number] 08/18/2014 10:57:00 08/18/2014 23:59: 59 CLS Outpatient THEO GRIER APRN [id number] 07/29/2014 08:22:00 07/29/2014 23:59: 59 CLS Outpatient DI SHUKLA DO [id number] 06/24/2014 11:38:00 06/24/2014 23:59: 59 CLS Outpatient DI SHUKLA DO [id number] 06/14/2014 12:13:00 06/14/2014 23:59: 59 CLS Outpatient DI SHUKLA DO [id number] 03/24/2014 08:25:00 03/24/2014 23:59: 59 CLS Outpatient DI SHUKLA DO [id number] 12/10/2013 15:55:00 12/10/2013 23:59: 59 CLS Outpatient BEBETO TARIQ WARNER [id number] 11/12/2013 13:29:00 11/12/2013 23:59: 59 CLS Outpatient DI SHUKLA DO [id number] 10/26/2013 11:48:00 10/26/2013 23:59: 59 CLS Outpatient DI SHUKLA DO [id number] 10/23/2013 00:00:00 10/23/2013 23:59: 59 CLS Outpatient TATETARIQ Rojo APRN [id number] 09/23/2013 09:40:00 09/23/2013 23:59: 59 CLS Outpatient DI SHUKLA DO [id number] 08/19/2013 09:31:00 08/19/2013 23:59: 59 CLS Outpatient DI SHUKLA DO [id number] 12/29/2012 10:08:00 12/29/2012 23:59: 59 CLS Outpatient [id number] 11/07/2012 09:34:00 11/07/2012 23:59: 59 CLS Outpatient [id number] 10/08/2012 08:58:00 10/08/2012 23:59: 59 CLS Outpatient TARIQ TATE APRN [id number] 09/08/2012 09:51:00 09/08/2012 23:59:5 9 CLS Outpatient TARIQ TATE APRN [id number] 07/21/2013 08:46:00 Document Registration [id number] 07/07/2013 08:45:00 Document Registration [id number] 06/05/2013 00:00:00 Document Registration [id number] 04/15/2013 10:45:00 Document Registration [id number] 03/13/2013 09:40:00 Document Registration [id number] 02/19/2013 10:11:00 Document Registration
[2020-03-30 07:39] LABS: BASOPHILS % (AUTO) 0 % (0-10); EOSINOPHILS % (AUTO) 0 % (0-10); HEMATOCRIT 41 % (35-52); HEMOGLOBIN 13.4 G/DL (11.5-16.0); LYMPHOCYTES # (AUTO) 0.3 X 10^3 (1.0-4.0); LYMPHOCYTES % (AUTO) 3 % (12-44); MEAN CORPUSCULAR HEMOGLOBIN 29 PG (25-34); MEAN CORPUSCULAR HGB CONC 33 G/DL (32-36); MEAN CORPUSCULAR VOLUME 89 FL (80-99); MEAN PLATELET VOLUME 10.2 FL (7.4-10.4); MONOCYTES # (AUTO) 0.4 X 10^3 (0.0-1.0); MONOCYTES % (AUTO) 4 % (0-12); NEUTROPHILS # (AUTO) 9.1 X 10^3 (1.8-7.8); NEUTROPHILS % (AUTO) 92 % (42-75); PLATELET COUNT 257 10^3/uL (130-400); RED CELL DISTRIBUTION WIDTH 14.6 % (10.0-14.5); WHITE BLOOD COUNT 9.9 10^3/uL (4.3-11.0)
[2020-03-30 07:49] LABS: POTASSIUM 3.3 MMOL/L (3.6-5.0)
[2020-03-30 07:50] LABS: CALCIUM 9.8 MG/DL (8.5-10.1)
--- NOTE | 2020-03-30 07:50 | NUR ---
Assisted pt to bedside commode to obtain clean catch urine sample.
[2020-03-30 07:51] LABS: TOTAL PROTEIN 6.8 GM/DL (6.4-8.2)
[2020-03-30 07:52] LABS: PROTHROMBIN TIME PATIENT 13.3 SEC (12.2-14.7)
[2020-03-30 07:53] LABS: BILIRUBIN,TOTAL 0.9 MG/DL (0.1-1.0)
[2020-03-30 07:55] LABS: CREATININE SERUM 1.02 MG/DL (0.60-1.30)
[2020-03-30 07:59] LABS: BAND NEUTROPHILS 12 %; BASOPHILS % (MANUAL) 0 %; ELLIPT/OVALOCYTES SLIGHT; EOSINOPHILS % (MANUAL) 0 %; LYMPHOCYTES % (MANUAL) 6 %; MONOCYTES % (MANUAL) 3 %; NEUTROPHILS % (MANUAL) 79 %
[2020-03-30 08:02] LABS: BILIRUBIN,URINE NEGATIVE (NEGATIVE); CLARITY,URINE CLEAR; COLOR,URINE YELLOW; GLUCOSE, URINE (UA) NEGATIVE (NEGATIVE); KETONES,URINE NEGATIVE (NEGATIVE); LEUKOCYTE ESTERASE ,URINE NEGATIVE (NEGATIVE); NITRITE,URINE NEGATIVE (NEGATIVE); PROTEIN,URINE NEGATIVE (NEGATIVE)
[2020-03-30 08:09] LABS: BACTERIA,URINE TRACE /HPF; RBC,URINE 0-2 /HPF; SQUAMOUS EPITHELIAL CELL,UR 0-2 /HPF
[2020-03-30] MEDS ORDERED: ACETAMINOPHEN 500 MG TAB (TYLENOL) PO ONE (08:15)
--- NOTE | 2020-03-30 08:21 | ED General ---
General Chief Complaint: Respiratory Problems Stated Complaint: SOA/FEVER Nursing Triage Note: Assisted pt via ED w/c by ED staff from POV to room #10 with c/o SOA et fever. Pt reports at 0400 on this day, she began to experience increase in SOA with fever >101.0. Pt reports she was tested for COVID-19 on 03-21-20 with negative results. Pt reports dry cough. Initial SPO2 90% post exertion. A&OX4. Nursing Sepsis Screen: Possible Severe Sepsis Risk Source of Information: Patient Exam Limitations: No Limitations History of Present Illness Date Seen by Provider: March 30, 2020 Time Seen by Provider: 07:05 Initial Comments This 64-year-old woman presents to the emergency room with complaints of shortness of breath that started last night and fever greater than 101 early this morning. She was seen in this ER on March 11 and diagnosed with pneumonia. She was treated as an outpatient with prednisone, azithromycin, and Cefdinir. She has COPD and uses multiple inhaled medications. She did use albuterol this morning without significant improvement. She denies any cardiac history. She has never been a smoker but has extensive secondhand smoke exposure. She has diagnoses of asthma and COPD. She is visibly short of breath and oxygen saturations are running 90-93 percent on room air. She has no definite known COVID-19 exposures but was in the emergency room on March 11. Allergies and Home Medications Allergies Coded Allergies: Sulfa (Sulfonamide Antibiotics) (Unverified Allergy, Unknown, 06/08/14) Home Medications Albuterol Sulfate 1 Puff Puff, 2 PUFF IH Q4H PRN for SHORTNESS OF BREATH, ( Reported) 1 PUFF = 90 MCG Atorvastatin Calcium 20 Mg Tablet, 20 MG PO HS, (Reported) Azithromycin 250 Mg Tablet, 250 MG PO DAILY Prescribed by: LUZ GOSS on 03/11/20944 Cefdinir 300 Mg Capsule, 300 MG PO BID Prescribed by: LUZ GOSS on 03/11/20944 Celecoxib 100 Mg Capsule, 100 MG PO BID, (Reported) Cetirizine HCl 10 Mg Tablet, 10 MG PO DAILY, (Reported) Fluoxetine HCl 40 Mg Capsule, 80 MG PO DAILY, (Reported) TAKES 2 (40MG) CAPSULES Fluticasone Propionate 16 Gm [place].susp, 2 SPRAYS NS BID PRN for ALLERGIES, (Reported) Fluticasone/Salmeterol 1 Each Blst.w.dev, 1 PUFF IH BID, (Reported) Gabapentin 300 Mg Capsule, 300 MG PO BID, (Reported) Levothyroxine Sodium 25 Mcg Tablet, 37.5 MCG PO DAILY, (Reported) TAKES 1 & 1/2 (25MCG) TABLET Montelukast Sodium 10 Mg Tablet, 10 MG PO HS, (Reported) LAST RECEIVED #90 8-- FROM REPOSITORY Multivitamin 1 Each Tablet, 1 TAB PO DAILY, (Reported) Omeprazole 40 Mg Capsule.dr, 40 MG PO BID, (Reported) Prednisone 20 Mg Tab, 40 MG PO DAILY Prescribed by: LUZ GOSS on 03/11/20 0945 Quetiapine Fumarate 100 Mg Tablet, 150 MG PO HS, (Reported) TAKES 1 & 1/2 (100MG) TABLETS Tiotropium [place] 1 Inh Aerp, 1 CAP IH HS, (Reported) Patient Home Medication List Home Medication List Reviewed: Yes Review of Systems Review of Systems Constitutional: see HPI EENTM: no symptoms reported Respiratory: see HPI Cardiovascular: no symptoms reported Gastrointestinal: no symptoms reported Genitourinary: no symptoms reported : No Musculoskeletal: no symptoms reported Skin: no symptoms reported Psychiatric/Neurological: No Symptoms Reported Hematologic/Lymphatic: No Symptoms Reported Immunological/Allergic: no symptoms reported Past [place]-Gwdger Hx Past Med/Social Hx: Reviewed Nursing Past Med/Soc Hx Patient Social History Alcohol Use: Denies Use Recreational Drug Use: No Smoking Status: Never a Smoker 2nd Hand Smoke Exposure: No Recent Foreign Travel: No Contact w/Someone Who Travel: No Recent Infectious Disease Expo: No Recent Hopitalizations: No Immunizations Up To Date Tetanus Booster (TDap): Unknown Date of Pneumonia Vaccine: Aug 06, 2016 Date of Influenza Vaccine: Aug 04, 2019 Seasonal Allergies Seasonal Allergies: Yes Past Medical History Surgeries: Yes (HIATAL HERNIA REPAIR, CARPAL TUNNEL) Abdominal, Appendectomy, Gallbladder, Hysterectomy, Orthopedic Respiratory: Yes Asthma, COPD Currently Using CPAP: No Currently Using BIPAP: No Cardiac: No Neurological: No : No 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 Disorders: No SSIS ARCHITECT History: Hysterectomy, Menopausal Genitourinary: No Gastrointestinal: Yes Gastroesophageal Reflux Musculoskeletal: Yes Arthritis Endocrine: No HEENT: No Loss of Vision: Bilateral Hearing Impairment: Denies Cancer: No Psychosocial: Yes Anxiety, Depression Integumentary: No Blood Disorders: No Adverse Reaction/Blood Tranf: No Family Medical History No Pertinent Family Hx Physical Exam-Suspected Sepsis Physical Exam Vital Signs Vital Signs - First Documented 03/30/20 03/30/20 07:01 07:15 Temp 38.3 Pulse 98 Resp 20 B/P (MAP) 118/75 (89) Pulse Ox 97 O2 Delivery Room Air O2 Flow Rate 2.00 Capillary Refill : Less Than 3 Seconds Blood Pressure Mean: 89 Height, Weight, BMI Height: 5'2.00" Weight: 177lbs. 0oz. 80.991420wi; 32.00 BMI Method:Stated General Appearance: WD/WN, Mild Distress HEENT: PERRL/EOMI, Normal ENT Inspection, Other (oropharynx somewhat dry) Neck: Normal Inspection Respiratory: No Accessory Muscle Use, No Respiratory Distress, Crackles (left base), Decreased Breath Sounds (left base); No Wheezing Cardiovascular: No Edema, No Murmur, Normal Peripheral Pulses, Tachycardia Extremity: Normal Inspection, Non Tender, No Pedal Edema Neurologic/Psychiatric: Alert, Oriented x3, No Motor/Sensory Deficits, Normal Mood/Affect, administrative dietitian II-XII Norm as Tested Skin: normal color, warm/dry Focused Exam Lactate Level 03/30/20 07:15: Lactic Acid Level 3.14*H Lactic Acid Level Laboratory Tests Test 03/30/20 07:15 Lactic Acid Level 3.14 MMOL/L (0.50-2.00) *H Progress/Results/Core Measures Suspected Sepsis Recent Fever Within 48 Hours: Yes Infection Criteria Present: Suspected New Infection New/Unexplained Altered Menta: No Sepsis Screen: Possible Severe Sepsis Risk SIRS Temperature: Pulse: 98 Respiratory Rate: 20 Laboratory Tests 03/30/20 07:15: White Blood Count 9.9 Blood Pressure 118 /75 Mean: 89 03/30/20 07:15: Lactic Acid Level 3.14*H Laboratory Tests 03/30/20 07:15: Creatinine 1.02, INR Comment 1.0, Platelet Count 257, Total Bilirubin 0.9 Results/Orders Lab Results Laboratory Tests Test 03/30/20 07:11 03/30/20 07:15 03/30/20 07:50 Range/Units White Blood Count 9.9 4.3-11.0 10^3/uL Red Blood Count 4.59 4.35-5.85 10^6/uL Hemoglobin 13.4 11.5-16.0 G/DL Hematocrit 41 35-52 % Mean Corpuscular Volume 89 80-99 FL Mean Corpuscular Hemoglobin 29 25-34 PG Mean Corpuscular Hemoglobin Concent 33 32-36 G/DL Red Cell Distribution Width 14.6 H 10.0-14.5 % Platelet Count 257 130-400 10^3/uL Mean Platelet Volume 10.2 7.4-10.4 FL Neutrophils (%) (Auto) 92 H 42-75 % Lymphocytes (%) (Auto) 3 L 12-44 % Monocytes (%) (Auto) 4 0-12 % Eosinophils (%) (Auto) 0 0-10 % Basophils (%) (Auto) 0 0-10 % Neutrophils # (Auto) 9.1 H 1.8-7.8 X 10^3 Lymphocytes # (Auto) 0.3 L 1.0-4.0 X 10^3 Monocytes # (Auto) 0.4 0.0-1.0 X 10^3 Eosinophils # (Auto) 0.0 0.0-0.3 10^3/uL Basophils # (Auto) 0.0 0.0-0.1 10^3/uL Neutrophils % (Manual) 79 % Lymphocytes % (Manual) 6 % Monocytes % (Manual) 3 % Eosinophils % (Manual) 0 % Basophils % (Manual) 0 % Band Neutrophils 12 % Elliptocytes SLIGHT Prothrombin Time 13.3 12.2-14.7 SEC INR Comment 1.0 0.8-1.4 Activated Partial Thromboplast Time 26 24-35 SEC Sodium Level 142 135-145 MMOL/L Potassium Level 3.3 L 3.6-5.0 MMOL/L Chloride Level 111 H 98-107 MMOL/L Carbon Dioxide Level 19 L 21-32 MMOL/L Anion Gap 12 5-14 MMOL/L Blood Urea Nitrogen 15 7-18 MG/DL Creatinine 1.02 0.60-1.30 MG/DL Estimat Glomerular Filtration Rate 55 BUN/Creatinine Ratio 15 Glucose Level 120 H 70-105 MG/DL Lactic Acid Level 3.14 *H 0.50-2.00 MMOL/L Calcium Level 9.8 8.5-10.1 MG/DL Corrected Calcium 9.8 8.5-10.1 MG/DL Total Bilirubin 0.9 0.1-1.0 MG/DL Aspartate Amino Transf (AST/SGOT) 18 5-34 U/L Alanine Aminotransferase (ALT/SGPT) 22 0-55 U/L Alkaline Phosphatase 66 40-136 U/L Lactate Dehydrogenase 210 125-220 U/L C-Reactive Protein High Sensitivity 0.41 0.00-0.50 MG/DL Total Protein 6.8 6.4-8.2 GM/DL Albumin 4.0 3.2-4.5 GM/DL Procalcitonin 0.31 H <0.10 NG/ML Urine Color YELLOW Urine Clarity CLEAR Urine pH 6.0 5-9 Urine Specific [place] 1.015 L 1.016-1.022 Urine Protein NEGATIVE NEGATIVE Urine Glucose (UA) NEGATIVE NEGATIVE Urine Ketones NEGATIVE NEGATIVE Urine Nitrite NEGATIVE NEGATIVE Urine Bilirubin NEGATIVE NEGATIVE Urine Urobilinogen 0.2 < = 1.0 MG/DL Urine Leukocyte Esterase NEGATIVE NEGATIVE Urine RBC (Auto) NEGATIVE NEGATIVE Urine RBC 0-2 /HPF Urine WBC 2-5 /HPF Urine Squamous Epithelial Cells 0-2 /HPF Urine Crystals NONE /LPF Urine Bacteria TRACE /HPF Urine Casts NONE /LPF Urine Mucus NEGATIVE /LPF Urine Culture Indicated CULTURE PENDING Micro Results Microbiology 03/30/20 Influenza Types A,B Antigen (MAL) - Final, Complete My Orders Orders - OBDULIO FOSTER MD Cbc With Automated Diff (03/30/20 07:20) Comprehensive Metabolic Panel (03/30/20 07:20) Blood Culture (03/30/20 07:20) Sputum Culture (03/30/20 07:20) Urinalysis (03/30/20 07:20) Urine Culture (03/30/20 07:20) Protime With Inr (03/30/20 07:20) Partial Thromboplastin Time (03/30/20 07:20) Chest 1 View, Ap/Pa Only (03/30/20 07:20) Ed Iv/Invasive Line Start (03/30/20 07:20) Ed Iv/Invasive Line Start (03/30/20 07:20) Vital Signs Adult Sepsis Patie Q15M (03/30/20 07:20) O2 (03/30/20 07:20) Remove Rings In Anticipation O (03/30/20 07:20) Lactic Acid Analyzer (03/30/20 07:20) Influenza A And B Antigens (03/30/20 07:20) Procalcitonin (Pct) (03/30/20 07:20) Hs C Reactive Protein (03/30/20 07:20) LDH (03/30/20 07:20) Ns Iv 1000 Ml (Sodium Chloride 0.9%) (03/30/20 07:21) Coronavirus Sars-Cov-2 So 2018 (03/30/20 07:22) Manual Differential (03/30/20 07:15) Acetaminophen Tablet (Tylenol Tablet) (03/30/20 08:15) Respiratory Virus Panel By Pcr (03/30/20 08:50) Piperacillin Sodium/Tazobactam (Zosyn Vi (03/30/20 09:00) Medications Given in ED Current Medications Medications Dose Ordered Sig/Basilio Route Start Time Stop Time Status Last Admin Dose Admin Acetaminophen 1,000 mg ONCE ONCE PO 03/30/20 08:15 03/30/20 08:16 DC 03/30/20 08:15 1,000 MG Sodium Chloride 1,000 ml @ 0 mls/hr Q0M ONCE IV 03/30/20 07:21 03/30/20 07:23 DC 03/30/20 07:30 0 MLS/HR Vital Signs/I&O 03/30/20 03/30/20 03/30/20 03/30/20 07:01 07:15 08:15 08:15 Temp 38.3 38.2 Pulse 98 85 Resp 20 19 B/P (MAP) 118/75 (89) 104/56 Pulse Ox 97 98 O2 Delivery Room Air Nasal Cannula Nasal Cannula O2 Flow Rate 2.00 2.00 Capillary Refill : Less Than 3 Seconds Blood Pressure Mean: 89 Progress Note : Time: 09:03 Progress Note Septic workup was pursued. Tylenol was given for fever. Workup was relatively unremarkable except for some questionable basilar infiltrates versus atelectasis. She did have diminished breath sounds and crackles in the left lower lung. This is suspicious for left lower lobe pneumonia. Influenza screen was negative. COVID-19 screening is pending. Patient received a liter of IV fluid. She was not wheezing and did not require inhaled treatments or steroids. Case was discussed with Dr. García who requested she be admitted to cardiac stepdown with vancomycin and Zosyn. Patient does have exposure risk factors in that she had an ER visit on March 11 and stayed at [facility] with her mother last week. Patient requests a full CODE STATUS. Dr. García also requested a full respiratory viral panel. Diagnostic Imaging Diagonstic Imaging: Xray Plain Films/CT/US/NM/MRI: chest Comments Chest x-ray viewed by me and report reviewed. See report below: NAME: DEON SERVIN [facility] REC#: [id number] PT STATUS: REG ER : 1955 PHYSICIAN: OBDULIO FOSTER MD ADMIT DATE: 03/30/20/ER Draft Date of Exam:03/30/20 CHEST 1 VIEW, AP/PA ONLY INDICATION: Shortness of air and cough. TIME OF EXAM: 7:48 AM. COMPARISON: 03/11/2020. FINDINGS: The heart size is stable. There is right convexity thoracic scoliotic curvature. There may be some minimal infiltrate or atelectasis in the right base, similar to the prior exam. The left lung is clear. No effusion or pneumothorax is seen. IMPRESSION: Minimal right basilar infiltrate or atelectasis, similar to the examination from 03/11/2020. Dictated on workstation # [id number] Dict: 03/30/20 0830 Trans: 03/30/20 0834 [id number] Interpreted by: JHON HAY MD Departure Communication (Admissions) Time/Spoke to Admitting Phy: 08:55 Dr. Powers Time/Spoke to Consulting Phy: 08:50 Dr. García Impression Primary Impression: Left lower lobe pneumonia Qualified Codes: J18.1 - Lobar pneumonia, unspecified organism Additional Impression: Febrile illness Disposition: ADMITTED INPATIENT Condition: Improved Admissions Decision to Admit Reason: Admit from ER (General) Decision to Admit/Date: March 30, 2020 Time/Decision to Admit Time: 08:50 Departure-Patient Inst. Referrals: [facility] (PCP/Family) Primary Care Physician OBDULIO FOSTER MD March 30, 2020 08:21
--- NOTE | 2020-03-30 08:34 | Diagnostic Imaging Report ---
INDICATION: Shortness of air and cough. TIME OF EXAM: 7:48 AM. COMPARISON: 03/11/2020. FINDINGS: The heart size is stable. There is right convexity thoracic scoliotic curvature. There may be some minimal infiltrate or atelectasis in the right base, similar to the prior exam. The left lung is clear. No effusion or pneumothorax is seen. IMPRESSION: Minimal right basilar infiltrate or atelectasis, similar to the examination from 03/11/2020. Dictated by: Dictated on workstation # [id number]
--- NOTE | 2020-03-30 08:50 | NUR ---
Per pt request pt keys, taken to family member in ER parking lot by [facility].
[2020-03-30] MEDS ORDERED: PIPERACILLIN SODIUM/TAZOBACTAM 4.5 GM in NS (IVPB) 100 ML IV ONE (09:00)
--- NOTE | 2020-03-30 09:10 | NUR ---
Resp. pannel swab obtained et sent to lab at 0910.
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
[2020-03-30] MEDS ORDERED: KCL 20 MEQ TAB (K-DUR) PO NR (10:33)
[2020-03-30] MEDS ORDERED: CATHETER FLUSH 10 ML SYR IV PRN (10:45)
[2020-03-30] MEDS ORDERED: RT-ALBUTEROL INHALER HFA (VENTOLIN HFA) 8 GM IH PRN (10:45)
[2020-03-30] MEDS ORDERED: ONDANSETRON 4 MG/2 ML (SDV) Z0FRAN IV PRN (10:45)
[2020-03-30] MEDS ORDERED: VANCOMYCIN 1500 MG/NS 500 ML IVPB IV NR ×2 (11:00)
--- NOTE | 2020-03-30 11:05 | NUR ---
VANCOMYCIN DOSING SCR 1.02; ADJ BW 62; CRCL ~ 55; BOLUS VANC 20 MG/KG X 81 KG ~ 1500 MG THEN VANC 15 MG/KG ~ 1250 MG Q24H X 2 DOSES
[2020-03-30] MEDS: ACETAMINOPHEN 500 MG TAB (TYLENOL) PO PRN ×2 (14:13→20:43)
[2020-03-30] MEDS ORDERED: TRZ50T PO (15:25)
[2020-03-30] MEDS ORDERED: MECL-149 PO (15:25)
[2020-03-30] MEDS ORDERED: GABA300C PO (15:28)
[2020-03-30] MEDS ORDERED: IPRA3AMP31 IH (15:29)
--- NOTE | 2020-03-30 15:30 | NUR ---
SPOKE WITH THE PT, CALLED [facility] AND GOT A MED LIST AND CALLED [facility] IN [place] TO COMPLETE THE MED REC SEROQUEL 100MG- THE DIRECTIONS SHOW 1.5 TABS HS HOWEVER THE PT IS TAKING JUST 1 TAB HS THE FOLLOWING ARE FILL DATES FROM [facility]: 10-12-2019 DUONEB #180 11-05-2019 GABAPENTIN 300MG #90/30DS- I DID DOCUMENT THE PAST DUE FILL ON THE MED REC 01-08-2020 SEROQUEL 100MG #135/135DS (SEE NOTE ABOVE) 02-09-2020 LEVOTHYROXINE 25MCG #30/20DS- I DID DOCUMENT THE PAST DUE FILL ON THE MED REC 03-23-2020 TRAZODONE 50MG #45/30DS 03-23-2020 MECLIZINE 25MG #60/30DS THE FOLLOWING WERE FILL THRU THE REPOSITORY AT [facility] IN [place]: 12-14-2019 FLONASE #1 12-14-2019 PROAIR #1 01-25-2020 OMEPRAZOLE 40MG #180/90DS 02-09-2020 FLUOXETINE 40MG #90/45DS 02-09-2020 ATORVASTATIN 20MG #90/90DS 03-08-2020 SPIRIVA #1 03-09-2020 CELEBREX 100MG #60/30DS ADVAIR 250/50 THE PT GETS FROM THE PALS PROGRAM OTC MEDS: SHERI CHAPIN
[2020-03-30] MEDS: RT-ALBUTEROL INHALER HFA (VENTOLIN HFA) 8 GM IH SCH ×2 (15:32→17:45)
[2020-03-30] MEDS: ENOXAPARIN 40 MG/0.4 ML (LOVENOX) SYR SQ SCH (16:24)
[2020-03-30] MEDS: PIPERACILLIN/TAZO 4.5 GM/NS 100 ML IV SCH ×4 (16:24→23:58)
--- NOTE | 2020-03-30 16:27 | History & Physical ---
HPI History of Present Illness: 64 yo female came to the ER due to dizziness, shortness of breath and headache that started early this morning. She does admit on and off dry cough for about a week. She was tested for COVID19 earlier this month, but since then has been at the hospital in [place] with her mother. No know exposures. She admits fever whi ch also started today. Source: patient Date seen by provider: March 30, 2020 Time Seen by Provider: 15:45 Attending Physician Riley Powers MD PCP [facility] Date of Admission March 30, 2020 at 09:34 Home Medications Home Medications Reviewed patient Home Medication Reconciliation performed by pharmacy medication reconciliations auto body technician and/or nursing. Patients Allergies have been reviewed. Allergies Coded Allergies: Sulfa (Sulfonamide Antibiotics) (Unverified Allergy, Unknown, 06/08/14) IFJ-Fezhmj-Cpsdic Hx Patient Social History Alcohol Use: Denies Use Recreational Drug Use: No Smoking Status: Never a Smoker 2nd Hand Smoke Exposure: No Recent Foreign Travel: No Contact w/other who traveled: No Recent Hopitalizations: No Recent Infectious Disease Expo: No Immunizations Up To Date Tetanus Booster (TDap): Unknown Date of Pneumonia Vaccine: Aug 06, 2016 Date of Influenza Vaccine: Aug 04, 2019 Past Medical History PMHx: GERD Hypothyroidism Depression PSurgHx: Cholecystectomy Hysterectomy Appendectomy Family Medical History Significant Family History: Heart Disease Review of Systems ([facility]) Constitutional: dizziness, fever EENTM: No nose congestion, No throat pain Respiratory: cough, short of breath Cardiovascular: No chest pain Gastrointestinal: No abdominal pain, No constipation, No diarrhea, No nausea, No vomiting Genitourinary: No dysuria Musculoskeletal: No joint pain Skin: No rash Reviewed Test Results Reviewed Test Results Lab Laboratory Tests Test 03/30/20 07:11 03/30/20 07:15 03/30/20 07:50 03/30/20 09:10 Range/Units Coronavirus (COVID-19)(PCR) Negative Negative White Blood Count 9.9 4.3-11.0 10^3/uL Red Blood Count 4.59 4.35-5.85 10^6/uL Hemoglobin 13.4 11.5-16.0 G/DL Hematocrit 41 35-52 % Mean Corpuscular Volume 89 80-99 FL Mean Corpuscular Hemoglobin 29 25-34 PG Mean Corpuscular Hemoglobin Concent 33 32-36 G/DL Red Cell Distribution Width 14.6 H 10.0-14.5 % Platelet Count 257 130-400 10^3/uL Mean Platelet Volume 10.2 7.4-10.4 FL Neutrophils (%) (Auto) 92 H 42-75 % Lymphocytes (%) (Auto) 3 L 12-44 % Monocytes (%) (Auto) 4 0-12 % Eosinophils (%) (Auto) 0 0-10 % Basophils (%) (Auto) 0 0-10 % Neutrophils # (Auto) 9.1 H 1.8-7.8 X 10^3 Lymphocytes # (Auto) 0.3 L 1.0-4.0 X 10^3 Monocytes # (Auto) 0.4 0.0-1.0 X 10^3 Eosinophils # (Auto) 0.0 0.0-0.3 10^3/uL Basophils # (Auto) 0.0 0.0-0.1 10^3/uL Neutrophils % (Manual) 79 % Lymphocytes % (Manual) 6 % Monocytes % (Manual) 3 % Eosinophils % (Manual) 0 % Basophils % (Manual) 0 % Band Neutrophils 12 % Elliptocytes SLIGHT Prothrombin Time 13.3 12.2-14.7 SEC INR Comment 1.0 0.8-1.4 Activated Partial Thromboplast Time 26 24-35 SEC Sodium Level 142 135-145 MMOL/L Potassium Level 3.3 L 3.6-5.0 MMOL/L Chloride Level 111 H 98-107 MMOL/L Carbon Dioxide Level 19 L 21-32 MMOL/L Anion Gap 12 5-14 MMOL/L Blood Urea Nitrogen 15 7-18 MG/DL Creatinine 1.02 0.60-1.30 MG/DL Estimat Glomerular Filtration Rate 55 BUN/Creatinine Ratio 15 Glucose Level 120 H 70-105 MG/DL Lactic Acid Level 3.14 *H 0.50-2.00 MMOL/L Calcium Level 9.8 8.5-10.1 MG/DL Corrected Calcium 9.8 8.5-10.1 MG/DL Total Bilirubin 0.9 0.1-1.0 MG/DL Aspartate Amino Transf (AST/SGOT) 18 5-34 U/L Alanine Aminotransferase (ALT/SGPT) 22 0-55 U/L Alkaline Phosphatase 66 40-136 U/L Lactate Dehydrogenase 210 125-220 U/L C-Reactive Protein High Sensitivity 0.41 0.00-0.50 MG/DL Total Protein 6.8 6.4-8.2 GM/DL Albumin 4.0 3.2-4.5 GM/DL Procalcitonin 0.31 H <0.10 NG/ML Urine Color YELLOW Urine Clarity CLEAR Urine pH 6.0 5-9 Urine Specific [place] 1.015 L 1.016-1.022 Urine Protein NEGATIVE NEGATIVE Urine Glucose (UA) NEGATIVE NEGATIVE Urine Ketones NEGATIVE NEGATIVE Urine Nitrite NEGATIVE NEGATIVE Urine Bilirubin NEGATIVE NEGATIVE Urine Urobilinogen 0.2 < = 1.0 MG/DL Urine Leukocyte Esterase NEGATIVE NEGATIVE Urine RBC (Auto) NEGATIVE NEGATIVE Urine RBC 0-2 /HPF Urine WBC 2-5 /HPF Urine Squamous Epithelial Cells 0-2 /HPF Urine Crystals NONE /LPF Urine Bacteria TRACE /HPF Urine Casts NONE /LPF Urine Mucus NEGATIVE /LPF Urine Culture Indicated CULTURE PENDING Test 03/30/20 10:05 Range/Units Lactic Acid Level 1.52 0.50-2.00 MMOL/L Radiology CXR 03/30: IMPRESSION: Minimal right basilar infiltrate or atelectasis, similar to the examination from 03/11/2020. Physical Exam-(CH[facility]) Physical Exam Vital Signs VS - Last 72 Hours, by Label 03/30/20 03/30/20 03/30/20 03/30/20 07:01 07:15 08:15 08:15 Temp 38.3 38.2 Pulse 98 85 Resp 20 19 B/P (MAP) 118/75 (89) 104/56 Pulse Ox 97 98 O2 Delivery Room Air Nasal Cannula Nasal Cannula O2 Flow Rate 2.00 2.00 03/30/20 03/30/20 03/30/20 03/30/20 09:19 10:13 10:15 10:15 Temp 37.4 37.2 37.4 Pulse 94 82 Resp 18 17 B/P (MAP) 102/70 (81) 102/58 (81) Pulse Ox 96 O2 Delivery Nasal Cannula Room Air Nasal Cannula O2 Flow Rate 2.00 1.00 03/30/20 03/30/20 03/30/20 03/30/20 10:43 10:51 11:00 12:00 Pulse 83 83 79 Resp 19 21 B/P (MAP) 128/92 (104) 114/86 (95) Pulse Ox 95 96 O2 Delivery Nasal Cannula Nasal Cannula Nasal Cannula O2 Flow Rate 1.00 1.00 1.00 03/30/20 03/30/20 13:00 15:33 Pulse 84 Pulse Ox 96 O2 Delivery Nasal Cannula O2 Flow Rate 1.00 Capillary Refill : Less Than 3 Seconds General Appearance: WD/WN, no apparent distress Respiratory: decreased breath sounds (bibasilar), wheezing (faint end- expiratory wheeze on right) Cardiovascular: regular rate, rhythm, no murmur Gastrointestinal: normal bowel sounds, non tender, soft Extremities: no pedal edema Neurologic/Psychiatric: alert, normal mood/affect Skin: normal color, warm/dry Assessment/Plan Assessment/Plan Admission Status: Inpatient Order (span 2 midnights) Reason for Inpatient Admission: Severe sepsis (1) Febrile illness Status: Acute Assessment & Plan: Possible pneumonia versus viral infection, see plan under sepsis. (2) Severe sepsis Status: Acute Assessment & Plan: Febrile, HR above 90 and lactic acid above 2. However, no clear bacterial source, CXR without clear infiltrate, but clinically consistent with pneumonia, treating with Zosyn and Vancomycin. COVID19 negative, respiratory viral panel pending. Repeat lactic acid normal, has not had any hypotension. (3) COPD (chronic obstructive pulmonary disease) Status: Chronic Assessment & Plan: Pt did not report history, but outpatient clinic chart lists in problem list and she is on inhaled steroid/long acting beta agonist and anticholinergic prior to admission. Resume home inhalers. Not on home supplemental oxygen. (4) Hypothyroidism Status: Chronic Assessment & Plan: Resume home levothyroxine (5) Osteoarthritis Status: Chronic Assessment & Plan: Resume home Celecoxib Qualifiers: (6) Hyperlipidemia Status: Chronic Assessment & Plan: Resume home statin (7) GERD (gastroesophageal reflux disease) Status: Chronic Assessment & Plan: Home medication reports omeprazole 40 mg twice daily. Will start routine PPI dosing inpatient. (8) DVT prophylaxis Status: Acute Assessment & Plan: Enoxaparin Clinical Quality Measures DVT/VTE Risk/Contraindication: Risk Factor Score Per Nursin RFS Level Per Nursing on Admit: 4+=Very High RILEY POWERS MD March 30, 2020 16:27
[2020-03-30] MEDS ORDERED: FLUTICASONE NASAL SPRAY (FLONASE) 16 GM BTL NS PRN (16:30)
[2020-03-30] MEDS ORDERED: MECLIZINE 25 MG (ANTIVERT) TAB PO PRN (16:30)
[2020-03-30] MEDS: ADVAIR HFA 115/21 MCG INHALER 8 GM IH SCH (17:45)
[2020-03-30] MEDS: QUEtiapine 100 MG (SEROquel) TAB IMMEDIATE RELEASE PO SCH (20:44)
[2020-03-30] MEDS: CELECOXIB 100 MG (CeleBREX) CAP PO SCH (20:44)
[2020-03-30] MEDS: traZODone 50 MG (DESYREL) TAB PO SCH (20:44)
[2020-03-30] MEDS: GABAPENTIN 300 MG (NEURONTIN) CAP PO SCH (20:44)
[2020-03-30] MEDS: MONTELUKAST 10 MG (SINGULAIR) TAB PO SCH (20:44)
[2020-03-30] MEDS: BENZONATATE 100 MG (TESSALON) CAPSULE PO PRN (21:27)
[2020-03-31] VITALS (8 sets, daily range): BP systolic 81–118; BP diastolic 48–76
--- NOTE | 2020-03-31 05:41 | Pulmonary Consultation ---
History of Present Illness History of Present Illness Date Seen by Provider: March 31, 2020 Time Seen by Provider: 05:36 Date of Admission History of Present Illness 64yo presented to ED secondary to worsening SOB and MORRISON that started yesterday morning. COVID is negative. CXR shows infiltrate. She has had fever tm since admission is 83.3. RVP is pending. Pt was started on Vanco and Zosyn and admitted to ICU for close observation. Allergies and Home Medications Allergies Coded Allergies: Sulfa (Sulfonamide Antibiotics) (Unverified Allergy, Unknown, 06/08/14) Home Medications Albuterol Sulfate 1 Puff Puff, 2 PUFF IH Q4H PRN for SHORTNESS OF BREATH, (Reported) Atorvastatin Calcium 20 Mg Tablet, 20 MG PO HS, (Reported) Celecoxib 100 Mg Capsule, 100 MG PO BID, (Reported) Cetirizine HCl 10 Mg Tablet, 10 MG PO DAILY, (Reported) Fluoxetine HCl 40 Mg Capsule, 80 MG PO DAILY, (Reported) TAKES 2 (40MG) CAPSULES Fluticasone Propionate 16 Gm [place].susp, 2 SPRAYS NS BID PRN for ALLERGIES, (Reported) Fluticasone/Salmeterol 1 Each Blst.w.dev, 1 PUFF IH BID, (Reported) Gabapentin 300 Mg Capsule, 300 MG PO TID, (Reported) LAST FILLED 11-05-2019 #90 Ipratropium/Albuterol Sulfate 3 Ml Ampul.neb, 3 ML IH Q6H PRN for SHORTNESS OF BREATH, (Reported) Levothyroxine Sodium 25 Mcg Tablet, 37.5 MCG PO DAILY, (Reported) TAKES 1 & 1/2 (25MCG) TABLET LAST FILLED 02-09-2020 #30/20 DAY SUPPLY Meclizine HCl 25 Mg Tablet, 25 MG PO BID PRN for DIZZINESS, (Reported) Montelukast Sodium 10 Mg Tablet, 10 MG PO HS, (Reported) Multivitamin 1 Each Tablet, 1 TAB PO DAILY, (Reported) Omeprazole 40 Mg Capsule.dr, 40 MG PO BID, (Reported) Quetiapine Fumarate 100 Mg Tablet, 100 MG PO HS, (Reported) Tiotropium [place] 1 Inh Aerp, 1 CAP IH HS, (Reported) Trazodone HCl 50 Mg Tablet, 50-75 MG PO HS, (Reported) Past Yhusfsu-Lhhrxq-Ltcgjv Hx Past Med/Social Hx: Reviewed Nursing Past Med/Soc Hx Patient Social History Alcohol Use: Denies Use Recreational Drug Use: No Smoking Status: Never a Smoker 2nd Hand Smoke Exposure: No Recent Foreign Travel: No Contact w/Someone Who Travel: No Recent Infectious Disease Expo: No Recent Hopitalizations: No Immunizations Up To Date Tetanus Booster (TDap): Unknown Date of Pneumonia Vaccine: Aug 06, 2016 Date of Influenza Vaccine: Aug 04, 2019 Seasonal Allergies Seasonal Allergies: Yes Past Medical History Surgeries: Yes (HIATAL HERNIA REPAIR, CARPAL TUNNEL) Abdominal, Appendectomy, Gallbladder, Hysterectomy, Orthopedic Respiratory: Yes Asthma, COPD Currently Using CPAP: No Currently Using BIPAP: No Cardiac: No Neurological: No : No 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 Disorders: No 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 0oz. 80.301206pu; 33.29 BMI Method:Stated Exam Exam Vital Signs Date Time Temp Pulse Resp B/P (MAP) Pulse Ox O2 Delivery O2 Flow Rate FiO2 03/31/20 04:00 98 Nasal Cannula 1.00 03/31/20 04:00 36.3 03/31/20 04:00 76 20 93/48 (63) 97 Nasal Cannula 1.00 03/31/20 01:44 97 Nasal Cannula 1.00 03/31/20 01:00 80 03/31/20 00:00 96 Nasal Cannula 1.00 03/30/20 23:58 36.6 76 16 91/50 (64) 96 Nasal Cannula 1.00 03/30/20 22:22 96 Nasal Cannula 1.00 03/30/20 21:00 96 Nasal Cannula 1.00 03/30/20 20:00 97 Nasal Cannula 1.00 03/30/20 20:00 79 18 96 Nasal Cannula 1.00 03/30/20 19:44 36.6 75 18 96/61 (73) 97 Nasal Cannula 1.00 03/30/20 19:00 80 03/30/20 18:00 79 20 95 Nasal Cannula 1.00 03/30/20 17:47 Nasal Cannula 1.00 24 03/30/20 17:46 96 Nasal Cannula 1.00 03/30/20 17:00 85 24 95 Nasal Cannula 1.00 03/30/20 16:00 70 15 111/64 (80) 95 Nasal Cannula 1.00 03/30/20 16:00 95 Nasal Cannula 2.00 03/30/20 15:33 96 Nasal Cannula 1.00 03/30/20 15:00 87 30 95 Nasal Cannula 1.00 03/30/20 14:00 79 21 132/81 (98) 95 Nasal Cannula 1.00 03/30/20 13:00 84 03/30/20 13:00 84 16 123/79 (94) 95 Nasal Cannula 1.00 03/30/20 12:00 79 21 114/86 (95) 96 Nasal Cannula 1.00 03/30/20 11:00 83 19 128/92 (104) 95 Nasal Cannula 1.00 03/30/20 10:51 Nasal Cannula 1.00 03/30/20 10:43 83 03/30/20 10:15 37.4 03/30/20 10:15 Nasal Cannula 1.00 03/30/20 10:13 37.2 82 17 102/58 (81) 96 Room Air 03/30/20 09:19 37.4 94 18 102/70 (81) Nasal Cannula 2.00 03/30/20 08:15 85 19 104/56 98 Nasal Cannula 2.00 03/30/20 08:15 38.2 03/30/20 07:15 97 Nasal Cannula 2.00 03/30/20 07:01 38.3 98 20 118/75 (89) Room Air I & O 03/31/20 07:00 Intake Total 2515 ml Output Total 600 ml Balance 1915 ml Height & Weight Height: 5'2.00" Weight: 177lbs. 0oz. 80.915700qr; 33.29 BMI Method:Stated General Appearance: WD/WN, Mild Distress HEENT: PERRL/EOMI, Normal ENT Inspection, Other (oropharynx somewhat dry) Neck: Normal Inspection Respiratory: No Accessory Muscle Use, No Respiratory Distress, Crackles (left base), Decreased Breath Sounds (left base); No Wheezing Cardiovascular: No Edema, No Murmur, Normal Peripheral Pulses, Tachycardia Capillary Refill: Less Than 3 Seconds Gastrointestinal: normal bowel sounds, non tender, soft Extremity: Normal Inspection, Non Tender, No Pedal Edema Neurologic/Psychiatric: Alert, Oriented x3, No Motor/Sensory Deficits, Normal Mood/Affect, 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
[2020-03-31] MEDS ORDERED: LACTATED RINGERS 1,000 ML IV SCH (05:45)
[2020-03-31 06:24] LABS: BASOPHILS % (AUTO) 0 % (0-10); EOSINOPHILS # (AUTO) 0.2 10^3/uL (0.0-0.3); EOSINOPHILS % (AUTO) 3 % (0-10); HEMATOCRIT 34 % (35-52); HEMOGLOBIN 11.3 G/DL (11.5-16.0); LYMPHOCYTES # (AUTO) 1.9 X 10^3 (1.0-4.0); LYMPHOCYTES % (AUTO) 22 % (12-44); MEAN CORPUSCULAR HEMOGLOBIN 30 PG (25-34); MEAN CORPUSCULAR HGB CONC 33 G/DL (32-36); MEAN CORPUSCULAR VOLUME 90 FL (80-99); MEAN PLATELET VOLUME 10.2 FL (7.4-10.4); MONOCYTES # (AUTO) 0.4 X 10^3 (0.0-1.0); MONOCYTES % (AUTO) 5 % (0-12); NEUTROPHILS % (AUTO) 70 % (42-75); PLATELET COUNT 215 10^3/uL (130-400); RED CELL DISTRIBUTION WIDTH 14.6 % (10.0-14.5); WHITE BLOOD COUNT 8.6 10^3/uL (4.3-11.0)
[2020-03-31 06:45] LABS: ALANINE AMINOTRANSFERASE 14 U/L (0-55); ALBUMIN 3.1 GM/DL (3.2-4.5); ALKALINE PHOSPHATASE 53 U/L (40-136); BILIRUBIN,TOTAL 0.7 MG/DL (0.1-1.0); BUN/CREATININE RATIO 23; CALCIUM 8.5 MG/DL (8.5-10.1); CARBON DIOXIDE 23 MMOL/L (21-32); CHLORIDE 111 MMOL/L (98-107); CREATININE SERUM 0.91 MG/DL (0.60-1.30); GFR ESTIMATED > 60; GLUCOSE 99 MG/DL (70-105); MAGNESIUM 1.9 MG/DL (1.6-2.4); PHOSPHORUS 3.3 MG/DL (2.3-4.7); POTASSIUM 3.5 MMOL/L (3.6-5.0); SODIUM 140 MMOL/L (135-145); TOTAL PROTEIN 5.5 GM/DL (6.4-8.2)
[2020-03-31] MEDS: ADVAIR HFA 115/21 MCG INHALER 8 GM IH SCH ×2 (07:06→18:33)
[2020-03-31] MEDS: RT-ALBUTEROL INHALER HFA (VENTOLIN HFA) 8 GM IH SCH ×5 (07:06→21:58)
[2020-03-31] MEDS: UMECLIDINIUM BROMIDE (INCRUSE ELLIPTA) 7'S IH SCH (07:11)
[2020-03-31] MEDS: LEVOTHYROXINE 25 MCG (LEVOTHROID) TAB PO SCH (08:24)
[2020-03-31] MEDS: FLUoxetine HCL 20 MG (PROzac) CAP PO SCH (08:24)
[2020-03-31] MEDS: CELECOXIB 100 MG (CeleBREX) CAP PO SCH ×2 (08:25→20:09)
[2020-03-31] MEDS: LORATADINE (CLARITIN) 10 MG TAB PO SCH (08:25)
[2020-03-31] MEDS: GABAPENTIN 300 MG (NEURONTIN) CAP PO SCH ×3 (08:25→20:09)
[2020-03-31] MEDS: PIPERACILLIN/TAZO 4.5 GM/NS 100 ML IV SCH ×6 (08:26→23:00)
[2020-03-31] MEDS: ACETAMINOPHEN 500 MG TAB (TYLENOL) PO PRN ×2 (08:26→22:50)
[2020-03-31] MEDS: LACTATED RINGERS 1,000 ML IV SCH ×3 (08:26→22:50)
--- NOTE | 2020-03-31 10:36 | Progress Note ---
Subjective Subjective/Events-last exam Afebrile last 24 hours, feeling better although not back to baseline. Off of supplemental oxygen this morning. Focused Exam Lactate Level 03/30/20 07:15: Lactic Acid Level 3.14*H 03/30/20 10:05: Lactic Acid Level 1.52 03/31/20 06:12: Lactic Acid Level 0.76 Objective Exam Last Set of Vital Signs Vital Signs Date Time Temp Pulse Resp B/P (MAP) Pulse Ox O2 Delivery O2 Flow Rate FiO2 03/31/20 10:25 97 Room Air 03/31/20 08:00 36.2 76 22 105/69 (81) 03/31/20 07:10 03/30/20 17:47 24 Capillary Refill : Less Than 3 Seconds I&O Intake and Output 03/31/20 00:00 Intake Total 2515 ml Output Total 600 ml Balance 1915 ml Intake Oral 900 ml IV Total 1615 ml Output Urine Total 600 ml # Voids 1 # Bowel Movements 1 Daily Weight Change No General: Alert, No Acute Distress Lungs: Clear to Auscultation, Normal Air Movement Heart: Regular Rate, No Murmurs Abdomen: Normal Bowel Sounds, Soft Extremities: No Edema Neuro: Normal Speech Results/Procedures Lab Laboratory Tests 03/31/20 06:12: White Blood Count 8.6, Red Blood Count 3.81L, Hemoglobin 11.3L, Hematocrit 34L, Mean Corpuscular Volume 90, Mean Corpuscular Hemoglobin 30, Mean Corpuscular Hemoglobin Concent 33, Red Cell Distribution Width 14.6H, Platelet Count 215, Mean Platelet Volume 10.2, Neutrophils (%) (Auto) 70, Lymphocytes (%) (Auto) 22, Monocytes (%) (Auto) 5, Eosinophils (%) (Auto) 3, Basophils (%) (Auto) 0, Neutrophils # (Auto) 6.0, Lymphocytes # (Auto) 1.9, Monocytes # (Auto) 0.4, Eosinophils # (Auto) 0.2, Basophils # (Auto) 0.0, Sodium Level 140, Potassium Level 3.5L, Chloride Level 111H, Carbon Dioxide Level 23, Anion Gap 6, Blood Urea Nitrogen 21H, Creatinine 0.91, Estimat Glomerular Filtration Rate > 60, BUN/Creatinine Ratio 23, Glucose Level 99, Lactic Acid Level 0.76, Calcium Level 8.5, Corrected Calcium 9.2, Phosphorus Level 3.3, Magnesium Level 1.9, Total Bilirubin 0.7, Aspartate Amino Transf (AST/SGOT) 11, Alanine Aminotransferase (ALT/SGPT) 14, Alkaline Phosphatase 53, B-Type Natriuretic Peptide 22.5, Total Protein 5.5L, Albumin 3.1L Microbiology 03/30/20 Urine Culture - Final, Complete 3 or more isolates 03/30/20 Influenza Types A,B Antigen (MAL) - Final, Complete Radiology CXR 03/30: IMPRESSION: Minimal right basilar infiltrate or atelectasis, similar to the examination from 03/11/2020. Assessment/Plan Assessment/Plan (1) Febrile illness Status: Acute Assessment & Plan: Possible pneumonia versus viral infection, see plan under sepsis. (2) Severe sepsis Status: Resolved Assessment & Plan: Febrile, HR above 90 and lactic acid above 2. However, no clear bacterial source, CXR without clear infiltrate, but clinically consistent with pneumonia, treating with Zosyn and Vancomycin. COVID19 negative, respiratory viral panel pending. Repeat lactic acid normal, has not had any hypotension. 03/31 continued symptomatic improvement, afebrile last 24 hours, transfer to floor. (3) COPD (chronic obstructive pulmonary disease) Status: Chronic Assessment & Plan: Pt did not report history, but outpatient clinic chart lists in problem list and she is on inhaled steroid/long acting beta agonist and anticholinergic prior to admission. Resume home inhalers. Not on home supplement al oxygen. (4) Hypothyroidism Status: Chronic Assessment & Plan: Resume home levothyroxine (5) Osteoarthritis Status: Chronic Assessment & Plan: Resume home Celecoxib Qualifiers: (6) Hyperlipidemia Status: Chronic Assessment & Plan: Resume home statin (7) GERD (gastroesophageal reflux disease) Status: Chronic Assessment & Plan: Home medication reports omeprazole 40 mg twice daily. Will start routine PPI dosing inpatient. (8) DVT prophylaxis Status: Acute Assessment & Plan: Enoxaparin Clinical Quality Measures DVT/VTE Risk/Contraindication: Risk Factor Score Per Nursin RFS Level Per Nursing on Admit: 4+=Very High RILEY BENTON MD March 31, 2020 10:36
[2020-03-31] MEDS ORDERED: VANCOMYCIN 1250 MG/NS 250 ML IVPB IV SCH ×2 (11:00)
[2020-03-31 12:18] LABS: RSV PCR TEST Not Detected (Not Detected)
--- NOTE | 2020-03-31 12:19 | NUR ---
PATIENT TRANSFERRED TO ROOM 404 VIA WHEELCHAIR BY ICU PCT. TELEPHONE REPORT RECEIVED FROM WORKERS COMPENSATION COORDINATOR EVELYNE. IVF AND ANTIBIOTIC RESTARTED. PATIENT DENIES ANY NEEDS AT THIS TIME. WILL CONTINUE TO MONITOR.
[2020-03-31] MEDS: ENOXAPARIN 40 MG/0.4 ML (LOVENOX) SYR SQ SCH (13:50)
[2020-03-31] MEDS: traZODone 50 MG (DESYREL) TAB PO SCH (20:09)
[2020-03-31] MEDS: QUEtiapine 100 MG (SEROquel) TAB IMMEDIATE RELEASE PO SCH (20:09)
[2020-03-31] MEDS: MONTELUKAST 10 MG (SINGULAIR) TAB PO SCH (20:09)
[2020-03-31] MEDS: BENZONATATE 100 MG (TESSALON) CAPSULE PO PRN (22:49)
[2020-04-01] MEDS: RT-ALBUTEROL INHALER HFA (VENTOLIN HFA) 8 GM IH SCH ×3 (02:17→09:55)
[2020-04-01 03:38] VITALS: BP 100/60
[2020-04-01 05:13] LABS: HEMOGLOBIN 9.8 G/DL (11.5-16.0); MEAN PLATELET VOLUME 10.1 FL (7.4-10.4); RED CELL DISTRIBUTION WIDTH 14.7 % (10.0-14.5); WHITE BLOOD COUNT 5.5 10^3/uL (4.3-11.0)
[2020-04-01 05:26] LABS: CHLORIDE 93 MMOL/L (98-107); POTASSIUM 3.4 MMOL/L (3.6-5.0)
[2020-04-01 05:28] LABS: CALCIUM 6.8 MG/DL (8.5-10.1); GLUCOSE 93 MG/DL (70-105)
[2020-04-01 05:29] LABS: CARBON DIOXIDE 15 MMOL/L (21-32)
[2020-04-01 05:31] LABS: SODIUM 162 MMOL/L (135-145)
[2020-04-01 05:32] LABS: CREATININE SERUM 0.68 MG/DL (0.60-1.30); GFR ESTIMATED > 60
[2020-04-01 05:33] LABS: BUN/CREATININE RATIO 15
[2020-04-01] MEDS: ADVAIR HFA 115/21 MCG INHALER 8 GM IH SCH (06:08)
[2020-04-01] MEDS: UMECLIDINIUM BROMIDE (INCRUSE ELLIPTA) 7'S IH SCH (06:08)
[2020-04-01] MEDS: PIPERACILLIN/TAZO 4.5 GM/NS 100 ML IV SCH ×2 (06:18)
--- NOTE | 2020-04-01 06:21 | Pulmonary Progress Note ---
Subjective Time Seen by a Provider: 06:21 Sepsis Event Evaluation Height, Weight, BMI Height: 5'2.00" Weight: 177lbs. 0oz. 80.449292dh; 33.29 BMI Method:Stated Focused Exam Lactate Level 03/30/20 07:15: Lactic Acid Level 3.14*H 03/30/20 10:05: Lactic Acid Level 1.52 03/31/20 06:12: Lactic Acid Level 0.76 Exam Exam Vital Signs Date Time Temp Pulse Resp B/P (MAP) Pulse Ox O2 Delivery O2 Flow Rate FiO2 04/01/20 06:11 95 Room Air 04/01/20 06:09 95 Room Air 04/01/20 06:08 95 Room Air 04/01/20 03:38 36.4 74 18 100/60 (73) 95 Room Air 04/01/20 02:18 94 Room Air 03/31/20 23:30 36.6 79 18 102/62 (75) 94 Room Air 03/31/20 21:58 93 Room Air 03/31/20 19:42 Room Air 03/31/20 19:28 36.6 77 18 112/76 (88) 96 Room Air 03/31/20 18:31 93 Room Air 03/31/20 16:05 36.8 79 18 105/66 (79) 94 Room Air 03/31/20 15:10 94 Room Air 03/31/20 12:20 37.0 76 18 108/69 (82) 93 Room Air 03/31/20 12:00 36.7 76 19 81/53 (62) 94 Room Air 03/31/20 11:51 96 Room Air 03/31/20 11:30 78 25 118/70 (86) 92 Room Air 03/31/20 10:25 97 Room Air 03/31/20 09:00 95 Room Air 03/31/20 08:00 36.2 76 22 105/69 (81) 96 Room Air 03/31/20 08:00 95 Room Air 03/31/20 07:10 95 Room Air 03/31/20 07:09 95 Room Air 03/31/20 07:06 95 Room Air 03/31/20 07:01 84 I & O 04/01/20 07:00 Intake Total 2182.5 ml Output Total 750 ml Balance 1432.5 ml Height & Weight Height: 5'2.00" Weight: 177lbs. 0oz. 80.046986ze; 33.29 BMI Method:Stated General Appearance: WD/WN, Mild Distress HEENT: PERRL/EOMI, Normal ENT Inspection, Other (oropharynx somewhat dry) Neck: Normal Inspection Respiratory: No Accessory Muscle Use, No Respiratory Distress, Crackles (left base), Decreased Breath Sounds (left base); No Wheezing Cardiovascular: No Edema, No Murmur, Normal Peripheral Pulses, Tachycardia Capillary Refill: Less Than 3 Seconds Gastrointestinal: normal bowel sounds, non tender, soft Extremity: Normal Inspection, Non Tender, No Pedal Edema Neurologic/Psychiatric: Alert, Oriented x3, No Motor/Sensory Deficits, Normal Mood/Affect, 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 Will restart -Repeat PCT -repeat CXR -COVID is negative -RVP - Negative urine and strep legionella ag-- Negative LALITHA SQUIRES DO April 01, 2020 06:21
[2020-04-01 06:57] LABS: CHLORIDE 111 MMOL/L (98-107); POTASSIUM 3.6 MMOL/L (3.6-5.0); SODIUM 140 MMOL/L (135-145)
[2020-04-01 06:58] LABS: CALCIUM 8.6 MG/DL (8.5-10.1)
[2020-04-01 06:59] LABS: GLUCOSE 104 MG/DL (70-105)
[2020-04-01 07:00] LABS: CARBON DIOXIDE 22 MMOL/L (21-32)
[2020-04-01] MEDS ORDERED: PIPERACILLIN/TAZO 4.5 GM/NS 100 ML IV NR ×2 (07:00)
[2020-04-01 07:03] LABS: BUN/CREATININE RATIO 14; CREATININE SERUM 0.78 MG/DL (0.60-1.30); GFR ESTIMATED > 60
[2020-04-01 07:51] VITALS: BP 131/73
--- NOTE | 2020-04-01 07:59 | Diagnostic Imaging Report ---
INDICATION: Pneumonia. Single AP view of the chest is obtained with comparison made study of 03/30/2020. FINDINGS: Heart size and pulmonary vascularity are within normal limits, and the lungs are clear, bilaterally. IMPRESSION: Unremarkable chest. Dictated by: Dictated on workstation # [id number]
--- NOTE | 2020-04-01 08:07 | NUR ---
ZOSYN INFUSING AT THIS TIME.
[2020-04-01] MEDS: GABAPENTIN 300 MG (NEURONTIN) CAP PO SCH (08:17)
[2020-04-01] MEDS: LEVOTHYROXINE 25 MCG (LEVOTHROID) TAB PO SCH (08:17)
[2020-04-01] MEDS: FLUoxetine HCL 20 MG (PROzac) CAP PO SCH (08:17)
[2020-04-01] MEDS: CELECOXIB 100 MG (CeleBREX) CAP PO SCH (08:17)
[2020-04-01] MEDS: LORATADINE (CLARITIN) 10 MG TAB PO SCH (08:17)
[2020-04-01] MEDS: ACETAMINOPHEN 500 MG TAB (TYLENOL) PO PRN (08:18)
[2020-04-01] MEDS ORDERED: CEFD300C3 PO (09:37)
[2020-04-01] MEDS ORDERED: OMEP40CA27 PO (09:37)
--- NOTE | 2020-04-01 09:44 | Discharge Summary ---
Discharge Summary Hospital Course Problems/Diagnosis: (1) Febrile illness Status: Acute Assessment & Plan: Possible pneumonia versus viral infection, see plan under sepsis. (2) Severe sepsis Status: Resolved Resolution Date/Time: 03/30/20 @ 10:36 Assessment & Plan: Febrile, HR above 90 and lactic acid above 2. However, no clear bacterial source, CXR without clear infiltrate, but clinically consistent with pneumonia, treating with Zosyn and Vancomycin. COVID19 negative, respiratory viral panel pending. Repeat lactic acid normal, has not had any hypotension. 03/31 continued symptomatic improvement, afebrile last 24 hours, transfer to floor. 04/01 remained afebrile and off of supplemental oxygen, discharged with 7 days of cefdinir. Viral respiratory panel neg. Strep and legionella antigens neg. (3) COPD (chronic obstructive pulmonary disease) Status: Chronic Assessment & Plan: Pt did not report history, but outpatient clinic chart lists in problem list and she is on inhaled steroid/long acting beta agonist and anti cholinergic prior to admission. Resumed home inhalers. Not on home supplemental oxygen. (4) Hypothyroidism Status: Chronic Assessment & Plan: Resume home levothyroxine (5) Osteoarthritis Status: Chronic Assessment & Plan: Resume home Celecoxib Qualifiers: (6) Hyperlipidemia Status: Chronic Assessment & Plan: Resume home statin (7) GERD (gastroesophageal reflux disease) Status: Chronic Assessment & Plan: Home medication reports omeprazole 40 mg twice daily. Will start routine PPI dosing inpatient. (8) Anemia Status: Acute Assessment & Plan: Acute normocytic anemia, unclear etiology. Stool occult blood testing ordered but not yet done at d/c, needs outpatient follow up to recheck hemoglobin and pursue work-up if persistent. Hospital Course Date of Admission: March 30, 2020 at 09:34 Admission Diagnosis : Family Physician/Provider: Kelechi Lan [facility] Date of Discharge: 04/01/20 Discharge Diagnosis: See problem list Hospital Course: See problem list Labs and Pending Lab Test: Laboratory Tests 04/01/20 04:35: White Blood Count 5.5, Red Blood Count 3.31L, Hemoglobin 9.8L, Hematocrit 31L, Mean Corpuscular Volume 92, Mean Corpuscular Hemoglobin 30, Mean Corpuscular Hemoglobin Concent 32, Red Cell Distribution Width 14.7H, Platelet Count 175, Mean Platelet Volume 10.1, Sodium Level 162#*H, Potassium Level 3.4L, Chloride Level 93L, Carbon Dioxide Level 15L, Anion Gap 54H, Blood Urea Nitrogen 10, Creatinine 0.68, Estimat Glomerular Filtration Rate > 60, BUN/Creatinine Ratio 15, Glucose Level 93, Calcium Level 6.8L 04/01/20 06:30: Sodium Level 140, Potassium Level 3.6, Chloride Level 111#H, Carbon Dioxide Level 22, Anion Gap 7, Blood Urea Nitrogen 11, Creatinine 0.78, Estimat Glomerular Filtration Rate > 60, BUN/Creatinine Ratio 14, Glucose Level 104, Calcium Level 8.6, Procalcitonin 1.00H Microbiology 03/30/20 Urine Culture - Final, Complete 3 or more isolates 03/30/20 Blood Culture - Preliminary, Resulted No growth 03/30/20 Influenza Types A,B Antigen (MAL) - Final, Complete Home Meds Active Cefdinir 300 Mg Capsule 300 Mg PO BID Omeprazole 40 Mg Capsule.dr 40 Mg PO DAILY Reported Iprat-Albut 0.5-3(2.5) mg/3 ml (Ipratropium/Albuterol Sulfate) 3 Ml Ampul.neb 3 Ml IH Q6H PRN Neurontin (Gabapentin) 300 Mg Capsule 300 Mg PO TID LAST FILLED 11-05-2019 #90 Meclizine HCl 25 Mg Tablet 25 Mg PO BID PRN Trazodone HCl 50 Mg Tablet 50-75 Mg PO HS Celebrex (Celecoxib) 100 Mg Capsule 100 Mg PO BID Seroquel (Quetiapine Fumarate) 100 Mg Tablet 100 Mg PO HS Advair 250-50 Diskus (Fluticasone/Salmeterol) 1 Each Blst.w.dev 1 Puff IH BID Proair Hfa (Albuterol Sulfate) 1 Puff Puff 2 Puff IH Q4H PRN Atorvastatin Calcium 20 Mg Tablet 20 Mg PO HS Levothyroxine Sodium 25 Mcg Tablet 37.5 Mcg PO DAILY TAKES 1 & 1/2 (25MCG) TABLET LAST FILLED 02-09-2020 #30/20 DAY SUPPLY Prozac (Fluoxetine HCl) 40 Mg Capsule 80 Mg PO DAILY TAKES 2 (40MG) CAPSULES Spiriva (Tiotropium [place]) 1 Inh Aerp 1 Cap IH HS Montelukast Sodium 10 Mg Tablet 10 Mg PO HS Multivitamins (Multivitamin) 1 Each Tablet 1 Tab PO DAILY Zyrtec (Cetirizine HCl) 10 Mg Tablet 10 Mg PO DAILY Fluticasone Propionate 16 Gm [place].susp 2 Sprays NS BID PRN Assessment/Pt DC Instructions Follow up with Asher Celestin APRN at [facility] on 04/05 at 4 pm. Orders-Post D/C & Referrals Pneu Vac Indicated: Yes Discharge Physical Examination Allergies: Coded Allergies: Sulfa (Sulfonamide Antibiotics) (Unverified Allergy, Unknown, 06/08/14) General Appearance: No Apparent Distress, WD/WN Respiratory: Lungs Clear, Normal Breath Sounds Cardiovascular: Regular Rate, Rhythm, No Murmur Gastrointestinal: Normal Bowel Sounds, Non Tender, Other (distended) Skin: Normal Color, Warm/Dry Neurologic/Psychiatric: Alert, Normal Mood/Affect Copy Copies To 1: Asher Celestin APRN Clinical Quality Measures DVT/VTE Risk/Contraindication: Risk Factor Score Per Nursin RFS Level Per Nursing on Admit: 4+=Very High RILEY BENTON MD April 01, 2020 09:44
[2020-04-01 12:00] VITALS: BP 130/73
[2020-04-01 12:05] VITALS: BP 130/70
--- NOTE | 2020-04-01 12:05 | NUR ---
DEON SERVIN demonstrates understanding of discharge instructions and accurately returns instructions upon questioning. Copy of Post-Discharge Instructions given to PT. DEON SERVIN is able to manage continuing needs after discharge. Patients belongings returned to PT. Patient discharged from 404-1 on 04/01/20 at 1205. DEON SERVIN left floor via W/C, accompanied by STAFF AND SISTER PER AUTO.
[2020-04-01] MEDS ORDERED: PIPERACILLIN/TAZOBACTAM (BULK) 4.5 GM in NS (IVPB) 100 ML IV SCH (13:00)
== END 2020-04-01 12:05 | disposition home or self-care (01) | DRG 871 ==
LOC: EDUNIT# 07:01 → ER 07:02 → ICU 09:34 → 4TH 03-31 12:15
PROVIDERS: ADMIT Family Medicine; ATTEND Family Medicine
DX: A41.9 Sepsis, unspecified organism (principal); R65.20 Severe sepsis without septic shock; J18.9 Pneumonia, unspecified organism; B34.9 Viral infection, unspecified; J44.0 Chronic obstructive pulmonary disease with (acute) lower respiratory infection; E03.9 Hypothyroidism, unspecified; E78.5 Hyperlipidemia, unspecified; K21.9 Gastro-esophageal reflux disease without esophagitis; F41.9 Anxiety disorder, unspecified; F32.9 Major depressive disorder, single episode, unspecified; J30.2 Other seasonal allergic rhinitis; M19.91 Primary osteoarthritis, unspecified site; Z77.22 Contact with and (suspected) exposure to environmental tobacco smoke (acute) (chronic); Z20.828 Contact with and (suspected) exposure to other viral communicable diseases
CPT/HCPCS: 36415; 71045; 80048; 80053; 81000; 83605; 83615; 83735; 83880; 84100; 84145; 85007; 85025; 85027; 85610; 85730; 86141; 87040; 87081; 87088; 87449; 87631; 87635; 87804; 87899; 94640; 96361; 96365

== ENCOUNTER → 2020-05-17 | Outpatient (CLI) | payer OTHER ==
[~2020-05-17] MED LIST changes: +CATHETER FLUSH 10 ML SYR IV PRN; +GABA300C PO; +HOLD METFORMIN - RECEIVED CONTRAST 20 ML VIAL IV SCH; +IOHEXOL 350 MG/ML 100 ML (OMNIPAQUE 350) VIAL IV ONE; +IPRA3AMP31 IH; +MECL-149 PO; +MULT-567 PO; -MULT1TAB69 PO; +NS 100 ML (IVPB) BAG IV ONE; +TRZ50T PO
[2020-05-17 13:03] LABS: CREATININE SERUM 0.83 MG/DL (0.60-1.30); GFR ESTIMATED > 60
[2020-05-17 13:04] LABS: BUN/CREATININE RATIO 25
--- NOTE | 2020-05-17 13:51 | Diagnostic Imaging Report ---
EXAMINATION: CT Chest with intravenous contrast. TECHNIQUE: Multiple contiguous axial images were obtained through the chest after the uneventful administration of intravenous contrast. All CT scans use one or more of the following dose optimizing techniques: automated exposure control, MA and/or KvP adjustment based on a patient size and exam type, or iterative reconstruction. HISTORY: Cough and asthma COMPARISON: 03/11/2015 FINDINGS: There is a 1.9 x 1.3 cm groundglass nodule in the left upper lobe. There is an additional 11 mm groundglass nodule peripherally in the left upper lobe. Remainder of the lungs are clear. No pleural effusion. No pneumothorax. Heart size is normal. There are no coronary artery calcifications. No pericardial effusion. Aorta is normal in caliber. There is no axillary or supraclavicular lymphadenopathy. There is no mediastinal lymphadenopathy. Limited views of the upper abdomen show cysts in the liver. Gallbladder is likely absent. There are no suspicious osseus lesions. There is a chronic appearing mild T9 compression fracture. IMPRESSION: 1. There are groundglass nodules in the left upper lobe, these likely represent resolving areas of pneumonitis, but followup is recommended in 6-12 months to determine if they persist according to Fleischner Society guidelines. Dictated by: Dictated on workstation # [id number]
== END ==
LOC: RAD 12:11
PROVIDERS: ATTEND Nurse Practitioner Family
DX: J18.9 Pneumonia, unspecified organism (principal); J45.909 Unspecified asthma, uncomplicated
CPT/HCPCS: 36415; 71260; 82565; 84520; 86331; 86606

== ENCOUNTER 2020-06-28 05:35 | Outpatient (RCR) | payer OTHER ==
[~2020-06-28] VITALS: Ht 158 cm; Wt 77.7 kg
[~2020-06-28 05:35] MED LIST changes: -CATHETER FLUSH 10 ML SYR IV PRN; -HOLD METFORMIN - RECEIVED CONTRAST 20 ML VIAL IV SCH; -IOHEXOL 350 MG/ML 100 ML (OMNIPAQUE 350) VIAL IV ONE; -NS 100 ML (IVPB) BAG IV ONE
== END 2020-06-28 13:33 | disposition home or self-care (01) ==
LOC: PREOP 05:35
PROVIDERS: ATTEND Internal Medicine Critical Care Medicine
DX: Z01.818 Encounter for other preprocedural examination (principal); Z20.828 Contact with and (suspected) exposure to other viral communicable diseases
CPT/HCPCS: 87635

== ENCOUNTER 2020-06-30 06:58 | Day surgery (SDC) | payer OTHER ==
[~2020-06-30] VITALS: Ht 158 cm; Wt 77.7 kg
[2020-06-30] VITALS (9 sets, daily range): BP systolic 88–113; BP diastolic 46–72
[2020-06-30] MEDS ORDERED: LIDOCAINE PF 2% 5 ML (XYLOCAINE) VIAL INJ ONE (06:59)
[2020-06-30] MEDS ORDERED: LIDOCAINE JELLY 2% 6 ML SYRINGE TOP ONE (06:59)
[2020-06-30] MEDS ORDERED: LIDOCAINE PF 1% 2 ML VIAL IJ ONE (06:59)
[2020-06-30] MEDS ORDERED: NS IV 500 ML 500 ML IV PRN (07:07)
[2020-06-30] MEDS ORDERED: NS IV 500 ML 500 ML ONE (07:08)
[2020-06-30] MEDS ORDERED: fentaNYL INJECTION 100 MCG/2 ML AMP IVP ONE (07:15)
[2020-06-30] MEDS ORDERED: fentaNYL INJECTION 100 MCG/2 ML AMP ONE (07:32)
[2020-06-30] MEDS ORDERED: MIDAZOLAM 5 MG/5 ML (VERSED) VIAL ONE (07:33)
[2020-06-30] MEDS: MIDAZOLAM 5 MG/5 ML (VERSED) VIAL IV PRN ×2 (07:43→07:45)
--- NOTE | 2020-06-30 10:47 | Diagnostic Imaging Report ---
INDICATION: Fluoroscopy during bronchoscopy. Fluoroscopy was provided during bronchoscopy. 14 seconds of fluoroscopic time was utilized. A single image was obtained. IMPRESSION: Fluoroscopy during bronchoscopy. Dictated by: Dictated on workstation # [id number]
== END 2020-06-30 08:50 | disposition home or self-care (01) ==
LOC: ENDO 06:58
PROVIDERS: ATTEND Internal Medicine Critical Care Medicine
DX: J45.909 Unspecified asthma, uncomplicated (principal); Z87.01 Personal history of pneumonia (recurrent); E03.9 Hypothyroidism, unspecified; G89.29 Other chronic pain; E78.5 Hyperlipidemia, unspecified; Z79.899 Other long term (current) drug therapy; Z79.890 Hormone replacement therapy; Z88.2 Allergy status to sulfonamides
CPT/HCPCS: 76000; 87015; 87070; 87101; 87116; 87205; 87206; 94640

== ENCOUNTER 2020-07-28 09:46 | Inpatient (IN) | payer OTHER ==
[~2020-07-28] VITALS: Ht 157.5 cm; Wt 80.8 kg
[~2020-07-28 09:46] MED LIST changes: -CETI10TA21 PO; +CETI10TA49 PO
[2020-07-28] MEDS ORDERED: ACETAMINOPHEN 500 MG TAB (TYLENOL) ONE (10:18)
[2020-07-28 10:29] LABS: BASOPHILS # (AUTO) 0.1 10^3/uL (0.0-0.1); BASOPHILS % (AUTO) 0 % (0-10); EOSINOPHILS % (AUTO) 0 % (0-10); HEMATOCRIT 42 % (35-52); HEMOGLOBIN 13.9 g/dL (11.5-16.0); LYMPHOCYTES # (AUTO) 0.4 10^3/uL (1.0-4.0); LYMPHOCYTES % (AUTO) 4 % (12-44); MEAN CORPUSCULAR HEMOGLOBIN 29 pg (25-34); MEAN CORPUSCULAR HGB CONC 33 g/dL (32-36); MEAN CORPUSCULAR VOLUME 87 fL (80-99); MEAN PLATELET VOLUME 10.1 fL (9.0-12.2); MONOCYTES # (AUTO) 0.6 10^3/uL (0.0-1.0); MONOCYTES % (AUTO) 5 % (0-12); NEUTROPHILS # (AUTO) 11.5 10^3/uL (1.8-7.8); NEUTROPHILS % (AUTO) 91 % (42-75); PLATELET COUNT 213 10^3/uL (130-400); WHITE BLOOD COUNT 12.7 10^3/uL (4.3-11.0)
[2020-07-28] MEDS ORDERED: RT-ALBUTEROL INHALER HFA (VENTOLIN HFA) 18 GM IH PRN (10:30)
[2020-07-28] MEDS ORDERED: ACETAMINOPHEN 500 MG TAB (TYLENOL) PO ONE (10:30)
[2020-07-28 10:36] LABS: BILIRUBIN,URINE NEGATIVE (NEGATIVE); CLARITY,URINE SL CLOUDY; COLOR,URINE YELLOW; GLUCOSE, URINE (UA) 2+ (NEGATIVE); KETONES,URINE NEGATIVE (NEGATIVE); LEUKOCYTE ESTERASE ,URINE NEGATIVE (NEGATIVE); NITRITE,URINE NEGATIVE (NEGATIVE); PH,URINE 6.5 (5-9); PROTEIN,URINE NEGATIVE (NEGATIVE)
[2020-07-28 10:40] LABS: PROTHROMBIN TIME PATIENT 13.7 SEC (12.2-14.7)
[2020-07-28 10:41] LABS: CHLORIDE 108 MMOL/L (98-107); POTASSIUM 3.5 MMOL/L (3.6-5.0); SODIUM 138 MMOL/L (135-145)
[2020-07-28 10:42] LABS: CALCIUM 9.3 MG/DL (8.5-10.1)
[2020-07-28 10:43] LABS: GLUCOSE 131 MG/DL (70-105)
[2020-07-28 10:44] LABS: BAND NEUTROPHILS 7 %; LYMPHOCYTES % (MANUAL) 9 %; MONOCYTES % (MANUAL) 9 %; NEUTROPHILS % (MANUAL) 75 %; RBC MORPH NORMAL; TOTAL PROTEIN 6.7 GM/DL (6.4-8.2)
[2020-07-28 10:45] LABS: BILIRUBIN,TOTAL 0.9 MG/DL (0.1-1.0); CARBON DIOXIDE 20 MMOL/L (21-32)
[2020-07-28 10:47] LABS: ALKALINE PHOSPHATASE 71 U/L (40-136); GFR ESTIMATED > 60
[2020-07-28 10:47] LABS: BACTERIA,URINE TRACE /HPF; RBC,URINE 0-2 /HPF
[2020-07-28 10:48] LABS: BUN/CREATININE RATIO 14
[2020-07-28 10:50] LABS: ALANINE AMINOTRANSFERASE 46 U/L (0-55); LIPASE 14 U/L (8-78)
--- NOTE | 2020-07-28 11:00 | ED General ---
General Chief Complaint: Respiratory Problems Stated Complaint: COUGH/SOA Nursing Triage Note: ARRIVED VIA AMB WITH COMPLAINTS OF SOA, FEVER, COUGH, AND DIZZINESS STARTING EARLY THIS AM. Nursing Sepsis Screen: Possible Severe Sepsis Risk Source of Information: Patient Exam Limitations: No Limitations History of Present Illness Date Seen by Provider: Jul 28, 2020 Time Seen by Provider: 10:03 Initial Comments This 65-year-old woman presents to the emergency room with shortness of breath, cough, and fever that started in the night. She reports her cough was productive. Auction saturation is 89-91 percent on room air. Patient appears to be in mild distress. She has history of COPD and asthma. She does not use oxygen supplementation at home. She leaves the home several times a week to go take care of her mother in [place], [place]. She reports temperature this morning was greater than 101. Review of chart reveals a bronchoscopy performed by Dr. García about a month ago that revealed no significant pathology. Allergies and Home Medications Allergies Coded Allergies: Sulfa (Sulfonamide Antibiotics) (Unverified Allergy, Unknown, 06/08/14) Home Medications Albuterol Sulfate 1 Puff Puff, 2 PUFF IH Q4H PRN for SHORTNESS OF BREATH, (Reported) Atorvastatin Calcium 20 Mg Tablet, 20 MG PO HS, (Reported) Celecoxib 100 Mg Capsule, 100 MG PO BID, (Reported) Cetirizine HCl 10 Mg Tablet, 10 MG PO DAILY, (Reported) Fluoxetine HCl 40 Mg Capsule, 80 MG PO DAILY, (Reported) TAKES 2 (40MG) CAPSULES Fluticasone Propionate 16 Gm [place].susp, 2 SPRAYS NS BID PRN for ALLERGIES, (Reported) Fluticasone/Salmeterol 1 Each Blst.w.dev, 1 PUFF IH BID, (Reported) Gabapentin 300 Mg Capsule, 300 MG PO TID, (Reported) LAST FILLED 11-05-2019 #90 Ipratropium/Albuterol Sulfate 3 Ml Ampul.neb, 3 ML IH Q6H PRN for SHORTNESS OF BREATH, (Reported) Levothyroxine Sodium 25 Mcg Tablet, 37.5 MCG PO DAILY, (Reported) Meclizine HCl 25 Mg Tablet, 25 MG PO BID PRN for DIZZINESS, (Reported) Montelukast Sodium 10 Mg Tablet, 10 MG PO HS, (Reported) Multivitamin 1 Each Tablet, 1 TAB PO DAILY, (Reported) Quetiapine Fumarate 100 Mg Tablet, 100 MG PO HS, (Reported) Tiotropium [place] 1 Inh Aerp, 1 CAP IH HS, (Reported) Trazodone HCl 50 Mg Tablet, 50-75 MG PO HS, (Reported) Patient Home Medication List Home Medication List Reviewed: Yes Review of Systems Review of Systems Constitutional: see HPI EENTM: no symptoms reported Respiratory: see HPI Cardiovascular: no symptoms reported Gastrointestinal: no symptoms reported Genitourinary: no symptoms reported : No Musculoskeletal: no symptoms reported Skin: no symptoms reported Psychiatric/Neurological: No Symptoms Reported Hematologic/Lymphatic: No Symptoms Reported Immunological/Allergic: no symptoms reported Past Yrqizri-Sveoko-Kyenhg Hx Past Med/Social Hx: Reviewed Nursing Past Med/Soc Hx Patient Social History Alcohol Use: Denies Use Recreational Drug Use: No Smoking Status: Never a Smoker 2nd Hand Smoke Exposure: No Recent Foreign Travel: No Contact w/Someone Who Travel: No Recent Infectious Disease Expo: No Recent Hopitalizations: No Immunizations Up To Date Tetanus Booster (TDap): Unknown Date of Pneumonia Vaccine: Aug 06, 2016 Date of Influenza Vaccine: Aug 04, 2019 Seasonal Allergies Seasonal Allergies: Yes Past Medical History Surgeries: Yes (HIATAL HERNIA REPAIR, CARPAL TUNNEL) Abdominal, Appendectomy, Gallbladder, Hysterectomy, Orthopedic Respiratory: Yes (COUGH, DYSPNEA) Asthma, COPD Currently Using CPAP: No Currently Using BIPAP: No Cardiac: No Neurological: No : No 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 Disorders: No [employer] IN[employer] History: Hysterectomy, Menopausal Genitourinary: No Gastrointestinal: Yes Gastroesophageal Reflux, Hiatal Hernia Musculoskeletal: Yes Arthritis Endocrine: Yes Hypothyroidsim HEENT: No Loss of Vision: Bilateral Hearing Impairment: Denies Cancer: No Psychosocial: Yes Anxiety, Depression Integumentary: No Blood Disorders: No Adverse Reaction/Blood Tranf: No Family Medical History Heart Disease Physical Exam-Suspected Sepsis Physical Exam Vital Signs Vital Signs - First Documented 07/28/20 07/28/20 09:56 12:28 Temp 38.5 Pulse 109 Resp 22 B/P (MAP) 131/119 (123) Pulse Ox 92 O2 Delivery Room Air O2 Flow Rate 3.00 Capillary Refill : Less Than 3 Seconds Blood Pressure Mean: 123 Height, Weight, BMI Height: 5'2.00" Weight: 177lbs. 0oz. 80.667253rh; 31.00 BMI Method:Stated General Appearance: WD/WN, Mild Distress (respiratory) HEENT: PERRL/EOMI, Normal ENT Inspection Neck: Normal Inspection Respiratory: Lungs Clear, Accessory Muscle Use, Other (tachypnea, slightly prolonged expiratory phase) Cardiovascular: No Edema, No Murmur, Normal Peripheral Pulses, Tachycardia Gastrointestinal: Normal Bowel Sounds, Non Tender, Soft Extremity: Normal Inspection, No Pedal Edema Neurologic/Psychiatric: Alert, Oriented x3, No Motor/Sensory Deficits, Normal Mood/Affect, program planner II-XII Norm as Tested Skin: normal color, warm/dry Focused Exam Lactate Level 07/28/20 10:10: Lactic Acid Level 2.53*H 07/28/20 12:15: Lactic Acid Level 1.58 Lactic Acid Level Progress/Results/Core Measures Suspected Sepsis Recent Fever Within 48 Hours: Yes Infection Criteria Present: Suspected New Infection New/Unexplained Altered Menta: No Sepsis Screen: Possible Severe Sepsis Risk SIRS Temperature: Pulse: 109 Respiratory Rate: 22 Laboratory Tests 07/28/20 10:10: White Blood Count 12.7H Blood Pressure 131 /119 Mean: 123 07/28/20 10:10: Lactic Acid Level 2.53*H 07/28/20 12:15: Lactic Acid Level 1.58 Laboratory Tests 07/28/20 10:10: Creatinine 0.90, INR Comment 1.0, Platelet Count 213, Total Bilirubin 0.9 Results/Orders Lab Results Laboratory Tests Test 07/28/20 10:10 07/28/20 10:15 07/28/20 10:28 07/28/20 12:15 Range/Units White Blood Count 12.7 H 4.3-11.0 10^3/uL Red Blood Count 4.78 3.80-5.11 10^6/uL Hemoglobin 13.9 11.5-16.0 g/dL Hematocrit 42 35-52 % Mean Corpuscular Volume 87 80-99 fL Mean Corpuscular Hemoglobin 29 25-34 pg Mean Corpuscular Hemoglobin Concent 33 32-36 g/dL Red Cell Distribution Width 13.3 10.0-14.5 % Platelet Count 213 130-400 10^3/uL Mean Platelet Volume 10.1 9.0-12.2 fL Immature Granulocyte % (Auto) 0 % Neutrophils (%) (Auto) 91 H 42-75 % Lymphocytes (%) (Auto) 4 L 12-44 % Monocytes (%) (Auto) 5 0-12 % Eosinophils (%) (Auto) 0 0-10 % Basophils (%) (Auto) 0 0-10 % Neutrophils # (Auto) 11.5 H 1.8-7.8 10^3/uL Lymphocytes # (Auto) 0.4 L 1.0-4.0 10^3/uL Monocytes # (Auto) 0.6 0.0-1.0 10^3/uL Eosinophils # (Auto) 0.0 0.0-0.3 10^3/uL Basophils # (Auto) 0.1 0.0-0.1 10^3/uL Immature Granulocyte # (Auto) 0.1 0.0-0.1 10^3/uL Neutrophils % (Manual) 75 % Lymphocytes % (Manual) 9 % Monocytes % (Manual) 9 % Band Neutrophils 7 % Blood Morphology Comment NORMAL Prothrombin Time 13.7 12.2-14.7 SEC INR Comment 1.0 0.8-1.4 Activated Partial Thromboplast Time 29 24-35 SEC D-Dimer 0.34 0.00-0.49 UG/ML Sodium Level 138 135-145 MMOL/L Potassium Level 3.5 L 3.6-5.0 MMOL/L Chloride Level 108 H 98-107 MMOL/L Carbon Dioxide Level 20 L 21-32 MMOL/L Anion Gap 10 5-14 MMOL/L Blood Urea Nitrogen 13 7-18 MG/DL Creatinine 0.90 0.60-1.30 MG/DL Estimat Glomerular Filtration Rate > 60 BUN/Creatinine Ratio 14 Glucose Level 131 H 70-105 MG/DL Lactic Acid Level 2.53 *H 1.58 0.50-2.00 MMOL/L Calcium Level 9.3 8.5-10.1 MG/DL Corrected Calcium 9.3 8.5-10.1 MG/DL Total Bilirubin 0.9 0.1-1.0 MG/DL Aspartate Amino Transf (AST/SGOT) 27 5-34 U/L Alanine Aminotransferase (ALT/SGPT) 46 0-55 U/L Alkaline Phosphatase 71 40-136 U/L Lactate Dehydrogenase 212 125-220 U/L C-Reactive Protein High Sensitivity 0.72 H 0.00-0.50 MG/DL Total Protein 6.7 6.4-8.2 GM/DL Albumin 4.0 3.2-4.5 GM/DL Lipase 14 8-78 U/L Procalcitonin 0.12 H <0.10 NG/ML Coronavirus 2019 (BLAIRE) Negative Negative B-Type Natriuretic Peptide 28.8 <100.0 PG/ML Urine Color YELLOW Urine Clarity SL CLOUDY Urine pH 6.5 5-9 Urine Specific [place] 1.015 L 1.016-1.022 Urine Protein NEGATIVE NEGATIVE Urine Glucose (UA) 2+ H NEGATIVE Urine Ketones NEGATIVE NEGATIVE Urine Nitrite NEGATIVE NEGATIVE Urine Bilirubin NEGATIVE NEGATIVE Urine Urobilinogen 0.2 < = 1.0 MG/DL Urine Leukocyte Esterase NEGATIVE NEGATIVE Urine RBC (Auto) TRACE-I NEGATIVE Urine RBC 0-2 /HPF Urine WBC 2-5 /HPF Urine Squamous Epithelial Cells 2-5 /HPF Urine Crystals NONE /LPF Urine Bacteria TRACE /HPF Urine Casts NONE /LPF Urine Mucus NEGATIVE /LPF Urine Culture Indicated NO Test 07/28/20 16:28 Range/Units Glucometer 158 H 70-110 MG/DL Micro Results Microbiology 07/28/20 Influenza Types A,B Antigen (MAL) - Final, Complete My Orders Orders - OBDULIO FOSTER MD Covid 19 Inhouse Test (07/28/20 10:13) Cbc With Automated Diff (07/28/20 10:13) Comprehensive Metabolic Panel (07/28/20 10:13) Blood Culture (07/28/20 10:13) Sputum Culture (07/28/20 10:13) Urinalysis (07/28/20 10:13) Urine Culture (07/28/20 10:13) Protime With Inr (07/28/20 10:13) Partial Thromboplastin Time (07/28/20 10:13) Chest 1 View, Ap/Pa Only (07/28/20 10:13) Ed Iv/Invasive Line Start (07/28/20 10:13) Ed Iv/Invasive Line Start (07/28/20 10:13) Vital Signs Adult Sepsis Patie Q15M (07/28/20 10:13) O2 (07/28/20 10:13) Remove Rings In Anticipation O (07/28/20 10:13) Lactic Acid Analyzer (07/28/20 10:13) Influenza A And B Antigens (07/28/20 10:13) Procalcitonin (Pct) (07/28/20 10:13) Hs C Reactive Protein (07/28/20 10:13) LDH (07/28/20 10:13) Lipase (07/28/20 10:13) Albuterol Inhaler (Ventolin Hfa) (07/28/20 10:30) Acetaminophen Tablet (Tylenol Tablet) (07/28/20 10:30) Acetaminophen Tablet (Tylenol Tablet) (07/28/20 10:18) Manual Differential (07/28/20 10:10) BNP (07/28/20 10:52) Coronavirus Sars-Cov-2 So 2018 (07/28/20 11:00) Methylprednisolone Sod Succ (Solu-Medrol (07/28/20 11:30) Ceftriaxone For Iv Use (Rocephin For I (07/28/20 11:30) Fibrin Degradation Products (07/28/20 11:32) Ns Iv 1000 Ml (Sodium Chloride 0.9%) (07/28/20 11:33) Medications Given in ED Current Medications Medications Dose Ordered Sig/Basilio Route Start Time Stop Time Status Last Admin Dose Admin Acetaminophen 1,000 mg ONCE ONCE PO 07/28/20 10:30 07/28/20 10:31 DC 07/28/20 10:34 1,000 MG Albuterol Sulfate 4 puffs q 30 min prn wheezi... UD PRN IH 07/28/20 10:30 07/28/20 12:23 DC 07/28/20 10:32 18 GM Ceftriaxone Sodium 1000 mg/ Sterile Water 10 ml @ 200 mls/hr ONCE ONCE IV 07/28/20 11:30 07/28/20 11:32 DC 07/28/20 12:19 200 MLS/HR Methylprednisolone Sodium Succinate 125 mg ONCE ONCE IVP 07/28/20 11:30 07/28/20 11:31 DC 07/28/20 12:19 125 MG Vital Signs/I&O 07/28/20 07/28/20 07/28/20 07/28/20 09:56 12:28 12:35 13:13 Temp 38.5 37.3 36.1 Pulse 109 81 79 Resp 22 20 18 B/P (MAP) 131/119 (123) 103/64 92/51 Pulse Ox 92 97 97 97 O2 Delivery Room Air Nasal Cannula Nasal Cannula Room Air O2 Flow Rate 3.00 3.00 2.00 07/28/20 07/28/20 15:30 16:28 Temp 36.8 Pulse 72 73 Resp 18 B/P (MAP) 113/59 (77) Pulse Ox 96 O2 Delivery Nasal Cannula O2 Flow Rate 3.00 Capillary Refill : Less Than 3 Seconds Blood Pressure Mean: 123 Progress Note #1: Time: 10:59 Progress Note Nasal cannula was applied. Patient was given 4 puffs of albuterol inhaler. Tylenol was ordered for fever. Septic workup including rapid COVID and influenza testing is underway. Progress Note #2: Time: 11:38 Progress Note Patient is improved on nasal cannula and albuterol MDI treatment. CRP and pro- calcitonin are low suggesting she does not have sepsis due to bacterial infection. However, given the fever and presence of COPD, antibiotics are felt appropriate at this time after discussion with Dr. García. We will also administer steroids and fluids. Rapid COVID and influenza screening were negative. Backup COVID swab is pending. Patient will be admitted because of her hypoxia and respiratory distress on presentation. D-dimer is pending. CT angiogram may be ordered if d-dimer is positive. Diagnostic Imaging Diagonstic Imaging: Xray Plain Films/CT/US/NM/MRI: chest Comments Chest x-ray viewed by me and report reviewed. Compared with prior. See report below: NAME: DEON SERVIN [facility] REC#: [id number] PT STATUS: REG ER : 1955 PHYSICIAN: OBDULIO FOSTER MD ADMIT DATE: 07/28/20/ER Draft Date of Exam:07/28/20 CHEST 1 VIEW, AP/PA ONLY INDICATION: sepsis COMPARISON: 03/30/2020 FINDINGS: Single frontal view of the chest demonstrates normal heart size and pulmonary vascularity. The lungs show minimal left basilar atelectasis, but are otherwise clear. No large pleural effusion or pneumothorax is seen. The visualized osseous structures show no acute abnormalities. IMPRESSION: 1. Minimal left basilar atelectasis, but no acute cardiopulmonary process. Dictated on workstation # [id number] Dict: 07/28/20 1100 Trans: 07/28/20 1103 [facility] [id number] Interpreted by: FLAQUITA CANALES MD Departure Communication (Admissions) Time/Spoke to Admitting Phy: 11:20 Dr. Dhaliwal Time/Spoke to Consulting Phy: 11:25 Dr. García Impression Primary Impression: COPD exacerbation Additional Impressions: Hypoxia Febrile illness Person under investigation for COVID-19 Disposition: 09 ADMITTED INPATIENT Condition: Improved Admissions Decision to Admit Reason: Admit from ER (General) Decision to Admit/Date: Jul 28, 2020 Time/Decision to Admit Time: 10:10 Departure-Patient Inst. Referrals: [facility] (PCP/Family) Primary Care Physician Copy Copies To 1: DI SHUKLA JOSHUA T MD Jul 28, 2020 10:59
--- NOTE | 2020-07-28 11:03 | Diagnostic Imaging Report ---
INDICATION: sepsis COMPARISON: 03/30/2020 FINDINGS: Single frontal view of the chest demonstrates normal heart size and pulmonary vascularity. The lungs show minimal left basilar atelectasis, but are otherwise clear. No large pleural effusion or pneumothorax is seen. The visualized osseous structures show no acute abnormalities. IMPRESSION: 1. Minimal left basilar atelectasis, but no acute cardiopulmonary process. Dictated by: Dictated on workstation # [id number]
[2020-07-28] MEDS ORDERED: cefTRIAXone FOR IV USE 1,000 MG in WATER (STERILE) FOR INJECTION 10 ML IV ONE (11:30)
[2020-07-28] MEDS ORDERED: methylPREDNISolone 125 MG (Solu-MEDROL) VIAL IVP ONE (11:30)
[2020-07-28] MEDS ORDERED: NS IV 1000 ML 1,000 ML IV ONE (11:33)
--- NOTE | 2020-07-28 11:38 | NUR ---
SOLDERER ASSEMBLY REPAIR NOTIFIED OF NEEDING A BED FOR ADMISSION.
--- NOTE | 2020-07-28 11:56 | NUR ---
ATTEMPT TO CALL REPORT TO VERONICA IS NOT AVAILABLE AND WILL CALL BACK.
[2020-07-28] MEDS ORDERED: methylPREDNISolone 125 MG (Solu-MEDROL) VIAL ONE (12:07)
[2020-07-28] MEDS ORDERED: cefTRIAXone 1,000 MG IV (ROCEPHIN) VIAL ONE (12:07)
[2020-07-28] MEDS ORDERED: WATER (STERILE) FOR INJECTION 10 ML ONE (12:07)
[2020-07-28] MEDS ORDERED: AZITHROMYCIN 500 MG/NS 250 ML IVPB IV NR ×2 (12:30)
[2020-07-28] MEDS ORDERED: CATHETER FLUSH 10 ML SYR IV PRN ×2 (12:30)
[2020-07-28 12:35] VITALS: BP 92/51
[2020-07-28] MEDS: LACTATED RINGERS 1,000 ML IV SCH ×2 (12:56→22:04)
--- NOTE | 2020-07-28 13:00 | NUR ---
Devi Servin admitted to room 424-1, with an admitting diagnosis of COPD, on 07/28/20 from [place] via , accompanied by .DEVI SERVIN introduced to surroundings, call light, bed controls, phone, TV, temperature control, lights, meal times, smoking policy, visitor policy, side rail policy, bathrooms and showers. Patient Rights given to patient in the handbook.DEVI SERVIN verbalizes understanding that [facility] is not responsible for the loss or damage to any personal effects or valuables that are kept in the patients posession during their hospitalization. DEVI SERVIN verbalizes understanding of Interdisciplinary Patient Education. Patient and/or family were informed about the Rapid Response Team and its purpose.
[2020-07-28] MEDS ORDERED: FLU QUADRIvalent (3YOA+) 60 mcg/0.5 ml 2020-21 (AFLURIA) IM ONE (13:45)
[2020-07-28 15:30] VITALS: BP 113/59
[2020-07-28] MEDS: methylPREDNISolone 40 MG/ML (Solu-MEDROL) VIAL IV SCH (17:53)
[2020-07-28 20:00] VITALS: BP 118/57
[2020-07-28] MEDS: ACETAMINOPHEN 500 MG TAB (TYLENOL) PO PRN (20:29)
[2020-07-28] MEDS ORDERED: FLUTICASONE NASAL SPRAY (FLONASE) 16 GM BTL NS PRN (21:15)
[2020-07-28] MEDS ORDERED: MECLIZINE 25 MG (ANTIVERT) TAB PO PRN (21:15)
[2020-07-29] MEDS: methylPREDNISolone 40 MG/ML (Solu-MEDROL) VIAL IV SCH ×2 (00:05→05:57)
[2020-07-29 00:35] VITALS: BP 121/61
[2020-07-29 04:38] VITALS: BP 138/75
[2020-07-29] MEDS: LACTATED RINGERS 1,000 ML IV SCH ×2 (04:57→05:56)
[2020-07-29 06:26] LABS: BASOPHILS % (AUTO) 0 % (0-10); EOSINOPHILS % (AUTO) 0 % (0-10); HEMATOCRIT 40 % (35-52); LYMPHOCYTES % (AUTO) 5 % (12-44); MEAN CORPUSCULAR HEMOGLOBIN 29 pg (25-34); MEAN CORPUSCULAR HGB CONC 33 g/dL (32-36); MEAN CORPUSCULAR VOLUME 88 fL (80-99); MEAN PLATELET VOLUME 10.6 fL (9.0-12.2); MONOCYTES # (AUTO) 0.3 10^3/uL (0.0-1.0); MONOCYTES % (AUTO) 1 % (0-12); NEUTROPHILS # (AUTO) 16.5 10^3/uL (1.8-7.8); NEUTROPHILS % (AUTO) 92 % (42-75); PLATELET COUNT 220 10^3/uL (130-400)
--- NOTE | 2020-07-29 06:33 | NUR ---
SECOND COVID SWAB- NEGATIVE DR. TUCKER NOTIFIED, NEW ORDER TO DC ISOLATION.
[2020-07-29 06:35] LABS: ALBUMIN 3.5 GM/DL (3.2-4.5); CHLORIDE 108 MMOL/L (98-107); POTASSIUM 3.9 MMOL/L (3.6-5.0); SODIUM 139 MMOL/L (135-145)
[2020-07-29 06:36] LABS: CALCIUM 9.2 MG/DL (8.5-10.1)
[2020-07-29 06:37] LABS: GLUCOSE 140 MG/DL (70-105)
[2020-07-29 06:38] LABS: TOTAL PROTEIN 6.1 GM/DL (6.4-8.2)
[2020-07-29 06:39] LABS: BILIRUBIN,TOTAL 0.6 MG/DL (0.1-1.0); CARBON DIOXIDE 22 MMOL/L (21-32)
[2020-07-29 06:41] LABS: ALKALINE PHOSPHATASE 62 U/L (40-136); CREATININE SERUM 0.82 MG/DL (0.60-1.30); GFR ESTIMATED > 60
[2020-07-29 06:42] LABS: BUN/CREATININE RATIO 22
[2020-07-29 06:44] LABS: ALANINE AMINOTRANSFERASE 37 U/L (0-55)
[2020-07-29 08:00] VITALS: BP 123/61
[2020-07-29] MEDS ORDERED: UMECLIDINIUM BROMIDE (INCRUSE ELLIPTA) 7'S IH SCH (08:00)
--- NOTE | 2020-07-29 08:19 | Pulmonary Consultation ---
History of Present Illness History of Present Illness Date Seen by Provider: Jul 29, 2020 Time Seen by Provider: 08:17 Date of Admission Allergies and Home Medications Allergies Coded Allergies: Sulfa (Sulfonamide Antibiotics) (Unverified Allergy, Unknown, 06/08/14) Home Medications Albuterol Sulfate 1 Puff Puff, 2 PUFF IH Q4H PRN for SHORTNESS OF BREATH, (Reported) Atorvastatin Calcium 20 Mg Tablet, 20 MG PO HS, (Reported) Celecoxib 100 Mg Capsule, 100 MG PO BID, (Reported) Cetirizine HCl 10 Mg Tablet, 10 MG PO DAILY, (Reported) Fluoxetine HCl 40 Mg Capsule, 80 MG PO DAILY, (Reported) TAKES 2 (40MG) CAPSULES Fluticasone Propionate 16 Gm [place].susp, 2 SPRAYS NS BID PRN for ALLERGIES, (Reported) Fluticasone/Salmeterol 1 Each Blst.w.dev, 1 PUFF IH BID, (Reported) Gabapentin 300 Mg Capsule, 300 MG PO TID, (Reported) LAST FILLED 11-05-2019 #90 Ipratropium/Albuterol Sulfate 3 Ml Ampul.neb, 3 ML IH Q6H PRN for SHORTNESS OF BREATH, (Reported) Levothyroxine Sodium 25 Mcg Tablet, 37.5 MCG PO DAILY, (Reported) Meclizine HCl 25 Mg Tablet, 25 MG PO BID PRN for DIZZINESS, (Reported) Montelukast Sodium 10 Mg Tablet, 10 MG PO HS, (Reported) Multivitamin 1 Each Tablet, 1 TAB PO DAILY, (Reported) Quetiapine Fumarate 100 Mg Tablet, 100 MG PO HS, (Reported) Tiotropium [place] 1 Inh Aerp, 1 CAP IH HS, (Reported) Trazodone HCl 50 Mg Tablet, 50-75 MG PO HS, (Reported) Past Cnvqrzs-Tjfmvu-Zlfnod Hx Past Med/Social Hx: Reviewed Nursing Past Med/Soc Hx Patient Social History Alcohol Use: Denies Use Recreational Drug Use: No Smoking Status: Never a Smoker 2nd Hand Smoke Exposure: No Recent Foreign Travel: No Contact w/Someone Who Travel: No Recent Infectious Disease Expo: No Recent Hopitalizations: No Immunizations Up To Date Tetanus Booster (TDap): Unknown Date of Pneumonia Vaccine: Jul 24, 2017 Date of Influenza Vaccine: Aug 04, 2019 Seasonal Allergies Seasonal Allergies: Yes Past Medical History Surgeries: Yes (HIATAL HERNIA REPAIR, CARPAL TUNNEL) Abdominal, Appendectomy, Gallbladder, Hysterectomy, Orthopedic Respiratory: Yes (COUGH, DYSPNEA) Asthma, COPD Currently Using CPAP: No Currently Using BIPAP: No Cardiac: No Neurological: No : No 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 Disorders: 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 0oz. 80.381178bo; 31.52 BMI Method:Stated Exam Exam Vital Signs Date Time Temp Pulse Resp B/P (MAP) Pulse Ox O2 Delivery O2 Flow Rate FiO2 07/29/20 08:00 36.3 92 18 123/61 (81) 93 Nasal Cannula 3.00 07/29/20 07:26 95 Nasal Cannula 3.00 07/29/20 07:00 77 07/29/20 04:38 36.6 78 21 138/75 (96) 98 Nasal Cannula 3.00 07/29/20 01:00 70 07/29/20 00:35 36.5 75 21 121/61 (81) 94 Nasal Cannula 3.00 07/28/20 20:20 Nasal Cannula 2.00 07/28/20 20:00 36.0 70 18 118/57 (77) 97 Nasal Cannula 3.00 07/28/20 19:00 70 07/28/20 16:28 73 07/28/20 15:30 36.8 72 18 113/59 (77) 96 Nasal Cannula 3.00 07/28/20 13:13 97 Room Air 2.00 07/28/20 12:35 36.1 79 18 92/51 97 Nasal Cannula 3.00 07/28/20 12:28 37.3 81 20 103/64 97 Nasal Cannula 3.00 07/28/20 09:56 38.5 109 22 131/119 (123) 92 Room Air I & O 07/29/20 07:00 Intake Total 2490 ml Output Total 0 ml Balance 2490 ml Height & Weight Height: 5'2.00" Weight: 177lbs. 0oz. 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
[2020-07-29] MEDS ORDERED: ADVAIR HFA 115/21 MCG INHALER 8 GM IH SCH (09:00)
[2020-07-29] MEDS ORDERED: MULTIVIT W/MINERALS TAB (THERAGRAN M) PO SCH (09:00)
[2020-07-29] MEDS ORDERED: FLUoxetine HCL 20 MG (PROzac) CAP PO SCH (09:00)
[2020-07-29] MEDS ORDERED: GABAPENTIN 300 MG (NEURONTIN) CAP PO SCH (09:00)
[2020-07-29] MEDS ORDERED: LEVOTHYROXINE 25 MCG (LEVOTHROID) TAB PO SCH (09:00)
[2020-07-29] MEDS ORDERED: cefTRIAXone 1,000 MG/SWFI 10 ML IV PUSH IV SCH ×2 (09:00)
[2020-07-29] MEDS ORDERED: CELECOXIB 100 MG (CeleBREX) CAP PO SCH (09:00)
[2020-07-29] MEDS ORDERED: predniSONE 10 MG TAB PO SCH (09:00)
[2020-07-29] MEDS ORDERED: RT-ALBUTEROL/IPRATROPIUM 3 ML (DUONEB) VIAL INH SCH (09:00)
[2020-07-29] MEDS ORDERED: LORATADINE (CLARITIN) 10 MG TAB PO SCH (09:00)
[2020-07-29] MEDS ORDERED: AZITHROMYCIN 250 MG TAB (ZITHROMAX) PO SCH (09:00)
[2020-07-29] MEDS: ACETAMINOPHEN 500 MG TAB (TYLENOL) PO PRN (09:08)
[2020-07-29] MEDS ORDERED: FLUO60TA PO (10:01)
--- NOTE | 2020-07-29 10:09 | History & Physical-Hospitalist ---
History of Present Illness Date Seen 07/29/20 Attending Physician Keira Dhaliwal DO PCP RikyAlbright - [facility] Referring Physician Date of Admission Jul 28, 2020 at 11:49 Home Medications & Allergies Home Medications Reviewed patient Home Medication Reconciliation performed by pharmacy medication reconciliations solids control technician and/or nursing. Patients Allergies have been reviewed. Allergies Allergies Coded Allergies Sulfa (Sulfonamide Antibiotics) (Unverified Allergy, Unknown, 06/08/14) Past Unbeefr-Qlgkef-Pzrugr Hx Past Med/Social Hx: Reviewed Nursing Past Med/Soc Hx Patient Social History Alcohol Use: Denies Use Recreational Drug Use: No Smoking Status: Never a Smoker 2nd Hand Smoke Exposure: No Recent Foreign Travel: No Contact w/other who traveled: No Recent Hopitalizations: No Recent Infectious Disease Expo: No Immunizations Up To Date Tetanus Booster (TDap): Unknown Date of Pneumonia Vaccine: Jul 24, 2017 Date of Influenza Vaccine: Aug 04, 2019 Seasonal Allergies Seasonal Allergies: Yes Past Medical History Surgeries: Abdominal, Appendectomy, Gallbladder, Hysterectomy, Orthopedic Respiratory: COPD Currently Using CPAP: No Currently Using BIPAP: No : No 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: No Hysterectomy, Menopausal Gastrointestinal: Gastroesophageal Reflux, Hiatal Hernia Musculoskeletal: Arthritis Endocrine: Hypothyroidsim Loss of Vision: Bilateral Hearing Impairment: Denies Psychosocial: Anxiety, Depression History of Blood Disorders: No Adverse Reaction to Blood Parada: No Family History Cardiovascular disease 19 MOTHER Heart Disease Physical Exam Physical Exam Vital Signs Vital Signs - First Documented 07/28/20 07/28/20 09:56 12:28 Temp 38.5 Pulse 109 Resp 22 B/P (MAP) 131/119 (123) Pulse Ox 92 O2 Delivery Room Air O2 Flow Rate 3.00 Capillary Refill : Less Than 3 Seconds Height, Weight, BMI Height: 5'2.00" Weight: 177lbs. 0oz. 80.058789vz; 31.52 BMI Method:Stated Results Results/Procedures Labs Laboratory Tests 07/28/20 10:10 07/29/20 06:00 Patient resulted labs reviewed. Clinical Quality Measures DVT/VTE Risk/Contraindication: Risk Factor Score Per Nursin RFS Level Per Nursing on Admit: 4+=Very High KEIRA DHALIWAL DO Jul 29, 2020 10:09
[2020-07-29] MEDS ORDERED: FLUO20CA46 PO (10:19)
[2020-07-29] MEDS ORDERED: FURO20TA4 PO (10:19)
--- NOTE | 2020-07-29 10:25 | NUR ---
SPOKE WITH THE PT(CALLED ROOM PHONE) AND ALSO CALLED [facility] AND [facility] IN [place] TO COMPLETE THE MED REC THE FOLLOWING MEDICATIONS HAS BEEN FILLED AT [facility]: 06-14-2020 ALBUTEROL HFA #1 06-15-2020 MECLIZINE 25MG #60 06-20-2020 DUONEB 06-20-2020 GABAPENTIN 300MG #90/30DS 07-04-2020 QUETIAPINE 100MG #90/90DS 07-12-2020 FUROSEMIDE 20MG #20 07-18-2020 FLONASE #1 07-18-2020 CELEBREX 100MG #180/90DS 07-18-2020 CETIRIZINE 10MG #90/90DS 07-26-2020 TRAZODONE 50MG #45 07-26-2020 LEVOTHYROXINE 25MCG #30 THE FOLLOWING MEDICATIONS WERE FILLED THRU THE REPOSITORY AT [facility] IN [place]: 06-01-2020 MONTELUKAST 10MG #90/90DS 07-01-2020 FLUOXETINE 20MG #120/30DS 07-26-2020 ATORVASTATIN 20MG #60/60DS PT GETS ADVAIR THRU THE PALS PROGRAM OTC MEDS: ZYRTEC MTV OMEPRAZOLE
[2020-07-29] MEDS ORDERED: OMEP20TA7 PO (10:33)
[2020-07-29 11:15] VITALS: BP 123/61
--- NOTE | 2020-07-29 11:22 | Short Stay Summary-Hospitalist ---
History of Present Illness HPI/Chief Complaint CC: Dyspnea HPI: This is a 65yoWF clinic patient of [facility] who has a h/o COPD and frequent hospital stays for AECOPD when she was admitted from ER for AECOPD. O2 maintained and steroids maintained along with abx coverage for bronchitis. COVID was negative. Patient was wanting to go home shortly after waking up this caitlin [place]. Source: patient Exam Limitations: no limitations Date Seen 07/29/20 Time Seen by a Provider: 10:00 Attending Physician Keira Dhaliwal DO PCP [email or web address] - [facility] Referring Physician Date of Admission Jul 28, 2020 at 11:49 Home Medications & Allergies Home Medications Reviewed patient Home Medication Reconciliation performed by pharmacy medication reconciliations plant maintenance technician and/or nursing. Patients Allergies have been reviewed. Allergies Allergies Coded Allergies Sulfa (Sulfonamide Antibiotics) (Unverified Allergy, Unknown, 06/08/14) Past Jaglyqb-Ahhjlf-Ghdoit Hx Past Med/Social Hx: Reviewed Nursing Past Med/Soc Hx, Reviewed and Corrections made Patient Social History Marrital Status: single Employed/Student: unemployed Alcohol Use: Denies Use Recreational Drug Use: No Smoking Status: Never a Smoker 2nd Hand Smoke Exposure: No Recent Foreign Travel: No Contact w/other who traveled: No Recent Hopitalizations: No Recent Infectious Disease Expo: No Immunizations Up To Date Tetanus Booster (TDap): Unknown Date of Pneumonia Vaccine: Jul 24, 2017 Date of Influenza Vaccine: Aug 04, 2019 Seasonal Allergies Seasonal Allergies: Yes Past Medical History Surgeries: Abdominal, Appendectomy, Gallbladder, Hysterectomy, Orthopedic Respiratory: COPD Currently Using CPAP: No Currently Using BIPAP: No : No 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: No Hysterectomy, Menopausal Gastrointestinal: Gastroesophageal Reflux, Hiatal Hernia Musculoskeletal: Arthritis Endocrine: Hypothyroidsim Loss of Vision: Bilateral Hearing Impairment: Denies Psychosocial: Anxiety, Depression History of Blood Disorders: No Adverse Reaction to Blood Parada: No Family History Cardiovascular disease 19 MOTHER Heart Disease Review of Systems Constitutional: see HPI Respiratory: dyspnea on exertion Physical Exam Physical Exam Vital Signs Vital Signs - First Documented 07/28/20 07/28/20 09:56 12:28 Temp 38.5 Pulse 109 Resp 22 B/P (MAP) 131/119 (123) Pulse Ox 92 O2 Delivery Room Air O2 Flow Rate 3.00 Capillary Refill : Less Than 3 Seconds Height, Weight, BMI Height: 5'2.00" Weight: 177lbs. 0oz. 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 Short Stay Diagnosis Discharge Diagnosis-Short Stay Admission Diagnosis AECOPD Final Discharge Diagnosis AECOPD Conclusion Plan DC home Diagnosis/Problems Diagnosis/Problems (1) COPD exacerbation Status: Acute Clinical Quality Measures DVT/VTE Risk/Contraindication: Risk Factor Score Per Nursin RFS Level Per Nursing on Admit: 4+=Very High KEIRA DHALIWAL DO Jul 29, 2020 11:22
[2020-07-29] MEDS ORDERED: PRED10TA22 PO (11:23)
[2020-07-29] MEDS ORDERED: CEFD300C3 PO (11:23)
--- NOTE | 2020-07-29 11:49 | NUR ---
PATIENTS O2 SAT RANGED FROM 90% TO 94% ON EXERTION; HR RANGED FROM 105 TO 116 ON EXERTION; NO COMPLAINTS OF SOA WHILE WALKING. PATIENT DID NOT REQUIRE ANY O2 AT REST OR ON EXERTION AT THIS TIME. Addendum: 07/29/20 at 1151 by DALIA FAYE RT Amended: Links added.
[2020-07-29 12:00] VITALS: BP 101/58
[2020-07-29] MEDS ORDERED: traZODone 50 MG (DESYREL) TAB PO SCH (21:00)
[2020-07-29] MEDS ORDERED: QUEtiapine 100 MG (SEROquel) TAB IMMEDIATE RELEASE PO SCH (21:00)
[2020-07-29] MEDS ORDERED: MONTELUKAST 10 MG (SINGULAIR) TAB PO SCH (21:00)
[2020-07-30] MEDS ORDERED: LEVOTHYROXINE 75 MCG (LEVOTHROID) TABLET PO SCH (06:30)
== END 2020-07-29 14:40 | disposition home or self-care (01) | DRG 190 ==
LOC: EDUNIT# 09:46 → ER 09:48 → 4TH 11:49
PROVIDERS: ADMIT Internal Medicine; ATTEND Internal Medicine
DX: J44.0 Chronic obstructive pulmonary disease with (acute) lower respiratory infection (principal); J18.9 Pneumonia, unspecified organism; J44.1 Chronic obstructive pulmonary disease with (acute) exacerbation; K21.9 Gastro-esophageal reflux disease without esophagitis; K44.9 Diaphragmatic hernia without obstruction or gangrene; M19.91 Primary osteoarthritis, unspecified site; E03.9 Hypothyroidism, unspecified; F41.9 Anxiety disorder, unspecified; F32.9 Major depressive disorder, single episode, unspecified; Z20.828 Contact with and (suspected) exposure to other viral communicable diseases; Z90.710 Acquired absence of both cervix and uterus
CPT/HCPCS: 36415; 71045; 80053; 81000; 82962; 83605; 83615; 83690; 83880; 84145; 85007; 85025; 85027; 85379; 85610; 85730; 86141; 87040; 87088; 87635; 87804; 94640; 94761

== ENCOUNTER → 2020-08-04 | Outpatient (CLI) | payer OTHER ==
[~2020-08-04] MED LIST changes: +FLUO20CA46 PO; +FLUO60TA PO; +FURO20TA4 PO; +PRED10TA22 PO
--- NOTE | 2020-08-04 12:05 | Diagnostic Imaging Report ---
PROCEDURE: US Venous Lower Ext [place]. TECHNIQUE: Multiple real-time grayscale images were obtained over the lower extremities in various projections, bilaterally. Additional duplex Doppler and color Doppler images were also obtained. INDICATION: Bilateral leg pain and swelling. There is no evidence of right or left lower extremity DVT. Both lower extremity deep venous systems demonstrate normal compressibility with normal response to augmentation and Valsalva. No fluid collection or mass is detected. IMPRESSION: No evidence of right or left lower extremity DVT. Dictated by: Dictated on workstation # [id number]
== END ==
LOC: RAD 10:45
PROVIDERS: ATTEND Nurse Practitioner Family
DX: J44.9 Chronic obstructive pulmonary disease, unspecified (principal); J30.9 Allergic rhinitis, unspecified; J40 Bronchitis, not specified as acute or chronic; J18.9 Pneumonia, unspecified organism; R22.43 Localized swelling, mass and lump, lower limb, bilateral
CPT/HCPCS: 93970

== ENCOUNTER 2020-09-14 12:09 | Emergency (ER) | payer OTHER ==
[~2020-09-14] VITALS: Ht 160 cm; Wt 79.8 kg
[2020-09-14] MEDS ORDERED: ASPIRIN E.C. 325 MG (ECOTRIN) TABLET PO ONE (13:00)
[2020-09-14] MEDS ORDERED: ASPIRIN 81 MG CHEW (CHILDREN'S ASA) ONE (13:06)
--- NOTE | 2020-09-14 13:14 | Diagnostic Imaging Report ---
INDICATION: Cough and shortness of breath and dizziness. Frontal chest obtained at 12:55 p.m. and compared 07/28/2020. Heart and mediastinal silhouette are normal in appearance. There is no focal infiltrate or pneumothorax or pleural fluid. IMPRESSION: No acute process in the chest. Improved aeration of the lung bases compared to the prior study 07/28/2020. Dictated by: Dictated on workstation # [id number]
[2020-09-14] MEDS ORDERED: ASPIRIN 81 MG CHEW (CHILDREN'S ASA) PO ONE (13:15)
[2020-09-14] MEDS ORDERED: methylPREDNISolone 125 MG (Solu-MEDROL) VIAL IVP ONE (13:30)
[2020-09-14] MEDS ORDERED: RT-ALBUTEROL SULF 2.5 MG/3 ML PRE-MIX VIAL INH ONE ×2 (13:30→14:45)
[2020-09-14 13:37] LABS: BASOPHILS # (AUTO) 0.1 10^3/uL (0.0-0.1); BASOPHILS % (AUTO) 1 % (0-10); EOSINOPHILS # (AUTO) 0.1 10^3/uL (0.0-0.3); EOSINOPHILS % (AUTO) 1 % (0-10); HEMATOCRIT 43 % (35-52); HEMOGLOBIN 14.1 g/dL (11.5-16.0); LYMPHOCYTES # (AUTO) 0.7 10^3/uL (1.0-4.0); LYMPHOCYTES % (AUTO) 6 % (12-44); MEAN CORPUSCULAR HEMOGLOBIN 30 pg (25-34); MEAN CORPUSCULAR HGB CONC 33 g/dL (32-36); MEAN CORPUSCULAR VOLUME 90 fL (80-99); MEAN PLATELET VOLUME 10.3 fL (9.0-12.2); MONOCYTES # (AUTO) 0.9 10^3/uL (0.0-1.0); MONOCYTES % (AUTO) 7 % (0-12); NEUTROPHILS % (AUTO) 86 % (42-75); PLATELET COUNT 208 10^3/uL (130-400); WHITE BLOOD COUNT 12.9 10^3/uL (4.3-11.0)
[2020-09-14 13:45] LABS: CHLORIDE 106 MMOL/L (98-107); SODIUM 141 MMOL/L (135-145)
[2020-09-14 13:46] LABS: CALCIUM 9.8 MG/DL (8.5-10.1)
[2020-09-14 13:47] LABS: GLUCOSE 98 MG/DL (70-105)
[2020-09-14 13:49] LABS: BAND NEUTROPHILS 1 %; BASOPHILS % (MANUAL) 1 %; CARBON DIOXIDE 22 MMOL/L (21-32); EOSINOPHILS % (MANUAL) 1 %; LYMPHOCYTES % (MANUAL) 9 %; MONOCYTES % (MANUAL) 6 %; NEUTROPHILS % (MANUAL) 82 %; RBC MORPH NORMAL
[2020-09-14 13:51] LABS: CREATININE SERUM 0.84 MG/DL (0.60-1.30); GFR ESTIMATED > 60
[2020-09-14 13:52] LABS: BUN/CREATININE RATIO 18
[2020-09-14 13:59] LABS: CREATINE KINASE MB 0.8 NG/ML (<6.6)
--- NOTE | 2020-09-14 14:19 | ED Respiratory ---
General Chief Complaint: Respiratory Problems Stated Complaint: COUGH,SOB,DIZZY Nursing Triage Note: Pt to ED via POV. Pt c/o cough, chest pain and SOB. Pt has history of COPD. Source: patient Exam Limitations: no limitations History of Present Illness Date Seen by Provider: Sep 14, 2020 Time Seen by Provider: 12:50 Initial Comments Patient is a 65-year-old female who presents to the emergency room today with a chief complaint of shortness of breath. Patient states that she had an onset at 3 AM of some "bad heartburn" (secondary to eating peanuts the night prior). She states that since that time around 7 AM she started having some shortness of breath and chest discomfort. Patient states that she has a history of asthma and COPD. She is on multiple inhalers. She denies any real significant cough no productive cough. She is not had any fevers, no nausea and vomiting. Patient denies any sick contacts. No other URI type symptoms. No GI or symptoms. All other review of systems reviewed and negative except as stated above. Timing/Duration: this morning Prior Episodes/Possible Cause: occasional episodes Modifying Factors: Improves With Albuterol Inhaler, Improves With Albuterol Nebulizer Associated Symptoms: chest pain/soreness; No cough, No nasal congestion, No nasal drainage; shortness of breath Allergies and Home Medications Allergies Coded Allergies: Sulfa (Sulfonamide Antibiotics) (Unverified Allergy, Unknown, 06/08/14) Home Medications Albuterol Sulfate 1 Puff Puff, 2 PUFF IH Q4H PRN for SHORTNESS OF BREATH, (Reported) Atorvastatin Calcium 20 Mg Tablet, 20 MG PO HS, (Reported) Cefdinir 300 Mg Capsule, 300 MG PO BID Prescribed by: FRANCK TUCKER on 07/29/20 1123 Celecoxib 100 Mg Capsule, 100 MG PO BID, (Reported) Cetirizine HCl 10 Mg Tablet, 10 MG PO DAILY, (Reported) Fluoxetine HCl 20 Mg Capsule, 80 MG PO DAILY, (Reported) TAKES 4 (20MG) CAPS Fluticasone Propionate 16 Gm [place].susp, 2 SPRAYS NS BID PRN for ALLERGIES, (Reported) Fluticasone/Salmeterol 1 Each Blst.w.dev, 1 PUFF IH BID, (Reported) Furosemide 20 Mg Tablet, 20 MG PO Q48H, (Reported) Gabapentin 300 Mg Capsule, 300 MG PO TID, (Reported) Ipratropium/Albuterol Sulfate 3 Ml Ampul.neb, 3 ML IH Q6H PRN for SHORTNESS OF BREATH, (Reported) Levothyroxine Sodium 25 Mcg Tablet, 37.5 MCG PO DAILY, (Reported) Meclizine HCl 25 Mg Tablet, 25 MG PO BID PRN for DIZZINESS, (Reported) Montelukast Sodium 10 Mg Tablet, 10 MG PO HS, (Reported) Multivitamin 1 Each Tablet, 1 TAB PO DAILY, (Reported) Omeprazole 20 Mg Tablet.dr, 20 MG PO BID, (Reported) Prednisone 10 Mg Tab.ds.pk, 10 MG PO DAILY Take 6 tabs(60mg)daily,decrease by 1 tab(10MG)daily. Prescribed by: FRANCK TUCKER on 07/29/20 1123 Quetiapine Fumarate 100 Mg Tablet, 100 MG PO HS, (Reported) Tiotropium [place] 1 Inh Aerp, 1 CAP IH HS, (Reported) Trazodone HCl 50 Mg Tablet, 50-75 MG PO HS, (Reported) Patient Home Medication List Home Medication List Reviewed: Yes Review of Systems Review of Systems Constitutional: no symptoms reported EENTM: no symptoms reported Respiratory: short of breath Cardiovascular: chest pain Gastrointestinal: other (Acid reflux) Genitourinary: no symptoms reported : No Musculoskeletal: no symptoms reported Skin: no symptoms reported All Other Systems Reviewed Negative Unless Noted: Yes Past Oazsdmp-Tjkhky-Sbgrow Hx Patient Social History Alcohol Use: Denies Use Recreational Drug Use: No 2nd Hand Smoke Exposure: No Recent Foreign Travel: No Contact w/Someone Who Travel: No Recent Infectious Disease Expo: No Recent Hopitalizations: No Immunizations Up To Date Tetanus Booster (TDap): Unknown Date of Pneumonia Vaccine: Jul 24, 2017 Date of Influenza Vaccine: Aug 04, 2019 Seasonal Allergies Seasonal Allergies: Yes Past Medical History Surgeries: Yes (HIATAL HERNIA REPAIR, CARPAL TUNNEL) Abdominal, Appendectomy, Gallbladder, Hysterectomy, Orthopedic Respiratory: Yes (COUGH, DYSPNEA) Asthma, COPD Currently Using CPAP: No Currently Using BIPAP: No Cardiac: No Neurological: No 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00" Weight: 177lbs. 0oz. 80.929951rd; 31.00 BMI Method:Stated General Appearance: WD/WN, no apparent distress Eyes: Bilateral Eye Normal Inspection, Bilateral Eye PERRL, Bilateral Eye EOMI HEENT: normal ENT inspection, TMs normal, pharynx normal Neck: full range of motion Respiratory: no respiratory distress, no accessory muscle use, decreased breath sounds, wheezing (Scant expiratory wheeze and faint crackles heard in the left lung base), other (Tachypnea with slightly increased work of breathing; tenderness to the anterior chest wall with palpation) Cardiovascular: regular rate, rhythm Gastrointestinal: non tender, soft Neurologic/Psychiatric: no motor/sensory deficits, alert, normal mood/affect, oriented x 3 Skin: normal color, warm/dry Progress/Results/Core Measures Suspected Sepsis Recent Fever Within 48 Hours: No Infection Criteria Present: None New/Unexplained Altered Menta: No Sepsis Screen: No Definite Risk SIRS Temperature: Pulse: 90 Respiratory Rate: 34 Laboratory Tests 09/14/20 13:20: White Blood Count 12.9H Blood Pressure 120 /97 Mean: 105 Laboratory Tests 09/14/20 13:20: Creatinine 0.84, Platelet Count 208 Results/Orders Lab Results Laboratory Tests Test 09/14/20 12:39 09/14/20 13:20 Range/Units Coronavirus 2019 ([facility]LA[facility]) Negative Negative White Blood Count 12.9 H 4.3-11.0 10^3/uL Red Blood Count 4.75 3.80-5.11 10^6/uL Hemoglobin 14.1 11.5-16.0 g/dL Hematocrit 43 35-52 % Mean Corpuscular Volume 90 80-99 fL Mean Corpuscular Hemoglobin 30 25-34 pg Mean Corpuscular Hemoglobin Concent 33 32-36 g/dL Red Cell Distribution Width 13.4 10.0-14.5 % Platelet Count 208 130-400 10^3/uL Mean Platelet Volume 10.3 9.0-12.2 fL Immature Granulocyte % (Auto) 0 % Neutrophils (%) (Auto) 86 H 42-75 % Lymphocytes (%) (Auto) 6 L 12-44 % Monocytes (%) (Auto) 7 0-12 % Eosinophils (%) (Auto) 1 0-10 % Basophils (%) (Auto) 1 0-10 % Neutrophils # (Auto) 11.0 H 1.8-7.8 10^3/uL Lymphocytes # (Auto) 0.7 L 1.0-4.0 10^3/uL Monocytes # (Auto) 0.9 0.0-1.0 10^3/uL Eosinophils # (Auto) 0.1 0.0-0.3 10^3/uL Basophils # (Auto) 0.1 0.0-0.1 10^3/uL Immature Granulocyte # (Auto) 0.0 0.0-0.1 10^3/uL Neutrophils % (Manual) 82 % Lymphocytes % (Manual) 9 % Monocytes % (Manual) 6 % Eosinophils % (Manual) 1 % Basophils % (Manual) 1 % Band Neutrophils 1 % Blood Morphology Comment NORMAL Sodium Level 141 135-145 MMOL/L Potassium Level 4.0 3.6-5.0 MMOL/L Chloride Level 106 98-107 MMOL/L Carbon Dioxide Level 22 21-32 MMOL/L Anion Gap 13 5-14 MMOL/L Blood Urea Nitrogen 15 7-18 MG/DL Creatinine 0.84 0.60-1.30 MG/DL Estimat Glomerular Filtration Rate > 60 BUN/Creatinine Ratio 18 Glucose Level 98 70-105 MG/DL Calcium Level 9.8 8.5-10.1 MG/DL Creatine Kinase MB 0.8 <6.6 NG/ML Troponin I < 0.028 <0.028 NG/ML My Orders Orders - DARRELL CERVANTES MD Covid 19 Inhouse Test (09/14/20 12:51) Chest 1 View, Ap/Pa Only (09/14/20 12:51) Ekg Tracing (09/14/20 12:51) Cbc With Automated Diff (09/14/20 12:51) Basic Metabolic Panel (09/14/20 12:51) Creatine Kinase Mb (09/14/20 12:51) Troponin I (09/14/20 12:51) Ed Iv/Invasive Line Start (09/14/20 12:51) Aspirin Enteric Coated Tablet (Ecotrin T (09/14/20 13:00) Aspirin Chewable Tablet (Baby Aspirin Ch (09/14/20 13:06) Aspirin Chewable Tablet (Baby Aspirin Ch (09/14/20 13:15) Methylprednisolone Sod Succ (Solu-Medrol (09/14/20 13:30) Albuterol Pre-Mix Nebs (Rt) (Proventil (09/14/20 13:30) Svn Small Volume Nebulizer (09/14/20 13:18) Manual Differential (09/14/20 13:20) Medications Given in ED Current Medications Medications Dose Ordered Sig/Basilio Route Start Time Stop Time Status Last Admin Dose Admin Albuterol Sulfate 2.5 mg ONCE ONCE INH 09/14/20 13:30 09/14/20 13:31 DC 09/14/20 13:47 2.5 MG Aspirin 81 mg STK-MED ONCE .ROUTE 09/14/20 13:06 09/14/20 13:08 DC 09/14/20 13:10 324 MG Methylprednisolone Sodium Succinate 125 mg ONCE ONCE IVP 09/14/20 13:30 09/14/20 13:31 DC 09/14/20 13:36 125 MG Vital Signs/I&O 09/14/20 12:09 Temp 37.4 Pulse 90 Resp 34 B/P (MAP) 120/97 (105) Pulse Ox 94 O2 Delivery Room Air Capillary Refill : Less Than 3 Seconds Blood Pressure Mean: 105 Progress Note : Time: 14:16 Progress Note Patient reevaluated and looks much improved over initial evaluation. Breathing better, no longer tachypneic. Patient's chest x-ray has been reviewed, it is clear, no evidence of infiltrate or effusions. Labs have been reviewed and are all within normal limits. Suspect that this patient had a flare of her COPD/asthma. We will send her home with a prescription for prednisone for 5 days and strict instructions to use her inhalers as prescribed. Patient will be given good return precautions. Diagnostic Imaging Diagonstic Imaging: Xray Plain Films/CT/US/NM/MRI: chest Comments [facility] [place], [place] NAME: JOSE SERVINKARUNA Perry [facility] REC#: [id number] PT STATUS: REG ER : 1955 PHYSICIAN: DARRELL CERVANTES MD ADMIT DATE: 09/14/20/ER Draft Date of Exam:09/14/20 CHEST 1 VIEW, AP/PA ONLY INDICATION: Cough and shortness of breath and dizziness. Frontal chest obtained at 12:55 p.m. and compared 07/28/2020. Heart and mediastinal silhouette are normal in appearance. There is no focal infiltrate or pneumothorax or pleural fluid. IMPRESSION: No acute process in the chest. Improved aeration of the lung bases compared to the prior study 07/28/2020. Dictated on workstation # [id number] Dict: 09/14/20 1310 Trans: 09/14/20 1313 [facility] [id number] Interpreted by: RAINA SALVADOR MD Electronically signed by: Departure Impression Primary Impression: COPD exacerbation Disposition: 01 HOME, SELF-CARE Condition: Stable Departure-Patient Inst. Decision time for Depature: 14:25 Referrals: [facility] (PCP/Family) Primary Care Physician Patient Instructions: Chronic Obstructive Pulmonary Disease (COPD), Including Emphysema Add. Discharge Instructions: I have electronically sent your prescription for prednisone to the [facility] in [place]. Please continue to use your inhalers as directed/needed every 4-6 hours. Return to the emergency room if you have any worsening shortness of breath, chest pain or any other emergent concerning symptoms. Please call your primary care doctor's office tomorrow for a follow-up appointment. All discharge instructions reviewed with patient and/or family. Voiced understanding. Scripts Prednisone (Prednisone) 50 Mg Tab 50 MG PO DAILY for 5 Days, #5 TAB Prov: DARRELL CERVANTES MD 09/14/20 DARRELL CERVANTES MD Sep 14, 2020 14:18
[2020-09-14] MEDS ORDERED: PRD50T PO (14:26)
[2020-09-14 15:00] VITALS: BP 109/71
== END 2020-09-14 15:02 | disposition home or self-care (01) ==
LOC: EDUNIT# 12:09 → ER 12:10
DX: J44.1 Chronic obstructive pulmonary disease with (acute) exacerbation (principal); E03.9 Hypothyroidism, unspecified; F41.9 Anxiety disorder, unspecified; F32.9 Major depressive disorder, single episode, unspecified; K21.9 Gastro-esophageal reflux disease without esophagitis; Z20.828 Contact with and (suspected) exposure to other viral communicable diseases; Z87.19 Personal history of other diseases of the digestive system; Z88.2 Allergy status to sulfonamides; Z79.51 Long term (current) use of inhaled steroids; Z79.890 Hormone replacement therapy; Z79.899 Other long term (current) drug therapy
CPT/HCPCS: 71045; 80048; 82553; 84484; 85007; 85027; 93005; 99284; U0002; 36415; 87635

== ENCOUNTER 2020-09-28 04:19 | Inpatient (IN) | payer SELFPAY ==
[~2020-09-28] VITALS: Ht 160 cm; Wt 83.4 kg
[~2020-09-28 04:19] MED LIST changes: +PRD50T PO
[2020-09-28] MEDS ORDERED: methylPREDNISolone 125 MG (Solu-MEDROL) VIAL IVP ONE (04:30)
[2020-09-28] MEDS ORDERED: ACETAMINOPHEN 500 MG TAB (TYLENOL) PO ONE (04:45)
[2020-09-28] MEDS ORDERED: ADVAIR HFA 115/21 MCG INHALER 8 GM IH ONE ×2 (04:46→08:00)
[2020-09-28] MEDS ORDERED: ALBUTEROL/IPRATROP (COMBIVENT RESPIMAT) 4 GM INHALER ONE (04:46)
[2020-09-28 04:58] LABS: BASOPHILS % (AUTO) 0 % (0-10); EOSINOPHILS # (AUTO) 0.1 10^3/uL (0.0-0.3); EOSINOPHILS % (AUTO) 1 % (0-10); HEMATOCRIT 42 % (35-52); HEMOGLOBIN 13.2 g/dL (11.5-16.0); LYMPHOCYTES # (AUTO) 1.2 10^3/uL (1.0-4.0); LYMPHOCYTES % (AUTO) 9 % (12-44); MEAN CORPUSCULAR HEMOGLOBIN 29 pg (25-34); MEAN CORPUSCULAR HGB CONC 32 g/dL (32-36); MEAN CORPUSCULAR VOLUME 92 fL (80-99); MEAN PLATELET VOLUME 9.8 fL (9.0-12.2); MONOCYTES # (AUTO) 0.3 10^3/uL (0.0-1.0); MONOCYTES % (AUTO) 2 % (0-12); NEUTROPHILS # (AUTO) 12.1 10^3/uL (1.8-7.8); NEUTROPHILS % (AUTO) 88 % (42-75); PLATELET COUNT 236 10^3/uL (130-400); WHITE BLOOD COUNT 13.8 10^3/uL (4.3-11.0)
[2020-09-28 05:41] LABS: ALBUMIN 3.7 GM/DL (3.2-4.5); CHLORIDE 109 MMOL/L (98-107); POTASSIUM 3.2 MMOL/L (3.6-5.0); SODIUM 144 MMOL/L (135-145)
[2020-09-28 05:42] LABS: CALCIUM 8.4 MG/DL (8.5-10.1)
[2020-09-28 05:44] LABS: GLUCOSE 115 MG/DL (70-105); TOTAL PROTEIN 6.3 GM/DL (6.4-8.2)
[2020-09-28 05:45] LABS: CARBON DIOXIDE 24 MMOL/L (21-32)
[2020-09-28 05:46] LABS: BILIRUBIN,TOTAL 0.7 MG/DL (0.1-1.0)
[2020-09-28 05:47] LABS: ALKALINE PHOSPHATASE 71 U/L (40-136); CREATININE SERUM 0.97 MG/DL (0.60-1.30); GFR ESTIMATED 58
[2020-09-28 05:48] LABS: BUN/CREATININE RATIO 20
[2020-09-28 05:50] LABS: ALANINE AMINOTRANSFERASE 32 U/L (0-55)
[2020-09-28 05:51] LABS: CREATINE KINASE 46 U/L (29-168); MAGNESIUM 1.8 MG/DL (1.6-2.4)
[2020-09-28 05:53] LABS: FIBRIN DEGRADATION PRODUCTS 0.36 UG/ML (0.00-0.49)
[2020-09-28 06:05] LABS: ERYTHROCYTE SEDIMENTATION RATE 10 MM/HR (0-30)
[2020-09-28 06:28] LABS: CREATINE KINASE MB 0.6 NG/ML (<6.6)
--- NOTE | 2020-09-28 06:30 | Diagnostic Imaging Report ---
INDICATION: Short of air, cough and congestion. FINDINGS: Upright portable chest shows normal heart size and vascularity. There are patchy bilateral infiltrates which is a change from 09/14/2020 study. No consolidations are seen. These findings are consistent with bilateral pneumonia. There is no effusion or pneumothorax. IMPRESSION: There are patchy bilateral infiltrates present. Dictated by: Dictated on workstation # [id number]
--- NOTE | 2020-09-28 06:42 | ED Respiratory ---
General Chief Complaint: Respiratory Problems Stated Complaint: COPD,ASTHMA,SOB Nursing Triage Note: TO ED VIA POV TO ROOM 8 STATING, "I CAN'T BREATHE". 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 Source: patient History of Present Illness Date Seen by Provider: Sep 28, 2020 Time Seen by Provider: 04:33 Initial Comments PT ARRIVES VIA POV FROM HOME--PT STATES SHE LIVES ALONE PT STATES SHE WOKE UP AT 0300 WITH SHORTNESS OF BREATH STATES SHE ALSO BEGAN COUGHING AT THAT TIME, NON-PRODUCTIVE COUGH C/O CHILLS/BEING VERY COLD--HAS NOT CHECKED TEMP--TEMP IS 100.4 ON ARRIVAL HERE C/O HEADACHE C/O BODY ACHES C/O NAUSEA AND VOMITING IN THE PARKING LOT NO LOSS OF TASTE OR SMELL PT HAS COPD AND USED ALBUTEROL NEBULIZER TREATMENT AT 0330 WITHOUT RELIEF PT DOES NOT WEAR/DOES NOT HAVE HOME O2. HAS HAD MULTIPLE VISITS FOR COPD RELATED PROBLEMS NO KNOWN SICK CONTACTS OR KNOWN EXPOSURE TO COVID-19. PT TESTED NEGATIVE FOR COVID-19 ON 09/14/20, AND HAD A NEGATIVE CXR AT THAT TIME. PCP: [facility] Jazmín TATE Allergies and Home Medications Allergies Coded Allergies: Sulfa (Sulfonamide Antibiotics) (Unverified Allergy, Unknown, 06/08/14) Home Medications Albuterol Sulfate 1 Puff Puff, 2 PUFF IH Q4H PRN for SHORTNESS OF BREATH, (Re ported) Atorvastatin Calcium 20 Mg Tablet, 20 MG PO HS, (Reported) Celecoxib 100 Mg Capsule, 100 MG PO BID, (Reported) Cetirizine HCl 10 Mg Tablet, 10 MG PO DAILY, (Reported) Fluoxetine HCl 20 Mg Capsule, 20 MG PO DAILY, (Reported) TAKES 20MG +60MG TO EQUAL 80MG DAILY Fluoxetine HCl 60 Mg Tablet, 60 MG PO DAILY, (Reported) TAKES 20MG +60MG TO EQUAL 80MG DAILY Fluticasone Propionate 16 Gm [place].susp, 2 SPRAYS NS BID PRN for ALLERGIES, (R eported) Fluticasone/Salmeterol 1 Each Blst.w.dev, 1 PUFF IH BID, (Reported) Furosemide 20 Mg Tablet, 20 MG PO Q48H, (Reported) Gabapentin 300 Mg Capsule, 300 MG PO TID, (Reported) Ipratropium/Albuterol Sulfate 3 Ml Ampul.neb, 3 ML IH Q6H PRN for SHORTNESS OF BREATH, (Reported) Levothyroxine Sodium 25 Mcg Tablet, 37.5 MCG PO DAILY, (Reported) Meclizine HCl 25 Mg Tablet, 25 MG PO BID PRN for DIZZINESS, (Reported) Montelukast Sodium 10 Mg Tablet, 10 MG PO HS, (Reported) Multivitamin 1 Each Tablet, 1 TAB PO DAILY, (Reported) Omeprazole 40 Mg Capsule.dr, 40 MG PO BID, (Reported) Quetiapine Fumarate 100 Mg Tablet, 100 MG PO HS, (Reported) Trazodone HCl 50 Mg Tablet, 50-75 MG PO HS, (Reported) Umeclidinium Brm/Vilanterol Tr 1 Each Blst.w.dev, 1 EACH IH HS, (Reported) Patient Home Medication List Home Medication List Reviewed: Yes Review of Systems Review of Systems Constitutional: see HPI, fever EENTM: no symptoms reported Respiratory: see HPI, cough, short of breath Cardiovascular: No chest pain Gastrointestinal: see HPI; No abdominal pain; nausea, vomiting Genitourinary: no symptoms reported Musculoskeletal: see HPI (BODY ACHES) Skin: no symptoms reported Psychiatric/Neurological: Headache Hematologic/Lymphatic: No Symptoms Reported Immunological/Allergic: no symptoms reported Past Qdypzrb-Pvcmqc-Zsrwui Hx Past Med/Social Hx: Reviewed and Corrections made Patient Social History Alcohol Use: Denies Use Recreational Drug Use: No Smoking Status: Never a Smoker 2nd Hand Smoke Exposure: No Recent Foreign Travel: No Contact w/Someone Who Travel: No Recent Infectious Disease Expo: No Recent Hopitalizations: No Immunizations Up To Date Tetanus Booster (TDap): Unknown Date of Pneumonia Vaccine: Jul 24, 2017 Date of Influenza Vaccine: Aug 04, 2019 Seasonal Allergies Seasonal Allergies: Yes Past Medical History Surgeries: Yes (HIATAL HERNIA REPAIR, CARPAL TUNNEL; BRONCHOSCOPY) Abdominal, Appendectomy, Gallbladder, Hysterectomy, Orthopedic Respiratory: Yes Asthma, COPD Currently Using CPAP: No Currently Using BIPAP: No Cardiac: No Neurological: No : No 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 Disorders: No 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, Menopausal Genitourinary: No Gastrointestinal: Yes Gastroesophageal Reflux, Hiatal Hernia Musculoskeletal: Yes Arthritis Endocrine: Yes Hypothyroidsim HEENT: No Loss of Vision: Bilateral Hearing Impairment: Denies Cancer: No Psychosocial: Yes Anxiety, Depression Integumentary: No Blood Disorders: No Adverse Reaction/Blood Tranf: No Family Medical History Cardiovascular disease 19 MOTHER Heart Disease Physical Exam Vital Signs - First Documented 09/28/20 04:34 Temp 38.0 Pulse 100 Resp 18 B/P (MAP) 122/55 (77) Pulse Ox 98 O2 Delivery Nasal Cannula O2 Flow Rate 2.00 Capillary Refill : Less Than 3 Seconds Height: 5'2.00" Weight: 177lbs. 0oz. 80.568358ur; 31.00 BMI Method:Stated General Appearance: WD/WN, other (MILDLY DYSPNEIC ON ARRIVAL) Neck: normal inspection Respiratory: decreased breath sounds (IN BASES), accessory muscle use (MILD), other (MILDLY DYSPNEIC ON ARRIVAL) Cardiovascular: no edema, no JVD, no murmur, tachycardia Gastrointestinal: normal bowel sounds, non tender, soft, no organomegaly Extremities: normal inspection, no pedal edema, no calf tenderness, normal capillary refill Neurologic/Psychiatric: tacker elastic band II-XII nml as tested, no motor/sensory deficits, alert, oriented x 3, other (MILDLY ANXIOUS) Skin: normal color, warm/dry Focused Exam Lactate Level Lactic Acid Level Laboratory Tests Test 09/28/20 00:43 09/28/20 06:39 Lactic Acid Level 2.36 MMOL/L (0.50-2.00) *H 2.45 MMOL/L (0.50-2.00) *H Progress/Results/Core Measures Suspected Sepsis Recent Fever Within 48 Hours: No Infection Criteria Present: Documented Infection New/Unexplained Altered Menta: No Sepsis Screen: No Definite Risk SIRS Temperature: Pulse: 100 Respiratory Rate: 18 Laboratory Tests 09/28/20 00:43: White Blood Count 13.8H Blood Pressure 122 /55 Mean: 77 Laboratory Tests 09/28/20 00:43: Creatinine 0.97, INR Comment 1.0, Platelet Count 236, Total Bilirubin 0.7 Results/Orders Lab Results Laboratory Tests Test 09/28/20 00:43 09/28/20 00:45 09/28/20 06:39 Range/Units White Blood Count 13.8 H 4.3-11.0 10^3/uL Red Blood Count 4.53 3.80-5.11 10^6/uL Hemoglobin 13.2 11.5-16.0 g/dL Hematocrit 42 35-52 % Mean Corpuscular Volume 92 80-99 fL Mean Corpuscular Hemoglobin 29 25-34 pg Mean Corpuscular Hemoglobin Concent 32 32-36 g/dL Red Cell Distribution Width 14.0 10.0-14.5 % Platelet Count 236 130-400 10^3/uL Mean Platelet Volume 9.8 9.0-12.2 fL Immature Granulocyte % (Auto) 0 % Neutrophils (%) (Auto) 88 H 42-75 % Lymphocytes (%) (Auto) 9 L 12-44 % Monocytes (%) (Auto) 2 0-12 % Eosinophils (%) (Auto) 1 0-10 % Basophils (%) (Auto) 0 0-10 % Neutrophils # (Auto) 12.1 H 1.8-7.8 10^3/uL Lymphocytes # (Auto) 1.2 1.0-4.0 10^3/uL Monocytes # (Auto) 0.3 0.0-1.0 10^3/uL Eosinophils # (Auto) 0.1 0.0-0.3 10^3/uL Basophils # (Auto) 0.0 0.0-0.1 10^3/uL Immature Granulocyte # (Auto) 0.1 0.0-0.1 10^3/uL Erythrocyte Sedimentation Rate 10 0-30 MM/HR Prothrombin Time 13.0 12.2-14.7 SEC INR Comment 1.0 0.8-1.4 Activated Partial Thromboplast Time 28 24-35 SEC D-Dimer 0.36 0.00-0.49 UG/ML Sodium Level 144 135-145 MMOL/L Potassium Level 3.2 L 3.6-5.0 MMOL/L Chloride Level 109 H 98-107 MMOL/L Carbon Dioxide Level 24 21-32 MMOL/L Anion Gap 11 5-14 MMOL/L Blood Urea Nitrogen 19 H 7-18 MG/DL Creatinine 0.97 0.60-1.30 MG/DL Estimat Glomerular Filtration Rate 58 BUN/Creatinine Ratio 20 Glucose Level 115 H 70-105 MG/DL Lactic Acid Level 2.36 *H 2.45 *H 0.50-2.00 MMOL/L Calcium Level 8.4 L 8.5-10.1 MG/DL Corrected Calcium 8.6 8.5-10.1 MG/DL Magnesium Level 1.8 1.6-2.4 MG/DL Total Bilirubin 0.7 0.1-1.0 MG/DL Aspartate Amino Transf (AST/SGOT) 20 5-34 U/L Alanine Aminotransferase (ALT/SGPT) 32 0-55 U/L Alkaline Phosphatase 71 40-136 U/L Lactate Dehydrogenase 236 H 125-220 U/L Total Creatine Kinase 46 29-168 U/L Creatine Kinase MB 0.6 <6.6 NG/ML Troponin I < 0.028 <0.028 NG/ML C-Reactive Protein High Sensitivity 0.16 0.00-0.50 MG/DL B-Type Natriuretic Peptide < 10.0 <100.0 PG/ML Total Protein 6.3 L 6.4-8.2 GM/DL Albumin 3.7 3.2-4.5 GM/DL Procalcitonin 0.02 <0.10 NG/ML Coronavirus 2019 ([facility]) Negative Negative Micro Results Microbiology 09/28/20 Influenza Types A,B Antigen (MAL) - Final, Complete 09/28/20 Blood Culture - Preliminary, Resulted No growth 09/28/20 Blood Culture - Preliminary, Resulted No growth My Orders Orders - KERVIN LIAO DO Ed Iv/Invasive Line Start (09/28/20 04:29) Ekg Tracing (09/28/20 04:29) Monitor-Rhythm Ecg Trace Only (09/28/20 04:29) BNP (09/28/20 04:29) Cbc With Automated Diff (09/28/20 04:29) Comprehensive Metabolic Panel (09/28/20 04:29) Creatine Kinase (09/28/20 04:29) Creatine Kinase Mb (09/28/20 04:29) Magnesium (09/28/20 04:29) Protime With Inr (09/28/20 04:29) Partial Thromboplastin Time (09/28/20 04:29) Influenza A And B Antigens (09/28/20 04:29) Troponin I (09/28/20 04:29) Chest 1 View, Ap/Pa Only (09/28/20 04:29) Methylprednisolone Sod Succ (Solu-Medrol (09/28/20 04:30) Acetaminophen Tablet (Tylenol Tablet) (09/28/20 04:45) Albuterol/Ipratropium Inhaler (Combivent (09/28/20 09:00) Fluticasone/Salmeterol 115/21 (Advair Hf (09/28/20 08:00) Lactic Acid Analyzer (09/28/20 04:43) Procalcitonin (Pct) (09/28/20 04:43) Blood Culture (09/28/20 04:43) Fibrin Degradation Products (09/28/20 04:43) Hs C Reactive Protein (09/28/20 04:43) Erythrocyte Sedimentation Rate (09/28/20 04:43) LDH (09/28/20 04:43) Covid 19 Inhouse Test (09/28/20 04:43) Fluticasone/Salmeterol 115/21 (Advair Hf (09/28/20 04:46) Albuterol/Ipratropium Inhaler (Combivent (09/28/20 04:46) Ct Angio Chest W (09/28/20 05:53) Coronavirus Sars-Cov-2 So 2018 (09/28/20 06:10) Ceftriaxone For Iv Use (Rocephin For I (09/28/20 06:45) Azithromycin Injection (Zithromax Inject (09/28/20 06:45) Iohexol Injection (Omnipaque 350 Mg/Ml 1 (09/28/20 07:15) Received Contrast (Hold Metformin- Contr (09/28/20 07:15) Sodium Chloride Flush (Catheter Flush Sy (09/28/20 07:15) Ns (Ivpb) (Sodium Chloride 0.9% Ivpb Bag (09/28/20 07:15) Medications Given in ED Vital Signs/I&O 09/28/20 09/28/20 04:34 04:48 Temp 38.0 38.0 Pulse 100 Resp 18 B/P (MAP) 122/55 (77) Pulse Ox 98 O2 Delivery Nasal Cannula O2 Flow Rate 2.00 Capillary Refill : Less Than 3 Seconds Blood Pressure Mean: 77 Progress Note : Progress Note PLACED IN ISOLATION ROOM PPE WORN AT ALL TIMES COVID-19 TESTING PERFORMED PT ADVISED OF NEED FOR QUARANTINE O2 SATS 86-87% ON ROOM AIR ON ARRIVAL,, UP TO MID 90'S ON O2 AT 2L/NC GIVEN COMBIVENT AND ADVAIR INHALER TREATMENTS WITH IMPROVEMENT IN DYSPNEA GIVEN TYLENOL FOR FEVER GIVEN ZOFRAN FOR NAUSEA, WITH IMPROVEMENT NO DETERIORATION IN PT'S CONDITION DURING ER STAY ECG Initial ECG Impression Date: Sep 28, 2020 Initial ECG Impression Time: 04:39 Initial ECG Rate: 95 Initial ECG Rhythm: Normal Sinus Diagnostic Imaging Comments CXR--PER RADIOLOGIST REPORT AT 0636 FINDINGS: Upright portable chest shows normal heart size and vascularity. There are patchy bilateral infiltrates which is a change from 09/14/2020 study. No consolidations are seen. These findings are consistent with bilateral pneumonia. There is no effusion or pneumothorax. IMPRESSION: There are patchy bilateral infiltrates present. CT CHEST ANGIOGRAM--PER RADIOLOGIST REPORT AT 0746 IMPRESSION: The groundglass infiltrates in the left upper lobe has resolved. There has developed basilar atelectasis and tree-in-bud type of infiltrates in the left lower lobe. These type of infiltrates are consistent with an inflammatory/infectious process but less commonly associated with COVID pneumonia compared to the groundglass type of infiltrates. Reviewed: Reviewed by Hi Departure Communication (Admissions) 0748--SPOKE WITH DR. TUCKER, HOSPITALIST FOR [facility] [place] ACCEPTS PT FOR ADMIT. NO ADDITIONAL ORDERS AT THIS TIME. Impression Primary Impression: Person under investigation for COVID-19 Additional Impressions: COPD exacerbation Bilateral pneumonia Acute respiratory failure with hypoxia Sepsis Disposition: ADMITTED INPATIENT Condition: Improved Admissions Decision to Admit Reason: Admit from ER (General) Decision to Admit/Date: Sep 28, 2020 Time/Decision to Admit Time: 07:45 Departure-Patient Inst. Referrals: [facility] (PCP/Family) Primary Care Physician KERVIN LIAO DO Sep 28, 2020 06:42
[2020-09-28] MEDS ORDERED: AZITHROMYCIN INJECTION 500 MG in NS (IVPB) 250 ML IV ONE (06:45)
[2020-09-28] MEDS ORDERED: cefTRIAXone FOR IV USE 1,000 MG in WATER (STERILE) FOR INJECTION 10 ML IV ONE (06:45)
[2020-09-28] MEDS ORDERED: HOLD METFORMIN - RECEIVED CONTRAST 20 ML VIAL IV SCH (07:15)
[2020-09-28] MEDS ORDERED: IOHEXOL 350 MG/ML 100 ML (OMNIPAQUE 350) VIAL IV ONE (07:15)
[2020-09-28] MEDS ORDERED: CATHETER FLUSH 10 ML SYR IV PRN (07:15)
[2020-09-28] MEDS ORDERED: NS 100 ML (IVPB) BAG IV ONE (07:15)
--- NOTE | 2020-09-28 07:43 | Diagnostic Imaging Report ---
PROCEDURE: CT angiography of the chest with contrast. TECHNIQUE: Multiple contiguous axial images were obtained through the chest after uneventful bolus administration of intravenous contrast. 3D reconstructed CTA MIP acquisitions were also performed. Auto Exposure Controls were utilized during the CT exam to meet ALARA standards for radiation dose reduction. INDICATION: Respiratory distress. History of COVID. Short of air Comparison is made with a study from 05/17/2020. The previously seen groundglass infiltrates in the left upper lobe have resolved. There has developed some atelectasis and patchy tree-in-bud type of infiltrates in the left lower lobe. The right lung is well-expanded. There is no effusion or pneumothorax. There is no mediastinal mass or hemorrhage. There is no aortic aneurysm or dissection. There is respiratory artifact present which may obscure subtle abnormalities but no pulmonary embolus is seen. IMPRESSION: The groundglass infiltrates in the left upper lobe has resolved. There has developed basilar atelectasis and tree-in-bud type of infiltrates in the left lower lobe. These type of infiltrates are consistent with an inflammatory/infectious process but less commonly associated with COVID pneumonia compared to the groundglass type of infiltrates. Report was faxed to [facility]RN Infection Control by panda at 7:42AM. Dictated by: Dictated on workstation # [id number]
[2020-09-28] MEDS ORDERED: ALBUTEROL/IPRATROP (COMBIVENT RESPIMAT) 4 GM INHALER IH ONE (09:00)
--- NOTE | 2020-09-28 09:59 | History & Physical-Hospitalist ---
History of Present Illness HPI/Chief Complaint CC: Dyspnea HPI: This is a 65yoWF clinic pt of [facility] and Dr. García who has frequent hospital stays due to recurrent pneumonia. She was found to have elevated lactic acid that required IV fluids and cardiac step down admission. She was placed on Zosyn and Vanc due to high risk for facility acquired pneumonia since she has multiple hospital stays. She is a Covid rule out, her rapid test was negative. At this current time pt will receive IV fluids and close observation. Source: patient Exam Limitations: no limitations Date Seen 09/28/20 Time Seen by a Provider: 10:30 Attending Physician Keira Dhaliwal DO [facility] Referring Phys[facility] Date of Admission Sep 28, 2020 at 07:45 Home Medications & Allergies Home Medications Reviewed patient Home Medication Reconciliation performed by pharmacy medication reconciliations smt technician and/or nursing. Patients Allergies have been reviewed. Allergies Allergies Coded Allergies Sulfa (Sulfonamide Antibiotics) (Unverified Allergy, Unknown, 06/08/14) Past Ujiommq-Sygrjr-Oeumtv Hx Past Med/Social Hx: Reviewed Nursing Past Med/Soc Hx, Reviewed and Corrections made Patient Social History Marrital Status: single Employed/Student: unemployed Alcohol Use: Denies Use Recreational Drug Use: No Smoking Status: Never a Smoker 2nd Hand Smoke Exposure: No Recent Foreign Travel: No Contact w/other who traveled: No Recent Hopitalizations: No Recent Infectious Disease Expo: No Immunizations Up To Date Tetanus Booster (TDap): Unknown Date of Pneumonia Vaccine: Jul 24, 2017 Date of Influenza Vaccine: Aug 04, 2019 Seasonal Allergies Seasonal Allergies: Yes Past Medical History Surgeries: Abdominal, Appendectomy, Gallbladder, Hysterectomy, Orthopedic Respiratory: COPD, Pneumonia Currently Using CPAP: No Currently Using BIPAP: No : No 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: No Hysterectomy, Menopausal Gastrointestinal: Gastroesophageal Reflux, Hiatal Hernia Musculoskeletal: Arthritis Endocrine: Hypothyroidsim Loss of Vision: Bilateral Hearing Impairment: Denies Psychosocial: Anxiety, Depression History of Blood Disorders: No Adverse Reaction to Blood Parada: No Family History Cardiovascular disease 19 MOTHER Heart Disease Review of Systems Constitutional: see HPI, fever Respiratory: cough, dyspnea on exertion Physical Exam Physical Exam Vital Signs Vital Signs - First Documented 09/28/20 04:34 Temp 38.0 Pulse 100 Resp 18 B/P (MAP) 122/55 (77) Pulse Ox 98 O2 Delivery Nasal Cannula O2 Flow Rate 2.00 Capillary Refill : Less Than 3 Seconds Height, Weight, BMI Height: 5'2.00" Weight: 177lbs. 0oz. 80.168654ii; 31.00 BMI Method:Stated General Appearance: No Apparent Distress, Chronically ill Eyes: Right Eye Normal Inspection, Right Eye PERRL HEENT: PERRL/EOMI, Normal ENT Inspection, Pharynx Normal, Moist Mucous Membranes Neck: Full Range of Motion, Normal Inspection, Non Tender Respiratory: Chest Non Tender, Lungs Clear, Normal Breath Sounds, No Accessory Muscle Use, No Respiratory Distress Cardiovascular: Regular Rate, Rhythm, No Edema, No Gallop, No JVD, No Murmur, Normal Peripheral Pulses Gastrointestinal: Normal Bowel Sounds, No Organomegaly, No Pulsatile Mass, Non Tender, Soft Back: Normal Inspection, No CVA Tenderness, No Vertebral Tenderness Extremity: Normal Capillary Refill, Normal Inspection, Normal Range of Motion, Non Tender, No Calf Tenderness, No Pedal Edema Neurologic/Psychiatric: Alert, Oriented x3, No Motor/Sensory Deficits, Normal Mood/Affect Skin: Normal Color, Warm/Dry Lymphatic: No Adenopathy Results Results/Procedures Labs Laboratory Tests 09/28/20 00:43 09/29/20 02:15 Patient resulted labs reviewed. Assessment/Plan Admission Diagnosis Assessment: Recurrent PNA Sepsis Elevated lactic acid COPD Plan: IVF IV abx Monitor O2 COVID swab pending Admission Status: Inpatient Order (span 2 midnights) Reason for Inpatient Admission: PNA Diagnosis/Problems Diagnosis/Problems (1) CAP (community acquired pneumonia) (2) Sepsis (3) COPD exacerbation Status: KEIRA Sampson DO Sep 28, 2020 09:59
[2020-09-28] MEDS ORDERED: ONDANSETRON 4 MG/2 ML (SDV) Z0FRAN IVP PRN (11:15)
[2020-09-28] MEDS: ENOXAPARIN 40 MG/0.4 ML (LOVENOX) SYR SC SCH (11:26)
[2020-09-28] MEDS: ACETAMINOPHEN 500 MG TAB (TYLENOL) PO PRN ×2 (11:27→20:54)
[2020-09-28] MEDS ORDERED: PIPERACILLIN/TAZOBACTAM (BULK) 4.5 GM in NS (IVPB) 100 ML IV ONE (12:00)
[2020-09-28] MEDS: NS IV 1000 ML 1,000 ML IV SCH ×2 (12:04→14:20)
[2020-09-28] MEDS: POTASSIUM CL 10MEQ/50ML IVPB 50 ML IV SCH ×4 (12:06→15:45)
[2020-09-28] MEDS ORDERED: VANCOMYCIN INJECTION 2,000 MG in NS IV 500 ML 500 ML IV NR (12:30)
[2020-09-28 12:48] VITALS: BP 100/57
[2020-09-28] MEDS ORDERED: RT-ALBUTEROL INHALER HFA (VENTOLIN HFA) 18 GM IH PRN (13:00)
[2020-09-28] MEDS: RT-ALBUTEROL INHALER HFA (VENTOLIN HFA) 18 GM IH SCH ×2 (14:52→20:30)
[2020-09-28] MEDS ORDERED: UMEC1BLS IH (15:32)
[2020-09-28] MEDS ORDERED: OMEP40CA27 PO (15:42)
--- NOTE | 2020-09-28 15:51 | NUR ---
SPOKE WITH THE PT (I CALLED HER ROOM PHONE) AND CALLED [facility] TO COMPLETE THE MED REC LIZZY FILLED THE FOLLOWING MEDS ON 07-18-2020: CELEBREX 200MG #180/90DS ZYRTEC 10MG #90/90DS THE REPOSITORY AT [facility] FILLED THE FOLLOWIN07-26-2020 MONTELUKAST 10MG #90/90DS FLUOXETINE 60MG #90/90DS FLUOXETINE 20MG #90/90DS ANORO AND ADVAIR ARE BOTH FILLED THRU THE PALS PRO[facility] [place] FILLED THE FOLLOWIN08-08-2020 FUROSEMIDE 20MG #30/60DS 09-23-2020 LEVOTHYROXINE 25MCG #45/30DS 09-23-2020 TRAZODONE 50MG #45/30DS 09-23-2020 SEROQUEL 100MG #30/30DS 09-23-2020 GABAPENTIN 300MG #90/30DS
[2020-09-28] MEDS ORDERED: FLUO60TA PO (15:57)
[2020-09-28] MEDS: PIPERACILLIN/TAZOBACTAM (BULK) 4.5 GM in NS (IVPB) 100 ML IV SCH (17:39)
[2020-09-28] MEDS ORDERED: FLUTICASONE NASAL SPRAY (FLONASE) 16 GM BTL NS PRN (21:15)
[2020-09-28] MEDS ORDERED: RT-ALBUTEROL SULF 2.5 MG/3 ML PRE-MIX VIAL IH PRN (21:15)
[2020-09-28] MEDS ORDERED: RT-ALBUTEROL/IPRATROPIUM 3 ML (DUONEB) VIAL IH PRN (21:15)
[2020-09-28] MEDS ORDERED: FUROSEMIDE 20 MG (LASIX) TAB PO SCH (21:15)
[2020-09-28] MEDS ORDERED: MECLIZINE 25 MG (ANTIVERT) TAB PO PRN (21:15)
[2020-09-28] MEDS: traZODone 50 MG (DESYREL) TAB PO PRN (21:30)
[2020-09-28] MEDS ORDERED: GABAPENTIN 300 MG (NEURONTIN) CAP ONE (21:33)
[2020-09-28] MEDS ORDERED: traZODone 50 MG (DESYREL) TAB ONE (21:34)
[2020-09-28] MEDS ORDERED: QUEtiapine 100 MG (SEROquel) TAB IMMEDIATE RELEASE ONE (21:34)
[2020-09-28] MEDS ORDERED: CELECOXIB 100 MG (CeleBREX) CAP PO ONE (21:37)
[2020-09-28] MEDS: QUEtiapine 100 MG (SEROquel) TAB IMMEDIATE RELEASE PO SCH (21:48)
[2020-09-28] MEDS: CELECOXIB 100 MG (CeleBREX) CAP PO SCH (21:48)
[2020-09-28] MEDS: GABAPENTIN 300 MG (NEURONTIN) CAP PO SCH (21:48)
--- NOTE | 2020-09-28 22:05 | NUR ---
CALLED DR. TUCKER AND REPORTED CRITICAL LACTIC ACID OF 2.92. RECEIVED ORDER TO STOP CHECKING LACTIC Q2HR.
[2020-09-29] MEDS: NS IV 1000 ML 1,000 ML IV SCH (01:14)
[2020-09-29] MEDS: PIPERACILLIN/TAZOBACTAM (BULK) 4.5 GM in NS (IVPB) 100 ML IV SCH ×3 (01:15→19:42)
[2020-09-29] MEDS: RT-ALBUTEROL INHALER HFA (VENTOLIN HFA) 18 GM IH SCH ×4 (02:11→18:55)
[2020-09-29 03:00] LABS: BASOPHILS % (AUTO) 0 % (0-10); EOSINOPHILS % (AUTO) 0 % (0-10); HEMATOCRIT 36 % (35-52); LYMPHOCYTES # (AUTO) 1.2 10^3/uL (1.0-4.0); LYMPHOCYTES % (AUTO) 6 % (12-44); MEAN CORPUSCULAR HEMOGLOBIN 29 pg (25-34); MEAN CORPUSCULAR HGB CONC 31 g/dL (32-36); MEAN CORPUSCULAR VOLUME 95 fL (80-99); MEAN PLATELET VOLUME 10.1 fL (9.0-12.2); MONOCYTES # (AUTO) 0.9 10^3/uL (0.0-1.0); MONOCYTES % (AUTO) 5 % (0-12); NEUTROPHILS # (AUTO) 16.9 10^3/uL (1.8-7.8); NEUTROPHILS % (AUTO) 88 % (42-75); PLATELET COUNT 197 10^3/uL (130-400); WHITE BLOOD COUNT 19.2 10^3/uL (4.3-11.0)
[2020-09-29 03:20] LABS: ALBUMIN 3.1 GM/DL (3.2-4.5); CHLORIDE 115 MMOL/L (98-107); SODIUM 141 MMOL/L (135-145)
[2020-09-29 03:21] LABS: CALCIUM 7.9 MG/DL (8.5-10.1)
[2020-09-29 03:22] LABS: GLUCOSE 103 MG/DL (70-105); TOTAL PROTEIN 5.2 GM/DL (6.4-8.2)
[2020-09-29 03:24] LABS: BILIRUBIN,TOTAL 0.7 MG/DL (0.1-1.0); CARBON DIOXIDE 18 MMOL/L (21-32)
[2020-09-29 03:26] LABS: ALKALINE PHOSPHATASE 50 U/L (40-136); CREATININE SERUM 0.74 MG/DL (0.60-1.30); GFR ESTIMATED > 60
[2020-09-29 03:27] LABS: BUN/CREATININE RATIO 19
[2020-09-29 03:29] LABS: ALANINE AMINOTRANSFERASE 33 U/L (0-55)
[2020-09-29 04:00] LABS: BAND NEUTROPHILS 1 %; LYMPHOCYTES % (MANUAL) 4 %; MONOCYTES % (MANUAL) 1 %; NEUTROPHILS % (MANUAL) 94 %; POIKILOCYTOSIS MODERATE
--- NOTE | 2020-09-29 06:04 | Progress Note - Hospitalist ---
Subjective HPI/CC On Admission Date Seen by Provider: Sep 29, 2020 Time Seen by Provider: 10:00 CC: Dyspnea HPI: This is a 65yoWF clinic pt of [facility] and Dr. García who has frequent hospital stays due to recurrent pneumonia. She was found to have elevated lactic acid that required IV fluids and cardiac step down admission. She was placed on Zosyn and Vanc due to high risk for facility acquired pneumonia since she has multiple hospital stays. She is a Covid rule out, her rapid test was negative. At this current time pt will receive IV fluids and close observation. Subjective/Events-last exam WBC 19k Lactic acid now normal Transferring patient to 4th floor today Denies pain Ambulating well Lungs remain stable Checked meds and labs Reviewed RN notes Review of Systems Pulmonary: Dyspnea, Cough Focused Exam Lactate Level 09/28/20 17:55: Lactic Acid Level 2.59*H 09/28/20 21:00: Lactic Acid Level 2.92*H 09/29/20 06:38: Lactic Acid Level 0.86 Objective Exam Vital Signs Vital Signs Date Time Temp Pulse Resp B/P (MAP) Pulse Ox O2 Delivery O2 Flow Rate FiO2 09/29/20 16:00 35.5 92 18 115/80 (92) 94 Room Air 09/29/20 12:50 2.00 2.00 Capillary Refill : Less Than 3 Seconds General Appearance: No Apparent Distress, WD/WN, Chronically ill Respiratory: Chest Non Tender, No Accessory Muscle Use, No Respiratory Distress, Crackles, Decreased Breath Sounds Cardiovascular: Regular Rate, Rhythm, No Edema, No Gallop, No JVD, No Murmur, Normal Peripheral Pulses Neurologic/Psychiatric: Alert, Oriented x3, No Motor/Sensory Deficits, Normal Mood/Affect Results/Procedures Lab Laboratory Tests 09/29/20 02:15 Patient resulted labs reviewed. Assessment/Plan Assessment and Plan Assess & Plan/Chief Complaint Assessment: Recurrent PNA Sepsis Elevated lactic acid now resolved COPD Plan: IVF Heplock today IV abx Monitor O2 COVID swab negative Diagnosis/Problems Diagnosis/Problems (1) CAP (community acquired pneumonia) (2) Sepsis (3) COPD exacerbation Status: Acute Clinical Quality Measures DVT/VTE Risk/Contraindication: Risk Factor Score Per Nursin RFS Level Per Nursing on Admit: 4+=Very High FRANCK TUCKER DO Sep 29, 2020 06:03
[2020-09-29] MEDS: GABAPENTIN 300 MG (NEURONTIN) CAP PO SCH ×3 (08:27→20:37)
[2020-09-29] MEDS: FLUoxetine HCL 20 MG (PROzac) CAP PO SCH ×2 (08:31→08:32)
[2020-09-29] MEDS: LORATADINE (CLARITIN) 10 MG TAB PO SCH (08:31)
[2020-09-29] MEDS: LEVOTHYROXINE 75 MCG (LEVOTHROID) TABLET PO SCH (08:31)
[2020-09-29] MEDS: MULTIVIT W/MINERALS TAB (THERAGRAN M) PO SCH (08:33)
[2020-09-29] MEDS: CELECOXIB 100 MG (CeleBREX) CAP PO SCH ×2 (08:33→20:37)
[2020-09-29] MEDS ORDERED: PANTOPRAZOLE 40 MG (PROTONIX) TAB PO SCH (09:00)
[2020-09-29] MEDS ORDERED: cefTRIAXone FOR IV USE 1,000 MG in WATER (STERILE) FOR INJECTION 10 ML IV SCH (09:00)
[2020-09-29] MEDS ORDERED: AZITHROMYCIN INJECTION 500 MG in NS (IVPB) 250 ML IV SCH (09:00)
[2020-09-29] MEDS ORDERED: AZITHROMYCIN 250 MG TAB (ZITHROMAX) PO SCH (09:00)
[2020-09-29] MEDS: ADVAIR HFA 115/21 MCG INHALER 8 GM IH SCH ×2 (10:45→18:55)
[2020-09-29] MEDS: ENOXAPARIN 40 MG/0.4 ML (LOVENOX) SYR SC SCH (11:54)
[2020-09-29] MEDS: VANCOMYCIN INJECTION 1,500 MG in NS IV 500 ML 500 ML IV SCH (11:55)
--- NOTE | 2020-09-29 12:11 | NUR ---
REPORT CALLED TO DULCE RN ON 4TH FLOOR. PATIENT TO BE TRANSFERRED TO ROOM 410.
--- NOTE | 2020-09-29 12:32 | NUR ---
Patient arrived to room 410 at this time via wheelchair accompanied by staff. Patient belonging (purse, phone, consumer loan underwriter, medication) in room with patient at this time. Patient alert and oriented. States she is not having any pain currently. Report previously received from [facility] at 1210
[2020-09-29 12:50] VITALS: BP 114/69
[2020-09-29] MEDS ORDERED: CALCIUM CARBONATE 500 MG (TUMS) TAB.CHEW PO PRN (14:15)
[2020-09-29 16:00] VITALS: BP 115/80
[2020-09-29 20:00] VITALS: BP 123/61
[2020-09-29] MEDS: PANTOPRAZOLE 40 MG (PROTONIX) TAB PO SCH (20:37)
[2020-09-29] MEDS: QUEtiapine 100 MG (SEROquel) TAB IMMEDIATE RELEASE PO SCH (20:37)
[2020-09-29] MEDS ORDERED: MONTELUKAST 10 MG (SINGULAIR) TAB PO SCH (21:00)
[2020-09-29] MEDS ORDERED: traZODone 50 MG (DESYREL) TAB PO PRN (21:00)
[2020-09-29] MEDS ORDERED: traZODone 50 MG (DESYREL) TAB PO SCH (21:00)
[2020-09-30 00:30] VITALS: BP 105/62
[2020-09-30] MEDS: RT-ALBUTEROL INHALER HFA (VENTOLIN HFA) 18 GM IH SCH ×2 (01:57→07:33)
[2020-09-30] MEDS: traZODone 50 MG (DESYREL) TAB PO PRN (02:03)
[2020-09-30] MEDS: ACETAMINOPHEN 500 MG TAB (TYLENOL) PO PRN (02:03)
[2020-09-30] MEDS: PIPERACILLIN/TAZOBACTAM (BULK) 4.5 GM in NS (IVPB) 100 ML IV SCH ×2 (02:52→09:39)
[2020-09-30 04:00] VITALS: BP 117/64
--- NOTE | 2020-09-30 06:57 | Progress Note - Hospitalist ---
Subjective HPI/CC On Admission CC: Dyspnea HPI: This is a 65yoWF clinic pt of [facility] and Dr. García who has frequent hospital stays due to recurrent pneumonia. She was found to have elevated lactic acid that required IV fluids and cardiac step down admission. She was placed on Zosyn and Vanc due to high risk for facility acquired pneumonia since she has multiple hospital stays. She is a Covid rule out, her rapid test was negative. At this current time pt will receive IV fluids and close observation. Focused Exam Lactate Level 09/28/20 17:55: Lactic Acid Level 2.59*H 09/28/20 21:00: Lactic Acid Level 2.92*H 09/29/20 06:38: Lactic Acid Level 0.86 Objective Exam Vital Signs Vital Signs Date Time Temp Pulse Resp B/P (MAP) Pulse Ox O2 Delivery O2 Flow Rate FiO2 09/30/20 09:00 Room Air 09/30/20 08:00 36.0 90 20 121/62 (81) 94 09/29/20 12:50 2.00 2.00 Capillary Refill : Less Than 3 Seconds Results/Procedures Lab Laboratory Tests 09/30/20 06:50 Patient resulted labs reviewed. Assessment/Plan Assessment and Plan Assess & Plan/Chief Complaint Assessment: Recurrent PNA Sepsis Elevated lactic acid now resolved COPD Plan: IVF Heplock today IV abx Monitor O2 COVID swab negative Diagnosis/Problems Diagnosis/Problems (1) CAP (community acquired pneumonia) (2) Sepsis (3) COPD exacerbation Status: Acute Clinical Quality Measures DVT/VTE Risk/Contraindication: Risk Factor Score Per Nursin RFS Level Per Nursing on Admit: 4+=Very High FRANCK TUCKER DO Sep 30, 2020 06:57
[2020-09-30 07:09] LABS: BASOPHILS % (AUTO) 0 % (0-10); EOSINOPHILS # (AUTO) 0.1 10^3/uL (0.0-0.3); EOSINOPHILS % (AUTO) 1 % (0-10); HEMATOCRIT 34 % (35-52); HEMOGLOBIN 10.8 g/dL (11.5-16.0); LYMPHOCYTES # (AUTO) 2.4 10^3/uL (1.0-4.0); LYMPHOCYTES % (AUTO) 19 % (12-44); MEAN CORPUSCULAR HEMOGLOBIN 30 pg (25-34); MEAN CORPUSCULAR HGB CONC 32 g/dL (32-36); MEAN CORPUSCULAR VOLUME 92 fL (80-99); MEAN PLATELET VOLUME 10.2 fL (9.0-12.2); MONOCYTES # (AUTO) 0.9 10^3/uL (0.0-1.0); MONOCYTES % (AUTO) 7 % (0-12); NEUTROPHILS # (AUTO) 9.5 10^3/uL (1.8-7.8); NEUTROPHILS % (AUTO) 73 % (42-75); PLATELET COUNT 189 10^3/uL (130-400)
[2020-09-30] MEDS: ADVAIR HFA 115/21 MCG INHALER 8 GM IH SCH (07:34)
[2020-09-30 07:42] LABS: ALANINE AMINOTRANSFERASE 43 U/L (0-55); ALKALINE PHOSPHATASE 53 U/L (40-136); BILIRUBIN,TOTAL 0.5 MG/DL (0.1-1.0); BUN/CREATININE RATIO 16; CALCIUM 8.4 MG/DL (8.5-10.1); CARBON DIOXIDE 19 MMOL/L (21-32); CREATININE SERUM 0.81 MG/DL (0.60-1.30); GFR ESTIMATED > 60; GLUCOSE 102 MG/DL (70-105); POTASSIUM 3.5 MMOL/L (3.6-5.0); SODIUM 138 MMOL/L (135-145); TOTAL PROTEIN 5.1 GM/DL (6.4-8.2)
[2020-09-30 08:00] VITALS: BP 121/62
[2020-09-30 08:00] LABS: CHLORIDE 111 MMOL/L (98-107)
[2020-09-30] MEDS: CELECOXIB 100 MG (CeleBREX) CAP PO SCH (08:25)
[2020-09-30] MEDS: FLUoxetine HCL 20 MG (PROzac) CAP PO SCH ×2 (08:25→08:26)
[2020-09-30] MEDS: LORATADINE (CLARITIN) 10 MG TAB PO SCH (08:27)
[2020-09-30] MEDS: GABAPENTIN 300 MG (NEURONTIN) CAP PO SCH (08:27)
[2020-09-30] MEDS: PANTOPRAZOLE 40 MG (PROTONIX) TAB PO SCH (08:27)
[2020-09-30] MEDS: MULTIVIT W/MINERALS TAB (THERAGRAN M) PO SCH (08:27)
[2020-09-30] MEDS: LEVOTHYROXINE 75 MCG (LEVOTHROID) TABLET PO SCH (08:29)
[2020-09-30] MEDS ORDERED: TROUGH ORDER-PHARMACY XX NR (11:30)
[2020-09-30 12:00] VITALS: BP 125/70
[2020-09-30] MEDS ORDERED: AMOX-358 PO (12:18)
--- NOTE | 2020-09-30 12:19 | Discharge Summary ---
Discharge Summary Hospital Course Was the Problem List Reviewed?: Yes Problems/Dx: (1) CAP (community acquired pneumonia) (2) Sepsis (3) COPD exacerbation Status: Acute Hospital Course Date of Admission: Sep 28, 2020 at 07:45 Admission Diagnosis : Family Physician/Provider: Kelechi Lan - [facility] Date of Discharge: 09/30/20 Discharge Diagnosis: Sepsis, PNA recurrent type Hospital Course: Short hospital course after admitted for respiratory failure COVID test negative and placed on IVF and IV abx and after multiple repeated elevated Lactic acids it ultimately returned to normal. Overall she was able to be transferred to 4th floor and return to baseline ambulation and off O2 and was stable for DC. Labs and Pending Lab Test: Laboratory Tests 09/30/20 06:50: White Blood Count 13.0H, Red Blood Count 3.65L, Hemoglobin 10.8L, Hematocrit 34L , Mean Corpuscular Volume 92, Mean Corpuscular Hemoglobin 30, Mean Corpuscular Hemoglobin Concent 32, Red Cell Distribution Width 14.6H, Platelet Count 189, Mean Platelet Volume 10.2, Immature Granulocyte % (Auto) 0, Neutrophils (%) (Auto) 73, Lymphocytes (%) (Auto) 19, Monocytes (%) (Auto) 7, Eosinophils (%) (Auto) 1, Basophils (%) (Auto) 0, Neutrophils # (Auto) 9.5H, Lymphocytes # (Auto) 2.4, Monocytes # (Auto) 0.9, Eosinophils # (Auto) 0.1, Basophils # (Auto) 0.0, Immature Granulocyte # (Auto) 0.0, Sodium Level 138, Potassium Level 3.5L, Chloride Level 111H, Carbon Dioxide Level 19L, Anion Gap 8, Blood Urea Nitrogen 13, Creatinine 0.81, Estimat Glomerular Filtration Rate > 60, BUN/Creatinine Ratio 16, Glucose Level 102, Calcium Level 8.4L, Corrected Calcium 9.2, Total Bilirubin 0.5, Aspartate Amino Transf (AST/SGOT) 27, Alanine Aminotransferase (ALT/SGPT) 43, Alkaline Phosphatase 53, Total Protein 5.1L, Albumin 3.0L Microbiology 09/28/20 Influenza Types A,B Antigen (MAL) - Final, Complete 09/28/20 Blood Culture - Preliminary, Resulted No growth Home Meds Active Augmentin 875-125 Tablet (Amoxicillin/Potassium Clav) 1 Each Tablet 1 Each PO BID Reported Fluoxetine HCl 60 Mg Tablet 60 Mg PO DAILY TAKES 20MG +60MG TO EQUAL 80MG DAILY Omeprazole 40 Mg Capsule.dr 40 Mg PO BID Anoro Ellipta 62.5-25 Mcg INH (Umeclidinium Brm/Vilanterol Tr) 1 Each Blst.w.dev 1 Each IH HS Furosemide 20 Mg Tablet 20 Mg PO Q48H Fluoxetine HCl 20 Mg Capsule 20 Mg PO DAILY TAKES 20MG +60MG TO EQUAL 80MG DAILY Iprat-Albut 0.5-3(2.5) mg/3 ml (Ipratropium/Albuterol Sulfate) 3 Ml Ampul.neb 3 Ml IH Q6H PRN Neurontin (Gabapentin) 300 Mg Capsule 300 Mg PO TID Meclizine HCl 25 Mg Tablet 25 Mg PO BID PRN Trazodone HCl 50 Mg Tablet 50-75 Mg PO HS Celebrex (Celecoxib) 100 Mg Capsule 100 Mg PO BID Seroquel (Quetiapine Fumarate) 100 Mg Tablet 100 Mg PO HS Advair 250-50 Diskus (Fluticasone/Salmeterol) 1 Each Blst.w.dev 1 Puff IH BID Proair Hfa (Albuterol Sulfate) 1 Puff Puff 2 Puff IH Q4H PRN Atorvastatin Calcium 20 Mg Tablet 20 Mg PO HS Levothyroxine Sodium 25 Mcg Tablet 37.5 Mcg PO DAILY Montelukast Sodium 10 Mg Tablet 10 Mg PO HS Multivitamins (Multivitamin) 1 Each Tablet 1 Tab PO DAILY Zyrtec (Cetirizine HCl) 10 Mg Tablet 10 Mg PO DAILY Fluticasone Propionate 16 Gm [place].susp 2 Sprays NS BID PRN Assessment/Pt Instructions PCP 1 week Discharge Planning: <30 minutes discharge planning Discharge Instructions Discharge Diet: No Restrictions Discharge Physical Examination Vital Signs Vital Signs Date Time Temp Pulse Resp B/P (MAP) Pulse Ox O2 Delivery O2 Flow Rate FiO2 09/30/20 09:00 Room Air 09/30/20 08:00 36.0 90 20 121/62 (81) 94 09/29/20 12:50 2.00 2.00 General Appearance: No Apparent Distress, WD/WN Respiratory: Lungs Clear Cardiovascular: Regular Rate, Rhythm Neurologic/Psychiatric: Alert, Oriented x3, No Motor/Sensory Deficits, Normal Mood/Affect Allergies: Coded Allergies: Sulfa (Sulfonamide Antibiotics) (Unverified Allergy, Unknown, 06/08/14) Discharge Summary Date of Admission Sep 28, 2020 at 07:45 Date of Discharge Discharge Date: Sep 30, 2020 Admission Diagnosis Assessment: Recurrent PNA Sepsis Elevated lactic acid COPD Plan: IVF IV abx Monitor O2 COVID swab pending Discharge Diagnosis Assessment: Recurrent PNA Sepsis Elevated lactic acid now resolved COPD Plan: IVF Heplock today IV abx Monitor O2 COVID swab negative (1) CAP (community acquired pneumonia) (2) Sepsis (3) COPD exacerbation Status: Acute Clinical Quality Measures DVT/VTE Risk/Contraindication: Risk Factor Score Per Nursin RFS Level Per Nursing on Admit: 4+=Very High FRANCK TUCKER DO Sep 30, 2020 12:19
[2020-09-30] MEDS: VANCOMYCIN INJECTION 1,500 MG in NS IV 500 ML 500 ML IV SCH (12:56)
[2020-09-30 12:59] VITALS: BP 125/70
== END 2020-09-30 14:24 | disposition home or self-care (01) | DRG 871 ==
LOC: EDUNIT# 04:19 → ER 04:22 → CSD 07:45 → 4TH 09-29 12:50
PROVIDERS: ADMIT Internal Medicine; ATTEND Internal Medicine
DX: A41.9 Sepsis, unspecified organism (principal); J18.9 Pneumonia, unspecified organism; J44.0 Chronic obstructive pulmonary disease with (acute) lower respiratory infection; J44.1 Chronic obstructive pulmonary disease with (acute) exacerbation; Z20.828 Contact with and (suspected) exposure to other viral communicable diseases; R74.02 Elevation of levels of lactic acid dehydrogenase [LDH]
CPT/HCPCS: 36415; 71045; 71275; 80053; 82550; 82553; 83605; 83615; 83735; 83880; 84145; 84484; 85007; 85025; 85027; 85379; 85610; 85652; 85730; 86141; 87040; 87635; 87804; 93005; 93041; 94640; 94760

== ENCOUNTER 2020-10-20 11:27 | Emergency (ER) | payer OTHER ==
[~2020-10-20] VITALS: Ht 157 cm; Wt 77.5 kg
[~2020-10-20 11:27] MED LIST changes: +AMOX-358 PO; -MONT10TA26 PO; +MONT10TA97 PO; +UMEC1BLS IH
[2020-10-20] MEDS ORDERED: NS IV 1000 ML 1,000 ML IV SCH (12:30)
[2020-10-20] MEDS ORDERED: ONDANSETRON 4 MG/2 ML (SDV) Z0FRAN IVP ONE (12:30)
[2020-10-20 12:35] LABS: BASOPHILS % (AUTO) 0 % (0-10); EOSINOPHILS % (AUTO) 0 % (0-10); HEMATOCRIT 46 % (35-52); HEMOGLOBIN 15.1 g/dL (11.5-16.0); LYMPHOCYTES # (AUTO) 0.3 10^3/uL (1.0-4.0); LYMPHOCYTES % (AUTO) 4 % (12-44); MEAN CORPUSCULAR HEMOGLOBIN 30 pg (25-34); MEAN CORPUSCULAR HGB CONC 33 g/dL (32-36); MEAN CORPUSCULAR VOLUME 91 fL (80-99); MEAN PLATELET VOLUME 10.7 fL (9.0-12.2); MONOCYTES # (AUTO) 0.5 10^3/uL (0.0-1.0); MONOCYTES % (AUTO) 5 % (0-12); NEUTROPHILS # (AUTO) 8.7 10^3/uL (1.8-7.8); NEUTROPHILS % (AUTO) 91 % (42-75); PLATELET COUNT 254 10^3/uL (130-400); WHITE BLOOD COUNT 9.6 10^3/uL (4.3-11.0)
[2020-10-20 12:38] LABS: POTASSIUM 3.5 MMOL/L (3.6-5.0)
[2020-10-20 12:39] LABS: CALCIUM 9.3 MG/DL (8.5-10.1)
[2020-10-20 12:40] LABS: TOTAL PROTEIN 6.8 GM/DL (6.4-8.2)
[2020-10-20 12:44] LABS: CREATININE SERUM 1.01 MG/DL (0.60-1.30); FIBRIN DEGRADATION PRODUCTS 0.42 UG/ML (0.00-0.49); PROTHROMBIN TIME PATIENT 13.4 SEC (12.2-14.7)
[2020-10-20] MEDS ORDERED: OSLT75C PO (12:55)
[2020-10-20 13:00] LABS: BAND NEUTROPHILS 11 %; LYMPHOCYTES % (MANUAL) 7 %; MONOCYTES % (MANUAL) 2 %; NEUTROPHILS % (MANUAL) 80 %
--- NOTE | 2020-10-20 13:00 | ED Cough/URI ---
General Chief Complaint: Respiratory Problems Stated Complaint: CHILLS,SOB Nursing Triage Note: pt presents to ed via pov from home with complaints of increased soa with exertion, cough, malaise, lethargy, and nausea since 0100 this am. Sepsis Screen: No Definite Risk History of Present Illness Date Seen by Provider: Oct 20, 2020 Time Seen by Provider: 12:20 Initial Comments 65-year-old female presents for shortness of air, nonproductive cough, fatigue, nausea without vomiting, and myalgias. She states that her symptoms awoke her at 1 AM today she has been using her albuterol inhaler intermittently with some improvement. She has been taking sips of water but not eating today because of the nausea. She was seen and evaluated here approximately 2-1/2 weeks ago for similar symptoms and was found to be COVID-19 negative. She denies any exposure and has been staying home. She received an influenza vaccine this year. She has a history of COPD. She does not wear oxygen or CPAP at home. Timing/Duration: this morning Severity/Quality: dry cough Prior Episodes/Possible Cause: occasional episodes Modifying Factors: Improves With Albuterol Inhaler, Improves With Lying Down, Improves With Rest Associated Symptoms: cough, fever/chills, muscle aches, shortness of breath Allergies and Home Medications Allergies Coded Allergies: Sulfa (Sulfonamide Antibiotics) (Unverified Allergy, Unknown, 06/08/14) Home Medications Albuterol Sulfate 1 Puff Puff, 2 PUFF IH Q4H PRN for SHORTNESS OF BREATH, (Reported) Amoxicillin/Potassium Clav 1 Each Tablet, 1 EACH PO BID Prescribed by: FRANCK TUCKER on 09/30/20 1218 Amoxicillin/Potassium Clav 1 Each Tablet, 1 EACH PO BID Prescribed by: KRZYSZTOF MEYER on 10/20/20 1443 Atorvastatin Calcium 20 Mg Tablet, 20 MG PO HS, (Reported) Celecoxib 100 Mg Capsule, 100 MG PO BID, (Reported) Cetirizine HCl 10 Mg Tablet, 10 MG PO DAILY, (Reported) Fluoxetine HCl 20 Mg Capsule, 20 MG PO DAILY, (Reported) TAKES 20MG +60MG TO EQUAL 80MG DAILY Fluoxetine HCl 60 Mg Tablet, 60 MG PO DAILY, (Reported) TAKES 20MG +60MG TO EQUAL 80MG DAILY Fluticasone Propionate 16 Gm [place].susp, 2 SPRAYS NS BID PRN for ALLERGIES, (Reported) Fluticasone/Salmeterol 1 Each Blst.w.dev, 1 PUFF IH BID, (Reported) Furosemide 20 Mg Tablet, 20 MG PO Q48H, (Reported) Gabapentin 300 Mg Capsule, 300 MG PO TID, (Reported) Ipratropium/Albuterol Sulfate 3 Ml Ampul.neb, 3 ML IH Q6H PRN for SHORTNESS OF BREATH, (Reported) Levothyroxine Sodium 25 Mcg Tablet, 37.5 MCG PO DAILY, (Reported) Meclizine HCl 25 Mg Tablet, 25 MG PO BID PRN for DIZZINESS, (Reported) Montelukast Sodium 10 Mg Tablet, 10 MG PO HS, (Reported) Multivitamin 1 Each Tablet, 1 TAB PO DAILY, (Reported) Omeprazole 40 Mg Capsule.dr, 40 MG PO BID, (Reported) Oseltamivir Phosphate 75 Mg Cap, 75 MG PO BID Prescribed by: KRZYSZTOF MEYER on 10/20/20 1255 Quetiapine Fumarate 100 Mg Tablet, 100 MG PO HS, (Reported) Trazodone HCl 50 Mg Tablet, 50-75 MG PO HS, (Reported) Umeclidinium Brm/Vilanterol Tr 1 Each Blst.w.dev, 1 EACH IH HS, (Reported) Patient Home Medication List Home Medication List Reviewed: Yes Review of Systems Review of Systems Constitutional: see HPI, chills, weakness EENTM: see HPI, no symptoms reported Respiratory: see HPI, cough, dyspnea on exertion, short of breath; No wheezing Cardiovascular: no symptoms reported, see HPI; No chest pain Gastrointestinal: see HPI; No abdominal pain, No constipation, No diarrhea; loss of appetite, nausea; No vomiting Musculoskeletal: see HPI, muscle weakness Skin: no symptoms reported, see HPI; No rash Psychiatric/Neurological: No Symptoms Reported, See HPI All Other Systems Reviewed Negative Unless Noted: Yes Past Pfvkved-Fjqrvh-Sdbwwi Hx Past Med/Social Hx: Reviewed Nursing Past Med/Soc Hx Patient Social History Alcohol Use: Denies Use Recreational Drug Use: No Smoking Status: Never a Smoker 2nd Hand Smoke Exposure: Yes Recent Foreign Travel: No Contact w/Someone Who Travel: No Recent Infectious Disease Expo: No Recent Hopitalizations: No Physical Abuse: No Sexual Abuse: No Mistreated: No Fear: No Immunizations Up To Date Tetanus Booster (TDap): Unknown Date of Pneumonia Vaccine: Jul 24, 2017 Date of Influenza Vaccine: Jul 05, 2020 Seasonal Allergies Seasonal Allergies: Yes Past Medical History Surgeries: Yes (HIATAL HERNIA REPAIR, CARPAL TUNNEL; BRONCHOSCOPY) Abdominal, Appendectomy, Gallbladder, Hysterectomy, Orthopedic Respiratory: Yes Asthma, COPD Currently Using CPAP: No Currently Using BIPAP: No Cardiac: Yes High Cholesterol Neurological: No 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 0oz. [id number]; 31.00 BMI Method:Stated General Appearance: WD/WN, mild distress Eyes: Bilateral Eye Normal Inspection, Bilateral Eye PERRL, Bilateral Eye EOMI HEENT: PERRL/EOMI, normal ENT inspection, TMs normal, pharynx normal Neck: non-tender, full range of motion, supple, normal inspection Respiratory: chest non-tender, lungs clear, normal breath sounds; No decreased breath sounds, No wheezing Cardiovascular: normal peripheral pulses, regular rate, rhythm Gastrointestinal: normal bowel sounds, non tender, soft Extremities: normal range of motion, non-tender, normal inspection Neurologic/Psychiatric: no motor/sensory deficits, alert, normal mood/affect, oriented x 3 Skin: warm/dry, pallor Lymphatic: no adenopathy Focused Exam Lactate Level 10/20/20 12:05: Lactic Acid Level 3.25*H 10/20/20 14:44: Lactic Acid Level 2.36*H Lactic Acid Level Laboratory Tests Test 10/20/20 12:05 10/20/20 14:44 Lactic Acid Level 3.25 MMOL/L (0.50-2.00) *H 2.36 MMOL/L (0.50-2.00) *H Progress/Results/Core Measures Suspected Sepsis Recent Fever Within 48 Hours: No Infection Criteria Present: None New/Unexplained Altered Menta: No Sepsis Screen: No Definite Risk Within 3hrs of presentation: Admin fluids, Admin ABX, D/C Instructions given to patient, Focus exam, Lactate level SIRS Temperature: Pulse: 113 Respiratory Rate: 16 Laboratory Tests 10/20/20 12:05: White Blood Count 9.6 Blood Pressure 123 /67 Mean: 85 10/20/20 12:05: Lactic Acid Level 3.25*H 10/20/20 14:44: Lactic Acid Level 2.36*H Laboratory Tests 10/20/20 12:05: Creatinine 1.01, INR Comment 1.0, Platelet Count 254, Total Bilirubin 1.0 Results/Orders Lab Results Laboratory Tests Test 10/20/20 12:05 10/20/20 12:10 10/20/20 13:41 10/20/20 14:44 Range/Units White Blood Count 9.6 4.3-11.0 10^3/uL Red Blood Count 5.01 3.80-5.11 10^6/uL Hemoglobin 15.1 11.5-16.0 g/dL Hematocrit 46 35-52 % Mean Corpuscular Volume 91 80-99 fL Mean Corpuscular Hemoglobin 30 25-34 pg Mean Corpuscular Hemoglobin Concent 33 32-36 g/dL Red Cell Distribution Width 13.2 10.0-14.5 % Platelet Count 254 130-400 10^3/uL Mean Platelet Volume 10.7 9.0-12.2 fL Immature Granulocyte % (Auto) 0 % Neutrophils (%) (Auto) 91 H 42-75 % Lymphocytes (%) (Auto) 4 L 12-44 % Monocytes (%) (Auto) 5 0-12 % Eosinophils (%) (Auto) 0 0-10 % Basophils (%) (Auto) 0 0-10 % Neutrophils # (Auto) 8.7 H 1.8-7.8 10^3/uL Lymphocytes # (Auto) 0.3 L 1.0-4.0 10^3/uL Monocytes # (Auto) 0.5 0.0-1.0 10^3/uL Eosinophils # (Auto) 0.0 0.0-0.3 10^3/uL Basophils # (Auto) 0.0 0.0-0.1 10^3/uL Immature Granulocyte # (Auto) 0.0 0.0-0.1 10^3/uL Neutrophils % (Manual) 80 % Lymphocytes % (Manual) 7 % Monocytes % (Manual) 2 % Band Neutrophils 11 % Blood Morphology Comment NORMAL Prothrombin Time 13.4 12.2-14.7 SEC INR Comment 1.0 0.8-1.4 Activated Partial Thromboplast Time 27 24-35 SEC D-Dimer 0.42 0.00-0.49 UG/ML Sodium Level 141 135-145 MMOL/L Potassium Level 3.5 L 3.6-5.0 MMOL/L Chloride Level 110 H 98-107 MMOL/L Carbon Dioxide Level 19 L 21-32 MMOL/L Anion Gap 12 5-14 MMOL/L Blood Urea Nitrogen 16 7-18 MG/DL Creatinine 1.01 0.60-1.30 MG/DL Estimat Glomerular Filtration Rate 55 BUN/Creatinine Ratio 16 Glucose Level 124 H 70-105 MG/DL Lactic Acid Level 3.25 *H 2.36 *H 0.50-2.00 MMOL/L Calcium Level 9.3 8.5-10.1 MG/DL Corrected Calcium 9.3 8.5-10.1 MG/DL Total Bilirubin 1.0 0.1-1.0 MG/DL Aspartate Amino Transf (AST/SGOT) 23 5-34 U/L Alanine Aminotransferase (ALT/SGPT) 31 0-55 U/L Alkaline Phosphatase 73 40-136 U/L C-Reactive Protein High Sensitivity 0.30 0.00-0.50 MG/DL Total Protein 6.8 6.4-8.2 GM/DL Albumin 4.0 3.2-4.5 GM/DL Coronavirus 2019 ([facility]) Negative Negative Urine Color YELLOW Urine Clarity CLEAR Urine pH 7.0 5-9 Urine Specific [place] 1.015 L 1.016-1.022 Urine Protein NEGATIVE NEGATIVE Urine Glucose (UA) NEGATIVE NEGATIVE Urine Ketones NEGATIVE NEGATIVE Urine Nitrite NEGATIVE NEGATIVE Urine Bilirubin NEGATIVE NEGATIVE Urine Urobilinogen 0.2 < = 1.0 MG/DL Urine Leukocyte Esterase NEGATIVE NEGATIVE Urine RBC (Auto) NEGATIVE NEGATIVE Urine RBC 0-2 /HPF Urine WBC 0-2 /HPF Urine Squamous Epithelial Cells RARE /HPF Urine Crystals NONE /LPF Urine Bacteria NEGATIVE /HPF Urine Casts NONE /LPF Urine Mucus NEGATIVE /LPF Urine Culture Indicated NO Micro Results Microbiology 10/20/20 Influenza Types A,B Antigen (MAL) - Final, Complete My Orders Orders - KRZYSZTOF MEYER Chest 1 View, Ap/Pa Only (10/20/20 12:25) Cbc With Automated Diff (10/20/20 12:25) Comprehensive Metabolic Panel (10/20/20 12:25) Hs C Reactive Protein (10/20/20 12:25) Protime With Inr (10/20/20 12:25) Partial Thromboplastin Time (10/20/20 12:25) Ua Culture If Indicated (10/20/20 12:25) Blood Culture (10/20/20 12:25) Influenza A And B Antigens (10/20/20 12:25) Lactic Acid Analyzer (10/20/20 12:25) Fibrin Degradation Products (10/20/20 12:25) Covid 19 Inhouse Test (10/20/20 12:25) Ed Iv/Invasive Line Start (10/20/20 12:25) Ns Iv 1000 Ml (Sodium Chloride 0.9%) (10/20/20 12:30) Ondansetron Injection (Zofran Injectio (10/20/20 12:30) Manual Differential (10/20/20 12:05) Ceftriaxone For Iv Use (Rocephin For I (10/20/20 13:30) Azithromycin Injection (Zithromax Inject (10/20/20 13:30) Medications Given in ED Current Medications Medications Dose Ordered Sig/Basilio Route Start Time Stop Time Status Last Admin Dose Admin Azithromycin 500 mg/Sodium Chloride 255 ml @ 250 mls/hr ONCE ONCE IV 10/20/20 13:30 10/20/20 14:31 DC 10/20/20 13:43 250 MLS/HR Ceftriaxone Sodium 1000 mg/ Sterile Water 10 ml @ 200 mls/hr ONCE ONCE IV 10/20/20 13:30 10/20/20 13:32 DC 10/20/20 13:43 200 MLS/HR Ondansetron HCl 4 mg ONCE ONCE IVP 10/20/20 12:30 10/20/20 12:31 DC 10/20/20 12:53 4 MG Vital Signs/I&O 10/20/20 12:00 Temp 37.7 Pulse 113 Resp 16 B/P (MAP) 123/67 (85) Pulse Ox 94 Capillary Refill : Less Than 3 Seconds Blood Pressure Mean: 85 Progress Note : Time: 12:20 Progress Note Patient seen and evaluated, will obtain labs, normal saline 1 L per nasal cannul a, Zofran 4 mg IV for nausea, chest x-ray and continue to monitor. 1250 influenza A positive, rapid COVID-19 negative. 1320 IV infiltrated, will restart and give IV antibiotics, finish IV fluids. 1400 patient has no complaints, temp 99.2, HR 88 1445 repeat lactic acid 2.35, IV fluids have not completed infusing, 200 ml left. Patient has been drinking 12 oz of water every hour, since admission. Temp 99.2 1515 B/P 120/76, HR 85-95, SaO2 95% on RA. Patient reports to be feeling slightly better, discharge instructions and return precautions reviewed with her. Stressed the importance of starting the Tamiflu right away as well as taking her antibiotics and using her inhaler. Diagnostic Imaging Diagonstic Imaging: Xray Plain Films/CT/US/NM/MRI: chest Comments NAME: DEON SERVIN [facility] REC#: [id number] PT STATUS: REG ER : 1955 PHYSICIAN: KRZYSZTOF MEYERP ADMIT DATE: 10/20/20/ER Draft Date of Exam:10/20/20 CHEST 1 VIEW, AP/PA ONLY EXAMINATION: Chest radiograph, portable AP view. DATE: 10/20/2020 1:06 PM INDICATION: 65-year-old female, shortness of breath. COMPARISON: September 28, 2020. FINDINGS: Stable overall appearance of the cardiomediastinal silhouette. There is no identified pneumothorax. There is opacification along the peripheral aspect of the left lung which appears increased since the comparison exam. There are mildly prominent pulmonary vascular markings with similar appearance to the prior study. IMPRESSION: 1. Interval increase in opacification along the lateral aspect of the left lung which could relate to an airspace consolidative process and/or effusion. 2. Mildly prominent pulmonary vascular markings with similar appearance to the prior chest radiograph. Atypical infection and interstitial edema are both differential diagnostic considerations. Dictated on workstation # [id number] Dict: 10/20/20 1314 Trans: 10/20/20 1318 [facility] [id number] Interpreted by: TERNTON HONG MD Electronically signed by: Reviewed: Reviewed by Me Departure Impression Primary Impression: Influenza A Additional Impressions: COPD (chronic obstructive pulmonary disease) Qualified Codes: J44.9 - Chronic obstructive pulmonary disease, unspecified Pneumonia Qualified Codes: J18.9 - Pneumonia, unspecified organism Disposition: 01 HOME, SELF-CARE Condition: Stable Departure-Patient Inst. Decision time for Depature: 15:15 Referrals: [facility] (PCP/Family) Primary Care Physician Patient Instructions: Cough, Adult (DC), Flu, Adult (DC) Add. Discharge Instructions: Use inhaler every 4 hours, 2 puffs. Take antibiotics and Tamiflu as prescribed. Follow-up with your primary care provider in 2 to 3 days if symptoms are not improving or worsen. Increase water intake, 16 ounces every 2 hours while awake. Progress activity as tolerated. Return to the emergency department for new, urgent healthcare needs. All discharge instructions reviewed with patient and/or family. Voiced understanding. Scripts Amoxicillin/Potassium Clav (Augmentin 875-125 Tablet) 1 Each Tablet 1 EACH PO BID, #20 TAB 0 Refills Prov: KRZYSZTOF MEYER 10/20/20 Oseltamivir Phosphate (Tamiflu) 75 Mg Cap 75 MG PO BID, #10 CAP 0 Refills Prov: KRZYSZTOF MEYER 10/20/20 KRZYSZTOF MEYER Oct 20, 2020 12:59
[2020-10-20 13:01] LABS: RBC MORPH NORMAL
--- NOTE | 2020-10-20 13:19 | Diagnostic Imaging Report ---
EXAMINATION: Chest radiograph, portable AP view. DATE: 10/20/2020 1:06 PM INDICATION: 65-year-old female, shortness of breath. COMPARISON: September 28, 2020. FINDINGS: Stable overall appearance of the cardiomediastinal silhouette. There is no identified pneumothorax. There is opacification along the peripheral aspect of the left lung which appears increased since the comparison exam. There are mildly prominent pulmonary vascular markings with similar appearance to the prior study. IMPRESSION: 1. Interval increase in opacification along the lateral aspect of the left lung which could relate to an airspace consolidative process and/or effusion. 2. Mildly prominent pulmonary vascular markings with similar appearance to the prior chest radiograph. Atypical infection and interstitial edema are both differential diagnostic considerations. Dictated by: Dictated on workstation # [id number]
[2020-10-20] MEDS ORDERED: cefTRIAXone FOR IV USE 1,000 MG in WATER (STERILE) FOR INJECTION 10 ML IV ONE (13:30)
[2020-10-20] MEDS ORDERED: AZITHROMYCIN INJECTION 500 MG in NS (IVPB) 250 ML IV ONE (13:30)
[2020-10-20 13:48] LABS: BILIRUBIN,URINE NEGATIVE (NEGATIVE); CLARITY,URINE CLEAR; COLOR,URINE YELLOW; GLUCOSE, URINE (UA) NEGATIVE (NEGATIVE); KETONES,URINE NEGATIVE (NEGATIVE); LEUKOCYTE ESTERASE ,URINE NEGATIVE (NEGATIVE); NITRITE,URINE NEGATIVE (NEGATIVE); PROTEIN,URINE NEGATIVE (NEGATIVE)
[2020-10-20 14:05] LABS: BACTERIA,URINE NEGATIVE /HPF; RBC,URINE 0-2 /HPF; SQUAMOUS EPITHELIAL CELL,UR RARE /HPF; WBC,URINE 0-2 /HPF
[2020-10-20] MEDS ORDERED: AMOX-358 PO (14:43)
[2020-10-20 16:21] VITALS: BP 111/68
== END 2020-10-20 16:21 | disposition home or self-care (01) ==
LOC: EDUNIT# 11:27 → ER 11:29
DX: J10.1 Influenza due to other identified influenza virus with other respiratory manifestations (principal); J44.9 Chronic obstructive pulmonary disease, unspecified; J18.9 Pneumonia, unspecified organism; K21.9 Gastro-esophageal reflux disease without esophagitis; E78.00 Pure hypercholesterolemia, unspecified; E03.9 Hypothyroidism, unspecified; F32.9 Major depressive disorder, single episode, unspecified; F41.9 Anxiety disorder, unspecified; Z20.828 Contact with and (suspected) exposure to other viral communicable diseases; Z88.2 Allergy status to sulfonamides; Z82.49 Family history of ischemic heart disease and other diseases of the circulatory system; Z79.890 Hormone replacement therapy; Z77.22 Contact with and (suspected) exposure to environmental tobacco smoke (acute) (chronic)
CPT/HCPCS: 71045; 80053; 81000; 83605; 85007; 85027; 85379; 85610; 85730; 86141; 87040; 87804; 99284; U0002; 36415; 87635

== ENCOUNTER → 2020-11-17 | Outpatient (CLI) | payer OTHER ==
[~2020-11-17] MED LIST changes: +OSLT75C PO
[2020-11-17 15:46] LABS: BASOPHILS # (AUTO) 0.1 10^3/uL (0.0-0.1); BASOPHILS % (AUTO) 1 % (0-10); EOSINOPHILS # (AUTO) 0.2 10^3/uL (0.0-0.3); EOSINOPHILS % (AUTO) 3 % (0-10); HEMATOCRIT 43 % (35-52); HEMOGLOBIN 13.8 g/dL (11.5-16.0); LYMPHOCYTES # (AUTO) 2.2 10^3/uL (1.0-4.0); LYMPHOCYTES % (AUTO) 38 % (12-44); MEAN CORPUSCULAR HEMOGLOBIN 29 pg (25-34); MEAN CORPUSCULAR HGB CONC 32 g/dL (32-36); MEAN CORPUSCULAR VOLUME 89 fL (80-99); MEAN PLATELET VOLUME 10.2 fL (9.0-12.2); MONOCYTES # (AUTO) 0.6 10^3/uL (0.0-1.0); MONOCYTES % (AUTO) 10 % (0-12); NEUTROPHILS # (AUTO) 2.6 10^3/uL (1.8-7.8); NEUTROPHILS % (AUTO) 47 % (42-75); PLATELET COUNT 256 10^3/uL (130-400); WHITE BLOOD COUNT 5.6 10^3/uL (4.3-11.0)
[2020-11-17 16:13] LABS: CREATININE SERUM 1.07 MG/DL (0.60-1.30)
--- NOTE | 2020-11-17 17:29 | Diagnostic Imaging Report ---
EXAM: PA and lateral chest at 3:53 PM INDICATION: Pneumonia The appearance of the chest has improved since the prior exam of 10/20/2020 as the heart has decreased in size and both lungs do seem much better aerated. There is only a very small amount of residual atelectasis/infiltrate in the right infrahilar region and in the periphery of the left midlung. There may be a small amount of fluid in each lung base. The pulmonary congestion noted on the prior exam appears to have resolved. The mediastinum is not widened. The osseous structures are intact. IMPRESSION: 1. The appearance of the chest has improved as the heart has decreased in size and the pulmonary congestion noted previously has essentially resolved. Both lungs are also much better aerated. 2. A follow-up exam would be recommended if clinically indicated. Dictated by: Dictated on workstation # [id number]
== END ==
LOC: RAD 15:31
PROVIDERS: ATTEND Nurse Practitioner Family
DX: J18.9 Pneumonia, unspecified organism (principal)
CPT/HCPCS: 36415; 71046; 82565; 84520; 85025

== ENCOUNTER → 2021-01-05 | Outpatient (CLI) | payer OTHER ==
[~2021-01-05] MED LIST changes: +CATHETER FLUSH 10 ML SYR IV PRN; +HOLD METFORMIN - RECEIVED CONTRAST 20 ML VIAL IV SCH; +IOHEXOL 350 MG/ML 100 ML (OMNIPAQUE 350) VIAL IV ONE; +MONT10TA32 PO; -MONT10TA97 PO; +NS 100 ML (IVPB) BAG IV ONE; +RT-ALBUTEROL SULF 2.5 MG/3 ML PRE-MIX VIAL INH ONE
[2021-01-05 14:11] LABS: CREATININE SERUM 0.85 MG/DL (0.60-1.30); GFR ESTIMATED > 60
[2021-01-05 14:12] LABS: BUN/CREATININE RATIO 18
--- NOTE | 2021-01-05 15:55 | Diagnostic Imaging Report ---
PROCEDURE: CT chest with contrast only. TECHNIQUE: Multiple contiguous axial images were obtained through the chest after administration of intravenous contrast. Auto Exposure Controls were utilized during the CT exam to meet ALARA standards for radiation dose reduction. INDICATION: Pneumonia COMPARISON: CTs dated 09/28/2020, 05/17/2020, 03/21/2015 and radiographs dated 11/17/2020 FINDINGS: No significant adenopathy within the chest. No aneurysmal dilatation of the thoracic aorta. The heart is within normal limits in size. No significant pericardial effusion. No pleural effusion. No pneumothorax. Minimal left basilar fibrosis and/or atelectasis is present. However, previously noted nodularity within the left lower lobe has resolved. 0.4 cm subpleural right upper lobe pulmonary nodule is unchanged since 2014 and benign. Subcentimeter pleural-based right lower lobe pulmonary nodules near the right hemidiaphragm are unchanged since 2014 and benign. Sub-zero 0.4 cm right middle lobe pulmonary nodules are again identified and unchanged. No new suspicious focal pulmonary nodule or opacity. The trachea is patent. Tiny hiatal hernia. Hypodensities are present within the left hepatic lobe, appearing relatively similar to 2015. Cholecystectomy. Patent 1.3 x 1.1 cm splenic artery aneurysm is present, not significantly changed since 2015. Curvature of the spine is again noted with multilevel scattered degenerative changes. No acute osseous abnormality. IMPRESSION: No acute abnormality with interval clearance of previously noted left lower lobe infiltrate. Stable subcentimeter right-sided pulmonary nodules which are unchanged since 2014 and benign. No new suspicious pulmonary nodule or opacity. Stable 1.3 cm splenic artery aneurysm, unchanged since 2014. Mild scattered atelectasis versus fibrosis. Dictated by: Dictated on workstation # [id number]
== END ==
LOC: RT 13:39
PROVIDERS: ATTEND Nurse Practitioner Family
DX: J18.9 Pneumonia, unspecified organism (principal); R91.8 Other nonspecific abnormal finding of lung field; I72.8 Aneurysm of other specified arteries; Z90.49 Acquired absence of other specified parts of digestive tract
CPT/HCPCS: 36415; 71260; 82565; 84520; 94060; 94726; 94729

== ENCOUNTER → 2021-07-13 | Outpatient (CLI) | payer MEDICARE ==
[~2021-07-13] MED LIST changes: -CATHETER FLUSH 10 ML SYR IV PRN; -HOLD METFORMIN - RECEIVED CONTRAST 20 ML VIAL IV SCH; -IOHEXOL 350 MG/ML 100 ML (OMNIPAQUE 350) VIAL IV ONE; -NS 100 ML (IVPB) BAG IV ONE; -OMEP40CA27 PO; +OMEP40CA6 PO; -RT-ALBUTEROL SULF 2.5 MG/3 ML PRE-MIX VIAL INH ONE
--- NOTE | 2021-07-13 12:01 | Diagnostic Imaging Report ---
INDICATION: Routine screening. COMPARISON is made with prior mammograms 09/02/2018 and 09/04/2016. 2-D and 3-D bilateral screening mammography was performed with CAD. Both breasts are heterogeneously dense, limiting the sensitivity of mammography. Benign-appearing nodules in the outer portions of both breasts appears stable. No spiculated mass or malignant-appearing microcalcifications are seen. Axillae are unremarkable. IMPRESSION: BI-RADS Category 2. No mammographic features suspicious for malignancy are identified. ACR BI-RADS Category 2: Benign findings. Result letter will be mailed to the patient. Note: At least 10% of breast cancer is not imaged by mammography. Dictated by: Dictated on workstation # [id number]
== END ==
LOC: RAD 11:06
PROVIDERS: ATTEND Nurse Practitioner Family
DX: Z12.31 Encounter for screening mammogram for malignant neoplasm of breast (principal)
CPT/HCPCS: 77063; 77067

== ENCOUNTER → 2023-02-26 | Outpatient (CLI) | payer MEDICARE ==
[~2023-02-26] MED LIST changes: +ALBU8.5H6 IH; +CYCL10TA25 PO; -FLUO20CA46 PO; +FLUO20CA48 PO; +MONT-40 PO; -MONT10TA32 PO; +OMEP20TA56 PO; -OMEP20TA7 PO; -RT-ALBUINH IH
--- NOTE | 2023-02-26 13:46 | Diagnostic Imaging Report ---
INDICATION: Routine screening. COMPARISON: 07/13/2021 and 09/02/2018. TECHNIQUE: 2D and 3D bilateral screening mammography was performed with CAD. FINDINGS: Both breasts are heterogeneously dense, limiting the sensitivity of mammography. Intraparenchymal lymph nodes in the outer portions of both breasts appear stable. No spiculated mass or malignant appearing microcalcifications are seen. The axillae are unremarkable. IMPRESSION: No mammographic features suspicious for malignancy are identified. ACR BI-RADS Category 2: Benign findings. Result letter will be mailed to the patient. Note: At least 10% of breast cancer is not imaged by mammography. Dictated by: Dictated on workstation # [id number]
== END ==
LOC: RAD 12:11
PROVIDERS: ATTEND Physician Assistant
DX: Z12.31 Encounter for screening mammogram for malignant neoplasm of breast (principal)
CPT/HCPCS: 77063; 77067

== ENCOUNTER 2023-05-06 18:17 | Emergency (ER) | payer MEDICARE ==
[~2023-05-06] VITALS: Ht 160 cm; Wt 69.8 kg
[2023-05-06] MEDS ORDERED: NS IV 1000 ML 1,000 ML IV SCH (18:45)
[2023-05-06 18:55] LABS: BASOPHILS # (AUTO) 0.1 10^3/uL (0.0-0.1); BASOPHILS % (AUTO) 1 % (0-10); EOSINOPHILS # (AUTO) 0.2 10^3/uL (0.0-0.3); EOSINOPHILS % (AUTO) 2 % (0-10); HEMATOCRIT 43 % (35-52); HEMOGLOBIN 14.6 g/dL (11.5-16.0); LYMPHOCYTES # (AUTO) 2.8 10^3/uL (1.0-4.0); LYMPHOCYTES % (AUTO) 34 % (12-44); MEAN CORPUSCULAR HEMOGLOBIN 30 pg (25-34); MEAN CORPUSCULAR HGB CONC 34 g/dL (32-36); MEAN CORPUSCULAR VOLUME 87 fL (80-99); MEAN PLATELET VOLUME 10.1 fL (9.0-12.2); MONOCYTES # (AUTO) 0.6 10^3/uL (0.0-1.0); MONOCYTES % (AUTO) 7 % (0-12); NEUTROPHILS # (AUTO) 4.7 10^3/uL (1.8-7.8); NEUTROPHILS % (AUTO) 56 % (42-75); PLATELET COUNT 287 10^3/uL (130-400); WHITE BLOOD COUNT 8.4 10^3/uL (4.3-11.0)
[2023-05-06 19:11] LABS: CALCIUM 9.9 MG/DL (8.5-10.1)
[2023-05-06 19:15] LABS: CREATININE SERUM 0.93 MG/DL (0.60-1.30)
[2023-05-06 19:18] LABS: MAGNESIUM 2.1 MG/DL (1.6-2.4)
[2023-05-06 19:20] VITALS: BP_SYST 106; BP_SYST 114; BP_SYST 97; BP_DIAS 65; BP_DIAS 68
--- NOTE | 2023-05-06 19:32 | ED General ---
General Chief Complaint: Exposure Stated Complaint: OVERHEATED/SOA/HEADACHE/COLD SWEATS/DIZZY Nursing Triage Note: Patient to ER via POV ambulatory to room 09 w c/o dizziness, cold sweats, SOB, and headache. Patient states she was shopping and running errands from [id number]. Symptoms started shortly after 1600. "I thought sitting in the air conditioning would make me feel better but it just made me feel really cold." patient diaphoretic on arrival. Source of Information: Patient Exam Limitations: No Limitations (TRACI TAYLOR) History of Present Illness Date Seen by Provider: May 06, 2023 Time Seen by Provider: 18:50 Initial Comments Our patient is a 67 yo F who presented to the emergency department for headache, SOB, and diaphoresis that occurred after getting home from running errands earlier in the day. She states that her symptoms started around 4'oclock directly after bringing in groceries from her car. In addition, she notes lightheadedness that was partially relieved by sitting down. She states that her headache, SOB, and diaphoresis have improved since they originally began but these symptoms are still present. She originally though that sitting in the air conditioning would help with her condition but this only made her feel cold. She notes that she has only drank two 20 oz bottles of water today and was outside for a significant amount of time today. She notes no previous similar occurrences. She has a previous medical history of asthma and COPD and has been experiencing some chest tightness that is noticeable upon deep inspiration. She denies chest pain, abdominal pain, nausea, vomiting, constipation, diarrhea, changes in vision, hearing loss, or urinary symptoms. She states that she had a UTI last month that was successfully treated but notes no recent sick contacts or other acute illnesses. Timing/Duration: 4-6 Hours Severity: Mild Modifying Factors: improves with Rest Associated Systoms: No Chest Pain; Cough, Diaphoresis, Fever/Chills, Headaches; No Nausea/Vomiting; Shortness of Air; No Syncope (TRACI TAYLOR) Allergies and Home Medications Allergies Coded Allergies: Sulfa (Sulfonamide Antibiotics) (Unverified Allergy, Unknown, 06/08/14) Patient Home Medication List Home Medication List Reviewed: Yes (OBDULIO FOSTER MD) Albuterol Sulfate (Ventolin Hfa) 1 Puff Puff, 2 PUFF IH Q4H PRN for SHORTNESS OF BREATH, (Reported) Entered as Reported by: CUCO CÁRDENAS on 07/23/19 1128 Amoxicillin/Potassium Clav (Augmentin 875-125 Tablet) 1 Each Tablet, 1 EACH PO BID Prescribed by: FRANCK TUCKER on 09/30/20 1218 Amoxicillin/Potassium Clav (Augmentin 875-125 Tablet) 1 Each Tablet, 1 EACH PO BID Prescribed by: KRZYSZTOF MEYER on 10/20/20 1443 Atorvastatin Calcium (Atorvastatin Calcium) 20 Mg Tablet, 20 MG PO HS, (Reported) Entered as Reported by: CUCO CÁRDENAS on 07/23/19 1128 Celecoxib (Celebrex) 100 Mg Capsule, 100 MG PO BID, (Reported) Entered as Reported by: CUCO CÁRDENAS on 10/08/19 1315 Cephalexin (Cephalexin) 500 Mg Tablet, 500 MG PO TID Prescribed by: OBDULIO BUAGH on 05/07/23 0001 Cetirizine HCl (Zyrtec) 10 Mg Tablet, 10 MG PO DAILY, (Reported) Entered as Reported by: CUCO CÁRDENAS on 07/23/19 1046 Fluoxetine HCl (Fluoxetine HCl) 20 Mg Capsule, 20 MG PO DAILY, (Reported) Entered as Reported by: DULCE AGUILAR on 07/29/20 1019 Fluoxetine HCl (Fluoxetine HCl) 60 Mg Tablet, 60 MG PO DAILY, (Reported) Entered as Reported by: DULCE AGUILAR on 09/28/20 1557 Fluticasone Propionate (Fluticasone Propionate) 16 Gm [place].susp, 2 SPRAYS NS BID PRN for ALLERGIES, (Reported) Entered as Reported by: JOYA VALENCIA on 01/28/16 0042 Fluticasone/Salmeterol (Advair 250-50 Diskus) 1 Each Blst.w.dev, 1 PUFF IH BID, (Reported) Entered as Reported by: CUCO CÁRDENAS on 07/23/19 1128 Furosemide (Furosemide) 20 Mg Tablet, 20 MG PO Q48H, (Reported) Entered as Reported by: DULCE AGUILAR on 07/29/20 1019 Gabapentin (Neurontin) 300 Mg Capsule, 300 MG PO TID, (Reported) Entered as Reported by: DULCE AGUILAR on 03/30/20 1528 Ipratropium/Albuterol Sulfate (Iprat-Albut 0.5-3(2.5) mg/3 ml) 3 Ml Ampul.neb, 3 ML IH Q6H PRN for SHORTNESS OF BREATH, (Reported) Entered as Reported by: DULCE AGUILAR on 03/30/20 1529 Levothyroxine Sodium (Levothyroxine Sodium) 25 Mcg Tablet, 37.5 MCG PO DAILY, (Reported) Entered as Reported by: CUCO CÁREDNAS on 07/23/19 1128 Meclizine HCl (Meclizine HCl) 25 Mg Tablet, 25 MG PO BID PRN for DIZZINESS, (Reported) Entered as Reported by: DULCE AGUILAR on 03/30/20 1525 Montelukast Sodium (Montelukast Sodium) 10 Mg Tablet, 10 MG PO HS, (Reported) Entered as Reported by: CUCO CÁRDENAS on 07/23/19 1128 Multivitamin (Multivitamins) 1 Each Tablet, 1 TAB PO DAILY, (Reported) Entered as Reported by: CUCO CÁRDENAS on 07/23/19 1046 Omeprazole (Omeprazole) 40 Mg Capsule.dr, 40 MG PO BID, (Reported) Entered as Reported by: DULCE AGUILAR on 09/28/20 1542 Oseltamivir Phosphate (Tamiflu) 75 Mg Cap, 75 MG PO BID Prescribed by: KRZYSZTOF MEYER on 10/20/20 1255 Quetiapine Fumarate (Seroquel) 100 Mg Tablet, 100 MG PO HS, (Reported) Entered as Reported by: CUCO CÁRDENAS on 07/23/19 1128 Trazodone HCl (Trazodone HCl) 50 Mg Tablet, 50-75 MG PO HS, (Reported) Entered as Reported by: DULCE AGUILAR on 03/30/20 1525 Umeclidinium Brm/Vilanterol Tr (Anoro Ellipta 62.5-25 Mcg INH) 1 Each Blst.w.dev, 1 EACH IH HS, (Reported) Entered as Reported by: DULCE AGUILAR on 09/28/20 1532 Review of Systems Review of Systems Constitutional: chills, diaphoresis, dizziness (Lightheadedness); No fever EENTM: No hearing loss, No blurred vision, No throat pain Respiratory: cough, dyspnea on exertion, short of breath Cardiovascular: No chest pain, No edema, No syncope Gastrointestinal: no symptoms reported; No abdominal pain, No constipation, No diarrhea, No nausea, No vomiting Genitourinary: no symptoms reported; No dysuria Musculoskeletal: no symptoms reported Skin: no symptoms reported Psychiatric/Neurological: Headache; Denies Numbness Hematologic/Lymphatic: No Symptoms Reported Immunological/Allergic: no symptoms reported (TRACI TAYLOR) Past Hajcmwz-[place]-Aoghgl Hx Patient Social History Tobacco Use?: No Substance use?: No Alcohol Use?: No (TRACI TAYLOR) Immunizations Up To Date Tetanus Booster (TDap): Unknown First/Initial COVID19 Vaccinat: unk COVID19 Vaccine 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 (TRACI TAYLOR) Seasonal Allergies Seasonal Allergies: Yes (TRACI TAYLOR) Past Medical History Surgeries: Yes (HIATAL HERNIA REPAIR, CARPAL TUNNEL; BRONCHOSCOPY) Abdominal, Appendectomy, Gallbladder, Hysterectomy, Orthopedic Respiratory: Yes Asthma, COPD Currently Using CPAP: No Currently Using BIPAP: No Cardiac: Yes High Cholesterol Neurological: No 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 Disorders: No CHEMIST BIOLOGICAL History: Hysterectomy, Menopausal Genitourinary: No Gastrointestinal: Yes Gastroesophageal Reflux, Hiatal Hernia Musculoskeletal: Yes Arthritis Endocrine: Yes Hypothyroidsim HEENT: No Loss of Vision: Bilateral Hearing Impairment: Denies Cancer: No Psychosocial: Yes Anxiety, Depression Integumentary: No Blood Disorders: No Adverse Reaction/Blood Tranf: No (TRACI TAYLOR) Family Medical History Cardiovascular disease 19 MOTHER Heart Disease (TRACI TAYLOR) Physical Exam Vital Signs Vital Signs - First Documented 05/06/23 18:28 Temp 37.6 Pulse 106 Resp 22 B/P (MAP) 116/87 (97) Pulse Ox 97 O2 Delivery Room Air (OBDULIO FOSTER MD) Vital Signs Capillary Refill : Less Than 3 Seconds (TRACI TAYLOR) Height, Weight, BMI Height: 5'2.00" Weight: 177lbs. 0oz. 80.471857zs; 27.00 BMI Method:Stated General Appearance: No Apparent Distress, WD/WN HEENT: PERRL/EOMI, Normal ENT Inspection, Pharynx Normal; No Pharyngeal Erythema, No Scleral Icterus (L), No Scleral Icterus (R) Neck: Normal Inspection, Non Tender, Supple; No JVD, No Lymphadenopathy (L), No Lymphadenopathy (R) Respiratory: Chest Non Tender, Lungs Clear, Normal Breath Sounds, No Accessory Muscle Use, No Respiratory Distress Cardiovascular: No Edema, No Gallop, No JVD, No Murmur, Normal Peripheral Pulses, Tachycardia (Mild) Gastrointestinal: Normal Bowel Sounds, Non Tender, Soft Rectal: Deferred Back: Normal Inspection Extremity: Normal Inspection, Non Tender, No Calf Tenderness, Slow Capillary Refill (3-4 seconds) Neurologic/Psychiatric: Alert, Oriented x3, Normal Mood/Affect Skin: Normal Color, Warm/Dry (TRACI TAYLOR) Progress/Results/Core Measures Suspected Sepsis SIRS Temperature: Pulse: 106 Respiratory Rate: 22 Laboratory Tests 05/06/23 18:50: White Blood Count 8.4 Blood Pressure 116 /87 Mean: 97 Laboratory Tests 05/06/23 18:50: Platelet Count 287 (TRACI TAYLOR) Results/Orders Lab Results Laboratory Tests Test 05/06/23 18:50 05/06/23 20:05 05/06/23 21:00 05/06/23 22:12 Range/Units White Blood Count 8.4 4.3-11.0 10^3/uL Red Blood Count 4.92 3.80-5.11 10^6/uL Hemoglobin 14.6 11.5-16.0 g/dL Hematocrit 43 35-52 % Mean Corpuscular Volume 87 80-99 fL Mean Corpuscular Hemoglobin 30 25-34 pg Mean Corpuscular Hemoglobin Concent 34 32-36 g/dL Red Cell Distribution Width 13.8 10.0-14.5 % Platelet Count 287 130-400 10^3/uL Mean Platelet Volume 10.1 9.0-12.2 fL Immature Granulocyte % (Auto) 0 % Neutrophils (%) (Auto) 56 42-75 % Lymphocytes (%) (Auto) 34 12-44 % Monocytes (%) (Auto) 7 0-12 % Eosinophils (%) (Auto) 2 0-10 % Basophils (%) (Auto) 1 0-10 % Neutrophils # (Auto) 4.7 1.8-7.8 10^3/uL Lymphocytes # (Auto) 2.8 1.0-4.0 10^3/uL Monocytes # (Auto) 0.6 0.0-1.0 10^3/uL Eosinophils # (Auto) 0.2 0.0-0.3 10^3/uL Basophils # (Auto) 0.1 0.0-0.1 10^3/uL Immature Granulocyte # (Auto) 0.0 0.0-0.1 10^3/uL Sodium Level 143 135-145 MMOL/L Potassium Level 3.4 L 3.6-5.0 MMOL/L Chloride Level 111 H 98-107 MMOL/L Carbon Dioxide Level 20 L 21-32 MMOL/L Anion Gap 12 5-14 MMOL/L Blood Urea Nitrogen 15 7-18 MG/DL Creatinine 0.93 0.60-1.30 MG/DL Estimat Glomerular Filtration Rate 68 BUN/Creatinine Ratio 16 Glucose Level 103 70-105 MG/DL Calcium Level 9.9 8.5-10.1 MG/DL Magnesium Level 2.1 1.6-2.4 MG/DL Total Creatine Kinase 75 29-168 U/L Troponin I < 0.028 < 0.028 <0.028 NG/ML Influenza Type A (RT-PCR) Not Detected Not Detecte Influenza Type B (RT-PCR) Not Detected Not Detecte SARS-CoV-2 RNA (RT-PCR) Not Detected Not Detecte Urine Color YELLOW Urine Clarity SL CLOUDY Urine pH 7.0 5-9 Urine Specific [place] 1.015 L 1.016-1.022 Urine Protein NEGATIVE NEGATIVE Urine Glucose (UA) NEGATIVE NEGATIVE Urine Ketones NEGATIVE NEGATIVE Urine Nitrite NEGATIVE NEGATIVE Urine Bilirubin NEGATIVE NEGATIVE Urine Urobilinogen 0.2 < = 1.0 MG/DL Urine Leukocyte Esterase 3+ H NEGATIVE Urine RBC (Auto) TRACE-I H NEGATIVE Urine RBC 0-2 /HPF Urine WBC 50-100 H /HPF Urine Squamous Epithelial Cells 0-2 /HPF Urine Crystals NONE /LPF Urine Bacteria MODERATE H /HPF Urine Casts PRESENT /LPF Urine Hyaline Casts 0-2 H /LPF Urine Mucus MODERATE H /LPF Urine Culture Indicated YES (OBDULIO FOSTER MD) My Orders Orders - OBDULIO FOSTER MD Basic Metabolic Panel (05/06/23 18:31) Cbc With Automated Diff (05/06/23 18:31) Creatine Kinase (05/06/23 18:31) Magnesium (05/06/23 18:31) Ua Culture If Indicated (05/06/23 18:31) Ed Iv/Invasive Line Start (05/06/23 18:31) Ns Iv 1000 Ml (Sodium Chloride 0.9%) (05/06/23 18:45) Troponin I Lamb (05/06/23 19:09) Ekg Tracing (05/06/23 19:09) Monitor-Rhythm Ecg Trace Only (05/06/23 19:09) Orthostatic Vital Signs (Adult (05/06/23 19:09) Lactated Ringers (Lr 1000 Ml Iv Solution (05/06/23 20:15) Troponin I Smita (05/06/23 21:00) Covid 19 Inhouse Test (05/06/23 20:07) Influenza A And B By Pcr (05/06/23 20:07) Chest Pa/Lat (2 View) (05/06/23 20:49) Urine Culture (05/06/23 22:12) Ceftriaxone Iv/Im (Rocephin Iv/Im) (05/06/23 23:03) Ondansetron Injection (Zofran Injectio (05/06/23 23:15) Lidocaine 2% Viscous 15 Ml (Xylocaine Vi (05/06/23 23:15) Antacid Suspension (Mylanta Suspension (05/06/23 23:15) (OBDULIO FOSTER MD) Medications Given in ED Current Medications Medications Dose Ordered Sig/Basilio Route Start Time Stop Time Status Last Admin Dose Admin Al Hydrox/Mg Hydrox/Simethicone 30 ml ONCE ONCE PO 05/06/23 23:15 05/06/23 23:16 DC 05/06/23 23:16 30 ML Lactated Ringer's 1,000 ml @ 0 mls/hr Q0M ONCE IV 05/06/23 20:15 05/06/23 20:16 DC 05/06/23 20:31 1,000 MLS/HR Lidocaine HCl 15 ml ONCE ONCE PO 05/06/23 23:15 05/06/23 23:16 DC 05/06/23 23:17 15 ML Ondansetron HCl 4 mg ONCE ONCE IVP 05/06/23 23:15 05/06/23 23:16 DC 05/06/23 23:16 4 MG (OBDULIO FOSTER MD) Vital Signs/I&O 05/06/23 05/06/23 05/07/23 18:28 19:20 00:10 Temp 37.6 Pulse 106 68 Resp 22 22 B/P (MAP) 116/87 (97) 106/65 (79) 127/78 114/68 (83) 97/68 (78) Pulse Ox 97 93 O2 Delivery Room Air Room Air (OBDULIO FOSTER MD) Vital Signs/I&O Capillary Refill : Less Than 3 Seconds (TRACI TAYLOR) Blood Pressure Mean: 97 Progress Note : Progress Note Patient was interviewed and examined by me along with MS4. Labs were obtained and interpreted by me. CBC, CMP, serial troponins, and COVID-19 swabs were all unremarkable. Dry cough was noted during my exam prompting the COVID screening. Chest x-ray was unremarkable as reported by the radiologist. EKG demonstrated no ischemia or arrhythmias. Patient was hydrated with 2 L of IV fluid and noted improvement in her symptoms after hydration. She complained of "indigestion." This was treated with Zofran and GI cocktail with resolution. Urinalysis demonstrated significant pyuria which was treated with Rocephin prior to discharge. See discharge instructions for further discussion. (OBDULIO FOSTER MD) ECG Initial ECG Impression Date: May 07, 2023 Initial ECG Impression Time: 19:29 Initial ECG Rate: 68 Initial ECG Rhythm: Normal Sinus Comment Sinus rhythm with first-degree AV block with CT interval of 260 ms. No other abnormal intervals. No ST elevation or depression. Borderline left axis deviation. (OBDULIO FOSTER MD) Diagnostic Imaging Diagonstic Imaging: Xray Plain Films/CT/US/NM/MRI: chest Comments NAME: DEON SERVIN [facility] REC#: [id number] PT STATUS: REG ER : 1955 PHYSICIAN: OBDULIO FOSTER MD ADMIT DATE: 05/06/23/ER Signed Date of Exam:05/06/23 CHEST PA/LAT (2 VIEW) INDICATION: Shortness of breath EXAM: PA and lateral chest. FINDINGS: The heart size and pulmonary vascularity are normal. The lungs are clear. There are no effusions or pneumothoraces. IMPRESSION: Negative chest. Dictated by: Dictated on workstation # [id number] Dict: 05/06/232116 Trans: 05/06/232144 [facility] [id number] Interpreted by: LUZ MALDONADO MD Electronically signed by: LUZ MALDONADO MD 05/06/232144 (OBDULIO FOSTER MD) Departure Impression Primary Impression: Urinary tract infection Qualified Codes: N39.0 - Urinary tract infection, site not specified Additional Impressions: Acute headache Qualified Codes: R51.9 - Headache, unspecified Lightheadedness Hypovolemia Epigastric pain Disposition: HOME, SELF-CARE Condition: Improved Departure-Patient Inst. Decision time for Depature: 23:59 (OBDULIO FOSTER MD) Referrals: [facility] (PCP/Family) Primary Care Physician Patient Instructions: Urinary Tract Infection, Adult ED Add. Discharge Instructions: Drink plenty of clear liquids to stay well-hydrated. If you are still taking furosemide, please skip your next dose. You have a notable urinary tract infection. You received a dose of antibiotics in the emergency room. Please start your oral antibiotics as soon as possible. Antibiotics were sent to [facility] [place]. They open on May 07 at 9 AM. Please make a follow-up with your primary care provider soon as possible. Call Saturday for an appointment. You need to review urine culture results with your primary care provider. They may be available as early as Saturday afternoon. Return to the ER if you have worsening symptoms despite following these instructions. All discharge instructions reviewed with patient and/or family. Voiced understanding. Scripts Cephalexin (Cephalexin) 500 Mg Tablet 500 MG PO TID, #20 TAB Prov: OBDULIO FOSTER MD 05/07/23 Copy Copies To 1: [facility]/TRACI BABIN May 06, 2023 19:32 OBDULIO FOSTER MD May 07, 2023 00:01
[2023-05-06 19:40] LABS: POTASSIUM 3.4 MMOL/L (3.6-5.0)
[2023-05-06] MEDS ORDERED: LACTATED RINGERS 1,000 ML IV ONE (20:15)
--- NOTE | 2023-05-06 21:21 | Diagnostic Imaging Report ---
INDICATION: Shortness of breath EXAM: PA and lateral chest. FINDINGS: The heart size and pulmonary vascularity are normal. The lungs are clear. There are no effusions or pneumothoraces. IMPRESSION: Negative chest. Dictated by: Dictated on workstation # [id number]
[2023-05-06 22:19] LABS: BILIRUBIN,URINE NEGATIVE (NEGATIVE); CLARITY,URINE SL CLOUDY; COLOR,URINE YELLOW; GLUCOSE, URINE (UA) NEGATIVE (NEGATIVE); KETONES,URINE NEGATIVE (NEGATIVE); LEUKOCYTE ESTERASE ,URINE 3+ (NEGATIVE); NITRITE,URINE NEGATIVE (NEGATIVE); PROTEIN,URINE NEGATIVE (NEGATIVE)
[2023-05-06 22:29] LABS: BACTERIA,URINE MODERATE /HPF; HYALINE CASTS, URINE 0-2 /LPF; RBC,URINE 0-2 /HPF; SQUAMOUS EPITHELIAL CELL,UR 0-2 /HPF; WBC,URINE 50-100 /HPF
[2023-05-06] MEDS ORDERED: cefTRIAXone IV/IM 1,000 MG in NS (IVPB) 50 ML IV STA (23:03)
[2023-05-06] MEDS ORDERED: LIDOCAINE 2% VISCOUS 15 ML UDC PO ONE (23:15)
[2023-05-06] MEDS ORDERED: ONDANSETRON 4 MG/2 ML (SDV) Z0FRAN IVP ONE (23:15)
[2023-05-06] MEDS ORDERED: ANTACID SUSP 30 ML UDC (MYLANTA) PO ONE (23:15)
[2023-05-07] MEDS ORDERED: CEPH500T PO (00:01)
[2023-05-07 00:10] VITALS: BP 127/78
== END 2023-05-07 00:10 | disposition home or self-care (01) ==
LOC: EDUNIT# 18:17 → ER 18:19
DX: N39.0 Urinary tract infection, site not specified (principal); E86.1 Hypovolemia; R51.9 Headache, unspecified; R10.13 Epigastric pain; I44.0 Atrioventricular block, first degree; Z90.49 Acquired absence of other specified parts of digestive tract; Z88.2 Allergy status to sulfonamides; Z20.822 Contact with and (suspected) exposure to COVID-19
CPT/HCPCS: 36415; 71046; 80048; 81000; 82550; 83735; 84484; 85025; 87088; 87636; 93005; 93041

== ENCOUNTER → 2023-05-21 | Outpatient (CLI) | payer MEDICARE ==
[~2023-05-21] MED LIST changes: +CEPH500T PO
--- NOTE | 2023-05-21 15:41 | Diagnostic Imaging Report ---
INDICATION: Postmenopausal state COMPARISON: None available FINDINGS: AP Spine L2-L4: [BMD (g/cm2): 0.905] [T-Score: -2.5] [Z-Score: -1.0] [BMD Previous: NA] [BMD % Change: NA] LT Hip Neck: [BMD (g/cm2): 0.647] [T-Score: -2.8] [Z-Score: -1.4] LT Hip Total: [BMD (g/cm2):0.755] [T-Score:-2.0] [Z-Score: -0.9] [BMD Previous: NA] [BMD % Change: NA] RT Hip Neck: [BMD (g/cm2):0.635] [T-Score:-2.9] [Z-Score:-1.5] RT Hip Total: [BMD (g/cm2):0.741] [T-score:-2.1] [Z-Score:-1.0] [BMD Previous:NA] [BMD % Change:NA] *Indicates significant change from prior examination based on 95% confidence level. World Health Organization criteria for BMD interpretation classify patients as Normal (T-score at or above -1.0), Osteopenic (T-score between -1.0 and -2.5) or Osteoporotic (T-score at or below -2.5). LIMITATIONS AND MODIFICATION: None. IMPRESSION: 1. Osteoporosis. 2. Baseline examination. 3. See below National Osteoporosis Foundation guidelines on when to potentially initiate pharmacologic therapy. Based on the National Osteoporosis Foundation Guidelines, pharmacologic treatment should be initiated in any of the following, unless clinical conditions suggest otherwise: * Any patient with prior fragility fracture of the hip or vertebrae. A spine fracture indicates 5X risk for subsequent spine fracture and 2X risk for subsequent hip fracture. * Osteoporosis (T-score <-2.5). * Postmenopausal women and men age 50 and older with low bone mass/osteopenia (T-score between -1.0 and -2.5) by DXA and 10-year major osteoporotic fracture greater than 20% or a 10-year probability of hip fracture greater than 3%. These fracture risks are supplied above in the FRAX score, if applicable. * Clinician judgement and/or patient preferences may indicate treatment for people with 10-year fracture probabilities above or below these levels. Dictated by: Dictated on workstation # [id number]
== END ==
LOC: RAD 13:42
PROVIDERS: ATTEND Physician Assistant
DX: Z13.820 Encounter for screening for osteoporosis (principal); M81.0 Age-related osteoporosis without current pathological fracture; Z78.0 Asymptomatic menopausal state
CPT/HCPCS: 77080